=== PATIENT | female | born 1980 | race Hispanic/Latino ===

== ENCOUNTER 2017-03-17 09:09 | Inpatient (IN) | payer OTHER ==
[2017-03-17 09:10] VITALS: BMI 17.8
--- NOTE | 2017-03-17 11:05 | ED PDOC ---
Arrival/HPI - General Chief Complaint: Cough, Cold, Congestion Time Seen by Provider: 03/17/17 10:40 Historian: Patient - History of Present Illness Narrative History of Present Illness (Text): 03/17/17 11:07 36 y/o female, pmh including AIDS/Hep C/pneumonia/asthma vs. copd, allergic to penicillin only/Levaquin only, not allergic to macrolide or bactrim ds as she took these two class of medications before with no adverse/allergic reaction, c/ o coughing/wheezing/fever and shortness of breath x 1 week. Pt. stated that she has been having subjective low grade fever with cough for the past 1 week which later progress to wheezing and shortness of breath, not relief with the albuterol MDI/nebulizer at home, no leg swelling, no recent traveling for the past 6 weeks, no abdominal or pelvic pain, no dysuria, no vaginal bleeding, no other medical or psychological complaints. Pt. stated that she tried outpatient z-pack already for 1 week with no relief. Past Medical History - Provider Review Nursing Documentation Reviewed: Yes - Infectious Disease Hx of Infectious Diseases: None - Tetanus Immunization Tetanus Immunization: Unknown - Cardiac Hx Cardiac Disorders: No - Pulmonary Hx Respiratory Disorders: Yes Hx Asthma: Yes Hx Bronchitis: Yes Hx Chronic Obstructive Pulmonary Disease (COPD): Yes Hx Pneumonia: Yes - Neurological Hx Migraine: Yes - HEENT Hx Macular Degeneration: Yes - Renal Hx Renal Disorder: No - Endocrine/Metabolic Hx Endocrine Disorders: No - Hematological/Oncological Hx Blood Disorders: Yes Hx AIDS: Yes Hx Hepatitis C: Yes (IVDU) - Integumentary Hx Dermatological Disorder: Yes - Musculoskeletal/Rheumatological Hx Musculoskeletal Disorders: Yes Hx Back Pain: Yes Other/Comment: SCOLIOSIS - Gastrointestinal Hx Gastrointestinal Disorders: Yes Hx Nausea: Yes Hx Vomiting: Yes - Genitourinary/Gynecological Hx Genitourinary Disorders: Yes Hx Urinary Tract Infection: Yes - Psychiatric Hx Psychophysiologic Disorder: Yes Hx Anxiety: Yes Hx Substance Use: Yes (HEROIN, COCAINE) - Past Surgical History Past Surgical History: No Previous - Surgical History Other/Comment: right anterior neck SX - Anesthesia Hx Anesthesia: Yes - Suicidal Assessment Feels Threatened In Home Enviroment: No Family/Social History - Physician Review Nursing Documentation Reviewed: Yes Family/Social History: Unknown Family HX Smoking Status: Current Some Days Smoker Hx Alcohol Use: No Hx Substance Use: Yes (HEROIN, COCAINE) Substance used: herion, cocaine Hx Substance Use Treatment: No Allergies/Home Meds Allergies/Adverse Reactions: Allergies levofloxacin [From Levaquin] Allergy (Verified 03/17/17 10:46) RASH Penicillins Allergy (Verified 03/17/17 10:46) RASH flexeril Adverse Reaction (Uncoded 03/17/17 10:46) RASH Home Medications: Home Meds Medication Instructions Recorded Confirmed Methadone 110 mg PO DAILY 08/18/14 03/17/17 Albuterol 0.083% [Albuterol 0.083% 3 ml NEB Q4 PRN 03/17/17 03/17/17 Inhal Donna (2.5 mg/3 ml) UD] Elviteg/Emily/Emtric/Tenofo Ala 1 tab PO DAILY 03/17/17 03/17/17 [Genvoya Tablet] Ibuprofen [Motrin Tab] 800 mg PO TID 03/17/17 03/17/17 Review of Systems - Review of Systems Constitutional: Fatigue, Fevers Eyes: absent: Vision Changes ENT: absent: Hearing Changes Respiratory: SOB, Cough, Sputum, Wheezing Cardiovascular: absent: Chest Pain Gastrointestinal: absent: Abdominal Pain, Nausea, Vomiting Musculoskeletal: absent: Arthralgias, Back Pain, Neck Pain, Myalgias Skin: absent: Rash, Pruritis, Skin Lesions, Cellulitis, Other Neurological: absent: Dizziness, Focal Weakness, Gait Changes, Speech Changes, Facial Droop, Disequilibrium, Seizure Psychiatric: absent: Anxiety Physical Exam Vital Signs Reviewed: Yes Vital Signs Temp Pulse Resp BP Pulse Ox 03/17/17 16:02 75 18 122/63 98 03/17/17 14:25 79 18 124/65 98 03/17/17 13:47 89 18 126/67 98 03/17/17 12:33 98.7 F 97 H 18 128/69 98 03/17/17 11:21 102 H 18 132/72 97 03/17/17 10:05 99.1 F 105 H 19 88 L Temperature: Afebrile Blood Pressure: Normal Pulse: Tachycardic Respiratory Rate: Normal Appearance: Positive for: Well-Appearing, Non-Toxic, Ill-Appearing, Uncomfortable Pain Distress: None Mental Status: Positive for: Alert and Oriented X 3 - Systems Exam Head: Present: Atraumatic, Normocephalic Pupils: Present: PERRL Extroacular Muscles: Present: EOMI Conjunctiva: Present: Normal Mouth: Present: Moist Mucous Membranes Pharnyx: Present: Other (there is no obvious thrush noted on the back of the pharynx. ). No: ERYTHEMA, EXUDATE, TONSILS ENLARGED, Peritonsilar Swelling Neck: Present: Normal Range of Motion Respiratory/Chest: Present: Clear to Auscultation, Good Air Exchange, Wheezes, Decreased Breath Sounds, Rhonchi, Other (decreased aeration bilaterally with wheezing/rhonchis). No: Respiratory Distress, Accessory Muscle Use, Rales, Retracting, Tachypneic, Tender to Palpation Cardiovascular: Present: Regular Rate and Rhythm, Normal S1, S2, Other (no pedal edema). No: Murmurs Abdomen: Present: Normal Bowel Sounds. No: Tenderness, Distention, Peritoneal Signs, Rebound, Guarding Back: Present: Normal Inspection Upper Extremity: Present: Normal Inspection. No: Cyanosis, Edema Lower Extremity: Present: Normal Inspection. No: Edema Neurological: Present: GCS=15, CN II-XII Intact, Speech Normal Skin: Present: Warm, Dry, Normal Color. No: Rashes Psychiatric: Present: Alert, Oriented x 3, Normal Insight, Normal Concentration Medical Decision Making ED Course and Treatment: 03/17/17 11:05 -labs/ua/blood culture/d-dimer -ekg -chest xray -IV solumedrol/duoneb -insulator helper -will admit the patient 03/17/17 13:32 -Labs are non-significant, negative dimer -Chest x-ray show bilateral infiltrate which I am clinically concerning about PCP pneumonia, rocephine and bactrim ds ordered. -EKG show NSR @ 96 BPM, no ST elevation or depression, no T wave inversion. -Wheezing resolved, mild rhonchi resolved, discussed about the labs/radiology results, pt. agreed to be admitted. -Her ambulating oxygen was 88 on room air, after rest and while receiving nebulizer which it improved to 97% room air. 03/17/17 14:10 -I spoke to Dr. Carter, discussed about the case and he will accept the case, request Dr. Chou for routine consult. -I discussed with DR. Oh and he will put in the admission order. - Critical Care Critical Care Minutes: 30 minutes Critical Care Time: Excluding Proc Time, Unstable Narrative Critical Care (Text): 03/17/17 16:24 Hypoxic @ 88 Percent room air, nebulizer x 3 with solumedrol, insulator helper. - Lab Interpretations Lab Results: 03/17/17 11:40 03/17/17 11:40 Lab Results 03/17/17 11:40: D-Dimer, Quantitative 0.35 03/17/17 11:40: Sodium 138, Potassium 4.3, Chloride 106, Carbon Dioxide 26, Anion Gap 10, BUN 18, Creatinine 0.8, Est GFR ( Amer) > 60, Est GFR (Non- Af Amer) > 60, Random Glucose 81, Calcium 9.2, Total Bilirubin 0.4, AST 27, ALT 23, Alkaline Phosphatase 67, NT-Pro-B Natriuret Pep 188, Total Protein 8.4 H, Albumin 3.4, Globulin 5.0, Albumin/Globulin Ratio 0.7 L 03/17/17 11:40: WBC 5.3, RBC 4.02, Hgb 10.6 L, Hct 31.4 L, MCV 78.1 L, MCH 26.4 , MCHC 33.8, RDW 15.4 H, Plt Count 170, MPV 9.5, Gran % 72.7 H, Lymph % (Auto) 15.7 L, Arroyo % (Auto) 11.2 H, Eos % (Auto) 0.2 L, Baso % (Auto) 0.2, Gran # 3.83 , Lymph # 0.8 L, Arroyo # 0.6, Eos # 0.0, Baso # 0.01 I have reviewed the lab results: Yes Interpretation: No clinic. lab abnormalty - RAD Interpretation Radiology Orders: 03/17/17 10:56 CHEST PORTABLE [RAD] Stat bilateral infiltrate and bronchial thickening. Periodontal Assistant: Radiologist - EKG Interpretation EKG Interpretation (Text): 03/17/17 14:52 NSR @ 96 BPM, no ST elevation or depression, no T wave inversion. Interpreted by ED Physician: Yes Type: 12 lead EKG - Medication Orders Current Medication Orders: Discontinued Medications Albuterol/Ipratropium (Duoneb 3 Mg/0.5 Mg (3 Ml) Ud) 3 ml IH Q15M EDSON Stop: 03/17/17 11:31 Last Admin: 03/17/17 11:21 Dose: 3 ml Ceftriaxone Sodium (Rocephin) 1 gm IM STAT STA PRN Reason: Protocol Stop: 03/17/17 13:19 Last Admin: 03/17/17 14:24 Dose: 1 gm Sodium Chloride (Sodium Chloride 0.9%) 1,000 mls @ 250 mls/hr IV .Q4H STA Stop: 03/17/17 14:55 Last Admin: 03/17/17 12:08 Dose: Methylprednisolone (Solu-Medrol) 125 mg IM STAT STA Stop: 03/17/17 12:01 Last Admin: 03/17/17 12:05 Dose: 125 mg - PA / CROWN ATTACHER / Resident Statement /DO has reviewed & agrees with the documentation as recorded. Disposition/Present on Arrival - Present on Arrival Any Indicators Present on Arrival: No History of DVT/PE: No History of Uncontrolled Diabetes: No Urinary Catheter: No History of Decub. Ulcer: No History Surgical Site Infection Following: None - Disposition Have Diagnosis and Disposition been Completed?: Yes Diagnosis: HIV (human immunodeficiency virus infection), Pneumonia Disposition: HOSPITALIZED Disposition Time: 13:32 Patient Plan: Admission Patient Problems: Current Active Problems Problem Status Onset HIV (human immunodeficiency virus infection) Acute Pneumonia Acute Condition: STABLE
[2017-03-17] MEDS: Albuterol-Ipratrop 3 mg / 0.5 (3 ml) UD IH SCH ×2 (11:20→11:21)
[2017-03-17] MEDS: Sodium Chloride 0.9% 1,000 ML IV STA ×2 (11:21→12:08)
[2017-03-17 11:41] LABS: ADD MANUAL DIFF? NO
[2017-03-17 11:55] LABS: ALB/GLOB RATIO 0.7 (1.1-1.8); ALKALINE PHOSPHATASE 67 U/L (38-133); ALT/SGPT 23 U/L (7-56); AST/SGOT 27 U/L (15-39); BILIRUBIN,TOTAL 0.4 mg/dL (0.2-1.3); BLOOD UREA NITROGEN 18 mg/dL (7-21); CALCIUM 9.2 mg/dL (8.4-10.5); CARBON DIOXIDE 26 mmol/L (21-33); CHLORIDE 106 mmol/L (98-107); GFR AFRICAN-AMERICAN > 60; GLUCOSE,RANDOM 81 mg/dL (70-110); POTASSIUM 4.3 mmol/L (3.6-5.0); SODIUM 138 mmol/L (132-148); TOTAL PROTEIN 8.4 g/dL (5.8-8.3)
--- NOTE | 2017-03-17 12:35 | RAD ---
HISTORY: cough x 1 week COMPARISON: 12/30/2016 FINDINGS: LUNGS: There is peribronchial thickening and perihilar infiltrates bilaterally PLEURA: No significant pleural effusion identified, no pneumothorax apparent. CARDIOVASCULAR: Normal. OSSEOUS STRUCTURES: No significant abnormalities. VISUALIZED UPPER ABDOMEN: Normal. OTHER FINDINGS: None. IMPRESSION: There is peribronchial thickening and perihilar infiltrates bilaterally
[2017-03-17 12:40] LABS: BASO # 0.01 K/mm3 (0.0-2.0); BASO % 0.2 % (0.0-3.0); EOS % 0.2 % (1.5-5.0); GRAN # 3.83 (1.4-6.5); GRAN % 72.7 % (50.0-68.0); HEMATOCRIT 31.4 % (36.0-48.0); LYMPH # 0.8 (1.2-3.4); LYMPH % 15.7 % (22.0-35.0); MEAN CELL VOLUME 78.1 fL (80.0-105.0); MEAN CORPUSCULAR HEMOGLOBIN 26.4 pg (25.0-35.0); MEAN CORPUSCULAR HGB CONC 33.8 g/dl (31.0-37.0); MEAN PLATELET VOLUME 9.5 fl (7.0-11.0); MONO # 0.6 (0.1-0.6); MONO % 11.2 % (1.0-6.0); PLATELET COUNT 170 10^3/uL (120.0-450.0); RED CELL DISTRIBUTION WIDTH 15.4 % (11.5-14.5); WHITE BLOOD COUNT 5.3 10^3/ul (4.5-11.0)
[2017-03-17] MEDS ORDERED: Tmp-Smz 800 mg-160 mg DS Tab PO STA (13:18)
[2017-03-17] MEDS ORDERED: cefTRIAXone (Rocephin) 1 gm Inj IM STA (13:18)
--- NOTE | 2017-03-17 18:36 | CARD ---
APPROVED REPORT EKG Measurement Heart [id number] NV [id number] <Conclusion> Normal sinus rhythm Normal ECG
[2017-03-17] MEDS ORDERED: Arformoterol 15 mcg/2 ml Inh Sol IH SCH (20:00)
[2017-03-17] MEDS ORDERED: Pneumococcal 23-Valent Vaccine IM ONE (21:12)
[2017-03-17] MEDS: MethylPREDNISolone 40 mg Vial IV SCH (21:25)
[2017-03-17] MEDS ORDERED: MethylPREDNISolone 40 mg Vial IVP SCH (22:00)
[2017-03-18] MEDS ORDERED: guaiFENesin DM 200 mg-20 mg/10 ml UD PO STA (01:02)
[2017-03-18] MEDS: Levalbuterol 0.63 MG/3 ML Inhal Soln UD IH PRN (01:25)
[2017-03-18] MEDS: MethylPREDNISolone 40 mg Vial IV SCH ×2 (05:26→21:59)
[2017-03-18] MEDS: Arformoterol 15 mcg/2 ml Inh Sol IH SCH ×2 (08:13→19:32)
[2017-03-18] MEDS: Budesonide 0.5 mg/2 ml Inhal Susp UD IH SCH ×2 (08:14→19:32)
[2017-03-18] MEDS: Atovaquone 750 mg/5 ml Susp UD PO SCH ×2 (09:51→17:47)
[2017-03-18] MEDS ORDERED: Azithromycin 500MG/NS 250ml 500 MG/250 ML BAG IVPB SCH (10:00)
--- NOTE | 2017-03-18 10:56 | CT ---
PROCEDURE: CT Chest without contrast HISTORY: rule out pneumonia COMPARISON: 12/10/2016 TECHNIQUE: Contiguous axial images were obtained through the chest without intravenous contrast enhancement. Sagittal and coronal reconstructions were performed. Radiation dose (DLP): 191 mGy-cm. This CT exam was performed using one or more of the following dose reduction techniques: Automated exposure control, adjustment of the mA and/or kV according to patient size, and/or use of iterative reconstruction technique. FINDINGS: LUNGS: There is improvement in the previously seen multi focal pneumonia. There is persistent peribronchial thickening and minimal interstitial changes at the lung bases. There is some linear scarring at the right lung base. MEDIASTINUM: Unremarkable thoracic aorta. No aneurysm. Normal sized heart. Main pulmonary artery unremarkable. No vascular congestion. No lymphadenopathy. PLEURA: No pleural fluid. No pneumothorax. BONES: No fracture. No destructive lesion. UPPER ABDOMEN: Grossly unremarkable. OTHER FINDINGS: None. IMPRESSION: There is improvement in the previously seen multi focal pneumonia. There is persistent peribronchial thickening and minimal interstitial changes at the lung bases. There is some linear scarring at the right lung base.
[2017-03-18] MEDS: Vancomycin 1gm in NS 250ml 1 GM/250 ML BAG IVPB SCH ×2 (11:53→20:47)
--- NOTE | 2017-03-18 17:49 | CP.PCM.CON ---
History of Present Illness - History of Present Illness History of Present Illness: 36 year old female with PMH of HIV/AIDS with last CD4 count at [facility] is 1, VL 254,000, COPD, came in to [facility] complaining of 1 week history of cough and SOB with associated low grade fever. She has been trying nebulizers and albuterol but is still having shortness of breath. The patient denies headache or dizziness, no chest pain, no abdominal pain, no sore throat, no rhinorrhea, no dysuria, no diarrhea, no dysphagia. In the ED, CXR showed perihilar infiltrates and Infectious Diseases consult is requested to further evaluate and manage. Review of Systems - Review of Systems All systems: reviewed and no additional remarkable complaints except (as per HPIwazz) Past Patient History - Infectious Disease Hx of Infectious Diseases: None - Tetanus Immunizations Tetanus Immunization: Unknown - Past Social History Smoking Status: Current Some Days Smoker - CARDIAC Hx Cardiac Disorders: Yes (hypotension) - PULMONARY Hx Respiratory Disorders: Yes (has nebulizer machine at home) Hx Asthma: Yes Hx Bronchitis: Yes Hx Chronic Obstructive Pulmonary Disease (COPD): Yes Hx Pneumonia: Yes - NEUROLOGICAL Hx Migraine: Yes - HEENT Hx Macular Degeneration: Yes - RENAL Hx Chronic Kidney Disease: No - ENDOCRINE/METABOLIC Hx Endocrine Disorders: No - HEMATOLOGICAL/ONCOLOGICAL Hx Blood Disorders: Yes (blood transfusion) Hx AIDS: Yes Hx Hepatitis C: Yes (IVDU) - INTEGUMENTARY Hx Dermatological Problems: Yes - MUSCULOSKELETAL/RHEUMATOLOGICAL Hx Musculoskeletal Disorders: Yes Hx Back Pain: Yes Other/Comment: SCOLIOSIS - GASTROINTESTINAL Hx Gastrointestinal Disorders: Yes - GENITOURINARY/GYNECOLOGICAL Hx Genitourinary Disorders: Yes Hx Urinary Tract Infection: Yes - PSYCHIATRIC Hx Psychophysiologic Disorder: Yes Hx Anxiety: Yes Other/Comment: hx ivdu/cocaine stopped 6 yrs ago on methadone program, smokes 1 ppd has not smoked in 4 days - SURGICAL HISTORY Other/Comment: right anterior neck SX for abcesses bx neg - ANESTHESIA Hx Anesthesia: Yes Meds Allergies/Adverse Reactions: Allergies Allergy/AdvReac Type Severity Reaction Status Date / Time levofloxacin [From Levaquin] Allergy RASH Verified 03/17/17 10:46 Penicillins Allergy RASH Verified 03/17/17 10:46 flexeril AdvReac RASH Uncoded 03/17/17 10:46 - Medications Medications: Current Medications Arformoterol Tartrate (Brovana) 15 mcg IH [id number] EDSON Budesonide (Pulmicort Respules) 0.5 mg IH [id number] [facility] Doxycycline Hyclate 100 mg/ (Sodium Chloride) 100 mls @ 100 mls/hr IVPB Q12 EDSON PRN Reason: Protocol Levalbuterol HCl (Xopenex) 0.63 mg IH [id number] PRN PRN Reason: Shortness of Breath Methadone HCl (Methadone) 110 mg PO DAILY [facility] Methylprednisolone (Solu-Medrol) 40 mg IV Q8 EDSON Physical Exam - Constitutional Appears: Non-toxic, No Acute Distress - Head Exam Head Exam: NORMAL INSPECTION - ENT Exam ENT Exam: Mucous Membranes Moist - Neck Exam Neck exam: Negative for: Lymphadenopathy, Meningismus - Respiratory Exam Respiratory Exam: Decreased Breath Sounds - Cardiovascular Exam Cardiovascular Exam: +S1, +S2 - GI/Abdominal Exam GI & Abdominal Exam: Soft. absent: Tenderness Results - Vital Signs Recent Vital Signs: Last Vital Signs Temp 98.7 F 03/17/17 16:00 Pulse 75 03/17/17 16:02 Resp 18 03/17/17 16:02 BP 122/63 03/17/17 16:02 Pulse Ox 98 03/17/17 16:02 - Labs Result Diagrams: 03/17/17 11:40 03/17/17 11:40 Assessment & Plan - Assessment and Plan (Free Text) Assessment: Assessment R/O pneumonia in this patient with HIV/ AIDS, with probable acute bronchitis HIV/AIDS with last CD4 count 25 COPD Plan started patient on Vancomycin, Azactam and Doxycycline pending sputum cx, blood cx Asked patient to bring her supply of her Genvoya for her HIV continued Mepron for PCP prophylaxis; will also add Zithromax qweekly for ARCELIA prophylaxis Will monitor clinically
[2017-03-18] MEDS ORDERED: guaiFENesin 100 mg/5 ml Syrup UD PO PRN (18:36)
[2017-03-18] MEDS: Aztreonam 1 Gm in NS 100mL 100 ML IVPB SCH ×2 (19:58→22:00)
[2017-03-18] MEDS: Sodium Chloride 0.9% 1,000 ML IV SCH (23:20)
--- NOTE | 2017-03-19 03:07 | CON ---
DATE: 03/18/2017 REFERRING PHYSICIAN: Dr. Carter. REASON FOR CONSULT: Cough, shortness of breath and pneumonia. HISTORY OF PRESENT ILLNESS: This is a 36-year-old female with known history of chronic obstructive l isabel disease, HIV positive, active smoker, history of substance abuse in the remote past. According t o patient, she had been having rhinitis, cough and shortness of breath, came to ER, received IV and i nhaled bronchodilator, antibiotics with some benefit, but continued persistent and have admitting in the hospital. Presently, sitting on the side of the bed, having dinner. Cough, shortness of breath and sputum production. No hemoptysis, no hematemesis, no hematuria, no diarrhea reported. PAST MEDICAL HISTORY: AIDS, chronic obstructive pulmonary disease, recurrent pneumonia, last CD4 cou nt being 1. ALLERGIES: ALLERGIC TO multiple medications including PREDNISONE, LEVAQUIN, ZITHROMAX AND FLEXERIL. FAMILY HISTORY: No significant cardiopulmonary disease reported. SOCIAL HISTORY: She is an active smoker. Denies any alcohol use and has a past medical history sign ificant for substance abuse. MEDICATIONS: She is on Azactam 1 g IV q. 8 hours, Brovana 15 mcg inhaled twice a day, doxycycline 10 0 mg twice a day, Mepron 750 mg twice a day, methadone 10 mg daily, Pulmicort inhaled twice a day, Ro bitussin 100 mg q. 4 hours p.r.n., Solu-Medrol 40 mg q. 8 hours, vancomycin 1 g IV q. 12 hours, Xopen ex inhaler q. 6 hours. REVIEW OF SYSTEMS: No headache, rhinitis, postnasal drip, cough, sputum production and shortness of breath. No chest pain, no nausea, no vomiting, diarrhea. No leg pain or leg swelling. PHYSICAL EXAMINATION: GENERAL: Sitting up in a bed, mild to moderate distress secondary to cough. VITAL SIGNS: Temperature is 98, heart rate is 61, respiratory rate is 20, blood pressure 98/67, puls e of on 2 liter nasal cannula. HEENT: Moist mucous membrane. No ulcer or oral thrush noted. NECK: Supple. No JVD. LUNGS: Has scattered rhonchi and wheezing. HEART: S1, S2. ABDOMEN: Soft, nontender. No organomegaly. EXTREMITIES: There is no edema. NEUROLOGIC: Awake, alert, follows simple commands. LABORATORY DATA: Shows hemoglobin 10.6, hematocrit 31.4, WBC 5.3, platelet is 170. 0.35. Sod ium 138, potassium 4.3, chloride 106, bicarbonate 26, BUN 18, creatinine 0.8, glucose is 81, calcium 9.2. AST 27, ALT 23, alkaline phosphatase is 67, and albumin 3.4. Procalcitonin 0.05. Microbiology : Blood cultures have been negative. CAT scan of the chest done today shows improvement in the prev iously seen multifocal pneumonia and there is a persistent peribronchial thickening and minimal inter stitial changes in the lung bases. Also has some right base scarring. IMPRESSION AND PLAN: Chronic obstructive lung disease, may have multilobar pneumonia, AIDS, hepatiti s C, anemia. The patient seen by infectious disease and started on broad spectrum antibiotics coveri ng healthcare-associated organism. Continue IV and inhaled bronchodilator. Gastric prophylaxis. Se quential compression device to lower extremity. Cara Barajas MD cc: [phone] TT: 03/19/2017 03:07:12 Confirmation # [id number] Dictation # [id number] mn
[2017-03-19] MEDS: Aztreonam 1 Gm in NS 100mL 100 ML IVPB SCH ×4 (05:49→23:12)
[2017-03-19] MEDS: MethylPREDNISolone 40 mg Vial IV SCH ×4 (05:49→23:13)
[2017-03-19] MEDS: Arformoterol 15 mcg/2 ml Inh Sol IH SCH ×2 (07:35→19:45)
[2017-03-19] MEDS: Budesonide 0.5 mg/2 ml Inhal Susp UD IH SCH ×2 (07:35→19:45)
--- NOTE | 2017-03-19 08:17 | PN ---
DATE: 03/18/2017 MAIN COMPLAINT: The patient feels less short of breath, less wheezing. She feels better than day of admission. She has no chest pain, no hemoptysis, no nausea, vomiting. Afebrile. PHYSICAL EXAMINATION: VITAL SIGNS: Temperature 97.5, heart rate 61, blood pressure is 98/67, respirations 18, saturation 9 6% on 2 L, 93% on room air. HEAD AND NECK: Normal. No JVD, no thyromegaly. CHEST: Clear, no wheezing. CARDIAC: First sound, second sound normal. ABDOMEN: Soft, nontender. EXTREMITIES: No edema. NEUROLOGIC: Normal. LABORATORY DATA: The patient had D-dimer was negative and she had a serology, RPR was negative. IMPRESSION AND PLAN: 1. Community-acquired pneumonia. Seen by ID and pulmonary. Continue current therapy. The patient already started on IV steroids. She is getting 40 mg IV q. 8. Also, patient started on IV antibioti c, Azactam 1 gram IV q. 8 hours and vancomycin 1 gram q. 12 hours in addition to the mepron or atovaq uone 750 mg p.o. b.i.d. in addition to doxycycline 100 mg b.i.d. Continue current therapy. Follow u p the patient clinically. Continue inhaled and IV bronchodilators. 2. Acute chronic obstructive pulmonary disease exacerbation. Continue therapy as above. 3. Human immunodeficiency virus/acquired immunodeficiency syndrome conditions. Will hold off on any antiretroviral therapy and will follow up clinically. 4. The patient also has low blood pressure. Will start the patient on IV fluids normal saline at 80 mL per hour and monitor her blood pressure. The patient is eating. 5. Anemia, multifactorial. Will do further workup as outpatient. For now, continue current therapy . Follow up clinically with the other consultants. Macario Carter MD cc: [phone] TT: 03/19/2017 08:17:11 Confirmation # [id number] Dictation # [id number]
[2017-03-19] MEDS: Vancomycin 1gm in NS 250ml 1 GM/250 ML BAG IVPB SCH ×2 (09:24→20:35)
[2017-03-19] MEDS: Atovaquone 750 mg/5 ml Susp UD PO SCH ×2 (09:30→17:56)
[2017-03-19] MEDS: Pantoprazole 40 mg EC Tab PO SCH (09:30)
--- NOTE | 2017-03-19 09:49 | HP ---
A 36-year-old female came in with a complaint of shortness of breath and cough. HISTORY OF PRESENT ILLNESS: This is a 36-year-old female. The patient is on multiple retroviral med icines, came in with short of breath, wheezing, coughing for the last few days, seems to be getting w orse. The patient has a history of COPD, has a history of recurrent lung infection, pneumonia and sh e is on multiple HIV medicines. She has a history of atypical mycobacterial infections in the past a nd denied any hemoptysis, denied any chills, no nausea or vomiting. ALLERGIES: LEVOFLOXACIN AND PENICILLIN, FLEXERIL. HOME MEDICATIONS: The patient takes inhalers, methadone 110 mg p.o. daily, ibuprofen 800 three times a day. She also gets elvitegravir/cobicistat/emtricitabine/tenofovir/alafenamide which is Genvoya t ablets. She takes 1 tablet daily. She takes albuterol at home. REVIEW OF SYSTEMS: As I mentioned in the present illness, she is weak. She has no energy. She has history of drug addictions. She is on methadone. She feels weak, tired. Sometimes, she gets wheezi ng. Sometimes, she gets a cough. No rectal bleeding, no hematuria, no focal weakness. SOCIAL HISTORY: She lives by herself. She has a boyfriend. She has 1 son and she does not drink. She does have history of heroin and cocaine and current Wednesday smoker. PHYSICAL EXAMINATION: VITAL SIGNS: The patient has a temperature of 98.7, heart rate 90, blood pressure is 95/60, respirat ions 21, and ____ 95% on room air. HEAD AND NECK: Normal. No JVD, no thyromegaly. CHEST: Bilateral wheeze. CARDIAC: First sound, second sound normal. ABDOMEN: Soft, nontender. EXTREMITIES: No edema. NEUROLOGIC: Normal. LABORATORY DATA: On admission, white count 5.3, hemoglobin 10.6, hematocrit 31.4, platelets 170. So dium 138, potassium 4.3, chloride 106, bicarb 26, BUN 18, creatinine 0.8. Liver function test is nor mal. Total protein 8.4, lilian phos 67. ProBNP 188. The patient also had a chest x-ray which shows t here is peribronchial thickening and perihilar infiltrates bilaterally. Had an EKG which shows normal sinus rhythm, normal EKG. IMPRESSION AND PLAN: This is a 36-year-old female and the patient is on multiple medications. The p marialuisa is a smoker with history of recurrent pneumonia in the past, came in with cough, short of caryn th, wheezing. We will admit the patient with. 1. Community-acquired pneumonia. 2. Acute chronic obstructive pulmonary disease exacerbation. We will start the patient on IV steroi ds, inhaled bronchodilators, pulmonary consult in addition to infectious disease consult for evaluati on. We will put the patient on doxycycline for now. The patient will need further antibiotic. We w ill get the infectious disease consultation to continue coverage for her underlying pneumonia. She d oes have ALLERGY TO LEVOFLOXACIN AND PENICILLIN. 3. Human immunodeficiency virus. We will hold off on any antiretroviral therapy at least now and wi ll follow up with the infectious disease consult. 4. Chronic addiction problem. Continue methadone 110 mg p.o. daily. Continue current treatment. Macario Carter MD cc: [phone] TT: 03/19/2017 09:48:30 tn
--- NOTE | 2017-03-19 13:19 | CP.PCM.PN ---
Subjective - Date & Time of Evaluation Date of Evaluation: 03/19/17 Time of Evaluation: 12:30 - Subjective Subjective: Pt has very poor veins,neds iv access. Objective - Vital Signs/Intake and Output Vital Signs (last 24 hours): Temp Pulse Resp BP Pulse Ox 97.6 F 50 L 20 94/59 L 98 03/19/17 08:25 03/19/17 08:25 03/19/17 08:25 03/19/17 08:25 03/19/17 08:25 Intake and Output: 03/19/17 03/19/17 06:59 18:59 Intake Total 1640 Balance 1640 - Medications Medications: Current Medications Arformoterol Tartrate (Brovana) 15 mcg IH [id number] [facility] Last Admin: 03/19/17 07:35 Dose: 15 mcg Atovaquone (Mepron) 750 mg PO BID [facility] Last Admin: 03/19/17 09:30 Dose: 750 mg Budesonide (Pulmicort Respules) 0.5 mg IH [id number] [facility] Last Admin: 03/19/17 07:35 Dose: 0.5 mg Guaifenesin (Robitussin) 100 mg PO Q4H PRN PRN Reason: Cough Doxycycline Hyclate 100 mg/ (Sodium Chloride) 100 mls @ 100 mls/hr IVPB Q12 EDSON PRN Reason: Protocol Last Admin: 03/19/17 09:30 Dose: 100 mls/hr Aztreonam (Azactam 1 Gm) 100 mls @ 100 mls/hr IVPB Q8 EDSON PRN Reason: Protocol Stop: 03/25/17 08:46 Last Admin: 03/19/17 05:49 Dose: 100 mls/hr Vancomycin HCl (Vancomycin 1gm) 1 gm in 250 mls @ 167 mls/hr IVPB Q12H EDSON PRN Reason: Protocol Last Admin: 03/19/17 09:24 Dose: 167 mls/hr Sodium Chloride (Sodium Chloride 0.9%) 1,000 mls @ 80 mls/hr IV .[id number] [facility] Last Admin: 03/18/17 23:20 Dose: 80 mls/hr Levalbuterol HCl (Xopenex) 0.63 mg IH [id number] PRN PRN Reason: Shortness of Breath Last Admin: 03/18/17 01:25 Dose: 0.63 mg Methadone HCl (Methadone) 110 mg PO DAILY [facility] Last Admin: 03/19/17 09:24 Dose: 110 mg Methylprednisolone (Solu-Medrol) 40 mg IV Q8 [facility] Last Admin: 03/19/17 05:49 Dose: 40 mg Pantoprazole Sodium (Protonix Ec Tab) 40 mg PO 0730 [facility] Last Admin: 03/19/17 09:30 Dose: 40 mg - Constitutional Appears: No Acute Distress, In Acute Distress Assessment and Plan - Assessment and Plan (Free Text) Assessment: Poor venous access Plan: Hep lock inserted R upper arm. # 24 angiocath used.
[2017-03-19] MEDS: Sodium Chloride 0.9% 1,000 ML IV SCH (14:21)
--- NOTE | 2017-03-19 16:48 | CP.PCM.PN ---
Subjective - Date & Time of Evaluation Date of Evaluation: 03/19/17 Time of Evaluation: 11:15 - Subjective Subjective: Patient is still coughing but it is less, no fevers overnight. Objective - Vital Signs/Intake and Output Vital Signs (last 24 hours): Temp Pulse Resp BP Pulse Ox 97.6 F 50 L 20 94/59 L 98 03/19/17 08:25 03/19/17 08:25 03/19/17 08:25 03/19/17 08:25 03/19/17 08:25 Intake and Output: 03/19/17 03/19/17 06:59 18:59 Intake Total 1640 540 Balance 1640 540 - Medications Medications: Current Medications Arformoterol Tartrate (Brovana) 15 mcg IH [id number] [facility] Last Admin: 03/19/17 07:35 Dose: 15 mcg Atovaquone (Mepron) 750 mg PO BID [facility] Last Admin: 03/19/17 09:30 Dose: 750 mg Budesonide (Pulmicort Respules) 0.5 mg IH [id number] [facility] Last Admin: 03/19/17 07:35 Dose: 0.5 mg Guaifenesin (Robitussin) 100 mg PO Q4H PRN PRN Reason: Cough Doxycycline Hyclate 100 mg/ (Sodium Chloride) 100 mls @ 100 mls/hr IVPB Q12 EDSON PRN Reason: Protocol Last Admin: 03/19/17 09:30 Dose: 100 mls/hr Aztreonam (Azactam 1 Gm) 100 mls @ 100 mls/hr IVPB Q8 EDSON PRN Reason: Protocol Stop: 03/25/17 08:46 Last Admin: 03/19/17 15:10 Dose: 100 mls/hr Vancomycin HCl (Vancomycin 1gm) 1 gm in 250 mls @ 167 mls/hr IVPB Q12H EDSON PRN Reason: Protocol Last Admin: 03/19/17 09:24 Dose: 167 mls/hr Sodium Chloride (Sodium Chloride 0.9%) 1,000 mls @ 80 mls/hr IV .[id number] [facility] Last Admin: 03/19/17 14:21 Dose: 80 mls/hr Levalbuterol HCl (Xopenex) 0.63 mg IH [id number] PRN PRN Reason: Shortness of Breath Last Admin: 03/18/17 01:25 Dose: 0.63 mg Methadone HCl (Methadone) 110 mg PO DAILY [facility] Last Admin: 03/19/17 09:24 Dose: 110 mg Methylprednisolone (Solu-Medrol) 40 mg IV Q8 [facility] Last Admin: 03/19/17 15:09 Dose: 40 mg Pantoprazole Sodium (Protonix Ec Tab) 40 mg PO 0730 [facility] Last Admin: 03/19/17 09:30 Dose: 40 mg - Constitutional Appears: Non-toxic, No Acute Distress - Head Exam Head Exam: NORMAL INSPECTION - ENT Exam ENT Exam: Mucous Membranes Moist - Neck Exam Neck Exam: absent: Meningismus - Respiratory Exam Respiratory Exam: Decreased Breath Sounds, Rales (scattered), Wheezes ( expiratory) - Cardiovascular Exam Cardiovascular Exam: +S1, +S2 - GI/Abdominal Exam GI & Abdominal Exam: Soft. absent: Tenderness Assessment and Plan - Assessment and Plan (Free Text) Plan: Assessment consider healthcare-associated pneumonia in this patient with HIV/ AIDS, with probable acute bronchitis as well HIV/AIDS with last CD4 count 25 COPD Plan continue Vancomycin, Azactam and Doxycycline day 2; blood cx are negative Asked patient to bring her supply of her Genvoya for her HIV continued Mepron for PCP prophylaxis; will also add Zithromax qweekly for ARCELIA prophylaxis Will monitor clinically
--- NOTE | 2017-03-19 19:43 | PN ---
DATE: 03/19/2017 REFERRING PHYSICIAN: Dr. Carter. SUBJECTIVE: She is sitting at the side of the bed, having lunch. Night was unremarkable. Still has a cough and shortness of breath. No nausea, no vomiting, no diarrhea. No leg pain or leg swelling. OBJECTIVE: GENERAL: In no acute distress. VITAL SIGNS: Temperature is 98, heart rate is 50, respiratory rate is 20, blood pressure 94/59 and p ulse ox 98% on 2 liters nasal cannula. HEENT: Moist mucous membrane. No ulcer or oral thrush noted. NECK: Supple. No JVD. LUNGS: Has a prolonged expiratory phase with wheezing. HEART: S1, S2. ABDOMEN: Soft, nontender. No organomegaly. EXTREMITIES: There is no edema. NEUROLOGIC: Awake, alert, follows simple commands. MEDICATIONS: She is on Azactam 1 gram q.8 hours, Brovana 15 mcg inhaled twice a day, doxycycline 100 mg twice a day, Mepron 750 mg twice a day, methadone 110 mg daily, Protonix 40 mg daily, Pulmicort i nhaled twice a day, Robitussin 100 mg q.4 hours p.r.n., IV fluid normal saline at 80 mL per hour, Donna u-Medrol 40 mg IV q.8 hours, vancomycin 1 g IV q.12 hours, Xopenex inhaler q.6 hours, Zithromax 500 m g daily. LABORATORY DATA: Shows procalcitonin 0.05. Cryptococcus antigen is not detected. RPR is nonreactiv e. Microbiology: Blood cultures have been negative. Had a CAT scan of the chest done, which shows improvement in the previously seen multifocal pneumonia and there is a persistent peribronchial thick ening and minimal interstitial changes in both lung bases. IMPRESSION AND PLAN: Chronic obstructive lung disease, may have pneumonia, acquired immunodeficiency syndrome, hepatitis C, anemia. Continue IV and inhaled bronchodilator. Continue antibiotics. Chastity veena prophylaxis and deep venous thrombosis prophylaxis. The patient is urged to stop smoking. Thank you and will follow with you. Cara Barajas MD cc: [phone] TT: 03/19/2017 19:42:50 Confirmation # [id number] Dictation # [id number] dn
[2017-03-20] MEDS: Levalbuterol 0.63 MG/3 ML Inhal Soln UD IH PRN (03:14)
[2017-03-20] MEDS: MethylPREDNISolone 40 mg Vial IV SCH ×3 (06:03→22:10)
[2017-03-20] MEDS: Aztreonam 1 Gm in NS 100mL 100 ML IVPB SCH ×3 (06:03→22:17)
[2017-03-20] MEDS: Arformoterol 15 mcg/2 ml Inh Sol IH SCH ×2 (07:38→20:40)
[2017-03-20] MEDS: Budesonide 0.5 mg/2 ml Inhal Susp UD IH SCH ×2 (07:38→20:40)
[2017-03-20] MEDS: Acetylcysteine 20% Inhal Soln (4ml) IH SCH (08:00)
[2017-03-20] MEDS: Pantoprazole 40 mg EC Tab PO SCH (08:19)
[2017-03-20 08:47] VITALS: RESP 20
[2017-03-20] MEDS: Atovaquone 750 mg/5 ml Susp UD PO SCH ×2 (09:16→17:23)
[2017-03-20] MEDS: Vancomycin 1gm in NS 250ml 1 GM/250 ML BAG IVPB SCH ×2 (09:20→20:42)
[2017-03-20] MEDS: Sodium Chloride 0.9% 1,000 ML IV SCH ×2 (09:26→13:04)
[2017-03-20] MEDS ORDERED: Acetylcysteine 20% Inhal Sol (30ml) IH SCH (10:00)
[2017-03-20] MEDS: Enoxaparin 40 mg Syringe SC SCH (10:04)
--- NOTE | 2017-03-20 10:07 | PN ---
DATE: 03/19/2017 DATE: 03/19/2017. The patient complains of cough and phlegm ____. She complained of ____ and short of breath with mild exertion. She has no chest pain, no fever. PHYSICAL EXAMINATION: VITAL SIGNS: Temperature 98, heart rate 54, blood pressure 94/59, respirations 20, saturation 98%. HEAD AND NECK: Normal. No JVD, no thyromegaly. CARDIAC: First and second sounds normal. CHEST: No wheeze, but there is basial crepitations on the bases of both lungs. ABDOMEN: Soft, nontender. EXTREMITIES: No edema. NEUROLOGIC: Normal. LABORATORY DATA: Noted for procalcitonin 0.05. IMPRESSION AND PLAN: 1. Community-acquired pneumonia in a 36-year-old female with the acquired immune deficiency syndrome on multiple medications for human immunodeficiency virus. At this time we will continue current IV antibiotic. The patient is getting atovaquone or mepron 750 b.i.d. Continue on Azactam, vancomycin and doxycycline. 2. Chronic lung disease, chronic obstructive pulmonary disease, sputum production. We will give the patient Mucomyst. We will give IV fluid at 100 mL per hour. We will follow up clinically. 3. Human immunodeficiency virus status. The patient currently off any antiretroviral medications, se ems stable. Will continue current treatment. 4. Chronic addiction. Currently on methadone 110. Continue current treatment. Continue gastrointestinal and deep venous thrombosis prophylaxis. The patient also currently for [employer] D getting Solu-Medrol and she has Protonix for deep venous thrombosis prophylaxis. We will add also heparin subQ, or Lovenox. Macario Carter MD cc: [phone] TT: 03/20/2017 10:06:38 Confirmation # [id number] Dictation # [id number] sary
--- NOTE | 2017-03-20 12:14 | CP.PCM.PN ---
Subjective - Date & Time of Evaluation Date of Evaluation: 03/20/17 Time of Evaluation: 11:59 - Subjective Subjective: Patient has very poor veins.She needs iv access. Objective - Vital Signs/Intake and Output Vital Signs (last 24 hours): Temp Pulse Resp BP Pulse Ox 97.9 F 50 L 20 102/63 97 03/20/17 06:00 03/20/17 06:00 03/20/17 06:00 03/20/17 06:00 03/20/17 06:00 Intake and Output: 03/20/17 03/20/17 06:59 18:59 Intake Total 0 Balance 0 - Medications Medications: Current Medications Acetylcysteine (Acetylcysteine 20%) 3 ml IH BIDRESP EDSON Arformoterol Tartrate (Brovana) 15 mcg IH [id number] [facility] Last Admin: 03/20/17 07:38 Dose: 15 mcg Atovaquone (Mepron) 750 mg PO BID EDSON Last Admin: 03/20/17 09:16 Dose: 750 mg Azithromycin (Zithromax) 1,200 mg PO QWK EDSON PRN Reason: Protocol Budesonide (Pulmicort Respules) 0.5 mg IH [id number] [facility] Last Admin: 03/20/17 07:38 Dose: 0.5 mg Enoxaparin Sodium (Lovenox) 40 mg SC DAILY EDSON PRN Reason: Protocol Guaifenesin (Robitussin) 100 mg PO Q4H PRN PRN Reason: Cough Last Admin: 03/20/17 03:08 Dose: 100 mg Doxycycline Hyclate 100 mg/ (Sodium Chloride) 100 mls @ 100 mls/hr IVPB Q12 EDSON PRN Reason: Protocol Last Admin: 03/20/17 09:16 Dose: 100 mls/hr Aztreonam (Azactam 1 Gm) 100 mls @ 100 mls/hr IVPB Q8 EDSON PRN Reason: Protocol Stop: 03/25/17 08:46 Last Admin: 03/20/17 06:03 Dose: 100 mls/hr Vancomycin HCl (Vancomycin 1gm) 1 gm in 250 mls @ 167 mls/hr IVPB Q12H EDSON PRN Reason: Protocol Last Admin: 03/20/17 09:20 Dose: 167 mls/hr Sodium Chloride (Sodium Chloride 0.9%) 1,000 mls @ 80 mls/hr IV .[id number] [facility] Last Admin: 03/20/17 09:26 Dose: 80 mls/hr Levalbuterol HCl (Xopenex) 0.63 mg IH [id number] PRN PRN Reason: Shortness of Breath Last Admin: 03/20/17 03:14 Dose: 0.63 mg Methadone HCl (Methadone) 110 mg PO DAILY [facility] Last Admin: 03/20/17 09:17 Dose: 110 mg Methylprednisolone (Solu-Medrol) 40 mg IV Q8 [facility] Last Admin: 03/20/17 06:03 Dose: 40 mg Pantoprazole Sodium (Protonix Ec Tab) 40 mg PO 0730 [facility] Last Admin: 03/20/17 08:19 Dose: 40 mg - Constitutional Appears: No Acute Distress Assessment and Plan - Assessment and Plan (Free Text) Assessment: Poor venous access Plan: Hep lock inserted in the R wrist. # 24 angiocath used.
--- NOTE | 2017-03-20 14:02 | PN ---
DATE: 03/20/2017 The patient is in bed in no acute distress, nontoxic. PHYSICAL EXAMINATION: VITAL SIGNS: Temperature is 97, blood pressure is 102/60, respiratory rate of 20. HEENT: Unremarkable. NECK: Supple. LUNGS: Have decreased breath sounds. HEART: Normal S1, S2. ABDOMEN: Soft. LABORATORY DATA: Reveals a white count of 5.3, hemoglobin of 10, platelets of 170. Chemistries reve al the procal is 0.05. LFTs are normal. RPR is nonreactive. Crypt antigen is not detected. Microb iology reveals the blood cultures are negative. The sputum cultures are pending. The patient is currently on aztreonam and doxycycline, the doxycycline is IV. note is reviewed. ASSESSMENT AND PLAN: A 36-year-old with healthcare-associated pneumonia with positive human immunode ficiency virus and acquired immunodeficiency syndrome with acute bronchitis and a CD4 count of 25, en d-stage chronic obstructive pulmonary disease on Azactam and doxy day #3. The patient is on azithrom ycin once weekly for ARCELIA prophylaxis and mepron PCP prophylaxis. Her HIV medications she is not comp liant most of the time. In the past, she has had 254,000 HIV PCR. Overall prognosis is poor for thi s noncompliant patient. Cheikh Chou MD cc: 350 TT: 03/20/2017 14:02:15 Confirmation # [id number] Dictation # [id number] lul
--- NOTE | 2017-03-20 18:20 | PN ---
DATE: 03/20/2017 PULMONARY PROGRESS NOTE REFERRING PHYSICIAN: Dr. Carter. SUBJECTIVE: She is lying in the bed. Still having cough and shortness of breath. Overall, feels be tter. No nausea, no vomiting, no diarrhea. No leg pain or leg swelling. OBJECTIVE: GENERAL: No acute distress. VITAL SIGNS: Temperature is 98, heart rate , respiratory rate is 20, blood pressure 102/63, pul se ox 97% on nasal cannula. HEENT: Moist mucous membrane. No ulcer or oral thrush noted. NECK: Supple. No JVD. LUNGS: Prolonged expiratory phase with some wheezing. HEART: S1, S2. ABDOMEN: Soft, nontender. No organomegaly. EXTREMITIES: There is no edema. NEUROLOGIC: Awake, alert, follows simple commands. MEDICATIONS: He is on Mucomyst 20% inhaled 3 times a day, Azactam 1 g IV q. 8 hours, Brovana 15 mcg inhaled twice a day, doxycycline 100 mg twice a day, Lovenox 40 mg daily, Mepron 750 mg twice daily, methadone 110 mg daily, Protonix 40 mg daily, Robitussin 100 mg q. 4 hours p.r.n., IV fluid normal sa line 80 mL per hour, Solu-Medrol 40 mg q. 8 hours, vancomycin 1 g IV q. 12 hours, Xopenex inhaler q. 6 hours, Zithromax 500 mg daily. LABORATORY DATA: Reviewed and notated. No new lab is reported since yesterday, IMPRESSION AND PLAN: Chronic obstructive lung disease, has a pulmonary infiltrate, bronchiolitis, AI DS, hepatitis C, anemia. Pulmonary point of view, continue IV and inhaled bronchodilators, antibioti cs. Gastric prophylaxis, deep venous thrombosis prophylaxis. Fall precaution. Thank you and will f angelina with you. Cara Barajas MD cc: [phone] TT: 03/20/2017 18:20:07 Confirmation # [id number] Dictation # [id number] mn
--- NOTE | 2017-03-20 21:16 | CP.PCM.PN ---
Subjective - Date & Time of Evaluation Date of Evaluation: 03/20/17 Time of Evaluation: 21:15 - Subjective Subjective: Seen for back pain. States that she has pain in entire spine, has back pain for 10 years, has disc disease, does not know level, has scoliosis. She takes extra strength motrin for her back pain without mylanta. No weakness , no paraesthesia. This 36 year old woman was admitted sob, wheezing, cough/CPAP. Has PMH of HIV, hepatitis C, anemia, COPD, UTI, PCP PNA, candidiasis, heroine user, ex IVDA, on methadone. Objective - Vital Signs/Intake and Output Vital Signs (last 24 hours): Temp Pulse Resp BP Pulse Ox 97.9 F 50 L 20 102/63 97 03/20/17 06:00 03/20/17 06:00 03/20/17 06:00 03/20/17 06:00 03/20/17 06:00 - Medications Medications: Current Medications Acetylcysteine (Acetylcysteine 20%) 3 ml IH BIDRESP EDSON Arformoterol Tartrate (Brovana) 15 mcg IH [id number] [facility] Last Admin: 03/20/17 20:40 Dose: 15 mcg Atovaquone (Mepron) 750 mg PO BID EDSON Last Admin: 03/20/17 17:23 Dose: 750 mg Azithromycin (Zithromax) 1,200 mg PO QWK EDSON PRN Reason: Protocol Budesonide (Pulmicort Respules) 0.5 mg IH [id number] [facility] [place] Last Admin: 03/20/17 20:40 Dose: 0.5 mg Doxycycline Hyclate (Doryx) 100 mg PO Q12 [facility] [place] PRN Reason: Protocol Stop: 03/27/17 22:01 Enoxaparin Sodium (Lovenox) 40 mg SC DAILY EDSON PRN Reason: Protocol Last Admin: 03/20/17 10:04 Dose: 40 mg Guaifenesin (Robitussin) 100 mg PO Q4H PRN PRN Reason: Cough Last Admin: 03/20/17 03:08 Dose: 100 mg Aztreonam (Azactam 1 Gm) 100 mls @ 100 mls/hr IVPB Q8 EDSON PRN Reason: Protocol Stop: 03/25/17 08:46 Last Admin: 03/20/17 13:07 Dose: 100 mls/hr Vancomycin HCl (Vancomycin 1gm) 1 gm in 250 mls @ 167 mls/hr IVPB Q12H EDSON PRN Reason: Protocol Last Admin: 03/20/17 20:42 Dose: 167 mls/hr Sodium Chloride (Sodium Chloride 0.9%) 1,000 mls @ 80 mls/hr IV .[id number] [facility] [place] Last Admin: 03/20/17 13:04 Dose: 80 mls/hr Levalbuterol HCl (Xopenex) 0.63 mg IH [id number] PRN PRN Reason: Shortness of Breath Last Admin: 03/20/17 03:14 Dose: 0.63 mg Methadone HCl (Methadone) 110 mg PO DAILY [facility] [place] Last Admin: 03/20/17 09:17 Dose: 110 mg Methylprednisolone (Solu-Medrol) 40 mg IV Q8 [facility] [place] Last Admin: 03/20/17 13:06 Dose: 40 mg Pantoprazole Sodium (Protonix Ec Tab) 40 mg PO 0730 [facility] [place] Last Admin: 03/20/17 08:19 Dose: 40 mg - Constitutional Appears: Well, No Acute Distress - Head Exam Head Exam: ATRAUMATIC, NORMAL INSPECTION, NORMOCEPHALIC - Eye Exam Eye Exam: Normal appearance - ENT Exam ENT Exam: Normal External Ear Exam - Neck Exam Neck Exam: Normal Inspection - Respiratory Exam Respiratory Exam: NORMAL BREATHING PATTERN - Cardiovascular Exam Cardiovascular Exam: absent: JVD - GI/Abdominal Exam GI & Abdominal Exam: absent: Distended - Rectal Exam Rectal Exam: Deferred - Extremities Exam Extremities Exam: Normal Inspection - Back Exam Back Exam: NORMAL INSPECTION - Neurological Exam Neurological Exam: Alert, Oriented x3 - Psychiatric Exam Psychiatric exam: Normal Affect, Normal Mood - Skin Skin Exam: Normal Color Assessment and Plan - Assessment and Plan (Free Text) Assessment: Backpain. PNA. HIV. Hx hepatitis C Ex IVDA on methadone. Plan: Motrin 800 mg PO stat. Continue present management.
[2017-03-21] MEDS: MethylPREDNISolone 40 mg Vial IV SCH (05:49)
[2017-03-21] MEDS: Aztreonam 1 Gm in NS 100mL 100 ML IVPB SCH (05:51)
[2017-03-21] MEDS: Budesonide 0.5 mg/2 ml Inhal Susp UD IH SCH (07:49)
[2017-03-21] MEDS: Arformoterol 15 mcg/2 ml Inh Sol IH SCH (07:49)
[2017-03-21] MEDS: Acetylcysteine 20% Inhal Soln (4ml) IH SCH (07:49)
[2017-03-21] MEDS: Vancomycin 1gm in NS 250ml 1 GM/250 ML BAG IVPB SCH (08:35)
[2017-03-21] MEDS: Pantoprazole 40 mg EC Tab PO SCH (08:36)
[2017-03-21] MEDS: Sodium Chloride 0.9% 1,000 ML IV SCH (08:36)
[2017-03-21] MEDS: Atovaquone 750 mg/5 ml Susp UD PO SCH (09:09)
[2017-03-21] MEDS: Enoxaparin 40 mg Syringe SC SCH (09:09)
[2017-03-21 09:42] VITALS: BP 97/60; PULSE 46; TEMP 98.3; O2SAT 97
--- NOTE | 2017-03-21 11:08 | PN ---
DATE: 03/21/2017 The patient seen earlier today. She is complaining of weakness overall and no nausea or vomiting. S he is complaining of back pain that is chronic she states. PHYSICAL EXAMINATION: VITAL SIGNS: Temperature is 97, blood pressure is 120/70, respiratory rate of 16, heart rate of 50. HEENT: Unremarkable. NECK: Supple. LUNGS: Have decreased breath sounds. HEART: Normal S1, S2. ABDOMEN: Soft, nontender. LABORATORY EXAMINATION: Reveals a white count of 5.3, hemoglobin of 10, platelets of 170. Chemistri es reveals the patient's BUN of 18, creatinine of 0.8, procalcitonin 0.05. RPR is negative. Cryptoc occus antigen is not detected. Microbiology reveals the blood cultures are negative. The sputum cul tures are pending. The patient is on aztreonam and doxycycline and mepron, Solu-Medrol and IV vancomycin and the Zithrom ax q. weekly for ARCELIA prophylaxis. Dr. Mederos's note is reviewed. Dr. Barajas's note is reviewed. ASSESSMENT AND PLAN: A 36-year-old with a healthcare-associated pneumonia, positive human immunodefi ciency virus and acquired immunodeficiency syndrome with acute bronchitis with a CD4 count of 25, end -stage chronic obstructive lung disease, end-stage acquired immunodeficiency syndrome. Day #4 of Aza ctam, vancomycin and complaining of back pain, concerned about the back pain. She has had injection of the spine in the past. She states she does not want any MRI. She does not tolerate it. We will obtain a CT of the spine and will order a CT of the spine, cervical, thoracic and lumbar and a sed ra te, C-reactive protein and procalcitonin. The patient has been afebrile throughout this hospitalizat ion and has had negative blood cultures throughout this hospitalization. However, she is at risk for developing infection of the spine. She refused the MRI, which is what I offered her. However, she agreed to a CAT scan of the spine, but not an MRI. Less sensitive than MRI, however, will order a CT and follow up the results. Cheikh Chou MD cc: 350 TT: 03/21/2017 11:08:03 Confirmation # [id number] Dictation # [id number]
--- NOTE | 2017-03-21 12:12 | CT ---
PROCEDURE: CT Cervical Spine without contrast HISTORY: Pain. HIV, pneumonia COMPARISON: None available. TECHNIQUE: Axial computed tomography images were obtained of the cervical spine without the use of intravenous contrast. Coronal and sagittal reformatted images were created and reviewed. Radiation dose: Total exam DLP = 222 mGy-cm. This CT exam was performed using one or more of the following dose reduction techniques: Automated exposure control, adjustment of the mA and/or kV according to patient size, and/or use of iterative reconstruction technique. FINDINGS: VERTEBRAE: No fracture. Normal alignment. No destructive bony lesion. DISCS/SPINAL CANAL/NEURAL FORAMINA: No significant central canal or neural foraminal stenosis. Small calcified central disc protrusion at C7-T1. Doubtful significance PARASPINAL SOFT TISSUES: Unremarkable. OTHER FINDINGS: None. IMPRESSION: Unremarkable CT of the cervical spine.
--- NOTE | 2017-03-21 12:14 | CT ---
PROCEDURE: CT Thoracic Spine without contrast HISTORY: pain COMPARISON: None. TECHNIQUE: Axial computed tomography images were obtained of the thoracic spine without intravenous contrast. Coronal and sagittal reformatted images were created and reviewed. Radiation dose: Total exam DLP = 203 mGy-cm. This CT exam was performed using one or more of the following dose reduction techniques: Automated exposure control, adjustment of the mA and/or kV according to patient size, and/or use of iterative reconstruction technique. FINDINGS: VERTEBRAE: Unremarkable. No fracture. Normal alignment. DISCS/SPINAL CANAL/NEURAL FORAMINA: Within the limits of the CT technique, no disc herniation seen. No central canal or neural foraminal stenosis.. PARASPINAL SOFT TISSUES: Unremarkable. OTHER FINDINGS: Unremarkable. IMPRESSION: Unremarkable CT of the thoracic spine.
--- NOTE | 2017-03-21 12:20 | CT ---
PROCEDURE: CT Lumbar Spine without contrast HISTORY: pain COMPARISON: None. TECHNIQUE: Axial computed tomography images were obtained of the lumbar spine without the use of intravenous contrast. Coronal and sagittal reformatted images were created and reviewed. Radiation dose: Total exam DLP = 191 mGy-cm. This CT exam was performed using one or more of the following dose reduction techniques: Automated exposure control, adjustment of the mA and/or kV according to patient size, and/or use of iterative reconstruction technique. FINDINGS: VERTEBRAE: Unremarkable. No fracture. Normal alignment. DISCS/SPINAL CANAL/NEURAL FORAMINA: L1-2: Unremarkable. L2-3: Unremarkable. L3-4: Unremarkable. L4-5: Small left paracentral disc protrusion seen on image 71 series 4. L5-S1: Mild disc bulge PARASPINAL SOFT TISSUES: Unremarkable. OTHER FINDINGS: There is a small left-sided disc protrusion at T11-12 seen on axial image 8 series 4 IMPRESSION: Small left-sided disc protrusion at T11-12 Small left paracentral disc protrusion at L4-5 Mild disc bulge at L5-S1
--- NOTE | 2017-03-21 15:00 | CP.PCM.PN ---
Subjective - Date & Time of Evaluation Date of Evaluation: 03/21/17 Time of Evaluation: 14:27 - Subjective Subjective: Patient is being discharged today. As per request of Dr Chou,Rx given for Doxycycline 100 mg po daily for 7 days. As per request of Dr Barajas,pt given Rx for the following medications: 1.Ventolin HFA 2 puffs Q 4 H PRN for SOB 2.Protonix 40 mg po daily # 30 pills 3.Motrin 800 mg po q 8 h PRN for pain # 9 pills. 4.Prednisone 40 mg po daily for 3 days,then 30 mg po daily for 3days,then 20 mg po daily for 3 days then 10 mg po daily for 3 days. Pt is to follow up with PMD as advised. Objective - Vital Signs/Intake and Output Vital Signs (last 24 hours): Temp Pulse Resp BP Pulse Ox 98.3 F 46 L 20 97/60 L 97 03/21/17 06:00 03/21/17 06:00 03/21/17 06:00 03/21/17 06:00 03/21/17 06:00 Intake and Output: 03/21/17 03/21/17 06:59 18:59 Intake Total 1700 720 Balance 1700 720 - Medications Medications: Current Medications Acetylcysteine (Acetylcysteine 20%) 3 ml IH BIDRESP [facility] Last Admin: 03/21/17 07:49 Dose: Not Given Arformoterol Tartrate (Brovana) 15 mcg IH [id number] [facility] Last Admin: 03/21/17 07:49 Dose: 15 mcg Atovaquone (Mepron) 750 mg PO BID [facility] Last Admin: 03/21/17 09:09 Dose: 750 mg Azithromycin (Zithromax) 1,200 mg PO QWK [facility] PRN Reason: Protocol Budesonide (Pulmicort Respules) 0.5 mg IH [id number] [facility] Last Admin: 03/21/17 07:49 Dose: 0.5 mg Doxycycline Hyclate (Doryx) 100 mg PO Q12 [facility] PRN Reason: Protocol Stop: 03/27/17 22:01 Last Admin: 03/21/17 09:09 Dose: 100 mg Enoxaparin Sodium (Lovenox) 40 mg SC DAILY [facility] PRN Reason: Protocol Last Admin: 03/21/17 09:09 Dose: 40 mg Guaifenesin (Robitussin) 100 mg PO Q4H PRN PRN Reason: Cough Last Admin: 03/20/17 03:08 Dose: 100 mg Sodium Chloride (Sodium Chloride 0.9%) 1,000 mls @ 80 mls/hr IV .[id number] [facility] Last Admin: 03/21/17 08:36 Dose: 80 mls/hr Ibuprofen (Motrin Tab) 600 mg PO Q8H PRN PRN Reason: Pain, moderate (4-7) Last Admin: 03/21/17 14:23 Dose: 600 mg Levalbuterol HCl (Xopenex) 0.63 mg IH [id number] PRN PRN Reason: Shortness of Breath Last Admin: 03/20/17 03:14 Dose: 0.63 mg Methadone HCl (Methadone) 110 mg PO DAILY [facility] Stop: 03/27/17 08:00 Pantoprazole Sodium (Protonix Ec Tab) 40 mg PO 0730 [facility] Last Admin: 03/21/17 08:36 Dose: 40 mg Prednisone (Prednisone Tab) 40 mg PO ONCE ONE Stop: 03/22/17 14:13
--- NOTE | 2017-03-21 17:29 | PN ---
DATE: 03/21/2017 REFERRING PHYSICIAN: Dr. Carter. SUBJECTIVE: She is sitting up in bed, being discharged home today. Feels much better, decreased cou gh, decreased shortness of breath. No nausea, no vomiting, no diarrhea. No leg pain or leg swelling . OBJECTIVE: GENERAL: In no acute distress. VITAL SIGNS: Temp is 98, heart rate is 46, respiratory rate is 20, blood pressure 97/60, pulse ox 97 % on 2 liters nasal cannula. HEENT: Moist mucous membrane. Crowded airway. Mallampati score is 4. NECK: Supple. No JVD. LUNGS: Has a prolonged expiratory phase. HEART: S1 and S2. ABDOMEN: Soft, nontender. No organomegaly. EXTREMITIES: There is no edema. NEUROLOGIC: Awake, alert, follows simple command. MEDICATIONS: She is on Mucomyst twice a day, Brovana 15 mcg inhaled twice a day, doxycycline 1 00 mg twice a day, Lovenox 40 mg daily, Mepron 750 mg twice a day, methadone 110 mg daily, Motrin 600 mg q. 8 hours p.r.n., prednisone 40 mg daily, Protonix 40 mg daily, Pulmicort inhaled twice a day, R obitussin 100 mg q. 4 hours p.r.n., IV fluid normal saline 80 mL per hour, Zofran inhaled q. 6 hours p.r.n., Zithromax 1200 mg p.o. weekly. LABORATORY DATA: Reviewed and shows sed rate is 46. C-reactive protein is 1.2. MICROBIOLOGY: Blood culture and sputum culture: There is no growth. IMPRESSION AND PLAN: Chronic obstructive lung disease with pulmonary infiltrate, bronchiolitis, acqu ired immune deficiency syndrome, hepatitis C, anemia. From pulmonary point of view she is doing well . May go home with a tapering dose of steroids, inhaled bronchodilators. I urged patient to stop sm oking. We will request to have her follow with Dr. Carter the end of this week. Thank you and will follow with you. Cara Barajas MD cc: [phone] TT: 03/21/2017 17:28:19 Confirmation # [id number] Dictation # [id number] mn
--- NOTE | 2017-03-24 19:18 | DS ---
She came in with pneumonia and COPD exacerbation. The patient was seen by Dr. Barajas on the [facility] and was discharged home on doxycycline. The patient improved clinically. She complained of jessica k pain. CT of the cervical, lumbar and lumbosacral spine and thoracic spine was noted for disk disea se, otherwise no masses and no focal lesions. The patient was stable. Repeat chest x-ray showed im provement in the focal infiltrations. The patient clinically stable, was discharged home. PHYSICAL EXAMINATION: VITAL SIGNS: Stable, 98.3, heart rate 46/61 sinus bairon, blood pressure 121/72, saturating 100% on r oom air. HEAD AND NECK: On clinical exam there is no change, less wheezing. DISCHARGE DIAGNOSES: 1. Acute community-acquired pneumonia. 2. Acute chronic excerebration. 3. HIV disease. 5. Chronic addiction, on methadone. The patient was discharged on methadone 110. She was discharged Genvoya tablets for HIV, nebulizer t reatment, Protonix 40, ibuprofen p.r.n., doxycycline 100 b.i.d. for a week and inhalers as outpatient . Macario Carter MD cc: [phone] TT: 03/24/2017 19:17:48 me
== END 2017-03-21 17:20 | disposition home or self-care (01) | DRG 541 ==
LOC: ED 09:09 → ERH 14:32 → 3RNO 16:39
PROVIDERS: ADMIT Internal Medicine; ATTEND Internal Medicine
DX: J44.0 Chronic obstructive pulmonary disease with (acute) lower respiratory infection (principal); J18.9 Pneumonia, unspecified organism; B20 Human immunodeficiency virus [HIV] disease; F11.20 Opioid dependence, uncomplicated; B19.20 Unspecified viral hepatitis C without hepatic coma; J44.1 Chronic obstructive pulmonary disease with (acute) exacerbation; J20.9 Acute bronchitis, unspecified; J21.9 Acute bronchiolitis, unspecified; M41.9 Scoliosis, unspecified; F17.200 Nicotine dependence, unspecified, uncomplicated; D64.9 Anemia, unspecified; M54.9 Dorsalgia, unspecified; Z88.0 Allergy status to penicillin; Z91.19 Patient's noncompliance with other medical treatment and regimen

== ENCOUNTER 2017-04-28 09:31 | Emergency (ER) | payer OTHER ==
[2017-04-28 09:32] VITALS: BMI 17.8
[2017-04-28 09:54] VITALS: TEMP 98.1
--- NOTE | 2017-04-28 10:34 | ED PDOC ---
Arrival/HPI - General Chief Complaint: Cough, Cold, Congestion Time Seen by Provider: 04/28/17 10:06 Historian: Patient - History of Present Illness Narrative History of Present Illness (Text): 04/28/17 10:27 36yo female with medical history of HIV present with complaint of productive cough x 2weeks and fever. Notes that she took Ibuprofen this morning. she did not take any antitussive. Pt admits to multiple histories of Pneumonia. She denies SOB, sick contact, travel, any other complaint. She is on antiretroviral medications. Not sure of what her viral load is. Past Medical History - Provider Review Nursing Documentation Reviewed: Yes - Infectious Disease Hx of Infectious Diseases: None - Tetanus Immunization Tetanus Immunization: Unknown - Cardiac Hx Cardiac Disorders: Yes (hypotension) - Pulmonary Hx Respiratory Disorders: Yes (has nebulizer machine at home) Hx Asthma: Yes Hx Bronchitis: Yes Hx Chronic Obstructive Pulmonary Disease (COPD): Yes Hx Pneumonia: Yes - Neurological Hx Migraine: Yes - HEENT Hx Macular Degeneration: Yes - Renal Hx Renal Disorder: No - Endocrine/Metabolic Hx Endocrine Disorders: No - Hematological/Oncological Hx Blood Disorders: Yes (blood transfusion) Hx AIDS: Yes Hx Hepatitis C: Yes (IVDU) - Integumentary Hx Dermatological Disorder: Yes - Musculoskeletal/Rheumatological Hx Musculoskeletal Disorders: Yes Hx Back Pain: Yes Other/Comment: SCOLIOSIS - Gastrointestinal Hx Gastrointestinal Disorders: Yes - Genitourinary/Gynecological Hx Genitourinary Disorders: Yes Hx Urinary Tract Infection: Yes - Psychiatric Hx Psychophysiologic Disorder: Yes Hx Anxiety: Yes Hx Substance Use: No Other/Comment: hx ivdu/cocaine stopped 6 yrs ago on methadone program, smokes 1 ppd has not smoked in 4 days - Past Surgical History Past Surgical History: No Previous - Surgical History Other/Comment: right anterior neck SX for abcesses bx neg - Anesthesia Hx Anesthesia: Yes - Suicidal Assessment Feels Threatened In Home Enviroment: No Family/Social History - Physician Review Nursing Documentation Reviewed: Yes Family/Social History: Unknown Family HX Smoking Status: Light Smoker < 10 Cigarettes Daily Hx Alcohol Use: No Hx Substance Use: No Substance used: herion, cocaine Hx Substance Use Treatment: No Allergies/Home Meds Allergies/Adverse Reactions: Allergies levofloxacin [From Levaquin] Allergy (Verified 04/28/17 09:55) RASH Penicillins Allergy (Verified 04/28/17 09:55) RASH Sulfa (Sulfonamide Antibiotics) Allergy (Verified 04/28/17 09:55) ANAPHYLAXIS flexeril Adverse Reaction (Uncoded 04/28/17 09:55) RASH Home Medications: Home Meds Medication Instructions Recorded Confirmed Methadone 110 mg PO DAILY 08/18/14 04/28/17 Albuterol 0.083% [Albuterol 0.083% 3 ml NEB Q4 PRN 03/17/17 04/28/17 Inhal Donna (2.5 mg/3 ml) UD] Elviteg/Emily/Emtric/Tenofo Ala 1 tab PO DAILY 03/17/17 04/28/17 [Genvoya Tablet] Review of Systems - Physician Review All systems were reviewed & negative as marked: Yes - Review of Systems Constitutional: Normal Eyes: Normal ENT: Normal Respiratory: Cough, Sputum. absent: SOB, Wheezing Cardiovascular: Normal Gastrointestinal: Normal Genitourinary Female: Normal Musculoskeletal: Normal Skin: Normal Neurological: Normal Endocrine: Normal Hemo/Lymphatic: Normal Psychiatric: Normal Physical Exam Vital Signs Reviewed: Yes Vital Signs Temp Pulse Resp BP Pulse Ox 04/28/17 12:03 89 18 103/67 95 04/28/17 11:11 94 H 18 101/65 97 04/28/17 09:44 98.1 F 101 H 16 90/63 L 89 L Temperature: Afebrile Blood Pressure: Normal Pulse: Regular Respiratory Rate: Normal Appearance: Positive for: Non-Toxic, Comfortable, Cachectic Pain Distress: None Mental Status: Positive for: Alert and Oriented X 3 - Systems Exam Head: Present: Atraumatic, Normocephalic Pupils: Present: PERRL Extroacular Muscles: Present: EOMI Conjunctiva: Present: Normal Mouth: Present: Moist Mucous Membranes Neck: Present: Normal Range of Motion Respiratory/Chest: Present: Clear to Auscultation, Good Air Exchange, Rales. No : Respiratory Distress, Accessory Muscle Use, Wheezes, Decreased Breath Sounds, Retracting, Rhonchi, Tachypneic Cardiovascular: Present: Regular Rate and Rhythm, Normal S1, S2. No: Murmurs Abdomen: Present: Normal Bowel Sounds. No: Tenderness, Distention, Peritoneal Signs Back: Present: Normal Inspection Upper Extremity: Present: Normal Inspection. No: Cyanosis, Edema Lower Extremity: Present: Normal Inspection. No: Edema Neurological: Present: GCS=15, CN II-XII Intact, Speech Normal Skin: Present: Warm, Dry, Normal Color. No: Rashes Psychiatric: Present: Alert, Oriented x 3, Normal Insight, Normal Concentration Medical Decision Making ED Course and Treatment: 04/28/17 13:25 although pt appeared cachectic, this is her baseline. She was nontoxic and remained afebrile in ED. Lab was noted with elevated LFt and leukopenia secondary to her HIV disease. Her Chest xray was negative for Pneumonia. Pt smokes and was counselled and cigarette cessation. She was DC home with Doxycycline 200mg, Tessalon and Albuterol for URI. Referred to her PMD. Advised TRT ED for any new or worsening symptoms. - Lab Interpretations Lab Results: 04/28/17 10:30 04/28/17 10:30 Lab Results 04/28/17 10:30: PT 11.2, INR 1.04, APTT 31.7 H 04/28/17 10:30: Sodium 142, Potassium 3.9, Chloride 110, Carbon Dioxide 21, Anion Gap 15, BUN 20, Creatinine 0.9, Est GFR ( Amer) > 60, Est GFR (Non- Af Amer) > 60, Random Glucose 155 H, Calcium 9.3, Total Bilirubin 0.5, AST 311 H , ALT 130 H, Alkaline Phosphatase 82, Total Protein 8.7 H, Albumin 3.5, Globulin 5.2, Albumin/Globulin Ratio 0.7 L 04/28/17 10:30: WBC 3.5 L D, RBC 4.56, Hgb 12.0, Hct 36.1, MCV 79.2 L, MCH 26.3 , MCHC 33.2, RDW 16.3 H, Plt Count 87 L, MPV 9.7, Gran % 70.8 H, Lymph % (Auto) 8.8 L, Waller % (Auto) 17.0 H, Eos % (Auto) 3.1, Baso % (Auto) 0.3, Gran # 2.49, Lymph # 0.3 L, Waller # 0.6, Eos # 0.1, Baso # 0.01 - RAD Interpretation Radiology Orders: 04/28/17 10:18 CHEST TWO VIEWS (PA/LAT) [RAD] Stat - Medication Orders Current Medication Orders: Discontinued Medications Albuterol Sulfate (Albuterol 0.083% Inhal Donna (2.5 Mg/3 Ml) Ud) 2.5 mg IH STAT STA Stop: 04/28/17 10:36 Last Admin: 04/28/17 10:41 Dose: 2.5 mg Albuterol Sulfate (Albuterol 0.083% Inhal Donna (2.5 Mg/3 Ml) Ud) Confirm Administered Dose 2.5 mg .ROUTE .STK-MED ONE Stop: 04/28/17 10:41 Last Admin: 04/28/17 10:41 Dose: Doxycycline Hyclate (Doryx) 100 mg PO STAT STA PRN Reason: Protocol Stop: 04/28/17 13:00 Last Admin: 04/28/17 13:07 Dose: 100 mg Disposition/Present on Arrival - Present on Arrival Any Indicators Present on Arrival: No History of DVT/PE: No History of Uncontrolled Diabetes: No Urinary Catheter: No History of Decub. Ulcer: No History Surgical Site Infection Following: None - Disposition Have Diagnosis and Disposition been Completed?: Yes Diagnosis: Upper respiratory infection Disposition: HOME/ ROUTINE Disposition Time: 13:00 Patient Plan: Discharge Condition: STABLE Discharge Instructions (ExitCare): Acute Bronchitis (ED) Additional Instructions: Follow up with your doctor Return to ED for any new or worsening symptoms Prescriptions: Albuterol HFA [Ventolin HFA 90 mcg/actuation (8 g)] 2 puff IH [id number] #1 puff Benzonatate [Tessalon Perle] 100 mg PO TID #20 capsule Doxycycline Hyclate 100 mg PO BID #14 cap Referrals: Macario Carter MD [Primary Care Provider] - Follow up with primary
[2017-04-28] MEDS ORDERED: Albuterol 0.083% Inhal Sol (2.5 mg/3 mL) UD IH STA (10:35)
[2017-04-28] MEDS ORDERED: Albuterol 0.083% Inhal Sol (2.5 mg/3 mL) UD ONE (10:40)
[2017-04-28 10:51] LABS: BASO # 0.01 K/mm3 (0.0-2.0); BASO % 0.3 % (0.0-3.0); EOS # 0.1 (0.0-0.7); EOS % 3.1 % (1.5-5.0); GRAN # 2.49 (1.4-6.5); GRAN % 70.8 % (50.0-68.0); LYMPH # 0.3 (1.2-3.4); LYMPH % 8.8 % (22.0-35.0); MEAN CELL VOLUME 79.2 fL (80.0-105.0); MEAN CORPUSCULAR HEMOGLOBIN 26.3 pg (25.0-35.0); MEAN CORPUSCULAR HGB CONC 33.2 g/dl (31.0-37.0); MEAN PLATELET VOLUME 9.7 fl (7.0-11.0); MONO # 0.6 (0.1-0.6); PLATELET COUNT 87 10^3/uL (120.0-450.0); RBC 4.56 10^6/uL (3.5-6.1); RED CELL DISTRIBUTION WIDTH 16.3 % (11.5-14.5); WHITE BLOOD COUNT 3.5 10^3/ul (4.5-11.0)
[2017-04-28 11:07] LABS: INR 1.04 (0.93-1.08); PARTIAL THROMBOPLASTIN TIME 31.7 Seconds (23.7-30.8); PROTHROMBIN TIME 11.2 Seconds (9.9-11.8)
[2017-04-28 11:11] VITALS: RESP 18
[2017-04-28 11:17] LABS: ALB/GLOB RATIO 0.7 (1.1-1.8); ALBUMIN 3.5 g/dL (3.0-4.8); ALT/SGPT 130 U/L (7-56); AST/SGOT 311 U/L (15-39); BLOOD UREA NITROGEN 20 mg/dL (7-21); CALCIUM 9.3 mg/dL (8.4-10.5); GFR AFRICAN-AMERICAN > 60; GFR NON-AFRICAN AMERICAN > 60
[2017-04-28 12:04] VITALS: BP 103/67; PULSE 89; O2SAT 95
--- NOTE | 2017-04-28 12:35 | RAD ---
HISTORY: cough COMPARISON: 03/17/2017 TECHNIQUE: Chest PA and lateral FINDINGS: LUNGS: There is mild peribronchial thickening decreased from the previous study. No evidence of pneumonia PLEURA: No significant pleural effusion identified. No pneumothorax apparent. CARDIOVASCULAR: Normal. OSSEOUS STRUCTURES: No significant abnormalities. VISUALIZED UPPER ABDOMEN: Normal. OTHER FINDINGS: None. IMPRESSION: There is mild peribronchial thickening decreased from the previous study. No evidence of pneumonia
== END 2017-04-28 13:12 | disposition home or self-care (01) ==
LOC: ED 09:31
DX: J06.9 Acute upper respiratory infection, unspecified (principal); Z72.0 Tobacco use

== ENCOUNTER 2017-07-06 08:58 | Inpatient (IN) | payer OTHER ==
[2017-07-06 09:07] VITALS: BMI 17.6
--- NOTE | 2017-07-06 09:58 | RAD ---
HISTORY: Sepsis Patient COMPARISON: 04/28/2017 FINDINGS: LUNGS: Minimal interstitial infiltrate in the right lung base which was not present on the previous study. This could represent an early pneumonia PLEURA: No significant pleural effusion identified, no pneumothorax apparent. CARDIOVASCULAR: Normal. OSSEOUS STRUCTURES: No significant abnormalities. VISUALIZED UPPER ABDOMEN: Normal. OTHER FINDINGS: None. IMPRESSION: Minimal interstitial infiltrate in the right lung base which was not present on the previous study. This could represent an early pneumonia
--- NOTE | 2017-07-06 10:06 | ED PDOC ---
Arrival/HPI - General Chief Complaint: Cough, Cold, Congestion Time Seen by Provider: 07/06/17 09:12 - History of Present Illness Narrative History of Present Illness (Text): 07/06/17 09:15 A 37 year old female, whose past medical history includes HIV, asthma, and COPD , presents to the emergency department complaining of cough, congestion, and vomiting for 1 week. Patient reports she visited her PMD was given amoxicillin , but has had no relief of symptoms. Also, patient mentions when drinking fluids , her mouth and throat feel dry. Patient notes experiencing fever at night, weakness, cough with thick, dark brown sputum, but denies of any other complaints. PMD: Dr. Carter Past Medical History - Provider Review Nursing Documentation Reviewed: Yes - Infectious Disease Hx of Infectious Diseases: None - Tetanus Immunization Tetanus Immunization: Unknown - Reproductive Menopause: Yes - Cardiac Hx Cardiac Disorders: Yes Hx Hypotension: Yes - Pulmonary Hx Respiratory Disorders: Yes (has nebulizer machine at home) Hx Asthma: Yes Hx Bronchitis: Yes Hx Chronic Obstructive Pulmonary Disease (COPD): Yes Hx Pneumonia: Yes - Neurological Hx Migraine: Yes - HEENT Hx Macular Degeneration: Yes - Renal Hx Renal Disorder: No - Endocrine/Metabolic Hx Endocrine Disorders: No - Hematological/Oncological Hx Blood Disorders: Yes (blood transfusion) Hx Hepatitis C: Yes (IVDU) - Integumentary Hx Dermatological Disorder: Yes - Musculoskeletal/Rheumatological Hx Musculoskeletal Disorders: Yes Hx Back Pain: Yes Other/Comment: SCOLIOSIS - Gastrointestinal Hx Gastrointestinal Disorders: Yes - Genitourinary/Gynecological Hx Genitourinary Disorders: Yes Hx Urinary Tract Infection: Yes - Psychiatric Hx Psychophysiologic Disorder: Yes Hx Anxiety: Yes Hx Substance Use: No Other/Comment: hx ivdu/cocaine stopped 6 yrs ago on methadone program, smokes 1 ppd has not smoked in 4 days - Past Surgical History Past Surgical History: No Previous - Surgical History Other/Comment: right anterior neck SX for abcesses bx neg - Anesthesia Hx Anesthesia: Yes Hx Anesthesia Reactions: No - Suicidal Assessment Feels Threatened In Home Enviroment: No Family/Social History - Physician Review Nursing Documentation Reviewed: Yes Family/Social History: No Known Family HX Smoking Status: Light Smoker < 10 Cigarettes Daily Hx Alcohol Use: No Hx Substance Use: No Substance used: herion, cocaine Hx Substance Use Treatment: No Allergies/Home Meds Allergies/Adverse Reactions: Allergies levofloxacin [From Levaquin] Allergy (Verified 07/06/17 13:36) RASH Penicillins Allergy (Verified 07/06/17 13:36) RASH flexeril Adverse Reaction (Uncoded 07/06/17 13:36) RASH Home Medications: Home Meds Medication Instructions Recorded Confirmed Elviteg/Emily/Emtric/Tenofo Ala 1 tab PO DAILY 03/17/17 07/06/17 [Genvoya Tablet] Amoxicillin [Amoxil 250 mg Cap] 2 tab PO DAILY 07/06/17 07/06/17 Darunavir [Prezista] 800 mg PO DAILY 07/06/17 07/06/17 Sulfamethoxazole/Trimethoprim 1 tab PO DAILY 07/06/17 07/06/17 [Bactrim DS Tab] Review of Systems - Physician Review All systems were reviewed & negative as marked: Yes - Review of Systems Constitutional: Fevers (only at night), Other (weakness). absent: Night Sweats ENT: Sinus Congestion Respiratory: Cough, Sputum (thick, dark brown mucus). absent: SOB Gastrointestinal: Vomiting. absent: Nausea Physical Exam Vital Signs Reviewed: Yes Vital Signs Temp Pulse Resp BP Pulse Ox 07/06/17 12:22 100 H 07/06/17 12:15 70 18 102/52 L 95 07/06/17 11:08 87 18 94/65 L 98 07/06/17 10:49 84 18 95/63 L 96 07/06/17 09:09 99.1 F 106 H 21 109/53 L 95 Temperature: Afebrile Blood Pressure: Normal Pulse: Tachycardic Respiratory Rate: Normal Appearance: Positive for: Well-Appearing Pain Distress: None Mental Status: Positive for: Alert and Oriented X 3 - Systems Exam Head: Present: Atraumatic, Normocephalic Pupils: Present: PERRL Extroacular Muscles: Present: EOMI Conjunctiva: Present: Normal Mouth: Present: Dry Neck: Present: Normal Range of Motion Respiratory/Chest: Present: Wheezes (diffused wheezing) Cardiovascular: Present: Tachycardic Abdomen: Present: Normal Bowel Sounds. No: Tenderness, Distention, Peritoneal Signs Back: Present: Normal Inspection Upper Extremity: Present: Normal Inspection. No: Cyanosis, Edema Lower Extremity: Present: Normal Inspection. No: Edema Neurological: Present: GCS=15, CN II-XII Intact, Speech Normal Skin: Present: Warm, Dry, Normal Color. No: Rashes Psychiatric: Present: Alert, Oriented x 3, Normal Insight, Normal Concentration Medical Decision Making ED Course and Treatment: 07/06/17 09:25 Impression: 37 year old female with cough, congestion, and vomiting. Physical exam shows diffused wheezing, rhonchi; mucous membranes dry; tachycardic Differential Diagnosis included but are not limited to: COPD exacerbation r/o Pneumonia in an HIV patient. Plan: -- EKG -- Chest X-ray -- Urinalysis -- Labs -- Blood Gas -- Aztreonam -- Albuterol -- Vancomycin -- Methylprednisolone -- IV Fluids -- Urine Culture -- Blood Culture -- Reassess and disposition Prior Visits: Notes and results from previous visits were reviewed. Patient was last seen in the emergency department on 04/28/2017 for productive cough. Patient was discharged home. Progress Notes: EKG: Ordered, reviewed, and independently interpreted the EKG. Rate : 102 BPM Rhythm : Sinus tachycardia Interpretation : No ST-segment elevations or depressions, no T-wave inversions, normal intervals. Comparison : No previous EKG for comparison. 07/06/2017 09:56 Chest X-ray IMPRESSION: Minimal interstitial infiltrate in the right lung base which was not present on the previous study. This could represent an early pneumonia. Dictator : Dimas Malcolm MD 07/06/17 11:16 Patient's CXR shows PNA and patient is treated with Aztreonam and Vancomycin IV which she was treated before for. She has allergies to Levofloxacin and PCN. Dr. Carter states to admit to the hospitalist. Case discussed with Dr. Claire who will place the patient under her service. - Lab Interpretations Lab Results: 07/06/17 10:03 07/06/17 10:03 Lab Results 07/06/17 10:30: Retic Count 1.01 07/06/17 10:25: Urine Color Yellow, Urine Appearance Sl cloudy, Urine pH 6.5, Ur Specific [place] 1.025, Urine Protein >=300 H, Urine Glucose (UA) Negative, Urine Ketones Negative, Urine Blood Trace-intact H, Urine Nitrate Negative, Urine Bilirubin Negative, Urine Urobilinogen 1.0 H, Ur Leukocyte Esterase Negative, Urine RBC 0 - 2, Urine WBC 1 - 3, Ur Epithelial Cells 4 - 5 07/06/17 10:03: Sodium 138, Chloride 107, Potassium 4.1, Carbon Dioxide 26, Anion Gap 9 L, BUN 19, Creatinine 0.8, Est GFR ( Amer) > 60, Est GFR (Non -Af Amer) > 60, Random Glucose 94, Calcium 8.5, Phosphorus 3.3, Magnesium 1.9, Total Bilirubin 0.3, AST 131 H, ALT 76 H, Alkaline Phosphatase 63, Total Protein 7.2, Albumin 3.2, Globulin 4.0, Albumin/Globulin Ratio 0.8 L 07/06/17 10:03: pO2 96 H, VBG pH 7.29 L, VBG pCO2 58.0, VBG HCO3 27.9, VBG Total CO2 29.7 H, VBG O2 Sat (Calc) 98.2 H, VBG Base Excess 0.5, VBG Potassium 4.4, Sodium 137.0, Chloride 109.0 H, Glucose 100, Lactate 0.7, FiO2 21.0, Venous Blood Potassium 4.4 07/06/17 10:03: PT 10.8, INR 1.00, APTT 36.4 H 07/06/17 10:03: WBC 3.1 L, RBC 4.00, Hgb 10.5 L, Hct 32.1 L, MCV 80.3, MCH 26.3 , MCHC 32.7, RDW 16.3 H, Plt Count 77 L, MPV 11.2 H, Gran % 70.5 H, Lymph % ( Auto) 11.5 L, [place] % (Auto) 12.1 H, Eos % (Auto) 5.6 H, Baso % (Auto) 0.3, Gran # 2.15, Lymph # 0.4 L, [place] # 0.4, Eos # 0.2, Baso # 0.01 I have reviewed the lab results: Yes Interpretation: Abnormal lab values (pancytopenia) - RAD Interpretation Radiology Orders: 07/06/17 09:21 CHEST PORTABLE [RAD] Stat CXR +PNA Branch Lending Manager: ED Physician - Medication Orders Current Medication Orders: Acetaminophen (Tylenol 325mg Tab) 650 mg PO Q6 PRN PRN Reason: Fever >100.4 F Albuterol/Ipratropium (Duoneb 3 Mg/0.5 Mg (3 Ml) Ud) 3 ml IH Q8 [facility] Last Admin: 07/06/17 13:42 Dose: 3 ml Albuterol/Ipratropium (Duoneb 3 Mg/0.5 Mg (3 Ml) Ud) 3 ml IH Q2 PRN PRN Reason: Shortness of Breath Atovaquone (Mepron) 750 mg PO BID [facility] Stop: 07/15/17 18:01 Sodium Chloride (Sodium Chloride 0.9%) 1,000 mls @ 100 mls/hr IV .Q10H [facility] Last Admin: 07/06/17 12:17 Dose: 100 mls/hr Azithromycin (Zithromax 500mg In Ns) 500 mg in 250 mls @ 167 mls/hr IVPB DAILY [facility] PRN Reason: Protocol Aztreonam (Azactam 1 Gm) 100 mls @ 100 mls/hr IV Q8 [facility] PRN Reason: Protocol Stop: 07/15/17 14:01 Vancomycin HCl (Vancomycin 1gm) 1 gm in 250 mls @ 167 mls/hr IVPB Q12H [facility] PRN Reason: Protocol Stop: 07/15/17 13:31 Ondansetron HCl (Zofran Inj) 4 mg IVP Q6 PRN PRN Reason: Nausea/Vomiting Pantoprazole Sodium (Protonix Ec Tab) 40 mg PO 0600 [facility] Discontinued Medications Albuterol/Ipratropium (Duoneb 3 Mg/0.5 Mg (3 Ml) Ud) 3 ml IH Q15M [facility] Stop: 07/06/17 10:01 Last Admin: 07/06/17 11:20 Dose: 3 ml Sodium Chloride 1,540 ml/ IV (SUPPLIES) 1,540 mls @ 3,075.36 mls/hr IV ONCE ONE PRN Reason: 60 ML/KG/HR Stop: 07/06/17 09:21 Last Admin: 07/06/17 11:08 Dose: 3,075.36 mls/hr Aztreonam (Azactam 2 Gm) 100 mls @ 100 mls/hr IVPB STAT STA PRN Reason: Protocol Stop: 07/06/17 11:09 Last Admin: 07/06/17 11:08 Dose: 100 mls/hr Vancomycin HCl (Vancomycin 1gm) 1 gm in 250 mls @ 167 mls/hr IVPB STAT STA PRN Reason: Protocol Stop: 07/06/17 11:40 Last Admin: 07/06/17 12:42 Dose: 167 mls/hr Methylprednisolone (Solu-Medrol) 125 mg IVP STAT STA Stop: 07/06/17 09:25 Last Admin: 07/06/17 10:50 Dose: 125 mg Pneumococcal Polyvalent Vaccine (Pneumovax 23 Vaccine) 0.5 ml IM .ONCE ONE Stop: 07/06/17 14:22 - Scribe Statement The provider has reviewed the documentation as recorded by the Kobe Parsons Provider Scribe Attestation: All medical record entries made by the Kobe were at my direction and personally dictated by me. I have reviewed the chart and agree that the record accurately reflects my personal performance of the history, physical exam, medical decision making, and the department course for this patient. I have also personally directed, reviewed, and agree with the discharge instructions and disposition. Disposition/Present on Arrival - Present on Arrival Any Indicators Present on Arrival: No History of DVT/PE: No History of Uncontrolled Diabetes: No Urinary Catheter: No History of Decub. Ulcer: No History Surgical Site Infection Following: None - Disposition Have Diagnosis and Disposition been Completed?: Yes Diagnosis: HIV (human immunodeficiency virus infection), Pneumonia Disposition: HOSPITALIZED Disposition Time: 11:16 Patient Plan: Admission Condition: GUARDED
[2017-07-06] MEDS ORDERED: Aztreonam 2 Gm in NS 100mL 100 ML IVPB STA (10:10)
[2017-07-06] MEDS ORDERED: Vancomycin 1gm in NS 250ml 1 GM/250 ML BAG IVPB STA (10:11)
[2017-07-06 10:32] LABS: BASO # 0.01 K/mm3 (0.0-2.0); BASO % 0.3 % (0.0-3.0); EOS # 0.2 (0.0-0.7); EOS % 5.6 % (1.5-5.0); GRAN # 2.15 (1.4-6.5); GRAN % 70.5 % (50.0-68.0); HEMATOCRIT 32.1 % (36.0-48.0); LYMPH # 0.4 (1.2-3.4); LYMPH % 11.5 % (22.0-35.0); MEAN CELL VOLUME 80.3 fl (80.0-105.0); MEAN CORPUSCULAR HEMOGLOBIN 26.3 pg (25.0-35.0); MEAN CORPUSCULAR HGB CONC 32.7 g/dl (31.0-37.0); MEAN PLATELET VOLUME 11.2 fl (7.0-11.0); MONO # 0.4 (0.1-0.6); MONO % 12.1 % (1.0-6.0); RED CELL DISTRIBUTION WIDTH 16.3 % (11.5-14.5); WHITE BLOOD COUNT 3.1 10^3/ul (4.5-11.0)
[2017-07-06 10:34] LABS: PH,URINE 6.5 (4.7-8.0); URINE BILIRUBIN NEGATIVE (NEGATIVE); URINE BLOOD TRACE-INTACT (NEGATIVE); URINE GLUCOSE (UA) NEGATIVE (NEGATIVE); URINE KETONE NEGATIVE (NEGATIVE); URINE LEUKOCYTE ESTERASE NEGATIVE Leu/uL (NEGATIVE); URINE PROTEIN >=300 mg/dL (<30 mg/dL)
[2017-07-06 10:35] LABS: ALB/GLOB RATIO 0.8 (1.1-1.8); ALKALINE PHOSPHATASE 63 U/L (38-126); ALT/SGPT 76 U/L (7-56); AST/SGOT 131 U/L (14-36); BILIRUBIN,TOTAL 0.3 mg/dL (0.2-1.3); BLOOD UREA NITROGEN 19 mg/dL (7-21); CALCIUM 8.5 mg/dL (8.4-10.5); CARBON DIOXIDE 26 mmol/L (21-33); CHLORIDE 107 mmol/L (98-107); GFR AFRICAN-AMERICAN > 60; GLUCOSE,RANDOM 94 mg/dL (70-110); MAGNESIUM 1.9 mg/dL (1.7-2.2); PHOSPHOROUS 3.3 mg/dL (2.5-4.5); POTASSIUM 4.1 mmol/L (3.6-5.0); SODIUM 138 mmol/L (132-148); TOTAL PROTEIN 7.2 g/dL (5.8-8.3)
[2017-07-06 10:39] LABS: URINE APPEARANCE SL CLOUDY (CLEAR); URINE COLOR YELLOW (YELLOW)
[2017-07-06 10:39] LABS: PARTIAL THROMBOPLASTIN TIME 36.4 Seconds (23.7-30.8); VENOUS BLOOD GAS BASE EXCESS 0.5 mmol/L (0.0-2.0); VENOUS BLOOD PH 7.29 (7.32-7.43)
[2017-07-06 10:48] LABS: URINE RBC 0 - 2 /hpf (0-2)
[2017-07-06] MEDS: Albuterol-Ipratrop 3 mg / 0.5 (3 ml) UD IH SCH ×4 (10:50→13:42)
--- NOTE | 2017-07-06 11:42 | CP.PCM.HP ---
<HaileyGuillermina - Last Filed: 07/06/17 13:17> History of Present Illness - History of Present Illness History of Present Illness: PGY-[address] Bhatti Admission: Worsened generalized weakness, immunocompromised 37 F, active smoker with Hx of HIV and now AIDS, Hx HepC, Hx TB, COPD, anemoa, opiate dependence on methadone, presents to the emergency department complaining of cough, congestion, vomiting for 1 week and incresaed generalized weakness. Pt is on day 7 on amoxicillin, but has had no relief of symptoms. Patient notes fever at night, weakness, cough with thick, dark brown sputum Associated symptoms include F/C/dry throat. ROS (+) ARELLANO/dizziness/f/c, (+) cough with sputum but hard to produce (+) Nausea/ vomit. Last vomit 2 d ago. dark brown (+) decrease PO intake Denies night sweat, hememesis. denies diarrhea Denies dysuria. (+) hesitence when urinate Upon ED arrival, T 99.1 HR 106. RR 21. 109/53. POx 95 - CBC showed EBC 3.1, Hb 10.5, plt 77 - CMP significant for AST 131, ALT 76 - VBG lactate 0.7 - CXR: Minimal interstitial infiltrate in the right lung base which was not present on the previous study. Poss. early pneumonia. - EKG sinus 102. No ST/T-wave changes. QTc 437 Pt received Aztreonam 2g x 1, vanco x 1. NS 1.5L. Solu-medrol 125 x 1. duoneb x 1. PMHx: Hx tuberculosis (TB) in 2009, CT chest 02/2017 showed no active TB HIV (Dx 2008) now AIDs, last CD4 25 (11/2016), last viral load >250K (2014), on HAART Hep C (viral load high, 2013), treated COPD, never intubated Anemia Opiate dependence on methadone Smoker IVDU GERD Hx Non-compliant with therapy but compliant now Scoliosis PSHx: R anterior neck biopsy Cervical biopsy Fam Hx: DM Social hx: Acitve smother last smoke 3 weeks ago. 1ppd Denies alcohol, Prior IV drug use/heroin, on MMTP-METH PROGRAM, clean for 2 years Allergy: Penicillins = rash Levofloxacin = rash Flexeril = rash Med: Elviteg/Emily/Emtric/tenofo Ala (genvoya) 1 qd Prezista (Darunavir) 800 qd Amoxcillin 250 bid Bactrum daily PMD: Dr Carter ID: Dr. Amber Desai Present on Admission - Present on Admission Any Indicators Present on Admission: No Past Patient History - Infectious Disease Hx of Infectious Diseases: None - Tetanus Immunizations Tetanus Immunization: Unknown - Past Social History Smoking Status: Light Smoker < 10 Cigarettes Daily - CARDIAC Hx Cardiac Disorders: Yes Hx Hypotension: Yes - PULMONARY Hx Respiratory Disorders: Yes (has nebulizer machine at home) Hx Asthma: Yes Hx Bronchitis: Yes Hx Chronic Obstructive Pulmonary Disease (COPD): Yes Hx Pneumonia: Yes - NEUROLOGICAL Hx Migraine: Yes - HEENT Hx Macular Degeneration: Yes - RENAL Hx Chronic Kidney Disease: No - ENDOCRINE/METABOLIC Hx Endocrine Disorders: No - HEMATOLOGICAL/ONCOLOGICAL Hx Blood Disorders: Yes (blood transfusion) Hx Hepatitis C: Yes (IVDU) - INTEGUMENTARY Hx Dermatological Problems: Yes - MUSCULOSKELETAL/RHEUMATOLOGICAL Hx Musculoskeletal Disorders: Yes Hx Back Pain: Yes Other/Comment: SCOLIOSIS - GASTROINTESTINAL Hx Gastrointestinal Disorders: Yes - GENITOURINARY/GYNECOLOGICAL Hx Genitourinary Disorders: Yes Hx Urinary Tract Infection: Yes - PSYCHIATRIC Hx Psychophysiologic Disorder: Yes Hx Anxiety: Yes Hx Substance Use: No Other/Comment: hx ivdu/cocaine stopped 6 yrs ago on methadone program, smokes 1 ppd has not smoked in 4 days - SURGICAL HISTORY Other/Comment: right anterior neck SX for abcesses bx neg - ANESTHESIA Hx Anesthesia: Yes Hx Anesthesia Reactions: No Meds Allergies/Adverse Reactions: Allergies Allergy/AdvReac Type Severity Reaction Status Date / Time levofloxacin [From Levaquin] Allergy RASH Verified 07/06/17 13:36 Penicillins Allergy RASH Verified 07/06/17 13:36 flexeril AdvReac RASH Uncoded 07/06/17 13:36 Physical Exam - Constitutional Appears: No Acute Distress, Cachectic - Head Exam Head Exam: ATRAUMATIC, NORMAL INSPECTION, NORMOCEPHALIC - Eye Exam Eye Exam: EOMI, Normal appearance, PERRL. absent: Scleral icterus Pupil Exam: NORMAL ACCOMODATION - ENT Exam ENT Exam: Mucous Membranes Dry Additional comments: mild white plaque on tongue without erythemadosis bases, not tender - Neck Exam Additional comments: supple - Respiratory Exam Respiratory Exam: Clear to Auscultation Bilateral, Rales, Rhonchi, NORMAL BREATHING PATTERN. absent: Respiratory Distress - Cardiovascular Exam Cardiovascular Exam: REGULAR RHYTHM, +S1, +S2 - GI/Abdominal Exam GI & Abdominal Exam: Hypoactive Bowel Sounds, Soft, Tenderness (RLQ. Negative chatterjee. Negative mcburney). absent: Distended, Firm, Guarding, Rebound, Rigid - Extremities Exam Extremities exam: Positive for: normal capillary refill, pedal pulses present. Negative for: calf tenderness, pedal edema - Back Exam Back exam: absent: CVA tenderness (L), CVA tenderness (R) - Neurological Exam Neurological exam: Alert, Oriented x3 - Psychiatric Exam Psychiatric exam: Normal Affect, Normal Mood - Skin Skin Exam: Dry, Warm Results - Vital Signs Recent Vital Signs: Last Vital Signs Temp 99.1 F 07/06/17 09:09 Pulse 87 07/06/17 11:08 Resp 18 07/06/17 11:08 BP 94/65 L 07/06/17 11:08 Pulse Ox 98 07/06/17 11:08 - Labs Result Diagrams: 07/06/17 10:03 07/06/17 10:03 Labs: Laboratory Results - last 24 hr 07/06/17 07/06/17 07/06/17 10:03 10:03 10:03 WBC 3.1 L RBC 4.00 Hgb 10.5 L Hct 32.1 L MCV 80.3 MCH 26.3 MCHC 32.7 RDW 16.3 H Plt Count 77 L MPV 11.2 H Gran % 70.5 H Lymph % (Auto) 11.5 L [place] % (Auto) 12.1 H Eos % (Auto) 5.6 H Baso % (Auto) 0.3 Gran # 2.15 Lymph # 0.4 L [place] # 0.4 Eos # 0.2 Baso # 0.01 PT 10.8 INR 1.00 APTT 36.4 H pO2 96 H VBG pH 7.29 L VBG pCO2 58.0 VBG HCO3 27.9 VBG Total CO2 29.7 H VBG O2 Sat (Calc) 98.2 H VBG Base Excess 0.5 VBG Potassium 4.4 Sodium 137.0 Chloride 109.0 H Glucose 100 Lactate 0.7 FiO2 21.0 Potassium Carbon Dioxide Anion Gap BUN Creatinine Est GFR ( Amer) Est GFR (Non-Af Amer) Random Glucose Calcium Phosphorus Magnesium Total Bilirubin AST ALT Alkaline Phosphatase Total Protein Albumin Globulin Albumin/Globulin Ratio Venous Blood Potassium 4.4 Urine Color Urine Appearance Urine pH Ur Specific [place] Urine Protein Urine Glucose (UA) Urine Ketones Urine Blood Urine Nitrate Urine Bilirubin Urine Urobilinogen Ur Leukocyte Esterase Urine RBC Urine WBC Ur Epithelial Cells 07/06/17 07/06/17 10:03 10:25 WBC RBC Hgb Hct MCV MCH MCHC RDW Plt Count MPV Gran % Lymph % (Auto) [place] % (Auto) Eos % (Auto) Baso % (Auto) Gran # Lymph # [place] # Eos # Baso # PT INR APTT pO2 VBG pH VBG pCO2 VBG HCO3 VBG Total CO2 VBG O2 Sat (Calc) VBG Base Excess VBG Potassium Sodium 138 Chloride 107 Glucose Lactate FiO2 Potassium 4.1 Carbon Dioxide 26 Anion Gap 9 L BUN 19 Creatinine 0.8 Est GFR ( Amer) > 60 Est GFR (Non-Af Amer) > 60 Random Glucose 94 Calcium 8.5 Phosphorus 3.3 Magnesium 1.9 Total Bilirubin 0.3 AST 131 H ALT 76 H Alkaline Phosphatase 63 Total Protein 7.2 Albumin 3.2 Globulin 4.0 Albumin/Globulin Ratio 0.8 L Venous Blood Potassium Urine Color Yellow Urine Appearance Sl cloudy Urine pH 6.5 Ur Specific [place] 1.025 Urine Protein >=300 H Urine Glucose (UA) Negative Urine Ketones Negative Urine Blood Trace-intact H Urine Nitrate Negative Urine Bilirubin Negative Urine Urobilinogen 1.0 H Ur Leukocyte Esterase Negative Urine RBC 0 - 2 Urine WBC 1 - 3 Ur Epithelial Cells 4 - 5 Assessment & Plan - Assessment and Plan (Free Text) Plan: 37 F, active smoker with Hx of HIV and now AIDS, Hx HepC, Hx TB, COPD, anemia, opiate dependence on methadone, presents to the emergency department complaining of cough, congestion, vomiting for 1 week and incresaed generalized weakness. Pt is on day 7 on amoxicillin. She was admitted for community acquired pneumonia. Community acquired pneumonia, bacterial - pending blood culture, urine culture, sputum culture - procalc pending - azithromycin, vanco, aztreomane x 1 pending ID rec - NS @ 100, tylenol prn, zofran prn - Urine antigen legionella, streptococcus, MRSA swab, flu swab COPD - Duoneb q8 benjamin; q2 prn - Got solumedrol 125 x 1 in ED. May consider oral prednisone pending clinical response Pancytopenia - likely infection vs AIDS - Anemia - retic index, peripheral smear - leukopenia - trend WBC - thrombocytopenia - no transfusion needed, hold heparin sc AIDS Hx Hep C, HIV - hep C viral load, cd 4 count, HIV viral load - Consider adding mepron pending CD4 - continue bactrim pvx - crytococcus ab/ag due to low CD4 per pt hx - [ ] no pneucosystis Ag/Ag. Need special order. Pls f/u PVX - SCD - Protonix FENA - NS@100 - CLD - IV access Consult - ID = Dr. Granado S/R/D/w Dr. Bhatti <Davy TERRELL,[facility] - Last Filed: 07/06/17 17:44> Results - Vital Signs Recent Vital Signs: Last Vital Signs Temp 97 F L 07/06/17 16:00 Pulse 60 07/06/17 16:00 Resp 20 07/06/17 16:00 BP 92/60 L 07/06/17 16:00 Pulse Ox 98 07/06/17 16:00 - Labs Result Diagrams: 07/06/17 10:03 07/06/17 10:03 Attending/Attestation - Attestation I have personally seen and examined this patient.: Yes I have fully participated in the care of the patient.: Yes I have reviewed all pertinent clinical information: Yes Notes (Text): 07/06/17 17:39 Patient was seen and examined with biomedical service engineer. 37 F, active smoker with Hx of HIV ,CD 4 count less than 50, non compliance , Hx Hep C, Hx TB, COPD, is admitted after failed therapy for Respiratory tract infection ,with cough, dyspnea and H/O fever found to have Bacterial Pneumonia, on IV antibiotics as Per ID.We will follow up cultures, procalcitonin level, urinary antigen for streptococcal Pneumonia and legionella urinary antigen. Etiology of Pancytopenia is not clear, likely due to Bone marrow suppression due to HIV.We will check reticulocyte count, will do anemia work up and monitor. Patient is not wheezing at this time, no need for steroid at this time. Management plan was discussed in detail with patient Education was provided.
[2017-07-06] MEDS: Sodium Chloride 0.9% 1,000 ML IV SCH (12:17)
[2017-07-06] MEDS ORDERED: Albuterol-Ipratrop 3 mg / 0.5 (3 ml) UD IH PRN (12:46)
--- NOTE | 2017-07-06 12:55 | CARD ---
APPROVED REPORT EKG Measurement Heart [id number] <Conclusion> Sinus tachycardia Otherwise normal ECG
[2017-07-06 13:12] LABS: RETIC% 1.01 % (0.5-1.5)
[2017-07-06] MEDS ORDERED: Pneumococcal 23-Valent Vaccine IM ONE (14:21)
--- NOTE | 2017-07-06 17:25 | CON ---
DATE: 07/06/2017 LOCATION: Room 570. CHIEF COMPLAINT: Congestion cough started just a few days duration. HISTORY OF PRESENT ILLNESS: This is a 37-year-old female known to me from previous admission with end-stage HIV and AIDS, last T-cells were 25 and earlier this year the patient also has end-stage COPD, long time smoker, end-stage asthma and hepatitis C, intravenous drug abuser. She states she last used 4 years ago. She has chronic back pain and anxiety. She has been a very poor compliant patient and seen by infectious disease doctor at [facility] and was given her Genvoya, she is intermittent while taking her medications. Now, presents with cough of acute onset. No fevers. The cough is in rust colored sputum and associated with pleuritic chest pain. No abdominal pain, diarrhea or constipation. No blood per rectum. PAST MEDICAL HISTORY: Significant for HIV and AIDS with T-cells of 25 and chronic obstructive lung disease end-stage, history of asthma, chronic back pain, ex-intravenous drug abuser last use 4 years ago, also the patient with hepatitis C and asthma. PAST SURGICAL HISTORY: Noncontributory. ALLERGIES: THE PATIENT IS ALLERGIC TO PENICILLIN AND LEVAQUIN SHE DEVELOPS A RASH, ALSO TO FLEXERIL. MEDICATIONS: Include, Genvoya she is intermittent about taking it. She is also suppose to be on Bactrim. PHYSICAL EXAMINATION GENERAL: She is in bed, appearing chronically ill, cachectic with wasting syndrome. VITAL SIGNS: Temperature of 99, heart rate of 106, respiratory rate of 21, blood pressure is 100/60, and she is saturating 98% saturations on O2. HEENT: Unremarkable. There is temporal wasting. NECK: Supple. LUNGS: Decreased breath sounds. HEART: Normal S1 and S2. ABDOMEN: Soft and nontender. LABORATORY DATA: Reveals the patient's white count is 3.1, hemoglobin of 10, and platelets of 77. Coagulation is noted and blood gases are reviewed pO2 is 96. BUN is 19, creatinine of 0.8. LFTs are mildly elevated with AST of 131 and ALT of 76. Urinalysis is noted. Microbiology is pending. Chest x-ray shows infiltrate. EKG shows QTC of 437. ASSESSMENT AND PLAN: This is a 37-year-old female with HIV and AIDS with low T-cells of 25, end-stage chronic obstructive pulmonary disease, asthma, hepatitis C, chronic back pain, ex-intravenous drug abuser last use 4 years ago now presenting with dyspnea, tachycardia, cachectic wasting syndrome, sepsis with community acquired pneumonia and the patient with AIDS, pancytopenia, and hepatitis C with ALLERGIES TO LEVAQUIN AND PENICILLIN. We will treat the patient with vancomycin. In fact the patient is already started on azithromycin. I will check on her cryptococcal antigen, blood cultures, urine cultures, sputum culture, HIV, PCR and I will also add procalcitonin, urine for legionella influenza and we will also add Mepron and we will make further recommendations upon availability of initial results. Cheikh Chou MD
[2017-07-06] MEDS: Atovaquone 750 mg/5 ml Susp UD PO SCH (17:43)
[2017-07-06] MEDS: Aztreonam 1 Gm in NS 100mL 100 ML IV SCH ×2 (17:43→21:57)
[2017-07-06] MEDS: Vancomycin 1gm in NS 250ml 1 GM/250 ML BAG IVPB SCH (17:43)
[2017-07-06] MEDS: Azithromycin 500MG/NS 250ml 500 MG/250 ML BAG IVPB SCH (17:44)
[2017-07-07] MEDS: Albuterol-Ipratrop 3 mg / 0.5 (3 ml) UD IH SCH ×3 (00:40→13:16)
[2017-07-07] MEDS: Vancomycin 1gm in NS 250ml 1 GM/250 ML BAG IVPB SCH ×2 (01:24→14:51)
[2017-07-07] MEDS: Aztreonam 1 Gm in NS 100mL 100 ML IV SCH ×3 (05:48→22:43)
[2017-07-07] MEDS: Pantoprazole 40 mg EC Tab PO SCH (05:48)
[2017-07-07] MEDS: Sodium Chloride 0.9% 1,000 ML IV SCH (05:51)
[2017-07-07] MEDS ORDERED: Sodium Chloride 0.9% 500 ML IV STA ×2 (09:02→11:48)
[2017-07-07] MEDS: Atovaquone 750 mg/5 ml Susp UD PO SCH ×2 (09:17→17:36)
--- NOTE | 2017-07-07 09:19 | CP.PCM.PCO ---
Physician Communication Note - Physician Communication Note Physician Communication Note: spoke to Sonia @ [facility], pt takes 110 mg methadone a day.
[2017-07-07] MEDS ORDERED: Tmp-Smz 800 mg-160 mg DS Tab PO SCH (10:00)
[2017-07-07] MEDS: Azithromycin 500MG/NS 250ml 500 MG/250 ML BAG IVPB SCH (11:08)
[2017-07-07] MEDS ORDERED: guaiFENesin 100 mg/5 ml Syrup UD PO PRN (13:30)
[2017-07-07] MEDS: Nystatin 100,000 Units/ml Oral Susp 5 ml UD PO SCH ×3 (14:18→22:43)
[2017-07-07 14:38] LABS: ALB/GLOB RATIO 0.8 (1.1-1.8); ALKALINE PHOSPHATASE 44 U/L (38-126); ALT/SGPT 51 U/L (7-56); AST/SGOT 78 U/L (14-36); BLOOD UREA NITROGEN 12 mg/dL (7-21); CALCIUM 8.1 mg/dL (8.4-10.5); CARBON DIOXIDE 24 mmol/L (21-33); CHLORIDE 116 mmol/L (98-107); GFR AFRICAN-AMERICAN > 60; GLUCOSE,RANDOM 101 mg/dL (70-110); POTASSIUM 3.3 mmol/L (3.6-5.0); SODIUM 144 mmol/L (132-148); TOTAL PROTEIN 5.8 g/dL (5.8-8.3)
[2017-07-07 14:39] LABS: BILIRUBIN,TOTAL < 0.1 mg/dL (0.2-1.3)
[2017-07-07 14:41] LABS: HEMATOCRIT 29.5 % (36.0-48.0); MEAN CELL VOLUME 80.4 fl (80.0-105.0); MEAN CORPUSCULAR HEMOGLOBIN 25.9 pg (25.0-35.0); MEAN CORPUSCULAR HGB CONC 32.2 g/dl (31.0-37.0); MEAN PLATELET VOLUME 9.1 fl (7.0-11.0); PLATELET COUNT 59 10^3/uL (120.0-450.0)
[2017-07-07 14:53] LABS: WHITE BLOOD COUNT 1.7 10^3/ul (4.5-11.0)
[2017-07-07] MEDS ORDERED: Potassium Chloride 20 mEq ER Tab PO STA (15:32)
[2017-07-07 15:49] LABS: EOS # 0.1 (0.0-0.7); GRAN % 75.2 % (50.0-68.0); LYMPH # 0.2 (1.2-3.4); MONO # 0.2 (0.1-0.6); MONO % 9.8 % (1.0-6.0)
[2017-07-07] MEDS ORDERED: Potassium Chloride 20 mEq ER Tab PO ONE (16:00)
--- NOTE | 2017-07-07 18:26 | CP.PCM.PN ---
Addendum entered and electronically signed by Rivka Solano DO 07/07/17 20:35: WBC: 1.7 %neutrophils: 68 %band: 13 Absolute neutrophil count: 1377 x 10^3 ANC interpreted as NCI Risk 2 and mild Patient is afebrile - no need for neutropenic precautions at this time. Original Note: <YAKELIN GREENWOOD - Last Filed: 07/07/17 18:21> Subjective - Date & Time of Evaluation Date of Evaluation: 07/07/17 Time of Evaluation: 10:30 - Subjective Subjective: patient was seen and examined bedside. She is complaining of weakness, that is improved from yesterday, cough (productive, yellow sputum) and hunger since she was on liquid diet. Otherwise she denies fevers, cp, fevers, chills, palpitations, abdominal pain. She does state that she is a methadone regular user and required her 110mg dose of methadone. Objective - Vital Signs/Intake and Output Vital Signs (last 24 hours): Temp Pulse Resp BP Pulse Ox 97.7 F 68 20 84/57 L 94 L 07/07/17 07:30 07/07/17 07:30 07/07/17 07:30 07/07/17 07:30 07/07/17 07:30 Intake and Output: 07/07/17 07/07/17 06:59 18:59 Intake Total 600 300 Output Total 0 Balance 600 300 - Medications Medications: Current Medications Acetaminophen (Tylenol 325mg Tab) 650 mg PO Q6 PRN PRN Reason: Fever >100.4 F Albuterol/Ipratropium (Duoneb 3 Mg/0.5 Mg (3 Ml) Ud) 3 ml IH Q8 [facility] Last Admin: 07/07/17 13:16 Dose: 3 ml Albuterol/Ipratropium (Duoneb 3 Mg/0.5 Mg (3 Ml) Ud) 3 ml IH Q2 PRN PRN Reason: Shortness of Breath Atovaquone (Mepron) 750 mg PO BID [facility] Stop: 07/15/17 18:01 Last Admin: 07/07/17 17:36 Dose: 750 mg Guaifenesin (Robitussin) 100 mg PO Q4H PRN PRN Reason: Cough Sodium Chloride (Sodium Chloride 0.9%) 1,000 mls @ 100 mls/hr IV .Q10H [facility] Last Admin: 07/07/17 05:51 Dose: 100 mls/hr Azithromycin (Zithromax 500mg In Ns) 500 mg in 250 mls @ 167 mls/hr IVPB DAILY [facility] PRN Reason: Protocol Last Admin: 07/07/17 11:08 Dose: 167 mls/hr Aztreonam (Azactam 1 Gm) 100 mls @ 100 mls/hr IV Q8 [facility] PRN Reason: Protocol Stop: 07/15/17 14:01 Last Admin: 07/07/17 17:05 Dose: 100 mls/hr Vancomycin HCl (Vancomycin 1gm) 1 gm in 250 mls @ 167 mls/hr IVPB Q12H [facility] PRN Reason: Protocol Stop: 07/15/17 13:31 Last Admin: 07/07/17 14:51 Dose: 167 mls/hr Nystatin (Nystatin Oral Susp) 5 ml PO QID [facility] Last Admin: 07/07/17 17:36 Dose: 5 ml Ondansetron HCl (Zofran Inj) 4 mg IVP Q6 PRN PRN Reason: Nausea/Vomiting Pantoprazole Sodium (Protonix Ec Tab) 40 mg PO 0600 [facility] Last Admin: 07/07/17 05:48 Dose: 40 mg - Labs Labs: 07/07/17 14:25 07/07/17 14:25 PT 10.8 Seconds (9.9-11.8) 07/06/17 10:03 INR 1.00 (0.93-1.08) 07/06/17 10:03 APTT 36.4 Seconds (23.7-30.8) H 07/06/17 10:03 - Constitutional Appears: No Acute Distress, Cachectic - Head Exam Head Exam: ATRAUMATIC, NORMAL INSPECTION, NORMOCEPHALIC - Eye Exam Eye Exam: EOMI, Normal appearance, PERRL Pupil Exam: NORMAL ACCOMODATION - ENT Exam ENT Exam: Mucous Membranes Moist Additional comments: oral thrush noted - Neck Exam Neck Exam: Full ROM, Normal Inspection. absent: Lymphadenopathy, Meningismus - Respiratory Exam Respiratory Exam: Clear to Ausculation Bilateral, Rhonchi (b/l lower lobes), Wheezes, NORMAL BREATHING PATTERN. absent: Accessory Muscle Use, Rales, Respiratory Distress - Cardiovascular Exam Cardiovascular Exam: RRR, +S1, +S2. absent: Gallop, JVD, Rubs - GI/Abdominal Exam GI & Abdominal Exam: Soft, Normal Bowel Sounds. absent: Distended, Tenderness - Extremities Exam Extremities Exam: Full ROM. absent: Pedal Edema - Back Exam Back Exam: NORMAL INSPECTION. absent: CVA tenderness (L), CVA tenderness (R), tenderness - Neurological Exam Neurological Exam: Alert, Awake, Oriented x3 - Psychiatric Exam Psychiatric exam: Anxious - Skin Skin Exam: Normal Color, Warm Assessment and Plan - Assessment and Plan (Free Text) Assessment: 37 F, active smoker with Hx of HIV and now AIDS, Hx HepC, ?Hx TB, COPD, anemia, opiate dependence on methadone, presents to the emergency department complaining of cough, congestion, vomiting for 1 week and increased generalized weakness. She was admitted for community acquired pneumonia r/o pcp. Plan: 1. Community acquired pneumonia, bacterial - CXR showed minimal interstitial infiltrate in the right lung base which was not present on the previous study. This could represent an early pneumonia. - pending blood culture urine culture show no growth after 24hrs - sputum culture, not done - procalc 0.06 - NS @ 100, tylenol prn, zofran prn - ID consulted, recs appreciated 2. COPD - Duoneb q8 [facility]jamin; q2 prn - Got solumedrol 125 x 1 in ED. May consider oral prednisone pending clinical response 3. Pancytopenia - likely 2/2 HIV - ANC 1278 (mild neutropenia), consider neutropenic precautions - anemia - retic index, peripheral smear - leukopenia- trend WBC - thrombocytopenia - no transfusion needed, hold heparin sc 4. Hypotension likely 2/2 chronic methadone use - pt states that this is her baseline - monitor for signs of hypotension, may consider fluids 5. Hypokalemia - repleted - f/u BMP 6. AIDS w/ Hx Hep C, HIV - hep C viral load, cd 4 count, HIV viral load, f/u - cont Mepron - Zithromax, Vancomycin and Aztreonam 7. Methadone dependence - [facility] was contacted and verified daily dose of 110mg methadone 8. cough - Robitussin 9. Oral thrush - Nystatin oral Regular diet SCD/Protonix Patient was seen, evaluated and d/w attending, Dr. Marianne Greenwood PGY1 <Ray Lopes B - Last Filed: 07/09/17 16:05> Objective - Vital Signs/Intake and Output Vital Signs (last 24 hours): Temp Pulse Resp BP Pulse Ox 97.4 F L 92 H 18 87/59 L 92 L 07/09/17 07:00 07/09/17 07:00 07/09/17 07:00 07/09/17 07:00 07/09/17 07:00 Intake and Output: 07/09/17 07/09/17 06:59 18:59 Intake Total 780 840 Output Total 0 Balance 780 840 - Labs Labs: 07/09/17 06:50 07/09/17 08:35 PT 10.8 Seconds (9.9-11.8) 07/06/17 10:03 INR 1.00 (0.93-1.08) 07/06/17 10:03 APTT 36.4 Seconds (23.7-30.8) H 07/06/17 10:03 Attending/Attestation - Attestation I have personally seen and examined this patient.: Yes I have fully participated in the care of the patient.: Yes I have reviewed all pertinent clinical information, including history, physical exam and plan: Yes Notes (Text): I have seen and examined the patient at bedside. Agree with the note above with the following additions/ exceptions: Briefly this is 37 year old female with history of HIV, AIDS, COPD, anemia, methadone dependence, panyctopenia who was admitted today for evaluation of cough, congestion, vomiting and found to have CAP. Will conntinue vanco, azactam and zithromax. All cultures are pending. Pancytopenia stable. Advised patient regarding need to be compliant with HIV medications. Continue methadone 110 mg which was confirmed with methadone clinic. Upon discharge patient will follow up with Dr Carter. Dr Ray Lopes
--- NOTE | 2017-07-07 19:20 | CP.PCM.PN ---
Subjective - Date & Time of Evaluation Date of Evaluation: 07/07/17 Time of Evaluation: 18:30 - Subjective Subjective: Comfortable in bed, less cough, no fevers overnight. Objective - Vital Signs/Intake and Output Vital Signs (last 24 hours): Temp Pulse Resp BP Pulse Ox 97.7 F 68 20 84/57 L 94 L 07/07/17 07:30 07/07/17 07:30 07/07/17 07:30 07/07/17 07:30 07/07/17 07:30 Intake and Output: 07/07/17 07/07/17 06:59 18:59 Intake Total 600 Balance 600 - Medications Medications: Current Medications Acetaminophen (Tylenol 325mg Tab) 650 mg PO Q6 PRN PRN Reason: Fever >100.4 F Albuterol/Ipratropium (Duoneb 3 Mg/0.5 Mg (3 Ml) Ud) 3 ml IH Q8 [facility] Last Admin: 07/07/17 13:16 Dose: 3 ml Albuterol/Ipratropium (Duoneb 3 Mg/0.5 Mg (3 Ml) Ud) 3 ml IH Q2 PRN PRN Reason: Shortness of Breath Atovaquone (Mepron) 750 mg PO BID [facility] Stop: 07/15/17 18:01 Last Admin: 07/07/17 09:17 Dose: 750 mg Guaifenesin (Robitussin) 100 mg PO Q4H PRN PRN Reason: Cough Sodium Chloride (Sodium Chloride 0.9%) 1,000 mls @ 100 mls/hr IV .Q10H [facility] Last Admin: 07/07/17 05:51 Dose: 100 mls/hr Azithromycin (Zithromax 500mg In Ns) 500 mg in 250 mls @ 167 mls/hr IVPB DAILY [facility] PRN Reason: Protocol Last Admin: 07/07/17 11:08 Dose: 167 mls/hr Aztreonam (Azactam 1 Gm) 100 mls @ 100 mls/hr IV Q8 [facility] PRN Reason: Protocol Stop: 07/15/17 14:01 Last Admin: 07/07/17 05:48 Dose: 100 mls/hr Vancomycin HCl (Vancomycin 1gm) 1 gm in 250 mls @ 167 mls/hr IVPB Q12H [facility] PRN Reason: Protocol Stop: 07/15/17 13:31 Last Admin: 07/07/17 01:24 Dose: 167 mls/hr Methadone HCl (Methadone) 110 mg PO DAILY [facility] Last Admin: 07/07/17 11:39 Dose: 110 mg Nystatin (Nystatin Oral Susp) 5 ml PO QID [facility] Ondansetron HCl (Zofran Inj) 4 mg IVP Q6 PRN PRN Reason: Nausea/Vomiting Pantoprazole Sodium (Protonix Ec Tab) 40 mg PO 0600 [facility] Last Admin: 07/07/17 05:48 Dose: 40 mg - Labs Labs: PT 10.8 Seconds (9.9-11.8) 07/06/17 10:03 INR 1.00 (0.93-1.08) 07/06/17 10:03 APTT 36.4 Seconds (23.7-30.8) H 07/06/17 10:03 - Constitutional Appears: Non-toxic, No Acute Distress - Head Exam Head Exam: NORMAL INSPECTION - ENT Exam ENT Exam: Mucous Membranes Moist - Neck Exam Neck Exam: absent: Meningismus - Respiratory Exam Respiratory Exam: Decreased Breath Sounds - Cardiovascular Exam Cardiovascular Exam: +S1, +S2 - GI/Abdominal Exam GI & Abdominal Exam: Soft. absent: Tenderness Assessment and Plan - Assessment and Plan (Free Text) Plan: Assessment consider sepsis due to healthcare-associated pneumonia in this patient with HIV / AIDS, with probable acute bronchitis as well HIV/AIDS with last CD4 count 25 COPD Plan continue Vancomycin, Azactam and Zithromax day 2; blood cx are negative, PCT is 0.06 Asked patient to bring her supply of her Genvoya for her HIV continued Mepron for PCP prophylaxis Will continue to monitor clinically
[2017-07-07 19:49] LABS: BAND 13 % (0-2); NEUTROPHIL 68 % (50.0-70.0)
[2017-07-07 19:51] LABS: EOSINOPHIL 2 % (0.0-3.0); PLATELET ESTIMATE LOW (NORMAL)
[2017-07-08] MEDS: Albuterol-Ipratrop 3 mg / 0.5 (3 ml) UD IH SCH ×4 (00:50→23:51)
[2017-07-08] MEDS: Vancomycin 1gm in NS 250ml 1 GM/250 ML BAG IVPB SCH (00:51)
[2017-07-08] MEDS: Aztreonam 1 Gm in NS 100mL 100 ML IV SCH ×3 (06:12→21:54)
[2017-07-08] MEDS: Pantoprazole 40 mg EC Tab PO SCH (06:15)
[2017-07-08 07:13] LABS: ALB/GLOB RATIO 0.7 (1.1-1.8); ALKALINE PHOSPHATASE 51 U/L (38-126); ALT/SGPT 49 U/L (7-56); AST/SGOT 58 U/L (14-36); BLOOD UREA NITROGEN 9 mg/dL (7-21); CALCIUM 8.2 mg/dL (8.4-10.5); CARBON DIOXIDE 26 mmol/L (21-33); CHLORIDE 116 mmol/L (98-107); GFR AFRICAN-AMERICAN > 60; GLUCOSE,RANDOM 71 mg/dL (70-110); POTASSIUM 4.2 mmol/L (3.6-5.0); SODIUM 145 mmol/L (132-148); TOTAL PROTEIN 5.7 g/dL (5.8-8.3)
[2017-07-08 07:21] LABS: EOS # 0.3 (0.0-0.7); EOS % 16.9 % (1.5-5.0); GRAN # 1.2 (1.4-6.5); GRAN % 59.7 % (50.0-68.0); LYMPH # 0.2 (1.2-3.4); MEAN CELL VOLUME 80.9 fl (80.0-105.0); MEAN CORPUSCULAR HEMOGLOBIN 25.1 pg (25.0-35.0); MEAN CORPUSCULAR HGB CONC 31.1 g/dl (31.0-37.0); MEAN PLATELET VOLUME 9.9 fl (7.0-11.0); MONO # 0.3 (0.1-0.6); MONO % 13.4 % (1.0-6.0); RED CELL DISTRIBUTION WIDTH 16.3 % (11.5-14.5)
[2017-07-08 07:23] LABS: BILIRUBIN,TOTAL < 0.1 mg/dL (0.2-1.3)
[2017-07-08] MEDS: Sodium Chloride 0.9% 1,000 ML IV SCH (09:35)
[2017-07-08] MEDS: Nystatin 100,000 Units/ml Oral Susp 5 ml UD PO SCH ×4 (10:40→21:54)
[2017-07-08] MEDS: Atovaquone 750 mg/5 ml Susp UD PO SCH ×2 (10:40→18:44)
[2017-07-08] MEDS: Azithromycin 500MG/NS 250ml 500 MG/250 ML BAG IVPB SCH (10:41)
[2017-07-08 12:02] LABS: % CD16+CD56+(NK CELL) 15 Percent (4-25); % CD19 (B CELL) 9 Percent (6-29); % CD3 (MATURE T CELL) 72 Percent (57-85); ABSOLUTE CD16+CD56+CELLS 29 Cells/mcL (70-760)
--- NOTE | 2017-07-08 14:58 | CP.PCM.PN ---
<YAKELIN GREENWOOD - Last Filed: 07/08/17 14:54> Subjective - Date & Time of Evaluation Date of Evaluation: 07/08/17 Time of Evaluation: 11:00 - Subjective Subjective: patient was seen and examined at bedside. she is complaining of weakness, cough and mid-back pain. she denied fevers, cp, sob, chills, palpitations, abdominal pain, dysuria or pedal edema. Objective - Vital Signs/Intake and Output Vital Signs (last 24 hours): Temp Pulse Resp BP Pulse Ox 98.9 F 68 20 84/57 L 100 07/08/17 08:14 07/07/17 07:30 07/08/17 08:14 07/07/17 07:30 07/08/17 08:14 Intake and Output: 07/08/17 07/08/17 06:59 18:59 Intake Total 840 Balance 840 - Medications Medications: Current Medications Acetaminophen (Tylenol 325mg Tab) 650 mg PO Q6 PRN PRN Reason: Fever >100.4 F Albuterol/Ipratropium (Duoneb 3 Mg/0.5 Mg (3 Ml) Ud) 3 ml IH Q8 [facility] B[facility]S AT [facility] Last Admin: 07/08/17 13:28 Dose: 3 ml Albuterol/Ipratropium (Duoneb 3 Mg/0.5 Mg (3 Ml) Ud) 3 ml IH Q2 PRN PRN Reason: Shortness of Breath Atovaquone (Mepron) 750 mg PO BID [facility] 234 B[facility]S AT [facility] Stop: 07/15/17 18:01 Last Admin: 07/08/17 10:40 Dose: 750 mg Azithromycin (Zithromax) 250 mg PO DAILY [facility] PRN Reason: Protocol Stop: 07/14/17 10:01 Guaifenesin (Robitussin) 100 mg PO Q4H PRN PRN Reason: Cough Sodium Chloride (Sodium Chloride 0.9%) 1,000 mls @ 100 mls/hr IV .Q10H [facility] 234 BEDS AT [facility] Last Admin: 07/08/17 09:35 Dose: 100 mls/hr Aztreonam (Azactam 1 Gm) 100 mls @ 100 mls/hr IV Q8 [facility] PRN Reason: Protocol Stop: 07/15/17 14:01 Last Admin: 07/08/17 06:12 Dose: 100 mls/hr Ibuprofen (Motrin Tab) 400 mg PO Q6H PRN PRN Reason: Pain, moderate (4-7) Nystatin (Nystatin Oral Susp) 5 ml PO QID [facility] 234 BEDS AT [facility] Last Admin: 07/08/17 10:40 Dose: 5 ml Ondansetron HCl (Zofran Inj) 4 mg IVP Q6 PRN PRN Reason: Nausea/Vomiting Pantoprazole Sodium (Protonix Ec Tab) 40 mg PO 0600 [facility] 234 BEDS AT [facility] Last Admin: 07/08/17 06:15 Dose: 40 mg - Labs Labs: 07/08/17 06:30 07/08/17 06:30 PT 10.8 Seconds (9.9-11.8) 07/06/17 10:03 INR 1.00 (0.93-1.08) 07/06/17 10:03 APTT 36.4 Seconds (23.7-30.8) H 07/06/17 10:03 - Additional Findings Additional findings: - Constitutional Appears: No Acute Distress, Cachectic - Head Exam Head Exam: ATRAUMATIC, NORMAL INSPECTION, NORMOCEPHALIC - Eye Exam Eye Exam: EOMI, Normal appearance, PERRL Pupil Exam: NORMAL ACCOMODATION - ENT Exam ENT Exam: Mucous Membranes Moist Additional comments: oral thrush decreased from yesterday - Neck Exam Neck Exam: Full ROM, Normal Inspection. absent: Lymphadenopathy, Meningismus - Respiratory Exam Respiratory Exam: Clear to Ausculation Bilateral, Rhonchi (b/l lower lobes), Wheezes, NORMAL BREATHING PATTERN. absent: Accessory Muscle Use, Rales, Respiratory Distress - Cardiovascular Exam Cardiovascular Exam: RRR, +S1, +S2. absent: Gallop, JVD, Rubs - GI/Abdominal Exam GI & Abdominal Exam: Soft, Normal Bowel Sounds. absent: Distended, Tenderness - Extremities Exam Extremities Exam: Full ROM. absent: Pedal Edema - Back Exam Back Exam: NORMAL INSPECTION. absent: CVA tenderness (L), CVA tenderness (R), tenderness - Neurological Exam Neurological Exam: Alert, Awake, Oriented x3 - Psychiatric Exam Psychiatric exam: Anxious - Skin Skin Exam: Normal Color, Warm Assessment and Plan - Assessment and Plan (Free Text) Assessment: 37 F, active smoker with Hx of HIV and now AIDS, Hx HepC, ?Hx TB, COPD, anemia, opiate dependence on methadone, presents to the emergency department complaining of cough, congestion, vomiting for 1 week and increased generalized weakness. She was admitted for community acquired pneumonia r/o pcp. Plan: 1. Community acquired pneumonia, bacterial - CXR showed minimal interstitial infiltrate in the right lung base which was not present on the previous study. This could represent an early pneumonia. - blood culture and urine culture show no growth after 48hrs (MRSA not detected) - sputum culture, not done - procalc 0.06 - NS @ 100, tylenol prn, zofran prn - ID consulted, rec cont vanco, azactam, and zithromax (d3), however vanco was d /c today by Dr. Chou, will clarify 2. COPD, no wheezing noted - Duoneb q8 [facility]; q2 prn 3. Pancytopenia - likely 2/2 HIV - anemia - - retic count 1.01 - haptoglobin level, f/u - leukopenia- improving - ANC yesterday showed mild neutropenia, neutropenic precautions held for now - thrombocytopenia - no transfusion needed, hold heparin sc 4. Hypotension likely 2/2 chronic methadone use - pt states that this is her baseline - monitor for signs of hypotension, may consider fluids if continues to be hypotensive 5. Hypokalemia - repleted - f/u BMP 6. AIDS w/ Hx Hep C, HIV - hep C viral load, cd 4 count, HIV viral load, f/u - cont Mepron, for PCP ppx 7. Methadone dependence - [facility] was contacted and verified daily dose of 110mg methadone 8. cough - Robitussin prn - zofran prn 9. Oral thrush - Nystatin oral swish and swallow Regular diet SCD/Protonix NS 100 Patient was seen, evaluated and d/w attending, Dr. Marianne Greenwood PGY1 <Ray Lopes B - Last Filed: 07/09/17 15:47> Objective - Vital Signs/Intake and Output Vital Signs (last 24 hours): Temp Pulse Resp BP Pulse Ox 97.4 F L 92 H 18 87/59 L 92 L 07/09/17 07:00 07/09/17 07:00 07/09/17 07:00 07/09/17 07:00 07/09/17 07:00 Intake and Output: 07/09/17 07/09/17 06:59 18:59 Intake Total 780 840 Output Total 0 Balance 780 840 - Labs Labs: 07/09/17 06:50 07/09/17 08:35 PT 10.8 Seconds (9.9-11.8) 07/06/17 10:03 INR 1.00 (0.93-1.08) 07/06/17 10:03 APTT 36.4 Seconds (23.7-30.8) H 07/06/17 10:03 Attending/Attestation - Attestation I have personally seen and examined this patient.: Yes I have fully participated in the care of the patient.: Yes I have reviewed all pertinent clinical information, including history, physical exam and plan: Yes Notes (Text): I have seen and examined the patient at bedside. Agree with the note above with the following additions/ exceptions: Briefly this is 37 year old female with history of HIV, AIDS, COPD, anemia, methadone dependence, panyctopenia who was admitted today for evaluation of cough, congestion, vomiting and found to have CAP. Will conntinue vanco, azactam and zithromax. All cultures are pending. Pancytopenia stable. Advised patient regarding need to be compliant with HIV medications. Continue methadone 110 mg which was confirmed with methadone clinic. Upon discharge patient will follow up with Dr Carter. Dr Ray Lopes
[2017-07-08 15:45] LABS: PNEUMOCYSTIS CARINII SOURCE SPUTUM
--- NOTE | 2017-07-08 17:21 | PN ---
DATE: 07/08/2017 SUBJECTIVE: The patient is in bed, in no acute distress. PHYSICAL EXAMINATION VITAL SIGNS: Temperature is 98, blood pressure is 84/50, and respiratory rate 18. HEENT: Unremarkable. NECK: Supple. LUNGS: Decreased breath sounds. HEART: Normal S1 and S2. ABDOMEN: Soft and nontender. LABORATORY DATA: Reveals a white count of 2, hemoglobin of 8, and platelets of 75. The patient did have 13% bandemia. BUN of 9 and creatinine of 0.7. Urinalysis is noted. T-cells are noted to be at 1% with less than 20 absolute T4. Urine for legionella antigen is negative. Microbiology reveals the cultures are negative. Review of orders reveals the patient to be on aztreonam, Mepron, vancomycin, and IV azithromycin. ASSESSMENT AND PLAN: This is a 37-year-old with sepsis due to healthcare associated pneumonia in a patient with end-stage acquired immune deficiency syndrome with chronic obstructive lung disease, history of intravenous drug abuse last used 4 years ago, day number 3 of vancomycin, Azactam, and azithromycin. With negative blood cultures. Negative methicillin-resistant Staphylococcus aureus, nares. Chest x-ray interstitial infiltrates at lung base. We will discontinue the vancomycin and discontinue IV azithromycin and switch to p.o. Zithromax. Most likely, we will discontinue the Azactam tomorrow if all cultures remain to be negative. We will follow with you. skilled nursing prognosis quite poor for this very noncompliant patient who is ALLERGIC TO PENICILLIN AND LEVAQUIN. Cheikh Chou MD
[2017-07-09] MEDS: Aztreonam 1 Gm in NS 100mL 100 ML IV SCH ×2 (05:20→13:25)
[2017-07-09] MEDS: Pantoprazole 40 mg EC Tab PO SCH (05:22)
[2017-07-09 07:02] LABS: EOS # 0.4 (0.0-0.7); GRAN # 0.64 (1.4-6.5); GRAN % 42.7 % (50.0-68.0); HEMATOCRIT 27.7 % (36.0-48.0); LYMPH # 0.3 (1.2-3.4); LYMPH % 17.3 % (22.0-35.0); MEAN CELL VOLUME 80.5 fl (80.0-105.0); MEAN CORPUSCULAR HEMOGLOBIN 26.2 pg (25.0-35.0); MEAN CORPUSCULAR HGB CONC 32.5 g/dl (31.0-37.0); MEAN PLATELET VOLUME 9.9 fl (7.0-11.0); MONO # 0.2 (0.1-0.6); RED CELL DISTRIBUTION WIDTH 16.3 % (11.5-14.5)
[2017-07-09] MEDS: Albuterol-Ipratrop 3 mg / 0.5 (3 ml) UD IH SCH (07:39)
[2017-07-09 08:04] LABS: WHITE BLOOD COUNT 1.5 10^3/ul (4.5-11.0)
[2017-07-09 09:05] LABS: ALB/GLOB RATIO 0.8 (1.1-1.8); ALKALINE PHOSPHATASE 57 U/L (38-126); ALT/SGPT 60 U/L (7-56); AST/SGOT 92 U/L (14-36); BILIRUBIN,TOTAL 0.2 mg/dL (0.2-1.3); BLOOD UREA NITROGEN 7 mg/dL (7-21); CALCIUM 8.6 mg/dL (8.4-10.5); CARBON DIOXIDE 29 mmol/L (21-33); CHLORIDE 111 mmol/L (98-107); GFR AFRICAN-AMERICAN > 60; GLUCOSE,RANDOM 96 mg/dL (70-110); POTASSIUM 3.7 mmol/L (3.6-5.0); SODIUM 142 mmol/L (132-148); TOTAL PROTEIN 6.2 g/dL (5.8-8.3)
[2017-07-09 09:30] VITALS: BP 87/59; PULSE 92; RESP 18; TEMP 97.4; O2SAT 92
[2017-07-09] MEDS: Nystatin 100,000 Units/ml Oral Susp 5 ml UD PO SCH ×2 (09:51→13:26)
[2017-07-09] MEDS: Atovaquone 750 mg/5 ml Susp UD PO SCH (09:51)
[2017-07-09] MEDS: Sodium Chloride 0.9% 1,000 ML IV SCH (09:59)
--- NOTE | 2017-07-09 11:48 | PN ---
DATE: 07/09/2017 SUBJECTIVE: The patient is in bed, in no acute distress, and nontoxic. PHYSICAL EXAMINATION: VITAL SIGNS: Temperature is 98, blood pressure is 100/60, and respiratory rate of 20. HEENT: Unremarkable. NECK: Supple. LUNGS: Have decreased breath sounds. HEART: Normal S1 and S2. ABDOMEN: Soft and nontender. LABORATORY EXAMINATION: Reveals the patient's white count of 1.5 and hemoglobin of 9. Chemistry reveals a BUN of 7 and creatinine of 0.7. The patient's had a procalcitonin of 0.06 and is noted. is negative. Review of orders reveals the patient to be on Mepron, aztreonam, and azithromycin. Dr. Chapo Collins' note is reviewed. ASSESSMENT AND PLAN: A 37-year-old with sepsis due to healthcare-associated pneumonia, end-stage acquired immunodeficiency syndrome, chronic obstructive lung disease, history of intravenous drug abuse, last used was 4 years ago, on Azactam and azithromycin day #4, may discontinue the Azactam and discharge the patient on p.o. Zithromax and p.o. Mepron and probably see her HIV doctor for followup. Cheikh Chou MD
--- NOTE | 2017-07-09 18:51 | CP.PCM.DIS ---
<YAKELIN GREENWOOD - Last Filed: 07/09/17 19:16> Provider - Provider Date of Admission: 07/06/17 11:16 Attending physician: Ray Lopes MD Time Spent in preparation of Discharge (in minutes): 40 Hospital Course - Lab Results Lab Results: Micro Results 07/06/17 18:09 Naris MRSA Culture (Admit) - Final MRSA NOT DETECTED Most Recent Lab Values WBC 1.5 10^3/ul (4.5-11.0) L* D 07/09/17 06:50 RBC 3.44 10^6/uL (3.5-6.1) L 07/09/17 06:50 Hgb 9.0 g/dL (12.0-16.0) L 07/09/17 06:50 Hct 27.7 % (36.0-48.0) L 07/09/17 06:50 MCV 80.5 fl (80.0-105.0) 07/09/17 06:50 MCH 26.2 pg (25.0-35.0) 07/09/17 06:50 MCHC 32.5 g/dl (31.0-37.0) 07/09/17 06:50 RDW 16.3 % (11.5-14.5) H 07/09/17 06:50 Plt Count 64 10^3/uL (120.0-450.0) L 07/09/17 06:50 MPV 9.9 fl (7.0-11.0) 07/09/17 06:50 Gran % 42.7 % (50.0-68.0) L 07/09/17 06:50 Lymph % (Auto) 17.3 % (22.0-35.0) L 07/09/17 06:50 Greer % (Auto) 14.0 % (1.0-6.0) H 07/09/17 06:50 Eos % (Auto) 26.0 % (1.5-5.0) H 07/09/17 06:50 Baso % (Auto) 0.0 % (0.0-3.0) 07/09/17 06:50 Gran # 0.64 (1.4-6.5) L 07/09/17 06:50 Lymph # 0.3 (1.2-3.4) L 07/09/17 06:50 Greer # 0.2 (0.1-0.6) 07/09/17 06:50 Eos # 0.4 (0.0-0.7) 07/09/17 06:50 Baso # 0.00 K/mm3 (0.0-2.0) 07/09/17 06:50 Neutrophils % (Manual) 68 % (50.0-70.0) 07/07/17 14:25 Band Neutrophils % 13 % (0-2) H* 07/07/17 14:25 Lymphocytes % (Manual) 12 % (22.0-35.0) L 07/07/17 14:25 Monocytes % (Manual) 5 % (1.0-6.0) 07/07/17 14:25 Eosinophils % (Manual) 2 % (0.0-3.0) 07/07/17 14:25 Platelet Evaluation Low (NORMAL) 07/07/17 14:25 Retic Count 1.01 % (0.5-1.5) 07/06/17 10:30 PT 10.8 Seconds (9.9-11.8) 07/06/17 10:03 INR 1.00 (0.93-1.08) 07/06/17 10:03 APTT 36.4 Seconds (23.7-30.8) H 07/06/17 10:03 pO2 96 mm/Hg (30-55) H 07/06/17 10:03 VBG pH 7.29 (7.32-7.43) L 07/06/17 10:03 VBG pCO2 58.0 (40-60) 07/06/17 10:03 VBG HCO3 27.9 mmol/l (21-28) 07/06/17 10:03 VBG Total CO2 29.7 mmol.L (22-28) H 07/06/17 10:03 VBG O2 Sat (Calc) 98.2 % (40-65) H 07/06/17 10:03 VBG Base Excess 0.5 mmol/L (0.0-2.0) 07/06/17 10:03 VBG Potassium 4.4 mmol/L (3.6-5.2) 07/06/17 10:03 Sodium 137.0 mmol/L (132-148) 07/06/17 10:03 Chloride 109.0 mmol/L (98-107) H 07/06/17 10:03 Glucose 100 mg/dl (65-105) 07/06/17 10:03 Lactate 0.7 mmol/L (0.7-2.1) 07/06/17 10:03 FiO2 21.0 % 07/06/17 10:03 Sodium 142 mmol/L (132-148) 07/09/17 08:35 Potassium 3.7 mmol/L (3.6-5.0) 07/09/17 08:35 Chloride 111 mmol/L (98-107) H 07/09/17 08:35 Carbon Dioxide 29 mmol/L (21-33) 07/09/17 08:35 Anion Gap 6 (10-20) L 07/09/17 08:35 BUN 7 mg/dL (7-21) 07/09/17 08:35 Creatinine 0.6 mg/dL (0.5-1.4) 07/09/17 08:35 Est GFR ( Amer) > 60 07/09/17 08:35 Est GFR (Non-Af Amer) > 60 07/09/17 08:35 Random Glucose 96 mg/dL (70-110) 07/09/17 08:35 Calcium 8.6 mg/dL (8.4-10.5) 07/09/17 08:35 Phosphorus 3.3 mg/dL (2.5-4.5) 07/06/17 10:03 Magnesium 1.8 mg/dL (1.7-2.2) 07/07/17 14:25 Total Bilirubin 0.2 mg/dL (0.2-1.3) 07/09/17 08:35 AST 92 U/L (14-36) H D 07/09/17 08:35 ALT 60 U/L (7-56) H 07/09/17 08:35 Alkaline Phosphatase 57 U/L (38-126) 07/09/17 08:35 Lactate Dehydrogenase 462 U/L (333-699) 07/07/17 14:25 Total Protein 6.2 g/dL (5.8-8.3) 07/09/17 08:35 Albumin 2.7 g/dL (3.0-4.8) L 07/09/17 08:35 Globulin 3.5 gm/dL 07/09/17 08:35 Albumin/Globulin Ratio 0.8 (1.1-1.8) L 07/09/17 08:35 Procalcitonin 0.06 NG/ML (0.19-0.49) L 07/06/17 10:03 Venous Blood Potassium 4.4 mmol/L (3.6-5.2) 07/06/17 10:03 Urine Color Yellow (YELLOW) 07/06/17 10:25 Urine Appearance Sl cloudy (CLEAR) 07/06/17 10:25 Urine pH 6.5 (4.7-8.0) 07/06/17 10:25 Ur Specific Kerens 1.025 (1.005-1.035) 07/06/17 10:25 Urine Protein >=300 mg/dL (<30 mg/dL) H 07/06/17 10:25 Urine Glucose (UA) Negative mg/dL (NEGATIVE) 07/06/17 10:25 Urine Ketones Negative mg/dL (NEGATIVE) 07/06/17 10:25 Urine Blood Trace-intact (NEGATIVE) H 07/06/17 10:25 Urine Nitrate Negative (NEGATIVE) 07/06/17 10:25 Urine Bilirubin Negative (NEGATIVE) 07/06/17 10:25 Urine Urobilinogen 1.0 E.U./dL (<1 E.U./dL) H 07/06/17 10:25 Ur Leukocyte Esterase Negative Juliano/uL (NEGATIVE) 07/06/17 10:25 Urine RBC 0 - 2 /hpf (0-2) 07/06/17 10:25 Urine WBC 1 - 3 /hpf (0-6) 07/06/17 10:25 Ur Epithelial Cells 4 - 5 /hpf (0-5) 07/06/17 10:25 Absolute Lymphs (Flow) 199 Cells/mcL (850-3900) L 07/06/17 22:29 % CD3 Cells 72 Percent (57-85) 07/06/17 22:29 Absolute CD3 Count 140 Cells/mcL (840-3060) L 07/06/17 22:29 % CD3-/CD16+/CD56+ 15 Percent (4-25) 07/06/17 22:29 % CD4 Cells 1 Percent (30-61) L 07/06/17 22:29 Absolute CD4 Count <20 Cells/mcL (490-1740) L 07/06/17 22:29 T-Help/Suppress Ratio 0.02 Ratio (0.86-5.00) L 07/06/17 22:29 % CD8 Cells 69 Percent (12-42) H 07/06/17 22:29 Absolute CD8 Count 134 Cells/mcL (180-1170) L 07/06/17 22:29 Absolute CD16/CD56 Count 29 Cells/mcL (70-760) L 07/06/17 22:29 % CD19 Cells 9 Percent (6-29) 07/06/17 22:29 Absolute CD19 Count <20 Cells/mcL (110-660) L 07/06/17 22:29 Cryptococcus Ag Screen Not detected (Not Detected) 07/06/17 22:29 HIV-1 RNA Qnt (RT-PCR) 5.73 (<1.30) H 07/06/17 22:29 Ur L.pneumophila Ag Negative (NEGATIVE) 07/06/17 22:35 P. carinii Source Sputum 07/07/17 12:30 P.carinii Concentration (()) 07/07/17 12:30 Pneumocyst carinii DFA See note 07/07/17 12:30 - Hospital Course Hospital Course: Ms. Ruiz is a 37 year old female, active smoker, with PMH of HIV and now AIDS, HepC, COPD, anemia, TB, opiate dependence on methadone, presented to the ED with cough, congestion, and vomiting for 1 week duration. The patient also stated that she had increased generalized weakness. The patient was on day 7 of Amoxicilin, prescribed by her PMD, who she had recently seen. Patient also stated that her mouth and throat felt very dry. Patient admitted to fever at night, weakness, cough with thick, dark brown sputum. Patient denied night sweats, hematemesis, diarrhea, and dysuria. While in the ED, the patient received empiric antibiotics, steroids, and duoneb. Chest x-ray showed minimal interstitial infiltrate in the right lung base which was not present on the previous study. The Patient was admitted for community acquired pneumonia. Infectious Disease was consulted and Azactam, Azithromycin, and Vancomycin were started for community acquired pneumonia. Sputum culture was negative for Pneumocystis, so the antibiotic regimen for CAP was continued. Today the patient was in no acute distress. Her breathing was improved from yesterday. Patient was seen and examined at bedside with attending. Her lung exam has improved and she states that she is feeling better today. She denies cp , sob, abd pain, or dizziness. Infectious Disease cleared her for discharge on p.o. Doxycycline and Mepron. All of the patients questions were answered to her satisfaction and she agreed with the plan to be discharged. She was also encouraged to follow up with her HIV doctor. - Date & Time of H&P Date of H&P: 07/06/17 Time of H&P: 11:40 Discharge Exam - Additional Findings Additional findings: - Constitutional Appears: No Acute Distress, Cachectic - Head Exam Head Exam: ATRAUMATIC, NORMAL INSPECTION, NORMOCEPHALIC - Eye Exam Eye Exam: EOMI, Normal appearance, PERRL Pupil Exam: NORMAL ACCOMODATION - ENT Exam ENT Exam: Mucous Membranes Moist - Neck Exam Neck Exam: Full ROM, Normal Inspection. absent: Lymphadenopathy, Meningismus - Respiratory Exam Respiratory Exam: Clear to Ausculation Bilateral, Rhonchi (mild b/l lower lobes) , Wheezes, NORMAL BREATHING PATTERN. absent: Accessory Muscle Use, Rales, Respiratory Distress - Cardiovascular Exam Cardiovascular Exam: RRR, +S1, +S2. absent: Gallop, JVD, Rubs - GI/Abdominal Exam GI & Abdominal Exam: Soft, Normal Bowel Sounds. absent: Distended, Tenderness - Extremities Exam Extremities Exam: Full ROM. absent: Pedal Edema - Back Exam Back Exam: NORMAL INSPECTION. absent: CVA tenderness (L), CVA tenderness (R), tenderness - Neurological Exam Neurological Exam: Alert, Awake, Oriented x3 - Psychiatric Exam Psychiatric exam: Anxious - Skin Skin Exam: Normal Color, Warm Discharge Plan - Discharge Medications Prescriptions: Atovaquone [Mepron] 750 mg PO BID #30 packet Doxycycline Hyclate [Doryx] 100 mg PO Q12H #10 cap - Follow Up Plan Condition: GUARDED Disposition: HOME/ ROUTINE Instructions: Human Immunodeficiency Virus and Acquired Immune Deficiency Syndrome (DC), Hypotension (DC), Fall Prevention (DC), Pneumonia (DC) Additional Instructions: - prescribed doxycycline every 12 hours for 5 days - prescribed mepron twice daily for two weeks, f/u your PMD for renewal - please f/u primary MD - if you experience worsening of cough, or weakness, please go to ER for workup Thanks Yakelin Greenwood PGY1 Dr. Lopes, Attending Physician Referrals: Macario Carter MD [Staff Provider] - <Ray Lopes - Last Filed: 07/10/17 12:45> Provider - Provider Date of Admission: 07/06/17 11:16 Attending physician: Ray Lopes MD Hospital Course - Lab Results Lab Results: Micro Results 07/06/17 18:09 Naris MRSA Culture (Admit) - Final MRSA NOT DETECTED Most Recent Lab Values WBC 1.5 10^3/ul (4.5-11.0) L* D 07/09/17 06:50 RBC 3.44 10^6/uL (3.5-6.1) L 07/09/17 06:50 Hgb 9.0 g/dL (12.0-16.0) L 07/09/17 06:50 Hct 27.7 % (36.0-48.0) L 07/09/17 06:50 MCV 80.5 fl (80.0-105.0) 07/09/17 06:50 MCH 26.2 pg (25.0-35.0) 07/09/17 06:50 MCHC 32.5 g/dl (31.0-37.0) 07/09/17 06:50 RDW 16.3 % (11.5-14.5) H 07/09/17 06:50 Plt Count 64 10^3/uL (120.0-450.0) L 07/09/17 06:50 MPV 9.9 fl (7.0-11.0) 07/09/17 06:50 Gran % 42.7 % (50.0-68.0) L 07/09/17 06:50 Lymph % (Auto) 17.3 % (22.0-35.0) L 07/09/17 06:50 Greer % (Auto) 14.0 % (1.0-6.0) H 07/09/17 06:50 Eos % (Auto) 26.0 % (1.5-5.0) H 07/09/17 06:50 Baso % (Auto) 0.0 % (0.0-3.0) 07/09/17 06:50 Gran # 0.64 (1.4-6.5) L 07/09/17 06:50 Lymph # 0.3 (1.2-3.4) L 07/09/17 06:50 Greer # 0.2 (0.1-0.6) 07/09/17 06:50 Eos # 0.4 (0.0-0.7) 07/09/17 06:50 Baso # 0.00 K/mm3 (0.0-2.0) 07/09/17 06:50 Neutrophils % (Manual) 68 % (50.0-70.0) 07/07/17 14:25 Band Neutrophils % 13 % (0-2) H* 07/07/17 14:25 Lymphocytes % (Manual) 12 % (22.0-35.0) L 07/07/17 14:25 Monocytes % (Manual) 5 % (1.0-6.0) 07/07/17 14:25 Eosinophils % (Manual) 2 % (0.0-3.0) 07/07/17 14:25 Platelet Evaluation Low (NORMAL) 07/07/17 14:25 Retic Count 1.01 % (0.5-1.5) 07/06/17 10:30 PT 10.8 Seconds (9.9-11.8) 07/06/17 10:03 INR 1.00 (0.93-1.08) 07/06/17 10:03 APTT 36.4 Seconds (23.7-30.8) H 07/06/17 10:03 pO2 96 mm/Hg (30-55) H 07/06/17 10:03 VBG pH 7.29 (7.32-7.43) L 07/06/17 10:03 VBG pCO2 58.0 (40-60) 07/06/17 10:03 VBG HCO3 27.9 mmol/l (21-28) 07/06/17 10:03 VBG Total CO2 29.7 mmol.L (22-28) H 07/06/17 10:03 VBG O2 Sat (Calc) 98.2 % (40-65) H 07/06/17 10:03 VBG Base Excess 0.5 mmol/L (0.0-2.0) 07/06/17 10:03 VBG Potassium 4.4 mmol/L (3.6-5.2) 07/06/17 10:03 Sodium 137.0 mmol/L (132-148) 07/06/17 10:03 Chloride 109.0 mmol/L (98-107) H 07/06/17 10:03 Glucose 100 mg/dl (65-105) 07/06/17 10:03 Lactate 0.7 mmol/L (0.7-2.1) 07/06/17 10:03 FiO2 21.0 % 07/06/17 10:03 Sodium 142 mmol/L (132-148) 07/09/17 08:35 Potassium 3.7 mmol/L (3.6-5.0) 07/09/17 08:35 Chloride 111 mmol/L (98-107) H 07/09/17 08:35 Carbon Dioxide 29 mmol/L (21-33) 07/09/17 08:35 Anion Gap 6 (10-20) L 07/09/17 08:35 BUN 7 mg/dL (7-21) 07/09/17 08:35 Creatinine 0.6 mg/dL (0.5-1.4) 07/09/17 08:35 Est GFR ( Amer) > 60 07/09/17 08:35 Est GFR (Non-Af Amer) > 60 07/09/17 08:35 Random Glucose 96 mg/dL (70-110) 07/09/17 08:35 Calcium 8.6 mg/dL (8.4-10.5) 07/09/17 08:35 Phosphorus 3.3 mg/dL (2.5-4.5) 07/06/17 10:03 Magnesium 1.8 mg/dL (1.7-2.2) 07/07/17 14:25 Total Bilirubin 0.2 mg/dL (0.2-1.3) 07/09/17 08:35 AST 92 U/L (14-36) H D 07/09/17 08:35 ALT 60 U/L (7-56) H 07/09/17 08:35 Alkaline Phosphatase 57 U/L (38-126) 07/09/17 08:35 Lactate Dehydrogenase 462 U/L (333-699) 07/07/17 14:25 Total Protein 6.2 g/dL (5.8-8.3) 07/09/17 08:35 Albumin 2.7 g/dL (3.0-4.8) L 07/09/17 08:35 Globulin 3.5 gm/dL 07/09/17 08:35 Albumin/Globulin Ratio 0.8 (1.1-1.8) L 07/09/17 08:35 Procalcitonin 0.06 NG/ML (0.19-0.49) L 07/06/17 10:03 Venous Blood Potassium 4.4 mmol/L (3.6-5.2) 07/06/17 10:03 Urine Color Yellow (YELLOW) 07/06/17 10:25 Urine Appearance Sl cloudy (CLEAR) 07/06/17 10:25 Urine pH 6.5 (4.7-8.0) 07/06/17 10:25 Ur Specific Kerens 1.025 (1.005-1.035) 07/06/17 10:25 Urine Protein >=300 mg/dL (<30 mg/dL) H 07/06/17 10:25 Urine Glucose (UA) Negative mg/dL (NEGATIVE) 07/06/17 10:25 Urine Ketones Negative mg/dL (NEGATIVE) 07/06/17 10:25 Urine Blood Trace-intact (NEGATIVE) H 07/06/17 10:25 Urine Nitrate Negative (NEGATIVE) 07/06/17 10:25 Urine Bilirubin Negative (NEGATIVE) 07/06/17 10:25 Urine Urobilinogen 1.0 E.U./dL (<1 E.U./dL) H 07/06/17 10:25 Ur Leukocyte Esterase Negative Juliano/uL (NEGATIVE) 07/06/17 10:25 Urine RBC 0 - 2 /hpf (0-2) 07/06/17 10:25 Urine WBC 1 - 3 /hpf (0-6) 07/06/17 10:25 Ur Epithelial Cells 4 - 5 /hpf (0-5) 07/06/17 10:25 Absolute Lymphs (Flow) 199 Cells/mcL (850-3900) L 07/06/17 22:29 % CD3 Cells 72 Percent (57-85) 07/06/17 22:29 Absolute CD3 Count 140 Cells/mcL (840-3060) L 07/06/17 22:29 % CD3-/CD16+/CD56+ 15 Percent (4-25) 07/06/17 22:29 % CD4 Cells 1 Percent (30-61) L 07/06/17 22:29 Absolute CD4 Count <20 Cells/mcL (490-1740) L 07/06/17 22:29 T-Help/Suppress Ratio 0.02 Ratio (0.86-5.00) L 07/06/17 22:29 % CD8 Cells 69 Percent (12-42) H 07/06/17 22:29 Absolute CD8 Count 134 Cells/mcL (180-1170) L 07/06/17 22:29 Absolute CD16/CD56 Count 29 Cells/mcL (70-760) L 07/06/17 22:29 % CD19 Cells 9 Percent (6-29) 07/06/17 22:29 Absolute CD19 Count <20 Cells/mcL (110-660) L 07/06/17 22:29 Cryptococcus Ag Screen Not detected (Not Detected) 07/06/17 22:29 HIV-1 RNA Qnt (RT-PCR) 5.73 (<1.30) H 07/06/17 22:29 Ur L.pneumophila Ag Negative (NEGATIVE) 07/06/17 22:35 Pneumocystis Source Serum 07/06/17 22:29 P. carinii Source Sputum 07/07/17 12:30 P.carinii Concentration (()) 07/07/17 12:30 Pneumocyst carinii DFA See note 07/07/17 12:30 S. pneumoniae Antigen Not detected 07/06/17 22:29 Attending/Attestation - Attestation I have personally seen and examined this patient.: Yes I have fully participated in the care of the patient.: Yes I have reviewed all pertinent clinical information, including history, physical exam and plan: Yes Notes (Text): I have seen and examined the patient at bedside. Agree with the note above with the following additions/ exceptions: Briefly this is 37 year old female with history of HIV, AIDS, COPD, anemia, methadone dependence, panyctopenia who was admitted today for evaluation of cough, congestion, vomiting and found to have CAP. Patient was given vanco, azactam and zithromax. Sputum for pcp is negative. All cultures are negative. Pancytopenia stable. Advised patient regarding need to be compliant with HIV medications. Continue methadone 110 mg which was confirmed with methadone clinic. Today the patient is in no acute distress. Her breathing has improved. Her lung exam has improved. She denies cp, sob, abd pain, or dizziness. Infectious Disease cleared her for discharge on p.o. Doxycycline and Mepron. Upon discharge patient will follow up with Dr Carter. Dr Ray Lopes
[2017-07-10 19:39] LABS: HEPATITIS C VIRAL RNA QUAL Not detected
[2017-07-12 02:22] LABS: (1-3)-B-D GLUCAN <31 pg/mL
== END 2017-07-09 15:21 | disposition home or self-care (01) | DRG 541 ==
LOC: ED 08:58 → ERH 11:16 → 5RSO 12:57
PROVIDERS: ADMIT Hospitalist; ATTEND Hospitalist
DX: J44.0 Chronic obstructive pulmonary disease with (acute) lower respiratory infection (principal); J18.9 Pneumonia, unspecified organism; B20 Human immunodeficiency virus [HIV] disease; B37.0 Candidal stomatitis; F11.20 Opioid dependence, uncomplicated; D61.818 Other pancytopenia; E87.6 Hypokalemia; R64 Cachexia; M41.9 Scoliosis, unspecified; K21.9 Gastro-esophageal reflux disease without esophagitis; F17.200 Nicotine dependence, unspecified, uncomplicated; I95.2 Hypotension due to drugs; T40.3X5A Adverse effect of methadone, initial encounter; Z68.1 Body mass index [BMI] 19.9 or less, adult; Z86.19 Personal history of other infectious and parasitic diseases; Z86.11 Personal history of tuberculosis; Z88.0 Allergy status to penicillin

== ENCOUNTER 2017-11-22 11:55 | Emergency (ER) | payer OTHER ==
[2017-11-22 12:11] VITALS: RESP 18; TEMP 98.1; BMI 16.4
--- NOTE | 2017-11-22 12:30 | ED PDOC ---
Arrival/HPI - General Time Seen by Provider: 11/22/17 12:02 Historian: Patient - History of Present Illness Narrative History of Present Illness (Text): 11/22/17 12:15 Veronica Ruiz is a 37 year old female, whose past medical history includes HIV, AIDS, COPD on nebulizer, Pneumonia, and methodone dependent, who presents to the emergency department complaining of persistent productive cough and fever for 3 days. Patient states that she experiences associated vomiting, rhinorrhea, sneezing, and body aches. No other complaints at this time. PMD: Dr. Carter Time/Duration: < week Symptom Onset: Gradual Symptom Course: Unchanged Activities at Onset: Rest Context: Home Past Medical History - Provider Review Nursing Documentation Reviewed: Yes - Infectious Disease Hx of Infectious Diseases: None - Tetanus Immunization Tetanus Immunization: Unknown - Cardiac Hx Cardiac Disorders: Yes Hx Hypotension: Yes - Pulmonary Hx Respiratory Disorders: Yes (has nebulizer machine at home) Hx Asthma: Yes Hx Bronchitis: Yes Hx Chronic Obstructive Pulmonary Disease (COPD): Yes Hx Pneumonia: Yes - Neurological Hx Migraine: Yes - HEENT Hx Macular Degeneration: Yes - Renal Hx Renal Disorder: No - Endocrine/Metabolic Hx Endocrine Disorders: No - Hematological/Oncological Hx Blood Disorders: Yes (blood transfusion) Hx Hepatitis C: Yes (IVDU) - Integumentary Hx Dermatological Disorder: Yes - Musculoskeletal/Rheumatological Hx Musculoskeletal Disorders: Yes Hx Back Pain: Yes Other/Comment: SCOLIOSIS - Gastrointestinal Hx Gastrointestinal Disorders: Yes - Genitourinary/Gynecological Hx Genitourinary Disorders: Yes Hx Urinary Tract Infection: Yes - Psychiatric Hx Psychophysiologic Disorder: Yes Hx Anxiety: Yes Hx Substance Use: No Other/Comment: hx ivdu/cocaine stopped 6 yrs ago on methadone program, smokes 1 ppd has not smoked in 4 days - Past Surgical History Past Surgical History: No Previous - Surgical History Other/Comment: right anterior neck SX for abcesses bx neg - Anesthesia Hx Anesthesia: Yes Hx Anesthesia Reactions: No - Suicidal Assessment Feels Threatened In Home Enviroment: No Family/Social History - Physician Review Nursing Documentation Reviewed: Yes Family/Social History: No Known Family HX Smoking Status: Light Smoker < 10 Cigarettes Daily Hx Alcohol Use: No Hx Substance Use: No Substance used: herion, cocaine Hx Substance Use Treatment: No Allergies/Home Meds Allergies/Adverse Reactions: Allergies levofloxacin [From Levaquin] Allergy (Verified 07/06/17 13:36) RASH Penicillins Allergy (Verified 07/06/17 13:36) RASH flexeril Adverse Reaction (Uncoded 07/06/17 13:36) RASH Home Medications: Home Meds Medication Instructions Recorded Confirmed Elviteg/Cob/Emtri/Tenof Alafen 1 tab PO DAILY 03/17/17 11/22/17 [Genvoya Tablet] Darunavir [Prezista] 800 mg PO DAILY 07/06/17 11/22/17 Methadone 110 mg PO DAILY 07/07/17 11/22/17 Review of Systems - Physician Review All systems were reviewed & negative as marked: Yes - Review of Systems Constitutional: Fevers, Other (body aches) Eyes: absent: Vision Changes ENT: Sore Throat, Rhinorrhea, Sinus Congestion. absent: Hearing Changes Respiratory: Cough, Sputum Cardiovascular: absent: Chest Pain Gastrointestinal: Vomiting. absent: Abdominal Pain Genitourinary Female: absent: Dysuria Musculoskeletal: absent: Arthralgias Skin: absent: Rash, Pruritis Neurological: absent: Headache, Dizziness Endocrine: absent: Diaphoresis Hemo/Lymphatic: absent: Adenopathy Psychiatric: absent: Anxiety Physical Exam Vital Signs Reviewed: Yes Vital Signs Temp Pulse Resp BP Pulse Ox 11/22/17 16:04 90 18 135/65 95 11/22/17 14:35 94 H 18 140/61 95 11/22/17 13:48 76 18 97/63 L 98 11/22/17 13:35 80 18 92/58 L 97 11/22/17 12:12 18 11/22/17 12:09 98.1 F 92 H 18 93/52 L 92 L Temperature: Afebrile Blood Pressure: Hypotensive Pulse: Tachycardic Appearance: Positive for: Ill-Appearing Mental Status: Positive for: Alert and Oriented X 3 Medical Decision Making ED Course and Treatment: 11/22/17 12:15 Impression: 37 year old female, whose past medical history includes HIV, AIDS, COPD on nebulizer, Pneumonia, and methodone dependent, who presents to the emergency department complaining of persistent productive cough and fever for 3 days. Differential Diagnosis included but are not limited to: Influenza vs. Pneumonia Plan: -- EKG -- Chest X-ray -- VBG and Blood Culture -- Urinalysis and Urine Culture -- Labs -- Duoneb and Solu-Medrol -- Reassess and disposition Prior Visits: Notes and results from previous visits were reviewed. Patient was last seen in the emergency department on 07/06/17 complaining of cough, congestion, and vomiting for 1 week. Progress Notes: EKG: Ordered, reviewed, and independently interpreted the EKG. Rate : 90 BPM Rhythm : NSR Interpretation : No ST-segment elevations or depressions, no T-wave inversions, normal intervals. Comparison : No previous EKG for comparison. 11/22/17 14:06 Chest X-ray: Creator : Marta Cason MD FINDINGS: LUNGS:The lungs are hyperinflated and there is peribronchial thickening with chronic changes in both lungs. No focal consolidation. PLEURA:No significant pleural effusion identified, no pneumothorax apparent. CARDIOVASCULAR:Normal. OSSEOUS STRUCTURES:No significant abnormalities. VISUALIZED UPPER ABDOMEN:Normal. OTHER FINDINGS:None. IMPRESSION: No active pulmonary disease. COPD. On reevaluation patient felt much better. She is able to get up without any lightheadedness or dizziness. Her baseline BP is low as noted. Her blood pressure did improve in the ED. She has a negative CXR but in light of her symptoms, low WBC and h/o HIV with unknown CD4 count. - Lab Interpretations Lab Results: 11/22/17 12:35 11/22/17 14:50 Lab Results 11/22/17 14:50: Sodium 140, Chloride 108 H, Potassium 3.3 L, Carbon Dioxide 22, Anion Gap 14, BUN 27 H, Creatinine 1.2, Est GFR ( Amer) > 60, Est GFR ( Non-Af Amer) 51, Random Glucose 124 H, Calcium 8.5, Total Bilirubin 0.2, AST 23 , ALT 24, Alkaline Phosphatase 55, Total Protein 6.8, Albumin 2.9 L, Globulin 4.0, Albumin/Globulin Ratio 0.7 L 11/22/17 12:35: Influenza Typ A,B (EIA) Negative for flu a/b 11/22/17 12:35: Urine Color Yellow, Urine Appearance Clear, Urine pH 6.0, Ur Specific [place] >= 1.030, Urine Protein 100 H, Urine Glucose (UA) Negative, Urine Ketones Trace H, Urine Blood Negative, Urine Nitrate Negative, Urine Bilirubin Small H, Urine Urobilinogen 0.2, Ur Leukocyte Esterase Negative, Urine RBC Negative, Urine WBC 0 - 2, Ur Epithelial Cells 3 - 4, Urine Bacteria Trace, Hyaline Casts 0 - 2 11/22/17 12:35: pO2 100 H, VBG pH 7.36, VBG pCO2 43.0, VBG HCO3 24.3, VBG Total CO2 25.6, VBG O2 Sat (Calc) 98.3 H, VBG Base Excess -1.3 L, VBG Potassium 4.2, Sodium 138.0, Chloride 109.0 H, Glucose 127 H, Lactate 1.1, FiO2 21.0, Venous Blood Potassium 4.2 11/22/17 12:35: PT 12.1, INR 1.05, APTT 33.3 11/22/17 12:35: WBC 3.1 L D, RBC 3.83, Hgb 10.2 L, Hct 30.8 L, MCV 80.4, MCH 26.6, MCHC 33.1, RDW 15.0 H, Plt Count 140, MPV 9.6, Gran % 62.0, Lymph % (Auto ) 12.9 L, Lamb % (Auto) 11.3 H, Eos % (Auto) 13.5 H, Baso % (Auto) 0.3, Gran # 1.93, Lymph # 0.4 L, Lamb # 0.4, Eos # 0.4, Baso # 0.01 I have reviewed the lab results: Yes - RAD Interpretation Radiology Orders: 11/22/17 12:21 CHEST PORTABLE [RAD] Stat - Medication Orders Current Medication Orders: Discontinued Medications Albuterol/Ipratropium (Duoneb 3 Mg/0.5 Mg (3 Ml) Ud) 3 ml IH Q15M EDSON Stop: 11/22/17 13:01 Last Admin: 11/22/17 13:10 Dose: 3 ml Azithromycin (Zithromax) 500 mg PO STAT STA PRN Reason: Protocol Stop: 11/22/17 15:32 Last Admin: 11/22/17 16:10 Dose: 500 mg Sodium Chloride (Sodium Chloride 0.9%) 1,000 mls @ 999 mls/hr IV .Q1H1M STA Stop: 11/22/17 13:49 Last Admin: 11/22/17 12:50 Dose: 999 mls/hr eMAR Start Stop Document 11/22/17 12:50 SF (Rec: 11/22/17 13:33 SF [id number]) Intravenous Solution Start Date 11/22/17 Start Time 12:50 End Date 11/22/17 End time 13:51 Total Infusion Time 61 Sodium Chloride (Sodium Chloride 0.9%) 1,000 mls @ 999 mls/hr IV .Q1H1M STA Stop: 11/22/17 14:42 Last Admin: 11/22/17 14:30 Dose: 999 mls/hr eMAR Start Stop Document 11/22/17 14:30 SF (Rec: 11/22/17 15:02 SF [id number]) Intravenous Solution Start Date 11/22/17 Start Time 14:30 End Date 11/22/17 End time 15:31 Total Infusion Time 61 Methylprednisolone (Solu-Medrol) 125 mg IVP STAT STA Stop: 11/22/17 12:21 Last Admin: 11/22/17 13:00 Dose: 125 mg IVP Administration Document 11/22/17 13:00 SF (Rec: 11/22/17 13:34 SF [id number]) Charges for Administration # of IVP Administrations 1 Potassium Chloride (K-Dur 20 Meq Er Tab) 40 meq PO STAT STA Stop: 11/22/17 15:25 Last Admin: 11/22/17 16:09 Dose: 40 meq - Scribe Statement The provider has reviewed the documentation as recorded by the [facility] [place] Provider Scribe Attestation: All medical record entries made by the Scribe were at my direction and personally dictated by me. I have reviewed the chart and agree that the record accurately reflects my personal performance of the history, physical exam, medical decision making, and the department course for this patient. I have also personally directed, reviewed, and agree with the discharge instructions and disposition. Disposition/Present on Arrival - Present on Arrival Any Indicators Present on Arrival: No History of DVT/PE: No History of Uncontrolled Diabetes: No Urinary Catheter: No History Surgical Site Infection Following: None - Disposition Have Diagnosis and Disposition been Completed?: Yes Diagnosis: COPD (chronic obstructive pulmonary disease), Upper respiratory infection Disposition: HOME/ ROUTINE Disposition Time: 16:19 Patient Plan: Discharge Condition: IMPROVED Discharge Instructions (ExitCare): Acute Bronchitis (ED), COPD (Chronic Obstructive Pulmonary Disease) (ED) Additional Instructions: Ms Ruiz, thank you for letting us take care of you today. Your provider was Dr. Fraire. You were treated for Bronchitis, Viral Syndrome. The emergency medical care you received today was directed at your acute symptoms. If you were prescribed any medication, please fill it and take as directed. It may take several days for your symptoms to resolve. Return to the Emergency Department if your symptoms worsen, do not improve, or if you have any other problems. Please contact your doctor or call one of the physicians/clinics you have been referred to that are listed on the Patient Visit Information form that is included in your discharge packet. Bring any paperwork you were given at discharge with you along with any medications you are taking to your follow up visit. Our treatment cannot replace ongoing medical care by a primary care provider (PCP) outside of the emergency department. Thank you for allowing the [facility] team to be part of your care today. If you had an X-Ray or CT scan: A Radiologist will review the ED reading if any change in treatment is needed we will contact you. If you had a blood, urine, or wound culture: It will take several days for the results, if any change in treatment is needed we will contact you. If you had an STI test: It will take 48 hours for the results. Please call after 1 week if you have not heard back. Prescriptions: Albuterol HFA [Ventolin HFA 90 mcg/actuation (8 g)] 2 puff IH Q4 #1 puff Azithromycin [Z-Royal] 250 mg PO DAILY #4 tab predniSONE [predniSONE Tab] 40 mg PO DAILY #8 tab Referrals: Macario Carter MD [Primary Care Provider] - Follow up with primary Forms: [employer] (Korean), WORK NOTE
[2017-11-22] MEDS: Albuterol-Ipratrop 3 mg / 0.5 (3 ml) UD IH SCH ×3 (12:40→13:10)
[2017-11-22] MEDS ORDERED: Sodium Chloride 0.9% 1,000 ML IV STA ×2 (12:49→13:42)
[2017-11-22 13:05] LABS: BASO # 0.01 K/mm3 (0.0-2.0); BASO % 0.3 % (0.0-3.0); EOS # 0.4 (0.0-0.7); EOS % 13.5 % (1.5-5.0); GRAN # 1.93 (1.4-6.5); HEMOGLOBIN 10.2 g/dL (12.0-16.0); LYMPH # 0.4 (1.2-3.4); LYMPH % 12.9 % (22.0-35.0); MEAN CELL VOLUME 80.4 fl (80.0-105.0); MEAN CORPUSCULAR HEMOGLOBIN 26.6 pg (25.0-35.0); MEAN CORPUSCULAR HGB CONC 33.1 g/dl (31.0-37.0); MEAN PLATELET VOLUME 9.6 fl (7.0-11.0); MONO # 0.4 (0.1-0.6); MONO % 11.3 % (1.0-6.0); RBC 3.83 10^6/uL (3.5-6.1); WHITE BLOOD COUNT 3.1 10^3/ul (4.5-11.0)
[2017-11-22 13:06] LABS: URINE BILIRUBIN SMALL (NEGATIVE); URINE BLOOD NEGATIVE (NEGATIVE); URINE GLUCOSE (UA) NEGATIVE (NEGATIVE); URINE LEUKOCYTE ESTERASE NEGATIVE Leu/uL (NEGATIVE); URINE NITRATE NEGATIVE (NEGATIVE); URINE PROTEIN 100 mg/dL (<30 mg/dL); URINE UROBILINOGEN 0.2 E.U./dL (<1 E.U./dL)
[2017-11-22 13:07] LABS: VENOUS BLOOD GAS BASE EXCESS -1.3 mmol/L (0.0-2.0); VENOUS BLOOD GAS PO2 100 mm/Hg (30-55); VENOUS BLOOD PH 7.36 (7.32-7.43)
[2017-11-22 13:08] LABS: URINE APPEARANCE CLEAR (CLEAR); URINE COLOR YELLOW (YELLOW)
--- NOTE | 2017-11-22 13:16 | RAD ---
HISTORY: cough r/o pna COMPARISON: 08/06/2017. FINDINGS: LUNGS: The lungs are hyperinflated and there is peribronchial thickening with chronic changes in both lungs. No focal consolidation. PLEURA: No significant pleural effusion identified, no pneumothorax apparent. CARDIOVASCULAR: Normal. OSSEOUS STRUCTURES: No significant abnormalities. VISUALIZED UPPER ABDOMEN: Normal. OTHER FINDINGS: None. IMPRESSION: No active pulmonary disease. COPD.
[2017-11-22 13:35] LABS: URINE BACTERIA TRACE (NEG); URINE HYALINE CAST 0 - 2 /hpf; URINE RBC NEGATIVE /hpf (0-2); URINE WBC 0 - 2 /hpf (0-6)
[2017-11-22 13:37] LABS: INR 1.05 (0.93-1.08); PARTIAL THROMBOPLASTIN TIME 33.3 Seconds (25.1-36.5); PROTHROMBIN TIME 12.1 SECONDS (9.4-12.5)
[2017-11-22 14:35] VITALS: O2SAT 95
[2017-11-22 15:23] LABS: ALB/GLOB RATIO 0.7 (1.1-1.8); ALBUMIN 2.9 g/dL (3.0-4.8); ALT/SGPT 24 U/L (7-56); AST/SGOT 23 U/L (14-36); BLOOD UREA NITROGEN 27 mg/dL (7-21); CALCIUM 8.5 mg/dL (8.4-10.5); GFR AFRICAN-AMERICAN > 60; GFR NON-AFRICAN AMERICAN 51
[2017-11-22] MEDS ORDERED: Potassium Chloride 20 mEq ER Tab PO STA (15:24)
[2017-11-22 16:06] VITALS: BP 135/65; PULSE 90
--- NOTE | 2017-11-22 18:07 | CARD ---
APPROVED REPORT EKG Measurement Heart [id number] <Conclusion> Normal sinus rhythm Normal ECG
== END 2017-11-22 16:19 | disposition home or self-care (01) ==
LOC: ED 11:55
DX: J44.9 Chronic obstructive pulmonary disease, unspecified (principal); J06.9 Acute upper respiratory infection, unspecified; F17.210 Nicotine dependence, cigarettes, uncomplicated
CPT/HCPCS: 71045; 80053; 81001; 82803; 85025; 85610; 85730; 87040; 87086; 87804; 93005; 96361; 96374; 99285; J2930; J7040

== ENCOUNTER 2018-02-07 17:47 | Inpatient (IN) | payer OTHER ==
[2018-02-07 18:43] VITALS: BMI 16.0
--- NOTE | 2018-02-07 19:38 | ED PDOC ---
Arrival/HPI <Hermann Sales - Last Filed: 02/08/18 01:17> - General Historian: Patient - History of Present Illness Time/Duration: Other (see hpi) Context: Home <Kenn Pak - Last Filed: 02/12/18 11:46> - General Chief Complaint: Fever Time Seen by Provider: 02/07/18 19:04 - History of Present Illness Narrative History of Present Illness (Text): 02/07/18 19:38 Veronica Ruiz is a 37 year old female, whose past medical history includes HIV, AIDS, COPD , PNA, presents to this emergency department complaining of shortness of breath, cough x 4 days. Patient stated she was seen by DR. Carter early today, who recommended patient to come to emergency department for admission. Patient stated she does not longer has an Infectious doctor. Her CD4 is UKN, and Viral load is UKN, but she stated her last blood test was "bad" (Kenn Pak) Past Medical History - Provider Review Nursing Documentation Reviewed: Yes - Infectious Disease Hx of Infectious Diseases: None - Tetanus Immunization Tetanus Immunization: Unknown - Cardiac Hx Cardiac Disorders: Yes Hx Hypotension: Yes - Pulmonary Hx Respiratory Disorders: Yes (has nebulizer machine at home) Hx Asthma: Yes Hx Bronchitis: Yes Hx Chronic Obstructive Pulmonary Disease (COPD): Yes Hx Pneumonia: Yes - Neurological Hx Migraine: Yes - HEENT Hx Macular Degeneration: Yes - Renal Hx Renal Disorder: No - Endocrine/Metabolic Hx Endocrine Disorders: No - Hematological/Oncological Hx Blood Disorders: Yes (blood transfusion) Hx Hepatitis C: Yes (IVDU) - Integumentary Hx Dermatological Disorder: Yes - Musculoskeletal/Rheumatological Hx Musculoskeletal Disorders: Yes Hx Back Pain: Yes Other/Comment: SCOLIOSIS - Gastrointestinal Hx Gastrointestinal Disorders: Yes - Genitourinary/Gynecological Hx Genitourinary Disorders: Yes Hx Urinary Tract Infection: Yes - Psychiatric Hx Psychophysiologic Disorder: Yes Hx Anxiety: Yes Hx Substance Use: No Other/Comment: hx ivdu/cocaine stopped 6 yrs ago on methadone program, smokes 1 ppd has not smoked in 4 days - Past Surgical History Past Surgical History: No Previous - Surgical History Other/Comment: right anterior neck SX for abcesses bx neg - Anesthesia Hx Anesthesia: Yes Hx Anesthesia Reactions: No Hx Malignant Hyperthermia: No - Suicidal Assessment Feels Threatened In Home Enviroment: No <Kenn Pak P - Last Filed: 02/12/18 11:46> Family/Social History - Physician Review Nursing Documentation Reviewed: Yes Family/Social History: Other (noncontributory) Smoking Status: Light Smoker < 10 Cigarettes Daily Hx Alcohol Use: No Hx Substance Use: No Substance used: herion, cocaine Hx Substance Use Treatment: No <Kenn Pak P - Last Filed: 02/12/18 11:46> Allergies/Home Meds <HenrryHermann - Last Filed: 02/08/18 01:17> <Kenn Pak P - Last Filed: 02/12/18 11:46> Allergies/Adverse Reactions: Allergies levofloxacin [From Levaquin] Allergy (Verified 02/07/18 18:46) RASH Penicillins Allergy (Verified 02/07/18 18:46) RASH azithromycin [From Zithromax] Adverse Reaction (Verified 02/08/18 07:55) RASH flexeril Adverse Reaction (Uncoded 02/07/18 18:46) RASH Home Medications: Home Meds Medication Instructions Recorded Confirmed Elviteg/Cob/Emtri/Tenof Alafen 1 tab PO DAILY 03/17/17 02/07/18 [Genvoya Tablet] Darunavir [Prezista] 800 mg PO DAILY 07/06/17 02/07/18 Methadone 110 mg PO DAILY 07/07/17 02/07/18 Review of Systems - Review of Systems Constitutional: Normal. absent: Fatigue, Weight Change, Fevers Eyes: Normal ENT: Normal Respiratory: SOB, Cough, Sputum, Wheezing Cardiovascular: Normal. absent: Chest Pain, Palpitations Gastrointestinal: Normal. absent: Abdominal Pain, Nausea, Vomiting Genitourinary Female: Normal Musculoskeletal: Normal Skin: Normal. absent: Rash Neurological: Normal. absent: Headache, Dizziness, Focal Weakness, Gait Changes , Speech Changes, Facial Droop, Disequilibrium Endocrine: Normal Hemo/Lymphatic: Normal Psychiatric: Normal <Kenn Pak - Last Filed: 02/12/18 11:46> Physical Exam Temperature: Afebrile Blood Pressure: Normal Pulse: Regular Respiratory Rate: Normal Appearance: Positive for: Well-Appearing, Non-Toxic, Comfortable Pain Distress: None Mental Status: Positive for: Alert and Oriented X 3 - Systems Exam Head: Present: Atraumatic, Normocephalic Pupils: Present: PERRL Extroacular Muscles: Present: EOMI Conjunctiva: Present: Normal Mouth: Present: Moist Mucous Membranes Neck: Present: Normal Range of Motion Respiratory/Chest: Present: Good Air Exchange, Wheezes, Decreased Breath Sounds , Rhonchi. No: Respiratory Distress, Accessory Muscle Use, Tachypneic, Tender to Palpation Cardiovascular: Present: Regular Rate and Rhythm, Normal S1, S2. No: Murmurs Abdomen: No: Tenderness, Distention, Peritoneal Signs Back: Present: Normal Inspection. No: CVA Tenderness Upper Extremity: Present: Normal Inspection, Normal ROM. No: Cyanosis, Edema Lower Extremity: Present: Normal Inspection, Normal ROM. No: Edema Neurological: Present: GCS=15, CN II-XII Intact, Speech Normal Skin: Present: Warm, Dry, Normal Color. No: Rashes Psychiatric: Present: Alert, Oriented x 3, Normal Insight, Normal Concentration <Kenn Pak - Last Filed: 02/12/18 11:46> Vital Signs Temp Pulse Resp BP Pulse Ox 02/08/18 01:25 20 98/56 L 95 02/08/18 01:16 98.9 F 100 H 22 93/57 L 88 L 02/07/18 21:30 94 H 18 92/57 L 95 02/07/18 19:30 94 H 20 96/62 L 92 L 02/07/18 17:47 92 H 20 84/60 L 100 Medical Decision Making <Hermann Sales - Last Filed: 02/08/18 01:17> - EKG Interpretation Interpreted by ED Physician: Yes (NSR @ [address] changes) Type: 12 lead EKG Comparison: No previous EKG avail. <Kenn Pak - Last Filed: 02/12/18 11:46> ED Course and Treatment: 02/07/18 21:08 Case endorsed to me by BOZENA Pak. Patient was sent in by Dr. Carter for a fever and thinking patient may need admission for hospital. Patient has been out of HIV medication for 6 weeks. Pending labs, Chest X-Ray, Reassess and disposition 02/07/18 22:34 CXR Impression: As read by me, right lower lobe infiltrate. 02/07/18 22:53 Call send out to Dr. Carter with no answer. Still pending call back. 02/08/18 00:47 Dr. Carter after waiting for a call back, he finally called back. Case discussed with Dr. Carter who is aware and agrees with the plan. Accepts patient into his service. (Hermann Sales) 02/07/18 20:53 Case was endorsed to Dr. Sales. Pending labs, and chest x-rays (Pak,Nahim P) - Lab Interpretations Microbiology Results: Microbiology Results 02/07/18 20:55 Blood Blood Culture - Preliminary NO GROWTH AFTER 4 DAYS 02/07/18 20:30 Blood Blood Culture - Preliminary NO GROWTH AFTER 4 DAYS 02/07/18 21:05 Urine Urine Culture - Final No Growth (<1,000 CFU/ML) Lab Results: 02/07/18 20:50 02/07/18 20:50 Lab Results 02/07/18 21:09: pO2 32, VBG pH 7.21 L, VBG pCO2 76.0 H*, VBG HCO3 30.4 H, VBG Total CO2 32.7 H, VBG O2 Sat (Calc) 58.7, VBG Base Excess 0.4, VBG Potassium 4.3 , Glucose 84, Lactate 0.6 L, FiO2 21.0, Sodium 137.0, Chloride 105.0, Venous Blood Potassium 4.3 02/07/18 21:05: Urine Color Yellow, Urine Appearance Clear, Urine pH 6.0, Ur Specific Dewitt >= 1.030, Urine Protein 100 H, Urine Glucose (UA) Negative, Urine Ketones Negative, Urine Blood Negative, Urine Nitrate Negative, Urine Bilirubin Negative, Urine Urobilinogen 0.2, Ur Leukocyte Esterase Negative, Urine RBC 2 - 5, Urine WBC 10 - 15, Ur Epithelial Cells 1 - 3, Urine Bacteria Mod, Hyaline Casts 0 - 2, Urine Other Uren, Urine HCG, Qual Negative 02/07/18 20:50: Sodium 139, Potassium 4.2, Chloride 102, Carbon Dioxide 27, Anion Gap 14, BUN 47 H, Creatinine 2.0 H, Est GFR ( Amer) 34, Est GFR ( Non-Af Amer) 28, Random Glucose 81, Calcium 8.5, Phosphorus 5.6 H, Magnesium 2.3 H, Total Bilirubin 0.2, AST 61 H D, ALT 31, Alkaline Phosphatase 54, Total Protein 7.5, Albumin 3.2, Globulin 4.3, Albumin/Globulin Ratio 0.7 L 02/07/18 20:50: PT 10.6, INR 0.93, APTT 37.9 H 02/07/18 20:50: Procalcitonin < 0.05 L 02/07/18 20:50: WBC 2.9 L*, RBC 3.85, Hgb 10.1 L, Hct 30.7 L, MCV 79.7 L, MCH 26.2, MCHC 32.9, RDW 16.2 H, Plt Count 84 L, MPV 9.8, Gran % 70.1 H, Lymph % ( Auto) 15.3 L, [place] % (Auto) 11.1 H, Eos % (Auto) 3.5, Baso % (Auto) 0.0, Gran # 2.01, Lymph # (Auto) 0.4 L, [place] # (Auto) 0.3, Eos # (Auto) 0.1, Baso # (Auto) 0.00 - RAD Interpretation Radiology Orders: 02/07/18 19:39 CHEST PORTABLE [RAD] Stat - Medication Orders Current Medication Orders: Albuterol/Ipratropium (Duoneb 3 Mg/0.5 Mg (3 Ml) Ud) 3 ml IH [id number] [facility] Last Admin: 02/12/18 07:35 Dose: 3 ml Albuterol/Ipratropium (Duoneb 3 Mg/0.5 Mg (3 Ml) Ud) 3 ml IH Q2H PRN PRN Reason: Shortness of Breath Last Admin: 02/08/18 06:10 Dose: 3 ml Doxycycline Hyclate (Doryx) 100 mg PO Q12 [facility] PRN Reason: Protocol Stop: 02/19/18 22:01 Last Admin: 02/12/18 09:08 Dose: 100 mg Heparin Sodium (Porcine) (Heparin) 5,000 units SC Q12 [facility] PRN Reason: Protocol Last Admin: 02/12/18 09:08 Dose: 5,000 units Subcutaneous Administrations Document 02/12/18 09:08 PHANT (Rec: 02/12/18 09:08 PHANT [id number]) Injection Site MAR Injection Site Right Abdomen Charges for Administration # of Subcutaneous Administrations 1 Methadone HCl (Methadone) 150 mg PO DAILY [facility] Last Admin: 02/12/18 09:08 Dose: 150 mg MAR Pain Assessment Document 02/12/18 09:08 PHANT (Rec: 02/12/18 09:10 PHANT [id number]) Pain Reassessment Is this a pain reassessment? Yes Sleep Is patient sleeping during reassessment? No Presence of Pain Presence of Pain Yes Pain Scale Used Pain Scale Used Numeric Location Left, Right or Bilateral Bilateral Pain Location Body Site Generalized Description Description Intermittent Intensity of Pain at present 5 Acceptable Level of Pain 4 Pain Behavior Facial Grimacing Aggravating Factors Changing Position Alleviating Factors/Management Medication Techniques Alleviating Factors Medication Effects of Pain with plan of care Effectiveness of Techniques medication Methylprednisolone (Solu-Medrol) 40 mg IVP Q12 [facility] Last Admin: 02/12/18 09:07 Dose: 40 mg IVP Administration Document 02/12/18 09:07 PHANT (Rec: 02/12/18 09:07 PHANT [id number]) Charges for Administration # of IVP Administrations 1 Ondansetron HCl (Zofran Inj) 4 mg IVP Q4H PRN PRN Reason: Nausea/Vomiting Last Admin: 02/12/18 10:35 Dose: 4 mg IVP Administration Document 02/12/18 10:35 PHANT (Rec: 02/12/18 10:35 PHANT [id number]) Charges for Administration # of IVP Administrations 1 Pantoprazole Sodium (Protonix Ec Tab) 40 mg PO ACB [facility] Last Admin: 02/12/18 08:08 Dose: 40 mg Discontinued Medications Albuterol/Ipratropium (Duoneb 3 Mg/0.5 Mg (3 Ml) Ud) 3 ml IH Q15M [facility] Stop: 02/07/18 20:16 Last Admin: 02/07/18 21:34 Dose: 3 ml Diphenhydramine HCl (Benadryl) 50 mg IVP STAT STA Stop: 02/08/18 00:29 Last Admin: 02/08/18 00:40 Dose: 50 mg IVP Administration Document 02/08/18 00:40 KIM (Rec: 02/08/18 00:40 KIM [id number]) Charges for Administration # of IVP Administrations 1 Sodium Chloride (Sodium Chloride 0.9%) 1,000 mls @ 999 mls/hr IV .Q1H1M STA Stop: 02/07/18 20:41 Last Admin: 02/07/18 21:22 Dose: 999 mls/hr eMAR Start Stop Document 02/07/18 21:22 KIM (Rec: 02/07/18 21:22 KIM [id number]) Intravenous Solution Start Date 02/07/18 Start Time 21:22 End Date 02/07/18 End time 22:22 Total Infusion Time 60 Ceftriaxone Sodium (Rocephin 1 Gram Ivpb) 1 gm in 100 mls @ 200 mls/hr IVPB STAT STA PRN Reason: Protocol Stop: 02/07/18 22:28 Last Admin: 02/07/18 23:44 Dose: 200 mls/hr eMAR Start Stop Document 02/07/18 23:44 KIM (Rec: 02/07/18 23:44 KIM [id number]) Intravenous Solution Start Date 02/07/18 Start Time 23:44 End Date 02/08/18 End time 00:14 Total Infusion Time 30 Azithromycin (Zithromax 500mg In Ns) 500 mg in 250 mls @ 167 mls/hr IVPB STAT STA PRN Reason: Protocol Stop: 02/07/18 23:28 Last Admin: 02/08/18 00:27 Dose: 167 mls/hr Comments: Allergic reaction, medication stopped 5 min into infusion eMAR Start Stop Document 02/08/18 00:27 KIM (Rec: 02/08/18 00:28 KIM [id number]) Intravenous Solution Start Date 02/08/18 Start Time 00:28 Sodium Chloride (Sodium Chloride 0.9%) 500 mls @ 999 mls/hr IV .Q31M STA Stop: 02/08/18 05:34 Last Admin: 02/08/18 06:14 Dose: 999 mls/hr eMAR Start Stop Document 02/08/18 06:14 MV (Rec: 02/08/18 06:16 MV [id number]) Intravenous Solution Start Date 02/08/18 Start Time 05:45 Sodium Chloride (Sodium Chloride 0.9%) 1,000 mls @ 60 mls/hr IV .[id number] [facility] Last Admin: 02/08/18 06:20 Dose: 60 mls/hr eMAR Start Stop Document 02/08/18 06:20 MV (Rec: 02/08/18 06:21 MV [id number]) Intravenous Solution Start Date 02/08/18 Start Time 06:20 End Date 02/08/18 Sodium Chloride (Sodium Chloride 0.9%) 500 mls @ 999 mls/hr IV .Q31M STA Stop: 02/08/18 06:56 Last Admin: 02/08/18 06:51 Dose: 999 mls/hr eMAR Start Stop Document 02/08/18 06:51 MV (Rec: 02/08/18 06:51 MV [id number]) Intravenous Solution Start Date 02/08/18 Start Time 06:51 Sodium Chloride (Sodium Chloride 0.9%) 1,000 mls @ 100 mls/hr IV .Q10H [facility] Last Admin: 02/08/18 06:52 Dose: 100 mls/hr eMAR Start Stop Document 02/08/18 06:52 MV (Rec: 02/08/18 06:52 MV [id number]) Intravenous Solution Start Date 02/08/18 Start Time 06:52 Doxycycline Hyclate 100 mg/ (Sodium Chloride) 100 mls @ 100 mls/hr IVPB Q12 [facility] PRN Reason: Protocol Last Admin: 02/10/18 10:19 Dose: 100 mls/hr eMAR Start Stop Document 02/10/18 10:19 JFR (Rec: 02/10/18 10:19 JFR [id number]) Intravenous Solution Start Date 02/10/18 Start Time 10:19 Clindamycin Phosphate 900 mg/ (Sodium Chloride) 106 mls @ 106 mls/hr IVPB Q8 [facility] PRN Reason: Protocol Stop: 02/22/18 14:01 Last Admin: 02/12/18 05:47 Dose: 106 mls/hr eMAR Start Stop Document 02/12/18 05:47 DL (Rec: 02/12/18 05:47 DL [id number]) Intravenous Solution Start Date 02/12/18 Start Time 05:47 End Date 02/12/18 End time 06:47 Total Infusion Time 60 Meropenem (Merrem Iv 1 Gm Premix) 50 mls @ 100 mls/hr IVPB Q12 [facility] PRN Reason: Protocol Stop: 02/17/18 22:01 Last Admin: 02/10/18 10:19 Dose: 100 mls/hr eMAR Start Stop Document 02/10/18 10:19 JFR (Rec: 02/10/18 10:19 JFR [id number]) Intravenous Solution Start Date 02/10/18 Start Time 10:19 Dobutamine HCl/Dextrose (Dobutamine/Dextrose 5% 500mg/250ml) 500 mg in 250 mls @ 3.484 mls/hr IV .Q24H PRN; Protocol; 2.5 MCG/KG/MIN PRN Reason: TITRATE PER PROTOCOL Last Admin: 02/08/18 17:26 Dose: 2.5 mcg/kg/min, 3.484 mls/hr eMAR Start Stop Document 02/08/18 17:26 [id number] (Rec: 02/08/18 17:26 [id number]) Intravenous Solution Start Date 02/08/18 Start Time 17:26 MAR Pulse and Blood Pressure Document 02/08/18 17:26 [id number] (Rec: 02/08/18 17:26 [id number]) Pulse Pulse Rate (60-90) 62 Blood Pressure Blood Pressure (100/60-150/90) 92/55 Titration Intervention Document 02/08/18 17:26 [id number] (Rec: 02/08/18 17:26 [id number]) Titration Intake Waste Amount 0 Container Volume 250 Titration Dosing Titration Dose 2.5 IV Rate 3.484 Intake/Decrease Started Lactated Ringer's (Lactated Ringer's) 1,000 mls @ 999 mls/hr IV .Q1H1M [facility] Stop: 02/08/18 18:30 Last Admin: 02/08/18 17:34 Dose: 999 mls/hr eMAR Start Stop Document 02/08/18 17:34 [id number] (Rec: 02/08/18 17:34 [id number]) Intravenous Solution Start Date 02/08/18 Start Time 17:34 End Date 02/08/18 End time 18:34 Total Infusion Time 60 Ibuprofen (Motrin Tab) 800 mg PO STAT STA Stop: 02/07/18 21:25 Last Admin: 02/07/18 21:26 Dose: 800 mg Methadone HCl (Methadone) 50 mg PO STAT STA Stop: 02/09/18 13:59 Last Admin: 02/09/18 14:36 Dose: 50 mg [facility] Pain Assessment Document 02/09/18 14:36 [id number] (Rec: 02/09/18 14:37 [id number] [facility] Pain Reassessment Is this a pain reassessment? No Presence of Pain Presence of Pain Yes Pain Scale Used Pain Scale Used Numeric Description Description Constant Intensity of Pain at present 8 Re-Assess: [facility] Pain Assessment Document 02/09/18 15:36 [email or web address] (Rec: 02/09/18 17:05 [id number] [facility] ) Pain Reassessment Is this a pain reassessment? Yes Presence of Pain Presence of Pain No Methadone HCl (Methadone) 50 mg PO ONCE ONE Stop: 02/09/18 14:37 Last Admin: 02/09/18 14:42 Dose: 50 mg [facility] Pain Assessment Document 02/09/18 14:42 [id number] (Rec: 02/09/18 14:42 [id number] [facility] ) Pain Reassessment Is this a pain reassessment? No Re-Assess: [facility] Pain Assessment Document 02/09/18 15:42 [id number] (Rec: 02/09/18 17:05 [id number] [facility] ) Pain Reassessment Is this a pain reassessment? Yes Presence of Pain Presence of Pain No Methylprednisolone (Solu-Medrol) 125 mg IVP STAT STA Stop: 02/08/18 00:29 Last Admin: 02/08/18 00:40 Dose: 125 mg IVP Administration Document 02/08/18 00:40 KIM (Rec: 02/08/18 00:40 KIM [id number]) Charges for Administration # of IVP Administrations 1 Pantoprazole Sodium (Protonix Inj) 40 mg IVP DAILY [facility] Last Admin: 02/09/18 09:59 Dose: 40 mg IVP Administration Document 02/09/18 09:59 [id number] (Rec: 02/09/18 10:00 [id number] [id number]) Charges for Administration # of IVP Administrations 1 Primaquine Phosphate (Primaquine) 26.3 mg PO DAILY [facility] PRN Reason: Protocol Stop: 02/17/18 12:02 Last Admin: 02/11/18 09:38 Dose: 26.3 mg Sodium Polystyrene Sulfonate (Kayexalate Susp) 30 gm PO ONCE ONE Stop: 02/11/18 09:10 Last Admin: 02/11/18 09:37 Dose: 30 gm - Scribe Statement The provider has reviewed the documentation as recorded by the Scribe <Hermann Sales - Last Filed: 02/08/18 01:17> <Kenn Pak - Last Filed: 02/12/18 11:46> - Scribe Statement Desmond Gonzales Provider Scribe Attestation: All medical record entries made by the Scribe were at my direction and personally dictated by me. I have reviewed the chart and agree that the record accurately reflects my personal performance of the history, physical exam, medical decision making, and the department course for this patient. I have also personally directed, reviewed, and agree with the discharge instructions and disposition. (Hermann Sales) Disposition/Present on Arrival - Disposition Have Diagnosis and Disposition been Completed?: Yes Disposition Time: 00:50 Patient Plan: Discharge <Hermann Sales - Last Filed: 02/08/18 01:17> - Present on Arrival Any Indicators Present on Arrival: No History of DVT/PE: No History of Uncontrolled Diabetes: No Urinary Catheter: No History of Decub. Ulcer: No History Surgical Site Infection Following: None - Disposition Patient Plan: Admission <Kenn Pak P - Last Filed: 02/12/18 11:46> - Disposition Diagnosis: Pneumonia, HIV disease, Methadone dependence Disposition: HOSPITALIZED Patient Problems: Current Active Problems Problem Status Onset Methadone dependence Acute Pneumonia Acute HIV disease Chronic Condition: GOOD
[2018-02-07] MEDS ORDERED: Sodium Chloride 0.9% 1,000 ML IV STA (19:41)
[2018-02-07 21:10] LABS: EOS # 0.1 (0.0-0.7); EOS % 3.5 % (1.5-5.0); GRAN # 2.01 (1.4-6.5); GRAN % 70.1 % (50.0-68.0); HEMOGLOBIN 10.1 g/dL (12.0-16.0); LYMPH # 0.4 (1.2-3.4); LYMPH % 15.3 % (22.0-35.0); MEAN CELL VOLUME 79.7 fl (80.0-105.0); MEAN CORPUSCULAR HEMOGLOBIN 26.2 pg (25.0-35.0); MEAN CORPUSCULAR HGB CONC 32.9 g/dl (31.0-37.0); MEAN PLATELET VOLUME 9.8 fl (7.0-11.0); MONO # 0.3 (0.1-0.6); MONO % 11.1 % (1.0-6.0); RBC 3.85 10^6/uL (3.5-6.1); RED CELL DISTRIBUTION WIDTH 16.2 % (11.5-14.5)
[2018-02-07 21:15] LABS: VENOUS BLOOD GAS BASE EXCESS 0.4 mmol/L (0.0-2.0); VENOUS BLOOD GAS PO2 32 mm/Hg (30-55); VENOUS BLOOD PH 7.21 (7.32-7.43)
[2018-02-07 21:17] LABS: WHITE BLOOD COUNT 2.9 10^3/ul (4.5-11.0)
[2018-02-07 21:19] LABS: ALB/GLOB RATIO 0.7 (1.1-1.8); ALBUMIN 3.2 g/dL (3.0-4.8); CALCIUM 8.5 mg/dL (8.4-10.5)
[2018-02-07] MEDS: Albuterol-Ipratrop 3 mg / 0.5 (3 ml) UD IH SCH ×3 (21:21→21:34)
[2018-02-07 21:51] LABS: URINE BILIRUBIN NEGATIVE (NEGATIVE); URINE BLOOD NEGATIVE (NEGATIVE); URINE GLUCOSE (UA) NEGATIVE (NEGATIVE); URINE LEUKOCYTE ESTERASE NEGATIVE Leu/uL (NEGATIVE); URINE PROTEIN 100 mg/dL (<30 mg/dL); URINE UROBILINOGEN 0.2 E.U./dL (<1 E.U./dL)
[2018-02-07] MEDS ORDERED: Azithromycin 500MG/NS 250ml 500 MG/250 ML BAG IVPB STA (21:59)
[2018-02-07] MEDS ORDERED: cefTRIAXone 1 gm 1 GM/100 ML BAG IVPB STA (21:59)
[2018-02-07 22:00] LABS: HCG,QUALITATIVE URINE NEGATIVE (NEGATIVE); URINE APPEARANCE CLEAR (CLEAR); URINE COLOR YELLOW (YELLOW)
[2018-02-07 22:04] LABS: INR 0.93 (0.93-1.08); PARTIAL THROMBOPLASTIN TIME 37.9 Seconds (25.1-36.5); PROTHROMBIN TIME 10.6 SECONDS (9.4-12.5)
[2018-02-07 22:25] LABS: URINE BACTERIA MOD (NEG); URINE HYALINE CAST 0 - 2 /hpf
[2018-02-08] MEDS ORDERED: DiphenhydrAMINE 50 mg/ml Inj IVP STA (00:28)
[2018-02-08] MEDS ORDERED: DiphenhydrAMINE 50 mg/ml Inj ONE (00:32)
--- NOTE | 2018-02-08 04:47 | CP.PCM.PN ---
Subjective - Date & Time of Evaluation Date of Evaluation: 02/08/18 Time of Evaluation: 04:47 - Subjective Subjective: Nurse calls and states that ,"pulse ox was 88% on 4L/min by nasal canula. We placed on 50 % VM pulse ox is 93%." Has come with PNA, methadone dependence. I went to patient's room and evaluated patient. Pulse ox is 99 % on 50 % VM. BP 79/53, HR 78/min, RR 18/min, Temp:97.9*F. Patient complained of little sob. No chest pain, nausea, sweating, palpitation, fever, chills. This 37 year old white woman was admitted with sob, cough of 4 days duration, PNA, methadone dependence. Has PMH of: HIV AIDS COPD Hepatitis C. Hx of TB. Opiate dependence hx. On mehtadone. Objective - Vital Signs/Intake and Output Vital Signs (last 24 hours): Temp Pulse Resp BP Pulse Ox 97.9 F 82 18 82/53 L 95 02/08/18 02:58 02/08/18 02:58 02/08/18 02:58 02/08/18 02:58 02/08/18 02:02 - Labs Labs: PT 10.6 SECONDS (9.4-12.5) 02/07/18 20:50 INR 0.93 (0.93-1.08) 02/07/18 20:50 APTT 37.9 Seconds (25.1-36.5) H 02/07/18 20:50 Most Recent Lab Values WBC 2.9 10^3/ul (4.5-11.0) L* 02/07/18 20:50 RBC 3.85 10^6/uL (3.5-6.1) 02/07/18 20:50 Hgb 10.1 g/dL (12.0-16.0) L 02/07/18 20:50 Hct 30.7 % (36.0-48.0) L 02/07/18 20:50 MCV 79.7 fl (80.0-105.0) L 02/07/18 20:50 MCH 26.2 pg (25.0-35.0) 02/07/18 20:50 MCHC 32.9 g/dl (31.0-37.0) 02/07/18 20:50 RDW 16.2 % (11.5-14.5) H 02/07/18 20:50 Plt Count 84 10^3/uL (120.0-450.0) L 02/07/18 20:50 MPV 9.8 fl (7.0-11.0) 02/07/18 20:50 Gran % 70.1 % (50.0-68.0) H 02/07/18 20:50 Lymph % (Auto) 15.3 % (22.0-35.0) L 02/07/18 20:50 [place] % (Auto) 11.1 % (1.0-6.0) H 02/07/18 20:50 Eos % (Auto) 3.5 % (1.5-5.0) 02/07/18 20:50 Baso % (Auto) 0.0 % (0.0-3.0) 02/07/18 20:50 Gran # 2.01 (1.4-6.5) 02/07/18 20:50 Lymph # (Auto) 0.4 (1.2-3.4) L 02/07/18 20:50 [place] # (Auto) 0.3 (0.1-0.6) 02/07/18 20:50 Eos # (Auto) 0.1 (0.0-0.7) 02/07/18 20:50 Baso # (Auto) 0.00 K/mm3 (0.0-2.0) 02/07/18 20:50 PT 10.6 SECONDS (9.4-12.5) 02/07/18 20:50 INR 0.93 (0.93-1.08) 02/07/18 20:50 APTT 37.9 Seconds (25.1-36.5) H 02/07/18 20:50 pO2 32 mm/Hg (30-55) 02/07/18 21:09 VBG pH 7.21 (7.32-7.43) L 02/07/18 21:09 VBG pCO2 76.0 (40-60) H* 02/07/18 21:09 VBG HCO3 30.4 mmol/l (21-28) H 02/07/18 21:09 VBG Total CO2 32.7 mmol.L (22-28) H 02/07/18 21:09 VBG O2 Sat (Calc) 58.7 % (40-65) 02/07/18 21:09 VBG Base Excess 0.4 mmol/L (0.0-2.0) 02/07/18 21:09 VBG Potassium 4.3 mmol/L (3.6-5.2) 02/07/18 21:09 Sodium 137.0 mmol/L (132-148) 02/07/18 21:09 Chloride 105.0 mmol/L (98-107) 02/07/18 21:09 Glucose 84 mg/dl (65-105) 02/07/18 21:09 Lactate 0.6 mmol/L (0.7-2.1) L 02/07/18 21:09 FiO2 21.0 % 02/07/18 21:09 Sodium 139 mmol/L (132-148) 02/07/18 20:50 Potassium 4.2 mmol/L (3.6-5.0) 02/07/18 20:50 Chloride 102 mmol/L (98-107) 02/07/18 20:50 Carbon Dioxide 27 mmol/L (21-33) 02/07/18 20:50 Anion Gap 14 (10-20) 02/07/18 20:50 BUN 47 mg/dL (7-21) H 02/07/18 20:50 Creatinine 2.0 mg/dl (0.7-1.2) H 02/07/18 20:50 Est GFR ( Amer) 34 02/07/18 20:50 Est GFR (Non-Af Amer) 28 02/07/18 20:50 Random Glucose 81 mg/dL (70-110) 02/07/18 20:50 Calcium 8.5 mg/dL (8.4-10.5) 02/07/18 20:50 Phosphorus 5.6 mg/dL (2.5-4.5) H 02/07/18 20:50 Magnesium 2.3 mg/dL (1.7-2.2) H 02/07/18 20:50 Total Bilirubin 0.2 mg/dL (0.2-1.3) 02/07/18 20:50 AST 61 U/L (14-36) H D 02/07/18 20:50 ALT 31 U/L (7-56) 02/07/18 20:50 Alkaline Phosphatase 54 U/L (38-126) 02/07/18 20:50 Total Protein 7.5 g/dL (5.8-8.3) 02/07/18 20:50 Albumin 3.2 g/dL (3.0-4.8) 02/07/18 20:50 Globulin 4.3 gm/dL 02/07/18 20:50 Albumin/Globulin Ratio 0.7 (1.1-1.8) L 02/07/18 20:50 Venous Blood Potassium 4.3 mmol/L (3.6-5.2) 02/07/18 21:09 Urine Color Yellow (YELLOW) 02/07/18 21:05 Urine Appearance Clear (CLEAR) 02/07/18 21:05 Urine pH 6.0 (4.7-8.0) 02/07/18 21:05 Ur Specific [place] >= 1.030 (1.005-1.035) 02/07/18 21:05 Urine Protein 100 mg/dL (<30 mg/dL) H 02/07/18 21:05 Urine Glucose (UA) Negative mg/dL (NEGATIVE) 02/07/18 21:05 Urine Ketones Negative mg/dL (NEGATIVE) 02/07/18 21:05 Urine Blood Negative (NEGATIVE) 02/07/18 21:05 Urine Nitrate Negative (NEGATIVE) 02/07/18 21:05 Urine Bilirubin Negative (NEGATIVE) 02/07/18 21:05 Urine Urobilinogen 0.2 E.U./dL (<1 E.U./dL) 02/07/18 21:05 Ur Leukocyte Esterase Negative Juliano/uL (NEGATIVE) 02/07/18 21:05 Urine RBC 2 - 5 /hpf (0-2) 02/07/18 21:05 Urine WBC 10 - 15 /hpf (0-6) 02/07/18 21:05 Ur Epithelial Cells 1 - 3 /hpf (0-5) 02/07/18 21:05 Urine Bacteria Mod (NEG) 02/07/18 21:05 Hyaline Casts 0 - 2 /hpf 02/07/18 21:05 Urine Other Uren 02/07/18 21:05 Urine HCG, Qual Negative (NEGATIVE) 02/07/18 21:05 - Constitutional Appears: No Acute Distress, Other (Ill looking.) - Head Exam Head Exam: ATRAUMATIC, NORMAL INSPECTION, NORMOCEPHALIC - Eye Exam Eye Exam: Normal appearance - ENT Exam ENT Exam: Mucous Membranes Dry - Neck Exam Neck Exam: Normal Inspection - Respiratory Exam Respiratory Exam: Decreased Breath Sounds (Bases.), Wheezes (Occ.), NORMAL BREATHING PATTERN. absent: Accessory Muscle Use, Chest Wall Tenderness, Rales, Rhonchi, Respiratory Distress, Stridor - Cardiovascular Exam Cardiovascular Exam: REGULAR RHYTHM. absent: JVD - GI/Abdominal Exam GI & Abdominal Exam: absent: Distended - Rectal Exam Rectal Exam: Deferred - Exam Additional comments: Deferred. - Extremities Exam Extremities Exam: Normal Inspection - Back Exam Back Exam: NORMAL INSPECTION - Neurological Exam Neurological Exam: Alert, Awake, Oriented x3 - Psychiatric Exam Psychiatric exam: Normal Affect, Normal Mood - Skin Skin Exam: Dry, Pallor (++) Assessment and Plan - Assessment and Plan (Free Text) Assessment: Hypoxia. Hypotension. Dehydration VS ARF. PNA. HIV. Anemia. Leukopenia. Thrombocytpenia. Elevated AST. Renal isufficiency. Plan: Change Oxygen to 50% by VM. Stat Duoneb neb treatment. Duoneb Neb treatment Q6H. Duoneb Neb treratment Q2H prn sob/wheezing/hypoxia. Normal saline bolus of 250 cc over 30 minutes, then Normal saline at 60 CC per hour. 0620 BP 81/56. Will give another bolus of 500 CC. Will follow it with normal saline at 100 CC/hour. Discussed with .
[2018-02-08] MEDS ORDERED: Sodium Chloride 0.9% 500 ML IV STA ×2 (05:04→06:26)
[2018-02-08] MEDS ORDERED: Albuterol-Ipratrop 3 mg / 0.5 (3 ml) UD IH PRN (05:10)
[2018-02-08] MEDS ORDERED: Sodium Chloride 0.9% 1,000 ML IV SCH ×2 (06:00→06:27)
[2018-02-08] MEDS ORDERED: SODIUM CHLORIDE 0.9% IV SCH (06:45)
[2018-02-08] MEDS ORDERED: MethylPREDNISolone 40 mg Vial IV SCH (06:45)
[2018-02-08] MEDS ORDERED: METHYLPREDNISOLONE IV SCH (06:45)
[2018-02-08] MEDS ORDERED: MethylPREDNISolone 40 mg Vial IVP SCH (06:46)
[2018-02-08] MEDS: MethylPREDNISolone 40 mg Vial IVP SCH ×2 (06:50→21:06)
[2018-02-08 07:30] LABS: GRAN # 1.6 (1.4-6.5); GRAN % 86.5 % (50.0-68.0); HEMOGLOBIN 8.5 g/dL (12.0-16.0); LYMPH # 0.2 (1.2-3.4); LYMPH % 10.8 % (22.0-35.0); MEAN CELL VOLUME 80.9 fl (80.0-105.0); MEAN CORPUSCULAR HEMOGLOBIN 26.2 pg (25.0-35.0); MEAN CORPUSCULAR HGB CONC 32.4 g/dl (31.0-37.0); MEAN PLATELET VOLUME 10.2 fl (7.0-11.0); MONO # 0.1 (0.1-0.6); MONO % 2.7 % (1.0-6.0); RBC 3.24 10^6/uL (3.5-6.1); RED CELL DISTRIBUTION WIDTH 16.4 % (11.5-14.5)
[2018-02-08 07:34] LABS: WHITE BLOOD COUNT 1.9 10^3/ul (4.5-11.0)
[2018-02-08 07:48] LABS: ALB/GLOB RATIO 0.7 (1.1-1.8); ALBUMIN 2.5 g/dL (3.0-4.8); ALT/SGPT 32 U/L (7-56); AST/SGOT 47 U/L (14-36); BLOOD UREA NITROGEN 36 mg/dL (7-21); CALCIUM 7.5 mg/dL (8.4-10.5); GFR AFRICAN-AMERICAN 51; GFR NON-AFRICAN AMERICAN 42
[2018-02-08] MEDS: Albuterol-Ipratrop 3 mg / 0.5 (3 ml) UD IH SCH ×3 (07:51→20:10)
[2018-02-08 07:58] LABS: TROPONIN I 0.02 ng/mL
--- NOTE | 2018-02-08 08:14 | RAD ---
HISTORY: Sepsis Patient COMPARISON: Comparison made with prior chest radiograph dated 11/22/2017. FINDINGS: LUNGS: Lung asif appear hyperinflated. . Interstitial markings are somewhat increased and coarsened ; rule out sequela of reactive/ inflammatory airway disease and or viral illness. PLEURA: No significant pleural effusion identified, no pneumothorax apparent. CARDIOVASCULAR: Heart size within range of normal. OSSEOUS STRUCTURES: No significant abnormalities. VISUALIZED UPPER ABDOMEN: Normal. OTHER FINDINGS: None. IMPRESSION: Hyperinflation. Coarsened/ increased interstitial markings; rule out sequela of reactive/inflammatory airway disease or viral illness.
[2018-02-08] MEDS ORDERED: Aztreonam 1 Gm in NS 100mL 100 ML IVPB SCH (09:00)
[2018-02-08 09:38] LABS: ARTERIAL BLOOD GAS HCO3 21.1 mmol/L (21-28); ARTERIAL BLOOD GAS O2 SAT 99.6 % (95-98); ARTERIAL BLOOD GAS PCO2 47 mm/Hg (35-45); ARTERIAL BLOOD GAS PH 7.26 (7.35-7.45); ARTERIAL BLOOD GAS TCO2 22.5 mmol.L (22-28)
--- NOTE | 2018-02-08 10:47 | RAD ---
HISTORY: hypoxic respiratory failure COMPARISON: 02/07/2018. FINDINGS: LUNGS: The lungs are well inflated and clear. There is mild pulmonary venous congestion. PLEURA: No significant pleural effusion identified, no pneumothorax apparent. CARDIOVASCULAR: Normal. OSSEOUS STRUCTURES: No significant abnormalities. VISUALIZED UPPER ABDOMEN: Normal. OTHER FINDINGS: None. IMPRESSION: No active pulmonary disease.
[2018-02-08] MEDS: Primaquine 26.3 mg Tab PO SCH (12:40)
--- NOTE | 2018-02-08 15:55 | NM ---
COMPARISON: February 08, 2018. TECHNIQUE: 30.7 MCi technetium 99-m DTPA aerosol. 3.4 MCI technetium 99-m MAA administered intravenously. FINDINGS: VENTILATION COMPONENT: Markedly abnormal/ heterogeneous ventilation bilaterally.Retention of radionuclide in the tracheobronchial tree and ingestion of radionuclide in the stomach, incidental findings PERFUSION COMPONENT: Heterogeneous profusion without focal abnormality. IMPRESSION: Low probability ventilation perfusion scan for pulmonary embolism.
[2018-02-08 16:18] LABS: ARTERIAL BLOOD GAS HCO3 22.7 mmol/L (21-28); ARTERIAL BLOOD GAS O2 SAT 98.1 % (95-98); ARTERIAL BLOOD GAS PCO2 53 mm/Hg (35-45); ARTERIAL BLOOD GAS PH 7.24 (7.35-7.45); ARTERIAL BLOOD GAS TCO2 24.3 mmol.L (22-28)
--- NOTE | 2018-02-08 16:44 | CON ---
DATE: 02/08/2018 HISTORY OF PRESENT ILLNESS: The patient is a 37-year-old lady with history of HIV, AIDS, COPD, who presented yesterday to the emergency room complaining on shortness of breath and cough for 4 days. The patient reports that the cough is dry without production of any sputum. Unknown CD-4 count and viral load. The patient denies chest pain, nausea, vomiting, diarrhea, constipation or fever. PAST MEDICAL HISTORY: HIV, AIDS, COPD. FAMILY HISTORY: Noncontributory. SOCIAL HISTORY: The patient is on methadone program. She is active smoker. No alcohol abuse. MEDICATIONS AT HOME: Prednisone, methadone, Genvoya, Doryx, Prezista, Z-Royal, Mepron, albuterol. ALLERGIES: LEVOFLOXACIN, PENICILLINS, AZITHROMYCIN. REVIEW OF SYSTEMS: Review of 12-organ systems other than mentioned in the history of present illness is negative. PHYSICAL EXAMINATION: VITAL SIGNS: Blood pressure 92/50; heart rate 80; respiratory 21; oxygen saturation 91% on room air, 99% on 50% FIO2. ENT: Head and neck atraumatic. LUNGS: Few wheezes and crackles, left more than right. HEART: Regular rate and rhythm. S1 and S2 normal. ABDOMEN: Soft, nontender and nondistended. MUSCULOSKELETAL: Significant muscle wasting. No C/C/E. NEURO: The patient moves all extremities spontaneously. SKIN: Moist. PSYCH: The patient is somnolent, but responsive to stimuli. LABORATORY DATA: WBC 1.9, hemoglobin 8.5, platelet count 66, eosinophils 0, neutrophils 86.5% (146). Sodium 141; potassium 3.8; chloride 111; carbon dioxide 24; BUN 36; creatinine 1.4, down from 2; glucose 146; AST 47; ALT 32; bilirubin less than 0.1; LDH 549; troponin 0.02. ABG showed 7.26, pCO2 of 47, pO2 on 50% 138, lactic acid 0.7. PTT 37.9. MEDICATIONS: DuoNeb every 6, clindamycin, doxycycline, heparin subcu, meropenem, methadone, Solu-Medrol 40 mg IV every 12, Primaquine. Normal saline was stopped. Chest x-ray showed mild pulmonary venous interstitial congestion versus infiltrate, emphysema. Echocardiogram official report is pending. Preliminarily, the patient appeared to have severely dilated right ventricle with signs of fluid and pressure overload (paradoxical interventricular septum movement). ASSESSMENT AND PLAN: This is a 37-year-old lady, who presented with increased shortness of breath, cough with some increased interstitial markings on chest x-ray in the setting of poorly-controlled human immunodeficiency virus infection. On top of differential diagnosis at present time is infectious etiology of her clinical deterioration including typical and atypical pathogens as well as Pneumocystis carinii pneumonia. The patient is allergic to multiple antibiotics and currently her antibiotic Rx was picked by Infectious Disease Service. She is on steroids and on Primaquine/clindamycin for potential Pneumocystis carinii pneumonia. The patient's respiratory status is too tenuous to proceed with bronchoscopy (risks overweigh benefits), thus empiric tx for PCP appear to be reasonable. . Septic workup is in progress. Urine for Legionella, streptococcal antigen were ordered. Procalcitonin was ordered. I will also order galactomannan test as well as 1, 3 [id number] level. If Fungitell returns negative, possibility of Pneumocystis carinii pneumonia infection would be much less likely. I doubt invasive aspergillosis based on radiographic and clinical presentation; however, the patient is severely immunocompromised, was on steroids based on the list of her home medications, thus possibility of invasive aspergillosis cannot be ruled out at present time. Severely dilated right ventricle with signs of fluid and pressure overload on preliminary review of echocardiogram is concerning. The patient currently is in V/Q scan and whether or not these findings relates to pulmonary embolism remains to be seen. If high probability, that may explain the patient's acute onset of shortness of breath. Nevertheless, cor pulmonale related to the patient's chronic obstructive pulmonary disease or pulmonary hypertension related to human immunodeficiency virus cannot be ruled out as etiology of the above finding. We will continue with steroid taper, bronchodilators and bilevel positive airway pressure to counteract respiratory acidosis most likely related to chronic obstructive pulmonary disease. We will repeat ABG in 1-2 hours to follow up on progress off bilevel positive airway pressure therapy. I will stop normal saline as the patient has hyperchloremia at present time. If the patient continued to be somnolent with compromised ability to maintain oral hydration and nutrition, I will start lactated Ringer and have low threshold for intubation. We will continue to target euvolemia, euglycemia, normothermia and oxygen saturation more than 90%. We will continue with deep venous thrombosis, gastrointestinal prophylaxis. Pancytopenia most likely relates to human immunodeficiency virus related bone marrow suppression. Addendum: V/Q scan-->low probability, BP borderline normotensive/low-->1L LR given, dobutamine (to optimize RV systolic function) trial initiated. BPAP adjusted: backup rate increased to 20, IPAP to 14. Will repeat ABG: if respiratory acidosis worsened-->will intubate ccm time 40 min Simeon Sheridan MD KATHERINE
[2018-02-08] MEDS ORDERED: DOBUTamine 500mg/250ml D5W 500 MG/250 ML BAG IV PRN (17:10)
[2018-02-08] MEDS ORDERED: Lactated Ringer's 1,000 ML IV SCH ×2 (17:30)
--- NOTE | 2018-02-08 18:03 | US ---
HISTORY: Leg pain and swelling. Evaluate for DVT PHYSICIAN(S): Andrea Pierre MD. TECHNIQUE: Duplex sonography and color-flow Doppler with graded compression were used to evaluate the deep venous systems of both lower extremities. FINDINGS: The visualized deep venous systems of both lower extremities are sonographically normal and compressible. Normal wave forms and augmentation are seen. There is no sonographic evidence for deep venous thrombosis in the visualized segments of both lower extremities. IMPRESSION: No sonographic evidence for deep venous thrombosis in the visualized segments of both lower extremities.
--- NOTE | 2018-02-08 20:48 | CARD ---
APPROVED REPORT EXAM: Two-dimensional and M-mode echocardiogram with Doppler and color Doppler. INDICATION Congestive Heart Failure 2D DIMENSIONS Left Atrium (2D)2.9 (1.6-4.0cm)IVSd1.0 (0.7-1.1cm) LVDd4.1 (3.9-5.9cm)PWd0.9 (0.7-1.1cm) LVDs3.1 (2.5-4.0cm)FS (%) 25.8 % LVEF (%)51.3 (>50%) M-Mode DIMENSIONS Aortic Root2.70 (2.2-3.7cm)Aortic Cusp Exc.1.70 (1.5-2.0cm) Aortic Valve AoV Peak Wtsqcipx412.0cm/Ita Peak GR.6mmHg Mitral Valve MV E Rcysstth48.0cm/sMV A [place]47.3cm/sE/A ratio1.2 TDI E/Lateral E'0.0E/Medial E'0.0 Tricuspid Valve TR Peak Tygwgdae325tt/sRAP [id number] Peak Gr.35mmHg [id number] LEFT VENTRICLE The left ventricle is normal size. There is normal left ventricular wall thickness. Left ventricle systolic function is borderline. The left ventricular diastolic function is normal. RIGHT VENTRICLE The right ventricle is moderately dilated, RV Systolic function is moderately reduced. ATRIA The left atrium size is normal. The right atrium size is normal. AORTIC VALVE The aortic valve is normal in structure. No aortic regurgitation is present. MITRAL VALVE The mitral valve is normal in structure. There is no mitral valve regurgitation noted. TRICUSPID VALVE There is mild tricuspid regurgitation. There is mild to moderate pulmonary hypertension. GREAT VESSELS The aortic root is normal in size. The IVC is normal in size and collapses >50% with inspiration. <Conclusion> The left ventricle is normal size. There is normal left ventricular wall thickness. Left ventricle systolic function is borderline. The right ventricle is moderately dilated, RV Systolic function is moderately reduced. There is mild tricuspid regurgitation. There is mild to moderate pulmonary hypertension.
[2018-02-08] MEDS: Meropenem IV 1 gm in NS 50 ML IVPB SCH (21:06)
--- NOTE | 2018-02-08 21:40 | CARD ---
APPROVED REPORT EKG Measurement Heart [id number] [place] [id number] <Conclusion> Normal sinus rhythm ST & T wave abnormality, consider anterior ischemia Abnormal ECG
--- NOTE | 2018-02-08 23:42 | CON ---
DATE: 02/08/2018 LOCATION: Patient was seen earlier this morning in room 370, bed 1. CHIEF COMPLAINT: Shortness of breath times several days. HISTORY OF PRESENT ILLNESS: This is a 37-year-old white female with history of end-stage AIDS with very low T-cells, 1% with less than 20 T-cells in the past year, with end-stage chronic obstructive lung disease with chronic back pain, history of intravenous drug abuser and hepatitis C and asthma, noncompliant. Her HIV medication that she is on, Genvoya and Mepron. She has not been taking her medications, now presents with shortness of breath, cough which is nonproductive. Shortness of breath has gone progressively worse last few days. She denies any fever. She has low-grade fevers, but no chills. In the last four to five days, the shortness of breath has gotten worse. There is no abdominal pain, diarrhea, or constipation. No bright red blood per rectum, no melena. No headaches, no blurred vision. No dysuria or frequency. PAST MEDICAL HISTORY: Significant for end-stage AIDS with T-cells of less than 20 at 1%, chronic obstructive lung disease, chronic back pain and hepatitis C, asthma, and intravenous drug abuser. PAST SURGICAL HISTORY: Noncontributory. ALLERGIES: PATIENT IS ALLERGIC TO PENICILLIN; SHE GETS A RASH. SHE IS ALLERGIC TO LEVAQUIN. MEDICATIONS AT HOME: Supposed to be Genvoya and Mepron. PHYSICAL EXAMINATION: GENERAL: She is in bed, appearing chronically ill, end-stage, cachectic, wasting syndrome; she has temporal wasting. She appears end-stage. VITAL SIGNS: Temperature is 98, blood pressure is 92/58, it was as low as 82/53 earlier; heart rate was up to 100; and respiratory rate is up to 25. Patient's oxygen saturation is 88% that is on nasal cannula. HEENT: Reveals temporal wasting. Pupils are equal and reactive. NECK: Supple. LUNGS: Have decreased breath sounds. HEART: Normal S1 and S2. ABDOMEN: Soft, nontender. No rebound or guarding. No masses. LABORATORY DATA: Reveals the patient's white count is 2.9, hemoglobin of 10, MCV is 79, platelets of 84 with 70% granulocytosis, coagulation is noted. BUN of 47, creatinine of 2. AST is 61. Urinalysis is noted, 10 to 15 wbc's. Cultures are pending. Chest x-ray shows interstitial infiltrates. ASSESSMENT AND PLAN: This is a 37-year-old female with end-stage acquired immunodeficiency syndrome and chronic obstructive lung disease. Patient's last T-cells were less than 20 and patient also has chronic back pain, history of intravenous drug abuser; she denies actively using drugs now for years. Patient also with hepatitis C and asthma and presenting with severe sepsis bilaterally, interstitial pneumonia, must rule out community-acquired pneumonia, must also rule out Pneumocystis carinii pneumonia, cytomegalovirus pneumonia is also in the differential diagnosis, fungal pneumonia such as Cryptococcal pneumonia in patient with acute kidney injury where the creatinine is changed from 1.2 to 2 and is down to 1.4 today. We will order the patient with procalcitonin, urine for Legionella antigen. We will order a Cryptococcal antigen, strep pneumonia antigen, cytomegalovirus PCR, Fungitell, LDH, and start the patient on clindamycin/primaquine, empiric Pneumocystis carinii pneumonia therapy, doxycycline, meropenem, Solu-Medrol and consider a CAT scan of the chest. We will follow closely with you. Prognosis is quite poor for this end-stage acquired immunodeficiency syndrome patient who is noncompliant to her medications. Cheikh Chou MD
--- NOTE | 2018-02-09 00:31 | CON ---
CONSULT SERVICE: Cardiology. REASON FOR THE CONSULTATION AND FOLLOWUP: Shortness of breath, hypotension and hypoxemic, transferred from to ICU, cardiac evaluation. BRIEF CLINICAL HISTORY: This is a 37-year-old female, active tobacco abuse, history of HIV/AIDS, COPD, admitted with shortness of breath and fever, chills for 3 days to the , [facility], bed 1. This morning became short winded, more shortness of breath, tachycardiac, hypotensive, moved to ICU. Denies any chest pain. Denies any palpitation. Past history is significant for HIV/AIDS, COPD, very noncompliance to medication and office visit. PAST HISTORY: As mentioned, significant HIV/AIDS, T-cell 25, chronic obstructive pulmonary disease, history of asthma, history of chronic back pain. SOCIAL HISTORY: Ex-IV drug abuse, quit more than 5 to 6 years ago, history of tobacco abuse. No history of alcohol abuse. FAMILY HISTORY: Noncontributory. PAST SURGICAL HISTORY: Removal of the neck mass in 1999. CURRENT MEDICATIONS: Patient at home was taking prednisone, methadone. ALLERGIES: ALLERGY TO LEVAQUIN, PENICILLIN, AZITHROMYCIN, FLEXERIL. REVIEW OF SYSTEMS: As per HPI. PHYSICAL EXAMINATION: VITAL SIGNS: Temperature afebrile, heart rate 71, blood pressure 92/58. HEENT: PERRLA. Extraocular muscles intact. NECK: Supple. No carotid bruit or thyromegaly. CHEST: Clear to auscultation. HEART: S1 and S2, regular. ABDOMEN: Soft. EXTREMITIES: Clubbing and cyanosis negative. PREVIOUS CARDIAC WORKUP: The patient had an echo on 12/25/2014 that revealed normal ejection fraction of 50% to 55%, borderline global hypokinesis of the left ventricle, mild mitral regurgitation, mild tricuspid regurgitation, RV systolic pressure of 32 dated 12/26/2014. LABORATORY DATA: Blood workup, WBC 1.9, hemoglobin 8.9, hematocrit 26.2, platelet count 66. Chemistry shows sodium 141, potassium 3, chloride 101, carbon dioxide 24, anion gap of 10, BUN 36, creatinine 1.4. Blood gas shows pCO2 of 42, pO2 of 138, PA 7.26. Chest x-ray mild pulmonary vascular marking. IMPRESSION: Human immunodeficiency virus, chronic obstructive pulmonary disease, shortness of breath, hypotension, neutropenic, pancytopenic, rule out neutropenic sepsis, rule out acquired immunodeficiency syndrome related pulmonary disease, tachycardia, multifactorial secondary to possibly sepsis, anemia, shortness of breath and atypical pneumonia. RECOMMENDATION: We will get an echo to assess LV function, IV fluid, antibiotic broad spectrum. So far patient is not tachycardic, does not need any beta-nicolle right now because the heart rate is 70 and blood pressure is holding at low 90. If the blood pressure dips down, we will consider Levophed, otherwise we will continue to monitor closely and gentle fluid. Get echo. Further recommendation per hospital course. We will follow with you. Overall, the patient's critical long-term prognosis is guarded. I discussed with Dr. Sheridan, credit counselor, for sending the patient for V/Q to rule out any PE, though patient's creatinine is elevated, so not sending for CT scan. Yesterday creatinine was 2, but that accounts for about creatinine clearance 25 mL an hour. Now creatinine is 1.4. Still creatinine clearance is 40 mL an hour. We will get TSH and hemoglobin A1c. Thank you Dr. Carter for providing us the opportunity in taking care of the patient, Veronica Ruiz. Cara Veliz MD
[2018-02-09] MEDS: Albuterol-Ipratrop 3 mg / 0.5 (3 ml) UD IH SCH ×4 (02:11→19:24)
[2018-02-09 02:17] LABS: ARTERIAL BLOOD GAS HEMOGLOBIN 8.9 g/dL (11.7-17.4); ARTERIAL BLOOD GAS O2 CAPACITY 12.3 mL/dl (16-24); ARTERIAL BLOOD GAS O2 SAT 97.8 % (95-98); ARTERIAL BLOOD GAS PCO2 55 mm/Hg (35-45); ARTERIAL BLOOD GAS PH 7.23 (7.35-7.45); ARTERIAL BLOOD GAS TCO2 24.7 mmol.L (22-28)
[2018-02-09 06:39] LABS: ARTERIAL BLOOD GAS HCO3 23.9 mmol/L (21-28); ARTERIAL BLOOD GAS O2 SAT 97.7 % (95-98); ARTERIAL BLOOD GAS PCO2 52 mm/Hg (35-45); ARTERIAL BLOOD GAS PH 7.27 (7.35-7.45); ARTERIAL BLOOD GAS TCO2 25.5 mmol.L (22-28)
[2018-02-09 08:20] LABS: GRAN # 1.51 (1.4-6.5); HEMOGLOBIN 9.5 g/dL (12.0-16.0); LYMPH # 0.3 (1.2-3.4); LYMPH % 14.8 % (22.0-35.0); MEAN CELL VOLUME 81.5 fl (80.0-105.0); MEAN CORPUSCULAR HEMOGLOBIN 25.5 pg (25.0-35.0); MEAN CORPUSCULAR HGB CONC 31.4 g/dl (31.0-37.0); MEAN PLATELET VOLUME 9.5 fl (7.0-11.0); MONO # 0.2 (0.1-0.6); MONO % 8.2 % (1.0-6.0); RBC 3.72 10^6/uL (3.5-6.1); RED CELL DISTRIBUTION WIDTH 16.7 % (11.5-14.5)
[2018-02-09 08:31] LABS: ALB/GLOB RATIO 0.7 (1.1-1.8); ALBUMIN 2.6 g/dL (3.0-4.8); ALT/SGPT 33 U/L (7-56); AST/SGOT 49 U/L (14-36); BLOOD UREA NITROGEN 34 mg/dL (7-21); CALCIUM 8.4 mg/dL (8.4-10.5); GFR AFRICAN-AMERICAN > 60; GFR NON-AFRICAN AMERICAN > 60; HDL CHOLESTEROL 30 mg/dL (29-60)
[2018-02-09 08:38] LABS: LDL CHOLESTEROL 33 mg/dL (0-129)
[2018-02-09] MEDS: MethylPREDNISolone 40 mg Vial IVP SCH ×2 (09:59→22:05)
[2018-02-09] MEDS: Meropenem IV 1 gm in NS 50 ML IVPB SCH ×2 (10:00→22:00)
[2018-02-09] MEDS: Primaquine 26.3 mg Tab PO SCH (10:02)
--- NOTE | 2018-02-09 11:29 | CON ---
DATE: 02/08/2018 PULMONARY CRITICAL CARE CONSULT REFERRING PHYSICIAN: Dr. Carter. REASON FOR CONSULT: Respiratory failure. HISTORY OF PRESENT ILLNESS: This is a 37-year-old female known to me from previous admission, noncompliant with the followup and recommendation, has a known history of end-stage AIDS, chronic obstructive lung disease, history of hepatitis C, history of substance abuse, methadone dependent, has shortness of breath, progressively was getting worse, comes in to emergency room, admitted to Intensive Care Unit, presently requiring noninvasive ventilation, very lethargic, arousable, goes back to sleep. No hemoptysis, hematemesis, hematuria, diarrhea reported. PAST MEDICAL HISTORY: As per history of present illness. ALLERGIES: PENICILLIN, ALSO ALLERGIC TO LEVAQUIN. SOCIAL HISTORY: Positive history of smoking, substance abuse, methadone dependent. FAMILY HISTORY: No significant cardiopulmonary disease reported. MEDICATIONS: She is on clindamycin 900 mg every 8 hour, DuoNeb every 6 hour, IV dobutamine is started, doxycycline 100 mg twice a day, heparin 5000 units subcu every 12 hour, meropenem 1 g IV every 12 hour, methadone mg daily, which is on hold, Primaquine 26.3 mg daily, Protonix 40 mg daily, Solu-Medrol 40 mg every 12 hour. REVIEW OF SYSTEMS: She is sleepy and tired, on noninvasive ventilation, opens eye, but nonverbal stimuli. No hemoptysis. No hematemesis. No hematuria. No diarrhea. Leg swelling reported. PHYSICAL EXAMINATION: GENERAL: Lethargy, on noninvasive ventilation. VITAL SIGNS: Temperature is 98, heart rate 61, respiratory rate is 10, blood pressure 108/65, pulse ox 98% on BiPAP. NECK: Supple. No JVD. LUNGS: Have a few scattered rhonchi and wheezing. HEART: S1 and S2. ABDOMEN: Soft and nontender. No organomegaly. EXTREMITIES: There is no edema. NEUROLOGIC: Very lethargy, on noninvasive ventilation. LABORATORY DATA: Shows hemoglobin 8.5, hematocrit 26.2, WBC 1.9, platelet count is 66. INR is 0.93, PTT is 38. Last blood gases shows pH 7.24, pCO2 of 53, O2 of 82, this is on BiPAP supplemental oxygen. Sodium 141, potassium 3.8, chloride 111, bicarbonate 24, BUN 36, creatinine 1.4, glucose 146, calcium 7.5, AST 47, ALT 32, alk phos is 42, LDH is 549, albumin 2.5, procalcitonin 0.05. Urinalysis shows wbc 10 to 15. Microbiology: Blood culture so far there is no growth. DIAGNOSTIC DATA: Has a VQ scan done shows low probability of ventilation perfusion scan for pulmonary embolism, heterogenous perfusion of the both lung parenchyma. Echocardiogram show right ventricle systolic pressure is 45, left ventricle systolic function is borderline, moderate pulmonary hypertension. Chest x-ray showed no active pulmonary disease reported. Venous Doppler lower extremity negative for DVT. IMPRESSION AND PLAN: Respiratory failure with carbon dioxide retention and hypoxemia, end-stage acquired immune deficiency syndrome with severe chronic obstructive lung disease, substance abuse. Case discussed with machine egg washer, Dr. Sheridan in detail. Agree with the present regimen. Continue intravenous and inhaled bronchodilator. Continue antibiotics covering infection, being followed by Infectious Diseases. If her gases does not improve, may need intubation and may need CT of the head but I agree with Dr. Sheridan, is most likely probably could be just sedative effect with hypoventilation syndrome, but need to watch intensive care unit closely. Follow up ABG. Follow up CAT scan if does not wake up. Thank you and we will follow with you. Cara Barajas MD
--- NOTE | 2018-02-09 12:35 | CP.CCUPN ---
<Guille Sepulveda - Last Filed: 02/09/18 14:40> CCU Subjective - Physician Review Subjective (Free Text): 02/09/18 12:32 Patient seen and examined at bedside in no acute distress and without complaints besides timing of methadone dosage. Denies current shortness of breath, chest pain, nausea, vomiting, diarrhea, abdominal pain, headache, fevers , chills. CCU Objective - Vital Signs / Intake & Output Vital Signs (Last 4 hours): Vital Signs Temp Pulse Resp BP Pulse Ox 02/09/18 11:10 94 H 17 96 02/09/18 11:00 79 13 98 02/09/18 10:50 90 18 96 02/09/18 10:40 82 16 95 02/09/18 10:30 95 H 32 H 85 L 02/09/18 10:20 81 22 97 02/09/18 10:10 80 15 91 L 02/09/18 10:00 79 14 98/50 L 97 02/09/18 09:50 87 20 91 L 02/09/18 09:40 84 14 95 02/09/18 09:30 82 14 96 02/09/18 09:20 83 13 99 02/09/18 09:10 85 19 94 L 02/09/18 09:08 97.6 F 02/09/18 09:05 76 02/09/18 09:00 88 16 96 02/09/18 08:50 76 14 98 02/09/18 08:40 83 14 100 Intake and Output (Last 8hrs): Intake & Output 02/08/18 02/09/18 02/09/18 22:59 06:59 14:59 Intake Total 1327 948 Output Total 280 800 Balance 1047 148 Intake: IV 1207 548 Left Upper arm 1207 548 Oral 120 400 Output: Urine 280 800 Urine, Voided 280 800 Other: # Voids Urine, Voided 3 - Physical Exam Head: Positive for: Atraumatic, Normocephalic Pupils: Positive for: PERRL Extroacular Muscles: Positive for: EOMI Conjunctiva: Positive for: Normal Mouth: Positive for: Moist Mucous Membranes Neck: Positive for: Normal Range of Motion Respiratory/Chest: Positive for: Good Air Exchange, Wheezes (left lower lobe), Decreased Breath Sounds, Rhonchi (diffuse). Negative for: Clear to Auscultation , Respiratory Distress, Accessory Muscle Use, Tachypneic, Tender to Palpation Cardiovascular: Positive for: Regular Rate and Rhythm, Normal S1, S2. Negative for: Murmurs Abdomen: Negative for: Tenderness, Distention, Peritoneal Signs Back: Positive for: Normal Inspection. Negative for: CVA Tenderness Upper Extremity: Positive for: Normal Inspection, Normal ROM. Negative for: Cyanosis, Edema Lower Extremity: Positive for: Normal Inspection, Normal ROM. Negative for: Edema Neurological: Positive for: GCS=15, CN II-XII Intact, Speech Normal Skin: Positive for: Warm, Dry, Normal Color. Negative for: Rashes Psychiatric: Positive for: Alert, Oriented x 3, Normal Insight, Normal Concentration - Medications Active Medications: Active Medications Generic Name Dose Route Start Last Admin Trade Name Freq PRN Reason Stop Dose Admin Albuterol/Ipratropium 3 ml 02/08/18 08:00 02/09/18 08:30 Duoneb 3 Mg/0.5 Mg (3 Ml) Ud IH 3 ml [id number] EDSON Administration Albuterol/Ipratropium 3 ml 02/08/18 05:10 02/08/18 06:10 Duoneb 3 Mg/0.5 Mg (3 Ml) Ud IH 3 ml Q2H PRN Administration Shortness of Breath Heparin Sodium (Porcine) 5,000 units 02/08/18 12:30 02/09/18 10:00 Heparin SC 5,000 units Q12 EDSON Administration Protocol Doxycycline Hyclate 100 mg/ 100 mls @ 100 mls/hr 02/08/18 10:00 02/09/18 09: 59 Sodium Chloride IVPB 100 mls/hr Q12 EDSON Administration Protocol Clindamycin Phosphate 900 mg/ 106 mls @ 106 mls/hr 02/08/18 14:00 02/09/18 05 :53 Sodium Chloride IVPB 02/22/18 14:01 106 mls/hr Q8 EDSON Administration Protocol Meropenem 50 mls @ 100 mls/hr 02/08/18 22:00 02/09/18 10:00 Merrem Iv 1 Gm Premix IVPB 02/17/18 22:01 100 mls/hr Q12 EDSON Administration Protocol Methadone HCl 150 mg 02/08/18 10:30 02/08/18 14:52 Methadone PO 150 mg DAILY EDSON Administration Methylprednisolone 40 mg 02/08/18 07:00 02/09/18 09:59 Solu-Medrol IVP 40 mg Q12 EDSON Administration Pantoprazole Sodium 40 mg 02/08/18 17:45 02/09/18 09:59 Protonix Inj IVP 40 mg DAILY EDSON Administration Primaquine Phosphate 26.3 mg 02/08/18 12:01 02/09/18 10:02 Primaquine PO 02/17/18 12:02 26.3 mg DAILY EDSON Administration Protocol - Patient Studies Lab Studies: Lab Studies 02/09/18 02/09/18 02/09/18 Range/Units 08:00 08:00 06:00 WBC 2.0 L* (4.5-11.0) 10^3/ul RBC 3.72 (3.5-6.1) 10^6/uL Hgb 9.5 L (12.0-16.0) g/dL Hct 30.3 L (36.0-48.0) % MCV 81.5 (80.0-105.0) fl MCH 25.5 (25.0-35.0) pg MCHC 31.4 (31.0-37.0) g/dl RDW 16.7 H (11.5-14.5) % Plt Count 63 L (120.0-450.0) 10^3/uL MPV 9.5 (7.0-11.0) fl Gran % 77.0 H (50.0-68.0) % Lymph % (Auto) 14.8 L (22.0-35.0) % [place] % (Auto) 8.2 H (1.0-6.0) % Eos % (Auto) 0.0 L (1.5-5.0) % Baso % (Auto) 0.0 (0.0-3.0) % Gran # 1.51 (1.4-6.5) Lymph # (Auto) 0.3 L (1.2-3.4) [place] # (Auto) 0.2 (0.1-0.6) Eos # (Auto) 0.0 (0.0-0.7) Baso # (Auto) 0.00 (0.0-2.0) K/mm3 pCO2 (35-45) mm/Hg pO2 (80-100) mm/Hg HCO3 (21-28) mmol/L ABG pH (7.35-7.45) ABG Total CO2 (22-28) mmol.L ABG O2 Saturation (95-98) % ABG O2 Content (15-23) ML/dl ABG Base Excess (-2.0-3.0) mmol/L ABG Hemoglobin (11.7-17.4) g/dL ABG Carboxyhemoglobin (0.5-1.5) % POC ABG HHb (Measured) (0-5) % ABG Methemoglobin (0.0-3.0) % ABG O2 Capacity (16-24) mL/dl ABG Potassium (3.6-5.2) mmol/L Hgb O2 Saturation (95.0-98.0) % Sodium 144 (132-148) mmol/L Chloride 114 H (98-107) mmol/L Glucose (65-105) mg/dl Lactate (0.7-2.1) mmol/L FiO2 % Inspiratory BiPAP Potassium 3.9 (3.6-5.0) mmol/L Carbon Dioxide 23 (21-33) mmol/L Anion Gap 12 (10-20) BUN 34 H (7-21) mg/dL Creatinine 0.9 (0.7-1.2) mg/dl Est GFR ( Amer) > 60 Est GFR (Non-Af Amer) > 60 Random Glucose 125 H (70-110) mg/dL Calcium 8.4 (8.4-10.5) mg/dL Phosphorus 3.7 (2.5-4.5) mg/dL Magnesium 2.0 (1.7-2.2) mg/dL Total Bilirubin < 0.1 L (0.2-1.3) mg/dL AST 49 H (14-36) U/L ALT 33 (7-56) U/L Alkaline Phosphatase 44 (38-126) U/L Lactate Dehydrogenase (333-699) U/L Total Protein 6.4 (5.8-8.3) g/dL Albumin 2.6 L (3.0-4.8) g/dL Globulin 3.8 gm/dL Albumin/Globulin Ratio 0.7 L (1.1-1.8) Triglycerides 197 H (35-160) mg/dL Cholesterol 104 L (130-200) mg/dL LDL Cholesterol Direct 33 (0-129) mg/dL HDL Cholesterol 30 (29-60) mg/dL Procalcitonin (0.19-0.49) NG/ML TSH 3rd Generation 0.25 L (0.46-4.68) mIU/mL Arterial Blood Potassium (3.6-5.2) mmol/L 02/09/18 02/08/18 02/08/18 Range/Units 05:00 19:35 16:16 WBC (4.5-11.0) 10^3/ul RBC (3.5-6.1) 10^6/uL Hgb (12.0-16.0) g/dL Hct (36.0-48.0) % MCV (80.0-105.0) fl MCH (25.0-35.0) pg MCHC (31.0-37.0) g/dl RDW (11.5-14.5) % Plt Count (120.0-450.0) 10^3/uL MPV (7.0-11.0) fl Gran % (50.0-68.0) % Lymph % (Auto) (22.0-35.0) % [place] % (Auto) (1.0-6.0) % Eos % (Auto) (1.5-5.0) % Baso % (Auto) (0.0-3.0) % Gran # (1.4-6.5) Lymph # (Auto) (1.2-3.4) [place] # (Auto) (0.1-0.6) Eos # (Auto) (0.0-0.7) Baso # (Auto) (0.0-2.0) K/mm3 pCO2 52 H 55 H 53 H (35-45) mm/Hg pO2 82.0 67.0 L 82.0 (80-100) mm/Hg HCO3 23.9 23.0 22.7 (21-28) mmol/L ABG pH 7.27 L 7.23 L 7.24 L (7.35-7.45) ABG Total CO2 25.5 24.7 24.3 (22-28) mmol.L ABG O2 Saturation 97.7 97.8 98.1 H (95-98) % ABG O2 Content 12.0 L (15-23) ML/dl ABG Base Excess -3.6 L -4.6 L -5.2 L (-2.0-3.0) mmol/L ABG Hemoglobin 8.9 L (11.7-17.4) g/dL ABG Carboxyhemoglobin 1.8 H (0.5-1.5) % POC ABG HHb (Measured) 2.1 (0-5) % ABG Methemoglobin 0.9 (0.0-3.0) % ABG O2 Capacity 12.3 L (16-24) mL/dl ABG Potassium 3.7 3.7 (3.6-5.2) mmol/L Hgb O2 Saturation 95.2 (95.0-98.0) % Sodium 142.0 142.0 (132-148) mmol/L Chloride 116.0 H 114.0 H (98-107) mmol/L Glucose 129 H 146 H (65-105) mg/dl Lactate 0.6 L 1.1 (0.7-2.1) mmol/L FiO2 35.0 32.0 35.0 % Inspiratory BiPAP 12 Potassium (3.6-5.0) mmol/L Carbon Dioxide (21-33) mmol/L Anion Gap (10-20) BUN (7-21) mg/dL Creatinine (0.7-1.2) mg/dl Est GFR ( Amer) Est GFR (Non-Af Amer) Random Glucose (70-110) mg/dL Calcium (8.4-10.5) mg/dL Phosphorus (2.5-4.5) mg/dL Magnesium (1.7-2.2) mg/dL Total Bilirubin (0.2-1.3) mg/dL AST (14-36) U/L ALT (7-56) U/L Alkaline Phosphatase (38-126) U/L Lactate Dehydrogenase (333-699) U/L Total Protein (5.8-8.3) g/dL Albumin (3.0-4.8) g/dL Globulin gm/dL Albumin/Globulin Ratio (1.1-1.8) Triglycerides (35-160) mg/dL Cholesterol (130-200) mg/dL LDL Cholesterol Direct (0-129) mg/dL HDL Cholesterol (29-60) mg/dL Procalcitonin (0.19-0.49) NG/ML TSH 3rd Generation (0.46-4.68) mIU/mL Arterial Blood Potassium 3.7 3.7 (3.6-5.2) mmol/L 02/08/18 02/08/18 Range/Units 12:15 12:15 WBC (4.5-11.0) 10^3/ul RBC (3.5-6.1) 10^6/uL Hgb (12.0-16.0) g/dL Hct (36.0-48.0) % MCV (80.0-105.0) fl MCH (25.0-35.0) pg MCHC (31.0-37.0) g/dl RDW (11.5-14.5) % Plt Count (120.0-450.0) 10^3/uL MPV (7.0-11.0) fl Gran % (50.0-68.0) % Lymph % (Auto) (22.0-35.0) % [place] % (Auto) (1.0-6.0) % Eos % (Auto) (1.5-5.0) % Baso % (Auto) (0.0-3.0) % Gran # (1.4-6.5) Lymph # (Auto) (1.2-3.4) [place] # (Auto) (0.1-0.6) Eos # (Auto) (0.0-0.7) Baso # (Auto) (0.0-2.0) K/mm3 pCO2 (35-45) mm/Hg pO2 (80-100) mm/Hg HCO3 (21-28) mmol/L ABG pH (7.35-7.45) ABG Total CO2 (22-28) mmol.L ABG O2 Saturation (95-98) % ABG O2 Content (15-23) ML/dl ABG Base Excess (-2.0-3.0) mmol/L ABG Hemoglobin (11.7-17.4) g/dL ABG Carboxyhemoglobin (0.5-1.5) % POC ABG HHb (Measured) (0-5) % ABG Methemoglobin (0.0-3.0) % ABG O2 Capacity (16-24) mL/dl ABG Potassium (3.6-5.2) mmol/L Hgb O2 Saturation (95.0-98.0) % Sodium (132-148) mmol/L Chloride (98-107) mmol/L Glucose (65-105) mg/dl Lactate (0.7-2.1) mmol/L FiO2 % Inspiratory BiPAP Potassium (3.6-5.0) mmol/L Carbon Dioxide (21-33) mmol/L Anion Gap (10-20) BUN (7-21) mg/dL Creatinine (0.7-1.2) mg/dl Est GFR ( Amer) Est GFR (Non-Af Amer) Random Glucose (70-110) mg/dL Calcium (8.4-10.5) mg/dL Phosphorus (2.5-4.5) mg/dL Magnesium (1.7-2.2) mg/dL Total Bilirubin (0.2-1.3) mg/dL AST (14-36) U/L ALT (7-56) U/L Alkaline Phosphatase (38-126) U/L Lactate Dehydrogenase 549 (333-699) U/L Total Protein (5.8-8.3) g/dL Albumin (3.0-4.8) g/dL Globulin gm/dL Albumin/Globulin Ratio (1.1-1.8) Triglycerides (35-160) mg/dL Cholesterol (130-200) mg/dL LDL Cholesterol Direct (0-129) mg/dL HDL Cholesterol (29-60) mg/dL Procalcitonin < 0.05 L (0.19-0.49) NG/ML TSH 3rd Generation (0.46-4.68) mIU/mL Arterial Blood Potassium (3.6-5.2) mmol/L Laboratory Results - last 24 hr 02/08/18 02/08/18 02/08/18 12:15 12:15 16:16 WBC RBC Hgb Hct MCV MCH MCHC RDW Plt Count MPV Gran % Lymph % (Auto) [place] % (Auto) Eos % (Auto) Baso % (Auto) Gran # Lymph # (Auto) [place] # (Auto) Eos # (Auto) Baso # (Auto) pCO2 53 H pO2 82.0 HCO3 22.7 ABG pH 7.24 L ABG Total CO2 24.3 ABG O2 Saturation 98.1 H ABG O2 Content ABG Base Excess -5.2 L ABG Hemoglobin ABG Carboxyhemoglobin POC ABG HHb (Measured) ABG Methemoglobin ABG O2 Capacity ABG Potassium 3.7 Hgb O2 Saturation Sodium 142.0 Chloride 114.0 H Glucose 146 H Lactate 1.1 FiO2 35.0 Inspiratory BiPAP 12 Potassium Carbon Dioxide Anion Gap BUN Creatinine Est GFR ( Amer) Est GFR (Non-Af Amer) Random Glucose Calcium Phosphorus Magnesium Total Bilirubin AST ALT Alkaline Phosphatase Lactate Dehydrogenase 549 Total Protein Albumin Globulin Albumin/Globulin Ratio Triglycerides Cholesterol LDL Cholesterol Direct HDL Cholesterol Procalcitonin < 0.05 L TSH 3rd Generation Arterial Blood Potassium 3.7 02/08/18 02/09/18 02/09/18 19:35 05:00 06:00 WBC RBC Hgb Hct MCV MCH MCHC RDW Plt Count MPV Gran % Lymph % (Auto) [place] % (Auto) Eos % (Auto) Baso % (Auto) Gran # Lymph # (Auto) [place] # (Auto) Eos # (Auto) Baso # (Auto) pCO2 55 H 52 H pO2 67.0 L 82.0 HCO3 23.0 23.9 ABG pH 7.23 L 7.27 L ABG Total CO2 24.7 25.5 ABG O2 Saturation 97.8 97.7 ABG O2 Content 12.0 L ABG Base Excess -4.6 L -3.6 L ABG Hemoglobin 8.9 L ABG Carboxyhemoglobin 1.8 H POC ABG HHb (Measured) 2.1 ABG Methemoglobin 0.9 ABG O2 Capacity 12.3 L ABG Potassium 3.7 Hgb O2 Saturation 95.2 Sodium 142.0 Chloride 116.0 H Glucose 129 H Lactate 0.6 L FiO2 32.0 35.0 Inspiratory BiPAP Potassium Carbon Dioxide Anion Gap BUN Creatinine Est GFR ( Amer) Est GFR (Non-Af Amer) Random Glucose Calcium Phosphorus Magnesium Total Bilirubin AST ALT Alkaline Phosphatase Lactate Dehydrogenase Total Protein Albumin Globulin Albumin/Globulin Ratio Triglycerides Cholesterol LDL Cholesterol Direct HDL Cholesterol Procalcitonin TSH 3rd Generation 0.25 L Arterial Blood Potassium 3.7 02/09/18 02/09/18 08:00 08:00 WBC 2.0 L* RBC 3.72 Hgb 9.5 L Hct 30.3 L MCV 81.5 MCH 25.5 MCHC 31.4 RDW 16.7 H Plt Count 63 L MPV 9.5 Gran % 77.0 H Lymph % (Auto) 14.8 L [place] % (Auto) 8.2 H Eos % (Auto) 0.0 L Baso % (Auto) 0.0 Gran # 1.51 Lymph # (Auto) 0.3 L [place] # (Auto) 0.2 Eos # (Auto) 0.0 Baso # (Auto) 0.00 pCO2 pO2 HCO3 ABG pH ABG Total CO2 ABG O2 Saturation ABG O2 Content ABG Base Excess ABG Hemoglobin ABG Carboxyhemoglobin POC ABG HHb (Measured) ABG Methemoglobin ABG O2 Capacity ABG Potassium Hgb O2 Saturation Sodium 144 Chloride 114 H Glucose Lactate FiO2 Inspiratory BiPAP Potassium 3.9 Carbon Dioxide 23 Anion Gap 12 BUN 34 H Creatinine 0.9 Est GFR ( Amer) > 60 Est GFR (Non-Af Amer) > 60 Random Glucose 125 H Calcium 8.4 Phosphorus 3.7 Magnesium 2.0 Total Bilirubin < 0.1 L AST 49 H ALT 33 Alkaline Phosphatase 44 Lactate Dehydrogenase Total Protein 6.4 Albumin 2.6 L Globulin 3.8 Albumin/Globulin Ratio 0.7 L Triglycerides 197 H Cholesterol 104 L LDL Cholesterol Direct 33 HDL Cholesterol 30 Procalcitonin TSH 3rd Generation Arterial Blood Potassium Review of Systems - Constitutional Constitutional: absent: Fever, Chills, Sweats - EENT Eyes: absent: Blurred Vision, Change in Vision - Cardiovascular Cardiovascular: absent: Chest Pain, Dyspnea - Respiratory Respiratory: absent: Cough, Dyspnea - Gastrointestinal Gastrointestinal: absent: Abdominal Pain, Diarrhea, Nausea, Vomiting - Genitourinary Genitourinary: absent: Dysuria - Musculoskeletal Musculoskeletal: absent: Arthralgias, Back Pain - Neurological Neurological: absent: Dizziness, Numbness, Headaches - Psychiatric Psychiatric: absent: Anxiety - Endocrine Endocrine: UNREMARKABLE. absent: Fatigue Critical Care Progress Note - Nutrition Nutrition: Nutrition Category Date Time Status Heart Healthy Diet [DIET] Diets 02/08/18 Breakfast Ordered Assessment/Plan - Assessment and Plan (Free Text) Assessment: Patient is a 37 year old female with history of HIV with unknown CD4 count, COPD , chronic pain syndrome medicated with methadone who presented with acute shortness of breath, cough, and tachycardia found to be septic and in acute respiratory failure. Neuro: - AAO x 3 - Pain control; will be cautious with methadone as it can suppress patient's respiratory drive. Will give 50 mg instead of 150. Pulm: - CXR showed increased interstitial markings - maintain SPO2 >90-94 - Duoneb Sched and PRN - Continue with steroids - Cont home medications - 98% O2 on 2L NC CV: - Currently on dobutamine drip for right ventricular failure - maintain MAP > 65 - Cont to monitor GI: - ppx with protonix Renal: - Avoid nephrotoxic medications - replete electrolytes as needed ID: -HIV positive -Patient currently on steroids, doxycycline,primaquine/clindamycin for possible PCP -CMV, cryptococcus, fungitell B-D glucan, strep pneumo antigen, legionella urine ag ordered; results pending -Blood, Sputum culture results pending Heme: - Stable - Monitor H/H GI/ DVT ppx - Protonix and Heparin Dispo: Patient has been transferred to [facility] <Simeon Sheridan - Last Filed: 02/09/18 15:46> CCU Objective - Vital Signs / Intake & Output Vital Signs (Last 4 hours): Vital Signs Pulse Resp BP Pulse Ox 02/09/18 15:10 86 24 96 02/09/18 15:00 81 20 95 02/09/18 14:50 83 23 91 L 02/09/18 14:40 83 25 H 90 L 02/09/18 14:30 75 15 93 L 02/09/18 14:20 78 15 94 L 02/09/18 14:10 74 16 96 02/09/18 14:00 73 17 93/55 L 93 L 02/09/18 13:50 81 16 94 L 02/09/18 13:40 76 19 94 L 02/09/18 13:30 76 18 94 L 02/09/18 13:20 81 40 H 94 L 02/09/18 13:10 80 28 H 95 02/09/18 13:00 85 16 95 02/09/18 12:50 92 H 46 H 95 02/09/18 12:40 90 20 88 L 02/09/18 12:30 90 18 96 02/09/18 12:20 88 23 88 L 02/09/18 12:10 81 16 93 L 02/09/18 12:00 79 13 95/51 L 96 02/09/18 11:50 78 16 97 Intake and Output (Last 8hrs): Intake & Output 02/09/18 02/09/18 02/09/18 06:59 14:59 22:59 Intake Total 948 Output Total 800 Balance 148 Intake: IV 548 Left Upper arm 548 Oral 400 Output: Urine 800 Urine, Voided 800 Other: # Voids Urine, Voided 3 - Medications Active Medications: Active Medications Generic Name Dose Route Start Last Admin Trade Name Freq PRN Reason Stop Dose Admin Albuterol/Ipratropium 3 ml 02/08/18 08:00 02/09/18 14:31 Duoneb 3 Mg/0.5 Mg (3 Ml) Ud IH 3 ml [id number] EDSON Administration Albuterol/Ipratropium 3 ml 02/08/18 05:10 02/08/18 06:10 Duoneb 3 Mg/0.5 Mg (3 Ml) Ud IH 3 ml Q2H PRN Administration Shortness of Breath Heparin Sodium (Porcine) 5,000 units 02/08/18 12:30 02/09/18 10:00 Heparin SC 5,000 units Q12 EDSON Administration Protocol Doxycycline Hyclate 100 mg/ 100 mls @ 100 mls/hr 02/08/18 10:00 02/09/18 09: 59 Sodium Chloride IVPB 100 mls/hr Q12 EDSON Administration Protocol Clindamycin Phosphate 900 mg/ 106 mls @ 106 mls/hr 02/08/18 14:00 02/09/18 14 :37 Sodium Chloride IVPB 02/22/18 14:01 106 mls/hr Q8 EDSON Administration Protocol Meropenem 50 mls @ 100 mls/hr 02/08/18 22:00 02/09/18 10:00 Merrem Iv 1 Gm Premix IVPB 02/17/18 22:01 100 mls/hr Q12 EDSON Administration Protocol Methadone HCl 150 mg 02/08/18 10:30 02/08/18 14:52 Methadone PO 150 mg DAILY EDSON Administration Methylprednisolone 40 mg 02/08/18 07:00 02/09/18 09:59 Solu-Medrol IVP 40 mg Q12 EDSON Administration Pantoprazole Sodium 40 mg 02/10/18 07:30 Protonix Ec Tab PO ACB EDSON Primaquine Phosphate 26.3 mg 02/08/18 12:01 02/09/18 10:02 Primaquine PO 02/17/18 12:02 26.3 mg DAILY EDSON Administration Protocol - Patient Studies Lab Studies: Lab Studies 02/09/18 02/09/18 02/09/18 Range/Units 08:00 08:00 08:00 WBC 2.0 L* (4.5-11.0) 10^3/ul RBC 3.72 (3.5-6.1) 10^6/uL Hgb 9.5 L (12.0-16.0) g/dL Hct 30.3 L (36.0-48.0) % MCV 81.5 (80.0-105.0) fl MCH 25.5 (25.0-35.0) pg MCHC 31.4 (31.0-37.0) g/dl RDW 16.7 H (11.5-14.5) % Plt Count 63 L (120.0-450.0) 10^3/uL MPV 9.5 (7.0-11.0) fl Gran % 77.0 H (50.0-68.0) % Lymph % (Auto) 14.8 L (22.0-35.0) % [place] % (Auto) 8.2 H (1.0-6.0) % Eos % (Auto) 0.0 L (1.5-5.0) % Baso % (Auto) 0.0 (0.0-3.0) % Gran # 1.51 (1.4-6.5) Lymph # (Auto) 0.3 L (1.2-3.4) [place] # (Auto) 0.2 (0.1-0.6) Eos # (Auto) 0.0 (0.0-0.7) Baso # (Auto) 0.00 (0.0-2.0) K/mm3 pCO2 (35-45) mm/Hg pO2 (80-100) mm/Hg HCO3 (21-28) mmol/L ABG pH (7.35-7.45) ABG Total CO2 (22-28) mmol.L ABG O2 Saturation (95-98) % ABG O2 Content (15-23) ML/dl ABG Base Excess (-2.0-3.0) mmol/L ABG Hemoglobin (11.7-17.4) g/dL ABG Carboxyhemoglobin (0.5-1.5) % POC ABG HHb (Measured) (0-5) % ABG Methemoglobin (0.0-3.0) % ABG O2 Capacity (16-24) mL/dl ABG Potassium (3.6-5.2) mmol/L Hgb O2 Saturation (95.0-98.0) % Sodium 144 (132-148) mmol/L Chloride 114 H (98-107) mmol/L Glucose (65-105) mg/dl Lactate (0.7-2.1) mmol/L FiO2 % Inspiratory BiPAP Potassium 3.9 (3.6-5.0) mmol/L Carbon Dioxide 23 (21-33) mmol/L Anion Gap 12 (10-20) BUN 34 H (7-21) mg/dL Creatinine 0.9 (0.7-1.2) mg/dl Est GFR ( Amer) > 60 Est GFR (Non-Af Amer) > 60 Random Glucose 125 H (70-110) mg/dL Hemoglobin A1c 6.0 (4.2-6.5) % Calcium 8.4 (8.4-10.5) mg/dL Phosphorus 3.7 (2.5-4.5) mg/dL Magnesium 2.0 (1.7-2.2) mg/dL Total Bilirubin < 0.1 L (0.2-1.3) mg/dL AST 49 H (14-36) U/L ALT 33 (7-56) U/L Alkaline Phosphatase 44 (38-126) U/L Total Protein 6.4 (5.8-8.3) g/dL Albumin 2.6 L (3.0-4.8) g/dL Globulin 3.8 gm/dL Albumin/Globulin Ratio 0.7 L (1.1-1.8) Triglycerides 197 H (35-160) mg/dL Cholesterol 104 L (130-200) mg/dL LDL Cholesterol Direct 33 (0-129) mg/dL HDL Cholesterol 30 (29-60) mg/dL Procalcitonin (0.19-0.49) NG/ML TSH 3rd Generation (0.46-4.68) mIU/mL Arterial Blood Potassium (3.6-5.2) mmol/L 02/09/18 02/09/18 02/08/18 Range/Units 06:00 05:00 19:35 WBC (4.5-11.0) 10^3/ul RBC (3.5-6.1) 10^6/uL Hgb (12.0-16.0) g/dL Hct (36.0-48.0) % MCV (80.0-105.0) fl MCH (25.0-35.0) pg MCHC (31.0-37.0) g/dl RDW (11.5-14.5) % Plt Count (120.0-450.0) 10^3/uL MPV (7.0-11.0) fl Gran % (50.0-68.0) % Lymph % (Auto) (22.0-35.0) % [place] % (Auto) (1.0-6.0) % Eos % (Auto) (1.5-5.0) % Baso % (Auto) (0.0-3.0) % Gran # (1.4-6.5) Lymph # (Auto) (1.2-3.4) [place] # (Auto) (0.1-0.6) Eos # (Auto) (0.0-0.7) Baso # (Auto) (0.0-2.0) K/mm3 pCO2 52 H 55 H (35-45) mm/Hg pO2 82.0 67.0 L (80-100) mm/Hg HCO3 23.9 23.0 (21-28) mmol/L ABG pH 7.27 L 7.23 L (7.35-7.45) ABG Total CO2 25.5 24.7 (22-28) mmol.L ABG O2 Saturation 97.7 97.8 (95-98) % ABG O2 Content 12.0 L (15-23) ML/dl ABG Base Excess -3.6 L -4.6 L (-2.0-3.0) mmol/L ABG Hemoglobin 8.9 L (11.7-17.4) g/dL ABG Carboxyhemoglobin 1.8 H (0.5-1.5) % POC ABG HHb (Measured) 2.1 (0-5) % ABG Methemoglobin 0.9 (0.0-3.0) % ABG O2 Capacity 12.3 L (16-24) mL/dl ABG Potassium 3.7 (3.6-5.2) mmol/L Hgb O2 Saturation 95.2 (95.0-98.0) % Sodium 142.0 (132-148) mmol/L Chloride 116.0 H (98-107) mmol/L Glucose 129 H (65-105) mg/dl Lactate 0.6 L (0.7-2.1) mmol/L FiO2 35.0 32.0 % Inspiratory BiPAP Potassium (3.6-5.0) mmol/L Carbon Dioxide (21-33) mmol/L Anion Gap (10-20) BUN (7-21) mg/dL Creatinine (0.7-1.2) mg/dl Est GFR ( Amer) Est GFR (Non-Af Amer) Random Glucose (70-110) mg/dL Hemoglobin A1c (4.2-6.5) % Calcium (8.4-10.5) mg/dL Phosphorus (2.5-4.5) mg/dL Magnesium (1.7-2.2) mg/dL Total Bilirubin (0.2-1.3) mg/dL AST (14-36) U/L ALT (7-56) U/L Alkaline Phosphatase (38-126) U/L Total Protein (5.8-8.3) g/dL Albumin (3.0-4.8) g/dL Globulin gm/dL Albumin/Globulin Ratio (1.1-1.8) Triglycerides (35-160) mg/dL Cholesterol (130-200) mg/dL LDL Cholesterol Direct (0-129) mg/dL HDL Cholesterol (29-60) mg/dL Procalcitonin (0.19-0.49) NG/ML TSH 3rd Generation 0.25 L (0.46-4.68) mIU/mL Arterial Blood Potassium 3.7 (3.6-5.2) mmol/L 02/08/18 02/08/18 Range/Units 16:16 12:15 WBC (4.5-11.0) 10^3/ul RBC (3.5-6.1) 10^6/uL Hgb (12.0-16.0) g/dL Hct (36.0-48.0) % MCV (80.0-105.0) fl MCH (25.0-35.0) pg MCHC (31.0-37.0) g/dl RDW (11.5-14.5) % Plt Count (120.0-450.0) 10^3/uL MPV (7.0-11.0) fl Gran % (50.0-68.0) % Lymph % (Auto) (22.0-35.0) % [place] % (Auto) (1.0-6.0) % Eos % (Auto) (1.5-5.0) % Baso % (Auto) (0.0-3.0) % Gran # (1.4-6.5) Lymph # (Auto) (1.2-3.4) [place] # (Auto) (0.1-0.6) Eos # (Auto) (0.0-0.7) Baso # (Auto) (0.0-2.0) K/mm3 pCO2 53 H (35-45) mm/Hg pO2 82.0 (80-100) mm/Hg HCO3 22.7 (21-28) mmol/L ABG pH 7.24 L (7.35-7.45) ABG Total CO2 24.3 (22-28) mmol.L ABG O2 Saturation 98.1 H (95-98) % ABG O2 Content (15-23) ML/dl ABG Base Excess -5.2 L (-2.0-3.0) mmol/L ABG Hemoglobin (11.7-17.4) g/dL ABG Carboxyhemoglobin (0.5-1.5) % POC ABG HHb (Measured) (0-5) % ABG Methemoglobin (0.0-3.0) % ABG O2 Capacity (16-24) mL/dl ABG Potassium 3.7 (3.6-5.2) mmol/L Hgb O2 Saturation (95.0-98.0) % Sodium 142.0 (132-148) mmol/L Chloride 114.0 H (98-107) mmol/L Glucose 146 H (65-105) mg/dl Lactate 1.1 (0.7-2.1) mmol/L FiO2 35.0 % Inspiratory BiPAP 12 Potassium (3.6-5.0) mmol/L Carbon Dioxide (21-33) mmol/L Anion Gap (10-20) BUN (7-21) mg/dL Creatinine (0.7-1.2) mg/dl Est GFR ( Amer) Est GFR (Non-Af Amer) Random Glucose (70-110) mg/dL Hemoglobin A1c (4.2-6.5) % Calcium (8.4-10.5) mg/dL Phosphorus (2.5-4.5) mg/dL Magnesium (1.7-2.2) mg/dL Total Bilirubin (0.2-1.3) mg/dL AST (14-36) U/L ALT (7-56) U/L Alkaline Phosphatase (38-126) U/L Total Protein (5.8-8.3) g/dL Albumin (3.0-4.8) g/dL Globulin gm/dL Albumin/Globulin Ratio (1.1-1.8) Triglycerides (35-160) mg/dL Cholesterol (130-200) mg/dL LDL Cholesterol Direct (0-129) mg/dL HDL Cholesterol (29-60) mg/dL Procalcitonin < 0.05 L (0.19-0.49) NG/ML TSH 3rd Generation (0.46-4.68) mIU/mL Arterial Blood Potassium 3.7 (3.6-5.2) mmol/L Laboratory Results - last 24 hr 02/08/18 02/08/18 02/08/18 12:15 16:16 19:35 WBC RBC Hgb Hct MCV MCH MCHC RDW Plt Count MPV Gran % Lymph % (Auto) [place] % (Auto) Eos % (Auto) Baso % (Auto) Gran # Lymph # (Auto) [place] # (Auto) Eos # (Auto) Baso # (Auto) pCO2 53 H 55 H pO2 82.0 67.0 L HCO3 22.7 23.0 ABG pH 7.24 L 7.23 L ABG Total CO2 24.3 24.7 ABG O2 Saturation 98.1 H 97.8 ABG O2 Content 12.0 L ABG Base Excess -5.2 L -4.6 L ABG Hemoglobin 8.9 L ABG Carboxyhemoglobin 1.8 H POC ABG HHb (Measured) 2.1 ABG Methemoglobin 0.9 ABG O2 Capacity 12.3 L ABG Potassium 3.7 Hgb O2 Saturation 95.2 Sodium 142.0 Chloride 114.0 H Glucose 146 H Lactate 1.1 FiO2 35.0 32.0 Inspiratory BiPAP 12 Potassium Carbon Dioxide Anion Gap BUN Creatinine Est GFR ( Amer) Est GFR (Non-Af Amer) Random Glucose Hemoglobin A1c Calcium Phosphorus Magnesium Total Bilirubin AST ALT Alkaline Phosphatase Total Protein Albumin Globulin Albumin/Globulin Ratio Triglycerides Cholesterol LDL Cholesterol Direct HDL Cholesterol Procalcitonin < 0.05 L TSH 3rd Generation Arterial Blood Potassium 3.7 02/09/18 02/09/18 02/09/18 05:00 06:00 08:00 WBC RBC Hgb Hct MCV MCH MCHC RDW Plt Count MPV Gran % Lymph % (Auto) [place] % (Auto) Eos % (Auto) Baso % (Auto) Gran # Lymph # (Auto) [place] # (Auto) Eos # (Auto) Baso # (Auto) pCO2 52 H pO2 82.0 HCO3 23.9 ABG pH 7.27 L ABG Total CO2 25.5 ABG O2 Saturation 97.7 ABG O2 Content ABG Base Excess -3.6 L ABG Hemoglobin ABG Carboxyhemoglobin POC ABG HHb (Measured) ABG Methemoglobin ABG O2 Capacity ABG Potassium 3.7 Hgb O2 Saturation Sodium 142.0 144 Chloride 116.0 H 114 H Glucose 129 H Lactate 0.6 L FiO2 35.0 Inspiratory BiPAP Potassium 3.9 Carbon Dioxide 23 Anion Gap 12 BUN 34 H Creatinine 0.9 Est GFR ( Amer) > 60 Est GFR (Non-Af Amer) > 60 Random Glucose 125 H Hemoglobin A1c Calcium 8.4 Phosphorus 3.7 Magnesium 2.0 Total Bilirubin < 0.1 L AST 49 H ALT 33 Alkaline Phosphatase 44 Total Protein 6.4 Albumin 2.6 L Globulin 3.8 Albumin/Globulin Ratio 0.7 L Triglycerides 197 H Cholesterol 104 L LDL Cholesterol Direct 33 HDL Cholesterol 30 Procalcitonin TSH 3rd Generation 0.25 L Arterial Blood Potassium 3.7 02/09/18 02/09/18 08:00 08:00 WBC 2.0 L* RBC 3.72 Hgb 9.5 L Hct 30.3 L MCV 81.5 MCH 25.5 MCHC 31.4 RDW 16.7 H Plt Count 63 L MPV 9.5 Gran % 77.0 H Lymph % (Auto) 14.8 L [place] % (Auto) 8.2 H Eos % (Auto) 0.0 L Baso % (Auto) 0.0 Gran # 1.51 Lymph # (Auto) 0.3 L [place] # (Auto) 0.2 Eos # (Auto) 0.0 Baso # (Auto) 0.00 pCO2 pO2 HCO3 ABG pH ABG Total CO2 ABG O2 Saturation ABG O2 Content ABG Base Excess ABG Hemoglobin ABG Carboxyhemoglobin POC ABG HHb (Measured) ABG Methemoglobin ABG O2 Capacity ABG Potassium Hgb O2 Saturation Sodium Chloride Glucose Lactate FiO2 Inspiratory BiPAP Potassium Carbon Dioxide Anion Gap BUN Creatinine Est GFR ( Amer) Est GFR (Non-Af Amer) Random Glucose Hemoglobin A1c 6.0 Calcium Phosphorus Magnesium Total Bilirubin AST ALT Alkaline Phosphatase Total Protein Albumin Globulin Albumin/Globulin Ratio Triglycerides Cholesterol LDL Cholesterol Direct HDL Cholesterol Procalcitonin TSH 3rd Generation Arterial Blood Potassium Critical Care Progress Note - Nutrition Nutrition: Nutrition Category Date Time Status Heart Healthy Diet [DIET] Diets 02/08/18 Breakfast Ordered Attending/Attestation - Attestation I have personally seen and examined this patient.: Yes I have fully participated in the care of the patient.: Yes I have reviewed all pertinent clinical information: Yes Notes (Text): 02/09/18 15:44 37 yo female recovering from hypercapnic RF due to copd/cap in the setting RV failure: dobutamine drip, abx, steroids taper, bronchodilators, cutting down on methadone, BPAP at night. ok to downgrade to tele ccm time 40 min
--- NOTE | 2018-02-09 14:40 | PN ---
DATE: REASON FOR CONSULTATION AND FOLLOWUP: Shortness of breath, , hypoxemia, transferred from to ICU for cardiac evaluation. SUBJECTIVE: The patient denies any chest pain, shortness of breath, or palpitation. Much awake and alert. Hemodynamically stable, on room air. PHYSICAL EXAMINATION: VITAL SIGNS: Temperature afebrile, heart rate 79, blood pressure . HEENT: PERRLA, intact. NECK: Supple. No carotid bruit, no thyromegaly. CHEST: Clear to auscultation. HEART: S1 and S2, regular. ABDOMEN: Soft. EXTREMITIES: Clubbing and cyanosis negative. LABORATORY DATA: Blood workup as follows: WBC 2, hemoglobin 9.2, hematocrit 30.3, platelet count 63. Chemistry shows sodium 140, potassium 3.9, chloride 114, carbon dioxide 23, anion gap 12. BUN 34, creatinine 0.9. The patient had echocardiography done yesterday that shows LV size and thickness normal, systolic function is borderline, right ventricle is moderately dilated, RV systolic function is moderately reduced, mild tricuspid regurgitation, mild pulmonary hypertension with RV systolic pressure of 45, calculated ejection fraction 50%. IMPRESSION: Human immunodeficiency virus and acquired immunodeficiency syndrome, chronic obstructive pulmonary disease, active tobacco abuse, pancytopenic, rule out neutropenic sepsis, rule out acquired immunodeficiency syndrome related pulmonary disease, tachycardia multifactorial and completely resolved now, anemia, shortness of breath, preserved left ventricular function, mild pulmonary hypertension, right ventricle dilated probably secondary to human immunodeficiency virus related pulmonary disease because V/Q scan is negative for low probability for pulmonary embolism. RECOMMENDATION: Discontinue Dobutrex. Agree to transfer to telemetry. Continue antibiotic as per ID for HIV related disease. We will follow. We will hold DVT prophylaxis because the patient's low platelets and pancytopenic for increased risk of bleeding. The patient has also protein-calorie malnutrition moderate, this is not present on admission. Admitting albumin was 3.2, today is 2.6, increased nutritional support. We will follow with you. CVS status relatively stable. Cara Veliz MD
--- NOTE | 2018-02-09 15:29 | HP ---
CHIEF COMPLAINT: A 37-year-old female, came in to the hospital with dyspnea, cough. HISTORY OF PRESENT ILLNESS: This is an HIV patient, has been on medications as outpatient with history of recurrent pneumonia. She also has history of being on methadone for drug abuse in the past. The patient came in to the hospital with short of breath, cough and wheezing. Denied any fever, chills, but she does feel sick, weak and cannot stay home. There is no nausea, vomiting, diarrhea. There is no other complaint. She just feels weak. 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 She has AIDS. She has been on methadone for drug abuse. She has recurrent pneumonia. She has been on HIV medication as outpatient. She is taking Mepron 750 b.i.d., otherwise stable. ALLERGIES: SHE IS ALLERGIC TO LEVAQUIN, PENICILLIN, AZITHROMYCIN, FLEXERIL. FAMILY HISTORY: Noncontributory. REVIEW OF SYSTEMS: As in the present illness. She is skinny. Appetite is not good. She also sometimes gets dyspnea on and off and back pain and neck pain. PHYSICAL EXAMINATION: VITAL SIGNS: Temperature 98; heart rate 72; blood pressure in the 80s, 85s, 90s; respirations 14; saturating 94% on 3 L. HEAD AND NECK: Normal. No JVD. No thyromegaly. CHEST: Bilateral wheeze improved and diminished breath sounds. CARDIAC: First sound and second sound normal. ABDOMEN: Soft, nontender. EXTREMITIES: No edema. NEUROLOGIC: Alert, awake, oriented x3, but generally weak. LABORATORY STUDIES: Her white count 2.9, hemoglobin 10.1, hematocrit 30.7, platelets 84. Sodium 141, potassium 3.8, chloride 111, bicarb 24, BUN 36, creatinine 1.4 and blood sugar 146, calcium 7.5. Troponin is negative. AST 47. ALT and alkaline phos are normal. Procalcitonin 0.05. The patient also had a chest x-ray, which shows lungs well inflated and clear. There is mild pulmonary venous congestion. The patient also had venous scan for pulmonary embolism, which was low probability. The patient also has venous Doppler of both lower extremity, which was negative for DVT. The patient also had electrocardiogram, which shows normal sinus rhythm. There are ST-T wave changes, consider ischemia. IMPRESSION AND PLAN: This is a 37-year-old female, came in with respiratory distress. Initial impression was chronic obstructive pulmonary disease, pneumonia. She does have a history of recurrent pneumonia. We will admit the patient. We will do blood culture, urine cultures. We will give her IV antibiotics. She got Zithromax in the ER; however, she got some reaction, we stopped it. She got 1 dose of Rocephin and while overnight she had hypotension, blood pressure dropped to 75. The patient was given IV fluid boluses, pressure went up to 90s. The patient does have low blood pressure in the 90s. Manager Night has been called to evaluate the patient and she was admitted to ICU. ADMITTING DIAGNOSES: 1. Acute respiratory distress, possible chronic obstructive pulmonary disease exacerbation pneumonia and also congestive heart failure was seen on a repeat chest x-ray. We will get Cardiology consult, Dr. Veliz; Pulmonary consult, Dr. Barajas; control center operator consultations for evaluations; Infectious Disease consult with Dr. Chou for underlying human immunodeficiency virus as well as pneumonia. 2. Low blood pressure, continue IV fluid. We will monitor her ICU. Echocardiography will help evaluate the cardiac conditions. Although, the patient runs blood pressure in the 95 that is most of her time. 3. The patient has addiction to narcotics in the past. Continue methadone as she has been taken it. 4. We will give the patient Solu-Medrol 40 IV every 12 and we will follow up clinically. Macario Carter MD
--- NOTE | 2018-02-09 19:04 | PN ---
DATE: 02/09/2018 PULMONARY PROGRESS NOTE REFERRING PHYSICIAN: Dr. Carter. SUBJECTIVE: She is much more awake and alert, feels better, still short of breath. She has some cough. No nausea, no vomiting, no diarrhea, no leg pain or leg swelling. OBJECTIVE: GENERAL: In no acute distress. VITAL SIGNS: Temperature is 98, heart rate is 94, respiratory rate 16, blood pressure is 98/50, pulse ox is 95%. HEENT: Small oral cavity. Crowded airway. LUNGS: Has prolonged expiratory phase and wheezing. HEART: S1 and S2. ABDOMEN: Soft, nontender, no organomegaly. EXTREMITIES: No edema. NEUROLOGICAL: Awake, alert, follow simple commands. MEDICATIONS: She is on clindamycin 900 mg every 8 hours, doxycycline 100 mg twice a day, DuoNeb every 2 hours p.r.n. and every 6 hours round the clock, heparin 5000 units subcu every 12 hours, meropenem 1 g IV every 12 hours, methadone 150 mg daily, primaquine 26.3 mg daily, Protonix 40 mg daily, Solu-Medrol 40 mg every 12 hours. LABORATORY DATA: Shows hemoglobin 9.5, hematocrit 30.3, WBC 2.0, platelets 63. Blood gas show pH 7.27, pCO2 is 52, O2 is 82. This is on supplemental oxygen. Sodium 144, potassium 3.9, chloride 114, bicarbonate 23, BUN 34, creatinine 0.9, glucose 125. Hemoglobin A1c 6.0, calcium is 8.4, magnesium 2.0, AST 49, ALT 33, alkaline phosphatase is 44,albumin 2.6, TSH 0.25. Microbiology: Blood cultures and urine cultures, there is no growth. IMPRESSION AND PLAN: Respiratory failure with carbon dioxide retention and hypoxemia, requiring noninvasive ventilation, antibiotics, now much better, has history of substance abuse, methadone dependant. Pulmonary point of view, doing much better, continue IV and inhaled bronchodilator, antibiotics, gastric prophylaxis, deep venous thrombosis prophylaxis, careful with sedation, follow up labs in the morning. Thank you and we will follow with you. Cara Barajas MD
--- NOTE | 2018-02-09 23:02 | PN ---
DATE: 02/09/2018 SUBJECTIVE: The patient seen early this morning in 128, bed 4. The patient is in bed with mild shortness of breath. She states that she has occasional headache, occasional blurry vision, shortness of breath. No nausea or vomiting. PHYSICAL EXAMINATION: VITAL SIGNS: Temperature is 98, blood pressure is 96/60, respiratory rate of 21, heart rate of 91. HEENT: Examination of HEENT is unremarkable. NECK: Supple. LUNGS: Have decreased breath sounds. HEART: Normal S1 and S2. ABDOMEN: Soft and nontender. LABORATORY DATA: Laboratory examination reveals white count of 2.9, hemoglobin of 10, platelets of 84. Coagulation is noted. Chemistries reveal a BUN of 34 and creatinine of 0.9. The patient's procalcitonin is less than 0.05 x2, and the patient's LDH is normal, which is 549, which speaks against PCP. Urinalysis is noted. The nasal MRSA screen is not detected. The urine culture is negative. Blood cultures are negative. CMV PCR is pending, Cryptococcus is pending, and 1 - 3 [id number] is pending. Urine for Legionella is also pending. MEDICATIONS: The patient is on doxycycline, clindamycin, meropenem, and Solu-Medrol. ASSESSMENT AND PLAN: This is a 37-year-old female with end-stage acquired immunodeficiency syndrome with low T-cells of less than 20, end-stage chronic obstructive lung disease, chronic back pain, history of intervenous drug abuser, hepatitis C, and asthma, noncompliant to her HIV medications. Now, presenting with severe sepsis with bilateral interstitial pneumonia, normal LDH, speaks against PCP. CMV is also concerned versus Cryptococcus, awaiting for a CMV PCR and cryptococcal antigen. Continue her present course with check on the 1, 3 beta-glucan level. We will make further recommendations. Cheikh Chou MD
[2018-02-10] MEDS: Albuterol-Ipratrop 3 mg / 0.5 (3 ml) UD IH SCH ×4 (02:05→21:00)
[2018-02-10] MEDS: Pantoprazole 40 mg EC Tab PO SCH (07:53)
[2018-02-10] MEDS: Primaquine 26.3 mg Tab PO SCH (10:18)
[2018-02-10] MEDS: Meropenem IV 1 gm in NS 50 ML IVPB SCH (10:19)
[2018-02-10] MEDS: MethylPREDNISolone 40 mg Vial IVP SCH ×2 (10:19→22:59)
--- NOTE | 2018-02-10 11:15 | PN ---
DATE: 02/09/2018 SUBJECTIVE: The patient right now in the ICU still, stable hemodynamically. Complained of body aches due to not yet getting her appropriate dose of methadone and she usually takes 150; however, blood pressure was low. She was so lethargic and business executive gave her 50. We will increase it to 100 mg and we will follow up clinically on her. Otherwise, she feels better breathing miranda. No other complaints. PHYSICAL EXAMINATION: VITAL SIGNS: Her vital signs on 02/09/2018, temperature 98; heart rate 80; blood pressure in the low 90, 95, 94/55; respiration is 18, saturating 95%. HEAD AND NECK: Normal. No JVD. No thyromegaly. CHEST: There is a few rhonchi bilaterally. More on the left than right. CARDIAC: First sound and second sound normal. ABDOMEN: Soft, nontender. EXTREMITIES: No edema. GENERAL: The patient seems skinny and has muscle wasting. LABORATORY DATA: Her laboratory study shows white count 2, hemoglobin 9.5, hematocrit 30.3, platelets 63. Sodium 144, potassium 3.9, chloride 114, bicarb 23, BUN 34, creatinine 0.9, blood sugar 125. Liver function test is normal. TSH is 0.25 and LDL 104. Triglycerides 197. IMPRESSION AND PLAN: 1. Acute chronic obstructive pulmonary disease exacerbation. Continue inhaled bronchodilators. Continue steroids. We will follow up clinically. 2. Mild to moderate pulmonary hypertension, probably secondary to her underlying chronic obstructive pulmonary disease, although primary hypertension should be considered or human immunodeficiency virus related pulmonary hypertension. Her pulmonary pressure almost like 45 range to 50. Further testing will be done as outpatient. We will discuss with the Pulmonary consults and Cardiology. 3. The patient has cardiac dysfunctions, borderline myocardial dysfunction plus right-sided heart failure. Etiology could be secondary to pulmonary hypertension or human immunodeficiency virus cardiomyopathy. We will consider that. We will discuss with the arch pad cementer. 4. The patient does have addiction problem to opioids in the past. Continue methadone. QT interval within normal range. Continue monitor her mental status. 5. Human immunodeficiency virus. Continue monitor with Dr. Chou. The patient is still getting clindamycin and meropenem for an underlying infections. Continue current therapy and she is also getting doxycycline IV. Continue current therapy. Follow up clinically. Macario Carter MD
--- NOTE | 2018-02-10 20:13 | PN ---
DATE: REASON FOR CONSULTATION: Shortness of breath, hypoxemia, transfer from 3R to ICU for cardiac evaluation. SUBJECTIVE: The patient denies any chest pain, shortness of breath, but feels a lot of pain all over the body and having withdrawal from methadone. OBJECTIVE: GENERAL: Not in apparent distress, but lying on the bed in a position since having withdrawal from methadone. VITAL SIGNS: Temperature afebrile, heart rate 83, blood pressure 103/72. HEENT: PERRLA. Extraocular muscles intact. NECK: Supple. No carotid bruit. No thyromegaly. CHEST: Clear to auscultation. HEART: S1 and S2, regular. ABDOMEN: Soft. EXTREMITIES: Clubbing and cyanosis negative. LABORATORY DATA: Blood workup as follows: WBC 2, hemoglobin 9.5, hematocrit 30.3, platelet count 63. Chemistry shows sodium 144, potassium 3.9, chloride 114, carbon dioxide 23, anion gap of 12. BUN 34, creatinine 0.9. TSH 0.25. IMPRESSION: Methadone withdrawal, human immunodeficiency virus, acquired immune deficiency syndrome, shortness of breath secondary to human immunodeficiency virus related pulmonary disease, chronic obstructive pulmonary disease, active tobacco abuse, ex-drug abuse, neutropenic sepsis, rule out related disorder. Tachycardia, multifactorial, is now improved. The patient had echo done that showed preserved left ventricular function, mild pulmonary hypertension, systolic. Right ventricle dilated, probably secondary to human immunodeficiency virus related pulmonary disease, V/Q scan negative for low probability for pulmonary embolism. RECOMMENDATIONS: Dobutrex was discontinued. Continue broad-spectrum antibiotic as per ID. Continue treatment aggressive for COPD. Continue DVT prophylaxis. Monitor H and H. Monitor platelet count because the patient is on subcu heparin for DVT prophylaxis. Overall, the patient's condition is critical, long-term prognosis is guarded. We will follow with you. We will repeat the blood workup in the morning. Today, lab is not available. Not sure whether the patient refused or was not ordered. We will order for tomorrow. Thank you, Dr. Carter for providing us the opportunity in taking care of the patient, Veronica Riuz. Cara Veliz MD
[2018-02-11] MEDS: Albuterol-Ipratrop 3 mg / 0.5 (3 ml) UD IH SCH ×4 (02:33→20:22)
[2018-02-11 02:55] LABS: SOURCE: BLOOD
--- NOTE | 2018-02-11 05:27 | PN ---
DATE: PULMONARY PROGRESS NOTE REFERRING PHYSICIAN: Macario Carter MD SUBJECTIVE: Sitting in the bed, still cough and shortness of breath. No nausea, no vomiting, no diarrhea. No leg pain or leg swelling. OBJECTIVE GENERAL: In no acute distress. VITAL SIGNS: Temperature is 98, heart rate is 83, respiratory rate is 28, blood pressure 98/71, pulse ox 90% on nasal cannula. HEENT: Moist mucous membrane. Small oral cavity. NECK: Supple. No JVD. LUNGS: Have a diffuse bilateral wheezing. HEART: S1 and S2. ABDOMEN: Soft, nontender. No organomegaly. EXTREMITIES: No edema. NEUROLOGIC: Awake, alert, follows simple command. MEDICATIONS: She is on clindamycin 900 mg every 8 hours, doxycycline 100 mg twice a day, DuoNeb every 2 hours p.r.n. and every 6 hours [id number], heparin 5000 units subcutaneously every 12 hours, methadone 150 mg daily, Primacor daily, Protonix 40 mg daily, Solu-Medrol 40 mg twice a day. LABORATORY DATA: Reviewed and noted, no new lab report since yesterday. Microbiology, blood culture, urine culture, sputum is unremarkable. IMPRESSION AND PLAN: Chronic obstructive lung disease, has acquired immunodeficiency syndrome, history of substance abuse, methadone dependent. Pulmonary point of view, slowly improving. Continue antibiotics, IV and inhaled bronchodilator, gastric prophylaxis, sequential compression device to lower extremity. Followup labs in the morning. Thank you and we will follow with you. Cara Barajas MD
[2018-02-11] MEDS: Pantoprazole 40 mg EC Tab PO SCH (06:30)
--- NOTE | 2018-02-11 07:03 | PN ---
DATE: 02/10/2018 SUBJECTIVE: Patient was seen earlier this morning in 128, bed 4. No fevers and no chills. She is still short of breath. OBJECTIVE: VITAL SIGNS: Temperature is 98, blood pressure is 100/60, respiratory rate of 24, heart rate of 96. HEENT: Unremarkable. NECK: Supple. LUNGS: Have decreased breath sounds. HEART: Normal S1 and S2. ABDOMEN: Soft and nontender. LABORATORY EXAMINATION: Reveals the patient has a white count of 2, hemoglobin of 9, platelets of 63. Chemistries reveal a BUN of 34, creatinine of 0.9. Patient had a procalcitonin of less than 0.05 x2 and urinalysis is noted. Serologies: Cryptococcal antigen is negative, urine for Legionella antigen is negative. Microbiology reveals the blood cultures are negative . MRSA screen is negative. The urine culture are negative. The LDH is 549. Dr. Carter's note is reviewed and review of orders reveals the patient to be on clindamycin, doxycycline, and patient's 1, 3 [id number] assay is pending. CMV PCR is pending. Patient is also on meropenem and the patient is also on Solu-Medrol and primaquine. ASSESSMENT AND PLAN: This is a 37-year-old female with end-stage acquired immunodeficiency syndrome with very low T-cells of less than 20, with 1% T-cell, end-stage chronic obstructive lung disease, end-stage pulmonary fibrosis, with also moderate pulmonary hypertension, presenting with shortness of breath and interstitial findings on the x-ray with respiratory failure and carbon dioxide retention and hypoxemia, requiring noninvasive ventilation. PCP is less likely with normal LDH and patient has a negative cryptococcal antigen, makes croup less likely. CMV PCR is pending. Patient does have some blurred vision; CMV may do that. Currently, patient's procalcitonin is negative x2; all the cultures are negative. We will change the doxycycline to p.o. Continue the clindamycin and Primaquine and discontinue the meropenem as all the cultures are negative and repeat an LDH. If the repeat LDH is negative and is negative, we will also discontinue the PCP therapy and we will follow up closely with you. Overall prognosis is quite poor for this patient who has end-stage acquired immune deficiency syndrome and noncompliant. We will also repeat a procalcitonin. On clindamycin, p.o. doxycycline, and p.o. primaquine. Patient is also on Solu-Medrol. Cheikh Chou MD
[2018-02-11 07:09] LABS: GRAN # 1.36 (1.4-6.5); GRAN % 73.1 % (50.0-68.0); LYMPH # 0.4 (1.2-3.4); LYMPH % 19.9 % (22.0-35.0); MEAN CORPUSCULAR HEMOGLOBIN 25.3 pg (25.0-35.0); MEAN CORPUSCULAR HGB CONC 30.9 g/dl (31.0-37.0); MEAN PLATELET VOLUME 9.5 fl (7.0-11.0); MONO # 0.1 (0.1-0.6); RBC 3.95 10^6/uL (3.5-6.1)
[2018-02-11 07:30] LABS: ALB/GLOB RATIO 0.7 (1.1-1.8); ALBUMIN 2.9 g/dL (3.0-4.8); ALT/SGPT 27 U/L (7-56); AST/SGOT 38 U/L (14-36); BLOOD UREA NITROGEN 30 mg/dL (7-21); GFR AFRICAN-AMERICAN > 60; GFR NON-AFRICAN AMERICAN > 60
[2018-02-11 07:40] LABS: WHITE BLOOD COUNT 1.9 10^3/ul (4.5-11.0)
[2018-02-11] MEDS ORDERED: Sod Polystyrene Sulf 15 gm/60 ml Susp PO ONE (09:09)
[2018-02-11] MEDS: MethylPREDNISolone 40 mg Vial IVP SCH ×2 (09:38→21:58)
[2018-02-11] MEDS: Primaquine 26.3 mg Tab PO SCH (09:38)
[2018-02-11 14:12] LABS: GRAN # 1.47 (1.4-6.5); GRAN % 77.4 % (50.0-68.0); HEMOGLOBIN 10.4 g/dL (12.0-16.0); LYMPH # 0.3 (1.2-3.4); LYMPH % 15.8 % (22.0-35.0); MEAN CELL VOLUME 82.5 fl (80.0-105.0); MEAN CORPUSCULAR HEMOGLOBIN 26.1 pg (25.0-35.0); MEAN CORPUSCULAR HGB CONC 31.6 g/dl (31.0-37.0); MEAN PLATELET VOLUME 9.6 fl (7.0-11.0); MONO # 0.1 (0.1-0.6); MONO % 6.8 % (1.0-6.0); RBC 3.99 10^6/uL (3.5-6.1); RED CELL DISTRIBUTION WIDTH 17.1 % (11.5-14.5)
[2018-02-11 14:15] LABS: WHITE BLOOD COUNT 1.9 10^3/ul (4.5-11.0)
--- NOTE | 2018-02-11 14:51 | PN ---
DATE: REASON FOR CONSULTATION AND FOLLOWUP: Shortness of breath, hypoxemia, HIV positive, on methadone, possibly HIV-related pneumonia. SUBJECTIVE: Patient feels better, but still feels withdrawal, whole body aches. No shortness of breath. No palpitations. PHYSICAL EXAMINATION GENERAL: Not in apparent distress. VITAL SIGNS: Temperature afebrile, heart rate 58, blood pressure 112/66. HEENT: PERRLA. Extraocular muscles intact. NECK: Supple. No carotid bruit. No thyromegaly. CHEST: Clear to auscultation. HEART: S1 and S2, regular. ABDOMEN: Soft. EXTREMITIES: Clubbing and cyanosis negative. LABORATORY DATA: Blood workup as follows: WBC 1.9, hemoglobin 10, hematocrit 32.4, platelet count 84. Chemistry shows sodium 142, potassium 5.5, chloride 101, carbon dioxide 26, anion gap of 11, BUN 30, creatinine 0.8, AST 42, ALT 27, total protein 6.2, albumin 2.9. IMPRESSION: Protein-calorie malnutrition, mild, which was not present on admission, improving; hyperkalemia; pancytopenia; neutropenia; thrombocytopenia, human immunodeficiency virus-related pneumonia, shortness of breath, possible human immunodeficiency virus related pulmonary disease. Patient had repeat echo done 02/08/2018 that shows left ventricular function is borderline, calculated ejection fraction 50%. Right ventricle systolic pressure 35%. Right ventricular moderately dilated function moderately reduced, mild tricuspid regurgitation. RECOMMENDATIONS: We will give Kayexalate because the patient is hyperkalemic. Continue DVT prophylaxis. Continue methadone. Continue antibiotics as per ID. CVS status is stable. We will follow with you. Okay to transfer from Cardiology point of view. Respiratory status is stable. Patient can be transferred out of the unit. Thank you, Dr. Carter, for providing us the opportunity in taking care of the patient, Veronica Ruiz. Cara Veliz MD
--- NOTE | 2018-02-11 15:03 | PN ---
DATE: 02/10/2018 SUBJECTIVE: The patient is still in ICU, no bed available. She is stable. She is feeling better, less short of breath. No chest pain. Afebrile. No nausea. No vomiting. PHYSICAL EXAMINATION: VITAL SIGNS: On 02/10/2018, temperature 98, heart rate 70, blood pressure is 100/61, respirations 22, saturation 95% on nasal canula of 2 L. HEAD AND NECK: Normal. No JVD. No thyromegaly. CHEST: Bilateral rhonchi, mainly on the left base more than right. CARDIAC: First sound and second sound are normal. ABDOMEN: Soft, nontender. EXTREMITIES: No edema. NEUROLOGIC: Normal. LABORATORY DATA: White count 2, hemoglobin 9.5, hematocrit 30.3, platelets 63. Chemistry: Sodium is 144, potassium 3.9, chloride 114, bicarb 23, BUN 34, creatinine 0.9, blood sugar 125. Liver function test is negative. The patient's triglycerides is 197, LDL is very low at 33, HDL is 30, TSH is 0.25. The patient also had urine culture and blood culture, which were negative. IMPRESSION AND PLAN: 1. Acute chronic obstructive pulmonary disease exacerbations, underlying pneumonia. Continue current IV medication as per ID consult. The patient initially is getting doxycycline, clindamycin, and meropenem. We will continue follow up his recommendations. 2. Chronic obstructive pulmonary disease with acute exacerbation. Continue inhaled and IV bronchodilator. Dr. Barajas consulted on the case. Currently, on Solu-Medrol 40 IV every 12 hours plus nebulizer treatment. 3. Chronic addiction to narcotics. Continue methadone as per previous dose, verified dosage from de-addiction clinic. The patient is stable. Continue methadone 150 mg daily and monitor her mental status. Her EKG is normal with normal QT interval. 4. Human immunodeficiency virus, muscle wasting. Continue follow up with Dr. Chou for that and follow up as an outpatient. 5. Cardiomyopathy, borderline ejection fraction, systolic function plus pulmonary hypertension in the 45 to 50, [id number] pulmonary hypertension, etiology possibly secondary to chronic obstructive pulmonary disease or could be human immunodeficiency virus related or could be pulmonary hypertension at this moment. We will treat underlying chronic obstructive pulmonary disease. We will follow up as outpatient for further treatment and recommendations. Continue current therapy. The patient currently has been on IV dobutamine for her right-sided heart failure. We will discuss with Cardiology and we will see how long she is going to be on that. Clinically, she is improving, stable. Continue gastrointestinal and deep vein thrombosis prophylaxis. 6. The patient does have history of chronic hepatitis C with pancytopenia. We will get Dr. Sullivan to see the patient. Macario Carter MD
--- NOTE | 2018-02-11 17:14 | CP.PCM.CON ---
History of Present Illness - History of Present Illness History of Present Illness: PGY-2 heme/onc consult for Dr. Sullivan 37 year old female, whose past medical history includes HIV, AIDS, COPD, PNA, IV drug abuse initially presented with complaint of shortness of breath, and cough for 4 days. Patient was placed in the ICU for hypercapnic, hypoxemic respiratory failure not requiring intubation. Hematology was consulted for pnaccytopenia. Patient states that she has been on HIV mediation for the last 6 years, and on her current regiment for 2 year. However recently she was no longer able to see her infectious disease doctor and was not on medication for about 1 month. Her CD4 and Viral load is not known. He blood work from June 2017 showed CD4 less then 20. Patient states that she was taking bactrim prophalaxsis but stopped due to reaction of pruritus. Patient has a history of recurrent PNA. She states that she has been told she has low blood count in the past due to her HIV. Patient states that she last about 15lb recently as well. She reports improvement in cough but still has sob. She denies chest pain, headache, fever, chill, n/v, and abd pain since admission. PMH: HIV, AIDS, COPD, PNA, IV drug abuse on methadone PSH: neck surgery for abscess biopsy social history: stopped smoking 1 week ago, light smoker, denies alcohol use, former heroin and cocaine use allergy: levaquin, penicillin, azithromycin, flexeril Review of Systems - Review of Systems All systems: reviewed and no additional remarkable complaints except Past Patient History - Infectious Disease Hx of Infectious Diseases: None - Tetanus Immunizations Tetanus Immunization: Unknown - Past Social History Smoking Status: Former Smoker - CARDIAC Hx Cardiac Disorders: No - PULMONARY Hx Respiratory Disorders: Yes (has nebulizer machine at home) Hx Asthma: Yes Hx Bronchitis: Yes Hx Chronic Obstructive Pulmonary Disease (COPD): Yes Hx Pneumonia: Yes - NEUROLOGICAL Hx Neurological Disorder: Yes Hx Migraine: Yes - HEENT Hx HEENT Problems: Yes Hx Macular Degeneration: Yes - RENAL Hx Chronic Kidney Disease: No - ENDOCRINE/METABOLIC Hx Endocrine Disorders: No - HEMATOLOGICAL/ONCOLOGICAL Hx Blood Disorders: Yes (blood transfusion) Hx AIDS: Yes Hx Hepatitis C: Yes (IVDU) Hx Human Immunodeficiency Virus (HIV): Yes - INTEGUMENTARY Hx Dermatological Problems: Yes - MUSCULOSKELETAL/RHEUMATOLOGICAL Hx Musculoskeletal Disorders: Yes Hx Back Pain: Yes Hx Falls: No Other/Comment: SCOLIOSIS - GASTROINTESTINAL Hx Gastrointestinal Disorders: No - GENITOURINARY/GYNECOLOGICAL Hx Genitourinary Disorders: Yes Hx Urinary Tract Infection: Yes - PSYCHIATRIC Hx Psychophysiologic Disorder: Yes Hx Anxiety: Yes Other/Comment: hx ivdu/cocaine stopped 6 yrs ago on methadone program, smokes 1 ppd has not smoked in 4 days - SURGICAL HISTORY Hx Surgeries: Yes Other/Comment: right anterior neck SX for abcesses bx neg - ANESTHESIA Hx Anesthesia: Yes Hx Anesthesia Reactions: No Hx Malignant Hyperthermia: No Meds Allergies/Adverse Reactions: Allergies Allergy/AdvReac Type Severity Reaction Status Date / Time levofloxacin [From Levaquin] Allergy RASH Verified 02/07/18 18:46 Penicillins Allergy RASH Verified 02/07/18 18:46 azithromycin [From Zithromax] AdvReac RASH Verified 02/08/18 07:55 flexeril AdvReac RASH Uncoded 02/07/18 18:46 - Medications Medications: Current Medications Albuterol/Ipratropium (Duoneb 3 Mg/0.5 Mg (3 Ml) Ud) 3 ml IH [id number] [facility] Last Admin: 02/11/18 15:51 Dose: 3 ml Albuterol/Ipratropium (Duoneb 3 Mg/0.5 Mg (3 Ml) Ud) 3 ml IH Q2H PRN PRN Reason: Shortness of Breath Last Admin: 02/08/18 06:10 Dose: 3 ml Doxycycline Hyclate (Doryx) 100 mg PO Q12 [facility] PRN Reason: Protocol Stop: 02/19/18 22:01 Last Admin: 02/11/18 09:38 Dose: 100 mg Heparin Sodium (Porcine) (Heparin) 5,000 units SC Q12 [facility] PRN Reason: Protocol Last Admin: 02/11/18 09:37 Dose: 5,000 units Clindamycin Phosphate 900 mg/ (Sodium Chloride) 106 mls @ 106 mls/hr IVPB Q8 [facility] PRN Reason: Protocol Stop: 02/22/18 14:01 Last Admin: 02/11/18 13:13 Dose: 106 mls/hr Methadone HCl (Methadone) 150 mg PO DAILY [facility] Last Admin: 02/11/18 09:34 Dose: 150 mg Methylprednisolone (Solu-Medrol) 40 mg IVP Q12 [facility] Last Admin: 02/11/18 09:38 Dose: 40 mg Pantoprazole Sodium (Protonix Ec Tab) 40 mg PO ACB [facility] Last Admin: 02/11/18 06:30 Dose: 40 mg Primaquine Phosphate (Primaquine) 26.3 mg PO DAILY [facility] PRN Reason: Protocol Stop: 02/17/18 12:02 Last Admin: 02/11/18 09:38 Dose: 26.3 mg Physical Exam - Constitutional Appears: No Acute Distress, Chronically Ill - Head Exam Head Exam: ATRAUMATIC, NORMOCEPHALIC - Eye Exam Eye Exam: EOMI, Normal appearance - ENT Exam ENT Exam: Mucous Membranes Moist - Respiratory Exam Respiratory Exam: Rhonchi, Wheezes, NORMAL BREATHING PATTERN. absent: Respiratory Distress - Cardiovascular Exam Cardiovascular Exam: REGULAR RHYTHM, +S1, +S2. absent: Bradycardia, Tachycardia , Diastolic murmur, Systolic Murmur - GI/Abdominal Exam GI & Abdominal Exam: Normal Bowel Sounds, Soft. absent: Distended, Firm, Tenderness - Extremities Exam Extremities exam: Positive for: normal inspection. Negative for: pedal edema, tenderness - Neurological Exam Neurological exam: Alert, Oriented x3 - Skin Skin Exam: Dry, Intact, Normal Color, Warm Results - Vital Signs Recent Vital Signs: Last Vital Signs Temp 97.7 F 02/11/18 12:00 Pulse 96 H 02/11/18 16:45 Resp 36 H 02/11/18 16:45 BP 108/75 02/11/18 16:00 Pulse Ox 92 L 02/11/18 16:45 - Labs Result Diagrams: 02/11/18 13:35 02/11/18 05:30 Labs: Laboratory Results - last 24 hr 02/08/18 02/09/18 02/11/18 12:15 06:00 05:30 WBC RBC Hgb Hct MCV MCH MCHC RDW Plt Count MPV Gran % Lymph % (Auto) [place] % (Auto) Eos % (Auto) Baso % (Auto) Gran # Lymph # (Auto) [place] # (Auto) Eos # (Auto) Baso # (Auto) Sodium 143 Potassium 5.5 H Chloride 111 H Carbon Dioxide 26 Anion Gap 11 BUN 30 H Creatinine 0.8 Est GFR ( Amer) > 60 Est GFR (Non-Af Amer) > 60 Random Glucose 109 Calcium 9.0 Phosphorus 3.1 Magnesium 2.1 Total Bilirubin 0.2 AST 38 H D ALT 27 Alkaline Phosphatase 48 Lactate Dehydrogenase 481 Total Protein 6.8 Albumin 2.9 L Globulin 3.9 Albumin/Globulin Ratio 0.7 L CMV Specimen Source Blood CMV DNA Quant PCR <200 CMV Qnt PCR log IU/mL <2.30 Beta-(1,3)-D-Glucan 46 B-(1,3)-D-Glucan Intrp Negative 02/11/18 02/11/18 05:30 13:35 WBC 1.9 L* 1.9 L* RBC 3.95 3.99 Hgb 10.0 L 10.4 L Hct 32.4 L 32.9 L MCV 82.0 82.5 MCH 25.3 26.1 MCHC 30.9 L 31.6 RDW 17.0 H 17.1 H Plt Count 84 L 97 L MPV 9.5 9.6 Gran % 73.1 H 77.4 H Lymph % (Auto) 19.9 L 15.8 L [place] % (Auto) 7.0 H 6.8 H Eos % (Auto) 0.0 L 0.0 L Baso % (Auto) 0.0 0.0 Gran # 1.36 L 1.47 Lymph # (Auto) 0.4 L 0.3 L [place] # (Auto) 0.1 0.1 Eos # (Auto) 0.0 0.0 Baso # (Auto) 0.00 0.00 Sodium Potassium Chloride Carbon Dioxide Anion Gap BUN Creatinine Est GFR ( Amer) Est GFR (Non-Af Amer) Random Glucose Calcium Phosphorus Magnesium Total Bilirubin AST ALT Alkaline Phosphatase Lactate Dehydrogenase Total Protein Albumin Globulin Albumin/Globulin Ratio CMV Specimen Source CMV DNA Quant PCR CMV Qnt PCR log IU/mL Beta-(1,3)-D-Glucan B-(1,3)-D-Glucan Intrp Assessment & Plan - Assessment and Plan (Free Text) Assessment: 37 year old female, whose past medical history includes HIV, AIDS, COPD, PNA, IV drug abuse initially presented with complaint of shortness of breath, and cough has history of pancytopenia pancytopenia severe copd exacerbation- improved PNA AIDS Plan: pancytopenia most likely related to HIV will start granix will order blood smear if counts do not improve will need bone marrow biopsy to rule out atypical mycobacterium will need to consider PCP, currently on primaquin for empiric treatment consider bronchoscopy with improvement of respiratory status per ID pcp is less likely due to nomral LDH and negative cryptocoocal antigen CMV antigen pending urine legionella, streptococcal antigen pending V/Q scan low probability continue antibiotic doxy, clindamycin ID consulted continue broncodilators continue solu- medrol 40mg q12 Pulm consulted Echo showed preserved EF with right ventricle dilation continue methadone Case reviewed and discussed with Dr. Sullivan
--- NOTE | 2018-02-11 21:18 | PN ---
DATE: 02/11/2018 PULMONARY PROGRESS NOTE REFERRING PHYSICIAN: Macario Carter MD. SUBJECTIVE: Sitting up in a bed in the Intensive Care Unit. Feels a little better. Still has a cough, wheezing, short of breath. No nausea. No vomiting, diarrhea, leg pain, leg swelling. OBJECTIVE: GENERAL: In no acute distress. VITAL SIGNS: Temp is 98, heart rate is 76, respiratory rate is 16, blood pressure 98/69, pulse ox 95% on nasal cannula. HEENT: Moist mucous membranes. Small oral cavity. NECK: Supple. No JVD. LUNGS: Have bilateral wheezing. HEART: S1 and S2. ABDOMEN: Soft, nontender. No organomegaly. EXTREMITIES: There is no edema. NEUROLOGICAL: Awake and alert. Follows simple command. LABORATORY DATA: Shows hemoglobin 10.4, hematocrit 32.9, WBC 1.9, platelet is 97. Sodium 143, potassium 5.4, chloride 111, bicarbonate 26, BUN 30, creatinine 0.8, calcium is 9, phosphorus is 3.1, magnesium 2.1, AST 38, ALT 27, alk phos is 48, LDH is 481, albumin is 2.9, procalcitonin 0.05. MEDICATIONS: She is on clindamycin 900 mg every 8 hours, doxycycline 100 mg twice a day, DuoNeb every 2 hours p.r.n. and every 6 hours round the clock, heparin 5000 units subcu every 12 hours, methadone 150 mg daily, primaquine 26.3 mg daily, Protonix 40 mg daily, Solu-Medrol 40 mg every 12 hours. IMPRESSION AND PLAN: Chronic obstructive lung disease, has acquired immune deficiency syndrome, substance abuse, methadone dependent. Admitted with respiratory failure, much improved. Still has diffuse wheezing. Continue IV and inhaled bronchodilator. Gastric prophylaxis. Antibiotics. Sequential compression device to lower extremity. Being followed by Infectious Diseases. Thank you and we will follow with you. Cara Barajas MD
--- NOTE | 2018-02-11 22:22 | CP.PCM.PN ---
Subjective - Date & Time of Evaluation Date of Evaluation: 02/11/18 Time of Evaluation: 09:20 - Subjective Subjective: Breathing better but still with cough, no fevers. Objective - Vital Signs/Intake and Output Vital Signs (last 24 hours): Temp Pulse Resp BP Pulse Ox 98.3 F 83 28 H 98/71 L 90 L 02/10/18 16:00 02/10/18 18:01 02/10/18 18:01 02/10/18 18:01 02/10/18 18:01 Intake and Output: 02/10/18 02/11/18 18:59 06:59 Intake Total 450 Output Total 250 Balance 200 - Medications Medications: Current Medications Albuterol/Ipratropium (Duoneb 3 Mg/0.5 Mg (3 Ml) Ud) 3 ml IH [id number] [facility] Last Admin: 02/10/18 21:00 Dose: 3 ml Albuterol/Ipratropium (Duoneb 3 Mg/0.5 Mg (3 Ml) Ud) 3 ml IH Q2H PRN PRN Reason: Shortness of Breath Last Admin: 02/08/18 06:10 Dose: 3 ml Doxycycline Hyclate (Doryx) 100 mg PO Q12 [facility] PRN Reason: Protocol Stop: 02/19/18 22:01 Heparin Sodium (Porcine) (Heparin) 5,000 units SC Q12 [facility] PRN Reason: Protocol Last Admin: 02/10/18 10:17 Dose: 5,000 units Clindamycin Phosphate 900 mg/ (Sodium Chloride) 106 mls @ 106 mls/hr IVPB Q8 [facility] PRN Reason: Protocol Stop: 02/22/18 14:01 Last Admin: 02/10/18 14:44 Dose: 106 mls/hr Methadone HCl (Methadone) 150 mg PO DAILY [facility] Last Admin: 02/10/18 10:18 Dose: 150 mg Methylprednisolone (Solu-Medrol) 40 mg IVP Q12 [facility] Last Admin: 02/10/18 10:19 Dose: 40 mg Pantoprazole Sodium (Protonix Ec Tab) 40 mg PO ACB [facility] Last Admin: 02/10/18 07:53 Dose: 40 mg Primaquine Phosphate (Primaquine) 26.3 mg PO DAILY [facility] PRN Reason: Protocol Stop: 02/17/18 12:02 Last Admin: 04/19/18 10:18 Dose: 26.3 mg - Labs Labs: 02/09/18 08:00 02/09/18 08:00 PT 10.6 SECONDS (9.4-12.5) 02/07/18 20:50 INR 0.93 (0.93-1.08) 02/07/18 20:50 APTT 37.9 Seconds (25.1-36.5) H 02/07/18 20:50 - Constitutional Appears: Cachectic, Chronically Ill - Head Exam Head Exam: NORMAL INSPECTION - Neck Exam Neck Exam: absent: Meningismus - Respiratory Exam Respiratory Exam: Decreased Breath Sounds - Cardiovascular Exam Cardiovascular Exam: +S1, +S2 - GI/Abdominal Exam GI & Abdominal Exam: Soft. absent: Tenderness Assessment and Plan - Assessment and Plan (Free Text) Plan: Assessment severe sepsis with bilateral interstitial pneumonia, R/O pneumocystis pneumonia R/O atypical pneumonia HIV/AIDS with last CD4 count <20, non-compliant with her meds COPD chronic back pain history of IVDA hepatitis C infection Plan continue Clindamycin, Primaquine and Doxycycline follow up beta glucan; CMV PCR is negative Will continue to monitor clinically
[2018-02-12] MEDS: Albuterol-Ipratrop 3 mg / 0.5 (3 ml) UD IH SCH ×4 (03:32→20:00)
[2018-02-12 05:48] LABS: EOS % 0.1 % (1.5-5.0); GRAN # 9.53 (1.4-6.5); GRAN % 86.2 % (50.0-68.0); HEMOGLOBIN 10.5 g/dL (12.0-16.0); LYMPH # 0.9 (1.2-3.4); LYMPH % 8.3 % (22.0-35.0); MEAN CELL VOLUME 82.9 fl (80.0-105.0); MEAN CORPUSCULAR HEMOGLOBIN 25.6 pg (25.0-35.0); MEAN CORPUSCULAR HGB CONC 30.9 g/dl (31.0-37.0); MEAN PLATELET VOLUME 9.4 fl (7.0-11.0); MONO # 0.6 (0.1-0.6); MONO % 5.4 % (1.0-6.0); RBC 4.1 10^6/uL (3.5-6.1); WHITE BLOOD COUNT 11.1 10^3/ul (4.5-11.0)
[2018-02-12 06:01] LABS: ALB/GLOB RATIO 0.7 (1.1-1.8); ALBUMIN 2.9 g/dL (3.0-4.8); ALT/SGPT 30 U/L (7-56); AST/SGOT 50 U/L (14-36); BLOOD UREA NITROGEN 30 mg/dL (7-21); CALCIUM 9.1 mg/dL (8.4-10.5); GFR AFRICAN-AMERICAN > 60; GFR NON-AFRICAN AMERICAN > 60
[2018-02-12] MEDS: Pantoprazole 40 mg EC Tab PO SCH (08:08)
--- NOTE | 2018-02-12 08:33 | PN ---
DATE: 02/12/2018 SUBJECTIVE: The patient is seen in bed early this morning in the ICU, comfortable, still short of breath. No fevers. PHYSICAL EXAMINATION: VITAL SIGNS: Temperature is 98, blood pressure is 112/60, respiratory rate of 16 is up to 21, heart rate of 69. HEENT: Examination of HEENT is unremarkable. NECK: Supple. LUNGS: Have decreased breath sounds. HEART: Normal S1, S2. ABDOMEN: Soft, nontender. LABORATORY DATA: Laboratory examination reveals a white count 11,100, hemoglobin of 10, platelets of 97. Coagulation is noted and chemistries reveals a BUN of 30, creatinine of 0.9. Procalcitonin is less than 0.05. The urinalysis is noted and the CMV PCR is negative. Cryptococcal antigen is negative. Urine for Legionella antigen is negative. The Strep pneumoniae antigen is negative. The yaob-6-7-D-glucan is less than 31 and is interpreted as negative and the range is less than 60 and is repeated and it is negative again. The patient's LDH repeat one is still negative at 481. Microbiology reveals the nares MRSA screen is negative. The blood cultures are negative. Urine cultures are negative. Review of orders reveals the patient to be on clindamycin, doxycycline and steroids and Primaquine. ASSESSMENT AND PLAN: A 37-year-old female with end-stage acquired immune deficiency syndrome and with severe sepsis and bilateral interstitial pneumonia. I doubt Pneumocystis carinii pneumonia with two negative LDHs and two negative [id number]-glucan. Atypical pneumonia is a possibility. All cultures are negative in a patient with pulmonary fibrosis and chronic obstructive lung disease, history of intravenous drug abuse, history of hepatitis C. We will discontinue the clindamycin and Primaquine and continue with p.o. doxycycline. The patient also had a procalcitonin x3, which were all negative. We will follow with you. Cheikh Chou MD
[2018-02-12] MEDS: MethylPREDNISolone 40 mg Vial IVP SCH ×2 (09:07→21:43)
--- NOTE | 2018-02-12 20:17 | PN ---
DATE: 02/12/2018 PULMONARY PROGRESS NOTE REFERRING PHYSICIAN: Dr. Carter. SUBJECTIVE: Patient is out of bed to chair. Night was unremarkable. Feels short of breath, cough, wheezing. No nausea, no vomiting, no diarrhea. No leg pain, no leg swelling. OBJECTIVE: GENERAL: In no acute distress. VITAL SIGNS: Temperature is 98, heart rate is 71, respiratory rate is 20, blood pressure is 95/52, pulse ox is 97% on nasal cannula. HEENT: Moist mucous membranes. Crowded airway. NECK: Supple. No JVD. LUNGS: Have bilateral wheezing and prolonged expiratory phase. HEART: S1 and S2. ABDOMEN: Soft, nontender. No organomegaly. EXTREMITIES: There is no edema. NEUROLOGICAL: Awake and alert. Follows simple command. MEDICATIONS: She is on doxycycline 100 mg twice a day, DuoNeb every 2 hours p.r.n. and every 6 hours round the clock, heparin 5000 units subcu every 12 hours, methadone 150 mg daily, Protonix 40 mg daily, Solu-Medrol 40 mg every 12 hours, Zofran 4 mg every 4 hours p.r.n. LABORATORY DATA: Shows hemoglobin 10.5, hematocrit 34.7, WBC 11, platelet is 97. Sodium 143, potassium 4, chloride 105, bicarbonate is 33, BUN 30, creatinine 0.9, glucose 73, calcium is 9.1, phosphorus is 3.1, magnesium 1.9. AST 30, ALT 49, albumin is 2.9. Microbiology: Blood culture, urine culture, and nares are unremarkable. IMPRESSION AND PLAN: Chronic obstructive lung disease, has acquired immune deficiency syndrome, history of substance abuse, methadone dependent. Pulmonary point of view, slowly improving. We will continue IV and inhaled bronchodilator. Continue antibiotics. Gastric prophylaxis. Deep venous thrombosis prophylaxis. Stool softener. Fall precaution. Thank you and we will follow with you. Cara Barajas MD
[2018-02-13] MEDS: Albuterol-Ipratrop 3 mg / 0.5 (3 ml) UD IH SCH ×4 (01:43→20:05)
[2018-02-13 06:01] LABS: ALB/GLOB RATIO 0.8 (1.1-1.8); ALBUMIN 3.3 g/dL (3.0-4.8); ALT/SGPT 36 U/L (7-56); AST/SGOT 54 U/L (14-36); BLOOD UREA NITROGEN 27 mg/dL (7-21); CALCIUM 9.4 mg/dL (8.4-10.5); GFR AFRICAN-AMERICAN > 60; GFR NON-AFRICAN AMERICAN > 60
[2018-02-13 06:06] LABS: BASO # 0.03 K/mm3 (0.0-2.0); BASO % 0.1 % (0.0-3.0); GRAN # 22.32 (1.4-6.5); GRAN % 91.4 % (50.0-68.0); HEMOGLOBIN 11.6 g/dL (12.0-16.0); LYMPH % 4.3 % (22.0-35.0); MEAN CELL VOLUME 82.8 fl (80.0-105.0); MEAN CORPUSCULAR HGB CONC 31.4 g/dl (31.0-37.0); MONO % 4.2 % (1.0-6.0); PLATELET COUNT 113 10^3/uL (120.0-450.0); RBC 4.47 10^6/uL (3.5-6.1); RED CELL DISTRIBUTION WIDTH 16.8 % (11.5-14.5); WHITE BLOOD COUNT 24.4 10^3/ul (4.5-11.0)
[2018-02-13] MEDS: Pantoprazole 40 mg EC Tab PO SCH (07:41)
[2018-02-13 08:38] LABS: BAND 2 % (0-2); HYPOCHROMIA 1+; LYMPHOCYTE 4 % (22.0-35.0); MONOCYTE 6 % (1.0-6.0); NEUTROPHIL 88 % (50.0-70.0); PLATELET ESTIMATE NORMAL (NORMAL); ROULEAU 2+; TOXIC GRANULATION 2+
[2018-02-13] MEDS: MethylPREDNISolone 40 mg Vial IVP SCH ×2 (09:25→21:14)
--- NOTE | 2018-02-13 13:52 | PN ---
DATE: 02/13/2018 SUBJECTIVE: The patient is in bed, in no acute distress, nontoxic. The patient was seen earlier this morning in room 128, bed 4. OBJECTIVE VITAL SIGNS: Temperature is 98, blood pressure is 102/50, respiratory rate of 17, heart rate of 80. HEENT: Examination is unremarkable. NECK: Supple. LUNGS: Have decreased breath sounds. HEART: Normal S1, S2. ABDOMEN: Soft, nontender. No rebound or guarding. DATA: Laboratory examination reveals the patient's white count of 24,000, hemoglobin of 11, platelets of 113. The patient has have 91% granulocytosis and no bandemia is seen. BUN of 27, creatinine of 0.8, procalcitonin 0.05. Urinalysis is noted and serology is reviewed. The patient's Cryptococcus antigen is negative. The CMV PCR is negative. Urine for Legionella antigen is negative. Urine for Strep antigen is negative. Beta-1-3d glucan is negative x2 and Microbiology reveals the blood cultures have no growth. Urine cultures have no growth. Nares MRSA screen is not detected and review of orders reveal the patient to be on doxycycline. The patient is on Solu-Medrol. Dr. Barajas's note from yesterday is reviewed. ASSESSMENT AND PLAN: Reveals the patient to have to be a 37-year-old female with end-stage acquired immune deficiency syndrome and severe sepsis, bilateral interstitial pneumonia, I doubt Pneumocystis carinii pneumonia since the patient has two negative LDH and two 1-3 beta D Glucan and old hung cultures are negative. Procalcitonin is negative and in a patient with chronic obstructive lung disease, pulmonary fibrosis, history of hepatitis C, would complete 7 to 10 days of doxycycline. We will continue with Mepron for PCP prophylaxis and we will check on the sputum culture. Overall prognosis quite poor for this patient who is noncompliant, end-stage acquired immune deficiency syndrome with end-stage cachectic, wasting syndrome. Cheikh Chou MD
[2018-02-13] MEDS: Atovaquone 750 mg/5 ml Susp UD PO SCH (17:21)
--- NOTE | 2018-02-14 00:32 | PN ---
DATE: 02/13/2018 PULMONARY PROGRESS NOTE REFERRING PHYSICIAN: Macario Carter MD SUBJECTIVE: She is sitting in a bed in the intensive care unit. Night was unremarkable. Feels much better. Decreased cough, decreased shortness of breath. No nausea, no vomiting, no diarrhea. No leg pain, no leg swelling. OBJECTIVE: GENERAL: In no acute distress. VITAL SIGNS: Temperature is 98, heart rate is 85, respiratory rate is 20, blood pressure is 94/57. HEENT: Moist mucous membranes. No ulcer or thrush. NECK: Supple. No JVD. LUNGS: Have a prolonged expiratory phase and wheezing. HEART: S1 and S2. ABDOMEN: Soft, nontender. No organomegaly. EXTREMITIES: No edema. NEUROLOGICAL: Awake and alert. Follows simple command. MEDICATIONS: She is on doxycycline 100 mg twice a day; DuoNeb every 2 hours p.r.n.; every 6 hours [id number]; heparin 5000 units subcu every 12 hours; Mepron 750 mg twice a day; methadone 150 mg daily; Protonix 40 mg a.c.b.; Solu-Medrol 40 mg every 12 hours; Zofran p.r.n. basis. LABORATORY DATA: Shows hemoglobin 11.6, hematocrit 37, WBC 24,000, platelet is 113. Sodium 140, potassium 4.7, chloride 102, bicarbonate 32, BUN 27, creatinine 0.8, glucose 92, calcium is 9.4, AST 54, ALT 36, alk phos is 73, albumin is 3.3. IMPRESSION AND PLAN: Chronic obstructive lung disease, acquired immune deficiency syndrome, history of substance abuse, methadone dependent, pneumonia. Pulmonary point, slowly improving. We will decrease Solu-Medrol to 20 twice a day. Continue inhaled bronchodilator. Antibiotics as per Infectious Disease. Gastric prophylaxis. Deep venous thrombosis prophylaxis. Fall precaution. May be transfer out of intensive care unit to regular floor. Thank you and we will follow with you. Cara Barajas MD
[2018-02-14] MEDS: Albuterol-Ipratrop 3 mg / 0.5 (3 ml) UD IH SCH ×4 (02:02→19:36)
[2018-02-14 07:10] LABS: BASO # 0.02 K/mm3 (0.0-2.0); BASO % 0.1 % (0.0-3.0); EOS % 0.1 % (1.5-5.0); GRAN # 28.35 (1.4-6.5); GRAN % 88.4 % (50.0-68.0); HEMOGLOBIN 11.3 g/dL (12.0-16.0); LYMPH # 1.7 (1.2-3.4); LYMPH % 5.4 % (22.0-35.0); MEAN CELL VOLUME 82.4 fl (80.0-105.0); MEAN CORPUSCULAR HEMOGLOBIN 26.1 pg (25.0-35.0); MEAN CORPUSCULAR HGB CONC 31.7 g/dl (31.0-37.0); MEAN PLATELET VOLUME 9.5 fl (7.0-11.0); MONO # 1.9 (0.1-0.6); RBC 4.33 10^6/uL (3.5-6.1); RED CELL DISTRIBUTION WIDTH 16.8 % (11.5-14.5)
[2018-02-14 07:27] LABS: ALB/GLOB RATIO 0.8 (1.1-1.8); ALBUMIN 3.2 g/dL (3.0-4.8); ALT/SGPT 31 U/L (7-56); AST/SGOT 39 U/L (14-36); BLOOD UREA NITROGEN 25 mg/dL (7-21); CALCIUM 9.6 mg/dL (8.4-10.5); GFR AFRICAN-AMERICAN > 60; GFR NON-AFRICAN AMERICAN > 60
[2018-02-14] MEDS: MethylPREDNISolone 40 mg Vial IVP SCH (09:02)
[2018-02-14] MEDS: Atovaquone 750 mg/5 ml Susp UD PO SCH (09:04)
[2018-02-14] MEDS: Pantoprazole 40 mg EC Tab PO SCH (09:04)
--- NOTE | 2018-02-14 10:00 | CP.PCM.PN ---
Subjective - Date & Time of Evaluation Date of Evaluation: 02/14/18 Time of Evaluation: 08:50 - Subjective Subjective: Breathing better today, improved cough, has more energy, no fevers overnight. Objective - Vital Signs/Intake and Output Vital Signs (last 24 hours): Temp Pulse Resp BP Pulse Ox 98.8 F 115 H 24 94/57 L 98 02/13/18 16:00 02/14/18 08:37 02/14/18 08:37 02/13/18 08:00 02/13/18 04:37 - Medications Medications: Current Medications Albuterol/Ipratropium (Duoneb 3 Mg/0.5 Mg (3 Ml) Ud) 3 ml IH [id number] [facility] Last Admin: 02/14/18 07:37 Dose: 3 ml Albuterol/Ipratropium (Duoneb 3 Mg/0.5 Mg (3 Ml) Ud) 3 ml IH Q2H PRN PRN Reason: Shortness of Breath Last Admin: 02/08/18 06:10 Dose: 3 ml Atovaquone (Mepron) 750 mg PO BID EDSON PRN Reason: Protocol Stop: 03/06/18 18:01 Last Admin: 02/14/18 09:04 Dose: 750 mg Doxycycline Hyclate (Doryx) 100 mg PO Q12 E[facility]ON PRN Reason: Protocol Stop: 02/19/18 22:01 Last Admin: 02/14/18 09:04 Dose: 100 mg Heparin Sodium (Porcine) (Heparin) 5,000 units SC Q12 EDSON PRN Reason: Protocol Last Admin: 02/14/18 09:03 Dose: 5,000 units Methadone HCl (Methadone) 150 mg PO DAILY [facility] Last Admin: 02/14/18 09:11 Dose: 150 mg Methylprednisolone (Solu-Medrol) 20 mg IVP Q12 [facility] Last Admin: 02/14/18 09:02 Dose: 20 mg Ondansetron HCl (Zofran Inj) 4 mg IVP Q4H PRN PRN Reason: Nausea/Vomiting Last Admin: 02/12/18 10:35 Dose: 4 mg Pantoprazole Sodium (Protonix Ec Tab) 40 mg PO ACB [facility] Last Admin: 02/14/18 09:04 Dose: 40 mg - Labs Labs: 02/14/18 05:40 02/14/18 05:40 PT 10.6 SECONDS (9.4-12.5) 02/07/18 20:50 INR 0.93 (0.93-1.08) 02/07/18 20:50 APTT 37.9 Seconds (25.1-36.5) H 02/07/18 20:50 - Constitutional Appears: Cachectic, Chronically Ill - Head Exam Head Exam: NORMAL INSPECTION - Neck Exam Neck Exam: absent: Meningismus - Respiratory Exam Respiratory Exam: Decreased Breath Sounds - Cardiovascular Exam Cardiovascular Exam: +S1, +S2 - GI/Abdominal Exam GI & Abdominal Exam: Soft. absent: Tenderness Assessment and Plan - Assessment and Plan (Free Text) Plan: Assessment severe sepsis with bilateral interstitial pneumonia, unlikely pneumocystis pneumonia R/O atypical pneumonia HIV/AIDS with last CD4 count <20, non-compliant with her meds COPD chronic back pain history of IVDA hepatitis C infection Plan continue Doxycycline (day 5) to complete 7-10 days of therapy beta glucan and CMV PCR are negative Will continue to monitor clinically continue Mepron for PJP prophylaxis patient with elevated WBC count but patient was given Granix - will monitor and trend WBC count
--- NOTE | 2018-02-14 11:01 | CP.PCM.PN ---
Subjective - Date & Time of Evaluation Date of Evaluation: 02/14/18 Time of Evaluation: 09:00 - Subjective Subjective: PGY-[address] Sullivan's service Patient seen and examined at bedside in ICU. No acute distress. Patient states that she feels much better. Her breathing has improved. She is tolerating diet. Denies fever, chills, n/v, abd pain, headache, dizziness. She states that she would like to get out of bed and start walking more. Objective - Vital Signs/Intake and Output Vital Signs (last 24 hours): Temp Pulse Resp BP Pulse Ox 98.8 F 115 H 24 94/57 L 98 02/13/18 16:00 02/14/18 08:37 02/14/18 08:37 02/13/18 08:00 02/13/18 04:37 - Medications Medications: Current Medications Albuterol/Ipratropium (Duoneb 3 Mg/0.5 Mg (3 Ml) Ud) 3 ml IH [id number] [facility] Last Admin: 02/14/18 07:37 Dose: 3 ml Albuterol/Ipratropium (Duoneb 3 Mg/0.5 Mg (3 Ml) Ud) 3 ml IH Q2H PRN PRN Reason: Shortness of Breath Last Admin: 02/08/18 06:10 Dose: 3 ml Atovaquone (Mepron) 750 mg PO BID EDSON PRN Reason: Protocol Stop: 03/06/18 18:01 Last Admin: 02/14/18 09:04 Dose: 750 mg Doxycycline Hyclate (Doryx) 100 mg PO Q12 EDSON PRN Reason: Protocol Stop: 02/19/18 22:01 Last Admin: 02/14/18 09:04 Dose: 100 mg Heparin Sodium (Porcine) (Heparin) 5,000 units SC Q12 EDSON PRN Reason: Protocol Last Admin: 02/14/18 09:03 Dose: 5,000 units Methylprednisolone (Solu-Medrol) 20 mg IVP Q12 [facility] Last Admin: 02/14/18 09:02 Dose: 20 mg Ondansetron HCl (Zofran Inj) 4 mg IVP Q4H PRN PRN Reason: Nausea/Vomiting Last Admin: 02/12/18 10:35 Dose: 4 mg Pantoprazole Sodium (Protonix Ec Tab) 40 mg PO ACB [facility] Last Admin: 02/14/18 09:04 Dose: 40 mg - Labs Labs: 02/14/18 05:40 02/14/18 05:40 PT 10.6 SECONDS (9.4-12.5) 02/07/18 20:50 INR 0.93 (0.93-1.08) 02/07/18 20:50 APTT 37.9 Seconds (25.1-36.5) H 02/07/18 20:50 - Constitutional Appears: No Acute Distress, Chronically Ill - Head Exam Head Exam: ATRAUMATIC, NORMOCEPHALIC - Eye Exam Eye Exam: EOMI, Normal appearance - ENT Exam ENT Exam: Mucous Membranes Moist - Respiratory Exam Respiratory Exam: Wheezes (mild), NORMAL BREATHING PATTERN. absent: Decreased Breath Sounds, Rales, Rhonchi, Respiratory Distress - Cardiovascular Exam Cardiovascular Exam: REGULAR RHYTHM, +S1. absent: Bradycardia, Tachycardia, Murmur - GI/Abdominal Exam GI & Abdominal Exam: Soft, Normal Bowel Sounds. absent: Distended, Tenderness - Extremities Exam Extremities Exam: Full ROM, Normal Inspection, Pedal Edema. absent: Calf Tenderness, Tenderness - Neurological Exam Neurological Exam: Alert, Awake, Oriented x3 - Skin Skin Exam: Dry, Intact, Normal Color, Warm Assessment and Plan - Assessment and Plan (Free Text) Assessment: 37 year old female, whose past medical history includes HIV, AIDS, COPD, PNA, IV drug abuse initially presented with complaint of shortness of breath, and cough has history of pancytopenia pancytopenia- IMPROVED severe copd exacerbation- improved PNA AIDS Plan: pancytopenia most likely related to HIV WBC count 32, will stop granix, wbc count should decrease case discussed with ID, currently does not need bone marrow biopsy, pancytopenia improved currently on mepron for pcp prophylaxis treatment per ID pcp is less likely due to nomral LDH and negative cryptocoocal antigen CMV antigen negative urine legionella negative, streptococcal antigen negative V/Q scan low probability continue antibiotic doxy per ID ID consulted respiratory status improved continue broncodilators solu- medrol decreased to 20mg q12 per pulm Pulm consulted Echo showed preserved EF with right ventricle dilation continue methadone Case reviewed and discussed with Dr. Sullivan
[2018-02-14 11:10] VITALS: O2SAT 92
[2018-02-14 13:59] VITALS: BP 97/65; PULSE 89; RESP 16; TEMP 97.8
--- NOTE | 2018-02-14 19:26 | PN ---
DATE: REASON FOR CONSULTATION AND FOLLOWUP: Shortness of breath; hypoxemia; HIV positive; HIV-related pneumonia, improved. SUBJECTIVE: The patient denies any chest pain, shortness of breath, or any palpitations. PHYSICAL EXAMINATION: GENERAL: Not in apparent distress. VITAL SIGNS: Temperature afebrile, heart rate 83, blood pressure 104/70. HEENT: PERRLA, intact. NECK: Supple. No carotid bruit. No thyromegaly. CHEST: Clear to auscultation. HEART: S1 and S2, regular. ABDOMEN: Soft. EXTREMITIES: Clubbing and cyanosis negative. LABORATORY DATA: Blood workup as follows: WBC 32, hemoglobin 11, hematocrit 35.7, platelet count 132. Chemistry shows sodium 141, potassium 4.7, chloride 99, carbon dioxide 35, anion gap of 11, BUN 25, creatinine 0.8. IMPRESSION: Human immunodeficiency virus infection/acquired immune deficiency syndrome; acquired immune deficiency syndrome-related pneumonia; shortness of breath, improved; pancytopenia; leukocytosis possibly secondary to Neupogen, possibly neutrophil growth factor; bilateral pneumonia, Pneumocystis and rule out human immunodeficiency virus-related pneumonia; CD4 count is 20 and noncompliant with her medication, chronic obstructive pulmonary disease; chronic back pain; history of intravenous drug abuser; history of hepatitis C; methadone maintenance. Also the patient did an echocardiography on 02/08/2018 that showed borderline LV function, right ventricle moderately dilated, systolic function moderately reduced, mild tricuspid regurgitation, moderate pulmonary hypertension reported, RV systolic pressure reported 45 consistent with mild. RECOMMENDATION: Continue antibiotics. Continue DVT prophylaxis. CVS status is stable. We will sign off and glad to follow p.r.n. Thank you, Dr. Carter, for providing us the opportunity in taking care of the patient, Veronica Ruiz. Cara Veliz MD
--- NOTE | 2018-02-14 23:36 | PN ---
DATE: 02/14/2018 PULMONARY PROGRESS NOTE REFERRING PHYSICIAN: Macario Carter MD. SUBJECTIVE: The patient is sitting up in a chair. Mother is at bedside. Feels better. Out of ICU. Still has some cough and wheezing. No nausea. No vomiting, diarrhea, leg pain or leg swelling. OBJECTIVE: GENERAL: In no acute distress. VITAL SIGNS: Temp is 98. Heart rate is 89, respiratory rate is 16, blood pressure 97/65, pulse ox 92% on room air. HEENT: Moist mucous membrane. No ulcer or thrush noted. NECK: Supple. No JVD. LUNGS: Have bilaterally some expiratory wheezing, but improved airflow. HEART: S1 and S2. ABDOMEN: Soft, nontender. No organomegaly. EXTREMITIES: There is no edema. NEUROLOGIC: Awake, alert. Follows simple command. MEDICATIONS: Reviewed. No new medicine reported since yesterday. LABORATORY DATA: Shows hemoglobin 11.3, hematocrit 35.7, WBC 32,000, platelet is 132. Sodium 141, potassium 4.7, chloride 99, bicarbonate 35, BUN 25, creatinine 0.8, glucose 84 and calcium is 9.6. AST 39, ALT 31, alk phos is 86. Albumin is 3.2. IMPRESSION AND PLAN: Chronic obstructive lung disease, acquired immunodeficiency syndrome, history of substance abuse, methadone dependent pneumonia. Pulmonary point of view, she is doing okay. Continue IV and inhaled bronchodilator. Gastric prophylaxis. Fall precaution. Patient is asked to stop smoking. She is methadone dependent. Thank you and we will follow with you. Cara Barajas MD
--- NOTE | 2018-02-16 13:14 | PQF RESP ---
02/15/18 Dr. Barajas, You document "respiratory failure with carbon dioxide retention and hypoxemia." Please indicate whether this is acute, chronic, or both. Thank you. (Previous form signed only) Thank you. Clarification of your documentation is requested to better reflect the severity of illness and intensity of treatment of your patient. Indicators present [] Use of Home Oxygen [] Respiratory rate > 28 or <8/min (Labored respirations) [] PCO2 > 50 mm Hg or (Hypercapnia) (somnolence) [] PaO2 < 60 mm Hg or Hypoxemia (confusion) [] ABG blood gas pH < 7.35 [] SpO2 < 90% sat on Room Air [] Cyanosis [] Unable to Speak in Full Sentences [] Use of Accessory Muscles / Tripoding [] Wheezing [] Other: [] Location in the medical record that reflects the above clinical findings: [] Treatment Provided: [] PHYSICIAN'S RESPONSE Based on your medical judgment of the clinical indicators outlined above, are you treating this patient for a known or suspected: [] Acute Respiratory Failure (hypoxia or hypercapnia) [] Chronic Respiratory Failure (hypoxia or hypercapnia) [] Acute on Chronic Respiratory Failure (hypoxia or hypercapnia) [] Hypoxemia please specify ACUTE, CHRONIC or ACUTE on CHRONIC [] Other []_ [] If unable to determine, please check the box, sign and date. Present On Admission (POA) Indicator: [] Present at the time of admission [] Not present at the time of admission [] Clinically Undetermined In responding to this query, please exercise your independent professional judgment. The fact that a question is asked does not imply that any particular answer is desired or expected. Thank you for your clarification on this documentation. If you have any questions please call:[ ] * Thank you, [ ] [email or web address] Chronic Respiratory Failure Description: Respiratory failure is a syndrome in which the respiratory system fails in one or both of its gas exchange functions: oxygenation and carbon dioxide elimination. In theory, respiratory failure is defined as a Pa02 value of <60 mm/Hg or a PaC02 of >50 mm/Hg. However, these values may be affected by renal compensation. Respiratory failure may be acute or chronic. While acute respiratory failure is characterized by life-threatening derangement in arterial blood gases and acid-base balance, the manifestations of chronic respiratory failure are less dramatic and may not be as readily apparent. Classifications: Respiratory failure may be classified as hypoxemic (usually characterized by Pa02 of <60 mm/Hg) or hypercapnic (usually characterized by PaC02 >50 mm/Hg) and either may be acute or chronic. Chronic hypercapnic respiratory failure develops over time and allows for renal compensation and an increase in bicarbonate concentration; therefore the pH is usually only slightly decreased. The distinction between acute and chronic hypoxemic respiratory failure cannot readily be made on the basis of ABGs; the clinical markers of chronic hypoxemia, such as polythycemia or cor pulmonale suggest a long standing disorder (chronic hypoxemic respiratory failure). Clinical Indicators: dyspnea at rest or "chronic" dyspnea, concomitant conditions such as polycythemia or cor pulmonale, requirement for continuous oxygen support, forced expiratory volume in one second (FEV1) of 49 or less, pursed lip breathing, "barrel" chest, hyperinflation by CXR, muscle wasting, malnutrition/obesity, poor exercise capacity, peripheral edema, description as a "blue bloater" (usually associated with chronic, obstructive bronchitis) or "pink puffer" (usually associated with emphysema) Risks: Chronic Hypoxemic Respiratory Failure - COPD, pulmonary fibrosis, asthma , pulmonary arterial hypertension, granulomatous lung diseases, congenital heart disease, bronchiectasis, kyphoscoliosis, obesity; Chronic Hypercapnic Respiratory Failure - COPD, severe asthma, myasthenia gravis, polyneuropathy, polio, head and cervical spine injuries, obesity hypoventilation syndrome. Treatment: supplemental oxygen, bronchodilators, corticosteroids, adequate nutrition, lung transplant References: Am. J. Respir. Crit. Care Med. "Global Strategy for the Diagnosis, Management and Prevention of COPD: GOLD Exectuive Summary," Karena Flores Anzueto - 2007; Proceedings of the [place] [employer] "Mechanisms and Measurements of Dyspnea in COPD," [place]vin - 2006; WebMD; Respiratory Failure, Luis Montes MD - 04/2006; Sanjiv's Principles of Internal Medicine, 17th edition. Acute Respiratory Failure Acute Respiratory Failure indicators include: ~Respirations >28 ~Air hunger ~Use of accessory muscles of respiration ~Inability to speak in full sentences Cyanosis ~Pulse ox <90% RA or <95% on O2 pH <7.35 or >7.45 ~pO2 < 60 mm Hg (or 10mm below COPD patient's baseline) ~pCO2 >50mm Hg (or 10mm above COPD patient's baseline) "Respiratory failure may be assigned as a principal diagnosis when it is the condition established after study to be chiefly responsible for occasioning admission to the hospital. The fact that the respiratory failure was managed without intubation and mechanical ventilation does not preclude its use." [facility], [facility]rd [facility]., 1988, p. 7 MTDD
== END 2018-02-14 20:42 | disposition home or self-care (01) | DRG 706 ==
LOC: ED 17:47 → ERH 02-08 00:51 → 3RSO 02-08 03:01 → ICU 02-08 11:40 → 5RNO 02-14 13:23
PROVIDERS: ADMIT Internal Medicine; ATTEND Internal Medicine
DX: A41.9 Sepsis, unspecified organism (principal); B20 Human immunodeficiency virus [HIV] disease; B59 Pneumocystosis; I42.9 Cardiomyopathy, unspecified; I26.99 Other pulmonary embolism without acute cor pulmonale; N17.9 Acute kidney failure, unspecified; J96.01 Acute respiratory failure with hypoxia; J96.02 Acute respiratory failure with hypercapnia; B18.2 Chronic viral hepatitis C; D61.818 Other pancytopenia; E44.1 Mild protein-calorie malnutrition; E87.2 Acidosis; E87.5 Hyperkalemia; E87.8 Other disorders of electrolyte and fluid balance, not elsewhere classified; F11.23 Opioid dependence with withdrawal; I07.1 Rheumatic tricuspid insufficiency; I50.810 Right heart failure, unspecified; J44.1 Chronic obstructive pulmonary disease with (acute) exacerbation; R64 Cachexia; R65.20 Severe sepsis without septic shock; D70.3 Neutropenia due to infection; F17.200 Nicotine dependence, unspecified, uncomplicated; G89.29 Other chronic pain; H35.30 Unspecified macular degeneration; I27.29 Other secondary pulmonary hypertension; I27.81 Cor pulmonale (chronic); I51.89 Other ill-defined heart diseases; J84.10 Pulmonary fibrosis, unspecified; L29.9 Pruritus, unspecified; M41.9 Scoliosis, unspecified; Z86.11 Personal history of tuberculosis; Z87.01 Personal history of pneumonia (recurrent); Z87.440 Personal history of urinary (tract) infections; Z91.14 Patient's other noncompliance with medication regimen; Z91.19 Patient's noncompliance with other medical treatment and regimen

== ENCOUNTER 2018-03-11 17:06 | Inpatient (IN) | payer OTHER ==
[2018-03-11] MEDS ORDERED: Albuterol 0.083% Inhal Sol (2.5 mg/3 mL) UD INH STA (17:31)
--- NOTE | 2018-03-11 17:37 | ED PDOC ---
Arrival/HPI - General Chief Complaint: Chest Pain Time Seen by Provider: 03/11/18 17:23 - History of Present Illness Narrative History of Present Illness (Text): 03/11/18 17:37 A 37 year old female, heavy smoker, methidone dependent, whose past medical history includes HIV, unsure of last T cell count, unaware of PMD name, out her medications, unsure of allergies, presents to the emergency department for pneumonia. Patient saw Dr. Carter today, who advised patient to come to the emergency department to rule out DVT. Patient has b/l swollen ankles. Reports fever, chills, cough. Patient continues to smoke. Uses Albuterol at home and ventilator inhaler. Denies any other complaints at this time. Symptom Onset: Sudden Symptom Course: Unchanged Activities at Onset: Rest Context: Home Past Medical History - Provider Review Nursing Documentation Reviewed: Yes - Infectious Disease Hx of Infectious Diseases: None - Tetanus Immunization Tetanus Immunization: Unknown - Cardiac Hx Cardiac Disorders: Yes Hx Hypotension: Yes - Pulmonary Hx Respiratory Disorders: Yes (has nebulizer machine at home) Hx Asthma: Yes Hx Bronchitis: Yes Hx Chronic Obstructive Pulmonary Disease (COPD): Yes Hx Pneumonia: Yes - Neurological Hx Migraine: Yes - HEENT Hx Macular Degeneration: Yes - Renal Hx Renal Disorder: No - Endocrine/Metabolic Hx Endocrine Disorders: No - Hematological/Oncological Hx Blood Disorders: Yes (blood transfusion) Hx Hepatitis C: Yes (IVDU) - Integumentary Hx Dermatological Disorder: Yes - Musculoskeletal/Rheumatological Hx Musculoskeletal Disorders: Yes Hx Back Pain: Yes Other/Comment: SCOLIOSIS - Gastrointestinal Hx Gastrointestinal Disorders: Yes - Genitourinary/Gynecological Hx Genitourinary Disorders: Yes Hx Urinary Tract Infection: Yes - Psychiatric Hx Psychophysiologic Disorder: Yes Hx Anxiety: Yes Hx Substance Use: No Other/Comment: hx ivdu/cocaine stopped 6 yrs ago on methadone program, smokes 1 ppd has not smoked in 4 days - Past Surgical History Past Surgical History: No Previous - Surgical History Other/Comment: right anterior neck SX for abcesses bx neg - Anesthesia Hx Anesthesia: Yes Hx Anesthesia Reactions: No Hx Malignant Hyperthermia: No - Suicidal Assessment Feels Threatened In Home Enviroment: No Family/Social History - Physician Review Nursing Documentation Reviewed: Yes Family/Social History: No Known Family HX Smoking Status: Light Smoker < 10 Cigarettes Daily Hx Alcohol Use: No Hx Substance Use: No Substance used: herion, cocaine Hx Substance Use Treatment: No Allergies/Home Meds Allergies/Adverse Reactions: Allergies levofloxacin [From Levaquin] Allergy (Verified 03/11/18 17:15) RASH Penicillins Allergy (Verified 03/11/18 17:15) RASH azithromycin [From Zithromax] Adverse Reaction (Verified 03/11/18 17:15) RASH flexeril Adverse Reaction (Uncoded 03/11/18 17:15) RASH Home Medications: Home Meds Medication Instructions Recorded Confirmed Albuterol HFA [Ventolin HFA 90 2 puff INH Q4H PRN 03/11/18 03/11/18 mcg/actuation (8 g)] Famotidine [Pepcid] 40 mg PO DAILY 03/11/18 03/11/18 Ibuprofen [Motrin Tab] 800 mg PO PRN PRN 03/11/18 03/11/18 Pantoprazole Sodium [Protonix] 40 mg PO DAILY 03/11/18 03/11/18 Review of Systems - Physician Review All systems were reviewed & negative as marked: Yes - Review of Systems Constitutional: Fevers, Other (chills) Respiratory: Cough Musculoskeletal: Other (b/l ankle swelling) Physical Exam Vital Signs Reviewed: Yes Vital Signs Temp Pulse Resp BP Pulse Ox 03/11/18 20:35 98 F 110 H 19 107/63 95 03/11/18 17:24 98.3 F 78 18 107/72 95 Temperature: Afebrile Blood Pressure: Normal Pulse: Regular Respiratory Rate: Normal Appearance: Positive for: Comfortable, Cachectic Pain Distress: None Mental Status: Positive for: Alert and Oriented X 3 - Systems Exam Head: Present: Atraumatic, Normocephalic Pupils: Present: PERRL Extroacular Muscles: Present: EOMI Conjunctiva: Present: Normal Mouth: Present: Moist Mucous Membranes Neck: Present: Normal Range of Motion Respiratory/Chest: Present: Wheezes (front and back lung asif). No: Respiratory Distress, Accessory Muscle Use Cardiovascular: Present: Regular Rate and Rhythm, Normal S1, S2. No: Murmurs Abdomen: No: Tenderness, Distention, Peritoneal Signs Back: Present: Normal Inspection Upper Extremity: Present: Normal Inspection. No: Cyanosis, Edema Lower Extremity: Present: Edema (b/l swollen ankles) Neurological: Present: GCS=15, CN II-XII Intact, Speech Normal Skin: Present: Warm, Dry, Normal Color. No: Rashes Psychiatric: Present: Alert, Oriented x 3, Normal Insight, Normal Concentration Medical Decision Making ED Course and Treatment: 03/11/18 17:35 Impression: A 37 year old female with b/l swollen ankles, fever, chills and cough. Plan: -- EKG -- Chest X-ray -- labs -- Albuterol, Solumedrol -- US lower extremity -- Reassess and disposition Progress Notes: EKG: Ordered, reviewed, and independently interpreted the EKG. Rate : 85 BPM Rhythm : NSR Interpretation : prolonged QT 03/11/18 18:32 US lower extremity- no DVT. 03/11/18 20:[address] Carter, who agrees and accepts patient to be admitted to [facility]. - Lab Interpretations Lab Results: 03/11/18 17:40 03/11/18 17:40 Lab Results 03/11/18 17:40: Sodium 146, Chloride 110 H, Potassium 4.3, Carbon Dioxide 26, Anion Gap 14, BUN 20, Creatinine 0.9, Est GFR ( Amer) > 60, Est GFR (Non- Af Amer) > 60, Random Glucose 84, Calcium 8.7, Total Bilirubin 1.6 H, AST 1794 H , ALT 561 H, Alkaline Phosphatase 1272 H, Lactate Dehydrogenase 1052 H, Total Creatine Kinase 112, Troponin I 0.06 D, Total Protein 7.7, Albumin 3.1, Globulin 4.6, Albumin/Globulin Ratio 0.7 L, Hep Bs Antigen Pending 03/11/18 17:40: pO2 30, VBG pH 7.21 L, VBG pCO2 69.0 H*, VBG HCO3 27.6, VBG Total CO2 29.7 H, VBG O2 Sat (Calc) 58.5, VBG Base Excess -1.9 L, VBG Potassium 4.1, Sodium 138.0, Chloride 109.0 H, Glucose 82, Lactate 0.7, FiO2 21.0, Venous Blood Potassium 4.1 03/11/18 17:40: PT 9.3 L, INR 0.82 L, D-Dimer, Quantitative 294 H 03/11/18 17:40: WBC 3.2 L D, RBC 4.47, Hgb 12.0, Hct 37.4, MCV 83.7, MCH 26.8, MCHC 32.1, RDW 18.8 H, Plt Count 80 L, Gran % 73.6 H, Lymph % (Auto) 15.7 L, [place]gs % (Auto) 9.1 H, Eos % (Auto) 1.3 L, Baso % (Auto) 0.3, Gran # 2.34, Lymph # (Auto) 0.5 L, [place] # (Auto) 0.3, Eos # (Auto) 0.0, Baso # (Auto) 0.01, ESR 54 H I have reviewed the lab results: Yes - RAD Interpretation Radiology Orders: 03/11/18 17:26 CHEST PORTABLE [RAD] Stat DUPLEX LOWER EXTRM VEIN BILAT [US] Stat - EKG Interpretation Interpreted by ED Physician: Yes Type: 12 lead EKG - Medication Orders Current Medication Orders: Discontinued Medications Albuterol Sulfate (Albuterol 0.083% Inhal Donna (2.5 Mg/3 Ml) Ud) 7.5 mg INH STAT STA Stop: 03/11/18 17:32 Last Admin: 03/11/18 19:20 Dose: 7.5 mg Methylprednisolone (Solu-Medrol) 125 mg IVP STAT STA Stop: 03/11/18 17:29 Last Admin: 03/11/18 19:20 Dose: 125 mg IVP Administration Document 03/11/18 19:20 LA (Rec: 03/11/18 19:20 LA [id number]) Charges for Administration # of IVP Administrations 1 - Scribe Statement The provider has reviewed the documentation as recorded by the Kobe Copeland Provider Scribe Attestation: All medical record entries made by the Scribe were at my direction and personally dictated by me. I have reviewed the chart and agree that the record accurately reflects my personal performance of the history, physical exam, medical decision making, and the department course for this patient. I have also personally directed, reviewed, and agree with the discharge instructions and disposition. Disposition/Present on Arrival - Present on Arrival Any Indicators Present on Arrival: No History of DVT/PE: No History of Uncontrolled Diabetes: No Urinary Catheter: No History of Decub. Ulcer: No History Surgical Site Infection Following: None - Disposition Have Diagnosis and Disposition been Completed?: Yes Diagnosis: Pneumonia, Hepatitis C, Methadone dependence, AIDS, HIV (human immunodeficiency virus infection), Pneumocystis carinii pneumonia, Noncompliance with medication regimen Disposition Time: 20:45 Patient Plan: Admission Patient Problems: Current Active Problems Problem Status Onset Pneumonia Acute Hepatitis C Chronic HIV (human immunodeficiency virus infection) Acute AIDS Acute Methadone dependence Acute Pneumocystis carinii pneumonia Acute Noncompliance with medication regimen Acute Condition: FAIR Discharge Instructions (ExitCare): Human Immunodeficiency Virus and Acquired Immune Deficiency Syndrome (ED) Forms: [employer] (Portuguese)
[2018-03-11 18:02] LABS: VENOUS BLOOD GAS BASE EXCESS -1.9 mmol/L (0.0-2.0); VENOUS BLOOD GAS PO2 30 mm/Hg (30-55); VENOUS BLOOD PH 7.21 (7.32-7.43)
[2018-03-11 18:03] LABS: BASO # 0.01 K/mm3 (0.0-2.0); BASO % 0.3 % (0.0-3.0); EOS % 1.3 % (1.5-5.0); GRAN # 2.34 (1.4-6.5); GRAN % 73.6 % (50.0-68.0); LYMPH # 0.5 (1.2-3.4); LYMPH % 15.7 % (22.0-35.0); MEAN CELL VOLUME 83.7 fl (80.0-105.0); MEAN CORPUSCULAR HEMOGLOBIN 26.8 pg (25.0-35.0); MEAN CORPUSCULAR HGB CONC 32.1 g/dl (31.0-37.0); MONO # 0.3 (0.1-0.6); MONO % 9.1 % (1.0-6.0); PLATELET COUNT 80 10^3/uL (120.0-450.0); RBC 4.47 10^6/uL (3.5-6.1); RED CELL DISTRIBUTION WIDTH 18.8 % (11.5-14.5); WHITE BLOOD COUNT 3.2 10^3/ul (4.5-11.0)
[2018-03-11 18:09] LABS: INR 0.82 (0.93-1.08); PROTHROMBIN TIME 9.3 SECONDS (9.4-12.5)
[2018-03-11 18:19] LABS: ALB/GLOB RATIO 0.7 (1.1-1.8); ALBUMIN 3.1 g/dL (3.0-4.8); ALT/SGPT 561 U/L (7-56); BLOOD UREA NITROGEN 20 mg/dL (7-21); CALCIUM 8.7 mg/dL (8.4-10.5); GFR AFRICAN-AMERICAN > 60; GFR NON-AFRICAN AMERICAN > 60
[2018-03-11 18:24] LABS: TROPONIN I 0.06 ng/mL
[2018-03-11 18:31] LABS: AST/SGOT 1794 U/L (14-36)
[2018-03-11] MEDS: Sulfamethoxazole/Trimethoprim 240 MG in Dextrose 5% In Water 250 ML IVPB SCH (21:42)
[2018-03-12 02:16] VITALS: BMI 17.2
--- NOTE | 2018-03-12 09:47 | RAD ---
HISTORY: cough COMPARISON: 02/08/2018 FINDINGS: LUNGS: Interstitial lung disease unchanged. No focal infiltrates identified. PLEURA: No significant pleural effusion identified, no pneumothorax apparent. CARDIOVASCULAR: Normal. OSSEOUS STRUCTURES: No significant abnormalities. VISUALIZED UPPER ABDOMEN: Normal. OTHER FINDINGS: None. IMPRESSION: No significant interval change compared to the prior examination(s).
[2018-03-12] MEDS ORDERED: Albuterol-Ipratrop 3 mg / 0.5 (3 ml) UD IH PRN (09:59)
[2018-03-12] MEDS: Sulfamethoxazole/Trimethoprim 240 MG in Dextrose 5% In Water 250 ML IVPB SCH (10:36)
[2018-03-12] MEDS: Sodium Chloride 0.9% 1,000 ML IV SCH (10:45)
[2018-03-12] MEDS: MethylPREDNISolone 40 mg Vial IVP SCH ×2 (10:49→21:28)
[2018-03-12] MEDS: Enoxaparin 40 mg Syringe SC SCH (10:50)
[2018-03-12 11:51] LABS: HEPATITIS B SURFACE AG Negative (NEGATIVE)
[2018-03-12 11:53] LABS: HEPATITIS B SURFACE AG Negative (NEGATIVE)
[2018-03-12 11:59] LABS: HEPATITIS A IGM NEGATIVE (NEGATIVE); HEPATITIS B CORE AB NEGATIVE (NEGATIVE)
[2018-03-12] MEDS: Albuterol-Ipratrop 3 mg / 0.5 (3 ml) UD IH SCH ×4 (12:51→23:16)
[2018-03-12 13:51] LABS: HEPATITIS C ANTIBODY REACTIVE (NEGATIVE)
--- NOTE | 2018-03-12 15:26 | CARD ---
APPROVED REPORT EKG Measurement Heart [id number] <Conclusion> Normal sinus rhythm Nonspecific T wave abnormality Prolonged QT Abnormal ECG
[2018-03-12] MEDS: Atovaquone 750 mg/5 ml Susp UD PO SCH (17:27)
--- NOTE | 2018-03-12 17:30 | CT ---
PROCEDURE: CT Chest without contrast HISTORY: r/o infiltrate COMPARISON: March 11, 2018. Single-view chest 03/18/2017 CT thorax TECHNIQUE: Contiguous axial images were obtained through the chest without intravenous contrast enhancement. Sagittal and coronal reconstructions were performed. Radiation dose (DLP): 173.83 mGy-cm. This CT exam was performed using one or more of the following dose reduction techniques: Automated exposure control, adjustment of the mA and/or kV according to patient size, and/or use of iterative reconstruction technique. FINDINGS: LUNGS: Lower airway disease/ bronchitis.Peripheral infiltrates identified on the prior study have improved. No discrete pulmonary nodules or masses are otherwise identified. MEDIASTINUM: Unremarkable thoracic aorta. No aneurysm. Normal sized heart. Main pulmonary artery unremarkable. No vascular congestion. Calcified mediastinal and sub carinal-hilar lymph nodes consistent with granulomatous exposure. Findings are unchanged PLEURA: No pleural fluid. No pneumothorax. BONES: No fracture. No destructive lesion. UPPER ABDOMEN: Grossly unremarkable. OTHER FINDINGS: None. IMPRESSION: No active pulmonary disease. Parabronchial thickening, lower airway disease detected. Multifocal peripheral infiltrates identified previously have improved likely the sequela of infectious/inflammatory process.
[2018-03-12] MEDS: Meropenem IV 1 gm in NS 50 ML IVPB SCH (21:28)
[2018-03-13] MEDS: Sodium Chloride 0.9% 1,000 ML IV SCH
[2018-03-13] MEDS: Albuterol-Ipratrop 3 mg / 0.5 (3 ml) UD IH SCH ×5 (05:07→19:33)
[2018-03-13] MEDS: Meropenem IV 1 gm in NS 50 ML IVPB SCH ×3 (05:34→21:29)
[2018-03-13] MEDS: Pantoprazole 40 mg EC Tab PO SCH (05:34)
[2018-03-13] MEDS: Atovaquone 750 mg/5 ml Susp UD PO SCH ×2 (10:08→17:24)
[2018-03-13] MEDS: MethylPREDNISolone 40 mg Vial IVP SCH ×2 (10:09→21:30)
[2018-03-13] MEDS: Enoxaparin 40 mg Syringe SC SCH (10:09)
[2018-03-13] MEDS: Primaquine 26.3 mg Tab PO SCH (10:09)
--- NOTE | 2018-03-13 13:38 | PN ---
DATE: 03/13/2018 SUBJECTIVE: The patient is in bed, in no acute distress. States that her shortness of breath has improved. PHYSICAL EXAMINATION: VITAL SIGNS: Temperature is 97, blood pressure is 106/60, respiratory rate of 18, heart rate of 72. HEENT: Unremarkable. NECK: Supple. LUNGS: Have decreased breath sounds. HEART: Normal S1 and S2. ABDOMEN: Soft and nontender. LABORATORY DATA: Reveals a white count of 3.2, hemoglobin of 12, platelets of 80, and sed rate of 54. Chemistries revealed the patient to have BUN of 20, creatinine of 0.9. LFTs are noted and procalcitonin is 0.94. Serology is positive for hep C. Microbiology: Blood cultures are negative. The patient had a CAT scan of her chest, which revealed no active pulmonary disease, peribronchial thickening, lower airway disease, and multifocal peripheral infiltrates, improved, likely sequelae of an infectious inflammatory process and currently on clindamycin, primaquine, doxycycline, Mepron, and meropenem. Lower extremity Dopplers are pending and hung cultures are pending. The blood cultures thus far have no growth at 24 hours. 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 The patient does have an elevated procalcitonin, sepsis with bacterial pneumonia, Pneumocystis carinii pneumonia less likely, although the LDH is elevated. Awaiting for Cytomegalovirus PCR, Cryptococcal antigen, urine for histoplasma antigen, and Fungitell glucan assay and Fungitell 1, 3 beta D glucan assay, which was ordered yesterday and canceled. We will reorder it again . Overall, prognosis is quite poor for this patient who has end-stage acquired immune deficiency syndrome, noncompliant with any of her medications. Recommend a psych evaluation. Cheikh Chou MD [facility] # [id number]
--- NOTE | 2018-03-13 22:51 | CON ---
DATE: 03/13/2018 HISTORY OF PRESENT ILLNESS: Patient is a single 37-year-old white female with history of anxiety, depression; no psychiatric admissions, suicide attempts, or chronic psychiatric medications; who was admitted to the medical floor to rule out DVT with a diagnosis of pneumonia. Psychiatry was consulted due to patient's history of depression and anxiety. Patient is also on methadone treatment, which she receives from [facility], at 150 mg daily. I reviewed recent notes and met the patient at bedside. Patient is alert and oriented to month, year, location, and circumstances. Patient is cooperative, and she appears to be a fairly reliable historian. Patient at this time denies having any depression. She reports she is hopeful about the future. Denies any major stressors. She is not hallucinating, does not appear to be hallucinating. Her responses are clear, coherent and relevant to questioning, and they are consistent. Patient does appear anxious and she reports having anxiety and she reports symptoms consistent with panic attack as well as generalized anxiety symptoms in which she worries most of the time over little things, and that lets her anxiety affect her functioning. Patient reports she has not worries, hard for her to stop these worries and indicated that they are hard to control, which is consistent with generalized anxiety disorder. Patient indicates that she wanted psychiatric consultation so that she could be treated for her anxiety. Her insight and judgment are considered to be fair at this time. PSYCHIATRIC HISTORY: Patient, as noted above, denies any psychiatric admissions, suicide attempts or psychiatric medications. Indicates treatment with Klonopin in the past, and denies any abuse of this medication. SOCIAL HISTORY: The patient was born and raised in [place]. She is single. She has 2 children, who are 8 and 9 years old. Patient lives with her father and her children. Patient is going to [facility] and receiving 150 mg daily. She is unemployed. She has 12th grade education. Denies graduating from high school. Patient reports that she has been addicted to opioid since her 20s. Denies any alcohol dependency. Denies any episodes of drug use. Her vitals and labs were reviewed by this provider. RELEVANT PSYCHIATRIC MEDICATIONS: Patient is not on any psychiatric medication; however, she is being prescribed methadone 150 daily by [facility] and this has been continued by the medical team on the medical floor. IMPRESSION: Panic disorder as well as generalized anxiety disorder, opiate use disorder. Patient is currently on treatment of 150 mg daily. RECOMMENDATIONS: 1. At this time, I discussed the options of starting Paxil to prevent her anxiety symptoms. I have started 10 mg at bedtime. I have reviewed therapeutic latency, dosing, possible side effects, and benefits with the patient at bedside today, and she agrees to start treatment with this medication. 2. I have also initiated Klonopin at a very low dose of 0.25 mg a.m. and at bedtime to treat current anxiety symptoms as they come with breakthrough anxiety symptoms. I reviewed indications, possibilities of dependency on this medication as well as respiratory depression when it is taken in high doses with methadone treatment, indicating that respiratory depression can also lead to . Patient agreed to temporary trial with this medication as Paxil becomes therapeutic. 3. Psychiatry will follow up with patient on 03/14/2018, specifically Dr. Cho will follow up with patient at that time. Leslee Gutierrez MD
[2018-03-14] MEDS: Albuterol-Ipratrop 3 mg / 0.5 (3 ml) UD IH SCH ×6 (00:11→20:07)
[2018-03-14] MEDS: Meropenem IV 1 gm in NS 50 ML IVPB SCH ×3 (05:31→21:22)
[2018-03-14] MEDS: Pantoprazole 40 mg EC Tab PO SCH (05:31)
--- NOTE | 2018-03-14 08:27 | CON ---
DATE: 03/12/2018 LOCATION: Patient is in room 578, bed 2. CHIEF COMPLAINT: Shortness of breath and weakness times several days. HISTORY OF PRESENT ILLNESS: This is a 37-year-old female with end-stage AIDS, low T-cells, 1% less than 20 absolute count, the patient had recent hospitalization for bilateral pneumonia, the patient is also with heavy smoker, chronic obstructive lung disease, chronic back pain, methadone user, hepatitis C, arthritis, intravenous drug abuse, she states that she has not recently used intravenous drugs and recent hospitalization, now is admitted with leukopenia, tachycardia, and she denies any fever here. She has no chest pain and there is mild shortness of breath. No abdominal pain, diarrhea or constipation. No bright red blood per rectum. PAST MEDICAL HISTORY: Significant for end-stage AIDS, noncompliant to her medication, underlying interstitial lung disease and chronic obstructive lung disease, bilateral pneumonia by history, hepatitis C, arthritis, asthma, and intravenous drug abuser. PAST SURGICAL HISTORY: Noncontributory. ALLERGIES: SHE IS ALLERGIC TO PENICILLIN, HAS QUESTIONABLE RASH; AZITHROMYCIN; LEVAQUIN, ALSO RASH; THE PATIENT IS ALSO ALLERGIC TO FLEXERIL. PHYSICAL EXAMINATION: VITAL SIGNS: The patient is in bed, with a temperature of 98; with heart rate of 90, it was up to 110; respiratory rate of 20; blood pressure is 100/60. HEENT: Unremarkable. NECK: Supple. LUNGS: Have decreased breath sounds. HEART: Normal S1 and S2. ABDOMEN: Soft, nontender. No rebound or guarding. LABORATORY DATA: Examination of the pO2 oxygenation, the patient is between 90 and 100. Oxygenation this morning is 97 on room air and 100 on nasal cannula and also 90 on room air. Laboratory examination reveals a white count is 3.2, hemoglobin of 12, platelets of 80,000 and coagulation is noted. BUN of 20, creatinine of 0.9 AST is noted. Elevated ALT of 561 with alk phos of 1272, LDH is 1000, the upper limit now in [place] is 699 and C-reactive protein is elevated. Hepatitis C is reactive. Hepatitis B is negative, A is negative. The chemistries are reviewed. Coagulation is reviewed. White count is 3.2, hemoglobin of 12, platelets of 80,000. Chest x-ray is reported interstitial disease, unchanged from previous x-rays and of the extremity results are not available. ASSESSMENT AND PLAN: This is a 37-year-old female with end-stage acquired immunodeficiency syndrome, end-stage chronic obstructive pulmonary disease, chronic back pain, hepatitis C, asthma, history of intravenous drug abuser, recent hospitalization, MULTIPLE ALLERGIES INCLUDING LEVAQUIN, PREDNISONE, AZITHROMYCIN, patient has a QTc of 47, now with leukopenia, tachycardia, systemic inflammatory response syndrome, must rule out health-care associated pneumonia, and bacterial versus CMV versus patient has extremely low T cells versus Pneumocystis carinii pneumonia. We will start clindamycin and primaquine for Pneumocystis carinii pneumonia, we will also start Mepron continue the Bactrim in phase of leukopenia, thrombocytopenia and we will use Solu-Medrol. The patient is also on doxycycline, meropenem. We will order a Fungitell for Glucan (1-3)--d-Glucan, Histoplasma urine antigen and . Overall prognosis is quite poor for this patient who is not compliant to medications. Cheikh Chou MD
[2018-03-14 08:40] LABS: MEAN CORPUSCULAR HEMOGLOBIN 26.3 pg (25.0-35.0); MEAN CORPUSCULAR HGB CONC 30.9 g/dl (31.0-37.0); MEAN PLATELET VOLUME 9.2 fl (7.0-11.0); RBC 3.54 10^6/uL (3.5-6.1); RED CELL DISTRIBUTION WIDTH 19.4 % (11.5-14.5)
[2018-03-14 08:41] LABS: HEMOGLOBIN 9.3 g/dL (12.0-16.0)
[2018-03-14 08:51] LABS: ALB/GLOB RATIO 0.7 (1.1-1.8); ALBUMIN 2.6 g/dL (3.0-4.8); ALT/SGPT 268 U/L (7-56); AST/SGOT 674 U/L (14-36); BLOOD UREA NITROGEN 23 mg/dL (7-21); CALCIUM 8.5 mg/dL (8.4-10.5); GFR AFRICAN-AMERICAN > 60; GFR NON-AFRICAN AMERICAN > 60
[2018-03-14] MEDS: MethylPREDNISolone 40 mg Vial IVP SCH ×2 (11:03→21:23)
[2018-03-14] MEDS: Enoxaparin 40 mg Syringe SC SCH (11:03)
[2018-03-14] MEDS: Atovaquone 750 mg/5 ml Susp UD PO SCH ×2 (11:03→18:02)
--- NOTE | 2018-03-14 11:15 | CARD ---
APPROVED REPORT EKG Measurement Heart [id number] <Conclusion> Normal sinus rhythm rSr Pattern in V1. Non Specific ST_T Changes.
[2018-03-14] MEDS: Primaquine 26.3 mg Tab PO SCH (11:58)
--- NOTE | 2018-03-14 12:32 | CP.PCM.CON ---
<Judy Fitzpatrick - Last Filed: 03/14/18 17:05> History of Present Illness - History of Present Illness History of Present Illness: PGY-[address] Centeno's service 37 year old female with PMH of heavy smoker, methadone dependent, HIV, end satge AIDS, T cell count less then 20, former drug abuser, hepatitis C, noncompliant, presents to the ED for pneumonia, found to have elevated LFT's. Patient states that she was recently in the hospital for similar symptoms. Patient denies n/v, abd pain, diarrhea. She states that she was treated for hep c 2-3 years ago and was told it was cleared. Patient is unsure of the medication use. Patient also reports bilateral swollen ankles. Reports intermittent fever, chills, cough. Patient continues to smoke, 1/2 ppd. Uses Albuterol at home and ventilator inhaler. Denies any other complaints at this time. Patient also states that her doctor left but has not follow up with new ID doctor and she is out of her medications. Patient states that she had endoscopy and colonoscopy a few years a ago. PMH: methadone dependent, HIV, end satge AIDS, T cell count less then 20, former drug abuser, hepatitis C, PSH: right anterior neck surgery abscesses removal Social history: smokes 1/2 ppd, denies alcohol use, former heroin and cocaine use allergy: levofloxacin, penicillins, azithromycin, flexeril Review of Systems - Review of Systems All systems: reviewed and no additional remarkable complaints except Past Patient History - Infectious Disease Hx of Infectious Diseases: None - Tetanus Immunizations Tetanus Immunization: Unknown - Past Social History Smoking Status: Former Smoker - CARDIAC Hx Cardiac Disorders: Yes - PULMONARY Hx Respiratory Disorders: Yes (has nebulizer machine at home) Hx Asthma: Yes Hx Bronchitis: Yes Hx Chronic Obstructive Pulmonary Disease (COPD): Yes Hx Pneumonia: Yes - NEUROLOGICAL Hx Migraine: Yes - HEENT Hx Macular Degeneration: Yes - RENAL Hx Chronic Kidney Disease: No - ENDOCRINE/METABOLIC Hx Endocrine Disorders: No - HEMATOLOGICAL/ONCOLOGICAL Hx Blood Disorders: Yes (blood transfusion) Hx Hepatitis C: Yes (IVDU) - INTEGUMENTARY Hx Dermatological Problems: Yes - MUSCULOSKELETAL/RHEUMATOLOGICAL Hx Musculoskeletal Disorders: Yes Hx Back Pain: Yes Hx Falls: No Other/Comment: SCOLIOSIS - GASTROINTESTINAL Hx Gastrointestinal Disorders: Yes - GENITOURINARY/GYNECOLOGICAL Hx Genitourinary Disorders: Yes Hx Urinary Tract Infection: Yes - PSYCHIATRIC Hx Psychophysiologic Disorder: Yes Hx Anxiety: Yes Hx Substance Use: No Other/Comment: hx ivdu/cocaine stopped 6 yrs ago on methadone program, smokes 1 ppd has not smoked in 4 days - SURGICAL HISTORY Other/Comment: right anterior neck SX for abcesses bx neg - ANESTHESIA Hx Anesthesia: Yes Hx Anesthesia Reactions: No Hx Malignant Hyperthermia: No Meds Allergies/Adverse Reactions: Allergies Allergy/AdvReac Type Severity Reaction Status Date / Time levofloxacin [From Levaquin] Allergy RASH Verified 03/11/18 17:15 Penicillins Allergy RASH Verified 03/11/18 17:15 azithromycin [From Zithromax] AdvReac RASH Verified 03/11/18 17:15 flexeril AdvReac RASH Uncoded 03/11/18 17:15 - Medications Medications: Current Medications Albuterol/Ipratropium (Duoneb 3 Mg/0.5 Mg (3 Ml) Ud) 3 ml IH Q2H PRN PRN Reason: Shortness of Breath Albuterol/Ipratropium (Duoneb 3 Mg/0.5 Mg (3 Ml) Ud) 3 ml IH [id number] [facility] Last Admin: 03/14/18 11:24 Dose: 3 ml Atovaquone (Mepron) 750 mg PO BID [facility] PRN Reason: Protocol Stop: 03/21/18 18:01 Last Admin: 03/14/18 11:03 Dose: 750 mg Clonazepam (Klonopin) 0.25 mg PO AMHS [facility] PRN Reason: Protocol Last Admin: 03/14/18 11:04 Dose: 0.25 mg Doxycycline Hyclate (Doryx) 100 mg PO Q12 [facility] PRN Reason: Protocol Stop: 03/21/18 22:01 Last Admin: 03/14/18 11:02 Dose: 100 mg Enoxaparin Sodium (Lovenox) 40 mg SC DAILY [facility] PRN Reason: Protocol Last Admin: 03/14/18 11:03 Dose: 40 mg Sodium Chloride (Sodium Chloride 0.9%) 1,000 mls @ 70 mls/hr IV .[id number] [facility] Last Admin: 03/13/18 00:00 Dose: 70 mls/hr Clindamycin Phosphate 600 mg/ (Sodium Chloride) 54 mls @ 102 mls/hr IVPB Q8 [facility] PRN Reason: Protocol Stop: 03/21/18 22:01 Last Admin: 03/14/18 06:37 Dose: 102 mls/hr Meropenem (Merrem Iv 1 Gm Premix) 50 mls @ 100 mls/hr IVPB Q8 [facility] PRN Reason: Protocol Stop: 03/21/18 22:01 Last Admin: 03/14/18 05:31 Dose: 100 mls/hr Ibuprofen (Motrin Tab) 800 mg PO TID PRN PRN Reason: Pain, moderate (4-7) Methadone HCl (Methadone) 150 mg PO DAILY [facility] Last Admin: 03/13/18 10:08 Dose: 150 mg Methylprednisolone (Solu-Medrol) 30 mg IVP Q12 [facility] Last Admin: 03/14/18 11:03 Dose: 30 mg Pantoprazole Sodium (Protonix Ec Tab) 40 mg PO 0600 [facility] Last Admin: 03/14/18 05:31 Dose: 40 mg Paroxetine HCl (Paxil) 10 mg PO HS [facility] Last Admin: 03/13/18 21:30 Dose: 10 mg Primaquine Phosphate (Primaquine) 26.3 mg PO DAILY [facility] PRN Reason: Protocol Stop: 03/22/18 10:01 Last Admin: 03/14/18 11:58 Dose: 26.3 mg Physical Exam - Constitutional Appears: Well, No Acute Distress - Head Exam Head Exam: ATRAUMATIC, NORMOCEPHALIC - Eye Exam Eye Exam: EOMI, Normal appearance - ENT Exam ENT Exam: Mucous Membranes Moist - Respiratory Exam Respiratory Exam: Clear to Auscultation Bilateral, NORMAL BREATHING PATTERN. absent: Decreased Breath Sounds, Rales, Rhonchi, Wheezes, Respiratory Distress, Stridor - Cardiovascular Exam Cardiovascular Exam: REGULAR RHYTHM, +S1, +S2. absent: Bradycardia, Tachycardia , Systolic Murmur - GI/Abdominal Exam GI & Abdominal Exam: Normal Bowel Sounds, Soft. absent: Diminished Bowel Sounds , Distended, Firm, Guarding, Tenderness - Extremities Exam Extremities exam: Positive for: normal inspection. Negative for: pedal edema, tenderness - Neurological Exam Neurological exam: Alert, Oriented x3 - Skin Skin Exam: Dry, Intact, Normal Color, Warm Results - Vital Signs Recent Vital Signs: Last Vital Signs Temp 98.3 F 03/14/18 06:00 Pulse 83 05/21/18 06:00 Resp 18 03/14/18 06:00 BP 111/78 03/14/18 06:00 Pulse Ox 97 03/14/18 06:00 - Labs Result Diagrams: 03/14/18 08:30 03/14/18 08:30 Labs: Laboratory Results - last 24 hr 03/14/18 03/14/18 08:30 08:30 WBC 6.0 D RBC 3.54 Hgb 9.3 L D Hct 30.1 L MCV 85.0 MCH 26.3 MCHC 30.9 L RDW 19.4 H Plt Count 82 L Manual Plt Count 100 L MPV 9.2 Sodium 141 Potassium 5.4 H Chloride 111 H Carbon Dioxide 24 Anion Gap 12 BUN 23 H Creatinine 0.9 Est GFR ( Amer) > 60 Est GFR (Non-Af Amer) > 60 Random Glucose 88 Calcium 8.5 Total Bilirubin 0.3 AST 674 H D ALT 268 H Alkaline Phosphatase 693 H D Total Protein 6.3 Albumin 2.6 L Globulin 3.7 Albumin/Globulin Ratio 0.7 L Assessment & Plan - Assessment and Plan (Free Text) Assessment: 37 year old female with PMH of heavy smoker, methadone dependent, HIV, end stage AIDS, T cell count less then 20, former drug abuser, hepatitis C, noncompliant, presents to the ED for pneumonia, found to have elevated LFT's most likely due to medication and hypoperfusion due to episode of low BP Plan: - LFTs were wnl on her last admission, increase could be contributed to medication including mortin and z sheila as well as episode fo low BP. - consider abd US to r/o gallbladder pathology - CK was within normal limits - trend LFTs, downtrending, continue to monitor - repeat INR in AM - continue PPI case seen and discussed with Dr. Centeno <Anne Centeno V - Last Filed: 03/15/18 00:06> Meds - Medications Medications: Current Medications Albuterol/Ipratropium (Duoneb 3 Mg/0.5 Mg (3 Ml) Ud) 3 ml IH Q2H PRN PRN Reason: Shortness of Breath Albuterol/Ipratropium (Duoneb 3 Mg/0.5 Mg (3 Ml) Ud) 3 ml IH [id number] [facility] Last Admin: 05/21/18 20:07 Dose: 3 ml Atovaquone (Mepron) 750 mg PO BID [facility] PRN Reason: Protocol Stop: 03/21/18 18:01 Last Admin: 03/14/18 18:02 Dose: 750 mg Doxycycline Hyclate (Doryx) 100 mg PO Q12 [facility] PRN Reason: Protocol Stop: 03/21/18 22:01 Last Admin: 03/14/18 21:22 Dose: 100 mg Enoxaparin Sodium (Lovenox) 40 mg SC DAILY [facility] PRN Reason: Protocol Last Admin: 03/14/18 11:03 Dose: 40 mg Sodium Chloride (Sodium Chloride 0.9%) 1,000 mls @ 70 mls/hr IV .[id number] [facility] Last Admin: 03/14/18 21:35 Dose: 70 mls/hr Clindamycin Phosphate 600 mg/ (Sodium Chloride) 54 mls @ 102 mls/hr IVPB Q8 [facility] PRN Reason: Protocol Stop: 03/21/18 22:01 Last Admin: 03/14/18 21:20 Dose: 102 mls/hr Meropenem (Merrem Iv 1 Gm Premix) 50 mls @ 100 mls/hr IVPB Q8 [facility] PRN Reason: Protocol Stop: 03/21/18 22:01 Last Admin: 03/14/18 21:22 Dose: 100 mls/hr Ibuprofen (Motrin Tab) 800 mg PO TID PRN PRN Reason: Pain, moderate (4-7) Lorazepam (Ativan) 1 mg PO BID [facility] PRN Reason: Protocol Last Admin: 03/14/18 18:02 Dose: 1 mg Methadone HCl (Methadone) 150 mg PO DAILY [facility] Last Admin: 03/13/18 10:08 Dose: 150 mg Methylprednisolone (Solu-Medrol) 30 mg IVP Q12 [facility] Last Admin: 03/14/18 21:23 Dose: 30 mg Pantoprazole Sodium (Protonix Ec Tab) 40 mg PO 0600 [facility] Last Admin: 03/14/18 05:31 Dose: 40 mg Paroxetine HCl (Paxil) 10 mg PO HS [facility] Last Admin: 03/14/18 21:23 Dose: 10 mg Primaquine Phosphate (Primaquine) 26.3 mg PO DAILY [facility] PRN Reason: Protocol Stop: 03/22/18 10:01 Last Admin: 03/14/18 11:58 Dose: 26.3 mg Results - Vital Signs Recent Vital Signs: Last Vital Signs Temp 98.1 F 03/14/18 23:23 Pulse 97 H 03/14/18 23:23 Resp 18 03/14/18 23:23 BP 102/65 03/14/18 23:23 Pulse Ox 95 03/14/18 23:23 - Labs Result Diagrams: 03/14/18 08:30 03/14/18 08:30 Labs: Laboratory Results - last 24 hr 03/13/18 03/14/18 03/14/18 07:00 08:30 08:30 WBC 6.0 D RBC 3.54 Hgb 9.3 L D Hct 30.1 L MCV 85.0 MCH 26.3 MCHC 30.9 L RDW 19.4 H Plt Count 82 L Manual Plt Count 100 L MPV 9.2 Sodium 141 Potassium 5.4 H Chloride 111 H Carbon Dioxide 24 Anion Gap 12 BUN 23 H Creatinine 0.9 Est GFR ( Amer) > 60 Est GFR (Non-Af Amer) > 60 Random Glucose 88 Calcium 8.5 Total Bilirubin 0.3 AST 674 H D ALT 268 H Alkaline Phosphatase 693 H D Total Protein 6.3 Albumin 2.6 L Globulin 3.7 Albumin/Globulin Ratio 0.7 L Cryptococcus Ag Screen Not detected Attending/Attestation - Attestation I have personally seen and examined this patient.: Yes I have fully participated in the care of the patient.: Yes I have reviewed all pertinent clinical information: Yes Notes (Text): p 03/15/18 00:06
--- NOTE | 2018-03-14 15:41 | US ---
HISTORY: abnormal lfts COMPARISON: None. TECHNIQUE: Sonographic evaluation of the right upper quadrant of the abdomen. FINDINGS: LIVER: Measures 19.5 cm in length. Increased echogenicity of the liver parenchyma. No mass. No intrahepatic bile duct dilatation. GALLBLADDER: Unremarkable. No gallstones. COMMON BILE DUCT: Measures 6.3 mm. No stones. No dilatation. PANCREAS: Unremarkable as visualized. No mass. No ductal dilatation. RIGHT KIDNEY: Measures 11.3 x 3.8 x 6.0 cm in length. Normal echogenicity. No calculus, mass, or hydronephrosis. AORTA: No aneurysmal dilatation. IVC: Unremarkable. OTHER FINDINGS: None . IMPRESSION: Fatty infiltration of the liver. Distended gallbladder with no stones
[2018-03-14] MEDS ORDERED: Sod Polystyrene Sulf 15 gm/60 ml Susp PO ONE (16:04)
--- NOTE | 2018-03-14 16:12 | HP ---
DATE OF EXAM: 03/12/2018 MAIN REASON FOR ADMISSION: Swelling of both lower extremities and dyspnea. HISTORY OF PRESENT ILLNESS: The patient was seen day before in the office, complaining of both lower extremities edema and mild dyspnea. The patient was advised to go to the ER for evaluations. She had a venous Doppler which was negative; however, her saturation is 88% on room air. She was admitted for further evaluation. The patient does have a history of advanced HIV, noncompliance with her AIDS medications. 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 She has a history of smoking and she has been admitted multiple times for recurrent pneumonias and at this time, she came in with short of breath, bilateral rhonchi. Denied any fever or chills, any nausea, any vomiting. The patient also currently taking methadone 150 daily. PAST MEDICAL HISTORY: As I said, HIV, noncompliant with medications. She does have history of drug abuse, on methadone maintenance program as outpatient. She also have history of COPD, recurrent pneumonia, poor nutrition status. SOCIAL HISTORY: She lives by herself. She has a son. She is not actively using any drugs. She is on methadone. She does not use any alcohol. She quit smoking years ago. ALLERGIES: SHE HAS MULTIPLE ALLERGIES TO MEDICATIONS. SHE IS ALLERGIC TO LEVOFLOXACIN, PENICILLIN, AZITHROMYCIN, AND FLEXERIL. HOME MEDICATIONS: Right now, Protonix, Pepcid, ibuprofen, methadone, Ventolin nebulizer treatment. REVIEW OF SYSTEMS: As in the present illness dyspnea. Appetite is poor. She always have some sort of anxiety. No other chronic cough. Dyspnea, anxiety, and poor nutrition. LABORATORY STUDY: White count 3.2, hemoglobin 12, hematocrit 37.4, platelets 80. CBC shows sodium 146, potassium 4.3, chloride 110, bicarb 26. BUN 20, creatinine 0.9. She does have abnormal liver function test. AST, ALT, alk phos, lactate dehydrogenase, and total bilirubin are elevated. Her C-reactive protein is very high and procalcitonin also is very high. I will admit the patient. IMPRESSION AND PLAN: Acute respiratory distress. We will admit the patient on steroid, IV antibiotics. We will get an ID consult and we will follow other labs, and we will continue all the other medications. We will get Dr. Barajas, Pulmonary consult; Dr. Chou, ID consultations; and Psychiatric consultations. We will repeat the labs. Currently, we will admit the patient and give her doxycycline IV and will see how she do. The patient is otherwise stable. No abdominal pain. No tenderness. Macario Carter MD
--- NOTE | 2018-03-14 16:59 | PN ---
DATE: 03/14/2018 FOLLOWUP NOTE SUBJECTIVE: Shortly, the patient is a 37-year-old female with reported history of HIV. The patient was admitted on the medical side for pneumonia. Psych consult was called for evaluation of possible depression and anxiety. The patient also has history of opioid addiction. The patient is on methadone 150 mg daily from [facility]. The patient initially was seen by Dr. Gutierrez. Paxil was started. Klonopin was started, but considering the fact that the patient has liver enzymes elevated, this appeals writer will discontinue Klonopin and will start Ativan 1 mg twice a day. The patient presented to be cachectic, sick of hearing. The patient is anxious. As per nursing staff report, methadone was held because the patient had some liver enzymes elevated. The medical team felt that probably it has to be on hold. The patient was overall pleasant, but anxious. The patient reported that she does not feel depressed, but anxious. The patient reported that she tolerated Paxil well at the nighttime, willing to take Ativan instead of Klonopin. The patient denied hearing voices, denied seeing things. Denied paranoid ideation. The patient does not appear to be psychotic. OBJECTIVE: VITAL SIGNS: This appeals writer reviewed vital signs. Vital signs seems to be stable. Temperature 98.2, pulse is 81, blood pressure 108/77, respirations 18, oxygen saturation is 94%. MEDICATIONS: Reviewed. DuoNeb, Mepron, Klonopin 0.25 mg twice a day will be discontinued, doxycycline was started, Lovenox, Motrin, meropenem, methadone 150 mg daily, Solu-Medrol, Protonix, Paxil 10 mg at the nighttime, primaquine, sodium chloride, and Ativan was started. LABORATORY DATA: Reviewed. Hematology reviewed. Hemoglobin and hematocrit 9.3 and 30 respectively. Coagulation reviewed. Chemistry reviewed. Potassium is 5.4, chloride 111. AST and ALT trending down, 674 and 268 respectively. Alkaline phosphatase is trending down. Lactate, creatine kinase going down. C-reactive protein was high at 10.91. Albumin is low. Procalcitonin is 0.94 which is elevated. Labs reviewed. The patient had electrocardiogram today. Normal sinus rhythm. The patient also had gallbladder ultrasound today. Fatty infiltration of the liver, distended gallbladder with no stones. The patient was seen by Infectious Disease as well. MENTAL STATUS EXAMINATION: The patient appears to be cachectic, very thin built, anxious-looking female, intermittent eye contact. Speech was low volume, underproductive. Mood described as I feel anxious. Affect was constricted, mood congruent. Thought process seems to be coherent, goal directed. Thought content: The patient denied visual, auditory, or tactile hallucinations. Denied paranoid ideation. The patient denied thoughts of harming herself or others. Denied intent or plan. Insight and judgment seem to be fair. Impulses are well controlled. IMPRESSION: Most likely, mood disorder due to general medical condition. The patient has long history of opioid addition, but a long sustained remission on methadone. PLAN: Continue current management. Klonopin discontinued. Ativan was started. Paxil was started by Dr. Gutierrez. We will follow up and advise accordingly. Thank you very much for letting me participate in the care of your patient. Celia Cho MD
--- NOTE | 2018-03-14 18:52 | CP.PCM.PN ---
Subjective - Date & Time of Evaluation Date of Evaluation: 03/14/18 Time of Evaluation: 11:40 - Subjective Subjective: Patient is breathing better, no fevers, not in distress. Objective - Vital Signs/Intake and Output Vital Signs (last 24 hours): Temp Pulse Resp BP Pulse Ox 98.3 F 83 18 111/78 97 03/14/18 06:00 03/14/18 06:00 03/14/18 06:00 03/14/18 06:00 03/14/18 06:00 Intake and Output: 03/14/18 03/14/18 06:59 18:59 Intake Total 720 Balance 720 - Medications Medications: Current Medications Albuterol/Ipratropium (Duoneb 3 Mg/0.5 Mg (3 Ml) Ud) 3 ml IH Q2H PRN PRN Reason: Shortness of Breath Albuterol/Ipratropium (Duoneb 3 Mg/0.5 Mg (3 Ml) Ud) 3 ml IH [id number] [facility] Last Admin: 03/14/18 08:21 Dose: 3 ml Atovaquone (Mepron) 750 mg PO BID [facility] PRN Reason: Protocol Stop: 03/21/18 18:01 Last Admin: 03/13/18 17:24 Dose: 750 mg Clonazepam (Klonopin) 0.25 mg PO AMHS [facility] PRN Reason: Protocol Last Admin: 03/13/18 21:29 Dose: 0.25 mg Doxycycline Hyclate (Doryx) 100 mg PO Q12 [facility] PRN Reason: Protocol Stop: 03/21/18 22:01 Last Admin: 03/13/18 21:30 Dose: 100 mg Enoxaparin Sodium (Lovenox) 40 mg SC DAILY [facility] PRN Reason: Protocol Last Admin: 03/13/18 10:09 Dose: 40 mg Sodium Chloride (Sodium Chloride 0.9%) 1,000 mls @ 70 mls/hr IV .[id number] [facility] Last Admin: 03/13/18 00:00 Dose: 70 mls/hr Clindamycin Phosphate 600 mg/ (Sodium Chloride) 54 mls @ 102 mls/hr IVPB Q8 [facility] PRN Reason: Protocol Stop: 03/21/18 22:01 Last Admin: 03/14/18 06:37 Dose: 102 mls/hr Meropenem (Merrem Iv 1 Gm Premix) 50 mls @ 100 mls/hr IVPB Q8 [facility] PRN Reason: Protocol Stop: 03/21/18 22:01 Last Admin: 03/14/18 05:31 Dose: 100 mls/hr Ibuprofen (Motrin Tab) 800 mg PO TID PRN PRN Reason: Pain, moderate (4-7) Methadone HCl (Methadone) 150 mg PO DAILY [facility] Last Admin: 03/13/18 10:08 Dose: 150 mg Methylprednisolone (Solu-Medrol) 30 mg IVP Q12 [facility] Last Admin: 03/13/18 21:30 Dose: 30 mg Pantoprazole Sodium (Protonix Ec Tab) 40 mg PO 0600 [facility] Last Admin: 03/14/18 05:31 Dose: 40 mg Paroxetine HCl (Paxil) 10 mg PO HS [facility] Last Admin: 03/13/18 21:30 Dose: 10 mg Primaquine Phosphate (Primaquine) 26.3 mg PO DAILY [facility] PRN Reason: Protocol Stop: 03/22/18 10:01 Last Admin: 03/13/18 10:09 Dose: 26.3 mg - Labs Labs: 03/14/18 08:30 03/14/18 08:30 PT 9.3 SECONDS (9.4-12.5) L 03/11/18 17:40 INR 0.82 (0.93-1.08) L 03/11/18 17:40 - Constitutional Appears: Chronically Ill - Head Exam Head Exam: NORMAL INSPECTION - ENT Exam ENT Exam: Mucous Membranes Moist - Neck Exam Neck Exam: absent: Meningismus - Respiratory Exam Respiratory Exam: Decreased Breath Sounds - Cardiovascular Exam Cardiovascular Exam: +S1, +S2 - GI/Abdominal Exam GI & Abdominal Exam: Soft. absent: Tenderness Assessment and Plan - Assessment and Plan (Free Text) Plan: Assessment sepsis due to bacterial pneumonia, R/O pneumocystis pneumonia R/O atypical pneumonia HIV/AIDS with last CD4 count <20, non-compliant with her meds COPD chronic back pain history of IVDA hepatitis C infection Plan continue Doxycycline, Merrem, Clindamycin and Primaquine (day 4) follow up beta glucan, serum Crypt Ag, urine Legionella Ag and CMV PCR Will continue to monitor clinically patient will need to follow up with HIV provider as outpatient
[2018-03-14] MEDS: Sodium Chloride 0.9% 1,000 ML IV SCH (21:35)
--- NOTE | 2018-03-15 00:19 | CON ---
DATE: 03/14/2018 LOCATION: The patient in room 578, bed 2. REASON FOR CONSULTATION: Shortness of breath, pulmonary hypertension, COPD, on echo RV dilated and RV systolic function reduced. HISTORY OF PRESENT ILLNESS: Patient is a 37-year-old female, who is known to have HIV positive, COPD, asthma, bronchitis, pneumonia, hepatitis C; admitted with a history of 4 days' duration of cough and expectoration and fever at home. Patient denied any chest pain. She says that on minimal exertion, she gets shortness of breath. Patient, on admission, on CAT scan, found to have infiltrates. Patient also has yellowish expectoration with cough. PAST MEDICAL HISTORY: As mentioned before, patient is known to have HIV, COPD, asthma, bronchitis, previously had pneumonia, hepatitis C, back pain, scoliosis, history of migraine, anxiety, bipolar disorder, tobacco abuse, heroin and cocaine abuse. Patient is on methadone program. PAST SURGICAL HISTORY: Patient had surgery in the neck for lymph node for biopsy, which she was told was not significant. PERSONAL HISTORY: She said she used to smoke one pack a day and now smokes 8 cigarettes a day despite everybody told her multiple times to stop smoking. Denies drinking. She is on methadone program, taking methadone 150 mg p.o. daily. ALLERGIES: DENIES ALLERGIES. MEDICATIONS AT HOME: Patient was on Protonix, Motrin, Pepcid, and albuterol for her COPD. FAMILY HISTORY: She denies any family history of disease. She says she has not seen her father in 9 years. PHYSICAL EXAMINATION: VITAL SIGNS: Blood pressure 111/78, respiration 18, pulse 83, temperature 98.3. HEENT: Head: Normocephalic. Eyes: Pupils normal. Conjunctivae, slightly pale. NECK: JVP low. Carotids equal. THORAX: AP diameter normal. LUNGS: Bilateral crackles in the lungs. CARDIOVASCULAR: S1 and S2. No rub. ABDOMEN: Soft. No tenderness. No organomegaly. Bowel sounds normal. EXTREMITIES: She has 1+ edema in both legs. LABORATORY DATA: WBC on admission is 3.2, now it is 6; hemoglobin on admission 12, now on 9.3; hematocrit on admission 37.4, now 30.1; platelets 82. Granulocytes 73.6; lymphocytes 15.7, which is low. Platelet on admission was 80, now is 82. Manual platelet count is 100. Sodium 141; potassium on admission was 4.3, today is 5.4; BUN 23; creatinine 0.9. Liver enzymes, which were elevated on admission, bilirubin was 1.6, now is 0.3; AST 1794, now is 674; and ALT was 561, now 268. Alkaline phosphatase was 1272, now is 693. LDH 1052, now is 821. Total protein 6.3, albumin 2.6. PT 9.3, INR 0.82. D-dimer 294. EKG shows sinus rhythm and although it is read as QT prolonged, but actually QT still seems to be within normal range, nonspecific ST-T changes. Chest x-ray showed interstitial lung disease, unchanged from previous x-ray. Chest CT scan showed peribronchial thickening, lower airway disease, multifocal peripheral infiltrates, seen previously, shows some improvement suggestive of infectious/inflammatory process. Patient had echocardiogram on 02/08/2018, which shows LV ejection fraction 51%, which is low normal; left ventricle was normal size; normal wall thickness; systolic function as mentioned above with low normal ejection fraction; right ventricle is moderately dilated; RV systolic function is moderately reduced; mild tricuspid regurgitation present; [id number] pulmonary hypertension with RVSP normal at 46 mmHg; mild mitral regurgitation. DIAGNOSES: Bacterial pneumonia, human immunodeficiency virus positive, chronic obstructive pulmonary disease, asthma, bronchitis, hepatitis C, abnormal liver function tests, [id number] pulmonary hypertension, right ventricular systolic function decreased, right ventricular enlargement, anxiety, bipolar disorder, migraine, scoliosis, patient on methadone program, past history of heroin and cocaine abuse, patient also has had sepsis. PLAN: We will continue clindamycin as ordered by Dr. Chou at 600 mg every 8 hours, doxycycline 100 mg every 12 hours, albuterol/ipratropium hand nebulizer therapy, Lovenox 40 mg subcu daily, Mepron 750 mg p.o. b.i.d., meropenem 50 mL IV every 8 hours, methadone 150 mg p.o. daily, ibuprofen 800 mg p.o. t.i.d., Paxil 10 mg at bedtime, primaquine 26.3 mg p.o. daily, Protonix 40 daily, IV fluid sodium chloride 70 mL an hour, methylprednisolone 30 mg p.o. every 12 hours. We will repeat CBC, SMA-7, and TSH in the morning. In the meantime, we will continue present therapy. Cara Umaña MD
--- NOTE | 2018-03-15 01:35 | CON ---
DATE: 03/14/2018 PULMONARY CONSULTATION REFERRING PHYSICIAN: Ray Lopes MD. REASON FOR CONSULTATION: Chronic obstructive lung disease, HIV positive. HISTORY OF PRESENT ILLNESS: This is a 37-year-old female known to me from previous admission, has a chronic obstructive lung disease, end-stage AIDS, noncompliant with the followup of medication, actively smokes, also history of methadone dependent, hepatitis C, arthritis, history of IV drug abuse in the past, admitted with cough, shortness of breath, leukopenia. Started on steroids, antibiotics. Seen by Infectious Diseases, on nebulizer treatment, mother is at bedside, feels a little better since admission. PAST MEDICAL HISTORY: As per history of present illness. ALLERGIES: TO PENICILLIN, AZITHROMYCIN, LEVAQUIN, FLEXERIL. SOCIAL HISTORY: She is active smoker. Denies any active IV drug use. She is on methadone. Denies any alcohol use. FAMILY HISTORY: No significant cardiopulmonary disease reported. MEDICATIONS: She is on Ativan 1 mg twice a day, clindamycin 600 mg every 8 hours, doxycycline 100 mg twice a day, DuoNeb every 2 hours p.r.n. and every 4 hours [id number], Lovenox 40 mg daily, Mepron 750 mg twice a day, meropenem 1 g every 8 hours, methadone 150 mg daily, Motrin 800 mg three times a day p.r.n., Paxil 10 mg daily, primaquine 26.3 daily, Protonix 40 mg daily, IV fluid normal saline 70 mL per hour, Solu-Medrol 30 mg every 12 hours. REVIEW OF SYSTEMS: No headache, no rhinitis. Does have cough, shortness of breath. Feels better since admission. No nausea, no vomiting, no diarrhea. No leg pain, no leg swelling. PHYSICAL EXAMINATION: GENERAL: Mild distress. VITAL SIGNS: Temperature is 98, heart rate 81, respiratory rate is 20, blood pressure 108/77, pulse ox 94% on nasal cannula. HEENT: Moist mucous membrane. No ulcer or thrush noted. NECK: Supple. No JVD. LUNGS: Have scattered rhonchi and wheezing. HEART: S1 and S2. ABDOMEN: Soft, nontender. No organomegaly. EXTREMITIES: There is no edema. NEUROLOGICAL: Awake and alert. Follows simple command. LABORATORY DATA: Shows hemoglobin 9.3, hematocrit 30.1, WBC 6, platelet count is 82. INR 0.82, D-dimer 294. VBG on admission shows pH 7.21, pCO2 of 69, O2 of 30. Sodium 141, potassium 5.4, chloride 111, bicarbonate 24, BUN is 23, creatinine 0.9, glucose 88, calcium 8.5. AST 674, ALT 267, alk phos is 693, albumin is 2.6. Microbiology: Blood culture has been negative. Has a CAT scan of the chest done, which shows no active pulmonary disease. Has a peribronchial thickening, lower airway disease, detected multifocal peripheral infiltrate, had been improved since previous CT; also has a gallbladder ultrasound done, which shows fatty infiltrate of the liver, distended gallbladder with no stone. IMPRESSION AND PLAN: Acquired immune deficiency syndrome, chronic obstructive lung disease, bronchiolitis, substance abuse, methadone dependent, noncompliant. Patient is seen by Infectious Diseases. Continue antibiotics as per ID. Pulmonary point of view, continue IV steroids, inhaled bronchodilator. Patient urged to stop smoking. Overall, poor prognosis. Patient does not follow up with ID clinic on antiviral medications. Thank you and we will follow with you. Cara Barajas MD
[2018-03-15] MEDS: Albuterol-Ipratrop 3 mg / 0.5 (3 ml) UD IH SCH ×6 (02:15→20:33)
[2018-03-15] MEDS: Meropenem IV 1 gm in NS 50 ML IVPB SCH ×3 (05:14→21:14)
--- NOTE | 2018-03-15 07:14 | CP.PCM.PN ---
Subjective - Date & Time of Evaluation Date of Evaluation: 03/15/18 Time of Evaluation: 06:35 - Subjective Subjective: Lying in bed, sleeping but easily awaken, denies shortness of breath, denies chest pain, feels okay Reason for consultation and follow up: Cardiac evaluation, shortness of breath, pulmonary hypertension,heavy smoker, HIV positive,on Methadone treatment, history of cocaine and heroine abuse, end stage AIDS,Hepatitis C, pneumonia, COPD Seen and examined by me and Dr. Veliz Objective - Vital Signs/Intake and Output Vital Signs (last 24 hours): Temp Pulse Resp BP Pulse Ox 98.1 F 97 H 18 102/65 95 03/14/18 23:23 03/14/18 23:23 03/14/18 23:23 03/14/18 23:23 03/14/18 23:23 Intake and Output: 03/15/18 03/15/18 06:59 18:59 Intake Total 240 Balance 240 - Medications Medications: Current Medications Albuterol/Ipratropium (Duoneb 3 Mg/0.5 Mg (3 Ml) Ud) 3 ml IH Q2H PRN PRN Reason: Shortness of Breath Albuterol/Ipratropium (Duoneb 3 Mg/0.5 Mg (3 Ml) Ud) 3 ml IH [id number] [facility] Last Admin: 03/15/18 04:30 Dose: Not Given Atovaquone (Mepron) 750 mg PO BID [facility] PRN Reason: Protocol Stop: 03/21/18 18:01 Last Admin: 03/14/18 18:02 Dose: 750 mg Doxycycline Hyclate (Doryx) 100 mg PO Q12 [facility] PRN Reason: Protocol Stop: 03/21/18 22:01 Last Admin: 03/14/18 21:22 Dose: 100 mg Enoxaparin Sodium (Lovenox) 40 mg SC DAILY [facility] PRN Reason: Protocol Last Admin: 03/14/18 11:03 Dose: 40 mg Sodium Chloride (Sodium Chloride 0.9%) 1,000 mls @ 70 mls/hr IV .[id number] [facility] Last Admin: 03/14/18 21:35 Dose: 70 mls/hr Clindamycin Phosphate 600 mg/ (Sodium Chloride) 54 mls @ 102 mls/hr IVPB Q8 [facility] PRN Reason: Protocol Stop: 03/21/18 22:01 Last Admin: 03/15/18 05:09 Dose: 102 mls/hr Meropenem (Merrem Iv 1 Gm Premix) 50 mls @ 100 mls/hr IVPB Q8 [facility] PRN Reason: Protocol Stop: 03/21/18 22:01 Last Admin: 03/15/18 05:14 Dose: 100 mls/hr Ibuprofen (Motrin Tab) 800 mg PO TID PRN PRN Reason: Pain, moderate (4-7) Lorazepam (Ativan) 1 mg PO BID [facility] PRN Reason: Protocol Last Admin: 03/14/18 18:02 Dose: 1 mg Methadone HCl (Methadone) 150 mg PO DAILY [facility] Last Admin: 03/13/18 10:08 Dose: 150 mg Methylprednisolone (Solu-Medrol) 30 mg IVP Q12 [facility] Last Admin: 03/14/18 21:23 Dose: 30 mg Pantoprazole Sodium (Protonix Ec Tab) 40 mg PO 0600 [facility] Last Admin: 03/14/18 05:31 Dose: 40 mg Paroxetine HCl (Paxil) 10 mg PO HS [facility] Last Admin: 03/14/18 21:23 Dose: 10 mg Primaquine Phosphate (Primaquine) 26.3 mg PO DAILY [facility] PRN Reason: Protocol Stop: 03/22/18 10:01 Last Admin: 03/14/18 11:58 Dose: 26.3 mg - Labs Labs: 03/14/18 08:30 03/14/18 08:30 PT 9.3 SECONDS (9.4-12.5) L 03/11/18 17:40 INR 0.82 (0.93-1.08) L 03/11/18 17:40 - Constitutional Appears: No Acute Distress, Cachectic - ENT Exam ENT Exam: Mucous Membranes Dry - Respiratory Exam Respiratory Exam: Decreased Breath Sounds, Rhonchi, NORMAL BREATHING PATTERN Additional comments: NC 2l/min - Cardiovascular Exam Cardiovascular Exam: +S1, +S2 - GI/Abdominal Exam GI & Abdominal Exam: Soft, Normal Bowel Sounds - Extremities Exam Extremities Exam: Normal Capillary Refill Additional comments: 1-2+ edema - Neurological Exam Neurological Exam: Alert, Awake, Oriented x3 - Psychiatric Exam Psychiatric exam: Normal Affect, Normal Mood - Skin Skin Exam: Intact, Normal Color, Warm Assessment and Plan - Assessment and Plan (Free Text) Assessment: A 37 year old female who came in to the ER due shortness of breath and leg swelling. History of pneumocystis carinii,heavy smoker, HIV positive,on Methadone treatment, history of cocaine and heroine abuse, end stage AIDS, Hepatitis C, pneumonia, COPD. Plan: CT scan of chest showed infiltrates Pneumonia ID and Pulmonary on consult On antibiotics as ordered Patient is non compliant at home Continue current treatment Continue current medications Heart rate and blood pressure stable Will follow up PLan and treatment discussed with Dr. Veliz
[2018-03-15] MEDS: Pantoprazole 40 mg EC Tab PO SCH (07:39)
[2018-03-15 07:58] LABS: GRAN # 3.01 (1.4-6.5); GRAN % 81.1 % (50.0-68.0); HEMOGLOBIN 9.1 g/dL (12.0-16.0); LYMPH # 0.4 (1.2-3.4); MEAN CELL VOLUME 84.2 fl (80.0-105.0); MEAN CORPUSCULAR HEMOGLOBIN 26.6 pg (25.0-35.0); MEAN CORPUSCULAR HGB CONC 31.6 g/dl (31.0-37.0); MONO # 0.3 (0.1-0.6); MONO % 8.9 % (1.0-6.0); RBC 3.42 10^6/uL (3.5-6.1); RED CELL DISTRIBUTION WIDTH 19.1 % (11.5-14.5); WHITE BLOOD COUNT 3.7 10^3/ul (4.5-11.0)
[2018-03-15 08:01] LABS: BLOOD UREA NITROGEN 22 mg/dL (7-21); CALCIUM 8.5 mg/dL (8.4-10.5); GFR AFRICAN-AMERICAN > 60; GFR NON-AFRICAN AMERICAN > 60
[2018-03-15 08:05] LABS: INR 0.85 (0.93-1.08); PROTHROMBIN TIME 9.7 SECONDS (9.4-12.5)
[2018-03-15 08:48] LABS: ALBUMIN 2.7 g/dL (3.0-4.8); ALT/SGPT 225 U/L (7-56); AST/SGOT 425 U/L (14-36); BILIRUBIN,DIRECT 0.3 mg/dL (0.0-0.4)
[2018-03-15 09:02] LABS: ALB/GLOB RATIO 0.8 (1.1-1.8)
[2018-03-15] MEDS: Primaquine 26.3 mg Tab PO SCH (10:38)
[2018-03-15] MEDS: MethylPREDNISolone 40 mg Vial IVP SCH ×2 (10:38→22:24)
[2018-03-15] MEDS: Magnesium Oxide 400 mg Tab UD PO SCH ×2 (10:39→18:01)
[2018-03-15] MEDS: Enoxaparin 40 mg Syringe SC SCH (10:39)
[2018-03-15] MEDS: Atovaquone 750 mg/5 ml Susp UD PO SCH ×2 (10:40→18:01)
--- NOTE | 2018-03-15 11:36 | CP.PCM.PN ---
<Judy Fitzpatrick - Last Filed: 03/16/18 07:23> Subjective - Date & Time of Evaluation Date of Evaluation: 03/15/18 Time of Evaluation: 10:30 - Subjective Subjective: PGY-[address] Centeno Patient seen and examined at bedside. No acute distress. Patient states that she is shaking, denies fever, chills. Patient denies any pain. She report improving cough. She denies abd pain, n/v, diarrhea. She states that she is tolerating diet. Objective - Vital Signs/Intake and Output Vital Signs (last 24 hours): Temp Pulse Resp BP Pulse Ox 98.6 F 81 20 117/80 96 03/15/18 08:43 03/15/18 08:43 03/15/18 08:43 03/15/18 08:43 03/15/18 08:43 Intake and Output: 03/15/18 03/15/18 06:59 18:59 Intake Total 1080 Balance 1080 - Medications Medications: Current Medications Albuterol/Ipratropium (Duoneb 3 Mg/0.5 Mg (3 Ml) Ud) 3 ml IH Q2H PRN PRN Reason: Shortness of Breath Albuterol/Ipratropium (Duoneb 3 Mg/0.5 Mg (3 Ml) Ud) 3 ml IH [id number] [facility] Last Admin: 03/15/18 11:12 Dose: 3 ml Atovaquone (Mepron) 750 mg PO BID [facility] PRN Reason: Protocol Stop: 03/21/18 18:01 Last Admin: 03/15/18 10:40 Dose: 750 mg Doxycycline Hyclate (Doryx) 100 mg PO Q12 [facility] PRN Reason: Protocol Stop: 03/21/18 22:01 Last Admin: 03/15/18 10:39 Dose: 100 mg Enoxaparin Sodium (Lovenox) 40 mg SC DAILY [facility] PRN Reason: Protocol Last Admin: 03/15/18 10:39 Dose: 40 mg Sodium Chloride (Sodium Chloride 0.9%) 1,000 mls @ 70 mls/hr IV .[id number] [facility] Last Admin: 03/14/18 21:35 Dose: 70 mls/hr Clindamycin Phosphate 600 mg/ (Sodium Chloride) 54 mls @ 102 mls/hr IVPB Q8 [facility] PRN Reason: Protocol Stop: 03/21/18 22:01 Last Admin: 03/15/18 05:09 Dose: 102 mls/hr Meropenem (Merrem Iv 1 Gm Premix) 50 mls @ 100 mls/hr IVPB Q8 [facility] PRN Reason: Protocol Stop: 03/21/18 22:01 Last Admin: 03/15/18 05:14 Dose: 100 mls/hr Ibuprofen (Motrin Tab) 800 mg PO TID PRN PRN Reason: Pain, moderate (4-7) Lorazepam (Ativan) 1 mg PO BID [facility] PRN Reason: Protocol Last Admin: 03/15/18 11:28 Dose: 1 mg Lorazepam (Ativan) 1 mg PO HS [facility] PRN Reason: Protocol Magnesium Oxide (Mag-Ox) 400 mg PO BID [facility] Stop: 03/16/18 23:59 Last Admin: 03/15/18 10:39 Dose: 400 mg Methadone HCl (Methadone) 150 mg PO DAILY [facility] Last Admin: 03/15/18 10:39 Dose: 150 mg Methylprednisolone (Solu-Medrol) 30 mg IVP Q12 [facility] Last Admin: 03/15/18 10:38 Dose: 30 mg Pantoprazole Sodium (Protonix Ec Tab) 40 mg PO 0600 [facility] Last Admin: 03/15/18 07:39 Dose: 40 mg Paroxetine HCl (Paxil) 10 mg PO HS [facility] Last Admin: 03/14/18 21:23 Dose: 10 mg Primaquine Phosphate (Primaquine) 26.3 mg PO DAILY [facility] PRN Reason: Protocol Stop: 03/22/18 10:01 Last Admin: 03/15/18 10:38 Dose: 26.3 mg - Labs Labs: 03/15/18 07:00 03/15/18 07:00 PT 9.7 SECONDS (9.4-12.5) 03/15/18 07:00 INR 0.85 (0.93-1.08) L 03/15/18 07:00 - Constitutional Appears: Well, No Acute Distress - Head Exam Head Exam: ATRAUMATIC, NORMOCEPHALIC - Eye Exam Eye Exam: EOMI, Normal appearance - ENT Exam ENT Exam: Mucous Membranes Moist - Respiratory Exam Respiratory Exam: Clear to Ausculation Bilateral, NORMAL BREATHING PATTERN. absent: Decreased Breath Sounds, Rales, Rhonchi, Wheezes, Respiratory Distress - Cardiovascular Exam Cardiovascular Exam: REGULAR RHYTHM, +S1, +S2. absent: Bradycardia, Tachycardia , Murmur - GI/Abdominal Exam GI & Abdominal Exam: Soft, Normal Bowel Sounds. absent: Distended, Firm, Guarding, Tenderness - Extremities Exam Extremities Exam: Normal Inspection. absent: Pedal Edema, Tenderness - Neurological Exam Neurological Exam: Alert, Awake, Oriented x3 - Skin Skin Exam: Dry, Intact, Normal Color, Warm Assessment and Plan - Assessment and Plan (Free Text) Assessment: 37 year old female with PMH of heavy smoker, methadone dependent, HIV, end stage AIDS, T cell count less then 20, former drug abuser, hepatitis C, noncompliant, presents to the ED for pneumonia, found to have elevated LFT's most likely due to medication and hypoperfusion due to episode of low BP Plan: - LFTs were wnl on her last admission, increase could be contributed to medication including motrin and z sheila as well as episode fo low BP. - US of abd ahoed fatty liver, distended gallbladder, no stones - CK was within normal limits - trend LFTs, continue to downtrending, continue to monitor - repeat INR is stable - continue PPI case seen and discussed with Dr. Centeno <Anne Centeno V - Last Filed: 03/17/18 00:00> Objective - Vital Signs/Intake and Output Vital Signs (last 24 hours): Temp Pulse Resp BP Pulse Ox 98.8 F 81 18 112/75 94 L 03/16/18 22:00 03/16/18 22:00 03/16/18 22:00 03/16/18 22:00 03/16/18 22:00 Intake and Output: 03/16/18 03/17/18 18:59 06:59 Intake Total 600 500 Output Total 2 Balance 600 498 - Medications Medications: Current Medications Albuterol/Ipratropium (Duoneb 3 Mg/0.5 Mg (3 Ml) Ud) 3 ml IH Q2H PRN PRN Reason: Shortness of Breath Albuterol/Ipratropium (Duoneb 3 Mg/0.5 Mg (3 Ml) Ud) 3 ml IH [id number] [facility] Last Admin: 03/16/18 21:27 Dose: 3 ml Atovaquone (Mepron) 750 mg PO BID [facility] PRN Reason: Protocol Stop: 03/21/18 18:01 Last Admin: 03/16/18 17:03 Dose: 750 mg Clonazepam (Klonopin) 0.5 mg PO BID [facility] PRN Reason: Protocol Last Admin: 03/16/18 17:03 Dose: 0.5 mg Clonazepam (Klonopin) 0.5 mg PO HS PRN; Protocol PRN Reason: anxiety/insomnia Doxycycline Hyclate (Doryx) 100 mg PO Q12 [facility] PRN Reason: Protocol Stop: 03/21/18 22:01 Last Admin: 03/16/18 21:25 Dose: 100 mg Enoxaparin Sodium (Lovenox) 40 mg SC DAILY [facility] PRN Reason: Protocol Last Admin: 03/16/18 10:11 Dose: 40 mg Sodium Chloride (Sodium Chloride 0.9%) 1,000 mls @ 70 mls/hr IV .[id number] [facility] Last Admin: 03/16/18 17:06 Dose: 70 mls/hr Clindamycin Phosphate 600 mg/ (Sodium Chloride) 54 mls @ 102 mls/hr IVPB Q8 [facility] PRN Reason: Protocol Stop: 03/21/18 22:01 Last Admin: 03/16/18 21:18 Dose: 102 mls/hr Meropenem (Merrem Iv 1 Gm Premix) 50 mls @ 100 mls/hr IVPB Q8 [facility] PRN Reason: Protocol Stop: 03/21/18 22:01 Last Admin: 03/16/18 22:25 Dose: 100 mls/hr Ibuprofen (Motrin Tab) 800 mg PO TID PRN PRN Reason: Pain, moderate (4-7) Last Admin: 03/15/18 20:22 Dose: 800 mg Methadone HCl (Methadone) 140 mg PO DAILY [facility] Last Admin: 03/16/18 10:10 Dose: 140 mg Methylprednisolone (Solu-Medrol) 30 mg IVP Q12 [facility] Last Admin: 03/16/18 21:25 Dose: 30 mg Mirtazapine (Remeron) 15 mg PO HS [facility] Last Admin: 03/16/18 21:25 Dose: 15 mg Pantoprazole Sodium (Protonix Ec Tab) 40 mg PO 0600 [facility] Last Admin: 03/16/18 05:55 Dose: Not Given Primaquine Phosphate (Primaquine) 26.3 mg PO DAILY [facility] PRN Reason: Protocol Stop: 03/22/18 10:01 Last Admin: 03/16/18 10:10 Dose: 26.3 mg - Labs Labs: 03/16/18 09:00 03/16/18 09:00 PT 10.3 SECONDS (9.4-12.5) 03/16/18 09:00 INR 0.90 (0.93-1.08) L 03/16/18 09:00 APTT 30.2 Seconds (25.1-36.5) 03/16/18 09:00 Attending/Attestation - Attestation I have personally seen and examined this patient.: Yes I have fully participated in the care of the patient.: Yes I have reviewed all pertinent clinical information, including history, physical exam and plan: Yes Notes (Text): This is an addendum to GI progress report dictated by the Acetylene Cutter.The patient was seen and examined earlier. Medical records, lab studies, imagings were reviewed. Last 24 hours events reviewed. Agreed with the above treatment plan as outlined in Acetylene Cutter 's notes the with the addition of the following 03/16/18 23:59
--- NOTE | 2018-03-15 12:12 | CP.PCM.CON ---
History of Present Illness - History of Present Illness History of Present Illness: Hematology/Oncology Consult Note, Dr. Sullivan CC: Intermittent fever,chills, elevated LFTs, anemic and thrombocytopenic HPI: 37 F with a PMHx of polysubstance abuse, HIV/AIDS, Hepatitis C known treated, tobacco abuse, methadone dependent [place] [facility] for [place] fever, chills, and productive cough. Patient was evaluated and admitted for pneumonia. Patient admits to smoking 1/2 PPD and uses inhalers at home. Patient has not followed up with infectious disease doctor and has not been taking medications. Patient states that has the shakes intermittently. She denied fever, chills, chest pains, abdominal pains, nausea, vomiting, diarrhea, constipation, dysuria. Patient notes her cough is improving. PMHx: methadone dependent, HIV, end satge AIDS, T cell count less then 20, former drug abuser, hepatitis C, PSHx: right anterior neck surgery abscesses removal SHx: +tobacco: 1/2 ppd, denied ETOH, former heroin and cocaine use, methadone dependant allergy: levofloxacin, penicillins, azithromycin, flexeril Review of Systems - Review of Systems Review of Systems: as per HPI otherwise negative Past Patient History - Infectious Disease Hx of Infectious Diseases: None - Tetanus Immunizations Tetanus Immunization: Unknown - Past Social History Smoking Status: Former Smoker - CARDIAC Hx Cardiac Disorders: Yes - PULMONARY Hx Respiratory Disorders: Yes (has nebulizer machine at home) Hx Asthma: Yes Hx Bronchitis: Yes Hx Chronic Obstructive Pulmonary Disease (COPD): Yes Hx Pneumonia: Yes - NEUROLOGICAL Hx Migraine: Yes - HEENT Hx Macular Degeneration: Yes - RENAL Hx Chronic Kidney Disease: No - ENDOCRINE/METABOLIC Hx Endocrine Disorders: No - HEMATOLOGICAL/ONCOLOGICAL Hx Blood Disorders: Yes (blood transfusion) Hx Hepatitis C: Yes (IVDU) - INTEGUMENTARY Hx Dermatological Problems: Yes - MUSCULOSKELETAL/RHEUMATOLOGICAL Hx Musculoskeletal Disorders: Yes Hx Back Pain: Yes Hx Falls: No Other/Comment: SCOLIOSIS - GASTROINTESTINAL Hx Gastrointestinal Disorders: Yes - GENITOURINARY/GYNECOLOGICAL Hx Genitourinary Disorders: Yes Hx Urinary Tract Infection: Yes - PSYCHIATRIC Hx Psychophysiologic Disorder: Yes Hx Anxiety: Yes Hx Substance Use: No Other/Comment: hx ivdu/cocaine stopped 6 yrs ago on methadone program, smokes 1 ppd has not smoked in 4 days - SURGICAL HISTORY Other/Comment: right anterior neck SX for abcesses bx neg - ANESTHESIA Hx Anesthesia: Yes Hx Anesthesia Reactions: No Hx Malignant Hyperthermia: No Meds Allergies/Adverse Reactions: Allergies Allergy/AdvReac Type Severity Reaction Status Date / Time levofloxacin [From Levaquin] Allergy RASH Verified 03/11/18 17:15 Penicillins Allergy RASH Verified 03/11/18 17:15 azithromycin [From Zithromax] AdvReac RASH Verified 03/11/18 17:15 flexeril AdvReac RASH Uncoded 03/11/18 17:15 - Medications Medications: Current Medications Albuterol/Ipratropium (Duoneb 3 Mg/0.5 Mg (3 Ml) Ud) 3 ml IH Q2H PRN PRN Reason: Shortness of Breath Albuterol/Ipratropium (Duoneb 3 Mg/0.5 Mg (3 Ml) Ud) 3 ml IH [id number] [facility] Last Admin: 03/15/18 11:12 Dose: 3 ml Atovaquone (Mepron) 750 mg PO BID [facility] PRN Reason: Protocol Stop: 03/21/18 18:01 Last Admin: 03/15/18 10:40 Dose: 750 mg Doxycycline Hyclate (Doryx) 100 mg PO Q12 [facility] PRN Reason: Protocol Stop: 03/21/18 22:01 Last Admin: 03/15/18 10:39 Dose: 100 mg Enoxaparin Sodium (Lovenox) 40 mg SC DAILY [facility] PRN Reason: Protocol Last Admin: 03/15/18 10:39 Dose: 40 mg Sodium Chloride (Sodium Chloride 0.9%) 1,000 mls @ 70 mls/hr IV .[id number] [facility] Last Admin: 03/14/18 21:35 Dose: 70 mls/hr Clindamycin Phosphate 600 mg/ (Sodium Chloride) 54 mls @ 102 mls/hr IVPB Q8 [facility] PRN Reason: Protocol Stop: 03/21/18 22:01 Last Admin: 03/15/18 05:09 Dose: 102 mls/hr Meropenem (Merrem Iv 1 Gm Premix) 50 mls @ 100 mls/hr IVPB Q8 [facility] PRN Reason: Protocol Stop: 03/21/18 22:01 Last Admin: 03/15/18 05:14 Dose: 100 mls/hr Ibuprofen (Motrin Tab) 800 mg PO TID PRN PRN Reason: Pain, moderate (4-7) Lorazepam (Ativan) 1 mg PO BID [facility] PRN Reason: Protocol Last Admin: 03/15/18 11:28 Dose: 1 mg Lorazepam (Ativan) 1 mg PO HS [facility] PRN Reason: Protocol Magnesium Oxide (Mag-Ox) 400 mg PO BID [facility] Stop: 03/16/18 23:59 Last Admin: 03/15/18 10:39 Dose: 400 mg Methadone HCl (Methadone) 150 mg PO DAILY [facility] Last Admin: 03/15/18 10:39 Dose: 150 mg Methylprednisolone (Solu-Medrol) 30 mg IVP Q12 [facility] Last Admin: 03/15/18 10:38 Dose: 30 mg Pantoprazole Sodium (Protonix Ec Tab) 40 mg PO 0600 [facility] Last Admin: 03/15/18 07:39 Dose: 40 mg Paroxetine HCl (Paxil) 10 mg PO [facility] Last Admin: 03/14/18 21:23 Dose: 10 mg Primaquine Phosphate (Primaquine) 26.3 mg PO DAILY [facility] PRN Reason: Protocol Stop: 03/22/18 10:01 Last Admin: 03/15/18 10:38 Dose: 26.3 mg Physical Exam - Constitutional Appears: No Acute Distress, Chronically Ill - Head Exam Head Exam: ATRAUMATIC, NORMAL INSPECTION, NORMOCEPHALIC - Eye Exam Eye Exam: EOMI, Normal appearance, PERRL Pupil Exam: NORMAL ACCOMODATION, PERRL - ENT Exam ENT Exam: Mucous Membranes Moist, Normal Exam - Neck Exam Neck exam: Positive for: Normal Inspection - Respiratory Exam Respiratory Exam: Decreased Breath Sounds, Rhonchi, NORMAL BREATHING PATTERN - Cardiovascular Exam Cardiovascular Exam: REGULAR RHYTHM, +S1, +S2 - GI/Abdominal Exam GI & Abdominal Exam: Normal Bowel Sounds, Soft. absent: Tenderness - Extremities Exam Extremities exam: Positive for: pedal edema - Neurological Exam Neurological exam: Alert, CN II-XII Intact, Oriented x3, Reflexes Normal - Psychiatric Exam Psychiatric exam: Normal Affect, Normal Mood - Skin Skin Exam: Dry, Intact, Normal Color, Warm Results - Vital Signs Recent Vital Signs: Last Vital Signs Temp 98.6 F 03/15/18 08:43 Pulse 81 03/15/18 08:43 Resp 20 03/15/18 08:43 BP 117/80 05/22/18 08:43 Pulse Ox 96 03/15/18 08:43 - Labs Result Diagrams: 03/15/18 07:00 03/15/18 07:00 Labs: Laboratory Results - last 24 hr 03/13/18 03/15/18 03/15/18 07:00 07:00 07:00 WBC 3.7 L D RBC 3.42 L Hgb 9.1 L Hct 28.8 L MCV 84.2 MCH 26.6 MCHC 31.6 RDW 19.1 H Plt Count 91 L MPV 9.0 Gran % 81.1 H Lymph % (Auto) 10.0 L [place] % (Auto) 8.9 H Eos % (Auto) 0.0 L Baso % (Auto) 0.0 Gran # 3.01 Lymph # (Auto) 0.4 L [place] # (Auto) 0.3 Eos # (Auto) 0.0 Baso # (Auto) 0.00 PT INR Sodium 142 Potassium 5.0 Chloride 108 H Carbon Dioxide 26 Anion Gap 13 BUN 22 H Creatinine 0.8 Est GFR ( Amer) > 60 Est GFR (Non-Af Amer) > 60 Random Glucose 80 Calcium 8.5 Phosphorus 4.3 Magnesium 1.7 Total Bilirubin 0.4 Direct Bilirubin 0.3 AST 425 H D ALT 225 H Alkaline Phosphatase 568 H Total Protein 6.3 Albumin 2.7 L Globulin 3.6 Albumin/Globulin Ratio 0.8 L TSH 3rd Generation Cryptococcus Ag Screen Not detected 03/15/18 03/15/18 07:00 07:00 WBC RBC Hgb Hct MCV MCH MCHC RDW Plt Count MPV Gran % Lymph % (Auto) [place] % (Auto) Eos % (Auto) Baso % (Auto) Gran # Lymph # (Auto) [place] # (Auto) Eos # (Auto) Baso # (Auto) PT 9.7 INR 0.85 L Sodium Potassium Chloride Carbon Dioxide Anion Gap BUN Creatinine Est GFR ( Amer) Est GFR (Non-Af Amer) Random Glucose Calcium Phosphorus Magnesium Total Bilirubin Direct Bilirubin AST ALT Alkaline Phosphatase Total Protein Albumin Globulin Albumin/Globulin Ratio TSH 3rd Generation 1.24 Cryptococcus Ag Screen Assessment & Plan - Assessment and Plan (Free Text) Assessment: 37 F with a PMHx of polysubstance abuse, HIV/AIDS, hx of pneumocystis carinii, COPD, Hepatitis C known treated, tobacco abuse, methadone dependent [place] [facility] [place] intermittent fever, chills, and productive cough. Patient was evaluated and admitted for pneumonia. CT scan of chest showed infiltrates, ID and Pulmonary on consult, on abx: Doxycycline, merrem, clindamycin and primaquine, day 4. HIV/AIDS with last CD4 count <20, non-compliant with her meds. Follow up beta glucan, serum Crypt Ag, urine Legionella Ag and CMV PCR. Patient found to be anemic with a Hgb of 9.1 from a previous 12. Patient also has a platelet count of 91 from a previous 100 on manual count. Will continue to monitor clinically. Patient on lovenox. patient will need to follow up with HIV provider as outpatient.
--- NOTE | 2018-03-15 13:06 | PN ---
DATE: 03/15/2018 SUBJECTIVE: The patient was seen over the weekend by Dr. Gutierrez. Paxil was started for depression and anxiety. The patient has long history of opioid use, IV drug use, but she is sober on methadone program. The patient was admitted for possible pneumonia. Psych consult was called for evaluation of depressive symptoms and anxiety. The patient was seen by this check writer yesterday and this check writer is following up on patient today, notes reviewed. The patient was seen. The patient appears to be very weak, pale, sick looking lady. The patient said that she does not feel good because of the weakness. The patient also reported that she has anxiety and she has upper extremity tremor. Tremor is not new for the patient, but the patient reported that at present moment, it is worse than usual. The patient reported that she did not feel better overall. The patient reported that she is anxious and depressed, but denied thoughts of harming herself. The patient also denied any psychotic symptoms. As per collateral information from the nursing staff, the patient does not have any aggressive or agitated behavior. PHYSICAL EXAMINATION: VITAL SIGNS: Temperature 98.6, pulse is 81, blood pressure 117/80, respirations 20, oxygen saturation is 96. MEDICATIONS: Reviewed. The patient is on albuterol, DuoNeb, Mepron, doxycycline, Lovenox, Motrin, Ativan will be increased to 1 mg three times a day, magnesium oxide, meropenem, methadone 150 mg daily, Solu-Medrol, Protonix, Paxil 10 mg at the nighttime, primaquine, sodium chloride. LABORATORY DATA: Reviewed. Potassium is better, today is 5; chloride 108. AST and ALT is trending down 425 and 225 respectively. Hepatitis C antibody reactive. This check writer reviewed notes from Infectious Disease. The patient was diagnosed with sepsis due to bacterial pneumonia, rule out pneumocystic pneumonia, rule out typical pneumonia. The patient has HIV AIDS with last CD-4 count less than 20. The patient has noncompliance with the medication. MENTAL STATUS EXAMINATION: The patient appears to be a very thin, cachectic, sick looking lady, flat affect. Speech was underproductive, low volume. Mood described as not good. Affect was flat. Thought process concrete, but goal directed. Thought content, the patient denied visual, auditory, or tactile hallucinations. Denied paranoid ideation. The patient denied thoughts of harming herself or others. Denied intent or plan. Insight and judgment seems to be limited, but improving. Impulses are well controlled. IMPRESSION: Rule out mood disorder due to general medical condition, rule out adjustment disorder. The patient has multiple medical issues, human immunodeficiency virus and acquired immunodeficiency syndrome. The patient has pneumonia, sepsis. PLAN: Continue current medications. The patient is on methadone 150, which should be continued; trazodone, the patient was not willing to resume that medication; Paxil was started 10 mg. Considering the fact that the patient has liver enzymes elevated, Klonopin was discontinued. Ativan was given at the same equivalent doses and today, this check writer increased it to three times a day 1 mg. We will follow up and advise accordingly. Should you have any questions, give me a call back. Thank you very much for letting me participate in care of your patient. Celia Cho MD
--- NOTE | 2018-03-15 14:57 | PN ---
DATE: 03/14/2018 SUBJECTIVE: Patient lying in bed comfortably. No distress. No nausea. No vomiting. Breathing better than before and she complained about timing of her methadone; otherwise, no new complaints. She is currently on IV antibiotics, multiple antibiotics, seen by psychiatrist. PHYSICAL EXAMINATION: VITAL SIGNS: Temperature is 98.1, heart rate 77, blood pressure 102/65, respirations 18, saturation 95% on room air. HEAD AND NECK: Normal. No JVD. No thyromegaly. CHEST: Bilateral rhonchi. CARDIAC: First and second sounds are normal. ABDOMEN: Soft. Not obese. EXTREMITIES: No edema. NEUROLOGIC: Patient has generalized weakness. Otherwise, nonfocal. She is alert and oriented x3. LABORATORY DATA: Shows white count 6, hemoglobin 9.3, hematocrit 30.1, platelets is 82. Chemistry shows sodium 141, potassium 5.4, chloride 111, bicarbonate 24, BUN 23, creatinine 0.9. Liver enzymes repeated shows it came down, better. Her AST is 674, her ALT 268 and alkaline phosphatase is 693. Patient also had LDH, which came down to 821. Her C-reactive protein is very high at 10.9 and her procalcitonin also is high at 0.94. IMPRESSION AND PLAN: 1. Bilateral pneumonia. Continue IV antibiotics as per Infectious Disease recommendations. She is getting Mepron p.o. She is getting IV clindamycin and she is getting doxycycline IV. She is getting primaquine 26.3 once a day and will continue nebulizer treatments. She would be seen by Pulmonary clothing consultant, Dr. Barajas. 2. Patient has drug abuse history. She is on methadone, probably the methadone metabolizing the liver will increase liver enzymes. We will be cautious about continuation of the same dose; however, we will monitor her EKG, QT has been prolonged at 480, did not cross 500. Patient clinically stable. No cardiac arrhythmia. We will get a Cardiology consult to reevaluate and give us advice. At this time, we will continue her methadone as usual, we held it until we repeated the liver enzymes, which came back less than before. 3. Underlying depression and anxiety with her physical illness with psychiatry consultation to rule out or to monitor her psych conditions, probably chronic anxiety with depression. Paxil plus Klonopin, which has been changed to Ativan. We will continue follow up with the psychiatrist for office recommendations. 4. The patient has chronic anemia/pancytopenia. We will discuss with the Hematology clothing consultant, we will reconsult him and we will follow up with Gastroenterology consult, Dr. Centeno. Continue current therapy. Patient is getting Lovenox for deep venous thrombosis. She is getting also Protonix p.o. 40 mg daily. Continue current therapy. Macario Carter MD
[2018-03-15 15:11] LABS: % CD4 (T HELPER CELL) 1 Percent (30-61); % CD8 (SUPPRESSOR T CELL) 61 Percent (12-42); ABSOLUTE CD4 CELLS <20 Cells/mcL (490-1740); ABSOLUTE CD8 CELLS 311 Cells/mcL (180-1170); ABSOLUTE LYMPHOCYTES 506 Cells/mcL (850-3900); HELPER/SUPPRESSOR RATIO 0.01 Ratio (0.86-5.00)
[2018-03-15 15:47] LABS: IRON 51 ug/dL (45-180)
[2018-03-15 15:56] LABS: % IRON SATURATION 23 % (20-55); TOTAL IRON BINDING CAPACITY 222 ug/dL (265-497)
[2018-03-15 22:36] LABS: FOLATE 12.2 ng/mL
--- NOTE | 2018-03-15 22:49 | PN ---
DATE: 03/15/2018 SUBJECTIVE: The patient was seen earlier in 578, bed 2. The patient states she is doing better. She is chronically ill, debilitated, end stage, cachectic with wasting syndrome. PHYSICAL EXAMINATION: VITAL SIGNS: Temperature of 98, blood pressure is 100/60, respiratory rate of 20, heart rate of 97, BMI of 17. HEENT: Reveals temporal wasting. NECK: Supple. LUNGS: Have decreased breath sounds. HEART: Normal S1 and S2. ABDOMEN: Soft, nontender. LABORATORY DATA: Reveals a white count of 3.7, hemoglobin of 9, platelets of 91. Chemistries are noted. The patient's procalcitonin is 0.94 with LFT elevations and LDH is 821. Immunology reveals the patient's T-cell is less than 20, 1% T-cell with beta-1, 3D Glucan is positive at 347 and the range should be less than 60, positive beta-1, 3D Glucan and positive hepatitis C. The cryptococcal antigen is negative and Plavix genotype is positive, indication of a fungal infection. Review of the medications reveals the patient to be on clindamycin and meropenem and primaquine and Solu-Medrol. ASSESSMENT AND PLAN: This is a 37-year-old female seen earlier today in 578, bed 2 who is end-stage acquired immunodeficiency syndrome with cachexia, presenting with most likely sepsis and end-stage acquired immunodeficiency syndrome with Pneumocystis carinii with a positive 1, 3 beta-D Glucan, significant for Pneumocystis carinii pneumonia this patient with end-stage acquired immunodeficiency syndrome, we will continue the present course. Overall, prognosis is quite poor for this noncompliant to her medication, recommend a psychiatric evaluation. Cheikh Chou MD
[2018-03-16] MEDS: Albuterol-Ipratrop 3 mg / 0.5 (3 ml) UD IH SCH ×6 (00:39→21:27)
[2018-03-16] MEDS: Sodium Chloride 0.9% 1,000 ML IV SCH ×2 (02:22→17:06)
--- NOTE | 2018-03-16 03:25 | PN ---
DATE: 03/15/2018 PULMONARY PROGRESS NOTE REFERRING PHYSICIAN: Dr. Claire. SUBJECTIVE: She is sitting up in a bed. Night was unremarkable. Still has a cough and shortness of breath. No chest pain. No nausea. No vomiting or diarrhea. No leg pain or leg swelling. OBJECTIVE: GENERAL: In no acute distress. VITAL SIGNS: Temperature is 98, heart rate is 97, respiratory rate is 20, blood pressure 116/83, pulse ox 96% on nasal cannula. HEENT: Moist mucous membrane. No ulcer or thrush noted. NECK: Supple. No JVD. LUNGS: Have a prolonged expiratory phase with some wheezing. HEART: S1 and S2. ABDOMEN: Soft, nontender. No organomegaly. EXTREMITIES: No edema. NEUROLOGIC: Awake and alert, follows simple command. MEDICATIONS: She is on Ativan 1 mg twice a day, also on Ativan 1 mg at bedtime; clindamycin 600 mg every 8 hours; doxycycline 100 mg twice day; albuterol/Atrovent nebulizer every 12 hours p.r.n., every 4 hours [id number]; Lovenox 40 mg subcu daily; mag oxide 400 mg daily; Mepron 750 mg twice a day; meropenem 1 g IV every 8 hours; methadone mg daily; Motrin 800 mg three times a day p.r.n.; Paxil 10 mg at bedtime; primaquine 26.3 mg daily; Protonix 40 mg daily; IV fluid normal saline 70 mL per hour; Solu-Medrol 30 mg every 12 hours. LABORATORY DATA: Shows hemoglobin 9.1, hematocrit 28.8, WBC 3.7, platelet is 100. INR 0.85. Sodium 142, potassium 5, chloride 108, bicarbonate 26, BUN 22, creatinine 0.8, glucose 80, calcium is 8.5, phosphorus is 4.3, magnesium 1.7, iron is 51, 153. AST 425, ALT 225, alk phos is 568. Albumin is 2.7, TSH 1.24. Microbiology: Blood culture has been negative. IMPRESSION AND PLAN: Acquired immune deficiency syndrome, chronic obstructive lung disease, bronchiolitis, substance abuse, methadone dependent, noncompliant with the smoking. Actively smokes. Continue intravenous and inhaled bronchodilator. Gastric prophylaxis. Infectious Disease's followup. Thank you and we will follow with you. Cara Barajas MD
[2018-03-16] MEDS: Meropenem IV 1 gm in NS 50 ML IVPB SCH ×3 (05:32→22:25)
[2018-03-16] MEDS: Pantoprazole 40 mg EC Tab PO SCH (05:55)
--- NOTE | 2018-03-16 07:03 | CP.PCM.PN ---
Subjective - Date & Time of Evaluation Date of Evaluation: 03/16/18 Time of Evaluation: 06:15 - Subjective Subjective: Awake,lying in bed, on the phone talking to her mom, denies shortness of breath , denies chest pain Reason for consultation and follow up: Cardiac evaluation, shortness of breath, pulmonary hypertension,heavy smoker, HIV positive,on Methadone treatment, history of cocaine and heroine abuse, end stage AIDS,Hepatitis C, pneumonia, COPD Seen and examined by me and Dr. Veliz Objective - Vital Signs/Intake and Output Vital Signs (last 24 hours): Temp Pulse Resp BP Pulse Ox 98.2 F 97 H 20 116/83 96 03/15/18 15:28 03/15/18 15:28 03/15/18 15:28 03/15/18 15:28 03/15/18 15:28 Intake and Output: 03/15/18 03/16/18 18:59 06:59 Intake Total 1080 Balance 1080 - Medications Medications: Current Medications Albuterol/Ipratropium (Duoneb 3 Mg/0.5 Mg (3 Ml) Ud) 3 ml IH Q2H PRN PRN Reason: Shortness of Breath Albuterol/Ipratropium (Duoneb 3 Mg/0.5 Mg (3 Ml) Ud) 3 ml IH [id number] [facility] Last Admin: 03/16/18 03:44 Dose: 3 ml Atovaquone (Mepron) 750 mg PO BID [facility] PRN Reason: Protocol Stop: 03/21/18 18:01 Last Admin: 03/15/18 18:01 Dose: 750 mg Doxycycline Hyclate (Doryx) 100 mg PO Q12 [facility] PRN Reason: Protocol Stop: 03/21/18 22:01 Last Admin: 03/15/18 21:13 Dose: 100 mg Enoxaparin Sodium (Lovenox) 40 mg SC DAILY [facility] PRN Reason: Protocol Last Admin: 03/15/18 10:39 Dose: 40 mg Sodium Chloride (Sodium Chloride 0.9%) 1,000 mls @ 70 mls/hr IV .[id number] [facility] Last Admin: 03/16/18 02:22 Dose: 70 mls/hr Clindamycin Phosphate 600 mg/ (Sodium Chloride) 54 mls @ 102 mls/hr IVPB Q8 [facility] PRN Reason: Protocol Stop: 03/21/18 22:01 Last Admin: 03/16/18 05:31 Dose: 102 mls/hr Meropenem (Merrem Iv 1 Gm Premix) 50 mls @ 100 mls/hr IVPB Q8 [facility] PRN Reason: Protocol Stop: 03/21/18 22:01 Last Admin: 03/16/18 05:32 Dose: 100 mls/hr Ibuprofen (Motrin Tab) 800 mg PO TID PRN PRN Reason: Pain, moderate (4-7) Last Admin: 03/15/18 20:22 Dose: 800 mg Lorazepam (Ativan) 1 mg PO BID [facility] PRN Reason: Protocol Last Admin: 03/15/18 18:38 Dose: Not Given Lorazepam (Ativan) 1 mg PO HS [facility] PRN Reason: Protocol Last Admin: 03/15/18 23:51 Dose: Not Given Magnesium Oxide (Mag-Ox) 400 mg PO BID [facility] Stop: 03/16/18 23:59 Last Admin: 03/15/18 18:01 Dose: 400 mg Methadone HCl (Methadone) 140 mg PO DAILY [facility] Methylprednisolone (Solu-Medrol) 30 mg IVP Q12 [facility] Last Admin: 03/15/18 22:24 Dose: 30 mg Pantoprazole Sodium (Protonix Ec Tab) 40 mg PO 0600 [facility] Last Admin: 03/16/18 05:55 Dose: Not Given Paroxetine HCl (Paxil) 10 mg PO HS [facility] Last Admin: 03/15/18 21:15 Dose: 10 mg Primaquine Phosphate (Primaquine) 26.3 mg PO DAILY [facility] PRN Reason: Protocol Stop: 03/22/18 10:01 Last Admin: 03/15/18 10:38 Dose: 26.3 mg - Labs Labs: 03/15/18 07:00 03/15/18 07:00 PT 9.7 SECONDS (9.4-12.5) 03/15/18 07:00 INR 0.85 (0.93-1.08) L 03/15/18 07:00 - Constitutional Appears: No Acute Distress, Cachectic - Head Exam Head Exam: NORMOCEPHALIC - ENT Exam ENT Exam: Mucous Membranes Moist - Respiratory Exam Respiratory Exam: Decreased Breath Sounds, NORMAL BREATHING PATTERN - Cardiovascular Exam Cardiovascular Exam: +S1, +S2 - GI/Abdominal Exam GI & Abdominal Exam: Soft, Normal Bowel Sounds - Extremities Exam Extremities Exam: Normal Capillary Refill - Neurological Exam Neurological Exam: Alert, Awake, Oriented x3 - Psychiatric Exam Psychiatric exam: Normal Affect, Normal Mood - Skin Skin Exam: Intact, Normal Color, Warm Assessment and Plan - Assessment and Plan (Free Text) Assessment: A 37 year old female who came in to the ER due shortness of breath and leg swelling. History of pneumocystis carinii,heavy smoker, HIV positive,on Methadone treatment, history of cocaine and heroine abuse, end stage AIDS, Hepatitis C, pneumonia, COPD. Plan: Stable cardiac status Heart rate and blood pressure stable Pneumonia ID and Pulmonary on consult On antibiotics as ordered; Merrem,Clindamycin and Doxycycline Patient is non compliant at home on Methadone Continue current treatment Continue current medications Will follow up PLan and treatment discussed with Dr. Veliz
[2018-03-16 09:06] LABS: GRAN # 2.41 (1.4-6.5); GRAN % 74.9 % (50.0-68.0); HEMOGLOBIN 8.9 g/dL (12.0-16.0); LYMPH # 0.5 (1.2-3.4); LYMPH % 15.5 % (22.0-35.0); MEAN CELL VOLUME 84.1 fl (80.0-105.0); MEAN CORPUSCULAR HEMOGLOBIN 26.7 pg (25.0-35.0); MEAN CORPUSCULAR HGB CONC 31.8 g/dl (31.0-37.0); MEAN PLATELET VOLUME 9.2 fl (7.0-11.0); MONO # 0.3 (0.1-0.6); MONO % 9.6 % (1.0-6.0); RBC 3.33 10^6/uL (3.5-6.1); RED CELL DISTRIBUTION WIDTH 18.1 % (11.5-14.5); WHITE BLOOD COUNT 3.2 10^3/ul (4.5-11.0)
[2018-03-16 09:27] LABS: ALB/GLOB RATIO 0.7 (1.1-1.8); ALBUMIN 2.6 g/dL (3.0-4.8); ALT/SGPT 181 U/L (7-56); AST/SGOT 213 U/L (14-36); BLOOD UREA NITROGEN 20 mg/dL (7-21); CALCIUM 8.9 mg/dL (8.4-10.5); GFR AFRICAN-AMERICAN > 60; GFR NON-AFRICAN AMERICAN > 60
[2018-03-16 09:43] LABS: INR 0.9 (0.93-1.08); PARTIAL THROMBOPLASTIN TIME 30.2 Seconds (25.1-36.5); PROTHROMBIN TIME 10.3 SECONDS (9.4-12.5)
[2018-03-16] MEDS: Magnesium Oxide 400 mg Tab UD PO SCH ×2 (10:10→17:03)
[2018-03-16] MEDS: Primaquine 26.3 mg Tab PO SCH (10:10)
[2018-03-16] MEDS: Atovaquone 750 mg/5 ml Susp UD PO SCH ×2 (10:10→17:03)
[2018-03-16] MEDS: MethylPREDNISolone 40 mg Vial IVP SCH ×2 (10:11→21:25)
[2018-03-16] MEDS: Enoxaparin 40 mg Syringe SC SCH (10:11)
--- NOTE | 2018-03-16 10:41 | CP.PCM.PN ---
<Judy Fitzpatrick - Last Filed: 03/16/18 15:42> Subjective - Date & Time of Evaluation Date of Evaluation: 03/16/18 Time of Evaluation: 09:00 - Subjective Subjective: PGY-[address] Centeno Patient seen and examined at bedside. No acute distress. Patient states that she is shaking, denies fever, chills. Patient denies any pain. She report improving cough. She denies abd pain, n/v, diarrhea. She states that she is tolerating diet. Objective - Vital Signs/Intake and Output Vital Signs (last 24 hours): Temp Pulse Resp BP Pulse Ox 97.4 F L 79 18 118/83 96 03/16/18 08:07 03/16/18 08:07 03/16/18 08:07 03/16/18 08:07 03/16/18 08:07 Intake and Output: 03/16/18 03/16/18 06:59 18:59 Intake Total 1080 Balance 1080 - Medications Medications: Current Medications Albuterol/Ipratropium (Duoneb 3 Mg/0.5 Mg (3 Ml) Ud) 3 ml IH Q2H PRN PRN Reason: Shortness of Breath Albuterol/Ipratropium (Duoneb 3 Mg/0.5 Mg (3 Ml) Ud) 3 ml IH [id number] [facility] Last Admin: 03/16/18 07:42 Dose: 3 ml Atovaquone (Mepron) 750 mg PO BID [facility] PRN Reason: Protocol Stop: 03/21/18 18:01 Last Admin: 03/16/18 10:10 Dose: 750 mg Clonazepam (Klonopin) 0.5 mg PO BID [facility] PRN Reason: Protocol Last Admin: 03/16/18 10:10 Dose: 0.5 mg Clonazepam (Klonopin) 0.5 mg PO HS PRN; Protocol PRN Reason: anxiety/insomnia Doxycycline Hyclate (Doryx) 100 mg PO Q12 [facility] PRN Reason: Protocol Stop: 03/21/18 22:01 Last Admin: 03/16/18 10:09 Dose: 100 mg Enoxaparin Sodium (Lovenox) 40 mg SC DAILY [facility] PRN Reason: Protocol Last Admin: 03/16/18 10:11 Dose: 40 mg Sodium Chloride (Sodium Chloride 0.9%) 1,000 mls @ 70 mls/hr IV .[id number] [facility] Last Admin: 03/16/18 02:22 Dose: 70 mls/hr Clindamycin Phosphate 600 mg/ (Sodium Chloride) 54 mls @ 102 mls/hr IVPB Q8 [facility] PRN Reason: Protocol Stop: 03/21/18 22:01 Last Admin: 03/16/18 05:31 Dose: 102 mls/hr Meropenem (Merrem Iv 1 Gm Premix) 50 mls @ 100 mls/hr IVPB Q8 [facility] PRN Reason: Protocol Stop: 03/21/18 22:01 Last Admin: 03/16/18 05:32 Dose: 100 mls/hr Ibuprofen (Motrin Tab) 800 mg PO TID PRN PRN Reason: Pain, moderate (4-7) Last Admin: 03/15/18 20:22 Dose: 800 mg Magnesium Oxide (Mag-Ox) 400 mg PO BID [facility] Stop: 03/16/18 23:59 Last Admin: 03/16/18 10:10 Dose: 400 mg Methadone HCl (Methadone) 140 mg PO DAILY [facility] Last Admin: 03/16/18 10:10 Dose: 140 mg Methylprednisolone (Solu-Medrol) 30 mg IVP Q12 [facility] Last Admin: 03/16/18 10:11 Dose: 30 mg Mirtazapine (Remeron) 15 mg PO HS [facility] Pantoprazole Sodium (Protonix Ec Tab) 40 mg PO 0600 [facility] Last Admin: 03/16/18 05:55 Dose: Not Given Primaquine Phosphate (Primaquine) 26.3 mg PO DAILY [facility] PRN Reason: Protocol Stop: 03/22/18 10:01 Last Admin: 03/16/18 10:10 Dose: 26.3 mg - Labs Labs: 03/16/18 09:00 03/16/18 09:00 PT 10.3 SECONDS (9.4-12.5) 03/16/18 09:00 INR 0.90 (0.93-1.08) L 03/16/18 09:00 APTT 30.2 Seconds (25.1-36.5) 03/16/18 09:00 - Constitutional Appears: No Acute Distress - Head Exam Head Exam: ATRAUMATIC, NORMAL INSPECTION, NORMOCEPHALIC - Eye Exam Eye Exam: EOMI, Normal appearance - ENT Exam ENT Exam: Mucous Membranes Moist - Respiratory Exam Respiratory Exam: NORMAL BREATHING PATTERN. absent: Respiratory Distress - GI/Abdominal Exam GI & Abdominal Exam: Soft. absent: Distended, Firm, Guarding, Tenderness, Hernia - Extremities Exam Extremities Exam: Normal Inspection - Neurological Exam Neurological Exam: Alert, Awake, Oriented x3 - Skin Skin Exam: Dry, Intact, Normal Color, Warm Assessment and Plan - Assessment and Plan (Free Text) Assessment: 37 year old female with PMH of heavy smoker, methadone dependent, HIV, end stage AIDS, T cell count less then 20, former drug abuser, hepatitis C, noncompliant, presents to the ED for pneumonia, found to have elevated LFT's most likely due to medication and hypoperfusion due to episode of low BP Plan: - LFTs were within normal limits on her last admission, increase could be contributed to medication including motrin and z sheila as well as episode fo low BP. - US of abd showed fatty liver, distended gallbladder, no stones - CK was within normal limits - LFTs continue to downtrending, will continue to trend - no GI complaints at this time - continue PPI case seen and discussed with Dr. Centeno <Anne Centeno V - Last Filed: 03/16/18 23:44> Objective - Vital Signs/Intake and Output Vital Signs (last 24 hours): Temp Pulse Resp BP Pulse Ox 98.8 F 81 18 112/75 94 L 03/16/18 22:00 03/16/18 22:00 03/16/18 22:00 03/16/18 22:00 03/16/18 22:00 Intake and Output: 03/16/18 03/17/18 18:59 06:59 Intake Total 600 500 Output Total 2 Balance 600 498 - Medications Medications: Current Medications Albuterol/Ipratropium (Duoneb 3 Mg/0.5 Mg (3 Ml) Ud) 3 ml IH Q2H PRN PRN Reason: Shortness of Breath Albuterol/Ipratropium (Duoneb 3 Mg/0.5 Mg (3 Ml) Ud) 3 ml IH [id number] [facility] Last Admin: 03/16/18 21:27 Dose: 3 ml Atovaquone (Mepron) 750 mg PO BID [facility] PRN Reason: Protocol Stop: 03/21/18 18:01 Last Admin: 03/16/18 17:03 Dose: 750 mg Clonazepam (Klonopin) 0.5 mg PO BID [facility] PRN Reason: Protocol Last Admin: 03/16/18 17:03 Dose: 0.5 mg Clonazepam (Klonopin) 0.5 mg PO HS PRN; Protocol PRN Reason: anxiety/insomnia Doxycycline Hyclate (Doryx) 100 mg PO Q12 [facility] PRN Reason: Protocol Stop: 03/21/18 22:01 Last Admin: 03/16/18 21:25 Dose: 100 mg Enoxaparin Sodium (Lovenox) 40 mg SC DAILY [facility] PRN Reason: Protocol Last Admin: 03/16/18 10:11 Dose: 40 mg Sodium Chloride (Sodium Chloride 0.9%) 1,000 mls @ 70 mls/hr IV .[id number] [facility] Last Admin: 03/16/18 17:06 Dose: 70 mls/hr Clindamycin Phosphate 600 mg/ (Sodium Chloride) 54 mls @ 102 mls/hr IVPB Q8 [facility] PRN Reason: Protocol Stop: 03/21/18 22:01 Last Admin: 03/16/18 21:18 Dose: 102 mls/hr Meropenem (Merrem Iv 1 Gm Premix) 50 mls @ 100 mls/hr IVPB Q8 [facility] PRN Reason: Protocol Stop: 03/21/18 22:01 Last Admin: 03/16/18 22:25 Dose: 100 mls/hr Ibuprofen (Motrin Tab) 800 mg PO TID PRN PRN Reason: Pain, moderate (4-7) Last Admin: 03/15/18 20:22 Dose: 800 mg Magnesium Oxide (Mag-Ox) 400 mg PO BID [facility] Stop: 03/16/18 23:59 Last Admin: 03/16/18 17:03 Dose: 400 mg Methadone HCl (Methadone) 140 mg PO DAILY [facility] Last Admin: 03/16/18 10:10 Dose: 140 mg Methylprednisolone (Solu-Medrol) 30 mg IVP Q12 [facility] Last Admin: 03/16/18 21:25 Dose: 30 mg Mirtazapine (Remeron) 15 mg PO HS [facility] Last Admin: 03/16/18 21:25 Dose: 15 mg Pantoprazole Sodium (Protonix Ec Tab) 40 mg PO 0600 [facility] Last Admin: 03/16/18 05:55 Dose: Not Given Primaquine Phosphate (Primaquine) 26.3 mg PO DAILY [facility] PRN Reason: Protocol Stop: 03/22/18 10:01 Last Admin: 03/16/18 10:10 Dose: 26.3 mg - Labs Labs: 03/16/18 09:00 03/16/18 09:00 PT 10.3 SECONDS (9.4-12.5) 03/16/18 09:00 INR 0.90 (0.93-1.08) L 03/16/18 09:00 APTT 30.2 Seconds (25.1-36.5) 03/16/18 09:00 Attending/Attestation - Attestation I have personally seen and examined this patient.: Yes I have fully participated in the care of the patient.: Yes I have reviewed all pertinent clinical information, including history, physical exam and plan: Yes Notes (Text): This is an addendum to GI progress report dictated by the Circus Agent.The patient was seen and examined earlier. Medical records, lab studies, imagings were reviewed. Last 24 hours events reviewed. Agreed with the above treatment plan as outlined in Circus Agent 's notes the with the addition of the following 03/16/18 23:44
--- NOTE | 2018-03-16 14:03 | CP.PCM.PN ---
Subjective - Date & Time of Evaluation Date of Evaluation: 03/16/18 Time of Evaluation: 08:00 - Subjective Subjective: Hematology/Oncology Progress note for Dr. Sullivan Patient was seen and examined at bedside. No acute complaints at this time. Patient has a mild dry cough, her chest discomfort has improved as well as her lower extremity swelling. Patient noted mild "shakiness" that also have improved. She is tolerating oral intake and is moving bowels and bladder regularly. Patient denied fever, chills, shortness of breath, lightheadedness, hallucinations, anxiety, depression, chest pains, abdominal pains, nausea, vomiting, dysuria, constipation or diarrhea. Objective - Vital Signs/Intake and Output Vital Signs (last 24 hours): Temp Pulse Resp BP Pulse Ox 97.4 F L 79 18 118/83 96 03/16/18 08:07 03/16/18 08:07 03/16/18 08:07 03/16/18 08:07 03/16/18 08:07 Intake and Output: 03/16/18 03/16/18 06:59 18:59 Intake Total 1080 Balance 1080 - Medications Medications: Current Medications Albuterol/Ipratropium (Duoneb 3 Mg/0.5 Mg (3 Ml) Ud) 3 ml IH Q2H PRN PRN Reason: Shortness of Breath Albuterol/Ipratropium (Duoneb 3 Mg/0.5 Mg (3 Ml) Ud) 3 ml IH [id number] [facility] Last Admin: 03/16/18 11:04 Dose: 3 ml Atovaquone (Mepron) 750 mg PO BID [facility] PRN Reason: Protocol Stop: 03/21/18 18:01 Last Admin: 03/16/18 10:10 Dose: 750 mg Clonazepam (Klonopin) 0.5 mg PO BID [facility] PRN Reason: Protocol Last Admin: 03/16/18 10:10 Dose: 0.5 mg Clonazepam (Klonopin) 0.5 mg PO HS PRN; Protocol PRN Reason: anxiety/insomnia Doxycycline Hyclate (Doryx) 100 mg PO Q12 [facility] PRN Reason: Protocol Stop: 03/21/18 22:01 Last Admin: 03/16/18 10:09 Dose: 100 mg Enoxaparin Sodium (Lovenox) 40 mg SC DAILY [facility] PRN Reason: Protocol Last Admin: 03/16/18 10:11 Dose: 40 mg Sodium Chloride (Sodium Chloride 0.9%) 1,000 mls @ 70 mls/hr IV .[id number] [facility] Last Admin: 03/16/18 02:22 Dose: 70 mls/hr Clindamycin Phosphate 600 mg/ (Sodium Chloride) 54 mls @ 102 mls/hr IVPB Q8 [facility] PRN Reason: Protocol Stop: 03/21/18 22:01 Last Admin: 03/16/18 05:31 Dose: 102 mls/hr Meropenem (Merrem Iv 1 Gm Premix) 50 mls @ 100 mls/hr IVPB Q8 [facility] PRN Reason: Protocol Stop: 03/21/18 22:01 Last Admin: 03/16/18 13:40 Dose: 100 mls/hr Ibuprofen (Motrin Tab) 800 mg PO TID PRN PRN Reason: Pain, moderate (4-7) Last Admin: 03/15/18 20:22 Dose: 800 mg Magnesium Oxide (Mag-Ox) 400 mg PO BID [facility] Stop: 03/16/18 23:59 Last Admin: 03/16/18 10:10 Dose: 400 mg Methadone HCl (Methadone) 140 mg PO DAILY [facility] Last Admin: 03/16/18 10:10 Dose: 140 mg Methylprednisolone (Solu-Medrol) 30 mg IVP Q12 [facility] Last Admin: 03/16/18 10:11 Dose: 30 mg Mirtazapine (Remeron) 15 mg PO HS [facility] Pantoprazole Sodium (Protonix Ec Tab) 40 mg PO 0600 [facility] Last Admin: 03/16/18 05:55 Dose: Not Given Primaquine Phosphate (Primaquine) 26.3 mg PO DAILY [facility] PRN Reason: Protocol Stop: 03/22/18 10:01 Last Admin: 03/16/18 10:10 Dose: 26.3 mg - Labs Labs: 03/16/18 09:00 03/16/18 09:00 PT 10.3 SECONDS (9.4-12.5) 03/16/18 09:00 INR 0.90 (0.93-1.08) L 03/16/18 09:00 APTT 30.2 Seconds (25.1-36.5) 03/16/18 09:00 - Constitutional Appears: No Acute Distress - Head Exam Head Exam: ATRAUMATIC, NORMAL INSPECTION, NORMOCEPHALIC - Eye Exam Eye Exam: EOMI, Normal appearance, PERRL Pupil Exam: NORMAL ACCOMODATION, PERRL - ENT Exam ENT Exam: Mucous Membranes Dry - Respiratory Exam Respiratory Exam: Decreased Breath Sounds, NORMAL BREATHING PATTERN - Cardiovascular Exam Cardiovascular Exam: REGULAR RHYTHM, +S1, +S2. absent: Murmur - GI/Abdominal Exam GI & Abdominal Exam: Soft, Normal Bowel Sounds. absent: Tenderness - Extremities Exam Extremities Exam: Full ROM, Normal Capillary Refill, Normal Inspection. absent : Joint Swelling, Pedal Edema - Neurological Exam Neurological Exam: Alert, Awake, CN II-XII Intact, Normal Gait, Oriented x3 - Psychiatric Exam Psychiatric exam: Normal Affect, Normal Mood - Skin Skin Exam: Dry, Intact, Normal Color, Warm Assessment and Plan - Assessment and Plan (Free Text) Assessment: 37 F with a PMHx of polysubstance abuse, HIV/AIDS, hx of pneumocystis carinii, COPD, Hepatitis C known treated, tobacco abuse, methadone dependent presented to [facility] ED for intermittent fever, chills, and productive cough. Patient was evaluated and admitted for pneumonia. CT scan of chest showed infiltrates, ID and Pulmonary on consult, on abx: Doxycycline, merrem, clindamycin and primaquine, day 4. HIV/AIDS with last CD4 count <20, non-compliant with her meds. Follow up beta glucan, serum Crypt Ag, urine Legionella Ag and CMV PCR. Patient found to be anemic with a Hgb of 9.1 from a previous 12. Patient also has a platelet count of 91 from a previous 100 on manual count. Her Hgb and plts have remained steady with a hgb of 8.9 and plt of 96. B12 and folic acid wnl. Iron wnl, TIBC low,and transferrin low likely caused by malnutrition, inflammation, liver disease as noted by increased LFTs, which have been trending down. Will follow up with peripheral smear. Clinically stable.
--- NOTE | 2018-03-16 14:27 | PN ---
DATE: 03/16/2018 SUBJECTIVE: In short, the patient is 37-year-old female with end-stage AIDS with cachexia. The patient was admitted on the medical side for sepsis, end-stage acquired immune deficiency syndrome with pneumocystis carinii. The patient also has history of anxiety, IV drug use of heroin and the patient is currently on methadone. Psych consult was called for evaluation of depressive symptoms and medication management. This engineering writer is following the patient for past 3 days. Due to elevated liver enzymes at the time of admission, Klonopin was discontinued and Ativan was given to the patient. The patient appears to be anxious. liver enzymes are trending down. The patient requested Klonopin to be resumed, we will do so. The patient reported that she has bad insomnia. This engineering writer will discontinue Paxil. We will start Remeron, which could give relief from the depressive symptoms, boost appetite as well as will give good night sleep to the patient hopefully. MEDICATIONS: Reviewed. Albuterol, Mepron, clindamycin, doxycycline, Lovenox, Motrin, Ativan, magnesium oxide, meropenem, methadone 140 mg daily, Solu-Medrol, Protonix, Paxil will be discontinued, primaquine, sodium chloride. Remeron will be given at the nighttime 15 mg. VITAL SIGNS: Reviewed. Temperature 97.4, pulse is 79, blood pressure 118/83, respirations 18, oxygen saturation is 96. Medications reviewed albuterol Klonopin. Risks, benefits and alternatives discussed with the patient. Labs reviewed. AST and ALT is trending down. Yesterday, it was 425 and 225 and today, is 213 and 181 respectively. MENTAL STATUS EXAMINATION: The patient appears to be alert, somewhat psychomotor retarded, intermittent eye contact. Speech was underproductive, low volume. Mood described, I do not feel good. Affect was constricted. Thought process coherent and goal directed. Thought content, the patient denied visual, auditory, tactile hallucinations. Denied paranoid ideation. The patient denied thoughts of harming herself or others. Denied intent or plan. Insight and judgment seems to be improving. Impulses are well controlled. IMPRESSION: Rule out mood disorder due to general medical condition, rule out anxiety disorder due to general medical condition, history of IV use of heroin. The patient is on maintenance dose of methadone. PLAN: Continue current management. Paxil was discontinued. Remeron was started 15 mg for depression and insomnia and to boost appetite. Risks, benefits and alternatives discussed with the patient. Ativan was discontinued. Klonopin was resumed. Meanwhile, continue current management and we will follow up and advise accordingly. Thank you very much for letting me participate in care of your patient. Celia Cho MD
--- NOTE | 2018-03-16 15:31 | PN ---
DATE: 03/16/2018 PULMONARY PROGRESS NOTE REFERRING PHYSICIAN: Efrain Claire MD. SUBJECTIVE: She is sitting on side of the bed, having lunch. Night was unremarkable. Feels better. Still has cough, shortness of breath, wheezing. No nausea. No vomiting, diarrhea, leg pain, leg swelling. OBJECTIVE: GENERAL: In no acute distress. VITAL SIGNS: Temp is 98, heart rate is 79, respiratory rate is 20, blood pressure 118/83, pulse ox 96% on nasal cannula. HEENT: Moist mucous membrane. No ulcer or thrush noted. NECK: Supple. No JVD. LUNGS: Have a few crackles and rhonchi. HEART: S1 and S2. ABDOMEN: Soft, nontender. No organomegaly. EXTREMITIES: No edema. NEUROLOGICAL: Awake and alert. Follows simple command. LABORATORY DATA: Shows hemoglobin 8.9, hematocrit 28, WBC 3.2, platelet count is 96. INR 0.9, PTT is 30. Sodium 142, potassium 4.6, chloride 105, bicarbonate 29, BUN 20, creatinine 0.7, glucose is 100, calcium is 8.9, AST 213, ALT 181, alk phos is 450, albumin is 2.6. Microbiology: Blood culture has been negative. MEDICATIONS: She is on clindamycin 600 mg every 8 hours, doxycycline 100 mg twice day, DuoNeb every 2 hours p.r.n. and every 4 hours [id number], Klonopin 0.5 mg at bedtime p.r.n. and 0.5 mg twice a day [id number], Lovenox 40 mg daily, mag oxide 400 mg twice a day, Mepron 750 mg twice a day, meropenem 1 g IV every 8 hours, methadone 140 mg daily, Motrin 800 mg three times a day p.r.n., primaquine 26.3 mg daily, Protonix 40 mg daily, Remeron is at 15 mg at bedtime, IV fluid normal saline 70 mL per hour, Solu-Medrol 30 mg every 12 hours. IMPRESSION AND PLAN: Acquired immunodeficiency syndrome, obstructive lung disease with bronchiolitis, substance abuse, methadone dependent. Being followed by Infectious Diseases. Pulmonary point of view, continue steroids, inhaled bronchodilator. Supplement oxygen. Gastric prophylaxis. Deep venous thrombosis prophylaxis. Thank you and we will follow with you. Cara Barajas MD [facility] # [id number]
--- NOTE | 2018-03-16 15:39 | PN ---
DATE: 03/16/2018 SUBJECTIVE: Patient is in bed, in no acute distress. PHYSICAL EXAMINATION: VITAL SIGNS: Temperature is 98, blood pressure is 118/80, respiratory rate of 18. HEENT: Unremarkable. NECK: Supple. LUNGS: Decreased breath sounds. HEART: Normal S1 and S2. ABDOMEN: Soft, nontender. LABORATORY DATA: Reveals a white count of 3.2, hemoglobin of 8. Chemistries are noted. Immunology reveals her T-cells are noted and cryptococcal antigen is not detected. IgG, CMV positive. IgM is negative. We will continue the current therapy for her PCP and will follow closely with you. Cheikh Chou MD
--- NOTE | 2018-03-16 18:18 | PN ---
DATE: 03/15/2018 SUBJECTIVE: The patient's breathing is better. She has no chest pain, seems stable. She seems a little bit more sedated. She is currently on Ativan because of her liver disease and Ativan for sedation and anxiety plus methadone 150. The patient has no other complaint. No abdominal pain, no nausea, no vomiting. PHYSICAL EXAMINATION: VITAL SIGNS: Please be advised this is a note for 03/15/2018, temperature 98.6, heart rate 81, blood pressure 117/80, respiration 20, and saturating 96% on room air. HEAD AND NECK: Normal. No JVD. No thyromegaly. CHEST: Clear with rhonchi in both lower lungs bilaterally. CARDIAC: First sound and second sound normal. No murmur, rub, or gallop. ABDOMEN: Soft, nontender. EXTREMITIES: No edema. NEUROLOGIC: Normal, but the patient has poor muscle mass. LABORATORY STUDY: Shows white count 3.7, hemoglobin 9.1, hematocrit 28.8, platelets 91. Chemistry shows sodium 142, potassium 5, chloride 108, bicarb 26. BUN 22, creatinine 0.8. Liver function test is normal. The patient's liver enzymes seemed going down. ALT 222, AST 425, alkaline phosphatase 560. The patient has transferrin saturation of 153, which is low, and also the patient underwent some reports including a gallbladder ultrasound and liver ultrasound, which showed no intrahepatic bile duct dilatation, unremarkable gallbladder, no gallstones, fatty infiltration of the liver, distended gallbladder with no stones. The patient also had an electrocardiogram on methadone and her QTc is 451 which is less than before. IMPRESSION AND PLAN: 1. The patient has bilateral pneumonia in an immunocompromised patient with advanced human immunodeficiency virus, noncompliant. We will continue current medication. Currently, she is getting doxycycline 100 p.o. every 12 hours. Clindamycin, she is getting it 600 mg IV every 8 hours. She is also getting atovaquone or Mepron 750 mg p.o. b.i.d. She is getting Merrem 1 g IV every 8 hours and she is also getting primaquine 26.3 mg p.o. daily. In addition, today, she is getting steroids 30 mg IV every 12 hours for underlying chronic obstructive pulmonary disease plus nebulizer treatments [id number] and p.r.n. every 2 hours. We will continue oxygen, monitor saturations. Follow up with ID consult as well as Pulmonary consults. 2. History of drug abuse. She is on methadone 150; concerned about sedation, adding Ativan to methadone with liver disease and QT prolongations; last EKG seems better. We will decrease the methadone to 140 mg daily for now and we will monitor her clinically and mental status. Continue also ibuprofen p.r.n. for pain and the patient seems otherwise stable. 3. Cholestasis or hepatitis, probably drug-induced or could be human immunodeficiency virus related. We will discuss with ID consult. At this time, liver enzymes seemed to be going down and we will follow up clinically. 4. Continue gastrointestinal and deep venous thrombosis prophylaxis, encourage p.o. intake, and we will follow up with psychiatry consult as well as with the hematology consult for pancytopenia. Please be advised this is a note for 03/15/2018. Macario Carter MD
--- NOTE | 2018-03-16 20:48 | PN ---
DATE: 03/16/2018 SUBJECTIVE: The patient is stable. Sitting on the edge of the bed. No respiratory distress. No nausea. No vomiting. Getting the IV antibiotics and seems a little better, more alert. PHYSICAL EXAMINATION: VITAL SIGNS: Today, temperature 98.5, heart rate 88, blood pressure 120/88, respirations 20, sat 98% on 2 L. HEAD AND NECK: Normal. No JVD. No thyromegaly. CHEST: Few bilateral basal rhonchi bilaterally. CARDIAC: First sound and second sound normal. No murmur, rub or gallop. ABDOMEN: Soft, nontender. EXTREMITIES: No edema. NEUROLOGIC: Nonfocal, normal. LABORATORY DATA: White count 3.2, hemoglobin 8.9, hematocrit 28, platelets 96. Chemistries: Sodium 142, potassium 4.6, chloride 105, bicarb 29, BUN 20, creatinine 0.7 and calcium 8.9. Iron 61, saturation 23%. Liver function test is coming down. AST 216, ALT is 181 and alk phos is 450. IMPRESSION AND PLAN: 1. Recurrent pneumonia and immunocompromised. The patient has advanced human immunodeficiency virus, noncompliant. Continue clindamycin. Continue doxycycline. Continue Mepron or atovaquone 750 b.i.d. Continue meropenem 1 g IV every 8. The patient is also getting primaquine 26.3 mg p.o. daily and seems doing well on these current medications. Continue inhaled bronchodilator. Continue IV steroid 30 mg IV every 12. 2. Underlying anxiety. The patient is getting clonidine 0.5 mg b.i.d., 0.5 mg at bedtime. Seems doing well with that. We will continue current medications. 3. Drug abuse. History of heroin abuse and currently on methadone. We decreased the dose to 140 mg daily. We will continue current regimen and we will follow up clinically. Continue current therapy. The patient was given also Remeron 15 mg at bedtime to increase her appetite and as a form of antidepressant, which has been placed by Dr. Yang, we will continue that and we will keep monitoring any QT changes. Macario Carter MD
[2018-03-17] MEDS: Albuterol-Ipratrop 3 mg / 0.5 (3 ml) UD IH SCH ×7 (01:50→23:40)
[2018-03-17] MEDS: Meropenem IV 1 gm in NS 50 ML IVPB SCH ×3 (06:17→21:27)
[2018-03-17] MEDS: Pantoprazole 40 mg EC Tab PO SCH (06:17)
--- NOTE | 2018-03-17 07:17 | CP.PCM.PN ---
Subjective - Date & Time of Evaluation Date of Evaluation: 03/17/18 Time of Evaluation: 07:05 - Subjective Subjective: Sleeping but easily awaken,lying in bed, denies shortness of breath, denies chest pain Reason for consultation and follow up: Cardiac evaluation, shortness of breath, pulmonary hypertension,heavy smoker, HIV positive,on Methadone treatment, history of cocaine and heroine abuse, end stage AIDS,Hepatitis C, pneumonia, COPD Seen and examined by me and Dr. Veliz Objective - Vital Signs/Intake and Output Vital Signs (last 24 hours): Temp Pulse Resp BP Pulse Ox 98.8 F 81 18 112/75 94 L 03/16/18 22:00 03/16/18 22:00 03/16/18 22:00 03/16/18 22:00 03/16/18 22:00 Intake and Output: 03/17/18 03/17/18 06:59 18:59 Intake Total 1700 Output Total 2 Balance 1698 - Medications Medications: Current Medications Albuterol/Ipratropium (Duoneb 3 Mg/0.5 Mg (3 Ml) Ud) 3 ml IH Q2H PRN PRN Reason: Shortness of Breath Albuterol/Ipratropium (Duoneb 3 Mg/0.5 Mg (3 Ml) Ud) 3 ml IH [id number] [facility] Last Admin: 03/17/18 04:57 Dose: 3 ml Atovaquone (Mepron) 750 mg PO BID [facility] PRN Reason: Protocol Stop: 03/21/18 18:01 Last Admin: 03/16/18 17:03 Dose: 750 mg Clonazepam (Klonopin) 0.5 mg PO BID [facility] PRN Reason: Protocol Last Admin: 03/16/18 17:03 Dose: 0.5 mg Clonazepam (Klonopin) 0.5 mg PO HS PRN; Protocol PRN Reason: anxiety/insomnia Doxycycline Hyclate (Doryx) 100 mg PO Q12 [facility] PRN Reason: Protocol Stop: 03/21/18 22:01 Last Admin: 03/16/18 21:25 Dose: 100 mg Enoxaparin Sodium (Lovenox) 40 mg SC DAILY [facility] PRN Reason: Protocol Last Admin: 03/16/18 10:11 Dose: 40 mg Sodium Chloride (Sodium Chloride 0.9%) 1,000 mls @ 70 mls/hr IV .[id number] [facility] Last Admin: 03/16/18 17:06 Dose: 70 mls/hr Clindamycin Phosphate 600 mg/ (Sodium Chloride) 54 mls @ 102 mls/hr IVPB Q8 [facility] PRN Reason: Protocol Stop: 03/21/18 22:01 Last Admin: 03/17/18 05:13 Dose: 102 mls/hr Meropenem (Merrem Iv 1 Gm Premix) 50 mls @ 100 mls/hr IVPB Q8 [facility] PRN Reason: Protocol Stop: 03/21/18 22:01 Last Admin: 03/17/18 06:17 Dose: 100 mls/hr Ibuprofen (Motrin Tab) 800 mg PO TID PRN PRN Reason: Pain, moderate (4-7) Last Admin: 03/15/18 20:22 Dose: 800 mg Methadone HCl (Methadone) 140 mg PO DAILY [facility] Last Admin: 03/16/18 10:10 Dose: 140 mg Methylprednisolone (Solu-Medrol) 30 mg IVP Q12 [facility] Last Admin: 03/16/18 21:25 Dose: 30 mg Mirtazapine (Remeron) 15 mg PO HS [facility] Last Admin: 03/16/18 21:25 Dose: 15 mg Pantoprazole Sodium (Protonix Ec Tab) 40 mg PO 0600 [facility] Last Admin: 03/17/18 06:17 Dose: 40 mg Primaquine Phosphate (Primaquine) 26.3 mg PO DAILY [facility] PRN Reason: Protocol Stop: 03/22/18 10:01 Last Admin: 03/16/18 10:10 Dose: 26.3 mg - Labs Labs: 03/16/18 09:00 03/16/18 09:00 PT 10.3 SECONDS (9.4-12.5) 03/16/18 09:00 INR 0.90 (0.93-1.08) L 03/16/18 09:00 APTT 30.2 Seconds (25.1-36.5) 03/16/18 09:00 - Constitutional Appears: No Acute Distress, Cachectic - Head Exam Head Exam: NORMOCEPHALIC - ENT Exam ENT Exam: Mucous Membranes Moist - Respiratory Exam Respiratory Exam: Decreased Breath Sounds, NORMAL BREATHING PATTERN Additional comments: NC 2l/min - Cardiovascular Exam Cardiovascular Exam: +S1, +S2 - GI/Abdominal Exam GI & Abdominal Exam: Soft, Normal Bowel Sounds - Extremities Exam Extremities Exam: Normal Capillary Refill - Neurological Exam Neurological Exam: Alert, Awake, Oriented x3 - Psychiatric Exam Psychiatric exam: Normal Affect, Normal Mood - Skin Skin Exam: Intact, Normal Color, Warm Assessment and Plan - Assessment and Plan (Free Text) Assessment: A 37 year old female who came in to the ER due shortness of breath and leg swelling. History of pneumocystis carinii,heavy smoker, HIV positive,on Methadone treatment, history of cocaine and heroine abuse, end stage AIDS, Hepatitis C, pneumonia, COPD. Plan: Clinically better than baseline Pneumonia ID and Pulmonary on consult Continue as ordered Merrem,Clindamycin and Doxycycline on Methadone Stable cardiac status Heart rate and blood pressure stable Continue current treatment Continue current medications Smoking cessation Lifestyle modifications Will follow up PLan and treatment discussed with Dr. Veliz
[2018-03-17 09:50] LABS: SOURCE: PLASMA
[2018-03-17] MEDS: Sodium Chloride 0.9% 1,000 ML IV SCH (10:02)
[2018-03-17] MEDS: Enoxaparin 40 mg Syringe SC SCH (10:05)
[2018-03-17] MEDS: Atovaquone 750 mg/5 ml Susp UD PO SCH ×2 (10:06→18:02)
[2018-03-17] MEDS: MethylPREDNISolone 40 mg Vial IVP SCH ×2 (10:06→21:28)
[2018-03-17] MEDS: Primaquine 26.3 mg Tab PO SCH (10:07)
--- NOTE | 2018-03-17 11:12 | CP.PCM.PN ---
<Marquita Jalloh - Last Filed: 03/17/18 11:11> Subjective - Date & Time of Evaluation Date of Evaluation: 03/17/18 Time of Evaluation: 10:30 - Subjective Subjective: S&E at bedside, chart reviewed, no acute overnight events reported. No fever, chills, SOB, CP, N/V or abdominal apin, Having BM, describe as "balls", no melena or BRBPR, denies constipation. Tolerating oral intake. Objective - Vital Signs/Intake and Output Vital Signs (last 24 hours): Temp Pulse Resp BP Pulse Ox 98 F 79 20 110/70 100 03/17/18 08:39 03/17/18 08:39 03/17/18 08:39 03/17/18 08:39 03/17/18 08:39 Intake and Output: 03/17/18 03/17/18 06:59 18:59 Intake Total 1700 Output Total 2 Balance 1698 - Medications Medications: Current Medications Albuterol/Ipratropium (Duoneb 3 Mg/0.5 Mg (3 Ml) Ud) 3 ml IH Q2H PRN PRN Reason: Shortness of Breath Albuterol/Ipratropium (Duoneb 3 Mg/0.5 Mg (3 Ml) Ud) 3 ml IH [id number] [facility] Last Admin: 03/17/18 07:25 Dose: Not Given Atovaquone (Mepron) 750 mg PO BID [facility] PRN Reason: Protocol Stop: 03/21/18 18:01 Last Admin: 03/17/18 10:06 Dose: 750 mg Clonazepam (Klonopin) 0.5 mg PO BID [facility] PRN Reason: Protocol Last Admin: 03/17/18 10:08 Dose: 0.5 mg Clonazepam (Klonopin) 0.5 mg PO HS PRN; Protocol PRN Reason: anxiety/insomnia Doxycycline Hyclate (Doryx) 100 mg PO Q12 [facility] PRN Reason: Protocol Stop: 03/21/18 22:01 Last Admin: 03/17/18 10:08 Dose: 100 mg Enoxaparin Sodium (Lovenox) 40 mg SC DAILY [facility] PRN Reason: Protocol Last Admin: 03/17/18 10:05 Dose: 40 mg Sodium Chloride (Sodium Chloride 0.9%) 1,000 mls @ 70 mls/hr IV .[id number] [facility] Last Admin: 03/17/18 10:02 Dose: 70 mls/hr Clindamycin Phosphate 600 mg/ (Sodium Chloride) 54 mls @ 102 mls/hr IVPB Q8 [facility] PRN Reason: Protocol Stop: 03/21/18 22:01 Last Admin: 03/17/18 05:13 Dose: 102 mls/hr Meropenem (Merrem Iv 1 Gm Premix) 50 mls @ 100 mls/hr IVPB Q8 [facility] PRN Reason: Protocol Stop: 03/21/18 22:01 Last Admin: 03/17/18 06:17 Dose: 100 mls/hr Ibuprofen (Motrin Tab) 800 mg PO TID PRN PRN Reason: Pain, moderate (4-7) Last Admin: 03/15/18 20:22 Dose: 800 mg Methadone HCl (Methadone) 140 mg PO DAILY [facility] Last Admin: 03/17/18 10:08 Dose: 140 mg Methylprednisolone (Solu-Medrol) 30 mg IVP Q12 [facility] Last Admin: 03/17/18 10:06 Dose: 30 mg Mirtazapine (Remeron) 15 mg PO HS [facility] Last Admin: 03/16/18 21:25 Dose: 15 mg Pantoprazole Sodium (Protonix Ec Tab) 40 mg PO 0600 [facility] Last Admin: 03/17/18 06:17 Dose: 40 mg Primaquine Phosphate (Primaquine) 26.3 mg PO DAILY [facility] PRN Reason: Protocol Stop: 03/22/18 10:01 Last Admin: 03/17/18 10:07 Dose: 26.3 mg - Labs Labs: 03/16/18 09:00 03/16/18 09:00 PT 10.3 SECONDS (9.4-12.5) 03/16/18 09:00 INR 0.90 (0.93-1.08) L 03/16/18 09:00 APTT 30.2 Seconds (25.1-36.5) 03/16/18 09:00 - Constitutional Appears: No Acute Distress - Head Exam Head Exam: NORMOCEPHALIC - Eye Exam Eye Exam: Normal appearance. absent: Scleral icterus - ENT Exam ENT Exam: Mucous Membranes Moist - Respiratory Exam Respiratory Exam: NORMAL BREATHING PATTERN. absent: Respiratory Distress - Cardiovascular Exam Cardiovascular Exam: +S1, +S2 - GI/Abdominal Exam GI & Abdominal Exam: Soft, Normal Bowel Sounds. absent: Guarding, Tenderness, Organomegaly, Rebound - Extremities Exam Extremities Exam: absent: Calf Tenderness, Pedal Edema - Neurological Exam Neurological Exam: Alert, Awake, Oriented x3 - Skin Skin Exam: Dry, Warm Assessment and Plan - Assessment and Plan (Free Text) Assessment: Assessment: Pnuemonia Elevated LFT liley due to medication, was on Zpak/mortin, hypoperfusion, epeisode low BP Chronic hepatitis Former drug abuse End stage AIDS Plan: US of abd showed fatty liver, distended gallbladder, no stones LFTs continue to downtrending, will continue to trend continue PPI diet as tolerated on Lovenox on oral antibiotics start Colace daily for hard stools case seen and discussed with Dr. Centeno <Anne Centeno V - Last Filed: 03/17/18 23:05> Objective - Vital Signs/Intake and Output Vital Signs (last 24 hours): Temp Pulse Resp BP Pulse Ox 97.9 F 84 20 110/78 96 03/17/18 22:02 03/17/18 22:02 03/17/18 22:02 03/17/18 22:02 03/17/18 22:02 Intake and Output: 03/17/18 03/18/18 18:59 06:59 Intake Total 660 Balance 660 - Medications Medications: Current Medications Albuterol/Ipratropium (Duoneb 3 Mg/0.5 Mg (3 Ml) Ud) 3 ml IH Q2H PRN PRN Reason: Shortness of Breath Albuterol/Ipratropium (Duoneb 3 Mg/0.5 Mg (3 Ml) Ud) 3 ml IH [id number] [facility] Last Admin: 03/17/18 21:05 Dose: Not Given Clonazepam (Klonopin) 0.5 mg PO BID [facility] PRN Reason: Protocol Last Admin: 03/17/18 18:02 Dose: 0.5 mg Clonazepam (Klonopin) 0.5 mg PO HS PRN; Protocol PRN Reason: anxiety/insomnia Docusate Sodium (Colace) 100 mg PO DAILY [facility] Last Admin: 03/17/18 15:04 Dose: 100 mg Enoxaparin Sodium (Lovenox) 40 mg SC DAILY [facility] PRN Reason: Protocol Last Admin: 03/17/18 10:05 Dose: 40 mg Sodium Chloride (Sodium Chloride 0.9%) 1,000 mls @ 70 mls/hr IV .[id number] [facility] Last Admin: 03/17/18 10:02 Dose: 70 mls/hr Clindamycin Phosphate 900 mg/ (Sodium Chloride) 106 mls @ 106 mls/hr IVPB Q8 [facility] PRN Reason: Protocol Stop: 04/07/18 22:31 Last Admin: 03/17/18 22:43 Dose: Not Given Ibuprofen (Motrin Tab) 800 mg PO TID PRN PRN Reason: Pain, moderate (4-7) Last Admin: 03/15/18 20:22 Dose: 800 mg Methadone HCl (Methadone) 140 mg PO DAILY [facility] Last Admin: 03/17/18 10:08 Dose: 140 mg Methylprednisolone (Solu-Medrol) 30 mg IVP Q12 [facility] Last Admin: 03/17/18 21:28 Dose: 30 mg Mirtazapine (Remeron) 30 mg PO HS [facility] Last Admin: 03/17/18 21:28 Dose: 30 mg Pantoprazole Sodium (Protonix Ec Tab) 40 mg PO 0600 [facility] Last Admin: 03/17/18 06:17 Dose: 40 mg Primaquine Phosphate (Primaquine) 26.3 mg PO DAILY [facility] PRN Reason: Protocol Stop: 03/22/18 10:01 Last Admin: 03/17/18 10:07 Dose: 26.3 mg - Labs Labs: 03/16/18 09:00 03/16/18 09:00 PT 10.3 SECONDS (9.4-12.5) 03/16/18 09:00 INR 0.90 (0.93-1.08) L 03/16/18 09:00 APTT 30.2 Seconds (25.1-36.5) 03/16/18 09:00 Attending/Attestation - Attestation I have personally seen and examined this patient.: Yes I have fully participated in the care of the patient.: Yes I have reviewed all pertinent clinical information, including history, physical exam and plan: Yes Notes (Text): This is an addendum to GI progress report dictated by the [employer].The patient was seen and examined earlier. Medical records, lab studies, imagings were reviewed. Last 24 hours events reviewed. Agreed with the above treatment plan as outlined in [employer] 's notes the with the addition of the following 03/17/18 23:05
--- NOTE | 2018-03-17 13:53 | PN ---
DATE: 03/17/2018 SUBJECTIVE: The patient has followup today. The patient presented much better to compare with the past 2 days. The patient is less anxious, was observed eating, seems to be in good appetite. The patient is less anxious. No tremor in upper extremities. The patient complained that she was not able to sleep, but slept better to compare with Paxil. The patient likes medication Remeron and willing to increase the dose. The patient denied being depressed. Denied suicidal ideation. Denied hearing voices. Denied seeing things. VITAL SIGNS: Seems to be stable. MEDICATIONS: Reviewed. Klonopin was resumed yesterday 0.5 mg twice a day. The patient seems to tolerate that medication well, mirtazapine will be increased to 30 mg tonight. LABORATORY DATA: Reviewed. Chemistry reviewed. MENTAL STATUS EXAMINATION: The patient appears to be alert and oriented, pleasant, cooperative. Hygiene is better. Intermittent eye contact. Mood described as depressed. Affect was constricted. Mood congruent. Thought process concrete. Thought content, the patient denied visual, auditory or tactile hallucinations. Denied paranoid ideations. The patient denied thoughts of harming herself or others. Denied intents or plan. Insight and judgment seems to be fair. Impulses are well controlled. IMPRESSION: Rule out mood disorder, anxiety disorder due to general medical condition. The patient has a lot of medical issues. Please see Dr. Carter's note. PLAN: Remeron increased. Klonopin was resumed. The patient is on methadone maintenance. Dr. Gutierrez will follow up on this patient tomorrow. The patient deemed to be improving. Thank you very much for letting me participate in the care of your patient. Celia Cho MD
--- NOTE | 2018-03-17 16:13 | PN ---
DATE: 03/17/2018 REASON FOR DICTATION: Addendum to the initial progress note dictated by nurse practitioner. REASON FOR ADDENDUM: The patient has a history of HIV related pneumonia and shortness of breath. No active cardiac problem at this time. Echo done dated 02/08/2018 that shows ejection fraction 51%, low normal; left ventricular size normal; normal wall thickness; right ventricle moderately dilated; RV systolic pressure moderately reduced; mild tricuspid regurgitation present; mild pulmonary hypertension; RV systolic pressure 46; mild mitral regurgitation. RECOMMENDATIONS: Continue treatment for HIV. No active cardiac problem. We will signoff and glad to follow p.r.n. Thank you, Dr. Carter, for providing me the opportunity in taking care of the patient, Veronica Ruiz. Cara Veliz MD
--- NOTE | 2018-03-17 21:55 | PN ---
DATE: 03/17/2018 PULMONARY PROGRESS NOTE REFERRING PHYSICIAN: Efrain Claire MD. SUBJECTIVE: She is lying in the bed, sleepy, arousable. Night was unremarkable. Feels weak. Still has cough and sputum production. No nausea. No vomiting, diarrhea, leg pain, leg swelling. OBJECTIVE: GENERAL: In no acute distress. VITAL SIGNS: Temp is 98, heart rate is 86, respiratory rate is 20, blood pressure 114/78, pulse ox 92% on nasal cannula. HEENT: Moist mucous membrane. NECK: Supple. No JVD. LUNGS: Have a scattered rhonchi, few wheezing. HEART: S1 and S2. ABDOMEN: Soft and nontender. No organomegaly. EXTREMITIES: No edema. NEUROLOGICAL: Awake and alert. Follows simple command. LABORATORY DATA: Reviewed, noted. No new lab is available since yesterday. Microbiology: Blood culture has been negative. MEDICATIONS: She is on clindamycin 600 mg every 8 hours, Colace 100 mg daily, doxycycline 100 mg twice a day, albuterol/Atrovent nebulizer every 2 hours p.r.n. and every 4 hours [id number], Klonopin 0.5 mg at bedtime p.r.n., clonazepam 0.5 mg twice a day, Lovenox 40 mg daily, meropenem 1 g IV every 8 hours, methadone 140 mg daily, Motrin 800 mg three times a day, primaquine 26.3 mg daily, Protonix 40 mg daily, Remeron 30 mg at bedtime. Normal saline 70 mL per hour, Solu-Medrol 30 mg every 12 hours. IMPRESSION AND PLAN: Chronic obstructive lung disease with bronchiolitis, substance abuse, acquired immune deficiency syndrome, methadone dependent. The patient is seen by psychiatrist. Pulmonary point of view, slowly improving. Continue steroids, antibiotics, supplement oxygen. Gastric prophylaxis. Fall precaution. Thank you and we will follow with you. Cara Barajas MD
--- NOTE | 2018-03-18 03:18 | PN ---
DATE: 03/17/2018 SUBJECTIVE: Patient was seen in 578, bed 2, this morning. She is tolerating antibiotics well. No diarrhea. PHYSICAL EXAMINATION: VITAL SIGNS: Temperature is 98, blood pressure is 110/70, respiratory rate of 18, heart rate of 84. HEENT: Unremarkable. NECK: Supple. LUNGS: Decreased breath sounds. HEART: Normal S1 and S2. ABDOMEN: Soft. LABORATORY DATA: Reveals a white count of 3.2, hemoglobin of 8.9. Chemistries are noted, and LFTs are greatly improved, and the patient is anemic. CD4 count of less than 20 at 1%, and cryptococcal antigen is negative. CMV PCR is negative. The patient does have (1-3)-pzmz-G-Pxgsvu positive and hepatitis C is positive. Review of orders reveals the patient to be on Primaquine. The patient is supposed to be on clindamycin, but pharmacy has dropped the clindamycin, and doxycycline and meropenem and Mepron. 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 Continue clindamycin and Primaquine. Negative blood cultures. Cheikh Chou MD
[2018-03-18] MEDS: Albuterol-Ipratrop 3 mg / 0.5 (3 ml) UD IH SCH ×5 (04:42→20:40)
[2018-03-18] MEDS: Pantoprazole 40 mg EC Tab PO SCH (05:51)
[2018-03-18 07:48] LABS: GRAN # 2.58 (1.4-6.5); GRAN % 73.5 % (50.0-68.0); HEMOGLOBIN 8.8 g/dL (12.0-16.0); LYMPH # 0.5 (1.2-3.4); LYMPH % 12.8 % (22.0-35.0); MEAN CELL VOLUME 85.2 fl (80.0-105.0); MEAN CORPUSCULAR HEMOGLOBIN 26.6 pg (25.0-35.0); MEAN CORPUSCULAR HGB CONC 31.2 g/dl (31.0-37.0); MEAN PLATELET VOLUME 9.4 fl (7.0-11.0); MONO # 0.5 (0.1-0.6); MONO % 13.7 % (1.0-6.0); RBC 3.31 10^6/uL (3.5-6.1); RED CELL DISTRIBUTION WIDTH 17.9 % (11.5-14.5); WHITE BLOOD COUNT 3.5 10^3/ul (4.5-11.0)
[2018-03-18 07:58] LABS: ALB/GLOB RATIO 0.7 (1.1-1.8); ALBUMIN 2.6 g/dL (3.0-4.8); ALT/SGPT 118 U/L (7-56); AST/SGOT 75 U/L (14-36); BLOOD UREA NITROGEN 27 mg/dL (7-21); CALCIUM 8.8 mg/dL (8.4-10.5); GFR AFRICAN-AMERICAN > 60; GFR NON-AFRICAN AMERICAN > 60
[2018-03-18] MEDS: MethylPREDNISolone 40 mg Vial IVP SCH (10:04)
[2018-03-18] MEDS: Enoxaparin 40 mg Syringe SC SCH (10:05)
[2018-03-18] MEDS: Primaquine 26.3 mg Tab PO SCH (10:05)
--- NOTE | 2018-03-18 10:16 | CP.PCM.PN ---
<Marquita Jalloh - Last Filed: 03/18/18 10:17> Subjective - Date & Time of Evaluation Date of Evaluation: 03/18/18 Time of Evaluation: 09:30 - Subjective Subjective: Seen and examined at bedside, chart reviewed. No c/o N/V or abdominal pain. No acute overnight events reported. Had formed stool this am, no melana or BRBPR. Tolerating oral intake. LFT continue to trend downwards. Objective - Vital Signs/Intake and Output Vital Signs (last 24 hours): Temp Pulse Resp BP Pulse Ox 98.2 F 94 H 18 119/78 93 L 03/18/18 06:00 03/18/18 06:00 03/18/18 06:00 03/18/18 06:00 03/18/18 06:00 Intake and Output: 03/18/18 03/18/18 06:59 18:59 Intake Total 1740 Balance 1740 - Medications Medications: Current Medications Albuterol/Ipratropium (Duoneb 3 Mg/0.5 Mg (3 Ml) Ud) 3 ml IH Q2H PRN PRN Reason: Shortness of Breath Albuterol/Ipratropium (Duoneb 3 Mg/0.5 Mg (3 Ml) Ud) 3 ml IH [id number] [facility] Last Admin: 03/18/18 07:18 Dose: 3 ml Clonazepam (Klonopin) 0.5 mg PO BID [facility] PRN Reason: Protocol Last Admin: 03/18/18 10:07 Dose: 0.5 mg Clonazepam (Klonopin) 0.5 mg PO HS PRN; Protocol PRN Reason: anxiety/insomnia Docusate Sodium (Colace) 100 mg PO DAILY [facility] Last Admin: 03/18/18 10:04 Dose: 100 mg Enoxaparin Sodium (Lovenox) 40 mg SC DAILY [facility] PRN Reason: Protocol Last Admin: 03/18/18 10:05 Dose: 40 mg Sodium Chloride (Sodium Chloride 0.9%) 1,000 mls @ 70 mls/hr IV .[id number] [facility] Last Admin: 03/17/18 10:02 Dose: 70 mls/hr Clindamycin Phosphate 900 mg/ (Sodium Chloride) 106 mls @ 106 mls/hr IVPB Q8 [facility] PRN Reason: Protocol Stop: 04/07/18 22:31 Last Admin: 03/18/18 05:03 Dose: 106 mls/hr Ibuprofen (Motrin Tab) 800 mg PO TID PRN PRN Reason: Pain, moderate (4-7) Last Admin: 03/15/18 20:22 Dose: 800 mg Methadone HCl (Methadone) 140 mg PO DAILY [facility] Last Admin: 03/18/18 10:05 Dose: 140 mg Methylprednisolone (Solu-Medrol) 30 mg IVP Q12 [facility] Last Admin: 03/18/18 10:04 Dose: 30 mg Mirtazapine (Remeron) 30 mg PO HS [facility] Last Admin: 03/17/18 21:28 Dose: 30 mg Pantoprazole Sodium (Protonix Ec Tab) 40 mg PO 0600 [facility] Last Admin: 03/18/18 05:51 Dose: 40 mg Primaquine Phosphate (Primaquine) 26.3 mg PO DAILY [facility] PRN Reason: Protocol Stop: 03/22/18 10:01 Last Admin: 03/18/18 10:05 Dose: 26.3 mg - Labs Labs: 03/18/18 07:15 03/18/18 07:15 PT 10.3 SECONDS (9.4-12.5) 03/16/18 09:00 INR 0.90 (0.93-1.08) L 03/16/18 09:00 APTT 30.2 Seconds (25.1-36.5) 03/16/18 09:00 - Constitutional Appears: No Acute Distress - Head Exam Head Exam: NORMOCEPHALIC - Eye Exam Eye Exam: Normal appearance. absent: Scleral icterus Pupil Exam: NORMAL ACCOMODATION - ENT Exam ENT Exam: Mucous Membranes Moist - Neck Exam Neck Exam: Normal Inspection - Respiratory Exam Respiratory Exam: Rhonchi, Wheezes, NORMAL BREATHING PATTERN. absent: Respiratory Distress - Cardiovascular Exam Cardiovascular Exam: +S1, +S2 - GI/Abdominal Exam GI & Abdominal Exam: Soft, Normal Bowel Sounds. absent: Guarding, Tenderness, Organomegaly, Rebound - Extremities Exam Extremities Exam: absent: Calf Tenderness, Pedal Edema - Neurological Exam Neurological Exam: Alert, Awake, Oriented x3 Assessment and Plan - Assessment and Plan (Free Text) Assessment: Assessment: Pneumonia Elevated LFT liley due to medication, was on Zpak/mortin, hypoperfusion, epeisode low BP Chronic hepatitis Former drug abuse End stage AIDS Plan: US of abd showed fatty liver, distended gallbladder, no stones LFTs continue to downtrend, will continue to FU continue PPI diet as tolerated on Methadone on Solumedrol on Lovenox on oral antibiotics continue Colace daily for hard stools case seen and discussed with Dr. Centeno <Anne Centeno V - Last Filed: 03/19/18 01:30> Objective - Vital Signs/Intake and Output Vital Signs (last 24 hours): Temp Pulse Resp BP Pulse Ox 98.6 F 102 H 20 112/77 95 03/18/18 22:01 03/18/18 22:01 03/18/18 22:01 03/18/18 22:01 03/18/18 22:01 Intake and Output: 03/18/18 03/19/18 18:59 06:59 Intake Total 660 Balance 660 - Medications Medications: Current Medications Albuterol/Ipratropium (Duoneb 3 Mg/0.5 Mg (3 Ml) Ud) 3 ml IH Q2H PRN PRN Reason: Shortness of Breath Albuterol/Ipratropium (Duoneb 3 Mg/0.5 Mg (3 Ml) Ud) 3 ml IH [id number] [facility] Last Admin: 03/19/18 00:40 Dose: 3 ml Clonazepam (Klonopin) 0.5 mg PO BID [facility] PRN Reason: Protocol Last Admin: 03/18/18 17:41 Dose: 0.5 mg Clonazepam (Klonopin) 0.5 mg PO HS PRN; Protocol PRN Reason: anxiety/insomnia Docusate Sodium (Colace) 100 mg PO DAILY [facility] Last Admin: 03/18/18 10:04 Dose: 100 mg Enoxaparin Sodium (Lovenox) 40 mg SC DAILY [facility] PRN Reason: Protocol Last Admin: 03/18/18 10:05 Dose: 40 mg Sodium Chloride (Sodium Chloride 0.9%) 1,000 mls @ 70 mls/hr IV .[id number] [facility] Last Admin: 03/17/18 10:02 Dose: 70 mls/hr Clindamycin Phosphate 900 mg/ (Sodium Chloride) 106 mls @ 106 mls/hr IVPB Q8 [facility] PRN Reason: Protocol Stop: 04/07/18 22:31 Last Admin: 03/18/18 22:22 Dose: 106 mls/hr Ibuprofen (Motrin Tab) 800 mg PO TID PRN PRN Reason: Pain, moderate (4-7) Last Admin: 03/15/18 20:22 Dose: 800 mg Methadone HCl (Methadone) 140 mg PO DAILY [facility] Last Admin: 03/18/18 10:05 Dose: 140 mg Methylprednisolone (Solu-Medrol) 20 mg IV Q12H [facility] Last Admin: 03/18/18 13:00 Dose: Not Given Mirtazapine (Remeron) 30 mg PO HS [facility] Last Admin: 03/18/18 22:22 Dose: 30 mg Pantoprazole Sodium (Protonix Ec Tab) 40 mg PO 0600 [facility] Last Admin: 03/18/18 05:51 Dose: 40 mg Primaquine Phosphate (Primaquine) 26.3 mg PO DAILY [facility] PRN Reason: Protocol Stop: 03/22/18 10:01 Last Admin: 03/18/18 10:05 Dose: 26.3 mg - Labs Labs: 03/18/18 07:15 03/18/18 07:15 PT 10.3 SECONDS (9.4-12.5) 03/16/18 09:00 INR 0.90 (0.93-1.08) L 03/16/18 09:00 APTT 30.2 Seconds (25.1-36.5) 03/16/18 09:00 Attending/Attestation - Attestation I have personally seen and examined this patient.: Yes I have fully participated in the care of the patient.: Yes I have reviewed all pertinent clinical information, including history, physical exam and plan: Yes Notes (Text): This is an addendum to GI progress report dictated by Arielle GarrettThe patient was seen and examined earlier. Medical records, lab studies, imagings were reviewed. Last 24 hours events reviewed. Agreed with the above treatment plan as outlined in notes the with the addition of the following 03/19/18 01:29
[2018-03-18] MEDS: MethylPREDNISolone 40 mg Vial IV SCH (13:00)
--- NOTE | 2018-03-18 15:16 | CP.PCM.PN ---
Subjective - Date & Time of Evaluation Date of Evaluation: 03/18/18 Time of Evaluation: 11:50 - Subjective Subjective: Breathing better, no fevers, no nausea, no diarrhea. Objective - Vital Signs/Intake and Output Vital Signs (last 24 hours): Temp Pulse Resp BP Pulse Ox 98.2 F 94 H 18 119/78 93 L 03/18/18 06:00 03/18/18 06:00 03/18/18 06:00 03/18/18 06:00 03/18/18 06:00 Intake and Output: 03/18/18 03/18/18 06:59 18:59 Intake Total 1740 Balance 1740 - Medications Medications: Current Medications Albuterol/Ipratropium (Duoneb 3 Mg/0.5 Mg (3 Ml) Ud) 3 ml IH Q2H PRN PRN Reason: Shortness of Breath Albuterol/Ipratropium (Duoneb 3 Mg/0.5 Mg (3 Ml) Ud) 3 ml IH [id number] [facility] Last Admin: 03/18/18 07:18 Dose: 3 ml Clonazepam (Klonopin) 0.5 mg PO BID [facility] PRN Reason: Protocol Last Admin: 03/18/18 10:07 Dose: 0.5 mg Clonazepam (Klonopin) 0.5 mg PO HS PRN; Protocol PRN Reason: anxiety/insomnia Docusate Sodium (Colace) 100 mg PO DAILY [facility] Last Admin: 03/18/18 10:04 Dose: 100 mg Enoxaparin Sodium (Lovenox) 40 mg SC DAILY [facility] PRN Reason: Protocol Last Admin: 03/18/18 10:05 Dose: 40 mg Sodium Chloride (Sodium Chloride 0.9%) 1,000 mls @ 70 mls/hr IV .[id number] [facility] Last Admin: 03/17/18 10:02 Dose: 70 mls/hr Clindamycin Phosphate 900 mg/ (Sodium Chloride) 106 mls @ 106 mls/hr IVPB Q8 [facility] PRN Reason: Protocol Stop: 04/07/18 22:31 Last Admin: 03/18/18 05:03 Dose: 106 mls/hr Ibuprofen (Motrin Tab) 800 mg PO TID PRN PRN Reason: Pain, moderate (4-7) Last Admin: 03/15/18 20:22 Dose: 800 mg Methadone HCl (Methadone) 140 mg PO DAILY [facility] Last Admin: 03/18/18 10:05 Dose: 140 mg Methylprednisolone (Solu-Medrol) 30 mg IVP Q12 [facility] Last Admin: 03/18/18 10:04 Dose: 30 mg Mirtazapine (Remeron) 30 mg PO HS [facility] Last Admin: 03/17/18 21:28 Dose: 30 mg Pantoprazole Sodium (Protonix Ec Tab) 40 mg PO 0600 [facility] Last Admin: 03/18/18 05:51 Dose: 40 mg Primaquine Phosphate (Primaquine) 26.3 mg PO DAILY [facility] PRN Reason: Protocol Stop: 03/22/18 10:01 Last Admin: 03/18/18 10:05 Dose: 26.3 mg - Labs Labs: 03/18/18 07:15 03/18/18 07:15 PT 10.3 SECONDS (9.4-12.5) 03/16/18 09:00 INR 0.90 (0.93-1.08) L 03/16/18 09:00 APTT 30.2 Seconds (25.1-36.5) 03/16/18 09:00 - Constitutional Appears: Chronically Ill - Head Exam Head Exam: NORMAL INSPECTION - Respiratory Exam Respiratory Exam: Decreased Breath Sounds - Cardiovascular Exam Cardiovascular Exam: +S1, +S2 - GI/Abdominal Exam GI & Abdominal Exam: Soft. absent: Tenderness Assessment and Plan - Assessment and Plan (Free Text) Plan: Assessment sepsis due to pneumocystis pneumonia HIV/AIDS with last CD4 count <20, non-compliant with her meds COPD chronic back pain history of IVDA hepatitis C infection Plan continue Clindamycin and Primaquine (day 8) to complete 14-21 days beta glucan is elevated, serum Crypt Ag is negative, urine Legionella Ag and CMV PCR are negative Will continue to monitor clinically patient will need to follow up with HIV provider as outpatient
--- NOTE | 2018-03-18 16:19 | CP.PCM.PN ---
Subjective - Date & Time of Evaluation Date of Evaluation: 03/18/18 Time of Evaluation: 08:35 - Subjective Subjective: Hematology/Oncology Progress note for Dr. Sullivan Patient was seen and examined at bedside. No acute complaints at this time. Patient has a mild dry cough. She is tolerating oral intake and is moving bowels and bladder regularly. Patient denied fever, chills, shortness of breath , lightheadedness, hallucinations, anxiety, depression, chest pains, abdominal pains, nausea, vomiting, dysuria, constipation or diarrhea. Objective - Vital Signs/Intake and Output Vital Signs (last 24 hours): Temp Pulse Resp BP Pulse Ox 98.1 F 107 H 20 107/75 95 03/18/18 14:00 03/18/18 14:00 03/18/18 14:00 03/18/18 14:00 03/18/18 14:00 Intake and Output: 03/18/18 03/18/18 06:59 18:59 Intake Total 1740 Balance 1740 - Medications Medications: Current Medications Albuterol/Ipratropium (Duoneb 3 Mg/0.5 Mg (3 Ml) Ud) 3 ml IH Q2H PRN PRN Reason: Shortness of Breath Albuterol/Ipratropium (Duoneb 3 Mg/0.5 Mg (3 Ml) Ud) 3 ml IH [id number] [facility] Last Admin: 03/18/18 15:51 Dose: 3 ml Clonazepam (Klonopin) 0.5 mg PO BID [facility] PRN Reason: Protocol Last Admin: 03/18/18 10:07 Dose: 0.5 mg Clonazepam (Klonopin) 0.5 mg PO HS PRN; Protocol PRN Reason: anxiety/insomnia Docusate Sodium (Colace) 100 mg PO DAILY [facility] Last Admin: 03/18/18 10:04 Dose: 100 mg Enoxaparin Sodium (Lovenox) 40 mg SC DAILY [facility] PRN Reason: Protocol Last Admin: 03/18/18 10:05 Dose: 40 mg Sodium Chloride (Sodium Chloride 0.9%) 1,000 mls @ 70 mls/hr IV .[id number] [facility] Last Admin: 03/17/18 10:02 Dose: 70 mls/hr Clindamycin Phosphate 900 mg/ (Sodium Chloride) 106 mls @ 106 mls/hr IVPB Q8 [facility] PRN Reason: Protocol Stop: 04/07/18 22:31 Last Admin: 03/18/18 14:15 Dose: 106 mls/hr Ibuprofen (Motrin Tab) 800 mg PO TID PRN PRN Reason: Pain, moderate (4-7) Last Admin: 03/15/18 20:22 Dose: 800 mg Methadone HCl (Methadone) 140 mg PO DAILY [facility] Last Admin: 03/18/18 10:05 Dose: 140 mg Methylprednisolone (Solu-Medrol) 20 mg IV Q12H [facility] Mirtazapine (Remeron) 30 mg PO HS [facility] Last Admin: 03/17/18 21:28 Dose: 30 mg Pantoprazole Sodium (Protonix Ec Tab) 40 mg PO 0600 [facility] Last Admin: 03/18/18 05:51 Dose: 40 mg Primaquine Phosphate (Primaquine) 26.3 mg PO DAILY [facility] PRN Reason: Protocol Stop: 03/22/18 10:01 Last Admin: 03/18/18 10:05 Dose: 26.3 mg - Labs Labs: 03/18/18 07:15 03/18/18 07:15 PT 10.3 SECONDS (9.4-12.5) 03/16/18 09:00 INR 0.90 (0.93-1.08) L 03/16/18 09:00 APTT 30.2 Seconds (25.1-36.5) 03/16/18 09:00 - Constitutional Appears: Chronically Ill - Head Exam Head Exam: ATRAUMATIC, NORMAL INSPECTION, NORMOCEPHALIC - Eye Exam Eye Exam: EOMI, Normal appearance, PERRL Pupil Exam: NORMAL ACCOMODATION, PERRL - ENT Exam ENT Exam: Mucous Membranes Dry - Respiratory Exam Respiratory Exam: Clear to Ausculation Bilateral, NORMAL BREATHING PATTERN - Cardiovascular Exam Cardiovascular Exam: REGULAR RHYTHM, +S1, +S2. absent: Murmur - GI/Abdominal Exam GI & Abdominal Exam: Soft, Normal Bowel Sounds. absent: Tenderness - Neurological Exam Neurological Exam: Alert, Awake, CN II-XII Intact, Normal Gait, Oriented x3 - Psychiatric Exam Psychiatric exam: Normal Affect, Normal Mood - Skin Skin Exam: Dry, Intact, Normal Color, Warm Assessment and Plan - Assessment and Plan (Free Text) Assessment: 37 F with a PMHx of polysubstance abuse, HIV/AIDS, hx of pneumocystis carinii, COPD, Hepatitis C known treated, tobacco abuse, methadone dependent presented [place] [facility] [place] for intermittent fever, chills, and productive cough. Patient was evaluated and admitted for pneumonia. CT scan of chest showed infiltrates, ID and Pulmonary on consult. HIV/AIDS with last CD4 count <20, non-compliant with her meds. Patient found to be anemic with a Hgb of 9.1 from a previous 12 today 8.8. Patient also has a platelet count of 91 from a previous 100 on manual count now 137. Her Hgb and plts have remained steady with a hgb of 8.9 and plt of 96. B12 and folic acid wnl. Iron wnl, TIBC low,and transferrin low likely caused by malnutrition, inflammation, liver disease as noted by increased LFTs, which have been trending down. Continue Clindamycin and Primaquine (day 8) to complete 14-21 days beta glucan is elevated, serum Crypt Ag is negative, urine Legionella Ag and CMV PCR are negative Will continue to monitor clinically
--- NOTE | 2018-03-18 20:15 | CON ---
DATE: 03/18/2018 HISTORY OF PRESENT ILLNESS: The patient is a 37-year-old female with opioid addiction as well as acute anxiety, whom the Psychiatry is following up on the medical floor due to symptoms of anxiety. I am familiar with this patient from my initial consultation with her last weekend and my colleague, Dr. Cho has been following up with her over the week. During this time, the patient's anxiety has improved with administration of Klonopin as well as decrease of methadone from 150 to 140 mg daily. Paxil was switched to Remeron to help with appetite and sleep. I met with her at bedside and she continues to be oriented to month, year, location, and circumstances. Her thought process is coherent. She is not delusional. She is not hallucinating. She is calm and she does appear also to be less anxious and more nourished appearing than she did when I met with her last weekend. The patient reports that subjectively, she feels her anxiety is improving. She continues to deny any depression and/or suicidal thoughts, and reports that she is tolerating Klonopin and Remeron well. She still has residual anxiety; however, this appears to be lot more tolerable at this time. She denies having any other psychiatric concerns and has been in fair control and fairly predictable in the unit. Vital signs and labs were reviewed. MEDICATIONS: Psychiatric medications include Remeron 30 mg at bedtime, Klonopin 0.5 mg b.i.d. and at bedtime p.r.n. as well as the patient was decreased the methadone from 150 mg to 140 mg during the week. IMPRESSION: Likely, generalized anxiety disorder as well as cognitive disorder. Rule out mood disorder and anxiety disorder due to general medical condition. PLAN: We will continue with current treatment with Remeron and Klonopin. The patient reports improvement with these two medications, although still complains of some mild restless sleep and residual anxiety. She does feel more functional and in control. Of note, the patient is well aware of Klonopin interaction with opioids and that it can lower respiratory depression and decongest if taken in large quantities with methadone or other opioids or depressants such as alcohol. Psychiatry will sign off at this time. Please reconsult as necessary if there are any acute changes in the patient's symptoms. Leslee Gutierrez MD [facility] # [id number]
--- NOTE | 2018-03-18 20:25 | PN ---
DATE: 03/18/2018 PULMONARY PROGRESS NOTE REFERRING PHYSICIAN: Macario Carter MD. SUBJECTIVE: She is sitting on side of the bed. Feels much better. Ambulate to ambulate off oxygen. Still has some cough and shortness of breath. No nausea. No vomiting, diarrhea, leg pain, leg swelling. OBJECTIVE: GENERAL: In no acute distress. VITAL SIGNS: Temp is 98, heart rate is 94, respiratory rate is 18, blood pressure 119/78, pulse ox 93% on nasal cannula. HEENT: Moist mucous membrane. No ulcer or thrush noted. NECK: Supple. No JVD. LUNGS: Have a few scattered rhonchi and wheezing. HEART: S1 and S2. ABDOMEN: Soft, nontender. No organomegaly. EXTREMITIES: No edema. NEUROLOGICAL: Awake, alert. Follows simple command. LABORATORY DATA: Shows hemoglobin 8.8, hematocrit 28.2, WBC 3.5, platelet is 137. Sodium 144, potassium 4.8, chloride 108, bicarbonate 31, BUN 27, creatinine 0.8, glucose is 80, calcium is 8.8, AST 75, ALT 118, alk phos is 288, albumin is 2.6. Microbiology: Blood culture had been negative. MEDICATIONS: She is on clindamycin 900 mg every 8 hours; Colace 100 mg daily; DuoNeb every 2 hours p.r.n. every 4 hours edhop-sip-glarm; clonazepam 0.5 mg at bedtime p.r.n. and also clonazepam 0.5 mg twice a day; Lovenox 40 mg subcu daily; methadone 140 mg daily; Motrin 800 mg three times a day; primaquine 26.3 mg daily; Protonix 40 mg daily; Remeron 30 mg at bedtime; IV fluid normal saline 70 mL per hour; Solu-Medrol 20 mg every 12 hours. IMPRESSION AND PLAN: Chronic obstructive lung disease with bronchiolitis, substance abuse, acquired immune deficiency syndrome, methadone dependent, anxiety disorder. Slowly improving and steroid had been decreased slowly. Continue antibiotics as per Infectious Diseases. P.r.n. supplement oxygen if pulse ox less than 90%. Gastric prophylaxis. Thank you and we will follow with you. Cara Barajas MD
[2018-03-19] MEDS: MethylPREDNISolone 40 mg Vial IV SCH ×3 (00:18→23:33)
[2018-03-19] MEDS: Albuterol-Ipratrop 3 mg / 0.5 (3 ml) UD IH SCH ×7 (00:40→23:50)
[2018-03-19] MEDS: Pantoprazole 40 mg EC Tab PO SCH (05:47)
[2018-03-19] MEDS: Sodium Chloride 0.9% 1,000 ML IV SCH ×2 (05:48→15:38)
[2018-03-19] MEDS: Enoxaparin 40 mg Syringe SC SCH (10:57)
[2018-03-19] MEDS: Primaquine 26.3 mg Tab PO SCH (10:59)
--- NOTE | 2018-03-19 15:09 | PN ---
DATE: 03/17/2018 SUBJECTIVE: The patient is comfortable, lying in bed, no distress. Cough is less. Short of breath is less and afebrile. PHYSICAL EXAMINATION: VITAL SIGNS: Temperature 98, heart rate 79, blood pressure 110/70, respirations 20, sat 100% on room air. HEAD AND NECK: Normal. No JVD. No thyromegaly. CHEST: Clear. There is few rhonchi bilaterally in the bases. CARDIAC: First sound and second sound normal. ABDOMEN: Soft, nontender. EXTREMITIES: No edema. NEUROLOGIC: Normal. IMPRESSION AND PLAN: 1. Acute nosocomial pneumonia. Continue clindamycin and doxycycline. She is off atovaquone and currently on primaquine 26.3 mg p.o. daily. 2. Chronic anxiety and poor p.o. intake, depression, has been on Remeron. Continue Remeron and continue Klonopin for underlying chronic associated anxiety. 3. Drug use disorders. The patient has history of heroin use and currently on methadone, 140 mg has been decreased by 10 mg due to her abnormal liver enzymes and concomitant use of benzodiazepines. Risk explained to the patient. 4. Chronic obstructive pulmonary disease and pneumonia. Continue steroids. We will decrease IV Solu-Medrol to 20 mg. Hopefully, we will switch her to p.o. prednisone later. At this time, continue IV steroids and continue inhaled bronchodilators. 5. Human immunodeficiency virus/acquired immunodeficiency syndrome status was advanced. The patient has poor compliance with her human immunodeficiency virus medications and other regimen of human immunodeficiency virus management. The patient encouraged to follow up with ID consultants. 6. The patient does have pulmonary hypertension. 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 She will need to follow up with her Cardiology in the [facility]. I did explain to the patient that and the importance of getting her compliance was the treatment plan including human immunodeficiency virus medications and following up with Cardiology. We will discuss more with the [employer]pper[employer] Aide on the case. Macario Carter MD
--- NOTE | 2018-03-19 20:50 | PN ---
DATE: 03/19/2018 SUBJECTIVE: The patient is seen earlier this morning. No fevers and no chills. She is doing better. PHYSICAL EXAMINATION: VITAL SIGNS: Temperature is 98, blood pressure is 103/70, respiratory rate of 18. HEENT: Unremarkable. NECK: Supple. LUNGS: Have decreased breath sounds. HEART: Normal S1, S2. ABDOMEN: Soft, nontender. LABORATORY EXAMINATION: Reveals a white count of 3.5, hemoglobin of 8 and platelets are 137. Chemistries reveals a BUN of 27, creatinine of 0.8. LFTs are remarkably and they are elevated, however, there is somewhat improvement. Procalcitonin 0.94. Blood cultures are no growth. Dr. Carter's note is reviewed. Dr. Barajas's note is reviewed. ASSESSMENT AND PLAN: A 37-year-old female seen earlier this morning in 578, bed 2 with sepsis with Pneumocystis pneumonia and end-stage acquired immune deficiency syndrome with low T-cells of less than 20 in a patient with a history of intravenous drug abuse and chronic obstructive lung disease and chronic back pain and hepatitis C infection. Currently on clindamycin and primaquine, day #9, will need 14-21 days with beta-Glucan is elevated. Serum cryptococcal antigen is negative. Urine Legionella is negative. Cytomegalovirus polymerase chain reaction is negative. Long-term prognosis is quite poor for this very unfortunate patient who is noncompliant with her human immunodeficiency virus regimen. We will follow closely with you. Review of orders reveals the clindamycin and primaquine are interactive. The patient is also on Solu-Medrol. Cheikh Chou MD
--- NOTE | 2018-03-19 23:32 | PN ---
DATE: 03/19/2018 PULMONARY PROGRESS NOTE REFERRING PHYSICIAN: Macario Carter MD. SUBJECTIVE: She is sitting on side of the bed. Night was unremarkable. Slowly improving. Shortness of breath and cough is improving. No nausea. No vomiting, diarrhea, leg pain, leg swelling. OBJECTIVE: GENERAL: In no acute distress. VITAL SIGNS: Temp is 98, heart rate is 118, respiratory rate is 20, blood pressure 103/75, pulse ox 94% on nasal cannula. HEENT: Moist mucous membrane. No ulcer or thrush. NECK: Supple. No JVD. LUNGS: Have a few scattered rhonchi, prolonged expiratory phase. Wheezing is much better. HEART: S1 and S2. ABDOMEN: Soft, nontender. No organomegaly. EXTREMITIES: No edema. NEUROLOGICAL: Awake, alert. Follows simple command. MEDICATIONS: She is on clindamycin 900 mg every 8 hours, Colace 100 mg daily, DuoNeb every 2 hours p.r.n. and every 4 hours [id number], Klonopin 0.5 mg at bedtime p.r.n. and also Klonopin 0.5 mg twice a day, Lovenox 40 mg daily, methadone 140 mg daily, Motrin 800 mg three times a day, primaquine 26.3 mg daily, Protonix 40 mg daily, Remeron 30 mg at bedtime, IV fluid normal saline 70 mL per hour, Solu-Medrol 20 mg every 12 hours. LABORATORY DATA: Reviewed. No new lab is available since yesterday. Microbiology, blood culture has been negative. IMPRESSION AND PLAN: Chronic obstructive lung disease, bronchiolitis, substance abuse, acquired immune deficiency syndrome, methadone dependent, anxiety disorder. Pulmonary point of view, she is doing much better. Continue IV and inhaled bronchodilators. May discontinue Solu-Medrol if discharged and go on a taper dose of steroids, inhaled bronchodilator. Antibiotics as per Infectious Disease. The patient is urged to stop smoking. Need Infectious Disease's followup as an outpatient for possible human immunodeficiency virus treatment. Thank you and we will follow with you. Cara Barajas MD
--- NOTE | 2018-03-20 02:02 | PN ---
DATE: 03/19/2018 SUBJECTIVE: Patient is feeling better. No complaints of any abdominal pain. Tolerating the diet. PHYSICAL EXAMINATION: VITAL SIGNS: Afebrile, temperature is 98.7, pulse 118, blood pressure is 103/75. HEENT: Atraumatic, anicteric. NECK: Supple. HEART: S1 and S2 heard. LUNGS: Bilateral air entry present. ABDOMEN: Soft. There is no mass palpable. No tenderness. LABORATORY DATA: No labs. IMPRESSION: This 37-year-old patient with end-stage acquired immune deficiency syndrome, chronic obstructive pulmonary disease, chronic back pain, history of hepatitis C treated, admitted with severe sepsis, pneumocystis pneumonia, was found to have an elevated liver function test. The liver function tests now show a downward trend. AST has significantly improved. ALT was 118 yesterday, AST 75, and alkaline phosphatase 288. Patient had an ultrasound scan of the abdomen, showed no gallstones. Common bile duct normal. Recommendation is followup of the liver function tests. Patient is also anemic. Hemoglobin is showing slow downward trend, but the patient was on IV fluids. No obvious bleeding per rectum or melena noticed. Patient has been on ibuprofen on a p.r.n. basis along with Lovenox. We will discontinue the ibuprofen. Follow up of the hemoglobin and hematocrit. Thank you very much for allowing us to participate in the care of the patient. We will follow up with you. Anne Centeno MD KATHERINE
[2018-03-20] MEDS: Albuterol-Ipratrop 3 mg / 0.5 (3 ml) UD IH SCH ×5 (03:25→20:55)
[2018-03-20] MEDS: Pantoprazole 40 mg EC Tab PO SCH (06:17)
[2018-03-20 08:01] LABS: HEMOGLOBIN 8.8 g/dL (12.0-16.0); MEAN CORPUSCULAR HGB CONC 31.8 g/dl (31.0-37.0); MEAN PLATELET VOLUME 9.6 fl (7.0-11.0); RBC 3.26 10^6/uL (3.5-6.1); RED CELL DISTRIBUTION WIDTH 17.4 % (11.5-14.5); WHITE BLOOD COUNT 3.5 10^3/ul (4.5-11.0)
[2018-03-20 08:15] LABS: BLOOD UREA NITROGEN 28 mg/dL (7-21); GFR AFRICAN-AMERICAN > 60; GFR NON-AFRICAN AMERICAN > 60
[2018-03-20 08:16] LABS: ALB/GLOB RATIO 0.8 (1.1-1.8); ALBUMIN 2.9 g/dL (3.0-4.8); ALT/SGPT 84 U/L (7-56); AST/SGOT 66 U/L (14-36); CALCIUM 9.2 mg/dL (8.4-10.5)
[2018-03-20] MEDS: Primaquine 26.3 mg Tab PO SCH (10:16)
[2018-03-20] MEDS: Enoxaparin 40 mg Syringe SC SCH (10:17)
--- NOTE | 2018-03-20 12:44 | PN ---
DATE: 03/20/2018 PHYSICAL EXAMINATION: HEENT: Unremarkable. NECK: Supple. LUNGS: Have decreased breath sounds. HEART: Normal S1 and S2. ABDOMEN: Soft, nontender. LABORATORY DATA: Laboratory examination reveals the patient to have white count of 3.5, hemoglobin of 8, platelets of 150. Chemistries reveals a BUN of 28, creatinine of 0.8. T cells are noted. The patient's oxygen saturation is improving. ASSESSMENT AND PLAN: A 37-year-old female with sepsis with Pneumocystis pneumonia with end-stage acquired immune deficiency syndrome with T cells of less than 20 in a patient with intravenous drug abuser, chronic obstructive lung disease, chronic back pain and hepatitis C. Currently, on clindamycin and primaquine, day #10 with an elevated Beta-Glucans level that is supportive of Pneumocystis diagnosis. Cryptococcal antigen is negative. Legionella is negative. Cytomegalovirus polymerase chain reaction is negative. Long-term prognosis is quite poor. The patient is still on the prednisone and if the patient's symptoms improve and oxygenation improve, we will switch to p.o. anti-Pneumocystis carinii pneumonia therapy next 24 hours. Cheikh Chou MD
[2018-03-20] MEDS ORDERED: Sodium Chloride 0.9% 1,000 ML IV SCH (13:17)
--- NOTE | 2018-03-20 16:34 | PN ---
DATE: 03/20/2018 SUBJECTIVE: This patient is doing well. No complaints of any abdominal pain. No diarrhea. Tolerating the diet. PHYSICAL EXAMINATION: VITAL SIGNS: Temperature is 97.6, pulse 72, blood pressure is 102/76. HEENT: Atraumatic, anicteric. NECK: Supple. HEART: S1 and S2 heard. LUNGS: Bilateral air entry present. ABDOMEN: Soft. There is no mass palpable. No tenderness. EXTREMITIES: No cyanosis. No clubbing. LABORATORY DATA: Hemoglobin is 8.8, hematocrit 27.7, WBC 3.5, platelets 150. BUN 28, creatinine 0.8. IMPRESSION: 1. This 37-year-old patient with sepsis, Pneumocystis carinii pneumonia, advanced acquired immune deficiency syndrome. The patient had an elevated liver function tests, probably drug induced showing downward trend. The patient did have anemia. The most likely cause for these liver function tests is probably secondary to the drug induced, but clinically improving. 2. Anemia, drop in blood count. The patient was on Motrin and the patient is on steroid and Lovenox. The Motrin has been discontinued. I had a lengthy discussion with the patient the importance of avoiding nonsteroidal antiinflammatory drugs in her case. We will continue the proton pump inhibitor and close followup of the hemoglobin, hematocrit and also liver function tests. Thank you very much for allowing us to participate in the care of the patient. Anne Centeno MD
--- NOTE | 2018-03-20 19:16 | PN ---
DATE: 03/20/2018 This is [facility] visit on the medical floor. For Dr. Sullivan. SUBJECTIVE: The patient is a 37-year-old female, admitted for chills and cough with Pneumocystis pneumonia diagnosed with the patient now being treated as per Dr. Barajas and Dr. Chou's recommendations, Pulmonary and ID consults respectively with good effect with the patient reporting that she is to be discharged home as per Dr. Carter. The patient denies any complaints at this point, reporting her cough is significantly improved. With this, the patient otherwise appeared in no acute distress. Seen ambulating in the room without complaint this visit. She is known to have pancytopenic indices for which Dr. Sullivan was requested to evaluate with this being monitored. She reports her appetite is good, taking p.o. well. OBJECTIVE PHYSICAL EXAMINATION: VITAL SIGNS: Temperature 98.5, pulse 97, respirations 20, blood pressure 104/70, pulse ox 98%. HEENT: Unremarkable. Tongue is moist. NECK: Supple. LUNGS: Rare rhonchi. HEART: Regular rate. ABDOMEN: Soft, nontender. EXTREMITIES: No edema. SKIN: Warm and dry. NEUROLOGIC: Awake and alert. LABORATORY DATA: The patient's labs were done to include a white blood cell count of 3.5, hemoglobin of 8.8, hematocrit of 27.7, platelet count 150,000, improved from 96,000 three days prior and 82,000 six days prior. Her chem metabolic panel shows an AST of 66, down from 213 four days ago; ALT of 84, down from 181 four days ago with an alk phos also improved to 228, down from 450 four days ago. Her BUN, however, is 28 with a normal creatinine of 0.8. Vitamin B12 level is 809. Folic acid was 12.2 with an iron saturation of 23%. ASSESSMENT: The assessment for this patient is that a pancytopenia, it is related to her known diagnosis of human immunodeficiency virus positivity; acute pneumonia; anxiety; depression; substance abuse, on methadone; chronic obstructive pulmonary disease; pulmonary hypertension; pancytopenia secondary to above. PLAN: The plan for this patient after conversation with Dr. Sullivan is to continue present medical regimen as per consultants' recommendations with cutting back her IV fluids, eventually discontinuing them in anticipation of her discharge to monitor her off IV fluids prior to discharge as per Dr. Carter and other consultants as above. This is a complex patient with a comprehensive medically necessary and appropriate visit carried out in excess of 20 minutes [id number] with this patient with her chart reviewed, labs reviewed and recommendations as above. Prognosis for this patient is guarded. Yoshi Chatterjee MD
[2018-03-20] MEDS ORDERED: Morphine 2 mg/2 mL syringe IVP ONE (20:56)
[2018-03-21] MEDS: Albuterol-Ipratrop 3 mg / 0.5 (3 ml) UD IH SCH ×4 (01:00→10:50)
[2018-03-21 01:02] VITALS: RESP 18; O2SAT 95
--- NOTE | 2018-03-21 02:22 | PN ---
DATE: 03/20/2018 PULMONARY PROGRESS NOTE REFERRING PHYSICIAN: Macario Carter MD. SUBJECTIVE: The patient is sitting on side of the bed. Night was unremarkable. Feels better. Decreased cough. Decreased shortness of breath. No nausea. No vomiting. No diarrhea. No leg pain or leg swelling. OBJECTIVE: GENERAL: In no acute distress. VITAL SIGNS: Temp is 98, heart rate is 97, respiratory is 20, blood pressure 104/70, pulse ox 98% on nasal cannula. HEENT: Moist mucous membrane. No ulcer or thrush. NECK: Supple. No JVD. LUNGS: Has fair airflow with few rhonchi. HEART: S1 and S2. ABDOMEN: Soft, nontender. No organomegaly. EXTREMITIES: There is no edema. NEUROLOGICAL: Awake and alert. Follows simple command. MEDICATIONS: She is on clindamycin 900 mg every 8 hours, Colace 100 mg daily, DuoNeb every 2 hours p.r.n. and every 4 hours [id number], clonazepam 0.5 mg at bedtime and 0.5 mg twice a day [id number], Lovenox 40 mg daily, methadone 140 mg daily, prednisone 20 mg daily, primaquine 26.3 mg daily, Protonix 40 mg daily, mirtazapine 30 mg at bedtime, IV fluid normal saline 40 mL per hour. LABORATORY DATA: Shows hemoglobin 8.8, hematocrit 27.7, WBC of 3.5, platelet is 150. Sodium 142, potassium 4.7, chloride 106, bicarbonate 29, BUN 28, creatinine 0.8, glucose is 104, calcium is 9.2, AST 466, ALT 84, alkaline phosphatase is 228, albumin is 2.9. Microbiology, blood culture is negative. IMPRESSION AND PLAN: Chronic obstructive lung disease, bronchiolitis, substance abuse, acquired immune deficiency syndrome, methadone dependent. Pulmonary point of view, doing okay. Continue tapered dose of steroids, inhaled bronchodilators. Gastric prophylaxis. Deep venous thrombosis prophylaxis. Fall precaution. Thank you and we will follow with you. Cara Barajas MD
[2018-03-21] MEDS: Pantoprazole 40 mg EC Tab PO SCH (05:25)
[2018-03-21 08:32] VITALS: BP 103/70; PULSE 90; TEMP 98.6
[2018-03-21] MEDS: Enoxaparin 40 mg Syringe SC SCH (09:09)
[2018-03-21] MEDS: Primaquine 26.3 mg Tab PO SCH (09:10)
[2018-03-21] MEDS ORDERED: Atovaquone 750 mg/5 ml Susp UD PO SCH (10:00)
--- NOTE | 2018-03-21 10:53 | PN ---
DATE: 03/21/2018 SUBJECTIVE: The patient is in bed, in no acute distress, nontoxic. She is doing much better. PHYSICAL EXAMINATION: VITAL SIGNS: Temperature is 98, blood pressure is 103/70, respiratory rate of 18, heart rate of 90. The patient is oxygenating at 95% on room air. HEENT: Examination of HEENT is unremarkable. NECK: Supple. LUNGS: Have decreased breath sounds. HEART: Normal S1, S2. ABDOMEN: Soft, nontender. LABORATORY DATA: Laboratory examination reveals a white count of 3.5 and the chemistries are noted. BUN of 28, creatinine of 0.8. Procalcitonin is mildly elevated at 0.94. Immunology is noted and serology is reviewed. The patient's CMV is negative and PCR is negative and the patient's Cryptococcus is negative. Dr. Cara Barajas's progress note is reviewed. The patient is currently on clindamycin and primaquine. ASSESSMENT AND PLAN: A 37-year-old female with sepsis with Pneumocystis pneumonia and elevated beta 1-3 glucan, now much improved shortness of breath and the patient with end-stage acquired immune deficiency syndrome and chronic obstructive lung disease, chronic back pain, hepatitis C. We will discontinue the primaquine and clindamycin and may taper the prednisone when complete with Mepron at 750 mg p.o. b.i.d. x21 days and taper and discontinue the steroids on appropriately and she should be followed up as outpatient with her human immunodeficiency virus doctor and human immunodeficiency virus medication adherence education. Cheikh Chou MD
--- NOTE | 2018-03-22 09:37 | PN ---
DATE: 03/18/2018 SUBJECTIVE: The patient is comfortable. . She is concerning about the . PHYSICAL EXAMINATION: VITAL SIGNS: Temperature is 98, heart rate is , blood pressure , respirations 20, saturation . HEAD AND NECK: No JVD. No thyromegaly. CHEST: Clear bilateral basal rhonchi . CARDIAC: First sound and second sound normal. ABDOMEN: Soft and nontender. EXTREMITIES: No edema. . LABORATORY STUDIES: Show white count 3.5, hemoglobin , hematocrit , platelets 137. Sodium 144, potassium 4.8, chloride 108, bicarbonate 31. BUN 27, creatinine 0.8. much better than before. IMPRESSION AND PLAN: 1. continue plus Klonopin and . 2. Patient does have acute chronic obstructive pulmonary disease exacerbation, acute pneumonia. Continue current therapy. She was given . We are going to switch the patient to currently IV Solu-Medrol b.i.d. 2.01 Continue clindamycin, doxycycline, and Primaquine. 3. Human immunodeficiency virus, cardiomyopathy, pulmonary hypertension present Plavix treatment. . 4. Depression and anxiety. Seen by psychiatrist. current medications. She is taking antidepressant chest pain. She is 0.5 mg b.i.d., 0.5 at bedtime. . Continue current therapy. Continue gastrointestinal and deep venous thrombosis prophylaxis. Macario Carter MD
--- NOTE | 2018-03-22 15:25 | PN ---
DATE: 03/19/2018 SUBJECTIVE: The patient is comfortable, no complaint, concerning about discharging on methadone. She has no chest pain. Her breathing is better. She is more comfortable and she is doing well with current medications. Still on IV antibiotics. No other complaint. PHYSICAL EXAMINATION: VITAL SIGNS: Temperature 98.6, heart rate 102, blood pressure 112/77, respirations 20, and saturation 97% on room air. HEAD AND NECK: Normal. No JVD. No thyromegaly. CHEST: Clear. Good air entry. CARDIAC: First sound and second sound normal. ABDOMEN: Soft, nontender. EXTREMITIES: No edema. NEUROLOGICAL: Nonfocal, but generally weak. IMPRESSION AND PLAN: 1. Acute nosocomial pneumonia. Continue current therapy. She is getting multiple antibiotics including clindamycin, , doxycycline and she was getting also nebulizer treatment. Continue current therapy. We will follow up with the Infectious Disease. Once we discontinue the antibiotic, she will be going home. 2. Acute chronic obstructive pulmonary disease exacerbation, continue steroids, seems better. 3. Human immunodeficiency virus, advanced, noncompliance. Advised to follow up with an ID doctor as outpatient. 4. Anemia, chronic. The patient was advised to follow up with GI and Hematology. She does have pancytopenia. She is known to have a history of chronic liver disease, human immunodeficiency virus. She needs to be followed as outpatient. 5. Drug abuse on methadone. Continue methadone 140 mg daily. 6. Depression and anxiety. She is getting Remeron, which increases her appetite and the patient is also getting clonazepam 0.5 mg t.i.d. and we will continue that. 7. Pancytopenia and anemia. Follow up with Hematology and GI consult. The patient is currently taking Protonix, Pepcid. The patient was advised ibuprofen only for severe pain and Colace 100 b.i.d. She should follow up with ID doctor and another consultants. 8. The patient has pulmonary hypertension. She does have low ejection fractions possibly due to her human immunodeficiency virus. Advised to follow up in a center for human immunodeficiency virus related cardiomyopathy and pulmonary hypertension. She understood and she is planning to do that. We will continue current therapy. Macario Carter MD
== END 2018-03-21 13:07 | disposition home or self-care (01) | DRG 706 ==
LOC: ED 17:06 → ERH 20:46 → 5RSO 22:56
PROVIDERS: ADMIT Internal Medicine; ATTEND Internal Medicine
PROC: 3E0F7GC Introduction of Other Therapeutic Substance into Respiratory Tract, Via Natural or Artificial Opening (ICD-10-PCS; principal; 2018-03-12)
DX: B20 Human immunodeficiency virus [HIV] disease (principal); B59 Pneumocystosis; I42.9 Cardiomyopathy, unspecified; A41.9 Sepsis, unspecified organism; R65.20 Severe sepsis without septic shock; R64 Cachexia; B18.2 Chronic viral hepatitis C; F11.20 Opioid dependence, uncomplicated; F06.30 Mood disorder due to known physiological condition, unspecified; D61.818 Other pancytopenia; I08.1 Rheumatic disorders of both mitral and tricuspid valves; J44.1 Chronic obstructive pulmonary disease with (acute) exacerbation; E46 Unspecified protein-calorie malnutrition; G89.29 Other chronic pain; M54.9 Dorsalgia, unspecified; F41.1 Generalized anxiety disorder; I27.20 Pulmonary hypertension, unspecified; G47.00 Insomnia, unspecified; G43.909 Migraine, unspecified, not intractable, without status migrainosus; M41.9 Scoliosis, unspecified; Z68.1 Body mass index [BMI] 19.9 or less, adult; F17.210 Nicotine dependence, cigarettes, uncomplicated; Z91.14 Patient's other noncompliance with medication regimen; Z91.19 Patient's noncompliance with other medical treatment and regimen

== ENCOUNTER 2018-04-13 16:31 | Inpatient (IN) | payer OTHER ==
[2018-04-13 16:31] VITALS: BMI 17.2
[2018-04-13] MEDS ORDERED: Magnesium 2 gm/50 ml NS 2 GM/50 ML BAG IVPB ONE ×2 (16:51→19:36)
[2018-04-13] MEDS ORDERED: Albuterol-Ipratrop 3 mg / 0.5 (3 ml) UD IH STA (16:51)
[2018-04-13] MEDS ORDERED: Albuterol 0.083% Inhal Sol (2.5 mg/3 mL) UD INH STA (16:51)
--- NOTE | 2018-04-13 16:58 | ED PDOC ---
Arrival/HPI - General Chief Complaint: Shortness Of Breath Time Seen by Provider: 04/13/18 16:42 Historian: Patient - History of Present Illness Narrative History of Present Illness (Text): 04/13/18 16:51 Patient is a 37 year old female whose past medical history includes pneumonia, COPD, and HIV, who presents to the Emergency department complaining of sharp persistent chest pain for the past 2 days ago. Patient reports that she was discharged 2 days ago from the hospital and was previously admitted for pneumonia. Patient mentions feeling febrile last night. She also mention being prescribed Bictegravir, Emtricitabine, Tenofovir by but hasn't filled the medication due to authorization issues. Patient hasn't been on any antiviral medications for over a year. Of note patient uses electronic cigarettes and formerly smoked cigarettes, which she discontinued 3 months ago. She admits to experiencing bilateral lower extremity edema. Time/Duration: < week (2 days) Symptom Course: Unchanged Quality: Stabbing Context: Home Past Medical History - Provider Review Nursing Documentation Reviewed: Yes - Infectious Disease Hx of Infectious Diseases: None - Tetanus Immunization Tetanus Immunization: Unknown - Reproductive Menopause: No - Cardiac Hx Cardiac Disorders: Yes - Pulmonary Hx Respiratory Disorders: Yes (has nebulizer machine at home) Hx Asthma: Yes Hx Bronchitis: Yes Hx Chronic Obstructive Pulmonary Disease (COPD): Yes Hx Pneumonia: Yes - Neurological Hx Migraine: Yes - HEENT Hx Macular Degeneration: Yes - Renal Hx Renal Disorder: No - Endocrine/Metabolic Hx Endocrine Disorders: No - Hematological/Oncological Hx Blood Disorders: Yes (blood transfusion) Hx AIDS: Yes Hx Hepatitis C: Yes (IVDU) - Integumentary Hx Dermatological Disorder: Yes - Musculoskeletal/Rheumatological Hx Musculoskeletal Disorders: Yes Hx Back Pain: Yes Hx Falls: No Other/Comment: SCOLIOSIS - Gastrointestinal Hx Gastrointestinal Disorders: Yes - Genitourinary/Gynecological Hx Genitourinary Disorders: Yes Hx Urinary Tract Infection: Yes - Psychiatric Hx Psychophysiologic Disorder: Yes Hx Anxiety: Yes Hx Substance Use: No Other/Comment: hx ivdu/cocaine stopped 6 yrs ago on methadone program, smokes 1 ppd has not smoked in 4 days - Past Surgical History Past Surgical History: No Previous - Surgical History Other/Comment: right anterior neck SX for abcesses bx neg - Anesthesia Hx Anesthesia: Yes Hx Anesthesia Reactions: No Hx Malignant Hyperthermia: No - Suicidal Assessment Feels Threatened In Home Enviroment: No Family/Social History - Physician Review Nursing Documentation Reviewed: Yes Family/Social History: No Known Family HX Smoking Status: Former Smoker Hx Alcohol Use: No Hx Substance Use: No Substance used: herion, cocaine Hx Substance Use Treatment: No Allergies/Home Meds Allergies/Adverse Reactions: Allergies levofloxacin [From Levaquin] Allergy (Verified 04/13/18 16:44) RASH Penicillins Allergy (Verified 03/11/18 17:15) RASH azithromycin [From Zithromax] Adverse Reaction (Verified 04/13/18 16:44) RASH flexeril Adverse Reaction (Uncoded 03/11/18 17:15) RASH Home Medications: Home Meds Medication Instructions Recorded Confirmed Albuterol HFA [Ventolin HFA 90 2 puff INH Q4H PRN 03/11/18 03/11/18 mcg/actuation (8 g)] Famotidine [Pepcid] 40 mg PO DAILY 03/11/18 03/11/18 Ibuprofen [Motrin Tab] 800 mg PO PRN PRN 03/11/18 03/11/18 Pantoprazole Sodium [Protonix] 40 mg PO DAILY 03/11/18 03/11/18 Review of Systems - Physician Review All systems were reviewed & negative as marked: Yes - Review of Systems Constitutional: Fevers Cardiovascular: Chest Pain, Edema (bilateral lower extremities) Physical Exam Vital Signs Reviewed: Yes Vital Signs Temp Pulse Resp BP Pulse Ox 04/13/18 23:48 106 H 21 81 L 04/13/18 23:24 95 H 21 102/65 90 L 04/13/18 22:18 107 H 18 101/64 90 L 04/13/18 17:44 110 H 18 99/58 L 96 04/13/18 17:00 18 04/13/18 16:46 98.0 F 112 H 18 97/56 L 95 Temperature: Afebrile Blood Pressure: Normal Pulse: Tachycardic Respiratory Rate: Normal Appearance: Positive for: Well-Appearing Mental Status: Positive for: Alert and Oriented X 3 - Systems Exam Head: Present: Atraumatic, Normocephalic Pupils: Present: PERRL Extroacular Muscles: Present: EOMI Conjunctiva: Present: Normal Mouth: Present: Moist Mucous Membranes Neck: Present: Normal Range of Motion Respiratory/Chest: Present: Wheezes (Diffuse musical wheezes), Tender to Palpation (Chest wall tenderness). No: Clear to Auscultation, Respiratory Distress, Accessory Muscle Use Cardiovascular: Present: Regular Rate and Rhythm, Normal S1, S2. No: Murmurs Abdomen: No: Tenderness, Distention, Peritoneal Signs Back: Present: Normal Inspection Upper Extremity: Present: Normal Inspection. No: Cyanosis, Edema Lower Extremity: Present: Swelling (Dorsum left foot swelling) Neurological: Present: GCS=15, CN II-XII Intact, Speech Normal Skin: Present: Warm, Dry, Normal Color. No: Rashes Psychiatric: Present: Alert, Oriented x 3, Normal Insight, Normal Concentration Medical Decision Making ED Course and Treatment: 04/13/18 17:07 Impression: Patient is a 37 year old female who presents to the Emergency department complaining of sharp and persistent chest pain, which started 2 days ago. Differential Diagnosis included but are not limited to: Pneumonia vs. COPD vs. Asthma vs. Pulmonary embolism vs. ACS Plan: --EKG --Cardiac enzymes --D-dimer --Chest X-ray --Duoneb --Albuterol --Magnesium Sulfate --medrol --Blood and Urine Culture --Urinalysis -- Reassess and disposition Prior Visits: Notes and results from previous visits were reviewed. Patient was last seen in the Emergency department on 03/11/18 for chest pain and was admitted for pneumonia, hepatitis C, methadone dependence, and Pneumocystis carinii pneumonia. Progress Notes: 04/13/18 EKG shows sinus tachycardia at 112 BPM with nonspecific T wave abnormality. Interpreted by me. 04/13/18 19:34 Patient has (+) D-dimer. IV fluids and dextrose administered to patient as her blood glucose is low. CTA ordered for patient to rule out pulmonary embolism. 04/13/18 20:36 Chest X-ray is stable for the patient. Interpreted by me. 04/13/18 21:22 Repeat EKG shows sinus tachycardia at 109 BPM with nonspecific T wave abnormality and low voltage QRS. Interpreted by me. 04/13/18 21:56 Called to discuss the case but he is out of town, and the medical intern was subsequently called. client services vice president stated that the patient should be discussed with . 04/13/18 21:[address]Guli Lopes, who is made aware and agrees to admit the patient under her service. 04/13/18 23:06 CT of Chest reviewed by radiologist, shows: IMPRESSION: 1. No pulmonary embolus. 2. Diffuse bronchitis could be infectious or reactive. Scattered groundglass air space opacities and air-trapping. Stable nodules in the superior segment of the left lower lobe. 3. Stable mediastinal lymphadenopathy with evidence of prior granulomas disease. 4. Small pericardial effusion with mild cardiomegaly. - Lab Interpretations Lab Results: 04/13/18 18:09 04/13/18 18:09 Lab Results 04/13/18 18:17: Urine Color Dark yellow, Urine Appearance Sl cloudy, Urine pH 6.0, Ur Specific [place] >= 1.030, Urine Protein >=300 H, Urine Glucose (UA) Negative, Urine Ketones Negative, Urine Blood Small H, Urine Nitrate Negative, Urine Bilirubin Moderate H, Urine Urobilinogen >=8.0, Ur Leukocyte Esterase Negative, Urine RBC 2 - 5, Urine WBC 15 - 20, Ur Epithelial Cells 6 - 8, Urine Bacteria Mod 04/13/18 18:09: Hemoglobin A1c 5.1 04/13/18 18:09: Sodium 136, Chloride 100, Potassium 4.4, Carbon Dioxide 30, Anion Gap 10, BUN 14, Creatinine 0.9, Est GFR ( Amer) > 60, Est GFR (Non- Af Amer) > 60, Random Glucose 54 L, Calcium 7.9 L, Total Bilirubin 0.7, AST 2667 H, ALT 526 H, Alkaline Phosphatase 314 H D, Lactate Dehydrogenase 2622 H, Total Creatine Kinase 118, Troponin I 0.23 H* D, Total Protein 6.4, Albumin 2.4 L, Globulin 3.9, Albumin/Globulin Ratio 0.6 L 04/13/18 18:09: PT 11.0, INR 0.97, D-Dimer, Quantitative 501 H 04/13/18 18:09: WBC 2.6 L* D, RBC 4.49, Hgb 12.1 D, Hct 38.2, MCV 85.1, MCH 26.9, MCHC 31.7, RDW 19.2 H, Plt Count 57 L, MPV 9.2, Gran % 66.3, Lymph % (Auto ) 21.7 L, Sac % (Auto) 11.6 H, Eos % (Auto) 0.0 L, Baso % (Auto) 0.4, Gran # 1.71, Lymph # (Auto) 0.6 L, Sac # (Auto) 0.3, Eos # (Auto) 0.0, Baso # (Auto) 0.01 04/13/18 18:04: pO2 21 L, VBG pH 7.30 L, VBG pCO2 62.0 H, VBG HCO3 30.5 H, VBG Total CO2 32.4 H, VBG O2 Sat (Calc) 39.1 L, VBG Base Excess 2.4 H, VBG Potassium 4.5, Sodium 133.0, Chloride 102.0, Glucose 52 L, Lactate 1.0, FiO2 21.0, Venous Blood Potassium 4.5 04/13/18 17:50: TSH 3rd Generation 1.16 I have reviewed the lab results: Yes - RAD Interpretation Radiology Orders: 04/13/18 16:51 CHEST PORTABLE [RAD] Stat 04/13/18 19:38 ANGIO CHEST PE PROTOCOL [CT] 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 - EKG Interpretation Interpreted by ED Physician: Yes Type: 12 lead EKG - Medication Orders Current Medication Orders: Albuterol/Ipratropium (Duoneb 3 Mg/0.5 Mg (3 Ml) Ud) 3 ml IH [id number] PRN PRN Reason: Shortness of Breath Benzonatate (Tessalon Perles) 100 mg PO TID [facility] Last Admin: 04/14/18 15:18 Dose: 100 mg Doxycycline Hyclate (Doryx) 100 mg PO Q12 EDSON PRN Reason: Protocol Stop: 04/23/18 11:03 Last Admin: 04/14/18 11:41 Dose: 100 mg Enoxaparin Sodium (Lovenox) 40 mg SC DAILY EDSON PRN Reason: Protocol Last Admin: 04/14/18 09:09 Dose: 40 mg Subcutaneous Administrations Document 04/14/18 09:09 KEREN (Rec: 04/14/18 09:09 KEREN [id number]) Injection Site MAR Injection Site Right Abdomen Charges for Administration # of Subcutaneous Administrations 1 Clindamycin Phosphate 900 mg/ (Sodium Chloride) 106 mls @ 106 mls/hr IVPB Q8 EDSON PRN Reason: Protocol Last Admin: 04/14/18 15:18 Dose: 106 mls/hr eMAR Start Stop Document 04/14/18 15:18 RAMOM (Rec: 04/14/18 15:18 RAMOM [id number]) Intravenous Solution Start Date 04/14/18 Start Time 15:20 End Date 04/14/18 End time 16:20 Total Infusion Time 60 Sodium Chloride (Sodium Chloride 0.9%) 1,000 mls @ 100 mls/hr IV .Q10H EDSON Last Admin: 04/14/18 11:37 Dose: 100 mls/hr eMAR Start Stop Document 04/14/18 11:37 RAMOM (Rec: 04/14/18 11:37 RAMOM [id number]) Intravenous Solution Start Date 04/14/18 Start Time 11:45 Norepinephrine Bitartrate 8 mg (/ Sodium Chloride) 500 mls @ 15 mls/hr IV .Q24H PRN; Protocol; 4 MCG/MIN PRN Reason: TITRATE PER MD ORDER Last Admin: 04/14/18 11:52 Dose: 4 mcg/min, 15 mls/hr eMAR Start Stop Document 04/14/18 11:52 RAMOM (Rec: 04/14/18 11:52 RAMOM [id number]) Intravenous Solution Start Date 04/14/18 Start Time 11:50 Titration Intervention Document 04/14/18 11:52 RAMOM (Rec: 04/14/18 11:52 RAMOM [id number]) Titration Intake Waste Amount 0 Container Volume 500 Titration Dosing Titration Dose 4 IV Rate 15 Intake/Decrease Started Methylprednisolone (Solu-Medrol) 30 mg IVP Q12 EDSON Last Admin: 04/14/18 09:10 Dose: 30 mg IVP Administration Document 04/14/18 09:10 RAMOM (Rec: 04/14/18 09:10 RAMOM [id number]) Charges for Administration # of IVP Administrations 1 Mirtazapine (Remeron) 30 mg PO HS EDSON Pantoprazole Sodium (Protonix Ec Tab) 40 mg PO ACB EDSON Primaquine Phosphate (Primaquine) 26.3 mg PO DAILY EDSON PRN Reason: Protocol Last Admin: 04/14/18 09:14 Dose: 26.3 mg Discontinued Medications Albuterol Sulfate (Albuterol 0.083% Inhal Donna (2.5 Mg/3 Ml) Ud) 5 mg INH STAT STA Stop: 04/13/18 16:52 Last Admin: 04/13/18 18:34 Dose: 5 mg Albuterol/Ipratropium (Duoneb 3 Mg/0.5 Mg (3 Ml) Ud) 3 ml IH STAT STA Stop: 04/13/18 16:52 Last Admin: 04/13/18 18:34 Dose: 3 ml Albuterol/Ipratropium (Duoneb 3 Mg/0.5 Mg (3 Ml) Ud) 3 ml IH [id number] EDSON Stop: 04/14/18 07:31 Last Admin: 04/14/18 07:27 Dose: 3 ml Albuterol/Ipratropium (Duoneb 3 Mg/0.5 Mg (3 Ml) Ud) 3 ml IH STAT STA Stop: 04/14/18 00:30 Aspirin (Aspirin Chewable) 324 mg PO STAT STA Stop: 04/13/18 20:54 Last Admin: 04/13/18 22:17 Dose: 324 mg Dextrose (Dextrose 50% Inj) 50 ml IVP STAT STA Stop: 04/13/18 19:37 Last Admin: 04/13/18 20:19 Dose: 50 ml IVP Administration Document 04/13/18 20:19 IT (Rec: 04/13/18 20:19 IT [id number]) Charges for Administration # of IVP Administrations 1 Guaifenesin/Dextromethorphan (Mucinex-Dm 600-30 Mg) 1 tab PO ONCE ONE Stop: 04/13/18 18:16 Last Admin: 04/13/18 18:34 Dose: 1 tab Magnesium 2 gm/50 ml NS (Magnesium Sulfate 2 Gm/50 Ml Ns) 2 gm in 50 mls @ 50 mls/hr IVPB ONCE ONE Stop: 04/13/18 20:35 Last Admin: 04/13/18 22:17 Dose: 50 mls/hr eMAR Start Stop Document 04/13/18 22:17 IT (Rec: 04/13/18 22:17 IT [id number]) Intravenous Solution Start Date 04/13/18 Start Time 22:17 Sodium Chloride (Sodium Chloride 0.9%) 2,000 mls @ 999 mls/hr IV .Q2H1M STA Stop: 04/13/18 21:36 Last Admin: 04/13/18 20:19 Dose: 999 mls/hr eMAR Start Stop Document 04/13/18 20:19 IT (Rec: 04/13/18 20:19 IT [id number]) Intravenous Solution Start Date 04/13/18 Start Time 20:19 Sodium Chloride (Sodium Chloride 0.9%) 1,000 mls @ 999 mls/hr IV .Q1H1M STA Stop: 04/14/18 02:34 Last Admin: 04/14/18 02:39 Dose: 999 mls/hr eMAR Start Stop Document 04/14/18 02:39 MS (Rec: 04/14/18 02:40 MS [id number]) Intravenous Solution Start Date 04/14/18 Start Time 01:30 End Date 04/14/18 End time 02:30 Total Infusion Time 60 Sodium Chloride (Sodium Chloride 0.9%) 1,000 mls @ 125 mls/hr IV .Q8H EDSON Last Admin: 04/14/18 02:40 Dose: 125 mls/hr eMAR Start Stop Document 04/14/18 02:40 MS (Rec: 04/14/18 02:40 MS [id number]) Intravenous Solution Start Date 04/14/18 Start Time 02:40 Dobutamine HCl/Dextrose (Dobutamine/Dextrose 5% 500mg/250ml) 500 mg in 250 mls @ 7.491 mls/hr IV .Q24H PRN; 5 MCG/KG/MIN PRN Reason: Systolic Blood Pressure Last Admin: 04/14/18 03:59 Dose: 7.491 mls/hr eMAR Start Stop Document 04/14/18 03:59 B.P (Rec: 04/14/18 04:00 B.P [id number]) Intravenous Solution Start Date 04/14/18 Start Time 04:00 End Date 04/14/18 End time 11:50 Total Infusion Time 470 Lorazepam (Ativan) 1 mg IVP ONCE ONE PRN Reason: Protocol Stop: 04/13/18 19:39 Last Admin: 04/13/18 21:02 Dose: 1 mg IVP Administration Document 04/13/18 21:02 IT (Rec: 04/13/18 21:02 IT [id number]) Charges for Administration # of IVP Administrations 1 Methylprednisolone (Solu-Medrol) 125 mg IVP STAT STA Stop: 04/13/18 16:52 Last Admin: 04/13/18 18:34 Dose: Methylprednisolone (Solu-Medrol) 125 mg IM STAT STA Stop: 04/13/18 18:12 Last Admin: 04/13/18 18:34 Dose: 125 mg IM Administration Charges Document 04/13/18 18:34 OCS (Rec: 04/13/18 18:34 OCS [id number] Injection Site MAR Injection Site Left Deltoid Charges for Administration # of IM Administrations 1 Metoprolol Tartrate (Lopressor) 5 mg IVP STAT STA Stop: 04/13/18 20:54 Last Admin: 04/13/18 22:17 Dose: Not Given Non-Admin Reason: BP Parameters Not Met Nitroglycerin (Nitro-Bid 2% Oint) 1 ea TOP STAT STA Stop: 04/13/18 20:54 Last Admin: 04/13/18 22:17 Dose: 1 ea Pantoprazole Sodium (Protonix Inj) 40 mg IVP DAILY EDSON Last Admin: 04/14/18 09:09 Dose: 40 mg IVP Administration Document 04/14/18 09:09 RAMOM (Rec: 04/14/18 09:09 RAMOM [id number]) Charges for Administration # of IVP Administrations 1 - Scribe Statement The provider has reviewed the documentation as recorded by the Scribe Chapo Veloz Provider Scribe Attestation: All medical record entries made by the Scribe were at my direction and personally dictated by me. I have reviewed the chart and agree that the record accurately reflects my personal performance of the history, physical exam, medical decision making, and the department course for this patient. I have also personally directed, reviewed, and agree with the discharge instructions and disposition. Disposition/Present on Arrival - Present on Arrival Any Indicators Present on Arrival: No History of DVT/PE: No History of Uncontrolled Diabetes: No Urinary Catheter: No History of Decub. Ulcer: No History Surgical Site Infection Following: None - Disposition Have Diagnosis and Disposition been Completed?: Yes Diagnosis: HIV (human immunodeficiency virus infection), Noncompliance with medication regimen, Chest pain, Elevated troponin Disposition: HOSPITALIZED Disposition Time: 22:00 Patient Plan: Admission, Telemetry Condition: GOOD
[2018-04-13 18:11] LABS: VENOUS BLOOD GAS BASE EXCESS 2.4 mmol/L (0.0-2.0); VENOUS BLOOD GAS PO2 21 mm/Hg (30-55)
[2018-04-13] MEDS ORDERED: guaiFENesin-DM 600-30 mg ER Tab PO ONE (18:15)
[2018-04-13 18:26] LABS: BASO # 0.01 K/mm3 (0.0-2.0); BASO % 0.4 % (0.0-3.0); GRAN # 1.71 (1.4-6.5); GRAN % 66.3 % (50.0-68.0); HEMOGLOBIN 12.1 g/dL (12.0-16.0); LYMPH # 0.6 (1.2-3.4); LYMPH % 21.7 % (22.0-35.0); MEAN CELL VOLUME 85.1 fl (80.0-105.0); MEAN CORPUSCULAR HEMOGLOBIN 26.9 pg (25.0-35.0); MEAN CORPUSCULAR HGB CONC 31.7 g/dl (31.0-37.0); MEAN PLATELET VOLUME 9.2 fl (7.0-11.0); MONO # 0.3 (0.1-0.6); MONO % 11.6 % (1.0-6.0); RBC 4.49 10^6/uL (3.5-6.1); RED CELL DISTRIBUTION WIDTH 19.2 % (11.5-14.5)
[2018-04-13 18:27] LABS: URINE BILIRUBIN MODERATE (NEGATIVE); URINE BLOOD SMALL (NEGATIVE); URINE GLUCOSE (UA) NEGATIVE (NEGATIVE); URINE LEUKOCYTE ESTERASE NEGATIVE Leu/uL (NEGATIVE); URINE PROTEIN >=300 mg/dL (<30 mg/dL); URINE UROBILINOGEN >=8.0 E.U./dL (<1 E.U./dL)
[2018-04-13 18:29] LABS: WHITE BLOOD COUNT 2.6 10^3/ul (4.5-11.0)
[2018-04-13 18:30] LABS: URINE APPEARANCE SL CLOUDY (CLEAR); URINE COLOR DARK YELLOW (YELLOW)
[2018-04-13 18:33] LABS: INR 0.97 (0.93-1.08)
[2018-04-13 18:37] LABS: ALB/GLOB RATIO 0.6 (1.1-1.8); ALBUMIN 2.4 g/dL (3.0-4.8); ALT/SGPT 526 U/L (7-56); BLOOD UREA NITROGEN 14 mg/dL (7-21); CALCIUM 7.9 mg/dL (8.4-10.5); GFR AFRICAN-AMERICAN > 60; GFR NON-AFRICAN AMERICAN > 60
[2018-04-13 18:38] LABS: URINE BACTERIA MOD (NEG); URINE WBC 15 - 20 /hpf (0-6)
[2018-04-13 18:49] LABS: TROPONIN I 0.23 ng/mL
[2018-04-13 19:06] LABS: AST/SGOT 2667 U/L (14-36)
[2018-04-13] MEDS ORDERED: Sodium Chloride 0.9% 2,000 ML IV STA (19:36)
[2018-04-13] MEDS ORDERED: Dextrose 50% SYRINGE Inj (50 ml) IVP STA (19:36)
[2018-04-13] MEDS ORDERED: Dextrose 50% SYRINGE Inj (50 ml) ONE (19:37)
[2018-04-13] MEDS ORDERED: Nitroglycerin 2% Ointment Foilpak UD TOP STA (20:53)
[2018-04-13] MEDS ORDERED: Metoprolol 1 mg/ml Inj IVP STA (20:53)
[2018-04-13] MEDS ORDERED: Iohexol 350 MG/100 ML VIAL ONE (21:04)
--- NOTE | 2018-04-13 23:01 | CP.PCM.HP ---
History of Present Illness - History of Present Illness History of Present Illness: 37 year old female with a past medical history of HIV, copd, and heroin abuse who comes in today complaining of chest pain for the past two days. The patient states that the pain is mid-sternal with no radiation. She describes it as tight and sharp in nature. She reports taking a nebulizer treatment at home with no improvement in symptoms. She reports nausea and dizziness in conjunction with the chest pain. She also reports decrease in appeptite since Wednesday and a 10 pound weight loss over the past week. Of note she hasn't been on HAART therapy for over a year due to her inability to find a new Infectious Disease Physician. Patient recently was seen by Dr. Chou and prescribed a new medication however is awaiting autherization of the medication from her insurance company. She denies any abdominal pain, changes in vision, headache, confusion, or any other complaints. Past medical history : HIV (viral load and CD4 count unknown), COPD Past surgical history: Neck surgery Allergies: Penicillins, Bactrim Family history: Dad-Diabetes, Mom Hypertension Social history: Smoker (Vape pin). Social drinker. Former Heroin abuse. On Methadone Treatment from [facility] in [place]. PMD: Dr. Carter Present on Admission - Present on Admission Any Indicators Present on Admission: No Review of Systems - Constitutional Constitutional: Chills, Weight Loss, Weakness. absent: Daytime Sleepiness, Frequent Falls, Headache, Night Sweats, Snoring - EENT Eyes: absent: Blurred Vision, Discharge, Loss of Peripheral Vision, Sees Flashes , Loss of Vision Nose/Mouth/Throat: absent: Nasal Congestion, Nose Pain, Bleeding Gums, Dysphagia , Facial Pain - Cardiovascular Cardiovascular: Chest Pain. absent: Claudication, Irregular Heart Rhythm, Leg Edema, Palpitations, Pedal Edema, Syncope - Respiratory Respiratory: Cough. absent: Dyspnea, Hemoptysis, Pain on Inspiration, Change in Mucous Color - Gastrointestinal Gastrointestinal: absent: Belching, Change in Stool Character, Diarrhea, Dyspepsia, Excessive Flatus, Fecal Incontinence - Genitourinary Genitourinary: absent: Dysuria, Pyuria, Nocturia - Musculoskeletal Musculoskeletal: absent: Arthralgias, Limited Range of Motion, Muscle Weakness, Myalgias, Stiffness, Tingling - Neurological Neurological: absent: Behavioral Changes, Disequilibrium, Headaches, Paresthesias, Radicular Pain, Syncope - Endocrine Endocrine: absent: Polydipsia, Polyphagia, Polyuria Past Patient History - Infectious Disease Hx of Infectious Diseases: None - Tetanus Immunizations Tetanus Immunization: Unknown - Past Social History Smoking Status: Former Smoker - CARDIAC Hx Cardiac Disorders: Yes - PULMONARY Hx Respiratory Disorders: Yes (has nebulizer machine at home) Hx Asthma: Yes Hx Bronchitis: Yes Hx Chronic Obstructive Pulmonary Disease (COPD): Yes Hx Pneumonia: Yes - NEUROLOGICAL Hx Migraine: Yes - HEENT Hx Macular Degeneration: Yes - RENAL Hx Chronic Kidney Disease: No - ENDOCRINE/METABOLIC Hx Endocrine Disorders: No - HEMATOLOGICAL/ONCOLOGICAL Hx Blood Disorders: Yes (blood transfusion) Hx AIDS: Yes Hx Hepatitis C: Yes (IVDU) - INTEGUMENTARY Hx Dermatological Problems: Yes - MUSCULOSKELETAL/RHEUMATOLOGICAL Hx Musculoskeletal Disorders: Yes Hx Back Pain: Yes Hx Falls: No Other/Comment: SCOLIOSIS - GASTROINTESTINAL Hx Gastrointestinal Disorders: Yes - GENITOURINARY/GYNECOLOGICAL Hx Genitourinary Disorders: Yes Hx Urinary Tract Infection: Yes - PSYCHIATRIC Hx Psychophysiologic Disorder: Yes Hx Anxiety: Yes Hx Substance Use: No Other/Comment: hx ivdu/cocaine stopped 6 yrs ago on methadone program, smokes 1 ppd has not smoked in 4 days - SURGICAL HISTORY Other/Comment: right anterior neck SX for abcesses bx neg - ANESTHESIA Hx Anesthesia: Yes Hx Anesthesia Reactions: No Hx Malignant Hyperthermia: No Meds Allergies/Adverse Reactions: Allergies Allergy/AdvReac Type Severity Reaction Status Date / Time levofloxacin [From Levaquin] Allergy RASH Verified 04/13/18 16:44 Penicillins Allergy RASH Verified 03/11/18 17:15 azithromycin [From Zithromax] AdvReac RASH Verified 04/13/18 16:44 flexeril AdvReac RASH Uncoded 03/11/18 17:15 Physical Exam - Head Exam Head Exam: ATRAUMATIC, NORMAL INSPECTION, NORMOCEPHALIC - Eye Exam Eye Exam: EOMI, Normal appearance, PERRL. absent: Periorbital swelling Pupil Exam: NORMAL ACCOMODATION, PERRL. absent: Irregular, Unequal - ENT Exam ENT Exam: Mucous Membranes Moist, Normal Oropharynx - Neck Exam Neck exam: Positive for: Normal Inspection - Respiratory Exam Respiratory Exam: Rhonchi, Wheezes. absent: Clear to Auscultation Bilateral, Respiratory Distress - Cardiovascular Exam Cardiovascular Exam: REGULAR RHYTHM, +S1, +S2 - GI/Abdominal Exam GI & Abdominal Exam: Normal Bowel Sounds, Soft. absent: Hypoactive Bowel Sounds , Organomegaly, Tenderness - Extremities Exam Extremities exam: Positive for: normal inspection. Negative for: full ROM, pedal edema - Neurological Exam Neurological exam: Alert, CN II-XII Intact, Normal Gait, Oriented x3 - Psychiatric Exam Psychiatric exam: Normal Affect, Normal Mood - Skin Skin Exam: Dry, Intact, Normal Color, Warm Results - Vital Signs Recent Vital Signs: Last Vital Signs Temp 98.0 F 04/13/18 16:46 Pulse 107 H 04/13/18 22:18 Resp 18 04/13/18 22:18 BP 101/64 04/13/18 22:18 Pulse Ox 90 L 04/13/18 22:18 - Labs Result Diagrams: 04/13/18 18:09 04/13/18 18:09 Assessment & Plan - Assessment and Plan (Free Text) Assessment: 37 year old female with a past medical history of HIV, COPD, and heroin abuse being admitted for chest pain. Plan: 1.Chest pain r/o acs. Cardiac vs. musculoskeletal -EKG: Sinus Tachy @109bpm -Troponin .23. Trend troponins -Lipid panel ordered. Will f/u with results -Hemoglobin A1C ordered. Will f/u with results. -TSH ordered. Will f/u with results. -Echo ordered. Will f/u with results -Cardiology consulted. Help appreciated -Aspiring 81mg PO Daily 2. hx of HIV -Last CD 4 count <20. Non compliant with medications -Viral load ordered. Will f/u with results. -CD4 count ordered. WIll f/u with results. -ID consulted. Help appreciated. 3.COPD -continue home medications 4.?PNA CXR shows possible R interstitial infiltrate. -IV solumedrol 30mg PO q12 -Duonebs. -IV antibiotics -Will monitor PPX -Heparin -Protonix Plan discussed with Dr. Omar Cam, PGY-1
[2018-04-13] MEDS: Albuterol-Ipratrop 3 mg / 0.5 (3 ml) UD IH SCH (23:45)
[2018-04-14 00:24] LABS: HDL CHOLESTEROL 19 mg/dL (29-60)
[2018-04-14] MEDS ORDERED: Albuterol-Ipratrop 3 mg / 0.5 (3 ml) UD IH STA (00:29)
[2018-04-14 00:30] LABS: ARTERIAL BLOOD GAS HCO3 21.1 mmol/L (21-28); ARTERIAL BLOOD GAS O2 SAT 87.4 % (95-98); ARTERIAL BLOOD GAS PCO2 46 mm/Hg (35-45); ARTERIAL BLOOD GAS PH 7.27 (7.35-7.45); ARTERIAL BLOOD GAS TCO2 22.5 mmol.L (22-28)
[2018-04-14 00:35] LABS: LDL CHOLESTEROL 31 mg/dL (0-129)
[2018-04-14] MEDS ORDERED: Sodium Chloride 0.9% 1,000 ML IV STA (01:34)
[2018-04-14] MEDS ORDERED: Sodium Chloride 0.9% 1,000 ML IV SCH (01:45)
[2018-04-14] MEDS ORDERED: DOBUTamine 500mg/250ml D5W 500 MG/250 ML BAG IV PRN (02:55)
--- NOTE | 2018-04-14 03:00 | CP.PCM.CON ---
<Jared Cam - Last Filed: 04/14/18 03:11> History of Present Illness - History of Present Illness History of Present Illness: 37 year old female with a past medical history of HIV, copd, and heroin abuse who comes in today complaining of chest pain for the past two days. The patient states that the pain is mid-sternal with no radiation. She describes it as tight and sharp in nature. She reports taking a nebulizer treatment at home with no improvement in symptoms. She reports nausea and dizziness in conjunction with the chest pain. She also reports decrease in appeptite since Wednesday and a 10 pound weight loss over the past week. Of note she hasn't been on HAART therapy for over a year due to her inability to find a new Infectious Disease Physician. Patient recently was seen by Dr. Chou and prescribed a new medication however is awaiting autherization of the medication from her insurance company. She denies any abdominal pain, changes in vision, headache, confusion, or any other complaints. ICU was consulted for persistent hypotension in spite of fluid resuscitation. Past medical history : HIV (viral load and CD4 count unknown), COPD Past surgical history: Neck surgery Allergies: Penicillins, Bactrim Family history: Dad-Diabetes, Mom Hypertension Social history: Smoker (Vape pin). Social drinker. Former Heroin abuse. On Methadone Treatment from [facility] in [place]. PMD: Dr. Carter Review of Systems - Constitutional Constitutional: absent: Chills, Daytime Sleepiness, Snoring, Weakness - EENT Eyes: absent: Blurred Vision, Discharge, Requires Corrective Lenses, Loss of Vision Ears: absent: Ear Discharge, Dizziness Nose/Mouth/Throat: absent: Nasal Congestion, Nose Pain, Dysphagia, Mouth Pain, Facial Pain - Cardiovascular Cardiovascular: Chest Pain. absent: Diaphoresis, Irregular Heart Rhythm, Leg Edema, Palpitations, Pedal Edema, Syncope - Respiratory Respiratory: absent: Cough, Dyspnea, Hemoptysis, Snoring, Pain on Inspiration, Excessive Mucous Production - Gastrointestinal Gastrointestinal: absent: Abdominal Pain, Belching, Cramping, Diarrhea, Loose Stools, Melena, Nausea, Vomiting - Musculoskeletal Musculoskeletal: absent: Arthralgias, Myalgias, Stiffness, Tingling - Integumentary Integumentary: absent: Acne, Hirsutism, New Lesions, Photosensitivity, Sores - Neurological Neurological: Dizziness. absent: Abnormal Hearing, Behavioral Changes, Burning Sensations, Numbness, Loss of Vision - Psychiatric Psychiatric: absent: Behavioral Changes, Depression, Homicidal Ideation, Panic Attacks - Endocrine Endocrine: absent: Flushing, Polydipsia, Polyphagia, Polyuria - Hematologic/Lymphatic Hematologic: absent: Easy Bleeding, Easy Bruising Past Patient History - Infectious Disease Hx of Infectious Diseases: None - Tetanus Immunizations Tetanus Immunization: Unknown - Past Social History Smoking Status: Current Some Days Smoker - CARDIAC Hx Cardiac Disorders: No - PULMONARY Hx Respiratory Disorders: Yes Hx Asthma: Yes Hx Bronchitis: Yes Hx Chronic Obstructive Pulmonary Disease (COPD): Yes Hx Pneumonia: Yes - NEUROLOGICAL Hx Neurological Disorder: Yes Hx Migraine: Yes Hx Seizures: Yes - HEENT Hx HEENT Problems: No - RENAL Hx Chronic Kidney Disease: No - ENDOCRINE/METABOLIC Hx Endocrine Disorders: No - HEMATOLOGICAL/ONCOLOGICAL Hx Blood Disorders: Yes Hx AIDS: Yes Hx Anemia: Yes (WITH TRANSFUSIONS) Hx Hepatitis C: Yes - INTEGUMENTARY Hx Dermatological Problems: Yes Hx Eczema: Yes - MUSCULOSKELETAL/RHEUMATOLOGICAL Hx Musculoskeletal Disorders: Yes Hx Back Pain: Yes Hx Falls: Yes Hx Herniated Disk: Yes - GASTROINTESTINAL Hx Gastrointestinal Disorders: Yes Hx Gastroesophageal Reflux: Yes Hx Liver Failure: Yes - GENITOURINARY/GYNECOLOGICAL Hx Genitourinary Disorders: Yes Hx Urinary Tract Infection: Yes - PSYCHIATRIC Hx Psychophysiologic Disorder: Yes (HX IVDU) Hx Anxiety: Yes Hx Depression: Yes Hx Substance Use: Yes (HX OF HEROIN ABUSE, CURRENTLY ON METHADONE) - SURGICAL HISTORY Hx Surgeries: Yes Other/Comment: R NECK SX:BIOPSY AND REMOVAL OF "LUMP" - ANESTHESIA Hx Anesthesia: Yes Hx Anesthesia Reactions: No Hx Malignant Hyperthermia: No Meds Allergies/Adverse Reactions: Allergies Allergy/AdvReac Type Severity Reaction Status Date / Time levofloxacin [From Levaquin] Allergy RASH Verified 04/13/18 16:44 Penicillins Allergy RASH Verified 03/11/18 17:15 azithromycin [From Zithromax] AdvReac RASH Verified 04/13/18 16:44 flexeril AdvReac RASH Uncoded 03/11/18 17:15 - Medications Medications: Current Medications Albuterol/Ipratropium (Duoneb 3 Mg/0.5 Mg (3 Ml) Ud) 3 ml IH [id number] [facility] Stop: 04/14/18 07:31 Benzonatate (Tessalon Perles) 100 mg PO TID [facility] Enoxaparin Sodium (Lovenox) 40 mg SC DAILY [facility] PRN Reason: Protocol Sodium Chloride (Sodium Chloride 0.9%) 1,000 mls @ 125 mls/hr IV .Q8H [facility] Last Admin: 04/14/18 02:40 Dose: 125 mls/hr Clindamycin Phosphate 900 mg/ (Sodium Chloride) 106 mls @ 106 mls/hr IVPB Q8 [facility] PRN Reason: Protocol Dobutamine HCl/Dextrose (Dobutamine/Dextrose 5% 500mg/250ml) 500 mg in 250 mls @ 7.491 mls/hr IV .Q24H PRN; 5 MCG/KG/MIN PRN Reason: Systolic Blood Pressure Methylprednisolone (Solu-Medrol) 30 mg IVP Q12 [facility] Mirtazapine (Remeron) 30 mg PO HS [facility] Pantoprazole Sodium (Protonix Inj) 40 mg IVP DAILY [facility] Primaquine Phosphate (Primaquine) 26.3 mg PO DAILY [facility] PRN Reason: Protocol Physical Exam - Head Exam Head Exam: ATRAUMATIC, NORMAL INSPECTION, NORMOCEPHALIC - Eye Exam Eye Exam: EOMI, Normal appearance, PERRL Pupil Exam: NORMAL ACCOMODATION, PERRL. absent: Irregular, Unequal - ENT Exam ENT Exam: Mucous Membranes Moist, Normal Oropharynx - Respiratory Exam Respiratory Exam: Rhonchi, Wheezes. absent: Chest Wall Tenderness, Prolonged Expiratory Phase, Respiratory Distress - Cardiovascular Exam Cardiovascular Exam: REGULAR RHYTHM, +S1, +S2 - GI/Abdominal Exam GI & Abdominal Exam: Normal Bowel Sounds, Soft. absent: Tenderness - Extremities Exam Extremities exam: Positive for: normal inspection. Negative for: full ROM, joint swelling, pedal edema, tenderness - Back Exam Back exam: NORMAL INSPECTION. absent: CVA tenderness (L), CVA tenderness (R), paraspinal tenderness - Neurological Exam Neurological exam: Alert, CN II-XII Intact, Oriented x3 - Psychiatric Exam Psychiatric exam: Normal Affect, Normal Mood - Skin Skin Exam: Dry, Intact, Normal Color, Warm Results - Vital Signs Recent Vital Signs: Last Vital Signs Temp 97.7 F 04/14/18 01:19 Pulse 104 H 04/14/18 01:19 Resp 16 04/14/18 01:19 BP 87/51 L 04/14/18 01:19 Pulse Ox 91 L 04/14/18 00:55 - Labs Result Diagrams: 04/13/18 18:09 04/13/18 18:09 Labs: Laboratory Results - last 24 hr 04/13/18 04/13/18 04/14/18 23:06 23:06 00:21 pCO2 46 H pO2 52.0 L HCO3 21.1 ABG pH 7.27 L ABG Total CO2 22.5 ABG O2 Saturation 87.4 L ABG Base Excess -5.9 L ABG Potassium 3.5 L Sodium 136.0 Chloride 120.0 H Glucose 169 H Lactate 1.2 FiO2 40.0 Troponin I 0.22 H* Triglycerides 141 Cholesterol 86 L LDL Cholesterol Direct 31 HDL Cholesterol 19 L Arterial Blood Potassium 3.5 L Assessment & Plan - Assessment and Plan (Free Text) Assessment: Patient is a 37 year old female with history of HIV with unknown CD4 count, COPD , chronic pain syndrome medicated with methadone who presented with acute shortness of breath, cough, hypotensive, and tachycardia unresponsive to fluid resuscitation. Plan: Neuro: - AAO x 3 - Pain control; will be cautious with methadone as it can suppress patient's respiratory drive. Pulm: - CXR showed increased interstitial markings - maintain SPO2 >90-94 - Duoneb PRN - Continue with steroids - Cont home medications - 98% O2 on 2L NC CV: - Currently on dobutamine drip for right ventricular failure - maintain MAP > 65 - Cont to monitor GI: - ppx with protonix Renal: - Avoid nephrotoxic medications - replete electrolytes as needed ID: -HIV positive. No HAART treatment for the past 1 year due to loss of ID Physician. Patient seeing Dr. Chou who recently prescibed new medication however unable to begin treatment due to insurance problems. -Patient currently on steroids ,primaquine/clindamycin for possible PCP -CMV, cryptococcus, fungitell B-D glucan, strep pneumo antigen, legionella urine ag ordered; results pending -Blood, Sputum culture results pending Heme: - Stable - Monitor H/H GI/ DVT ppx - Protonix and Heparin Dispo: Patient has been transferred to ICU for pressure support Case discussed with Rack Carrier Dr. Cox. Jared Cam, PGY-1 <Gordon Cox - Last Filed: 04/14/18 06:55> Meds - Medications Medications: Current Medications Albuterol/Ipratropium (Duoneb 3 Mg/0.5 Mg (3 Ml) Ud) 3 ml IH [id number] [facility] Stop: 04/14/18 07:31 Last Admin: 04/14/18 03:25 Dose: 3 ml Benzonatate (Tessalon Perles) 100 mg PO TID [facility] Enoxaparin Sodium (Lovenox) 40 mg SC DAILY [facility] PRN Reason: Protocol Clindamycin Phosphate 900 mg/ (Sodium Chloride) 106 mls @ 106 mls/hr IVPB Q8 [facility] PRN Reason: Protocol Last Admin: 04/14/18 05:18 Dose: 106 mls/hr Dobutamine HCl/Dextrose (Dobutamine/Dextrose 5% 500mg/250ml) 500 mg in 250 mls @ 7.491 mls/hr IV .Q24H PRN; 5 MCG/KG/MIN PRN Reason: Systolic Blood Pressure Last Admin: 04/14/18 03:59 Dose: 7.491 mls/hr Sodium Chloride (Sodium Chloride 0.9%) 1,000 mls @ 100 mls/hr IV .Q10H [facility] Last Admin: 04/14/18 04:00 Dose: 100 mls/hr Methylprednisolone (Solu-Medrol) 30 mg IVP Q12 [facility] Mirtazapine (Remeron) 30 mg PO HS [facility] Pantoprazole Sodium (Protonix Inj) 40 mg IVP DAILY [facility] Primaquine Phosphate (Primaquine) 26.3 mg PO DAILY [facility] PRN Reason: Protocol Results - Vital Signs Recent Vital Signs: Last Vital Signs Temp 97.7 F 04/14/18 01:19 Pulse 82 04/14/18 06:45 Resp 16 04/14/18 06:45 BP 102/68 04/14/18 06:45 Pulse Ox 95 04/14/18 06:45 - Labs Result Diagrams: 04/13/18 18:09 04/13/18 18:09 Labs: Laboratory Results - last 24 hr 04/13/18 04/13/18 04/14/18 23:06 23:06 00:21 pCO2 46 H pO2 52.0 L HCO3 21.1 ABG pH 7.27 L ABG Total CO2 22.5 ABG O2 Saturation 87.4 L ABG Base Excess -5.9 L ABG Potassium 3.5 L Sodium 136.0 Chloride 120.0 H Glucose 169 H Lactate 1.2 FiO2 40.0 Troponin I 0.22 H* Triglycerides 141 Cholesterol 86 L LDL Cholesterol Direct 31 HDL Cholesterol 19 L Arterial Blood Potassium 3.5 L Urine Opiates Screen Urine Methadone Screen Ur Barbiturates Screen Ur Phencyclidine Scrn Ur Amphetamines Screen U Benzodiazepines Scrn U Oth Cocaine Metabols U Cannabinoids Screen 04/14/18 03:00 pCO2 pO2 HCO3 ABG pH ABG Total CO2 ABG O2 Saturation ABG Base Excess ABG Potassium Sodium Chloride Glucose Lactate FiO2 Troponin I Triglycerides Cholesterol LDL Cholesterol Direct HDL Cholesterol Arterial Blood Potassium Urine Opiates Screen Negative Urine Methadone Screen Positive H Ur Barbiturates Screen Negative Ur Phencyclidine Scrn Negative Ur Amphetamines Screen Negative U Benzodiazepines Scrn Negative U Oth Cocaine Metabols Negative U Cannabinoids Screen Negative Attending/Attestation - Attestation I have personally seen and examined this patient.: Yes I have fully participated in the care of the patient.: Yes I have reviewed all pertinent clinical information: Yes Notes (Text): Patient seen and examined with the residents. Agree with above Was called given the patient's history and low blood pressure Symptoms of dry cough, fever and chills. Admitted for chest pain. Given her non-compliance to ART and low CD4 count, worrisome for PCP pneumonia ABG with 7.27/46/52 and thus hypoxic on room air. Elevated A-a gradient. Elevated LDH CT imaging reviewed although official report pending, ground glass appearance. Hypotension and mildly tachycardic. Was given ivf hydration with minimal response Will transfer to the MICU for closer monitoring of hemodynamics and possible pressor support Abx with Primaquine and IV Clindamycin. Will get ID consultation.
[2018-04-14] MEDS: Albuterol-Ipratrop 3 mg / 0.5 (3 ml) UD IH SCH ×2 (03:25→07:27)
[2018-04-14] MEDS: Sodium Chloride 0.9% 1,000 ML IV SCH ×3 (04:00→22:11)
[2018-04-14 04:11] LABS: PHENCYCLIDINE, UR NEGATIVE (NEGATIVE)
[2018-04-14 04:26] LABS: BARBITURATES, UR NEGATIVE (NEGATIVE); BENZODIAZEPINES, UR NEGATIVE (NEGATIVE); OPIATES, UR NEGATIVE (NEGATIVE)
[2018-04-14 07:07] LABS: GRAN # 0.95 (1.4-6.5); GRAN % 73.7 % (50.0-68.0); LYMPH # 0.2 (1.2-3.4); LYMPH % 17.8 % (22.0-35.0); MEAN CELL VOLUME 86.4 fl (80.0-105.0); MEAN CORPUSCULAR HEMOGLOBIN 26.8 pg (25.0-35.0); MONO # 0.1 (0.1-0.6); MONO % 8.5 % (1.0-6.0); RBC 4.11 10^6/uL (3.5-6.1); RED CELL DISTRIBUTION WIDTH 19.6 % (11.5-14.5)
[2018-04-14 07:25] LABS: ALB/GLOB RATIO 0.6 (1.1-1.8); ALT/SGPT 472 U/L (7-56); BLOOD UREA NITROGEN 12 mg/dL (7-21); CALCIUM 7.1 mg/dL (8.4-10.5); GFR AFRICAN-AMERICAN > 60; GFR NON-AFRICAN AMERICAN > 60
[2018-04-14 07:30] LABS: TROPONIN I 0.12 ng/mL
[2018-04-14 07:49] LABS: WHITE BLOOD COUNT 1.3 10^3/ul (4.5-11.0)
[2018-04-14 07:50] LABS: PLATELET COUNT 42 10^3/uL (120.0-450.0)
--- NOTE | 2018-04-14 08:00 | CP.CCUPN ---
<HaileyLizetteGuillermina - Last Filed: 04/14/18 11:19> CCU Subjective - Physician Review Subjective (Free Text): 04/14/18 10:09 Lethargic, easily awaken, able to finish 1 sentence w/o pause. Off bipap on High flow now CCU Objective - Vital Signs / Intake & Output Vital Signs (Last 4 hours): Vital Signs Temp Pulse Resp BP Pulse Ox 04/14/18 07:33 97 H 04/14/18 06:45 82 16 102/68 95 04/14/18 06:40 82 16 95 04/14/18 06:30 84 16 102/69 95 04/14/18 06:20 85 16 95 04/14/18 06:15 86 16 101/67 96 04/14/18 06:10 88 16 95 04/14/18 06:00 86 16 106/67 96 04/14/18 05:50 95 H 17 94 L 04/14/18 05:45 88 16 96/65 L 95 04/14/18 05:40 87 16 95 04/14/18 05:30 88 16 96/62 L 95 04/14/18 05:20 89 16 95 04/14/18 05:15 89 16 99/64 L 95 04/14/18 05:10 92 H 16 95 04/14/18 05:00 93 H 17 98/64 L 95 04/14/18 04:50 90 16 95 04/14/18 04:45 91 H 16 92/61 L 95 04/14/18 04:40 90 16 95 04/14/18 04:30 92 H 16 96/61 L 95 04/14/18 04:20 93 H 16 95 04/14/18 04:15 93 H 16 99/59 L 95 04/14/18 04:10 92 H 16 95 04/14/18 04:00 97.5 F L 93 H 16 94/57 L 95 Intake and Output (Last 8hrs): Intake & Output 04/13/18 04/14/18 04/14/18 22:59 06:59 14:59 Intake Total 1532 Output Total 400 Balance 1132 Weight 112 lb Intake: IV 1532 0.9 400 Left Upper arm 1000 abx 100 dobutamine 32 Output: Urine 400 Urine, Voided 400 - Physical Exam Head: Positive for: Atraumatic, Normocephalic Pupils: Positive for: PERRL Extroacular Muscles: Positive for: EOMI Conjunctiva: Positive for: Normal Mouth: Positive for: Moist Mucous Membranes Neck: Positive for: Normal Range of Motion Respiratory/Chest: Positive for: Decreased Breath Sounds (RUL), Rales, Rhonchi, Tender to Palpation (Chest wall tenderness). Negative for: Clear to Auscultation, Respiratory Distress, Accessory Muscle Use Cardiovascular: Positive for: Regular Rate and Rhythm, Normal S1, S2. Negative for: Murmurs Abdomen: Negative for: Tenderness, Distention, Peritoneal Signs Back: Positive for: Normal Inspection Upper Extremity: Positive for: Normal Inspection. Negative for: Cyanosis, Edema Lower Extremity: Positive for: Swelling (Dorsum left foot swelling) Neurological: Positive for: GCS=15, CN II-XII Intact, Speech Normal Skin: Positive for: Warm, Dry, Normal Color. Negative for: Rashes Psychiatric: Positive for: Alert, Oriented x 3, Normal Insight, Normal Concentration - Medications Active Medications: Active Medications Generic Name Dose Route Start Last Admin Trade Name Freq PRN Reason Stop Dose Admin Benzonatate 100 mg 04/14/18 10:00 Tessalon Perles PO TID EDSON Enoxaparin Sodium 40 mg 04/14/18 10:00 Lovenox SC DAILY EDSON Protocol Clindamycin Phosphate 900 mg/ 106 mls @ 106 mls/hr 04/14/18 06:00 04/14/18 05 :18 Sodium Chloride IVPB 106 mls/hr Q8 EDSON Administration Protocol Dobutamine HCl/Dextrose 500 mg in 250 mls @ 7.491 mls/hr 04/14/18 02:55 04/14 03:59 Dobutamine/Dextrose 5% 500mg/250ml IV 7.491 mls/hr .Q24H PRN Administration Systolic Blood Pressure 5 MCG/KG/MIN Sodium Chloride 1,000 mls @ 100 mls/hr 04/14/18 03:12 04/14/18 04:00 Sodium Chloride 0.9% IV 100 mls/hr .Q10H EDSON Administration Methylprednisolone 30 mg 04/14/18 10:00 Solu-Medrol IVP Q12 EDSON Mirtazapine 30 mg 04/14/18 22:00 Remeron PO HS EDSON Pantoprazole Sodium 40 mg 04/14/18 10:00 Protonix Inj IVP DAILY EDSON Primaquine Phosphate 26.3 mg 04/14/18 10:00 Primaquine PO DAILY EDSON Protocol - Patient Studies Lab Studies: Lab Studies 04/14/18 04/14/18 04/14/18 Range/Units 05:50 05:50 03:00 WBC 1.3 L* D (4.5-11.0) 10^3/ul RBC 4.11 (3.5-6.1) 10^6/uL Hgb 11.0 L (12.0-16.0) g/dL Hct 35.5 L (36.0-48.0) % MCV 86.4 (80.0-105.0) fl MCH 26.8 (25.0-35.0) pg MCHC 31.0 (31.0-37.0) g/dl RDW 19.6 H (11.5-14.5) % Plt Count 42 L* (120.0-450.0) 10^3/uL Gran % 73.7 H (50.0-68.0) % Lymph % (Auto) 17.8 L (22.0-35.0) % [place] % (Auto) 8.5 H (1.0-6.0) % Eos % (Auto) 0.0 L (1.5-5.0) % Baso % (Auto) 0.0 (0.0-3.0) % Gran # 0.95 L (1.4-6.5) Lymph # (Auto) 0.2 L (1.2-3.4) [place] # (Auto) 0.1 (0.1-0.6) Eos # (Auto) 0.0 (0.0-0.7) Baso # (Auto) 0.00 (0.0-2.0) K/mm3 pCO2 (35-45) mm/Hg pO2 (80-100) mm/Hg HCO3 (21-28) mmol/L ABG pH (7.35-7.45) ABG Total CO2 (22-28) mmol.L ABG O2 Saturation (95-98) % ABG Base Excess (-2.0-3.0) mmol/L ABG Potassium (3.6-5.2) mmol/L Sodium 138 (132-148) mmol/L Chloride 107 (98-107) mmol/L Glucose (65-105) mg/dl Lactate (0.7-2.1) mmol/L FiO2 % Potassium 4.3 (3.6-5.0) mmol/L Carbon Dioxide 25 (21-33) mmol/L Anion Gap 11 (10-20) BUN 12 (7-21) mg/dL Creatinine 0.8 (0.7-1.2) mg/dl Est GFR ( Amer) > 60 Est GFR (Non-Af Amer) > 60 Random Glucose 250 H (70-110) mg/dL Calcium 7.1 L (8.4-10.5) mg/dL Total Bilirubin 0.7 (0.2-1.3) mg/dL ALT 472 H (7-56) U/L Alkaline Phosphatase 263 H (38-126) U/L Troponin I 0.12 D ng/mL Total Protein 5.4 L (5.8-8.3) g/dL Albumin 2.0 L (3.0-4.8) g/dL Globulin 3.4 gm/dL Albumin/Globulin Ratio 0.6 L (1.1-1.8) Triglycerides (35-160) mg/dL Cholesterol (130-200) mg/dL LDL Cholesterol Direct (0-129) mg/dL HDL Cholesterol (29-60) mg/dL Arterial Blood Potassium (3.6-5.2) mmol/L Urine Opiates Screen Negative (NEGATIVE) Urine Methadone Screen Positive H (NEGATIVE) Ur Barbiturates Screen Negative (NEGATIVE) Ur Phencyclidine Scrn Negative (NEGATIVE) Ur Amphetamines Screen Negative (NEGATIVE) U Benzodiazepines Scrn Negative (NEGATIVE) U Oth Cocaine Metabols Negative (NEGATIVE) U Cannabinoids Screen Negative (NEGATIVE) 04/14/18 04/13/18 04/13/18 Range/Units 00:21 23:06 23:06 WBC (4.5-11.0) 10^3/ul RBC (3.5-6.1) 10^6/uL Hgb (12.0-16.0) g/dL Hct (36.0-48.0) % MCV (80.0-105.0) fl MCH (25.0-35.0) pg MCHC (31.0-37.0) g/dl RDW (11.5-14.5) % Plt Count (120.0-450.0) 10^3/uL Gran % (50.0-68.0) % Lymph % (Auto) (22.0-35.0) % [place] % (Auto) (1.0-6.0) % Eos % (Auto) (1.5-5.0) % Baso % (Auto) (0.0-3.0) % Gran # (1.4-6.5) Lymph # (Auto) (1.2-3.4) [place] # (Auto) (0.1-0.6) Eos # (Auto) (0.0-0.7) Baso # (Auto) (0.0-2.0) K/mm3 pCO2 46 H (35-45) mm/Hg pO2 52.0 L (80-100) mm/Hg HCO3 21.1 (21-28) mmol/L ABG pH 7.27 L (7.35-7.45) ABG Total CO2 22.5 (22-28) mmol.L ABG O2 Saturation 87.4 L (95-98) % ABG Base Excess -5.9 L (-2.0-3.0) mmol/L ABG Potassium 3.5 L (3.6-5.2) mmol/L Sodium 136.0 (132-148) mmol/L Chloride 120.0 H (98-107) mmol/L Glucose 169 H (65-105) mg/dl Lactate 1.2 (0.7-2.1) mmol/L FiO2 40.0 % Potassium (3.6-5.0) mmol/L Carbon Dioxide (21-33) mmol/L Anion Gap (10-20) BUN (7-21) mg/dL Creatinine (0.7-1.2) mg/dl Est GFR ( Amer) Est GFR (Non-Af Amer) Random Glucose (70-110) mg/dL Calcium (8.4-10.5) mg/dL Total Bilirubin (0.2-1.3) mg/dL ALT (7-56) U/L Alkaline Phosphatase (38-126) U/L Troponin I 0.22 H* ng/mL Total Protein (5.8-8.3) g/dL Albumin (3.0-4.8) g/dL Globulin gm/dL Albumin/Globulin Ratio (1.1-1.8) Triglycerides 141 (35-160) mg/dL Cholesterol 86 L (130-200) mg/dL LDL Cholesterol Direct 31 (0-129) mg/dL HDL Cholesterol 19 L (29-60) mg/dL Arterial Blood Potassium 3.5 L (3.6-5.2) mmol/L Urine Opiates Screen (NEGATIVE) Urine Methadone Screen (NEGATIVE) Ur Barbiturates Screen (NEGATIVE) Ur Phencyclidine Scrn (NEGATIVE) Ur Amphetamines Screen (NEGATIVE) U Benzodiazepines Scrn (NEGATIVE) U Oth Cocaine Metabols (NEGATIVE) U Cannabinoids Screen (NEGATIVE) Laboratory Results - last 24 hr 04/13/18 04/13/18 04/14/18 23:06 23:06 00:21 WBC RBC Hgb Hct MCV MCH MCHC RDW Plt Count Gran % Lymph % (Auto) [place] % (Auto) Eos % (Auto) Baso % (Auto) Gran # Lymph # (Auto) [place] # (Auto) Eos # (Auto) Baso # (Auto) pCO2 46 H pO2 52.0 L HCO3 21.1 ABG pH 7.27 L ABG Total CO2 22.5 ABG O2 Saturation 87.4 L ABG Base Excess -5.9 L ABG Potassium 3.5 L Sodium 136.0 Chloride 120.0 H Glucose 169 H Lactate 1.2 FiO2 40.0 Potassium Carbon Dioxide Anion Gap BUN Creatinine Est GFR ( Amer) Est GFR (Non-Af Amer) Random Glucose Calcium Total Bilirubin ALT Alkaline Phosphatase Troponin I 0.22 H* Total Protein Albumin Globulin Albumin/Globulin Ratio Triglycerides 141 Cholesterol 86 L LDL Cholesterol Direct 31 HDL Cholesterol 19 L Arterial Blood Potassium 3.5 L Urine Opiates Screen Urine Methadone Screen Ur Barbiturates Screen Ur Phencyclidine Scrn Ur Amphetamines Screen U Benzodiazepines Scrn U Oth Cocaine Metabols U Cannabinoids Screen 04/14/18 04/14/18 04/14/18 03:00 05:50 05:50 WBC 1.3 L* D RBC 4.11 Hgb 11.0 L Hct 35.5 L MCV 86.4 MCH 26.8 MCHC 31.0 RDW 19.6 H Plt Count 42 L* Gran % 73.7 H Lymph % (Auto) 17.8 L [place] % (Auto) 8.5 H Eos % (Auto) 0.0 L Baso % (Auto) 0.0 Gran # 0.95 L Lymph # (Auto) 0.2 L [place] # (Auto) 0.1 Eos # (Auto) 0.0 Baso # (Auto) 0.00 pCO2 pO2 HCO3 ABG pH ABG Total CO2 ABG O2 Saturation ABG Base Excess ABG Potassium Sodium 138 Chloride 107 Glucose Lactate FiO2 Potassium 4.3 Carbon Dioxide 25 Anion Gap 11 BUN 12 Creatinine 0.8 Est GFR ( Amer) > 60 Est GFR (Non-Af Amer) > 60 Random Glucose 250 H Calcium 7.1 L Total Bilirubin 0.7 ALT 472 H Alkaline Phosphatase 263 H Troponin I 0.12 D Total Protein 5.4 L Albumin 2.0 L Globulin 3.4 Albumin/Globulin Ratio 0.6 L Triglycerides Cholesterol LDL Cholesterol Direct HDL Cholesterol Arterial Blood Potassium Urine Opiates Screen Negative Urine Methadone Screen Positive H Ur Barbiturates Screen Negative Ur Phencyclidine Scrn Negative Ur Amphetamines Screen Negative U Benzodiazepines Scrn Negative U Oth Cocaine Metabols Negative U Cannabinoids Screen Negative Fingerstick Blood Sugar Results: 229 Critical Care Progress Note - Nutrition Nutrition: Nutrition Category Date Time Status Heart Healthy Diet [DIET] Diets 04/14/18 Breakfast Active Assessment/Plan - Assessment and Plan (Free Text) Plan: Ms Ruiz, 37 F with PMHx HIV (AIDS, CD4 < 20, february 2018), Hep C, Recent PCP PNA (? finished 21 days of mepron), smoker with COPD with neb at home, heroin user on methadone ([facility], AZALIA), Hx neck surgery, bactrim/PCN/Levofloxacin/ azithromycin allergy being admitted to the floor for constant sharp chest pain x 2 days. She was originally admitted to [facility] for CP r/o ACS but developed dry cough, SOB, hypotension, tachycardia overnight. She had low BP unresponsive to 1L fluid challenge. She was transferred to ICU for respiratory distress and shock management. She has only seen Dr. Chou once in outpatient setting. Echo (01/2018) LVEF 51%, RV dilated, RV systolic function moderate reduced, RVSP 45mmHg. CXR (04/14) Minimal interstital markings; minimal peribronchial thickening. CTA-chest has ruled out pulmonary embolus, but shows: (+) Diffuse bronchitis (+) Scattered groundglass air space opacities and air-trapping. Stable nodules in the superior segment of the left lower lobe. (+) Stable mediastinal lymphadenopathy with evidence of prior granulomas disease. A: Shock -- likely Cardiogenic, less likely septic - hypotension, tachycardia Due to R heart failure secondary to high pulm HTN (RVSP 45) likely chronic lung issue, COPD Pancytopenia with neutropenia Pneumonia - CAP vs PCP - in the setting of bronchitis Chest pain r/o ACS QTc 505 Transaminiita - Hep C vs drug induced AIDS, Hep C R/O TB Bactrim/PCN/Levofloxacin/azithromycin allergy Neuro - AAO x 3 - Pain control; cautious with methadone - Called [facility] left message re: methadone dose/schedule/last dose Pulm - Bipap --> high flow 75% at 50L - 10am ABG: pH 7.29 (7.27)/43/127 - Switch to 40L - SaO2 above 90 - Druoneb PRN - Solumedrol 30 Q12 - Tessalon Pearles 100 TID CV = Chest pain r/o acs; Cardiac vs. musculoskeletal; cardiogenic shock? - Stop Dobutamine gtt 5 - Swtich to levophed - EKG: Sinus Tachy @109bpm - Troponin 0.23 --> 0.22 --> 0.12 (likely type 2) - Lipid panel wnl. - Hemoglobin A1C, TSH - Echo ordered - Aspiring 81mg PO Daily GI - Protonix - Continue to trend AST/ALT - replete electrolyte PRN. U/O 400cc this am. hold fuentes HEME - Plt 42 - LE doppler to r/o DVT - neutropenic precation ID - AIDS/HepC Non compliant with medications possibly due to access - Pending HIV and Hep C Viral load - Primaquine PO (day 2), IV clindamycine (day 2) and doxycycline (day 1) - VBG lactate not elevated - AFP x 1; airboarn precaution - ARCELIA treatment because risk of infection is high when CD4<10. Continue toxo prophylaxis. Continue PCP PNA treatment Heme - H/H stable PPX - Heparin SC, Protonix s/r/d/w Dr. Oneill <Negrito Oneill - Last Filed: 04/14/18 12:11> CCU Objective - Vital Signs / Intake & Output Vital Signs (Last 4 hours): Vital Signs Resp 04/14/18 09:08 17 Intake and Output (Last 8hrs): Intake & Output 04/13/18 04/14/18 04/14/18 22:59 06:59 14:59 Intake Total 1532 Output Total 400 Balance 1132 Weight 112 lb Intake: IV 1532 0.9 400 Left Upper arm 1000 abx 100 dobutamine 32 Output: Urine 400 Urine, Voided 400 - Medications Active Medications: Active Medications Generic Name Dose Route Start Last Admin Trade Name Freq PRN Reason Stop Dose Admin Albuterol/Ipratropium 3 ml 04/14/18 10:42 Duoneb 3 Mg/0.5 Mg (3 Ml) Ud IH [id number] PRN Shortness of Breath Benzonatate 100 mg 04/14/18 10:00 04/14/18 09:10 Tessalon Perles PO 100 mg TID EDSON Administration Doxycycline Hyclate 100 mg 04/14/18 11:02 04/14/18 11:41 Doryx PO 04/23/18 11:03 100 mg Q12 EDSON Administration Protocol Enoxaparin Sodium 40 mg 04/14/18 10:00 04/14/18 09:09 Lovenox SC 40 mg DAILY EDSON Administration Protocol Clindamycin Phosphate 900 mg/ 106 mls @ 106 mls/hr 04/14/18 06:00 04/14/18 05 :18 Sodium Chloride IVPB 106 mls/hr Q8 EDSON Administration Protocol Sodium Chloride 1,000 mls @ 100 mls/hr 04/14/18 03:12 04/14/18 11:37 Sodium Chloride 0.9% IV 100 mls/hr .Q10H EDSON Administration Norepinephrine Bitartrate 8 mg 500 mls @ 15 mls/hr 04/14/18 11:33 04/14/18 11 :52 / Sodium Chloride IV 4 mcg/min .Q24H PRN 15 mls/hr TITRATE PER MD ORDER Administration Protocol 4 MCG/MIN Methylprednisolone 30 mg 04/14/18 10:00 04/14/18 09:10 Solu-Medrol IVP 30 mg Q12 EDSON Administration Mirtazapine 30 mg 04/14/18 22:00 Remeron PO HS EDSON Pantoprazole Sodium 40 mg 04/15/18 07:30 Protonix Ec Tab PO ACB EDSON Primaquine Phosphate 26.3 mg 04/14/18 10:00 04/14/18 09:14 Primaquine PO 26.3 mg DAILY EDSON Administration Protocol - Patient Studies Lab Studies: Lab Studies 04/14/18 04/14/18 04/14/18 Range/Units 10:31 08:30 05:50 WBC 1.3 L* D (4.5-11.0) 10^3/ul RBC 4.11 (3.5-6.1) 10^6/uL Hgb 11.0 L (12.0-16.0) g/dL Hct 35.5 L (36.0-48.0) % MCV 86.4 (80.0-105.0) fl MCH 26.8 (25.0-35.0) pg MCHC 31.0 (31.0-37.0) g/dl RDW 19.6 H (11.5-14.5) % Plt Count 42 L* (120.0-450.0) 10^3/uL Manual Plt Count 50 L (120-450) K/mm3 Gran % 73.7 H (50.0-68.0) % Lymph % (Auto) 17.8 L (22.0-35.0) % [place] % (Auto) 8.5 H (1.0-6.0) % Eos % (Auto) 0.0 L (1.5-5.0) % Baso % (Auto) 0.0 (0.0-3.0) % Gran # 0.95 L (1.4-6.5) Lymph # (Auto) 0.2 L (1.2-3.4) [place] # (Auto) 0.1 (0.1-0.6) Eos # (Auto) 0.0 (0.0-0.7) Baso # (Auto) 0.00 (0.0-2.0) K/mm3 pCO2 43 (35-45) mm/Hg pO2 127.0 H (80-100) mm/Hg HCO3 20.7 L (21-28) mmol/L ABG pH 7.29 L (7.35-7.45) ABG Total CO2 22.0 (22-28) mmol.L ABG O2 Saturation 99.8 H (95-98) % ABG Base Excess -5.7 L (-2.0-3.0) mmol/L ABG Potassium 4.1 (3.6-5.2) mmol/L Sodium 136.0 (132-148) mmol/L Chloride 111.0 H (98-107) mmol/L Glucose 287 H (65-105) mg/dl Lactate 1.4 (0.7-2.1) mmol/L FiO2 75.0 % Potassium (3.6-5.0) mmol/L Carbon Dioxide (21-33) mmol/L Anion Gap (10-20) BUN (7-21) mg/dL Creatinine (0.7-1.2) mg/dl Est GFR ( Amer) Est GFR (Non-Af Amer) Random Glucose (70-110) mg/dL Calcium (8.4-10.5) mg/dL Total Bilirubin (0.2-1.3) mg/dL AST (14-36) U/L ALT (7-56) U/L Alkaline Phosphatase (38-126) U/L Troponin I ng/mL Total Protein (5.8-8.3) g/dL Albumin (3.0-4.8) g/dL Globulin gm/dL Albumin/Globulin Ratio (1.1-1.8) Triglycerides (35-160) mg/dL Cholesterol (130-200) mg/dL LDL Cholesterol Direct (0-129) mg/dL HDL Cholesterol (29-60) mg/dL Arterial Blood Potassium 4.1 (3.6-5.2) mmol/L Urine Opiates Screen (NEGATIVE) Urine Methadone Screen (NEGATIVE) Ur Barbiturates Screen (NEGATIVE) Ur Phencyclidine Scrn (NEGATIVE) Ur Amphetamines Screen (NEGATIVE) U Benzodiazepines Scrn (NEGATIVE) U Oth Cocaine Metabols (NEGATIVE) U Cannabinoids Screen (NEGATIVE) 04/14/18 04/14/18 04/14/18 Range/Units 05:50 03:00 00:21 WBC (4.5-11.0) 10^3/ul RBC (3.5-6.1) 10^6/uL Hgb (12.0-16.0) g/dL Hct (36.0-48.0) % MCV (80.0-105.0) fl MCH (25.0-35.0) pg MCHC (31.0-37.0) g/dl RDW (11.5-14.5) % Plt Count (120.0-450.0) 10^3/uL Manual Plt Count (120-450) K/mm3 Gran % (50.0-68.0) % Lymph % (Auto) (22.0-35.0) % [place] % (Auto) (1.0-6.0) % Eos % (Auto) (1.5-5.0) % Baso % (Auto) (0.0-3.0) % Gran # (1.4-6.5) Lymph # (Auto) (1.2-3.4) [place] # (Auto) (0.1-0.6) Eos # (Auto) (0.0-0.7) Baso # (Auto) (0.0-2.0) K/mm3 pCO2 46 H (35-45) mm/Hg pO2 52.0 L (80-100) mm/Hg HCO3 21.1 (21-28) mmol/L ABG pH 7.27 L (7.35-7.45) ABG Total CO2 22.5 (22-28) mmol.L ABG O2 Saturation 87.4 L (95-98) % ABG Base Excess -5.9 L (-2.0-3.0) mmol/L ABG Potassium 3.5 L (3.6-5.2) mmol/L Sodium 138 136.0 (132-148) mmol/L Chloride 107 120.0 H (98-107) mmol/L Glucose 169 H (65-105) mg/dl Lactate 1.2 (0.7-2.1) mmol/L FiO2 40.0 % Potassium 4.3 (3.6-5.0) mmol/L Carbon Dioxide 25 (21-33) mmol/L Anion Gap 11 (10-20) BUN 12 (7-21) mg/dL Creatinine 0.8 (0.7-1.2) mg/dl Est GFR ( Amer) > 60 Est GFR (Non-Af Amer) > 60 Random Glucose 250 H (70-110) mg/dL Calcium 7.1 L (8.4-10.5) mg/dL Total Bilirubin 0.7 (0.2-1.3) mg/dL AST 2389 H (14-36) U/L ALT 472 H (7-56) U/L Alkaline Phosphatase 263 H (38-126) U/L Troponin I 0.12 D ng/mL Total Protein 5.4 L (5.8-8.3) g/dL Albumin 2.0 L (3.0-4.8) g/dL Globulin 3.4 gm/dL Albumin/Globulin Ratio 0.6 L (1.1-1.8) Triglycerides (35-160) mg/dL Cholesterol (130-200) mg/dL LDL Cholesterol Direct (0-129) mg/dL HDL Cholesterol (29-60) mg/dL Arterial Blood Potassium 3.5 L (3.6-5.2) mmol/L Urine Opiates Screen Negative (NEGATIVE) Urine Methadone Screen Positive H (NEGATIVE) Ur Barbiturates Screen Negative (NEGATIVE) Ur Phencyclidine Scrn Negative (NEGATIVE) Ur Amphetamines Screen Negative (NEGATIVE) U Benzodiazepines Scrn Negative (NEGATIVE) U Oth Cocaine Metabols Negative (NEGATIVE) U Cannabinoids Screen Negative (NEGATIVE) 04/13/18 04/13/18 Range/Units 23:06 23:06 WBC (4.5-11.0) 10^3/ul RBC (3.5-6.1) 10^6/uL Hgb (12.0-16.0) g/dL Hct (36.0-48.0) % MCV (80.0-105.0) fl MCH (25.0-35.0) pg MCHC (31.0-37.0) g/dl RDW (11.5-14.5) % Plt Count (120.0-450.0) 10^3/uL Manual Plt Count (120-450) K/mm3 Gran % (50.0-68.0) % Lymph % (Auto) (22.0-35.0) % [place] % (Auto) (1.0-6.0) % Eos % (Auto) (1.5-5.0) % Baso % (Auto) (0.0-3.0) % Gran # (1.4-6.5) Lymph # (Auto) (1.2-3.4) [place] # (Auto) (0.1-0.6) Eos # (Auto) (0.0-0.7) Baso # (Auto) (0.0-2.0) K/mm3 pCO2 (35-45) mm/Hg pO2 (80-100) mm/Hg HCO3 (21-28) mmol/L ABG pH (7.35-7.45) ABG Total CO2 (22-28) mmol.L ABG O2 Saturation (95-98) % ABG Base Excess (-2.0-3.0) mmol/L ABG Potassium (3.6-5.2) mmol/L Sodium (132-148) mmol/L Chloride (98-107) mmol/L Glucose (65-105) mg/dl Lactate (0.7-2.1) mmol/L FiO2 % Potassium (3.6-5.0) mmol/L Carbon Dioxide (21-33) mmol/L Anion Gap (10-20) BUN (7-21) mg/dL Creatinine (0.7-1.2) mg/dl Est GFR ( Amer) Est GFR (Non-Af Amer) Random Glucose (70-110) mg/dL Calcium (8.4-10.5) mg/dL Total Bilirubin (0.2-1.3) mg/dL AST (14-36) U/L ALT (7-56) U/L Alkaline Phosphatase (38-126) U/L Troponin I 0.22 H* ng/mL Total Protein (5.8-8.3) g/dL Albumin (3.0-4.8) g/dL Globulin gm/dL Albumin/Globulin Ratio (1.1-1.8) Triglycerides 141 (35-160) mg/dL Cholesterol 86 L (130-200) mg/dL LDL Cholesterol Direct 31 (0-129) mg/dL HDL Cholesterol 19 L (29-60) mg/dL Arterial Blood Potassium (3.6-5.2) mmol/L Urine Opiates Screen (NEGATIVE) Urine Methadone Screen (NEGATIVE) Ur Barbiturates Screen (NEGATIVE) Ur Phencyclidine Scrn (NEGATIVE) Ur Amphetamines Screen (NEGATIVE) U Benzodiazepines Scrn (NEGATIVE) U Oth Cocaine Metabols (NEGATIVE) U Cannabinoids Screen (NEGATIVE) Laboratory Results - last 24 hr 04/13/18 04/13/18 04/14/18 23:06 23:06 00:21 WBC RBC Hgb Hct MCV MCH MCHC RDW Plt Count Manual Plt Count Gran % Lymph % (Auto) [place] % (Auto) Eos % (Auto) Baso % (Auto) Gran # Lymph # (Auto) [place] # (Auto) Eos # (Auto) Baso # (Auto) pCO2 46 H pO2 52.0 L HCO3 21.1 ABG pH 7.27 L ABG Total CO2 22.5 ABG O2 Saturation 87.4 L ABG Base Excess -5.9 L ABG Potassium 3.5 L Sodium 136.0 Chloride 120.0 H Glucose 169 H Lactate 1.2 FiO2 40.0 Potassium Carbon Dioxide Anion Gap BUN Creatinine Est GFR ( Amer) Est GFR (Non-Af Amer) Random Glucose Calcium Total Bilirubin AST ALT Alkaline Phosphatase Troponin I 0.22 H* Total Protein Albumin Globulin Albumin/Globulin Ratio Triglycerides 141 Cholesterol 86 L LDL Cholesterol Direct 31 HDL Cholesterol 19 L Arterial Blood Potassium 3.5 L Urine Opiates Screen Urine Methadone Screen Ur Barbiturates Screen Ur Phencyclidine Scrn Ur Amphetamines Screen U Benzodiazepines Scrn U Oth Cocaine Metabols U Cannabinoids Screen 04/14/18 04/14/18 04/14/18 03:00 05:50 05:50 WBC 1.3 L* D RBC 4.11 Hgb 11.0 L Hct 35.5 L MCV 86.4 MCH 26.8 MCHC 31.0 RDW 19.6 H Plt Count 42 L* Manual Plt Count Gran % 73.7 H Lymph % (Auto) 17.8 L [place] % (Auto) 8.5 H Eos % (Auto) 0.0 L Baso % (Auto) 0.0 Gran # 0.95 L Lymph # (Auto) 0.2 L [place] # (Auto) 0.1 Eos # (Auto) 0.0 Baso # (Auto) 0.00 pCO2 pO2 HCO3 ABG pH ABG Total CO2 ABG O2 Saturation ABG Base Excess ABG Potassium Sodium 138 Chloride 107 Glucose Lactate FiO2 Potassium 4.3 Carbon Dioxide 25 Anion Gap 11 BUN 12 Creatinine 0.8 Est GFR ( Amer) > 60 Est GFR (Non-Af Amer) > 60 Random Glucose 250 H Calcium 7.1 L Total Bilirubin 0.7 AST 2389 H ALT 472 H Alkaline Phosphatase 263 H Troponin I 0.12 D Total Protein 5.4 L Albumin 2.0 L Globulin 3.4 Albumin/Globulin Ratio 0.6 L Triglycerides Cholesterol LDL Cholesterol Direct HDL Cholesterol Arterial Blood Potassium Urine Opiates Screen Negative Urine Methadone Screen Positive H Ur Barbiturates Screen Negative Ur Phencyclidine Scrn Negative Ur Amphetamines Screen Negative U Benzodiazepines Scrn Negative U Oth Cocaine Metabols Negative U Cannabinoids Screen Negative 04/14/18 04/14/18 08:30 10:31 WBC RBC Hgb Hct MCV MCH MCHC RDW Plt Count Manual Plt Count 50 L Gran % Lymph % (Auto) [place] % (Auto) Eos % (Auto) Baso % (Auto) Gran # Lymph # (Auto) [place] # (Auto) Eos # (Auto) Baso # (Auto) pCO2 43 pO2 127.0 H HCO3 20.7 L ABG pH 7.29 L ABG Total CO2 22.0 ABG O2 Saturation 99.8 H ABG Base Excess -5.7 L ABG Potassium 4.1 Sodium 136.0 Chloride 111.0 H Glucose 287 H Lactate 1.4 FiO2 75.0 Potassium Carbon Dioxide Anion Gap BUN Creatinine Est GFR ( Amer) Est GFR (Non-Af Amer) Random Glucose Calcium Total Bilirubin AST ALT Alkaline Phosphatase Troponin I Total Protein Albumin Globulin Albumin/Globulin Ratio Triglycerides Cholesterol LDL Cholesterol Direct HDL Cholesterol Arterial Blood Potassium 4.1 Urine Opiates Screen Urine Methadone Screen Ur Barbiturates Screen Ur Phencyclidine Scrn Ur Amphetamines Screen U Benzodiazepines Scrn U Oth Cocaine Metabols U Cannabinoids Screen Critical Care Progress Note - Nutrition Nutrition: Nutrition Category Date Time Status Heart Healthy Diet [DIET] Diets 04/14/18 Breakfast Active Attending/Attestation - Attestation I have personally seen and examined this patient.: Yes I have fully participated in the care of the patient.: Yes I have reviewed all pertinent clinical information: Yes Notes (Text): 04/14/18 12:06 The patient was seen and examined at the bedside. Patient care was discussed with resident Medical records, lab studies were reviewed and management issues were discussed and formulated. Last 24H events reviewed. Agree with above treatment plans as outlined in 's note with addition of the following: Acute Respiratory Failure \ COPD \Hypercapnea \ Hypoxemia \ Sepsis \ PNA \ HIV - AIDS \ NSTEMI \ Pancytopenia \ Elevated LFT -hemodynamic monitoring to maintain MAP>65; titrate levophed drip; trop elevation likely type 2 [place] secondary to respiratory failure -o2 supplementation to maintain Spo2 >90 Pao2>60; pt overnight on Bipap; we will switch to Hi-flow humidified O2 with 50LPM and 75%Fio2 -ABG in AM reviewed ; f\u repeat ABG -CXR reviewed -continue nebs and steroids and pulmonary toileting -continue broad spectrum Abx as per ID team and f\u cultures and AFB -f\u Bun\Cr and U\o; monitor and replace e-lites -PO diet and aspiration precautions -f\u serial LFT; consider GI eval -DVT \ PUD prophylaxis CCM time 32min
--- NOTE | 2018-04-14 08:21 | RAD ---
HISTORY: cough and chest pain, hx of copd COMPARISON: 03/11/2018 FINDINGS: LUNGS: There is mild peribronchial thickening. This has improved PLEURA: No significant pleural effusion identified, no pneumothorax apparent. CARDIOVASCULAR: Normal. OSSEOUS STRUCTURES: No significant abnormalities. VISUALIZED UPPER ABDOMEN: Normal. OTHER FINDINGS: None. IMPRESSION: Mild peribronchial thickening improved from prior study
--- NOTE | 2018-04-14 08:48 | CARD ---
APPROVED REPORT EKG Measurement Heart [id number] MA [id number] [id number] <Conclusion> Sinus tachycardia Rightward axis Nonspecific T wave abnormality Abnormal ECG
[2018-04-14] MEDS: Enoxaparin 40 mg Syringe SC SCH (09:09)
--- NOTE | 2018-04-14 09:09 | CP.PCM.PN ---
Subjective - Date & Time of Evaluation Date of Evaluation: 04/14/18 Time of Evaluation: 09:06 - Subjective Subjective: Patient seen and examined this AM. Overnight patient was admitted for chest pain r/o ACS with sunjective fever and chills. Patient developed hypotension, tachycardia and unresponsive to 1 L saline bolus. Patient was transferred to ICU for futher monitorring and placed on dobutamine drip. Patient complains of respiratory difficulties, chest discomfort and weakness. Objective - Vital Signs/Intake and Output Vital Signs (last 24 hours): Temp Pulse Resp BP Pulse Ox 97.5 F L 97 H 16 102/68 95 04/14/18 04:00 04/14/18 07:33 04/14/18 06:45 04/14/18 06:45 04/14/18 06:45 Intake and Output: 04/14/18 04/14/18 06:59 18:59 Intake Total 1532 Output Total 400 Balance 1132 - Medications Medications: Current Medications Benzonatate (Tessalon Perles) 100 mg PO TID EDSON Enoxaparin Sodium (Lovenox) 40 mg SC DAILY EDSON PRN Reason: Protocol Clindamycin Phosphate 900 mg/ (Sodium Chloride) 106 mls @ 106 mls/hr IVPB Q8 EDSON PRN Reason: Protocol Last Admin: 04/14/18 05:18 Dose: 106 mls/hr Dobutamine HCl/Dextrose (Dobutamine/Dextrose 5% 500mg/250ml) 500 mg in 250 mls @ 7.491 mls/hr IV .Q24H PRN; 5 MCG/KG/MIN PRN Reason: Systolic Blood Pressure Last Admin: 04/14/18 03:59 Dose: 7.491 mls/hr Sodium Chloride (Sodium Chloride 0.9%) 1,000 mls @ 100 mls/hr IV .Q10H EDSON Last Admin: 04/14/18 04:00 Dose: 100 mls/hr Methylprednisolone (Solu-Medrol) 30 mg IVP Q12 EDSON Mirtazapine (Remeron) 30 mg PO HS EDSON Pantoprazole Sodium (Protonix Inj) 40 mg IVP DAILY EDSON Primaquine Phosphate (Primaquine) 26.3 mg PO DAILY EDSON PRN Reason: Protocol - Labs Labs: 04/14/18 05:50 04/14/18 05:50 PT 11.0 SECONDS (9.4-12.5) 04/13/18 18:09 INR 0.97 (0.93-1.08) 04/13/18 18:09 - Constitutional Appears: Unkempt, Cachectic, Chronically Ill - Head Exam Head Exam: ATRAUMATIC, NORMAL INSPECTION, NORMOCEPHALIC - Eye Exam Eye Exam: EOMI, PERRL - ENT Exam ENT Exam: Mucous Membranes Dry - Respiratory Exam Respiratory Exam: Wheezes. absent: Chest Wall Tenderness, Clear to Ausculation Bilateral - Cardiovascular Exam Cardiovascular Exam: REGULAR RHYTHM, +S1, +S2 - GI/Abdominal Exam GI & Abdominal Exam: Soft, Normal Bowel Sounds. absent: Tenderness - Extremities Exam Extremities Exam: Full ROM. absent: Normal Capillary Refill, Pedal Edema - Neurological Exam Neurological Exam: Alert, Awake, Oriented x3 Additional comments: motor and sensory grossly intact - Psychiatric Exam Psychiatric exam: Anxious - Skin Skin Exam: Dry, Warm Assessment and Plan - Assessment and Plan (Free Text) Assessment: 37 year old female with past medical history HIV, AIDS last known CD4 count <20 hx of PCP, Hepatitis C, COPD, heroin user on methadone, who recently was treated for PCP by Dr. Chou for PCP. Patient was transferred from medical floor to ICU for hypotension and tachycardia with unresponisve BP to IVF challenge. Plan: 1. Septic vs cardiogenic shock - Hypotension, tachycardia, failed fluid challenge on floor - Patient with right sided heart failure secondary to higher pulm HTN(RSVP 45) as per echo from 01/2018 - Dobutamine gtt - Hx of PCP dx with low CD4 count, currently pancytopenic with PNA - CAP vs. PCP - Chest pain on admission, troponin trending downward, EKG showing sinus tachycardia - Echo pending - CMV Ab, DNA, Fungitell, mycoplasma, s. pneumo pending - Blood, urine cluture pending 2. Pneumonia in setting of AIDS with last known CD4 <20 - Likely PCP, previous dx and ?completed treatment - Allergry to Bactrim and PCN, levofloxacin - Primaquine Day 2 - Clindamycin Day 2 - Doxycycline Day 1 - Treating for ARCELIA and toxoplasmosis prophylasis, PCP tx - AFP x1 with airborne precautions 3. COPD - CXR showing right interstitial infiltrate, cephalization, hyperinflation - Chest CT: diffuse bronchitis, scattered ground glass air space opacities and air-trapping. Stable nodules in the superior segment of the left lower lobe. , stable mediastinal lymphadenopathy with evidence of prior granulomas disease. - IV solumedrol 30 BID - Duoneb prn - BiPAP at night - Hi Flow 50LPM, humidified air - Maintain SaO2 >90% 4. AIDS - Last known CD4 count <20, previous dx of PCP - Non-compliant with HAART therapy - Infectious disease consulted, follow up recs 5. Transaminitis - Etiology: Shock vs. drugs vs. medication - Previous history of Hepatitis C reactivity - Maintain MAP >65, IVF, hold hepatotoxic medicaitons GI/DVT ppx - Lovenox - protonix Dispo: Patient will follow up with Dr. Carter Case and plan discussed with attending
[2018-04-14] MEDS: MethylPREDNISolone 40 mg Vial IVP SCH ×2 (09:10→22:08)
[2018-04-14] MEDS: Primaquine 26.3 mg Tab PO SCH (09:14)
--- NOTE | 2018-04-14 10:20 | RAD ---
HISTORY: sob COMPARISON: 04/13/2018 FINDINGS: LUNGS: Minimal interstitial infiltrate. Minimal peribronchial thickening PLEURA: No significant pleural effusion identified, no pneumothorax apparent. CARDIOVASCULAR: Normal. OSSEOUS STRUCTURES: No significant abnormalities. VISUALIZED UPPER ABDOMEN: Normal. OTHER FINDINGS: None. IMPRESSION: Minimal interstitial infiltrate. Minimal peribronchial thickening
--- NOTE | 2018-04-14 10:31 | CT ---
PROCEDURE: CT Chest with contrast (Pulmonary Angiogram) HISTORY: POSSIBLE PE COMPARISON: None available. TECHNIQUE: Axial computed tomography images were obtained of the chest in the pulmonary arterial phase of enhancement. Coronal and sagittal reformatted images were created and reviewed. Intravenous contrast dose: 95 cc of Omni 350 Radiation dose: Total exam DLP = 189 mGy-cm. This CT exam was performed using one or more of the following dose reduction techniques: Automated exposure control, adjustment of the mA and/or kV according to patient size, and/or use of iterative reconstruction technique. FINDINGS: PULMONARY ARTERIES: Unremarkable. No pulmonary embolism. AORTA: No acute findings. No thoracic aortic aneurysm. LUNGS: Minimal interstitial changes are seen in both lungs. Small nodules are stable in size PLEURAL SPACES: Unremarkable. No effusion or pneuomothorax. HEART: Unremarkable. No cardiomegaly. There is a minimal pericardial effusion LYMPH NODES: Small calcified lymph nodes are seen in the right hilum and the mediastinum. BONES, CHEST WALL: Unremarkable. No fracture or destructive lesion OTHER FINDINGS: The report concurs with the preliminary [facility] report IMPRESSION: No evidence of pulmonary embolus. See comments
[2018-04-14 10:33] LABS: AST/SGOT 2389 U/L (14-36)
[2018-04-14 10:36] LABS: ARTERIAL BLOOD GAS HCO3 20.7 mmol/L (21-28); ARTERIAL BLOOD GAS O2 SAT 99.8 % (95-98); ARTERIAL BLOOD GAS PCO2 43 mm/Hg (35-45); ARTERIAL BLOOD GAS PH 7.29 (7.35-7.45)
--- NOTE | 2018-04-14 17:03 | CARD ---
APPROVED REPORT EXAM: Two-dimensional and M-mode echocardiogram with Doppler and color Doppler. INDICATION NEW ONSET CP,R/O ACS 2D DIMENSIONS IVSd0.8 (0.7-1.1cm)LVDd4.7 (3.9-5.9cm) PWd0.9 (0.7-1.1cm)LVDs3.9 (2.5-4.0cm) FS (%) 16.5 %LVEF (%)34.5 (>50%) M-Mode DIMENSIONS Aortic Root3.20 (2.2-3.7cm)Aortic Cusp Exc.1.60 (1.5-2.0cm) Aortic Valve AoV Peak Tuibzkje709.0cm/Ita Peak GR.5mmHg Mitral Valve MV E Husmszpt48.7cm/sMV A Gonlkzkn41.8cm/sE/A ratio1.2 TDI Lateral E' Peak V10.40cm/sMedial E' Peak V7.31cm/sE/Lateral E'6.0 E/Medial E'8.6 Pulmonary Valve PV Peak Rjjjlwac98.7cm/sPV Peak Grad.1mmHg Tricuspid Valve TR Peak Gialmyql438nm/sRAP [id number] Peak Gr.30mmHg LAIL37jaSd LEFT VENTRICLE The left ventricle is normal size. There is normal left ventricular wall thickness. The systolic function is moderately impaired.EF-35% There is moderate global hypokinesis of the left ventricle. The left ventricular diastolic function is normal. No left ventricle thrombus noted on this study. There is no ventricular septal defect visualized. There is no left ventricular aneurysm. There is no mass noted in the left ventricle. RIGHT VENTRICLE The right ventricle is mildly dilated. There is normal right ventricular wall thickness. Systolic function is mildly reduced. ATRIA The left atrium is mildly dilated. The right atrium size is normal. The interatrial septum is intact with no evidence for an atrial septal defect. AORTIC VALVE The aortic valve is normal in structure. There is trace aortic regurgitation. There is no aortic valvular stenosis. There is no aortic valvular vegetation. MITRAL VALVE The mitral valve is thickened but opens well. Mitral regurgitation is trace. There is no mitral valve stenosis. There is no evidence of mitral valve prolapse. TRICUSPID VALVE The tricuspid valve leaflets are thickened , but open well. There is mild tricuspid regurgitation.RVSP-40 mmof hg. There is no tricuspid valve stenosis. There is no tricuspid valve prolapse or vegetation. PULMONIC VALVE The pulmonary valve is normal in structure. There is no pulmonic valvular regurgitation. There is no pulmonic valvular stenosis. GREAT VESSELS The aortic root is normal in size. The ascending aorta is normal in size. The pulmonary artery is normal. The IVC is normal in size and collapses >50% with inspiration. PERICARDIAL EFFUSION There is no pleural effusion. There is a trace pericardial effusion. <Conclusion> The left ventricle is normal size. There is normal left ventricular wall thickness. The systolic function is moderately impaired.EF-35% There is trace aortic regurgitation. Mitral regurgitation is trace. There is mild tricuspid regurgitation.RVSP-40 mmof hg. There is a trace pericardial effusion. The IVC is normal in size and collapses >50% with inspiration. No vegetation or thrtombus noted.
--- NOTE | 2018-04-15 05:30 | CON ---
DATE: ISTORY OF PRESENT ILLNESS: The patient is a 37-year-old female who is HIV positive, advanced full-blown AIDS, noncompliant with medications, who presents because of persistent sharp chest pain for 2 days prior to admission. The patient was recently discharged from the hospital after she was treated for pneumonia, presumably PCP pneumonia. The patient denies any prior cardiac history; however, a recent echocardiographic study revealed borderline ejection fraction with dilated and hypokinetic right ventricle. SOCIAL HISTORY: Patient is a smoker. She smokes electronic cigarette. MEDICATIONS: Include clindamycin 900 mg intravenous every 8 hours, doxycycline 100 mg p.o. twice a day, albuterol inhaler every 6 hours, Lovenox 40 mg subcutaneous twice a day, methadone 70 mg once a day, Levophed infusion, primaquine 26.3 mg p.o. daily, Protonix 40 mg p.o. once a day, Remeron 30 mg at bedtime, Solu-Medrol every 12 hours, normal saline at 100 mL an hour. PHYSICAL EXAMINATION GENERAL: The patient is a middle-aged female who is short of breath who was earlier on BiPAP and now on high-flow nasal O2. VITAL SIGNS: Blood pressure 105/73, heart rate 78, respiration 13, temperature 97.8. HEENT: Normocephalic. CHEST: Bilateral rhonchi. HEART: S1 and S2 regular. ABDOMEN: Soft. EXTREMITIES: No edema. LABORATORY DATA: SMA-7, sodium 138, potassium 4.3, chloride 107, CO2 of 25, glucose 250, BUN 12, creatinine 0.8. AST is 2389, ALT is 472, alkaline phosphatase 263. Troponin 0.22. D-dimer is 501. Hemoglobin and hematocrit are 11 and 35.5, white count 1.3, platelet count 42,000. Urine drug screen is positive for methadone, which the patient was taking. EKG revealed sinus tachycardia at the rate of 112, rightward axis, nonspecific T wave changes. Chest CT angio, no pulmonary embolism. Minimal interstitial changes are seen in both lungs. Small nodules are in stable size. No pleural effusion or pneumothorax. My own review of the repeat bedside echocardiographic study performed today revealed dilated hypokinetic right ventricle with mildly to moderate depressed left ventricular ejection fraction, which is a new finding compared to the earlier borderline ejection fraction. ASSESSMENT: 1. Borderline troponin elevation, unlikely secondary to myocardial injury; however, depressed left ventricular as well as right ventricular systolic function, especially acute left ventricular systolic dysfunction can be the contributing factor. 2. 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 3. Leukopenia and thrombocytopenia. 4. Significantly elevated liver enzymes. RECOMMENDATIONS: Case was discussed with the medical team. The patient was started on Levophed instead of . May discontinue Lovenox if thrombocytopenia continues to worsen. Continue current IV clindamycin, oral doxycycline and IV Solu-Medrol. Conservative medical management is recommended. Case was discussed with Infectious Disease specialist. The patient has a grave prognosis, and no invasive cardiac workup is justified at this time. I will follow venous Doppler of lower extremity results. Duncan Dodson MD
[2018-04-15] MEDS: Pantoprazole 40 mg EC Tab PO SCH (05:43)
[2018-04-15 06:55] LABS: GRAN # 11.21 (1.4-6.5); GRAN % 91.1 % (50.0-68.0); LYMPH # 0.5 (1.2-3.4); LYMPH % 4.2 % (22.0-35.0); MEAN CELL VOLUME 84.5 fl (80.0-105.0); MEAN CORPUSCULAR HEMOGLOBIN 26.7 pg (25.0-35.0); MEAN CORPUSCULAR HGB CONC 31.6 g/dl (31.0-37.0); MONO # 0.6 (0.1-0.6); MONO % 4.7 % (1.0-6.0); PLATELET COUNT 68 10^3/uL (120.0-450.0); RBC 4.12 10^6/uL (3.5-6.1); RED CELL DISTRIBUTION WIDTH 19.4 % (11.5-14.5); WHITE BLOOD COUNT 12.3 10^3/ul (4.5-11.0)
--- NOTE | 2018-04-15 07:03 | CON ---
LOCATION: The patient is in bed, in no acute distress. The patient seen in the ICU, 129. CHIEF COMPLAINT: Shortness of breath and which had progressively gotten worse past several days. 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 She has not been compliant to any of her medication. She has been noncompliant for years and she has seen psychiatric care. She was diagnosed on last admission with PCP and treated accordingly. However, she was discharged with medication that she was not compliant with. REVIEW OF SYSTEMS: Reveals low-grade fevers. There is cough nonproductive. There is shortness of breath, worse on exertion. PAST MEDICAL HISTORY: Significant for end-stage AIDS, anxiety, depression, chronic obstructive lung disease, chronic back pain, hepatitis C, arthritis, asthma, intravenous drug abuser. PAST SURGICAL HISTORY: Noncontributory. ALLERGIES: THE PATIENT IS ALLERGIC TO ZITHROMAX, PENICILLIN AND LEVOFLOXACIN . SHE DEVELOPS A RASH, NOT A TRUE ALLERGY. MEDICATIONS: She is supposed to be on Mepron, but she was not taking it and her HIV with Biktarvy and she was not taking that. PHYSICAL EXAMINATION: GENERAL: She is in bed, appearing end stage chronically ill, cachectic, wasting syndrome. VITAL SIGNS: Temperature of 98; heart rate of 97, was up to 110; respiratory rate of 24, it was up to 26; and the patient's blood pressure is 102/60 and it was down to 86/50, actually down to 71 systolic; O2 saturation was 79%. HEENT: There is oral thrush. NECK: Supple. LUNGS: Decreased breath sounds. HEART: Normal S1 and S2. ABDOMEN: Soft, nontender. No rebound or guarding. LABORATORY EXAMINATION: Reveals a white count of 2.6, hemoglobin of 12, platelets of 42, and 66% granulocytosis. Coagulation is noted. The patient's D-dimer is elevated at 501. Blood gases are noted and the patient has an LDH of over 2000. Troponin is elevated. LFTs are elevated. Creatinine is 0.9. The patient did have an elevated creatinine in the past of 2 only two months ago. Urinalysis reveals proteinuria and moderate bilirubin. There is methadone in the toxicology screen. The patient's imaging shows chest x-ray with mild peribronchial thickening. Chest x-ray was reviewed with Dr. Negrito Palacios, the remanufacturing technician, and interstitial pattern is present. The patient also had a CAT scan of the chest that was read by Dr. Scott with no evidence of pulmonary emboli. There are minimal interstitial changes in both lungs, some nodules are stable in size. Another chest x-ray this morning, interstitial infiltrates again are seen. ASSESSMENT AND PLAN: A 37-year-old female with end-stage acute immunodeficiency syndrome with anxiety, depression, chronic obstructive lung disease, chronic back pain, hepatitis C, hypoxia, infiltrates. 1. 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 We will treat the patient with clindamycin and primaquine. The patient is also on Solu-Medrol. We will order urine for Legionella antigen PCR, procalcitonin. We will add doxycycline for atypical coverage. Overall prognosis is quite poor for this patient who probably has Pneumocystis carinii pneumonia with end-stage acute immunodeficiency syndrome and I doubt tuberculosis. We will do a tuberculosis workup presenting with interstitial lung disease. Order AFB smears and we will make further recommendations. Cheikh Chou MD
[2018-04-15 07:25] LABS: ALB/GLOB RATIO 0.6 (1.1-1.8); ALBUMIN 1.8 g/dL (3.0-4.8); ALT/SGPT 343 U/L (7-56); BLOOD UREA NITROGEN 19 mg/dL (7-21); CALCIUM 7.2 mg/dL (8.4-10.5); GFR AFRICAN-AMERICAN > 60; GFR NON-AFRICAN AMERICAN > 60
[2018-04-15] MEDS: Albuterol-Ipratrop 3 mg / 0.5 (3 ml) UD IH PRN (07:25)
[2018-04-15 07:27] LABS: AST/SGOT 1420 U/L (14-36)
[2018-04-15 07:51] LABS: ARTERIAL BLOOD GAS HCO3 23.2 mmol/L (21-28); ARTERIAL BLOOD GAS O2 SAT 98.8 % (95-98); ARTERIAL BLOOD GAS PCO2 45 mm/Hg (35-45); ARTERIAL BLOOD GAS PH 7.32 (7.35-7.45); ARTERIAL BLOOD GAS TCO2 24.6 mmol.L (22-28)
--- NOTE | 2018-04-15 08:40 | RAD ---
HISTORY: compare COMPARISON: 04/14/2018 FINDINGS: LUNGS: There is a minimal interstitial infiltrate in the right upper lobe. PLEURA: No significant pleural effusion identified, no pneumothorax apparent. CARDIOVASCULAR: Normal. OSSEOUS STRUCTURES: No significant abnormalities. VISUALIZED UPPER ABDOMEN: Normal. OTHER FINDINGS: None. IMPRESSION: Minimal interstitial infiltrate in the right upper lobe
--- NOTE | 2018-04-15 08:50 | CP.PCM.PN ---
Subjective - Date & Time of Evaluation Date of Evaluation: 04/15/18 (q) Time of Evaluation: 08:47 - Subjective Subjective: Patient seen and examined this AM. PICC line placed yesterday, echocardiogram, bl LE dopplers done. Patient reports continued respiratory difficulties while on high flow O2. Complains of weakness, back pain. Denies chest pain, abdominal pain, fevers, chills, productive cough. Patient family to join her at bedside later in the day. Objective - Vital Signs/Intake and Output Vital Signs (last 24 hours): Temp Pulse Resp BP Pulse Ox 97.2 F L 75 13 102/67 97 04/14/18 16:00 04/15/18 07:29 04/15/18 07:29 04/15/18 07:30 04/15/18 07:29 Intake and Output: 04/15/18 04/15/18 06:59 18:59 Intake Total 1830 Output Total 1100 Balance 730 - Medications Medications: Current Medications Albuterol/Ipratropium (Duoneb 3 Mg/0.5 Mg (3 Ml) Ud) 3 ml IH [id number] PRN PRN Reason: Shortness of Breath Last Admin: 04/15/18 07:25 Dose: 3 ml Benzonatate (Tessalon Perles) 100 mg PO TID EDSON Last Admin: 04/14/18 18:13 Dose: 100 mg Doxycycline Hyclate (Doryx) 100 mg PO Q12 EDSON PRN Reason: Protocol Stop: 04/23/18 11:03 Last Admin: 04/14/18 22:08 Dose: 100 mg Enoxaparin Sodium (Lovenox) 40 mg SC DAILY EDSON PRN Reason: Protocol Last Admin: 04/14/18 09:09 Dose: 40 mg Clindamycin Phosphate 900 mg/ (Sodium Chloride) 106 mls @ 106 mls/hr IVPB Q8 EDSON PRN Reason: Protocol Last Admin: 04/15/18 05:44 Dose: 106 mls/hr Sodium Chloride (Sodium Chloride 0.9%) 1,000 mls @ 100 mls/hr IV .Q10H EDSON Last Admin: 04/14/18 22:11 Dose: 100 mls/hr Norepinephrine Bitartrate 8 mg (/ Sodium Chloride) 500 mls @ 15 mls/hr IV .Q24H PRN; Protocol; 4 MCG/MIN PRN Reason: TITRATE PER MD ORDER Last Admin: 04/14/18 11:52 Dose: 4 mcg/min, 15 mls/hr Methadone HCl (Methadone) 70 mg PO DAILY [facility] Last Admin: 04/14/18 18:13 Dose: 70 mg Methylprednisolone (Solu-Medrol) 30 mg IVP Q12 [facility] Last Admin: 04/14/18 22:08 Dose: 30 mg Mirtazapine (Remeron) 30 mg PO HS [facility] Last Admin: 04/14/18 22:08 Dose: 30 mg Pantoprazole Sodium (Protonix Ec Tab) 40 mg PO 0600 [facility] Last Admin: 04/15/18 05:43 Dose: 40 mg Primaquine Phosphate (Primaquine) 26.3 mg PO DAILY EDSON PRN Reason: Protocol Last Admin: 04/14/18 09:14 Dose: 26.3 mg - Labs Labs: 04/15/18 06:40 04/15/18 06:40 PT 11.0 SECONDS (9.4-12.5) 04/13/18 18:09 INR 0.97 (0.93-1.08) 04/13/18 18:09 - Constitutional Appears: Unkempt, Older Than Stated Age, Chronically Ill - Head Exam Head Exam: ATRAUMATIC, NORMAL INSPECTION, NORMOCEPHALIC - Eye Exam Eye Exam: EOMI - Respiratory Exam Respiratory Exam: Decreased Breath Sounds, Rhonchi (right sided, upper lung). absent: Wheezes, Stridor - Cardiovascular Exam Cardiovascular Exam: REGULAR RHYTHM, +S1, +S2 - GI/Abdominal Exam GI & Abdominal Exam: Soft, Normal Bowel Sounds. absent: Rigid, Tenderness - Extremities Exam Extremities Exam: Full ROM. absent: Calf Tenderness, Tenderness - Neurological Exam Neurological Exam: Awake, Oriented x3 Neuro motor strength exam: Left Upper Extremity: 5, Right Upper Extremity: 5, Left Lower Extremity: 5, Right Lower Extremity: 5 Additional comments: Sluggish in answering questions, motor and sensory grossly intact - Psychiatric Exam Psychiatric exam: Depressed, Flat Affect - Skin Skin Exam: Dry, Intact Assessment and Plan - Assessment and Plan (Free Text) Assessment: 37 year old female with past medical history HIV, AIDS last known CD4 count <20 hx of PCP, Hepatitis C, COPD, heroin user on methadone, who recently was treated for PCP by Dr. Chou for PCP. Patient monitored in ICU for hypotension and tachycardia. Patient currently with levophed drip for hypotension. Patient on high flow O2 for maintenance of appropriate SaO2. Plan: 1. Septic vs cardiogenic shock - Hypotension, tachycardia, failed fluid challenge on floor - Patient with right sided heart failure secondary to higher pulm HTN(RSVP 45) as per echo from 01/2018 - Levophed gtt - Hx of PCP dx with low CD4 count, currently pancytopenic with PNA - CAP vs. PCP - Chest pain on admission, troponin trending downward, EKG showing sinus tachycardia - Echo: LVEF 34.5%, LV normal size - CMV Ab, DNA, Fungitell, mycoplasma, s. pneumo pending - Blood, urine cluture pending 2. Pneumonia in setting of AIDS with last known CD4 <20 - Likely PCP, previous dx and ?completed treatment - Allergry to Bactrim and PCN, levofloxacin - Primaquine Day 3 - Clindamycin Day - Doxycycline Day 2 - Treating for ARCELIA and toxoplasmosis prophylasis, PCP tx - AFP x1 with airborne precautions - Urine L. pneumophila Ag negative 3. COPD - CXR showing right interstitial infiltrate, cephalization, hyperinflation - Chest CT: diffuse bronchitis, scattered ground glass air space opacities and air-trapping. Stable nodules in the superior segment of the left lower lobe. , stable mediastinal lymphadenopathy with evidence of prior granulomas disease. - IV solumedrol 30 BID - Duoneb prn - BiPAP at night - Hi Flow 50LPM, humidified air - Maintain SaO2 >90% 4. AIDS - Last known CD4 count <20, previous dx of PCP - Non-compliant with HAART therapy - Infectious disease consulted, follow up recs 5. Transaminitis - Etiology: Shock vs. drugs vs. medication - Previous history of Hepatitis C reactivity - Maintain MAP >65, IVF, hold hepatotoxic medicaitons - improved today from admission, continue to monitor GI/DVT ppx - Lovenox, continue to watch thrombocytopenia - protonix Dispo: Patient will follow up with Dr. Carter Case and plan discussed with attending
[2018-04-15 09:42] LABS: BAND 4 % (0-2); LYMPHOCYTE 2 % (22.0-35.0); NEUTROPHIL 94 % (50.0-70.0)
[2018-04-15 09:43] LABS: PLATELET ESTIMATE LOW (NORMAL); POIKILOCYTOSIS SLIGHT
[2018-04-15 09:44] LABS: ANISOCYTOSIS 1+; OVALOCYTES 1+
[2018-04-15] MEDS: Enoxaparin 40 mg Syringe SC SCH (09:51)
[2018-04-15] MEDS: MethylPREDNISolone 40 mg Vial IVP SCH ×2 (09:51→21:33)
[2018-04-15] MEDS: Sodium Chloride 0.9% 1,000 ML IV SCH ×2 (09:52→23:00)
[2018-04-15] MEDS: Primaquine 26.3 mg Tab PO SCH (09:55)
--- NOTE | 2018-04-15 10:40 | CP.CCUPN ---
<Vinicius Roth - Last Filed: 04/15/18 11:09> CCU Subjective - Physician Review Events Since Last Encounter (Free Text): 04/15/18 08:00A Patient seen and examined at bedside. No acute events overnight. Patient states that she feels better since admission. Methadone dose was confirmed ast 150 daily, patient is currently on half dose with no complaints. CCU Objective - Vital Signs / Intake & Output Vital Signs (Last 4 hours): Vital Signs Pulse Resp BP Pulse Ox 04/15/18 07:30 102/67 04/15/18 07:29 75 13 97 04/15/18 07:15 76 12 106/62 99 04/15/18 07:00 73 14 97/74 L 98 04/15/18 06:45 73 14 96/72 L 98 Intake and Output (Last 8hrs): Intake & Output 04/14/18 04/15/18 04/15/18 22:59 06:59 14:59 Intake Total 1896 1830 Output Total 850 1100 Balance 1046 730 Intake: IV 1416 1580 0.9 1200 1200 abx 100 200 dobutamine 28 levophed 88 180 Oral 480 250 Output: Urine 850 1100 Urine, Voided 850 1100 Other: # Voids Urine, Voided 2 # Bowel Movements 0 - Physical Exam Head: Positive for: Atraumatic, Normocephalic Pupils: Positive for: PERRL Extroacular Muscles: Positive for: EOMI Conjunctiva: Positive for: Normal Mouth: Positive for: Moist Mucous Membranes Neck: Positive for: Normal Range of Motion Respiratory/Chest: Positive for: Wheezes (Diffuse musical wheezes), Tender to Palpation (Chest wall tenderness). Negative for: Clear to Auscultation, Respiratory Distress, Accessory Muscle Use Cardiovascular: Positive for: Regular Rate and Rhythm, Normal S1, S2. Negative for: Murmurs Abdomen: Negative for: Tenderness, Distention, Peritoneal Signs Back: Positive for: Normal Inspection Upper Extremity: Positive for: Normal Inspection. Negative for: Cyanosis, Edema Lower Extremity: Positive for: Swelling (Dorsum left foot swelling) Neurological: Positive for: GCS=15, CN II-XII Intact, Speech Normal Skin: Positive for: Warm, Dry, Normal Color. Negative for: Rashes Psychiatric: Positive for: Alert, Oriented x 3, Normal Insight, Normal Concentration - Medications Active Medications: Active Medications Generic Name Dose Route Start Last Admin Trade Name Freq PRN Reason Stop Dose Admin Albuterol/Ipratropium 3 ml 04/14/18 10:42 04/15/18 07:25 Duoneb 3 Mg/0.5 Mg (3 Ml) Ud IH 3 ml [id number] PRN Administration Shortness of Breath Benzonatate 100 mg 04/14/18 10:00 04/15/18 09:50 Tessalon Perles PO 100 mg TID EDSON Administration Doxycycline Hyclate 100 mg 04/14/18 11:02 04/15/18 09:50 Doryx PO 04/23/18 11:03 100 mg Q12 EDSON Administration Protocol Enoxaparin Sodium 40 mg 04/14/18 10:00 04/15/18 09:51 Lovenox SC 40 mg DAILY EDSON Administration Protocol Clindamycin Phosphate 900 mg/ 106 mls @ 106 mls/hr 04/14/18 06:00 04/15/18 05 :44 Sodium Chloride IVPB 106 mls/hr Q8 EDSON Administration Protocol Sodium Chloride 1,000 mls @ 100 mls/hr 04/14/18 03:12 04/15/18 09:52 Sodium Chloride 0.9% IV 100 mls/hr .Q10H EDSON Administration Norepinephrine Bitartrate 8 mg 500 mls @ 15 mls/hr 04/14/18 11:33 04/14/18 11 :52 / Sodium Chloride IV 4 mcg/min .Q24H PRN 15 mls/hr TITRATE PER MD ORDER Administration Protocol 4 MCG/MIN Methadone HCl 70 mg 04/14/18 17:15 04/15/18 09:55 Methadone PO 70 mg DAILY EDSON Administration Methylprednisolone 30 mg 04/14/18 10:00 04/15/18 09:51 Solu-Medrol IVP 30 mg Q12 EDSON Administration Mirtazapine 30 mg 04/14/18 22:00 04/14/18 22:08 Remeron PO 30 mg HS EDSON Administration Pantoprazole Sodium 40 mg 04/15/18 06:00 04/15/18 05:43 Protonix Ec Tab PO 40 mg 0600 EDSON Administration Primaquine Phosphate 26.3 mg 04/14/18 10:00 04/15/18 09:55 Primaquine PO 26.3 mg DAILY EDSON Administration Protocol - Patient Studies Lab Studies: Lab Studies 04/15/18 04/15/18 04/15/18 Range/Units 07:46 06:40 06:40 WBC 12.3 H D (4.5-11.0) 10^3/ul RBC 4.12 (3.5-6.1) 10^6/uL Hgb 11.0 L (12.0-16.0) g/dL Hct 34.8 L (36.0-48.0) % MCV 84.5 (80.0-105.0) fl MCH 26.7 (25.0-35.0) pg MCHC 31.6 (31.0-37.0) g/dl RDW 19.4 H (11.5-14.5) % Plt Count 68 L (120.0-450.0) 10^3/uL Gran % 91.1 H (50.0-68.0) % Lymph % (Auto) 4.2 L (22.0-35.0) % Wilcox % (Auto) 4.7 (1.0-6.0) % Eos % (Auto) 0.0 L (1.5-5.0) % Baso % (Auto) 0.0 (0.0-3.0) % Gran # 11.21 H (1.4-6.5) Lymph # (Auto) 0.5 L (1.2-3.4) Wilcox # (Auto) 0.6 (0.1-0.6) Eos # (Auto) 0.0 (0.0-0.7) Baso # (Auto) 0.00 (0.0-2.0) K/mm3 Neutrophils % (Manual) 94 H (50.0-70.0) % Band Neutrophils % 4 H (0-2) % Lymphocytes % (Manual) 2 L (22.0-35.0) % Monocytes % (Manual) TEST NOT PERFORMED Platelet Evaluation Low (NORMAL) Poikilocytosis (manual Slight Anisocytosis (manual) 1+ Ovalocytes 1+ pCO2 45 (35-45) mm/Hg pO2 106.0 H (80-100) mm/Hg HCO3 23.2 (21-28) mmol/L ABG pH 7.32 L (7.35-7.45) ABG Total CO2 24.6 (22-28) mmol.L ABG O2 Saturation 98.8 H (95-98) % ABG Base Excess -3.1 L (-2.0-3.0) mmol/L ABG Potassium 4.0 (3.6-5.2) mmol/L Sodium 139.0 140 (132-148) mmol/L Chloride 114.0 H 111 H (98-107) mmol/L Glucose 111 H (65-105) mg/dl Lactate 0.5 L (0.7-2.1) mmol/L FiO2 60.0 % Potassium 4.4 (3.6-5.0) mmol/L Carbon Dioxide 27 (21-33) mmol/L Anion Gap 7 L (10-20) BUN 19 (7-21) mg/dL Creatinine 0.9 (0.7-1.2) mg/dl Est GFR ( Amer) > 60 Est GFR (Non-Af Amer) > 60 Random Glucose 104 (70-110) mg/dL Calcium 7.2 L (8.4-10.5) mg/dL Total Bilirubin 0.2 (0.2-1.3) mg/dL AST 1420 H (14-36) U/L ALT 343 H (7-56) U/L Alkaline Phosphatase 232 H (38-126) U/L Troponin I ng/mL Total Protein 5.1 L (5.8-8.3) g/dL Albumin 1.8 L (3.0-4.8) g/dL Globulin 3.3 gm/dL Albumin/Globulin Ratio 0.6 L (1.1-1.8) Procalcitonin (0.19-0.49) NG/ML Arterial Blood Potassium 4.0 (3.6-5.2) mmol/L CMV IgG Ab U/mL Ur L.pneumophila Ag (NEGATIVE) 04/14/18 04/14/18 04/14/18 Range/Units 12:35 11:02 10:31 WBC (4.5-11.0) 10^3/ul RBC (3.5-6.1) 10^6/uL Hgb (12.0-16.0) g/dL Hct (36.0-48.0) % MCV (80.0-105.0) fl MCH (25.0-35.0) pg MCHC (31.0-37.0) g/dl RDW (11.5-14.5) % Plt Count (120.0-450.0) 10^3/uL Gran % (50.0-68.0) % Lymph % (Auto) (22.0-35.0) % Wilcox % (Auto) (1.0-6.0) % Eos % (Auto) (1.5-5.0) % Baso % (Auto) (0.0-3.0) % Gran # (1.4-6.5) Lymph # (Auto) (1.2-3.4) Wilcox # (Auto) (0.1-0.6) Eos # (Auto) (0.0-0.7) Baso # (Auto) (0.0-2.0) K/mm3 Neutrophils % (Manual) (50.0-70.0) % Band Neutrophils % (0-2) % Lymphocytes % (Manual) (22.0-35.0) % Monocytes % (Manual) Platelet Evaluation (NORMAL) Poikilocytosis (manual Anisocytosis (manual) Ovalocytes pCO2 43 (35-45) mm/Hg pO2 127.0 H (80-100) mm/Hg HCO3 20.7 L (21-28) mmol/L ABG pH 7.29 L (7.35-7.45) ABG Total CO2 22.0 (22-28) mmol.L ABG O2 Saturation 99.8 H (95-98) % ABG Base Excess -5.7 L (-2.0-3.0) mmol/L ABG Potassium 4.1 (3.6-5.2) mmol/L Sodium 136.0 (132-148) mmol/L Chloride 111.0 H (98-107) mmol/L Glucose 287 H (65-105) mg/dl Lactate 1.4 (0.7-2.1) mmol/L FiO2 75.0 % Potassium (3.6-5.0) mmol/L Carbon Dioxide (21-33) mmol/L Anion Gap (10-20) BUN (7-21) mg/dL Creatinine (0.7-1.2) mg/dl Est GFR ( Amer) Est GFR (Non-Af Amer) Random Glucose (70-110) mg/dL Calcium (8.4-10.5) mg/dL Total Bilirubin (0.2-1.3) mg/dL AST (14-36) U/L ALT (7-56) U/L Alkaline Phosphatase (38-126) U/L Troponin I 0.09 D ng/mL Total Protein (5.8-8.3) g/dL Albumin (3.0-4.8) g/dL Globulin gm/dL Albumin/Globulin Ratio (1.1-1.8) Procalcitonin 0.31 (0.19-0.49) NG/ML Arterial Blood Potassium 4.1 (3.6-5.2) mmol/L CMV IgG Ab U/mL Ur L.pneumophila Ag (NEGATIVE) 04/14/18 04/14/18 Range/Units 05:50 03:00 WBC (4.5-11.0) 10^3/ul RBC (3.5-6.1) 10^6/uL Hgb (12.0-16.0) g/dL Hct (36.0-48.0) % MCV (80.0-105.0) fl MCH (25.0-35.0) pg MCHC (31.0-37.0) g/dl RDW (11.5-14.5) % Plt Count (120.0-450.0) 10^3/uL Gran % (50.0-68.0) % Lymph % (Auto) (22.0-35.0) % Wilcox % (Auto) (1.0-6.0) % Eos % (Auto) (1.5-5.0) % Baso % (Auto) (0.0-3.0) % Gran # (1.4-6.5) Lymph # (Auto) (1.2-3.4) Wilcox # (Auto) (0.1-0.6) Eos # (Auto) (0.0-0.7) Baso # (Auto) (0.0-2.0) K/mm3 Neutrophils % (Manual) (50.0-70.0) % Band Neutrophils % (0-2) % Lymphocytes % (Manual) (22.0-35.0) % Monocytes % (Manual) Platelet Evaluation (NORMAL) Poikilocytosis (manual Anisocytosis (manual) Ovalocytes pCO2 (35-45) mm/Hg pO2 (80-100) mm/Hg HCO3 (21-28) mmol/L ABG pH (7.35-7.45) ABG Total CO2 (22-28) mmol.L ABG O2 Saturation (95-98) % ABG Base Excess (-2.0-3.0) mmol/L ABG Potassium (3.6-5.2) mmol/L Sodium (132-148) mmol/L Chloride (98-107) mmol/L Glucose (65-105) mg/dl Lactate (0.7-2.1) mmol/L FiO2 % Potassium (3.6-5.0) mmol/L Carbon Dioxide (21-33) mmol/L Anion Gap (10-20) BUN (7-21) mg/dL Creatinine (0.7-1.2) mg/dl Est GFR ( Amer) Est GFR (Non-Af Amer) Random Glucose (70-110) mg/dL Calcium (8.4-10.5) mg/dL Total Bilirubin (0.2-1.3) mg/dL AST (14-36) U/L ALT (7-56) U/L Alkaline Phosphatase (38-126) U/L Troponin I ng/mL Total Protein (5.8-8.3) g/dL Albumin (3.0-4.8) g/dL Globulin gm/dL Albumin/Globulin Ratio (1.1-1.8) Procalcitonin (0.19-0.49) NG/ML Arterial Blood Potassium (3.6-5.2) mmol/L CMV IgG Ab >10.00 H U/mL Ur L.pneumophila Ag Negative (NEGATIVE) Laboratory Results - last 24 hr 04/14/18 04/14/18 04/14/18 03:00 05:50 10:31 WBC RBC Hgb Hct MCV MCH MCHC RDW Plt Count Gran % Lymph % (Auto) Wilcox % (Auto) Eos % (Auto) Baso % (Auto) Gran # Lymph # (Auto) Wilcox # (Auto) Eos # (Auto) Baso # (Auto) Neutrophils % (Manual) Band Neutrophils % Lymphocytes % (Manual) Monocytes % (Manual) Platelet Evaluation Poikilocytosis (manual Anisocytosis (manual) Ovalocytes pCO2 43 pO2 127.0 H HCO3 20.7 L ABG pH 7.29 L ABG Total CO2 22.0 ABG O2 Saturation 99.8 H ABG Base Excess -5.7 L ABG Potassium 4.1 Sodium 136.0 Chloride 111.0 H Glucose 287 H Lactate 1.4 FiO2 75.0 Potassium Carbon Dioxide Anion Gap BUN Creatinine Est GFR ( Amer) Est GFR (Non-Af Amer) Random Glucose Calcium Total Bilirubin AST ALT Alkaline Phosphatase Troponin I Total Protein Albumin Globulin Albumin/Globulin Ratio Procalcitonin Arterial Blood Potassium 4.1 CMV IgG Ab >10.00 H Ur L.pneumophila Ag Negative 04/14/18 04/14/18 04/15/18 11:02 12:35 06:40 WBC 12.3 H D RBC 4.12 Hgb 11.0 L Hct 34.8 L MCV 84.5 MCH 26.7 MCHC 31.6 RDW 19.4 H Plt Count 68 L Gran % 91.1 H Lymph % (Auto) 4.2 L Wilcox % (Auto) 4.7 Eos % (Auto) 0.0 L Baso % (Auto) 0.0 Gran # 11.21 H Lymph # (Auto) 0.5 L Wilcox # (Auto) 0.6 Eos # (Auto) 0.0 Baso # (Auto) 0.00 Neutrophils % (Manual) 94 H Band Neutrophils % 4 H Lymphocytes % (Manual) 2 L Monocytes % (Manual) TEST NOT PERFORMED Platelet Evaluation Low Poikilocytosis (manual Slight Anisocytosis (manual) 1+ Ovalocytes 1+ pCO2 pO2 HCO3 ABG pH ABG Total CO2 ABG O2 Saturation ABG Base Excess ABG Potassium Sodium Chloride Glucose Lactate FiO2 Potassium Carbon Dioxide Anion Gap BUN Creatinine Est GFR ( Amer) Est GFR (Non-Af Amer) Random Glucose Calcium Total Bilirubin AST ALT Alkaline Phosphatase Troponin I 0.09 D Total Protein Albumin Globulin Albumin/Globulin Ratio Procalcitonin 0.31 Arterial Blood Potassium CMV IgG Ab Ur L.pneumophila Ag 04/15/18 04/15/18 06:40 07:46 WBC RBC Hgb Hct MCV MCH MCHC RDW Plt Count Gran % Lymph % (Auto) Wilcox % (Auto) Eos % (Auto) Baso % (Auto) Gran # Lymph # (Auto) Wilcox # (Auto) Eos # (Auto) Baso # (Auto) Neutrophils % (Manual) Band Neutrophils % Lymphocytes % (Manual) Monocytes % (Manual) Platelet Evaluation Poikilocytosis (manual Anisocytosis (manual) Ovalocytes pCO2 45 pO2 106.0 H HCO3 23.2 ABG pH 7.32 L ABG Total CO2 24.6 ABG O2 Saturation 98.8 H ABG Base Excess -3.1 L ABG Potassium 4.0 Sodium 140 139.0 Chloride 111 H 114.0 H Glucose 111 H Lactate 0.5 L FiO2 60.0 Potassium 4.4 Carbon Dioxide 27 Anion Gap 7 L BUN 19 Creatinine 0.9 Est GFR ( Amer) > 60 Est GFR (Non-Af Amer) > 60 Random Glucose 104 Calcium 7.2 L Total Bilirubin 0.2 AST 1420 H ALT 343 H Alkaline Phosphatase 232 H Troponin I Total Protein 5.1 L Albumin 1.8 L Globulin 3.3 Albumin/Globulin Ratio 0.6 L Procalcitonin Arterial Blood Potassium 4.0 CMV IgG Ab Ur L.pneumophila Ag Fingerstick Blood Sugar Results: 229 Critical Care Progress Note - Nutrition Nutrition: Nutrition Category Date Time Status Heart Healthy Diet [DIET] Diets 04/14/18 Breakfast Active Assessment/Plan - Assessment and Plan (Free Text) Assessment: 37 year old female under ICU management for Acute Hypoxemic Respiratory Failure and Cardiogenic Shock with multiorgan failure Assessment: Liver Failure with transaminitis likely 2/2 Hep C VS Cardiogenic Shock RCHF 2/2 Pulm HTN (RVSP of 45) likely due to COPD Pancytopenia with neutropenia Elevated Troponins - likely Type II MD CAP vs PCP vs Mixed Picture in the setting of Full-Blown AIDS Prolonged QTc AIDS Hep C R/O TB Plan: Neuro - Pain control - monitor carefully in setting of methadone use - 1/2 dose of methadone, patient tolerating well, monitor for withdrawal Pulm - Keep patient on HF NC; currently at 59L - SaO2 above 90 - Duoneb PRN - Solumedrol 30 Q12 - Tessalon Pearles 100 TID CV - Wean levophed - Aspirin 81mg PO Daily GI - Protonix for prophylaxis - Continue to trend AST/ALT - trending down - replete electrolyte PRN. - U/O 1776 hold fuentes; Monitor I/O HEME - D/C neutropenic precautions for now - Lovenox for DVT PPX ID - AIDS/HepC Non compliant with medications possibly due to access - Pending HIV and Hep C Viral load - Primaquine PO (day 3), IV clindamycine (day 3) and doxycycline (day 2) - AFP x 1; d/c airborne precautions - ARCELIA treatment because risk of infection is high when CD4<10. Continue toxo prophylaxis. Continue PCP PNA treatment Endo - Maintain Euglycemia <Negrito Oneill - Last Filed: 04/15/18 13:03> CCU Objective - Vital Signs / Intake & Output Intake and Output (Last 8hrs): Intake & Output 04/14/18 04/15/18 04/15/18 22:59 06:59 14:59 Intake Total 1896 1830 Output Total 850 1100 Balance 1046 730 Intake: IV 1416 1580 0.9 1200 1200 abx 100 200 dobutamine 28 levophed 88 180 Oral 480 250 Output: Urine 850 1100 Urine, Voided 850 1100 Other: # Voids Urine, Voided 2 # Bowel Movements 0 - Medications Active Medications: Active Medications Generic Name Dose Route Start Last Admin Trade Name Freq PRN Reason Stop Dose Admin Albuterol/Ipratropium 3 ml 04/14/18 10:42 04/15/18 07:25 Duoneb 3 Mg/0.5 Mg (3 Ml) Ud IH 3 ml [id number] PRN Administration Shortness of Breath Benzonatate 100 mg 04/14/18 10:00 04/15/18 09:50 Tessalon Perles PO 100 mg TID EDSON Administration Doxycycline Hyclate 100 mg 04/14/18 11:02 04/15/18 09:50 Doryx PO 04/23/18 11:03 100 mg Q12 EDSON Administration Protocol Enoxaparin Sodium 40 mg 04/14/18 10:00 04/15/18 09:51 Lovenox SC 40 mg DAILY EDSON Administration Protocol Clindamycin Phosphate 900 mg/ 106 mls @ 106 mls/hr 04/14/18 06:00 04/15/18 05 :44 Sodium Chloride IVPB 106 mls/hr Q8 EDSON Administration Protocol Sodium Chloride 1,000 mls @ 100 mls/hr 04/14/18 03:12 04/15/18 09:52 Sodium Chloride 0.9% IV 100 mls/hr .Q10H EDSON Administration Norepinephrine Bitartrate 8 mg 500 mls @ 15 mls/hr 04/14/18 11:33 04/14/18 11 :52 / Sodium Chloride IV 4 mcg/min .Q24H PRN 15 mls/hr TITRATE PER MD ORDER Administration Protocol 4 MCG/MIN Methadone HCl 70 mg 04/14/18 17:15 04/15/18 09:55 Methadone PO 70 mg DAILY EDSON Administration Methylprednisolone 30 mg 04/14/18 10:00 04/15/18 09:51 Solu-Medrol IVP 30 mg Q12 EDSON Administration Mirtazapine 30 mg 04/14/18 22:00 04/14/18 22:08 Remeron PO 30 mg HS EDSON Administration Pantoprazole Sodium 40 mg 04/15/18 06:00 04/15/18 05:43 Protonix Ec Tab PO 40 mg 0600 EDSON Administration Primaquine Phosphate 26.3 mg 04/14/18 10:00 04/15/18 09:55 Primaquine PO 26.3 mg DAILY EDSON Administration Protocol - Patient Studies Lab Studies: Lab Studies 04/15/18 04/15/18 04/15/18 Range/Units 07:46 06:40 06:40 WBC 12.3 H D (4.5-11.0) 10^3/ul RBC 4.12 (3.5-6.1) 10^6/uL Hgb 11.0 L (12.0-16.0) g/dL Hct 34.8 L (36.0-48.0) % MCV 84.5 (80.0-105.0) fl MCH 26.7 (25.0-35.0) pg MCHC 31.6 (31.0-37.0) g/dl RDW 19.4 H (11.5-14.5) % Plt Count 68 L (120.0-450.0) 10^3/uL Gran % 91.1 H (50.0-68.0) % Lymph % (Auto) 4.2 L (22.0-35.0) % Wilcox % (Auto) 4.7 (1.0-6.0) % Eos % (Auto) 0.0 L (1.5-5.0) % Baso % (Auto) 0.0 (0.0-3.0) % Gran # 11.21 H (1.4-6.5) Lymph # (Auto) 0.5 L (1.2-3.4) Wilcox # (Auto) 0.6 (0.1-0.6) Eos # (Auto) 0.0 (0.0-0.7) Baso # (Auto) 0.00 (0.0-2.0) K/mm3 Neutrophils % (Manual) 94 H (50.0-70.0) % Band Neutrophils % 4 H (0-2) % Lymphocytes % (Manual) 2 L (22.0-35.0) % Monocytes % (Manual) TEST NOT PERFORMED Platelet Evaluation Low (NORMAL) Poikilocytosis (manual Slight Anisocytosis (manual) 1+ Ovalocytes 1+ pCO2 45 (35-45) mm/Hg pO2 106.0 H (80-100) mm/Hg HCO3 23.2 (21-28) mmol/L ABG pH 7.32 L (7.35-7.45) ABG Total CO2 24.6 (22-28) mmol.L ABG O2 Saturation 98.8 H (95-98) % ABG Base Excess -3.1 L (-2.0-3.0) mmol/L ABG Potassium 4.0 (3.6-5.2) mmol/L Glucose 111 H (65-105) mg/dl Lactate 0.5 L (0.7-2.1) mmol/L FiO2 60.0 % Sodium 139.0 140 (132-148) mmol/L Potassium 4.4 (3.6-5.0) mmol/L Chloride 114.0 H 111 H (98-107) mmol/L Carbon Dioxide 27 (21-33) mmol/L Anion Gap 7 L (10-20) BUN 19 (7-21) mg/dL Creatinine 0.9 (0.7-1.2) mg/dl Est GFR ( Amer) > 60 Est GFR (Non-Af Amer) > 60 Random Glucose 104 (70-110) mg/dL Calcium 7.2 L (8.4-10.5) mg/dL Total Bilirubin 0.2 (0.2-1.3) mg/dL AST 1420 H (14-36) U/L ALT 343 H (7-56) U/L Alkaline Phosphatase 232 H (38-126) U/L Troponin I ng/mL Total Protein 5.1 L (5.8-8.3) g/dL Albumin 1.8 L (3.0-4.8) g/dL Globulin 3.3 gm/dL Albumin/Globulin Ratio 0.6 L (1.1-1.8) Procalcitonin (0.19-0.49) NG/ML Arterial Blood Potassium 4.0 (3.6-5.2) mmol/L CMV IgG Ab U/mL CMV IgM Ab AU/mL Ur L.pneumophila Ag (NEGATIVE) 04/14/18 04/14/18 04/14/18 Range/Units 12:35 11:02 05:50 WBC (4.5-11.0) 10^3/ul RBC (3.5-6.1) 10^6/uL Hgb (12.0-16.0) g/dL Hct (36.0-48.0) % MCV (80.0-105.0) fl MCH (25.0-35.0) pg MCHC (31.0-37.0) g/dl RDW (11.5-14.5) % Plt Count (120.0-450.0) 10^3/uL Gran % (50.0-68.0) % Lymph % (Auto) (22.0-35.0) % Wilcox % (Auto) (1.0-6.0) % Eos % (Auto) (1.5-5.0) % Baso % (Auto) (0.0-3.0) % Gran # (1.4-6.5) Lymph # (Auto) (1.2-3.4) Wilcox # (Auto) (0.1-0.6) Eos # (Auto) (0.0-0.7) Baso # (Auto) (0.0-2.0) K/mm3 Neutrophils % (Manual) (50.0-70.0) % Band Neutrophils % (0-2) % Lymphocytes % (Manual) (22.0-35.0) % Monocytes % (Manual) Platelet Evaluation (NORMAL) Poikilocytosis (manual Anisocytosis (manual) Ovalocytes pCO2 (35-45) mm/Hg pO2 (80-100) mm/Hg HCO3 (21-28) mmol/L ABG pH (7.35-7.45) ABG Total CO2 (22-28) mmol.L ABG O2 Saturation (95-98) % ABG Base Excess (-2.0-3.0) mmol/L ABG Potassium (3.6-5.2) mmol/L Glucose (65-105) mg/dl Lactate (0.7-2.1) mmol/L FiO2 % Sodium (132-148) mmol/L Potassium (3.6-5.0) mmol/L Chloride (98-107) mmol/L Carbon Dioxide (21-33) mmol/L Anion Gap (10-20) BUN (7-21) mg/dL Creatinine (0.7-1.2) mg/dl Est GFR ( Amer) Est GFR (Non-Af Amer) Random Glucose (70-110) mg/dL Calcium (8.4-10.5) mg/dL Total Bilirubin (0.2-1.3) mg/dL AST (14-36) U/L ALT (7-56) U/L Alkaline Phosphatase (38-126) U/L Troponin I 0.09 D ng/mL Total Protein (5.8-8.3) g/dL Albumin (3.0-4.8) g/dL Globulin gm/dL Albumin/Globulin Ratio (1.1-1.8) Procalcitonin 0.31 (0.19-0.49) NG/ML Arterial Blood Potassium (3.6-5.2) mmol/L CMV IgG Ab >10.00 H U/mL CMV IgM Ab <30.00 AU/mL Ur L.pneumophila Ag (NEGATIVE) 04/14/18 Range/Units 03:00 WBC (4.5-11.0) 10^3/ul RBC (3.5-6.1) 10^6/uL Hgb (12.0-16.0) g/dL Hct (36.0-48.0) % MCV (80.0-105.0) fl MCH (25.0-35.0) pg MCHC (31.0-37.0) g/dl RDW (11.5-14.5) % Plt Count (120.0-450.0) 10^3/uL Gran % (50.0-68.0) % Lymph % (Auto) (22.0-35.0) % Wilcox % (Auto) (1.0-6.0) % Eos % (Auto) (1.5-5.0) % Baso % (Auto) (0.0-3.0) % Gran # (1.4-6.5) Lymph # (Auto) (1.2-3.4) Wilcox # (Auto) (0.1-0.6) Eos # (Auto) (0.0-0.7) Baso # (Auto) (0.0-2.0) K/mm3 Neutrophils % (Manual) (50.0-70.0) % Band Neutrophils % (0-2) % Lymphocytes % (Manual) (22.0-35.0) % Monocytes % (Manual) Platelet Evaluation (NORMAL) Poikilocytosis (manual Anisocytosis (manual) Ovalocytes pCO2 (35-45) mm/Hg pO2 (80-100) mm/Hg HCO3 (21-28) mmol/L ABG pH (7.35-7.45) ABG Total CO2 (22-28) mmol.L ABG O2 Saturation (95-98) % ABG Base Excess (-2.0-3.0) mmol/L ABG Potassium (3.6-5.2) mmol/L Glucose (65-105) mg/dl Lactate (0.7-2.1) mmol/L FiO2 % Sodium (132-148) mmol/L Potassium (3.6-5.0) mmol/L Chloride (98-107) mmol/L Carbon Dioxide (21-33) mmol/L Anion Gap (10-20) BUN (7-21) mg/dL Creatinine (0.7-1.2) mg/dl Est GFR ( Amer) Est GFR (Non-Af Amer) Random Glucose (70-110) mg/dL Calcium (8.4-10.5) mg/dL Total Bilirubin (0.2-1.3) mg/dL AST (14-36) U/L ALT (7-56) U/L Alkaline Phosphatase (38-126) U/L Troponin I ng/mL Total Protein (5.8-8.3) g/dL Albumin (3.0-4.8) g/dL Globulin gm/dL Albumin/Globulin Ratio (1.1-1.8) Procalcitonin (0.19-0.49) NG/ML Arterial Blood Potassium (3.6-5.2) mmol/L CMV IgG Ab U/mL CMV IgM Ab AU/mL Ur L.pneumophila Ag Negative (NEGATIVE) Laboratory Results - last 24 hr 04/14/18 04/14/18 04/14/18 03:00 05:50 11:02 WBC RBC Hgb Hct MCV MCH MCHC RDW Plt Count Gran % Lymph % (Auto) Wilcox % (Auto) Eos % (Auto) Baso % (Auto) Gran # Lymph # (Auto) Wilcox # (Auto) Eos # (Auto) Baso # (Auto) Neutrophils % (Manual) Band Neutrophils % Lymphocytes % (Manual) Monocytes % (Manual) Platelet Evaluation Poikilocytosis (manual Anisocytosis (manual) Ovalocytes pCO2 pO2 HCO3 ABG pH ABG Total CO2 ABG O2 Saturation ABG Base Excess ABG Potassium Glucose Lactate FiO2 Sodium Potassium Chloride Carbon Dioxide Anion Gap BUN Creatinine Est GFR ( Amer) Est GFR (Non-Af Amer) Random Glucose Calcium Total Bilirubin AST ALT Alkaline Phosphatase Troponin I Total Protein Albumin Globulin Albumin/Globulin Ratio Procalcitonin 0.31 Arterial Blood Potassium CMV IgG Ab >10.00 H CMV IgM Ab <30.00 Ur L.pneumophila Ag Negative 04/14/18 04/15/18 04/15/18 12:35 06:40 06:40 WBC 12.3 H D RBC 4.12 Hgb 11.0 L Hct 34.8 L MCV 84.5 MCH 26.7 MCHC 31.6 RDW 19.4 H Plt Count 68 L Gran % 91.1 H Lymph % (Auto) 4.2 L Wilcox % (Auto) 4.7 Eos % (Auto) 0.0 L Baso % (Auto) 0.0 Gran # 11.21 H Lymph # (Auto) 0.5 L Wilcox # (Auto) 0.6 Eos # (Auto) 0.0 Baso # (Auto) 0.00 Neutrophils % (Manual) 94 H Band Neutrophils % 4 H Lymphocytes % (Manual) 2 L Monocytes % (Manual) TEST NOT PERFORMED Platelet Evaluation Low Poikilocytosis (manual Slight Anisocytosis (manual) 1+ Ovalocytes 1+ pCO2 pO2 HCO3 ABG pH ABG Total CO2 ABG O2 Saturation ABG Base Excess ABG Potassium Glucose Lactate FiO2 Sodium 140 Potassium 4.4 Chloride 111 H Carbon Dioxide 27 Anion Gap 7 L BUN 19 Creatinine 0.9 Est GFR ( Amer) > 60 Est GFR (Non-Af Amer) > 60 Random Glucose 104 Calcium 7.2 L Total Bilirubin 0.2 AST 1420 H ALT 343 H Alkaline Phosphatase 232 H Troponin I 0.09 D Total Protein 5.1 L Albumin 1.8 L Globulin 3.3 Albumin/Globulin Ratio 0.6 L Procalcitonin Arterial Blood Potassium CMV IgG Ab CMV IgM Ab Ur L.pneumophila Ag 04/15/18 07:46 WBC RBC Hgb Hct MCV MCH MCHC RDW Plt Count Gran % Lymph % (Auto) Wilcox % (Auto) Eos % (Auto) Baso % (Auto) Gran # Lymph # (Auto) Wilcox # (Auto) Eos # (Auto) Baso # (Auto) Neutrophils % (Manual) Band Neutrophils % Lymphocytes % (Manual) Monocytes % (Manual) Platelet Evaluation Poikilocytosis (manual Anisocytosis (manual) Ovalocytes pCO2 45 pO2 106.0 H HCO3 23.2 ABG pH 7.32 L ABG Total CO2 24.6 ABG O2 Saturation 98.8 H ABG Base Excess -3.1 L ABG Potassium 4.0 Glucose 111 H Lactate 0.5 L FiO2 60.0 Sodium 139.0 Potassium Chloride 114.0 H Carbon Dioxide Anion Gap BUN Creatinine Est GFR ( Amer) Est GFR (Non-Af Amer) Random Glucose Calcium Total Bilirubin AST ALT Alkaline Phosphatase Troponin I Total Protein Albumin Globulin Albumin/Globulin Ratio Procalcitonin Arterial Blood Potassium 4.0 CMV IgG Ab CMV IgM Ab Ur L.pneumophila Ag Critical Care Progress Note - Nutrition Nutrition: Nutrition Category Date Time Status Heart Healthy Diet [DIET] Diets 04/14/18 Breakfast Active Attending/Attestation - Attestation I have personally seen and examined this patient.: Yes I have fully participated in the care of the patient.: Yes I have reviewed all pertinent clinical information: Yes Notes (Text): 04/15/18 13:01 The patient was seen and examined at the bedside. Patient care was discussed with resident Medical records, lab studies, and imaging were reviewed and management issues were discussed and formulated. Last 24H events reviewed. Agree with above treatment plans as outlined in 's note with addition of the following: Acute Respiratory Failure \ COPD \Hypercapnea \ Hypoxemia \ Sepsis \ PNA \ HIV - AIDS \ NSTEMI \ Pancytopenia \ Elevated LFT -hemodynamic monitoring to maintain MAP>65; titrate levophed drip; cardiology f\ u; Echo shows EF 35% -o2 supplementation to maintain Spo2 >90 Pao2>60; continue Hi-flow humidified O2 -ABG in AM reviewed ; CXR reviewed -continue nebs and steroids and pulmonary toileting -continue broad spectrum Abx as per ID team and f\u cultures and AFB -f\u Bun\Cr and U\o; monitor and replace e-lites; continue IVF -PO diet and aspiration precautions -f\u serial LFT; consider GI eval -DVT \ PUD prophylaxis CCM time 30min
[2018-04-15] MEDS: Mupirocin 2% Ointment 15 GM TUBE NS SCH (17:00)
--- NOTE | 2018-04-15 18:13 | PN ---
DATE: 04/15/2018 FOLLOWUP SUBJECTIVE: The patient is mildly short of breath. She denies any chest pain at this time, although she reported chest discomfort yesterday. PHYSICAL EXAMINATION: VITAL SIGNS: Blood pressure 106/62, heart rate 76, respirations 23, temperature 97.2. HEENT: Temporal muscle wasting. NECK: No JVD. CHEST: Bilateral rhonchi. HEART: S1 and S2 regular. EXTREMITIES: No edema. LABORATORY DATA: SMA-7: Sodium 140, potassium 4.4, chloride 111, CO2 of 27, glucose 104, BUN is 19, creatinine 0.9. AST and ALT are 1420 and 343 respectively, some improvement compared to yesterday's numbers. Chest x-ray: Minimal interstitial infiltrate in the right upper lobe. Venous Doppler of the lower extremity: No sonographic evidence of DVT. Echocardiography study performed yesterday revealed ejection fraction estimated at 35%, which is significant drop in the ejection fraction compared to an echocardiography study 2 months ago when the ejection fraction was considered to be borderline. ASSESSMENT: 1. Biventricular failure. 2. Human immunodeficiency virus positive. 3. Borderline troponin elevation. 4. Rule out underlying sepsis. RECOMMENDATIONS: Continue current IV gentamicin and IV primaquine. Continue Levophed infusion. Continue Solu-Medrol 30 mg intravenously every 12 hours. Subcutaneous Lovenox is 40 mg daily. Duncan Dodson MD
--- NOTE | 2018-04-15 18:47 | CP.PCM.PN ---
Subjective - Date & Time of Evaluation Date of Evaluation: 04/15/18 Time of Evaluation: 08:15 - Subjective Subjective: Patient still having shortness of breath , no fevers, feels weak. Objective - Vital Signs/Intake and Output Vital Signs (last 24 hours): Temp Pulse Resp BP Pulse Ox 97.2 F L 73 16 113/52 L 99 04/14/18 16:00 04/15/18 04:00 04/15/18 04:00 04/15/18 04:00 04/15/18 04:00 Intake and Output: 04/14/18 04/15/18 18:59 06:59 Intake Total 1896 Output Total 850 Balance 1046 - Medications Medications: Current Medications Albuterol/Ipratropium (Duoneb 3 Mg/0.5 Mg (3 Ml) Ud) 3 ml IH [id number] PRN PRN Reason: Shortness of Breath Benzonatate (Tessalon Perles) 100 mg PO TID [facility] Last Admin: 04/14/18 18:13 Dose: 100 mg Doxycycline Hyclate (Doryx) 100 mg PO Q12 [facility] PRN Reason: Protocol Stop: 04/23/18 11:03 Last Admin: 04/14/18 22:08 Dose: 100 mg Enoxaparin Sodium (Lovenox) 40 mg SC DAILY [facility] PRN Reason: Protocol Last Admin: 04/14/18 09:09 Dose: 40 mg Clindamycin Phosphate 900 mg/ (Sodium Chloride) 106 mls @ 106 mls/hr IVPB Q8 [facility] PRN Reason: Protocol Last Admin: 04/15/18 05:44 Dose: 106 mls/hr Sodium Chloride (Sodium Chloride 0.9%) 1,000 mls @ 100 mls/hr IV .Q10H [facility] Last Admin: 04/14/18 22:11 Dose: 100 mls/hr Norepinephrine Bitartrate 8 mg (/ Sodium Chloride) 500 mls @ 15 mls/hr IV .Q24H PRN; Protocol; 4 MCG/MIN PRN Reason: TITRATE PER MD ORDER Last Admin: 04/14/18 11:52 Dose: 4 mcg/min, 15 mls/hr Methadone HCl (Methadone) 70 mg PO DAILY [facility] Last Admin: 04/14/18 18:13 Dose: 70 mg Methylprednisolone (Solu-Medrol) 30 mg IVP Q12 [facility] Last Admin: 04/14/18 22:08 Dose: 30 mg Mirtazapine (Remeron) 30 mg PO HS [facility] Last Admin: 04/14/18 22:08 Dose: 30 mg Pantoprazole Sodium (Protonix Ec Tab) 40 mg PO 0600 [facility] Last Admin: 04/15/18 05:43 Dose: 40 mg Primaquine Phosphate (Primaquine) 26.3 mg PO DAILY [facility] PRN Reason: Protocol Last Admin: 04/14/18 09:14 Dose: 26.3 mg - Labs Labs: 04/14/18 05:50 04/14/18 05:50 PT 11.0 SECONDS (9.4-12.5) 04/13/18 18:09 INR 0.97 (0.93-1.08) 04/13/18 18:09 - Constitutional Appears: Cachectic, Chronically Ill - Head Exam Head Exam: NORMAL INSPECTION - Neck Exam Neck Exam: absent: Meningismus - Respiratory Exam Respiratory Exam: Decreased Breath Sounds - Cardiovascular Exam Cardiovascular Exam: +S1, +S2 - GI/Abdominal Exam GI & Abdominal Exam: Soft. absent: Tenderness Assessment and Plan - Assessment and Plan (Free Text) Plan: Assessment severe sepsis with respiratory failure probably due to pneumocystis pneumonia R/ O atypical pneumonia, unlikely TB HIV/AIDS with last CD4 count <20, non-compliant with her meds COPD chronic back pain history of IVDA hepatitis C infection Plan continue Clindamycin and Primaquine and should complete 14-21 days follow up beta glucanserum Crypt Ag is negative, urine Legionella Ag follow up sputum AFB, sputum cx will continue to monitor clinically overall prognosis is poor ,
[2018-04-16] MEDS: Pantoprazole 40 mg EC Tab PO SCH (05:29)
[2018-04-16 06:39] LABS: BASO # 0.01 K/mm3 (0.0-2.0); BASO % 0.1 % (0.0-3.0); GRAN # 7.08 (1.4-6.5); GRAN % 89.4 % (50.0-68.0); HEMOGLOBIN 10.2 g/dL (12.0-16.0); LYMPH # 0.4 (1.2-3.4); LYMPH % 5.1 % (22.0-35.0); MEAN CELL VOLUME 85.9 fl (80.0-105.0); MEAN CORPUSCULAR HEMOGLOBIN 27.1 pg (25.0-35.0); MEAN CORPUSCULAR HGB CONC 31.6 g/dl (31.0-37.0); MEAN PLATELET VOLUME 10.3 fl (7.0-11.0); MONO # 0.4 (0.1-0.6); MONO % 5.4 % (1.0-6.0); RBC 3.76 10^6/uL (3.5-6.1); RED CELL DISTRIBUTION WIDTH 19.5 % (11.5-14.5); WHITE BLOOD COUNT 7.9 10^3/ul (4.5-11.0)
[2018-04-16 07:23] LABS: ALB/GLOB RATIO 0.6 (1.1-1.8); ALBUMIN 1.7 g/dL (3.0-4.8); ALT/SGPT 243 U/L (7-56); AST/SGOT 785 U/L (14-36); BLOOD UREA NITROGEN 25 mg/dL (7-21); CALCIUM 7.1 mg/dL (8.4-10.5); GFR AFRICAN-AMERICAN > 60; GFR NON-AFRICAN AMERICAN > 60
[2018-04-16] MEDS ORDERED: DOBUTamine 500mg/250ml D5W 500 MG/250 ML BAG IV PRN (08:16)
[2018-04-16] MEDS: MethylPREDNISolone 40 mg Vial IVP SCH (09:18)
[2018-04-16] MEDS: Enoxaparin 40 mg Syringe SC SCH (09:19)
[2018-04-16] MEDS: Primaquine 26.3 mg Tab PO SCH (09:23)
[2018-04-16] MEDS: Sodium Chloride 0.9% 1,000 ML IV SCH (09:25)
[2018-04-16] MEDS: Mupirocin 2% Ointment 15 GM TUBE NS SCH ×2 (09:25→17:36)
--- NOTE | 2018-04-16 10:21 | CP.PCM.PN ---
<Gricel Rodríguez - Last Filed: 04/16/18 11:57> Subjective - Date & Time of Evaluation Date of Evaluation: 04/16/18 Time of Evaluation: 08:00 - Subjective Subjective: Gricel Rodríguez DO PGY1 - IM Progress note for Dr. Aguirre Patient seen and examined at bedside n the ICU. Patient continues to have some difficulty breathing while on high flow oxygen. Complaining of generalized weakness and fatigue, and back pain. Back pain unchanged from baseline. Objective - Vital Signs/Intake and Output Vital Signs (last 24 hours): Temp Pulse Resp BP Pulse Ox 98.0 F 77 12 92/61 L 98 04/16/18 06:00 04/16/18 06:00 04/16/18 07:17 04/16/18 06:00 04/16/18 06:00 Intake and Output: 04/16/18 04/16/18 06:59 18:59 Intake Total 1320 Output Total 1300 Balance 20 - Medications Medications: Current Medications Albuterol/Ipratropium (Duoneb 3 Mg/0.5 Mg (3 Ml) Ud) 3 ml IH [id number] PRN PRN Reason: Shortness of Breath Last Admin: 04/15/18 07:25 Dose: 3 ml Benzonatate (Tessalon Perles) 100 mg PO TID [facility] Last Admin: 04/16/18 09:18 Dose: 100 mg Doxycycline Hyclate (Doryx) 100 mg PO Q12 [facility] PRN Reason: Protocol Stop: 04/23/18 11:03 Last Admin: 04/16/18 09:18 Dose: 100 mg Enoxaparin Sodium (Lovenox) 40 mg SC DAILY [facility] PRN Reason: Protocol Last Admin: 04/16/18 09:19 Dose: 40 mg Clindamycin Phosphate 900 mg/ (Sodium Chloride) 106 mls @ 106 mls/hr IVPB Q8 [facility] PRN Reason: Protocol Last Admin: 04/16/18 05:29 Dose: 106 mls/hr Sodium Chloride (Sodium Chloride 0.9%) 1,000 mls @ 100 mls/hr IV .Q10H [facility] Last Admin: 04/16/18 09:25 Dose: 100 mls/hr Norepinephrine Bitartrate 8 mg (/ Sodium Chloride) 500 mls @ 15 mls/hr IV .Q24H PRN; Protocol; 4 MCG/MIN PRN Reason: TITRATE PER MD ORDER Last Titration: 04/15/18 14:12 Dose: 0 mcg/min, 0 mls/hr Dobutamine HCl/Dextrose (Dobutamine/Dextrose 5% 500mg/250ml) 500 mg in 250 mls @ 3.827 mls/hr IV .Q24H PRN; Protocol; 2.5 MCG/KG/MIN PRN Reason: TITRATE PER PROTOCOL Methadone HCl (Methadone) 70 mg PO DAILY [facility] Last Admin: 04/16/18 09:23 Dose: 70 mg Methylprednisolone (Solu-Medrol) 30 mg IVP Q12 [facility] Last Admin: 04/16/18 09:18 Dose: 30 mg Mirtazapine (Remeron) 30 mg PO HS [facility] Last Admin: 04/15/18 21:32 Dose: 30 mg Mupirocin (Bactroban Ointment) 1 gm NS BID [facility] Stop: 04/20/18 10:01 Last Admin: 04/16/18 09:25 Dose: 1 applic Pantoprazole Sodium (Protonix Ec Tab) 40 mg PO 0600 [facility] Last Admin: 04/16/18 05:29 Dose: 40 mg Primaquine Phosphate (Primaquine) 26.3 mg PO DAILY [facility] PRN Reason: Protocol Last Admin: 04/16/18 09:23 Dose: 26.3 mg - Labs Labs: 04/16/18 06:35 04/16/18 06:35 PT 11.0 SECONDS (9.4-12.5) 04/13/18 18:09 INR 0.97 (0.93-1.08) 04/13/18 18:09 - Additional Findings Additional findings: - Constitutional Appears: Unkempt, Older Than Stated Age, Chronically Ill - Head Exam Head Exam: ATRAUMATIC, NORMAL INSPECTION, NORMOCEPHALIC - Eye Exam Eye Exam: EOMI - Respiratory Exam Respiratory Exam: Diffuse rhonchi, worst in RUL. absent: Wheezes, Stridor - Cardiovascular Exam Cardiovascular Exam: REGULAR RHYTHM, +S1, +S2 - GI/Abdominal Exam GI & Abdominal Exam: Soft, Normal Bowel Sounds. absent: Rigid, Tenderness - Extremities Exam Extremities Exam: Full ROM. absent: Calf Tenderness, Tenderness - Neurological Exam Neurological Exam: Awake, Oriented x3 Neuro motor strength exam: Left Upper Extremity: 5, Right Upper Extremity: 5, Left Lower Extremity: 5, Right Lower Extremity: 5 Additional comments: Tired, sleepy, easily arousable, answering questions appropriately, obeying commands - Psychiatric Exam Psychiatric exam: Depressed, Flat Affect - Skin Skin Exam: Dry, Intact Assessment and Plan - Assessment and Plan (Free Text) Assessment: 37 year old female with past medical history HIV, AIDS last known CD4 count <20 hx of PCP, Hepatitis C, COPD, heroin user on methadone, who recently was treated for PCP by Dr. Chou. Patient monitored in ICU for hypotension and tachycardia. Off levophed, BP stable. Patient on high flow O2 for maintenance of appropriate SaO2. Plan: 1. Septic vs cardiogenic shock - Patient with right sided heart failure secondary to higher pulm HTN(RSVP 45) as per echo from 01/2018 and LVEF 35% - Vasopressors discontinued yesterday, no further episodes of hypotension - Hx of PCP dx with low CD4 count; leukopenia resolved - ACS workup negative - CMV Ab negative; Fungitell, mycoplasma, s. pneumo pending - Blood, urine cultures negative 2. Pneumonia in setting of AIDS with last known CD4 <20 - Likely PCP, previous dx and ?completed treatment - Allergry to Bactrim, PCN, levofloxacin - Primaquine, Clinda, and Doxy Day 3 to complete 14-21 days per ID - Treating for ARCELIA and toxoplasmosis prophylasis, PCP tx 3. COPD - CXR showing right interstitial infiltrate, cephalization, hyperinflation - Chest CT: diffuse bronchitis, scattered ground glass air space opacities and air-trapping. Stable nodules in the superior segment of the left lower lobe, stable mediastinal lymphadenopathy with evidence of prior granulomatous disease. - IV solumedrol 30 BID - Duoneb prn - BiPAP at night - Hi Flow 50LPM, humidified air - Maintain SaO2 >90% 4. AIDS - Last known CD4 count <20, previous dx of PCP - Non-compliant with HAART therapy - Infectious disease consulted, follow up recs 5. Transaminitis; improving - Etiology: Shock vs. drugs vs. medication - Previous history of Hepatitis C reactivity - Maintain MAP >65, IVF, hold hepatotoxic medicaitons GI/DVT ppx - Lovenox, continue to watch thrombocytopenia - protonix Dispo: Patient will follow up with Dr. Carter Case and plan discussed with attending <Dyllan Aguirre - Last Filed: 04/16/18 23:03> Objective - Vital Signs/Intake and Output Vital Signs (last 24 hours): Temp Pulse Resp BP Pulse Ox 98 F 71 12 104/63 99 04/16/18 17:46 04/16/18 22:00 04/16/18 20:15 04/16/18 20:01 04/16/18 20:01 Intake and Output: 04/16/18 04/17/18 18:59 06:59 Intake Total 740 120 Output Total 1100 500 Balance -360 -380 - Medications Medications: Current Medications Albuterol/Ipratropium (Duoneb 3 Mg/0.5 Mg (3 Ml) Ud) 3 ml IH [id number] PRN PRN Reason: Shortness of Breath Last Admin: 04/15/18 07:25 Dose: 3 ml Benzonatate (Tessalon Perles) 100 mg PO TID [facility] Last Admin: 04/16/18 17:36 Dose: 100 mg Doxycycline Hyclate (Doryx) 100 mg PO Q12 [facility] PRN Reason: Protocol Stop: 04/23/18 11:03 Last Admin: 04/16/18 21:06 Dose: 100 mg Enoxaparin Sodium (Lovenox) 40 mg SC DAILY [facility] PRN Reason: Protocol Last Admin: 04/16/18 09:19 Dose: 40 mg Clindamycin Phosphate 900 mg/ (Sodium Chloride) 106 mls @ 106 mls/hr IVPB Q8 [facility] PRN Reason: Protocol Last Admin: 04/16/18 21:06 Dose: 106 mls/hr Methadone HCl (Methadone) 70 mg PO DAILY [facility] Last Admin: 04/16/18 09:23 Dose: 70 mg Mirtazapine (Remeron) 30 mg PO HS [facility] Last Admin: 04/16/18 21:06 Dose: 30 mg Mupirocin (Bactroban Ointment) 1 gm NS BID [facility] Stop: 04/20/18 10:01 Last Admin: 04/16/18 17:36 Dose: 1 applic Pantoprazole Sodium (Protonix Ec Tab) 40 mg PO 0600 [facility] Last Admin: 04/16/18 05:29 Dose: 40 mg Prednisone (Prednisone Tab) 40 mg PO Q12 [facility] Last Admin: 04/16/18 21:06 Dose: 40 mg Primaquine Phosphate (Primaquine) 26.3 mg PO DAILY [facility] PRN Reason: Protocol Last Admin: 04/16/18 09:23 Dose: 26.3 mg - Labs Labs: 04/16/18 06:35 04/16/18 06:35 PT 11.0 SECONDS (9.4-12.5) 04/13/18 18:09 INR 0.97 (0.93-1.08) 04/13/18 18:09 Attending/Attestation - Attestation I have personally seen and examined this patient.: Yes I have fully participated in the care of the patient.: Yes I have reviewed all pertinent clinical information, including history, physical exam and plan: Yes Notes (Text): 04/16/18 23:02 Agree with the plans and recommendations outlined by the resident
--- NOTE | 2018-04-16 10:54 | CP.PCM.PN ---
Subjective - Date & Time of Evaluation Date of Evaluation: 04/16/18 Time of Evaluation: 09:30 - Subjective Subjective: Patient is not on pressors anymore, no fevers, still on high flow oxygen and still with some shortness of breath at rest. Objective - Vital Signs/Intake and Output Vital Signs (last 24 hours): Temp Pulse Resp BP Pulse Ox 98.0 F 77 12 92/61 L 98 04/16/18 06:00 04/16/18 06:00 04/16/18 07:17 04/16/18 06:00 04/16/18 06:00 Intake and Output: 04/16/18 04/16/18 06:59 18:59 Intake Total 1320 Output Total 1300 Balance 20 - Medications Medications: Current Medications Albuterol/Ipratropium (Duoneb 3 Mg/0.5 Mg (3 Ml) Ud) 3 ml IH [id number] PRN PRN Reason: Shortness of Breath Last Admin: 04/15/18 07:25 Dose: 3 ml Benzonatate (Tessalon Perles) 100 mg PO TID [facility] Last Admin: 04/15/18 17:01 Dose: 100 mg Doxycycline Hyclate (Doryx) 100 mg PO Q12 [facility] PRN Reason: Protocol Stop: 04/23/18 11:03 Last Admin: 04/15/18 21:33 Dose: 100 mg Enoxaparin Sodium (Lovenox) 40 mg SC DAILY [facility] PRN Reason: Protocol Last Admin: 04/15/18 09:51 Dose: 40 mg Clindamycin Phosphate 900 mg/ (Sodium Chloride) 106 mls @ 106 mls/hr IVPB Q8 [facility] PRN Reason: Protocol Last Admin: 04/16/18 05:29 Dose: 106 mls/hr Sodium Chloride (Sodium Chloride 0.9%) 1,000 mls @ 100 mls/hr IV .Q10H [facility] Last Admin: 04/15/18 23:00 Dose: 100 mls/hr Norepinephrine Bitartrate 8 mg (/ Sodium Chloride) 500 mls @ 15 mls/hr IV .Q24H PRN; Protocol; 4 MCG/MIN PRN Reason: TITRATE PER MD ORDER Last Titration: 04/15/18 14:12 Dose: 0 mcg/min, 0 mls/hr Dobutamine HCl/Dextrose (Dobutamine/Dextrose 5% 500mg/250ml) 500 mg in 250 mls @ 3.827 mls/hr IV .Q24H PRN; Protocol; 2.5 MCG/KG/MIN PRN Reason: TITRATE PER PROTOCOL Methadone HCl (Methadone) 70 mg PO DAILY [facility] Last Admin: 04/15/18 09:55 Dose: 70 mg Methylprednisolone (Solu-Medrol) 30 mg IVP Q12 [facility] Last Admin: 04/15/18 21:33 Dose: 30 mg Mirtazapine (Remeron) 30 mg PO HS [facility] Last Admin: 04/15/18 21:32 Dose: 30 mg Mupirocin (Bactroban Ointment) 1 gm NS BID [facility] Stop: 04/20/18 10:01 Last Admin: 04/15/18 17:00 Dose: 1 applic Pantoprazole Sodium (Protonix Ec Tab) 40 mg PO 0600 [facility] Last Admin: 04/16/18 05:29 Dose: 40 mg Primaquine Phosphate (Primaquine) 26.3 mg PO DAILY [facility] PRN Reason: Protocol Last Admin: 04/15/18 09:55 Dose: 26.3 mg - Labs Labs: 04/16/18 06:35 04/16/18 06:35 PT 11.0 SECONDS (9.4-12.5) 04/13/18 18:09 INR 0.97 (0.93-1.08) 04/13/18 18:09 - Constitutional Appears: Cachectic, Chronically Ill - Head Exam Head Exam: NORMAL INSPECTION - ENT Exam ENT Exam: Mucous Membranes Moist - Neck Exam Neck Exam: absent: Lymphadenopathy, Meningismus - Respiratory Exam Respiratory Exam: Decreased Breath Sounds, Rhonchi (scattered) - Cardiovascular Exam Cardiovascular Exam: +S1, +S2 - GI/Abdominal Exam GI & Abdominal Exam: Soft. absent: Tenderness Assessment and Plan - Assessment and Plan (Free Text) Plan: Assessment severe sepsis with respiratory failure probably due to pneumocystis pneumonia R/ O atypical pneumonia, unlikely TB HIV/AIDS with last CD4 count <20, non-compliant with her meds COPD chronic back pain history of IVDA hepatitis C infection Plan continue Clindamycin and Primaquine and should complete 14-21 days (day 3 today) follow up beta glucan; serum Crypt Ag is negative, urine Legionella Ag follow up sputum AFB, sputum cx will continue to monitor clinically overall prognosis is poor ,
--- NOTE | 2018-04-16 11:08 | CP.CCUPN ---
<Vinicius Roth - Last Filed: 04/16/18 11:24> CCU Subjective - Physician Review Events Since Last Encounter (Free Text): 04/16/18 08:00A Patient was seen and examined at bedside. Patient had a complaint of generalized throbbing pain overnight, but patient fell asleep comfortably without any opioid medications (two tylenol were given). At present time, patient continues to complain of generalized fatigue, but no worse than before. Patient states that her shortness of breath and chest pain are much improved since admission. CCU Objective - Vital Signs / Intake & Output Vital Signs (Last 4 hours): Vital Signs Pulse Resp 04/16/18 10:00 72 04/16/18 07:17 12 Intake and Output (Last 8hrs): Intake & Output 04/15/18 04/16/18 04/16/18 22:59 06:59 14:59 Intake Total 1608 1320 Output Total 1450 1300 Balance 158 20 Intake: IV 1248 1200 0.9 1100 1000 abx 100 200 levophed 48 Oral 360 120 Tube Feeding 0 TPN/PPN 0 Blood Product 0 Lipid 0 Albumin 0 Other 0 Output: Urine 1450 1300 Urine, Voided 1450 1300 Stool 0 Urine/Stool Mix 0 Emesis 0 Oral Regurgitation 0 Other 0 Other: # Voids Urine, Voided 3 2 # Bowel Movements 0 0 - Physical Exam Head: Positive for: Atraumatic, Normocephalic Pupils: Positive for: PERRL Extroacular Muscles: Positive for: EOMI Conjunctiva: Positive for: Normal Mouth: Positive for: Moist Mucous Membranes Neck: Positive for: Normal Range of Motion Respiratory/Chest: Positive for: Wheezes (Diffuse musical wheezes), Tender to Palpation (Chest wall tenderness). Negative for: Clear to Auscultation, Respiratory Distress, Accessory Muscle Use Cardiovascular: Positive for: Regular Rate and Rhythm, Normal S1, S2. Negative for: Murmurs Abdomen: Negative for: Tenderness, Distention, Peritoneal Signs Back: Positive for: Normal Inspection Upper Extremity: Positive for: Normal Inspection. Negative for: Cyanosis, Edema Lower Extremity: Positive for: Swelling (Dorsum left foot swelling) Neurological: Positive for: GCS=15, CN II-XII Intact, Speech Normal Skin: Positive for: Warm, Dry, Normal Color. Negative for: Rashes Psychiatric: Positive for: Alert, Oriented x 3, Normal Insight, Normal Concentration - Medications Active Medications: Active Medications Generic Name Dose Route Start Last Admin Trade Name Freq PRN Reason Stop Dose Admin Albuterol/Ipratropium 3 ml 04/14/18 10:42 04/15/18 07:25 Duoneb 3 Mg/0.5 Mg (3 Ml) Ud IH 3 ml [id number] PRN Administration Shortness of Breath Benzonatate 100 mg 04/14/18 10:00 04/16/18 09:18 Tessalon Perles PO 100 mg TID EDSON Administration Doxycycline Hyclate 100 mg 04/14/18 11:02 04/16/18 09:18 Doryx PO 04/23/18 11:03 100 mg Q12 EDSON Administration Protocol Enoxaparin Sodium 40 mg 04/14/18 10:00 04/16/18 09:19 Lovenox SC 40 mg DAILY EDSON Administration Protocol Clindamycin Phosphate 900 mg/ 106 mls @ 106 mls/hr 04/14/18 06:00 04/16/18 05 :29 Sodium Chloride IVPB 106 mls/hr Q8 EDSON Administration Protocol Dobutamine HCl/Dextrose 500 mg in 250 mls @ 3.827 mls/hr 04/16/18 08:16 Dobutamine/Dextrose 5% 500mg/250ml IV .Q24H PRN TITRATE PER PROTOCOL Protocol 2.5 MCG/KG/MIN Methadone HCl 70 mg 04/14/18 17:15 04/16/18 09:23 Methadone PO 70 mg DAILY EDSON Administration Mirtazapine 30 mg 04/14/18 22:00 04/15/18 21:32 Remeron PO 30 mg HS EDSON Administration Mupirocin 1 gm 04/15/18 18:00 04/16/18 09:25 Bactroban Ointment NS 04/20/18 10:01 1 applic BID EDSON Administration Pantoprazole Sodium 40 mg 04/15/18 06:00 04/16/18 05:29 Protonix Ec Tab PO 40 mg 0600 EDSON Administration Prednisone 40 mg 04/16/18 22:00 Prednisone Tab PO Q12 EDSON Primaquine Phosphate 26.3 mg 04/14/18 10:00 04/16/18 09:23 Primaquine PO 26.3 mg DAILY EDSON Administration Protocol - Patient Studies Lab Studies: Microbiology Studies 04/14/18 03:25 MRSA Culture (Admit) - Final [facility] Lab Studies 04/16/18 04/16/18 04/14/18 Range/Units 06:35 06:35 05:50 WBC 7.9 D (4.5-11.0) 10^3/ul RBC 3.76 (3.5-6.1) 10^6/uL Hgb 10.2 L (12.0-16.0) g/dL Hct 32.3 L (36.0-48.0) % MCV 85.9 (80.0-105.0) fl MCH 27.1 (25.0-35.0) pg MCHC 31.6 (31.0-37.0) g/dl RDW 19.5 H (11.5-14.5) % Plt Count 62 L (120.0-450.0) 10^3/uL MPV 10.3 (7.0-11.0) fl Gran % 89.4 H (50.0-68.0) % Lymph % (Auto) 5.1 L (22.0-35.0) % Pike % (Auto) 5.4 (1.0-6.0) % Eos % (Auto) 0.0 L (1.5-5.0) % Baso % (Auto) 0.1 (0.0-3.0) % Gran # 7.08 H (1.4-6.5) Lymph # (Auto) 0.4 L (1.2-3.4) Pike # (Auto) 0.4 (0.1-0.6) Eos # (Auto) 0.0 (0.0-0.7) Baso # (Auto) 0.01 (0.0-2.0) K/mm3 Sodium 142 (132-148) mmol/L Potassium 4.6 (3.6-5.0) mmol/L Chloride 110 H (98-107) mmol/L Carbon Dioxide 29 (21-33) mmol/L Anion Gap 8 L (10-20) BUN 25 H (7-21) mg/dL Creatinine 0.8 (0.7-1.2) mg/dl Est GFR ( Amer) > 60 Est GFR (Non-Af Amer) > 60 Random Glucose 95 (70-110) mg/dL Calcium 7.1 L (8.4-10.5) mg/dL Total Bilirubin 0.2 (0.2-1.3) mg/dL AST 785 H D (14-36) U/L ALT 243 H (7-56) U/L Alkaline Phosphatase 185 H D (38-126) U/L Total Protein 4.8 L (5.8-8.3) g/dL Albumin 1.7 L (3.0-4.8) g/dL Globulin 3.1 gm/dL Albumin/Globulin Ratio 0.6 L (1.1-1.8) CMV IgM Ab <30.00 AU/mL Laboratory Results - last 24 hr 04/14/18 04/16/18 04/16/18 05:50 06:35 06:35 WBC 7.9 D RBC 3.76 Hgb 10.2 L Hct 32.3 L MCV 85.9 MCH 27.1 MCHC 31.6 RDW 19.5 H Plt Count 62 L MPV 10.3 Gran % 89.4 H Lymph % (Auto) 5.1 L Pike % (Auto) 5.4 Eos % (Auto) 0.0 L Baso % (Auto) 0.1 Gran # 7.08 H Lymph # (Auto) 0.4 L Pike # (Auto) 0.4 Eos # (Auto) 0.0 Baso # (Auto) 0.01 Sodium 142 Potassium 4.6 Chloride 110 H Carbon Dioxide 29 Anion Gap 8 L BUN 25 H Creatinine 0.8 Est GFR ( Amer) > 60 Est GFR (Non-Af Amer) > 60 Random Glucose 95 Calcium 7.1 L Total Bilirubin 0.2 AST 785 H D ALT 243 H Alkaline Phosphatase 185 H D Total Protein 4.8 L Albumin 1.7 L Globulin 3.1 Albumin/Globulin Ratio 0.6 L CMV IgM Ab <30.00 Fingerstick Blood Sugar Results: 229 Critical Care Progress Note - Nutrition Nutrition: Nutrition Category Date Time Status Heart Healthy Diet [DIET] Diets 04/14/18 Breakfast Active Assessment/Plan - Assessment and Plan (Free Text) Assessment: 37 year old female initially under ICU management for Septic Shock with Multiorgan failure - Acute Hypoxemic Respiratory Failure, RCHF, Acute NSTEMI, Shock Liver Assessment: Liver Failure with transaminitis likely 2/2 Hep C VS Septic Shock RCHF 2/2 Pulm HTN (RVSP of 45) likely due to COPD Pancytopenia with Neutropenia Elevated Troponins - likely Type II AL CAP vs PCP vs Mixed Picture in the setting of Full-Blown AIDS Prolonged QTc AIDS Hep C R/O TB Plan: Neuro - Pain control - monitor carefully in setting of methadone use - 1/2 dose of methadone, patient tolerating well, monitor for withdrawal Pulm - Keep patient on HF NC; currently at 59L, satting well - SaO2 above 90 - Duoneb PRN - Solumedrol 30 Q12 - changed to PO prednisone (calculated dose is 38, was changed to 40 q12 - Tessalon Pearles 100 TID - Improving with Clinda and Primaquine, indicating PCP PNA correct diagnosis; to rule out TB, would need a bronchoscopy, but patient refused this procedure CV - Wean levophed - Aspirin 81mg PO Daily GI - Protonix for prophylaxis - Continue to trend AST/ALT - trending down - replete electrolyte PRN. - U/O 1776 hold fuentes; Monitor I/O HEME - D/C neutropenic precautions for now - Lovenox for DVT PPX ID - AIDS/HepC Non compliant with medications possibly due to access - Pending HIV and Hep C Viral load - Primaquine PO (day 3), IV clindamycine (day 3) and doxycycline (day 2) - AFP x 1; d/c airborne precautions - ARCELIA treatment because risk of infection is high when CD4<10. Continue toxo prophylaxis. Continue PCP PNA treatment Endo - Maintain Euglycemia Dispo: Patient is stable for transfer to [facility] <Simeon Sheridan - Last Filed: 04/16/18 16:11> CCU Objective - Vital Signs / Intake & Output Vital Signs (Last 4 hours): Vital Signs Pulse Resp Pulse Ox 04/16/18 13:12 14 04/16/18 13:00 83 14 95 Intake and Output (Last 8hrs): Intake & Output 04/16/18 04/16/18 04/16/18 06:59 14:59 22:59 Intake Total 1320 640 0 Output Total 1300 1100 0 Balance 20 -460 0 Intake: IV 1200 400 0.9 1000 400 abx 200 Oral 120 240 0 Tube Feeding 0 TPN/PPN 0 Blood Product 0 Lipid 0 Albumin 0 Other 0 Output: Urine 1300 1100 0 Urine, Voided 1300 1100 0 Stool 0 Urine/Stool Mix 0 Emesis 0 Oral Regurgitation 0 Other 0 Other: # Voids Urine, Voided 2 2 # Bowel Movements 0 0 0 - Medications Active Medications: Active Medications Generic Name Dose Route Start Last Admin Trade Name Freq PRN Reason Stop Dose Admin Albuterol/Ipratropium 3 ml 04/14/18 10:42 04/15/18 07:25 Duoneb 3 Mg/0.5 Mg (3 Ml) Ud IH 3 ml [id number] PRN Administration Shortness of Breath Benzonatate 100 mg 04/14/18 10:00 04/16/18 15:18 Tessalon Perles PO 100 mg TID EDSON Administration Doxycycline Hyclate 100 mg 04/14/18 11:02 04/16/18 09:18 Doryx PO 04/23/18 11:03 100 mg Q12 EDSON Administration Protocol Enoxaparin Sodium 40 mg 04/14/18 10:00 04/16/18 09:19 Lovenox SC 40 mg DAILY EDSON Administration Protocol Clindamycin Phosphate 900 mg/ 106 mls @ 106 mls/hr 04/14/18 06:00 04/16/18 14 :08 Sodium Chloride IVPB 106 mls/hr Q8 EDSON Administration Protocol Methadone HCl 70 mg 04/14/18 17:15 04/16/18 09:23 Methadone PO 70 mg DAILY EDSON Administration Mirtazapine 30 mg 04/14/18 22:00 04/15/18 21:32 Remeron PO 30 mg HS EDSON Administration Mupirocin 1 gm 04/15/18 18:00 04/16/18 09:25 Bactroban Ointment NS 04/20/18 10:01 1 applic BID EDSON Administration Pantoprazole Sodium 40 mg 04/15/18 06:00 04/16/18 05:29 Protonix Ec Tab PO 40 mg 0600 EDSON Administration Prednisone 40 mg 04/16/18 22:00 Prednisone Tab PO Q12 EDSON Primaquine Phosphate 26.3 mg 04/14/18 10:00 04/16/18 09:23 Primaquine PO 26.3 mg DAILY EDSON Administration Protocol - Patient Studies Lab Studies: Microbiology Studies 04/14/18 03:25 MRSA Culture (Admit) - Final [facility] Lab Studies 04/16/18 04/16/18 Range/Units 06:35 06:35 WBC 7.9 D (4.5-11.0) 10^3/ul RBC 3.76 (3.5-6.1) 10^6/uL Hgb 10.2 L (12.0-16.0) g/dL Hct 32.3 L (36.0-48.0) % MCV 85.9 (80.0-105.0) fl MCH 27.1 (25.0-35.0) pg MCHC 31.6 (31.0-37.0) g/dl RDW 19.5 H (11.5-14.5) % Plt Count 62 L (120.0-450.0) 10^3/uL MPV 10.3 (7.0-11.0) fl Gran % 89.4 H (50.0-68.0) % Lymph % (Auto) 5.1 L (22.0-35.0) % Pike % (Auto) 5.4 (1.0-6.0) % Eos % (Auto) 0.0 L (1.5-5.0) % Baso % (Auto) 0.1 (0.0-3.0) % Gran # 7.08 H (1.4-6.5) Lymph # (Auto) 0.4 L (1.2-3.4) Pike # (Auto) 0.4 (0.1-0.6) Eos # (Auto) 0.0 (0.0-0.7) Baso # (Auto) 0.01 (0.0-2.0) K/mm3 Sodium 142 (132-148) mmol/L Potassium 4.6 (3.6-5.0) mmol/L Chloride 110 H (98-107) mmol/L Carbon Dioxide 29 (21-33) mmol/L Anion Gap 8 L (10-20) BUN 25 H (7-21) mg/dL Creatinine 0.8 (0.7-1.2) mg/dl Est GFR ( Amer) > 60 Est GFR (Non-Af Amer) > 60 Random Glucose 95 (70-110) mg/dL Calcium 7.1 L (8.4-10.5) mg/dL Total Bilirubin 0.2 (0.2-1.3) mg/dL AST 785 H D (14-36) U/L ALT 243 H (7-56) U/L Alkaline Phosphatase 185 H D (38-126) U/L Total Protein 4.8 L (5.8-8.3) g/dL Albumin 1.7 L (3.0-4.8) g/dL Globulin 3.1 gm/dL Albumin/Globulin Ratio 0.6 L (1.1-1.8) Laboratory Results - last 24 hr 04/16/18 04/16/18 06:35 06:35 WBC 7.9 D RBC 3.76 Hgb 10.2 L Hct 32.3 L MCV 85.9 MCH 27.1 MCHC 31.6 RDW 19.5 H Plt Count 62 L MPV 10.3 Gran % 89.4 H Lymph % (Auto) 5.1 L Pike % (Auto) 5.4 Eos % (Auto) 0.0 L Baso % (Auto) 0.1 Gran # 7.08 H Lymph # (Auto) 0.4 L Pike # (Auto) 0.4 Eos # (Auto) 0.0 Baso # (Auto) 0.01 Sodium 142 Potassium 4.6 Chloride 110 H Carbon Dioxide 29 Anion Gap 8 L BUN 25 H Creatinine 0.8 Est GFR ( Amer) > 60 Est GFR (Non-Af Amer) > 60 Random Glucose 95 Calcium 7.1 L Total Bilirubin 0.2 AST 785 H D ALT 243 H Alkaline Phosphatase 185 H D Total Protein 4.8 L Albumin 1.7 L Globulin 3.1 Albumin/Globulin Ratio 0.6 L Critical Care Progress Note - Nutrition Nutrition: Nutrition Category Date Time Status Heart Healthy Diet [DIET] Diets 04/14/18 Breakfast Active Attending/Attestation - Attestation I have personally seen and examined this patient.: Yes I have fully participated in the care of the patient.: Yes I have reviewed all pertinent clinical information: Yes Notes (Text): 04/16/18 16:[address] Sheridan note
--- NOTE | 2018-04-16 13:56 | PN ---
DATE: 04/15/2018 REASON FOR DICTATION: Covering Dr. Dodson. REASON FOR CONSULTATION: Shortness of breath, biventricular failure, respiratory insufficiency. SUBJECTIVE: Patient is lying flat on the bed. Denies any chest pain, shortness of breath, any palpitation. OBJECTIVE: GENERAL: Not in apparent distress. Complaining of pain from withdrawal and needs methadone. VITAL SIGNS: Temperature afebrile, heart rate 77, blood pressure 92/61. HEENT: PERRLA, extraocular muscles intact. NECK: Supple. No carotid bruit. No thyromegaly. CHEST: Clear to auscultation. HEART: S1 and S2, regular. ABDOMEN: Soft. EXTREMITIES: Clubbing and cyanosis negative. LABORATORY DATA: Blood workup as follows, WBC 7.9, hemoglobin 10.2, hematocrit 32.3, platelet count 62. Chemistry shows sodium 142, potassium 4.3, chloride , carbon dioxide 29, anion gap of 18, BUN 28, creatinine 0.5. Troponin 0.23, 0.22, and 0.12. Total protein 4.8, albumin 1, albumin globulin ratio 0.6. Repeat echo of 04/14/2018 shows systolic function is moderately impaired, 35%; trace aortic regurgitation; trace mitral regurgitation; mild tricuspid regurgitation, trace pericardial effusion. 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 Left ventricle appears dilated. Left ventricular function is mildly reduced. 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 Given these findings, the patient is asymptomatic, borderline troponin positive, probably we will treat medically. Most likely, this is secondary to cardiomyopathy, human immunodeficiency virus related. Continue broad-spectrum antibiotics as per Infectious Disease. Continue deep vein thrombosis prophylaxis. Monitor troponin. Troponin is trending down. We will follow with you. No other complaint. We will transfer care on Wednesday to Dr. Dodson. We will use diuretics p.r.n. as blood pressure is tolerated. The patient is currently on Dobutrex 2.5 mcg, started by Dr. Sheridan. Once the blood pressure is stabilized, we can use p.r.n. diuretics low dose. Thank you, Dr. Bhatti, for providing us the opportunity in taking care of Veronica Ruiz. Cara Veliz MD
--- NOTE | 2018-04-16 14:13 | PN ---
DATE: 04/16/2018 SUBJECTIVE: The patient is seen and examined at bedside. She is fairly comfortable; however, is still complaining of some shortness of breath and some muscle aches. She is on high-flow oxygen with FiO2 54% and flow 50 liters per minute. OBJECTIVE: VITAL SIGNS: Blood pressure 123/80, her oxygen saturation 96%, respiratory rate 18, heart rate 80. ENT: Head and neck atraumatic. LUNGS: Clear auscultation bilaterally. HEART: Regular rhythm and rate. S1, S2 normal. ABDOMEN: Soft, nontender, nondistended. MUSCULOSKELETAL: No C/C/E. NEUROLOGICAL: The patient moves all extremities spontaneously. SKIN: Moist. PSYCHIATRIC: The patient is alert, awake and oriented x3. LABORATORY DATA: WBC 7.9, hemoglobin 10.2, platelet count 62. Sodium 142, potassium 4.6, chloride 110, BUN 25, creatinine 0.8, AST 785 down from 1420, ALT 243 down from 343, total bilirubin 0.2 and procalcitonin 0.31. MEDICATIONS: DuoNeb p.r.n., clindamycin, dobutamine, Doryx, Lovenox, methadone, Solu-Medrol 40 mg IV every 12 hours, Remeron, norepinephrine, Protonix, primaquine, normal saline 100 mL/hour. ASSESSMENT AND PLAN: This is a 37-year-old lady who appears to present with pneumocystis carinii pneumonia and has been treated with primaquine and clindamycin by Infectious Disease service for it. The patient is also on small dose of steroids. The patient appears to be doing somewhat better. However, still requires high-flow oxygen supplementation with FiO2 54% and flow rate 50 liters per minute. The patient tolerates oral nutrition well. She also drinks water. When she sleeps, her blood pressure trends down a little bit; however, when she is awake, her blood pressure comes back to systolic 110, 120. The patient does not appear to have any end-organ dysfunction related to blood pressure fluctuation. We will maintain mean arterial pressure more than 65. Avoid hyperchloremia and nephrotoxins. We will continue with DVT, GI prophylaxes. Okay to downgrade to Telemetry. ccm time 40 min Simeon Sheridan MD KATHERINE
[2018-04-17] MEDS: Pantoprazole 40 mg EC Tab PO SCH (05:00)
[2018-04-17 05:48] LABS: GRAN # 5.52 (1.4-6.5); HEMOGLOBIN 10.5 g/dL (12.0-16.0); LYMPH # 0.5 (1.2-3.4); LYMPH % 7.3 % (22.0-35.0); MEAN CELL VOLUME 86.3 fl (80.0-105.0); MEAN CORPUSCULAR HEMOGLOBIN 27.1 pg (25.0-35.0); MEAN CORPUSCULAR HGB CONC 31.4 g/dl (31.0-37.0); MONO # 0.2 (0.1-0.6); MONO % 3.7 % (1.0-6.0); PLATELET COUNT 58 10^3/uL (120.0-450.0); RBC 3.87 10^6/uL (3.5-6.1); RED CELL DISTRIBUTION WIDTH 19.1 % (11.5-14.5); WHITE BLOOD COUNT 6.2 10^3/ul (4.5-11.0)
[2018-04-17 06:04] LABS: ALB/GLOB RATIO 0.6 (1.1-1.8); ALT/SGPT 211 U/L (7-56); AST/SGOT 556 U/L (14-36); BLOOD UREA NITROGEN 24 mg/dL (7-21); CALCIUM 7.6 mg/dL (8.4-10.5); GFR AFRICAN-AMERICAN > 60; GFR NON-AFRICAN AMERICAN > 60
--- NOTE | 2018-04-17 09:59 | CP.PCM.PN ---
<AnneGricel - Last Filed: 04/17/18 14:10> Subjective - Date & Time of Evaluation Date of Evaluation: 04/17/18 Time of Evaluation: 07:30 - Subjective Subjective: Gricel Rodríguez DO PGY1 - IM Progress Note for Dr. Aguirre Patient seen and examined at bedside in the ICU. Per nursing staff, no acute events overnight. Patient seen sitting up in bed, appears more comfortable, speaking in full sentences, eating breakfast. She continues to complain of difficulty breathing, cough, and wheeze, but improved since yesterday. She is also complaining of back pain and bilateral leg pain, which she has had for a long time. She denies chest pain, palpitations, fever, chills, nausea, vomiting , diarrhea. She has not had a bowel movement in 4 days, though she normally only has 1-2 BMs per week. She declined stool softeners or laxatives. Objective - Vital Signs/Intake and Output Vital Signs (last 24 hours): Temp Pulse Resp BP Pulse Ox 97.5 F L 64 62 H 95/69 L 100 04/17/18 06:15 04/17/18 07:00 04/17/18 07:18 04/17/18 06:00 04/17/18 07:00 Intake and Output: 04/17/18 04/17/18 06:59 18:59 Intake Total 320 Output Total 1200 Balance -880 - Medications Medications: Current Medications Albuterol/Ipratropium (Duoneb 3 Mg/0.5 Mg (3 Ml) Ud) 3 ml IH [id number] PRN PRN Reason: Shortness of Breath Last Admin: 04/15/18 07:25 Dose: 3 ml Benzonatate (Tessalon Perles) 100 mg PO TID [facility] Last Admin: 04/16/18 17:36 Dose: 100 mg Doxycycline Hyclate (Doryx) 100 mg PO Q12 [facility] PRN Reason: Protocol Stop: 04/23/18 11:03 Last Admin: 04/16/18 21:06 Dose: 100 mg Enoxaparin Sodium (Lovenox) 40 mg SC DAILY [facility] PRN Reason: Protocol Last Admin: 04/16/18 09:19 Dose: 40 mg Methadone HCl (Methadone) 70 mg PO DAILY [facility] Last Admin: 04/16/18 09:23 Dose: 70 mg Mirtazapine (Remeron) 30 mg PO HS [facility] Last Admin: 04/16/18 21:06 Dose: 30 mg Mupirocin (Bactroban Ointment) 1 gm NS BID [facility] Stop: 04/20/18 10:01 Last Admin: 04/16/18 17:36 Dose: 1 applic Pantoprazole Sodium (Protonix Ec Tab) 40 mg PO 0600 [facility] Last Admin: 04/17/18 05:00 Dose: 40 mg Prednisone (Prednisone Tab) 40 mg PO Q12 [facility] Last Admin: 04/16/18 21:06 Dose: 40 mg Primaquine Phosphate (Primaquine) 26.3 mg PO DAILY [facility] PRN Reason: Protocol Last Admin: 04/16/18 09:23 Dose: 26.3 mg - Labs Labs: 04/17/18 05:30 04/17/18 05:30 PT 11.0 SECONDS (9.4-12.5) 04/13/18 18:09 INR 0.97 (0.93-1.08) 04/13/18 18:09 - Additional Findings Additional findings: - Constitutional Appears: Unkempt, Older Than Stated Age, Chronically Ill, sitting up, eating breakfast, appears tired, much more alert than yesterday - Head Exam Head Exam: ATRAUMATIC, NORMAL INSPECTION, NORMOCEPHALIC - Eye Exam Eye Exam: EOMI - Respiratory Exam Respiratory Exam: Diffuse rhonchi, worst in RUL. absent: Wheezes, Stridor - Cardiovascular Exam Cardiovascular Exam: REGULAR RHYTHM, +S1, +S2 - GI/Abdominal Exam GI & Abdominal Exam: Soft, Normal Bowel Sounds. absent: Rigid, Tenderness - Extremities Exam Extremities Exam: Full ROM. absent: Calf Tenderness, Tenderness - Neurological Exam Neurological Exam: Awake, Oriented x3 Neuro motor strength exam: Left Upper Extremity: 5, Right Upper Extremity: 5, Left Lower Extremity: 5, Right Lower Extremity: 5 - Psychiatric Exam Psychiatric exam: Depressed, Flat Affect - Skin Skin Exam: Dry, Intact Assessment and Plan - Assessment and Plan (Free Text) Assessment: 37 year old female with past medical history HIV, AIDS last known CD4 count <20 hx of PCP, Hepatitis C, COPD, heroin user on methadone, who recently was treated for PCP by Dr. Chou. Patient monitored in ICU for hypotension and tachycardia. Off HFNC to 3L by regular nasal cannula Plan: 1. Septic vs cardiogenic shock - shock state resolved - Patient with right sided heart failure secondary to higher pulm HTN(RSVP 45) as per echo from 01/2018 and LVEF 35% - Off pressors x36 hours, no further episodes of hypotension - Hx of PCP dx with low CD4 count; leukopenia resolved - CMV Ab and legionella negative; mycoplasma, s. pneumo pending - Fungitell (beta-glucan) positive; implicating PCP pneumonia; continue current abx regimen - Blood, urine cultures negative 2. Pneumonia in setting of AIDS with last known CD4 <20 - Likely PCP, previous dx and ?completed treatment - Allergry to Bactrim, PCN, levofloxacin - Primaquine, Clinda, and Doxy Day 3 to complete 14-21 days per ID - Treating for ARCELIA and toxoplasmosis prophylasis, PCP tx 3. COPD - CXR showing right interstitial infiltrate, cephalization, hyperinflation - Chest CT: diffuse bronchitis, scattered ground glass air space opacities and air-trapping. Stable nodules in the superior segment of the left lower lobe, stable mediastinal lymphadenopathy with evidence of prior granulomatous disease. - IV solumedrol 30 BID - Duoneb prn - BiPAP at night - Maintain SaO2 >90% 4. AIDS - Last known CD4 count <20, previous dx of PCP - Non-compliant with HAART therapy - Infectious disease consulted, follow up recs 5. Transaminitis; improving - Etiology: Shock vs. drugs vs. medication - Previous history of Hepatitis C reactivity - Maintain MAP >65, IVF, hold hepatotoxic medications 6. History of opiate abuse, now on methadone - Patient [facility] - Has been tolerating 70mg daily for the past few days, but now she is more awake/alert, and is complaining of diffuse pain, uncontrolled - No signs of withdrawal, low COWS score. - Continue current methadone dose GI/DVT ppx - Lovenox, continue to watch thrombocytopenia - protonix Dispo: Patient will follow up with Dr. Carter Case and plan discussed with attending <Dyllan Aguirre - Last Filed: 04/17/18 14:53> Objective - Vital Signs/Intake and Output Vital Signs (last 24 hours): Temp Pulse Resp BP Pulse Ox 97.5 F L 74 15 103/50 L 96 04/17/18 12:00 04/17/18 14:00 04/17/18 14:00 04/17/18 14:00 04/17/18 14:00 Intake and Output: 04/17/18 04/17/18 06:59 18:59 Intake Total 320 Output Total 1200 Balance -880 - Medications Medications: Current Medications Albuterol/Ipratropium (Duoneb 3 Mg/0.5 Mg (3 Ml) Ud) 3 ml IH [id number] PRN PRN Reason: Shortness of Breath Last Admin: 04/15/18 07:25 Dose: 3 ml Benzonatate (Tessalon Perles) 100 mg PO TID [facility] Last Admin: 04/17/18 14:06 Dose: 100 mg Doxycycline Hyclate (Doryx) 100 mg PO Q12 [facility] PRN Reason: Protocol Stop: 04/23/18 11:03 Last Admin: 04/17/18 10:00 Dose: 100 mg Enoxaparin Sodium (Lovenox) 40 mg SC DAILY [facility] PRN Reason: Protocol Last Admin: 04/17/18 10:43 Dose: 40 mg Methadone HCl (Methadone) 100 mg PO DAILY [facility] Mirtazapine (Remeron) 30 mg PO HS [facility] Last Admin: 04/16/18 21:06 Dose: 30 mg Mupirocin (Bactroban Ointment) 1 gm NS BID [facility] Stop: 04/20/18 10:01 Last Admin: 04/17/18 10:00 Dose: 1 applic Pantoprazole Sodium (Protonix Ec Tab) 40 mg PO 0600 [facility] Last Admin: 04/17/18 05:00 Dose: 40 mg Polyethylene Glycol (Miralax) 17 gm PO BID [facility] Last Admin: 04/17/18 10:58 Dose: 17 gm Prednisone (Prednisone Tab) 40 mg PO Q12 [facility] Last Admin: 04/17/18 10:00 Dose: 40 mg - Labs Labs: 04/17/18 05:30 04/17/18 05:30 PT 11.0 SECONDS (9.4-12.5) 04/13/18 18:09 INR 0.97 (0.93-1.08) 04/13/18 18:09 Attending/Attestation - Attestation I have personally seen and examined this patient.: Yes I have fully participated in the care of the patient.: Yes I have reviewed all pertinent clinical information, including history, physical exam and plan: Yes Notes (Text): 04/17/18 14:51 Patient seen and examined independently at bedside. Vitals, labs and orders reviewed. She feels better today and reports improvement in her breathing. Methadone dose to be increased today. No overnight issues. multi-speciality follow up ongoing and agree with downgrade to medical floor. Agree with the plan as discussed and outlined by the resident.
[2018-04-17] MEDS: Mupirocin 2% Ointment 15 GM TUBE NS SCH ×2 (10:00→17:35)
[2018-04-17] MEDS: Primaquine 26.3 mg Tab PO SCH (10:00)
[2018-04-17] MEDS: Enoxaparin 40 mg Syringe SC SCH (10:43)
[2018-04-17] MEDS: POLYETHYLENE GLYCOL 3350 17 GM/Dose PACKET PO SCH ×2 (10:58→17:36)
--- NOTE | 2018-04-17 11:21 | CP.PCM.PN ---
Subjective - Date & Time of Evaluation Date of Evaluation: 04/17/18 Time of Evaluation: 09:20 - Subjective Subjective: Patient is breathing better today, less oxygen requirements, no fevers, less cough, no chest pain, not on vasopressor support anymore. Objective - Vital Signs/Intake and Output Vital Signs (last 24 hours): Temp Pulse Resp BP Pulse Ox 97.5 F L 64 62 H 95/69 L 100 04/17/18 06:15 04/17/18 07:00 04/17/18 07:18 04/17/18 06:00 04/17/18 07:00 Intake and Output: 04/17/18 04/17/18 06:59 18:59 Intake Total 320 Output Total 1200 Balance -880 - Medications Medications: Current Medications Albuterol/Ipratropium (Duoneb 3 Mg/0.5 Mg (3 Ml) Ud) 3 ml IH [id number] PRN PRN Reason: Shortness of Breath Last Admin: 04/15/18 07:25 Dose: 3 ml Benzonatate (Tessalon Perles) 100 mg PO TID [facility] Last Admin: 04/16/18 17:36 Dose: 100 mg Doxycycline Hyclate (Doryx) 100 mg PO Q12 [facility] PRN Reason: Protocol Stop: 04/23/18 11:03 Last Admin: 04/16/18 21:06 Dose: 100 mg Enoxaparin Sodium (Lovenox) 40 mg SC DAILY [facility] PRN Reason: Protocol Last Admin: 04/16/18 09:19 Dose: 40 mg Methadone HCl (Methadone) 70 mg PO DAILY [facility] Last Admin: 04/16/18 09:23 Dose: 70 mg Mirtazapine (Remeron) 30 mg PO HS [facility] Last Admin: 04/16/18 21:06 Dose: 30 mg Mupirocin (Bactroban Ointment) 1 gm NS BID [facility] Stop: 04/20/18 10:01 Last Admin: 04/16/18 17:36 Dose: 1 applic Pantoprazole Sodium (Protonix Ec Tab) 40 mg PO 0600 [facility] Last Admin: 04/17/18 05:00 Dose: 40 mg Prednisone (Prednisone Tab) 40 mg PO Q12 [facility] Last Admin: 04/16/18 21:06 Dose: 40 mg Primaquine Phosphate (Primaquine) 26.3 mg PO DAILY [facility] PRN Reason: Protocol Last Admin: 04/16/18 09:23 Dose: 26.3 mg - Labs Labs: 04/17/18 05:30 04/17/18 05:30 PT 11.0 SECONDS (9.4-12.5) 04/13/18 18:09 INR 0.97 (0.93-1.08) 04/13/18 18:09 - Constitutional Appears: Cachectic, Chronically Ill - Head Exam Head Exam: NORMAL INSPECTION - ENT Exam ENT Exam: Mucous Membranes Moist - Neck Exam Neck Exam: absent: Lymphadenopathy, Meningismus - Respiratory Exam Respiratory Exam: Decreased Breath Sounds - Cardiovascular Exam Cardiovascular Exam: +S1, +S2 - GI/Abdominal Exam GI & Abdominal Exam: Soft. absent: Tenderness Assessment and Plan - Assessment and Plan (Free Text) Plan: Assessment severe sepsis with respiratory failure probably due to pneumocystis pneumonia R/ O atypical pneumonia, unlikely TB HIV/AIDS with last CD4 count <20, non-compliant with her meds COPD chronic back pain history of IVDA hepatitis C infection Plan continue Clindamycin and Primaquine and should complete 14-21 days (day 4 today) beta glucan is elevated; serum Crypt Ag is negative, follow up urine Legionella Ag follow up sputum AFB, sputum cx, CMV PCR will continue to monitor clinically overall prognosis is poor ,
--- NOTE | 2018-04-17 13:50 | CARD ---
APPROVED REPORT EKG Measurement Heart [id number] <Conclusion> Sinus tachycardia Low voltage QRS Nonspecific T wave abnormality Abnormal ECG
--- NOTE | 2018-04-17 19:19 | PN ---
DATE: 04/17/2018 REASON FOR DICTATION: Covering Dr. Dodson. REASON FOR THE CONSULTATION: Shortness of breath, biventricular failure, respiratory insufficiency, HIV positive AIDS. SUBJECTIVE: The patient denies any chest pain. No shortness of breath, feels better and feels pain all over the body, needs methadone. PHYSICAL EXAMINATION VITAL SIGNS: Temperature is afebrile, heart rate of 75, blood pressure 95/66. HEENT: PERRLA. Extraocular muscles intact. NECK: Supple. No carotid bruits or thyromegaly. CHEST: Clear to auscultation. HEART: S1 and S2 regular. ABDOMEN: Soft. EXTREMITIES: Clubbing and cyanosis negative. LABORATORY DATA: Blood workup as follows; WBC 6.8, hemoglobin , hematocrit 33.4, platelet count 58. Chemistries shows sodium 141, potassium 4, chloride 107, carbon dioxide 30, anion gap of 7, BUN 24, creatinine 0.7. Telemetry normal sinus. 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 Give these findings, she is asymptomatic, borderline positive troponin, most likely probably secondary to hemodynamic instability. Suggest aggressive medical treatment. Continue deep venous thrombosis prophylaxis. Currently, the patient is on Dobutrex. She is going to wean off for left ventricular failure, biventricular failure. Continue methadone on methadone program. We will transfer care tomorrow to Dr. Dodson. Cara Veliz MD
[2018-04-18] MEDS: Pantoprazole 40 mg EC Tab PO SCH (05:30)
--- NOTE | 2018-04-18 08:28 | PN ---
DATE: 04/17/2018 SUBJECTIVE: The patient is seen and examined at bedside. She is comfortable. Her night was uneventful. She is requesting a full dose of her methadone. She is slightly lethargic; however, very easily arousable and maintaining her airways and continues conversation with adequate attention span. PHYSICAL EXAMINATION: VITAL SIGNS: Heart rate 96, oxygen saturation 100% on 40% of high-flow, respiratory rate 17, blood pressure 103/68. HEENT: Head and neck atraumatic. LUNGS: Clear to auscultation bilaterally. HEART: Regular rate and rhythm. S1 and S2 normal. ABDOMEN: Soft, nontender, nondistended. MUSCULOSKELETAL: There is some muscle wasting, but no C/C/E. NEUROLOGIC: The patient moves all extremities spontaneously. SKIN: Moist. PSYCHIATRIC: The patient is alert, awake, oriented, anxious about methadone. LABORATORY DATA: WBC 6.2, hemoglobin 10.5, platelet count 58. Sodium 141, potassium 4.8, chloride 107, carbon dioxide 31, BUN 24, creatinine 0.7, glucose 110, AST 556 down from 785, ALT 211 down from 243, total bilirubin 0.2. MEDICATIONS: DuoNeb p.r.n., Tessalon Perles, doxycycline, Lovenox 40 mg subcu daily, methadone 70 mg p.o. daily, Remeron , Protonix, prednisone 40 mg p.o. every 12 hours, primaquine. ASSESSMENT AND PLAN: This is a 37-year-old lady recovering from pneumocystis carinii pneumonia with substantial improvement in gas exchange and clinical parameters. She is off of pressors for more than 48 hours. She is alert, awake and oriented x3. She tolerates oral nutrition. She will be switched from high flow to nasal cannula. She does have some mild biventricular insufficiency. Cardiology service is following her as well. At present time, the patient is stable to go for telemetry or remote telemetry. I would continue target euvolemia, euglycemia, normothermia and oxygen saturation more than 90%. I will continue with DVT and GI prophylaxis. I would continue with steroid taper and Primaquine/clindamycin ( ID will adjust her regimen in this regard). ccm time 40 min Simeon Sheridan MD KATHERINE
[2018-04-18] MEDS: Mupirocin 2% Ointment 15 GM TUBE NS SCH ×2 (09:29→17:21)
[2018-04-18] MEDS: Enoxaparin 40 mg Syringe SC SCH (09:30)
[2018-04-18] MEDS: POLYETHYLENE GLYCOL 3350 17 GM/Dose PACKET PO SCH ×2 (09:30→17:21)
--- NOTE | 2018-04-18 12:11 | CP.PCM.PN ---
Subjective - Date & Time of Evaluation Date of Evaluation: 04/18/18 Time of Evaluation: 09:20 - Subjective Subjective: Patient is breathing better but cough persists (although a little better), no fevers, no diarrhea. Objective - Vital Signs/Intake and Output Vital Signs (last 24 hours): Temp Pulse Resp BP Pulse Ox 97.9 F 76 18 99/65 L 99 04/17/18 23:48 04/18/18 05:47 04/18/18 05:00 04/18/18 04:00 04/18/18 05:00 Intake and Output: 04/17/18 04/18/18 18:59 06:59 Intake Total 720 Output Total 1120 Balance -400 - Medications Medications: Current Medications Albuterol/Ipratropium (Duoneb 3 Mg/0.5 Mg (3 Ml) Ud) 3 ml IH [id number] PRN PRN Reason: Shortness of Breath Last Admin: 04/15/18 07:25 Dose: 3 ml Benzonatate (Tessalon Perles) 100 mg PO TID [facility] Last Admin: 04/17/18 17:34 Dose: 100 mg Doxycycline Hyclate (Doryx) 100 mg PO Q12 [facility] PRN Reason: Protocol Stop: 04/23/18 11:03 Last Admin: 04/17/18 21:16 Dose: 100 mg Enoxaparin Sodium (Lovenox) 40 mg SC DAILY [facility] PRN Reason: Protocol Last Admin: 04/17/18 10:43 Dose: 40 mg Methadone HCl (Methadone) 100 mg PO DAILY [facility] Mirtazapine (Remeron) 30 mg PO HS [facility] Last Admin: 04/17/18 21:18 Dose: 30 mg Mupirocin (Bactroban Ointment) 1 gm NS BID [facility] Stop: 04/20/18 10:01 Last Admin: 04/17/18 17:35 Dose: 1 applic Pantoprazole Sodium (Protonix Ec Tab) 40 mg PO 0600 [facility] Last Admin: 04/18/18 05:30 Dose: 40 mg Polyethylene Glycol (Miralax) 17 gm PO BID [facility] Last Admin: 04/17/18 17:36 Dose: 17 gm Prednisone (Prednisone Tab) 40 mg PO Q12 [facility] Last Admin: 04/17/18 21:16 Dose: 40 mg - Labs Labs: 04/17/18 05:30 04/17/18 05:30 PT 11.0 SECONDS (9.4-12.5) 04/13/18 18:09 INR 0.97 (0.93-1.08) 04/13/18 18:09 - Constitutional Appears: Cachectic, Chronically Ill - Head Exam Head Exam: NORMAL INSPECTION - ENT Exam ENT Exam: Mucous Membranes Moist - Neck Exam Neck Exam: absent: Lymphadenopathy, Meningismus - Respiratory Exam Respiratory Exam: Decreased Breath Sounds - Cardiovascular Exam Cardiovascular Exam: +S1, +S2 - GI/Abdominal Exam GI & Abdominal Exam: Soft. absent: Tenderness Assessment and Plan - Assessment and Plan (Free Text) Plan: Assessment severe sepsis with respiratory failure probably due to pneumocystis pneumonia R/ O atypical pneumonia, unlikely TB HIV/AIDS with last CD4 count <20, non-compliant with her meds COPD chronic back pain history of IVDA hepatitis C infection Plan continue Clindamycin and Primaquine and should complete 14-21 days (day 5 today) beta glucan is elevated; serum Crypt Ag is negative, urine Legionella Ag is also negative follow up sputum AFB, CMV PCR will continue to monitor clinically overall prognosis is poor unless patient starts taking her HIV meds ,
--- NOTE | 2018-04-18 13:14 | PN ---
DATE: 04/18/2018 SUBJECTIVE: The patient is mildly short of breath. She denies any chest pain. OBJECTIVE: VITAL SIGNS: Blood pressure 99/65, heart rate 59, respirations 18, temperature 97.9. HEENT: Normocephalic. CHEST: Minimal basilar rhonchi. HEART: S1 and S2, regular. EXTREMITIES: No edema. LABORATORY DATA: Yesterday's hemoglobin and hematocrit 10.5 and 33.4, today's platelet count 58,000, white count is within normal limit. Yesterday's SMA-7 is within normal limit except for BUN of 24. Liver enzymes are still elevated, but significantly improved. ASSESSMENT: 1. Full blown acquired immune deficiency syndrome 2. Biventricular failure and pulmonary hypertension. 3. Improved leukopenia. 4. Thrombocytopenia. 4. Hepatitis. 6. Borderline troponin elevation. RECOMMENDATIONS: Continue current oral doxycycline. Continue methadone 100 mg once a day, Lovenox 20 mg subcutaneous once a day, prednisone 40 mg p.o. twice a day. Duncan Dodson MD
[2018-04-18] MEDS: Primaquine 26.3 mg Tab PO SCH (14:46)
[2018-04-19] MEDS: Pantoprazole 40 mg EC Tab PO SCH (06:30)
[2018-04-19] MEDS: Mupirocin 2% Ointment 15 GM TUBE NS SCH ×2 (10:40→18:21)
[2018-04-19] MEDS: Enoxaparin 40 mg Syringe SC SCH (10:40)
[2018-04-19] MEDS: Primaquine 26.3 mg Tab PO SCH (10:41)
[2018-04-19] MEDS: POLYETHYLENE GLYCOL 3350 17 GM/Dose PACKET PO SCH ×2 (10:42→18:19)
--- NOTE | 2018-04-19 12:10 | PN ---
DATE: 04/19/2018 FOLLOWUP SUBJECTIVE: The patient is short of breath. She denies any chest pain. PHYSICAL EXAMINATION: VITAL SIGNS: Blood pressure 109/77, heart rate 54, temperature 97.7, respirations 18. HEENT: Pale conjunctivae. CHEST: Bilateral rhonchi. HEART: S1 and S2 regular. EXTREMITIES: No edema. ASSESSMENT: 1. Right ventricular failure. 2. Severe sepsis. 3. Rule out atypical pneumonia. 4. Human immunodeficiency virus/acquired immune deficiency syndrome with CD count less than 20. 5. Hepatitis C. RECOMMENDATIONS: Continue IV clindamycin and oral doxycycline. Continue subcutaneous Lovenox 40 mg once a day, prednisone at 40 mg p.o. twice a day, primaquine 26.3 mg orally daily. Duncan Dodson MD
[2018-04-19 16:32] LABS: SOURCE: PLASMA
--- NOTE | 2018-04-20 00:51 | PN ---
DATE: 04/19/2018 SUBJECTIVE: Patient is seen earlier today in room 263, bed 2. Patient is comfortable, still mild shortness of breath, no chest pain. PHYSICAL EXAMINATION: GENERAL: Temperature is 97, blood pressure is 90/60, respiratory rate of 18, heart rate of 105. HEENT: Unremarkable. NECK: Supple. LUNGS: Have decreased breath sounds. HEART: Normal S1 and S2. ABDOMEN: Soft, nontender. LABORATORY EXAMINATION: Reveals a white count is 6.2, coagulation is noted. Chemistries are reviewed. are reviewed. Creatinine is noted. The LFTs are improving. Procalcitonin is 0.31. Toxicology is reviewed. Serology is noted. Patient is on beta positive at the level of 304. Elevated mycoplasma IgG and a negative IgM. Urine for Legionella antigen is negative. The CMV, DNA PCRs are undetectable. ASSESSMENT AND PLAN: This is a 37-year-old female with end-stage acquired immune deficiency syndrome with severe sepsis, respiratory failure with pneumocystis pneumonia, end-stage chronic obstructive lung disease, history of active intravenous drug abuser; currently on clindamycin, primaquine, day number 5. Patient appears to be improving. Cheikh Chou MD
[2018-04-20] MEDS: Pantoprazole 40 mg EC Tab PO SCH (06:14)
[2018-04-20] MEDS: Mupirocin 2% Ointment 15 GM TUBE NS SCH (09:25)
[2018-04-20] MEDS: Enoxaparin 40 mg Syringe SC SCH (09:27)
[2018-04-20] MEDS: POLYETHYLENE GLYCOL 3350 17 GM/Dose PACKET PO SCH (09:27)
[2018-04-20] MEDS: Primaquine 26.3 mg Tab PO SCH (10:45)
--- NOTE | 2018-04-20 11:52 | PN ---
DATE: 04/20/2018 SUBJECTIVE: The patient denies chest pain. She is mildly short of breath. PHYSICAL EXAMINATION: VITAL SIGNS: Blood pressure 123/75, heart rate , temperature 97.8, respirations 19. HEENT: Pale conjunctivae. CHEST: Bilateral rhonchi. HEART: S1 and S2 regular. EXTREMITIES: No edema. ASSESSMENT: 1. Biventricular failure. 2. Sepsis. 3. Human immunodeficiency virus positive. 4. Hepatitis C. RECOMMENDATIONS: Continue current IV clindamycin, subcutaneous Lovenox at 40 mg once a day, prednisone at 40 mg p.o. twice a day and primaquine at 26.3 mg p.o. daily. Duncan Dodson MD
--- NOTE | 2018-04-20 12:29 | PN ---
DATE: 04/20/2018 SUBJECTIVE: The patient was seen earlier this morning in room 263, bed 2. PHYSICAL EXAMINATION: HEENT: Examination is unremarkable. NECK: Supple. LUNGS: Have decreased breath sounds. HEART: Normal S1 and S2. ABDOMEN: Soft, nontender. LABORATORY EXAMINATION: Reviewed and which shows now white count of 6.2. Chemistries are noted. The LFTs are improving. Urinalysis is noted and serology is noted. ASSESSMENT AND PLAN: This is a 37-year-old female with end-stage acquired immune deficiency syndrome, severe sepsis with respiratory failure with pneumocystis carinii pneumonia, today is day #6 of clindamycin, primaquine and appears to be improving. Patient continues to improve, may be able to switch to p.o. Mepron 750 mg b.i.d. x21 days. Ideally, we would like to see the patient with pO2 of greater than 75 on room air prior to making that switch. Cheikh Chou MD
--- NOTE | 2018-04-20 16:53 | PN ---
DATE: 04/18/2018 LOCATION: In ICU. SUBJECTIVE: The patient is currently on IV antibiotic for PCP pneumonia. She seems stable, although she still has some dyspnea especially with exertion. She is still coughing and feeling weak. There is no nausea, no vomiting. OBJECTIVE: VITAL SIGNS: On 04/18/2018, her vital signs as follow: Temperature is 97.9, heart rate 67, blood pressure 96/63, respirations 15, saturating at 97%. HEAD AND NECK: Normal. No JVD. No thyromegaly. CHEST: There are bilateral crepitations and wheeze. CARDIAC: First sound and second sound normal. ABDOMEN: Soft, nontender. EXTREMITIES: Trace edema of both lower extremity. NEUROLOGIC: Normal. The patient is alert, awake, oriented x3, and moves all extremities. LABORATORY DATA: On 04/18/2018, we have some laboratory. White count 6.2, hemoglobin 10.5, hematocrit 33.4, platelets 58. Chemistry: Sodium 141, potassium 4.8, chloride 107, bicarb 31. BUN 24, creatinine 0.7. Liver functions test is normal ALT 211, and alkaline phos is 184. IMPRESSION AND PLAN: 1. Acute and recurrent Pneumocystis carinii pneumonia secondary to underlying acquired immune deficiency syndrome with noncompliance with human immunodeficiency virus medications leading to recurrent Pneumocystis carinii pneumonia. Plan is to continue current medication as per Infectious Disease. Chest x-ray shows minimal interstitial infiltrate in the right upper lung zone. Plan, continue current medications. 2. Human immunodeficiency virus cardiomyopathy. 3. Pulmonary hypertension associated with cardiomyopathy, low ejection fraction, probably human immunodeficiency virus related. The patient advised to follow up in a big hospital with expecting cardiomyopathy and has been advised several times. Seems noncompliant with any of human immunodeficiency virus medications. 4. History of drug abuse with methadone. She . We will continue on 40 mg daily. We will follow up mental status. 5. Chronic obstructive pulmonary disease exacerbations. Continue steroids. Continue current medication including clindamycin, doxycycline, primaquine, and DuoNeb. Continue Protonix. Continue Remeron and Tessalon Perles. Continue current medicine. 6. Human immunodeficiency virus. The patient should go back on all her human immunodeficiency virus medicine and follow up with Infectious Disease specialist. Continue current therapy. Follow up clinically. Macario Carter MD [facility] # [id number]
--- NOTE | 2018-04-21 06:36 | PN ---
DATE: 04/19/2018 SUBJECTIVE: The patient on medical floor. She is comfortable. She is asking about feeling withdrawal from methadone. She received 100 mg and she is asking for 50 mg. I did speak with the patient. She will need to cut dose of methadone because of associated liver disease and other medication also. She seems still feeling coughing, short of breath. No fever. No nausea. No vomiting. Feels ill. PHYSICAL EXAMINATION: On 04/19/2018 is as follows; VITAL SIGNS: Temperature 97, heart rate 59, blood pressure 101/64, respirations 18, sat 99%. HEAD AND NECK: Normal. No JVD. No thyromegaly. CHEST: Clear, but there are rales bilateral and there is some wheezing. CARDIAC: First sound and second sound normal. No murmur, rub or gallop. ABDOMEN: Soft, nontender. EXTREMITIES: Mild edema. NEUROLOGIC: Normal. LABORATORY DATA: Pending. Some serology including CMV, IgG was positive immune, IgM is negative. The patient has mycoplasma pneumonia. IgG is high, but IgM seems negative. The patient also had urine Legionella antigen, was negative. CMV DNA PCR was less than 200. IMPRESSION AND PLAN: 1. Pneumocystis carinii pneumonia plus underlying chronic obstructive pulmonary disease. Continue clindamycin 600 IV every 8 hours. Continue doxycycline 100 p.o. every 12 hours. Continue primaquine 26.3 mg p.o. daily. Continue Tessalon Perles and switch to prednisone 40 mg p.o. every 12 hours. Continue current therapy. Follow up clinically. 2. Human immunodeficiency virus cardiomyopathy, pulmonary hypertension. The patient needs to follow up in the clinic [facility]. 3. Chronic constipation, history of drug abuse. Continue methadone. We will reduce the methadone to 130 mg and we will see how she do. Continue GI and DVT prophylaxis. The patient seems stable. We will follow up clinically. Macario Carter MD
[2018-04-21] MEDS: Pantoprazole 40 mg EC Tab PO SCH (08:34)
[2018-04-21] MEDS: POLYETHYLENE GLYCOL 3350 17 GM/Dose PACKET PO SCH ×3 (10:00→17:21)
[2018-04-21] MEDS: Primaquine 26.3 mg Tab PO SCH (10:14)
[2018-04-21] MEDS: Enoxaparin 40 mg Syringe SC SCH (10:15)
--- NOTE | 2018-04-21 14:02 | PN ---
DATE: 04/20/2018 SUBJECTIVE: The patient feels weak, generalized weakness, but otherwise breathing is much better. She has no chest pain. No other complaints. She is getting methadone 140. She seems a little bit lethargic. She is, otherwise, stable. PHYSICAL EXAMINATION: VITAL SIGNS: On 04/20/2018, temperature 98.6, heart rate 71, blood pressure 100/67, respirations 18, satting 99%. HEAD AND NECK: Normal. No JVD. No thyromegaly. CHEST: Bilateral crackles in both lungs. CARDIAC: First sound and second sound normal. ABDOMEN: Soft, scaphoid. EXTREMITIES: No edema. NEUROLOGICAL: Moving all extremities. She is alert, awake, oriented x3. Normal. LABORATORY DATA: Last white count 6.2, hemoglobin 10.5, hematocrit 33.4, platelets 58. Sodium 141, potassium 4.8, chloride 107, bicarbonate 31, BUN 24, creatinine 0.7. Liver enzymes are improving, but still elevated, 556 is AST, ALT 211, alkaline phosphatase 184. IMPRESSION AND PLAN: 1. Pneumocystis carinii pneumonia. Continue IV clindamycin. Continue primaquine once a day and continue inhaled bronchodilator, Duoneb plus deep venous thrombosis prophylaxis and gastrointestinal prophylaxis. Seems stable on that. 2. Low appetite. Continue Remeron 30 mg at bedtime. 3. Drug abuse. Continue methadone at 140 mg, we will reduce it to 130. 4. Cardiomyopathy. Follow up with [facility]. Plan is to continue current therapy. The patient advised to follow up with [facility] for cardiomyopathy, which could be human immunodeficiency virus related. The patient was seen by data warehousing manager, Infectious Disease and advised to follow up. 5. Thrombocytopenia. Etiology, probably hepatitis C. I do not believe she does have a history of chronic hepatitis C, acquired immune deficiency and could be acquired immune deficiency syndrome related also and she needs to be followed up as outpatient with Hematology consult. We will continue current therapy. This is a very sick patient with comorbid illnesses and poor prognosis. Continue current therapy. Macario Carter MD
--- NOTE | 2018-04-21 16:04 | PN ---
DATE: 04/21/2018 SUBJECTIVE: The patient is in bed, in no acute distress, nontoxic. PHYSICAL EXAMINATION VITAL SIGNS: Temperature is 98, blood pressure is 107/80, respiratory rate of 18, heart rate of 78. HEENT: Unremarkable. NECK: Supple. LUNGS: Have decreased breath sounds. HEART: Normal S1 and S2. ABDOMEN: Soft, nontender. LABORATORY DATA: Reveals the patient's white count of 6.2, hemoglobin of 10 and platelets of 58. Chemistry reveals the patient's BUN of 24 and creatinine of 0.7. Urinalysis is noted. is noted. Serology is noted with a positive . ASSESSMENT AND PLAN: A 37-year-old female with end-stage acquired immune deficiency syndrome with severe sepsis, respiratory failure with pneumocystis carinii pneumonia, today is day #7 of clindamycin and primaquine may be able to switch to p.o. Mepron 750 mg b.i.d. for 21 days and we will discontinue the doxycycline. Dr. Carter's note is reviewed from yesterday. Cheikh Chou MD
[2018-04-21] MEDS: Acetylcysteine 20% Inhal Soln (4ml) IH SCH (19:55)
[2018-04-21] MEDS: Arformoterol 15 mcg/2 ml Inh Sol IH SCH (19:55)
[2018-04-21] MEDS: Budesonide 0.5 mg/2 ml Inhal Susp UD IH SCH (19:56)
[2018-04-22] MEDS: Pantoprazole 40 mg EC Tab PO SCH (05:17)
--- NOTE | 2018-04-22 05:34 | CON ---
DATE: 04/21/2018 PULMONARY CONSULTATION REFERRING PHYSICIAN: Macario Carter MD REASON FOR CONSULTATION: Recurrent pneumonia, HIV positive, chronic obstructive lung disease, active smoker. HISTORY OF PRESENT ILLNESS: This is a 37-year-old female known to me for multiple previous admissions, who has known AIDS, chronic obstructive lung disease, depression, anxiety disorder, hepatitis C, arthritis, chronic pain syndrome, history of IV drug abuser, noncompliant for medication, recently discharged from the hospital, admitted a few days ago, presently admitted with cough, shortness of breath and wheezing, being treated by Infectious Diseases, on antibiotics, presume PCP, also has cough and wheezing. No hemoptysis, no hematemesis, no hematuria or no diarrhea reported. PAST MEDICAL HISTORY: As per history of present illness. ALLERGIES: ZITHROMAX, PENICILLIN, LEVAQUIN. SOCIAL HISTORY: Smoker. Denies any alcohol use. FAMILY HISTORY: No significant cardiopulmonary disease reported. MEDICATIONS: She is on clindamycin 600 mg every 8 hours, DuoNeb every 6 hours p.r.n., clonazepam 0.5 mg twice a day, Lovenox 40 mg daily, methadone 140 mg daily, MiraLax 17 g twice a day, prednisone 40 mg every 12 hours, primaquine 26.3 mg daily, Protonix 40 mg daily, Remeron 30 mg at bedtime, Tessalon Perles 100 mg 3 times a day. REVIEW OF SYSTEM: No headache, no rhinitis. Has cough, shortness of breath, wheezing. No nausea, no vomiting, no diarrhea. No leg pain or leg swelling. PHYSICAL EXAMINATION: GENERAL: Sitting on side of the bed, having lunch, mild cough and shortness of breath. VITAL SIGNS: Temperature is 98, heart rate is 87, respiratory rate is 20, blood pressure 103/71, pulse ox 99% on nasal cannula. HEENT: Moist mucous membranes. No ulcer or thrush noted. NECK: Supple. No JVD. LUNGS: Have a prolonged expiratory wheezing, with rhonchi. HEART: S1 and S2. ABDOMEN: Soft, nontender. No organomegaly. EXTREMITIES: There is no edema. NEUROLOGIC: Awake and alert. Follows simple commands. LABORATORY DATA: Shows hemoglobin 10.5, hematocrit 33.4, WBC 6.2, platelet count is 50. Sodium 141, potassium 4.8, chloride 107, bicarbonate 31, BUN 24, creatinine 0.7, glucose 110, AST 556, ALT 211, alk phos is 184. Albumin is 2. She has b/1-3 d glucan positive, also beta-1,3-d glucan is 304. Microbiology, blood culture, urine culture is negative. IMPRESSION AND PLAN: Chronic obstructive lung disease with pneumonia, methadone dependent, being treated for Pneumocystis carinii pneumonia, on clindamycin and primaquine, continue steroids. We will add Brovana, Pulmicort and Mucomyst. Thank you and we will follow with you. Cara Barajas MD
[2018-04-22] MEDS: Acetylcysteine 20% Inhal Soln (4ml) IH SCH ×2 (07:20→21:15)
[2018-04-22] MEDS: Arformoterol 15 mcg/2 ml Inh Sol IH SCH ×2 (07:20→21:15)
[2018-04-22] MEDS: Budesonide 0.5 mg/2 ml Inhal Susp UD IH SCH ×2 (07:20→21:16)
[2018-04-22] MEDS: Primaquine 26.3 mg Tab PO SCH (09:35)
[2018-04-22] MEDS: Enoxaparin 40 mg Syringe SC SCH (09:36)
[2018-04-22] MEDS: POLYETHYLENE GLYCOL 3350 17 GM/Dose PACKET PO SCH ×2 (09:45→17:35)
--- NOTE | 2018-04-22 14:20 | PN ---
DATE: 04/21/2018 SUBJECTIVE: The patient seems clinically better. She is asking for more methadone. I gave her 130 mg, she needed more, 10 mg was given again to her. She has no nausea, no vomiting. Breathing seems better. PHYSICAL EXAMINATION: VITAL SIGNS: Temperature is 98.5, heart rate 87, blood pressure 103/71, respirations 20, saturation 99% on 2 liters. HEAD AND NECK: Normal. No JVD. No thyromegaly. CHEST: Bilateral rhonchi. CARDIAC: First sound and second sound normal. ABDOMEN: Soft and nontender. EXTREMITIES: No edema. NEUROLOGICAL: Normal. LABORATORY DATA: No labs has been ordered. We will repeat labs tomorrow. IMPRESSION: 1. Acute Pneumocystis carinii pneumonia. Continue current medications. The patient is getting clindamycin, she is getting primaquine p.o. daily and she is doing well. 2. Acute chronic obstructive pulmonary disease exacerbation. Continue Mucomyst. Continue inhaled bronchodilators, Brovana plus intravenous steroids. 3. Drug abuse in the past. Currently on methadone. Continue 140 mg for now. I discussed with the patient her liver enzyme and the necessity to decrease methadone a little bit to avoid any QT prolongation. She understands, she will agree about 140 mg for now. We will continue current therapy. Continue MiraLax, continue Protonix 40, Remeron 30 at bedtime and Tessalon Perles. Continue current therapy. The patient was advised to follow up with [facility]. She needs to get her human immunodeficiency viral load down to zero, close to zero. She is noncompliant as outpatient. Also, she does have cardiomyopathy probably human immunodeficiency virus related. Discussed with her the necessity of follow up [facility] conditions and [facility]. Macario Carter MD
--- NOTE | 2018-04-22 16:06 | PN ---
DATE: 04/22/2018 SUBJECTIVE: The patient is seen earlier this morning, in no acute distress, nontoxic. PHYSICAL EXAMINATION: VITAL SIGNS: Temperature is 98, blood pressure is 102/60, respiratory rate is 18. HEENT: Examination is unremarkable. NECK: Supple. LUNGS: Have decreased breath sounds. HEART: Normal S1 and S2. ABDOMEN: Soft and nontender. LABORATORY DATA: Reveals the patient's laboratories are reviewed with the white count of 6.2. Chemistries are noted. Urinalysis is noted. Pathology is reviewed and serology is noted. Microbiology is reviewed. Review of orders reveals the patient is clindamycin, prednisone and Primaquine. ASSESSMENT AND PLAN: This is a 37-year-old female with end-stage acquired immune deficiency syndrome and severe sepsis, respiratory failure with pneumocystis carinii, day #8 of clindamycin and primaquine, may be able to switch to p.o. Mepron oxygenation. Dr. Barajas's consultation is noted. We will follow with you. Cheikh Chou MD
--- NOTE | 2018-04-22 20:14 | PN ---
DATE: 04/22/2018 PULMONARY PROGRESS NOTE REFERRING PHYSICIAN: Macario Carter MD SUBJECTIVE: The patient is sitting on side of the bed. Night was unremarkable. Feels better. Decreased cough. Decreased wheezing. No nausea. No vomiting, diarrhea, leg pain or leg swelling. OBJECTIVE: GENERAL: In no acute distress. VITAL SIGNS: Temperature is 98, heart rate is 97, respiratory rate is 20, blood pressure 103/68, pulse of 98% on nasal cannula. HEENT: Moist mucous membrane. No ulcer or thrush noted. NECK: Supple. No JVD. LINGS: Have a prolonged expiratory phase. Few wheezing. Overall airflow is much better than yesterday. HEART: S1 and S2. ABDOMEN: Soft, nontender. No organomegaly. EXTREMITIES: No edema. NEUROLOGIC: Awake and alert. Follows simple command. MEDICATIONS: She is on Mucomyst 20% inhaled twice a day, Brovana inhaled twice a day, clindamycin 600 mg every eight, DuoNeb every 6 hour p.r.n., Klonopin 0.5 mg twice a day, methadone 140 mg daily, MiraLax 17 g twice a day, prednisone 40 mg twice a day, Primaquine 26.3 daily, Protonix 40 mg daily, Pulmicort inhaled twice a day, Remeron 30 mg at bedtime, Tessalon Perles 10 mg three times a day. LABORATORY DATA: Reviewed and no new lab is available since yesterday. Medication reviewed. No new changes reported. IMPRESSION AND PLAN: Chronic obstructive lung disease, pneumonia, methadone dependent, suspected pneumonia. Pulmonary point of view, doing okay. Continue antibiotics as per Infectious Diseases. Continue p.o. and inhaled bronchodilator, methadone dependent. Fall precaution. Thank you and we will follow with you. Cara Barajas MD
[2018-04-23] MEDS: Pantoprazole 40 mg EC Tab PO SCH (05:46)
[2018-04-23 06:09] LABS: ALB/GLOB RATIO 0.7 (1.1-1.8); ALBUMIN 2.2 g/dL (3.0-4.8); ALT/SGPT 66 U/L (7-56); AST/SGOT 48 U/L (14-36); BLOOD UREA NITROGEN 43 mg/dL (7-21); CALCIUM 9.1 mg/dL (8.4-10.5); GFR AFRICAN-AMERICAN > 60; GFR NON-AFRICAN AMERICAN > 60
[2018-04-23] MEDS: Budesonide 0.5 mg/2 ml Inhal Susp UD IH SCH ×2 (08:14→20:09)
[2018-04-23] MEDS: Albuterol-Ipratrop 3 mg / 0.5 (3 ml) UD IH PRN (08:14)
[2018-04-23] MEDS: Arformoterol 15 mcg/2 ml Inh Sol IH SCH ×2 (08:14→20:09)
[2018-04-23] MEDS: Acetylcysteine 20% Inhal Soln (4ml) IH SCH ×2 (08:14→20:09)
--- NOTE | 2018-04-23 08:31 | PN ---
DATE: 04/23/2018 SUBJECTIVE: The patient is in bed, in no acute distress, is nontoxic. She is somewhat short of breath. PHYSICAL EXAMINATION: VITAL SIGNS: On exam, temperature is 98, blood pressure is 112/70, respiratory rate of 20, saturating at 93% on nasal cannula. HEENT: Examination of HEENT is unremarkable. NECK: Supple. LUNGS: Have decreased breath sounds. HEART: Normal S1, S2. ABDOMEN: Soft, nontender. LABORATORY DATA: Laboratory examination reveals a white count of 6.2, hemoglobin of 10, platelets of 58. BUN of 43, creatinine of 1. Urinalysis is noted. Toxicology is noted. Serology is noted. Microbiology reveals the cultures are negative. The patient's MRSA is positive. ASSESSMENT AND PLAN: A 37-year-old female with end-stage acquired immune deficiency syndrome, severe sepsis, respiratory failure with Pneumocystis carinii pneumonia, day #9 of clindamycin and primaquine. May be able to switch to p.o. Mepron 750 mg p.o. b.i.d. once her oxygenation is somewhat improved. She continues to do better. Dr. Barajas's note is reviewed. Cheikh Chou MD
[2018-04-23] MEDS: Primaquine 26.3 mg Tab PO SCH (09:47)
[2018-04-23] MEDS: POLYETHYLENE GLYCOL 3350 17 GM/Dose PACKET PO SCH ×2 (09:47→17:36)
[2018-04-23 13:34] LABS: HEMOGLOBIN 9.4 g/dL (12.0-16.0); MEAN CORPUSCULAR HEMOGLOBIN 27.2 pg (25.0-35.0); MEAN CORPUSCULAR HGB CONC 31.2 g/dl (31.0-37.0); MEAN PLATELET VOLUME 11.8 fl (7.0-11.0); RBC 3.46 10^6/uL (3.5-6.1); RED CELL DISTRIBUTION WIDTH 17.1 % (11.5-14.5); WHITE BLOOD COUNT 7.3 10^3/ul (4.5-11.0)
--- NOTE | 2018-04-23 18:34 | PN ---
DATE: 04/23/2018 PULMONARY PROGRESS NOTE REFERRING PHYSICIAN: Macario Carter MD. SUBJECTIVE: She is sitting on side of the bed. Family is at bedside. Night was unremarkable. Still has some cough and wheezing. No nausea, vomiting, diarrhea, leg pain, leg swelling. OBJECTIVE: GENERAL: In no acute distress. VITAL SIGNS: Temperature is 98, heart rate is 13, respiratory rate is 20, blood pressure 108/75, pulse ox 95% on nasal cannula. HEENT: Moist mucous membrane. Crowded airway. NECK: Supple. No JVD. LUNGS: Have scattered rhonchi, prolonged expiratory phase. HEART: S1 and S2. ABDOMEN: Soft, nontender. No organomegaly. EXTREMITIES: No edema. NEUROLOGICAL: Awake and alert, follows simple command. MEDICATIONS: She is on Mucomyst inhaled twice a day, Brovana inhaled twice a day, DuoNeb every 6 hours p.r.n., Klonopin 0.5 mg twice a day, methadone 140 mg daily, MiraLax 17 g twice a day, prednisone 40 mg twice a day, Protonix 40 mg daily, Pulmicort inhaled twice a day, Remeron 30 mg at bedtime, Tessalon Perles 100 mg three times a day. LABORATORY DATA: Shows hemoglobin 9.4, hematocrit 30.1, WBC 7.3, platelet is 153. Sodium , potassium 4.9, chloride 111, bicarbonate 28, BUN 43, creatinine 1, glucose 120, calcium is 9.1, AST 48, ALT 66, alk phos is 97. Albumin is 2.2. IMPRESSION AND PLAN: Chronic obstructive lung disease, pneumonia, methadone dependent, suspect malnutrition. Pulmonary point of view, she is doing okay. Continue IV and inhaled bronchodilator, antibiotics as per Infectious Disease. Gastric prophylaxis, deep venous thrombosis prophylaxis. Encourage p.o. intake. Thank you and we will follow with you. Cara Barajas MD
[2018-04-23 22:33] VITALS: TEMP 98
[2018-04-24] MEDS: Pantoprazole 40 mg EC Tab PO SCH (05:33)
[2018-04-24] MEDS: Budesonide 0.5 mg/2 ml Inhal Susp UD IH SCH (07:20)
[2018-04-24] MEDS: Arformoterol 15 mcg/2 ml Inh Sol IH SCH (07:20)
[2018-04-24] MEDS: Acetylcysteine 20% Inhal Soln (4ml) IH SCH ×2 (07:21→07:26)
[2018-04-24] MEDS: Albuterol-Ipratrop 3 mg / 0.5 (3 ml) UD IH PRN (07:25)
[2018-04-24 08:40] VITALS: BP 109/83; PULSE 103; RESP 20; O2SAT 100
--- NOTE | 2018-04-24 08:52 | PN ---
DATE: 04/24/2018 SUBJECTIVE: The patient is seen early this morning. She is doing well. She has no fevers. She is tolerating the antibiotics well. PHYSICAL EXAMINATION: VITAL SIGNS: Temperature is 98, blood pressure is 114/60, respiratory rate of 20. HEENT: Examination of HEENT is unremarkable. NECK: Supple. LUNGS: Have decreased breath sounds. HEART: Normal S1, S2. ABDOMEN: Soft, nontender. LABORATORY DATA: Laboratory examination reveals a white count of 7.3, hemoglobin of 9, platelets of 153. chemistries reveals the patient has a BUN of 43, creatinine of 1. Urinalysis is noted. Serology is positive for PCP. Microbiology is noted. Dr. Barajas's note is reviewed. ASSESSMENT AND PLAN: A 37-year-old female seen in 577 with end-stage acquired immune deficiency syndrome, severe sepsis, respiratory failure with Pneumocystis carinii pneumonia, day #10 of clindamycin and primaquine. We will switch to p.o. Mepron. Recommend 21 days of p.o. Mepron 750 mg p.o. b.i.d. x21 days. The patient is on prednisone. The clindamycin has been discontinued by Pharmacy so as the primaquine. The patient is advised on taking her medications and to start taking her human immunodeficiency virus medications and follow up as outpatient. The patient has been traditionally very noncompliant with her medications. Cheikh Chou MD
[2018-04-24] MEDS: Atovaquone 750 mg/5 ml Susp UD PO SCH ×2 (09:05→17:18)
[2018-04-24] MEDS: POLYETHYLENE GLYCOL 3350 17 GM/Dose PACKET PO SCH (11:51)
--- NOTE | 2018-04-24 17:24 | PN ---
DATE: 04/24/2018 PULMONARY PROGRESS NOTE REFERRING PHYSICIAN: Macario Carter MD SUBJECTIVE: Sitting side of the bed. Night was unremarkable. Feels better. Decreased cough. Decreased shortness breath. No nausea, vomiting, diarrhea, leg pain, or leg swelling. OBJECTIVE: GENERAL: In no acute distress. VITAL SIGNS: Temperature is 98, heart rate is 103, respiratory rate is 20, blood pressure 108/75, pulse of 95% on nasal cannula. HEENT: Moist mucous membrane. No ulcer or thrush. NECK: Supple. No JVD. LUNGS: Have much better airflow. Prolonged expiratory phase. HEART: S1 and S2. ABDOMEN: Soft and nontender. No organomegaly. EXTREMITIES: There is no edema. NEUROLOGIC: Awake, alert, and follows simple command. MEDICATIONS: She is on Brovana inhaled twice a day, DuoNeb every 6 hours p.r.n., Klonopin 0.5 mg twice a day, also Klonopin 0.5 mg at bedtime, Mepron 750 mg twice a day, methadone 140 mg daily, MiraLax 17 g twice a day, prednisone 40 mg every 12 hours, Protonix 40 mg daily, Pulmicort inhaled twice a day, Remeron 30 mg at bedtime, Tessalon Perles 100 mg three times a day. LABORATORY DATA: Reviewed. No new lab is available since yesterday. IMPRESSION AND PLAN: Chronic obstructive lung disease, pneumonia, methadone dependent, suspected Pneumocystis carinii pneumonia, malnutrition. Pulmonary point of view, doing okay. Urged her to stop smoking. Decreased prednisone to 40 mg daily. Continue inhaled bronchodilator, gastric prophylaxis, deep venous thrombosis prophylaxis. Thank you and we will follow with you. Cara Barajas MD
--- NOTE | 2018-04-24 17:56 | PN ---
DATE: 04/22/2018 SUBJECTIVE: The patient is sitting comfortably, in no distress. No new complaint. Afebrile. She is still getting IV clindamycin. PHYSICAL EXAMINATION: As follows; VITAL SIGNS: Temperature 98.5, heart rate 87, blood pressure 103/71, saturations 98%. HEAD AND NECK: Normal. No JVD. No thyromegaly. CHEST: Clear bilaterally. No wheezing. CARDIAC: First sound and second sound normal. ABDOMEN: Soft, nontender. EXTREMITIES: No edema. NEUROLOGIC: Normal. LABORATORY STUDY: Labs are ordered for tomorrow at this time. IMPRESSION AND PLAN: 1. Pneumocystis carinii pneumonia. Continue IV antibiotic. She is still on IV clindamycin. We are going to discuss with Infectious Disease about sending her home. She seems better. Breathing is much better. Continued inhaled bronchodilator. Continue IV steroids. We will follow up clinically. 2. Advanced human immunodeficiency virus. The patient needs to be compliant with her human immunodeficiency virus medicines and monitor her human immunodeficiency virus viral load. 3. Chronic hepatitis C. 4. Drug abuse methadone 140 mg. The patient is stable otherwise. Continue current therapy. Plan discharge tomorrow. Macario Carter MD
--- NOTE | 2018-04-24 18:06 | PN ---
DATE: 04/23/2018 SUBJECTIVE: The patient is comfortable, sitting, walking to the bathroom. No respiratory distress. She is getting her last dose of clindamycin today. The patient is on methadone. She cannot go home today, she will be tomorrow, Wednesday. She has no chest pain. Not short of breath. She feels a lot better. PHYSICAL EXAMINATION: As follows; VITAL SIGNS: Temperature 98.6, heart rate 103, blood pressure 108/75, respirations 20, saturations 95%. HEAD AND NECK: Normal. No JVD. No thyromegaly. CHEST: Clear bilaterally. CARDIAC: First sound and second sound normal. ABDOMEN: Soft, nontender. EXTREMITIES: No edema. NEUROLOGICAL: Normal. LABORATORY STUDY: Noted for sodium 145, potassium 4.9, chloride 111, bicarb 28, BUN 43, creatinine 1, blood sugar 120. Liver enzymes are much much better. AST 48, ALT 66. noted for white count 7.3, hemoglobin 9.4, hematocrit 30.1, platelets 153. IMPRESSION AND PLAN: 1. Pneumocystis carinii pneumonia. She is doing a lot better. We will continue current therapy. The patient will be discharged to be followed with human immunodeficiency virus clinic. Seen by Dr. Chou as outpatient. The patient needs to be on Pneumocystis carinii pneumonia suppressive therapy. She is on Mepron, atovaquone 750 b.i.d. Also, she may need to be on Bactrim. 2. Drug abuse. Continue methadone. 3. Chronic anxiety. Continue Klonopin 0.5 mg b.i.d. and 0.5 at bedtime. 4. Chronic obstructive pulmonary disease. Continue prednisone. We will discuss with the Pulmonary about the prednisone, Medrol Dosepak. Continue inhaled bronchodilators, Tessalon, Remeron at bedtime for increasing appetite and continue Protonix 40 once a day. We will plan discharge tomorrow, Wednesday and she should follow up with human immunodeficiency virus clinic and Dr. Chou, Infectious Disease consult as outpatient. Macario Carter MD [facility] # [id number]
--- NOTE | 2018-04-24 19:03 | CON ---
HISTORY OF PRESENT ILLNESS: Shortly, the patient is 37-year-old, multiple medical issues, COPD and HIV. The patient was admitted on the medical side for persistent chest pain. Psych consult was called for evaluation of anxiety and questionable paresthesias in lower extremities. 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 The patient was discharged on Remeron 30 mg, which was resumed by medical team, also Klonopin was 0.5 mg twice a day and at the nighttime as well. The patient was seen and examined today. The patient presented better to compare with the previous admission. The patient seems to gain a little bit weight, presented healthier to compare with the last admission. The patient reported that her anxiety is out of control. The patient has tremor in her upper extremities. The patient reported that she did not follow up with outpatient psychiatrist because she came back to the hospital within 2 weeks. The patient denied hearing voices, denied seeing things, denied feeling of hopelessness or helplessness. The patient denied thoughts of harming herself or others. Denied intents or plan. The patient is not psychotic. PHYSICAL EXAMINATION: VITAL SIGNS: Seem to be stable. Temperature is 98, pulse is 103, blood pressure 109/83, oxygen saturation is 100, respirations 20. MEDICATIONS: Reviewed. The patient was resumed with Remeron 30 mg at the nighttime and Klonopin 0.5 mg twice a day. We will add Klonopin at the nighttime for insomnia as well as to help patient to control her anxiety. LABORATORY DATA: Reviewed. The patient had AST and ALT elevated, but trending down. The patient has leukocytosis at 12.3, but is trending down. Toxicology was positive for methadone, but not benzodiazepines. MENTAL STATUS EXAMINATION: The patient presented to be alert, pleasant, upper extremity tremor. The patient complained of anxiety, intermittent eye contact. Mood described "I am feeling anxious." Affect was constricted, but reactive, mood congruent. Thought process was coherent and goal directed. Thought content: The patient denied visual, auditory, or tactile hallucinations. Denied paranoid ideation. The patient denied thoughts of harming herself or others. Denied intents or plan. Insight and judgment seem to be improving. Impulses are well controlled. IMPRESSION: Rule out anxiety and depression due to general medical condition. The patient is on methadone for her opioid addiction. 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 Remeron will be continued. We will follow up and advise accordingly. Thank you very much for letting me participate in care of your patient. Should you have any questions, give me a call back. Celia Cho MD
--- NOTE | 2018-04-25 13:33 | DS ---
The patient was treated and admitted in the ICU with low blood pressure and PCP pneumonia. Patient was seen by ID consult. She was given nebulizer treatment, IV fluids, IV steroids, IV antibiotics, clindamycin, Pulmicort, Brovana, and she was treated for PCP pneumonia. The patient was seen by ID consult, Dr. Chou and seen by Dr. Granado, his associate and she was given IV and inhaled bronchodilators. She did very well. The patient has severe immune deficiency syndrome, sepsis, and respiratory failure, pneumocystis pneumonia and COPD. She got treated with clindamycin and primaquine, and she did very well and she improved and her lung cleared up very well and saturating well and she was switched to Mepron p.o., to be followed as outpatient. Patient was advised several times she needs to comply with HIV medication, to get the viral load down and undetectable and compliance is important, in addition to staying on methadone and follow up as outpatient. Patient is stable. Her blood pressure stabilized. She is off antibiotic, off isolation, seen by Dr. Barajas, Pulmonary Consult and her CBC improved. Her platelets went down to 150. LABORATORY DATA: Last laboratory: Platelets 153, white count 7.3, hemoglobin 9.3, hematocrit 30.1. Chemistry: Sodium 145, potassium 4.9, chloride 111, BUN 43, creatinine 1, blood sugar 120. Liver enzymes have significantly improved from 1420, it went down to 48; 343 ALT went down to 66 and alkaline phosphatase normalized. Discussed with the patient in detail all the findings and advised her to comply with the medicine. She will improve. She will get better and she will feel a lot better Methadone was being started at 140, she prefers to be on 150. She will go back on the Methadone program. DISCHARGE DIAGNOSES: 1. Severe sepsis due to pneumocystis carinii pneumonia. 2. Pneumocystis carinii pneumonia. 3. Advanced human immunodeficiency virus, acquired immune deficiency syndrome. 4. Hypotension. 5. Drug abuse, on methadone. 6. Chronic anxiety. 7. Poor nutrition. PLAN: To discharge the patient on Mepron 750 mg b.i.d. Continue Klonopin 0.5 mg t.i.d., inhalers including AirDuo plus Ventolin. Continue Remeron at bedtime, Tessalon Perles, prednisone. We are going to give her Medrol Royal. Continue methadone 150 once a day, to 140, and also continue Protonix 40 daily. Discharge the patient home. Macario Carter MD
== END 2018-04-24 18:38 | disposition home or self-care (01) | DRG 710 ==
LOC: ED 16:31 → ERH 22:04 → 2RSO 04-14 00:52 → CCU 04-14 03:15 → 2RSO 04-16 14:20 → CCU 04-16 18:18 → 2RNO 04-19 02:11 → 5RSO 04-20 15:55
PROVIDERS: ADMIT Internal Medicine; ATTEND Internal Medicine
PROC: 5A09357 Assistance with Respiratory Ventilation, Less than 24 Consecutive Hours, Continuous Positive Airway Pressure (ICD-10-PCS; principal; 2018-04-14)
PROC: 02HV33Z Insertion of Infusion Device into Superior Vena Cava, Percutaneous Approach (ICD-10-PCS; 2018-04-14)
PROC: 3E04329 Introduction of Other Anti-infective into Central Vein, Percutaneous Approach (ICD-10-PCS; 2018-04-14)
PROC: B54MZZA Ultrasonography of Right Upper Extremity Veins, Guidance (ICD-10-PCS; 2018-04-14)
DX: A41.9 Sepsis, unspecified organism (principal); B59 Pneumocystosis; B20 Human immunodeficiency virus [HIV] disease; R65.21 Severe sepsis with septic shock; I21.A1 Myocardial infarction type 2; R57.0 Cardiogenic shock; J96.01 Acute respiratory failure with hypoxia; J96.02 Acute respiratory failure with hypercapnia; K72.00 Acute and subacute hepatic failure without coma; I50.82 Biventricular heart failure; J44.1 Chronic obstructive pulmonary disease with (acute) exacerbation; I43 Cardiomyopathy in diseases classified elsewhere; I11.0 Hypertensive heart disease with heart failure; I50.1 Left ventricular failure, unspecified; D61.818 Other pancytopenia; B18.2 Chronic viral hepatitis C; F11.20 Opioid dependence, uncomplicated; E46 Unspecified protein-calorie malnutrition; I27.29 Other secondary pulmonary hypertension; F32.9 Major depressive disorder, single episode, unspecified; F41.9 Anxiety disorder, unspecified; G89.4 Chronic pain syndrome; M41.9 Scoliosis, unspecified; K59.09 Other constipation; K21.9 Gastro-esophageal reflux disease without esophagitis; I31.3 Pericardial effusion (noninflammatory); F17.290 Nicotine dependence, other tobacco product, uncomplicated; H35.30 Unspecified macular degeneration; I45.81 Long QT syndrome; Z68.1 Body mass index [BMI] 19.9 or less, adult; Z88.0 Allergy status to penicillin; Z88.3 Allergy status to other anti-infective agents; Z91.14 Patient's other noncompliance with medication regimen; Z83.3 Family history of diabetes mellitus; Z82.49 Family history of ischemic heart disease and other diseases of the circulatory system

== ENCOUNTER 2018-05-19 09:53 | Inpatient (IN) | payer OTHER ==
[2018-05-19 09:53] VITALS: BMI 17.2
--- NOTE | 2018-05-19 10:37 | ED PDOC ---
Arrival/HPI - General Chief Complaint: Shortness Of Breath Time Seen by Provider: 05/19/18 10:32 Historian: Patient - History of Present Illness Narrative History of Present Illness (Text): 05/19/18 10:34 37 year old female, whose past medical history includes PCP, pneumonia, HIV (non -compliant with medication), neck abscess, and Hepatitis C, who presents to the ED complaining of SOB, fever, and non-productive cough. Patient notes she took Motrin and her fever resolved. Patient notes she was treated for PCP a month ago but has not gotten better. Patient denies chest pain, nausea, vomiting, diarrhea, abdominal pain, back pain, neck pain,, or any other complaints. Symptom Onset: Gradual Symptom Course: Unchanged Activities at Onset: Light Context: Home Past Medical History - Provider Review Nursing Documentation Reviewed: Yes - Infectious Disease Hx of Infectious Diseases: None - Tetanus Immunization Tetanus Immunization: Unknown - Cardiac Hx Cardiac Disorders: Yes - Pulmonary Hx Respiratory Disorders: Yes (has nebulizer machine at home) Hx Asthma: Yes Hx Bronchitis: Yes Hx Chronic Obstructive Pulmonary Disease (COPD): Yes Hx Pneumonia: Yes - Neurological Hx Migraine: Yes - HEENT Hx Macular Degeneration: Yes - Renal Hx Renal Disorder: No - Endocrine/Metabolic Hx Endocrine Disorders: No - Hematological/Oncological Hx Blood Disorders: Yes (blood transfusion) Hx AIDS: Yes Hx Hepatitis C: Yes (IVDU) - Integumentary Hx Dermatological Disorder: Yes - Musculoskeletal/Rheumatological Hx Musculoskeletal Disorders: Yes Hx Back Pain: Yes Hx Falls: No Other/Comment: SCOLIOSIS - Gastrointestinal Hx Gastrointestinal Disorders: Yes - Genitourinary/Gynecological Hx Genitourinary Disorders: Yes Hx Urinary Tract Infection: Yes - Psychiatric Hx Psychophysiologic Disorder: Yes Hx Anxiety: Yes Hx Substance Use: No Other/Comment: hx ivdu/cocaine stopped 6 yrs ago on methadone program, smokes 1 ppd has not smoked in 4 days - Past Surgical History Past Surgical History: No Previous - Surgical History Other/Comment: right anterior neck SX for abcesses bx neg - Anesthesia Hx Anesthesia: Yes Hx Anesthesia Reactions: No Hx Malignant Hyperthermia: No - Suicidal Assessment Feels Threatened In Home Enviroment: No Family/Social History - Physician Review Nursing Documentation Reviewed: Yes Family/Social History: Unknown Family HX Smoking Status: Vape Hx Alcohol Use: No Hx Substance Use: No Substance used: herion, cocaine Hx Substance Use Treatment: No Allergies/Home Meds Allergies/Adverse Reactions: Allergies levofloxacin [From Levaquin] Allergy (Verified 05/19/18 10:22) RASH Penicillins Allergy (Verified 05/19/18 10:22) RASH sulfamethoxazole [From Bactrim] Allergy (Verified 05/19/18 10:22) ANGIOEDEMA trimethoprim [From Bactrim] Allergy (Verified 05/19/18 10:22) ANGIOEDEMA azithromycin [From Zithromax] Adverse Reaction (Verified 05/19/18 10:22) RASH flexeril Adverse Reaction (Uncoded 05/19/18 10:22) RASH Home Medications: Home Meds Medication Instructions Recorded Confirmed Albuterol HFA [Ventolin HFA 90 2 puff INH Q4H PRN 03/11/18 03/11/18 mcg/actuation (8 g)] Famotidine [Pepcid] 40 mg PO DAILY 03/11/18 03/11/18 Ibuprofen [Motrin Tab] 800 mg PO PRN PRN 03/11/18 03/11/18 Review of Systems - Physician Review All systems were reviewed & negative as marked: Yes - Review of Systems Constitutional: Normal Eyes: Normal ENT: Normal Respiratory: SOB, Cough Cardiovascular: Normal. absent: Chest Pain Gastrointestinal: Normal. absent: Abdominal Pain, Diarrhea, Nausea, Vomiting Genitourinary Female: Normal. absent: Dysuria, Frequency Musculoskeletal: Normal. absent: Back Pain, Neck Pain Skin: Normal. absent: Rash Neurological: Normal. absent: Headache, Dizziness Endocrine: Normal Hemo/Lymphatic: Normal Psychiatric: Normal Physical Exam Vital Signs Reviewed: Yes Vital Signs Temp Pulse Resp BP Pulse Ox 05/19/18 18:54 97.8 F 110 H 12 110/81 100 05/19/18 16:44 97.6 F 108 H 12 110/70 100 05/19/18 15:55 97.6 F 105 H 20 98/70 L 86 L 05/19/18 10:35 18 05/19/18 10:24 112 H 24 113/84 89 L Temperature: Afebrile Blood Pressure: Normal Pulse: Tachycardic Respiratory Rate: Normal Appearance: Positive for: Well-Appearing, Non-Toxic, Comfortable Pain Distress: None Mental Status: Positive for: Alert and Oriented X 3 - Systems Exam Head: Present: Atraumatic, Normocephalic Pupils: Present: PERRL Extroacular Muscles: Present: EOMI Conjunctiva: Present: Normal Mouth: Present: Moist Mucous Membranes Neck: Present: Normal Range of Motion, Other (old scar on rt side of neck) Respiratory/Chest: Present: Clear to Auscultation, Good Air Exchange. No: Respiratory Distress, Accessory Muscle Use Cardiovascular: Present: Regular Rate and Rhythm, Normal S1, S2. No: Murmurs Abdomen: No: Tenderness, Distention, Peritoneal Signs Back: Present: Normal Inspection Upper Extremity: Present: Normal Inspection. No: Cyanosis, Edema Lower Extremity: Present: Normal Inspection. No: Edema Neurological: Present: GCS=15, CN II-XII Intact, Speech Normal Skin: Present: Warm, Dry, Normal Color. No: Rashes Psychiatric: Present: Alert, Oriented x 3, Normal Insight, Normal Concentration Medical Decision Making ED Course and Treatment: 05/19/18 10:38 Impression: 37 year old female presents to the ED complaining of SOB, fever, and non- productive cough. Plan -- Labs -- CXR -- Airborne Isolation Progress Notes: 05/19/18 11:31 EKG reviewed, shows Sinus tachycardia at 108 bpm. Right axis. 05/19/18 15:58: Consulted with critical care unit. Chest X-ray Dictator : Andrea Oquendo MD Report Date : 05/19/2018 15:42:57 IMPRESSION: No active disease. 05/19/18 16:41: Patient being given first dose of NAC for abnormal LFTs. Additional doses can be given in ICU. 05/19/18 16:45: Dr. Mohr from infectious disease has been contacted, case discussed with him and he was made aware. - Lab Interpretations Microbiology Results: Microbiology Results 05/19/18 11:10 Blood Blood Culture - Preliminary NO GROWTH AFTER 4 DAYS 05/19/18 10:40 Blood Blood Culture - Preliminary NO GROWTH AFTER 4 DAYS Lab Results: 05/19/18 13:26 05/19/18 13:26 Lab Results 05/19/18 16:13: pCO2 59 H, pO2 63.0 L, HCO3 19.2 L, ABG pH 7.12 L*, ABG Total CO2 21.0 L, ABG O2 Saturation 87.5 L, ABG O2 Content 12.1 L, ABG Base Excess - 10.1 L, ABG Hemoglobin 10.1 L, ABG Carboxyhemoglobin 2.4 H, POC ABG HHb ( Measured) 12.1 H, ABG Methemoglobin 0.8, ABG O2 Capacity 13.8 L, Hgb O2 Saturation 84.7 L, FiO2 40.0 05/19/18 13:26: Salicylates < 1 L, Acetaminophen < 10.0 L 05/19/18 13:26: PT 17.1 H, INR 1.49 H 05/19/18 13:26: D-Dimer, Quantitative 1575 H 05/19/18 13:26: Sodium 140, Chloride 107, Potassium 5.3 H, Carbon Dioxide 22, Anion Gap 16, BUN 46 H, Creatinine 1.8 H, Est GFR ( Amer) 38, Est GFR ( Non-Af Amer) 32, Random Glucose 66 L, Calcium 8.7, Magnesium 2.3 H, Total Bilirubin 0.3, AST 4513 H, ALT 2321 H, Alkaline Phosphatase 150 H D, Lactate Dehydrogenase 85012 H, Total Creatine Kinase 109, Troponin I 0.09, Total Protein 6.8, Albumin 2.8 L, Globulin 4.0, Albumin/Globulin Ratio 0.7 L 05/19/18 13:26: pO2 56 H, VBG pH 7.09 L*, VBG pCO2 73.0 H*, VBG HCO3 22.1, VBG Total CO2 24.3, VBG O2 Sat (Calc) 80.9 H, VBG Base Excess -9.0 L, VBG Potassium 5.3 H, Sodium 136.0, Chloride 107.0, Glucose 62 L, Lactate 1.5, FiO2 21.0, Venous Blood Potassium 5.3 H 05/19/18 13:26: WBC 10.6 D, RBC 3.83, Hgb 10.0 L, Hct 32.6 L, MCV 85.1, MCH 26.1, MCHC 30.7 L, RDW 16.2 H, Plt Count 198, MPV 9.9, Gran % 79.1 H, Lymph % ( Auto) 12.4 L, [place] % (Auto) 7.8 H, Eos % (Auto) 0.3 L, Baso % (Auto) 0.4, Gran # 8.41 H, Lymph # (Auto) 1.3, [place] # (Auto) 0.8 H, Eos # (Auto) 0.0, Baso # ( Auto) 0.04 - RAD Interpretation Radiology Orders: 05/19/18 10:40 CHEST PORTABLE [RAD] Stat 05/19/18 16:38 ABDOMEN COMPLETE [US] Stat 05/20/18 05:00 CXR [CHEST PORTABLE] [RAD] Routine - Medication Orders Current Medication Orders: Acetylcysteine (Acetylcysteine 20%) 3 ml IH BID EDSON Albuterol/Ipratropium (Duoneb 3 Mg/0.5 Mg (3 Ml) Ud) 3 ml IH [id number] PRN PRN Reason: Shortness of Breath Last Admin: 05/23/18 14:24 Dose: 3 ml Albuterol/Ipratropium (Duoneb 3 Mg/0.5 Mg (3 Ml) Ud) 3 ml IH [id number] EDSON Last Admin: 05/24/18 13:21 Dose: 3 ml Arformoterol Tartrate (Brovana) 15 mcg IH [id number] EDSON Last Admin: 05/24/18 07:52 Dose: 15 mcg Budesonide (Pulmicort Respules) 0.5 mg IH [id number] EDSON Last Admin: 05/24/18 07:52 Dose: 0.5 mg Clonazepam (Klonopin) 0.5 mg PO BID PRN; Protocol PRN Reason: Anxiety Last Admin: 05/23/18 10:03 Dose: 0.5 mg Behavioural Document 05/23/18 10:03 SOUSV (Rec: 05/23/18 10:03 [facility] Maintenance Maintenance Dose No Nonmedicinal Nonmedicinal Interventions Redirect Therapeutic Communication Behavior Behavior for Medication: Anxiety Re-Assess: Reassess Psych Meds Document 05/23/18 11:03 SOUSV (Rec: 05/23/18 12:05 [id number] Reassess Psych Med Effective Famotidine (Pepcid) 20 mg PO DAILY [facility] Last Admin: 05/24/18 09:37 Dose: 20 mg Furosemide (Lasix) 20 mg PO DAILY [facility] Last Admin: 05/24/18 13:07 Dose: 20 mg MAR Blood Pressure Document 05/24/18 13:07 SOUSV (Rec: 05/24/18 13:10 S[facility]SV [facility]) Blood Pressure Blood Pressure (100/60-150/90 mm Hg) 116/80 Heparin Sodium (Porcine) (Heparin) 5,000 units SC Q8 EDSON PRN Reason: Protocol Last Admin: 05/24/18 13:07 Dose: 5,000 units Subcutaneous Administrations Document 05/24/18 13:07 SOUSV (Rec: 05/24/18 13:07 [facility] Injection Site MAR Injection Site Left Arm Charges for Administration # of Subcutaneous Administrations 1 Clindamycin Phosphate 900 mg/ (Sodium Chloride) 106 mls @ 106 mls/hr IVPB Q8 EDSON PRN Reason: Protocol Last Admin: 05/24/18 13:57 Dose: 106 mls/hr eMAR Start Stop Document 05/24/18 13:57 SOUSV (Rec: 05/24/18 13:57 SOUSV L[facility]OSTENDORF) Intravenous Solution Start Date 05/24/18 Start Time 13:57 End Date 05/24/18 End time 14:57 Total Infusion Time 60 Meropenem (Merrem Iv 1 Gm Premix) 50 mls @ 100 mls/hr IVPB Q12 EDSON PRN Reason: Protocol Last Admin: 05/24/18 09:36 Dose: 100 mls/hr eMAR Start Stop Document 05/24/18 09:36 SOUSV (Rec: 05/24/18 09:36 [facility] Intravenous Solution Start Date 05/24/18 Start Time 09:36 End Date 05/24/18 End time 10:06 Total Infusion Time 30 Acyclovir 600 mg/ Sodium (Chloride) 100 mls @ 100 mls/hr IV Q12 ESDON PRN Reason: Protocol Last Admin: 05/24/18 09:36 Dose: 100 mls/hr eMAR Start Stop Document 05/24/18 09:36 SOUSV (Rec: 05/24/18 09:36 [facility]) Intravenous Solution Start Date 05/24/18 Start Time 09:36 End Date 05/24/18 End time 10:36 Total Infusion Time 60 Losartan Potassium (Cozaar) 25 mg PO DAILY EDSON Last Admin: 05/24/18 13:07 Dose: 25 mg MAR Pulse and Blood Pressure Document 05/24/18 13:07 SOUSV (Rec: 05/24/18 13:07 [facility] Pulse Pulse Rate (60-90 beats/min) 95 Methadone HCl (Methadone) 130 mg PO DAILY [facility] Last Admin: 05/24/18 09:38 Dose: 130 mg [facility] Pain Assessment Document 05/24/18 09:38 SOUSV (Rec: 05/24/18 09:38 [facility] Pain Reassessment Is this a pain reassessment? No Presence of Pain Presence of Pain No Re-Assess: [facility] Pain Assessment Document 05/24/18 10:38 SOUS (Rec: 05/24/18 12:33 [id number] Pain Reassessment Is this a pain reassessment? Yes Presence of Pain Presence of Pain No Methylprednisolone (Solu-Medrol) 20 mg IVP Q12 [facility] Last Admin: 05/24/18 09:37 Dose: 20 mg IVP Administration Document 05/24/18 09:37 SOU (Rec: 05/24/18 09:37 [facility] Charges for Administration # of IVP Administrations 1 Primaquine Phosphate (Primaquine) 26.3 mg PO DAILY [facility] PRN Reason: Protocol Last Admin: 05/24/18 09:37 Dose: 26.3 mg Discontinued Medications Acetylcysteine (Acetylcysteine 20%) 3 ml PO BID [facility] Albuterol/Ipratropium (Duoneb 3 Mg/0.5 Mg (3 Ml) Ud) 3 ml IH STAT STA Stop: 05/19/18 16:57 Last Admin: 05/19/18 17:43 Dose: 3 ml Albuterol/Ipratropium (Duoneb 3 Mg/0.5 Mg (3 Ml) Ud) 3 ml IH STAT STA Stop: 05/20/18 05:32 Furosemide (Lasix) 20 mg IVP ONCE ONE Stop: 05/23/18 14:18 Last Admin: 05/23/18 14:31 Dose: 20 mg MAR Blood Pressure Document 05/23/18 14:31 [facility] (Rec: 05/23/18 14:31 [facility] Blood Pressure Blood Pressure (100/60-150/90 mm Hg) 105/77 IVP Administration Document 05/23/18 14:31 SOUSV (Rec: 05/23/18 14:31 SOU[facility] [email or web address]) Charges for Administration # of IVP Administrations 1 Heparin Sodium (Porcine) (Heparin) 5,000 units SC Q8H [facility] PRN Reason: Protocol Last Admin: 05/21/18 05:15 Dose: 5,000 units Subcutaneous Administrations Document 05/21/18 05:15 JBO (Rec: 05/21/18 05:15 JBO [id number]) Injection Site MAR Injection Site Left Abdomen Charges for Administration # of Subcutaneous Administrations 1 Sodium Chloride (Sodium Chloride 0.9%) 1,000 mls @ 999 mls/hr IV .Q1H1M STA Stop: 05/19/18 17:13 Last Admin: 05/19/18 16:13 Dose: 999 mls/hr eMAR Start Stop Document 05/19/18 16:13 LA (Rec: 05/19/18 16:38 LA [id number]) Intravenous Solution Start Date 05/19/18 Start Time 16:13 End Date 05/19/18 End time 17:14 Total Infusion Time 61 Acetylcysteine 7,748 mg/ (Dextrose) 238.74 mls @ 238.74 mls/hr IV .Q1H ONE Stop: 05/19/18 17:29 Last Admin: 05/19/18 17:43 Dose: 238.74 mls/hr eMAR Start Stop Document 05/19/18 17:43 LA (Rec: 05/19/18 17:43 LA [id number]) Intravenous Solution Start Date 05/19/18 Start Time 17:43 End Date 05/19/18 End time 18:43 Total Infusion Time 60 Sodium Chloride (Sodium Chloride 0.9%) 1,000 mls @ 100 mls/hr IV .Q10H [facility] Last Admin: 05/20/18 13:47 Dose: 100 mls/hr eMAR Start Stop Document 05/20/18 13:47 RM (Rec: 05/20/18 13:47 RM [id number]) Intravenous Solution Start Date 05/20/18 Start Time 13:47 Vancomycin HCl (Vancomycin 1gm) 1 gm in 250 mls @ 167 mls/hr IVPB .EXTRA DOSE ONE Stop: 05/19/18 19:29 Last Admin: 05/19/18 19:32 Dose: 167 mls/hr eMAR Start Stop Document 05/19/18 19:32 LA (Rec: 05/19/18 19:33 LA [id number]) Intravenous Solution Start Date 05/19/18 Start Time 19:33 End Date 05/19/18 End time 21:03 Total Infusion Time 90 Aztreonam (Azactam 1 Gm) 100 mls @ 100 mls/hr IVPB Q12 EDSON PRN Reason: Protocol Stop: 05/20/18 10:59 Last Admin: 05/19/18 23:05 Dose: 100 mls/hr eMAR Start Stop Document 05/19/18 23:05 MG (Rec: 05/19/18 23:06 MG [email or web address]) Intravenous Solution Start Date 05/19/18 Start Time 23:05 End Date 05/20/18 End time 00:05 Total Infusion Time 60 Acetylcysteine 2,590 mg/ (Dextrose) 512.95 mls @ 128.238 mls/hr IV .Q4H ONE Stop: 05/19/18 22:00 Last Admin: 05/19/18 21:24 Dose: 128.238 mls/hr eMAR Start Stop Document 05/19/18 21:24 MG (Rec: 05/19/18 21:24 MG [id number]) Intravenous Solution Start Date 05/19/18 Start Time 21:24 Sodium Chloride (Sodium Chloride 0.9%) 250 mls @ 999 mls/hr IV .Q16M STA Stop: 05/20/18 01:39 Last Admin: 05/20/18 01:25 Dose: 999 mls/hr eMAR Start Stop Document 05/20/18 01:25 MG (Rec: 05/20/18 04:55 MG [id number]) Intravenous Solution Start Date 05/20/18 Start Time 01:25 End Date 05/20/18 End time 01:40 Total Infusion Time 15 Sodium Chloride (Sodium Chloride 0.9%) 250 mls @ 999 mls/hr IV .Q16M STA Stop: 05/20/18 02:57 Last Admin: 05/20/18 02:45 Dose: 999 mls/hr Comments: bag won't scan eMAR Start Stop Document 05/20/18 02:45 MG (Rec: 05/20/18 04:53 MG [facility]) Intravenous Solution Start Date 05/20/18 Start Time 02:45 End Date 05/20/18 End time 03:00 Total Infusion Time 15 Sodium Chloride (Sodium Chloride 0.9%) 1,000 mls @ 999 mls/hr IV .Q1H1M STA Stop: 05/20/18 09:32 Last Admin: 05/20/18 08:42 Dose: 999 mls/hr eMAR Start Stop Document 05/20/18 08:42 RM (Rec: 05/20/18 08:42 RM [id number]) Intravenous Solution Start Date 05/20/18 Start Time 08:42 Fentanyl Citrate (Fentanyl Citrate/Sodium Chloride 1 Mg/100 Ml) 1,000 mcg in 100 mls @ 2 mls/hr IV .Q24H PRN; Protocol; 20 MCG/HR PRN Reason: TITRATE PER MD ORDER Last Titration: 05/21/18 04:00 Dose: 20 mcg/hr, 2 mls/hr Savage Agitation Sedation Document 05/21/18 04:00 IRIS (Rec: 05/21/18 05:58 [facility] [id number]) Savage Agitation Sedation Scale Savage Agitation Sedation Scale Score -3 Moderate Sedation:Movement or eye opening to voice (no eye contact) Titration Intervention Document 05/21/18 04:00 IRIS (Rec: 05/21/18 05:58 [facility] [id number]) Titration Intake Titration Intake 12 Cumulative Intake 44 Cumulative Intake (Rx) 44 Waste Amount 0 Container Volume 56 Titration Dosing Titration Dose 20 IV Rate 2 Intake/Decrease Decreased Cumulative Dose 440 Sodium Chloride (Sodium Chloride 0.9%) 1,000 mls @ 999 mls/hr IV .Q1H1M STA Stop: 05/20/18 11:49 Last Admin: 05/20/18 11:40 Dose: 999 mls/hr eMAR Start Stop Document 05/20/18 11:40 RM (Rec: 05/20/18 11:40 RM [id number]) Intravenous Solution Start Date 05/20/18 Start Time 10:45 Sodium Bicarbonate 50 meq/ (Sodium Chloride) 1,050 mls @ 75 mls/hr IV .Q14H [facility] Last Admin: 05/20/18 14:08 Dose: 75 mls/hr eMAR Start Stop Document 05/20/18 14:08 RM (Rec: 05/20/18 14:08 RM [id number]) Intravenous Solution Start Date 05/20/18 Start Time 14:08 Sodium Bicarbonate 75 meq/ (Sodium Chloride) 1,075 mls @ 75 mls/hr IV .[id number] EDSON Last Admin: 05/20/18 21:43 Dose: 75 mls/hr eMAR Start Stop Document 05/20/18 21:43 JBO (Rec: 05/20/18 21:44 [facility] [id number]) Intravenous Solution Start Date 05/20/18 Start Time 21:40 Sodium Chloride (Sodium Chloride 0.9%) 1,000 mls @ 999 mls/hr IV .Q1H1M STA Stop: 05/20/18 16:44 Last Admin: 05/20/18 18:17 Dose: 999 mls/hr eMAR Start Stop Document 05/20/18 18:17 RM (Rec: 05/20/18 18:17 RM [id number]) Intravenous Solution Start Date 05/20/18 Start Time 15:50 NOREPINEPHRINE BIT/0.9 % NACL (Levophed 4 Mg/ 250 Ml Ns Premixed) 4 mg in 250 mls @ 15 mls/hr IV .[id number] PRN; Protocol; 4 MCG/MIN PRN Reason: TITRATE PER MD ORDER Last Admin: 05/20/18 23:06 Dose: 4 mcg/min, 15 mls/hr eMAR Start Stop Document 05/20/18 23:06 JBO (Rec: 05/20/18 23:07 [facility] [id number]) Intravenous Solution Start Date 05/20/18 Start Time 23:10 Titration Intervention Document 05/20/18 23:06 JBO (Rec: 05/20/18 23:07 JB [id number]) Titration Intake Waste Amount 0 Container Volume 250 Titration Dosing Titration Dose 4 IV Rate 15 Intake/Decrease Started Sodium Chloride (Sodium Chloride 0.45%) 1,000 mls @ 75 mls/hr IV .[id number] EDSON Last Admin: 05/22/18 05:25 Dose: 75 mls/hr eMAR Start Stop Document 05/22/18 05:25 MHA (Rec: 05/22/18 05:25 [id number]) Intravenous Solution Start Date 05/22/18 Start Time 05:25 Methadone HCl (Methadone) 120 mg PO STAT STA Stop: 05/20/18 13:07 Last Admin: 05/20/18 13:41 Dose: 120 mg [facility] Pain Assessment Document 05/20/18 13:41 RM (Rec: 05/20/18 13:42 RM [id number]) Pain Reassessment Is this a pain reassessment? No Methadone HCl (Methadone) 120 mg PO DAILY [facility] Last Admin: 05/23/18 09:43 Dose: 120 mg [facility] Pain Assessment Document 05/23/18 09:43 SOUSV (Rec: 05/23/18 09:43 SOUSV [id number]) Pain Reassessment Is this a pain reassessment? No Presence of Pain Presence of Pain No Re-Assess: [facility] Pain Assessment Document 05/23/18 10:43 SOUSV (Rec: 05/23/18 12:05 S[id number]) Pain Reassessment Is this a pain reassessment? Yes Sleep Is patient sleeping during reassessment? No Presence of Pain Presence of Pain No Methadone HCl (Methadone) 10 mg PO ONCE ONE Stop: 05/23/18 12:45 Last Admin: 05/23/18 12:54 Dose: 10 mg [facility] Pain Assessment Document 05/23/18 12:54 SOUSV (Rec: 05/23/18 12:54 [facility] Pain Reassessment Is this a pain reassessment? No Presence of Pain Presence of Pain No Re-Assess: [facility] Pain Assessment Document 05/23/18 13:54 SOUSV (Rec: 05/23/18 14:08 [id number]) Pain Reassessment Is this a pain reassessment? No Sleep Is patient sleeping during reassessment? No Presence of Pain Presence of Pain No Methylprednisolone (Solu-Medrol) 125 mg IVP STAT STA Stop: 05/19/18 16:20 Last Admin: 05/19/18 16:36 Dose: 125 mg IVP Administration Document 05/19/18 16:36 LA (Rec: 05/19/18 16:36 LA [id number]) Charges for Administration # of IVP Administrations 1 Methylprednisolone (Solu-Medrol) 40 mg IVP Q8 [facility] Last Admin: 05/19/18 21:24 Dose: 40 mg IVP Administration Document 05/19/18 21:24 MG (Rec: 05/19/18 21:24 MG [facility]) Charges for Administration # of IVP Administrations 1 Methylprednisolone (Solu-Medrol) 60 mg IVP Q8 [facility] Last Admin: 05/21/18 05:15 Dose: 60 mg IVP Administration Document 05/21/18 05:15 JBO (Rec: 05/21/18 05:16 JBO [id number]) Charges for Administration # of IVP Administrations 1 Methylprednisolone (Solu-Medrol) 40 mg IVP Q12 [facility] Methylprednisolone (Solu-Medrol) 40 mg IVP 0600,1800 [facility] Last Admin: 05/22/18 11:15 Dose: 40 mg IVP Administration Document 05/22/18 11:15 JUR (Rec: 05/22/18 11:15 JUR [id number]) Charges for Administration # of IVP Administrations 1 Midazolam HCl (Versed Inj) 6 mg IVP ONCE ONE Stop: 05/20/18 06:57 Last Admin: 05/20/18 06:15 Dose: 6 mg IVP Administration Document 05/20/18 06:15 QES (Rec: 05/20/18 08:02 QES [id number]) Charges for Administration # of IVP Administrations 1 Primaquine Phosphate (Primaquine) 26.3 mg PO ONCE ONE PRN Reason: Protocol Stop: 05/20/18 16:19 Last Admin: 05/20/18 18:22 Dose: Sodium Bicarbonate (Sodium Bicarbonate Tab) 1,300 mg PO BID [facility] Last Admin: 05/23/18 09:42 Dose: 1,300 mg Sodium Bicarbonate (Sodium Bicarbonate Tab) 650 mg PO BID [facility] Last Admin: 05/24/18 09:37 Dose: 650 mg - Ericaibe Statement The provider has reviewed the documentation as recorded by the Ericaibmelony Iglesias All medical record entries made by the Kobe were at my direction and personally dictated by me. I have reviewed the chart and agree that the record accurately reflects my personal performance of the history, physical exam, medical decision making, and the department course for this patient. I have also personally directed, reviewed, and agree with the discharge instructions and disposition. Disposition/Present on Arrival - Present on Arrival Any Indicators Present on Arrival: No History of DVT/PE: No History of Uncontrolled Diabetes: No Urinary Catheter: No History of Decub. Ulcer: No History Surgical Site Infection Following: None - Disposition Have Diagnosis and Disposition been Completed?: Yes Diagnosis: Pneumonia, Hypoxia, PCP (pneumocystis carinii pneumonia) Disposition: HOSPITALIZED Disposition Time: 17:06 Patient Plan: Admission Condition: FAIR
[2018-05-19 13:39] LABS: VENOUS BLOOD GAS PO2 56 mm/Hg (30-55); VENOUS BLOOD PH 7.09 (7.32-7.43)
[2018-05-19 13:44] LABS: BASO # 0.04 K/mm3 (0.0-2.0); BASO % 0.4 % (0.0-3.0); EOS % 0.3 % (1.5-5.0); GRAN # 8.41 (1.4-6.5); GRAN % 79.1 % (50.0-68.0); LYMPH # 1.3 (1.2-3.4); LYMPH % 12.4 % (22.0-35.0); MEAN CELL VOLUME 85.1 fl (80.0-105.0); MEAN CORPUSCULAR HEMOGLOBIN 26.1 pg (25.0-35.0); MEAN CORPUSCULAR HGB CONC 30.7 g/dl (31.0-37.0); MEAN PLATELET VOLUME 9.9 fl (7.0-11.0); MONO # 0.8 (0.1-0.6); MONO % 7.8 % (1.0-6.0); RBC 3.83 10^6/uL (3.5-6.1); RED CELL DISTRIBUTION WIDTH 16.2 % (11.5-14.5); WHITE BLOOD COUNT 10.6 10^3/ul (4.5-11.0)
[2018-05-19 14:26] LABS: ALB/GLOB RATIO 0.7 (1.1-1.8); ALBUMIN 2.8 g/dL (3.0-4.8); CALCIUM 8.7 mg/dL (8.4-10.5); TROPONIN I 0.09 ng/mL
--- NOTE | 2018-05-19 15:44 | RAD ---
Date of service: 05/19/2018 HISTORY: shortness of breath COMPARISON: 04/15/2018 FINDINGS: LUNGS: No active pulmonary disease. PLEURA: No significant pleural effusion identified, no pneumothorax apparent. CARDIOVASCULAR: Normal. OSSEOUS STRUCTURES: No significant abnormalities. VISUALIZED UPPER ABDOMEN: Normal. OTHER FINDINGS: None. IMPRESSION: No active disease.
[2018-05-19] MEDS ORDERED: Sodium Chloride 0.9% 1,000 ML IV STA (16:13)
[2018-05-19 16:17] LABS: ARTERIAL BLOOD GAS HCO3 19.2 mmol/L (21-28); ARTERIAL BLOOD GAS HEMOGLOBIN 10.1 g/dL (11.7-17.4); ARTERIAL BLOOD GAS O2 CAPACITY 13.8 mL/dl (16-24); ARTERIAL BLOOD GAS O2 CONTENT 12.1 ML/dl (15-23); ARTERIAL BLOOD GAS O2 SAT 87.5 % (95-98); ARTERIAL BLOOD GAS PCO2 59 mm/Hg (35-45)
[2018-05-19 16:25] LABS: ARTERIAL BLOOD GAS PH 7.12 (7.35-7.45)
[2018-05-19] MEDS ORDERED: DEXTROSE 5% IV ONE ×2 (16:30→18:01)
[2018-05-19] MEDS ORDERED: WATER IV ONE ×2 (16:30→18:01)
[2018-05-19] MEDS ORDERED: ACETYLCYSTEINE IV ONE ×2 (16:30→18:01)
[2018-05-19] MEDS ORDERED: Albuterol-Ipratrop 3 mg / 0.5 (3 ml) UD IH STA (16:56)
[2018-05-19 17:32] LABS: URINE BILIRUBIN NEGATIVE (NEGATIVE); URINE BLOOD NEGATIVE (NEGATIVE); URINE GLUCOSE (UA) NEGATIVE (NEGATIVE); URINE LEUKOCYTE ESTERASE NEGATIVE Leu/uL (NEGATIVE); URINE PROTEIN 100 mg/dL (<30 mg/dL); URINE UROBILINOGEN 0.2 E.U./dL (<1 E.U./dL)
[2018-05-19 17:34] LABS: URINE APPEARANCE CLEAR (CLEAR); URINE COLOR YELLOW (YELLOW)
[2018-05-19 17:42] LABS: URINE RBC NEGATIVE /hpf (0-2)
[2018-05-19 17:43] LABS: URINE BACTERIA SMALL (NEG); URINE HYALINE CAST 0 - 2 /hpf
[2018-05-19] MEDS ORDERED: Aztreonam 500 mg Inj IM SCH (17:45)
[2018-05-19] MEDS ORDERED: Vancomycin 1 g Inj IVPB SCH (17:45)
[2018-05-19 17:58] LABS: BENZODIAZEPINES, UR NEGATIVE (NEGATIVE); PHENCYCLIDINE, UR NEGATIVE (NEGATIVE)
[2018-05-19] MEDS ORDERED: Vancomycin 1gm in NS 250ml IVPB ONE (18:00)
[2018-05-19 18:08] LABS: BARBITURATES, UR NEGATIVE (NEGATIVE); OPIATES, UR NEGATIVE (NEGATIVE)
--- NOTE | 2018-05-19 18:18 | CP.PCM.CON ---
<Ghassan Vee - Last Filed: 05/19/18 17:16> History of Present Illness - History of Present Illness History of Present Illness: Ghassan Vee, PGY1 ICU Consult Note for Dr. Haddad Patient is a 37 y/o F with PMHx of HIV (medication non-compliance), PCP pneumonia, neck abscess, and Hepatitis C who presented to ED c/o shortness of breath, fever, and non-productive cough. Patient was recently admitted to the hospital about 3 weeks ago for her PCP pneumonia but says that she has not gotten better since then. In the ED, patient was in hypercapnic respiratory failure; AB.12/59/63. Patient was having shortness of breath on presentation. CXR was done, showing no active disease. Patient presented with tachycardia. ICU was consulted for management. Patient was examined in the ED. She has cough, shortness of breath, fever, chills, and chest tightness. She says she has generalized body pain that is dull and rated it 8/10. Her AST/ALT were elevated: 4500/2300. Patient said that she did not take tylenol. She used motrin for her fevers. Patient has a BUN/Cr of 46/1.8 (baseline creatinine is 0.7). Patient does not endorse any abdominal pain and denies nausea, vomiting, diarrhea. A Full 12 point ROS was conducted and unremarkable except as stated above. From Patient Interview and prior charts: PMHx: PCP Pneumonia, HIV, Neck Abscess, Hepatitis C, Asthma, COPD, Bronchitis PSHx: none Meds: Prednisone, Klonopin, Mirilax, PTX, Remeron, Motrin, Pepcid, Atovaquone, Duonebs, Ventolin (history of medication non-compliance) Allergies: levofloxacin, Penicillins, TMP/SMX, azithromycin, flexeril Social Hx: Former smoker. Denies alcohol use. IV drug user. FamilyHx: non contributory. Review of Systems - Review of Systems All systems: reviewed and no additional remarkable complaints except (as per HPI.) Past Patient History - Infectious Disease Hx of Infectious Diseases: None - Tetanus Immunizations Tetanus Immunization: Unknown - Past Social History Smoking Status: Former Smoker - CARDIAC Hx Cardiac Disorders: Yes - PULMONARY Hx Respiratory Disorders: Yes (has nebulizer machine at home) Hx Asthma: Yes Hx Bronchitis: Yes Hx Chronic Obstructive Pulmonary Disease (COPD): Yes Hx Pneumonia: Yes - NEUROLOGICAL Hx Migraine: Yes - RENAL Hx Chronic Kidney Disease: No - ENDOCRINE/METABOLIC Hx Endocrine Disorders: No - HEMATOLOGICAL/ONCOLOGICAL Hx Blood Disorders: Yes (blood transfusion) Hx AIDS: Yes Hx Hepatitis C: Yes (IVDU) - INTEGUMENTARY Hx Dermatological Problems: Yes - MUSCULOSKELETAL/RHEUMATOLOGICAL Hx Musculoskeletal Disorders: Yes Hx Back Pain: Yes Hx Falls: No Other/Comment: SCOLIOSIS - GASTROINTESTINAL Hx Gastrointestinal Disorders: Yes - GENITOURINARY/GYNECOLOGICAL Hx Genitourinary Disorders: Yes Hx Urinary Tract Infection: Yes - PSYCHIATRIC Hx Psychophysiologic Disorder: Yes Hx Anxiety: Yes Hx Substance Use: No Other/Comment: hx ivdu/cocaine stopped 6 yrs ago on methadone program - SURGICAL HISTORY Other/Comment: right anterior neck SX for abcesses bx neg - ANESTHESIA Hx Anesthesia: Yes Hx Anesthesia Reactions: No Hx Malignant Hyperthermia: No Meds Allergies/Adverse Reactions: Allergies Allergy/AdvReac Type Severity Reaction Status Date / Time levofloxacin [From Levaquin] Allergy RASH Verified 05/19/18 10:22 Penicillins Allergy RASH Verified 05/19/18 10:22 sulfamethoxazole Allergy ANGIOEDEMA Verified 05/19/18 10:22 [From Bactrim] trimethoprim [From Bactrim] Allergy ANGIOEDEMA Verified 05/19/18 10:22 azithromycin [From Zithromax] AdvReac RASH Verified 05/19/18 10:22 flexeril AdvReac RASH Uncoded 05/19/18 10:22 - Medications Medications: Current Medications Acetylcysteine 7,748 mg/ (Dextrose) 238.74 mls @ 238.74 mls/hr IV .Q1H ONE Stop: 05/19/18 17:29 Clindamycin Phosphate 900 mg/ (Sodium Chloride) 106 mls @ 106 mls/hr IVPB Q8 EDSON PRN Reason: Protocol Primaquine Phosphate (Primaquine) 26.3 mg PO ONCE ONE PRN Reason: Protocol Stop: 05/20/18 16:19 Physical Exam - Constitutional Appears: Cachectic - Head Exam Head Exam: ATRAUMATIC, NORMAL INSPECTION, NORMOCEPHALIC - Eye Exam Eye Exam: EOMI, Normal appearance - Neck Exam Neck exam: Positive for: Full Rom - Respiratory Exam Respiratory Exam: Wheezes (diffuse wheezing bilaterally). absent: Accessory Muscle Use, Chest Wall Tenderness, Decreased Breath Sounds, Rales, Rhonchi - Cardiovascular Exam Cardiovascular Exam: Systolic Murmur. absent: Gallop, JVD - GI/Abdominal Exam GI & Abdominal Exam: Normal Bowel Sounds, Soft. absent: Bruit, Firm, Rebound, Rigid, Tenderness - Extremities Exam Extremities exam: Positive for: pedal edema (+2 Pitting edema of bilateral lower extremities), pedal pulses present. Negative for: calf tenderness, tenderness - Neurological Exam Neurological exam: Alert Results - Vital Signs Recent Vital Signs: Last Vital Signs Temp 97.6 F 05/19/18 15:55 Pulse 105 H 05/19/18 15:55 Resp 20 05/19/18 15:55 BP 98/70 L 05/19/18 15:55 Pulse Ox 86 L 05/19/18 15:55 - Labs Result Diagrams: 05/19/18 13:26 05/19/18 13:26 Labs: Laboratory Results - last 24 hr 05/19/18 05/19/18 05/19/18 13:26 13:26 13:26 WBC 10.6 D RBC 3.83 Hgb 10.0 L Hct 32.6 L MCV 85.1 MCH 26.1 MCHC 30.7 L RDW 16.2 H Plt Count 198 MPV 9.9 Gran % 79.1 H Lymph % (Auto) 12.4 L [place] % (Auto) 7.8 H Eos % (Auto) 0.3 L Baso % (Auto) 0.4 Gran # 8.41 H Lymph # (Auto) 1.3 [place] # (Auto) 0.8 H Eos # (Auto) 0.0 Baso # (Auto) 0.04 D-Dimer, Quantitative pCO2 pO2 56 H HCO3 ABG pH ABG Total CO2 ABG O2 Saturation ABG O2 Content ABG Base Excess ABG Hemoglobin ABG Carboxyhemoglobin POC ABG HHb (Measured) ABG Methemoglobin ABG O2 Capacity VBG pH 7.09 L* VBG pCO2 73.0 H* VBG HCO3 22.1 VBG Total CO2 24.3 VBG O2 Sat (Calc) 80.9 H VBG Base Excess -9.0 L VBG Potassium 5.3 H Hgb O2 Saturation Sodium 136.0 140 Chloride 107.0 107 Glucose 62 L Lactate 1.5 FiO2 21.0 Potassium 5.3 H Carbon Dioxide 22 Anion Gap 16 BUN 46 H Creatinine 1.8 H Est GFR ( Amer) 38 Est GFR (Non-Af Amer) 32 Random Glucose 66 L Calcium 8.7 Magnesium 2.3 H Total Bilirubin 0.3 AST 4513 H ALT 2321 H Alkaline Phosphatase 150 H D Lactate Dehydrogenase 37034 H Total Creatine Kinase 109 Troponin I 0.09 Total Protein 6.8 Albumin 2.8 L Globulin 4.0 Albumin/Globulin Ratio 0.7 L Venous Blood Potassium 5.3 H 05/19/18 05/19/18 13:26 16:13 WBC RBC Hgb Hct MCV MCH MCHC RDW Plt Count MPV Gran % Lymph % (Auto) [place] % (Auto) Eos % (Auto) Baso % (Auto) Gran # Lymph # (Auto) [place] # (Auto) Eos # (Auto) Baso # (Auto) D-Dimer, Quantitative 1575 H pCO2 59 H pO2 63.0 L HCO3 19.2 L ABG pH 7.12 L* ABG Total CO2 21.0 L ABG O2 Saturation 87.5 L ABG O2 Content 12.1 L ABG Base Excess -10.1 L ABG Hemoglobin 10.1 L ABG Carboxyhemoglobin 2.4 H POC ABG HHb (Measured) 12.1 H ABG Methemoglobin 0.8 ABG O2 Capacity 13.8 L VBG pH VBG pCO2 VBG HCO3 VBG Total CO2 VBG O2 Sat (Calc) VBG Base Excess VBG Potassium Hgb O2 Saturation 84.7 L Sodium Chloride Glucose Lactate FiO2 40.0 Potassium Carbon Dioxide Anion Gap BUN Creatinine Est GFR ( Amer) Est GFR (Non-Af Amer) Random Glucose Calcium Magnesium Total Bilirubin AST ALT Alkaline Phosphatase Lactate Dehydrogenase Total Creatine Kinase Troponin I Total Protein Albumin Globulin Albumin/Globulin Ratio Venous Blood Potassium Assessment & Plan - Assessment and Plan (Free Text) Assessment: Patient is a 37 y/o F with PMHx of HIV (medication non-compliance), PCP pneumonia, neck abscess, and Hepatitis C who presented to ED c/o shortness of breath, fever, and non-productive cough. Patient had a prior admission to the hospital for PCP pneumonia, however she claims that it has not improved. Patient presents to the ED with transaminitis and worsening renal function. Patient is receiving workup for sepsis. In the ED, patient was in hypercapnic respiratory failure. Patient placed on BiPAP. ICU was consulted for management. Plan: 1. Hypercapnic Respiratory Failure 2/2 to PCP Pneumonia/COPD/Asthma - continue on BiPAP: settings of / on 100% FiO2 - Primaquine and clindamycin for PCP; history of HIV and medicatio non- compliance - Vanco and Aztreonem for broad spectrum coverage - ID consulted, f/u recs - repeat abg - repeat CXR - Sepsis workup; panculture, procal level f/u; maintain MAP > 65; IVF - solumedrol - duonebs - f/u CD4 count 2. Transaminitis possibly 2/2 drug toxicity - AST/ALT: 4500/2300+ - repeat cmp - f/u acetaminophen levels - NAC given - f/u salicylic levels - Utox f/u - Urine lytes - RUQ sono pending - Prior History of Hep C (med non-compliance) 3. BERNICE with no prior history of CKD - BUN/Cr of 46/1.8 - F/u CMP - IVF: NS at a rate of 100 Dispo: Patient will be managed in the ICU. Case was discussed and reviewed with Attending Physician Dr. Haddad. <Joseph Haddad - Last Filed: 05/19/18 18:58> Meds - Medications Medications: Current Medications Clindamycin Phosphate 900 mg/ (Sodium Chloride) 106 mls @ 106 mls/hr IVPB Q8 EDSON PRN Reason: Protocol Sodium Chloride (Sodium Chloride 0.9%) 1,000 mls @ 100 mls/hr IV .Q10H EDSON Vancomycin HCl (Vancomycin 1gm) 1 gm in 250 mls @ 167 mls/hr IVPB DAILY EDSON Vancomycin HCl (Vancomycin 1gm) 1 gm in 250 mls @ 167 mls/hr IVPB .EXTRA DOSE ONE Stop: 05/19/18 19:29 Aztreonam (Azactam 1 Gm) 100 mls @ 100 mls/hr IVPB Q12 EDSON PRN Reason: Protocol Stop: 05/20/18 10:59 Acetylcysteine 2,590 mg/ (Dextrose) 512.95 mls @ 128.238 mls/hr IV .Q4H ONE Stop: 05/19/18 22:00 Methylprednisolone (Solu-Medrol) 40 mg IVP Q8 EDSON Primaquine Phosphate (Primaquine) 26.3 mg PO ONCE ONE PRN Reason: Protocol Stop: 05/20/18 16:19 Results - Vital Signs Recent Vital Signs: Last Vital Signs Temp 97.6 F 05/19/18 16:44 Pulse 108 H 05/19/18 16:44 Resp 12 05/19/18 16:44 BP 110/70 05/19/18 16:44 Pulse Ox 100 05/19/18 16:44 - Labs Result Diagrams: 05/19/18 13:26 05/19/18 13:26 Labs: Laboratory Results - last 24 hr 05/19/18 05/19/18 17:20 17:25 Urine Color Yellow Urine Appearance Clear Urine pH 6.0 Ur Specific [place] >= 1.030 Urine Protein 100 H Urine Glucose (UA) Negative Urine Ketones Negative Urine Blood Negative Urine Nitrate Negative Urine Bilirubin Negative Urine Urobilinogen 0.2 Ur Leukocyte Esterase Negative Urine RBC Negative Urine WBC 2 - 5 Ur Epithelial Cells 1 - 3 Urine Bacteria Small Hyaline Casts 0 - 2 Urine Opiates Screen Negative Urine Methadone Screen No result Ur Barbiturates Screen Negative Ur Phencyclidine Scrn Negative Ur Amphetamines Screen Negative U Benzodiazepines Scrn Negative U Oth Cocaine Metabols Negative U Cannabinoids Screen No result Assessment & Plan - Assessment and Plan (Free Text) Plan: Patient seen and examined with resident, agree with note with following additions/exceptions: Patient is 37yo female with PMhx of HIV/AIDS, last CD4 count <20, non compliance with meds, PCP PNA, Hep C, hx of IVDU, recent admission to [facility] for PCP PNA presents for fever, chills, cough, and SOB. Pt reprots she was taking all her meds since discharge, returns with congestion SOB, fever, chills. In the ER noted to have hypercapnia, hypoxia, and elevated LFTs. Currently afebrile, BP stable, AAOx3, NAD, providing full history. PNA, PCP SOB Fever elevated LFTs HIV/AIDs Hx of IVDU Liver failure without coma Recommend: - cont with BIPAP, 12/5/40%, repeat ABG, daily CXR - duonebs PRN - Solumedrol 40mg Q8hr IV - broad spectrum abx, Aztreonam, Vanco (PCN allergy) - PCP tx Primaquin, Clinda - ID eval - Panculture Ucx, BCx, Procal - Renal eval - consult Liver team at [facility], obtain GI consult - check Utox, tylenol level, ASA level - NAC - IV fluids - Ua, Ulytes - Renal sono - check INR - repeat morning labs - GI ppx - DVT ppx - Admit top MICU critical care time 40 minutes
[2018-05-19 18:30] LABS: INR 1.49 (0.93-1.08); PROTHROMBIN TIME 17.1 SECONDS (9.4-12.5)
[2018-05-19 18:33] LABS: ACETAMINOPHEN < 10.0 ug/ml (10.0-20.0); SALICYLATE < 1 mg/dL (2.0-20.0)
--- NOTE | 2018-05-19 18:53 | US ---
Date of service: 05/19/2018 HISTORY: History of Hep B, elevated LFTs COMPARISON: 03/14/2018. TECHNIQUE: Sonographic evaluation of the abdomen. FINDINGS: LIVER: Measures 17.2 x 13.8 cm. Hepatopedal blood flow. Fatty infiltration manifest ultrasonographically as increased echogenicity of the liver parenchyma. No mass. No intrahepatic bile duct dilatation. GALLBLADDER: Unremarkable. No gallstones. COMMON BILE DUCT: Measures 4.2 mm. No stones. No dilatation. PANCREAS: Unremarkable as visualized. No mass. No ductal dilatation. RIGHT KIDNEY: Measures 4.7 x 12cm. Normal echogenicity. No calculus, mass, or hydronephrosis. LEFT KIDNEY: Measures 3.8 x 11.7cm. Normal echogenicity. No calculus, mass, or hydronephrosis. SPLEEN: Mild splenomegaly. Orthogonal measurements 5.7 x 14.1 cm. AORTA: No aneurysmal dilatation. IVC: Unremarkable. OTHER FINDINGS: None. IMPRESSION: Hepatomegaly, hepatic steatosis. Stable findings. Mild splenomegaly. No acute findings
--- NOTE | 2018-05-19 18:55 | CARD ---
APPROVED REPORT Date of service: 05/19/2018 EKG Measurement Heart [id number] <Conclusion> Sinus tachycardia Rightward axis RSR' or QR pattern in V1 suggests right ventricular conduction delay Borderline ECG
[2018-05-19] MEDS: Sodium Chloride 0.9% 1,000 ML IV SCH (21:24)
[2018-05-19] MEDS ORDERED: MethylPREDNISolone 40 mg Vial IVP SCH (22:00)
[2018-05-19] MEDS ORDERED: Aztreonam 1 Gm in NS 100mL 100 ML IVPB SCH (22:00)
[2018-05-20 00:58] LABS: ARTERIAL BLOOD GAS HCO3 18.9 mmol/L (21-28); ARTERIAL BLOOD GAS HEMOGLOBIN 9.7 g/dL (11.7-17.4); ARTERIAL BLOOD GAS O2 CAPACITY 13.3 mL/dl (16-24); ARTERIAL BLOOD GAS O2 CONTENT 12.3 ML/dl (15-23); ARTERIAL BLOOD GAS O2 SAT 92.5 % (95-98); ARTERIAL BLOOD GAS PCO2 61 mm/Hg (35-45); ARTERIAL BLOOD GAS TCO2 20.8 mmol.L (22-28)
[2018-05-20] MEDS ORDERED: Sodium Chloride 0.9% 250 ML IV STA ×2 (01:24→02:42)
[2018-05-20 02:03] LABS: ARTERIAL BLOOD GAS HCO3 18.9 mmol/L (21-28); ARTERIAL BLOOD GAS HEMOGLOBIN 9.5 g/dL (11.7-17.4); ARTERIAL BLOOD GAS O2 CONTENT 12.4 ML/dl (15-23); ARTERIAL BLOOD GAS O2 SAT 95.1 % (95-98); ARTERIAL BLOOD GAS PCO2 61 mm/Hg (35-45); ARTERIAL BLOOD GAS TCO2 20.8 mmol.L (22-28)
[2018-05-20] MEDS ORDERED: Atovaquone 750 mg/5 ml Susp UD PO SCH (03:00)
[2018-05-20] MEDS: Sodium Chloride 0.9% 1,000 ML IV SCH ×2 (04:57→13:47)
[2018-05-20 05:13] LABS: ARTERIAL BLOOD GAS HCO3 19.7 mmol/L (21-28); ARTERIAL BLOOD GAS O2 SAT 99.2 % (95-98); ARTERIAL BLOOD GAS PCO2 62 mm/Hg (35-45); ARTERIAL BLOOD GAS TCO2 21.6 mmol.L (22-28)
[2018-05-20] MEDS ORDERED: Albuterol-Ipratrop 3 mg / 0.5 (3 ml) UD IH STA (05:31)
[2018-05-20 05:36] LABS: HEMOGLOBIN 9.7 g/dL (12.0-16.0); MEAN CELL VOLUME 85.8 fl (80.0-105.0); MEAN CORPUSCULAR HEMOGLOBIN 26.4 pg (25.0-35.0); MEAN CORPUSCULAR HGB CONC 30.8 g/dl (31.0-37.0); MEAN PLATELET VOLUME 10.1 fl (7.0-11.0); RBC 3.67 10^6/uL (3.5-6.1); RED CELL DISTRIBUTION WIDTH 16.2 % (11.5-14.5)
[2018-05-20 05:38] LABS: ARTERIAL BLOOD GAS PH 7.11 (7.35-7.45)
[2018-05-20 05:45] LABS: WHITE BLOOD COUNT 25.2 10^3/ul (4.5-11.0)
[2018-05-20 05:48] LABS: INR 1.41 (0.93-1.08); PROTHROMBIN TIME 16.3 SECONDS (9.4-12.5)
[2018-05-20] MEDS ORDERED: Midazolam 2 MG/2 ML VIAL ONE ×3 (06:05→06:15)
[2018-05-20 06:42] LABS: ALB/GLOB RATIO 0.6 (1.1-1.8); ALBUMIN 2.5 g/dL (3.0-4.8); CALCIUM 8.1 mg/dL (8.4-10.5)
[2018-05-20] MEDS ORDERED: Midazolam 2 MG/2 ML VIAL IVP ONE (06:56)
[2018-05-20] MEDS: MethylPREDNISolone 40 mg Vial IVP SCH ×3 (07:03→21:13)
[2018-05-20 08:04] LABS: ARTERIAL BLOOD GAS HCO3 17.7 mmol/L (21-28); ARTERIAL BLOOD GAS HEMOGLOBIN 9.2 g/dL (11.7-17.4); ARTERIAL BLOOD GAS O2 CAPACITY 12.7 mL/dl (16-24); ARTERIAL BLOOD GAS O2 SAT 94.5 % (95-98); ARTERIAL BLOOD GAS PCO2 57 mm/Hg (35-45); ARTERIAL BLOOD GAS TCO2 19.4 mmol.L (22-28)
[2018-05-20] MEDS ORDERED: Sodium Chloride 0.9% 1,000 ML IV STA ×3 (08:32→15:44)
--- NOTE | 2018-05-20 09:12 | RAD ---
Date of service: 05/20/2018 HISTORY: post intubation COMPARISON: Earlier same day FINDINGS: LUNGS: The endotracheal tube and nasogastric tube are in satisfactory position. PLEURA: No significant pleural effusion identified, no pneumothorax apparent. CARDIOVASCULAR: Normal. OSSEOUS STRUCTURES: No significant abnormalities. VISUALIZED UPPER ABDOMEN: Normal. OTHER FINDINGS: None. IMPRESSION: The endotracheal tube and nasogastric tube are in satisfactory position.
[2018-05-20] MEDS: Primaquine 26.3 mg Tab PO SCH (09:22)
[2018-05-20] MEDS: Meropenem IV 1 gm in NS 50 ML IVPB SCH ×2 (09:23→21:12)
--- NOTE | 2018-05-20 09:26 | RAD ---
Date of service: 05/20/2018 HISTORY: non-compliant HIV patient with sob and cough COMPARISON: 05/19/2018 FINDINGS: LUNGS: There is an infiltrate at the right lung base. PLEURA: No significant pleural effusion identified, no pneumothorax apparent. CARDIOVASCULAR: Mild cardiomegaly OSSEOUS STRUCTURES: No significant abnormalities. VISUALIZED UPPER ABDOMEN: Normal. OTHER FINDINGS: None. IMPRESSION: New infiltrate at the right lung base
--- NOTE | 2018-05-20 09:47 | NM ---
Date of service: 05/19/2018 COMPARISON: V/Q scan 02/08/2018 TECHNIQUE: 2.5 mCI technetium 99-m MAA administered intravenously. FINDINGS: VENTILATION COMPONENT: Not performed PERFUSION COMPONENT: There is diminished flow in the upper lobes similar to the previous exam. This is unlikely to represent pulmonary embolus and is more consistent with COPD. There is no ventilation component obtained for comparison therefore the scan is indeterminate for pulmonary embolism. IMPRESSION: Perfusion scan indeterminate for pulmonary embolism. Findings most likely due to COPD
[2018-05-20] MEDS ORDERED: Fentanyl 1000mcg/100ml NS 1,000 MCG/100 ML BAG IV PRN (09:49)
[2018-05-20] MEDS ORDERED: Vancomycin 1gm in NS 250ml IVPB SCH (10:00)
--- NOTE | 2018-05-20 10:18 | CP.PCM.CON ---
<Krishna Tello - Last Filed: 05/20/18 12:42> History of Present Illness - History of Present Illness History of Present Illness: GI Consult Note for Dr. Taryn Tello, PGY-3 IM This is a 37 yo F with PMH of HIV (medication non-compliance), PCP pneumonia, neck abscess, and Hepatitis C who represented to [facility] with complaint of shortness of breath, fever, and non-productive cough. She was recently admitted to the hospital about 3 weeks ago for her PCP pneumonia but says that she has not gotten better since then. After arrival, she developed hypercapnic respiratory failure, necessitating intubation this AM after not improving on BiPAP. GI was consulted due to severely elevated and worsening transaminases ( AST/ALT on arrival 4513/2321, now 6619/3328). HPI/ROS/PE limited as patient was intubated and sedated at time of exam. Minimally arousable with noxious physical stimuli, but rapidly returns to somnolence, not following commands. ICU team reports that patient claims to have been complaint with medications after last discharge, but this is suspect given repeated history of medication non-compliance. ICU team also reports discussing case with Liver team at [facility], who believes this is shock liver, likely from septic shock. No plan for transfer/transplant at this time. PMH: PCP Pneumonia, HIV, Neck Abscess, Hepatitis C, Asthma, COPD, Bronchitis PSH: none Social Hx: (as per charting) Former smoker. Denies alcohol use. IV drug user. Fam Hx: (as per charting) non contributory PMD: Dr. Carter (unclear if she is actually following up as an outpatient) Review of Systems - Review of Systems Systems not reviewed;Unavailable: Intubated Past Patient History - Infectious Disease Hx of Infectious Diseases: None - Tetanus Immunizations Tetanus Immunization: Unknown - Past Social History Smoking Status: Heavy Smoker > 10 Cigarettes Daily - CARDIAC Hx Cardiac Disorders: Yes Hx Angina: No Hx Cardia Arrhythmia: No Hx Circulatory Problems: No Hx Congestive Heart Failure: No Hx Heart Murmur: No Hx Heart Transplant: No Hx Hypercholesterolemia: No Hx Hypertension: No Hx Internal Defibrillator: No Hx Mitral Valve Prolapse: No Hx Pacemaker: No Hx Peripheral Edema: Yes Hx Peripheral Vascular Disease: No - PULMONARY Hx Respiratory Disorders: Yes Hx Asthma: Yes Hx Bronchitis: No Hx Chronic Obstructive Pulmonary Disease (COPD): Yes Hx Emphysema: No Hx Pneumonia: Yes Hx Respiratory Aspiration: No Hx Respiratory Tract Infection: No Hx Sleep Apnea: No Hx Tuberculosis: No - NEUROLOGICAL Hx Neurological Disorder: No Hx Alzheimer's Disease: No HX Cerebrovascular Accident: No Hx Dementia: No Hx Dizziness: No Hx Meningitis: No Hx Migraine: No Hx Parkinson's Disease: No Hx Seizures: No Hx Transient Ischemic Attacks (TIA): No - HEENT Hx HEENT Problems: No Hx Blind: No Hx Cataracts: No Hx Deafness: No Hx Difficulty Chewing: No Hx Epistaxis: No Hx Glaucoma: No Hx Macular Degeneration: No - RENAL Hx Chronic Kidney Disease: No Hx Dialysis: No Hx Kidney Stones: No Hx Neurogenic Bladder: No Hx Pyelonephritis: No Hx Renal (Kidney) Cancer: No Hx Renal Failure: No - ENDOCRINE/METABOLIC Hx Endocrine Disorders: No Hx Adrenal Cancer: No Hx Diabetes Insipidus: No Hx Diabetes Mellitus Type 1: No Hx Diabetes Mellitus Type 2: No Hx Hyperthyroidism: No Hx Hypothyroidism: No Hx Systemic Lupus Erythematosus: No - HEMATOLOGICAL/ONCOLOGICAL Hx Blood Disorders: No Hx AIDS: Yes Hx Anemia: No Hx Cancer: No Hx Chemotherapy: No Hx Cirrhosis: No Hx Hemophilia: No Hx Hepatitis A: No Hx Hepatitis B: No Hx Hepatitis C: Yes Hx Human Immunodeficiency Virus (HIV): Yes Hx Metastesis: No Hx Shingles: No Hx Sickle Cell Disease: No Hx Unexplained Bleeding: No - INTEGUMENTARY Hx Dermatological Problems: No Hx Basil Cell: No Hx Eczema: No Hx Melanoma: No Hx Psoriasis: No Hx Squamous Cell: No - MUSCULOSKELETAL/RHEUMATOLOGICAL Hx Musculoskeletal Disorders: No Hx Arthritis: No Hx Back Pain: No Hx Degenerative Joint Disease: No Hx Falls: No Hx Fractures: No Hx Gout: No Hx Herniated Disk: No Hx Myasthenia Gravis: No Hx Osteoarthritis: No Hx Osteomyelitis: No Hx Osteoporosis: No Hx Rhabdomyolysis: No Hx Spinal Stenosis: No Hx Unsteady Gait: No - GASTROINTESTINAL Hx Gastrointestinal Disorders: No Hx Colostomy: No Hx Crohn's Disease: No Hx Diverticulitis: No Hx Gall Bladder Disease: No Hx Gastroesophageal Reflux: No Hx Ileostomy: No Hx Liver Failure: No Hx Pancreatitis: No HX Swallowing Problems: No Hx Ulcer: No - GENITOURINARY/GYNECOLOGICAL Hx Genitourinary Disorders: No Hx Hematuria: No Hx Incontinence: No Hx Sexually Transmitted Disorders: No Hx Urinary Tract Infection: No - PSYCHIATRIC Hx Psychophysiologic Disorder: No Hx Anxiety: No Hx Bipolar Disorder: No Hx Depression: No Hx Emotional Abuse: No Hx Hallucinations: No Hx Panic Symptoms: No Hx Paranoia: No Hx Post Traumatic Stress Disorder: No Hx Psychosis: No Hx Physical Abuse: No Hx Schizophrenia: No Hx Sexual Abuse: No Hx Substance Use: Yes - SURGICAL HISTORY Hx Surgeries: No Hx Amputation: No Hx Appendectomy: No Hx Cardiac Catheterization: No Hx Cholecystectomy: No Hx Coronary Stent: No Hx Gastric Bypass Surgery: No Hx Hysterectomy: No Hx Joint Replacement: No Hx Kidney Transplant: No Hx Liver Transplant: No Hx Mastectomy: No Hx Musculoskeletal Surgery: No Hx Open Heart Surgery: No Hx Orthopedic Surgery: No Hx Splenectomy: No Hx Valve Replacement: No - ANESTHESIA Hx Anesthesia: Yes Hx Anesthesia Reactions: No Hx Malignant Hyperthermia: No Meds Allergies/Adverse Reactions: Allergies Allergy/AdvReac Type Severity Reaction Status Date / Time levofloxacin [From Levaquin] Allergy RASH Verified 05/19/18 10:22 Penicillins Allergy RASH Verified 05/19/18 10:22 sulfamethoxazole Allergy ANGIOEDEMA Verified 05/19/18 10:22 [From Bactrim] trimethoprim [From Bactrim] Allergy ANGIOEDEMA Verified 05/19/18 10:22 azithromycin [From Zithromax] AdvReac RASH Verified 05/19/18 10:22 flexeril AdvReac RASH Uncoded 05/19/18 10:22 - Medications Medications: Current Medications Heparin Sodium (Porcine) (Heparin) 5,000 units SC Q8H EDSON PRN Reason: Protocol Last Admin: 05/20/18 07:05 Dose: 5,000 units Clindamycin Phosphate 900 mg/ (Sodium Chloride) 106 mls @ 106 mls/hr IVPB Q8 EDSON PRN Reason: Protocol Last Admin: 05/20/18 07:01 Dose: 106 mls/hr Sodium Chloride (Sodium Chloride 0.9%) 1,000 mls @ 100 mls/hr IV .Q10H [facility] Last Admin: 05/20/18 04:57 Dose: 100 mls/hr Meropenem (Merrem Iv 1 Gm Premix) 50 mls @ 100 mls/hr IVPB Q12 EDSON PRN Reason: Protocol Last Admin: 05/20/18 09:23 Dose: 100 mls/hr Fentanyl Citrate (Fentanyl Citrate/Sodium Chloride 1 Mg/100 Ml) 1,000 mcg in 100 mls @ 2 mls/hr IV .Q24H PRN; Protocol; 20 MCG/HR PRN Reason: TITRATE PER MD ORDER Acyclovir 600 mg/ Sodium (Chloride) 100 mls @ 100 mls/hr IV Q12 EDSON PRN Reason: Protocol Methylprednisolone (Solu-Medrol) 60 mg IVP Q8 [facility] Last Admin: 05/20/18 07:03 Dose: 60 mg Primaquine Phosphate (Primaquine) 26.3 mg PO ONCE ONE PRN Reason: Protocol Stop: 05/20/18 16:19 Primaquine Phosphate (Primaquine) 26.3 mg PO DAILY EDSON PRN Reason: Protocol Last Admin: 05/20/18 09:22 Dose: 26.3 mg Physical Exam - Constitutional Appears: Non-toxic Additional comments: Intubated and sedated, ill-appearing, unkempt - Head Exam Head Exam: ATRAUMATIC, NORMAL INSPECTION, NORMOCEPHALIC - Eye Exam Eye Exam: Normal appearance. absent: Conjunctival injection, Scleral icterus Pupil Exam: absent: Fixed, Irregular Additional comments: not moving eyes, not following commands, so unable to assess EOMI - ENT Exam Additional comments: ETT in place, NGT in place - Neck Exam Neck exam: Negative for: Lymphadenopathy Additional comments: old healed scar on left side of neck - Respiratory Exam Additional comments: Intubated and mechanically ventilated, overbreathing the ventilator, diffuse end -expiratory wheezing appreciated in all asif - Cardiovascular Exam Cardiovascular Exam: REGULAR RHYTHM, RRR, +S1, +S2. absent: Bradycardia, Tachycardia, Irregular Rhythm, JVD, +S4 - GI/Abdominal Exam GI & Abdominal Exam: Diminished Bowel Sounds, Distended, Firm. absent: Normal Bowel Sounds, Rigid, Soft Additional comments: unable to assess tenderness, sedated, no overt reaction to abdominal palpation - Extremities Exam Extremities exam: Positive for: pedal pulses present. Negative for: joint swelling, pedal edema - Neurological Exam Additional comments: intubated and sedated, arousable to noxious stimuli but returns to somnolence rapidly - Psychiatric Exam Additional comments: unable to assess, pt intubated - Skin Skin Exam: Dry, Intact, Normal Color, Warm Results - Vital Signs Recent Vital Signs: Last Vital Signs Temp 98.5 F 05/19/18 21:23 Pulse 98 H 05/20/18 10:00 Resp 16 05/20/18 07:46 BP 93/59 L 05/20/18 10:00 Pulse Ox 93 L 05/20/18 10:00 - Labs Result Diagrams: 05/20/18 04:45 05/20/18 04:45 Labs: Laboratory Results - last 24 hr 05/19/18 05/19/18 05/20/18 17:20 17:25 00:45 WBC RBC Hgb Hct MCV MCH MCHC RDW Plt Count MPV PT INR pCO2 61 H pO2 68.0 L HCO3 18.9 L ABG pH 7.10 L* ABG Total CO2 20.8 L ABG O2 Saturation 92.5 L ABG O2 Content 12.3 L ABG Base Excess -10.7 L ABG Hemoglobin 9.7 L ABG Carboxyhemoglobin 2.0 H POC ABG HHb (Measured) 7.3 H ABG Methemoglobin 1.0 ABG O2 Capacity 13.3 L ABG Potassium Hgb O2 Saturation 89.7 L Glucose Lactate FiO2 50.0 Pressure Support Inspiratory BiPAP Sodium Potassium Chloride Carbon Dioxide Anion Gap BUN Creatinine Est GFR ( Amer) Est GFR (Non-Af Amer) POC Glucose (mg/dL) Random Glucose Calcium Phosphorus Magnesium Total Bilirubin AST ALT Alkaline Phosphatase Ammonia Total Creatine Kinase Total Protein Albumin Globulin Albumin/Globulin Ratio Arterial Blood Potassium Urine Color Yellow Urine Appearance Clear Urine pH 6.0 Ur Specific [place] >= 1.030 Urine Protein 100 H Urine Glucose (UA) Negative Urine Ketones Negative Urine Blood Negative Urine Nitrate Negative Urine Bilirubin Negative Urine Urobilinogen 0.2 Ur Leukocyte Esterase Negative Urine RBC Negative Urine WBC 2 - 5 Ur Epithelial Cells 1 - 3 Urine Bacteria Small Hyaline Casts 0 - 2 Urine HCG, Qual Urine Opiates Screen Negative Urine Methadone Screen No result Ur Barbiturates Screen Negative Ur Phencyclidine Scrn Negative Ur Amphetamines Screen Negative U Benzodiazepines Scrn Negative U Oth Cocaine Metabols Negative U Cannabinoids Screen No result 05/20/18 05/20/18 05/20/18 01:49 03:30 04:45 WBC 25.2 H* D RBC 3.67 Hgb 9.7 L Hct 31.5 L MCV 85.8 MCH 26.4 MCHC 30.8 L RDW 16.2 H Plt Count 173 MPV 10.1 PT INR pCO2 61 H pO2 78.0 L HCO3 18.9 L ABG pH 7.10 L* ABG Total CO2 20.8 L ABG O2 Saturation 95.1 ABG O2 Content 12.4 L ABG Base Excess -10.7 L ABG Hemoglobin 9.5 L ABG Carboxyhemoglobin 2.4 H POC ABG HHb (Measured) 4.7 ABG Methemoglobin 1.0 ABG O2 Capacity 13.0 L ABG Potassium Hgb O2 Saturation 91.9 L Glucose Lactate FiO2 60.0 Pressure Support Inspiratory BiPAP Sodium Potassium Chloride Carbon Dioxide Anion Gap BUN Creatinine Est GFR ( Amer) Est GFR (Non-Af Amer) POC Glucose (mg/dL) Random Glucose Calcium Phosphorus Magnesium Total Bilirubin AST ALT Alkaline Phosphatase Ammonia Total Creatine Kinase Total Protein Albumin Globulin Albumin/Globulin Ratio Arterial Blood Potassium Urine Color Urine Appearance Urine pH Ur Specific [place] Urine Protein Urine Glucose (UA) Urine Ketones Urine Blood Urine Nitrate Urine Bilirubin Urine Urobilinogen Ur Leukocyte Esterase Urine RBC Urine WBC Ur Epithelial Cells Urine Bacteria Hyaline Casts Urine HCG, Qual Negative Urine Opiates Screen Urine Methadone Screen Ur Barbiturates Screen Ur Phencyclidine Scrn Ur Amphetamines Screen U Benzodiazepines Scrn U Oth Cocaine Metabols U Cannabinoids Screen 05/20/18 05/20/18 05/20/18 04:45 04:45 05:00 WBC RBC Hgb Hct MCV MCH MCHC RDW Plt Count MPV PT 16.3 H INR 1.41 H pCO2 62 H pO2 128.0 H HCO3 19.7 L ABG pH 7.11 L* ABG Total CO2 21.6 L ABG O2 Saturation 99.2 H ABG O2 Content ABG Base Excess -10.5 L ABG Hemoglobin ABG Carboxyhemoglobin POC ABG HHb (Measured) ABG Methemoglobin ABG O2 Capacity ABG Potassium 4.9 Hgb O2 Saturation Glucose 143 H Lactate 0.8 FiO2 80.0 Pressure Support 14 Inspiratory BiPAP 20 Sodium 139 136.0 Potassium 5.0 Chloride 110 H 110.0 H Carbon Dioxide 17 L Anion Gap 17 BUN 50 H Creatinine 1.6 H Est GFR ( Amer) 44 Est GFR (Non-Af Amer) 36 POC Glucose (mg/dL) Random Glucose 138 H Calcium 8.1 L Phosphorus 6.4 H Magnesium 2.1 Total Bilirubin 0.1 L AST 6619 H ALT 3328 H Alkaline Phosphatase 120 Ammonia Total Creatine Kinase Total Protein 6.3 Albumin 2.5 L Globulin 3.8 Albumin/Globulin Ratio 0.6 L Arterial Blood Potassium 4.9 Urine Color Urine Appearance Urine pH Ur Specific [place] Urine Protein Urine Glucose (UA) Urine Ketones Urine Blood Urine Nitrate Urine Bilirubin Urine Urobilinogen Ur Leukocyte Esterase Urine RBC Urine WBC Ur Epithelial Cells Urine Bacteria Hyaline Casts Urine HCG, Qual Urine Opiates Screen Urine Methadone Screen Ur Barbiturates Screen Ur Phencyclidine Scrn Ur Amphetamines Screen U Benzodiazepines Scrn U Oth Cocaine Metabols U Cannabinoids Screen 05/20/18 05/20/18 05/20/18 05:55 07:55 08:10 WBC RBC Hgb Hct MCV MCH MCHC RDW Plt Count MPV PT INR pCO2 57 H pO2 74.0 L HCO3 17.7 L ABG pH 7.10 L* ABG Total CO2 19.4 L ABG O2 Saturation 94.5 L ABG O2 Content 12.0 L ABG Base Excess -11.6 L ABG Hemoglobin 9.2 L ABG Carboxyhemoglobin 1.7 H POC ABG HHb (Measured) 5.4 H ABG Methemoglobin 0.6 ABG O2 Capacity 12.7 L ABG Potassium Hgb O2 Saturation 92.3 L Glucose Lactate FiO2 70.0 Pressure Support Inspiratory BiPAP Sodium Potassium Chloride Carbon Dioxide Anion Gap BUN Creatinine Est GFR ( Amer) Est GFR (Non-Af Amer) POC Glucose (mg/dL) 130 H Random Glucose Calcium Phosphorus Magnesium Total Bilirubin AST ALT Alkaline Phosphatase Ammonia Total Creatine Kinase 156 Total Protein Albumin Globulin Albumin/Globulin Ratio Arterial Blood Potassium Urine Color Urine Appearance Urine pH Ur Specific [place] Urine Protein Urine Glucose (UA) Urine Ketones Urine Blood Urine Nitrate Urine Bilirubin Urine Urobilinogen Ur Leukocyte Esterase Urine RBC Urine WBC Ur Epithelial Cells Urine Bacteria Hyaline Casts Urine HCG, Qual Urine Opiates Screen Urine Methadone Screen Ur Barbiturates Screen Ur Phencyclidine Scrn Ur Amphetamines Screen U Benzodiazepines Scrn U Oth Cocaine Metabols U Cannabinoids Screen 05/20/18 08:10 WBC RBC Hgb Hct MCV MCH MCHC RDW Plt Count MPV PT INR pCO2 pO2 HCO3 ABG pH ABG Total CO2 ABG O2 Saturation ABG O2 Content ABG Base Excess ABG Hemoglobin ABG Carboxyhemoglobin POC ABG HHb (Measured) ABG Methemoglobin ABG O2 Capacity ABG Potassium Hgb O2 Saturation Glucose Lactate FiO2 Pressure Support Inspiratory BiPAP Sodium Potassium Chloride Carbon Dioxide Anion Gap BUN Creatinine Est GFR ( Amer) Est GFR (Non-Af Amer) POC Glucose (mg/dL) Random Glucose Calcium Phosphorus Magnesium Total Bilirubin AST ALT Alkaline Phosphatase Ammonia 67 H Total Creatine Kinase Total Protein Albumin Globulin Albumin/Globulin Ratio Arterial Blood Potassium Urine Color Urine Appearance Urine pH Ur Specific [place] Urine Protein Urine Glucose (UA) Urine Ketones Urine Blood Urine Nitrate Urine Bilirubin Urine Urobilinogen Ur Leukocyte Esterase Urine RBC Urine WBC Ur Epithelial Cells Urine Bacteria Hyaline Casts Urine HCG, Qual Urine Opiates Screen Urine Methadone Screen Ur Barbiturates Screen Ur Phencyclidine Scrn Ur Amphetamines Screen U Benzodiazepines Scrn U Oth Cocaine Metabols U Cannabinoids Screen Assessment & Plan - Assessment and Plan (Free Text) Assessment: This is a 37 yo F with PMH of HIV (medication non-compliance), PCP pneumonia, neck abscess, and Hepatitis C who represented to [facility] with complaint of shortness of breath, fever, and non-productive cough, later developing hypercapnic respiratory failure and requiring intubation. GI consulted for severely elevated transaminases, suspect shock liver insult 2/2 sepsis. Plan: Ddx: acetaminophen tox vs shock liver vs acute viral hepatitis -Abd US obtained notable for stable Hepatomegaly/hepatic steatosis, Mild splenomegaly -Abd X-ray obtained due to abd distension and septic picture, want to rule out acute intestinal perf; negative for free air under diaphragm -CXR notable for R lower infiltrate, Pending CT chest/abd/pelvis w/o contrast -known hx Hep C, not compliant with medications; hepatitis panel positive for Hep B surface antigen as well, pending Hep B surface antibody -received 2x doses of NAC, but acetaminophen level negative, no further doses indicated -Appears acutely septic, non-compliance with discharge therapy and redevelopment of prior PCP pneumonia vs new opportunistic infection ID following, pt currently on Merrem/Acyclovir/Cleocin, received doses of Vanco and Aztreonam on arrival Blood, Urine, Sputum, and AFP cultures pending -acutely elevated and rapidly worsening AST/ALT and normal TBili and Alk Phos consistent with shock liver Currently undergoing aggressive fluid rehydration in ICU to stabilize pressures; defer to ICU team for BP management, pressors -Trend LFTs and Coags daily -As per ICU team, case discussed with Liver team at [facility], likely ischemic insult, no plans for transfer/transplant at this time Patient seen, reviewed, discussed with attending, Dr. Centeno <Anne Centeno V - Last Filed: 05/20/18 23:58> Meds - Medications Medications: Current Medications Arformoterol Tartrate (Brovana) 15 mcg IH [id number] EDSON Last Admin: 05/20/18 20:10 Dose: 15 mcg Budesonide (Pulmicort Respules) 0.5 mg IH [id number] EDSON Last Admin: 05/20/18 20:10 Dose: 0.5 mg Famotidine (Pepcid) 20 mg PO DAILY [facility] Heparin Sodium (Porcine) (Heparin) 5,000 units SC Q8H EDSON PRN Reason: Protocol Last Admin: 05/20/18 21:12 Dose: 5,000 units Clindamycin Phosphate 900 mg/ (Sodium Chloride) 106 mls @ 106 mls/hr IVPB Q8 EDSON PRN Reason: Protocol Last Admin: 05/20/18 21:43 Dose: 106 mls/hr Sodium Chloride (Sodium Chloride 0.9%) 1,000 mls @ 100 mls/hr IV .Q10H EDSON Last Admin: 05/20/18 13:47 Dose: 100 mls/hr Meropenem (Merrem Iv 1 Gm Premix) 50 mls @ 100 mls/hr IVPB Q12 EDSON PRN Reason: Protocol Last Admin: 05/20/18 21:12 Dose: 100 mls/hr Fentanyl Citrate (Fentanyl Citrate/Sodium Chloride 1 Mg/100 Ml) 1,000 mcg in 100 mls @ 2 mls/hr IV .Q24H PRN; Protocol; 20 MCG/HR PRN Reason: TITRATE PER MD ORDER Last Admin: 05/20/18 10:57 Dose: 20 mcg/hr, 2 mls/hr Acyclovir 600 mg/ Sodium (Chloride) 100 mls @ 100 mls/hr IV Q12 EDSON PRN Reason: Protocol Last Admin: 05/20/18 21:42 Dose: 100 mls/hr Sodium Bicarbonate 75 meq/ (Sodium Chloride) 1,075 mls @ 75 mls/hr IV .[id number] EDSON Last Admin: 05/20/18 21:43 Dose: 75 mls/hr NOREPINEPHRINE BIT/0.9 % NACL (Levophed 4 Mg/ 250 Ml Ns Premixed) 4 mg in 250 mls @ 15 mls/hr IV .[id number] PRN; Protocol; 4 MCG/MIN PRN Reason: TITRATE PER MD ORDER Last Admin: 05/20/18 23:06 Dose: 4 mcg/min, 15 mls/hr Methadone HCl (Methadone) 120 mg PO DAILY EDSON Methylprednisolone (Solu-Medrol) 60 mg IVP Q8 EDSON Last Admin: 05/20/18 21:13 Dose: 60 mg Primaquine Phosphate (Primaquine) 26.3 mg PO DAILY EDSON PRN Reason: Protocol Last Admin: 05/20/18 09:22 Dose: 26.3 mg Results - Vital Signs Recent Vital Signs: Last Vital Signs Temp 100 F H 05/20/18 21:23 Pulse 82 05/20/18 22:00 Resp 24 05/20/18 21:23 BP 74/50 L 05/20/18 18:00 Pulse Ox 99 05/20/18 21:23 - Labs Result Diagrams: 05/20/18 04:45 05/20/18 04:45 Labs: Laboratory Results - last 24 hr 05/20/18 05/20/18 05/20/18 00:45 01:49 03:30 WBC RBC Hgb Hct MCV MCH MCHC RDW Plt Count MPV PT INR pCO2 61 H 61 H pO2 68.0 L 78.0 L HCO3 18.9 L 18.9 L ABG pH 7.10 L* 7.10 L* ABG Total CO2 20.8 L 20.8 L ABG O2 Saturation 92.5 L 95.1 ABG O2 Content 12.3 L 12.4 L ABG Base Excess -10.7 L -10.7 L ABG Hemoglobin 9.7 L 9.5 L ABG Carboxyhemoglobin 2.0 H 2.4 H POC ABG HHb (Measured) 7.3 H 4.7 ABG Methemoglobin 1.0 1.0 ABG O2 Capacity 13.3 L 13.0 L ABG Potassium Hgb O2 Saturation 89.7 L 91.9 L Glucose Lactate FiO2 50.0 60.0 Pressure Support Inspiratory BiPAP Sodium Potassium Chloride Carbon Dioxide Anion Gap BUN Creatinine Est GFR ( Amer) Est GFR (Non-Af Amer) POC Glucose (mg/dL) Random Glucose Calcium Phosphorus Magnesium Total Bilirubin AST ALT Alkaline Phosphatase Ammonia Total Creatine Kinase Total Protein Albumin Globulin Albumin/Globulin Ratio Procalcitonin Arterial Blood Potassium Ur Random Sodium Ur Random Urea Nitrogn Urine HCG, Qual Negative Hepatitis A IgM Ab Hep Bs Antigen Hep Bs Antibody Hep B Core IgM Ab Hepatitis C Antibody 05/20/18 05/20/18 05/20/18 04:45 04:45 04:45 WBC 25.2 H* D RBC 3.67 Hgb 9.7 L Hct 31.5 L MCV 85.8 MCH 26.4 MCHC 30.8 L RDW 16.2 H Plt Count 173 MPV 10.1 PT INR pCO2 pO2 HCO3 ABG pH ABG Total CO2 ABG O2 Saturation ABG O2 Content ABG Base Excess ABG Hemoglobin ABG Carboxyhemoglobin POC ABG HHb (Measured) ABG Methemoglobin ABG O2 Capacity ABG Potassium Hgb O2 Saturation Glucose Lactate FiO2 Pressure Support Inspiratory BiPAP Sodium 139 Potassium 5.0 Chloride 110 H Carbon Dioxide 17 L Anion Gap 17 BUN 50 H Creatinine 1.6 H Est GFR ( Amer) 44 Est GFR (Non-Af Amer) 36 POC Glucose (mg/dL) Random Glucose 138 H Calcium 8.1 L Phosphorus 6.4 H Magnesium 2.1 Total Bilirubin 0.1 L AST 6619 H ALT 3328 H Alkaline Phosphatase 120 Ammonia Total Creatine Kinase Total Protein 6.3 Albumin 2.5 L Globulin 3.8 Albumin/Globulin Ratio 0.6 L Procalcitonin 0.33 Arterial Blood Potassium Ur Random Sodium Ur Random Urea Nitrogn Urine HCG, Qual Hepatitis A IgM Ab Hep Bs Antigen Hep Bs Antibody Hep B Core IgM Ab Hepatitis C Antibody 05/20/18 05/20/18 05/20/18 04:45 05:00 05:55 WBC RBC Hgb Hct MCV MCH MCHC RDW Plt Count MPV PT 16.3 H INR 1.41 H pCO2 62 H pO2 128.0 H HCO3 19.7 L ABG pH 7.11 L* ABG Total CO2 21.6 L ABG O2 Saturation 99.2 H ABG O2 Content ABG Base Excess -10.5 L ABG Hemoglobin ABG Carboxyhemoglobin POC ABG HHb (Measured) ABG Methemoglobin ABG O2 Capacity ABG Potassium 4.9 Hgb O2 Saturation Glucose 143 H Lactate 0.8 FiO2 80.0 Pressure Support 14 Inspiratory BiPAP 20 Sodium 136.0 Potassium Chloride 110.0 H Carbon Dioxide Anion Gap BUN Creatinine Est GFR ( Amer) Est GFR (Non-Af Amer) POC Glucose (mg/dL) 130 H Random Glucose Calcium Phosphorus Magnesium Total Bilirubin AST ALT Alkaline Phosphatase Ammonia Total Creatine Kinase Total Protein Albumin Globulin Albumin/Globulin Ratio Procalcitonin Arterial Blood Potassium 4.9 Ur Random Sodium Ur Random Urea Nitrogn Urine HCG, Qual Hepatitis A IgM Ab Hep Bs Antigen Hep Bs Antibody Hep B Core IgM Ab Hepatitis C Antibody 05/20/18 05/20/18 05/20/18 07:55 08:10 08:10 WBC RBC Hgb Hct MCV MCH MCHC RDW Plt Count MPV PT INR pCO2 57 H pO2 74.0 L HCO3 17.7 L ABG pH 7.10 L* ABG Total CO2 19.4 L ABG O2 Saturation 94.5 L ABG O2 Content 12.0 L ABG Base Excess -11.6 L ABG Hemoglobin 9.2 L ABG Carboxyhemoglobin 1.7 H POC ABG HHb (Measured) 5.4 H ABG Methemoglobin 0.6 ABG O2 Capacity 12.7 L ABG Potassium Hgb O2 Saturation 92.3 L Glucose Lactate FiO2 70.0 Pressure Support Inspiratory BiPAP Sodium Potassium Chloride Carbon Dioxide Anion Gap BUN Creatinine Est GFR ( Amer) Est GFR (Non-Af Amer) POC Glucose (mg/dL) Random Glucose Calcium Phosphorus Magnesium Total Bilirubin AST ALT Alkaline Phosphatase Ammonia Total Creatine Kinase 156 Total Protein Albumin Globulin Albumin/Globulin Ratio Procalcitonin Arterial Blood Potassium Ur Random Sodium Ur Random Urea Nitrogn Urine HCG, Qual Hepatitis A IgM Ab Hep Bs Antigen Hep Bs Antibody Positive Hep B Core IgM Ab Hepatitis C Antibody 05/20/18 05/20/18 05/20/18 08:10 08:10 08:17 WBC RBC Hgb Hct MCV MCH MCHC RDW Plt Count MPV PT INR pCO2 pO2 HCO3 ABG pH ABG Total CO2 ABG O2 Saturation ABG O2 Content ABG Base Excess ABG Hemoglobin ABG Carboxyhemoglobin POC ABG HHb (Measured) ABG Methemoglobin ABG O2 Capacity ABG Potassium Hgb O2 Saturation Glucose Lactate FiO2 Pressure Support Inspiratory BiPAP Sodium Potassium Chloride Carbon Dioxide Anion Gap BUN Creatinine Est GFR ( Amer) Est GFR (Non-Af Amer) POC Glucose (mg/dL) Random Glucose Calcium Phosphorus Magnesium Total Bilirubin AST ALT Alkaline Phosphatase Ammonia 67 H Total Creatine Kinase Total Protein Albumin Globulin Albumin/Globulin Ratio Procalcitonin Arterial Blood Potassium Ur Random Sodium 9 Ur Random Urea Nitrogn Urine HCG, Qual Hepatitis A IgM Ab Negative Hep Bs Antigen Negative Hep Bs Antibody Hep B Core IgM Ab Negative Hepatitis C Antibody Reactive 05/20/18 05/20/18 09:26 13:00 WBC RBC Hgb Hct MCV MCH MCHC RDW Plt Count MPV PT INR pCO2 47 H pO2 74.0 L HCO3 16.4 L ABG pH 7.15 L* ABG Total CO2 17.8 L ABG O2 Saturation 95.6 ABG O2 Content 11.9 L ABG Base Excess -11.8 L ABG Hemoglobin 9.0 L ABG Carboxyhemoglobin 1.9 H POC ABG HHb (Measured) 4.3 ABG Methemoglobin 0.6 ABG O2 Capacity 12.4 L ABG Potassium Hgb O2 Saturation 93.2 L Glucose Lactate FiO2 60.0 Pressure Support Inspiratory BiPAP Sodium Potassium Chloride Carbon Dioxide Anion Gap BUN Creatinine Est GFR ( Amer) Est GFR (Non-Af Amer) POC Glucose (mg/dL) Random Glucose Calcium Phosphorus Magnesium Total Bilirubin AST ALT Alkaline Phosphatase Ammonia Total Creatine Kinase Total Protein Albumin Globulin Albumin/Globulin Ratio Procalcitonin Arterial Blood Potassium Ur Random Sodium Ur Random Urea Nitrogn 363 Urine HCG, Qual Hepatitis A IgM Ab Hep Bs Antigen Hep Bs Antibody Hep B Core IgM Ab Hepatitis C Antibody Attending/Attestation - Attestation I have personally seen and examined this patient.: Yes I have fully participated in the care of the patient.: Yes I have reviewed all pertinent clinical information: Yes Notes (Text): This is an addendum to GI consult report dictated by the Concrete Technician.The patient was seen and examined earlier. Medical records, lab studies, imagings were reviewed. Last 24 hours events reviewed. Agreed with the above treatment plan as outlined in Concrete Technician 's notes the with the addition of the following 05/20/18 23:44
--- NOTE | 2018-05-20 11:23 | CP.CCUPN ---
<Ghassan Vee - Last Filed: 05/20/18 13:26> CCU Subjective - Physician Review Subjective (Free Text): Ghassan Vee, PGY1 ICU Progress Note for Dr. Haddad Patient was examined at bedside this morning. Prior to morning sign out, patient was acting more lethargic and was showing unimproved respiratory status (hypercapnic hypoxic respiratory failure) from repeat ABGs. Patient was intubated by the night team successfully, with placement of NG tube and fuentes. Most current vent settings: 450/20/10/70%. Later in morning, patient was having episodes of hypotension (SBP 80/50), given total of 2 L fluid bolus and responded well to fluid resuscitation. A ROS could not be obtained since patient is currently intubated. In light of worsening LFT's, [facility] hepatology fellow was paged ([phone]) and he requested a call back to the transmitting office ([phone]) which was made. The ICU team spoke with Dr. Alonso (hepatology fellow) who was told about the patient and he states that the etiology of the worsening AST/ALT is likely ischemic given episodes of hypotension and low levels of Tbili and acetaminophen. He recommended to maintain SBP > 90 and to work-up possible infectious causes including HSV, HAV/HBV IgM levels, and EBV/CMV IgM levels. He discussed the matter with his attending, and states that the patient is not a candidate for a transplant given likely reversible ischemic damage and that if needed, we can contact ICU for ICU-to-ICU transfer, however, at this time, the [facility] [place] can continue to manage. CCU Objective - Vital Signs / Intake & Output Vital Signs (Last 4 hours): Vital Signs Pulse Resp BP Pulse Ox 05/20/18 10:00 98 H 93/59 L 93 L 05/20/18 09:50 98 H 97 05/20/18 09:45 99 H 92/61 L 96 05/20/18 09:40 98 H 94 L 05/20/18 09:30 96 H 89/59 L 96 05/20/18 09:20 93 H 96 05/20/18 09:15 95 H 84/54 L 96 05/20/18 09:10 95 H 96 05/20/18 09:00 94 H 81/49 L 96 05/20/18 08:50 94 H 95 07/27/18 08:45 94 H 83/51 L 95 05/20/18 08:40 95 H 95 05/20/18 08:30 94 H 80/50 L 94 L 05/20/18 08:21 93 H 87/55 L 89 L 05/20/18 08:20 93 H 95 05/20/18 08:16 94 H 84/53 L 95 05/20/18 08:10 96 H 95 05/20/18 08:00 99 H 85/54 L 93 L 05/20/18 07:50 100 H 94 L 05/20/18 07:48 93/66 L 05/20/18 07:47 102 H 94 L 05/20/18 07:46 16 94 L 05/20/18 07:40 97 H 96 05/20/18 07:30 99 H 90/59 L 98 Intake and Output (Last 8hrs): Intake & Output 05/19/18 05/20/18 05/20/18 22:59 06:59 14:59 Intake Total 2312 Output Total 600 Balance 1712 Weight 57.606 kg Intake: IV 2312 Left Hand 312 Right Antecubital 2000 Output: Urine 600 Urethral (Fuentes) 600 Other: Voiding Method Indwelling Catheter - Physical Exam Head: Positive for: Atraumatic, Normocephalic Pupils: Positive for: PERRL Extroacular Muscles: Positive for: EOMI Conjunctiva: Positive for: Normal Mouth: Positive for: Other (ET Tube in place. ) Nose (External): Positive for: Other (NG tube in place. ) Neck: Positive for: Normal Range of Motion, Other (old scar on rt side of neck) Respiratory/Chest: Positive for: Wheezes (diffuse wheezing bilaterally ). Negative for: Respiratory Distress, Accessory Muscle Use, Rales, Rhonchi Cardiovascular: Positive for: Regular Rate and Rhythm, Normal S1, S2. Negative for: Murmurs Abdomen: Positive for: Normal Bowel Sounds. Negative for: Tenderness, Distention, Peritoneal Signs, Rebound, Guarding Genitourinary/Pelvic Exam: Positive for: Other (Fuentes catheter is draining. ) Back: Positive for: Normal Inspection Upper Extremity: Positive for: Normal Inspection. Negative for: Cyanosis, Edema Lower Extremity: Positive for: Normal Inspection. Negative for: Edema Skin: Positive for: Warm, Dry, Normal Color. Negative for: Rashes Psychiatric: Positive for: Alert, Oriented x 3, Normal Insight, Normal Concentration - Medications Active Medications: Active Medications Generic Name Dose Route Start Last Admin Trade Name Freq PRN Reason Stop Dose Admin Famotidine 20 mg 05/21/18 10:00 Pepcid PO DAILY EDSON Heparin Sodium (Porcine) 5,000 units 05/19/18 21:30 05/20/18 07:05 Heparin SC 5,000 units Q8H EDSON Administration Protocol Clindamycin Phosphate 900 mg/ 106 mls @ 106 mls/hr 05/19/18 22:00 05/20/18 07 :01 Sodium Chloride IVPB 106 mls/hr Q8 EDSON Administration Protocol Sodium Chloride 1,000 mls @ 100 mls/hr 05/19/18 17:45 05/20/18 04:57 Sodium Chloride 0.9% IV 100 mls/hr .Q10H EDSON Administration Meropenem 50 mls @ 100 mls/hr 05/20/18 10:00 05/20/18 09:23 Merrem Iv 1 Gm Premix IVPB 100 mls/hr Q12 EDSON Administration Protocol Fentanyl Citrate 1,000 mcg in 100 mls @ 2 mls/hr 05/20/18 09:49 05/20/18 10: 57 Fentanyl Citrate/Sodium Chloride 1 Mg/100 Ml IV 20 mcg/hr .Q24H PRN 2 mls/hr TITRATE PER MD ORDER Administration Protocol 20 MCG/HR Acyclovir 600 mg/ Sodium 100 mls @ 100 mls/hr 05/20/18 10:15 Chloride IV Q12 EDSON Protocol Sodium Chloride 1,000 mls @ 999 mls/hr 05/20/18 10:49 Sodium Chloride 0.9% IV 05/20/18 11:49 .Q1H1M STA Methylprednisolone 60 mg 05/20/18 02:52 05/20/18 07:03 Solu-Medrol IVP 60 mg Q8 EDSON Administration Primaquine Phosphate 26.3 mg 05/20/18 16:18 Primaquine PO 05/20/18 16:19 ONCE ONE Protocol Primaquine Phosphate 26.3 mg 05/20/18 10:00 05/20/18 09:22 Primaquine PO 26.3 mg DAILY EDSON Administration Protocol - Patient Studies Lab Studies: Lab Studies 07/05/20/18 05/20/18 Range/Units 09:26 08:17 08:10 WBC (4.5-11.0) 10^3/ul RBC (3.5-6.1) 10^6/uL Hgb (12.0-16.0) g/dL Hct (36.0-48.0) % MCV (80.0-105.0) fl MCH (25.0-35.0) pg MCHC (31.0-37.0) g/dl RDW (11.5-14.5) % Plt Count (120.0-450.0) 10^3/uL MPV (7.0-11.0) fl PT (9.4-12.5) SECONDS INR (0.93-1.08) pCO2 (35-45) mm/Hg pO2 (80-100) mm/Hg HCO3 (21-28) mmol/L ABG pH (7.35-7.45) ABG Total CO2 (22-28) mmol.L ABG O2 Saturation (95-98) % ABG O2 Content (15-23) ML/dl ABG Base Excess (-2.0-3.0) mmol/L ABG Hemoglobin (11.7-17.4) g/dL ABG Carboxyhemoglobin (0.5-1.5) % POC ABG HHb (Measured) (0-5) % ABG Methemoglobin (0.0-3.0) % ABG O2 Capacity (16-24) mL/dl ABG Potassium (3.6-5.2) mmol/L Hgb O2 Saturation (95.0-98.0) % Glucose (65-105) mg/dl Lactate (0.7-2.1) mmol/L FiO2 % Pressure Support Inspiratory BiPAP Sodium (132-148) mmol/L Potassium (3.6-5.0) mmol/L Chloride (98-107) mmol/L Carbon Dioxide (21-33) mmol/L Anion Gap (10-20) BUN (7-21) mg/dL Creatinine (0.7-1.2) mg/dl Est GFR ( Amer) Est GFR (Non-Af Amer) POC Glucose (mg/dL) (65-110) mg/dL Random Glucose (70-110) mg/dL Calcium (8.4-10.5) mg/dL Phosphorus (2.5-4.5) mg/dL Magnesium (1.7-2.2) mg/dL Total Bilirubin (0.2-1.3) mg/dL AST (14-36) U/L ALT (7-56) U/L Alkaline Phosphatase (38-126) U/L Ammonia 67 H (9-33) umol/L Total Creatine Kinase (35-230) U/L Total Protein (5.8-8.3) g/dL Albumin (3.0-4.8) g/dL Globulin gm/dL Albumin/Globulin Ratio (1.1-1.8) Arterial Blood Potassium (3.6-5.2) mmol/L Urine Color (YELLOW) Urine Appearance (CLEAR) Urine pH (4.7-8.0) Ur Specific [place] (1.005-1.035) Urine Protein (<30 mg/dL) mg/dL Urine Glucose (UA) (NEGATIVE) mg/dL Urine Ketones (NEGATIVE) mg/dL Urine Blood (NEGATIVE) Urine Nitrate (NEGATIVE) Urine Bilirubin (NEGATIVE) Urine Urobilinogen (<1 E.U./dL) E.U./dL Ur Leukocyte Esterase (NEGATIVE) Juliano/uL Urine RBC (0-2) /hpf Urine WBC (0-6) /hpf Ur Epithelial Cells (0-5) /hpf Urine Bacteria (NEG) Hyaline Casts /hpf Ur Random Sodium 9 meq/L Ur Random Urea Nitrogn 363 mg/dL Urine HCG, Qual (NEGATIVE) Urine Opiates Screen (NEGATIVE) Urine Methadone Screen (NEGATIVE) Ur Barbiturates Screen (NEGATIVE) Ur Phencyclidine Scrn (NEGATIVE) Ur Amphetamines Screen (NEGATIVE) U Benzodiazepines Scrn (NEGATIVE) U Oth Cocaine Metabols (NEGATIVE) U Cannabinoids Screen (NEGATIVE) 05/20/18 05/20/18 05/20/18 Range/Units 08:10 07:55 05:55 WBC (4.5-11.0) 10^3/ul RBC (3.5-6.1) 10^6/uL Hgb (12.0-16.0) g/dL Hct (36.0-48.0) % MCV (80.0-105.0) fl MCH (25.0-35.0) pg MCHC (31.0-37.0) g/dl RDW (11.5-14.5) % Plt Count (120.0-450.0) 10^3/uL MPV (7.0-11.0) fl PT (9.4-12.5) SECONDS INR (0.93-1.08) pCO2 57 H (35-45) mm/Hg pO2 74.0 L (80-100) mm/Hg HCO3 17.7 L (21-28) mmol/L ABG pH 7.10 L* (7.35-7.45) ABG Total CO2 19.4 L (22-28) mmol.L ABG O2 Saturation 94.5 L (95-98) % ABG O2 Content 12.0 L (15-23) ML/dl ABG Base Excess -11.6 L (-2.0-3.0) mmol/L ABG Hemoglobin 9.2 L (11.7-17.4) g/dL ABG Carboxyhemoglobin 1.7 H (0.5-1.5) % POC ABG HHb (Measured) 5.4 H (0-5) % ABG Methemoglobin 0.6 (0.0-3.0) % ABG O2 Capacity 12.7 L (16-24) mL/dl ABG Potassium (3.6-5.2) mmol/L Hgb O2 Saturation 92.3 L (95.0-98.0) % Glucose (65-105) mg/dl Lactate (0.7-2.1) mmol/L FiO2 70.0 % Pressure Support Inspiratory BiPAP Sodium (132-148) mmol/L Potassium (3.6-5.0) mmol/L Chloride (98-107) mmol/L Carbon Dioxide (21-33) mmol/L Anion Gap (10-20) BUN (7-21) mg/dL Creatinine (0.7-1.2) mg/dl Est GFR ( Amer) Est GFR (Non-Af Amer) POC Glucose (mg/dL) 130 H (65-110) mg/dL Random Glucose (70-110) mg/dL Calcium (8.4-10.5) mg/dL Phosphorus (2.5-4.5) mg/dL Magnesium (1.7-2.2) mg/dL Total Bilirubin (0.2-1.3) mg/dL AST (14-36) U/L ALT (7-56) U/L Alkaline Phosphatase (38-126) U/L Ammonia (9-33) umol/L Total Creatine Kinase 156 (35-230) U/L Total Protein (5.8-8.3) g/dL Albumin (3.0-4.8) g/dL Globulin gm/dL Albumin/Globulin Ratio (1.1-1.8) Arterial Blood Potassium (3.6-5.2) mmol/L Urine Color (YELLOW) Urine Appearance (CLEAR) Urine pH (4.7-8.0) Ur Specific [place] (1.005-1.035) Urine Protein (<30 mg/dL) mg/dL Urine Glucose (UA) (NEGATIVE) mg/dL Urine Ketones (NEGATIVE) mg/dL Urine Blood (NEGATIVE) Urine Nitrate (NEGATIVE) Urine Bilirubin (NEGATIVE) Urine Urobilinogen (<1 E.U./dL) E.U./dL Ur Leukocyte Esterase (NEGATIVE) Juliano/uL Urine RBC (0-2) /hpf Urine WBC (0-6) /hpf Ur Epithelial Cells (0-5) /hpf Urine Bacteria (NEG) Hyaline Casts /hpf Ur Random Sodium meq/L Ur Random Urea Nitrogn mg/dL Urine HCG, Qual (NEGATIVE) Urine Opiates Screen (NEGATIVE) Urine Methadone Screen (NEGATIVE) Ur Barbiturates Screen (NEGATIVE) Ur Phencyclidine Scrn (NEGATIVE) Ur Amphetamines Screen (NEGATIVE) U Benzodiazepines Scrn (NEGATIVE) U Oth Cocaine Metabols (NEGATIVE) U Cannabinoids Screen (NEGATIVE) 05/20/18 05/20/18 05/20/18 Range/Units 05:00 04:45 04:45 WBC (4.5-11.0) 10^3/ul RBC (3.5-6.1) 10^6/uL Hgb (12.0-16.0) g/dL Hct (36.0-48.0) % MCV (80.0-105.0) fl MCH (25.0-35.0) pg MCHC (31.0-37.0) g/dl RDW (11.5-14.5) % Plt Count (120.0-450.0) 10^3/uL MPV (7.0-11.0) fl PT 16.3 H (9.4-12.5) SECONDS INR 1.41 H (0.93-1.08) pCO2 62 H (35-45) mm/Hg pO2 128.0 H (80-100) mm/Hg HCO3 19.7 L (21-28) mmol/L ABG pH 7.11 L* (7.35-7.45) ABG Total CO2 21.6 L (22-28) mmol.L ABG O2 Saturation 99.2 H (95-98) % ABG O2 Content (15-23) ML/dl ABG Base Excess -10.5 L (-2.0-3.0) mmol/L ABG Hemoglobin (11.7-17.4) g/dL ABG Carboxyhemoglobin (0.5-1.5) % POC ABG HHb (Measured) (0-5) % ABG Methemoglobin (0.0-3.0) % ABG O2 Capacity (16-24) mL/dl ABG Potassium 4.9 (3.6-5.2) mmol/L Hgb O2 Saturation (95.0-98.0) % Glucose 143 H (65-105) mg/dl Lactate 0.8 (0.7-2.1) mmol/L FiO2 80.0 % Pressure Support 14 Inspiratory BiPAP 20 Sodium 136.0 139 (132-148) mmol/L Potassium 5.0 (3.6-5.0) mmol/L Chloride 110.0 H 110 H (98-107) mmol/L Carbon Dioxide 17 L (21-33) mmol/L Anion Gap 17 (10-20) BUN 50 H (7-21) mg/dL Creatinine 1.6 H (0.7-1.2) mg/dl Est GFR ( Amer) 44 Est GFR (Non-Af Amer) 36 POC Glucose (mg/dL) (65-110) mg/dL Random Glucose 138 H (70-110) mg/dL Calcium 8.1 L (8.4-10.5) mg/dL Phosphorus 6.4 H (2.5-4.5) mg/dL Magnesium 2.1 (1.7-2.2) mg/dL Total Bilirubin 0.1 L (0.2-1.3) mg/dL AST 6619 H (14-36) U/L ALT 3328 H (7-56) U/L Alkaline Phosphatase 120 (38-126) U/L Ammonia (9-33) umol/L Total Creatine Kinase (35-230) U/L Total Protein 6.3 (5.8-8.3) g/dL Albumin 2.5 L (3.0-4.8) g/dL Globulin 3.8 gm/dL Albumin/Globulin Ratio 0.6 L (1.1-1.8) Arterial Blood Potassium 4.9 (3.6-5.2) mmol/L Urine Color (YELLOW) Urine Appearance (CLEAR) Urine pH (4.7-8.0) Ur Specific [place] (1.005-1.035) Urine Protein (<30 mg/dL) mg/dL Urine Glucose (UA) (NEGATIVE) mg/dL Urine Ketones (NEGATIVE) mg/dL Urine Blood (NEGATIVE) Urine Nitrate (NEGATIVE) Urine Bilirubin (NEGATIVE) Urine Urobilinogen (<1 E.U./dL) E.U./dL Ur Leukocyte Esterase (NEGATIVE) Juliano/uL Urine RBC (0-2) /hpf Urine WBC (0-6) /hpf Ur Epithelial Cells (0-5) /hpf Urine Bacteria (NEG) Hyaline Casts /hpf Ur Random Sodium meq/L Ur Random Urea Nitrogn mg/dL Urine HCG, Qual (NEGATIVE) Urine Opiates Screen (NEGATIVE) Urine Methadone Screen (NEGATIVE) Ur Barbiturates Screen (NEGATIVE) Ur Phencyclidine Scrn (NEGATIVE) Ur Amphetamines Screen (NEGATIVE) U Benzodiazepines Scrn (NEGATIVE) U Oth Cocaine Metabols (NEGATIVE) U Cannabinoids Screen (NEGATIVE) 05/20/18 05/20/18 05/20/18 Range/Units 04:45 03:30 01:49 WBC 25.2 H* D (4.5-11.0) 10^3/ul RBC 3.67 (3.5-6.1) 10^6/uL Hgb 9.7 L (12.0-16.0) g/dL Hct 31.5 L (36.0-48.0) % MCV 85.8 (80.0-105.0) fl MCH 26.4 (25.0-35.0) pg MCHC 30.8 L (31.0-37.0) g/dl RDW 16.2 H (11.5-14.5) % Plt Count 173 (120.0-450.0) 10^3/uL MPV 10.1 (7.0-11.0) fl PT (9.4-12.5) SECONDS INR (0.93-1.08) pCO2 61 H (35-45) mm/Hg pO2 78.0 L (80-100) mm/Hg HCO3 18.9 L (21-28) mmol/L ABG pH 7.10 L* (7.35-7.45) ABG Total CO2 20.8 L (22-28) mmol.L ABG O2 Saturation 95.1 (95-98) % ABG O2 Content 12.4 L (15-23) ML/dl ABG Base Excess -10.7 L (-2.0-3.0) mmol/L ABG Hemoglobin 9.5 L (11.7-17.4) g/dL ABG Carboxyhemoglobin 2.4 H (0.5-1.5) % POC ABG HHb (Measured) 4.7 (0-5) % ABG Methemoglobin 1.0 (0.0-3.0) % ABG O2 Capacity 13.0 L (16-24) mL/dl ABG Potassium (3.6-5.2) mmol/L Hgb O2 Saturation 91.9 L (95.0-98.0) % Glucose (65-105) mg/dl Lactate (0.7-2.1) mmol/L FiO2 60.0 % Pressure Support Inspiratory BiPAP Sodium (132-148) mmol/L Potassium (3.6-5.0) mmol/L Chloride (98-107) mmol/L Carbon Dioxide (21-33) mmol/L Anion Gap (10-20) BUN (7-21) mg/dL Creatinine (0.7-1.2) mg/dl Est GFR ( Amer) Est GFR (Non-Af Amer) POC Glucose (mg/dL) (65-110) mg/dL Random Glucose (70-110) mg/dL Calcium (8.4-10.5) mg/dL Phosphorus (2.5-4.5) mg/dL Magnesium (1.7-2.2) mg/dL Total Bilirubin (0.2-1.3) mg/dL AST (14-36) U/L ALT (7-56) U/L Alkaline Phosphatase (38-126) U/L Ammonia (9-33) umol/L Total Creatine Kinase (35-230) U/L Total Protein (5.8-8.3) g/dL Albumin (3.0-4.8) g/dL Globulin gm/dL Albumin/Globulin Ratio (1.1-1.8) Arterial Blood Potassium (3.6-5.2) mmol/L Urine Color (YELLOW) Urine Appearance (CLEAR) Urine pH (4.7-8.0) Ur Specific [place] (1.005-1.035) Urine Protein (<30 mg/dL) mg/dL Urine Glucose (UA) (NEGATIVE) mg/dL Urine Ketones (NEGATIVE) mg/dL Urine Blood (NEGATIVE) Urine Nitrate (NEGATIVE) Urine Bilirubin (NEGATIVE) Urine Urobilinogen (<1 E.U./dL) E.U./dL Ur Leukocyte Esterase (NEGATIVE) Juliano/uL Urine RBC (0-2) /hpf Urine WBC (0-6) /hpf Ur Epithelial Cells (0-5) /hpf Urine Bacteria (NEG) Hyaline Casts /hpf Ur Random Sodium meq/L Ur Random Urea Nitrogn mg/dL Urine HCG, Qual Negative (NEGATIVE) Urine Opiates Screen (NEGATIVE) Urine Methadone Screen (NEGATIVE) Ur Barbiturates Screen (NEGATIVE) Ur Phencyclidine Scrn (NEGATIVE) Ur Amphetamines Screen (NEGATIVE) U Benzodiazepines Scrn (NEGATIVE) U Oth Cocaine Metabols (NEGATIVE) U Cannabinoids Screen (NEGATIVE) 05/20/18 05/19/18 05/19/18 Range/Units 00:45 17:25 17:20 WBC (4.5-11.0) 10^3/ul RBC (3.5-6.1) 10^6/uL Hgb (12.0-16.0) g/dL Hct (36.0-48.0) % MCV (80.0-105.0) fl MCH (25.0-35.0) pg MCHC (31.0-37.0) g/dl RDW (11.5-14.5) % Plt Count (120.0-450.0) 10^3/uL MPV (7.0-11.0) fl PT (9.4-12.5) SECONDS INR (0.93-1.08) pCO2 61 H (35-45) mm/Hg pO2 68.0 L (80-100) mm/Hg HCO3 18.9 L (21-28) mmol/L ABG pH 7.10 L* (7.35-7.45) ABG Total CO2 20.8 L (22-28) mmol.L ABG O2 Saturation 92.5 L (95-98) % ABG O2 Content 12.3 L (15-23) ML/dl ABG Base Excess -10.7 L (-2.0-3.0) mmol/L ABG Hemoglobin 9.7 L (11.7-17.4) g/dL ABG Carboxyhemoglobin 2.0 H (0.5-1.5) % POC ABG HHb (Measured) 7.3 H (0-5) % ABG Methemoglobin 1.0 (0.0-3.0) % ABG O2 Capacity 13.3 L (16-24) mL/dl ABG Potassium (3.6-5.2) mmol/L Hgb O2 Saturation 89.7 L (95.0-98.0) % Glucose (65-105) mg/dl Lactate (0.7-2.1) mmol/L FiO2 50.0 % Pressure Support Inspiratory BiPAP Sodium (132-148) mmol/L Potassium (3.6-5.0) mmol/L Chloride (98-107) mmol/L Carbon Dioxide (21-33) mmol/L Anion Gap (10-20) BUN (7-21) mg/dL Creatinine (0.7-1.2) mg/dl Est GFR ( Amer) Est GFR (Non-Af Amer) POC Glucose (mg/dL) (65-110) mg/dL Random Glucose (70-110) mg/dL Calcium (8.4-10.5) mg/dL Phosphorus (2.5-4.5) mg/dL Magnesium (1.7-2.2) mg/dL Total Bilirubin (0.2-1.3) mg/dL AST (14-36) U/L ALT (7-56) U/L Alkaline Phosphatase (38-126) U/L Ammonia (9-33) umol/L Total Creatine Kinase (35-230) U/L Total Protein (5.8-8.3) g/dL Albumin (3.0-4.8) g/dL Globulin gm/dL Albumin/Globulin Ratio (1.1-1.8) Arterial Blood Potassium (3.6-5.2) mmol/L Urine Color Yellow (YELLOW) Urine Appearance Clear (CLEAR) Urine pH 6.0 (4.7-8.0) Ur Specific [place] >= 1.030 (1.005-1.035) Urine Protein 100 H (<30 mg/dL) mg/dL Urine Glucose (UA) Negative (NEGATIVE) mg/dL Urine Ketones Negative (NEGATIVE) mg/dL Urine Blood Negative (NEGATIVE) Urine Nitrate Negative (NEGATIVE) Urine Bilirubin Negative (NEGATIVE) Urine Urobilinogen 0.2 (<1 E.U./dL) E.U./dL Ur Leukocyte Esterase Negative (NEGATIVE) Juliano/uL Urine RBC Negative (0-2) /hpf Urine WBC 2 - 5 (0-6) /hpf Ur Epithelial Cells 1 - 3 (0-5) /hpf Urine Bacteria Small (NEG) Hyaline Casts 0 - 2 /hpf Ur Random Sodium meq/L Ur Random Urea Nitrogn mg/dL Urine HCG, Qual (NEGATIVE) Urine Opiates Screen Negative (NEGATIVE) Urine Methadone Screen No result (NEGATIVE) Ur Barbiturates Screen Negative (NEGATIVE) Ur Phencyclidine Scrn Negative (NEGATIVE) Ur Amphetamines Screen Negative (NEGATIVE) U Benzodiazepines Scrn Negative (NEGATIVE) U Oth Cocaine Metabols Negative (NEGATIVE) U Cannabinoids Screen No result (NEGATIVE) Laboratory Results - last 24 hr 05/19/18 05/19/18 05/20/18 17:20 17:25 00:45 WBC RBC Hgb Hct MCV MCH MCHC RDW Plt Count MPV PT INR pCO2 61 H pO2 68.0 L HCO3 18.9 L ABG pH 7.10 L* ABG Total CO2 20.8 L ABG O2 Saturation 92.5 L ABG O2 Content 12.3 L ABG Base Excess -10.7 L ABG Hemoglobin 9.7 L ABG Carboxyhemoglobin 2.0 H POC ABG HHb (Measured) 7.3 H ABG Methemoglobin 1.0 ABG O2 Capacity 13.3 L ABG Potassium Hgb O2 Saturation 89.7 L Glucose Lactate FiO2 50.0 Pressure Support Inspiratory BiPAP Sodium Potassium Chloride Carbon Dioxide Anion Gap BUN Creatinine Est GFR ( Amer) Est GFR (Non-Af Amer) POC Glucose (mg/dL) Random Glucose Calcium Phosphorus Magnesium Total Bilirubin AST ALT Alkaline Phosphatase Ammonia Total Creatine Kinase Total Protein Albumin Globulin Albumin/Globulin Ratio Arterial Blood Potassium Urine Color Yellow Urine Appearance Clear Urine pH 6.0 Ur Specific [place] >= 1.030 Urine Protein 100 H Urine Glucose (UA) Negative Urine Ketones Negative Urine Blood Negative Urine Nitrate Negative Urine Bilirubin Negative Urine Urobilinogen 0.2 Ur Leukocyte Esterase Negative Urine RBC Negative Urine WBC 2 - 5 Ur Epithelial Cells 1 - 3 Urine Bacteria Small Hyaline Casts 0 - 2 Ur Random Sodium Ur Random Urea Nitrogn Urine HCG, Qual Urine Opiates Screen Negative Urine Methadone Screen No result Ur Barbiturates Screen Negative Ur Phencyclidine Scrn Negative Ur Amphetamines Screen Negative U Benzodiazepines Scrn Negative U Oth Cocaine Metabols Negative U Cannabinoids Screen No result 05/20/18 05/20/18 05/20/18 01:49 03:30 04:45 WBC 25.2 H* D RBC 3.67 Hgb 9.7 L Hct 31.5 L MCV 85.8 MCH 26.4 MCHC 30.8 L RDW 16.2 H Plt Count 173 MPV 10.1 PT INR pCO2 61 H pO2 78.0 L HCO3 18.9 L ABG pH 7.10 L* ABG Total CO2 20.8 L ABG O2 Saturation 95.1 ABG O2 Content 12.4 L ABG Base Excess -10.7 L ABG Hemoglobin 9.5 L ABG Carboxyhemoglobin 2.4 H POC ABG HHb (Measured) 4.7 ABG Methemoglobin 1.0 ABG O2 Capacity 13.0 L ABG Potassium Hgb O2 Saturation 91.9 L Glucose Lactate FiO2 60.0 Pressure Support Inspiratory BiPAP Sodium Potassium Chloride Carbon Dioxide Anion Gap BUN Creatinine Est GFR ( Amer) Est GFR (Non-Af Amer) POC Glucose (mg/dL) Random Glucose Calcium Phosphorus Magnesium Total Bilirubin AST ALT Alkaline Phosphatase Ammonia Total Creatine Kinase Total Protein Albumin Globulin Albumin/Globulin Ratio Arterial Blood Potassium Urine Color Urine Appearance Urine pH Ur Specific [place] Urine Protein Urine Glucose (UA) Urine Ketones Urine Blood Urine Nitrate Urine Bilirubin Urine Urobilinogen Ur Leukocyte Esterase Urine RBC Urine WBC Ur Epithelial Cells Urine Bacteria Hyaline Casts Ur Random Sodium Ur Random Urea Nitrogn Urine HCG, Qual Negative Urine Opiates Screen Urine Methadone Screen Ur Barbiturates Screen Ur Phencyclidine Scrn Ur Amphetamines Screen U Benzodiazepines Scrn U Oth Cocaine Metabols U Cannabinoids Screen 05/20/18 05/20/18 05/20/18 04:45 04:45 05:00 WBC RBC Hgb Hct MCV MCH MCHC RDW Plt Count MPV PT 16.3 H INR 1.41 H pCO2 62 H pO2 128.0 H HCO3 19.7 L ABG pH 7.11 L* ABG Total CO2 21.6 L ABG O2 Saturation 99.2 H ABG O2 Content ABG Base Excess -10.5 L ABG Hemoglobin ABG Carboxyhemoglobin POC ABG HHb (Measured) ABG Methemoglobin ABG O2 Capacity ABG Potassium 4.9 Hgb O2 Saturation Glucose 143 H Lactate 0.8 FiO2 80.0 Pressure Support 14 Inspiratory BiPAP 20 Sodium 139 136.0 Potassium 5.0 Chloride 110 H 110.0 H Carbon Dioxide 17 L Anion Gap 17 BUN 50 H Creatinine 1.6 H Est GFR ( Amer) 44 Est GFR (Non-Af Amer) 36 POC Glucose (mg/dL) Random Glucose 138 H Calcium 8.1 L Phosphorus 6.4 H Magnesium 2.1 Total Bilirubin 0.1 L AST 6619 H ALT 3328 H Alkaline Phosphatase 120 Ammonia Total Creatine Kinase Total Protein 6.3 Albumin 2.5 L Globulin 3.8 Albumin/Globulin Ratio 0.6 L Arterial Blood Potassium 4.9 Urine Color Urine Appearance Urine pH Ur Specific [place] Urine Protein Urine Glucose (UA) Urine Ketones Urine Blood Urine Nitrate Urine Bilirubin Urine Urobilinogen Ur Leukocyte Esterase Urine RBC Urine WBC Ur Epithelial Cells Urine Bacteria Hyaline Casts Ur Random Sodium Ur Random Urea Nitrogn Urine HCG, Qual Urine Opiates Screen Urine Methadone Screen Ur Barbiturates Screen Ur Phencyclidine Scrn Ur Amphetamines Screen U Benzodiazepines Scrn U Oth Cocaine Metabols U Cannabinoids Screen 05/20/18 05/20/18 05/20/18 05:55 07:55 08:10 WBC RBC Hgb Hct MCV MCH MCHC RDW Plt Count MPV PT INR pCO2 57 H pO2 74.0 L HCO3 17.7 L ABG pH 7.10 L* ABG Total CO2 19.4 L ABG O2 Saturation 94.5 L ABG O2 Content 12.0 L ABG Base Excess -11.6 L ABG Hemoglobin 9.2 L ABG Carboxyhemoglobin 1.7 H POC ABG HHb (Measured) 5.4 H ABG Methemoglobin 0.6 ABG O2 Capacity 12.7 L ABG Potassium Hgb O2 Saturation 92.3 L Glucose Lactate FiO2 70.0 Pressure Support Inspiratory BiPAP Sodium Potassium Chloride Carbon Dioxide Anion Gap BUN Creatinine Est GFR ( Amer) Est GFR (Non-Af Amer) POC Glucose (mg/dL) 130 H Random Glucose Calcium Phosphorus Magnesium Total Bilirubin AST ALT Alkaline Phosphatase Ammonia Total Creatine Kinase 156 Total Protein Albumin Globulin Albumin/Globulin Ratio Arterial Blood Potassium Urine Color Urine Appearance Urine pH Ur Specific [place] Urine Protein Urine Glucose (UA) Urine Ketones Urine Blood Urine Nitrate Urine Bilirubin Urine Urobilinogen Ur Leukocyte Esterase Urine RBC Urine WBC Ur Epithelial Cells Urine Bacteria Hyaline Casts Ur Random Sodium Ur Random Urea Nitrogn Urine HCG, Qual Urine Opiates Screen Urine Methadone Screen Ur Barbiturates Screen Ur Phencyclidine Scrn Ur Amphetamines Screen U Benzodiazepines Scrn U Oth Cocaine Metabols U Cannabinoids Screen 05/20/18 05/20/18 05/20/18 08:10 08:17 09:26 WBC RBC Hgb Hct MCV MCH MCHC RDW Plt Count MPV PT INR pCO2 pO2 HCO3 ABG pH ABG Total CO2 ABG O2 Saturation ABG O2 Content ABG Base Excess ABG Hemoglobin ABG Carboxyhemoglobin POC ABG HHb (Measured) ABG Methemoglobin ABG O2 Capacity ABG Potassium Hgb O2 Saturation Glucose Lactate FiO2 Pressure Support Inspiratory BiPAP Sodium Potassium Chloride Carbon Dioxide Anion Gap BUN Creatinine Est GFR ( Amer) Est GFR (Non-Af Amer) POC Glucose (mg/dL) Random Glucose Calcium Phosphorus Magnesium Total Bilirubin AST ALT Alkaline Phosphatase Ammonia 67 H Total Creatine Kinase Total Protein Albumin Globulin Albumin/Globulin Ratio Arterial Blood Potassium Urine Color Urine Appearance Urine pH Ur Specific [place] Urine Protein Urine Glucose (UA) Urine Ketones Urine Blood Urine Nitrate Urine Bilirubin Urine Urobilinogen Ur Leukocyte Esterase Urine RBC Urine WBC Ur Epithelial Cells Urine Bacteria Hyaline Casts Ur Random Sodium 9 Ur Random Urea Nitrogn 363 Urine HCG, Qual Urine Opiates Screen Urine Methadone Screen Ur Barbiturates Screen Ur Phencyclidine Scrn Ur Amphetamines Screen U Benzodiazepines Scrn U Oth Cocaine Metabols U Cannabinoids Screen Review of Systems - Review of Systems Systems not reviewed;Unavailable: Intubated Critical Care Progress Note - Ventilator Checklist Head of Bed 30 Degrees: Yes Daily Sedation Vacation: Yes Daily Assessment of Readiness to Wean: Yes Daily Spontaneous Breathing Trial: Yes PUD Prophalyxis: Yes DVT Prophylaxis: Yes Oral Care with Chlorhexidine Gluconate {CHG}: Yes - Vent Settings MODE:: PRVC TIDAL VOLUME:: 450 RESP RATE:: 20 FIO2:: 70 PEEP:: 10 - Extremities/Vascular Does the Patient have a Central Venous Catheter?: No Does the Patient need a Central Venous Catheter?: No Does the Patient have a Fuentes Catheter?: Yes Does the Patient need a Fuentes Catheter?: Yes (AMS, lethargy; s/p intubation ) - Prophylaxis GI Prophylaxis GI: Pepsid - Prophylaxis DVT Prophylaxis DVT: Heparin SQ Assessment/Plan - Assessment and Plan (Free Text) Assessment: Patient is a 37 y/o F with PMHx of HIV (medication non-compliance), PCP pneumonia, neck abscess, Hepatitis C, Asthma, COPD, and Bronchitis who presented to ED c/o shortness of breath, fever, and non-productive cough. Patient had a prior admission to the hospital for PCP pneumonia, however she claims that it has not improved. Patient presents to the ED with transaminitis and BERNICE. Patient received workup for sepsis. In the ED, patient was in hypercapnic hypoxic respiratory failure. Patient placed on BiPAP during admission. ICU was consulted for management. Patient's ABG's were not improving overnight during hospital stay and she also became more lethargic. Patient was intubated. Patient also had episodes of hypotension, however, she was responding to fluid resuscitation. Patient is currently in the ICU for management of severe sepsis, hypercapnic hypoxic respiratory failure, hepatic injury, and BERNICE. Plan: Neuro: - Lethargic in the morning; intubated; currently on fentanyl gtt - Maintain normothermia Pulm: - Intubated: vent settings: 450/20/10/70%. Maintain head of bed over 30 degrees , PUD/DVT ppx, daily weaning trial and SBT, suction, and oral care. - f/u repeat abg - Daily ABGs - Daily CXR - CXR (05/20): new infiltrate at right lung base. ET/NG tube in satisfactory position. - Pulmonology consulted (Dr. Barajas), f/u recs - c/w steroids - Maintain SaO2 > 92% - V/Q scan: low probability for PE Cardio: - Hypotensive episodes this morning, adequate resuscitation - Maintain MAP > 65 - Cardiology consulted (Dr. Veliz), f/u recs GI: - AST/ALT uptrending ([id number]/[id number]); worsening liver injury - Contacted Hepatology Fellow (Dr. Alonso) at [facility]: Liver injury likely due to ischemia. Maintain SBP > 90. Patient is not a candidate for transplant. No utility in transplant. - acetaminophen/salicylate level negative; d/c NAC - GI ppx - GI consulted (Taryn), f/u recs - Utox negative - Ammonia level 67 Renal: - BUN/Cr 50/1.6 (baseline Cr 0.7); downtrend - f/u BMP - Nephrology consulted (Dr. Paez), f/u recs Heme: - Daily cbc, cmp, mag, phos - DVT ppx - INR 1.4 ID: - Leukocytosis (25.2) likely due to steroids or severe sepsis - Severe sepsis: Hypotensive episodes, responded to fluid resuscitation (2L NS) - f/u pancx results, procal, c/w fluids - Primaquine/Clindamycin for PCP - c/w antibiotic coverage, as per ID recs - ID consulted (Dr. Chou), f/u recs - d/c isolation: discussed with ID nurse that patient does not need isolation for PCP Endo: - Maintain euglycemia Dispo: Patient is currently being managed in the ICU. Case was discussed and reviewed with Attending Physician Dr. Haddad. <Joseph Haddad - Last Filed: 05/20/18 13:57> CCU Objective - Vital Signs / Intake & Output Vital Signs (Last 4 hours): Vital Signs Pulse BP Pulse Ox 05/20/18 12:10 100 H 93 L 05/20/18 12:00 97 H 92/58 L 95 05/20/18 11:50 99 H 95 05/20/18 11:40 103 H 90 L 05/20/18 11:30 99 H 92 L 05/20/18 11:20 100 H 94 L 07/27/18 11:10 99 H 95 05/20/18 11:00 94 H 92/56 L 96 05/20/18 10:50 96 H 95 05/20/18 10:40 98 H 95 05/20/18 10:30 99 H 109/62 93 L 05/20/18 10:20 99 H 95 05/20/18 10:15 99 H 91/59 L 94 L 05/20/18 10:10 98 H 94 L 05/20/18 10:00 98 H 93/59 L 93 L Intake and Output (Last 8hrs): Intake & Output 05/19/18 05/20/18 05/20/18 22:59 06:59 14:59 Intake Total 2312 Output Total 600 Balance 1712 Weight 127 lb Intake: IV 2312 Left Hand 312 Right Antecubital 2000 Output: Urine 600 Urethral (Fuentes) 600 Other: Voiding Method Indwelling Catheter - Medications Active Medications: Active Medications Generic Name Dose Route Start Last Admin Trade Name Freq PRN Reason Stop Dose Admin Famotidine 20 mg 05/21/18 10:00 Pepcid PO DAILY EDSON Heparin Sodium (Porcine) 5,000 units 05/19/18 21:30 05/20/18 13:42 Heparin SC 5,000 units Q8H EDSON Administration Protocol Clindamycin Phosphate 900 mg/ 106 mls @ 106 mls/hr 05/19/18 22:00 05/20/18 13 :49 Sodium Chloride IVPB 106 mls/hr Q8 EDSON Administration Protocol Sodium Chloride 1,000 mls @ 100 mls/hr 05/19/18 17:45 05/20/18 13:47 Sodium Chloride 0.9% IV 100 mls/hr .Q10H EDSON Administration Meropenem 50 mls @ 100 mls/hr 05/20/18 10:00 05/20/18 09:23 Merrem Iv 1 Gm Premix IVPB 100 mls/hr Q12 EDSON Administration Protocol Fentanyl Citrate 1,000 mcg in 100 mls @ 2 mls/hr 05/20/18 09:49 05/20/18 10: 57 Fentanyl Citrate/Sodium Chloride 1 Mg/100 Ml IV 20 mcg/hr .Q24H PRN 2 mls/hr TITRATE PER MD ORDER Administration Protocol 20 MCG/HR Acyclovir 600 mg/ Sodium 100 mls @ 100 mls/hr 05/20/18 10:15 05/20/18 11:39 Chloride IV 100 mls/hr Q12 EDSON Administration Protocol Sodium Bicarbonate 50 meq/ 1,050 mls @ 75 mls/hr 05/20/18 13:30 Sodium Chloride IV .Q14H EDSON Methylprednisolone 60 mg 05/20/18 02:52 05/20/18 13:45 Solu-Medrol IVP 60 mg Q8 EDSON Administration Primaquine Phosphate 26.3 mg 05/20/18 16:18 Primaquine PO 05/20/18 16:19 ONCE ONE Protocol Primaquine Phosphate 26.3 mg 05/20/18 10:00 05/20/18 09:22 Primaquine PO 26.3 mg DAILY EDSON Administration Protocol - Patient Studies Lab Studies: Microbiology Studies 05/20/18 07:45 Gram Stain - Preliminary Sputum Lab Studies 05/20/18 05/20/18 05/20/18 Range/Units 13:00 09:26 08:17 WBC (4.5-11.0) 10^3/ul RBC (3.5-6.1) 10^6/uL Hgb (12.0-16.0) g/dL Hct (36.0-48.0) % MCV (80.0-105.0) fl MCH (25.0-35.0) pg MCHC (31.0-37.0) g/dl RDW (11.5-14.5) % Plt Count (120.0-450.0) 10^3/uL MPV (7.0-11.0) fl PT (9.4-12.5) SECONDS INR (0.93-1.08) pCO2 47 H (35-45) mm/Hg pO2 74.0 L (80-100) mm/Hg HCO3 16.4 L (21-28) mmol/L ABG pH 7.15 L* (7.35-7.45) ABG Total CO2 17.8 L (22-28) mmol.L ABG O2 Saturation 95.6 (95-98) % ABG O2 Content 11.9 L (15-23) ML/dl ABG Base Excess -11.8 L (-2.0-3.0) mmol/L ABG Hemoglobin 9.0 L (11.7-17.4) g/dL ABG Carboxyhemoglobin 1.9 H (0.5-1.5) % POC ABG HHb (Measured) 4.3 (0-5) % ABG Methemoglobin 0.6 (0.0-3.0) % ABG O2 Capacity 12.4 L (16-24) mL/dl ABG Potassium (3.6-5.2) mmol/L Hgb O2 Saturation 93.2 L (95.0-98.0) % Glucose (65-105) mg/dl Lactate (0.7-2.1) mmol/L FiO2 60.0 % Pressure Support Inspiratory BiPAP Sodium (132-148) mmol/L Potassium (3.6-5.0) mmol/L Chloride (98-107) mmol/L Carbon Dioxide (21-33) mmol/L Anion Gap (10-20) BUN (7-21) mg/dL Creatinine (0.7-1.2) mg/dl Est GFR ( Amer) Est GFR (Non-Af Amer) POC Glucose (mg/dL) (65-110) mg/dL Random Glucose (70-110) mg/dL Calcium (8.4-10.5) mg/dL Phosphorus (2.5-4.5) mg/dL Magnesium (1.7-2.2) mg/dL Total Bilirubin (0.2-1.3) mg/dL AST (14-36) U/L ALT (7-56) U/L Alkaline Phosphatase (38-126) U/L Ammonia (9-33) umol/L Total Creatine Kinase (35-230) U/L Total Protein (5.8-8.3) g/dL Albumin (3.0-4.8) g/dL Globulin gm/dL Albumin/Globulin Ratio (1.1-1.8) Arterial Blood Potassium (3.6-5.2) mmol/L Urine Color (YELLOW) Urine Appearance (CLEAR) Urine pH (4.7-8.0) Ur Specific [place] (1.005-1.035) Urine Protein (<30 mg/dL) mg/dL Urine Glucose (UA) (NEGATIVE) mg/dL Urine Ketones (NEGATIVE) mg/dL Urine Blood (NEGATIVE) Urine Nitrate (NEGATIVE) Urine Bilirubin (NEGATIVE) Urine Urobilinogen (<1 E.U./dL) E.U./dL Ur Leukocyte Esterase (NEGATIVE) Juliano/uL Urine RBC (0-2) /hpf Urine WBC (0-6) /hpf Ur Epithelial Cells (0-5) /hpf Urine Bacteria (NEG) Hyaline Casts /hpf Ur Random Sodium 9 meq/L Ur Random Urea Nitrogn 363 mg/dL Urine HCG, Qual (NEGATIVE) Urine Opiates Screen (NEGATIVE) Urine Methadone Screen (NEGATIVE) Ur Barbiturates Screen (NEGATIVE) Ur Phencyclidine Scrn (NEGATIVE) Ur Amphetamines Screen (NEGATIVE) U Benzodiazepines Scrn (NEGATIVE) U Oth Cocaine Metabols (NEGATIVE) U Cannabinoids Screen (NEGATIVE) Hepatitis A IgM Ab (NEGATIVE) Hep Bs Antigen (NEGATIVE) Hep Bs Antibody (NEGATIVE) Hep B Core IgM Ab (NEGATIVE) 05/20/18 05/20/18 05/20/18 Range/Units 08:10 08:10 08:10 WBC (4.5-11.0) 10^3/ul RBC (3.5-6.1) 10^6/uL Hgb (12.0-16.0) g/dL Hct (36.0-48.0) % MCV (80.0-105.0) fl MCH (25.0-35.0) pg MCHC (31.0-37.0) g/dl RDW (11.5-14.5) % Plt Count (120.0-450.0) 10^3/uL MPV (7.0-11.0) fl PT (9.4-12.5) SECONDS INR (0.93-1.08) pCO2 (35-45) mm/Hg pO2 (80-100) mm/Hg HCO3 (21-28) mmol/L ABG pH (7.35-7.45) ABG Total CO2 (22-28) mmol.L ABG O2 Saturation (95-98) % ABG O2 Content (15-23) ML/dl ABG Base Excess (-2.0-3.0) mmol/L ABG Hemoglobin (11.7-17.4) g/dL ABG Carboxyhemoglobin (0.5-1.5) % POC ABG HHb (Measured) (0-5) % ABG Methemoglobin (0.0-3.0) % ABG O2 Capacity (16-24) mL/dl ABG Potassium (3.6-5.2) mmol/L Hgb O2 Saturation (95.0-98.0) % Glucose (65-105) mg/dl Lactate (0.7-2.1) mmol/L FiO2 % Pressure Support Inspiratory BiPAP Sodium (132-148) mmol/L Potassium (3.6-5.0) mmol/L Chloride (98-107) mmol/L Carbon Dioxide (21-33) mmol/L Anion Gap (10-20) BUN (7-21) mg/dL Creatinine (0.7-1.2) mg/dl Est GFR ( Amer) Est GFR (Non-Af Amer) POC Glucose (mg/dL) (65-110) mg/dL Random Glucose (70-110) mg/dL Calcium (8.4-10.5) mg/dL Phosphorus (2.5-4.5) mg/dL Magnesium (1.7-2.2) mg/dL Total Bilirubin (0.2-1.3) mg/dL AST (14-36) U/L ALT (7-56) U/L Alkaline Phosphatase (38-126) U/L Ammonia 67 H (9-33) umol/L Total Creatine Kinase (35-230) U/L Total Protein (5.8-8.3) g/dL Albumin (3.0-4.8) g/dL Globulin gm/dL Albumin/Globulin Ratio (1.1-1.8) Arterial Blood Potassium (3.6-5.2) mmol/L Urine Color (YELLOW) Urine Appearance (CLEAR) Urine pH (4.7-8.0) Ur Specific [place] (1.005-1.035) Urine Protein (<30 mg/dL) mg/dL Urine Glucose (UA) (NEGATIVE) mg/dL Urine Ketones (NEGATIVE) mg/dL Urine Blood (NEGATIVE) Urine Nitrate (NEGATIVE) Urine Bilirubin (NEGATIVE) Urine Urobilinogen (<1 E.U./dL) E.U./dL Ur Leukocyte Esterase (NEGATIVE) Juliano/uL Urine RBC (0-2) /hpf Urine WBC (0-6) /hpf Ur Epithelial Cells (0-5) /hpf Urine Bacteria (NEG) Hyaline Casts /hpf Ur Random Sodium meq/L Ur Random Urea Nitrogn mg/dL Urine HCG, Qual (NEGATIVE) Urine Opiates Screen (NEGATIVE) Urine Methadone Screen (NEGATIVE) Ur Barbiturates Screen (NEGATIVE) Ur Phencyclidine Scrn (NEGATIVE) Ur Amphetamines Screen (NEGATIVE) U Benzodiazepines Scrn (NEGATIVE) U Oth Cocaine Metabols (NEGATIVE) U Cannabinoids Screen (NEGATIVE) Hepatitis A IgM Ab Negative (NEGATIVE) Hep Bs Antigen Negative (NEGATIVE) Hep Bs Antibody Positive (NEGATIVE) Hep B Core IgM Ab Negative (NEGATIVE) 05/20/18 05/20/18 05/20/18 Range/Units 08:10 07:55 05:55 WBC (4.5-11.0) 10^3/ul RBC (3.5-6.1) 10^6/uL Hgb (12.0-16.0) g/dL Hct (36.0-48.0) % MCV (80.0-105.0) fl MCH (25.0-35.0) pg MCHC (31.0-37.0) g/dl RDW (11.5-14.5) % Plt Count (120.0-450.0) 10^3/uL MPV (7.0-11.0) fl PT (9.4-12.5) SECONDS INR (0.93-1.08) pCO2 57 H (35-45) mm/Hg pO2 74.0 L (80-100) mm/Hg HCO3 17.7 L (21-28) mmol/L ABG pH 7.10 L* (7.35-7.45) ABG Total CO2 19.4 L (22-28) mmol.L ABG O2 Saturation 94.5 L (95-98) % ABG O2 Content 12.0 L (15-23) ML/dl ABG Base Excess -11.6 L (-2.0-3.0) mmol/L ABG Hemoglobin 9.2 L (11.7-17.4) g/dL ABG Carboxyhemoglobin 1.7 H (0.5-1.5) % POC ABG HHb (Measured) 5.4 H (0-5) % ABG Methemoglobin 0.6 (0.0-3.0) % ABG O2 Capacity 12.7 L (16-24) mL/dl ABG Potassium (3.6-5.2) mmol/L Hgb O2 Saturation 92.3 L (95.0-98.0) % Glucose (65-105) mg/dl Lactate (0.7-2.1) mmol/L FiO2 70.0 % Pressure Support Inspiratory BiPAP Sodium (132-148) mmol/L Potassium (3.6-5.0) mmol/L Chloride (98-107) mmol/L Carbon Dioxide (21-33) mmol/L Anion Gap (10-20) BUN (7-21) mg/dL Creatinine (0.7-1.2) mg/dl Est GFR ( Amer) Est GFR (Non-Af Amer) POC Glucose (mg/dL) 130 H (65-110) mg/dL Random Glucose (70-110) mg/dL Calcium (8.4-10.5) mg/dL Phosphorus (2.5-4.5) mg/dL Magnesium (1.7-2.2) mg/dL Total Bilirubin (0.2-1.3) mg/dL AST (14-36) U/L ALT (7-56) U/L Alkaline Phosphatase (38-126) U/L Ammonia (9-33) umol/L Total Creatine Kinase 156 (35-230) U/L Total Protein (5.8-8.3) g/dL Albumin (3.0-4.8) g/dL Globulin gm/dL Albumin/Globulin Ratio (1.1-1.8) Arterial Blood Potassium (3.6-5.2) mmol/L Urine Color (YELLOW) Urine Appearance (CLEAR) Urine pH (4.7-8.0) Ur Specific [place] (1.005-1.035) Urine Protein (<30 mg/dL) mg/dL Urine Glucose (UA) (NEGATIVE) mg/dL Urine Ketones (NEGATIVE) mg/dL Urine Blood (NEGATIVE) Urine Nitrate (NEGATIVE) Urine Bilirubin (NEGATIVE) Urine Urobilinogen (<1 E.U./dL) E.U./dL Ur Leukocyte Esterase (NEGATIVE) Juliano/uL Urine RBC (0-2) /hpf Urine WBC (0-6) /hpf Ur Epithelial Cells (0-5) /hpf Urine Bacteria (NEG) Hyaline Casts /hpf Ur Random Sodium meq/L Ur Random Urea Nitrogn mg/dL Urine HCG, Qual (NEGATIVE) Urine Opiates Screen (NEGATIVE) Urine Methadone Screen (NEGATIVE) Ur Barbiturates Screen (NEGATIVE) Ur Phencyclidine Scrn (NEGATIVE) Ur Amphetamines Screen (NEGATIVE) U Benzodiazepines Scrn (NEGATIVE) U Oth Cocaine Metabols (NEGATIVE) U Cannabinoids Screen (NEGATIVE) Hepatitis A IgM Ab (NEGATIVE) Hep Bs Antigen (NEGATIVE) Hep Bs Antibody (NEGATIVE) Hep B Core IgM Ab (NEGATIVE) 05/20/18 05/20/18 05/20/18 Range/Units 05:00 04:45 04:45 WBC (4.5-11.0) 10^3/ul RBC (3.5-6.1) 10^6/uL Hgb (12.0-16.0) g/dL Hct (36.0-48.0) % MCV (80.0-105.0) fl MCH (25.0-35.0) pg MCHC (31.0-37.0) g/dl RDW (11.5-14.5) % Plt Count (120.0-450.0) 10^3/uL MPV (7.0-11.0) fl PT 16.3 H (9.4-12.5) SECONDS INR 1.41 H (0.93-1.08) pCO2 62 H (35-45) mm/Hg pO2 128.0 H (80-100) mm/Hg HCO3 19.7 L (21-28) mmol/L ABG pH 7.11 L* (7.35-7.45) ABG Total CO2 21.6 L (22-28) mmol.L ABG O2 Saturation 99.2 H (95-98) % ABG O2 Content (15-23) ML/dl ABG Base Excess -10.5 L (-2.0-3.0) mmol/L ABG Hemoglobin (11.7-17.4) g/dL ABG Carboxyhemoglobin (0.5-1.5) % POC ABG HHb (Measured) (0-5) % ABG Methemoglobin (0.0-3.0) % ABG O2 Capacity (16-24) mL/dl ABG Potassium 4.9 (3.6-5.2) mmol/L Hgb O2 Saturation (95.0-98.0) % Glucose 143 H (65-105) mg/dl Lactate 0.8 (0.7-2.1) mmol/L FiO2 80.0 % Pressure Support 14 Inspiratory BiPAP 20 Sodium 136.0 139 (132-148) mmol/L Potassium 5.0 (3.6-5.0) mmol/L Chloride 110.0 H 110 H (98-107) mmol/L Carbon Dioxide 17 L (21-33) mmol/L Anion Gap 17 (10-20) BUN 50 H (7-21) mg/dL Creatinine 1.6 H (0.7-1.2) mg/dl Est GFR ( Amer) 44 Est GFR (Non-Af Amer) 36 POC Glucose (mg/dL) (65-110) mg/dL Random Glucose 138 H (70-110) mg/dL Calcium 8.1 L (8.4-10.5) mg/dL Phosphorus 6.4 H (2.5-4.5) mg/dL Magnesium 2.1 (1.7-2.2) mg/dL Total Bilirubin 0.1 L (0.2-1.3) mg/dL AST 6619 H (14-36) U/L ALT 3328 H (7-56) U/L Alkaline Phosphatase 120 (38-126) U/L Ammonia (9-33) umol/L Total Creatine Kinase (35-230) U/L Total Protein 6.3 (5.8-8.3) g/dL Albumin 2.5 L (3.0-4.8) g/dL Globulin 3.8 gm/dL Albumin/Globulin Ratio 0.6 L (1.1-1.8) Arterial Blood Potassium 4.9 (3.6-5.2) mmol/L Urine Color (YELLOW) Urine Appearance (CLEAR) Urine pH (4.7-8.0) Ur Specific [place] (1.005-1.035) Urine Protein (<30 mg/dL) mg/dL Urine Glucose (UA) (NEGATIVE) mg/dL Urine Ketones (NEGATIVE) mg/dL Urine Blood (NEGATIVE) Urine Nitrate (NEGATIVE) Urine Bilirubin (NEGATIVE) Urine Urobilinogen (<1 E.U./dL) E.U./dL Ur Leukocyte Esterase (NEGATIVE) Juliano/uL Urine RBC (0-2) /hpf Urine WBC (0-6) /hpf Ur Epithelial Cells (0-5) /hpf Urine Bacteria (NEG) Hyaline Casts /hpf Ur Random Sodium meq/L Ur Random Urea Nitrogn mg/dL Urine HCG, Qual (NEGATIVE) Urine Opiates Screen (NEGATIVE) Urine Methadone Screen (NEGATIVE) Ur Barbiturates Screen (NEGATIVE) Ur Phencyclidine Scrn (NEGATIVE) Ur Amphetamines Screen (NEGATIVE) U Benzodiazepines Scrn (NEGATIVE) U Oth Cocaine Metabols (NEGATIVE) U Cannabinoids Screen (NEGATIVE) Hepatitis A IgM Ab (NEGATIVE) Hep Bs Antigen (NEGATIVE) Hep Bs Antibody (NEGATIVE) Hep B Core IgM Ab (NEGATIVE) 05/20/18 05/20/18 05/20/18 Range/Units 04:45 03:30 01:49 WBC 25.2 H* D (4.5-11.0) 10^3/ul RBC 3.67 (3.5-6.1) 10^6/uL Hgb 9.7 L (12.0-16.0) g/dL Hct 31.5 L (36.0-48.0) % MCV 85.8 (80.0-105.0) fl MCH 26.4 (25.0-35.0) pg MCHC 30.8 L (31.0-37.0) g/dl RDW 16.2 H (11.5-14.5) % Plt Count 173 (120.0-450.0) 10^3/uL MPV 10.1 (7.0-11.0) fl PT (9.4-12.5) SECONDS INR (0.93-1.08) pCO2 61 H (35-45) mm/Hg pO2 78.0 L (80-100) mm/Hg HCO3 18.9 L (21-28) mmol/L ABG pH 7.10 L* (7.35-7.45) ABG Total CO2 20.8 L (22-28) mmol.L ABG O2 Saturation 95.1 (95-98) % ABG O2 Content 12.4 L (15-23) ML/dl ABG Base Excess -10.7 L (-2.0-3.0) mmol/L ABG Hemoglobin 9.5 L (11.7-17.4) g/dL ABG Carboxyhemoglobin 2.4 H (0.5-1.5) % POC ABG HHb (Measured) 4.7 (0-5) % ABG Methemoglobin 1.0 (0.0-3.0) % ABG O2 Capacity 13.0 L (16-24) mL/dl ABG Potassium (3.6-5.2) mmol/L Hgb O2 Saturation 91.9 L (95.0-98.0) % Glucose (65-105) mg/dl Lactate (0.7-2.1) mmol/L FiO2 60.0 % Pressure Support Inspiratory BiPAP Sodium (132-148) mmol/L Potassium (3.6-5.0) mmol/L Chloride (98-107) mmol/L Carbon Dioxide (21-33) mmol/L Anion Gap (10-20) BUN (7-21) mg/dL Creatinine (0.7-1.2) mg/dl Est GFR ( Amer) Est GFR (Non-Af Amer) POC Glucose (mg/dL) (65-110) mg/dL Random Glucose (70-110) mg/dL Calcium (8.4-10.5) mg/dL Phosphorus (2.5-4.5) mg/dL Magnesium (1.7-2.2) mg/dL Total Bilirubin (0.2-1.3) mg/dL AST (14-36) U/L ALT (7-56) U/L Alkaline Phosphatase (38-126) U/L Ammonia (9-33) umol/L Total Creatine Kinase (35-230) U/L Total Protein (5.8-8.3) g/dL Albumin (3.0-4.8) g/dL Globulin gm/dL Albumin/Globulin Ratio (1.1-1.8) Arterial Blood Potassium (3.6-5.2) mmol/L Urine Color (YELLOW) Urine Appearance (CLEAR) Urine pH (4.7-8.0) Ur Specific [place] (1.005-1.035) Urine Protein (<30 mg/dL) mg/dL Urine Glucose (UA) (NEGATIVE) mg/dL Urine Ketones (NEGATIVE) mg/dL Urine Blood (NEGATIVE) Urine Nitrate (NEGATIVE) Urine Bilirubin (NEGATIVE) Urine Urobilinogen (<1 E.U./dL) E.U./dL Ur Leukocyte Esterase (NEGATIVE) Juliano/uL Urine RBC (0-2) /hpf Urine WBC (0-6) /hpf Ur Epithelial Cells (0-5) /hpf Urine Bacteria (NEG) Hyaline Casts /hpf Ur Random Sodium meq/L Ur Random Urea Nitrogn mg/dL Urine HCG, Qual Negative (NEGATIVE) Urine Opiates Screen (NEGATIVE) Urine Methadone Screen (NEGATIVE) Ur Barbiturates Screen (NEGATIVE) Ur Phencyclidine Scrn (NEGATIVE) Ur Amphetamines Screen (NEGATIVE) U Benzodiazepines Scrn (NEGATIVE) U Oth Cocaine Metabols (NEGATIVE) U Cannabinoids Screen (NEGATIVE) Hepatitis A IgM Ab (NEGATIVE) Hep Bs Antigen (NEGATIVE) Hep Bs Antibody (NEGATIVE) Hep B Core IgM Ab (NEGATIVE) 05/20/18 05/19/18 05/19/18 Range/Units 00:45 17:25 17:20 WBC (4.5-11.0) 10^3/ul RBC (3.5-6.1) 10^6/uL Hgb (12.0-16.0) g/dL Hct (36.0-48.0) % MCV (80.0-105.0) fl MCH (25.0-35.0) pg MCHC (31.0-37.0) g/dl RDW (11.5-14.5) % Plt Count (120.0-450.0) 10^3/uL MPV (7.0-11.0) fl PT (9.4-12.5) SECONDS INR (0.93-1.08) pCO2 61 H (35-45) mm/Hg pO2 68.0 L (80-100) mm/Hg HCO3 18.9 L (21-28) mmol/L ABG pH 7.10 L* (7.35-7.45) ABG Total CO2 20.8 L (22-28) mmol.L ABG O2 Saturation 92.5 L (95-98) % ABG O2 Content 12.3 L (15-23) ML/dl ABG Base Excess -10.7 L (-2.0-3.0) mmol/L ABG Hemoglobin 9.7 L (11.7-17.4) g/dL ABG Carboxyhemoglobin 2.0 H (0.5-1.5) % POC ABG HHb (Measured) 7.3 H (0-5) % ABG Methemoglobin 1.0 (0.0-3.0) % ABG O2 Capacity 13.3 L (16-24) mL/dl ABG Potassium (3.6-5.2) mmol/L Hgb O2 Saturation 89.7 L (95.0-98.0) % Glucose (65-105) mg/dl Lactate (0.7-2.1) mmol/L FiO2 50.0 % Pressure Support Inspiratory BiPAP Sodium (132-148) mmol/L Potassium (3.6-5.0) mmol/L Chloride (98-107) mmol/L Carbon Dioxide (21-33) mmol/L Anion Gap (10-20) BUN (7-21) mg/dL Creatinine (0.7-1.2) mg/dl Est GFR ( Amer) Est GFR (Non-Af Amer) POC Glucose (mg/dL) (65-110) mg/dL Random Glucose (70-110) mg/dL Calcium (8.4-10.5) mg/dL Phosphorus (2.5-4.5) mg/dL Magnesium (1.7-2.2) mg/dL Total Bilirubin (0.2-1.3) mg/dL AST (14-36) U/L ALT (7-56) U/L Alkaline Phosphatase (38-126) U/L Ammonia (9-33) umol/L Total Creatine Kinase (35-230) U/L Total Protein (5.8-8.3) g/dL Albumin (3.0-4.8) g/dL Globulin gm/dL Albumin/Globulin Ratio (1.1-1.8) Arterial Blood Potassium (3.6-5.2) mmol/L Urine Color Yellow (YELLOW) Urine Appearance Clear (CLEAR) Urine pH 6.0 (4.7-8.0) Ur Specific [place] >= 1.030 (1.005-1.035) Urine Protein 100 H (<30 mg/dL) mg/dL Urine Glucose (UA) Negative (NEGATIVE) mg/dL Urine Ketones Negative (NEGATIVE) mg/dL Urine Blood Negative (NEGATIVE) Urine Nitrate Negative (NEGATIVE) Urine Bilirubin Negative (NEGATIVE) Urine Urobilinogen 0.2 (<1 E.U./dL) E.U./dL Ur Leukocyte Esterase Negative (NEGATIVE) Juliano/uL Urine RBC Negative (0-2) /hpf Urine WBC 2 - 5 (0-6) /hpf Ur Epithelial Cells 1 - 3 (0-5) /hpf Urine Bacteria Small (NEG) Hyaline Casts 0 - 2 /hpf Ur Random Sodium meq/L Ur Random Urea Nitrogn mg/dL Urine HCG, Qual (NEGATIVE) Urine Opiates Screen Negative (NEGATIVE) Urine Methadone Screen No result (NEGATIVE) Ur Barbiturates Screen Negative (NEGATIVE) Ur Phencyclidine Scrn Negative (NEGATIVE) Ur Amphetamines Screen Negative (NEGATIVE) U Benzodiazepines Scrn Negative (NEGATIVE) U Oth Cocaine Metabols Negative (NEGATIVE) U Cannabinoids Screen No result (NEGATIVE) Hepatitis A IgM Ab (NEGATIVE) Hep Bs Antigen (NEGATIVE) Hep Bs Antibody (NEGATIVE) Hep B Core IgM Ab (NEGATIVE) Laboratory Results - last 24 hr 05/19/18 05/19/18 05/20/18 17:20 17:25 00:45 WBC RBC Hgb Hct MCV MCH MCHC RDW Plt Count MPV PT INR pCO2 61 H pO2 68.0 L HCO3 18.9 L ABG pH 7.10 L* ABG Total CO2 20.8 L ABG O2 Saturation 92.5 L ABG O2 Content 12.3 L ABG Base Excess -10.7 L ABG Hemoglobin 9.7 L ABG Carboxyhemoglobin 2.0 H POC ABG HHb (Measured) 7.3 H ABG Methemoglobin 1.0 ABG O2 Capacity 13.3 L ABG Potassium Hgb O2 Saturation 89.7 L Glucose Lactate FiO2 50.0 Pressure Support Inspiratory BiPAP Sodium Potassium Chloride Carbon Dioxide Anion Gap BUN Creatinine Est GFR ( Amer) Est GFR (Non-Af Amer) POC Glucose (mg/dL) Random Glucose Calcium Phosphorus Magnesium Total Bilirubin AST ALT Alkaline Phosphatase Ammonia Total Creatine Kinase Total Protein Albumin Globulin Albumin/Globulin Ratio Arterial Blood Potassium Urine Color Yellow Urine Appearance Clear Urine pH 6.0 Ur Specific [place] >= 1.030 Urine Protein 100 H Urine Glucose (UA) Negative Urine Ketones Negative Urine Blood Negative Urine Nitrate Negative Urine Bilirubin Negative Urine Urobilinogen 0.2 Ur Leukocyte Esterase Negative Urine RBC Negative Urine WBC 2 - 5 Ur Epithelial Cells 1 - 3 Urine Bacteria Small Hyaline Casts 0 - 2 Ur Random Sodium Ur Random Urea Nitrogn Urine HCG, Qual Urine Opiates Screen Negative Urine Methadone Screen No result Ur Barbiturates Screen Negative Ur Phencyclidine Scrn Negative Ur Amphetamines Screen Negative U Benzodiazepines Scrn Negative U Oth Cocaine Metabols Negative U Cannabinoids Screen No result Hepatitis A IgM Ab Hep Bs Antigen Hep Bs Antibody Hep B Core IgM Ab 05/20/18 05/20/18 05/20/18 01:49 03:30 04:45 WBC 25.2 H* D RBC 3.67 Hgb 9.7 L Hct 31.5 L MCV 85.8 MCH 26.4 MCHC 30.8 L RDW 16.2 H Plt Count 173 MPV 10.1 PT INR pCO2 61 H pO2 78.0 L HCO3 18.9 L ABG pH 7.10 L* ABG Total CO2 20.8 L ABG O2 Saturation 95.1 ABG O2 Content 12.4 L ABG Base Excess -10.7 L ABG Hemoglobin 9.5 L ABG Carboxyhemoglobin 2.4 H POC ABG HHb (Measured) 4.7 ABG Methemoglobin 1.0 ABG O2 Capacity 13.0 L ABG Potassium Hgb O2 Saturation 91.9 L Glucose Lactate FiO2 60.0 Pressure Support Inspiratory BiPAP Sodium Potassium Chloride Carbon Dioxide Anion Gap BUN Creatinine Est GFR ( Amer) Est GFR (Non-Af Amer) POC Glucose (mg/dL) Random Glucose Calcium Phosphorus Magnesium Total Bilirubin AST ALT Alkaline Phosphatase Ammonia Total Creatine Kinase Total Protein Albumin Globulin Albumin/Globulin Ratio Arterial Blood Potassium Urine Color Urine Appearance Urine pH Ur Specific [place] Urine Protein Urine Glucose (UA) Urine Ketones Urine Blood Urine Nitrate Urine Bilirubin Urine Urobilinogen Ur Leukocyte Esterase Urine RBC Urine WBC Ur Epithelial Cells Urine Bacteria Hyaline Casts Ur Random Sodium Ur Random Urea Nitrogn Urine HCG, Qual Negative Urine Opiates Screen Urine Methadone Screen Ur Barbiturates Screen Ur Phencyclidine Scrn Ur Amphetamines Screen U Benzodiazepines Scrn U Oth Cocaine Metabols U Cannabinoids Screen Hepatitis A IgM Ab Hep Bs Antigen Hep Bs Antibody Hep B Core IgM Ab 05/20/18 05/20/18 05/20/18 04:45 04:45 05:00 WBC RBC Hgb Hct MCV MCH MCHC RDW Plt Count MPV PT 16.3 H INR 1.41 H pCO2 62 H pO2 128.0 H HCO3 19.7 L ABG pH 7.11 L* ABG Total CO2 21.6 L ABG O2 Saturation 99.2 H ABG O2 Content ABG Base Excess -10.5 L ABG Hemoglobin ABG Carboxyhemoglobin POC ABG HHb (Measured) ABG Methemoglobin ABG O2 Capacity ABG Potassium 4.9 Hgb O2 Saturation Glucose 143 H Lactate 0.8 FiO2 80.0 Pressure Support 14 Inspiratory BiPAP 20 Sodium 139 136.0 Potassium 5.0 Chloride 110 H 110.0 H Carbon Dioxide 17 L Anion Gap 17 BUN 50 H Creatinine 1.6 H Est GFR ( Amer) 44 Est GFR (Non-Af Amer) 36 POC Glucose (mg/dL) Random Glucose 138 H Calcium 8.1 L Phosphorus 6.4 H Magnesium 2.1 Total Bilirubin 0.1 L AST 6619 H ALT 3328 H Alkaline Phosphatase 120 Ammonia Total Creatine Kinase Total Protein 6.3 Albumin 2.5 L Globulin 3.8 Albumin/Globulin Ratio 0.6 L Arterial Blood Potassium 4.9 Urine Color Urine Appearance Urine pH Ur Specific [place] Urine Protein Urine Glucose (UA) Urine Ketones Urine Blood Urine Nitrate Urine Bilirubin Urine Urobilinogen Ur Leukocyte Esterase Urine RBC Urine WBC Ur Epithelial Cells Urine Bacteria Hyaline Casts Ur Random Sodium Ur Random Urea Nitrogn Urine HCG, Qual Urine Opiates Screen Urine Methadone Screen Ur Barbiturates Screen Ur Phencyclidine Scrn Ur Amphetamines Screen U Benzodiazepines Scrn U Oth Cocaine Metabols U Cannabinoids Screen Hepatitis A IgM Ab Hep Bs Antigen Hep Bs Antibody Hep B Core IgM Ab 05/20/18 05/20/18 05/20/18 05:55 07:55 08:10 WBC RBC Hgb Hct MCV MCH MCHC RDW Plt Count MPV PT INR pCO2 57 H pO2 74.0 L HCO3 17.7 L ABG pH 7.10 L* ABG Total CO2 19.4 L ABG O2 Saturation 94.5 L ABG O2 Content 12.0 L ABG Base Excess -11.6 L ABG Hemoglobin 9.2 L ABG Carboxyhemoglobin 1.7 H POC ABG HHb (Measured) 5.4 H ABG Methemoglobin 0.6 ABG O2 Capacity 12.7 L ABG Potassium Hgb O2 Saturation 92.3 L Glucose Lactate FiO2 70.0 Pressure Support Inspiratory BiPAP Sodium Potassium Chloride Carbon Dioxide Anion Gap BUN Creatinine Est GFR ( Amer) Est GFR (Non-Af Amer) POC Glucose (mg/dL) 130 H Random Glucose Calcium Phosphorus Magnesium Total Bilirubin AST ALT Alkaline Phosphatase Ammonia Total Creatine Kinase 156 Total Protein Albumin Globulin Albumin/Globulin Ratio Arterial Blood Potassium Urine Color Urine Appearance Urine pH Ur Specific [place] Urine Protein Urine Glucose (UA) Urine Ketones Urine Blood Urine Nitrate Urine Bilirubin Urine Urobilinogen Ur Leukocyte Esterase Urine RBC Urine WBC Ur Epithelial Cells Urine Bacteria Hyaline Casts Ur Random Sodium Ur Random Urea Nitrogn Urine HCG, Qual Urine Opiates Screen Urine Methadone Screen Ur Barbiturates Screen Ur Phencyclidine Scrn Ur Amphetamines Screen U Benzodiazepines Scrn U Oth Cocaine Metabols U Cannabinoids Screen Hepatitis A IgM Ab Hep Bs Antigen Hep Bs Antibody Hep B Core IgM Ab 05/20/18 05/20/18 05/20/18 08:10 08:10 08:10 WBC RBC Hgb Hct MCV MCH MCHC RDW Plt Count MPV PT INR pCO2 pO2 HCO3 ABG pH ABG Total CO2 ABG O2 Saturation ABG O2 Content ABG Base Excess ABG Hemoglobin ABG Carboxyhemoglobin POC ABG HHb (Measured) ABG Methemoglobin ABG O2 Capacity ABG Potassium Hgb O2 Saturation Glucose Lactate FiO2 Pressure Support Inspiratory BiPAP Sodium Potassium Chloride Carbon Dioxide Anion Gap BUN Creatinine Est GFR ( Amer) Est GFR (Non-Af Amer) POC Glucose (mg/dL) Random Glucose Calcium Phosphorus Magnesium Total Bilirubin AST ALT Alkaline Phosphatase Ammonia 67 H Total Creatine Kinase Total Protein Albumin Globulin Albumin/Globulin Ratio Arterial Blood Potassium Urine Color Urine Appearance Urine pH Ur Specific [place] Urine Protein Urine Glucose (UA) Urine Ketones Urine Blood Urine Nitrate Urine Bilirubin Urine Urobilinogen Ur Leukocyte Esterase Urine RBC Urine WBC Ur Epithelial Cells Urine Bacteria Hyaline Casts Ur Random Sodium Ur Random Urea Nitrogn Urine HCG, Qual Urine Opiates Screen Urine Methadone Screen Ur Barbiturates Screen Ur Phencyclidine Scrn Ur Amphetamines Screen U Benzodiazepines Scrn U Oth Cocaine Metabols U Cannabinoids Screen Hepatitis A IgM Ab Negative Hep Bs Antigen Negative Hep Bs Antibody Positive Hep B Core IgM Ab Negative 05/20/18 05/20/18 05/20/18 08:17 09:26 13:00 WBC RBC Hgb Hct MCV MCH MCHC RDW Plt Count MPV PT INR pCO2 47 H pO2 74.0 L HCO3 16.4 L ABG pH 7.15 L* ABG Total CO2 17.8 L ABG O2 Saturation 95.6 ABG O2 Content 11.9 L ABG Base Excess -11.8 L ABG Hemoglobin 9.0 L ABG Carboxyhemoglobin 1.9 H POC ABG HHb (Measured) 4.3 ABG Methemoglobin 0.6 ABG O2 Capacity 12.4 L ABG Potassium Hgb O2 Saturation 93.2 L Glucose Lactate FiO2 60.0 Pressure Support Inspiratory BiPAP Sodium Potassium Chloride Carbon Dioxide Anion Gap BUN Creatinine Est GFR ( Amer) Est GFR (Non-Af Amer) POC Glucose (mg/dL) Random Glucose Calcium Phosphorus Magnesium Total Bilirubin AST ALT Alkaline Phosphatase Ammonia Total Creatine Kinase Total Protein Albumin Globulin Albumin/Globulin Ratio Arterial Blood Potassium Urine Color Urine Appearance Urine pH Ur Specific [place] Urine Protein Urine Glucose (UA) Urine Ketones Urine Blood Urine Nitrate Urine Bilirubin Urine Urobilinogen Ur Leukocyte Esterase Urine RBC Urine WBC Ur Epithelial Cells Urine Bacteria Hyaline Casts Ur Random Sodium 9 Ur Random Urea Nitrogn 363 Urine HCG, Qual Urine Opiates Screen Urine Methadone Screen Ur Barbiturates Screen Ur Phencyclidine Scrn Ur Amphetamines Screen U Benzodiazepines Scrn U Oth Cocaine Metabols U Cannabinoids Screen Hepatitis A IgM Ab Hep Bs Antigen Hep Bs Antibody Hep B Core IgM Ab Assessment/Plan - Assessment and Plan (Free Text) Plan: Patient seen and examined with resident, agree with note with following additions/exceptions: Patient is 37yo female with PMhx of HIV/AIDS, last CD4 count <20, non compliance with meds, PCP PNA, Hep C, hx of IVDU, recent admission to [facility] for PCP PNA presents for fever, chills, cough, and SOB. In the ER noted to have hypercapnia, hypoxia, and elevated LFTs. Placed on BIPAP initially, with no improvement, subsequently intubated. Currently intubated, minimally sedated, awake, writing on paper. ABG with persistnt metabolic and resp acidosis Labs, imaging, notes reviewed. Currently afebrile, BP stable ID following, antibiotics recs appreciated GI following Hepatology team at [facility] spoken to, no acute indication for liver transplant, likely combination of ischemic/viral hepaptitis given normal Tbilli, normal Tylenol levels Completed a course of NAC Adequate BP support provided with IVF Abx XRay no free air PNA, PCP SOB Fever Severe Sepsis elevated LFTs HIV/AIDs Hx of IVDU Liver failure without coma Recommend: - cont with vent support, increase MV, RR, obtain ABG, daily CXR - duonebs PRN - Solumedrol 40mg Q8hr IV - broad spectrum abx, as per ID - PCP tx Primaquin, Clinda - ID eval - Panculture Ucx, BCx, Procal - Renal eval - follow up GI - NAC - IV fluids - Renal sono - GI ppx - DVT ppx - monitor in MICU critical care time 40 minutes
--- NOTE | 2018-05-20 12:02 | RAD ---
Date of service: 05/20/2018 HISTORY: distended, LFTs severely increased, r/o free air COMPARISON: No prior. FINDINGS: BOWEL: Normal. No obstruction. No free air. BONES: Normal. OTHER FINDINGS: Nasogastric tube in satisfactory position IMPRESSION: No active disease.
[2018-05-20 12:48] LABS: HEPATITIS B SURFACE AG Negative (NEGATIVE)
[2018-05-20 12:54] LABS: HEPATITIS A IGM NEGATIVE (NEGATIVE); HEPATITIS B CORE AB NEGATIVE (NEGATIVE)
[2018-05-20 13:12] LABS: ARTERIAL BLOOD GAS HCO3 16.4 mmol/L (21-28); ARTERIAL BLOOD GAS O2 CAPACITY 12.4 mL/dl (16-24); ARTERIAL BLOOD GAS O2 CONTENT 11.9 ML/dl (15-23); ARTERIAL BLOOD GAS O2 SAT 95.6 % (95-98); ARTERIAL BLOOD GAS PCO2 47 mm/Hg (35-45); ARTERIAL BLOOD GAS TCO2 17.8 mmol.L (22-28)
[2018-05-20 13:33] LABS: ARTERIAL BLOOD GAS PH 7.15 (7.35-7.45)
--- NOTE | 2018-05-20 14:11 | CP.PCM.CON ---
History of Present Illness - History of Present Illness History of Present Illness: 37 year old female with PMH of HIV/AIDS, COPD, chronic back pain, history of IVDA, chronic hepatitis C infection untreated, history of pneumocystis pneumonia came in to [facility] complaining of worsening shortness of breath, fever and cough for about a week now. She was recently in [facility] at the end of March 2018 for probable Pneumocystis pneumonia and was discharged to complete her therapy for the pneumonia (but she apparently has not completed the therapy). In the ED , she was in severe respiratory distress and had to be intubated, put on the ventilator and now is in the ICU. There is no note of fever during this admission. She is noted to have very elevated transaminases. Infectious diseases consult is requested to further evaluate and manage. Review of Systems - Review of Systems Systems not reviewed;Unavailable: Intubated Past Patient History - Infectious Disease Hx of Infectious Diseases: None - Tetanus Immunizations Tetanus Immunization: Unknown - Past Social History Smoking Status: Heavy Smoker > 10 Cigarettes Daily - CARDIAC Hx Cardiac Disorders: Yes Hx Angina: No Hx Cardia Arrhythmia: No Hx Circulatory Problems: No Hx Congestive Heart Failure: No Hx Heart Murmur: No Hx Heart Transplant: No Hx Hypercholesterolemia: No Hx Hypertension: No Hx Internal Defibrillator: No Hx Mitral Valve Prolapse: No Hx Pacemaker: No Hx Peripheral Edema: Yes Hx Peripheral Vascular Disease: No - PULMONARY Hx Respiratory Disorders: Yes Hx Asthma: Yes Hx Bronchitis: No Hx Chronic Obstructive Pulmonary Disease (COPD): Yes Hx Emphysema: No Hx Pneumonia: Yes Hx Respiratory Aspiration: No Hx Respiratory Tract Infection: No Hx Sleep Apnea: No Hx Tuberculosis: No - NEUROLOGICAL Hx Neurological Disorder: No Hx Alzheimer's Disease: No HX Cerebrovascular Accident: No Hx Dementia: No Hx Dizziness: No Hx Meningitis: No Hx Migraine: No Hx Parkinson's Disease: No Hx Seizures: No Hx Transient Ischemic Attacks (TIA): No - HEENT Hx HEENT Problems: No Hx Blind: No Hx Cataracts: No Hx Deafness: No Hx Difficulty Chewing: No Hx Epistaxis: No Hx Glaucoma: No Hx Macular Degeneration: No - RENAL Hx Chronic Kidney Disease: No Hx Dialysis: No Hx Kidney Stones: No Hx Neurogenic Bladder: No Hx Pyelonephritis: No Hx Renal (Kidney) Cancer: No Hx Renal Failure: No - ENDOCRINE/METABOLIC Hx Endocrine Disorders: No Hx Adrenal Cancer: No Hx Diabetes Insipidus: No Hx Diabetes Mellitus Type 1: No Hx Diabetes Mellitus Type 2: No Hx Hyperthyroidism: No Hx Hypothyroidism: No Hx Systemic Lupus Erythematosus: No - HEMATOLOGICAL/ONCOLOGICAL Hx Blood Disorders: No Hx AIDS: Yes Hx Anemia: No Hx Cancer: No Hx Chemotherapy: No Hx Cirrhosis: No Hx Hemophilia: No Hx Hepatitis A: No Hx Hepatitis B: No Hx Hepatitis C: Yes Hx Human Immunodeficiency Virus (HIV): Yes Hx Metastesis: No Hx Shingles: No Hx Sickle Cell Disease: No Hx Unexplained Bleeding: No - INTEGUMENTARY Hx Dermatological Problems: No Hx Basil Cell: No Hx Eczema: No Hx Melanoma: No Hx Psoriasis: No Hx Squamous Cell: No - MUSCULOSKELETAL/RHEUMATOLOGICAL Hx Musculoskeletal Disorders: No Hx Arthritis: No Hx Back Pain: No Hx Degenerative Joint Disease: No Hx Falls: No Hx Fractures: No Hx Gout: No Hx Herniated Disk: No Hx Myasthenia Gravis: No Hx Osteoarthritis: No Hx Osteomyelitis: No Hx Osteoporosis: No Hx Rhabdomyolysis: No Hx Spinal Stenosis: No Hx Unsteady Gait: No - GASTROINTESTINAL Hx Gastrointestinal Disorders: No Hx Colostomy: No Hx Crohn's Disease: No Hx Diverticulitis: No Hx Gall Bladder Disease: No Hx Gastroesophageal Reflux: No Hx Ileostomy: No Hx Liver Failure: No Hx Pancreatitis: No HX Swallowing Problems: No Hx Ulcer: No - GENITOURINARY/GYNECOLOGICAL Hx Genitourinary Disorders: No Hx Hematuria: No Hx Incontinence: No Hx Sexually Transmitted Disorders: No Hx Urinary Tract Infection: No - PSYCHIATRIC Hx Psychophysiologic Disorder: No Hx Anxiety: No Hx Bipolar Disorder: No Hx Depression: No Hx Emotional Abuse: No Hx Hallucinations: No Hx Panic Symptoms: No Hx Paranoia: No Hx Post Traumatic Stress Disorder: No Hx Psychosis: No Hx Physical Abuse: No Hx Schizophrenia: No Hx Sexual Abuse: No Hx Substance Use: Yes - SURGICAL HISTORY Hx Surgeries: No Hx Amputation: No Hx Appendectomy: No Hx Cardiac Catheterization: No Hx Cholecystectomy: No Hx Coronary Stent: No Hx Gastric Bypass Surgery: No Hx Hysterectomy: No Hx Joint Replacement: No Hx Kidney Transplant: No Hx Liver Transplant: No Hx Mastectomy: No Hx Musculoskeletal Surgery: No Hx Open Heart Surgery: No Hx Orthopedic Surgery: No Hx Splenectomy: No Hx Valve Replacement: No - ANESTHESIA Hx Anesthesia: Yes Hx Anesthesia Reactions: No Hx Malignant Hyperthermia: No Meds Allergies/Adverse Reactions: Allergies Allergy/AdvReac Type Severity Reaction Status Date / Time levofloxacin [From Levaquin] Allergy RASH Verified 05/19/18 10:22 Penicillins Allergy RASH Verified 05/19/18 10:22 sulfamethoxazole Allergy ANGIOEDEMA Verified 05/19/18 10:22 [From Bactrim] trimethoprim [From Bactrim] Allergy ANGIOEDEMA Verified 05/19/18 10:22 azithromycin [From Zithromax] AdvReac RASH Verified 05/19/18 10:22 flexeril AdvReac RASH Uncoded 05/19/18 10:22 - Medications Medications: Current Medications Atovaquone (Mepron) 750 mg PO BID EDSON PRN Reason: Protocol Heparin Sodium (Porcine) (Heparin) 5,000 units SC Q8H EDSON PRN Reason: Protocol Last Admin: 05/19/18 22:04 Dose: 5,000 units Clindamycin Phosphate 900 mg/ (Sodium Chloride) 106 mls @ 106 mls/hr IVPB Q8 EDSON PRN Reason: Protocol Last Admin: 05/19/18 22:03 Dose: 106 mls/hr Sodium Chloride (Sodium Chloride 0.9%) 1,000 mls @ 100 mls/hr IV .Q10H [facility] Last Admin: 05/20/18 04:57 Dose: 100 mls/hr Vancomycin HCl (Vancomycin 1gm) 1 gm in 250 mls @ 167 mls/hr IVPB DAILY EDSON Aztreonam (Azactam 1 Gm) 100 mls @ 100 mls/hr IVPB Q12 EDSON PRN Reason: Protocol Stop: 05/20/18 10:59 Last Admin: 05/19/18 23:05 Dose: 100 mls/hr Methylprednisolone (Solu-Medrol) 60 mg IVP Q8 EDSON Primaquine Phosphate (Primaquine) 26.3 mg PO ONCE ONE PRN Reason: Protocol Stop: 05/20/18 16:19 Physical Exam - Constitutional Appears: Other (intubated, sedated) - Head Exam Head Exam: NORMAL INSPECTION - ENT Exam Additional comments: ET tube in place - Neck Exam Neck exam: Negative for: Meningismus - Respiratory Exam Respiratory Exam: Decreased Breath Sounds - Cardiovascular Exam Cardiovascular Exam: +S1, +S2 - GI/Abdominal Exam GI & Abdominal Exam: Soft. absent: Tenderness Results - Vital Signs Recent Vital Signs: Last Vital Signs Temp 98.5 F 05/19/18 21:23 Pulse 101 H 05/20/18 00:00 Resp 16 05/19/18 21:23 BP 105/76 05/19/18 21:23 Pulse Ox 100 05/19/18 19:40 - Labs Result Diagrams: 05/20/18 04:45 05/20/18 04:45 Labs: Laboratory Results - last 24 hr 05/19/18 05/19/18 05/20/18 17:20 17:25 00:45 WBC RBC Hgb Hct MCV MCH MCHC RDW Plt Count MPV PT INR pCO2 61 H pO2 68.0 L HCO3 18.9 L ABG pH 7.10 L* ABG Total CO2 20.8 L ABG O2 Saturation 92.5 L ABG O2 Content 12.3 L ABG Base Excess -10.7 L ABG Hemoglobin 9.7 L ABG Carboxyhemoglobin 2.0 H POC ABG HHb (Measured) 7.3 H ABG Methemoglobin 1.0 ABG O2 Capacity 13.3 L ABG Potassium Hgb O2 Saturation 89.7 L Glucose Lactate FiO2 50.0 Pressure Support Inspiratory BiPAP Sodium Potassium Chloride Carbon Dioxide Anion Gap BUN Creatinine Est GFR ( Amer) Est GFR (Non-Af Amer) POC Glucose (mg/dL) Random Glucose Calcium Phosphorus Magnesium Total Bilirubin Alkaline Phosphatase Total Protein Albumin Globulin Albumin/Globulin Ratio Arterial Blood Potassium Urine Color Yellow Urine Appearance Clear Urine pH 6.0 Ur Specific [place] >= 1.030 Urine Protein 100 H Urine Glucose (UA) Negative Urine Ketones Negative Urine Blood Negative Urine Nitrate Negative Urine Bilirubin Negative Urine Urobilinogen 0.2 Ur Leukocyte Esterase Negative Urine RBC Negative Urine WBC 2 - 5 Ur Epithelial Cells 1 - 3 Urine Bacteria Small Hyaline Casts 0 - 2 Urine HCG, Qual Urine Opiates Screen Negative Urine Methadone Screen No result Ur Barbiturates Screen Negative Ur Phencyclidine Scrn Negative Ur Amphetamines Screen Negative U Benzodiazepines Scrn Negative U Oth Cocaine Metabols Negative U Cannabinoids Screen No result 05/20/18 05/20/18 05/20/18 01:49 03:30 04:45 WBC 25.2 H* D RBC 3.67 Hgb 9.7 L Hct 31.5 L MCV 85.8 MCH 26.4 MCHC 30.8 L RDW 16.2 H Plt Count 173 MPV 10.1 PT INR pCO2 61 H pO2 78.0 L HCO3 18.9 L ABG pH 7.10 L* ABG Total CO2 20.8 L ABG O2 Saturation 95.1 ABG O2 Content 12.4 L ABG Base Excess -10.7 L ABG Hemoglobin 9.5 L ABG Carboxyhemoglobin 2.4 H POC ABG HHb (Measured) 4.7 ABG Methemoglobin 1.0 ABG O2 Capacity 13.0 L ABG Potassium Hgb O2 Saturation 91.9 L Glucose Lactate FiO2 60.0 Pressure Support Inspiratory BiPAP Sodium Potassium Chloride Carbon Dioxide Anion Gap BUN Creatinine Est GFR ( Amer) Est GFR (Non-Af Amer) POC Glucose (mg/dL) Random Glucose Calcium Phosphorus Magnesium Total Bilirubin Alkaline Phosphatase Total Protein Albumin Globulin Albumin/Globulin Ratio Arterial Blood Potassium Urine Color Urine Appearance Urine pH Ur Specific [place] Urine Protein Urine Glucose (UA) Urine Ketones Urine Blood Urine Nitrate Urine Bilirubin Urine Urobilinogen Ur Leukocyte Esterase Urine RBC Urine WBC Ur Epithelial Cells Urine Bacteria Hyaline Casts Urine HCG, Qual Negative Urine Opiates Screen Urine Methadone Screen Ur Barbiturates Screen Ur Phencyclidine Scrn Ur Amphetamines Screen U Benzodiazepines Scrn U Oth Cocaine Metabols U Cannabinoids Screen 05/20/18 05/20/18 05/20/18 04:45 04:45 05:00 WBC RBC Hgb Hct MCV MCH MCHC RDW Plt Count MPV PT 16.3 H INR 1.41 H pCO2 62 H pO2 128.0 H HCO3 19.7 L ABG pH 7.11 L* ABG Total CO2 21.6 L ABG O2 Saturation 99.2 H ABG O2 Content ABG Base Excess -10.5 L ABG Hemoglobin ABG Carboxyhemoglobin POC ABG HHb (Measured) ABG Methemoglobin ABG O2 Capacity ABG Potassium 4.9 Hgb O2 Saturation Glucose 143 H Lactate 0.8 FiO2 80.0 Pressure Support 14 Inspiratory BiPAP 20 Sodium 139 136.0 Potassium 5.0 Chloride 110 H 110.0 H Carbon Dioxide 17 L Anion Gap 17 BUN 50 H Creatinine 1.6 H Est GFR ( Amer) 44 Est GFR (Non-Af Amer) 36 POC Glucose (mg/dL) Random Glucose 138 H Calcium 8.1 L Phosphorus 6.4 H Magnesium 2.1 Total Bilirubin 0.1 L Alkaline Phosphatase 120 Total Protein 6.3 Albumin 2.5 L Globulin 3.8 Albumin/Globulin Ratio 0.6 L Arterial Blood Potassium 4.9 Urine Color Urine Appearance Urine pH Ur Specific [place] Urine Protein Urine Glucose (UA) Urine Ketones Urine Blood Urine Nitrate Urine Bilirubin Urine Urobilinogen Ur Leukocyte Esterase Urine RBC Urine WBC Ur Epithelial Cells Urine Bacteria Hyaline Casts Urine HCG, Qual Urine Opiates Screen Urine Methadone Screen Ur Barbiturates Screen Ur Phencyclidine Scrn Ur Amphetamines Screen U Benzodiazepines Scrn U Oth Cocaine Metabols U Cannabinoids Screen 05/20/18 05:55 WBC RBC Hgb Hct MCV MCH MCHC RDW Plt Count MPV PT INR pCO2 pO2 HCO3 ABG pH ABG Total CO2 ABG O2 Saturation ABG O2 Content ABG Base Excess ABG Hemoglobin ABG Carboxyhemoglobin POC ABG HHb (Measured) ABG Methemoglobin ABG O2 Capacity ABG Potassium Hgb O2 Saturation Glucose Lactate FiO2 Pressure Support Inspiratory BiPAP Sodium Potassium Chloride Carbon Dioxide Anion Gap BUN Creatinine Est GFR ( Amer) Est GFR (Non-Af Amer) POC Glucose (mg/dL) 130 H Random Glucose Calcium Phosphorus Magnesium Total Bilirubin Alkaline Phosphatase Total Protein Albumin Globulin Albumin/Globulin Ratio Arterial Blood Potassium Urine Color Urine Appearance Urine pH Ur Specific [place] Urine Protein Urine Glucose (UA) Urine Ketones Urine Blood Urine Nitrate Urine Bilirubin Urine Urobilinogen Ur Leukocyte Esterase Urine RBC Urine WBC Ur Epithelial Cells Urine Bacteria Hyaline Casts Urine HCG, Qual Urine Opiates Screen Urine Methadone Screen Ur Barbiturates Screen Ur Phencyclidine Scrn Ur Amphetamines Screen U Benzodiazepines Scrn U Oth Cocaine Metabols U Cannabinoids Screen Assessment & Plan - Assessment and Plan (Free Text) Plan: Assessment severe sepsis/septic shock with ventilator-dependent respiratory failure, acute renal failure and acute fulminant hepatitis due to possible pneumocystis pneumonia on top of HCAP, R/O CMV, R/O HSV HIV/AIDS with last CD4 count <20, non-compliant with her meds COPD chronic back pain history of IVDA hepatitis C infection Plan started Clindamycin and Primaquine, gave a dose of IV Vancomycin and started Merrem pending blood, sputum cx, PCT; will also check beta glucan, RPR, serum Crypt Ag, CMV PCR we have also started Acyclovir - should rule out HSV hepatitis will check Hepatitis B and A profile follow up GI evaluation and recommendations - should monitor and trend transaminases overall prognosis is poor unless patient starts taking her HIV meds ,
[2018-05-20 15:06] LABS: HEPATITIS C ANTIBODY REACTIVE (NEGATIVE)
--- NOTE | 2018-05-20 15:21 | CP.PCM.CON ---
History of Present Illness - History of Present Illness History of Present Illness: Nephrology Consultation Note: Assessment: critical Acute Kidney Injury (N17.9) likely due to sepsis/hypotension and pre-renal state /dehydration as evident by concentrated urine abnormal LFT acute hypercapnic respi failure combined respi and metabolic acidosis Hyperphosphatemia HIV/AIDS (CD 4 count <20) non compliant to meds, hx of PCP pneumonia, IVDA, chronic Hep C, COPD Plan No acute need for renal replacement therapy at this time. maintain hemodynamics stable. avoid hypotension. Patient not on ACEI/ARB due to BERNICE Monitor Input/Output, daily weights and renal function with basic metabolic panel continue with IVF. agree with bicarb drip but increase Hco3 as 75 meq instead of 50 meq in 0.45% saline to keep IVF as isotonic ID, GI following Dose meds/antibiotics for reduced GFR. Avoid fleets enema/magnesium based laxatives. Avoid nephrotoxins/NSAIDs/ iodinated contrast (unless needed emergently) Glycemic control Further work up/management as per primary team Thanks for allowing me to participate in care of your patient. Will follow patient with you. Please call if any Qs. had d/w team Dr Sesar Paez Office: [phone] Chief Complaint; unable to obtain reason for consult: BERNICE source of Info; EMR HPI: Pt is a 37 F with hx of HIV/AIDS (CD 4 count <20) non compliant to meds, hx of PCP pneumonia, IVDA, chronic Hep C, COPD presented with complaints of SOB , cough and fever, found to have sepsis, acute respi failure s/p intubation 05/19 also with BERNICE and abnormal LFT. renal consult for BERNICE management No recent iodinated contrast exposure. Noted obvious episodes of low BP. ROS: unable to obtain from pt as she is intubated Physical Examination: General Appearance: Comfortable, in no acute respiratory distress. intubated orally. on 60% FiO2 Vitals reviewed and noted as below Head; Atraumatic, normocephalic ENT: orlaly intubated EYES: Pupils are equal, round and reactive to light accommodation. Eye muscles and extraocular movement intact. Sclera is anicteric. Neck; supple no lymphadenopathy, no thyromegaly or bruit Lungs: Normal respiratory rate/effort. Breath sounds bilateral equal and with few exp wheeze Heart: Normal rate. s1s2 normal. No rub or gallop. Extremities: no edema. No varicose veins Neurological: Patient is awake further exam deferred Skin: Warm and dry. Normal turgor. No rash. Palpitation: Normal elasticity for age Abdomen: Abdomen is soft. Bowel sounds +. There is no abdominal tenderness, no guarding/rigidity no organomegaly. appears distended Psych: unable MSK: no joint tenderness or swelling. Digits and nails normal, no deformity : kidney or bladder not palpable. has fuentes Labs/imaging reviewed. Past medical history, past surgical history, family history, social history, allergy reviewed and noted as below Family hx: no hx of CKD. Rest non-contributory work up: renal imaging unremarkable UA SG >1.030 Na 9 neg for ketone/blood CK normal Past Patient History - Infectious Disease Hx of Infectious Diseases: None - Tetanus Immunizations Tetanus Immunization: Unknown - Past Social History Smoking Status: Heavy Smoker > 10 Cigarettes Daily - CARDIAC Hx Cardiac Disorders: Yes Hx Angina: No Hx Cardia Arrhythmia: No Hx Circulatory Problems: No Hx Congestive Heart Failure: No Hx Heart Murmur: No Hx Heart Transplant: No Hx Hypercholesterolemia: No Hx Hypertension: No Hx Internal Defibrillator: No Hx Mitral Valve Prolapse: No Hx Pacemaker: No Hx Peripheral Edema: Yes Hx Peripheral Vascular Disease: No - PULMONARY Hx Respiratory Disorders: Yes Hx Asthma: Yes Hx Bronchitis: No Hx Chronic Obstructive Pulmonary Disease (COPD): Yes Hx Emphysema: No Hx Pneumonia: Yes Hx Respiratory Aspiration: No Hx Respiratory Tract Infection: No Hx Sleep Apnea: No Hx Tuberculosis: No - NEUROLOGICAL Hx Neurological Disorder: No Hx Alzheimer's Disease: No HX Cerebrovascular Accident: No Hx Dementia: No Hx Dizziness: No Hx Meningitis: No Hx Migraine: No Hx Parkinson's Disease: No Hx Seizures: No Hx Transient Ischemic Attacks (TIA): No - HEENT Hx HEENT Problems: No Hx Blind: No Hx Cataracts: No Hx Deafness: No Hx Difficulty Chewing: No Hx Epistaxis: No Hx Glaucoma: No Hx Macular Degeneration: No - RENAL Hx Chronic Kidney Disease: No Hx Dialysis: No Hx Kidney Stones: No Hx Neurogenic Bladder: No Hx Pyelonephritis: No Hx Renal (Kidney) Cancer: No Hx Renal Failure: No - ENDOCRINE/METABOLIC Hx Endocrine Disorders: No Hx Adrenal Cancer: No Hx Diabetes Insipidus: No Hx Diabetes Mellitus Type 1: No Hx Diabetes Mellitus Type 2: No Hx Hyperthyroidism: No Hx Hypothyroidism: No Hx Systemic Lupus Erythematosus: No - HEMATOLOGICAL/ONCOLOGICAL Hx Blood Disorders: No Hx AIDS: Yes Hx Anemia: No Hx Cancer: No Hx Chemotherapy: No Hx Cirrhosis: No Hx Hemophilia: No Hx Hepatitis A: No Hx Hepatitis B: No Hx Hepatitis C: Yes Hx Human Immunodeficiency Virus (HIV): Yes Hx Metastesis: No Hx Shingles: No Hx Sickle Cell Disease: No Hx Unexplained Bleeding: No - INTEGUMENTARY Hx Dermatological Problems: No Hx Basil Cell: No Hx Eczema: No Hx Melanoma: No Hx Psoriasis: No Hx Squamous Cell: No - MUSCULOSKELETAL/RHEUMATOLOGICAL Hx Musculoskeletal Disorders: No Hx Arthritis: No Hx Back Pain: No Hx Degenerative Joint Disease: No Hx Falls: No Hx Fractures: No Hx Gout: No Hx Herniated Disk: No Hx Myasthenia Gravis: No Hx Osteoarthritis: No Hx Osteomyelitis: No Hx Osteoporosis: No Hx Rhabdomyolysis: No Hx Spinal Stenosis: No Hx Unsteady Gait: No - GASTROINTESTINAL Hx Gastrointestinal Disorders: No Hx Colostomy: No Hx Crohn's Disease: No Hx Diverticulitis: No Hx Gall Bladder Disease: No Hx Gastroesophageal Reflux: No Hx Ileostomy: No Hx Liver Failure: No Hx Pancreatitis: No HX Swallowing Problems: No Hx Ulcer: No - GENITOURINARY/GYNECOLOGICAL Hx Genitourinary Disorders: No Hx Hematuria: No Hx Incontinence: No Hx Sexually Transmitted Disorders: No Hx Urinary Tract Infection: No - PSYCHIATRIC Hx Psychophysiologic Disorder: No Hx Anxiety: No Hx Bipolar Disorder: No Hx Depression: No Hx Emotional Abuse: No Hx Hallucinations: No Hx Panic Symptoms: No Hx Paranoia: No Hx Post Traumatic Stress Disorder: No Hx Psychosis: No Hx Physical Abuse: No Hx Schizophrenia: No Hx Sexual Abuse: No Hx Substance Use: Yes - SURGICAL HISTORY Hx Surgeries: No Hx Amputation: No Hx Appendectomy: No Hx Cardiac Catheterization: No Hx Cholecystectomy: No Hx Coronary Stent: No Hx Gastric Bypass Surgery: No Hx Hysterectomy: No Hx Joint Replacement: No Hx Kidney Transplant: No Hx Liver Transplant: No Hx Mastectomy: No Hx Musculoskeletal Surgery: No Hx Open Heart Surgery: No Hx Orthopedic Surgery: No Hx Splenectomy: No Hx Valve Replacement: No - ANESTHESIA Hx Anesthesia: Yes Hx Anesthesia Reactions: No Hx Malignant Hyperthermia: No Meds Allergies/Adverse Reactions: Allergies Allergy/AdvReac Type Severity Reaction Status Date / Time levofloxacin [From Levaquin] Allergy RASH Verified 05/19/18 10:22 Penicillins Allergy RASH Verified 05/19/18 10:22 sulfamethoxazole Allergy ANGIOEDEMA Verified 05/19/18 10:22 [From Bactrim] trimethoprim [From Bactrim] Allergy ANGIOEDEMA Verified 05/19/18 10:22 azithromycin [From Zithromax] AdvReac RASH Verified 05/19/18 10:22 flexeril AdvReac RASH Uncoded 05/19/18 10:22 - Medications Medications: Current Medications Famotidine (Pepcid) 20 mg PO DAILY [facility] Heparin Sodium (Porcine) (Heparin) 5,000 units SC Q8H [facility] PRN Reason: Protocol Last Admin: 05/20/18 13:42 Dose: 5,000 units Clindamycin Phosphate 900 mg/ (Sodium Chloride) 106 mls @ 106 mls/hr IVPB Q8 [facility] PRN Reason: Protocol Last Admin: 05/20/18 13:49 Dose: 106 mls/hr Sodium Chloride (Sodium Chloride 0.9%) 1,000 mls @ 100 mls/hr IV .Q10H [facility] Last Admin: 05/20/18 13:47 Dose: 100 mls/hr Meropenem (Merrem Iv 1 Gm Premix) 50 mls @ 100 mls/hr IVPB Q12 [facility] PRN Reason: Protocol Last Admin: 05/20/18 09:23 Dose: 100 mls/hr Fentanyl Citrate (Fentanyl Citrate/Sodium Chloride 1 Mg/100 Ml) 1,000 mcg in 100 mls @ 2 mls/hr IV .Q24H PRN; Protocol; 20 MCG/HR PRN Reason: TITRATE PER MD ORDER Last Admin: 05/20/18 10:57 Dose: 20 mcg/hr, 2 mls/hr Acyclovir 600 mg/ Sodium (Chloride) 100 mls @ 100 mls/hr IV Q12 [facility] PRN Reason: Protocol Last Admin: 05/20/18 11:39 Dose: 100 mls/hr Sodium Bicarbonate 75 meq/ (Sodium Chloride) 1,075 mls @ 75 mls/hr IV .[id number] [facility] Methadone HCl (Methadone) 120 mg PO DAILY [facility] Methylprednisolone (Solu-Medrol) 60 mg IVP Q8 [facility] Last Admin: 05/20/18 13:45 Dose: 60 mg Primaquine Phosphate (Primaquine) 26.3 mg PO ONCE ONE PRN Reason: Protocol Stop: 05/20/18 16:19 Primaquine Phosphate (Primaquine) 26.3 mg PO DAILY [facility] PRN Reason: Protocol Last Admin: 05/20/18 09:22 Dose: 26.3 mg Results - Vital Signs Recent Vital Signs: Last Vital Signs Temp 98.5 F 05/19/18 21:23 Pulse 93 H 05/20/18 14:50 Resp 16 05/20/18 07:46 BP 111/79 05/20/18 14:00 Pulse Ox 92 L 05/20/18 14:50 - Labs Result Diagrams: 05/20/18 04:45 05/20/18 04:45 Labs: Laboratory Results - last 24 hr 05/19/18 05/19/18 05/20/18 17:20 17:25 00:45 WBC RBC Hgb Hct MCV MCH MCHC RDW Plt Count MPV PT INR pCO2 61 H pO2 68.0 L HCO3 18.9 L ABG pH 7.10 L* ABG Total CO2 20.8 L ABG O2 Saturation 92.5 L ABG O2 Content 12.3 L ABG Base Excess -10.7 L ABG Hemoglobin 9.7 L ABG Carboxyhemoglobin 2.0 H POC ABG HHb (Measured) 7.3 H ABG Methemoglobin 1.0 ABG O2 Capacity 13.3 L ABG Potassium Hgb O2 Saturation 89.7 L Glucose Lactate FiO2 50.0 Pressure Support Inspiratory BiPAP Sodium Potassium Chloride Carbon Dioxide Anion Gap BUN Creatinine Est GFR ( Amer) Est GFR (Non-Af Amer) POC Glucose (mg/dL) Random Glucose Calcium Phosphorus Magnesium Total Bilirubin AST ALT Alkaline Phosphatase Ammonia Total Creatine Kinase Total Protein Albumin Globulin Albumin/Globulin Ratio Procalcitonin Arterial Blood Potassium Urine Color Yellow Urine Appearance Clear Urine pH 6.0 Ur Specific [place] >= 1.030 Urine Protein 100 H Urine Glucose (UA) Negative Urine Ketones Negative Urine Blood Negative Urine Nitrate Negative Urine Bilirubin Negative Urine Urobilinogen 0.2 Ur Leukocyte Esterase Negative Urine RBC Negative Urine WBC 2 - 5 Ur Epithelial Cells 1 - 3 Urine Bacteria Small Hyaline Casts 0 - 2 Ur Random Sodium Ur Random Urea Nitrogn Urine HCG, Qual Urine Opiates Screen Negative Urine Methadone Screen No result Ur Barbiturates Screen Negative Ur Phencyclidine Scrn Negative Ur Amphetamines Screen Negative U Benzodiazepines Scrn Negative U Oth Cocaine Metabols Negative U Cannabinoids Screen No result Hepatitis A IgM Ab Hep Bs Antigen Hep Bs Antibody Hep B Core IgM Ab Hepatitis C Antibody 05/20/18 05/20/18 05/20/18 01:49 03:30 04:45 WBC RBC Hgb Hct MCV MCH MCHC RDW Plt Count MPV PT INR pCO2 61 H pO2 78.0 L HCO3 18.9 L ABG pH 7.10 L* ABG Total CO2 20.8 L ABG O2 Saturation 95.1 ABG O2 Content 12.4 L ABG Base Excess -10.7 L ABG Hemoglobin 9.5 L ABG Carboxyhemoglobin 2.4 H POC ABG HHb (Measured) 4.7 ABG Methemoglobin 1.0 ABG O2 Capacity 13.0 L ABG Potassium Hgb O2 Saturation 91.9 L Glucose Lactate FiO2 60.0 Pressure Support Inspiratory BiPAP Sodium Potassium Chloride Carbon Dioxide Anion Gap BUN Creatinine Est GFR ( Amer) Est GFR (Non-Af Amer) POC Glucose (mg/dL) Random Glucose Calcium Phosphorus Magnesium Total Bilirubin AST ALT Alkaline Phosphatase Ammonia Total Creatine Kinase Total Protein Albumin Globulin Albumin/Globulin Ratio Procalcitonin 0.33 Arterial Blood Potassium Urine Color Urine Appearance Urine pH Ur Specific [place] Urine Protein Urine Glucose (UA) Urine Ketones Urine Blood Urine Nitrate Urine Bilirubin Urine Urobilinogen Ur Leukocyte Esterase Urine RBC Urine WBC Ur Epithelial Cells Urine Bacteria Hyaline Casts Ur Random Sodium Ur Random Urea Nitrogn Urine HCG, Qual Negative Urine Opiates Screen Urine Methadone Screen Ur Barbiturates Screen Ur Phencyclidine Scrn Ur Amphetamines Screen U Benzodiazepines Scrn U Oth Cocaine Metabols U Cannabinoids Screen Hepatitis A IgM Ab Hep Bs Antigen Hep Bs Antibody Hep B Core IgM Ab Hepatitis C Antibody 05/20/18 05/20/18 05/20/18 04:45 04:45 04:45 WBC 25.2 H* D RBC 3.67 Hgb 9.7 L Hct 31.5 L MCV 85.8 MCH 26.4 MCHC 30.8 L RDW 16.2 H Plt Count 173 MPV 10.1 PT 16.3 H INR 1.41 H pCO2 pO2 HCO3 ABG pH ABG Total CO2 ABG O2 Saturation ABG O2 Content ABG Base Excess ABG Hemoglobin ABG Carboxyhemoglobin POC ABG HHb (Measured) ABG Methemoglobin ABG O2 Capacity ABG Potassium Hgb O2 Saturation Glucose Lactate FiO2 Pressure Support Inspiratory BiPAP Sodium 139 Potassium 5.0 Chloride 110 H Carbon Dioxide 17 L Anion Gap 17 BUN 50 H Creatinine 1.6 H Est GFR ( Amer) 44 Est GFR (Non-Af Amer) 36 POC Glucose (mg/dL) Random Glucose 138 H Calcium 8.1 L Phosphorus 6.4 H Magnesium 2.1 Total Bilirubin 0.1 L AST 6619 H ALT 3328 H Alkaline Phosphatase 120 Ammonia Total Creatine Kinase Total Protein 6.3 Albumin 2.5 L Globulin 3.8 Albumin/Globulin Ratio 0.6 L Procalcitonin Arterial Blood Potassium Urine Color Urine Appearance Urine pH Ur Specific [place] Urine Protein Urine Glucose (UA) Urine Ketones Urine Blood Urine Nitrate Urine Bilirubin Urine Urobilinogen Ur Leukocyte Esterase Urine RBC Urine WBC Ur Epithelial Cells Urine Bacteria Hyaline Casts Ur Random Sodium Ur Random Urea Nitrogn Urine HCG, Qual Urine Opiates Screen Urine Methadone Screen Ur Barbiturates Screen Ur Phencyclidine Scrn Ur Amphetamines Screen U Benzodiazepines Scrn U Oth Cocaine Metabols U Cannabinoids Screen Hepatitis A IgM Ab Hep Bs Antigen Hep Bs Antibody Hep B Core IgM Ab Hepatitis C Antibody 05/20/18 05/20/18 05/20/18 05:00 05:55 07:55 WBC RBC Hgb Hct MCV MCH MCHC RDW Plt Count MPV PT INR pCO2 62 H 57 H pO2 128.0 H 74.0 L HCO3 19.7 L 17.7 L ABG pH 7.11 L* 7.10 L* ABG Total CO2 21.6 L 19.4 L ABG O2 Saturation 99.2 H 94.5 L ABG O2 Content 12.0 L ABG Base Excess -10.5 L -11.6 L ABG Hemoglobin 9.2 L ABG Carboxyhemoglobin 1.7 H POC ABG HHb (Measured) 5.4 H ABG Methemoglobin 0.6 ABG O2 Capacity 12.7 L ABG Potassium 4.9 Hgb O2 Saturation 92.3 L Glucose 143 H Lactate 0.8 FiO2 80.0 70.0 Pressure Support 14 Inspiratory BiPAP 20 Sodium 136.0 Potassium Chloride 110.0 H Carbon Dioxide Anion Gap BUN Creatinine Est GFR ( Amer) Est GFR (Non-Af Amer) POC Glucose (mg/dL) 130 H Random Glucose Calcium Phosphorus Magnesium Total Bilirubin AST ALT Alkaline Phosphatase Ammonia Total Creatine Kinase Total Protein Albumin Globulin Albumin/Globulin Ratio Procalcitonin Arterial Blood Potassium 4.9 Urine Color Urine Appearance Urine pH Ur Specific [place] Urine Protein Urine Glucose (UA) Urine Ketones Urine Blood Urine Nitrate Urine Bilirubin Urine Urobilinogen Ur Leukocyte Esterase Urine RBC Urine WBC Ur Epithelial Cells Urine Bacteria Hyaline Casts Ur Random Sodium Ur Random Urea Nitrogn Urine HCG, Qual Urine Opiates Screen Urine Methadone Screen Ur Barbiturates Screen Ur Phencyclidine Scrn Ur Amphetamines Screen U Benzodiazepines Scrn U Oth Cocaine Metabols U Cannabinoids Screen Hepatitis A IgM Ab Hep Bs Antigen Hep Bs Antibody Hep B Core IgM Ab Hepatitis C Antibody 05/20/18 05/20/18 05/20/18 08:10 08:10 08:10 WBC RBC Hgb Hct MCV MCH MCHC RDW Plt Count MPV PT INR pCO2 pO2 HCO3 ABG pH ABG Total CO2 ABG O2 Saturation ABG O2 Content ABG Base Excess ABG Hemoglobin ABG Carboxyhemoglobin POC ABG HHb (Measured) ABG Methemoglobin ABG O2 Capacity ABG Potassium Hgb O2 Saturation Glucose Lactate FiO2 Pressure Support Inspiratory BiPAP Sodium Potassium Chloride Carbon Dioxide Anion Gap BUN Creatinine Est GFR ( Amer) Est GFR (Non-Af Amer) POC Glucose (mg/dL) Random Glucose Calcium Phosphorus Magnesium Total Bilirubin AST ALT Alkaline Phosphatase Ammonia 67 H Total Creatine Kinase 156 Total Protein Albumin Globulin Albumin/Globulin Ratio Procalcitonin Arterial Blood Potassium Urine Color Urine Appearance Urine pH Ur Specific [place] Urine Protein Urine Glucose (UA) Urine Ketones Urine Blood Urine Nitrate Urine Bilirubin Urine Urobilinogen Ur Leukocyte Esterase Urine RBC Urine WBC Ur Epithelial Cells Urine Bacteria Hyaline Casts Ur Random Sodium Ur Random Urea Nitrogn Urine HCG, Qual Urine Opiates Screen Urine Methadone Screen Ur Barbiturates Screen Ur Phencyclidine Scrn Ur Amphetamines Screen U Benzodiazepines Scrn U Oth Cocaine Metabols U Cannabinoids Screen Hepatitis A IgM Ab Hep Bs Antigen Hep Bs Antibody Positive Hep B Core IgM Ab Hepatitis C Antibody 05/20/18 05/20/18 05/20/18 08:10 08:17 09:26 WBC RBC Hgb Hct MCV MCH MCHC RDW Plt Count MPV PT INR pCO2 pO2 HCO3 ABG pH ABG Total CO2 ABG O2 Saturation ABG O2 Content ABG Base Excess ABG Hemoglobin ABG Carboxyhemoglobin POC ABG HHb (Measured) ABG Methemoglobin ABG O2 Capacity ABG Potassium Hgb O2 Saturation Glucose Lactate FiO2 Pressure Support Inspiratory BiPAP Sodium Potassium Chloride Carbon Dioxide Anion Gap BUN Creatinine Est GFR ( Amer) Est GFR (Non-Af Amer) POC Glucose (mg/dL) Random Glucose Calcium Phosphorus Magnesium Total Bilirubin AST ALT Alkaline Phosphatase Ammonia Total Creatine Kinase Total Protein Albumin Globulin Albumin/Globulin Ratio Procalcitonin Arterial Blood Potassium Urine Color Urine Appearance Urine pH Ur Specific [place] Urine Protein Urine Glucose (UA) Urine Ketones Urine Blood Urine Nitrate Urine Bilirubin Urine Urobilinogen Ur Leukocyte Esterase Urine RBC Urine WBC Ur Epithelial Cells Urine Bacteria Hyaline Casts Ur Random Sodium 9 Ur Random Urea Nitrogn 363 Urine HCG, Qual Urine Opiates Screen Urine Methadone Screen Ur Barbiturates Screen Ur Phencyclidine Scrn Ur Amphetamines Screen U Benzodiazepines Scrn U Oth Cocaine Metabols U Cannabinoids Screen Hepatitis A IgM Ab Negative Hep Bs Antigen Negative Hep Bs Antibody Hep B Core IgM Ab Negative Hepatitis C Antibody Reactive 05/20/18 13:00 WBC RBC Hgb Hct MCV MCH MCHC RDW Plt Count MPV PT INR pCO2 47 H pO2 74.0 L HCO3 16.4 L ABG pH 7.15 L* ABG Total CO2 17.8 L ABG O2 Saturation 95.6 ABG O2 Content 11.9 L ABG Base Excess -11.8 L ABG Hemoglobin 9.0 L ABG Carboxyhemoglobin 1.9 H POC ABG HHb (Measured) 4.3 ABG Methemoglobin 0.6 ABG O2 Capacity 12.4 L ABG Potassium Hgb O2 Saturation 93.2 L Glucose Lactate FiO2 60.0 Pressure Support Inspiratory BiPAP Sodium Potassium Chloride Carbon Dioxide Anion Gap BUN Creatinine Est GFR ( Amer) Est GFR (Non-Af Amer) POC Glucose (mg/dL) Random Glucose Calcium Phosphorus Magnesium Total Bilirubin AST ALT Alkaline Phosphatase Ammonia Total Creatine Kinase Total Protein Albumin Globulin Albumin/Globulin Ratio Procalcitonin Arterial Blood Potassium Urine Color Urine Appearance Urine pH Ur Specific [place] Urine Protein Urine Glucose (UA) Urine Ketones Urine Blood Urine Nitrate Urine Bilirubin Urine Urobilinogen Ur Leukocyte Esterase Urine RBC Urine WBC Ur Epithelial Cells Urine Bacteria Hyaline Casts Ur Random Sodium Ur Random Urea Nitrogn Urine HCG, Qual Urine Opiates Screen Urine Methadone Screen Ur Barbiturates Screen Ur Phencyclidine Scrn Ur Amphetamines Screen U Benzodiazepines Scrn U Oth Cocaine Metabols U Cannabinoids Screen Hepatitis A IgM Ab Hep Bs Antigen Hep Bs Antibody Hep B Core IgM Ab Hepatitis C Antibody
--- NOTE | 2018-05-20 16:11 | CON ---
DATE: 05/20/2018 SERVICE: Cardiology. REASON FOR THE CONSULTATION AND FOLLOWUP: Cardiac evaluation. Rule out congestive heart failure. Rule out cardiomyopathy, status post respiratory failure, HIV, AIDS. HISTORY OF PRESENT ILLNESS: This is a 37-year-old female with HIV positive, full-blown AIDS, admitted yesterday after respiratory failure. The patient is currently being intubated and Cardiology consult was called to rule out CHF, for cardiac evaluation. PAST MEDICAL HISTORY: Past history significant for HIV positive full-blown AIDS, PCP pneumonia. No prior cardiac history. PREVIOUS CARDIAC WORKUP: As follows; the patient had echocardiography done on 04/14/2018, showed ejection fraction 35%, trace aortic regurgitation, trace mitral regurgitation, mild tricuspid regurgitation, trace pericardial effusion. Right ventricle is mildly dilated. Right ventricular function is mildly reduced. Past history as mentioned above. SOCIAL HISTORY: No history of alcohol abuse. The patient is currently being intubated. CURRENT MEDICATIONS: Prior to coming here, the patient was taking prednisone, clonazepam, polyethylene glycol that is MiraLax, Protonix, ibuprofen, Colace, atovaquone that is Mepron antibiotic. REVIEW OF SYSTEMS: As per HPI. ALLERGY: ALLERGY TO LEVAQUIN, ALLERGY TO PENICILLIN, ALLERGY TO BACTRIM, ALLERGY TO AZITHROMYCIN AND FLEXERIL. PHYSICAL EXAMINATION: VITAL SIGNS: Height of the patient 5 feet , weight of the patient 127 pounds, body mass index 9 kg/m2. Rest of the vital signs; temperature afebrile, heart rate 97, blood pressure 90/59. HEENT: PERRLA. Extraocular muscles intact. NECK: Supple. No carotid bruit. No thyromegaly. CHEST: Clear to auscultation. HEART: S1 and S2 regular. ABDOMEN: Soft. EXTREMITIES: Clubbing and cyanosis negative. LABORATORY DATA: EKG shows sinus tachycardia. Blood workup as follows; WBC 25.2, hemoglobin , hematocrit 31.5, platelet count 173. Chemistry shows sodium 139, potassium 5, chloride 110, carbon dioxide 17, anion gap of 17, BUN 50, creatinine 1.6. Troponin 0.09. Chest x-ray on admission reported as no active disease. IMPRESSION: A 37-year-old female with past medical history significant for human immunodeficiency virus, full-blown acquired immune deficiency syndrome, history of Pneumocystis carinii pneumonia, admitted with respiratory failure, intubated, possibly pneumonia, history of recent cardiac workup shows biventricular failure, decreased left ventricular function, decreased right ventricular function, mitral regurgitation, tricuspid regurgitation. RECOMMENDATION: Continue to treat for HIV-related pneumonia. When the patient's blood pressure stabilizes, continue more diuresis, keep a negative fluid balance. Right now, the patient is hypotensive, is getting IV fluid. If the patient needs, consider Levophed to sustain the blood pressure above 90 because of sepsis and HIV-related pneumonia. Once the patient extubated or blood pressure stabilizes, we will start diuresis. Overall, the patient's condition is critical, long-term prognosis is guarded. Thank you, Dr. Carter for providing us the opportunity in taking care of the patient, Veronica Ruiz. Cara Veliz MD cc: Macario Carter MD
[2018-05-20] MEDS ORDERED: Primaquine 26.3 mg Tab PO ONE (16:18)
--- NOTE | 2018-05-20 16:47 | CT ---
Date of service: 05/20/2018 PROCEDURE: CT Chest, Abdomen and Pelvis without intravenous contrast HISTORY: R/O pneumonia, R/O intra-abdominal infection COMPARISON: May 19, 2018. Abdominal ultrasound. 04/13/2018 CT thorax TECHNIQUE: Unenhanced study. Neither oral nor intravenous contrast administered. Radiation dose: Total exam DLP = 498.23 mGy-cm. This CT exam was performed using one or more of the following dose reduction techniques: Automated exposure control, adjustment of the mA and/or kV according to patient size, and/or use of iterative reconstruction technique. FINDINGS: CT CHEST WITHOUT CONTRAST: LUNGS: Right middle lobe nodular infiltrates. The findings are not seen previously therefore likely infectious/ inflammatory. Consolidative changes right lower lobe likely related to new right pleural effusion MEDIASTINUM: Unremarkable. Normal caliber aorta and pulmonary arterial trunk. Normal size heart. Small pericardial effusion. Similar finding seen previously. LYMPH NODES: Unremarkable. PLEURA: New bilateral pleural effusions right larger than left. Associated consolidative changes/ atelectasis noted. These are new findings BONES: Unremarkable. OTHER FINDINGS: Satisfactory position of recently placed support apparatus including nasogastric tube and endotracheal tube. CT ABDOMEN AND PELVIS: LIVER: Unremarkable. No gross lesion or ductal dilatation. GALLBLADDER AND BILE DUCTS: Unremarkable. PANCREAS: Unremarkable. No gross lesion or ductal dilatation. SPLEEN: Top-normal spleen 6.1 x 12.6 cm. ADRENALS: Unremarkable. No mass. KIDNEYS AND URETERS: Unremarkable. No hydronephrosis. No solid mass. VASCULATURE: Unremarkable. No aortic aneurysm. BOWEL: Unremarkable. No obstruction. No gross mural thickening. APPENDIX: Normal appendix. PERITONEUM: Moderate volume and primarily pelvic ascites. These findings were not identified on recent abdominal ultrasound study. LYMPH NODES: Unremarkable. No enlarged lymph nodes. BLADDER: Sargent catheter in satisfactory position within a decompressed urinary bladder REPRODUCTIVE: Unremarkable. BONES: No acute fracture. OTHER FINDINGS: None. IMPRESSION: 1. New infiltrates/nodules right middle lobe. 2. New bilateral pleural effusions and compressive atelectasis right greater/larger than left. 3. Satisfactory position of support apparatus including endotracheal tube and nasogastric tube is well is Sargent catheter. 4. Moderate volume primarily pelvic as well as to a lesser extent intra-abdominal ascites.
--- NOTE | 2018-05-20 19:29 | CON ---
DATE: 05/20/2018 PULMONARY CONSULT REFERRING PHYSICIAN: Macario Carter MD. REASON FOR CONSULT: Respiratory failure, chronic lung disease. HISTORY OF PRESENT ILLNESS: This is a 37-year-old female, well known to me from previous admission, only seen while hospitalized, never comes in to the office. Known history of substance abuse in the past, AIDS, chronic obstructive lung disease, active smoker, methadone dependent, history of hepatitis C, recently discharged from the hospital. Comes in to ER with worsening of shortness of breath. Had a respiratory failure with CO2 retention, renal insufficiency. Admitted to Intensive Care Unit overnight. Spoke to house doctor multiple times. We are trying to ventilate through the noninvasive ventilation finally by this morning, failed. She has a persistently metabolic and respiratory acidosis requiring intubation. Presently intubated and mildly sedated. Feels better. Much more awake and alert. Requesting her methadone. No hemoptysis. No hematemesis. No hematuria. No diarrhea reported. PAST MEDICAL HISTORY: As per history of present illness. SOCIAL HISTORY: She is an active smoker. Denies any alcohol use. ALLERGIES: TO LEVAQUIN, PENICILLIN, BACTRIM, ZITHROMAX AND FLEXERIL. MEDICATIONS: Presently, she is on acyclovir 100 mg twice a day, clindamycin 900 mg every 8 hours, also in IV fentanyl, heparin 5000 units subcu every 8 hours, meropenem 1 g IV every 12 hours, Pepcid 20 mg daily, Primaquine 26.3 daily, IV fluid normal saline 100 mL/hour, Solu-Medrol 60 mg IV every 8 hours. REVIEW OF SYSTEMS: She is intubated, mildly sedated, alert, follows command. Not much ET tube secretion. No hemoptysis. No hematemesis. No hematuria. No diarrhea, leg pain, leg swelling. PHYSICAL EXAMINATION: VITAL SIGNS: Temp is 98, heart rate is 95, respiratory rate is 20, blood pressure 111/79, pulse ox 94% on ventilator with 60% oxygen. HEENT: Moist mucous membrane. ET tube . NECK: Supple. No JVD. LUNGS: Have scattered rhonchi and wheezing. HEART: S1 and S2. ABDOMEN: Soft, nontender. No organomegaly. EXTREMITIES: No edema. NEUROLOGICAL: Awake, alert. Does follow simple command. LABORATORY DATA: Shows hemoglobin 9.7, hematocrit 31.5, WBC 25,000, platelet is 173. INR 1.41. Blood gases, latest is pH 7.15, pCO2 of 47, O2 of 74. This is on assist control of 12, tidal volume 450, PEEP of 10 and 60% oxygen. Sodium 139, potassium 5, chloride 110, bicarbonate 17, BUN 50, creatinine 1.6, calcium 8.1, phosphorus 6.4, magnesium 2.1, AST 6619, ALT 3328, alk phos is 120, ammonia is 67, albumin 2.5. Sputum culture with no growth. Has a V/Q scan done, which is indeterminate probably of PE. It was only perfusion scan consistent with COPD. Chest x-ray done shows new infiltrate in the right lung base. IMPRESSION AND PLAN: Respiratory failure, has a severe obstructive lung disease, history of acquired immune deficiency syndrome, history of Pneumocystis carinii pneumonia, methadone dependent, renal insufficiency, liver injury with increased liver enzymes. Case discussed with the nursing staff. Also, spoke to respiratory therapist. We will try to cut down some of the ventilation on the ventilation by decreasing tidal volume and pressures and PEEP. Also, change IV fluid to half normal saline with 1 ampule of bicarbonate at 75 mL/hour. May give fluid boluses if needs. I agree with starting IV Solu-Medrol. Continue antibiotics as per Infectious Diseases. Gastric prophylaxis, deep venous thrombosis prophylaxis. Overall, poor prognosis. We will restart her methadone, may give methadone 120 mg through nasogastric tube and titrate fentanyl to comfort. Follow up ABG, chest x-ray, CBC, CMP in the morning. Critical care time more than 35 minutes. Thank you and we will follow with you. Cara Barajas MD
[2018-05-20] MEDS: Arformoterol 15 mcg/2 ml Inh Sol IH SCH (20:10)
[2018-05-20] MEDS: Budesonide 0.5 mg/2 ml Inhal Susp UD IH SCH (20:10)
[2018-05-20] MEDS ORDERED: NOREPINEPHRINE BIT/0.9 % NACL 4 MG/250 ML BAG IV PRN (20:35)
--- NOTE | 2018-05-20 22:58 | CP.PCM.PN ---
Subjective - Date & Time of Evaluation Date of Evaluation: 05/20/18 Time of Evaluation: 22:57 - Subjective Subjective: # 22 angiocath was inserted in left thumb. Objective - Vital Signs/Intake and Output Vital Signs (last 24 hours): Temp Pulse Resp BP Pulse Ox 98.5 F 88 16 74/50 L 96 05/19/18 21:23 05/20/18 18:00 05/20/18 07:46 05/20/18 18:00 05/20/18 18:00 Intake and Output: 05/20/18 05/21/18 18:59 06:59 Intake Total 3650 Balance 3650 - Medications Medications: Current Medications Arformoterol Tartrate (Brovana) 15 mcg IH [id number] [facility] Last Admin: 05/20/18 20:10 Dose: 15 mcg Budesonide (Pulmicort Respules) 0.5 mg IH [id number] [facility] Last Admin: 05/20/18 20:10 Dose: 0.5 mg Famotidine (Pepcid) 20 mg PO DAILY [facility] Heparin Sodium (Porcine) (Heparin) 5,000 units SC Q8H [facility] PRN Reason: Protocol Last Admin: 05/20/18 21:12 Dose: 5,000 units Clindamycin Phosphate 900 mg/ (Sodium Chloride) 106 mls @ 106 mls/hr IVPB Q8 [facility] PRN Reason: Protocol Last Admin: 05/20/18 21:43 Dose: 106 mls/hr Sodium Chloride (Sodium Chloride 0.9%) 1,000 mls @ 100 mls/hr IV .Q10H [facility] Last Admin: 05/20/18 13:47 Dose: 100 mls/hr Meropenem (Merrem Iv 1 Gm Premix) 50 mls @ 100 mls/hr IVPB Q12 [facility] PRN Reason: Protocol Last Admin: 05/20/18 21:12 Dose: 100 mls/hr Fentanyl Citrate (Fentanyl Citrate/Sodium Chloride 1 Mg/100 Ml) 1,000 mcg in 100 mls @ 2 mls/hr IV .Q24H PRN; Protocol; 20 MCG/HR PRN Reason: TITRATE PER MD ORDER Last Admin: 05/20/18 10:57 Dose: 20 mcg/hr, 2 mls/hr Acyclovir 600 mg/ Sodium (Chloride) 100 mls @ 100 mls/hr IV Q12 [facility] PRN Reason: Protocol Last Admin: 05/20/18 21:42 Dose: 100 mls/hr Sodium Bicarbonate 75 meq/ (Sodium Chloride) 1,075 mls @ 75 mls/hr IV .[id number] [facility] Last Admin: 05/20/18 21:43 Dose: 75 mls/hr NOREPINEPHRINE BIT/0.9 % NACL (Levophed 4 Mg/ 250 Ml Ns Premixed) 4 mg in 250 mls @ 15 mls/hr IV .[id number] PRN; Protocol; 4 MCG/MIN PRN Reason: TITRATE PER MD ORDER Methadone HCl (Methadone) 120 mg PO DAILY [facility] Methylprednisolone (Solu-Medrol) 60 mg IVP Q8 [facility] Last Admin: 05/20/18 21:13 Dose: 60 mg Primaquine Phosphate (Primaquine) 26.3 mg PO DAILY [facility] PRN Reason: Protocol Last Admin: 05/20/18 09:22 Dose: 26.3 mg - Labs Labs: 05/20/18 04:45 05/20/18 04:45 PT 16.3 SECONDS (9.4-12.5) H 05/20/18 04:45 INR 1.41 (0.93-1.08) H 05/20/18 04:45
--- NOTE | 2018-05-20 23:04 | CP.PCM.PN ---
Subjective - Date & Time of Evaluation Date of Evaluation: 05/20/18 Time of Evaluation: 23:03 - Subjective Subjective: Earlier today, size 7.5 ETT was placed by me. Position was confirmed by direct visualization, CO2 detector, auscultation and cxr. Objective - Vital Signs/Intake and Output Vital Signs (last 24 hours): Temp Pulse Resp BP Pulse Ox 98.5 F 88 16 74/50 L 96 05/19/18 21:23 05/20/18 18:00 05/20/18 07:46 05/20/18 18:00 05/20/18 18:00 Intake and Output: 05/20/18 05/21/18 18:59 06:59 Intake Total 3650 Balance 3650 - Medications Medications: Current Medications Arformoterol Tartrate (Brovana) 15 mcg IH [id number] [facility] Last Admin: 05/20/18 20:10 Dose: 15 mcg Budesonide (Pulmicort Respules) 0.5 mg IH [id number] [facility] Last Admin: 05/20/18 20:10 Dose: 0.5 mg Famotidine (Pepcid) 20 mg PO DAILY [facility] Heparin Sodium (Porcine) (Heparin) 5,000 units SC Q8H [facility] PRN Reason: Protocol Last Admin: 05/20/18 21:12 Dose: 5,000 units Clindamycin Phosphate 900 mg/ (Sodium Chloride) 106 mls @ 106 mls/hr IVPB Q8 [facility] PRN Reason: Protocol Last Admin: 05/20/18 21:43 Dose: 106 mls/hr Sodium Chloride (Sodium Chloride 0.9%) 1,000 mls @ 100 mls/hr IV .Q10H [facility] Last Admin: 05/20/18 13:47 Dose: 100 mls/hr Meropenem (Merrem Iv 1 Gm Premix) 50 mls @ 100 mls/hr IVPB Q12 [facility] PRN Reason: Protocol Last Admin: 05/20/18 21:12 Dose: 100 mls/hr Fentanyl Citrate (Fentanyl Citrate/Sodium Chloride 1 Mg/100 Ml) 1,000 mcg in 100 mls @ 2 mls/hr IV .Q24H PRN; Protocol; 20 MCG/HR PRN Reason: TITRATE PER MD ORDER Last Admin: 05/20/18 10:57 Dose: 20 mcg/hr, 2 mls/hr Acyclovir 600 mg/ Sodium (Chloride) 100 mls @ 100 mls/hr IV Q12 [facility] PRN Reason: Protocol Last Admin: 05/20/18 21:42 Dose: 100 mls/hr Sodium Bicarbonate 75 meq/ (Sodium Chloride) 1,075 mls @ 75 mls/hr IV .[id number] [facility] Last Admin: 05/20/18 21:43 Dose: 75 mls/hr NOREPINEPHRINE BIT/0.9 % NACL (Levophed 4 Mg/ 250 Ml Ns Premixed) 4 mg in 250 mls @ 15 mls/hr IV .[id number] PRN; Protocol; 4 MCG/MIN PRN Reason: TITRATE PER MD ORDER Methadone HCl (Methadone) 120 mg PO DAILY [facility] Methylprednisolone (Solu-Medrol) 60 mg IVP Q8 [facility] Last Admin: 05/20/18 21:13 Dose: 60 mg Primaquine Phosphate (Primaquine) 26.3 mg PO DAILY [facility] PRN Reason: Protocol Last Admin: 05/20/18 09:22 Dose: 26.3 mg - Labs Labs: 05/20/18 04:45 05/20/18 04:45 PT 16.3 SECONDS (9.4-12.5) H 05/20/18 04:45 INR 1.41 (0.93-1.08) H 05/20/18 04:45
[2018-05-21 05:04] LABS: HB CORE AB (IGM) Non Reactive (Non Reactive)
[2018-05-21] MEDS: MethylPREDNISolone 40 mg Vial IVP SCH ×2 (05:15→20:07)
[2018-05-21 05:45] LABS: BASO # 0.02 K/mm3 (0.0-2.0); BASO % 0.2 % (0.0-3.0); GRAN # 9.32 (1.4-6.5); GRAN % 88.9 % (50.0-68.0); HEMOGLOBIN 9.7 g/dL (12.0-16.0); LYMPH # 0.8 (1.2-3.4); LYMPH % 7.2 % (22.0-35.0); MEAN CELL VOLUME 82.2 fl (80.0-105.0); MEAN CORPUSCULAR HEMOGLOBIN 25.8 pg (25.0-35.0); MEAN CORPUSCULAR HGB CONC 31.4 g/dl (31.0-37.0); MEAN PLATELET VOLUME 10.5 fl (7.0-11.0); MONO # 0.4 (0.1-0.6); MONO % 3.7 % (1.0-6.0); RBC 3.76 10^6/uL (3.5-6.1); RED CELL DISTRIBUTION WIDTH 16.1 % (11.5-14.5); WHITE BLOOD COUNT 10.5 10^3/ul (4.5-11.0)
[2018-05-21 05:54] LABS: ALB/GLOB RATIO 0.6 (1.1-1.8); ALBUMIN 2.1 g/dL (3.0-4.8); BLOOD UREA NITROGEN 70 mg/dL (7-21); CALCIUM 7.8 mg/dL (8.4-10.5); GFR AFRICAN-AMERICAN 34; GFR NON-AFRICAN AMERICAN 28; HDL CHOLESTEROL 20 mg/dL (29-60)
[2018-05-21 06:14] LABS: ALT/SGPT 1872 U/L (7-56); AST/SGOT 2651 U/L (14-36); LDL CHOLESTEROL < 30 mg/dL (0-129)
[2018-05-21 06:47] LABS: ARTERIAL BLOOD GAS HCO3 17.5 mmol/L (21-28); ARTERIAL BLOOD GAS O2 CAPACITY 13.8 mL/dl (16-24); ARTERIAL BLOOD GAS O2 CONTENT 13.6 ML/dl (15-23); ARTERIAL BLOOD GAS O2 SAT 98.3 % (95-98); ARTERIAL BLOOD GAS PCO2 40 mm/Hg (35-45); ARTERIAL BLOOD GAS PH 7.25 (7.35-7.45); ARTERIAL BLOOD GAS TCO2 18.7 mmol.L (22-28)
[2018-05-21] MEDS: Arformoterol 15 mcg/2 ml Inh Sol IH SCH ×2 (07:29→20:30)
[2018-05-21] MEDS: Budesonide 0.5 mg/2 ml Inhal Susp UD IH SCH ×2 (07:29→20:30)
--- NOTE | 2018-05-21 08:00 | PN ---
DATE: 05/21/2018 SUBJECTIVE: The patient is in bed, in no acute distress, nontoxic. The patient remains intubated on the ventilator in the ICU. No fever has been documented. PHYSICAL EXAMINATION: VITAL SIGNS: Temperature is 99, T-max is 100, blood pressure is 120/70, respiratory rate on a vent, heart rate of 100. HEENT: Examination of HEENT is ET-tube in place. NECK: Supple. LUNGS: Have decreased breath sounds. HEART: Normal S1, S2. ABDOMEN: Soft. LABORATORY DATA: Laboratory examination reveals a white count of 10,000, hemoglobin of 9, platelets of 202 and the chemistries reveals a BUN of 70, creatinine of 2. LFTs are elevated. Procalcitonin 0.33. Urinalysis is noted and serology is pending. Microbiology reveals blood cultures are negative. Sputum cultures are pending. Medications revealed the patient to be on clindamycin, meropenem, primaquine and acyclovir. ASSESSMENT AND PLAN: A 37-year-old female, known to me from previous admissions who has septic shock and severe sepsis with ventilatory failure, respiratory failure, on a vent with acute kidney failure and acute fulminant hepatitis, probable Pneumocystis pneumonia, end-stage acquired immune deficiency syndrome, noncompliant to medications, underlying chronic obstructive lung disease, history of intravenous drug abuse, history of hepatitis C, history of chronic back pain. Overall prognosis is quite poor for this patient. She notoriously has been noncompliant to her medications consistently. Cheikh Chou MD
--- NOTE | 2018-05-21 09:37 | CP.PCM.PN ---
Subjective - Date & Time of Evaluation Date of Evaluation: 05/21/18 Time of Evaluation: 07:40 - Subjective Subjective: Patient seen and examined on rounds, labs and imaging reviewed. Pt was placed on pressure support for 45 minutes, subsequently successfully extubated. Objective - Vital Signs/Intake and Output Vital Signs (last 24 hours): Temp Pulse Resp BP Pulse Ox 99.1 F 96 H 16 122/77 98 05/21/18 04:00 05/21/18 06:10 05/21/18 07:30 05/21/18 06:00 05/21/18 07:30 Intake and Output: 05/21/18 05/21/18 06:59 18:59 Intake Total 1774 Output Total 400 Balance 1374 - Medications Medications: Current Medications Arformoterol Tartrate (Brovana) 15 mcg IH [id number] [facility] Last Admin: 05/21/18 07:29 Dose: 15 mcg Budesonide (Pulmicort Respules) 0.5 mg IH [id number] [facility] Last Admin: 05/21/18 07:29 Dose: 0.5 mg Famotidine (Pepcid) 20 mg PO DAILY [facility] Heparin Sodium (Porcine) (Heparin) 5,000 units SC Q8H [facility] PRN Reason: Protocol Last Admin: 05/21/18 05:15 Dose: 5,000 units Clindamycin Phosphate 900 mg/ (Sodium Chloride) 106 mls @ 106 mls/hr IVPB Q8 [facility] PRN Reason: Protocol Last Admin: 05/21/18 05:16 Dose: 106 mls/hr Meropenem (Merrem Iv 1 Gm Premix) 50 mls @ 100 mls/hr IVPB Q12 [facility] PRN Reason: Protocol Last Admin: 05/20/18 21:12 Dose: 100 mls/hr Fentanyl Citrate (Fentanyl Citrate/Sodium Chloride 1 Mg/100 Ml) 1,000 mcg in 100 mls @ 2 mls/hr IV .Q24H PRN; Protocol; 20 MCG/HR PRN Reason: TITRATE PER MD ORDER Last Titration: 05/21/18 04:00 Dose: 20 mcg/hr, 2 mls/hr Acyclovir 600 mg/ Sodium (Chloride) 100 mls @ 100 mls/hr IV Q12 [facility] PRN Reason: Protocol Last Admin: 05/20/18 21:42 Dose: 100 mls/hr Sodium Bicarbonate 75 meq/ (Sodium Chloride) 1,075 mls @ 75 mls/hr IV .[id number] [facility] Last Admin: 05/20/18 21:43 Dose: 75 mls/hr Methadone HCl (Methadone) 120 mg PO DAILY [facility] Methylprednisolone (Solu-Medrol) 60 mg IVP Q8 [facility] Last Admin: 05/21/18 05:15 Dose: 60 mg Primaquine Phosphate (Primaquine) 26.3 mg PO DAILY [facility] PRN Reason: Protocol Last Admin: 05/20/18 09:22 Dose: 26.3 mg - Labs Labs: 05/21/18 05:30 05/21/18 05:30 PT 16.3 SECONDS (9.4-12.5) H 05/20/18 04:45 INR 1.41 (0.93-1.08) H 05/20/18 04:45 - Constitutional Appears: Non-toxic, No Acute Distress - Head Exam Head Exam: NORMAL INSPECTION - Eye Exam Eye Exam: Normal appearance - ENT Exam ENT Exam: Mucous Membranes Moist - Respiratory Exam Respiratory Exam: Clear to Ausculation Bilateral, NORMAL BREATHING PATTERN - Cardiovascular Exam Cardiovascular Exam: REGULAR RHYTHM, +S1, +S2 - GI/Abdominal Exam GI & Abdominal Exam: Soft, Normal Bowel Sounds - Extremities Exam Extremities Exam: Normal Inspection - Neurological Exam Neurological Exam: Alert, Awake, Oriented x3 - Psychiatric Exam Psychiatric exam: Anxious - Skin Skin Exam: Normal Color, Warm Assessment and Plan - Assessment and Plan (Free Text) Assessment: Patient is 37yo female with PMhx of HIV/AIDS, last CD4 count <20, non compliance with meds, PCP PNA, Hep C, hx of IVDU, [place] [facility] [place] presents for fever, chills, cough, and SOB. In the ER noted to have hypercapnia, hypoxia, and elevated LFTs. Placed on BIPAP initially, with no improvement, subsequently intubated. This morning, placed on pressure support for 45 minutes, did well, RSBI 30-40, Awake, alert, subsequently extubated to 2LNC Labs, imaging, notes reviewed. Currently afebrile, BP stable, OFF vasopressors. ID following, antibiotics recs appreciated GI following Hepatology team at [facility] spoken to, no acute indication for liver transplant, likely combination of ischemic/viral hepaptitis given normal Tbilli, normal Tylenol levels. LFTs down trending, improving. TBilli normal Completed a course of NAC Adequate BP support provided with IVF Abx XRay no free air CT C/A/P reviewed and noted. PNA, PCP SOB Fever Severe Sepsis elevated LFTs HIV/AIDs Hx of IVDU Liver failure without coma Recommend: - cont with supp o2 as needed - duonebs PRN - taper Solumedrol 40mg Q12hr IV - broad spectrum abx, as per ID - PCP tx Primaquin, Clinda - ID follow up - Panculture Ucx, BCx, Procal - Renal eval - monitor LFTs, INR, TBilli - follow up GI - IV fluids - Renal sono - GI ppx - DVT ppx - monitor in MICU critical care time 30 minutes
[2018-05-21] MEDS: Meropenem IV 1 gm in NS 50 ML IVPB SCH ×2 (10:00→21:31)
[2018-05-21] MEDS ORDERED: MethylPREDNISolone 40 mg Vial IVP SCH (10:00)
[2018-05-21 10:21] LABS: CERULOPLASMIN 44 mg/dL (18-53)
--- NOTE | 2018-05-21 10:36 | RAD ---
Date of service: 05/20/2018 HISTORY: intubated COMPARISON: May 20, 2018. 06:51. May 20, 2018. CT thorax abdomen pelvis. FINDINGS: LUNGS: Stable consolidative changes particularly affecting the right lung. PLEURA: No significant pleural effusion identified, no pneumothorax apparent. CARDIOVASCULAR: No radiographic findings to suggest acute or significant cardiovascular disease. OSSEOUS STRUCTURES: No significant abnormalities. VISUALIZED UPPER ABDOMEN: Normal. OTHER FINDINGS: Stable, satisfactory position ventilatory, vascular and nasogastric apparatus. IMPRESSION: No significant interval change compared to the prior examination(s).
--- NOTE | 2018-05-21 10:36 | RAD ---
Date of service: 05/21/2018 HISTORY: Multiple serial examinations preceding the most recent study: May 20, 2018. 19:05. COMPARISON: No prior. FINDINGS: LUNGS: Stable infiltrates PLEURA: No significant pleural effusion identified, no pneumothorax apparent. CARDIOVASCULAR: Normal. OSSEOUS STRUCTURES: No significant abnormalities. VISUALIZED UPPER ABDOMEN: Normal. OTHER FINDINGS: Stable, satisfactory position ventilatory, and nasogastric apparatus. IMPRESSION: Stable infiltrates. Stable position of endotracheal tube and nasogastric tube.
--- NOTE | 2018-05-21 11:37 | CP.PCM.PN ---
<Negra Medina - Last Filed: 05/21/18 11:37> Subjective - Date & Time of Evaluation Date of Evaluation: 05/21/18 Time of Evaluation: 07:00 - Subjective Subjective: PGY5 GI Follow-up No overnight events Repir status improving overnight still intubated ROS: could not be conducted due to intubation Objective - Vital Signs/Intake and Output Vital Signs (last 24 hours): Temp Pulse Resp BP Pulse Ox 99.1 F 96 H 16 122/77 98 05/21/18 04:00 05/21/18 06:10 05/21/18 07:30 05/21/18 06:00 05/21/18 07:30 Intake and Output: 05/21/18 05/21/18 06:59 18:59 Intake Total 1774 Output Total 400 Balance 1374 - Medications Medications: Current Medications Arformoterol Tartrate (Brovana) 15 mcg IH [id number] [facility] Last Admin: 05/21/18 07:29 Dose: 15 mcg Budesonide (Pulmicort Respules) 0.5 mg IH [id number] [facility] Last Admin: 05/21/18 07:29 Dose: 0.5 mg Famotidine (Pepcid) 20 mg PO DAILY [facility] Heparin Sodium (Porcine) (Heparin) 5,000 units SC Q8H [facility] PRN Reason: Protocol Last Admin: 05/21/18 05:15 Dose: 5,000 units Clindamycin Phosphate 900 mg/ (Sodium Chloride) 106 mls @ 106 mls/hr IVPB Q8 [facility] PRN Reason: Protocol Last Admin: 05/21/18 05:16 Dose: 106 mls/hr Meropenem (Merrem Iv 1 Gm Premix) 50 mls @ 100 mls/hr IVPB Q12 [facility] PRN Reason: Protocol Last Admin: 05/20/18 21:12 Dose: 100 mls/hr Fentanyl Citrate (Fentanyl Citrate/Sodium Chloride 1 Mg/100 Ml) 1,000 mcg in 100 mls @ 2 mls/hr IV .Q24H PRN; Protocol; 20 MCG/HR PRN Reason: TITRATE PER MD ORDER Last Titration: 05/21/18 04:00 Dose: 20 mcg/hr, 2 mls/hr Acyclovir 600 mg/ Sodium (Chloride) 100 mls @ 100 mls/hr IV Q12 [facility] PRN Reason: Protocol Last Admin: 05/20/18 21:42 Dose: 100 mls/hr Sodium Bicarbonate 75 meq/ (Sodium Chloride) 1,075 mls @ 75 mls/hr IV .[id number] [facility] Last Admin: 05/20/18 21:43 Dose: 75 mls/hr Methadone HCl (Methadone) 120 mg PO DAILY [facility] Methylprednisolone (Solu-Medrol) 40 mg IVP Q12 [facility] Primaquine Phosphate (Primaquine) 26.3 mg PO DAILY [facility] PRN Reason: Protocol Last Admin: 05/20/18 09:22 Dose: 26.3 mg - Labs Labs: 05/21/18 05:30 05/21/18 05:30 PT 16.3 SECONDS (9.4-12.5) H 05/20/18 04:45 INR 1.41 (0.93-1.08) H 05/20/18 04:45 - Constitutional Appears: Well, No Acute Distress - Head Exam Head Exam: ATRAUMATIC, NORMOCEPHALIC - Eye Exam Eye Exam: Normal appearance - ENT Exam ENT Exam: Mucous Membranes Moist, Normal Exam - Neck Exam Neck Exam: Normal Inspection - Respiratory Exam Respiratory Exam: Clear to Ausculation Bilateral, NORMAL BREATHING PATTERN. absent: Prolonged Expiratory Phase, Rales, Rhonchi, Wheezes, Respiratory Distress - Cardiovascular Exam Cardiovascular Exam: REGULAR RHYTHM, +S1, +S2 - GI/Abdominal Exam GI & Abdominal Exam: Distended, Soft, Normal Bowel Sounds. absent: Firm, Guarding, Rigid, Tenderness, Organomegaly - Extremities Exam Extremities Exam: absent: Joint Swelling, Pedal Edema - Neurological Exam Neurological Exam: Altered, Awake - Psychiatric Exam Additional comments: cannot assess 2/2 intubation - Skin Skin Exam: Dry, Intact, Normal Color, Warm Assessment and Plan - Assessment and Plan (Free Text) Assessment: This is a 37 yo F with PMH of HIV (medication non-compliance), PCP pneumonia, neck abscess, and Hepatitis C who represented to [facility] with complaint of shortness of breath, fever, and non-productive cough, later developing hypercapnic respiratory failure and requiring intubation. Elevated transaminases etiology likely Ischemic hepatitis Ischemic likely 2/2 PNA VDRF, will likely get extubated today Plan: Ddx: acetaminophen tox vs shock liver vs acute viral hepatitis -Abd US obtained notable for stable Hepatomegaly/hepatic steatosis, Mild splenomegaly -Abd X-ray obtained due to abd distension and septic picture, want to rule out acute intestinal perf; negative for free air under diaphragm -CXR notable for R lower infiltrate, Pending CT chest/abd/pelvis w/o contrast -known hx Hep C, not compliant with medications; hepatitis panel positive for Hep B surface antigen as well, pending Hep B surface antibody -received 2x doses of NAC, but acetaminophen level negative, no further doses indicated -Transaminases improving -continue to maintain MAP >65 -continue IV fluid resusitation -abx as per ID D/W Dr. Centeno <Anne Centeno V - Last Filed: 05/21/18 20:44> Objective - Vital Signs/Intake and Output Vital Signs (last 24 hours): Temp Pulse Resp BP Pulse Ox 99.1 F 107 H 19 120/87 98 05/21/18 04:00 05/21/18 13:07 05/21/18 13:07 05/21/18 13:00 05/21/18 07:30 - Medications Medications: Current Medications Arformoterol Tartrate (Brovana) 15 mcg IH [id number] [facility] Last Admin: 05/21/18 20:30 Dose: 15 mcg Budesonide (Pulmicort Respules) 0.5 mg IH [id number] [facility] Last Admin: 05/21/18 20:30 Dose: 0.5 mg Famotidine (Pepcid) 20 mg PO DAILY [facility] Last Admin: 05/21/18 12:13 Dose: 20 mg Heparin Sodium (Porcine) (Heparin) 5,000 units SC Q8 [facility] PRN Reason: Protocol Last Admin: 05/21/18 15:00 Dose: 5,000 units Clindamycin Phosphate 900 mg/ (Sodium Chloride) 106 mls @ 106 mls/hr IVPB Q8 [facility] PRN Reason: Protocol Last Admin: 05/21/18 15:00 Dose: 106 mls/hr Meropenem (Merrem Iv 1 Gm Premix) 50 mls @ 100 mls/hr IVPB Q12 [facility] PRN Reason: Protocol Last Admin: 05/21/18 10:00 Dose: 100 mls/hr Fentanyl Citrate (Fentanyl Citrate/Sodium Chloride 1 Mg/100 Ml) 1,000 mcg in 100 mls @ 2 mls/hr IV .Q24H PRN; Protocol; 20 MCG/HR PRN Reason: TITRATE PER MD ORDER Last Titration: 05/21/18 04:00 Dose: 20 mcg/hr, 2 mls/hr Acyclovir 600 mg/ Sodium (Chloride) 100 mls @ 100 mls/hr IV Q12 [facility] PRN Reason: Protocol Last Admin: 05/21/18 10:00 Dose: 100 mls/hr Sodium Chloride (Sodium Chloride 0.45%) 1,000 mls @ 75 mls/hr IV .[id number] [facility] Last Admin: 05/21/18 20:26 Dose: 75 mls/hr Methadone HCl (Methadone) 120 mg PO DAILY [facility] Last Admin: 05/21/18 12:11 Dose: 120 mg Methylprednisolone (Solu-Medrol) 40 mg IVP 0600,1800 [facility] Last Admin: 05/21/18 20:07 Dose: 40 mg Primaquine Phosphate (Primaquine) 26.3 mg PO DAILY [facility] PRN Reason: Protocol Last Admin: 05/21/18 12:14 Dose: 26.3 mg - Labs Labs: 05/21/18 05:30 05/21/18 05:30 PT 16.3 SECONDS (9.4-12.5) H 05/20/18 04:45 INR 1.41 (0.93-1.08) H 05/20/18 04:45 Attending/Attestation - Attestation I have personally seen and examined this patient.: Yes I have fully participated in the care of the patient.: Yes I have reviewed all pertinent clinical information, including history, physical exam and plan: Yes Notes (Text): This is an addendum to GI progress report dictated by the GI Fellow.The patient was seen and examined earlier. Medical records, lab studies, imagings were reviewed. Last 24 hours events reviewed. Agreed with the above treatment plan as outlined in GI Fellow 's notes the with the addition of the following SHOCK LIVER Follow-up PT/INR Continue antibiotics as per ID appears more comfortable Plan to be extubated LFT shows downward trend CT was reviewed No acute intra abdominal finding to account for the sepsis obvious
[2018-05-21] MEDS: Primaquine 26.3 mg Tab PO SCH (12:14)
--- NOTE | 2018-05-21 14:16 | PN ---
DATE: 05/21/2018 LOCATION: The patient in CCU, bed 129 - 6. REASON FOR CONSULTATION AND FOLLOWUP: Respiratory failure, HIV, rule out CHF, rule out cardiomyopathy. SUBJECTIVE: The patient still on respirator, was admitted with respiratory failure and known to have HIV. PHYSICAL EXAMINATION: VITAL SIGNS: On examination, heart rate 96, temperature 99.1, blood pressure 122/77, respiratory rate 16 per minute. HEENT: Head is normocephalic. Eyes: Pupils normal. Conjunctivae slightly pale. NECK: JVP low. Carotids equal. THORAX: AP diameter normal. LUNGS: Scattered rales and wheezing. CARDIOVASCULAR: S1 and S2. ABDOMEN: Soft. No tenderness. No organomegaly. EXTREMITIES: No clubbing. No cyanosis. LABORATORY DATA: WBC 10.5, hemoglobin 9.7, hematocrit 30.9, platelet 202. Sodium 140, potassium 4.8, BUN 70, creatinine 2, calcium 7.8, phosphorus 6, magnesium 2.1. AST 2651, ALT 1872. Total protein 5.7, albumin 2.1. Cholesterol is 80, LDL less than 30, HDL 20. Chest x-ray: Infiltrates. DIAGNOSES: Respiratory failure, human immunodeficiency virus, pneumonia, recent cardiac workup showed biventricular failure, decreased left ventricular function, decreased right ventricular function, mitral regurgitation, tricuspid regurgitation. PLAN: Continue to treat pneumonia in HIV. If the patient gets hypotension, then vasopressor medicine can be started. Plan is to continue HIV-related pneumonia. The patient is on clindamycin 900 mg IV every 8 hours, heparin 5000 units subcu every 8 hours, meropenem 50 mL IV every 12 hours. The patient is also on methadone program 120 p.o. daily, famotidine 20 daily. Continue HIV-related medications. The patient is also on acyclovir 600 mg IV every 12 hours. We will continue present therapy and we will follow with you. Cara Umaña MD
--- NOTE | 2018-05-21 16:01 | CP.PCM.PN ---
Subjective - Date & Time of Evaluation Date of Evaluation: 05/21/18 Time of Evaluation: 09:30 - Subjective Subjective: Nephrology Consultation Note: Assessment: critical Acute Kidney Injury (N17.9) likely due to sepsis/hypotension and pre-renal state /dehydration as evident by concentrated urine abnormal LFT acute hypercapnic respi failure combined respi and metabolic acidosis Hyperphosphatemia HIV/AIDS (CD 4 count <20) non compliant to meds, hx of PCP pneumonia, IVDA, chronic Hep C, COPD Plan No acute need for renal replacement therapy at this time. maintain hemodynamics stable. avoid hypotension. Patient not on ACEI/ARB due to BERNICE Monitor Input/Output, daily weights and renal function with basic metabolic panel continue with IVF. agree with bicarb drip as Hco3 as 75 meq in 0.45% saline to keep IVF as isotonic ID, GI following Dose meds/antibiotics for reduced GFR. Avoid fleets enema/magnesium based laxatives. Avoid nephrotoxins/NSAIDs/ iodinated contrast (unless needed emergently) Glycemic control Further work up/management as per primary team Thanks for allowing me to participate in care of your patient. Will follow patient with you. Please call if any Qs. had d/w team Dr Sesar Paez Office: [phone] Chief Complaint; unable to obtain reason for consult: BERNICE source of Info; EMR HPI: Pt is a 37 F with hx of HIV/AIDS (CD 4 count <20) non compliant to meds, hx of PCP pneumonia, IVDA, chronic Hep C, COPD presented with complaints of SOB , cough and fever, found to have sepsis, acute respi failure s/p intubation 05/19 also with BERNICE and abnormal LFT. renal consult for BERNICE management No recent iodinated contrast exposure. Noted obvious episodes of low BP. ROS: extubated. pt feels better. SOB better Physical Examination: General Appearance: Comfortable, in no acute respiratory distress. Vitals reviewed and noted as below Head; Atraumatic, normocephalic ENT: normal mucosa EYES: Pupils are equal, round and reactive to light accommodation. Eye muscles and extraocular movement intact. Sclera is anicteric. Neck; supple no lymphadenopathy, no thyromegaly or bruit Lungs: Normal respiratory rate/effort. Breath sounds bilateral equal and with few exp wheeze Heart: Normal rate. s1s2 normal. No rub or gallop. Extremities: no edema. No varicose veins Neurological: Patient is sleepy but arousable Skin: Warm and dry. Normal turgor. No rash. Palpitation: Normal elasticity for age Abdomen: Abdomen is soft. Bowel sounds +. There is no abdominal tenderness, no guarding/rigidity no organomegaly. appears distended Psych: unable MSK: no joint tenderness or swelling. Digits and nails normal, no deformity : kidney or bladder not palpable. has fuentes Labs/imaging reviewed. Past medical history, past surgical history, family history, social history, allergy reviewed and noted as below Family hx: no hx of CKD. Rest non-contributory work up: renal imaging unremarkable UA SG >1.030 Na 9 neg for ketone/blood CK normal Objective - Vital Signs/Intake and Output Vital Signs (last 24 hours): Temp Pulse Resp BP Pulse Ox 99.1 F 107 H 19 120/87 98 05/21/18 04:00 05/21/18 13:07 05/21/18 13:07 05/21/18 13:00 05/21/18 07:30 Intake and Output: 05/21/18 05/21/18 06:59 18:59 Intake Total 1774 Output Total 400 Balance 1374 - Medications Medications: Current Medications Arformoterol Tartrate (Brovana) 15 mcg IH [id number] [facility] Last Admin: 05/21/18 07:29 Dose: 15 mcg Budesonide (Pulmicort Respules) 0.5 mg IH [id number] [facility] Last Admin: 05/21/18 07:29 Dose: 0.5 mg Famotidine (Pepcid) 20 mg PO DAILY [facility] Last Admin: 05/21/18 12:13 Dose: 20 mg Heparin Sodium (Porcine) (Heparin) 5,000 units SC Q8 [facility] PRN Reason: Protocol Last Admin: 05/21/18 15:00 Dose: 5,000 units Clindamycin Phosphate 900 mg/ (Sodium Chloride) 106 mls @ 106 mls/hr IVPB Q8 [facility] PRN Reason: Protocol Last Admin: 05/21/18 15:00 Dose: 106 mls/hr Meropenem (Merrem Iv 1 Gm Premix) 50 mls @ 100 mls/hr IVPB Q12 [facility] PRN Reason: Protocol Last Admin: 05/21/18 10:00 Dose: 100 mls/hr Fentanyl Citrate (Fentanyl Citrate/Sodium Chloride 1 Mg/100 Ml) 1,000 mcg in 100 mls @ 2 mls/hr IV .Q24H PRN; Protocol; 20 MCG/HR PRN Reason: TITRATE PER MD ORDER Last Titration: 05/21/18 04:00 Dose: 20 mcg/hr, 2 mls/hr Acyclovir 600 mg/ Sodium (Chloride) 100 mls @ 100 mls/hr IV Q12 [facility] PRN Reason: Protocol Last Admin: 05/21/18 10:00 Dose: 100 mls/hr Sodium Bicarbonate 75 meq/ (Sodium Chloride) 1,075 mls @ 75 mls/hr IV .[id number] [facility] Last Admin: 05/20/18 21:43 Dose: 75 mls/hr Methadone HCl (Methadone) 120 mg PO DAILY [facility] Last Admin: 05/21/18 12:11 Dose: 120 mg Methylprednisolone (Solu-Medrol) 40 mg IVP 0600,1800 [facility] Primaquine Phosphate (Primaquine) 26.3 mg PO DAILY [facility] PRN Reason: Protocol Last Admin: 05/21/18 12:14 Dose: 26.3 mg - Labs Labs: 05/21/18 05:30 05/21/18 05:30 PT 16.3 SECONDS (9.4-12.5) H 05/20/18 04:45 INR 1.41 (0.93-1.08) H 05/20/18 04:45
--- NOTE | 2018-05-21 20:17 | HP ---
DATE OF EXAM: 05/20/2018 The patient came in with acute respiratory distress. HISTORY OF PRESENT ILLNESS: A 37-year-old female, poorly compliant patient with HIV, another health issues, who was recently discharged, maybe 3 or more weeks ago for PCP pneumonia and was discharged in stable conditions. Came in again with kind of short of breath, coughing, wheezing, tired, and patient currently has a history of drug addiction, on methadone and also she does take Klonopin p.r.n. for anxiety per psychiatrist. The patient denied any fever, any chest pain; however, her breathing seems getting worse over one week and noted improving. PAST MEDICAL HISTORY: As I mentioned: 1. AIDS, poorly compliant with medications and with followup. 2. Chronic hepatitis C with high liver function test. 3. Cardiomyopathy with ejection fractions in the 25% to 30%, could be related to HIV. 4. Possible pulmonary hypertension. 5. Drug abuse, on methadone. She does take 150. I tried to decrease to 140, but she refused. 6. COPD. 7. History of PCP pneumonia. 8. Chronic osteoarthritis. 9. History of spine granulomatous disease that was acute and treated. 10. History of mycobacterium avium intracellulare. ALLERGIES: THE PATIENT IS ALLERGIC TO MULTIPLE MEDICATIONS INCLUDING SULFA DRUGS, TRIMETHOPRIM AND SULFAMETHOXAZOLE, LEVOFLOXACIN, PENICILLIN, AZITHROMYCIN, AND FLEXERIL. SOCIAL HISTORY: She lives with her kids. She has two, a son and a daughter. Daughter is in high school. Positive for smoking. She is a heavy smoker, may have more than 10 cigarettes a day. Other stuff is alcohol abuse and history of drug abuse. She is on methadone right now. Alcohol use: Yes. She has been using that. Smoking: Heavy smoker more than 10 cigarettes a day. REVIEW OF SYSTEMS: As in the present illness. She does get short of breath. She does have dyspnea, arthritis, and weakness. She also complained of feeling tiredness. MEDICATIONS: She is noncompliant with any HIV medications. She is not on any antiretroviral medication, which she has been recommended to go to HIV clinic. Her home medications are clonazepam 0.5 mg b.i.d. and 0.5 at bedtime, MiraLax, Protonix 40 mg daily, mirtazapine 30 mg at bedtime, Pepcid 40 daily, Colace b.i.d., Mepron 750 b.i.d., nebulizer treatments. PHYSICAL EXAMINATION: GENERAL: Patient was seen in the ICU, intubated on 60%, saturating 97%. She seems sedated with fentanyl drip. VITAL SIGNS: She is afebrile. Temperature 97, heart rate 91, blood pressure runs in the low side 110 and 109/62, and saturating 94%. HEAD AND NECK: No JVD. No thyromegaly. CHEST: There is mild wheezing bilaterally. CARDIAC: First sound and second sound normal. Tachycardic. ABDOMEN: Soft, scaphoid, and nontender. EXTREMITIES: No edema. NEUROLOGIC: Patient is heavily sedated fentanyl patch. LABORATORY STUDIES: On 05/20/2018: White count 25,000, hemoglobin 9.7, hematocrit 31.5, and platelets of 173. Initial white count was 10.6. Chemistry shows sodium 139, potassium 5, chloride 110, bicarbonate 17. BUN 50, creatinine 1.6. Blood sugar 138. Calcium 8.1, phosphorus 6.4. Total bili 0.1, AST 6619, ALT 3328, alk phos 120. Total CPK 109. Also, patient has a chest x-ray with chest congestion. She has also V/Q scan that shows indeterminate probability. Patient has previous CT angiogram more than two times in the past and was negative. Venous Doppler multiple times, which was negative. She never had pulmonary embolism. IMPRESSION AND PLAN: 1. 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 Patient is currently intubated, oxygenated, and will monitor her vent. She is currently on intravenous antibiotics with Infectious Disease and Pulmonary consult. SINCE SHE IS ALLERGIC TO LOT OF MEDICATIONS, we have to get her on meropenem 1 g every 12 hours and she also get acyclovir 600 IV b.i.d., clindamycin 900 IV every 8 hours, and Primaquine 26.3 p.o. daily. 2. Chronic obstructive pulmonary disease exacerbation. Continue IV steroid, 60 mg IV every 8 hours. Follow up with Pulmonary consult. Inhaled and IV bronchodilator will be continued. She is getting Pulmicort 0.5 every 12 hours and Brovana. 3. History of drug abuse. She is on methadone, we will resume that. 4. Advanced human immunodeficiency virus. Patient needs to follow up with the HIV clinic as outpatient. 5. Cardiomyopathy. Patient also advised to see tertiary care center for human immunodeficiency virus related cardiomyopathy and she may need further workup including cardiac catheterization. We will get Dr. Veliz. Presumably, the patient may benefit from IV milrinone. 6. Hepatitis. Patient has hepatitis C. We will order some blood work, GI consult with Dr. Centeno. Patient did have abnormal liver function test in the past, just raised up and came down to improve over time. We will monitor liver function test. We will follow up with Dr. Centeno. 7. Acute renal failure, creatinine of 1.6. Doubt acute renal failure maybe cardiorenal, maybe drug related. However, improving cardiac output will help kidney function. Continue current therapy. Monitor blood pressure. We will speak with the ICU team. Patient has poor prognosis with multiple organ problems; pulmonary, cardiac, renal, and liver. She has multiorgan disease and we will continue current therapy. Macario Carter MD
[2018-05-21] MEDS: Sodium Chloride 0.45% 1,000 ML IV SCH (20:26)
--- NOTE | 2018-05-21 20:27 | PN ---
DATE: 05/21/2018 PULMONARY PROGRESS NOTE REFERRING PHYSICIAN: Macario Carter MD SUBJECTIVE: She is lying in the Intensive Care Unit, extubated on supplemental oxygen. Presently extubated. Still having mild cough and shortness of breath. No nausea, no vomiting, no diarrhea. No leg pain or leg swelling. OBJECTIVE: GENERAL: In no acute distress. VITAL SIGNS: Temperature is 98, heart rate is 107, respiratory rate is 20, blood pressure 120/87, and pulse ox 96% on nasal cannula. HEENT: Moist mucous membranes. No ulcer or oral thrush noted. NECK: Supple. No JVD. LUNGS: Prolonged expiratory phase with few rhonchi. HEART: S1 and S2. ABDOMEN: Soft, nontender, and nondistended. EXTREMITIES: Trace edema. NEUROLOGIC: Awake, alert, and follow simple command. MEDICATIONS: She is on acyclovir at 600 mg twice a day, Brovana inhaled twice a day, clindamycin 900 mg every 8 hours, heparin 5000 units subcutaneously every 8 hours, meropenem 1 g IV every 12 hours, methadone 120 mg daily, Pepcid 20 mg daily, , 1.29 daily, Pulmicort inhaled twice a day, IV fluid half-normal saline 75 mL per hour, Solu-Medrol 40 mg every 12 hours. LABORATORY DATA: Shows hemoglobin 9.7, hematocrit 30.9, WBC 10.5, and platelets 202. Blood gases show pH 7.25, pCO2 of 40, O2 is 94. Sodium 140, potassium 4.8, chloride 110, bicarbonate 21. BUN 70, creatinine 2. Glucose 98. Calcium is 7.8, phosphorus 6, and magnesium 2.1. AST 2651, ALT 1872, alkaline phosphatase is 110. Albumin is 2.1. Cholesterol is 80. TSH 0.26. Microbiology: Blood culture, urine culture, and sputum culture; there is no growth. Chest x-ray done this afternoon shows stable endotracheal and nasogastric tube. Since then, the patient has been extubated. IMPRESSION AND PLAN: Respiratory failure, presently extubated; still has metabolic acidosis; renal failure; acquired immunodeficiency syndrome; history of Pneumocystis carinii pneumonia; methadone dependent; elevated liver enzyme. Spoke to nursing staff. IV fluid change to half-normal saline. Bicarbonate is discontinued. Continue antibiotics. Continue IV and inhaled bronchodilator. Nephrology consult. Gastric and deep venous thrombosis prophylaxes. Follow up labs in the morning. Thank you and we will follow with you. Cara Barajas MD
[2018-05-22] MEDS: Sodium Chloride 0.45% 1,000 ML IV SCH (05:25)
[2018-05-22 06:08] LABS: ALB/GLOB RATIO 0.6 (1.1-1.8); ALBUMIN 2.2 g/dL (3.0-4.8); CALCIUM 7.8 mg/dL (8.4-10.5)
[2018-05-22 06:13] LABS: BASO # 0.02 K/mm3 (0.0-2.0); BASO % 0.3 % (0.0-3.0); GRAN # 5.42 (1.4-6.5); GRAN % 84.2 % (50.0-68.0); HEMOGLOBIN 9.3 g/dL (12.0-16.0); LYMPH # 0.6 (1.2-3.4); LYMPH % 9.3 % (22.0-35.0); MEAN CELL VOLUME 83.1 fl (80.0-105.0); MEAN CORPUSCULAR HEMOGLOBIN 25.7 pg (25.0-35.0); MEAN CORPUSCULAR HGB CONC 30.9 g/dl (31.0-37.0); MEAN PLATELET VOLUME 9.9 fl (7.0-11.0); MONO # 0.4 (0.1-0.6); MONO % 6.2 % (1.0-6.0); RBC 3.62 10^6/uL (3.5-6.1); RED CELL DISTRIBUTION WIDTH 16.3 % (11.5-14.5); WHITE BLOOD COUNT 6.4 10^3/ul (4.5-11.0)
[2018-05-22 06:19] LABS: ARTERIAL BLOOD GAS HCO3 18.6 mmol/L (21-28); ARTERIAL BLOOD GAS HEMOGLOBIN 9.4 g/dL (11.7-17.4); ARTERIAL BLOOD GAS O2 CONTENT 12.2 ML/dl (15-23); ARTERIAL BLOOD GAS O2 SAT 94.1 % (95-98); ARTERIAL BLOOD GAS PCO2 37 mm/Hg (35-45); ARTERIAL BLOOD GAS PH 7.31 (7.35-7.45); ARTERIAL BLOOD GAS TCO2 19.7 mmol.L (22-28)
[2018-05-22] MEDS: Budesonide 0.5 mg/2 ml Inhal Susp UD IH SCH ×2 (07:40→20:43)
[2018-05-22] MEDS: Arformoterol 15 mcg/2 ml Inh Sol IH SCH ×2 (07:40→20:43)
--- NOTE | 2018-05-22 09:04 | PN ---
DATE: 05/22/2018 SUBJECTIVE: The patient was seen earlier today. She is extubated. She was seen earlier in room 129, bed 6. She is awake and alert and remains extubated. PHYSICAL EXAMINATION: VITAL SIGNS: On exam, temperature is 98, blood pressure is 102/60, respiratory rate of 18, heart rate of 97. HEENT: Examination of HEENT is unremarkable. NECK: Supple. LUNGS: Have decreased breath sounds. HEART: Normal S1, S2. ABDOMEN: Soft. nontender. LABORATORY DATA: Laboratory examination reveals a white count of 6.4, hemoglobin of 9.3, platelets of 166. The patient has an elevated D-dimer. Chemistries reveals the creatinine is 1.9. AST is 1111 and ALT is 1248, normal alkaline phosphatase. Urinalysis is noted, toxicology is noted. Microbiology, blood cultures no growth. Urine cultures no growth. MRSA is not detected. Sputum cultures are pending. The patient had a chest x-ray yesterday, stable infiltrate. ASSESSMENT AND PLAN: A 37-year-old female with end-stage acquired immunodeficiency syndrome admitted with septic shock and severe sepsis, status post ventilatory failure, respiratory failure, on a vent, acute kidney injury, acute fulminant hepatitis, probable Pneumocystis pneumonia with end-stage acquired immunodeficiency syndrome, noncompliant with medications, with underlying chronic obstructive lung disease, history of intravenous drug abuse, history of hepatitis C, chronic back pain and with acute kidney injury. Herpes PCR 1 and 2 are pending. Currently on clindamycin, meropenem, primaquine, Solu-Medrol and acyclovir. We will follow closely with you. Cheikh Chou MD
--- NOTE | 2018-05-22 10:50 | CP.PCM.PN ---
Subjective - Date & Time of Evaluation Date of Evaluation: 05/22/18 Time of Evaluation: 07:20 - Subjective Subjective: Patient seen and examined on rounds this morning. Pt AAoX3, NAD, doing well, no major complaints. Objective - Vital Signs/Intake and Output Vital Signs (last 24 hours): Temp Pulse Resp BP Pulse Ox 98.3 F 96 H 15 102/60 93 L 05/22/18 04:00 05/22/18 04:20 05/22/18 04:20 05/22/18 04:00 05/22/18 04:20 Intake and Output: 05/22/18 05/22/18 06:59 18:59 Intake Total 1300 Output Total 300 Balance 1000 - Medications Medications: Current Medications Arformoterol Tartrate (Brovana) 15 mcg IH [id number] [facility] Last Admin: 05/22/18 07:40 Dose: 15 mcg Budesonide (Pulmicort Respules) 0.5 mg IH [id number] [facility] Last Admin: 05/22/18 07:40 Dose: 0.5 mg Clonazepam (Klonopin) 0.5 mg PO BID PRN; Protocol PRN Reason: Anxiety Famotidine (Pepcid) 20 mg PO DAILY [facility] Last Admin: 05/21/18 12:13 Dose: 20 mg Heparin Sodium (Porcine) (Heparin) 5,000 units SC Q8 [facility] PRN Reason: Protocol Last Admin: 05/22/18 05:24 Dose: 5,000 units Clindamycin Phosphate 900 mg/ (Sodium Chloride) 106 mls @ 106 mls/hr IVPB Q8 [facility] PRN Reason: Protocol Last Admin: 05/22/18 05:25 Dose: 106 mls/hr Meropenem (Merrem Iv 1 Gm Premix) 50 mls @ 100 mls/hr IVPB Q12 [facility] PRN Reason: Protocol Last Admin: 05/21/18 21:31 Dose: 100 mls/hr Fentanyl Citrate (Fentanyl Citrate/Sodium Chloride 1 Mg/100 Ml) 1,000 mcg in 100 mls @ 2 mls/hr IV .Q24H PRN; Protocol; 20 MCG/HR PRN Reason: TITRATE PER MD ORDER Last Titration: 05/21/18 04:00 Dose: 20 mcg/hr, 2 mls/hr Acyclovir 600 mg/ Sodium (Chloride) 100 mls @ 100 mls/hr IV Q12 [facility] PRN Reason: Protocol Last Admin: 05/21/18 21:26 Dose: 100 mls/hr Sodium Chloride (Sodium Chloride 0.45%) 1,000 mls @ 75 mls/hr IV .[id number] [facility] Last Admin: 05/22/18 05:25 Dose: 75 mls/hr Methadone HCl (Methadone) 120 mg PO DAILY [facility] Last Admin: 05/21/18 12:11 Dose: 120 mg Methylprednisolone (Solu-Medrol) 40 mg IVP 0600,1800 [facility] Last Admin: 05/21/18 20:07 Dose: 40 mg Primaquine Phosphate (Primaquine) 26.3 mg PO DAILY [facility] PRN Reason: Protocol Last Admin: 05/21/18 12:14 Dose: 26.3 mg Sodium Bicarbonate (Sodium Bicarbonate Tab) 1,300 mg PO BID [facility] - Labs Labs: 05/22/18 05:15 05/22/18 05:15 PT 16.3 SECONDS (9.4-12.5) H 05/20/18 04:45 INR 1.41 (0.93-1.08) H 05/20/18 04:45 - Constitutional Appears: Non-toxic, No Acute Distress - Head Exam Head Exam: NORMAL INSPECTION - Eye Exam Eye Exam: Normal appearance - ENT Exam ENT Exam: Mucous Membranes Moist - Respiratory Exam Respiratory Exam: Clear to Ausculation Bilateral, NORMAL BREATHING PATTERN - Cardiovascular Exam Cardiovascular Exam: REGULAR RHYTHM, +S1, +S2 - GI/Abdominal Exam GI & Abdominal Exam: Soft, Normal Bowel Sounds - Extremities Exam Extremities Exam: Full ROM - Back Exam Back Exam: NORMAL INSPECTION - Neurological Exam Neurological Exam: Alert, Awake, Oriented x3 - Psychiatric Exam Psychiatric exam: Normal Affect - Skin Skin Exam: Normal Color, Warm Assessment and Plan - Assessment and Plan (Free Text) Assessment: Patient is 37yo female with PMhx of HIV/AIDS, last CD4 count <20, non compliance with meds, PCP PNA, Hep C, hx of IVDU, recent admission to [facility] for PCP PNA admitted or fever, chills, cough, and SOB. In the ER noted to have hypercapnia, hypoxia, and elevated LFTs. Placed on BIPAP initially, with no improvement, subsequently intubated. Yesterday extubated to 2LNC, tolerated well. Labs, imaging, notes reviewed. Currently afebrile, BP stable, OFF vasopressors. AAOx3 ID following, antibiotics recs appreciated GI following Hepatology team at [facility] spoken to, no acute indication for liver transplant, likely combination of ischemic/viral hepaptitis given normal Tbilli, normal Tylenol levels. LFTs down trending, improving. TBilli normal Completed a course of NAC Abx XRay no free air CT C/A/P reviewed and noted. PNA, PCP SOB Fever Severe Sepsis elevated LFTs, resolving HIV/AIDs Hx of IVDU Liver failure without coma, resolved Recommend: - cont with supp o2 as needed - duonebs PRN - taper Solumedrol 20mg Q12hr IV - broad spectrum abx, as per ID - PCP tx Primaquin, Clinda - ID follow up - monitor LFTs, INR, TBilli - follow up GI - IV fluids - Renal sono - GI ppx - DVT ppx - transfer to telemetry
[2018-05-22] MEDS: Meropenem IV 1 gm in NS 50 ML IVPB SCH ×2 (11:00→21:46)
[2018-05-22] MEDS: Primaquine 26.3 mg Tab PO SCH (11:01)
--- NOTE | 2018-05-22 11:09 | RAD ---
Date of service: 05/22/2018 HISTORY: intubated COMPARISON: May 21, 2018. FINDINGS: LUNGS: Stable infiltrates primarily right lung. PLEURA: No significant pleural effusion identified, no pneumothorax apparent. CARDIOVASCULAR: Normal. OSSEOUS STRUCTURES: No significant abnormalities. VISUALIZED UPPER ABDOMEN: Normal. OTHER FINDINGS: Removal of support apparatus since the prior study: Patient extubated with removal of nasogastric tube. IMPRESSION: Stable infiltrates. No new abnormalities.
[2018-05-22] MEDS: MethylPREDNISolone 40 mg Vial IVP SCH ×2 (11:15→21:46)
--- NOTE | 2018-05-22 12:07 | PN ---
DATE: 05/22/2018 LOCATION: The patient is in room CCU 129, bed 6. REASON FOR CONSULTATION: Follow up respiratory failure, HIV, rule out CHF, rule out cardiomyopathy. SUBJECTIVE: The patient has been successfully extubated. The patient is conscious, alert. Denies chest pain. Her breathing is better. Denies any palpitation. PHYSICAL EXAMINATION: VITAL SIGNS: Blood pressure 102/60, respirations 17, pulse 96, the patient is afebrile. HEENT: Head is normocephalic. Eyes: Pupils normal. Conjunctivae slightly pale. NECK: JVP low. Carotids equal. THORAX: AP diameter is normal. LUNGS: Few wheezing sounds. CARDIOVASCULAR: S1 and S2. ABDOMEN: Soft. No tenderness. No organomegaly. Bowel sounds normal. EXTREMITIES: No clubbing. No cyanosis. LABORATORY DATA: WBC 6.4, hemoglobin 9.3, hematocrit 30.1, platelets 166. Sodium 140, potassium 4.6, BUN 82, creatinine 1.9. Random sugar 124. AST 1111, ALT 1248. Total protein 5.8, albumin 2.2. Chest x-ray done today showed stable infiltrate in the right lung. DIAGNOSES: Respiratory failure, human immunodeficiency virus, pneumonia, successful extubation. Recent cardiac workup in 03/2018 showed biventricular decreased systolic function, decreased left ventricular ejection fraction and decreased right ventricular systolic motion, mitral regurg, tricuspid regurg. The patient's now BUN elevated. PLAN: The patient is getting IV fluids 75 mL an hour. The patient is also getting antibiotics, clindamycin 900 mg IV every 8 hours, DuoNeb hand nebulizer therapy, heparin 5000 units subcu every 8 hours, meropenem 50 mL IV every 12 hours, methadone 120 mg p.o. daily, primaquine 26.3 mg p.o. daily, methylprednisolone 40 mg IV b.i.d., acyclovir 600 mg IV every 12 hours. The patient is now successfully extubated. No evidence of CHF. We will continue IV fluid and antibiotics as ordered and we will follow up. Cara Umaña MD
--- NOTE | 2018-05-22 12:42 | CP.PCM.PN ---
<Negra Medina - Last Filed: 05/22/18 12:44> Subjective - Date & Time of Evaluation Date of Evaluation: 05/22/18 Time of Evaluation: 07:30 - Subjective Subjective: PGY5 GI Follow-up Pt seen and examined bedside still slight SOB Denies any abd pain extubated yesterday and tolerated denies BM ROS: 12 point ROS conducted, neg other than above Objective - Vital Signs/Intake and Output Vital Signs (last 24 hours): Temp Pulse Resp BP Pulse Ox 98.3 F 96 H 15 102/60 93 L 05/22/18 04:00 05/22/18 04:20 05/22/18 04:20 05/22/18 04:00 05/22/18 04:20 Intake and Output: 05/22/18 05/22/18 06:59 18:59 Intake Total 1300 Output Total 300 Balance 1000 - Medications Medications: Current Medications Arformoterol Tartrate (Brovana) 15 mcg IH [id number] [facility] Last Admin: 05/22/18 07:40 Dose: 15 mcg Budesonide (Pulmicort Respules) 0.5 mg IH [id number] [facility] Last Admin: 05/22/18 07:40 Dose: 0.5 mg Clonazepam (Klonopin) 0.5 mg PO BID PRN; Protocol PRN Reason: Anxiety Last Admin: 05/22/18 11:06 Dose: 0.5 mg Famotidine (Pepcid) 20 mg PO DAILY [facility] Last Admin: 05/22/18 11:01 Dose: 20 mg Heparin Sodium (Porcine) (Heparin) 5,000 units SC Q8 [facility] PRN Reason: Protocol Last Admin: 05/22/18 05:24 Dose: 5,000 units Clindamycin Phosphate 900 mg/ (Sodium Chloride) 106 mls @ 106 mls/hr IVPB Q8 [facility] PRN Reason: Protocol Last Admin: 05/22/18 05:25 Dose: 106 mls/hr Meropenem (Merrem Iv 1 Gm Premix) 50 mls @ 100 mls/hr IVPB Q12 [facility] PRN Reason: Protocol Last Admin: 05/22/18 11:00 Dose: 100 mls/hr Fentanyl Citrate (Fentanyl Citrate/Sodium Chloride 1 Mg/100 Ml) 1,000 mcg in 100 mls @ 2 mls/hr IV .Q24H PRN; Protocol; 20 MCG/HR PRN Reason: TITRATE PER MD ORDER Last Titration: 05/21/18 04:00 Dose: 20 mcg/hr, 2 mls/hr Acyclovir 600 mg/ Sodium (Chloride) 100 mls @ 100 mls/hr IV Q12 [facility] PRN Reason: Protocol Last Admin: 05/22/18 11:22 Dose: 100 mls/hr Sodium Chloride (Sodium Chloride 0.45%) 1,000 mls @ 75 mls/hr IV .[id number] [facility] Last Admin: 05/22/18 05:25 Dose: 75 mls/hr Methadone HCl (Methadone) 120 mg PO DAILY [facility] Last Admin: 05/22/18 11:01 Dose: 120 mg Methylprednisolone (Solu-Medrol) 40 mg IVP 0600,1800 [facility] Last Admin: 05/22/18 11:15 Dose: 40 mg Primaquine Phosphate (Primaquine) 26.3 mg PO DAILY [facility] PRN Reason: Protocol Last Admin: 05/22/18 11:01 Dose: 26.3 mg Sodium Bicarbonate (Sodium Bicarbonate Tab) 1,300 mg PO BID [facility] Last Admin: 05/22/18 11:01 Dose: 1,300 mg - Labs Labs: 05/22/18 05:15 05/22/18 05:15 PT 16.3 SECONDS (9.4-12.5) H 05/20/18 04:45 INR 1.41 (0.93-1.08) H 05/20/18 04:45 - Constitutional Appears: Well, No Acute Distress - Head Exam Head Exam: ATRAUMATIC, NORMOCEPHALIC - Eye Exam Eye Exam: Normal appearance - ENT Exam ENT Exam: Mucous Membranes Moist, Normal Exam - Neck Exam Neck Exam: Normal Inspection - Respiratory Exam Respiratory Exam: Clear to Ausculation Bilateral, NORMAL BREATHING PATTERN. absent: Rales, Rhonchi, Wheezes, Respiratory Distress - Cardiovascular Exam Cardiovascular Exam: REGULAR RHYTHM, +S1, +S2 - GI/Abdominal Exam GI & Abdominal Exam: Soft, Normal Bowel Sounds. absent: Guarding, Rigid, Tenderness, Organomegaly, Rebound - Extremities Exam Extremities Exam: absent: Joint Swelling, Pedal Edema - Neurological Exam Neurological Exam: Alert, Awake, Oriented x3 - Psychiatric Exam Psychiatric exam: Normal Affect, Normal Mood - Skin Skin Exam: Dry, Intact, Normal Color, Warm Assessment and Plan - Assessment and Plan (Free Text) Assessment: This is a 37 yo F with PMH of HIV (medication non-compliance), PCP pneumonia, neck abscess, and Hepatitis C who represented to [facility] with complaint of shortness of breath, fever, and non-productive cough, later developing hypercapnic respiratory failure and requiring intubation. Elevated transaminases etiology likely Ischemic hepatitis Ischemic likely 2/2 PNA VDRF, s/p extubatation Plan: -Abd US obtained notable for stable Hepatomegaly/hepatic steatosis, Mild splenomegaly -Abd X-ray obtained due to abd distension and septic picture, want to rule out acute intestinal perf; negative for free air under diaphragm -CXR notable for R lower infiltrate, Pending CT chest/abd/pelvis w/o contrast -known hx Hep C, not compliant with medications; hepatitis panel positive for Hep B surface antigen as well, pending Hep B surface antibody -received 2x doses of NAC, but acetaminophen level negative, no further doses indicated -Transaminases improving -continue to maintain MAP >65 -continue IV fluid resusitation -abx as per ID D/W Dr. Centeno <Anne Centeno V - Last Filed: 05/22/18 18:15> Objective - Vital Signs/Intake and Output Vital Signs (last 24 hours): Temp Pulse Resp BP Pulse Ox 97.8 F 102 H 21 98/60 L 91 L 05/22/18 12:00 05/22/18 14:20 05/22/18 14:20 05/22/18 14:00 05/22/18 14:10 Intake and Output: 05/22/18 05/22/18 06:59 18:59 Intake Total 1300 Output Total 300 Balance 1000 - Medications Medications: Current Medications Arformoterol Tartrate (Brovana) 15 mcg IH [id number] [facility] Last Admin: 05/22/18 07:40 Dose: 15 mcg Budesonide (Pulmicort Respules) 0.5 mg IH [id number] [facility] Last Admin: 05/22/18 07:40 Dose: 0.5 mg Clonazepam (Klonopin) 0.5 mg PO BID PRN; Protocol PRN Reason: Anxiety Last Admin: 05/22/18 11:06 Dose: 0.5 mg Famotidine (Pepcid) 20 mg PO DAILY [facility] Last Admin: 05/22/18 11:01 Dose: 20 mg Heparin Sodium (Porcine) (Heparin) 5,000 units SC Q8 [facility] PRN Reason: Protocol Last Admin: 05/22/18 13:30 Dose: 5,000 units Clindamycin Phosphate 900 mg/ (Sodium Chloride) 106 mls @ 106 mls/hr IVPB Q8 [facility] PRN Reason: Protocol Last Admin: 05/22/18 13:31 Dose: 106 mls/hr Meropenem (Merrem Iv 1 Gm Premix) 50 mls @ 100 mls/hr IVPB Q12 [facility] PRN Reason: Protocol Last Admin: 05/22/18 11:00 Dose: 100 mls/hr Acyclovir 600 mg/ Sodium (Chloride) 100 mls @ 100 mls/hr IV Q12 [facility] PRN Reason: Protocol Last Admin: 05/22/18 11:22 Dose: 100 mls/hr Methadone HCl (Methadone) 120 mg PO DAILY [facility] Last Admin: 05/22/18 11:01 Dose: 120 mg Methylprednisolone (Solu-Medrol) 20 mg IVP Q12 [facility] Primaquine Phosphate (Primaquine) 26.3 mg PO DAILY [facility] PRN Reason: Protocol Last Admin: 05/22/18 11:01 Dose: 26.3 mg Sodium Bicarbonate (Sodium Bicarbonate Tab) 1,300 mg PO BID [facility] Last Admin: 05/22/18 11:01 Dose: 1,300 mg - Labs Labs: 05/22/18 05:15 05/22/18 05:15 PT 16.3 SECONDS (9.4-12.5) H 05/20/18 04:45 INR 1.41 (0.93-1.08) H 05/20/18 04:45 Attending/Attestation - Attestation I have personally seen and examined this patient.: Yes I have fully participated in the care of the patient.: Yes I have reviewed all pertinent clinical information, including history, physical exam and plan: Yes Notes (Text): This is an addendum to GI progress report dictated by the GI Fellow.The patient was seen and examined earlier. Medical records, lab studies, imagings were reviewed. Last 24 hours events reviewed. Agreed with the above treatment plan as outlined in GI Fellow 's notes the with the addition of the following LFT shows downward trend probably sec to shock liver Patient had a hepatitis C antibody positive Patient appears immune to hep B, core antibody positive, surface antibody positive E antigen negative and E antibody positive Presently on clindamycin and also on methylprednisone high risk for C. difficile we will follow 05/22/18 18:11
--- NOTE | 2018-05-22 14:39 | PN ---
DATE: 05/22/2018 PULMONARY PROGRESS NOTE REFERRING PHYSICIAN: Macario Carter MD SUBJECTIVE: The patient is lying in the bed, head at 45 degrees, sleepy, arousable. Night was unremarkable on supplemental oxygen, still have cough, shortness of breath, wheezing. No nausea. No vomiting. No diarrhea. Has some leg swelling. OBJECTIVE: GENERAL: In no acute distress. VITAL SIGNS: Temperature is 98, heart rate is 96, respiratory rate is 16, blood pressure 102/60, pulse ox 93% on 5 liters nasal cannula. HEENT: Moist mucous membrane. Crowded airway. NECK: Supple. No JVD. LUNGS: Have a few crackles at the bases with scattered rhonchi and wheezing. HEART: S1 and S2. ABDOMEN: Soft, nontender. No organomegaly. EXTREMITIES: Does have edema. NEUROLOGICAL: Asleep and arousable. Follows simple command. MEDICATIONS: She is on acyclovir 600 mg every 12 hours, Brovana inhaled twice a day, clindamycin 900 mg every 8 hours, fentanyl discontinued, heparin 5000 units subcu every 8 hours, Klonopin 0.5 mg twice a day p.r.n., meropenem 1 g IV every 12 hours, methadone 120 mg daily, Pepcid 20 mg daily, primaquine 26.3 mg daily, Pulmicort inhaled twice a day, sodium bicarbonate 1300 mg twice a day, Solu-Medrol 40 mg every 12 hours. LABORATORY DATA: Shows hemoglobin 9.3, hematocrit 30.1, WBC 6.4, platelet is 166. ABG shows pH 7.31, pCO2 37, O2 61 that is on 40% oxygen. Sodium 140, potassium 4.6, chloride 109, bicarbonate 21, BUN 82, creatinine 1.9, glucose 124, phosphorus is 6, AST 1111, ALT 1248, albumin is 2.2. TSH 0.26. She had a chest x-ray done today shows stable infiltrates, which is primary in the right lung. Not much change. IMPRESSION AND PLAN: Respiratory failure, presently extubated on nasal cannula. Has a chronic obstructive lung disease, acquired immune deficiency syndrome, cardiomyopathy with decreased left ventricular function and pulmonary hypertension, methadone dependent, elevated liver enzymes. Pulmonary point of view, she is doing okay. We will decrease Solu-Medrol. Continue inhaled bronchodilator. Continue antibiotics. Careful with fluids. She is becoming anasarca retaining fluid in the legs and sacral area. Gastric prophylaxis, deep vein thrombosis prophylaxis. Follow up labs in the morning. Thank you and we will follow with you. Cara Barajas MD
--- NOTE | 2018-05-22 16:16 | CP.PCM.PN ---
Subjective - Date & Time of Evaluation Date of Evaluation: 05/22/18 Time of Evaluation: 16:14 - Subjective Subjective: Nephrology Consultation Note: Assessment: stable Acute Kidney Injury (N17.9) likely due to sepsis/hypotension and pre-renal state /dehydration as evident by concentrated urine abnormal LFT acute hypercapnic respi failure combined respi and metabolic acidosis Hyperphosphatemia HIV/AIDS (CD 4 count <20) non compliant to meds, hx of PCP pneumonia, IVDA, chronic Hep C, COPD Plan No acute need for renal replacement therapy at this time. maintain hemodynamics stable. avoid hypotension. Patient not on ACEI/ARB due to BERNICE Monitor Input/Output, daily weights and renal function with basic metabolic panel continue with IVF. added sodium bicarb ID, GI following Dose meds/antibiotics for reduced GFR. Avoid fleets enema/magnesium based laxatives. Avoid nephrotoxins/NSAIDs/ iodinated contrast (unless needed emergently) Glycemic control Further work up/management as per primary team Thanks for allowing me to participate in care of your patient. Will follow patient with you. Please call if any Qs. had d/w team Dr Sesar Paez Office: [phone] Chief Complaint: unable to obtain reason for consult: BERNICE source of Info: EMR HPI: Pt is a 37 F with hx of HIV/AIDS (CD 4 count <20) non compliant to meds, hx of PCP pneumonia, IVDA, chronic Hep C, COPD presented with complaints of SOB , cough and fever, found to have sepsis, acute respi failure s/p intubation 05/19 also with BERNICE and abnormal LFT. renal consult for BERNICE management No recent iodinated contrast exposure. Noted obvious episodes of low BP. ROS: extubated. pt feels better. SOB better Physical Examination: General Appearance: Comfortable, in no acute respiratory distress. Vitals reviewed and noted as below Head; Atraumatic, normocephalic ENT: normal mucosa EYES: Pupils are equal, round and reactive to light accommodation. Eye muscles and extraocular movement intact. Sclera is anicteric. Neck; supple no lymphadenopathy, no thyromegaly or bruit Lungs: Normal respiratory rate/effort. Breath sounds bilateral equal and with few exp wheeze Heart: Normal rate. s1s2 normal. No rub or gallop. Extremities: no edema. No varicose veins Neurological: Patient is sleepy but arousable Skin: Warm and dry. Normal turgor. No rash. Palpitation: Normal elasticity for age Abdomen: Abdomen is soft. Bowel sounds +. There is no abdominal tenderness, no guarding/rigidity no organomegaly. appears distended Psych: unable MSK: no joint tenderness or swelling. Digits and nails normal, no deformity : kidney or bladder not palpable. has fuentes Labs/imaging reviewed. Past medical history, past surgical history, family history, social history, allergy reviewed and noted as below Family hx: no hx of CKD. Rest non-contributory work up: renal imaging unremarkable UA SG >1.030 Na 9 neg for ketone/blood CK normal Objective - Vital Signs/Intake and Output Vital Signs (last 24 hours): Temp Pulse Resp BP Pulse Ox 97.8 F 102 H 21 98/60 L 91 L 05/22/18 12:00 05/22/18 14:20 05/22/18 14:20 05/22/18 14:00 05/22/18 14:10 Intake and Output: 05/22/18 05/22/18 06:59 18:59 Intake Total 1300 Output Total 300 Balance 1000 - Medications Medications: Current Medications Arformoterol Tartrate (Brovana) 15 mcg IH [id number] [facility] Last Admin: 05/22/18 07:40 Dose: 15 mcg Budesonide (Pulmicort Respules) 0.5 mg IH [id number] [facility] Last Admin: 05/22/18 07:40 Dose: 0.5 mg Clonazepam (Klonopin) 0.5 mg PO BID PRN; Protocol PRN Reason: Anxiety Last Admin: 05/22/18 11:06 Dose: 0.5 mg Famotidine (Pepcid) 20 mg PO DAILY [facility] Last Admin: 05/22/18 11:01 Dose: 20 mg Heparin Sodium (Porcine) (Heparin) 5,000 units SC Q8 [facility] PRN Reason: Protocol Last Admin: 05/22/18 13:30 Dose: 5,000 units Clindamycin Phosphate 900 mg/ (Sodium Chloride) 106 mls @ 106 mls/hr IVPB Q8 [facility] PRN Reason: Protocol Last Admin: 05/22/18 13:31 Dose: 106 mls/hr Meropenem (Merrem Iv 1 Gm Premix) 50 mls @ 100 mls/hr IVPB Q12 [facility] PRN Reason: Protocol Last Admin: 05/22/18 11:00 Dose: 100 mls/hr Acyclovir 600 mg/ Sodium (Chloride) 100 mls @ 100 mls/hr IV Q12 [facility] PRN Reason: Protocol Last Admin: 05/22/18 11:22 Dose: 100 mls/hr Methadone HCl (Methadone) 120 mg PO DAILY [facility] Last Admin: 05/22/18 11:01 Dose: 120 mg Methylprednisolone (Solu-Medrol) 20 mg IVP Q12 [facility] Primaquine Phosphate (Primaquine) 26.3 mg PO DAILY [facility] PRN Reason: Protocol Last Admin: 05/22/18 11:01 Dose: 26.3 mg Sodium Bicarbonate (Sodium Bicarbonate Tab) 1,300 mg PO BID [facility] Last Admin: 05/22/18 11:01 Dose: 1,300 mg - Labs Labs: 05/22/18 05:15 05/22/18 05:15 PT 16.3 SECONDS (9.4-12.5) H 05/20/18 04:45 INR 1.41 (0.93-1.08) H 05/20/18 04:45
--- NOTE | 2018-05-22 23:29 | PN ---
DATE: 05/22/2018 SUBJECTIVE: The patient is comfortable in ICU. No respiratory distress. She is alert, awake, oriented x3. Afebrile. PHYSICAL EXAMINATION: VITAL SIGNS: Temperature is 98.3, heart rate 97, blood pressure 102/60, respirations 17, saturating 97%. HEAD AND NECK: Normal. No JVD. No thyromegaly. CHEST: Clear anteriorly bilaterally. CARDIAC: First sound and second sound normal. ABDOMEN: Soft, nontender. EXTREMITIES: No edema. NEUROLOGIC: Normal. LABORATORY STUDY: Shows sodium 140, potassium 4.6, chloride 109, bicarb 21, BUN 82, creatinine 1.9. Blood sugar 124. Calcium 7.8. Total bili 0.2. AST is 1111 and ALT is 1248, which is less than before. Alk phos is normal. CBC shows white count 6.4, hemoglobin 9.3, hematocrit 30.1, platelets 166. IMPRESSION AND PLAN: 1. 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 Continue clindamycin plus primaquine and inhaled bronchodilator. 2. Acute chronic obstructive pulmonary disease exacerbation. Continue intravenous steroids, which helps the chronic obstructive pulmonary disease and the Pneumocystis carinii pneumonia, plus continue inhaled bronchodilators. 3. Human immunodeficiency virus advanced, poor compliance. Patient recently told me that she went to [facility] just a week ago. 4. Patient has cardiomyopathy. Ejection fraction is 30% or less. Patient needs to be followed in a tertiary care center for possible human immunodeficiency virus, cardiomyopathy with underlying ischemia. 5. Hepatitis, probably congestion or due to drugs. We will follow up liver function tests, seems improving. Dr. Centeno will follow up there. She does have hepatitis and CMV. We will monitor liver function test. She needs to be followed up by Gastroenterology also. 6. Chronic anxiety, history of drug abuse. Continue methadone. Continue Klonopin 0.5 mg b.i.d. She is clinically better, improving. 7. Acute renal failure. We will continue monitoring her creatinine. Her creatinine is little bit better at 1.9. We will continue to follow up with Nephrology. Patient seemed having multiorgan disease including lung, heart, kidney, liver. We will continue supportive care at this time. Patient needs to be followed up by [facility] with tertiary care center for her multiple problems. Continue current therapy for now. Continue gastrointestinal and deep venous thrombosis prophylaxes. Macario Carter MD
--- NOTE | 2018-05-23 00:21 | PN ---
DATE: 05/21/2018 SUBJECTIVE: She is 37-year-old female in the ICU. She complains that she has some anxiety. Her breathing is better, but still having some cough. She has no chest pain. PHYSICAL EXAMINATION: VITAL SIGNS: She is afebrile. Her temperature is 98.2, heart rate 98, respirations 17. HEAD AND NECK: Normal. No JVD. No thyromegaly. CHEST: Bilateral rhonchi. CARDIAC: First sound and second sound normal. ABDOMEN: Soft and nontender. EXTREMITIES: No edema. NEUROLOGIC: Normal. The patient is alert, awake, and she moves all extremities neurologically. LABORATORY STUDY: White count 10.5, hemoglobin 9.7, hematocrit 30.9, platelets of 202. Chemistry: Sodium 140, potassium 4.8, chloride 110, bicarbonate 21, BUN 70, creatinine is 2, calcium is 7.8, phosphorus 6. AST is down to 2651. ALT 1881. The patient's LDL cholesterol is less than 30. HDL cholesterol is 20. Total cholesterol is 80. Triglycerides 17. The patient also had ceruloplasmin level which was normal, and TSH was 0.26. CURRENT MEDICATION: Acyclovir is 600 b.i.d., Brovana, clindamycin, heparin subcutaneously, Klonopin, Merrem or meropenem 1 g every 12, methadone 140, Pepcid 20, primaquine 26.3, Pulmicort, sodium bicarbonate pills and Solu-Medrol. Continue these current medication. IMPRESSION AND PLAN: 1. Sepsis secondary to pneumonia, Pneumocystis carinii pneumonia. The patient has history of recurrent Pneumocystis carinii pneumonia. We will continue clindamycin 900 IV every 8 plus Primaquine 26.3 p.o. daily. 2. Acute asthma exacerbation, chronic obstructive pulmonary disease. Continue Solu-Medrol. Continue inhaled bronchodilators, Brovana and Pulmicort. 3. The patient has history of drug use. She is on methadone, we decreased methadone to 140 and we will decrease it more. Continue current therapy. For underling anxiety, we will give her Klonopin 0.5 mg twice a day. Continue current therapy. Continue gastric and deep venous thrombosis prophylaxis. 4. Acute renal failure, we will repeat chemistry, we will get Renal consult seeing the patient and we will followup clinically. 5. Anemia, multiple etiology. At this time, we will continue current therapy; focus on pulmonary. Macario Carter MD
[2018-05-23 06:25] LABS: BASO # 0.02 K/mm3 (0.0-2.0); BASO % 0.3 % (0.0-3.0); GRAN # 5.79 (1.4-6.5); GRAN % 79.1 % (50.0-68.0); LYMPH % 13.8 % (22.0-35.0); MEAN CELL VOLUME 82.8 fl (80.0-105.0); MEAN CORPUSCULAR HEMOGLOBIN 25.7 pg (25.0-35.0); MEAN CORPUSCULAR HGB CONC 31.1 g/dl (31.0-37.0); MEAN PLATELET VOLUME 9.3 fl (7.0-11.0); MONO # 0.5 (0.1-0.6); MONO % 6.8 % (1.0-6.0); RBC 3.89 10^6/uL (3.5-6.1); RED CELL DISTRIBUTION WIDTH 16.3 % (11.5-14.5); WHITE BLOOD COUNT 7.3 10^3/ul (4.5-11.0)
[2018-05-23 07:01] LABS: ALB/GLOB RATIO 0.6 (1.1-1.8); ALBUMIN 2.3 g/dL (3.0-4.8); ALT/SGPT 887 U/L (7-56); AST/SGOT 517 U/L (14-36); BLOOD UREA NITROGEN 66 mg/dL (7-21); CALCIUM 8.2 mg/dL (8.4-10.5); GFR AFRICAN-AMERICAN > 60; GFR NON-AFRICAN AMERICAN 51
[2018-05-23] MEDS: Arformoterol 15 mcg/2 ml Inh Sol IH SCH ×2 (07:58→20:13)
[2018-05-23] MEDS: Budesonide 0.5 mg/2 ml Inhal Susp UD IH SCH ×2 (07:59→20:13)
--- NOTE | 2018-05-23 08:04 | CP.PCM.PN ---
Subjective - Date & Time of Evaluation Date of Evaluation: 05/23/18 Time of Evaluation: 06:45 - Subjective Subjective: Awake, alert, mild shortness of breath Reason for consultation and follow up: Cardiac evaluation for shortness of breath, respiratory failure Seen and examined by me and Dr. Veliz Objective - Vital Signs/Intake and Output Vital Signs (last 24 hours): Temp Pulse Resp BP Pulse Ox 97.8 F 103 H 21 98/60 L 91 L 05/22/18 12:00 05/23/18 06:00 05/22/18 14:20 05/22/18 14:00 05/22/18 14:10 Intake and Output: 05/23/18 05/23/18 06:59 18:59 Intake Total 240 Output Total 800 Balance -560 - Medications Medications: Current Medications Arformoterol Tartrate (Brovana) 15 mcg IH [id number] [facility] Last Admin: 05/23/18 07:58 Dose: 15 mcg Budesonide (Pulmicort Respules) 0.5 mg IH [id number] [facility] Last Admin: 05/23/18 07:59 Dose: 0.5 mg Clonazepam (Klonopin) 0.5 mg PO BID PRN; Protocol PRN Reason: Anxiety Last Admin: 05/22/18 11:06 Dose: 0.5 mg Famotidine (Pepcid) 20 mg PO DAILY [facility] Last Admin: 05/22/18 11:01 Dose: 20 mg Heparin Sodium (Porcine) (Heparin) 5,000 units SC Q8 [facility] PRN Reason: Protocol Last Admin: 05/23/18 05:21 Dose: 5,000 units Clindamycin Phosphate 900 mg/ (Sodium Chloride) 106 mls @ 106 mls/hr IVPB Q8 [facility] PRN Reason: Protocol Last Admin: 05/23/18 05:21 Dose: 106 mls/hr Meropenem (Merrem Iv 1 Gm Premix) 50 mls @ 100 mls/hr IVPB Q12 [facility] PRN Reason: Protocol Last Admin: 05/22/18 21:46 Dose: 100 mls/hr Acyclovir 600 mg/ Sodium (Chloride) 100 mls @ 100 mls/hr IV Q12 [facility] PRN Reason: Protocol Last Admin: 05/22/18 22:30 Dose: 100 mls/hr Methadone HCl (Methadone) 120 mg PO DAILY [facility] Last Admin: 05/22/18 11:01 Dose: 120 mg Methylprednisolone (Solu-Medrol) 20 mg IVP Q12 [facility] Last Admin: 05/22/18 21:46 Dose: 20 mg Primaquine Phosphate (Primaquine) 26.3 mg PO DAILY [facility] PRN Reason: Protocol Last Admin: 05/22/18 11:01 Dose: 26.3 mg Sodium Bicarbonate (Sodium Bicarbonate Tab) 1,300 mg PO BID [facility] Last Admin: 05/22/18 18:27 Dose: 1,300 mg - Labs Labs: 05/23/18 05:50 05/23/18 05:50 PT 16.3 SECONDS (9.4-12.5) H 05/20/18 04:45 INR 1.41 (0.93-1.08) H 05/20/18 04:45 - Eye Exam Eye Exam: Normal appearance - ENT Exam ENT Exam: Mucous Membranes Dry - Respiratory Exam Respiratory Exam: Decreased Breath Sounds, Wheezes Additional comments: mask - Cardiovascular Exam Cardiovascular Exam: Tachycardia, +S1, +S2 - GI/Abdominal Exam GI & Abdominal Exam: Soft, Normal Bowel Sounds - Extremities Exam Extremities Exam: Full ROM, Normal Capillary Refill - Neurological Exam Neurological Exam: Alert, Awake, Oriented x3 - Psychiatric Exam Psychiatric exam: Anxious - Skin Skin Exam: Dry, Warm Assessment and Plan - Assessment and Plan (Free Text) Assessment: A 37 year old female who was admitted to ICU from ED due to respiratory failure requiring intubation, History of PCP, pneumonia, HIV (non-compliant with medication), neck abscess, and Hepatitis C. Transferred to telemetry after successful extubation. Plan: In bed, mild shortness of breath with wheezing Nebulizer treatment administered by respiratory therapist Tachycardic due to shortness of breath Stable blood pressure Pulmonary on consult Cardiac status stable Continue current treatment Continue current medications Will follow up Plan and treatment discussed with Dr. Veliz
--- NOTE | 2018-05-23 09:10 | CP.PCM.PN ---
<Laura Snell - Last Filed: 05/23/18 09:55> Subjective - Date & Time of Evaluation Date of Evaluation: 05/23/18 Time of Evaluation: 08:00 - Subjective Subjective: GI Fellow PGY5 Progress Note Pt seen and evaluated at bedside, pt doing well, she is extubated currently getting a breathing treatment. Pt denies any abdominal pain, N/V and tolerating diet. ROS: A 12pt ROS was negative except as above. Objective - Vital Signs/Intake and Output Vital Signs (last 24 hours): Temp Pulse Resp BP Pulse Ox 98.1 F 96 H 20 105/77 93 L 05/23/18 08:29 05/23/18 08:29 05/23/18 08:29 05/23/18 08:29 05/23/18 08:29 Intake and Output: 05/23/18 05/23/18 06:59 18:59 Intake Total 240 Output Total 800 Balance -560 - Medications Medications: Current Medications Arformoterol Tartrate (Brovana) 15 mcg IH [id number] [facility] Last Admin: 05/23/18 07:58 Dose: 15 mcg Budesonide (Pulmicort Respules) 0.5 mg IH [id number] [facility] Last Admin: 05/23/18 07:59 Dose: 0.5 mg Clonazepam (Klonopin) 0.5 mg PO BID PRN; Protocol PRN Reason: Anxiety Last Admin: 05/22/18 11:06 Dose: 0.5 mg Famotidine (Pepcid) 20 mg PO DAILY [facility] Last Admin: 05/22/18 11:01 Dose: 20 mg Heparin Sodium (Porcine) (Heparin) 5,000 units SC Q8 [facility] PRN Reason: Protocol Last Admin: 05/23/18 05:21 Dose: 5,000 units Clindamycin Phosphate 900 mg/ (Sodium Chloride) 106 mls @ 106 mls/hr IVPB Q8 [facility] PRN Reason: Protocol Last Admin: 05/23/18 05:21 Dose: 106 mls/hr Meropenem (Merrem Iv 1 Gm Premix) 50 mls @ 100 mls/hr IVPB Q12 [facility] PRN Reason: Protocol Last Admin: 05/22/18 21:46 Dose: 100 mls/hr Acyclovir 600 mg/ Sodium (Chloride) 100 mls @ 100 mls/hr IV Q12 [facility] PRN Reason: Protocol Last Admin: 05/22/18 22:30 Dose: 100 mls/hr Methadone HCl (Methadone) 120 mg PO DAILY [facility] Last Admin: 05/22/18 11:01 Dose: 120 mg Methylprednisolone (Solu-Medrol) 20 mg IVP Q12 [facility] Last Admin: 05/22/18 21:46 Dose: 20 mg Primaquine Phosphate (Primaquine) 26.3 mg PO DAILY [facility] PRN Reason: Protocol Last Admin: 05/22/18 11:01 Dose: 26.3 mg Sodium Bicarbonate (Sodium Bicarbonate Tab) 1,300 mg PO BID [facility] Last Admin: 05/22/18 18:27 Dose: 1,300 mg - Labs Labs: 05/23/18 05:50 05/23/18 05:50 PT 16.3 SECONDS (9.4-12.5) H 05/20/18 04:45 INR 1.41 (0.93-1.08) H 05/20/18 04:45 - Constitutional Appears: Non-toxic, No Acute Distress, Cachectic, Chronically Ill - Head Exam Head Exam: ATRAUMATIC, NORMAL INSPECTION, NORMOCEPHALIC - Eye Exam Eye Exam: EOMI, Normal appearance, PERRL - ENT Exam ENT Exam: Mucous Membranes Dry - Neck Exam Neck Exam: Full ROM, Normal Inspection - Respiratory Exam Respiratory Exam: Decreased Breath Sounds - Cardiovascular Exam Cardiovascular Exam: Tachycardia - GI/Abdominal Exam GI & Abdominal Exam: Soft, Normal Bowel Sounds. absent: Distended, Guarding, Tenderness, Organomegaly - Rectal Exam Rectal Exam: Deferred - Extremities Exam Extremities Exam: Full ROM, Normal Inspection - Neurological Exam Neurological Exam: Alert, Awake, Oriented x3 - Psychiatric Exam Psychiatric exam: Normal Affect, Normal Mood - Skin Skin Exam: Dry, Intact, Normal Color, Warm Assessment and Plan - Assessment and Plan (Free Text) Assessment: This is a 37 yo F with PMH of HIV (medication non-compliance), PCP pneumonia, neck abscess, and Hepatitis C who represented to [facility] with complaint of shortness of breath, fever, and non-productive cough, later developing hypercapnic respiratory failure and requiring intubation. 1. Elevated transaminases etiology likely shock liver 2. Hx of HIV and medication noncomplaicne with CD4 count <20 in February 2018 3. Hx of HCV s/p treatment per pt 4. VDRF s/p extubatation Plan: -Continue supportive care -Abd US notable for stable hepatomegaly/hepatic steatosis -Abd imaging negative for any abdominal pathology -Pt received two doses of NAC, but acetaminophen level negative, no further doses indicated -Pt with known hx of Hep C, will check HCV PCR viral load to determine if pt with active infection or not -Hep B serologies indicate not active, already immune -Transaminases down trending, likely from hypotension/shock liver -Monitor LFTs -Maintain MAP >65 -IV fluid hydration -Further medical therapy per primary team -Will continue to follow pt closely <Anne Centeno V - Last Filed: 05/23/18 21:55> Objective - Vital Signs/Intake and Output Vital Signs (last 24 hours): Temp Pulse Resp BP Pulse Ox 97.6 F 101 H 18 123/83 95 05/23/18 17:25 05/23/18 18:00 05/23/18 17:25 05/23/18 17:25 05/23/18 17:25 Intake and Output: 05/23/18 05/24/18 18:59 06:59 Intake Total 240 580 Output Total 800 400 Balance -560 180 - Medications Medications: Current Medications Albuterol/Ipratropium (Duoneb 3 Mg/0.5 Mg (3 Ml) Ud) 3 ml IH [id number] PRN PRN Reason: Shortness of Breath Last Admin: 05/23/18 14:24 Dose: 3 ml Arformoterol Tartrate (Brovana) 15 mcg IH [id number] [facility] Last Admin: 05/23/18 20:13 Dose: 15 mcg Budesonide (Pulmicort Respules) 0.5 mg IH [id number] [facility] Last Admin: 05/23/18 20:13 Dose: 0.5 mg Clonazepam (Klonopin) 0.5 mg PO BID PRN; Protocol PRN Reason: Anxiety Last Admin: 05/23/18 10:03 Dose: 0.5 mg Famotidine (Pepcid) 20 mg PO DAILY [facility] Last Admin: 05/23/18 09:42 Dose: 20 mg Heparin Sodium (Porcine) (Heparin) 5,000 units SC Q8 [facility] PRN Reason: Protocol Last Admin: 05/23/18 12:59 Dose: 5,000 units Clindamycin Phosphate 900 mg/ (Sodium Chloride) 106 mls @ 106 mls/hr IVPB Q8 [facility] PRN Reason: Protocol Last Admin: 05/23/18 12:59 Dose: 106 mls/hr Meropenem (Merrem Iv 1 Gm Premix) 50 mls @ 100 mls/hr IVPB Q12 [facility] PRN Reason: Protocol Last Admin: 05/23/18 09:42 Dose: 100 mls/hr Acyclovir 600 mg/ Sodium (Chloride) 100 mls @ 100 mls/hr IV Q12 [facility] PRN Reason: Protocol Last Admin: 05/23/18 09:43 Dose: 100 mls/hr Methadone HCl (Methadone) 130 mg PO DAILY [facility] Methylprednisolone (Solu-Medrol) 20 mg IVP Q12 [facility] Last Admin: 05/23/18 09:42 Dose: 20 mg Primaquine Phosphate (Primaquine) 26.3 mg PO DAILY [facility] PRN Reason: Protocol Last Admin: 05/23/18 09:44 Dose: 26.3 mg Sodium Bicarbonate (Sodium Bicarbonate Tab) 650 mg PO BID [facility] Last Admin: 05/23/18 17:03 Dose: 650 mg - Labs Labs: 05/23/18 05:50 05/23/18 05:50 PT 16.3 SECONDS (9.4-12.5) H 05/20/18 04:45 INR 1.41 (0.93-1.08) H 05/20/18 04:45 Attending/Attestation - Attestation I have personally seen and examined this patient.: Yes I have fully participated in the care of the patient.: Yes I have reviewed all pertinent clinical information, including history, physical exam and plan: Yes Notes (Text): Associated This is an addendum to GI progress report dictated by the GI Fellow.The patient was seen and examined earlier. Medical records, lab studies , imagings were reviewed. Last 24 hours events reviewed. Agreed with the above treatment plan as outlined in GI Fellow 's notes the with the addition of the following LFT shows downward trend Old hep B infection appears to be immune now Status post treatment with Harvoni for hep C follow-up LFT Hip C RNA assay 05/23/18 21:53
[2018-05-23] MEDS: Meropenem IV 1 gm in NS 50 ML IVPB SCH ×2 (09:42→23:37)
[2018-05-23] MEDS: MethylPREDNISolone 40 mg Vial IVP SCH ×2 (09:42→22:30)
[2018-05-23] MEDS: Primaquine 26.3 mg Tab PO SCH (09:44)
--- NOTE | 2018-05-23 13:05 | CP.PCM.PN ---
Subjective - Date & Time of Evaluation Date of Evaluation: 05/23/18 Time of Evaluation: 13:02 - Subjective Subjective: Nephrology Consultation Note: Assessment: stable Acute Kidney Injury (N17.9) likely due to sepsis/hypotension and pre-renal state /dehydration as evident by concentrated urine: improving abnormal LFT acute hypercapnic respi failure combined respi and metabolic acidosis Hyperphosphatemia HIV/AIDS (CD 4 count <20) non compliant to meds, hx of PCP pneumonia, IVDA, chronic Hep C, COPD chronic sys CHF LVEF 35% Plan No acute need for renal replacement therapy at this time. Cr trending down maintain hemodynamics stable. avoid hypotension. Patient not on ACEI/ARB due to BERNICE, consider to add soon in view of her CHF Monitor Input/Output, daily weights and renal function with basic metabolic panel d/c IVF. lowered sodium bicarb. may consider lasix CHF optimization ID, GI, cardiology, pulmonary following Dose meds/antibiotics for reduced GFR. Avoid fleets enema/magnesium based laxatives. Avoid nephrotoxins/NSAIDs/ iodinated contrast (unless needed emergently) Glycemic control Further work up/management as per primary team Thanks for allowing me to participate in care of your patient. Will follow patient with you. Please call if any Qs. had d/w team Dr Sesar Paez Office: [phone] Chief Complaint: unable to obtain reason for consult: BERNICE source of Info: EMR HPI: Pt is a 37 F with hx of HIV/AIDS (CD 4 count <20) non compliant to meds, hx of PCP pneumonia, IVDA, chronic Hep C, COPD presented with complaints of SOB , cough and fever, found to have sepsis, acute respi failure s/p intubation 05/19 also with BERNICE and abnormal LFT. renal consult for BERNICE management No recent iodinated contrast exposure. Noted obvious episodes of low BP. ROS: extubated. pt feels better. SOB better Physical Examination: General Appearance: Comfortable, in no acute respiratory distress. Vitals reviewed and noted as below Head; Atraumatic, normocephalic ENT: normal mucosa EYES: Pupils are equal, round and reactive to light accommodation. Eye muscles and extraocular movement intact. Sclera is anicteric. Neck; supple no lymphadenopathy, no thyromegaly or bruit Lungs: Normal respiratory rate/effort. Breath sounds bilateral equal and with exp wheeze Heart: Normal rate. s1s2 normal. No rub or gallop. Extremities: 1-2+ edema. No varicose veins Neurological: Patient is awake alert follow commands Skin: Warm and dry. Normal turgor. No rash. Palpitation: Normal elasticity for age Abdomen: Abdomen is soft. Bowel sounds +. There is no abdominal tenderness, no guarding/rigidity no organomegaly. appears distended Psych: better insight. flat affect/mood MSK: no joint tenderness or swelling. Digits and nails normal, no deformity : kidney or bladder not palpable. Labs/imaging reviewed. Past medical history, past surgical history, family history, social history, allergy reviewed and noted as below Family hx: no hx of CKD. Rest non-contributory work up: renal imaging unremarkable UA SG >1.030 Na 9 neg for ketone/blood CK normal Objective - Vital Signs/Intake and Output Vital Signs (last 24 hours): Temp Pulse Resp BP Pulse Ox 98.1 F 107 H 20 105/77 93 L 05/23/18 08:29 05/23/18 10:00 05/23/18 08:29 05/23/18 08:29 05/23/18 08:29 Intake and Output: 05/23/18 05/23/18 06:59 18:59 Intake Total 240 Output Total 800 Balance -560 - Medications Medications: Current Medications Arformoterol Tartrate (Brovana) 15 mcg IH [id number] [facility] Last Admin: 05/23/18 07:58 Dose: 15 mcg Budesonide (Pulmicort Respules) 0.5 mg IH [id number] [facility] Last Admin: 05/23/18 07:59 Dose: 0.5 mg Clonazepam (Klonopin) 0.5 mg PO BID PRN; Protocol PRN Reason: Anxiety Last Admin: 05/23/18 10:03 Dose: 0.5 mg Famotidine (Pepcid) 20 mg PO DAILY [facility] Last Admin: 05/23/18 09:42 Dose: 20 mg Heparin Sodium (Porcine) (Heparin) 5,000 units SC Q8 [facility] PRN Reason: Protocol Last Admin: 05/23/18 05:21 Dose: 5,000 units Clindamycin Phosphate 900 mg/ (Sodium Chloride) 106 mls @ 106 mls/hr IVPB Q8 [facility] PRN Reason: Protocol Last Admin: 05/23/18 05:21 Dose: 106 mls/hr Meropenem (Merrem Iv 1 Gm Premix) 50 mls @ 100 mls/hr IVPB Q12 [facility] PRN Reason: Protocol Last Admin: 05/23/18 09:42 Dose: 100 mls/hr Acyclovir 600 mg/ Sodium (Chloride) 100 mls @ 100 mls/hr IV Q12 [facility] PRN Reason: Protocol Last Admin: 05/23/18 09:43 Dose: 100 mls/hr Methadone HCl (Methadone) 130 mg PO DAILY [facility] Methylprednisolone (Solu-Medrol) 20 mg IVP Q12 [facility] Last Admin: 05/23/18 09:42 Dose: 20 mg Primaquine Phosphate (Primaquine) 26.3 mg PO DAILY [facility] PRN Reason: Protocol Last Admin: 05/23/18 09:44 Dose: 26.3 mg Sodium Bicarbonate (Sodium Bicarbonate Tab) 650 mg PO BID [facility] - Labs Labs: 05/23/18 05:50 05/23/18 05:50 PT 16.3 SECONDS (9.4-12.5) H 05/20/18 04:45 INR 1.41 (0.93-1.08) H 05/20/18 04:45
[2018-05-23] MEDS ORDERED: Albuterol-Ipratrop 3 mg / 0.5 (3 ml) UD IH PRN (14:15)
--- NOTE | 2018-05-23 17:18 | CP.PCM.PN ---
Subjective - Date & Time of Evaluation Date of Evaluation: 05/23/18 Time of Evaluation: 13:05 - Subjective Subjective: Patient still having shortness of breath and cough, no fevers, no diarrhea. Objective - Vital Signs/Intake and Output Vital Signs (last 24 hours): Temp Pulse Resp BP Pulse Ox 98.1 F 96 H 20 105/77 93 L 05/23/18 08:29 05/23/18 08:29 05/23/18 08:29 05/23/18 08:29 05/23/18 08:29 Intake and Output: 05/23/18 05/23/18 06:59 18:59 Intake Total 240 Output Total 800 Balance -560 - Medications Medications: Current Medications Arformoterol Tartrate (Brovana) 15 mcg IH [id number] [facility] Last Admin: 05/23/18 07:58 Dose: 15 mcg Budesonide (Pulmicort Respules) 0.5 mg IH [id number] [facility] Last Admin: 05/23/18 07:59 Dose: 0.5 mg Clonazepam (Klonopin) 0.5 mg PO BID PRN; Protocol PRN Reason: Anxiety Last Admin: 05/23/18 10:03 Dose: 0.5 mg Famotidine (Pepcid) 20 mg PO DAILY [facility] Last Admin: 05/23/18 09:42 Dose: 20 mg Heparin Sodium (Porcine) (Heparin) 5,000 units SC Q8 [facility] PRN Reason: Protocol Last Admin: 05/23/18 05:21 Dose: 5,000 units Clindamycin Phosphate 900 mg/ (Sodium Chloride) 106 mls @ 106 mls/hr IVPB Q8 [facility] PRN Reason: Protocol Last Admin: 05/23/18 05:21 Dose: 106 mls/hr Meropenem (Merrem Iv 1 Gm Premix) 50 mls @ 100 mls/hr IVPB Q12 [facility] PRN Reason: Protocol Last Admin: 05/23/18 09:42 Dose: 100 mls/hr Acyclovir 600 mg/ Sodium (Chloride) 100 mls @ 100 mls/hr IV Q12 [facility] PRN Reason: Protocol Last Admin: 05/23/18 09:43 Dose: 100 mls/hr Methadone HCl (Methadone) 120 mg PO DAILY [facility] Last Admin: 05/23/18 09:43 Dose: 120 mg Methylprednisolone (Solu-Medrol) 20 mg IVP Q12 [facility] Last Admin: 05/23/18 09:42 Dose: 20 mg Primaquine Phosphate (Primaquine) 26.3 mg PO DAILY [facility] PRN Reason: Protocol Last Admin: 05/23/18 09:44 Dose: 26.3 mg Sodium Bicarbonate (Sodium Bicarbonate Tab) 650 mg PO BID [facility] - Labs Labs: 05/23/18 05:50 05/23/18 05:50 PT 16.3 SECONDS (9.4-12.5) H 05/20/18 04:45 INR 1.41 (0.93-1.08) H 05/20/18 04:45 - Constitutional Appears: Chronically Ill - Head Exam Head Exam: NORMAL INSPECTION - Neck Exam Neck Exam: absent: Meningismus - Respiratory Exam Respiratory Exam: Decreased Breath Sounds - Cardiovascular Exam Cardiovascular Exam: +S1, +S2 - GI/Abdominal Exam GI & Abdominal Exam: Soft. absent: Tenderness Assessment and Plan - Assessment and Plan (Free Text) Plan: Assessment severe sepsis S/P ventilator-dependent respiratory failure, acute renal failure and acute hepatitis due to possible pneumocystis pneumonia on top of HCAP, R/O CMV, R/O HSV HIV/AIDS with last CD4 count <20, non-compliant with her meds COPD chronic back pain history of IVDA hepatitis C infection Plan continue Clindamycin and Primaquine, Merrem and Acyclovir - should rule out HSV hepatitis follow up GI evaluation and recommendations - should monitor and trend transaminases overall prognosis is poor unless patient starts taking her HIV meds ,
--- NOTE | 2018-05-24 06:40 | PN ---
Copied To: Cara Barajas MD DATE: 05/23/2018 REFERRING PHYSICIAN: Macario Carter MD SUBJECTIVE: She is lying in the bed, sleepy, arousable, earlier in the day was shortness of breath, so nebulizer DuoNeb every 6 hours started, Lasix 20 mg IV dose was given; after this, feels better. No nausea, no vomiting. No diarrhea. Does have a leg swelling. OBJECTIVE: GENERAL: In no acute distress. VITAL SIGNS: Temperature is 98, heart rate is 95, respiratory rate is 18, blood pressure 123/83, pulse ox 95% on nasal cannula. HEENT: Moist mucous membrane. No ulcer or oral thrush noted. NECK: Supple. No JVD. LUNGS: Have a few crackles, prolonged expiratory phase. HEART: S1 and S2. ABDOMEN: Soft, nontender. No organomegaly. EXTREMITIES: Does have edema. NEUROLOGICAL: Sleepy, arousable. Follows simple command. MEDICATIONS: She is on acyclovir 600 mg every 12 hours, Brovana inhaled twice a day, clindamycin 900 mg every 8 hours, Duoneb every 4 hours, heparin 5000 units subcutaneously every 8 hours, Klonopin 0.5 mg twice a day, meropenem 1 g IV every 12 hours, methadone 120 mg daily, Pepcid 20 mg daily, primaquine 26.3 mg daily, Pulmicort inhaled twice a day, bicarbonate 650 mg twice a day, Solu-Medrol 20 mg every 12 hours. LABORATORY DATA: Shows hemoglobin 10, hematocrit 32.2, WBC 7.3, platelet count is 176. Sodium 142, potassium 4.6, chloride 112, bicarbonate 25, BUN 66, creatinine 1.2, glucose 89, calcium 8.2, AST 517, ALT 887, alk phos is 91, albumin is 2.3. Sputum culture, strep pneumonia. Chest x-ray from yesterday shows stable infiltrates. No new abnormality reported. IMPRESSION AND PLAN: Acquired immune deficiency syndrome with respiratory failure, extubated, nasal cannula, chronic obstructive lung disease, cardiomyopathy, decreased LV function, pulmonary hypertension, methadone dependant, elevated liver enzymes which is improving. Spoke to nursing staff. Continue bronchodilator, keep head at 45 degrees, continue steroids, antibiotics, careful with fluid, has cardiomyopathy and heart failure, may use p.r.n. Lasix, Follow up labs in the morning. Fall precautions. Thank you and we will follow with you. Cara Barajas MD
--- NOTE | 2018-05-24 07:47 | CP.PCM.PN ---
Subjective - Date & Time of Evaluation Date of Evaluation: 05/24/18 Time of Evaluation: 06:35 - Subjective Subjective: Sleeping but easily awaken, mild shortness of breath,on nasal cannula Reason for consultation and follow up: Cardiac evaluation for shortness of breath, respiratory failure, post intubation Seen and examined by me and Dr. Veliz Objective - Vital Signs/Intake and Output Vital Signs (last 24 hours): Temp Pulse Resp BP Pulse Ox 98.3 F 87 18 116/83 95 05/24/18 00:00 05/24/18 06:00 05/24/18 00:00 05/24/18 00:00 05/24/18 00:00 Intake and Output: 05/24/18 05/24/18 06:59 18:59 Intake Total 930 Output Total 400 Balance 530 - Medications Medications: Current Medications Albuterol/Ipratropium (Duoneb 3 Mg/0.5 Mg (3 Ml) Ud) 3 ml IH [id number] PRN PRN Reason: Shortness of Breath Last Admin: 05/23/18 14:24 Dose: 3 ml Arformoterol Tartrate (Brovana) 15 mcg IH [id number] EDSON Last Admin: 05/23/18 20:13 Dose: 15 mcg Budesonide (Pulmicort Respules) 0.5 mg IH [id number] EDSON Last Admin: 05/23/18 20:13 Dose: 0.5 mg Clonazepam (Klonopin) 0.5 mg PO BID PRN; Protocol PRN Reason: Anxiety Last Admin: 05/23/18 10:03 Dose: 0.5 mg Famotidine (Pepcid) 20 mg PO DAILY [facility] Last Admin: 05/23/18 09:42 Dose: 20 mg Heparin Sodium (Porcine) (Heparin) 5,000 units SC Q8 EDSON PRN Reason: Protocol Last Admin: 05/24/18 05:20 Dose: 5,000 units Clindamycin Phosphate 900 mg/ (Sodium Chloride) 106 mls @ 106 mls/hr IVPB Q8 EDSON PRN Reason: Protocol Last Admin: 05/24/18 05:18 Dose: 106 mls/hr Meropenem (Merrem Iv 1 Gm Premix) 50 mls @ 100 mls/hr IVPB Q12 EDSON PRN Reason: Protocol Last Admin: 05/23/18 23:37 Dose: 100 mls/hr Acyclovir 600 mg/ Sodium (Chloride) 100 mls @ 100 mls/hr IV Q12 EDSON PRN Reason: Protocol Last Admin: 05/24/18 01:18 Dose: 100 mls/hr Methadone HCl (Methadone) 130 mg PO DAILY [facility] Methylprednisolone (Solu-Medrol) 20 mg IVP Q12 [facility] Last Admin: 05/23/18 22:30 Dose: 20 mg Primaquine Phosphate (Primaquine) 26.3 mg PO DAILY EDSON PRN Reason: Protocol Last Admin: 05/23/18 09:44 Dose: 26.3 mg Sodium Bicarbonate (Sodium Bicarbonate Tab) 650 mg PO BID EDSON Last Admin: 05/23/18 17:03 Dose: 650 mg - Labs Labs: 05/23/18 05:50 05/23/18 05:50 PT 16.3 SECONDS (9.4-12.5) H 05/20/18 04:45 INR 1.41 (0.93-1.08) H 05/20/18 04:45 - Eye Exam Eye Exam: Normal appearance - ENT Exam ENT Exam: Mucous Membranes Moist - Respiratory Exam Respiratory Exam: Decreased Breath Sounds, NORMAL BREATHING PATTERN - Cardiovascular Exam Cardiovascular Exam: +S1, +S2 - GI/Abdominal Exam GI & Abdominal Exam: Soft, Normal Bowel Sounds - Extremities Exam Extremities Exam: Normal Capillary Refill - Neurological Exam Neurological Exam: Alert, Awake, Oriented x3 - Psychiatric Exam Psychiatric exam: Normal Affect - Skin Skin Exam: Intact, Warm Assessment and Plan - Assessment and Plan (Free Text) Assessment: A 37 year old female who was admitted to ICU from ED due to respiratory failure requiring intubation, History of PCP, pneumonia, HIV (non-compliant with medication), neck abscess, and Hepatitis C.COPD, pulmonary hypertension, methadone dependent. Recent ECHO moderate systolic dysfunction LVEF 35%. Transferred to telemetry after successful extubation. Plan: Sleeping on nasal cannula In bed, mild shortness of breath Pulmonary on consult Stable blood pressure and heart rate On IV antibiotics per ID (sputum-steptococcus pneumoniae) Continue current treatment Continue current medications Will follow up Plan and treatment discussed with Dr. Veliz
[2018-05-24] MEDS: Budesonide 0.5 mg/2 ml Inhal Susp UD IH SCH ×2 (07:52→20:11)
[2018-05-24] MEDS: Arformoterol 15 mcg/2 ml Inh Sol IH SCH ×2 (07:52→20:10)
[2018-05-24 08:19] LABS: ALB/GLOB RATIO 0.6 (1.1-1.8); ALBUMIN 2.2 g/dL (3.0-4.8); ALT/SGPT 600 U/L (7-56); AST/SGOT 209 U/L (14-36); BLOOD UREA NITROGEN 40 mg/dL (7-21); CALCIUM 8.5 mg/dL (8.4-10.5); GFR AFRICAN-AMERICAN > 60; GFR NON-AFRICAN AMERICAN > 60
--- NOTE | 2018-05-24 08:19 | CP.PCM.PN ---
<Channing,Laura - Last Filed: 05/24/18 18:58> Subjective - Date & Time of Evaluation Date of Evaluation: 05/24/18 Time of Evaluation: 07:00 - Subjective Subjective: GI Fellow PGY5 Progress Note Pt seen and evaluated at bedside, doing well with no abdominal pain, tolerating diet, +BM. ROS: A 12pt ROS was negative except as above Objective - Vital Signs/Intake and Output Vital Signs (last 24 hours): Temp Pulse Resp BP Pulse Ox 98.3 F 87 18 116/83 95 05/24/18 00:00 05/24/18 06:00 05/24/18 00:00 05/24/18 00:00 05/24/18 00:00 Intake and Output: 05/24/18 05/24/18 06:59 18:59 Intake Total 930 Output Total 400 Balance 530 - Medications Medications: Current Medications Albuterol/Ipratropium (Duoneb 3 Mg/0.5 Mg (3 Ml) Ud) 3 ml IH [id number] PRN PRN Reason: Shortness of Breath Last Admin: 05/23/18 14:24 Dose: 3 ml Arformoterol Tartrate (Brovana) 15 mcg IH [id number] EDSON Last Admin: 05/24/18 07:52 Dose: 15 mcg Budesonide (Pulmicort Respules) 0.5 mg IH [id number] EDSON Last Admin: 05/24/18 07:52 Dose: 0.5 mg Clonazepam (Klonopin) 0.5 mg PO BID PRN; Protocol PRN Reason: Anxiety Last Admin: 05/23/18 10:03 Dose: 0.5 mg Famotidine (Pepcid) 20 mg PO DAILY [facility] Last Admin: 05/23/18 09:42 Dose: 20 mg Heparin Sodium (Porcine) (Heparin) 5,000 units SC Q8 EDSON PRN Reason: Protocol Last Admin: 05/24/18 05:20 Dose: 5,000 units Clindamycin Phosphate 900 mg/ (Sodium Chloride) 106 mls @ 106 mls/hr IVPB Q8 EDSON PRN Reason: Protocol Last Admin: 05/24/18 05:18 Dose: 106 mls/hr Meropenem (Merrem Iv 1 Gm Premix) 50 mls @ 100 mls/hr IVPB Q12 EDSON PRN Reason: Protocol Last Admin: 05/23/18 23:37 Dose: 100 mls/hr Acyclovir 600 mg/ Sodium (Chloride) 100 mls @ 100 mls/hr IV Q12 EDSON PRN Reason: Protocol Last Admin: 05/24/18 01:18 Dose: 100 mls/hr Methadone HCl (Methadone) 130 mg PO DAILY [facility] Methylprednisolone (Solu-Medrol) 20 mg IVP Q12 EDSON Last Admin: 05/23/18 22:30 Dose: 20 mg Primaquine Phosphate (Primaquine) 26.3 mg PO DAILY EDSON PRN Reason: Protocol Last Admin: 05/23/18 09:44 Dose: 26.3 mg Sodium Bicarbonate (Sodium Bicarbonate Tab) 650 mg PO BID EDSON Last Admin: 05/23/18 17:03 Dose: 650 mg - Labs Labs: 05/23/18 05:50 05/23/18 05:50 PT 16.3 SECONDS (9.4-12.5) H 05/20/18 04:45 INR 1.41 (0.93-1.08) H 05/20/18 04:45 - Constitutional Appears: Non-toxic, No Acute Distress - Head Exam Head Exam: ATRAUMATIC, NORMAL INSPECTION, NORMOCEPHALIC - Eye Exam Eye Exam: EOMI, Normal appearance, PERRL Pupil Exam: PERRL - ENT Exam ENT Exam: Mucous Membranes Moist, Normal Exam - Neck Exam Neck Exam: Full ROM, Normal Inspection - Respiratory Exam Respiratory Exam: Clear to Ausculation Bilateral, NORMAL BREATHING PATTERN - Cardiovascular Exam Cardiovascular Exam: REGULAR RHYTHM, RRR, +S1, +S2 - GI/Abdominal Exam GI & Abdominal Exam: Soft, Normal Bowel Sounds. absent: Tenderness, Organomegaly - Rectal Exam Rectal Exam: Deferred - Extremities Exam Extremities Exam: Full ROM, Normal Inspection - Neurological Exam Neurological Exam: Alert, Awake, Oriented x3 - Psychiatric Exam Psychiatric exam: Normal Affect, Normal Mood - Skin Skin Exam: Dry, Intact, Normal Color, Warm Assessment and Plan - Assessment and Plan (Free Text) Assessment: This is a 37 yo F with PMH of HIV (medication non-compliance), PCP pneumonia, neck abscess, and Hepatitis C who represented to [facility] with complaint of shortness of breath, fever, and non-productive cough, later developing hypercapnic respiratory failure and requiring intubation. 1. Elevated transaminases etiology likely shock liver 2. Hx of HIV and medication noncomplaicne with CD4 count <20 in February 2018 3. Hx of HCV s/p treatment per pt 4. VDRF s/p extubatation Plan: -Continue supportive care -Abd US notable for stable hepatomegaly/hepatic steatosis -Abd imaging negative for any abdominal pathology -Pt received two doses of NAC, but acetaminophen level negative, no further doses indicated -Pt with known hx of Hep C, treated with Harvoni -HCV PCR viral load pending -Hep B serologies indicate not active, already immune -Transaminases down trending, likely from hypotension/shock liver -Monitor LFTs -Maintain MAP >65 -IV fluid hydration -Further medical therapy per primary team -Will continue to follow pt closely <Anne Centeno V - Last Filed: 05/24/18 22:42> Objective - Vital Signs/Intake and Output Vital Signs (last 24 hours): Temp Pulse Resp BP Pulse Ox 98.8 F 102 H 20 111/82 91 L 05/24/18 17:48 05/24/18 18:00 05/24/18 17:48 05/24/18 17:48 05/24/18 17:48 Intake and Output: 05/24/18 05/25/18 18:59 06:59 Intake Total 720 Balance 720 - Medications Medications: Current Medications Acetylcysteine (Acetylcysteine 20%) 3 ml IH BID EDSON Albuterol/Ipratropium (Duoneb 3 Mg/0.5 Mg (3 Ml) Ud) 3 ml IH [id number] PRN PRN Reason: Shortness of Breath Last Admin: 05/23/18 14:24 Dose: 3 ml Albuterol/Ipratropium (Duoneb 3 Mg/0.5 Mg (3 Ml) Ud) 3 ml IH [id number] EDSON Last Admin: 05/24/18 20:11 Dose: 3 ml Arformoterol Tartrate (Brovana) 15 mcg IH [id number] EDSON Last Admin: 05/24/18 20:10 Dose: 15 mcg Budesonide (Pulmicort Respules) 0.5 mg IH [id number] EDSON Last Admin: 05/24/18 20:11 Dose: 0.5 mg Clonazepam (Klonopin) 0.5 mg PO BID PRN; Protocol PRN Reason: Anxiety Last Admin: 05/23/18 10:03 Dose: 0.5 mg Famotidine (Pepcid) 20 mg PO DAILY EDSON Last Admin: 05/24/18 09:37 Dose: 20 mg Furosemide (Lasix) 20 mg PO DAILY EDSON Last Admin: 05/24/18 13:07 Dose: 20 mg Heparin Sodium (Porcine) (Heparin) 5,000 units SC Q8 EDSON PRN Reason: Protocol Last Admin: 05/24/18 21:05 Dose: 5,000 units Clindamycin Phosphate 900 mg/ (Sodium Chloride) 106 mls @ 106 mls/hr IVPB Q8 EDSON PRN Reason: Protocol Last Admin: 05/24/18 21:01 Dose: 106 mls/hr Meropenem (Merrem Iv 1 Gm Premix) 50 mls @ 100 mls/hr IVPB Q12 EDSON PRN Reason: Protocol Last Admin: 05/24/18 21:04 Dose: 100 mls/hr Acyclovir 600 mg/ Sodium (Chloride) 100 mls @ 100 mls/hr IV Q12 EDSON PRN Reason: Protocol Last Admin: 05/24/18 21:00 Dose: 100 mls/hr Losartan Potassium (Cozaar) 25 mg PO DAILY EDSON Last Admin: 05/24/18 13:07 Dose: 25 mg Methadone HCl (Methadone) 130 mg PO DAILY [facility] Last Admin: 05/24/18 09:38 Dose: 130 mg Methylprednisolone (Solu-Medrol) 20 mg IVP Q12 EDSON Last Admin: 05/24/18 21:05 Dose: 20 mg Primaquine Phosphate (Primaquine) 26.3 mg PO DAILY EDSON PRN Reason: Protocol Last Admin: 05/24/18 09:37 Dose: 26.3 mg - Labs Labs: 05/23/18 05:50 05/24/18 07:30 PT 16.3 SECONDS (9.4-12.5) H 05/20/18 04:45 INR 1.41 (0.93-1.08) H 05/20/18 04:45 Attending/Attestation - Attestation I have personally seen and examined this patient.: Yes I have fully participated in the care of the patient.: Yes I have reviewed all pertinent clinical information, including history, physical exam and plan: Yes Notes (Text): This is an addendum to GI progress report dictated by the GI Fellow.The patient was seen and examined earlier. Medical records, lab studies, imagings were reviewed. Last 24 hours events reviewed. Agreed with the above treatment plan as outlined in GI Fellow 's notes the with the addition of the following patient appeared more comfortable Did not complaining of abdooinal pain LFTs shows downward trend recommended to follow-up Hepatitis C PCR pending status post treatment with Taylor 05/24/18 22:40
[2018-05-24] MEDS: Meropenem IV 1 gm in NS 50 ML IVPB SCH ×2 (09:36→21:04)
[2018-05-24] MEDS: MethylPREDNISolone 40 mg Vial IVP SCH ×2 (09:37→21:05)
[2018-05-24] MEDS: Primaquine 26.3 mg Tab PO SCH (09:37)
--- NOTE | 2018-05-24 10:41 | PN ---
Copied To: Macario Carter MD Attending MD: Macario Carter MD. DATE: 05/23/2018 SUBJECTIVE: Patient is sitting on the chair. She does complain of withdrawal symptoms from methadone. Her breathing is better. No chest pain. No fever. PHYSICAL EXAMINATION: VITAL SIGNS: Temperature 97.6, heart rate 95, blood pressure 123/83, respirations 18, sat 95% on room air on 2 liters. HEAD AND NECK: Normal. No JVD. No thyromegaly. CHEST: Bilaterally clear. There is a few basilar rhonchi, right more than left. CARDIAC: First sound and second sound normal. No murmur, rub or gallop. ABDOMEN: Soft and nontender. EXTREMITIES: There is mild edema bilaterally. NEUROLOGIC: She is alert, awake, oriented x3. She moves all extremities, but generally weak. DATA: Laboratory study shows white count 7.3, hemoglobin 10, hematocrit 32.2, platelets 176. Chemistry showed sodium 142; potassium 4.6; chloride 112; bicarb 25; BUN 66; creatinine is 1.2, which is normal. Patient also had blood sugar 124. She had calcium 7.8. Her liver enzyme is improving a lot. AST , ALT 887. Alkaline phosphatase is normal. The patient has low albumin. IMPRESSION AND PLAN: 1. Patient has advanced age with recurrent pneumocystis pneumonia, noncompliance. Continue clindamycin. Continue intravenous steroids and also primaquine 26.3 p.o. daily. Continue inhaled bronchodilators. 2. Patient does have chronic obstructive pulmonary disease with acute exacerbation. Continue current therapy, inhaled and intravenous bronchodilators plus oxygen. 3. Acute kidney failure, improved. Creatinine back to normal. Continue to monitor. She is in a small dose of intravenous fluid, which was discontinued because of leg edema. 4. Community-acquired pneumonia. Continue meropenem and doing better and patient is also getting acyclovir 600 every 12 hours. 5. Patient does have a history of drug abuse and methadone. We will increase methadone from 120 to 130 mg daily. I did advise the patient she need to decrease her methadone because of the liver functions and we agreed to 130. Initially, she was taking 150, then we will decreased to 140. It seems okay with 130 mg daily, she should maintain that. 6. General weakness, history of chronic anxiety. Continue Klonopin 0.5 mg b.i.d. We will start physical therapy. Continue current medications. CURRENT MEDICATIONS: Acyclovir 600 b.i.d. IV, Brovana, clindamycin 600 every 8 hours, DuoNeb, heparin subcu, clonazepam 0.5 b.i.d., meropenem 1 g IV every 12 hours, methadone 130, Pepcid 20 p.o. daily, primaquine 26.3 mg p.o. daily, Pulmicort, sodium bicarbonate 650 p.o. b.i.d. Solu-Medrol 20 IV every 12 hours, it is being decreased. Continue current management. Macario Carter MD
[2018-05-24] MEDS: Albuterol-Ipratrop 3 mg / 0.5 (3 ml) UD IH SCH ×2 (13:21→20:11)
--- NOTE | 2018-05-24 14:36 | CP.PCM.PN ---
Subjective - Date & Time of Evaluation Date of Evaluation: 05/24/18 Time of Evaluation: 14:35 - Subjective Subjective: Nephrology Consultation Note: Assessment: stable Acute Kidney Injury (N17.9) likely due to sepsis/hypotension and pre-renal state /dehydration as evident by concentrated urine: resolved abnormal LFT acute hypercapnic respi failure combined respi and metabolic acidosis Hyperphosphatemia HIV/AIDS (CD 4 count <20) non compliant to meds, hx of PCP pneumonia, IVDA, chronic Hep C, COPD chronic sys CHF LVEF 35% Plan maintain hemodynamics stable. avoid hypotension. Patient not on ACEI/ARB due to BERNICE, since BERNICE resolved now, added losartan 25 mg/day Monitor Input/Output, daily weights and renal function with basic metabolic panel stop sodium bicarb added lasix CHF optimization ID, GI, cardiology, pulmonary following Dose meds/antibiotics for improved GFR. Glycemic control Further work up/management as per primary team Thanks for allowing me to participate in care of your patient. Please call if any Qs. had d/w team Dr Sesar Paez Office: [phone] HPI: Pt is a 37 F with hx of HIV/AIDS (CD 4 count <20) non compliant to meds, hx of PCP pneumonia, IVDA, chronic Hep C, COPD presented with complaints of SOB , cough and fever, found to have sepsis, acute respi failure s/p intubation 05/19 also with BERNICE and abnormal LFT. renal consult for BERNICE management No recent iodinated contrast exposure. Noted obvious episodes of low BP. ROS: extubated. pt feels better. SOB better but sitll + Physical Examination: General Appearance: Comfortable, in no acute respiratory distress. Vitals reviewed and noted as below Head; Atraumatic, normocephalic ENT: normal mucosa EYES: Pupils are equal, round and reactive to light accommodation. Eye muscles and extraocular movement intact. Sclera is anicteric. Neck; supple no lymphadenopathy, no thyromegaly or bruit Lungs: Normal respiratory rate/effort. Breath sounds bilateral equal with crackles at base and with exp wheeze Heart: Normal rate. s1s2 normal. No rub or gallop. Extremities: 1-2+ edema. No varicose veins Neurological: Patient is awake alert follow commands Skin: Warm and dry. Normal turgor. No rash. Palpitation: Normal elasticity for age Abdomen: Abdomen is soft. Bowel sounds +. There is no abdominal tenderness, no guarding/rigidity no organomegaly. appears distended Psych: better insight. flat affect/mood MSK: no joint tenderness or swelling. Digits and nails normal, no deformity : kidney or bladder not palpable. Labs/imaging reviewed. Past medical history, past surgical history, family history, social history, allergy reviewed and noted as below Family hx: no hx of CKD. Rest non-contributory work up: renal imaging unremarkable UA SG >1.030 Na 9 neg for ketone/blood CK normal Objective - Vital Signs/Intake and Output Vital Signs (last 24 hours): Temp Pulse Resp BP Pulse Ox 98 F 95 H 18 116/80 96 05/24/18 08:37 05/24/18 13:07 05/24/18 08:37 05/24/18 13:07 05/24/18 08:37 Intake and Output: 05/24/18 05/24/18 06:59 18:59 Intake Total 930 Output Total 400 Balance 530 - Medications Medications: Current Medications Acetylcysteine (Acetylcysteine 20%) 3 ml IH BID EDSON Albuterol/Ipratropium (Duoneb 3 Mg/0.5 Mg (3 Ml) Ud) 3 ml IH [id number] PRN PRN Reason: Shortness of Breath Last Admin: 05/23/18 14:24 Dose: 3 ml Albuterol/Ipratropium (Duoneb 3 Mg/0.5 Mg (3 Ml) Ud) 3 ml IH [id number] EDSON Last Admin: 05/24/18 13:21 Dose: 3 ml Arformoterol Tartrate (Brovana) 15 mcg IH [id number] EDOSN Last Admin: 05/24/18 07:52 Dose: 15 mcg Budesonide (Pulmicort Respules) 0.5 mg IH [id number] [facility] Last Admin: 05/24/18 07:52 Dose: 0.5 mg Clonazepam (Klonopin) 0.5 mg PO BID PRN; Protocol PRN Reason: Anxiety Last Admin: 05/23/18 10:03 Dose: 0.5 mg Famotidine (Pepcid) 20 mg PO DAILY [facility] Last Admin: 05/24/18 09:37 Dose: 20 mg Furosemide (Lasix) 20 mg PO DAILY [facility] Last Admin: 05/24/18 13:07 Dose: 20 mg Heparin Sodium (Porcine) (Heparin) 5,000 units SC Q8 EDSON PRN Reason: Protocol Last Admin: 05/24/18 13:07 Dose: 5,000 units Clindamycin Phosphate 900 mg/ (Sodium Chloride) 106 mls @ 106 mls/hr IVPB Q8 EDSON PRN Reason: Protocol Last Admin: 05/24/18 13:57 Dose: 106 mls/hr Meropenem (Merrem Iv 1 Gm Premix) 50 mls @ 100 mls/hr IVPB Q12 EDSON PRN Reason: Protocol Last Admin: 05/24/18 09:36 Dose: 100 mls/hr Acyclovir 600 mg/ Sodium (Chloride) 100 mls @ 100 mls/hr IV Q12 EDSON PRN Reason: Protocol Last Admin: 05/24/18 09:36 Dose: 100 mls/hr Losartan Potassium (Cozaar) 25 mg PO DAILY E[facility]ON Last Admin: 05/24/18 13:07 Dose: 25 mg Methadone HCl (Methadone) 130 mg PO DAILY [facility] Last Admin: 05/24/18 09:38 Dose: 130 mg Methylprednisolone (Solu-Medrol) 20 mg IVP Q12 EDSON Last Admin: 05/24/18 09:37 Dose: 20 mg Primaquine Phosphate (Primaquine) 26.3 mg PO DAILY EDSON PRN Reason: Protocol Last Admin: 05/24/18 09:37 Dose: 26.3 mg - Labs Labs: 05/23/18 05:50 05/24/18 07:30 PT 16.3 SECONDS (9.4-12.5) H 05/20/18 04:45 INR 1.41 (0.93-1.08) H 05/20/18 04:45
[2018-05-24 17:48] VITALS: RESP 20
[2018-05-24] MEDS ORDERED: Acetylcysteine 20% Inhal Soln (4ml) IH SCH (18:00)
[2018-05-24] MEDS ORDERED: Acetylcysteine 20% Inhal Soln (4ml) PO SCH (18:00)
[2018-05-24 22:53] LABS: SPECIMEN SOURCE Plasma
[2018-05-25] MEDS: Albuterol-Ipratrop 3 mg / 0.5 (3 ml) UD IH SCH ×3 (02:50→13:49)
--- NOTE | 2018-05-25 03:48 | PN ---
Copied To: Cara Barajas MD Attending MD: Cara Barajas MD DATE: 05/24/2018 PULMONARY PROGRESS NOTE REFERRING PHYSICIAN: Macario Carter MD. SUBJECTIVE: The patient is lying in the bed, head at 45 degrees. Awake, alert. Still gets short of breath with exertion. Mild cough. No nausea. No vomiting. No diarrhea. Decreased leg swelling. PHYSICAL EXAMINATION: GENERAL: In no acute distress. VITAL SIGNS: Temp is 98, heart rate is 102, respiratory rate is 20, blood pressure 111/82, pulse ox 91% on room air. HEENT: Moist mucous membrane. Crowded airway. NECK: Supple. No JVD. LUNGS: Have a few crackles. Prolonged expiratory phase with rhonchi. HEART: S1 and S2. ABDOMEN: Soft, nontender. No organomegaly. EXTREMITIES: There is still edema. NEUROLOGICAL: Awake, alert. Follows simple command. MEDICATIONS: She is on Mucomyst inhaler twice a day, acyclovir 600 mg twice a day, Brovana inhaled twice a day, clindamycin 900 mg every 8 hours, Cozaar 25 mg daily, DuoNeb every 4 hours p.r.n., heparin 5000 units subcutaneously every 8 hours, Klonopin 0.5 mg twice a day, Lasix 20 mg daily, meropenem 1 g IV every 12 hours, methadone 130 mg daily, Pepcid 20 mg daily, primaquine 26.3 mg daily, Pulmicort inhaled twice a day and Solu-Medrol 20 mg every 12 hours. LABORATORY DATA: Reviewed and serum sodium 142, potassium 4.4, chloride 111, bicarbonate 29, BUN is 40, creatinine 0.8, glucose is 90, and calcium is 8.5. AST 209, ALT 600, alk phos is 78. Albumin is 2.2. Microbiology: Sputum culture, strep pneumonia. IMPRESSION AND PLAN: Status post respiratory failure extubated on nasal cannula, chronic obstructive lung disease, cardiomyopathy with decreased left ventricular function, pulmonary hypertension, methadone dependant, substance abuse; elevated liver enzymes, slowly improving; kidney function, slowly improving. Pulmonary point of view, doing okay. Continue bronchodilator. Keep head at 45 degrees. Antibiotics. IV and inhaled bronchodilator. Gastric prophylaxis. Deep vein thrombosis prophylaxis. Follow up labs in the morning. Fall precautions. We will suggest to get her physical therapy . Thank you and we will follow with you. Cara Barajas MD [facility] # [id number]
--- NOTE | 2018-05-25 06:17 | PN ---
Copied To: Cheikh Chou MD Attending MD: Cheikh Chou MD DATE: 05/24/2018 SUBJECTIVE: The patient is in bed, in no acute distress, nontoxic. PHYSICAL EXAMINATION: VITAL SIGNS: Temperature is 98, blood pressure is 116/80, and respiratory rate of 18. HEENT: Unremarkable. NECK: Supple. LUNGS: Decreased breath sounds. HEART: Normal S1, S2. ABDOMEN: Soft. LABORATORY EXAMINATION: Reveals a white count of 7.3, hemoglobin of 10. Chemistries reveal a BUN of 40, creatinine of 0.8. Procalcitonin 0.33. Toxicology is noted and positive 1, 3 beta D . Microbiology reveals the sputum culture with Strep pneumonia. The blood cultures are negative. Strep pneumonia DEO is penicillin resistant with moxifloxacin sensitive. Review of orders reveals the patient to be on clindamycin, meropenem, primaquine. The patient is also on IV acyclovir. 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 Herpes simplex virus hepatitis need to be ruled out. The patient is clinically much improved. We will continue present course as issues of this patient regarding the compliance, further education and perhaps supervision of her medications may yield better compliance in a home care situation. Cheikh Chou MD
--- NOTE | 2018-05-25 07:40 | CP.PCM.PN ---
<Channing,Laura - Last Filed: 05/25/18 10:50> Subjective - Date & Time of Evaluation Date of Evaluation: 05/25/18 Time of Evaluation: 07:20 - Subjective Subjective: GI Fellow PGY5 Progress Note Pt seen and evaluated at bedside, pt doing well with no complaints of abdominal pain, no N/V, tolerating diet. +BM ROS: A 12pt ROS was negative except as above. Objective - Vital Signs/Intake and Output Vital Signs (last 24 hours): Temp Pulse Resp BP Pulse Ox 98.8 F 92 H 20 111/82 91 L 05/24/18 17:48 05/25/18 06:00 05/24/18 17:48 05/24/18 17:48 05/24/18 17:48 Intake and Output: 05/25/18 05/25/18 06:59 18:59 Intake Total 350 Balance 350 - Medications Medications: Current Medications Acetylcysteine (Acetylcysteine 20%) 3 ml IH BID [facility] Albuterol/Ipratropium (Duoneb 3 Mg/0.5 Mg (3 Ml) Ud) 3 ml IH [id number] PRN PRN Reason: Shortness of Breath Last Admin: 05/23/18 14:24 Dose: 3 ml Albuterol/Ipratropium (Duoneb 3 Mg/0.5 Mg (3 Ml) Ud) 3 ml IH [id number] [facility] Last Admin: 05/25/18 02:50 Dose: 3 ml Arformoterol Tartrate (Brovana) 15 mcg IH [id number] [facility] Last Admin: 05/24/18 20:10 Dose: 15 mcg Budesonide (Pulmicort Respules) 0.5 mg IH [id number] [facility] Last Admin: 05/24/18 20:11 Dose: 0.5 mg Clonazepam (Klonopin) 0.5 mg PO BID PRN; Protocol PRN Reason: Anxiety Last Admin: 05/23/18 10:03 Dose: 0.5 mg Famotidine (Pepcid) 20 mg PO DAILY [facility] Last Admin: 05/24/18 09:37 Dose: 20 mg Furosemide (Lasix) 20 mg PO DAILY [facility] Last Admin: 05/24/18 13:07 Dose: 20 mg Heparin Sodium (Porcine) (Heparin) 5,000 units SC Q8 [facility] PRN Reason: Protocol Last Admin: 05/25/18 05:03 Dose: 5,000 units Clindamycin Phosphate 900 mg/ (Sodium Chloride) 106 mls @ 106 mls/hr IVPB Q8 [facility] PRN Reason: Protocol Last Admin: 05/25/18 05:03 Dose: 106 mls/hr Meropenem (Merrem Iv 1 Gm Premix) 50 mls @ 100 mls/hr IVPB Q12 [facility] PRN Reason: Protocol Last Admin: 05/24/18 21:04 Dose: 100 mls/hr Acyclovir 600 mg/ Sodium (Chloride) 100 mls @ 100 mls/hr IV Q12 [facility] PRN Reason: Protocol Last Admin: 05/24/18 21:00 Dose: 100 mls/hr Losartan Potassium (Cozaar) 25 mg PO DAILY [facility] Last Admin: 05/24/18 13:07 Dose: 25 mg Methadone HCl (Methadone) 130 mg PO DAILY [facility] Last Admin: 05/24/18 09:38 Dose: 130 mg Methylprednisolone (Solu-Medrol) 20 mg IVP Q12 [facility] Last Admin: 05/24/18 21:05 Dose: 20 mg Primaquine Phosphate (Primaquine) 26.3 mg PO DAILY [facility] PRN Reason: Protocol Last Admin: 05/24/18 09:37 Dose: 26.3 mg - Labs Labs: 05/23/18 05:50 05/24/18 07:30 PT 16.3 SECONDS (9.4-12.5) H 05/20/18 04:45 INR 1.41 (0.93-1.08) H 05/20/18 04:45 - Constitutional Appears: Non-toxic, No Acute Distress - Head Exam Head Exam: ATRAUMATIC, NORMAL INSPECTION, NORMOCEPHALIC - Eye Exam Eye Exam: EOMI, Normal appearance, PERRL - ENT Exam ENT Exam: Mucous Membranes Moist - Neck Exam Neck Exam: Full ROM, Normal Inspection - Respiratory Exam Respiratory Exam: Clear to Ausculation Bilateral, NORMAL BREATHING PATTERN - Cardiovascular Exam Cardiovascular Exam: RRR, +S1, +S2 - GI/Abdominal Exam GI & Abdominal Exam: Soft, Normal Bowel Sounds. absent: Distended, Firm, Guarding, Tenderness, Organomegaly - Rectal Exam Rectal Exam: Deferred - Extremities Exam Extremities Exam: Full ROM, Normal Inspection - Neurological Exam Neurological Exam: Alert, Awake, Oriented x3 - Psychiatric Exam Psychiatric exam: Normal Affect, Normal Mood - Skin Skin Exam: Dry, Intact, Normal Color, Warm Assessment and Plan - Assessment and Plan (Free Text) Assessment: This is a 37 yo F with PMH of HIV (medication non-compliance), PCP pneumonia, neck abscess, and Hepatitis C [place] [facility] [place] complaint of shortness of breath, fever, and non-productive cough, later developing hypercapnic respiratory failure and requiring intubation. 1. Elevated transaminases etiology likely shock liver-improving 2. Hx of HIV and medication noncomplaicne with CD4 count <20 in February 2018 3. Hx of HCV s/p treatment with Harvoni per pt 4. VDRF s/p extubatation Plan: -Continue supportive care -Abd US hepatomegaly/hepatic steatosis -Pt with known hx of Hep C, treated with Harvoni -HCV PCR viral load pending -Hep B serologies indicate not active, already immune, viral load undetectable -Transaminases down trending, likely from hypotension/shock liver -Monitor LFTs -Maintain MAP >65 -IV fluid hydration -Further medical therapy per primary team -Will continue to follow pt closely <Anne Centeno V - Last Filed: 05/25/18 22:30> Objective - Vital Signs/Intake and Output Vital Signs (last 24 hours): Temp Pulse Resp BP Pulse Ox 97.9 F 87 20 114/81 96 05/25/18 06:00 05/25/18 06:00 05/25/18 06:00 05/25/18 09:40 05/25/18 06:00 - Labs Labs: 05/23/18 05:50 05/24/18 07:30 PT 16.3 SECONDS (9.4-12.5) H 05/20/18 04:45 INR 1.41 (0.93-1.08) H 05/20/18 04:45 Attending/Attestation - Attestation I have personally seen and examined this patient.: Yes I have fully participated in the care of the patient.: Yes I have reviewed all pertinent clinical information, including history, physical exam and plan: Yes Notes (Text): This is an addendum to GI followup report dictated by the Production Planning Manager. The patient was seen an that we need to change it here d examined earlier. Medical records, lab studies, imagings were reviewed. Last 24 hours events reviewed. Agreed with the above treatment plan as outlined in Production Planning Manager 's notes with the addition of the following hep C RNA is pending LFT improving Patient was advised to followup with ID 05/25/18 22:29
--- NOTE | 2018-05-25 08:00 | CP.PCM.PN ---
Subjective - Date & Time of Evaluation Date of Evaluation: 05/25/18 Time of Evaluation: 06:25 - Subjective Subjective: awake,lying in bed,comfortable, on nasal cannula Reason for consultation and follow up: Cardiac evaluation for shortness of breath, respiratory failure, post intubation Seen and examined by me and Dr. Veliz Objective - Vital Signs/Intake and Output Vital Signs (last 24 hours): Temp Pulse Resp BP Pulse Ox 98.8 F 92 H 20 111/82 91 L 05/24/18 17:48 05/25/18 06:00 05/24/18 17:48 05/24/18 17:48 05/24/18 17:48 Intake and Output: 05/25/18 05/25/18 06:59 18:59 Intake Total 350 Balance 350 - Medications Medications: Current Medications Acetylcysteine (Acetylcysteine 20%) 3 ml IH BID [facility] Albuterol/Ipratropium (Duoneb 3 Mg/0.5 Mg (3 Ml) Ud) 3 ml IH [id number] PRN PRN Reason: Shortness of Breath Last Admin: 05/23/18 14:24 Dose: 3 ml Albuterol/Ipratropium (Duoneb 3 Mg/0.5 Mg (3 Ml) Ud) 3 ml IH [id number] [facility] Last Admin: 05/25/18 02:50 Dose: 3 ml Arformoterol Tartrate (Brovana) 15 mcg IH [id number] [facility] Last Admin: 05/24/18 20:10 Dose: 15 mcg Budesonide (Pulmicort Respules) 0.5 mg IH [id number] [facility] Last Admin: 05/24/18 20:11 Dose: 0.5 mg Clonazepam (Klonopin) 0.5 mg PO BID PRN; Protocol PRN Reason: Anxiety Last Admin: 05/23/18 10:03 Dose: 0.5 mg Famotidine (Pepcid) 20 mg PO DAILY [facility] Last Admin: 05/24/18 09:37 Dose: 20 mg Furosemide (Lasix) 20 mg PO DAILY [facility] Last Admin: 05/24/18 13:07 Dose: 20 mg Heparin Sodium (Porcine) (Heparin) 5,000 units SC Q8 [facility] PRN Reason: Protocol Last Admin: 05/25/18 05:03 Dose: 5,000 units Clindamycin Phosphate 900 mg/ (Sodium Chloride) 106 mls @ 106 mls/hr IVPB Q8 [facility] PRN Reason: Protocol Last Admin: 05/25/18 05:03 Dose: 106 mls/hr Meropenem (Merrem Iv 1 Gm Premix) 50 mls @ 100 mls/hr IVPB Q12 [facility] PRN Reason: Protocol Last Admin: 05/24/18 21:04 Dose: 100 mls/hr Acyclovir 600 mg/ Sodium (Chloride) 100 mls @ 100 mls/hr IV Q12 [facility] PRN Reason: Protocol Last Admin: 05/24/18 21:00 Dose: 100 mls/hr Losartan Potassium (Cozaar) 25 mg PO DAILY [facility] Last Admin: 05/24/18 13:07 Dose: 25 mg Methadone HCl (Methadone) 130 mg PO DAILY [facility] Last Admin: 05/24/18 09:38 Dose: 130 mg Methylprednisolone (Solu-Medrol) 20 mg IVP Q12 [facility] Last Admin: 05/24/18 21:05 Dose: 20 mg Primaquine Phosphate (Primaquine) 26.3 mg PO DAILY [facility] PRN Reason: Protocol Last Admin: 05/24/18 09:37 Dose: 26.3 mg - Labs Labs: 05/23/18 05:50 05/24/18 07:30 PT 16.3 SECONDS (9.4-12.5) H 05/20/18 04:45 INR 1.41 (0.93-1.08) H 05/20/18 04:45 - Constitutional Appears: No Acute Distress - Eye Exam Eye Exam: Normal appearance - ENT Exam ENT Exam: Mucous Membranes Moist - Respiratory Exam Respiratory Exam: Decreased Breath Sounds, Rhonchi Additional comments: nasal cannula shortness of breath on exertion - Cardiovascular Exam Cardiovascular Exam: +S1, +S2 - GI/Abdominal Exam GI & Abdominal Exam: Soft, Normal Bowel Sounds - Neurological Exam Neurological Exam: Alert, Awake, Oriented x3 - Psychiatric Exam Psychiatric exam: Normal Affect - Skin Skin Exam: Dry, Warm Assessment and Plan - Assessment and Plan (Free Text) Assessment: A 37 year old female who was admitted to ICU from ED due to respiratory failure requiring intubation, History of PCP, pneumonia, HIV (non-compliant with medication), neck abscess, and Hepatitis C.COPD, pulmonary hypertension, methadone dependent. Recent ECHO moderate systolic dysfunction LVEF 35%. Transferred to telemetry after successful extubation. Pneumonia, on antibiotics. Plan: Shortness of breath on exertion, on nasal cannula Pulmonary on consult Stable blood pressure and heart rate Cardiac status stable. On IV antibiotics per ID (sputum-steptococcus pneumoniae) Continue current treatment Continue current medications Will follow up Plan and treatment discussed with Dr. Veliz
[2018-05-25] MEDS: Budesonide 0.5 mg/2 ml Inhal Susp UD IH SCH (08:08)
[2018-05-25] MEDS: Arformoterol 15 mcg/2 ml Inh Sol IH SCH (08:08)
[2018-05-25] MEDS: Meropenem IV 1 gm in NS 50 ML IVPB SCH (09:40)
[2018-05-25] MEDS: Primaquine 26.3 mg Tab PO SCH (09:40)
[2018-05-25 09:43] VITALS: BP 114/81
[2018-05-25] MEDS: MethylPREDNISolone 40 mg Vial IVP SCH (10:26)
[2018-05-25 10:57] VITALS: PULSE 87; TEMP 97.9; O2SAT 96
--- NOTE | 2018-05-25 13:21 | PN ---
Copied To: Cheikh Chou MD Attending MD: Cheikh Chou MD. DATE: 05/25/2018 SUBJECTIVE: The patient is seen earlier this morning in 374, bed 1. No fevers, no chills. PHYSICAL EXAMINATION: VITAL SIGNS: Temperature is 98, blood pressure is 114/80, respiratory rate of 18. HEENT: Unremarkable. NECK: Supple. LUNGS: Have decreased breath sounds. HEART: Normal S1, S2. ABDOMEN: Soft, nontender. LABORATORY EXAMINATION: Reveals a white count of 7.3, hemoglobin of 10, platelets of 176, BUN of 40, creatinine is noted to be 0.8. The LFT's are improving and the urinalysis is noted. The toxicology is noted and the serology is reviewed. Hepatitis HSV2 DNA PCR is detected and HSV1 DNA is not detected. ASSESSMENT AND PLAN: A 37-year-old female with end-stage acquired immune deficiency syndrome noncompliant to medications and admitted with severe sepsis, status post ventilatory dependent respiratory failure now extubated with acute renal failure, acute hepatitis, end-stage of acquired immune deficiency syndrome, increased cerebral palsy and Streptococcus pneumonia on clindamycin, primaquine, meropenem, acyclovir. Overall prognosis is quite poor for this patient who is noncompliant to medications. Review of ordered reveals that clindamycin to be active and meropenem to be active, acyclovir is active, primaquine is also active. We will follow with you. Cheikh Chou MD
--- NOTE | 2018-05-25 14:59 | CP.PCM.PN ---
Subjective - Date & Time of Evaluation Date of Evaluation: 05/25/18 Time of Evaluation: 14:59 - Subjective Subjective: Nephrology Consultation Note: Assessment: stable Acute Kidney Injury (N17.9) likely due to sepsis/hypotension and pre-renal state /dehydration as evident by concentrated urine: resolved abnormal LFT acute hypercapnic respi failure combined respi and metabolic acidosis Hyperphosphatemia HIV/AIDS (CD 4 count <20) non compliant to meds, hx of PCP pneumonia, IVDA, chronic Hep C, COPD chronic sys CHF LVEF 35% Plan maintain hemodynamics stable. avoid hypotension. Patient not on ACEI/ARB due to BERNICE, since BERNICE resolved now, added losartan 25 mg/day Monitor Input/Output, daily weights and renal function with basic metabolic panel added lasix CHF optimization ID, GI, cardiology, pulmonary following Dose meds/antibiotics for improved GFR. Glycemic control Further work up/management as per primary team will sign off and follow further as needed basis Thanks for allowing me to participate in care of your patient. Please call if any Qs. had d/w team. Dr Sesar Paez Office: [phone] HPI: Pt is a 37 F with hx of HIV/AIDS (CD 4 count <20) non compliant to meds, hx of PCP pneumonia, IVDA, chronic Hep C, COPD presented with complaints of SOB , cough and fever, found to have sepsis, acute respi failure s/p intubation 05/19 also with BERNICE and abnormal LFT. renal consult for BERNICE management No recent iodinated contrast exposure. Noted obvious episodes of low BP. ROS: extubated. pt feels better. SOB better Physical Examination: General Appearance: Comfortable, in no acute respiratory distress. Vitals reviewed and noted as below Head; Atraumatic, normocephalic ENT: normal mucosa EYES: Pupils are equal, round and reactive to light accommodation. Eye muscles and extraocular movement intact. Sclera is anicteric. Neck; supple no lymphadenopathy, no thyromegaly or bruit Lungs: Normal respiratory rate/effort. Breath sounds bilateral equal with crackles at base and with exp wheeze Heart: Normal rate. s1s2 normal. No rub or gallop. Extremities: 1-2+ edema. No varicose veins Neurological: Patient is awake alert follow commands Skin: Warm and dry. Normal turgor. No rash. Palpitation: Normal elasticity for age Abdomen: Abdomen is soft. Bowel sounds +. There is no abdominal tenderness, no guarding/rigidity no organomegaly. appears distended Psych: better insight. flat affect/mood MSK: no joint tenderness or swelling. Digits and nails normal, no deformity : kidney or bladder not palpable. Labs/imaging reviewed. Past medical history, past surgical history, family history, social history, allergy reviewed and noted as below Family hx: no hx of CKD. Rest non-contributory work up: renal imaging unremarkable UA SG >1.030 Na 9 neg for ketone/blood CK normal Objective - Vital Signs/Intake and Output Vital Signs (last 24 hours): Temp Pulse Resp BP Pulse Ox 97.9 F 87 20 114/81 96 05/25/18 06:00 05/25/18 06:00 05/25/18 06:00 05/25/18 09:40 05/25/18 06:00 Intake and Output: 05/25/18 05/25/18 06:59 18:59 Intake Total 350 Balance 350 - Medications Medications: Current Medications Acetylcysteine (Acetylcysteine 20%) 3 ml IH BID [facility] Albuterol/Ipratropium (Duoneb 3 Mg/0.5 Mg (3 Ml) Ud) 3 ml IH [id number] PRN PRN Reason: Shortness of Breath Last Admin: 05/23/18 14:24 Dose: 3 ml Albuterol/Ipratropium (Duoneb 3 Mg/0.5 Mg (3 Ml) Ud) 3 ml IH [id number] [facility] Last Admin: 05/25/18 13:49 Dose: Not Given Arformoterol Tartrate (Brovana) 15 mcg IH [id number] [facility] Last Admin: 05/25/18 08:08 Dose: Not Given Budesonide (Pulmicort Respules) 0.5 mg IH [id number] [facility] Last Admin: 05/25/18 08:08 Dose: Not Given Clonazepam (Klonopin) 0.5 mg PO BID PRN; Protocol PRN Reason: Anxiety Last Admin: 05/23/18 10:03 Dose: 0.5 mg Famotidine (Pepcid) 20 mg PO DAILY [facility] Last Admin: 05/25/18 09:41 Dose: 20 mg Furosemide (Lasix) 20 mg PO DAILY [facility] Last Admin: 05/25/18 09:40 Dose: 20 mg Heparin Sodium (Porcine) (Heparin) 5,000 units SC Q8 [facility] PRN Reason: Protocol Last Admin: 05/25/18 13:22 Dose: 5,000 units Clindamycin Phosphate 900 mg/ (Sodium Chloride) 106 mls @ 106 mls/hr IVPB Q8 [facility] PRN Reason: Protocol Last Admin: 05/25/18 13:21 Dose: 106 mls/hr Meropenem (Merrem Iv 1 Gm Premix) 50 mls @ 100 mls/hr IVPB Q12 [facility] PRN Reason: Protocol Last Admin: 05/25/18 09:40 Dose: 100 mls/hr Acyclovir 600 mg/ Sodium (Chloride) 100 mls @ 100 mls/hr IV Q12 [facility] PRN Reason: Protocol Last Admin: 05/25/18 09:41 Dose: 100 mls/hr Losartan Potassium (Cozaar) 25 mg PO DAILY [facility] Last Admin: 05/25/18 09:39 Dose: 25 mg Methadone HCl (Methadone) 130 mg PO DAILY [facility] Last Admin: 05/25/18 09:41 Dose: 130 mg Methylprednisolone (Solu-Medrol) 20 mg IVP Q12 [facility] Last Admin: 05/25/18 10:26 Dose: 20 mg Primaquine Phosphate (Primaquine) 26.3 mg PO DAILY [facility] PRN Reason: Protocol Last Admin: 05/25/18 09:40 Dose: 26.3 mg - Labs Labs: 05/23/18 05:50 05/24/18 07:30 PT 16.3 SECONDS (9.4-12.5) H 05/20/18 04:45 INR 1.41 (0.93-1.08) H 05/20/18 04:45
--- NOTE | 2018-05-25 15:34 | CP.PCM.PN ---
Subjective - Date & Time of Evaluation Date of Evaluation: 05/25/18 Time of Evaluation: 15:25 - Subjective Subjective: AMA S: Patient is a 37 yo F admitted for PCP pneumonia, CAP, AIDs requested to leave against medical advice. Patient stated she was unhappy that her Methadone dose had not been resumed to her normal amount of 150 mg. Primary had already explained to the patient that the dose was lowered due to her elevated liver enzymes and while improved was not within normal limits, which I reiterated. Patient also stated she did not understand why she has had an extended hospital course. I explained to her that her hospital course has been complicated by numerous co-morbidities and she is still requiring IV medications to stabilize her condition. Despite this patient was still not agreeable to continuing treatment. I explained the benefits of staying including, but not limited to continued IV medication therapy to further stabilize her conditions. I explained the risks of leaving against medical advice in detail to the patient including further morbidity and possible mortality. The patient stated she understood, but requested to leave against medical advice despite this. O: T 97.9, HR 87, BP 114/81, RR 20, O2 96% on RA Gen: NAD, afebrile CV: RRR, no m/r/g Pulm: CTAB, no w/r/r GI: Soft, NT/ND Extremities: Midline in place in RUE, no cyanosis, edema, clubbbing Neuro: AOx3 Psych: Normal mood, affect A/P: 37 yo F leaving against medical advice. - Risks and benefits were explained in detail to patient - AMA form was discussed in detail with patient, who elected to sign out AMA - Please see AMA form for more details - Primary notified Objective - Vital Signs/Intake and Output Vital Signs (last 24 hours): Temp Pulse Resp BP Pulse Ox 97.9 F 87 20 114/81 96 05/25/18 06:00 05/25/18 06:00 05/25/18 06:00 05/25/18 09:40 05/25/18 06:00 Intake and Output: 05/25/18 05/25/18 06:59 18:59 Intake Total 350 Balance 350 - Medications Medications: Current Medications Acetylcysteine (Acetylcysteine 20%) 3 ml IH BID [facility] Albuterol/Ipratropium (Duoneb 3 Mg/0.5 Mg (3 Ml) Ud) 3 ml IH [id number] PRN PRN Reason: Shortness of Breath Last Admin: 05/23/18 14:24 Dose: 3 ml Albuterol/Ipratropium (Duoneb 3 Mg/0.5 Mg (3 Ml) Ud) 3 ml IH [id number] [facility] Last Admin: 05/25/18 13:49 Dose: Not Given Arformoterol Tartrate (Brovana) 15 mcg IH [id number] [facility] Last Admin: 05/25/18 08:08 Dose: Not Given Budesonide (Pulmicort Respules) 0.5 mg IH [id number] [facility] Last Admin: 05/25/18 08:08 Dose: Not Given Clonazepam (Klonopin) 0.5 mg PO BID PRN; Protocol PRN Reason: Anxiety Last Admin: 05/23/18 10:03 Dose: 0.5 mg Famotidine (Pepcid) 20 mg PO DAILY [facility] Last Admin: 05/25/18 09:41 Dose: 20 mg Furosemide (Lasix) 20 mg PO DAILY [facility] Last Admin: 05/25/18 09:40 Dose: 20 mg Heparin Sodium (Porcine) (Heparin) 5,000 units SC Q8 [facility] PRN Reason: Protocol Last Admin: 05/25/18 13:22 Dose: 5,000 units Clindamycin Phosphate 900 mg/ (Sodium Chloride) 106 mls @ 106 mls/hr IVPB Q8 [facility] PRN Reason: Protocol Last Admin: 05/25/18 13:21 Dose: 106 mls/hr Meropenem (Merrem Iv 1 Gm Premix) 50 mls @ 100 mls/hr IVPB Q12 [facility] PRN Reason: Protocol Last Admin: 05/25/18 09:40 Dose: 100 mls/hr Acyclovir 600 mg/ Sodium (Chloride) 100 mls @ 100 mls/hr IV Q12 [facility] PRN Reason: Protocol Last Admin: 05/25/18 09:41 Dose: 100 mls/hr Losartan Potassium (Cozaar) 25 mg PO DAILY [facility] Last Admin: 05/25/18 09:39 Dose: 25 mg Methadone HCl (Methadone) 130 mg PO DAILY [facility] Last Admin: 05/25/18 09:41 Dose: 130 mg Methylprednisolone (Solu-Medrol) 20 mg IVP Q12 [facility] Last Admin: 05/25/18 10:26 Dose: 20 mg Primaquine Phosphate (Primaquine) 26.3 mg PO DAILY [facility] PRN Reason: Protocol Last Admin: 05/25/18 09:40 Dose: 26.3 mg - Labs Labs: 05/23/18 05:50 05/24/18 07:30 PT 16.3 SECONDS (9.4-12.5) H 05/20/18 04:45 INR 1.41 (0.93-1.08) H 05/20/18 04:45
--- NOTE | 2018-05-25 18:08 | PN ---
Copied To: Cara Barajas MD Attending MD: Cara Barajas MD DATE: 05/25/2018 PULMONARY PROGRESS NOTE REFERRING PHYSICIAN: Macario Carter MD. SUBJECTIVE: She is sitting on side of the bed, crying and complaining that she is going through withdrawal feeling. She got methadone 100, but she has total 130 mg was given. Breathing is better. Still has some cough. No nausea. No vomiting. No diarrhea. Still has some trace leg swelling. OBJECTIVE: GENERAL: In no acute distress. VITAL SIGNS: Temp is 98, heart rate is 87, respiratory rate is 20, blood pressure 114/81, pulse ox 96% on nasal cannula. HEENT: Moist mucous membrane. No ulcer or thrush noted. NECK: Supple. No JVD. LUNGS: Have a few crackles and expiratory long phase. HEART: S1 and S2. ABDOMEN: Soft, nontender. No organomegaly. EXTREMITIES: Trace edema. NEUROLOGICAL: Awake and alert. Follows simple command. MEDICATIONS: She is on Mucomyst 20% inhaled twice a day, getting acyclovir at 600 mg every 12 hours, Brovana inhaled twice a day, clindamycin 900 mg every 8 hours, Cozaar 25 mg daily, DuoNeb every 4 hours p.r.n., DuoNeb every 6 hours [id number], heparin 5000 units subcu every 8 hours, Klonopin 0.5 mg twice a day p.r.n., Lasix 20 mg daily, meropenem 1 g IV every 12 hours, methadone 130 mg daily, Pepcid 20 mg daily, primaquine 26.3 mg daily, Pulmicort inhaled twice a day, Solu-Medrol 20 mg every 12 hours. LABORATORY DATA: Reviewed and noted. No new lab reported since yesterday. IMPRESSION AND PLAN: Status post respiratory failure, extubated, on nasal cannula; chronic obstructive lung disease; cardiomyopathy with decreased left ventricular function; pulmonary hypertension; methadone dependant; substance abuse; elevated liver enzymes; history of hepatitis. Pulmonary point of view, she is doing okay. May continue taper steroids, inhaled bronchodilator as needed, diuretics. Gastric prophylaxis. Deep vein thrombosis prophylaxis. Antibiotics as per Infectious Diseases. Thank you and we will follow with you. Cara Barajas MD [facility] # [id number]
--- NOTE | 2018-05-25 20:31 | PN ---
Copied To: Macario Carter MD Attending MD: Macario Carter MD DATE: 05/24/2018 SUBJECTIVE: She does have some dry cough, sometimes there is a phlegm. Breathing better and she has no other new complaints. She feels weak, otherwise the patient is better, improving. PHYSICAL EXAMINATION: GENERAL: The patient is sitting in the bed, comfortable. No distress. VITAL SIGNS: On 05/24/2018, temperature 98.8, heart rate 93, blood pressure 111/82, respirations 20, and saturation is low 90s on room air. HEAD AND NECK: Normal. No JVD. No thyromegaly. CHEST: Clear. Few rhonchi. CARDIAC: First second and second sound normal. ABDOMEN: Soft, nontender. EXTREMITIES: There is mild edema. NEUROLOGIC: Normal. LABORATORY DATA: Shows white 7.3, hemoglobin 10, hematocrit 32.2, platelet 176. Chemistry shows sodium 143, potassium 4.4, chloride 111, bicarb 29, BUN 40, creatinine is 0.8. The patient also had liver enzymes, which is improving. AST 209, ALT 600, alkaline phosphatase is normal. Last chest x-ray shows stable infiltrate, primarily in the right lung. IMPRESSION AND PLAN: 1. Right pneumonia, nosocomial. 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 This patient will continue to be on inhaled and IV bronchodilators, nebulizer treatment. Continue current antibiotics as per ID recommendations. She is still getting meropenem 1 g IV every 12 hours plus clindamycin and primaquine in addition to Solu-Medrol IV. We will add Mucomyst, chest percussion therapy, physical therapy and encourage the patient to ambulate with physical therapy. Continue Pulmicort, Brovana. Continue DuoNeb, DuoNeb has been changed to four times a day continuously, every 4 hours p.r.n. 2. Cardiomyopathy, etiology unclear. She has low the Nephrology put the patient on Cozaar 25 mg p.o. daily, we will continue that and we will follow up clinically. The patient should follow up as outpatient for management of human immunodeficiency virus and the problems related with human immunodeficiency virus, cardiomyopathy, or ischemia. Continue also Lasix 20 mg p.o. daily, has been added. 3. Drug abuse. History of being on methadone. Continue methadone. We will decrease the dose from 140 to 130, plus continue her antianxiety medicine, Klonopin 0.5 mg b.i.d. 4. Acute renal failure, resolved. We will follow up clinically. Continue current therapy. We will follow up with other consultants. Discussed with the patient all findings, all labs, and treatment plan. Macario Carter MD [facility] # [id number]
[2018-05-26] MEDS ORDERED: MethylPREDNISolone 40 mg Vial IVP SCH (10:00)
--- NOTE | 2018-05-26 17:23 | DS ---
Copied To: Macario Carter MD Attending MD: Macario Carter MD The patient came in with respiratory failure, admitted with respiratory failure, PCP pneumonia, nosocomial pneumonia, was admitted to ICU, intubated, a day later patient was extubated and was maintained on BiPAP which later on was taken off and used nebulizer treatment, IV Solu-Medrol, IV antibiotic including clindamycin 900 IV every 8 hours plus primaquine 26.3 mg p.o. daily. Patient also is given inhaled bronchodilators, Pulmicort, Brovana and IV Solu-Medrol, which has been given gradually. Patient is seen by ID consult, Dr. Chou; Pulmonary consult, Dr. Barajas; Cardiology consult, Dr. Veliz; also Renal consult because of her acute renal failure when she came in which improved over 3 to 4 days later, creatinine back to normal. Patient does have EF, is low in 30% range and she was given Cozaar plus Lasix to help her leg edema and her cardiac function. Patient was seen by Nephrology, Dr. Agudelo, and she is doing very well. Her methadone was decreased from 140 to 130 and patient complained about it. We were planning to increase this to 130; however, patient decided to leave against medical advice. She was getting meropenem IV for nosocomial pneumonia and was given acyclovir IV 600 mg every 12 hours. Patient was also getting physical therapy, chest PT. She was given Mucomyst and was advised to stay, however, she decided to leave. Clinically, she improved. She is hemodynamically stable. Breathing is much better and kidney function has improved and she should be on the current medications, however, the patient decided to leave against medical advice. Patient was not examined. Her vitals: Temperature 97, heart rate 87, blood pressure 114/81, respirations 20, oxygenation 96% on 3 liters nasal cannula. The patient has no change in her physical condition. She was stable, better and she decided to go on discharge. LABORATORY DATA: Her x-ray shows right lung pneumonia. Her lab shows white count 7.4, it went down from 25,000; hemoglobin 10; hematocrit 32.2; platelets 176. Kidney function initially when she came in was 2, then went down to 1.9, gradually 1.2 and on day before discharge, it was 0.8. Patient also noted abnormal liver function test, was in 5000s, then 2000s, 1000 range, 500 range, then 200 on discharge day. Abnormal AST and ALT. Patient also seen by GI consult, Dr. Centeno and some serology sent out but it did not come yet. She had hepatitis B antibody, which is reactive; however, hepatitis B surface antibody, which is immunity. She does have negative B core antibody, means she never had infections. She also had chronic hepatitis C. 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 Streptococcal antigen was not detected. CMV IgM was less than 30; however, CMV IgG was more than 10, which indicates previous infection. Patient will be discharged against medical advice. She should follow up with clinic for HIV, compliance with medicine recommended to the patient and to see Cardiology for further workup for cardiac status. DISCHARGE DIAGNOSES: 1. Patient has advanced age. 2. Pneumocystis carinii pneumonia. 3. Right lower lobe nosocomial pneumonia. 4. Acute elevation of liver enzymes, could be due to cardiac, could be due to congestion, could be due to some drugs, etiology unclear. 5. Cardiomyopathy. Patient needs to follow up. Continue Cozaar and Lasix. She should follow up with the clinic as an outpatient. 6. Patient also had drug abuse, heroin abuse. Continue methadone, probably she can go back to 140 once a day. 7. Chronic anxiety. Continue anxiety medicine, Klonopin 0.5 mg b.i.d. Patient also should be on inhaled bronchodilators and she should follow up as outpatient with a team of specialists. Macario Carter MD
== END 2018-05-25 16:44 | disposition left against medical advice (07) | DRG 706 ==
LOC: ED 09:53 → ERH 17:06 → CCU 20:49 → 3RSO 05-22 16:19
PROVIDERS: ADMIT Internal Medicine; ATTEND Internal Medicine
PROC: 05H533Z Insertion of Infusion Device into Right Subclavian Vein, Percutaneous Approach (ICD-10-PCS; 2018-05-19)
PROC: 5A1945Z Respiratory Ventilation, 24-96 Consecutive Hours (ICD-10-PCS; principal; 2018-05-20)
PROC: 0BH17EZ Insertion of Endotracheal Airway into Trachea, Via Natural or Artificial Opening (ICD-10-PCS; 2018-05-20)
PROC: 3E0F7GC Introduction of Other Therapeutic Substance into Respiratory Tract, Via Natural or Artificial Opening (ICD-10-PCS; 2018-05-20)
DX: A41.9 Sepsis, unspecified organism (principal); B59 Pneumocystosis; B20 Human immunodeficiency virus [HIV] disease; I42.9 Cardiomyopathy, unspecified; J96.02 Acute respiratory failure with hypercapnia; N17.9 Acute kidney failure, unspecified; J96.01 Acute respiratory failure with hypoxia; R65.21 Severe sepsis with septic shock; K72.00 Acute and subacute hepatic failure without coma; B18.2 Chronic viral hepatitis C; E87.4 Mixed disorder of acid-base balance; J44.1 Chronic obstructive pulmonary disease with (acute) exacerbation; J45.901 Unspecified asthma with (acute) exacerbation; R64 Cachexia; J44.0 Chronic obstructive pulmonary disease with (acute) lower respiratory infection; E86.0 Dehydration; I27.20 Pulmonary hypertension, unspecified; I08.1 Rheumatic disorders of both mitral and tricuspid valves; F41.9 Anxiety disorder, unspecified; F17.210 Nicotine dependence, cigarettes, uncomplicated; G89.29 Other chronic pain; M54.9 Dorsalgia, unspecified; E83.39 Other disorders of phosphorus metabolism; D64.9 Anemia, unspecified; Z68.1 Body mass index [BMI] 19.9 or less, adult; Z91.14 Patient's other noncompliance with medication regimen; Z91.19 Patient's noncompliance with other medical treatment and regimen

== ENCOUNTER 2018-06-02 16:09 | Inpatient (IN) | payer OTHER ==
[2018-06-02 16:37] VITALS: BMI 20.1
[2018-06-02] MEDS ORDERED: Levalbuterol 1.25 MG/3 ML Inhal Soln UD IH STA ×2 (17:12→19:25)
[2018-06-02 18:44] LABS: BASO # 0.04 K/mm3 (0.0-2.0); BASO % 0.4 % (0.0-3.0); EOS # 0.1 (0.0-0.7); GRAN # 9.04 (1.4-6.5); GRAN % 80.3 % (50.0-68.0); HEMOGLOBIN 11.2 g/dL (12.0-16.0); LYMPH # 1.5 (1.2-3.4); LYMPH % 13.1 % (22.0-35.0); MEAN CELL VOLUME 84.9 fl (80.0-105.0); MEAN CORPUSCULAR HEMOGLOBIN 26.4 pg (25.0-35.0); MONO # 0.6 (0.1-0.6); MONO % 5.2 % (1.0-6.0); PLATELET COUNT 111 10^3/uL (120.0-450.0); RBC 4.25 10^6/uL (3.5-6.1); RED CELL DISTRIBUTION WIDTH 18.7 % (11.5-14.5); WHITE BLOOD COUNT 11.2 10^3/ul (4.5-11.0)
[2018-06-02 18:49] LABS: VENOUS BLOOD GAS PO2 36 mm/Hg (30-55); VENOUS BLOOD PH 7.27 (7.32-7.43)
[2018-06-02 18:54] LABS: INR 1.8; PROTHROMBIN TIME 20.8 SECONDS (9.4-12.5)
[2018-06-02 18:55] LABS: PARTIAL THROMBOPLASTIN TIME 26.7 Seconds (25.1-36.5)
[2018-06-02 19:07] LABS: ALB/GLOB RATIO 0.6 (1.1-1.8); ALBUMIN 2.5 g/dL (3.0-4.8); CALCIUM 8.3 mg/dL (8.4-10.5)
[2018-06-02 19:35] LABS: TROPONIN I 0.54 ng/mL
--- NOTE | 2018-06-02 20:46 | ED PDOC ---
Arrival/HPI - General Chief Complaint: Shortness Of Breath Time Seen by Provider: 06/02/18 16:13 Historian: Patient - History of Present Illness Narrative History of Present Illness (Text): 06/02/18 20:41 37yo female with pmhx of HIV, Pneumonia, PCP, neck abscess, hepatitis C present with complaint of generalized edema, cough, SOB since yesterday. Patient states she was admitted last week for same complaint and was discharged few days ago. States the edema is chronic and localized to her foot, but it became worse yesterday including her lower leg. She states she is currently still on the antibiotics that she was given when she was discharged home. She is not on any HARRT or antiviral medication. She denies fever, chills, nausea, vomiting, abdominal pain, chest pain, any other complaint. Past Medical History - Provider Review Nursing Documentation Reviewed: Yes - Infectious Disease Hx of Infectious Diseases: None - Tetanus Immunization Tetanus Immunization: Unknown - Cardiac Hx Cardiac Disorders: Yes - Pulmonary Hx Respiratory Disorders: Yes (has nebulizer machine at home) Hx Asthma: Yes Hx Bronchitis: Yes Hx Chronic Obstructive Pulmonary Disease (COPD): Yes Hx Pneumonia: Yes - Neurological Hx Migraine: Yes - HEENT Hx Macular Degeneration: Yes - Renal Hx Renal Disorder: No - Endocrine/Metabolic Hx Endocrine Disorders: No - Hematological/Oncological Hx Blood Disorders: Yes (blood transfusion) Hx AIDS: Yes Hx Hepatitis C: Yes (IVDU) - Integumentary Hx Dermatological Disorder: Yes - Musculoskeletal/Rheumatological Hx Musculoskeletal Disorders: Yes Hx Back Pain: Yes Other/Comment: SCOLIOSIS - Gastrointestinal Hx Gastrointestinal Disorders: Yes - Genitourinary/Gynecological Hx Genitourinary Disorders: Yes Hx Urinary Tract Infection: Yes - Psychiatric Hx Psychophysiologic Disorder: Yes Hx Anxiety: Yes Hx Substance Use: No Other/Comment: hx ivdu/cocaine stopped 6 yrs ago on methadone program, smokes 1 ppd has not smoked in 4 days - Past Surgical History Past Surgical History: No Previous - Surgical History Other/Comment: right anterior neck SX for abcesses bx neg - Anesthesia Hx Anesthesia: Yes Hx Anesthesia Reactions: No Hx Malignant Hyperthermia: No - Suicidal Assessment Feels Threatened In Home Enviroment: No Family/Social History - Physician Review Nursing Documentation Reviewed: Yes Family/Social History: Unknown Family HX Smoking Status: Former Smoker Hx Alcohol Use: No Hx Substance Use: No Substance used: herion, cocaine Hx Substance Use Treatment: No Allergies/Home Meds Allergies/Adverse Reactions: Allergies levofloxacin [From Levaquin] Allergy (Verified 05/19/18 10:22) RASH Penicillins Allergy (Verified 05/19/18 10:22) RASH sulfamethoxazole [From Bactrim] Allergy (Verified 05/19/18 10:22) ANGIOEDEMA trimethoprim [From Bactrim] Allergy (Verified 05/19/18 10:22) ANGIOEDEMA azithromycin [From Zithromax] Adverse Reaction (Verified 05/19/18 10:22) RASH flexeril Adverse Reaction (Uncoded 05/19/18 10:22) RASH Home Medications: Home Meds Medication Instructions Recorded Confirmed Albuterol HFA [Ventolin HFA 90 2 puff INH Q4H PRN 03/11/18 03/11/18 mcg/actuation (8 g)] Famotidine [Pepcid] 40 mg PO DAILY 03/11/18 03/11/18 Ibuprofen [Motrin Tab] 800 mg PO PRN PRN 03/11/18 03/11/18 Review of Systems - Physician Review All systems were reviewed & negative as marked: Yes - Review of Systems Constitutional: Normal Eyes: Normal ENT: Normal Respiratory: Cough Cardiovascular: Edema Gastrointestinal: Normal Genitourinary Female: Normal Musculoskeletal: Normal Skin: Normal Neurological: Normal Endocrine: Normal Hemo/Lymphatic: Normal Psychiatric: Normal Physical Exam Vital Signs Reviewed: Yes Vital Signs Temp Pulse Resp BP Pulse Ox 06/02/18 22:53 123/73 06/02/18 21:30 90 18 110/77 97 06/02/18 17:30 18 98 06/02/18 16:09 98 F 98 H 20 119/73 86 L Temperature: Afebrile Blood Pressure: Normal Pulse: Regular Respiratory Rate: Other (Hypoxic) Appearance: Positive for: Well-Appearing, Non-Toxic, Comfortable Pain Distress: None Mental Status: Positive for: Alert and Oriented X 3 - Systems Exam Head: Present: Atraumatic, Normocephalic Pupils: Present: PERRL Extroacular Muscles: Present: EOMI Conjunctiva: Present: Normal Mouth: Present: Moist Mucous Membranes Neck: Present: Normal Range of Motion Respiratory/Chest: Present: Good Air Exchange, Rales, Other (Crackles). No: Respiratory Distress, Accessory Muscle Use, Wheezes, Decreased Breath Sounds, Retracting, Rhonchi Cardiovascular: Present: Regular Rate and Rhythm, Normal S1, S2. No: Murmurs Abdomen: No: Tenderness, Distention, Peritoneal Signs Back: Present: Normal Inspection Upper Extremity: Present: Normal Inspection. No: Cyanosis, Edema Lower Extremity: Present: Edema (3+ pedal edema) Neurological: Present: GCS=15, CN II-XII Intact, Speech Normal Skin: Present: Warm, Dry, Normal Color. No: Rashes Psychiatric: Present: Alert, Oriented x 3, Normal Insight, Normal Concentration Medical Decision Making ED Course and Treatment: 06/03/18 01:44 37yo female with history of HIV and HEP C uncomplaint iwth her antiviral present with complaint of generalized edema , cough and SOB Lab Xopenex CXR EKG was ordered Elevated BNP, LFT's, Troponin was noted. LFT was similar to her previous labs. Troponin likely elevated secondary to CHF. Pt was suppose to be on LAsix at home but not taking it. She did not appear to need paracentesis at this time. Ammonia is pending on the pt. Lasix was ordered CXR shows improved from the last CXR. Case was FABBY Carter who recommends admission to the Hospitalist. PT was not hypoxic in the ED. She is stable for Tele admission. Case was FABBY Lopes and she accepted pt for admission. Pt have a very poor access. Per surgical elastic knitter hand frame, her INR is high for Central line. PICC line was ordered. PO medication was given pending the PICC line. - Lab Interpretations Lab Results: 06/02/18 18:15 06/02/18 18:15 Lab Results 06/02/18 18:15: Alcohol, Quantitative < 10 06/02/18 18:15: Sodium 138, Chloride 103, Potassium 5.3 H, Carbon Dioxide 27, Anion Gap 13, BUN 47 H, Creatinine 2.7 H, Est GFR ( Amer) 24, Est GFR ( Non-Af Amer) 20, Random Glucose 61 L, Calcium 8.3 L, Phosphorus 5.6 H, Magnesium 1.7, Total Bilirubin 1.0, AST 2235 H, ALT 1120 H, Alkaline Phosphatase 123, Troponin I 0.54 H* D, NT-Pro-B Natriuret Pep 92880 H, Total Protein 6.3, Albumin 2.5 L, Globulin 3.8, Albumin/Globulin Ratio 0.6 L 06/02/18 18:15: pO2 36, VBG pH 7.27 L, VBG pCO2 59.0, VBG HCO3 27.1, VBG Total CO2 28.9 H, VBG O2 Sat (Calc) 61.0, VBG Base Excess -1.0 L, VBG Potassium 5.4 H , Sodium 137.0, Chloride 104.0, Glucose 57 L, Lactate 1.8, FiO2 21.0, Venous Blood Potassium 5.4 H 06/02/18 18:15: PT 20.8 H, INR 1.80, APTT 26.7 06/02/18 18:15: WBC 11.2 H D, RBC 4.25, Hgb 11.2 L, Hct 36.1, MCV 84.9, MCH 26.4 , MCHC 31.0, RDW 18.7 H, Plt Count 111 L, Gran % 80.3 H, Lymph % (Auto) 13.1 L, [place] % (Auto) 5.2, Eos % (Auto) 1.0 L, Baso % (Auto) 0.4, Gran # 9.04 H, Lymph # (Auto) 1.5, [place] # (Auto) 0.6, Eos # (Auto) 0.1, Baso # (Auto) 0.04 - RAD Interpretation Radiology Orders: 06/02/18 17:10 CHEST PORTABLE [RAD] Stat - Medication Orders Current Medication Orders: Clindamycin HCl (Cleocin) 300 mg PO Q8H EDSON PRN Reason: Protocol Last Admin: 06/03/18 00:44 Dose: 300 mg Acyclovir 600 mg/ Sodium (Chloride) 100 mls @ 100 mls/hr IV Q12H EDSON PRN Reason: Protocol Last Admin: 06/02/18 23:44 Dose: Meropenem (Merrem Iv 1 Gm Premix) 50 mls @ 100 mls/hr IVPB Q12H EDSON PRN Reason: Protocol Stop: 06/03/18 10:01 Last Admin: 06/02/18 23:43 Dose: Primaquine Phosphate (Primaquine) 26.3 mg PO DAILY EDSON PRN Reason: Protocol Discontinued Medications Albuterol/Ipratropium (Duoneb 3 Mg/0.5 Mg (3 Ml) Ud) 3 ml IH STAT STA Stop: 06/02/18 21:51 Last Admin: 06/02/18 22:46 Dose: 3 ml Furosemide (Lasix) 40 mg IVP ONCE ONE Stop: 06/02/18 20:11 Last Admin: 06/02/18 22:51 Dose: Furosemide (Lasix) 40 mg PO STAT STA Stop: 06/02/18 22:48 Last Admin: 06/02/18 22:53 Dose: 40 mg MAR Blood Pressure Document 06/02/18 22:53 HI (Rec: 06/02/18 22:54 MI [id number]) Blood Pressure Blood Pressure (100/60-150/90) 123/73 Levalbuterol HCl (Xopenex) 1.25 mg IH STAT STA Stop: 06/02/18 17:13 Last Admin: 06/02/18 17:35 Dose: 1.25 mg Levalbuterol HCl (Xopenex) 1.25 mg IH STAT STA Stop: 06/02/18 19:26 Last Admin: 06/02/18 20:06 Dose: 1.25 mg Disposition/Present on Arrival - Present on Arrival Any Indicators Present on Arrival: No History of DVT/PE: No History of Uncontrolled Diabetes: No Urinary Catheter: No History of Decub. Ulcer: No History Surgical Site Infection Following: None - Disposition Have Diagnosis and Disposition been Completed?: Yes Diagnosis: Congestive heart failure, Elevated troponin, HIV disease, Pneumonia, Hepatitis C Disposition: HOSPITALIZED Disposition Time: 20:40 Patient Plan: Admission Patient Problems: Current Active Problems Problem Status Onset Congestive heart failure Acute Elevated troponin Acute Pneumonia Acute HIV disease Chronic Hepatitis C Chronic Condition: FAIR
[2018-06-02] MEDS ORDERED: Albuterol-Ipratrop 3 mg / 0.5 (3 ml) UD IH STA (21:50)
--- NOTE | 2018-06-02 22:03 | CP.PCM.HP ---
<Kayla Hughes - Last Filed: 06/03/18 09:38> History of Present Illness - History of Present Illness History of Present Illness: KAYLA HUGHES PGY-1, HISTORY & PHYSICAL NOTE FOR HOSPITALIST TEAM CC: Diffuse swelling, shortness of breath 37 y/o F with PMH of AIDS (CD4 <20 03/11/18), Hep C known treated, EBV, CMV, HSV , CHF, COPD, Asthma, Hx of heroin abuse presents to ED with complaints of increased diffuse swelling, shortness of breath, difficulty breathing and abdominal "tightness" for the past 3 days. Pt was recently admitted on 05/19/18 for respiratory failure. Pt recently signed out AMA on 05/25/18 because she was unhappy with not receiving enough of her methadone treatment. She reports that she was doing well for about 3 days after she had signed out and was able to ambulate and conduct daily activities. She noticed progressive worsening of her swelling and shortness of breath for 3 days after d/c until she decided to come in to the ED today. She reports that she was unable to obtain her HIV medications because there were "pre-authorization" issues regarding her medications. She denies chest pain, nausea, vomiting, diarrhea, constipation, headache, dizziness, dysuria. PMD: Dr. Carter PMH: HIV (CD4 <20 03/11/18), EBV, CMV, HSV, COPD, Asthma, Hx of heroin abuse, PSH: R anterior neck surgery abscess removal SH: IV drug user, former smoker, Denies alcohol Allergies: TMP/SMX--anaphylaxis, levofloxacin, penicllin, azithromycin, flexeril Meds: Non-compliant with HIV meds. Review of Systems - Review of Systems All systems: reviewed and no additional remarkable complaints except (as per HPI ) Past Patient History - Infectious Disease Hx of Infectious Diseases: None - Tetanus Immunizations Tetanus Immunization: Unknown - Past Social History Smoking Status: Former Smoker - CARDIAC Hx Cardiac Disorders: Yes - PULMONARY Hx Respiratory Disorders: Yes (has nebulizer machine at home) Hx Asthma: Yes Hx Bronchitis: Yes Hx Chronic Obstructive Pulmonary Disease (COPD): Yes Hx Pneumonia: Yes - NEUROLOGICAL Hx Migraine: Yes - HEENT Hx Macular Degeneration: Yes - RENAL Hx Chronic Kidney Disease: No - ENDOCRINE/METABOLIC Hx Endocrine Disorders: No - HEMATOLOGICAL/ONCOLOGICAL Hx Blood Disorders: Yes (blood transfusion) Hx AIDS: Yes Hx Hepatitis C: Yes (IVDU) - INTEGUMENTARY Hx Dermatological Problems: Yes - MUSCULOSKELETAL/RHEUMATOLOGICAL Hx Musculoskeletal Disorders: Yes Hx Back Pain: Yes Other/Comment: SCOLIOSIS - GASTROINTESTINAL Hx Gastrointestinal Disorders: Yes - GENITOURINARY/GYNECOLOGICAL Hx Genitourinary Disorders: Yes Hx Urinary Tract Infection: Yes - PSYCHIATRIC Hx Psychophysiologic Disorder: Yes Hx Anxiety: Yes Hx Substance Use: No Other/Comment: hx ivdu/cocaine stopped 6 yrs ago on methadone program, smokes 1 ppd has not smoked in 4 days - SURGICAL HISTORY Other/Comment: right anterior neck SX for abcesses bx neg - ANESTHESIA Hx Anesthesia: Yes Hx Anesthesia Reactions: No Hx Malignant Hyperthermia: No Meds Allergies/Adverse Reactions: Allergies Allergy/AdvReac Type Severity Reaction Status Date / Time levofloxacin [From Levaquin] Allergy RASH Verified 05/19/18 10:22 Penicillins Allergy RASH Verified 05/19/18 10:22 sulfamethoxazole Allergy ANGIOEDEMA Verified 05/19/18 10:22 [From Bactrim] trimethoprim [From Bactrim] Allergy ANGIOEDEMA Verified 05/19/18 10:22 azithromycin [From Zithromax] AdvReac RASH Verified 05/19/18 10:22 flexeril AdvReac RASH Uncoded 05/19/18 10:22 Physical Exam - Constitutional Appears: Well, Non-toxic, No Acute Distress - Head Exam Head Exam: NORMAL INSPECTION, NORMOCEPHALIC - Eye Exam Eye Exam: EOMI, Normal appearance, Periorbital swelling Additional comments: No signs of retinitis - ENT Exam ENT Exam: Mucous Membranes Moist, Normal Exam Additional comments: No oral thrush noted, No pharyngitis - Neck Exam Neck exam: Positive for: Normal Inspection. Negative for: Meningismus - Respiratory Exam Respiratory Exam: Rales (b/l), Rhonchi (b/l) - Cardiovascular Exam Cardiovascular Exam: REGULAR RHYTHM, +S1, +S2 - GI/Abdominal Exam GI & Abdominal Exam: Distended, Soft. absent: Rebound - Extremities Exam Extremities exam: Positive for: joint swelling, pedal edema. Negative for: calf tenderness - Back Exam Back exam: absent: CVA tenderness (L), CVA tenderness (R) - Neurological Exam Neurological exam: Alert, CN II-XII Intact, Oriented x3 - Psychiatric Exam Psychiatric exam: Normal Affect, Normal Mood - Skin Skin Exam: Dry, Intact, Warm Results - Vital Signs Recent Vital Signs: Last Vital Signs Temp 98 F 06/02/18 16:09 Pulse 90 06/02/18 21:30 Resp 18 06/02/18 21:30 BP 110/77 06/02/18 21:30 Pulse Ox 97 06/02/18 21:30 - Labs Result Diagrams: 06/03/18 02:55 06/03/18 02:55 Assessment & Plan - Assessment and Plan (Free Text) Assessment: 37 y/o F with PMH of AIDS (CD4 <20 03/11/18), Hep C, PCP pneumonia, EBV, CMV, HSV , CHF, COPD, asthma, hx of heroin abuse admitted for CHF exacerbation, sepsis, transaminitis Plan: Acute on chronic CHF Echo (04/14/18): EF 35%. 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 Pt noncompliant with antiretrovirals Hx of Hep C, CMV, EBV, PcP pnemonia HCV RNA QUAL (05/23/18): treated with Taylor, CMV IgG Ab >10 (05/20/18), EBV EA IgG 62.90 (05/20/18) Peripheral IV access unable to be accessed, EJ was considered however unattainable, pt currently hemodynamically stable, will attempt PICC line in am. Start oral abx Start clindamycin 300mg, Primaquine 26.3 po for PCP tx f/u urine/blood culture f/u procalcitonin ID Consult: José Antonio. F/u recs Transaminitis AST: 2235 ALT: 1120 PT: 20.8 PTT 26.7. SCD for DVT ppx Likely secondary to shock liver vs HSV hepatitis F/u Acetaminophen level F/u GI recs: Dr. Centeno Avoid hepatotoxins NSTEMI Troponin 0.54. Trend isoenzymes. Trend EKG Therapeutic heparin/lovenox cannot be given due to no IV access. 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 Lopes <Omar Lopes - Last Filed: 06/03/18 22:33> Present on Admission - Present on Admission Any Indicators Present on Admission: No Results - Vital Signs Recent Vital Signs: Last Vital Signs Temp 98.6 F 06/03/18 17:39 Pulse 96 H 06/03/18 22:00 Resp 18 06/03/18 17:39 BP 90/52 L 06/03/18 18:41 Pulse Ox 97 06/02/18 23:07 - Labs Result Diagrams: 06/03/18 02:55 06/03/18 02:55 Labs: Laboratory Results - last 24 hr 06/02/18 06/02/18 06/02/18 22:26 22:49 22:49 WBC RBC Hgb Hct MCV MCH MCHC RDW Plt Count MPV Gran % Lymph % (Auto) Swain % (Auto) Eos % (Auto) Baso % (Auto) Gran # Lymph # (Auto) Swain # (Auto) Eos # (Auto) Baso # (Auto) pCO2 pO2 HCO3 ABG pH ABG Total CO2 ABG O2 Saturation ABG Base Excess ABG Potassium Sodium Chloride Glucose Lactate FiO2 Potassium Carbon Dioxide Anion Gap BUN Creatinine Est GFR ( Amer) Est GFR (Non-Af Amer) POC Glucose (mg/dL) 51 L Random Glucose Calcium Total Bilirubin AST ALT Alkaline Phosphatase Ammonia Lactate Dehydrogenase Total Creatine Kinase Troponin I Total Protein Albumin Globulin Albumin/Globulin Ratio Procalcitonin Arterial Blood Potassium Urine Color Yellow Urine Appearance Clear Urine pH 6.0 Ur Specific [place] 1.025 Urine Protein 30 H Urine Glucose (UA) Negative Urine Ketones Negative Urine Blood Trace-intact H Urine Nitrate Negative Urine Bilirubin Negative Urine Urobilinogen 1.0 H Ur Leukocyte Esterase Negative Urine RBC 0 - 2 Urine WBC 1 - 3 Ur Epithelial Cells 3 - 4 Hyaline Casts 0 - 2 Ur Random Creatinine Ur Random Sodium Ur Random Potassium Ur Random Urea Nitrogn Salicylates Urine Opiates Screen Negative Urine Methadone Screen Positive H Acetaminophen Ur Barbiturates Screen Negative Ur Phencyclidine Scrn Negative Ur Amphetamines Screen Negative U Benzodiazepines Scrn Negative U Oth Cocaine Metabols Negative U Cannabinoids Screen Negative RPR 06/02/18 06/03/18 06/03/18 23:59 00:45 02:55 WBC RBC Hgb Hct MCV MCH MCHC RDW Plt Count MPV Gran % Lymph % (Auto) Swain % (Auto) Eos % (Auto) Baso % (Auto) Gran # Lymph # (Auto) Swain # (Auto) Eos # (Auto) Baso # (Auto) pCO2 44 pO2 66.0 L HCO3 24.9 ABG pH 7.36 ABG Total CO2 26.3 ABG O2 Saturation 93.8 L ABG Base Excess -0.8 ABG Potassium 3.8 Sodium 138.0 Chloride 109.0 H Glucose 127 H Lactate 1.3 FiO2 28.0 Potassium Carbon Dioxide Anion Gap BUN Creatinine Est GFR ( Amer) Est GFR (Non-Af Amer) POC Glucose (mg/dL) 113 H Random Glucose Calcium Total Bilirubin AST ALT Alkaline Phosphatase Ammonia 9 Lactate Dehydrogenase Total Creatine Kinase Troponin I Total Protein Albumin Globulin Albumin/Globulin Ratio Procalcitonin Arterial Blood Potassium 3.8 Urine Color Urine Appearance Urine pH Ur Specific [place] Urine Protein Urine Glucose (UA) Urine Ketones Urine Blood Urine Nitrate Urine Bilirubin Urine Urobilinogen Ur Leukocyte Esterase Urine RBC Urine WBC Ur Epithelial Cells Hyaline Casts Ur Random Creatinine Ur Random Sodium Ur Random Potassium Ur Random Urea Nitrogn Salicylates Urine Opiates Screen Urine Methadone Screen Acetaminophen Ur Barbiturates Screen Ur Phencyclidine Scrn Ur Amphetamines Screen U Benzodiazepines Scrn U Oth Cocaine Metabols U Cannabinoids Screen RPR 06/03/18 06/03/18 06/03/18 02:55 02:55 02:55 WBC 8.6 D RBC 3.89 Hgb 10.1 L Hct 32.6 L MCV 83.8 MCH 26.0 MCHC 31.0 RDW 18.5 H Plt Count 109 L MPV 10.7 Gran % 79.3 H Lymph % (Auto) 13.5 L Swain % (Auto) 4.3 Eos % (Auto) 2.7 Baso % (Auto) 0.2 Gran # 6.79 H Lymph # (Auto) 1.2 Swain # (Auto) 0.4 Eos # (Auto) 0.2 Baso # (Auto) 0.02 pCO2 pO2 HCO3 ABG pH ABG Total CO2 ABG O2 Saturation ABG Base Excess ABG Potassium Sodium 138 Chloride 103 Glucose Lactate FiO2 Potassium 4.2 Carbon Dioxide 29 Anion Gap 10 BUN 46 H Creatinine 2.3 H Est GFR ( Amer) 29 Est GFR (Non-Af Amer) 24 POC Glucose (mg/dL) Random Glucose 105 Calcium 8.2 L Total Bilirubin 0.9 AST 1611 H ALT 958 H Alkaline Phosphatase 119 Ammonia Lactate Dehydrogenase 3002 H Total Creatine Kinase 70 Troponin I 0.26 H* D Total Protein 6.0 Albumin 2.3 L Globulin 3.6 Albumin/Globulin Ratio 0.6 L Procalcitonin 8.43 H Arterial Blood Potassium Urine Color Urine Appearance Urine pH Ur Specific [place] Urine Protein Urine Glucose (UA) Urine Ketones Urine Blood Urine Nitrate Urine Bilirubin Urine Urobilinogen Ur Leukocyte Esterase Urine RBC Urine WBC Ur Epithelial Cells Hyaline Casts Ur Random Creatinine Ur Random Sodium Ur Random Potassium Ur Random Urea Nitrogn Salicylates Urine Opiates Screen Urine Methadone Screen Acetaminophen Ur Barbiturates Screen Ur Phencyclidine Scrn Ur Amphetamines Screen U Benzodiazepines Scrn U Oth Cocaine Metabols U Cannabinoids Screen RPR 06/03/18 06/03/18 06/03/18 06:30 07:26 08:40 WBC RBC Hgb Hct MCV MCH MCHC RDW Plt Count MPV Gran % Lymph % (Auto) Swain % (Auto) Eos % (Auto) Baso % (Auto) Gran # Lymph # (Auto) Swain # (Auto) Eos # (Auto) Baso # (Auto) pCO2 pO2 HCO3 ABG pH ABG Total CO2 ABG O2 Saturation ABG Base Excess ABG Potassium Sodium Chloride Glucose Lactate FiO2 Potassium Carbon Dioxide Anion Gap BUN Creatinine Est GFR ( Amer) Est GFR (Non-Af Amer) POC Glucose (mg/dL) 69 Random Glucose Calcium Total Bilirubin AST ALT Alkaline Phosphatase Ammonia Lactate Dehydrogenase 3049 H Total Creatine Kinase 52 Troponin I 0.23 H* Total Protein Albumin Globulin Albumin/Globulin Ratio Procalcitonin Arterial Blood Potassium Urine Color Urine Appearance Urine pH Ur Specific [place] Urine Protein Urine Glucose (UA) Urine Ketones Urine Blood Urine Nitrate Urine Bilirubin Urine Urobilinogen Ur Leukocyte Esterase Urine RBC Urine WBC Ur Epithelial Cells Hyaline Casts Ur Random Creatinine Ur Random Sodium Ur Random Potassium Ur Random Urea Nitrogn Salicylates Urine Opiates Screen Urine Methadone Screen Acetaminophen < 10.0 L Ur Barbiturates Screen Ur Phencyclidine Scrn Ur Amphetamines Screen U Benzodiazepines Scrn U Oth Cocaine Metabols U Cannabinoids Screen RPR 06/03/18 06/03/18 06/03/18 08:45 10:33 10:53 WBC RBC Hgb Hct MCV MCH MCHC RDW Plt Count MPV Gran % Lymph % (Auto) Swain % (Auto) Eos % (Auto) Baso % (Auto) Gran # Lymph # (Auto) Swain # (Auto) Eos # (Auto) Baso # (Auto) pCO2 pO2 HCO3 ABG pH ABG Total CO2 ABG O2 Saturation ABG Base Excess ABG Potassium Sodium Chloride Glucose Lactate FiO2 Potassium Carbon Dioxide Anion Gap BUN Creatinine Est GFR ( Amer) Est GFR (Non-Af Amer) POC Glucose (mg/dL) Random Glucose Calcium Total Bilirubin AST ALT Alkaline Phosphatase Ammonia Lactate Dehydrogenase Total Creatine Kinase Troponin I Total Protein Albumin Globulin Albumin/Globulin Ratio Procalcitonin Arterial Blood Potassium Urine Color Urine Appearance Urine pH Ur Specific [place] Urine Protein Urine Glucose (UA) Urine Ketones Urine Blood Urine Nitrate Urine Bilirubin Urine Urobilinogen Ur Leukocyte Esterase Urine RBC Urine WBC Ur Epithelial Cells Hyaline Casts Ur Random Creatinine Ur Random Sodium 109 Ur Random Potassium 12.8 Ur Random Urea Nitrogn Salicylates < 1 L Urine Opiates Screen Urine Methadone Screen Acetaminophen < 10.0 L Ur Barbiturates Screen Ur Phencyclidine Scrn Ur Amphetamines Screen U Benzodiazepines Scrn U Oth Cocaine Metabols U Cannabinoids Screen RPR Nonreactive 06/03/18 06/03/18 06/03/18 11:32 15:30 19:30 WBC RBC Hgb Hct MCV MCH MCHC RDW Plt Count MPV Gran % Lymph % (Auto) Swain % (Auto) Eos % (Auto) Baso % (Auto) Gran # Lymph # (Auto) Swain # (Auto) Eos # (Auto) Baso # (Auto) pCO2 pO2 HCO3 ABG pH ABG Total CO2 ABG O2 Saturation ABG Base Excess ABG Potassium Sodium Chloride Glucose Lactate FiO2 Potassium Carbon Dioxide Anion Gap BUN Creatinine Est GFR ( Amer) Est GFR (Non-Af Amer) POC Glucose (mg/dL) 109 Random Glucose Calcium Total Bilirubin AST ALT Alkaline Phosphatase Ammonia Lactate Dehydrogenase 4204 H Total Creatine Kinase 48 Troponin I 0.22 H* Total Protein Albumin Globulin Albumin/Globulin Ratio Procalcitonin Arterial Blood Potassium Urine Color Urine Appearance Urine pH Ur Specific [place] Urine Protein Urine Glucose (UA) Urine Ketones Urine Blood Urine Nitrate Urine Bilirubin Urine Urobilinogen Ur Leukocyte Esterase Urine RBC Urine WBC Ur Epithelial Cells Hyaline Casts Ur Random Creatinine 20 Ur Random Sodium Ur Random Potassium Ur Random Urea Nitrogn 186 Salicylates Urine Opiates Screen Urine Methadone Screen Acetaminophen Ur Barbiturates Screen Ur Phencyclidine Scrn Ur Amphetamines Screen U Benzodiazepines Scrn U Oth Cocaine Metabols U Cannabinoids Screen RPR
[2018-06-02] MEDS ORDERED: Meropenem IV 1 gm in NS 50 ML IVPB SCH ×2 (23:00→23:05)
[2018-06-02 23:08] LABS: URINE BILIRUBIN NEGATIVE (NEGATIVE); URINE BLOOD TRACE-INTACT (NEGATIVE); URINE GLUCOSE (UA) NEGATIVE (NEGATIVE); URINE LEUKOCYTE ESTERASE NEGATIVE Leu/uL (NEGATIVE); URINE PROTEIN 30 mg/dL (<30 mg/dL)
[2018-06-02 23:14] LABS: URINE APPEARANCE CLEAR (CLEAR); URINE COLOR YELLOW (YELLOW)
[2018-06-02 23:19] LABS: BENZODIAZEPINES, UR NEGATIVE (NEGATIVE); PHENCYCLIDINE, UR NEGATIVE (NEGATIVE)
[2018-06-02 23:20] LABS: BARBITURATES, UR NEGATIVE (NEGATIVE); OPIATES, UR NEGATIVE (NEGATIVE); URINE RBC 0 - 2 /hpf (0-2)
[2018-06-02 23:21] LABS: URINE HYALINE CAST 0 - 2 /hpf
[2018-06-03 00:55] LABS: ARTERIAL BLOOD GAS HCO3 24.9 mmol/L (21-28); ARTERIAL BLOOD GAS O2 SAT 93.8 % (95-98); ARTERIAL BLOOD GAS PCO2 44 mm/Hg (35-45); ARTERIAL BLOOD GAS PH 7.36 (7.35-7.45); ARTERIAL BLOOD GAS TCO2 26.3 mmol.L (22-28)
[2018-06-03 03:23] LABS: BASO # 0.02 K/mm3 (0.0-2.0); BASO % 0.2 % (0.0-3.0); EOS # 0.2 (0.0-0.7); EOS % 2.7 % (1.5-5.0); GRAN # 6.79 (1.4-6.5); GRAN % 79.3 % (50.0-68.0); HEMOGLOBIN 10.1 g/dL (12.0-16.0); LYMPH # 1.2 (1.2-3.4); LYMPH % 13.5 % (22.0-35.0); MEAN CELL VOLUME 83.8 fl (80.0-105.0); MEAN PLATELET VOLUME 10.7 fl (7.0-11.0); MONO # 0.4 (0.1-0.6); MONO % 4.3 % (1.0-6.0); RBC 3.89 10^6/uL (3.5-6.1); RED CELL DISTRIBUTION WIDTH 18.5 % (11.5-14.5); WHITE BLOOD COUNT 8.6 10^3/ul (4.5-11.0)
[2018-06-03 04:03] LABS: ALB/GLOB RATIO 0.6 (1.1-1.8); ALBUMIN 2.3 g/dL (3.0-4.8); CALCIUM 8.2 mg/dL (8.4-10.5); TROPONIN I 0.26 ng/mL
--- NOTE | 2018-06-03 06:50 | CP.PCM.CON ---
<Balbir Medina - Last Filed: 06/03/18 09:50> History of Present Illness - History of Present Illness History of Present Illness: Subjective: CC: Shortness of breath, lower extremity swelling HPI: Patient is a 37 y/o F with a past medical history of AIDS (CD4 <20 03/11/18), Hep C, PCP pneumonia, EBV, CMV, HSV, CHF, COPD, asthma, hx of heroin abuse who was admitted for evaluation and treatment of CHF exacerbation along with her chronic medical conditions. The nephrology team was consulted for evaluation and treatment of elevated levels of serum nitrogen products. Patient was seen and examined at bedside. States her shortness of breath has improved since admission. Admits to continued swelling in lower extremities. Admits to productive cough. Denies taking NSAIDs on daily basis. Denies urinary urgency, frequency, pain while urinating, blood in urine, and frothy urine. Further denies fever, chills, chest pain, shortness of breath, diarrhea, and constipation. Past Medical History: HIV (CD4 <20 03/11/18), EBV, CMV, HSV, COPD, Asthma, Hx of heroin abuse, Past Surgical History: R anterior neck surgery abscess removal Allergies: TMP/SMX--anaphylaxis, levofloxacin, penicllin, azithromycin, flexeril Social History: Denies alcohol, former tobacco user, IV drug user, former smoker Family history: Father-Diabetes, Mother Hypertension Meds: Non-compliant with HIV meds PMD: Dr. Carter Physical Examination: - Constitutional Appears: Well, Non-toxic, No Acute Distress - Head Exam Head Exam: NORMAL INSPECTION, NORMOCEPHALIC - Eye Exam Eye Exam: EOMI, Normal appearance - ENT Exam ENT Exam: Mucous Membranes Moist, No oral thrush noted, No pharyngitis - Neck Exam Neck exam: Positive for: Normal Inspection - Respiratory Exam Respiratory Exam: normal breathing pattern, rales bilateral lower lobes - Cardiovascular Exam Cardiovascular Exam: normal S1, normal S2 - GI/Abdominal Exam GI & Abdominal Exam: Distended, Soft. absent: Rebound - Extremities Exam Extremities exam: Positive for: +1 pitting edema bilateral lower extremities, pedal edema. Negative for: calf tenderness - Back Exam Back exam: absent: CVA tenderness (L), CVA tenderness (R) - Neurological Exam Neurological exam: Awake, alert, responds to verbal stimuli, follows commands, and moves extremities past midline - Skin Skin Exam: Dry, Intact, Warm Assessment and Plan: Patient is a 37 y/o F with a past medical history of AIDS (CD4 <20 03/11/18), Hep C, PCP pneumonia, EBV, CMV, HSV, CHF, COPD, asthma, hx of heroin abuse who was admitted for evaluation and treatment of CHF exacerbation along with her chronic medical conditions. The nephrology team was consulted for evaluation and treatment of elevated levels of serum nitrogen products. Acute Kidney Injury - BUN and creatinine reviewed, trended, and appreciated- 46 (from 47, baseline ~ 20s) and 2.3 (from 2.7, baseline ~ 0.8 ) - BUN/creatinine ratio- 46/2.3 = 20 - Cardiorenal component noted- will need to maximize intravascular compartment by improving cardiac function with potential subsquent increases in GFR - avoid nephrotoxins- will need to start on lasix 20mg IV daily for diuresis - strict I's Os - daily weights - renally dose abx - urine sodium, potassium, chloride, urea nitrogen ordered and pending - will monitor closely via daily CMP Thank you for the opportunity in participating in the care of this patient. We will continue to follow with you. Patient case discussed with and plan approved by attending physician, Dr. Uriarte. Past Patient History - Infectious Disease Hx of Infectious Diseases: None - Tetanus Immunizations Tetanus Immunization: Unknown - Past Social History Smoking Status: Former Smoker - CARDIAC Hx Cardiac Disorders: Yes - PULMONARY Hx Respiratory Disorders: Yes (has nebulizer machine at home) Hx Asthma: Yes Hx Bronchitis: Yes Hx Chronic Obstructive Pulmonary Disease (COPD): Yes Hx Pneumonia: Yes - NEUROLOGICAL Hx Migraine: Yes - HEENT Hx Macular Degeneration: Yes - RENAL Hx Chronic Kidney Disease: No - ENDOCRINE/METABOLIC Hx Endocrine Disorders: No - HEMATOLOGICAL/ONCOLOGICAL Hx Blood Disorders: Yes (blood transfusion) Hx AIDS: Yes Hx Hepatitis C: Yes (IVDU) - INTEGUMENTARY Hx Dermatological Problems: Yes - MUSCULOSKELETAL/RHEUMATOLOGICAL Hx Musculoskeletal Disorders: Yes Hx Back Pain: Yes Other/Comment: SCOLIOSIS - GASTROINTESTINAL Hx Gastrointestinal Disorders: Yes - GENITOURINARY/GYNECOLOGICAL Hx Genitourinary Disorders: Yes Hx Urinary Tract Infection: Yes - PSYCHIATRIC Hx Psychophysiologic Disorder: Yes Hx Anxiety: Yes Hx Substance Use: No Other/Comment: hx ivdu/cocaine stopped 6 yrs ago on methadone program, smokes 1 ppd has not smoked in 4 days - SURGICAL HISTORY Other/Comment: right anterior neck SX for abcesses bx neg - ANESTHESIA Hx Anesthesia: Yes Hx Anesthesia Reactions: No Hx Malignant Hyperthermia: No Meds Allergies/Adverse Reactions: Allergies Allergy/AdvReac Type Severity Reaction Status Date / Time levofloxacin [From Levaquin] Allergy RASH Verified 05/19/18 10:22 Penicillins Allergy RASH Verified 05/19/18 10:22 sulfamethoxazole Allergy ANGIOEDEMA Verified 05/19/18 10:22 [From Bactrim] trimethoprim [From Bactrim] Allergy ANGIOEDEMA Verified 05/19/18 10:22 azithromycin [From Zithromax] AdvReac RASH Verified 05/19/18 10:22 flexeril AdvReac RASH Uncoded 05/19/18 10:22 - Medications Medications: Current Medications Albuterol/Ipratropium (Duoneb 3 Mg/0.5 Mg (3 Ml) Ud) 3 ml IH [id number] [facility] Clindamycin HCl (Cleocin) 300 mg PO Q8H [facility] PRN Reason: Protocol Last Admin: 06/03/18 00:44 Dose: 300 mg Acyclovir 600 mg/ Sodium (Chloride) 100 mls @ 100 mls/hr IV Q12H [facility] PRN Reason: Protocol Last Admin: 06/02/18 23:44 Dose: Not Given Meropenem (Merrem Iv 1 Gm Premix) 50 mls @ 100 mls/hr IVPB Q12H [facility] PRN Reason: Protocol Stop: 06/03/18 10:01 Last Admin: 06/02/18 23:43 Dose: Not Given Primaquine Phosphate (Primaquine) 26.3 mg PO DAILY [facility] PRN Reason: Protocol Results - Vital Signs Recent Vital Signs: Last Vital Signs Temp 97.6 F 06/03/18 06:00 Pulse 81 06/03/18 06:00 Resp 21 06/03/18 06:00 BP 101/66 06/03/18 06:00 Pulse Ox 97 06/02/18 23:07 - Labs Result Diagrams: 06/03/18 02:55 06/03/18 02:55 Labs: Laboratory Results - last 24 hr 06/02/18 06/02/18 06/02/18 22:26 22:49 22:49 WBC RBC Hgb Hct MCV MCH MCHC RDW Plt Count MPV Gran % Lymph % (Auto) [place] % (Auto) Eos % (Auto) Baso % (Auto) Gran # Lymph # (Auto) [place] # (Auto) Eos # (Auto) Baso # (Auto) pCO2 pO2 HCO3 ABG pH ABG Total CO2 ABG O2 Saturation ABG Base Excess ABG Potassium Sodium Chloride Glucose Lactate FiO2 Potassium Carbon Dioxide Anion Gap BUN Creatinine Est GFR ( Amer) Est GFR (Non-Af Amer) POC Glucose (mg/dL) 51 L Random Glucose Calcium Total Bilirubin AST ALT Alkaline Phosphatase Ammonia Lactate Dehydrogenase Total Creatine Kinase Troponin I Total Protein Albumin Globulin Albumin/Globulin Ratio Arterial Blood Potassium Urine Color Yellow Urine Appearance Clear Urine pH 6.0 Ur Specific [place] 1.025 Urine Protein 30 H Urine Glucose (UA) Negative Urine Ketones Negative Urine Blood Trace-intact H Urine Nitrate Negative Urine Bilirubin Negative Urine Urobilinogen 1.0 H Ur Leukocyte Esterase Negative Urine RBC 0 - 2 Urine WBC 1 - 3 Ur Epithelial Cells 3 - 4 Hyaline Casts 0 - 2 Urine Opiates Screen Negative Urine Methadone Screen Positive H Ur Barbiturates Screen Negative Ur Phencyclidine Scrn Negative Ur Amphetamines Screen Negative U Benzodiazepines Scrn Negative U Oth Cocaine Metabols Negative U Cannabinoids Screen Negative 06/02/18 06/03/18 06/03/18 23:59 00:45 02:55 WBC RBC Hgb Hct MCV MCH MCHC RDW Plt Count MPV Gran % Lymph % (Auto) [place] % (Auto) Eos % (Auto) Baso % (Auto) Gran # Lymph # (Auto) [place] # (Auto) Eos # (Auto) Baso # (Auto) pCO2 44 pO2 66.0 L HCO3 24.9 ABG pH 7.36 ABG Total CO2 26.3 ABG O2 Saturation 93.8 L ABG Base Excess -0.8 ABG Potassium 3.8 Sodium 138.0 Chloride 109.0 H Glucose 127 H Lactate 1.3 FiO2 28.0 Potassium Carbon Dioxide Anion Gap BUN Creatinine Est GFR ( Amer) Est GFR (Non-Af Amer) POC Glucose (mg/dL) 113 H Random Glucose Calcium Total Bilirubin AST ALT Alkaline Phosphatase Ammonia 9 Lactate Dehydrogenase Total Creatine Kinase Troponin I Total Protein Albumin Globulin Albumin/Globulin Ratio Arterial Blood Potassium 3.8 Urine Color Urine Appearance Urine pH Ur Specific [place] Urine Protein Urine Glucose (UA) Urine Ketones Urine Blood Urine Nitrate Urine Bilirubin Urine Urobilinogen Ur Leukocyte Esterase Urine RBC Urine WBC Ur Epithelial Cells Hyaline Casts Urine Opiates Screen Urine Methadone Screen Ur Barbiturates Screen Ur Phencyclidine Scrn Ur Amphetamines Screen U Benzodiazepines Scrn U Oth Cocaine Metabols U Cannabinoids Screen 06/03/18 06/03/18 02:55 02:55 WBC 8.6 D RBC 3.89 Hgb 10.1 L Hct 32.6 L MCV 83.8 MCH 26.0 MCHC 31.0 RDW 18.5 H Plt Count 109 L MPV 10.7 Gran % 79.3 H Lymph % (Auto) 13.5 L [place] % (Auto) 4.3 Eos % (Auto) 2.7 Baso % (Auto) 0.2 Gran # 6.79 H Lymph # (Auto) 1.2 [place] # (Auto) 0.4 Eos # (Auto) 0.2 Baso # (Auto) 0.02 pCO2 pO2 HCO3 ABG pH ABG Total CO2 ABG O2 Saturation ABG Base Excess ABG Potassium Sodium 138 Chloride 103 Glucose Lactate FiO2 Potassium 4.2 Carbon Dioxide 29 Anion Gap 10 BUN 46 H Creatinine 2.3 H Est GFR ( Amer) 29 Est GFR (Non-Af Amer) 24 POC Glucose (mg/dL) Random Glucose 105 Calcium 8.2 L Total Bilirubin 0.9 AST 1611 H ALT 958 H Alkaline Phosphatase 119 Ammonia Lactate Dehydrogenase 3002 H Total Creatine Kinase 70 Troponin I 0.26 H* D Total Protein 6.0 Albumin 2.3 L Globulin 3.6 Albumin/Globulin Ratio 0.6 L Arterial Blood Potassium Urine Color Urine Appearance Urine pH Ur Specific [place] Urine Protein Urine Glucose (UA) Urine Ketones Urine Blood Urine Nitrate Urine Bilirubin Urine Urobilinogen Ur Leukocyte Esterase Urine RBC Urine WBC Ur Epithelial Cells Hyaline Casts Urine Opiates Screen Urine Methadone Screen Ur Barbiturates Screen Ur Phencyclidine Scrn Ur Amphetamines Screen U Benzodiazepines Scrn U Oth Cocaine Metabols U Cannabinoids Screen <Steve Uriarte - Last Filed: 06/04/18 07:10> Meds - Medications Medications: Current Medications Albuterol/Ipratropium (Duoneb 3 Mg/0.5 Mg (3 Ml) Ud) 3 ml IH [id number] [facility] Last Admin: 06/04/18 03:25 Dose: 3 ml Carvedilol (Coreg) 3.125 mg PO BID [facility] Last Admin: 06/03/18 18:41 Dose: Not Given Clindamycin HCl (Cleocin) 600 mg PO 0600,1400,2200 [facility] PRN Reason: Protocol Last Admin: 06/04/18 05:35 Dose: 600 mg Furosemide (Lasix) 40 mg IV DAILY [facility] Acetylcysteine 6,090 mg/ (Dextrose) 1,030.45 mls @ 62.5 mls/hr IVPB ONCE ONE Stop: 06/04/18 07:17 Last Admin: 06/03/18 20:10 Dose: 62.5 mls/hr Methadone HCl (Methadone) 70 mg PO DAILY [facility] Primaquine Phosphate (Primaquine) 26.3 mg PO DAILY [facility] PRN Reason: Protocol Last Admin: 06/03/18 22:12 Dose: Not Given Results - Vital Signs Recent Vital Signs: Last Vital Signs Temp 98.9 F 06/04/18 06:00 Pulse 90 06/04/18 06:00 Resp 18 06/04/18 06:00 BP 120/74 06/04/18 06:00 Pulse Ox 95 06/04/18 06:00 - Labs Result Diagrams: 06/03/18 02:55 06/03/18 02:55 Labs: Laboratory Results - last 24 hr 06/03/18 06/03/18 06/03/18 02:55 06:30 07:26 POC Glucose (mg/dL) 69 Lactate Dehydrogenase Total Creatine Kinase Troponin I Procalcitonin 8.43 H Ur Random Creatinine Ur Random Sodium Ur Random Potassium Ur Random Urea Nitrogn Salicylates Acetaminophen < 10.0 L RPR 06/03/18 06/03/18 06/03/18 08:40 08:45 10:33 POC Glucose (mg/dL) Lactate Dehydrogenase 3049 H Total Creatine Kinase 52 Troponin I 0.23 H* Procalcitonin Ur Random Creatinine Ur Random Sodium 109 Ur Random Potassium 12.8 Ur Random Urea Nitrogn Salicylates < 1 L Acetaminophen < 10.0 L RPR 06/03/18 06/03/18 06/03/18 10:53 11:32 15:30 POC Glucose (mg/dL) 109 Lactate Dehydrogenase 4204 H Total Creatine Kinase 48 Troponin I 0.22 H* Procalcitonin Ur Random Creatinine Ur Random Sodium Ur Random Potassium Ur Random Urea Nitrogn Salicylates Acetaminophen RPR Nonreactive 06/03/18 19:30 POC Glucose (mg/dL) Lactate Dehydrogenase Total Creatine Kinase Troponin I Procalcitonin Ur Random Creatinine 20 Ur Random Sodium Ur Random Potassium Ur Random Urea Nitrogn 186 Salicylates Acetaminophen RPR Attending/Attestation - Attestation I have personally seen and examined this patient.: Yes I have fully participated in the care of the patient.: Yes I have reviewed all pertinent clinical information: Yes Notes (Text): Patient seen and examined; I agree with the resident's note as above with the following additions/edits: 37 yo F w/ pmh of HIV not on HAART, hep C, and cardiomyopathy, admitted with increased dyspnea, found to have acute kidney injury, acute severely decompensated systolic CHF; Wasn't taking any meds at home other than NSAIDS intermittently; improvement in renal function with diuresis indicative of cardiorenal syndrome; patient with anasarca on exam, should continue with IV lasix 40 mg bid; hold MYRNA inhibitor for now; avoid hypokalemia; Has mild proteinuria on UA which is concerning for an underlying renal process in the setting of hep C and HIV; will check random urine for protein and creatinine to quantify; checking complements, rheumatoid factor, cryoglobulin assay; Started on primaquine and clinda for PCP pneumonia by ID, no renal dose adjustment needed; Thank you for this referral, we will continue to follow closely.
[2018-06-03] MEDS: Albuterol-Ipratrop 3 mg / 0.5 (3 ml) UD IH SCH ×4 (08:13→20:16)
--- NOTE | 2018-06-03 09:03 | RAD ---
Date of service: 06/02/2018 HISTORY: cough Patient COMPARISON: 05/22/2018 FINDINGS: LUNGS: Stable appearance of right lower lobe infiltrates PLEURA: No significant pleural effusion identified, no pneumothorax apparent. CARDIOVASCULAR: Normal. OSSEOUS STRUCTURES: No significant abnormalities. VISUALIZED UPPER ABDOMEN: Normal. OTHER FINDINGS: None. IMPRESSION: Stable appearance of right lower lobe infiltrates
[2018-06-03 10:16] LABS: TROPONIN I 0.23 ng/mL
[2018-06-03] MEDS ORDERED: WATER IVPB ONE ×3 (10:41→14:48)
[2018-06-03] MEDS ORDERED: ACETYLCYSTEINE IVPB ONE ×3 (10:41→14:48)
[2018-06-03] MEDS ORDERED: DEXTROSE 5% IVPB ONE ×3 (10:41→14:48)
[2018-06-03 10:43] LABS: ACETAMINOPHEN < 10.0 ug/ml (10.0-20.0); SALICYLATE < 1 mg/dL (2.0-20.0)
--- NOTE | 2018-06-03 12:09 | US ---
Date of service: 06/02/2018 HISTORY: Ascites COMPARISON: 05/19/2018 abdominal ultrasound TECHNIQUE: Sonographic evaluation of the abdomen. FINDINGS: LIVER: Measures 19.2 cm. Patent portal vein. Portal venous flow: Hepatopetal. Unremarkable echogenicity of the liver parenchyma. No mass. No intrahepatic bile duct dilatation. GALLBLADDER: Unremarkable. No gallstones. COMMON BILE DUCT: Measures 4.5 mm. No stones. No dilatation. PANCREAS: Unremarkable as visualized. No mass. No ductal dilatation. RIGHT KIDNEY: Measures 3.9 x 11.0cm. Normal echogenicity. No calculus, mass, or hydronephrosis. LEFT KIDNEY: Measures 3.8 x 9.6cm. Normal echogenicity. No calculus, mass, or hydronephrosis. SPLEEN: Mild splenomegaly. AORTA: No aneurysmal dilatation. IVC: Unremarkable. OTHER FINDINGS: Incompletely visualized intra-abdominal ascites primarily right upper quadrant. IMPRESSION: Stable hepatosplenomegaly. Low volume intra-abdominal ascites. Concordant results (preliminary interpretation) provided by [facility]. Procedure Completed: 22:19 Preliminary ([facility]) Report: Dictated and Authenticated: 22:42 Final Interpretation: 12:07. June 03, 2018.
--- NOTE | 2018-06-03 12:47 | CP.PCM.CON ---
<Judy Fitzpatrick - Last Filed: 06/03/18 13:46> History of Present Illness - History of Present Illness History of Present Illness: PGY-3 infectious diseae consult ote for Dr. Granado' service 37 yo femlae with PMH of end stage AIDS (CD4 <20 03/11/18), Hep C, CHF, COPD, Asthma, Hx of IV heroin abuse, noncomplience presents with complaints of increased diffuse swelling, shortness of breath for the past 3 days. Pt was recently admitted to the hospital about 2 weeks ago for respiratory failure, during hospital course patient was intubated and diagnosed with pneumonia. Patient signed out AMA at that time. Patient reports that her lower extremity swelling and SOB did not improve after leaving the hospital over the past few days she has noticed progressively worsening of her swelling and shortness of breath. She states she was unable to obtain her HIV and antibiotic medications because of "pre-authorization" issues. She denies chest pain, nausea, vomiting, diarrhea, constipation, headache, dizziness, dysuria, arthraglia, muscle weakness, rash. PMH: HIV (CD4 <20 03/11/18), EBV, CMV, HSV, COPD, Asthma, History of IV heroin abuse (last use 5 yo, currently on methadone) PSH: Right anterior neck surgery abscess removal Social History: former IV drug abuse, former smoker (quit 1 week ago, previously smoked 12ppd), Denies alcohol Allergies: Bactrim-anaphylaxis, levofloxacin, penicillin, azithromycin, flexeril - rash Review of Systems - Review of Systems All systems: reviewed and no additional remarkable complaints except Past Patient History - Infectious Disease Hx of Infectious Diseases: None - Tetanus Immunizations Tetanus Immunization: Unknown - Past Social History Smoking Status: Former Smoker - CARDIAC Hx Cardiac Disorders: Yes - PULMONARY Hx Respiratory Disorders: Yes (has nebulizer machine at home) Hx Asthma: Yes Hx Bronchitis: Yes Hx Chronic Obstructive Pulmonary Disease (COPD): Yes Hx Pneumonia: Yes - NEUROLOGICAL Hx Migraine: Yes - HEENT Hx Macular Degeneration: Yes - RENAL Hx Chronic Kidney Disease: No - ENDOCRINE/METABOLIC Hx Endocrine Disorders: No - HEMATOLOGICAL/ONCOLOGICAL Hx Blood Disorders: Yes (blood transfusion) Hx AIDS: Yes Hx Hepatitis C: Yes (IVDU) - INTEGUMENTARY Hx Dermatological Problems: Yes - MUSCULOSKELETAL/RHEUMATOLOGICAL Hx Musculoskeletal Disorders: Yes Hx Back Pain: Yes Other/Comment: SCOLIOSIS - GASTROINTESTINAL Hx Gastrointestinal Disorders: Yes - GENITOURINARY/GYNECOLOGICAL Hx Genitourinary Disorders: Yes Hx Urinary Tract Infection: Yes - PSYCHIATRIC Hx Psychophysiologic Disorder: Yes Hx Anxiety: Yes Hx Substance Use: No Other/Comment: hx ivdu/cocaine stopped 6 yrs ago on methadone program, smokes 1 ppd has not smoked in 4 days - SURGICAL HISTORY Other/Comment: right anterior neck SX for abcesses bx neg - ANESTHESIA Hx Anesthesia: Yes Hx Anesthesia Reactions: No Hx Malignant Hyperthermia: No Meds Allergies/Adverse Reactions: Allergies Allergy/AdvReac Type Severity Reaction Status Date / Time levofloxacin [From Levaquin] Allergy RASH Verified 05/19/18 10:22 Penicillins Allergy RASH Verified 05/19/18 10:22 sulfamethoxazole Allergy ANGIOEDEMA Verified 05/19/18 10:22 [From Bactrim] trimethoprim [From Bactrim] Allergy ANGIOEDEMA Verified 05/19/18 10:22 azithromycin [From Zithromax] AdvReac RASH Verified 05/19/18 10:22 flexeril AdvReac RASH Uncoded 05/19/18 10:22 - Medications Medications: Current Medications Albuterol/Ipratropium (Duoneb 3 Mg/0.5 Mg (3 Ml) Ud) 3 ml IH [id number] EDSON Last Admin: 06/03/18 08:13 Dose: 3 ml Carvedilol (Coreg) 3.125 mg PO BID EDSON Clindamycin HCl (Cleocin) 600 mg PO Q8H EDSON PRN Reason: Protocol Furosemide (Lasix) 40 mg IV DAILY [facility] Acetylcysteine 3,040 mg/ (Dextrose) 515.2 mls @ 125 mls/hr IVPB ONCE ONE Stop: 06/03/18 14:48 Acetylcysteine 6,090 mg/ (Dextrose) 1,030.45 mls @ 62.5 mls/hr IVPB ONCE ONE Stop: 06/04/18 07:17 Methadone HCl (Methadone) 70 mg PO DAILY EDSON Primaquine Phosphate (Primaquine) 26.3 mg PO DAILY EDSON PRN Reason: Protocol Physical Exam - Constitutional Appears: Chronically Ill - Head Exam Head Exam: ATRAUMATIC, NORMAL INSPECTION, NORMOCEPHALIC - Eye Exam Eye Exam: Normal appearance - ENT Exam ENT Exam: Mucous Membranes Moist, Normal Oropharynx (no oral thrush) - Respiratory Exam Respiratory Exam: Clear to Auscultation Bilateral, NORMAL BREATHING PATTERN. absent: Rhonchi, Wheezes, Respiratory Distress - Cardiovascular Exam Cardiovascular Exam: REGULAR RHYTHM. absent: Bradycardia, Tachycardia, Diastolic murmur, Systolic Murmur - GI/Abdominal Exam GI & Abdominal Exam: Normal Bowel Sounds, Soft, Tenderness. absent: Diminished Bowel Sounds, Distended, Firm, Guarding - Extremities Exam Extremities exam: Positive for: pedal edema Additional comments: + 2 pitting edema right lower leg, +1 pitting edema left lower leg - Neurological Exam Neurological exam: Alert, Oriented x3 - Skin Skin Exam: Dry, Intact, Normal Color, Warm Results - Vital Signs Recent Vital Signs: Last Vital Signs Temp 98 F 06/03/18 11:49 Pulse 84 06/03/18 11:49 Resp 20 06/03/18 11:49 BP 105/73 06/03/18 11:49 Pulse Ox 97 06/02/18 23:07 - Labs Result Diagrams: 06/03/18 02:55 06/03/18 02:55 Labs: Laboratory Results - last 24 hr 06/02/18 06/02/18 06/02/18 22:26 22:49 22:49 WBC RBC Hgb Hct MCV MCH MCHC RDW Plt Count MPV Gran % Lymph % (Auto) Hall % (Auto) Eos % (Auto) Baso % (Auto) Gran # Lymph # (Auto) Hall # (Auto) Eos # (Auto) Baso # (Auto) pCO2 pO2 HCO3 ABG pH ABG Total CO2 ABG O2 Saturation ABG Base Excess ABG Potassium Sodium Chloride Glucose Lactate FiO2 Potassium Carbon Dioxide Anion Gap BUN Creatinine Est GFR ( Amer) Est GFR (Non-Af Amer) POC Glucose (mg/dL) 51 L Random Glucose Calcium Total Bilirubin AST ALT Alkaline Phosphatase Ammonia Lactate Dehydrogenase Total Creatine Kinase Troponin I Total Protein Albumin Globulin Albumin/Globulin Ratio Arterial Blood Potassium Urine Color Yellow Urine Appearance Clear Urine pH 6.0 Ur Specific [place] 1.025 Urine Protein 30 H Urine Glucose (UA) Negative Urine Ketones Negative Urine Blood Trace-intact H Urine Nitrate Negative Urine Bilirubin Negative Urine Urobilinogen 1.0 H Ur Leukocyte Esterase Negative Urine RBC 0 - 2 Urine WBC 1 - 3 Ur Epithelial Cells 3 - 4 Hyaline Casts 0 - 2 Ur Random Sodium Ur Random Potassium Salicylates Urine Opiates Screen Negative Urine Methadone Screen Positive H Acetaminophen Ur Barbiturates Screen Negative Ur Phencyclidine Scrn Negative Ur Amphetamines Screen Negative U Benzodiazepines Scrn Negative U Oth Cocaine Metabols Negative U Cannabinoids Screen Negative 06/02/18 06/03/18 06/03/18 23:59 00:45 02:55 WBC RBC Hgb Hct MCV MCH MCHC RDW Plt Count MPV Gran % Lymph % (Auto) Hall % (Auto) Eos % (Auto) Baso % (Auto) Gran # Lymph # (Auto) Hall # (Auto) Eos # (Auto) Baso # (Auto) pCO2 44 pO2 66.0 L HCO3 24.9 ABG pH 7.36 ABG Total CO2 26.3 ABG O2 Saturation 93.8 L ABG Base Excess -0.8 ABG Potassium 3.8 Sodium 138.0 Chloride 109.0 H Glucose 127 H Lactate 1.3 FiO2 28.0 Potassium Carbon Dioxide Anion Gap BUN Creatinine Est GFR ( Amer) Est GFR (Non-Af Amer) POC Glucose (mg/dL) 113 H Random Glucose Calcium Total Bilirubin AST ALT Alkaline Phosphatase Ammonia 9 Lactate Dehydrogenase Total Creatine Kinase Troponin I Total Protein Albumin Globulin Albumin/Globulin Ratio Arterial Blood Potassium 3.8 Urine Color Urine Appearance Urine pH Ur Specific [place] Urine Protein Urine Glucose (UA) Urine Ketones Urine Blood Urine Nitrate Urine Bilirubin Urine Urobilinogen Ur Leukocyte Esterase Urine RBC Urine WBC Ur Epithelial Cells Hyaline Casts Ur Random Sodium Ur Random Potassium Salicylates Urine Opiates Screen Urine Methadone Screen Acetaminophen Ur Barbiturates Screen Ur Phencyclidine Scrn Ur Amphetamines Screen U Benzodiazepines Scrn U Oth Cocaine Metabols U Cannabinoids Screen 06/03/18 06/03/18 06/03/18 02:55 02:55 06:30 WBC 8.6 D RBC 3.89 Hgb 10.1 L Hct 32.6 L MCV 83.8 MCH 26.0 MCHC 31.0 RDW 18.5 H Plt Count 109 L MPV 10.7 Gran % 79.3 H Lymph % (Auto) 13.5 L Hall % (Auto) 4.3 Eos % (Auto) 2.7 Baso % (Auto) 0.2 Gran # 6.79 H Lymph # (Auto) 1.2 Hall # (Auto) 0.4 Eos # (Auto) 0.2 Baso # (Auto) 0.02 pCO2 pO2 HCO3 ABG pH ABG Total CO2 ABG O2 Saturation ABG Base Excess ABG Potassium Sodium 138 Chloride 103 Glucose Lactate FiO2 Potassium 4.2 Carbon Dioxide 29 Anion Gap 10 BUN 46 H Creatinine 2.3 H Est GFR ( Amer) 29 Est GFR (Non-Af Amer) 24 POC Glucose (mg/dL) Random Glucose 105 Calcium 8.2 L Total Bilirubin 0.9 AST 1611 H ALT 958 H Alkaline Phosphatase 119 Ammonia Lactate Dehydrogenase 3002 H Total Creatine Kinase 70 Troponin I 0.26 H* D Total Protein 6.0 Albumin 2.3 L Globulin 3.6 Albumin/Globulin Ratio 0.6 L Arterial Blood Potassium Urine Color Urine Appearance Urine pH Ur Specific [place] Urine Protein Urine Glucose (UA) Urine Ketones Urine Blood Urine Nitrate Urine Bilirubin Urine Urobilinogen Ur Leukocyte Esterase Urine RBC Urine WBC Ur Epithelial Cells Hyaline Casts Ur Random Sodium Ur Random Potassium Salicylates Urine Opiates Screen Urine Methadone Screen Acetaminophen < 10.0 L Ur Barbiturates Screen Ur Phencyclidine Scrn Ur Amphetamines Screen U Benzodiazepines Scrn U Oth Cocaine Metabols U Cannabinoids Screen 06/03/18 06/03/18 06/03/18 07:26 08:40 08:45 WBC RBC Hgb Hct MCV MCH MCHC RDW Plt Count MPV Gran % Lymph % (Auto) Hall % (Auto) Eos % (Auto) Baso % (Auto) Gran # Lymph # (Auto) Hall # (Auto) Eos # (Auto) Baso # (Auto) pCO2 pO2 HCO3 ABG pH ABG Total CO2 ABG O2 Saturation ABG Base Excess ABG Potassium Sodium Chloride Glucose Lactate FiO2 Potassium Carbon Dioxide Anion Gap BUN Creatinine Est GFR ( Amer) Est GFR (Non-Af Amer) POC Glucose (mg/dL) 69 Random Glucose Calcium Total Bilirubin AST ALT Alkaline Phosphatase Ammonia Lactate Dehydrogenase 3049 H Total Creatine Kinase 52 Troponin I 0.23 H* Total Protein Albumin Globulin Albumin/Globulin Ratio Arterial Blood Potassium Urine Color Urine Appearance Urine pH Ur Specific [place] Urine Protein Urine Glucose (UA) Urine Ketones Urine Blood Urine Nitrate Urine Bilirubin Urine Urobilinogen Ur Leukocyte Esterase Urine RBC Urine WBC Ur Epithelial Cells Hyaline Casts Ur Random Sodium 109 Ur Random Potassium 12.8 Salicylates Urine Opiates Screen Urine Methadone Screen Acetaminophen Ur Barbiturates Screen Ur Phencyclidine Scrn Ur Amphetamines Screen U Benzodiazepines Scrn U Oth Cocaine Metabols U Cannabinoids Screen 06/03/18 06/03/18 10:33 11:32 WBC RBC Hgb Hct MCV MCH MCHC RDW Plt Count MPV Gran % Lymph % (Auto) Hall % (Auto) Eos % (Auto) Baso % (Auto) Gran # Lymph # (Auto) Hall # (Auto) Eos # (Auto) Baso # (Auto) pCO2 pO2 HCO3 ABG pH ABG Total CO2 ABG O2 Saturation ABG Base Excess ABG Potassium Sodium Chloride Glucose Lactate FiO2 Potassium Carbon Dioxide Anion Gap BUN Creatinine Est GFR ( Amer) Est GFR (Non-Af Amer) POC Glucose (mg/dL) 109 Random Glucose Calcium Total Bilirubin AST ALT Alkaline Phosphatase Ammonia Lactate Dehydrogenase Total Creatine Kinase Troponin I Total Protein Albumin Globulin Albumin/Globulin Ratio Arterial Blood Potassium Urine Color Urine Appearance Urine pH Ur Specific [place] Urine Protein Urine Glucose (UA) Urine Ketones Urine Blood Urine Nitrate Urine Bilirubin Urine Urobilinogen Ur Leukocyte Esterase Urine RBC Urine WBC Ur Epithelial Cells Hyaline Casts Ur Random Sodium Ur Random Potassium Salicylates < 1 L Urine Opiates Screen Urine Methadone Screen Acetaminophen < 10.0 L Ur Barbiturates Screen Ur Phencyclidine Scrn Ur Amphetamines Screen U Benzodiazepines Scrn U Oth Cocaine Metabols U Cannabinoids Screen Assessment & Plan - Assessment and Plan (Free Text) Assessment: 37 yo female with PMH of end stage AIDS (CD4 <20 03/11/18), Hep C, CHF, COPD, Asthma, Hx of IV heroin abuse, noncompliance presents with complaints of increased diffuse swelling, shortness of breath. Patient is also found to have markedly elevated LFT's and BERNICE. Restart clindamycin and primaquine for PCP. Will order RPR, quantiferone, HCV PCR. We will order AFB blood cultures to rule out MAC infection. Consider liver biopsy for determine cause of transaminitis. case reviewed and discussed with Dr. Granado <Manpreet Granado - Last Filed: 06/03/18 16:44> Meds - Medications Medications: Current Medications Albuterol/Ipratropium (Duoneb 3 Mg/0.5 Mg (3 Ml) Ud) 3 ml IH [id number] EDSON Last Admin: 06/03/18 14:04 Dose: 3 ml Carvedilol (Coreg) 3.125 mg PO BID EDSON Clindamycin HCl (Cleocin) 600 mg PO Q8H EDSON PRN Reason: Protocol Last Admin: 06/03/18 14:30 Dose: 600 mg Furosemide (Lasix) 40 mg IV DAILY [facility] Acetylcysteine 6,090 mg/ (Dextrose) 1,030.45 mls @ 62.5 mls/hr IVPB ONCE ONE Stop: 06/04/18 07:17 Methadone HCl (Methadone) 70 mg PO DAILY [facility] Primaquine Phosphate (Primaquine) 26.3 mg PO DAILY EDSON PRN Reason: Protocol Results - Vital Signs Recent Vital Signs: Last Vital Signs Temp 98 F 06/03/18 11:49 Pulse 84 06/03/18 11:49 Resp 20 06/03/18 11:49 BP 105/73 06/03/18 13:55 Pulse Ox 97 06/02/18 23:07 - Labs Result Diagrams: 06/03/18 02:55 06/03/18 02:55 Labs: Laboratory Results - last 24 hr 06/02/18 06/02/18 06/02/18 22:26 22:49 22:49 WBC RBC Hgb Hct MCV MCH MCHC RDW Plt Count MPV Gran % Lymph % (Auto) Hall % (Auto) Eos % (Auto) Baso % (Auto) Gran # Lymph # (Auto) Hall # (Auto) Eos # (Auto) Baso # (Auto) pCO2 pO2 HCO3 ABG pH ABG Total CO2 ABG O2 Saturation ABG Base Excess ABG Potassium Sodium Chloride Glucose Lactate FiO2 Potassium Carbon Dioxide Anion Gap BUN Creatinine Est GFR ( Amer) Est GFR (Non-Af Amer) POC Glucose (mg/dL) 51 L Random Glucose Calcium Total Bilirubin AST ALT Alkaline Phosphatase Ammonia Lactate Dehydrogenase Total Creatine Kinase Troponin I Total Protein Albumin Globulin Albumin/Globulin Ratio Procalcitonin Arterial Blood Potassium Urine Color Yellow Urine Appearance Clear Urine pH 6.0 Ur Specific [place] 1.025 Urine Protein 30 H Urine Glucose (UA) Negative Urine Ketones Negative Urine Blood Trace-intact H Urine Nitrate Negative Urine Bilirubin Negative Urine Urobilinogen 1.0 H Ur Leukocyte Esterase Negative Urine RBC 0 - 2 Urine WBC 1 - 3 Ur Epithelial Cells 3 - 4 Hyaline Casts 0 - 2 Ur Random Sodium Ur Random Potassium Salicylates Urine Opiates Screen Negative Urine Methadone Screen Positive H Acetaminophen Ur Barbiturates Screen Negative Ur Phencyclidine Scrn Negative Ur Amphetamines Screen Negative U Benzodiazepines Scrn Negative U Oth Cocaine Metabols Negative U Cannabinoids Screen Negative 06/02/18 06/03/18 06/03/18 23:59 00:45 02:55 WBC RBC Hgb Hct MCV MCH MCHC RDW Plt Count MPV Gran % Lymph % (Auto) Hall % (Auto) Eos % (Auto) Baso % (Auto) Gran # Lymph # (Auto) Hall # (Auto) Eos # (Auto) Baso # (Auto) pCO2 44 pO2 66.0 L HCO3 24.9 ABG pH 7.36 ABG Total CO2 26.3 ABG O2 Saturation 93.8 L ABG Base Excess -0.8 ABG Potassium 3.8 Sodium 138.0 Chloride 109.0 H Glucose 127 H Lactate 1.3 FiO2 28.0 Potassium Carbon Dioxide Anion Gap BUN Creatinine Est GFR ( Amer) Est GFR (Non-Af Amer) POC Glucose (mg/dL) 113 H Random Glucose Calcium Total Bilirubin AST ALT Alkaline Phosphatase Ammonia 9 Lactate Dehydrogenase Total Creatine Kinase Troponin I Total Protein Albumin Globulin Albumin/Globulin Ratio Procalcitonin Arterial Blood Potassium 3.8 Urine Color Urine Appearance Urine pH Ur Specific [place] Urine Protein Urine Glucose (UA) Urine Ketones Urine Blood Urine Nitrate Urine Bilirubin Urine Urobilinogen Ur Leukocyte Esterase Urine RBC Urine WBC Ur Epithelial Cells Hyaline Casts Ur Random Sodium Ur Random Potassium Salicylates Urine Opiates Screen Urine Methadone Screen Acetaminophen Ur Barbiturates Screen Ur Phencyclidine Scrn Ur Amphetamines Screen U Benzodiazepines Scrn U Oth Cocaine Metabols U Cannabinoids Screen 06/03/18 06/03/18 06/03/18 02:55 02:55 02:55 WBC 8.6 D RBC 3.89 Hgb 10.1 L Hct 32.6 L MCV 83.8 MCH 26.0 MCHC 31.0 RDW 18.5 H Plt Count 109 L MPV 10.7 Gran % 79.3 H Lymph % (Auto) 13.5 L Hall % (Auto) 4.3 Eos % (Auto) 2.7 Baso % (Auto) 0.2 Gran # 6.79 H Lymph # (Auto) 1.2 Hall # (Auto) 0.4 Eos # (Auto) 0.2 Baso # (Auto) 0.02 pCO2 pO2 HCO3 ABG pH ABG Total CO2 ABG O2 Saturation ABG Base Excess ABG Potassium Sodium 138 Chloride 103 Glucose Lactate FiO2 Potassium 4.2 Carbon Dioxide 29 Anion Gap 10 BUN 46 H Creatinine 2.3 H Est GFR ( Amer) 29 Est GFR (Non-Af Amer) 24 POC Glucose (mg/dL) Random Glucose 105 Calcium 8.2 L Total Bilirubin 0.9 AST 1611 H ALT 958 H Alkaline Phosphatase 119 Ammonia Lactate Dehydrogenase 3002 H Total Creatine Kinase 70 Troponin I 0.26 H* D Total Protein 6.0 Albumin 2.3 L Globulin 3.6 Albumin/Globulin Ratio 0.6 L Procalcitonin 8.43 H Arterial Blood Potassium Urine Color Urine Appearance Urine pH Ur Specific [place] Urine Protein Urine Glucose (UA) Urine Ketones Urine Blood Urine Nitrate Urine Bilirubin Urine Urobilinogen Ur Leukocyte Esterase Urine RBC Urine WBC Ur Epithelial Cells Hyaline Casts Ur Random Sodium Ur Random Potassium Salicylates Urine Opiates Screen Urine Methadone Screen Acetaminophen Ur Barbiturates Screen Ur Phencyclidine Scrn Ur Amphetamines Screen U Benzodiazepines Scrn U Oth Cocaine Metabols U Cannabinoids Screen 06/03/18 06/03/18 06/03/18 06:30 07:26 08:40 WBC RBC Hgb Hct MCV MCH MCHC RDW Plt Count MPV Gran % Lymph % (Auto) Hall % (Auto) Eos % (Auto) Baso % (Auto) Gran # Lymph # (Auto) Hall # (Auto) Eos # (Auto) Baso # (Auto) pCO2 pO2 HCO3 ABG pH ABG Total CO2 ABG O2 Saturation ABG Base Excess ABG Potassium Sodium Chloride Glucose Lactate FiO2 Potassium Carbon Dioxide Anion Gap BUN Creatinine Est GFR ( Amer) Est GFR (Non-Af Amer) POC Glucose (mg/dL) 69 Random Glucose Calcium Total Bilirubin AST ALT Alkaline Phosphatase Ammonia Lactate Dehydrogenase 3049 H Total Creatine Kinase 52 Troponin I 0.23 H* Total Protein Albumin Globulin Albumin/Globulin Ratio Procalcitonin Arterial Blood Potassium Urine Color Urine Appearance Urine pH Ur Specific [place] Urine Protein Urine Glucose (UA) Urine Ketones Urine Blood Urine Nitrate Urine Bilirubin Urine Urobilinogen Ur Leukocyte Esterase Urine RBC Urine WBC Ur Epithelial Cells Hyaline Casts Ur Random Sodium Ur Random Potassium Salicylates Urine Opiates Screen Urine Methadone Screen Acetaminophen < 10.0 L Ur Barbiturates Screen Ur Phencyclidine Scrn Ur Amphetamines Screen U Benzodiazepines Scrn U Oth Cocaine Metabols U Cannabinoids Screen 06/03/18 06/03/18 06/03/18 08:45 10:33 11:32 WBC RBC Hgb Hct MCV MCH MCHC RDW Plt Count MPV Gran % Lymph % (Auto) Hall % (Auto) Eos % (Auto) Baso % (Auto) Gran # Lymph # (Auto) Hall # (Auto) Eos # (Auto) Baso # (Auto) pCO2 pO2 HCO3 ABG pH ABG Total CO2 ABG O2 Saturation ABG Base Excess ABG Potassium Sodium Chloride Glucose Lactate FiO2 Potassium Carbon Dioxide Anion Gap BUN Creatinine Est GFR ( Amer) Est GFR (Non-Af Amer) POC Glucose (mg/dL) 109 Random Glucose Calcium Total Bilirubin AST ALT Alkaline Phosphatase Ammonia Lactate Dehydrogenase Total Creatine Kinase Troponin I Total Protein Albumin Globulin Albumin/Globulin Ratio Procalcitonin Arterial Blood Potassium Urine Color Urine Appearance Urine pH Ur Specific [place] Urine Protein Urine Glucose (UA) Urine Ketones Urine Blood Urine Nitrate Urine Bilirubin Urine Urobilinogen Ur Leukocyte Esterase Urine RBC Urine WBC Ur Epithelial Cells Hyaline Casts Ur Random Sodium 109 Ur Random Potassium 12.8 Salicylates < 1 L Urine Opiates Screen Urine Methadone Screen Acetaminophen < 10.0 L Ur Barbiturates Screen Ur Phencyclidine Scrn Ur Amphetamines Screen U Benzodiazepines Scrn U Oth Cocaine Metabols U Cannabinoids Screen 06/03/18 15:30 WBC RBC Hgb Hct MCV MCH MCHC RDW Plt Count MPV Gran % Lymph % (Auto) Hall % (Auto) Eos % (Auto) Baso % (Auto) Gran # Lymph # (Auto) Hall # (Auto) Eos # (Auto) Baso # (Auto) pCO2 pO2 HCO3 ABG pH ABG Total CO2 ABG O2 Saturation ABG Base Excess ABG Potassium Sodium Chloride Glucose Lactate FiO2 Potassium Carbon Dioxide Anion Gap BUN Creatinine Est GFR ( Amer) Est GFR (Non-Af Amer) POC Glucose (mg/dL) Random Glucose Calcium Total Bilirubin AST ALT Alkaline Phosphatase Ammonia Lactate Dehydrogenase 4204 H Total Creatine Kinase 48 Troponin I 0.22 H* Total Protein Albumin Globulin Albumin/Globulin Ratio Procalcitonin Arterial Blood Potassium Urine Color Urine Appearance Urine pH Ur Specific [place] Urine Protein Urine Glucose (UA) Urine Ketones Urine Blood Urine Nitrate Urine Bilirubin Urine Urobilinogen Ur Leukocyte Esterase Urine RBC Urine WBC Ur Epithelial Cells Hyaline Casts Ur Random Sodium Ur Random Potassium Salicylates Urine Opiates Screen Urine Methadone Screen Acetaminophen Ur Barbiturates Screen Ur Phencyclidine Scrn Ur Amphetamines Screen U Benzodiazepines Scrn U Oth Cocaine Metabols U Cannabinoids Screen Assessment & Plan - Assessment and Plan (Free Text) Assessment: Infectious Diseases Attending Physician Addendum Patient seen and examined, discussed with clinical medical assistant. I have reviewed the pertinent clinical information for the patient, including history of present illness, medical, personal and social histories, lab results and imaging findings. I agree with the above findings, assessment and plan. 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 Patient also with transaminitis - discussed with Dr. Centeno - will need liver biopsy - also discussed this with Dr. Bhatti. Will monitor transaminases, check HCV PCR. Patient unable to tolerate PO Zithromax for ARCELIA prophylaxis. Patient also with acute renal failure and Nephrology is following and doing work up. Will monitor clinically.
--- NOTE | 2018-06-03 13:09 | CP.PCM.PN ---
<Jose Manuel Stovall - Last Filed: 06/03/18 13:03> Subjective - Date & Time of Evaluation Date of Evaluation: 06/03/18 Time of Evaluation: 09:00 - Subjective Subjective: Jose Manuel Stovall PGY-1 Progress Note for Hospitalist Service Patient seen and evaluated at bedside. Admits to some leg swelling, nonproductive cough, shortness of breath and nonspecific pain. Denies chest pain , palpitations, dizziness, headaches, abdominal pain, changes in bowel or urinary habits. Objective - Vital Signs/Intake and Output Vital Signs (last 24 hours): Temp Pulse Resp BP Pulse Ox 98 F 84 20 105/73 97 06/03/18 11:49 06/03/18 11:49 06/03/18 11:49 06/03/18 11:49 06/02/18 23:07 Intake and Output: 06/03/18 06/03/18 06:59 18:59 Intake Total 540 Output Total 1000 Balance -460 - Medications Medications: Current Medications Albuterol/Ipratropium (Duoneb 3 Mg/0.5 Mg (3 Ml) Ud) 3 ml IH [id number] [facility]IN Last Admin: 06/03/18 08:13 Dose: 3 ml Carvedilol (Coreg) 3.125 mg PO BID [facility] Clindamycin HCl (Cleocin) 600 mg PO Q8H [facility] PRN Reason: Protocol Furosemide (Lasix) 40 mg IV DAILY [facility] Acetylcysteine 3,040 mg/ (Dextrose) 515.2 mls @ 125 mls/hr IVPB ONCE ONE Stop: 06/03/18 14:48 Acetylcysteine 6,090 mg/ (Dextrose) 1,030.45 mls @ 62.5 mls/hr IVPB ONCE ONE Stop: 06/04/18 07:17 Methadone HCl (Methadone) 70 mg PO DAILY [facility] Primaquine Phosphate (Primaquine) 26.3 mg PO DAILY [facility] PRN Reason: Protocol - Labs Labs: 06/03/18 02:55 06/03/18 02:55 PT 20.8 SECONDS (9.4-12.5) H 06/02/18 18:15 INR 1.80 06/02/18 18:15 APTT 26.7 Seconds (25.1-36.5) 06/02/18 18:15 Physical Exam - Constitutional Appears: Not Well, Non-toxic, No Acute Distress - Head Exam Head Exam: NORMAL INSPECTION, NORMOCEPHALIC - Eye Exam Eye Exam: EOMI, Normal appearance, Periorbital swelling Additional comments: No signs of retinitis - ENT Exam ENT Exam: Mucous Membranes Moist, Normal Exam Additional comments: No oral thrush noted, No pharyngitis - Neck Exam Neck exam: Positive for: Normal Inspection. Negative for: Meningismus - Respiratory Exam Respiratory Exam: Trace Rhonchi at bilateral bases - Cardiovascular Exam Cardiovascular Exam: REGULAR RHYTHM, +S1, +S2 - GI/Abdominal Exam GI & Abdominal Exam: Distended, Soft, tender. absent: Rebound - Extremities Exam Extremities exam: Positive for: joint swelling RLE>LLE , pedal edema. Negative for: calf tenderness bilaterally - Back Exam Back exam: absent: CVA tenderness (L), CVA tenderness (R) - Neurological Exam Neurological exam: Alert, CN II-XII Intact, Oriented x3 - Psychiatric Exam Psychiatric exam: Normal Mood, Withdrawn - Skin Skin Exam: Dry, Intact, Warm Assessment and Plan - Assessment and Plan (Free Text) Assessment: Assessment: 37 y/o F with PMH of AIDS (CD4 <20 03/11/18), Hep C, PCP pneumonia, EBV, CMV, HSV , CHF, COPD, asthma, hx of heroin abuse admitted for multiorgan dysfunction, medication noncompliance, acute liver failure. Plan: Acute on chronic HFpEF Echo (04/14/18): EF 35%. 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 SCD for DVT ppx Likely secondary to shock liver vs HSV hepatitis Alb 2.5 likely 2/2 poor nutritional state Acetaminophen level low x2 NAC started in setting of hepatic failure x 3 doses will continue to monitor levels GI recs: Dr. Centeno - liver biopsy for persistent transaminitis in setting of PCP treatment Troponin Leak 2/2 demand ischemia vs HIV cardiomyopathy No complaints of chest pain, radiation, N/V or diaphoresis likely not ACS Troponin 0.54, 0.26, 0.23 downtrend Therapeutic heparin/lovenox cannot be given due to no IV access. 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 Baseline 0.9. UA + 30 protein, trace blood, 1.0 urobilinogen Urine electrolytes: Na 109, K 12.8. F/u urine Cr Nephrology consult: Colehni Avoid nephrotoxins AIDS Last CD4 <20. Pt noncompliant with antiretrovirals Hx of Hep C, CMV, EBV, PCP pnemonia HCV RNA QUAL (05/23/18): treated with Harvoni, CMV IgG Ab >10 (05/20/18), EBV EA IgG 62.90 (05/20/18) Midline put in this AM for IV access On clindamycin 600mg q8 for RLL infiltrate, Primaquine 26.3 po for PCP tx f/u urine/blood culture ID Consult: Dr. Granado. recs for Clinda and liver biopsy f/u AFB for ? MAC infection Hx COPD Start duoneb q6h benjamin O2 NC prn SOB, maintain SpO2 >90% Hx of substance abuse Hx of methadone dependence UDS + Methadone continued on half normal dose @ 70 will monitor DVT ppx: SCD Patient seen, case reviewed, and plan discussed with Dr. Bhatti. Jose Manuel Stovall, PGY-1 <Cara Bhatti - Last Filed: 06/04/18 13:34> Objective - Vital Signs/Intake and Output Vital Signs (last 24 hours): Temp Pulse Resp BP Pulse Ox 98.1 F 88 20 114/80 91 L 06/04/18 11:23 06/04/18 11:23 06/04/18 11:23 06/04/18 11:23 06/04/18 08:35 Intake and Output: 06/04/18 06/04/18 06:59 18:59 Intake Total 1345 Output Total 2600 Balance -1255 - Medications Medications: Current Medications Albuterol/Ipratropium (Duoneb 3 Mg/0.5 Mg (3 Ml) Ud) 3 ml IH [id number] [facility] Last Admin: 06/04/18 07:22 Dose: 3 ml Carvedilol (Coreg) 3.125 mg PO BID [facility] Last Admin: 06/04/18 09:33 Dose: 3.125 mg Clindamycin HCl (Cleocin) 600 mg PO 0600,1400,2200 [facility] PRN Reason: Protocol Last Admin: 06/04/18 05:35 Dose: 600 mg Furosemide (Lasix) 40 mg IV DAILY [facility] Last Admin: 06/04/18 09:31 Dose: 40 mg Methadone HCl (Methadone) 70 mg PO DAILY [facility] Last Admin: 06/04/18 09:32 Dose: 70 mg Pantoprazole Sodium (Protonix Ec Tab) 40 mg PO 0600 [facility] Primaquine Phosphate (Primaquine) 26.3 mg PO DAILY [facility] PRN Reason: Protocol Last Admin: 06/04/18 09:32 Dose: 26.3 mg Spironolactone (Aldactone) 25 mg PO BID [facility] Last Admin: 06/04/18 11:07 Dose: 25 mg - Labs Labs: 06/04/18 07:00 06/04/18 07:00 PT 20.8 SECONDS (9.4-12.5) H 06/02/18 18:15 INR 1.80 06/02/18 18:15 APTT 26.7 Seconds (25.1-36.5) 06/02/18 18:15 Attending/Attestation - Attestation I have personally seen and examined this patient.: Yes I have fully participated in the care of the patient.: Yes I have reviewed all pertinent clinical information, including history, physical exam and plan: Yes Notes (Text): 06/04/18 13:23 Medical record note made by the resident after discussion with my direction and input after the patient was personally seen and examined by me. I have reviewed the chart and agree that the record accurately reflects by personal performance of the history, physical exam, data review, and medical decision-making, in the course for the patient. I have also personally directed the plan of care. 37 yrs old femlae with PMH of end stage AIDS (CD4 <20 03/11/18), Hep C, CHF, COPD , Asthma, Hx of IV heroin abuse, noncomplience was recently admitted to the hospital about 2 weeks ago for respiratory failure, during hospital course patient was intubated and diagnosed with pneumonia, was treated for PCP Pneumonia, left AMA was admitted last night with increased diffuse swelling, shortness of breath for the past 3 days, found to have acute on chronic CHF exacerbation, acute renal failure and elevated LFT. Acute on chronic CHF, We will start Patient on IV lasix, will follow up BUN and creatinin..Cardiology evaluation is appreciated. Acute renal failure likely due to CHF, will follow up BUN and creatinin with IV diuresis. Elevated LFT, etiology is unclear, avoid hepatotoxic medication, hypotension , patient has been started on Acetylcystine.We will follow up GI consult. Prognosis is guarded.
--- NOTE | 2018-06-03 13:09 | CP.PCM.CON ---
History of Present Illness - History of Present Illness History of Present Illness: Gastroenterology progress note for Dr. Taryn Sepulveda PGY2 Reason for consult: Transaminitis 37 y/o F with PMH of AIDS (CD4 <20 03/11/18), Hep C known treated, EBV, CMV, HSV , CHF, COPD, Asthma, Hx of heroin abuse presents to ED with complaints of increased diffuse swelling, shortness of breath, difficulty breathing and abdominal "tightness" for the past 3 days. Pt was recently admitted for respiratory as well as had several admits for respiratory failure in the past. Patient is also diagnosed with PCP pneumonia for which she is being treated. Patient initially known to be non compliant with HIV therapy, however as per patient she currently is having insurance issues with getting the medications approved. Patient states she came back to the hospital for further evaluation because she feels as though she was still having symptoms of shortness of breath and diffuse body swelling. Patient denies any current abdominal pain, nausea, vomiting, diarrhea, change in bowel habits, loss of appetite. PMD: Dr. Carter PMH: HIV (CD4 <20 03/11/18), EBV, CMV, HSV, COPD, Asthma, Hx of heroin abuse, PSH: R anterior neck surgery abscess removal SH: IV drug user, former smoker, Denies alcohol Allergies: TMP/SMX--anaphylaxis, levofloxacin, penicllin, azithromycin, flexeril Meds: Non-compliant with HIV meds. Review of Systems - Constitutional Constitutional: absent: Anorexia, Chills, Fever - EENT Eyes: absent: Change in Vision Ears: absent: Dizziness - Cardiovascular Cardiovascular: absent: Chest Pain, Dyspnea - Gastrointestinal Gastrointestinal: absent: Abdominal Pain, Constipation, Diarrhea, Nausea, Vomiting - Genitourinary Genitourinary: absent: Dysuria - Musculoskeletal Musculoskeletal: absent: Back Pain - Neurological Neurological: absent: Dizziness, Numbness - Psychiatric Psychiatric: absent: Anxiety - Endocrine Endocrine: absent: Fatigue Past Patient History - Infectious Disease Hx of Infectious Diseases: None - Tetanus Immunizations Tetanus Immunization: Unknown - Past Social History Smoking Status: Former Smoker - CARDIAC Hx Cardiac Disorders: Yes - PULMONARY Hx Respiratory Disorders: Yes (has nebulizer machine at home) Hx Asthma: Yes Hx Bronchitis: Yes Hx Chronic Obstructive Pulmonary Disease (COPD): Yes Hx Pneumonia: Yes - NEUROLOGICAL Hx Migraine: Yes - HEENT Hx Macular Degeneration: Yes - RENAL Hx Chronic Kidney Disease: No - ENDOCRINE/METABOLIC Hx Endocrine Disorders: No - HEMATOLOGICAL/ONCOLOGICAL Hx Blood Disorders: Yes (blood transfusion) Hx AIDS: Yes Hx Hepatitis C: Yes (IVDU) - INTEGUMENTARY Hx Dermatological Problems: Yes - MUSCULOSKELETAL/RHEUMATOLOGICAL Hx Musculoskeletal Disorders: Yes Hx Back Pain: Yes Other/Comment: SCOLIOSIS - GASTROINTESTINAL Hx Gastrointestinal Disorders: Yes - GENITOURINARY/GYNECOLOGICAL Hx Genitourinary Disorders: Yes Hx Urinary Tract Infection: Yes - PSYCHIATRIC Hx Psychophysiologic Disorder: Yes Hx Anxiety: Yes Hx Substance Use: No Other/Comment: hx ivdu/cocaine stopped 6 yrs ago on methadone program, smokes 1 ppd has not smoked in 4 days - SURGICAL HISTORY Other/Comment: right anterior neck SX for abcesses bx neg - ANESTHESIA Hx Anesthesia: Yes Hx Anesthesia Reactions: No Hx Malignant Hyperthermia: No Meds Allergies/Adverse Reactions: Allergies Allergy/AdvReac Type Severity Reaction Status Date / Time levofloxacin [From Levaquin] Allergy RASH Verified 05/19/18 10:22 Penicillins Allergy RASH Verified 05/19/18 10:22 sulfamethoxazole Allergy ANGIOEDEMA Verified 05/19/18 10:22 [From Bactrim] trimethoprim [From Bactrim] Allergy ANGIOEDEMA Verified 05/19/18 10:22 azithromycin [From Zithromax] AdvReac RASH Verified 05/19/18 10:22 flexeril AdvReac RASH Uncoded 05/19/18 10:22 - Medications Medications: Current Medications Albuterol/Ipratropium (Duoneb 3 Mg/0.5 Mg (3 Ml) Ud) 3 ml [id number] [facility] Last Admin: 06/03/18 08:13 Dose: 3 ml Carvedilol (Coreg) 3.125 mg PO BID [facility] Clindamycin HCl (Cleocin) 600 mg PO Q8H [facility] PRN Reason: Protocol Furosemide (Lasix) 40 mg IV DAILY [facility] Acetylcysteine 3,040 mg/ (Dextrose) 515.2 mls @ 125 mls/hr IVPB ONCE ONE Stop: 06/03/18 14:48 Acetylcysteine 6,090 mg/ (Dextrose) 1,030.45 mls @ 62.5 mls/hr IVPB ONCE ONE Stop: 06/04/18 07:17 Methadone HCl (Methadone) 70 mg PO DAILY [facility] Primaquine Phosphate (Primaquine) 26.3 mg PO DAILY [facility] PRN Reason: Protocol Physical Exam - Head Exam Head Exam: ATRAUMATIC, NORMAL INSPECTION, NORMOCEPHALIC - Eye Exam Eye Exam: EOMI, Normal appearance - ENT Exam ENT Exam: Mucous Membranes Moist - Neck Exam Neck exam: Positive for: Normal Inspection - Respiratory Exam Respiratory Exam: NORMAL BREATHING PATTERN - Cardiovascular Exam Cardiovascular Exam: REGULAR RHYTHM, +S1, +S2 - GI/Abdominal Exam GI & Abdominal Exam: Normal Bowel Sounds. absent: Distended, Guarding, Tenderness - Extremities Exam Extremities exam: Positive for: normal inspection - Back Exam Back exam: NORMAL INSPECTION - Neurological Exam Neurological exam: Alert, Oriented x3 - Psychiatric Exam Psychiatric exam: Normal Affect, Normal Mood - Skin Skin Exam: Intact, Normal Color, Warm Results - Vital Signs Recent Vital Signs: Last Vital Signs Temp 98 F 06/03/18 11:49 Pulse 84 06/03/18 11:49 Resp 20 06/03/18 11:49 BP 105/73 06/03/18 11:49 Pulse Ox 97 06/02/18 23:07 - Labs Result Diagrams: 06/03/18 02:55 06/03/18 02:55 Labs: Laboratory Results - last 24 hr 06/02/18 06/02/18 06/02/18 22:26 22:49 22:49 WBC RBC Hgb Hct MCV MCH MCHC RDW Plt Count MPV Gran % Lymph % (Auto) Valley % (Auto) Eos % (Auto) Baso % (Auto) Gran # Lymph # (Auto) Valley # (Auto) Eos # (Auto) Baso # (Auto) pCO2 pO2 HCO3 ABG pH ABG Total CO2 ABG O2 Saturation ABG Base Excess ABG Potassium Sodium Chloride Glucose Lactate FiO2 Potassium Carbon Dioxide Anion Gap BUN Creatinine Est GFR ( Amer) Est GFR (Non-Af Amer) POC Glucose (mg/dL) 51 L Random Glucose Calcium Total Bilirubin AST ALT Alkaline Phosphatase Ammonia Lactate Dehydrogenase Total Creatine Kinase Troponin I Total Protein Albumin Globulin Albumin/Globulin Ratio Arterial Blood Potassium Urine Color Yellow Urine Appearance Clear Urine pH 6.0 Ur Specific Connell 1.025 Urine Protein 30 H Urine Glucose (UA) Negative Urine Ketones Negative Urine Blood Trace-intact H Urine Nitrate Negative Urine Bilirubin Negative Urine Urobilinogen 1.0 H Ur Leukocyte Esterase Negative Urine RBC 0 - 2 Urine WBC 1 - 3 Ur Epithelial Cells 3 - 4 Hyaline Casts 0 - 2 Ur Random Sodium Ur Random Potassium Salicylates Urine Opiates Screen Negative Urine Methadone Screen Positive H Acetaminophen Ur Barbiturates Screen Negative Ur Phencyclidine Scrn Negative Ur Amphetamines Screen Negative U Benzodiazepines Scrn Negative U Oth Cocaine Metabols Negative U Cannabinoids Screen Negative 06/02/18 06/03/18 06/03/18 23:59 00:45 02:55 WBC RBC Hgb Hct MCV MCH MCHC RDW Plt Count MPV Gran % Lymph % (Auto) Valley % (Auto) Eos % (Auto) Baso % (Auto) Gran # Lymph # (Auto) Valley # (Auto) Eos # (Auto) Baso # (Auto) pCO2 44 pO2 66.0 L HCO3 24.9 ABG pH 7.36 ABG Total CO2 26.3 ABG O2 Saturation 93.8 L ABG Base Excess -0.8 ABG Potassium 3.8 Sodium 138.0 Chloride 109.0 H Glucose 127 H Lactate 1.3 FiO2 28.0 Potassium Carbon Dioxide Anion Gap BUN Creatinine Est GFR ( Amer) Est GFR (Non-Af Amer) POC Glucose (mg/dL) 113 H Random Glucose Calcium Total Bilirubin AST ALT Alkaline Phosphatase Ammonia 9 Lactate Dehydrogenase Total Creatine Kinase Troponin I Total Protein Albumin Globulin Albumin/Globulin Ratio Arterial Blood Potassium 3.8 Urine Color Urine Appearance Urine pH Ur Specific Connell Urine Protein Urine Glucose (UA) Urine Ketones Urine Blood Urine Nitrate Urine Bilirubin Urine Urobilinogen Ur Leukocyte Esterase Urine RBC Urine WBC Ur Epithelial Cells Hyaline Casts Ur Random Sodium Ur Random Potassium Salicylates Urine Opiates Screen Urine Methadone Screen Acetaminophen Ur Barbiturates Screen Ur Phencyclidine Scrn Ur Amphetamines Screen U Benzodiazepines Scrn U Oth Cocaine Metabols U Cannabinoids Screen 06/03/18 06/03/18 06/03/18 02:55 02:55 06:30 WBC 8.6 D RBC 3.89 Hgb 10.1 L Hct 32.6 L MCV 83.8 MCH 26.0 MCHC 31.0 RDW 18.5 H Plt Count 109 L MPV 10.7 Gran % 79.3 H Lymph % (Auto) 13.5 L Valley % (Auto) 4.3 Eos % (Auto) 2.7 Baso % (Auto) 0.2 Gran # 6.79 H Lymph # (Auto) 1.2 Valley # (Auto) 0.4 Eos # (Auto) 0.2 Baso # (Auto) 0.02 pCO2 pO2 HCO3 ABG pH ABG Total CO2 ABG O2 Saturation ABG Base Excess ABG Potassium Sodium 138 Chloride 103 Glucose Lactate FiO2 Potassium 4.2 Carbon Dioxide 29 Anion Gap 10 BUN 46 H Creatinine 2.3 H Est GFR ( Amer) 29 Est GFR (Non-Af Amer) 24 POC Glucose (mg/dL) Random Glucose 105 Calcium 8.2 L Total Bilirubin 0.9 AST 1611 H ALT 958 H Alkaline Phosphatase 119 Ammonia Lactate Dehydrogenase 3002 H Total Creatine Kinase 70 Troponin I 0.26 H* D Total Protein 6.0 Albumin 2.3 L Globulin 3.6 Albumin/Globulin Ratio 0.6 L Arterial Blood Potassium Urine Color Urine Appearance Urine pH Ur Specific Connell Urine Protein Urine Glucose (UA) Urine Ketones Urine Blood Urine Nitrate Urine Bilirubin Urine Urobilinogen Ur Leukocyte Esterase Urine RBC Urine WBC Ur Epithelial Cells Hyaline Casts Ur Random Sodium Ur Random Potassium Salicylates Urine Opiates Screen Urine Methadone Screen Acetaminophen < 10.0 L Ur Barbiturates Screen Ur Phencyclidine Scrn Ur Amphetamines Screen U Benzodiazepines Scrn U Oth Cocaine Metabols U Cannabinoids Screen 06/03/18 06/03/18 06/03/18 07:26 08:40 08:45 WBC RBC Hgb Hct MCV MCH MCHC RDW Plt Count MPV Gran % Lymph % (Auto) Valley % (Auto) Eos % (Auto) Baso % (Auto) Gran # Lymph # (Auto) Valley # (Auto) Eos # (Auto) Baso # (Auto) pCO2 pO2 HCO3 ABG pH ABG Total CO2 ABG O2 Saturation ABG Base Excess ABG Potassium Sodium Chloride Glucose Lactate FiO2 Potassium Carbon Dioxide Anion Gap BUN Creatinine Est GFR ( Amer) Est GFR (Non-Af Amer) POC Glucose (mg/dL) 69 Random Glucose Calcium Total Bilirubin AST ALT Alkaline Phosphatase Ammonia Lactate Dehydrogenase 3049 H Total Creatine Kinase 52 Troponin I 0.23 H* Total Protein Albumin Globulin Albumin/Globulin Ratio Arterial Blood Potassium Urine Color Urine Appearance Urine pH Ur Specific Connell Urine Protein Urine Glucose (UA) Urine Ketones Urine Blood Urine Nitrate Urine Bilirubin Urine Urobilinogen Ur Leukocyte Esterase Urine RBC Urine WBC Ur Epithelial Cells Hyaline Casts Ur Random Sodium 109 Ur Random Potassium 12.8 Salicylates Urine Opiates Screen Urine Methadone Screen Acetaminophen Ur Barbiturates Screen Ur Phencyclidine Scrn Ur Amphetamines Screen U Benzodiazepines Scrn U Oth Cocaine Metabols U Cannabinoids Screen 06/03/18 06/03/18 10:33 11:32 WBC RBC Hgb Hct MCV MCH MCHC RDW Plt Count MPV Gran % Lymph % (Auto) Valley % (Auto) Eos % (Auto) Baso % (Auto) Gran # Lymph # (Auto) Valley # (Auto) Eos # (Auto) Baso # (Auto) pCO2 pO2 HCO3 ABG pH ABG Total CO2 ABG O2 Saturation ABG Base Excess ABG Potassium Sodium Chloride Glucose Lactate FiO2 Potassium Carbon Dioxide Anion Gap BUN Creatinine Est GFR ( Amer) Est GFR (Non-Af Amer) POC Glucose (mg/dL) 109 Random Glucose Calcium Total Bilirubin AST ALT Alkaline Phosphatase Ammonia Lactate Dehydrogenase Total Creatine Kinase Troponin I Total Protein Albumin Globulin Albumin/Globulin Ratio Arterial Blood Potassium Urine Color Urine Appearance Urine pH Ur Specific Connell Urine Protein Urine Glucose (UA) Urine Ketones Urine Blood Urine Nitrate Urine Bilirubin Urine Urobilinogen Ur Leukocyte Esterase Urine RBC Urine WBC Ur Epithelial Cells Hyaline Casts Ur Random Sodium Ur Random Potassium Salicylates < 1 L Urine Opiates Screen Urine Methadone Screen Acetaminophen < 10.0 L Ur Barbiturates Screen Ur Phencyclidine Scrn Ur Amphetamines Screen U Benzodiazepines Scrn U Oth Cocaine Metabols U Cannabinoids Screen Assessment & Plan - Assessment and Plan (Free Text) Assessment: 37 y/o F with PMH of AIDS (CD4 <20 03/11/18), Hep C known treated, EBV, CMV, HSV , CHF, COPD, Asthma, Hx of heroin abuse presents to ED with complaints of increased diffuse swelling, shortness of breath, difficulty breathing and abdominal "tightness" for the past 3 days. Plan: Transamnitis -Possibly due to PCP however despite treatment of PCP, elevation persists -Recommend Liver biopsy for further evaluation -PT/PTT/INR stable -Must keep PCP of liver in differential
--- NOTE | 2018-06-03 14:42 | CARD ---
APPROVED REPORT Date of service: 06/03/2018 EKG Measurement Heart [id number] <Conclusion> Normal sinus rhythm RSR' or QR pattern in V1 suggests right ventricular conduction delay Nonspecific T wave abnormality Abnormal ECG
[2018-06-03 16:09] LABS: TROPONIN I 0.22 ng/mL
--- NOTE | 2018-06-03 16:43 | PN ---
Copied To: Cara Umaña MD Attending MD: Cara Umaña MD. DATE: 06/03/2018 LOCATION: Room 271, bed 2. REASON FOR CONSULTATION: Swelling of legs and shortness of breath. HISTORY OF PRESENT ILLNESS: A 37-year-old female with known case of HIV, hepatitis C, COPD, CHF, cardiomyopathy, history of HSV, CMV, EB virus, admitted with since last 3 days having shortness of breath and swelling of legs. Denies chest pain, nausea, vomiting, hematemesis, melena. Patient's echo on 04/14/2018 showed LV ejection fraction of 35%. Normal LV size. Right ventricle dilated and RV systolic function mildly reduced. PAST MEDICAL HISTORY: Patient was recently in hospital with respiratory failure, was on respirator, then successfully extubated. As mentioned before, patient had history of HIV, EB virus, CMV, HSV, COPD, asthma, history of heroin abuse. She is also on methadone program. Also was found to have cardiomyopathy as mentioned above. She had surgery for abscess formation in the neck in the past. PERSONAL HISTORY: Former smoker and denies alcohol abuse. History of IV drug use. Patient on methadone program. ALLERGIES: ALLERGIC TO TMP/SMX, LEVOFLOXACIN, PENICILLIN, AZITHROMYCIN, FLEXERIL. MEDICATIONS AT HOME: Patient does not remember what she was taking, but she said lot of medicine she was not taking, she could not fill it up from the pharmacy and so she is a very poor, non-compliant patient. FAMILY HISTORY: Not significant. REVIEW OF SYSTEMS: All the systems reviewed. Positives mentioned in the history, others were negative. PHYSICAL EXAMINATION: VITAL SIGNS: Blood pressure 101/66, respirations 21, pulse 81, temperature 97.6. HEENT: Head is normocephalic. Eyes: Pupils normal. Conjunctivae slightly pale. NECK: JVP low. Carotids equal. THORAX: AP diameter normal. LUNGS: Few rales on the right lower zone. CARDIOVASCULAR: S1, S2. ABDOMEN: Soft. Bowel sounds normal. EXTREMITIES: Patient has 3 to 4+ edema bilateral legs. LABORATORY DATA: Showed WBC 8.6, hemoglobin 10.1, hematocrit 32.6, platelets 109. Sodium 138, potassium 4.2, BUN 46, creatinine 2.3, AST 1611, ALT 958, LDH 3002; troponin on admission 0.54, subsequently 0.26 and 0.23. Patient had history of troponin elevation. Patient's troponin on 04/13/2018 was 0.23 and 0.22. EKG showed regular sinus rhythm, nonspecific ST-T changes. Chest x-ray: Stable infiltrate, right lower base. DIAGNOSES: 1. Shortness of breath. 2. Swelling of legs. 3. Cardiomyopathy. Echocardiogram on 04/14/2018 showed normal size LV, but LV systolic function reduced with ejection fraction 35%, dilated right ventricular and right ventricular systolic function also mildly reduced. 4. Human immunodeficiency virus. 5. Chronic obstructive pulmonary disease. 6. History of hepatitis C, Cytomegalovirus, Brian-Coker virus. 7. Asthma. 8. History of heroin abuse, patient on methadone program. 9. Anemia. 10. Renal dysfunction. 11. Hepatic dysfunction. PLAN: Patient is getting Lasix 20 IV daily. We will give another 20 IV now and we will change Lasix to 40 IV daily. We will also add Coreg 3.125 b.i.d. We will hold off MYRNA inhibitor because of elevated BUN and creatinine. Patient is getting hand nebulizer therapy. Clindamycin 300 mg p.o. every 8 hourly. Patient's troponin is probably false due to elevation of BUN and creatinine. As mentioned before, the patient in the past also had elevated troponin. On 04/13/2018, the patient's troponin was 0.23 and 0.22. We will treat her with the present therapy and we will monitor and we will follow with you. Not putting on MYRNA inhibitor at this moment because of elevated BUN and creatinine. We will follow with you. Cara Umaña MD : 06/03/2018 11:50:14
--- NOTE | 2018-06-03 19:17 | CARD ---
APPROVED REPORT Date of service: 06/03/2018 EKG Measurement Heart [id number] <Conclusion> Normal sinus rhythm RSR' or QR pattern in V1 suggests right ventricular conduction delay Prolonged QT Abnormal ECG
[2018-06-03 20:19] LABS: CREATININE,RANDOM URINE 20 mg/dL
--- NOTE | 2018-06-03 21:02 | CARD ---
APPROVED REPORT Date of service: 06/02/2018 EKG Measurement Heart [id number] <Conclusion> Normal sinus rhythm RSR' or QR pattern in V1 suggests right ventricular conduction delay Prolonged QT Abnormal ECG
[2018-06-03] MEDS: Primaquine 26.3 mg Tab PO SCH ×2 (21:39→22:12)
[2018-06-03] MEDS ORDERED: Pantoprazole 40 mg EC Tab PO STA (22:06)
[2018-06-04] MEDS: Albuterol-Ipratrop 3 mg / 0.5 (3 ml) UD IH SCH ×4 (03:25→20:43)
[2018-06-04 07:29] LABS: BASO # 0.01 K/mm3 (0.0-2.0); BASO % 0.3 % (0.0-3.0); EOS # 0.2 (0.0-0.7); EOS % 4.8 % (1.5-5.0); GRAN # 2.27 (1.4-6.5); GRAN % 64.5 % (50.0-68.0); HEMOGLOBIN 8.9 g/dL (12.0-16.0); LYMPH # 0.8 (1.2-3.4); LYMPH % 23.3 % (22.0-35.0); MEAN CELL VOLUME 82.3 fl (80.0-105.0); MEAN CORPUSCULAR HEMOGLOBIN 25.9 pg (25.0-35.0); MEAN CORPUSCULAR HGB CONC 31.4 g/dl (31.0-37.0); MEAN PLATELET VOLUME 10.1 fl (7.0-11.0); MONO # 0.3 (0.1-0.6); MONO % 7.1 % (1.0-6.0); RBC 3.44 10^6/uL (3.5-6.1); RED CELL DISTRIBUTION WIDTH 17.8 % (11.5-14.5); WHITE BLOOD COUNT 3.5 10^3/ul (4.5-11.0)
--- NOTE | 2018-06-04 07:58 | CP.PCM.PN ---
<Hunter Medina - Last Filed: 06/04/18 10:35> Subjective - Date & Time of Evaluation Date of Evaluation: 06/04/18 Time of Evaluation: 07:57 - Subjective Subjective: Hunter Medina DO PGY1 Internal Medicine Bankruptcy Legal Assistant - Hospital Progress Note Patient seen and examined at bedside; Pt had some c/o gerd overnight; No other issues reported this AM; ROS otherwise negative. Objective - Vital Signs/Intake and Output Vital Signs (last 24 hours): Temp Pulse Resp BP Pulse Ox 98.9 F 90 18 120/74 95 06/04/18 06:00 06/04/18 06:00 06/04/18 06:00 06/04/18 06:00 06/04/18 06:00 Intake and Output: 06/04/18 06/04/18 06:59 18:59 Intake Total 1345 Output Total 2600 Balance -1255 - Medications Medications: Current Medications Albuterol/Ipratropium (Duoneb 3 Mg/0.5 Mg (3 Ml) Ud) 3 ml IH [id number] [facility] Last Admin: 06/04/18 07:22 Dose: 3 ml Carvedilol (Coreg) 3.125 mg PO BID [facility] Last Admin: 06/03/18 18:41 Dose: Not Given Clindamycin HCl (Cleocin) 600 mg PO 0600,1400,2200 [facility] PRN Reason: Protocol Last Admin: 06/04/18 05:35 Dose: 600 mg Furosemide (Lasix) 40 mg IV DAILY [facility] Methadone HCl (Methadone) 70 mg PO DAILY [facility] Pantoprazole Sodium (Protonix Ec Tab) 40 mg PO 0600 [facility] Primaquine Phosphate (Primaquine) 26.3 mg PO DAILY [facility] PRN Reason: Protocol Last Admin: 06/03/18 22:12 Dose: Not Given - Labs Labs: 06/04/18 07:00 06/03/18 02:55 PT 20.8 SECONDS (9.4-12.5) H 06/02/18 18:15 INR 1.80 06/02/18 18:15 APTT 26.7 Seconds (25.1-36.5) 06/02/18 18:15 Physical Exam - Constitutional Appears: Not Well, Non-toxic, No Acute Distress - Head Exam Head Exam: NORMAL INSPECTION, NORMOCEPHALIC - Eye Exam Eye Exam: EOMI, Normal appearance, Periorbital swelling Additional comments: No signs of retinitis - ENT Exam ENT Exam: Mucous Membranes Moist, Normal Exam Additional comments: No oral thrush noted, No pharyngitis - Neck Exam Neck exam: Positive for: Normal Inspection. Negative for: Meningismus - Respiratory Exam Respiratory Exam: Trace Rhonchi at bilateral bases - Cardiovascular Exam Cardiovascular Exam: REGULAR RHYTHM, +S1, +S2 - GI/Abdominal Exam GI & Abdominal Exam: Distended, Soft, tender. absent: Rebound - Extremities Exam Extremities exam: Positive for: joint swelling RLE>LLE , pedal edema. Negative for: calf tenderness bilaterally - Back Exam Back exam: absent: CVA tenderness (L), CVA tenderness (R) - Neurological Exam Neurological exam: Alert, CN II-XII Intact, Oriented x3 - Psychiatric Exam Psychiatric exam: Normal Mood, Withdrawn - Skin Skin Exam: Dry, Intact, Warm Assessment and Plan - Assessment and Plan (Free Text) Assessment: 37 y/o F with PMH of AIDS (CD4 <20 03/11/18), Hep C, PCP pneumonia, EBV, CMV, HSV , CHF, COPD, asthma, hx of heroin abuse admitted for multiorgan dysfunction, medication noncompliance, acute liver failure. Plan: Acute on chronic HFpEF Echo (04/14/18): EF 35%. 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 Likely secondary to shock liver vs HSV hepatitis Hypoalbuminemia; likely due to poor nutritional state Acetaminophen level low x2 NAC started in setting of hepatic failure x 3 doses will continue to monitor levels GI recs: Dr. 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 UA + 30 protein, trace blood, 1.0 urobilinogen Urine electrolytes: Na 109, K 12.8. F/u urine Cr Nephrology consult: Kalani Avoid nephrotoxins AIDS Last CD4 <20. Pt noncompliant with antiretrovirals Hx of Hep C, CMV, EBV, PCP pnemonia HCV RNA QUAL (05/23/18): treated with Harvoni, CMV IgG Ab >10 (05/20/18), EBV EA IgG 62.90 (05/20/18) Midline put in this AM for IV access On clindamycin 600mg q8 for RLL infiltrate, Primaquine 26.3 po for PCP tx RPR - non reactive Blood cultures negative x2 /24H ID Consult: Dr. Granado. recs for Clinda and liver biopsy f/u AFB for ? MAC infection Hx COPD Start duoneb q6h benjamin O2 NC prn SOB, maintain SpO2 >90% Hx of substance abuse Hx of methadone dependence UDS + Methadone continued on half normal dose @ 70 will monitor DVT ppx: SCD GI PPX: Protonix Patient seen, examined, and case discussed at length w/ attending physician Cara Galloway DO PGY1 Internal Medicine Bankruptcy Legal Assistant - Pager [phone] <Cara Bhatti - Last Filed: 06/04/18 13:39> Objective - Vital Signs/Intake and Output Vital Signs (last 24 hours): Temp Pulse Resp BP Pulse Ox 98.1 F 88 20 114/80 91 L 06/04/18 11:23 06/04/18 11:23 06/04/18 11:23 06/04/18 11:23 06/04/18 08:35 Intake and Output: 06/04/18 06/04/18 06:59 18:59 Intake Total 1345 Output Total 2600 Balance -1255 - Medications Medications: Current Medications Albuterol/Ipratropium (Duoneb 3 Mg/0.5 Mg (3 Ml) Ud) 3 ml IH [id number] [facility] Last Admin: 06/04/18 07:22 Dose: 3 ml Carvedilol (Coreg) 3.125 mg PO BID [facility] Last Admin: 06/04/18 09:33 Dose: 3.125 mg Clindamycin HCl (Cleocin) 600 mg PO 0600,1400,2200 [facility] PRN Reason: Protocol Last Admin: 06/04/18 05:35 Dose: 600 mg Furosemide (Lasix) 40 mg IV DAILY [facility] Last Admin: 06/04/18 09:31 Dose: 40 mg Methadone HCl (Methadone) 70 mg PO DAILY [facility] Last Admin: 06/04/18 09:32 Dose: 70 mg Pantoprazole Sodium (Protonix Ec Tab) 40 mg PO 0600 [facility] Primaquine Phosphate (Primaquine) 26.3 mg PO DAILY [facility] PRN Reason: Protocol Last Admin: 06/04/18 09:32 Dose: 26.3 mg Spironolactone (Aldactone) 25 mg PO BID [facility] Last Admin: 06/04/18 11:07 Dose: 25 mg - Labs Labs: 06/04/18 07:00 06/04/18 07:00 PT 20.8 SECONDS (9.4-12.5) H 06/02/18 18:15 INR 1.80 06/02/18 18:15 APTT 26.7 Seconds (25.1-36.5) 06/02/18 18:15 Attending/Attestation - Attestation I have personally seen and examined this patient.: Yes I have fully participated in the care of the patient.: Yes I have reviewed all pertinent clinical information, including history, physical exam and plan: Yes Notes (Text): 06/04/18 13:36 Medical record note made by the resident after discussion with my direction and input after the patient was personally seen and examined by me. I have reviewed the chart and agree that the record accurately reflects by personal performance of the history, physical exam, data review, and medical decision-making, in the course for the patient. I have also personally directed the plan of care. 37 yrs old femlae with PMH of end stage AIDS (CD4 <20 03/11/18), Hep C, CHF, COPD , Asthma, Hx of IV heroin abuse, noncomplience was recently admitted to the hospital about 2 weeks ago for respiratory failure, during hospital course patient was intubated and diagnosed with pneumonia, was treated for PCP Pneumonia, left AMA was admitted last night with increased diffuse swelling, shortness of breath for the past 3 days, found to have acute on chronic CHF exacerbation, acute renal failure and elevated LFT. Acute on chronic CHF, improving with IV lasix.Dyspnea is improved.Leg swelling is decreasing. Cardiology evaluation is appreciated. Acute renal failure likely due to CHF,creatinin is back to normal, we will continue monitoring. Elevated LFT, etiology is unclear, avoid hepatotoxic medication, hypotension , patient has been started on Acetylcystine.Abdominal USG showed hepato and splenomegaly.AST and ALT are unchanged since yesterday.May need live biopsy if LFT will not improve Prognosis is guarded.
[2018-06-04 08:10] LABS: ALB/GLOB RATIO 0.6 (1.1-1.8); ALBUMIN 2.1 g/dL (3.0-4.8); BLOOD UREA NITROGEN 25 mg/dL (7-21); CALCIUM 8.1 mg/dL (8.4-10.5); GFR AFRICAN-AMERICAN > 60; GFR NON-AFRICAN AMERICAN > 60
[2018-06-04 08:17] LABS: ALT/SGPT 1078 U/L (7-56)
[2018-06-04] MEDS ORDERED: Potassium Chloride 20 mEq ER Tab PO STA (08:29)
[2018-06-04 08:37] LABS: AST/SGOT 1637 U/L (14-36)
[2018-06-04] MEDS: Primaquine 26.3 mg Tab PO SCH (09:32)
[2018-06-04 11:24] LABS: COMPLEMENT C4 12.8 mg/dL (14.0-44.0)
--- NOTE | 2018-06-04 12:04 | CP.PCM.PN ---
Subjective - Date & Time of Evaluation Date of Evaluation: 06/04/18 Time of Evaluation: 11:40 - Subjective Subjective: Patient is resting comfortably in bed, not in distress, no fevers. Objective - Vital Signs/Intake and Output Vital Signs (last 24 hours): Temp Pulse Resp BP Pulse Ox 98.9 F 90 18 120/74 95 06/04/18 06:00 06/04/18 06:00 06/04/18 06:00 06/04/18 06:00 06/04/18 06:00 Intake and Output: 06/04/18 06/04/18 06:59 18:59 Intake Total 1345 Output Total 2600 Balance -1255 - Medications Medications: Current Medications Albuterol/Ipratropium (Duoneb 3 Mg/0.5 Mg (3 Ml) Ud) 3 ml IH [id number] [facility] Last Admin: 06/04/18 07:22 Dose: 3 ml Carvedilol (Coreg) 3.125 mg PO BID [facility] Last Admin: 06/03/18 18:41 Dose: Not Given Clindamycin HCl (Cleocin) 600 mg PO 0600,1400,2200 [facility] PRN Reason: Protocol Last Admin: 06/04/18 05:35 Dose: 600 mg Furosemide (Lasix) 40 mg IV DAILY [facility] Methadone HCl (Methadone) 70 mg PO DAILY [facility] Pantoprazole Sodium (Protonix Ec Tab) 40 mg PO 0600 [facility] Primaquine Phosphate (Primaquine) 26.3 mg PO DAILY [facility] PRN Reason: Protocol Last Admin: 06/03/18 22:12 Dose: Not Given - Labs Labs: 06/04/18 07:00 06/03/18 02:55 PT 20.8 SECONDS (9.4-12.5) H 06/02/18 18:15 INR 1.80 06/02/18 18:15 APTT 26.7 Seconds (25.1-36.5) 06/02/18 18:15 - Constitutional Appears: Cachectic, Chronically Ill - Head Exam Head Exam: NORMAL INSPECTION - Respiratory Exam Respiratory Exam: Decreased Breath Sounds - Cardiovascular Exam Cardiovascular Exam: +S1, +S2 - GI/Abdominal Exam GI & Abdominal Exam: Soft. absent: Tenderness Assessment and Plan - Assessment and Plan (Free Text) Plan: Assessment probable pneumocystis pneumonia, did not complete therapy from previous admission history of severe sepsis S/P ventilator-dependent respiratory failure, acute renal failure and acute hepatitis due to possible pneumocystis pneumonia on top of HCAP HIV/AIDS with last CD4 count <20, non-compliant with her meds COPD chronic back pain history of IVDA hepatitis C infection Plan continue Clindamycin and Primaquine as discussed with dr. Centeno, should get liver biopsy - should monitor and trend transaminases will follow up blood AFB overall prognosis is poor unless patient starts taking her HIV meds ,
--- NOTE | 2018-06-04 12:20 | CARD ---
APPROVED REPORT Date of service: 06/04/2018 EKG Measurement Heart [id number] <Conclusion> Normal sinus rhythm T wave abnormality, consider anterior ischemia Prolonged QT Abnormal ECG
--- NOTE | 2018-06-04 14:00 | CP.PCM.PN ---
Subjective - Date & Time of Evaluation Date of Evaluation: 06/04/18 Time of Evaluation: 08:30 - Subjective Subjective: PGY5 GI Follow-up Notes Pt seen and examined bedside Denies any abd pain + generalized chronic tolerating diet +BM ROS: 12 point ROS conducted, neg other than above Objective - Vital Signs/Intake and Output Vital Signs (last 24 hours): Temp Pulse Resp BP Pulse Ox 98.1 F 88 20 114/80 91 L 06/04/18 11:23 06/04/18 11:23 06/04/18 11:23 06/04/18 11:23 06/04/18 08:35 Intake and Output: 06/04/18 06/04/18 06:59 18:59 Intake Total 1345 Output Total 2600 Balance -1255 - Medications Medications: Current Medications Albuterol/Ipratropium (Duoneb 3 Mg/0.5 Mg (3 Ml) Ud) 3 ml IH [id number] [facility] Last Admin: 06/04/18 07:22 Dose: 3 ml Carvedilol (Coreg) 3.125 mg PO BID [facility] Last Admin: 06/04/18 09:33 Dose: 3.125 mg Clindamycin HCl (Cleocin) 600 mg PO 0600,1400,2200 [facility] PRN Reason: Protocol Last Admin: 06/04/18 05:35 Dose: 600 mg Furosemide (Lasix) 40 mg IV DAILY [facility] Last Admin: 06/04/18 09:31 Dose: 40 mg Methadone HCl (Methadone) 70 mg PO DAILY [facility] Last Admin: 06/04/18 09:32 Dose: 70 mg Pantoprazole Sodium (Protonix Ec Tab) 40 mg PO 0600 [facility] Primaquine Phosphate (Primaquine) 26.3 mg PO DAILY [facility] PRN Reason: Protocol Last Admin: 06/04/18 09:32 Dose: 26.3 mg Spironolactone (Aldactone) 25 mg PO BID [facility] Last Admin: 06/04/18 11:07 Dose: 25 mg - Labs Labs: 06/04/18 07:00 06/04/18 07:00 PT 20.8 SECONDS (9.4-12.5) H 06/02/18 18:15 INR 1.80 06/02/18 18:15 APTT 26.7 Seconds (25.1-36.5) 06/02/18 18:15 - Constitutional Appears: Well, No Acute Distress - Head Exam Head Exam: ATRAUMATIC, NORMOCEPHALIC - Eye Exam Eye Exam: Normal appearance Pupil Exam: NORMAL ACCOMODATION - ENT Exam ENT Exam: Mucous Membranes Moist, Normal Exam - Neck Exam Neck Exam: Normal Inspection - Respiratory Exam Respiratory Exam: Clear to Ausculation Bilateral, NORMAL BREATHING PATTERN. absent: Rhonchi, Wheezes, Respiratory Distress - GI/Abdominal Exam GI & Abdominal Exam: Distended, Soft, Normal Bowel Sounds. absent: Guarding, Rigid, Tenderness, Organomegaly, Rebound - Extremities Exam Extremities Exam: absent: Joint Swelling, Pedal Edema - Neurological Exam Neurological Exam: Alert, Awake, Oriented x3 - Psychiatric Exam Psychiatric exam: Normal Affect, Normal Mood - Skin Skin Exam: Dry, Intact, Normal Color, Warm Assessment and Plan - Assessment and Plan (Free Text) Assessment: Veronica Ruiz is a 37 y/o F with PMH of AIDS (CD4 <20 03/11/18), Hep C known treated, EBV, CMV, HSV, CHF, COPD, Asthma, Hx of heroin abuse presents to ED with complaints of increased diffuse swelling, shortness of breath, difficulty breathing and abdominal "tightness" for the past 3 days. Transaminitis, etiology likely 2/2 unknown, suspect PCP but there is no improvement despite tx, acute viral hep neg, doubt ischemic, autoimmune neg Heroine Use Plan: Transamnitis -Possibly due to PCP however despite treatment of PCP, elevation persists -Recommend Liver biopsy for further evaluation -PT/PTT/INR stable -abx as per ID Will D/W Dr. Centeno
--- NOTE | 2018-06-04 22:55 | CP.PCM.PN ---
Subjective - Date & Time of Evaluation Date of Evaluation: 06/04/18 Time of Evaluation: 11:00 - Subjective Subjective: Reports abdominal symptoms, not eating much; breathing somewhat improved; Objective - Vital Signs/Intake and Output Vital Signs (last 24 hours): Temp Pulse Resp BP Pulse Ox 98.4 F 80 18 112/77 95 06/04/18 18:00 06/04/18 22:00 06/04/18 18:00 06/04/18 18:00 06/04/18 18:00 Intake and Output: 06/04/18 06/05/18 18:59 06:59 Intake Total 780 Output Total 1000 Balance -220 - Medications Medications: Current Medications Albuterol/Ipratropium (Duoneb 3 Mg/0.5 Mg (3 Ml) Ud) 3 ml IH [id number] [facility] Last Admin: 06/04/18 20:43 Dose: 3 ml Carvedilol (Coreg) 3.125 mg PO BID [facility] Last Admin: 06/04/18 17:38 Dose: 3.125 mg Clindamycin HCl (Cleocin) 600 mg PO 0600,1400,2200 [facility] PRN Reason: Protocol Last Admin: 06/04/18 21:57 Dose: 600 mg Furosemide (Lasix) 40 mg IV DAILY [facility] Last Admin: 06/04/18 09:31 Dose: 40 mg Methadone HCl (Methadone) 70 mg PO DAILY [facility] Last Admin: 06/04/18 09:32 Dose: 70 mg Pantoprazole Sodium (Protonix Ec Tab) 40 mg PO 0600 [facility] Primaquine Phosphate (Primaquine) 26.3 mg PO DAILY [facility] PRN Reason: Protocol Last Admin: 06/04/18 09:32 Dose: 26.3 mg Spironolactone (Aldactone) 25 mg PO BID [facility] Last Admin: 06/04/18 17:38 Dose: 25 mg - Labs Labs: 06/04/18 07:00 06/04/18 07:00 PT 20.8 SECONDS (9.4-12.5) H 06/02/18 18:15 INR 1.80 06/02/18 18:15 APTT 26.7 Seconds (25.1-36.5) 06/02/18 18:15 - Constitutional Appears: Non-toxic, No Acute Distress - Eye Exam Eye Exam: Normal appearance - ENT Exam ENT Exam: Mucous Membranes Moist - Respiratory Exam Respiratory Exam: Rales. absent: Respiratory Distress - Cardiovascular Exam Cardiovascular Exam: RRR, +S1, +S2. absent: Gallop - GI/Abdominal Exam GI & Abdominal Exam: Soft. absent: Distended, Tenderness - Extremities Exam Additional comments: moderate b/l leg edema (improved); - Neurological Exam Neurological Exam: Alert, Awake - Psychiatric Exam Psychiatric exam: Depressed. absent: Agitated - Skin Skin Exam: Warm. absent: Cyanosis Assessment and Plan (1) Acute kidney injury Assessment & Plan: Cardiorenal etiology, improving with diuretics; goal of therapy is to optimize CHF; will add aldactone 25 mg bid to offset metabolic alkalosis; Status: Acute (2) Proteinuria Assessment & Plan: Mild on UA but concerning for underlying renal dysfunction in the setting of hep C and HIV; -obtaining complements, RF, cryoglobulin assay; -obtain random urine for protein/creatinine; -may benefit from MYRNA inhibitor/ARB clinical engineering manager; Status: Acute (3) Congestive heart failure Assessment & Plan: Acute severely decompensated systolic CHF; symptomatically improved; continue diuretics; f/u with cardiology for increasing B-nicolle; add MYRNA inhibitor/ARB; keep K ~4.0; Status: Acute (4) Sepsis Assessment & Plan: Renal function improved; no need for renal dose adjustment for antibiotics; Status: Acute
[2018-06-05] MEDS: Albuterol-Ipratrop 3 mg / 0.5 (3 ml) UD IH SCH ×4 (01:42→19:36)
[2018-06-05] MEDS: Pantoprazole 40 mg EC Tab PO SCH (05:27)
[2018-06-05 08:09] LABS: IRON 29 ug/dL (45-180)
[2018-06-05 08:12] LABS: ALB/GLOB RATIO 0.6 (1.1-1.8); ALBUMIN 2.2 g/dL (3.0-4.8); ALT/SGPT 983 U/L (7-56); BLOOD UREA NITROGEN 17 mg/dL (7-21); GFR AFRICAN-AMERICAN > 60; GFR NON-AFRICAN AMERICAN > 60
[2018-06-05 08:19] LABS: % IRON SATURATION 10 % (20-55); AST/SGOT 1322 U/L (14-36); TOTAL IRON BINDING CAPACITY 284 ug/dL (265-497)
--- NOTE | 2018-06-05 08:47 | CP.PCM.PN ---
<Hunter Medina - Last Filed: 06/05/18 10:58> Subjective - Date & Time of Evaluation Date of Evaluation: 06/05/18 Time of Evaluation: 08:44 - Subjective Subjective: Hunter Medina DO PGY1 Internal Medicine Dealer Sales Rep - Hospital Progress Note Pt. seen and examined at bedside this AM. No acute events overnight reported by nursing. Pt. complaining her methadone is too low; pt. notified dosing was altered due to EKG changes. Notified of morning labs resulted. 12 Point ROS otherwise negative. Objective - Vital Signs/Intake and Output Vital Signs (last 24 hours): Temp Pulse Resp BP Pulse Ox 98.3 F 78 22 110/85 97 06/05/18 06:00 06/05/18 06:00 06/05/18 06:00 06/05/18 06:00 06/05/18 06:00 Intake and Output: 06/05/18 06/05/18 06:59 18:59 Intake Total 480 Output Total 600 Balance -120 - Medications Medications: Current Medications Albuterol/Ipratropium (Duoneb 3 Mg/0.5 Mg (3 Ml) Ud) 3 ml IH [id number] [facility] Last Admin: 06/05/18 07:39 Dose: 3 ml Carvedilol (Coreg) 3.125 mg PO BID [facility] Last Admin: 06/04/18 17:38 Dose: 3.125 mg Clindamycin HCl (Cleocin) 600 mg PO 0600,1400,2200 [facility] PRN Reason: Protocol Last Admin: 06/05/18 05:27 Dose: 600 mg Furosemide (Lasix) 40 mg IV DAILY [facility] Last Admin: 06/04/18 09:31 Dose: 40 mg Methadone HCl (Methadone) 70 mg PO DAILY [facility] Last Admin: 06/04/18 09:32 Dose: 70 mg Pantoprazole Sodium (Protonix Ec Tab) 40 mg PO 0600 [facility] Last Admin: 06/05/18 05:27 Dose: 40 mg Primaquine Phosphate (Primaquine) 26.3 mg PO DAILY [facility] PRN Reason: Protocol Last Admin: 06/04/18 09:32 Dose: 26.3 mg Spironolactone (Aldactone) 25 mg PO BID [facility] Last Admin: 06/04/18 17:38 Dose: 25 mg - Labs Labs: 06/04/18 07:00 06/05/18 06:30 PT 20.8 SECONDS (9.4-12.5) H 06/02/18 18:15 INR 1.80 06/02/18 18:15 APTT 26.7 Seconds (25.1-36.5) 06/02/18 18:15 Physical Exam - Constitutional Appears: Not Well, Non-toxic, No Acute Distress - Head Exam Head Exam: NORMAL INSPECTION, NORMOCEPHALIC - Eye Exam Eye Exam: EOMI, Normal appearance, Periorbital swelling Additional comments: No signs of retinitis - ENT Exam ENT Exam: Mucous Membranes Moist, Normal Exam Additional comments: No oral thrush noted, No pharyngitis - Neck Exam Neck exam: Positive for: Normal Inspection. Negative for: Meningismus - Respiratory Exam Respiratory Exam: Trace Rhonchi at bilateral bases - Cardiovascular Exam Cardiovascular Exam: REGULAR RHYTHM, +S1, +S2 - GI/Abdominal Exam GI & Abdominal Exam: Distended, Soft, tender. absent: Rebound - Extremities Exam Extremities exam: Positive for: joint swelling RLE>LLE , pedal edema. Negative for: calf tenderness bilaterally - Back Exam Back exam: absent: CVA tenderness (L), CVA tenderness (R) - Neurological Exam Neurological exam: Alert, CN II-XII Intact, Oriented x3 - Psychiatric Exam Psychiatric exam: Normal Mood, Withdrawn - Skin Skin Exam: Dry, Intact, Warm Assessment and Plan - Assessment and Plan (Free Text) Assessment: 37 y/o F with PMH of AIDS (CD4 <20 03/11/18), Hep C, PCP pneumonia, EBV, CMV, HSV , CHF, COPD, asthma, hx of heroin abuse admitted for multiorgan dysfunction, medication noncompliance, acute liver failure. Plan: Acute on chronic HFpEF Echo (04/14/18): EF 35%. 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 Likely secondary to shock liver vs HSV hepatitis Hypoalbuminemia; likely due to poor nutritional state will continue to monitor levels Consider liver biopsy IR Consulted regarding possible biopsy. GI recs: Dr. 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 UA + 30 protein, trace blood, 1.0 urobilinogen Urine electrolytes: Na 109, K 12.8. F/u urine Cr Nephrology consult: Mughni Avoid nephrotoxins AIDS Last CD4 <20. Pt noncompliant with antiretrovirals Hx of Hep C, CMV, EBV, PCP pnemonia HCV RNA QUAL (05/23/18): treated with Harvoni, CMV IgG Ab >10 (05/20/18), EBV EA IgG 62.90 (05/20/18) Midline put in this AM for IV access On clindamycin 600mg q8 for RLL infiltrate, Primaquine 26.3 po for PCP tx RPR - non reactive Blood cultures negative x2 /24H ID Consult: Dr. Granado. recs for Clinda and liver biopsy f/u AFB for ? MAC infection Hx COPD Start duoneb q6h [facility] O2 NC prn SOB, maintain SpO2 >90% Hx of substance abuse Hx of methadone dependence UDS + Methadone Started Ativan PRN for agitation/anxiety Given prolonged QT; Will continued on half normal dose @ 70 EKG ordered to reassess QT will monitor DVT ppx: SCD GI PPX: Protonix Patient seen, examined, and case discussed at length w/ attending physician Cara Galloway DO PGY1 Internal Medicine Dealer Sales Rep - Pager [phone] <Cara Bhatti - Last Filed: 06/05/18 11:45> Objective - Vital Signs/Intake and Output Vital Signs (last 24 hours): Temp Pulse Resp BP Pulse Ox 98.3 F 95 H 22 111/79 97 06/05/18 06:00 06/05/18 09:43 06/05/18 06:00 06/05/18 09:44 06/05/18 06:00 Intake and Output: 06/05/18 06/05/18 06:59 18:59 Intake Total 480 Output Total 600 Balance -120 - Medications Medications: Current Medications Albuterol/Ipratropium (Duoneb 3 Mg/0.5 Mg (3 Ml) Ud) 3 ml IH [id number] [facility] Last Admin: 06/05/18 07:39 Dose: 3 ml Carvedilol (Coreg) 3.125 mg PO BID [facility] Last Admin: 06/05/18 09:43 Dose: 3.125 mg Clindamycin HCl (Cleocin) 600 mg PO 0600,1400,2200 [facility] PRN Reason: Protocol Last Admin: 06/05/18 05:27 Dose: 600 mg Furosemide (Lasix) 40 mg IV DAILY [facility] Last Admin: 06/05/18 09:44 Dose: 40 mg Lisinopril (Zestril) 5 mg PO DAILY [facility] Lorazepam (Ativan) 0.5 mg IVP Q6H PRN; Protocol PRN Reason: Anxiety Methadone HCl (Methadone) 70 mg PO DAILY [facility] Last Admin: 06/05/18 09:43 Dose: 70 mg Pantoprazole Sodium (Protonix Ec Tab) 40 mg PO 0600 [facility] Last Admin: 06/05/18 05:27 Dose: 40 mg Polyethylene Glycol (Miralax) 17 gm PO DAILY [facility] Last Admin: 06/05/18 09:45 Dose: 17 gm Primaquine Phosphate (Primaquine) 26.3 mg PO DAILY [facility] PRN Reason: Protocol Last Admin: 06/05/18 09:45 Dose: 26.3 mg Spironolactone (Aldactone) 25 mg PO BID [facility] Last Admin: 06/05/18 09:44 Dose: 25 mg - Labs Labs: 06/05/18 06:30 06/05/18 06:30 PT 20.8 SECONDS (9.4-12.5) H 06/02/18 18:15 INR 1.80 06/02/18 18:15 APTT 26.7 Seconds (25.1-36.5) 06/02/18 18:15 Attending/Attestation - Attestation I have personally seen and examined this patient.: Yes I have fully participated in the care of the patient.: Yes I have reviewed all pertinent clinical information, including history, physical exam and plan: Yes Notes (Text): 06/05/18 11:44 Medical record note made by the resident after discussion with my direction and input after the patient was personally seen and examined by me. I have reviewed the chart and agree that the record accurately reflects by personal performance of the history, physical exam, data review, and medical decision-making, in the course for the patient. I have also personally directed the plan of care. 37 yrs old female with PMH of end stage AIDS (CD4 <20 03/11/18), Hep C, CHF, COPD , Asthma, Hx of IV heroin abuse, noncompliance was recently admitted to the hospital about 2 weeks ago for respiratory failure, during hospital course patient was intubated and diagnosed with pneumonia, was treated for PCP Pneumonia, left AMA was admitted last night with increased diffuse swelling, shortness of breath for the past 3 days, found to have acute on chronic CHF exacerbation, acute renal failure and elevated LFT.Acute on chronic CHF, improving with IV Lasix. Dyspnea is improved. Leg swelling is decreasing.Creatinin is back to normal. Elevated LFT, etiology is unclear, avoid hepatotoxic medication, hypotension , Patient is SP Acetylcystine treatment. Abdominal USG showed hepato and splenomegaly.AST came down from 2235 to 1322, ALT 112o to 983.GI has recommended liver biopsy to PCP hepatitis.We will get IR consult on Wednesday. Prognosis is guarded. Management plan was discussed in detail with patient. Education was provided.
[2018-06-05 08:53] LABS: BASO # 0.02 K/mm3 (0.0-2.0); BASO % 0.5 % (0.0-3.0); EOS # 0.2 (0.0-0.7); EOS % 5.6 % (1.5-5.0); GRAN # 2.56 (1.4-6.5); GRAN % 65.3 % (50.0-68.0); HEMOGLOBIN 9.8 g/dL (12.0-16.0); LYMPH # 0.9 (1.2-3.4); LYMPH % 21.7 % (22.0-35.0); MEAN CELL VOLUME 83.5 fl (80.0-105.0); MEAN CORPUSCULAR HEMOGLOBIN 25.7 pg (25.0-35.0); MEAN CORPUSCULAR HGB CONC 30.7 g/dl (31.0-37.0); MONO # 0.3 (0.1-0.6); MONO % 6.9 % (1.0-6.0); PLATELET COUNT 102 10^3/uL (120.0-450.0); RBC 3.82 10^6/uL (3.5-6.1); RED CELL DISTRIBUTION WIDTH 17.7 % (11.5-14.5); WHITE BLOOD COUNT 3.9 10^3/ul (4.5-11.0)
[2018-06-05] MEDS: Primaquine 26.3 mg Tab PO SCH (09:45)
[2018-06-05] MEDS: POLYETHYLENE GLYCOL 3350 17 GM/Dose PACKET PO SCH (09:45)
--- NOTE | 2018-06-05 15:26 | CARD ---
APPROVED REPORT Date of service: 06/05/2018 EKG Measurement Heart [id number] [place] [id number] <Conclusion> Normal sinus rhythm RSR' or QR pattern in V1 suggests right ventricular conduction delay ST & T wave abnormality, consider anterior ischemia Prolonged QT Abnormal ECG
--- NOTE | 2018-06-05 16:09 | CP.PCM.PN ---
Subjective - Date & Time of Evaluation Date of Evaluation: 06/05/18 Time of Evaluation: 11:10 - Subjective Subjective: Resting comfortably in bed, breathing a little better, no fevers. Objective - Vital Signs/Intake and Output Vital Signs (last 24 hours): Temp Pulse Resp BP Pulse Ox 98.1 F 88 20 114/80 95 06/04/18 11:23 06/04/18 11:23 06/04/18 11:23 06/04/18 11:23 06/04/18 06:00 Intake and Output: 06/04/18 06/04/18 06:59 18:59 Intake Total 1345 Output Total 2600 Balance -1255 - Medications Medications: Current Medications Albuterol/Ipratropium (Duoneb 3 Mg/0.5 Mg (3 Ml) Ud) 3 ml IH [id number] [facility] Last Admin: 06/04/18 07:22 Dose: 3 ml Carvedilol (Coreg) 3.125 mg PO BID [facility] Last Admin: 06/04/18 09:33 Dose: 3.125 mg Clindamycin HCl (Cleocin) 600 mg PO 0600,1400,2200 [facility] PRN Reason: Protocol Last Admin: 06/04/18 05:35 Dose: 600 mg Furosemide (Lasix) 40 mg IV DAILY [facility] Last Admin: 06/04/18 09:31 Dose: 40 mg Methadone HCl (Methadone) 70 mg PO DAILY [facility] Last Admin: 06/04/18 09:32 Dose: 70 mg Pantoprazole Sodium (Protonix Ec Tab) 40 mg PO 0600 [facility] Primaquine Phosphate (Primaquine) 26.3 mg PO DAILY [facility] PRN Reason: Protocol Last Admin: 06/04/18 09:32 Dose: 26.3 mg Spironolactone (Aldactone) 25 mg PO BID [facility] Last Admin: 06/04/18 11:07 Dose: 25 mg - Labs Labs: 06/04/18 07:00 06/04/18 07:00 PT 20.8 SECONDS (9.4-12.5) H 06/02/18 18:15 INR 1.80 06/02/18 18:15 APTT 26.7 Seconds (25.1-36.5) 06/02/18 18:15 - Constitutional Appears: Chronically Ill - Head Exam Head Exam: NORMAL INSPECTION - ENT Exam ENT Exam: Mucous Membranes Moist - Neck Exam Neck Exam: absent: Meningismus - Respiratory Exam Respiratory Exam: Decreased Breath Sounds - Cardiovascular Exam Cardiovascular Exam: +S1, +S2 - GI/Abdominal Exam GI & Abdominal Exam: Soft. absent: Tenderness Assessment and Plan - Assessment and Plan (Free Text) Plan: Assessment probable pneumocystis pneumonia, did not complete therapy from previous admission history of severe sepsis S/P ventilator-dependent respiratory failure, acute renal failure and acute hepatitis due to possible pneumocystis pneumonia on top of HCAP HIV/AIDS with last CD4 count <20, non-compliant with her meds COPD chronic back pain history of IVDA hepatitis C infection Plan continue Clindamycin and Primaquine day [address] Centeno, should get liver biopsy - should monitor and trend transaminases will follow up blood AFB overall prognosis is poor unless patient starts taking her HIV meds ,
--- NOTE | 2018-06-05 19:14 | CP.PCM.PN ---
Subjective - Date & Time of Evaluation Date of Evaluation: 06/05/18 Time of Evaluation: 11:30 - Subjective Subjective: Decreased appetite; not vomiting; sob and leg swelling improved; Objective - Vital Signs/Intake and Output Vital Signs (last 24 hours): Temp Pulse Resp BP Pulse Ox 98 F 80 70 H 111/73 97 06/05/18 12:00 06/05/18 18:20 06/05/18 12:00 06/05/18 18:20 06/05/18 06:00 - Medications Medications: Current Medications Albuterol/Ipratropium (Duoneb 3 Mg/0.5 Mg (3 Ml) Ud) 3 ml IH [id number] [facility] Last Admin: 06/05/18 13:29 Dose: 3 ml Carvedilol (Coreg) 3.125 mg PO BID [facility] Last Admin: 06/05/18 18:20 Dose: 3.125 mg Clindamycin HCl (Cleocin) 600 mg PO 0600,1400,2200 [facility] PRN Reason: Protocol Last Admin: 06/05/18 14:12 Dose: 600 mg Furosemide (Lasix) 40 mg IV DAILY [facility] Last Admin: 06/05/18 09:44 Dose: 40 mg Lisinopril (Zestril) 5 mg PO DAILY [facility] Lorazepam (Ativan) 0.5 mg IVP Q6H PRN; Protocol PRN Reason: Anxiety Methadone HCl (Methadone) 70 mg PO DAILY [facility] Last Admin: 06/05/18 09:43 Dose: 70 mg Pantoprazole Sodium (Protonix Ec Tab) 40 mg PO 0600 [facility] Last Admin: 06/05/18 05:27 Dose: 40 mg Polyethylene Glycol (Miralax) 17 gm PO DAILY [facility] Last Admin: 06/05/18 09:45 Dose: 17 gm Primaquine Phosphate (Primaquine) 26.3 mg PO DAILY [facility] PRN Reason: Protocol Last Admin: 06/05/18 09:45 Dose: 26.3 mg Spironolactone (Aldactone) 25 mg PO BID [facility] Last Admin: 06/05/18 18:20 Dose: 25 mg - Labs Labs: 06/05/18 06:30 06/05/18 06:30 PT 20.8 SECONDS (9.4-12.5) H 06/02/18 18:15 INR 1.80 08/09/18 18:15 APTT 26.7 Seconds (25.1-36.5) 06/02/18 18:15 - Constitutional Appears: Non-toxic, No Acute Distress - Eye Exam Eye Exam: Normal appearance - ENT Exam ENT Exam: Mucous Membranes Moist - Respiratory Exam Respiratory Exam: absent: Respiratory Distress Additional comments: bilateral insp rales; - Cardiovascular Exam Cardiovascular Exam: RRR, +S1, +S2. absent: Gallop - GI/Abdominal Exam GI & Abdominal Exam: Distended, Soft. absent: Tenderness - Extremities Exam Additional comments: mild leg edema, improved; - Neurological Exam Neurological Exam: Alert, Awake - Psychiatric Exam Psychiatric exam: Depressed. absent: Agitated - Skin Skin Exam: Warm. absent: Cyanosis Assessment and Plan (1) Acute kidney injury Assessment & Plan: Cardiorenal etiology, improved with diuresis; metabolic alkalosis increasing; will decrease IV lasix to 20 mg daily; continue aldactone 25 mg bid; should continue to optimize CHF meds; Status: Acute (2) Congestive heart failure Assessment & Plan: Acute severely decompensated systolic CHF; much improved by exam/symptoms; agree with starting MYRNA inhibitor, should titrate dose upward as tolerated along with B-nicolle; Status: Acute (3) Proteinuria Assessment & Plan: Mild, awaiting random urine for protein/creatinine; low complements can be seen in liver dysfunction; if significant proteinuria present, will pursue further workup; Status: Acute (4) Sepsis Status: Acute (5) Electrolyte imbalance Assessment & Plan: See above; need to avoid metabolic alkalosis and hypokalemia; Status: Acute
[2018-06-05] MEDS ORDERED: Pantoprazole 40 mg EC Tab PO ONE (22:25)
[2018-06-06] MEDS: Albuterol-Ipratrop 3 mg / 0.5 (3 ml) UD IH SCH ×4 (01:41→19:29)
[2018-06-06] MEDS: Pantoprazole 40 mg EC Tab PO SCH (05:46)
[2018-06-06 06:32] LABS: BASO # 0.01 K/mm3 (0.0-2.0); BASO % 0.3 % (0.0-3.0); EOS # 0.2 (0.0-0.7); EOS % 6.4 % (1.5-5.0); GRAN # 2.21 (1.4-6.5); GRAN % 64.1 % (50.0-68.0); HEMOGLOBIN 9.7 g/dL (12.0-16.0); LYMPH # 0.8 (1.2-3.4); LYMPH % 21.7 % (22.0-35.0); MEAN CELL VOLUME 82.3 fl (80.0-105.0); MEAN CORPUSCULAR HEMOGLOBIN 25.2 pg (25.0-35.0); MEAN CORPUSCULAR HGB CONC 30.6 g/dl (31.0-37.0); MEAN PLATELET VOLUME 10.5 fl (7.0-11.0); MONO # 0.3 (0.1-0.6); MONO % 7.5 % (1.0-6.0); RBC 3.85 10^6/uL (3.5-6.1); RED CELL DISTRIBUTION WIDTH 17.3 % (11.5-14.5); WHITE BLOOD COUNT 3.5 10^3/ul (4.5-11.0)
[2018-06-06 07:11] LABS: ALB/GLOB RATIO 0.6 (1.1-1.8); ALBUMIN 2.3 g/dL (3.0-4.8); ALT/SGPT 721 U/L (7-56); AST/SGOT 661 U/L (14-36); BLOOD UREA NITROGEN 14 mg/dL (7-21); CALCIUM 7.8 mg/dL (8.4-10.5); GFR AFRICAN-AMERICAN > 60; GFR NON-AFRICAN AMERICAN > 60
--- NOTE | 2018-06-06 07:46 | CP.PCM.PN ---
Subjective - Date & Time of Evaluation Date of Evaluation: 06/06/18 Time of Evaluation: 06:30 - Subjective Subjective: Easily awaken, no distress Reason for consultation and follow up: Cardiac evaluation of shortness of breath , History of AIDS ,non-compliant with medications, COPD, smoker Seen and examined by me and Dr. Veliz Objective - Vital Signs/Intake and Output Vital Signs (last 24 hours): Temp Pulse Resp BP Pulse Ox 98.5 F 96 H 20 97/67 L 94 L 06/06/18 05:53 06/06/18 05:53 06/06/18 05:53 06/06/18 05:53 06/06/18 05:53 Intake and Output: 06/06/18 06/06/18 06:59 18:59 Intake Total 360 Output Total 900 Balance -540 - Medications Medications: Current Medications Albuterol/Ipratropium (Duoneb 3 Mg/0.5 Mg (3 Ml) Ud) 3 ml IH [id number] [facility] Last Admin: 06/06/18 01:41 Dose: 3 ml Carvedilol (Coreg) 3.125 mg PO BID [facility] Last Admin: 06/05/18 18:20 Dose: 3.125 mg Clindamycin HCl (Cleocin) 600 mg PO 0600,1400,2200 [facility] PRN Reason: Protocol Last Admin: 06/06/18 05:46 Dose: 600 mg Furosemide (Lasix) 20 mg IVP DAILY [facility] Lisinopril (Zestril) 5 mg PO DAILY [facility] Lorazepam (Ativan) 0.5 mg IVP Q6H PRN; Protocol PRN Reason: Anxiety Methadone HCl (Methadone) 70 mg PO DAILY [facility] Last Admin: 06/05/18 09:43 Dose: 70 mg Pantoprazole Sodium (Protonix Ec Tab) 40 mg PO 0600 [facility] Last Admin: 06/06/18 05:46 Dose: 40 mg Polyethylene Glycol (Miralax) 17 gm PO DAILY [facility] Last Admin: 06/05/18 09:45 Dose: 17 gm Primaquine Phosphate (Primaquine) 26.3 mg PO DAILY [facility] PRN Reason: Protocol Last Admin: 06/05/18 09:45 Dose: 26.3 mg Spironolactone (Aldactone) 25 mg PO BID [facility] Last Admin: 06/05/18 18:20 Dose: 25 mg - Labs Labs: 06/06/18 05:30 06/06/18 05:30 PT 20.8 SECONDS (9.4-12.5) H 06/02/18 18:15 INR 1.80 06/02/18 18:15 APTT 26.7 Seconds (25.1-36.5) 06/02/18 18:15 - Constitutional Appears: No Acute Distress - Head Exam Head Exam: NORMOCEPHALIC - Eye Exam Eye Exam: Normal appearance - ENT Exam ENT Exam: Mucous Membranes Moist - Respiratory Exam Respiratory Exam: Decreased Breath Sounds, NORMAL BREATHING PATTERN - Cardiovascular Exam Cardiovascular Exam: REGULAR RHYTHM, +S1, +S2 - GI/Abdominal Exam GI & Abdominal Exam: Soft, Normal Bowel Sounds - Neurological Exam Neurological Exam: Alert, Awake, Oriented x3 - Psychiatric Exam Psychiatric exam: Normal Affect - Skin Skin Exam: Dry, Warm Assessment and Plan - Assessment and Plan (Free Text) Assessment: A 37 year old female who came in to the ER due to shortness of breath. she was just [place] [facility] [place] History of AIDS,Hep C, CMV,Brian-Coker virus ,CHF,COPD,asthma, hx of heroin abuse, on Methadone,non compliant with medications. cardiomyopathy-LV systolic dysfunction EF 35%. Exacerbation of congestive heart failure. Plan: Symptoms improved Shortness on breath on exertion Stable heart rate and blood pressure Continue to diurese On Coreg 3.125 mg BID,Lasix 20 mg daily, Zestril 5 mg daily,Aldactone 25 mg daily Continue current treatment Continue current medications Will follow up Plan and treatment discussed with Dr. Veliz
--- NOTE | 2018-06-06 08:02 | CP.PCM.PN ---
Subjective - Date & Time of Evaluation Date of Evaluation: 06/06/18 Time of Evaluation: 08:02 - Subjective Subjective: PGY-2 Nephrology Progress Note- Dr. Uriarte Patient seen and examined at bedside. Per nursing no acute events occurred overnight. Patient denies any chest pain, shortness of breath, fevers, chills, nausea, vomiting, changes in vision, or any other complaints. Patient reports tolerating her diet without any nausea or vomiting. Objective - Vital Signs/Intake and Output Vital Signs (last 24 hours): Temp Pulse Resp BP Pulse Ox 98.5 F 96 H 20 97/67 L 94 L 06/06/18 05:53 06/06/18 05:53 06/06/18 05:53 06/06/18 05:53 06/06/18 05:53 Intake and Output: 06/06/18 06/06/18 06:59 18:59 Intake Total 360 Output Total 900 Balance -540 - Medications Medications: Current Medications Albuterol/Ipratropium (Duoneb 3 Mg/0.5 Mg (3 Ml) Ud) 3 ml IH [id number] [facility] Last Admin: 06/06/18 07:55 Dose: 3 ml Carvedilol (Coreg) 3.125 mg PO BID [facility] Last Admin: 06/05/18 18:20 Dose: 3.125 mg Clindamycin HCl (Cleocin) 600 mg PO 0600,1400,2200 [facility] PRN Reason: Protocol Last Admin: 06/06/18 05:46 Dose: 600 mg Furosemide (Lasix) 20 mg IVP DAILY [facility] Lisinopril (Zestril) 5 mg PO DAILY [facility] Lorazepam (Ativan) 0.5 mg IVP Q6H PRN; Protocol PRN Reason: Anxiety Methadone HCl (Methadone) 70 mg PO DAILY [facility] Last Admin: 06/05/18 09:43 Dose: 70 mg Pantoprazole Sodium (Protonix Ec Tab) 40 mg PO 0600 [facility] Last Admin: 06/06/18 05:46 Dose: 40 mg Polyethylene Glycol (Miralax) 17 gm PO DAILY [facility] Last Admin: 06/05/18 09:45 Dose: 17 gm Primaquine Phosphate (Primaquine) 26.3 mg PO DAILY [facility] PRN Reason: Protocol Last Admin: 06/05/18 09:45 Dose: 26.3 mg Spironolactone (Aldactone) 25 mg PO BID [facility] Last Admin: 06/05/18 18:20 Dose: 25 mg - Labs Labs: 06/06/18 05:30 06/06/18 05:30 PT 20.8 SECONDS (9.4-12.5) H 06/02/18 18:15 INR 1.80 06/02/18 18:15 APTT 26.7 Seconds (25.1-36.5) 06/02/18 18:15 - Head Exam Head Exam: ATRAUMATIC, NORMAL INSPECTION, NORMOCEPHALIC - Eye Exam Eye Exam: EOMI, Normal appearance, PERRL. absent: Periorbital tenderness Pupil Exam: NORMAL ACCOMODATION - ENT Exam ENT Exam: Mucous Membranes Moist, Normal Oropharynx - Respiratory Exam Respiratory Exam: Decreased Breath Sounds, Rhonchi - Cardiovascular Exam Cardiovascular Exam: REGULAR RHYTHM, +S1, +S2 - GI/Abdominal Exam GI & Abdominal Exam: Soft, Normal Bowel Sounds. absent: Hyperactive Bowel Sounds - Back Exam Back Exam: NORMAL INSPECTION. absent: CVA tenderness (R), paraspinal tenderness - Neurological Exam Neurological Exam: Alert, Awake, CN II-XII Intact, Oriented x3 - Psychiatric Exam Psychiatric exam: Normal Affect, Normal Mood - Skin Skin Exam: Dry, Intact Assessment and Plan - Assessment and Plan (Free Text) Plan: Assessment and Plan (1) Acute kidney injury Assessment & Plan: Cardiorenal etiology, improved with diuresis; metabolic alkalosis increasing; continue IV lasix to 20 mg daily; continue aldactone 25 mg bid; should continue to optimize CHF meds; Status: Acute (2) Congestive heart failure Assessment & Plan: Acute severely decompensated systolic CHF; much improved by exam/symptoms; agree with starting Lisinopril 5mg PO Daily, should titrate dose upward as tolerated along with B-nicolle; Optimize medication for CHF. Status: Acute (3) Proteinuria Assessment & Plan: Mild, awaiting random urine for protein/creatinine; low complements can be seen in liver dysfunction; if significant proteinuria present, will pursue further workup; Status: Acute (4) Sepsis Status: Acute (5) Electrolyte imbalance Assessment & Plan: Repleted Will continue to monitor with serial CMP's. need to avoid metabolic alkalosis and hypokalemia; Status: Acute
[2018-06-06] MEDS: POLYETHYLENE GLYCOL 3350 17 GM/Dose PACKET PO SCH (09:14)
[2018-06-06] MEDS: Primaquine 26.3 mg Tab PO SCH (09:14)
--- NOTE | 2018-06-06 11:48 | CP.PCM.PN ---
Subjective - Date & Time of Evaluation Date of Evaluation: 06/06/18 Time of Evaluation: 11:30 - Subjective Subjective: Patient is breathing better, no fevers, not in distress, afebrile. Objective - Vital Signs/Intake and Output Vital Signs (last 24 hours): Temp Pulse Resp BP Pulse Ox 98 F 85 70 H 99/69 L 97 06/05/18 12:00 06/05/18 12:00 06/05/18 12:00 06/05/18 12:00 06/05/18 06:00 Intake and Output: 06/05/18 06/05/18 06:59 18:59 Intake Total 480 Output Total 600 Balance -120 - Medications Medications: Current Medications Albuterol/Ipratropium (Duoneb 3 Mg/0.5 Mg (3 Ml) Ud) [id number] [facility] Last Admin: 06/05/18 13:29 Dose: 3 ml Carvedilol (Coreg) 3.[address] [facility] Last Admin: 06/05/18 09:43 Dose: 3.125 mg Clindamycin HCl (Cleocin) 600 mg PO 0600,1400,2200 [facility] PRN Reason: Protocol Last Admin: 06/05/18 14:12 Dose: 600 mg Furosemide (Lasix) [address] [facility] Last Admin: 06/05/18 09:44 Dose: 40 mg Lisinopril (Zestril) [address] [facility] Lorazepam (Ativan) 0.5 mg IVP Q6H PRN; Protocol PRN Reason: Anxiety Methadone HCl (Methadone) [address] [facility] Last Admin: 06/05/18 09:43 Dose: 70 mg Pantoprazole Sodium (Protonix Ec Tab) 40 mg PO 0600 [facility] Last Admin: 06/05/18 05:27 Dose: 40 mg Polyethylene Glycol (Miralax) [address] [facility] Last Admin: 06/05/18 09:45 Dose: 17 gm Primaquine Phosphate (Primaquine) 26.3 mg PO DAILY [facility] PRN Reason: Protocol Last Admin: 06/05/18 09:45 Dose: 26.3 mg Spironolactone (Aldactone) [address] [facility] Last Admin: 06/05/18 09:44 Dose: 25 mg - Labs Labs: 06/05/18 06:30 06/05/18 06:30 PT 20.8 SECONDS (9.4-12.5) H 06/02/18 18:15 INR 1.80 06/02/18 18:15 APTT 26.7 Seconds (25.1-36.5) 06/02/18 18:15 - Constitutional Appears: Chronically Ill - Head Exam Head Exam: NORMAL INSPECTION - ENT Exam ENT Exam: Mucous Membranes Moist - Neck Exam Neck Exam: absent: Meningismus - Respiratory Exam Respiratory Exam: Decreased Breath Sounds - Cardiovascular Exam Cardiovascular Exam: +S1, +S2 - GI/Abdominal Exam GI & Abdominal Exam: Soft. absent: Tenderness Assessment and Plan - Assessment and Plan (Free Text) Plan: Assessment probable pneumocystis pneumonia, did not complete therapy from previous admission history of severe sepsis S/P ventilator-dependent respiratory failure, acute renal failure and acute hepatitis due to possible pneumocystis pneumonia on top of HCAP HIV/AIDS with last CD4 count <20, non-compliant with her meds COPD chronic back pain history of IVDA hepatitis C infection Plan continue Clindamycin and Primaquine day [address] Centeno, should get liver biopsy - should monitor and trend transaminases (slowly trending down) will follow up blood AFB overall prognosis is poor unless patient starts taking her HIV meds ,
--- NOTE | 2018-06-06 12:00 | CP.PCM.PN ---
Subjective - Date & Time of Evaluation Date of Evaluation: 06/06/18 Time of Evaluation: 09:35 - Subjective Subjective: S&E at bedside, chart reviewed, no acute overnight events reported. Occasional abdominal discomfort, no relation to oral intake, no BM since admission. No N/ V or overt GI bleeding reported. Denies SOB or chest pain. Eating but not much appetite. Objective - Vital Signs/Intake and Output Vital Signs (last 24 hours): Temp Pulse Resp BP Pulse Ox 98.5 F 76 20 97/72 L 94 L 06/06/18 05:53 06/06/18 10:00 06/06/18 05:53 06/06/18 09:17 06/06/18 05:53 Intake and Output: 06/06/18 06/06/18 06:59 18:59 Intake Total 360 Output Total 900 Balance -540 - Medications Medications: Current Medications Albuterol/Ipratropium (Duoneb 3 Mg/0.5 Mg (3 Ml) Ud) [id number] [facility] Last Admin: 06/06/18 07:55 Dose: 3 ml Carvedilol (Coreg) 3.[address] [facility] Last Admin: 06/06/18 09:17 Dose: 3.125 mg Clindamycin HCl (Cleocin) 600 mg PO 0600,1400,2200 [facility] PRN Reason: Protocol Last Admin: 06/06/18 05:46 Dose: 600 mg Furosemide (Lasix) [address] [facility] Last Admin: 06/06/18 09:17 Dose: 20 mg Lisinopril (Zestril) [address] [facility] Last Admin: 06/06/18 09:14 Dose: 5 mg Lorazepam (Ativan) 0.5 mg IVP Q6H PRN; Protocol PRN Reason: Anxiety Methadone HCl (Methadone) [address] [facility] Last Admin: 06/05/18 09:43 Dose: 70 mg Pantoprazole Sodium (Protonix Ec Tab) [address] [facility] Last Admin: 06/06/18 05:46 Dose: 40 mg Polyethylene Glycol (Miralax) [address] [facility] Last Admin: 06/06/18 09:14 Dose: 17 gm Primaquine Phosphate (Primaquine) 26.[address] [facility] PRN Reason: Protocol Last Admin: 06/06/18 09:14 Dose: 26.3 mg Spironolactone (Aldactone) 25 mg PO BID [facility] Last Admin: 06/06/18 10:38 Dose: 25 mg - Labs Labs: 06/06/18 05:30 06/06/18 05:30 PT 20.8 SECONDS (9.4-12.5) H 06/02/18 18:15 INR 1.80 06/02/18 18:15 APTT 26.7 Seconds (25.1-36.5) 06/02/18 18:15 - Constitutional Appears: No Acute Distress - Head Exam Head Exam: NORMOCEPHALIC - Eye Exam Eye Exam: Normal appearance. absent: Scleral icterus - ENT Exam ENT Exam: Mucous Membranes Moist - Neck Exam Neck Exam: Normal Inspection - Respiratory Exam Respiratory Exam: NORMAL BREATHING PATTERN. absent: Respiratory Distress - Cardiovascular Exam Cardiovascular Exam: +S1, +S2 - GI/Abdominal Exam GI & Abdominal Exam: Soft, Normal Bowel Sounds. absent: Guarding, Tenderness, Organomegaly, Rebound - Extremities Exam Extremities Exam: absent: Calf Tenderness, Pedal Edema - Neurological Exam Neurological Exam: Alert, Awake, Oriented x3 - Skin Skin Exam: Dry, Warm Assessment and Plan - Assessment and Plan (Free Text) Assessment: Assessment: Transaminitis, etiology likely 2/2 unknown, suspect PCP, consider as well passive congestion, acute viral hep neg, doubt ischemic, autoimmune neg Heroine Use AIDS H/O Hepatitis C, treated in the past COPD/Asthma Constipation PLAN: continue to trend LFT, show improvment today consider liver Biopsy if elevation persits, but does show improvement -PT/PTT/INR stable -abx as per ID continue PPI on Methadone continue Miralax, daily will give extra dose today for no recent BM Discussed w/ Dr. Joseph covering Dr. Centeno.
--- NOTE | 2018-06-06 13:13 | CARD ---
APPROVED REPORT Date of service: 06/06/2018 EKG Measurement Heart [id number] <Conclusion> Normal sinus rhythm RSR' or QR pattern in V1 suggests right ventricular conduction delay ST & T wave abnormality, consider anterior ischemia Prolonged QT Abnormal ECG
[2018-06-06] MEDS ORDERED: POLYETHYLENE GLYCOL 3350 17 GM/Dose PACKET PO ONE (18:00)
--- NOTE | 2018-06-06 19:14 | CP.PCM.PN ---
<Moises Lam - Last Filed: 06/07/18 00:04> Subjective - Date & Time of Evaluation Date of Evaluation: 06/06/18 Time of Evaluation: 19:14 - Subjective Subjective: Moises Lam D.O PGY-1, Internal Medicine progress note for Dr. Cortés Patient was examined at bedside, no acute overnight events. Patient offers no new complaints at this time. Denies fevers, chills, chest pain, shortness of breath, abdominal pain, N/V/D. Objective - Vital Signs/Intake and Output Vital Signs (last 24 hours): Temp Pulse Resp BP Pulse Ox 98.8 F 76 18 102/66 94 L 06/06/18 12:00 06/06/18 14:00 06/06/18 12:00 06/06/18 12:00 06/06/18 05:53 - Medications Medications: Current Medications Albuterol/Ipratropium (Duoneb 3 Mg/0.5 Mg (3 Ml) Ud) 3 ml IH [id number] [facility] Last Admin: 06/06/18 14:32 Dose: 3 ml Carvedilol (Coreg) 3.125 mg PO BID [facility] Last Admin: 06/06/18 18:15 Dose: 3.125 mg Clindamycin HCl (Cleocin) 600 mg PO 0600,1400,2200 [facility] PRN Reason: Protocol Last Admin: 06/06/18 13:55 Dose: 600 mg Furosemide (Lasix) 20 mg IVP DAILY [facility] Last Admin: 06/06/18 09:17 Dose: 20 mg Lisinopril (Zestril) 5 mg PO DAILY [facility] Last Admin: 06/06/18 09:14 Dose: 5 mg Lorazepam (Ativan) 0.5 mg IVP Q6H PRN; Protocol PRN Reason: Anxiety Methadone HCl (Methadone) 70 mg PO DAILY [facility] Last Admin: 06/05/18 09:43 Dose: 70 mg Pantoprazole Sodium (Protonix Ec Tab) 40 mg PO 0600 [facility] Last Admin: 06/06/18 05:46 Dose: 40 mg Polyethylene Glycol (Miralax) 17 gm PO DAILY [facility] Last Admin: 06/06/18 09:14 Dose: 17 gm Primaquine Phosphate (Primaquine) 26.3 mg PO DAILY [facility] PRN Reason: Protocol Last Admin: 06/06/18 09:14 Dose: 26.3 mg Spironolactone (Aldactone) 25 mg PO BID [facility] Last Admin: 06/06/18 18:15 Dose: 25 mg - Labs Labs: 06/06/18 05:30 06/06/18 05:30 PT 20.8 SECONDS (9.4-12.5) H 06/02/18 18:15 INR 1.80 06/02/18 18:15 APTT 26.7 Seconds (25.1-36.5) 06/02/18 18:15 - Constitutional Appears: No Acute Distress - Head Exam Head Exam: ATRAUMATIC, NORMAL INSPECTION - Eye Exam Eye Exam: Normal appearance - ENT Exam ENT Exam: Mucous Membranes Moist - Respiratory Exam Respiratory Exam: Decreased Breath Sounds, Rhonchi - Cardiovascular Exam Cardiovascular Exam: REGULAR RHYTHM, +S1, +S2. absent: Gallop, Rubs, Murmur - GI/Abdominal Exam GI & Abdominal Exam: Soft, Normal Bowel Sounds. absent: Tenderness - Extremities Exam Extremities Exam: absent: Calf Tenderness, Pedal Edema - Neurological Exam Neurological Exam: Alert, Awake, Oriented x3 - Psychiatric Exam Psychiatric exam: Normal Affect, Normal Mood - Skin Skin Exam: Dry, Intact, Warm Assessment and Plan - Assessment and Plan (Free Text) Assessment: Ms. Ruiz is a 37 y.o female with PMH of AIDS (CD4 <20 03/11/18), hepatitis C , PCP pneumonia, EBV, CMV, HSV, CHF, COPD, asthma, history of heroin abuse admitted for multi-organ dysfunction, medication noncompliance, and acute liver failure. 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 Umaña Acute Hepatic Failure - Most likely secondary to shock liver vs HSV hepatitis - LFT's downtrending, will continue to monitor - Hypoalbuminemia; likely due to poor nutritional state - IR consulted for a liver biopsy History of AIDS - Last CD4 <20 (03/11/2018). Pt noncompliant with antiretrovirals - Hx of Hep C, CMV, EBV, PCP pneumonia - HCV: treated with Harvoni, CMV IgG Ab >10 (05/20/18), EBV EA IgG 62.90 (05/20/18 ) - Midline placed on 06/05 - C/w Clindamycin 600mg PO Q8 and Primaquine 26.3mg PO for PCP treatment- on day #4 - RPR: non reactive - Blood cultures: negative x2 after 4 days - ID Consulted, Dr. Granado - F/u AFB for MAC infection Troponin Leak 2/2 demand ischemia vs HIV cardiomyopathy - No cardiac complaints, elevated troponins less likely due to ischemia - Troponin 0.54, 0.26, 0.23- downtrending - C/w Coreg 3.125mg PO BID History of COPD - C/w Duoneb Q6H [facility] - O2 NC PRN for SOB, maintain SpO2 >90% History of substance abuse - On Methadone 140mg- dose held - C/w with 70mg of Methadone, given prolonged QTc - UDS: positive for Methadone - C/w Ativan 0.5mg IVP Q6 PRN for anxiety BERNICE, resolved - Nephrology consulted, Dr. Uriarte - Will continue to monitor - Avoid nephrotoxins DVT ppx: SCD GI PPX: Protonix Patient case reviewed with and plan approved by attending physician, Dr. Cortés <Yoel Cortés - Last Filed: 06/07/18 07:48> Objective - Vital Signs/Intake and Output Vital Signs (last 24 hours): Temp Pulse Resp BP Pulse Ox 98.2 F 76 18 167/73 H 94 L 06/06/18 21:50 06/06/18 21:50 06/06/18 21:50 06/06/18 21:50 06/06/18 21:50 Intake and Output: 06/07/18 06/07/18 06:59 18:59 Intake Total 420 Balance 420 - Medications Medications: Current Medications Albuterol/Ipratropium (Duoneb 3 Mg/0.5 Mg (3 Ml) Ud) 3 ml IH [id number] [facility] Last Admin: 06/07/18 07:24 Dose: 3 ml Carvedilol (Coreg) 3.125 mg PO BID [facility] Last Admin: 06/06/18 18:15 Dose: 3.125 mg Clindamycin HCl (Cleocin) 600 mg PO 0600,1400,2200 [facility] PRN Reason: Protocol Last Admin: 06/07/18 05:53 Dose: 600 mg Furosemide (Lasix) 20 mg IVP DAILY [facility] Last Admin: 06/06/18 09:17 Dose: 20 mg Lisinopril (Zestril) 5 mg PO DAILY [facility] Last Admin: 06/06/18 09:14 Dose: 5 mg Lorazepam (Ativan) 0.5 mg IVP Q6H PRN; Protocol PRN Reason: Anxiety Methadone HCl (Methadone) 70 mg PO DAILY [facility] Last Admin: 06/05/18 09:43 Dose: 70 mg Pantoprazole Sodium (Protonix Ec Tab) 40 mg PO 0600 [facility] Last Admin: 06/07/18 05:53 Dose: 40 mg Polyethylene Glycol (Miralax) 17 gm PO DAILY [facility] Last Admin: 06/06/18 09:14 Dose: 17 gm Primaquine Phosphate (Primaquine) 26.3 mg PO DAILY [facility] PRN Reason: Protocol Last Admin: 06/06/18 09:14 Dose: 26.3 mg Spironolactone (Aldactone) 25 mg PO BID [facility] Last Admin: 06/06/18 18:15 Dose: 25 mg - Labs Labs: 06/06/18 05:30 06/06/18 05:30 PT 20.8 SECONDS (9.4-12.5) H 06/02/18 18:15 INR 1.80 06/02/18 18:15 APTT 26.7 Seconds (25.1-36.5) 06/02/18 18:15 Attending/Attestation - Attestation I have personally seen and examined this patient.: Yes I have fully participated in the care of the patient.: Yes I have reviewed all pertinent clinical information, including history, physical exam and plan: Yes Notes (Text): 06/06/18 38 year old female with past medical history of HIV/AIDS, hepatitis C, PCP pneumonia, CHF, COPD, noncompliance and substance (heroin) abuse) who was recently admitted for PCP pneumonia but left AMA presented with acute on chronic CHF exacerbation, acute renal failure and transaminitis. Her CHF has improved. She is being followed by cardiology. She is currently on lasix, aldactone, coreg and lisinopril. Transaminitis is slowly improving. She is s/p acetylcystine treatment. Abdominal ultrasound showed hepatosplenomegaly. IR evaluation was requested for possible liver biopsy. GI is following. Her BERNICE also has resolved. Nephrology is following. She was counselled on risks of continued substance abuse. Counselled on medication compliance. Overall prognosis is guarded. Yoel Cortés MD Hospitalist.
[2018-06-06] MEDS ORDERED: Pantoprazole 40 mg EC Tab PO ONE (22:07)
[2018-06-07] MEDS: Albuterol-Ipratrop 3 mg / 0.5 (3 ml) UD IH SCH ×4 (02:25→20:03)
[2018-06-07] MEDS: Pantoprazole 40 mg EC Tab PO SCH (05:53)
--- NOTE | 2018-06-07 07:16 | CP.PCM.PN ---
Subjective - Date & Time of Evaluation Date of Evaluation: 06/07/18 Time of Evaluation: 06:25 - Subjective Subjective: awake,alert, no distress,feels better Reason for consultation and follow up: Cardiac evaluation of shortness of breath , History of AIDS ,non-compliant with medications, COPD, smoker Seen and examined by me and Dr. Veliz Objective - Vital Signs/Intake and Output Vital Signs (last 24 hours): Temp Pulse Resp BP Pulse Ox 98.2 F 76 18 167/73 H 94 L 06/06/18 21:50 06/06/18 21:50 06/06/18 21:50 06/06/18 21:50 06/06/18 21:50 Intake and Output: 06/07/18 06/07/18 06:59 18:59 Intake Total 420 Balance 420 - Medications Medications: Current Medications Albuterol/Ipratropium (Duoneb 3 Mg/0.5 Mg (3 Ml) Ud) 3 ml IH [id number] [facility] Last Admin: 06/07/18 02:25 Dose: Not Given Carvedilol (Coreg) 3.125 mg PO BID [facility] Last Admin: 06/06/18 18:15 Dose: 3.125 mg Clindamycin HCl (Cleocin) 600 mg PO 0600,1400,2200 [facility] PRN Reason: Protocol Last Admin: 06/07/18 05:53 Dose: 600 mg Furosemide (Lasix) 20 mg IVP DAILY [facility] Last Admin: 06/06/18 09:17 Dose: 20 mg Lisinopril (Zestril) 5 mg PO DAILY [facility] Last Admin: 06/06/18 09:14 Dose: 5 mg Lorazepam (Ativan) 0.5 mg IVP Q6H PRN; Protocol PRN Reason: Anxiety Methadone HCl (Methadone) 70 mg PO DAILY [facility] Last Admin: 06/05/18 09:43 Dose: 70 mg Pantoprazole Sodium (Protonix Ec Tab) 40 mg PO 0600 [facility] Last Admin: 06/07/18 05:53 Dose: 40 mg Polyethylene Glycol (Miralax) 17 gm PO DAILY [facility] Last Admin: 06/06/18 09:14 Dose: 17 gm Primaquine Phosphate (Primaquine) 26.3 mg PO DAILY [facility] PRN Reason: Protocol Last Admin: 06/06/18 09:14 Dose: 26.3 mg Spironolactone (Aldactone) 25 mg PO BID [facility] Last Admin: 06/06/18 18:15 Dose: 25 mg - Labs Labs: 06/06/18 05:30 06/06/18 05:30 PT 20.8 SECONDS (9.4-12.5) H 06/02/18 18:15 INR 1.80 06/02/18 18:15 APTT 26.7 Seconds (25.1-36.5) 06/02/18 18:15 - Constitutional Appears: No Acute Distress - Eye Exam Eye Exam: Normal appearance - Respiratory Exam Respiratory Exam: Decreased Breath Sounds, NORMAL BREATHING PATTERN - Cardiovascular Exam Cardiovascular Exam: +S1, +S2 - GI/Abdominal Exam GI & Abdominal Exam: Soft, Normal Bowel Sounds - Neurological Exam Neurological Exam: Alert, Awake, Oriented x3 - Psychiatric Exam Psychiatric exam: Normal Affect - Skin Skin Exam: Intact, Warm Assessment and Plan - Assessment and Plan (Free Text) Assessment: A 37 year old female who came in to the ER due to shortness of breath. she was just recently discharged from [facility]. History of AIDS,Hep C, CMV,Brian-Coker virus ,CHF,COPD,asthma, hx of heroin abuse, on Methadone,non compliant with medications. cardiomyopathy-LV systolic dysfunction EF 35%. Exacerbation of congestive heart failure. Plan: Wanted to go home Symptoms improved,denies shortness of breath Stable cardiac status Stable heart rate and blood pressure On Coreg 3.125 mg BID,Lasix 20 mg daily, Zestril 5 mg daily,Aldactone 25 mg daily Continue current treatment Continue current medications ID on consult Will follow up Plan and treatment discussed with Dr. Veliz
[2018-06-07 07:41] LABS: ALB/GLOB RATIO 0.6 (1.1-1.8); ALBUMIN 2.5 g/dL (3.0-4.8); ALT/SGPT 535 U/L (7-56); AST/SGOT 280 U/L (14-36); BLOOD UREA NITROGEN 12 mg/dL (7-21); CALCIUM 8.1 mg/dL (8.4-10.5); GFR AFRICAN-AMERICAN > 60; GFR NON-AFRICAN AMERICAN > 60
[2018-06-07 07:50] LABS: BASO # 0.02 K/mm3 (0.0-2.0); BASO % 0.6 % (0.0-3.0); EOS # 0.1 (0.0-0.7); EOS % 4.1 % (1.5-5.0); GRAN # 1.92 (1.4-6.5); HEMOGLOBIN 9.8 g/dL (12.0-16.0); LYMPH # 0.8 (1.2-3.4); LYMPH % 25.4 % (22.0-35.0); MEAN CELL VOLUME 81.3 fl (80.0-105.0); MEAN CORPUSCULAR HEMOGLOBIN 25.5 pg (25.0-35.0); MEAN CORPUSCULAR HGB CONC 31.3 g/dl (31.0-37.0); MEAN PLATELET VOLUME 10.1 fl (7.0-11.0); MONO # 0.3 (0.1-0.6); MONO % 8.9 % (1.0-6.0); RBC 3.85 10^6/uL (3.5-6.1); RED CELL DISTRIBUTION WIDTH 16.8 % (11.5-14.5); WHITE BLOOD COUNT 3.2 10^3/ul (4.5-11.0)
--- NOTE | 2018-06-07 08:27 | PN ---
Copied To: Isaias Joseph MD Attending MD: Isaias Joseph MD ADDENDUM DATE: 06/06/2018 This is an addendum to a progress note performed by Marquita Jalloh APN. This visit is for Dr. Centeno. I agree with Marquita Jalloh' assessment and plan.. The patient is being seen for elevated liver enzymes. The patient was admitted with evidence of heart failure with edema of the lower extremities. Her BNP on admission to the hospital was 13,200 with an AST of 2235 and an ALT of 1120. This morning, her liver enzymes are down to AST 661 and ALT 721 with a normal alkaline phosphatase. Again, her clinical picture is consistent with elevated transaminases secondary to passive congestion of the liver. Plans are for continued diuresis with Lasix 20 mg once a day and Aldactone 25 mg twice a day. Isaias Joseph MD
--- NOTE | 2018-06-07 09:14 | CARD ---
APPROVED REPORT Date of service: 06/07/2018 EKG Measurement Heart [id number] [id number] <Conclusion> Normal sinus rhythm RSR' or QR pattern in V1 suggests right ventricular conduction delay ST & T wave abnormality, consider anterior ischemia Prolonged QT Abnormal ECG
[2018-06-07] MEDS: Primaquine 26.3 mg Tab PO SCH (09:15)
[2018-06-07] MEDS: POLYETHYLENE GLYCOL 3350 17 GM/Dose PACKET PO SCH ×2 (09:16→17:04)
--- NOTE | 2018-06-07 11:05 | CP.PCM.PN ---
<Jared Cam - Last Filed: 06/07/18 12:31> Subjective - Date & Time of Evaluation Date of Evaluation: 06/07/18 Time of Evaluation: 11:05 - Subjective Subjective: PGY-2 Nephrology Progress Note- Dr. Uriarte Patient seen and examined at bedside. Per nursing no acute events occurred overnight. Patient denies any chest pain, shortness of breath, fevers, chills, nausea, vomiting, changes in vision, or any other complaints. Patient reports tolerating her diet without any nausea or vomiting. Objective - Vital Signs/Intake and Output Vital Signs (last 24 hours): Temp Pulse Resp BP Pulse Ox 98.5 F 70 18 110/76 95 06/07/18 06:00 06/07/18 09:16 06/07/18 06:00 06/07/18 09:16 06/07/18 06:00 Intake and Output: 06/07/18 06/07/18 06:59 18:59 Intake Total 420 Balance 420 - Medications Medications: Current Medications Albuterol/Ipratropium (Duoneb 3 Mg/0.5 Mg (3 Ml) Ud) 3 ml IH [id number] [facility] Last Admin: 06/07/18 07:24 Dose: 3 ml Carvedilol (Coreg) 6.25 mg PO BID [facility] Clindamycin HCl (Cleocin) 600 mg PO 0600,1400,2200 [facility] PRN Reason: Protocol Last Admin: 06/07/18 05:53 Dose: 600 mg Furosemide (Lasix) 20 mg IVP DAILY [facility] Last Admin: 06/07/18 09:16 Dose: 20 mg Lisinopril (Zestril) 10 mg PO DAILY [facility] Lorazepam (Ativan) 0.5 mg IVP Q6H PRN; Protocol PRN Reason: Anxiety Methadone HCl (Methadone) 70 mg PO DAILY [facility] Last Admin: 06/05/18 09:43 Dose: 70 mg Pantoprazole Sodium (Protonix Ec Tab) 40 mg PO 0600 [facility] Last Admin: 06/07/18 05:53 Dose: 40 mg Polyethylene Glycol (Miralax) 17 gm PO DAILY [facility] Last Admin: 06/07/18 09:16 Dose: 17 gm Primaquine Phosphate (Primaquine) 26.3 mg PO DAILY [facility] PRN Reason: Protocol Last Admin: 06/07/18 09:15 Dose: 26.3 mg Spironolactone (Aldactone) 25 mg PO BID [facility] Last Admin: 06/07/18 09:16 Dose: 25 mg - Labs Labs: 06/07/18 07:20 06/07/18 07:20 PT 20.8 SECONDS (9.4-12.5) H 06/02/18 18:15 INR 1.80 06/02/18 18:15 APTT 26.7 Seconds (25.1-36.5) 06/02/18 18:15 - Head Exam Head Exam: ATRAUMATIC, NORMAL INSPECTION, NORMOCEPHALIC - Eye Exam Eye Exam: EOMI, Normal appearance Pupil Exam: NORMAL ACCOMODATION - ENT Exam ENT Exam: Normal Exam - Respiratory Exam Respiratory Exam: Rhonchi, NORMAL BREATHING PATTERN. absent: Chest Wall Tenderness, Prolonged Expiratory Phase - Cardiovascular Exam Cardiovascular Exam: +S1, +S2. absent: Diastolic murmur - GI/Abdominal Exam GI & Abdominal Exam: Soft, Normal Bowel Sounds - Neurological Exam Neurological Exam: Alert, Awake, CN II-XII Intact, Oriented x3 - Psychiatric Exam Psychiatric exam: Normal Affect, Normal Mood - Skin Skin Exam: Dry, Intact, Warm Assessment and Plan - Assessment and Plan (Free Text) Plan: (1) Acute kidney injury Assessment & Plan: Resolved Cardiorenal etiology, improved with diuresis; metabolic alkalosis increasing; continue IV lasix to 20 mg daily; continue aldactone 25 mg bid; should continue to optimize CHF meds; Continue Coreg 6.25mg PO BID Status: Acute (2) Congestive heart failure Assessment & Plan: Acute severely decompensated systolic CHF; much improved by exam/symptoms; Continue Lisinopril 10mg PO Daily, should titrate dose upward as tolerated along with B-nicolle; Optimize medication for CHF. Status: Acute (3) Proteinuria Assessment & Plan: Mild, awaiting random urine for protein/creatinine; low complements can be seen in liver dysfunction; if significant proteinuria present, will pursue further workup; Status: Acute (4) Sepsis Status: Acute (5) Electrolyte imbalance Assessment & Plan: Repleted Will continue to monitor with serial CMP's. need to avoid metabolic alkalosis and hypokalemia; Status: Acute Plan disucssed with Dr. Uriarte. Jared Cam, PGY-2 <Steve Uriarte - Last Filed: 06/08/18 06:58> Objective - Vital Signs/Intake and Output Vital Signs (last 24 hours): Temp Pulse Resp BP Pulse Ox 98.5 F 66 18 96/70 L 95 06/07/18 14:00 06/07/18 17:00 06/07/18 14:00 06/07/18 17:00 06/07/18 14:00 Intake and Output: 06/07/18 06/08/18 18:59 06:59 Intake Total 1585 Balance 1585 - Medications Medications: Current Medications Albuterol/Ipratropium (Duoneb 3 Mg/0.5 Mg (3 Ml) Ud) 3 ml IH [id number] [facility] Last Admin: 06/08/18 02:42 Dose: Not Given Carvedilol (Coreg) 3.125 mg PO BID [facility] Last Admin: 06/07/18 17:00 Dose: Not Given Clindamycin HCl (Cleocin) 600 mg PO 0600,1400,2200 [facility] PRN Reason: Protocol Last Admin: 06/08/18 05:53 Dose: 600 mg Lisinopril (Zestril) 5 mg PO DAILY [facility] Lorazepam (Ativan) 0.5 mg IVP Q6H PRN; Protocol PRN Reason: Anxiety Methadone HCl (Methadone) 70 mg PO DAILY [facility] Last Admin: 06/05/18 09:43 Dose: 70 mg Pantoprazole Sodium (Protonix Ec Tab) 40 mg PO 0600 [facility] Last Admin: 06/08/18 05:53 Dose: 40 mg Polyethylene Glycol (Miralax) 17 gm PO BID [facility] Last Admin: 06/07/18 17:04 Dose: 17 gm Primaquine Phosphate (Primaquine) 26.3 mg PO DAILY [facility] PRN Reason: Protocol Last Admin: 06/07/18 09:15 Dose: 26.3 mg Spironolactone (Aldactone) 25 mg PO BID [facility] Last Admin: 06/07/18 16:59 Dose: Not Given - Labs Labs: 06/07/18 07:20 06/07/18 07:20 PT 20.8 SECONDS (9.4-12.5) H 06/02/18 18:15 INR 1.80 06/02/18 18:15 APTT 26.7 Seconds (25.1-36.5) 06/02/18 18:15 Assessment and Plan (1) Acute kidney injury Status: Acute (2) Congestive heart failure Status: Acute (3) Proteinuria Status: Acute (4) Sepsis Status: Acute (5) Electrolyte imbalance Status: Acute Attending/Attestation - Attestation I have personally seen and examined this patient.: Yes I have fully participated in the care of the patient.: Yes I have reviewed all pertinent clinical information, including history, physical exam and plan: Yes Notes (Text): Patient seen and examined; I agree with the resident's note as above with the following additions/edits: 38 yo F w/ HIV, hep C, cardiomyopathy, admitted with severely decompensated systolic CHF, BERNICE and transaminitis in the setting of medication non-compliance; CHF markedly improved with diuretics; BERNICE also resolved, consistent with cardiorenal syndrome; tranaminitis also improving progressively; Goal of therapy should be to optimize CHF status; no need for aggressive diuresis at this time as patient appears euvolemic on exam; BP drop noted today , d/c IV lasix; decrease aldactone 25 mg to once daily for now (alkalosis should improve off IV lasix); recommend to titrate dose of B-nicolle/MYRNA inhibitor upward as tolerated as these are the mainstays of therapy; can restart diuretics with low dose PO chlorthalidone if needed; should monitor daily weights;
--- NOTE | 2018-06-07 11:23 | CP.PCM.PN ---
<Joe Lynne - Last Filed: 06/07/18 11:19> Subjective - Date & Time of Evaluation Date of Evaluation: 06/07/18 Time of Evaluation: 11:19 - Subjective Subjective: PGY-[address] Cortés No acute events noted overnight. Patient stated cough has improved and she has been breathing much better. Tolerating diet as well. Her main complaint was related to opioid withdrawal - back pain, stomach pains, which she gets when she doesn't receive her maintenance methadone. Her methadone is being held due to Qtc prolongation - she stated if she doesn't receive something today she will sign out AMA. We'll get a repeat EKG and see if Qtc has improved. Objective - Vital Signs/Intake and Output Vital Signs (last 24 hours): Temp Pulse Resp BP Pulse Ox 98.5 F 70 18 109/76 95 06/07/18 06:00 06/07/18 09:16 06/07/18 06:00 06/07/18 11:05 06/07/18 06:00 Intake and Output: 06/07/18 06/07/18 06:59 18:59 Intake Total 420 Balance 420 - Medications Medications: Current Medications Albuterol/Ipratropium (Duoneb 3 Mg/0.5 Mg (3 Ml) Ud) 3 ml IH [id number] [facility] Last Admin: 06/07/18 07:24 Dose: 3 ml Carvedilol (Coreg) 6.25 mg PO BID [facility] Clindamycin HCl (Cleocin) 600 mg PO 0600,1400,2200 [facility] PRN Reason: Protocol Last Admin: 06/07/18 05:53 Dose: 600 mg Furosemide (Lasix) 20 mg IVP DAILY [facility] Last Admin: 06/07/18 09:16 Dose: 20 mg Lisinopril (Zestril) 10 mg PO DAILY [facility] Lorazepam (Ativan) 0.5 mg IVP Q6H PRN; Protocol PRN Reason: Anxiety Methadone HCl (Methadone) 70 mg PO DAILY [facility] Last Admin: 06/05/18 09:43 Dose: 70 mg Pantoprazole Sodium (Protonix Ec Tab) 40 mg PO 0600 [facility] Last Admin: 06/07/18 05:53 Dose: 40 mg Polyethylene Glycol (Miralax) 17 gm PO DAILY [facility] Last Admin: 06/07/18 09:16 Dose: 17 gm Primaquine Phosphate (Primaquine) 26.3 mg PO DAILY [facility] PRN Reason: Protocol Last Admin: 06/07/18 09:15 Dose: 26.3 mg Spironolactone (Aldactone) 25 mg PO BID [facility] Last Admin: 06/07/18 09:16 Dose: 25 mg - Labs Labs: 06/07/18 07:20 06/07/18 07:20 PT 20.8 SECONDS (9.4-12.5) H 06/02/18 18:15 INR 1.80 06/02/18 18:15 APTT 26.7 Seconds (25.1-36.5) 06/02/18 18:15 - Additional Findings Additional findings: - Constitutional Appears: No Acute Distress, appears older than stated age - Head Exam Head Exam: ATRAUMATIC, NORMAL INSPECTION - Eye Exam Eye Exam: Normal appearance, perrla - ENT Exam ENT Exam: Mucous Membranes Moist - Respiratory Exam Respiratory Exam: Decreased Breath Sounds, Rhonchi, most prominent in lower lobes b/l - Cardiovascular Exam Cardiovascular Exam: REGULAR RHYTHM, +S1, +S2. absent: Gallop, Rubs, Murmur - GI/Abdominal Exam GI & Abdominal Exam: Soft, Normal Bowel Sounds. absent: Tenderness - Extremities Exam Extremities Exam: absent: Calf Tenderness, Pedal Edema - Neurological Exam Neurological Exam: Alert, Awake, Oriented x3 - Psychiatric Exam Psychiatric exam: Normal Affect, Normal Mood - Skin Skin Exam: Dry, Intact, Warm Assessment and Plan - Assessment and Plan (Free Text) Assessment: Ms. 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 Umaña Acute Hepatic Failure - Most likely secondary to PCP or passive congestion - LFT's downtrending, will continue to monitor - Hypoalbuminemia; likely due to poor nutritional state - GI on board, Dr Centeno (Dr Jake mccurdy) - IR consulted for a liver biopsy; biopsy necessary in this AIDS patient who is susceptible to multiple infectious etiologies * Scheduled for liver biopsy with Dr Andrea Pierre 06/08 at 3pm (npo after 11am) History of AIDS - Last CD4 <20 (03/11/2018). Pt noncompliant with antiretrovirals - Hx of Hep C, CMV, EBV, PCP pneumonia - HCV: treated with Harvoni, CMV IgG Ab >10 (05/20/18), EBV EA IgG 62.90 (05/20/18 ) - Midline placed on 06/05 - C/w Clindamycin 600mg PO Q8 and Primaquine 26.3mg PO for PCP treatment- on day #5 of - RPR: non reactive - Blood cultures: negative x2 after 4 days - ID Consulted, Dr. Granado - F/u AFB for MAC infection Troponin Leak 2/2 demand ischemia vs HIV cardiomyopathy - No cardiac complaints, elevated troponins less likely due to ischemia - Troponin 0.54, 0.26, 0.23- downtrending - C/w Coreg 3.125mg PO BID, lasix 20iv qd, lisinopril 5mg po qd, aldactone 25mg po bid - Cardiology on board, Dr Veliz * Per Dr Veliz - continue current regimen - No longer on telemetry History of COPD - C/w Duoneb Q6H [facility] - O2 NC PRN for SOB, maintain SpO2 >90% History of substance abuse - On Methadone 140mg at home- dose held given prolonged QTc - Repeat EKG 06/07 shows Qtc of 499, we'll get another EKG and if Qtc improved we will consider partial dose of her methadone - UDS: positive for Methadone - C/w Ativan 0.5mg IVP Q6 PRN for anxiety BERNICE, resolved - Nephrology consulted, Dr. Uriarte - Will continue to monitor - Avoid nephrotoxins - Added aldactone 25mg po bid given slight metabolic alkalosis DVT ppx: SCD GI PPX: Protonix PT eval and treat Patient case reviewed with and plan approved by attending physician, Dr. Cortés <Yoel Cortés - Last Filed: 06/07/18 13:45> Objective - Vital Signs/Intake and Output Vital Signs (last 24 hours): Temp Pulse Resp BP Pulse Ox 98.5 F 70 18 109/76 95 06/07/18 06:00 06/07/18 09:16 06/07/18 06:00 06/07/18 11:05 06/07/18 06:00 Intake and Output: 06/07/18 06/07/18 06:59 18:59 Intake Total 420 Balance 420 - Medications Medications: Current Medications Albuterol/Ipratropium (Duoneb 3 Mg/0.5 Mg (3 Ml) Ud) 3 ml IH [id number] [facility] Last Admin: 06/07/18 13:20 Dose: 3 ml Carvedilol (Coreg) 6.25 mg PO BID [facility] Clindamycin HCl (Cleocin) 600 mg PO 0600,1400,2200 [facility] PRN Reason: Protocol Last Admin: 06/07/18 13:29 Dose: 600 mg Furosemide (Lasix) 20 mg IVP DAILY [facility] Last Admin: 06/07/18 09:16 Dose: 20 mg Lisinopril (Zestril) 10 mg PO DAILY [facility] Lorazepam (Ativan) 0.5 mg IVP Q6H PRN; Protocol PRN Reason: Anxiety Methadone HCl (Methadone) 70 mg PO DAILY [facility] Last Admin: 06/05/18 09:43 Dose: 70 mg Pantoprazole Sodium (Protonix Ec Tab) 40 mg PO 0600 [facility] Last Admin: 06/07/18 05:53 Dose: 40 mg Polyethylene Glycol (Miralax) 17 gm PO BID [facility] Primaquine Phosphate (Primaquine) 26.3 mg PO DAILY [facility] PRN Reason: Protocol Last Admin: 06/07/18 09:15 Dose: 26.3 mg Spironolactone (Aldactone) 25 mg PO BID [facility] Last Admin: 06/07/18 09:16 Dose: 25 mg - Labs Labs: 06/07/18 07:20 06/07/18 07:20 PT 20.8 SECONDS (9.4-12.5) H 06/02/18 18:15 INR 1.80 06/02/18 18:15 APTT 26.7 Seconds (25.1-36.5) 06/02/18 18:15 Attending/Attestation - Attestation I have personally seen and examined this patient.: Yes I have fully participated in the care of the patient.: Yes I have reviewed all pertinent clinical information, including history, physical exam and plan: Yes Notes (Text): 06/07/18 13:43 38 year old female with past medical history of HIV/AIDS, hepatitis C, PCP pneumonia, CHF, COPD, noncompliance and substance (heroin) abuse) who was recently admitted for PCP pneumonia but left AMA presented with acute on chronic CHF exacerbation, acute renal failure and transaminitis. Her CHF has improved. She is being followed by cardiology. She is currently on lasix, aldactone, coreg and lisinopril. Transaminitis is improving. She is s/p acetylcystine treatment. Abdominal ultrasound showed hepatosplenomegaly. IR evaluation was requested for possible liver biopsy. GI is following. Her BERNICE also has resolved. Nephrology is following. She was counselled on risks of continued substance abuse. Counselled on medication compliance. Today she complains of withdrawal symptoms and is requesting methadone. Will repeat EKG to check QTc, if decreasing consider resuming her methadone at a lower dose as QTc was initially prolonged. Overall prognosis is guarded. Yoel Cortés MD Hospitalist.
--- NOTE | 2018-06-07 11:45 | CP.PCM.PN ---
Subjective - Date & Time of Evaluation Date of Evaluation: 06/07/18 Time of Evaluation: 10:25 - Subjective Subjective: S&E at bedside, chart reviewed. No BM even with extra dose of Miralax, denies N/ V or abdominal pain, passing gas. No SOB or chest pain. Tolerating oral intake, LFT continue to show a downward trend. No acute event reported from last night by [facility] staff or patient. Objective - Vital Signs/Intake and Output Vital Signs (last 24 hours): Temp Pulse Resp BP Pulse Ox 98.5 F 70 18 109/76 95 06/07/18 06:00 06/07/18 09:16 06/07/18 06:00 06/07/18 11:05 06/07/18 06:00 Intake and Output: 06/07/18 06/07/18 06:59 18:59 Intake Total 420 Balance 420 - Medications Medications: Current Medications Albuterol/Ipratropium (Duoneb 3 Mg/0.5 Mg (3 Ml) Ud) 3 ml IH [id number] [facility] Last Admin: 06/07/18 07:24 Dose: 3 ml Carvedilol (Coreg) 6.25 mg PO BID [facility] Clindamycin HCl (Cleocin) 600 mg PO 0600,1400,2200 [facility] PRN Reason: Protocol Last Admin: 06/07/18 05:53 Dose: 600 mg Furosemide (Lasix) 20 mg IVP DAILY [facility] Last Admin: 06/07/18 09:16 Dose: 20 mg Lisinopril (Zestril) 10 mg PO DAILY [facility] Lorazepam (Ativan) 0.5 mg IVP Q6H PRN; Protocol PRN Reason: Anxiety Methadone HCl (Methadone) 70 mg PO DAILY [facility] Last Admin: 06/05/18 09:43 Dose: 70 mg Pantoprazole Sodium (Protonix Ec Tab) 40 mg PO 0600 [facility] Last Admin: 06/07/18 05:53 Dose: 40 mg Polyethylene Glycol (Miralax) 17 gm PO DAILY [facility] Last Admin: 06/07/18 09:16 Dose: 17 gm Primaquine Phosphate (Primaquine) 26.3 mg PO DAILY [facility] PRN Reason: Protocol Last Admin: 06/07/18 09:15 Dose: 26.3 mg Spironolactone (Aldactone) 25 mg PO BID [facility] Last Admin: 06/07/18 09:16 Dose: 25 mg - Labs Labs: 06/07/18 07:20 06/07/18 07:20 PT 20.8 SECONDS (9.4-12.5) H 06/02/18 18:15 INR 1.80 06/02/18 18:15 APTT 26.7 Seconds (25.1-36.5) 06/02/18 18:15 - Constitutional Appears: No Acute Distress - Head Exam Head Exam: NORMOCEPHALIC - Eye Exam Eye Exam: Normal appearance. absent: Scleral icterus - ENT Exam ENT Exam: Mucous Membranes Moist - Neck Exam Neck Exam: Normal Inspection - Respiratory Exam Respiratory Exam: Rhonchi, NORMAL BREATHING PATTERN. absent: Respiratory Distress - Cardiovascular Exam Cardiovascular Exam: +S1, +S2 - GI/Abdominal Exam GI & Abdominal Exam: Soft, Normal Bowel Sounds. absent: Guarding, Tenderness, Rebound - Extremities Exam Extremities Exam: Pedal Edema. absent: Calf Tenderness - Neurological Exam Neurological Exam: Alert, Awake, Oriented x3 - Skin Skin Exam: Dry, Warm Assessment and Plan - Assessment and Plan (Free Text) Assessment: Assessment: Transaminitis, etiology likely 2/2 unknown, suspect PCP, consider as well passive congestion, acute viral hep neg, doubt ischemic, autoimmune neg Heroine Use AIDS H/O Hepatitis C, treated in the past COPD/Asthma Constipation PLAN: continue to trend LFT, continue on downward trend consider liver Biopsy if elevation persits, but does show improvement -PT/PTT/INR stable -abx as per ID continue PPI Methadone on hold continue Miralax, patient says she may have urge to go, can try prune juice or will increase Miralax to bid, discussed with nurse. Discussed w/ Dr. Joseph covering Dr. Centeno.
--- NOTE | 2018-06-07 14:39 | CP.PCM.PN ---
<Judy Fitzpatrick - Last Filed: 06/07/18 14:37> Subjective - Date & Time of Evaluation Date of Evaluation: 06/07/18 Time of Evaluation: 09:00 - Subjective Subjective: PGY-3 infectious disease progress note for Dr. Granado Patient seen and examined at bedside. Patient denies any pain. She reports general fatigue. Patient denies any fever, chills, chest pain, n/v, sob, dyuria , abd pain. Objective - Vital Signs/Intake and Output Vital Signs (last 24 hours): Temp Pulse Resp BP Pulse Ox 98.5 F 70 18 109/76 95 06/07/18 06:00 06/07/18 09:16 06/07/18 06:00 06/07/18 11:05 06/07/18 06:00 Intake and Output: 06/07/18 06/07/18 06:59 18:59 Intake Total 420 Balance 420 - Medications Medications: Current Medications Albuterol/Ipratropium (Duoneb 3 Mg/0.5 Mg (3 Ml) Ud) 3 ml IH [id number] [facility] Last Admin: 06/07/18 13:20 Dose: 3 ml Carvedilol (Coreg) 6.25 mg PO BID [facility] Clindamycin HCl (Cleocin) 600 mg PO 0600,1400,2200 [facility] PRN Reason: Protocol Last Admin: 06/07/18 13:29 Dose: 600 mg Furosemide (Lasix) 20 mg IVP DAILY [facility] Last Admin: 06/07/18 09:16 Dose: 20 mg Lisinopril (Zestril) 10 mg PO DAILY [facility] Lorazepam (Ativan) 0.5 mg IVP Q6H PRN; Protocol PRN Reason: Anxiety Methadone HCl (Methadone) 70 mg PO DAILY [facility] Last Admin: 06/05/18 09:43 Dose: 70 mg Pantoprazole Sodium (Protonix Ec Tab) 40 mg PO 0600 [facility] Last Admin: 06/07/18 05:53 Dose: 40 mg Polyethylene Glycol (Miralax) 17 gm PO BID [facility] Primaquine Phosphate (Primaquine) 26.3 mg PO DAILY [facility] PRN Reason: Protocol Last Admin: 06/07/18 09:15 Dose: 26.3 mg Spironolactone (Aldactone) 25 mg PO BID [facility] Last Admin: 06/07/18 09:16 Dose: 25 mg - Labs Labs: 06/07/18 07:20 06/07/18 07:20 PT 20.8 SECONDS (9.4-12.5) H 06/02/18 18:15 INR 1.80 06/02/18 18:15 APTT 26.7 Seconds (25.1-36.5) 06/02/18 18:15 - Additional Findings Additional findings: - Constitutional Appears: Chronically Ill - Head Exam Head Exam: ATRAUMATIC, NORMAL INSPECTION, NORMOCEPHALIC - Eye Exam Eye Exam: Normal appearance - ENT Exam ENT Exam: Mucous Membranes Moist, Normal Oropharynx (no oral thrush) - Respiratory Exam Respiratory Exam: Clear to Auscultation Bilateral, NORMAL BREATHING PATTERN. absent: Rhonchi, Wheezes, Respiratory Distress - Cardiovascular Exam Cardiovascular Exam: REGULAR RHYTHM. absent: Bradycardia, Tachycardia, Diastolic murmur, Systolic Murmur - GI/Abdominal Exam GI & Abdominal Exam: Normal Bowel Sounds, Soft, Tenderness. absent: Diminished Bowel Sounds, Distended, Firm, Guarding - Extremities Exam Extremities exam: absent: pedal edema - Neurological Exam Neurological exam: Alert, Oriented x3 - Skin Skin Exam: Dry, Intact, Normal Color, Warm Assessment and Plan - Assessment and Plan (Free Text) Assessment: 37 yo female with PMH of end stage AIDS (CD4 <20 03/11/18), Hep C, CHF, COPD, Asthma, Hx of IV heroin abuse, noncompliance presents with complaints of increased diffuse swelling, shortness of breath. Probable pneumocystis pneumonia , abx course not completed. continue clindamycin and primaquine day 5 for PCP. Patient is also found to have markedly elevated LFT's and BERNICE, currently downtrending. However because patient continues to have LFTs above normal on multiple admissions recommend liver biopsy to determine cause of transaminitis. RPR negative, quantiferone negative, HCV PCR is not detected. We will order AFB blood cultures to rule out MAC infection. case reviewed and discussed with Dr. Granado <Manpreet Granado - Last Filed: 06/07/18 17:16> Objective - Vital Signs/Intake and Output Vital Signs (last 24 hours): Temp Pulse Resp BP Pulse Ox 98.5 F 66 18 96/70 L 95 06/07/18 14:00 06/07/18 17:00 08/14/18 14:00 06/07/18 17:00 06/07/18 14:00 Intake and Output: 06/07/18 06/07/18 06:59 18:59 Intake Total 420 Balance 420 - Medications Medications: Current Medications Albuterol/Ipratropium (Duoneb 3 Mg/0.5 Mg (3 Ml) Ud) 3 ml IH [id number] [facility] Last Admin: 06/07/18 13:20 Dose: 3 ml Carvedilol (Coreg) 3.125 mg PO BID [facility] Last Admin: 06/07/18 17:00 Dose: Not Given Clindamycin HCl (Cleocin) 600 mg PO 0600,1400,2200 [facility] PRN Reason: Protocol Last Admin: 06/07/18 13:29 Dose: 600 mg Furosemide (Lasix) 20 mg IVP DAILY [facility] Lisinopril (Zestril) 5 mg PO DAILY [facility] Lorazepam (Ativan) 0.5 mg IVP Q6H PRN; Protocol PRN Reason: Anxiety Methadone HCl (Methadone) 70 mg PO DAILY [facility] Last Admin: 06/05/18 09:43 Dose: 70 mg Pantoprazole Sodium (Protonix Ec Tab) 40 mg PO 0600 [facility] Last Admin: 06/07/18 05:53 Dose: 40 mg Polyethylene Glycol (Miralax) 17 gm PO BID [facility] Last Admin: 06/07/18 17:04 Dose: 17 gm Primaquine Phosphate (Primaquine) 26.3 mg PO DAILY [facility] PRN Reason: Protocol Last Admin: 06/07/18 09:15 Dose: 26.3 mg Spironolactone (Aldactone) 25 mg PO BID [facility] Last Admin: 06/07/18 16:59 Dose: Not Given - Labs Labs: 06/07/18 07:20 06/07/18 07:20 PT 20.8 SECONDS (9.4-12.5) H 06/02/18 18:15 INR 1.80 06/02/18 18:15 APTT 26.7 Seconds (25.1-36.5) 06/02/18 18:15 Assessment and Plan - Assessment and Plan (Free Text) Assessment: Infectious Diseases Attending Physician Addendum Patient seen and examined, discussed with medical laboratory technical officer. I have reviewed the pertinent clinical information for the patient, including history of present illness, medical, personal and social histories, lab results and imaging findings. I agree with the above findings, assessment and plan. 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 Patient also with transaminitis - discussed with Dr. Centeno previously - will need liver biopsy. Will continue to monitor transaminases, HCV PCR is undetectable. Patient unable to tolerate PO Zithromax for ARCELIA prophylaxis. Patient also with acute renal failure and Nephrology is following and doing work up. Will continue to monitor clinically.
--- NOTE | 2018-06-07 21:02 | CARD ---
APPROVED REPORT Date of service: 06/07/2018 EKG Measurement Heart [id number] <Conclusion> Normal sinus rhythm RSR' or QR pattern in V1 suggests right ventricular conduction delay ST & T wave abnormality, consider anterior ischemia base line Artefact please repeat Abnormal ECG
[2018-06-08] MEDS: Albuterol-Ipratrop 3 mg / 0.5 (3 ml) UD IH SCH ×4 (02:42→20:36)
[2018-06-08] MEDS: Pantoprazole 40 mg EC Tab PO SCH (05:53)
--- NOTE | 2018-06-08 06:53 | CP.PCM.PN ---
Subjective - Date & Time of Evaluation Date of Evaluation: 06/08/18 Time of Evaluation: 11:15 - Subjective Subjective: Subjective: Patient seen and examined at bedside. Resting comfortably in bed. No acute overnight events. Patient states SOB has significantly improved relative to baseline. Offers no new complaints at this time. Denies fever, chest pain, abdominal pain, nausea, vomiting, diarrhea, constipation, and urinary symptoms. 12-point review of systems negative except as indicated in the HPI Physical Examination: - Constitutional Appears: No Acute Distress, appears older than stated age - Head Exam Head Exam: NORMAL INSPECTION, NORMOCEPHALIC - Eye Exam Eye Exam: EOMI, Normal appearance - ENT Exam ENT Exam: Mucous Membranes Moist, No oral thrush noted, No pharyngitis - Neck Exam Neck exam: Positive for: Normal Inspection - Respiratory Exam Respiratory Exam: normal breathing pattern, rales bilateral lower lobes - Cardiovascular Exam Cardiovascular Exam: normal S1, normal S2 - GI/Abdominal Exam GI & Abdominal Exam: Soft. absent: Rebound - Extremities Exam Extremities exam: Positive for: trace edema bilateral lower extremities Negative for: calf tenderness - Neurological Exam Neurological exam: Awake, alert, responds to verbal stimuli, follows commands, and moves extremities past midline - Skin Skin Exam: Dry, Intact, Warm Assessment and Plan: Patient is a 37 y/o F with a past medical history of AIDS (CD4 <20 03/11/18), Hep C, PCP pneumonia, EBV, CMV, HSV, CHF, COPD, asthma, hx of heroin abuse who was admitted for evaluation and treatment of CHF exacerbation along with her chronic medical conditions. The nephrology team was consulted for evaluation and treatment of elevated levels of serum nitrogen products. Acute Kidney Injury - Resolved - BUN and creatinine reviewed, trended, and appreciated- within normal limits - Cardiorenal component noted- continue to maximize intravascular compartment by improving cardiac function with potential subsquent increases in GFR - avoid nephrotoxins- discontinue lasix 20mg IV daily - continue lisinopril 5mg PO daily and spironolactone 25mg PO BID Proteinuria - awaiting random urine for protein/creatinine - if significant proteinuria present, will pursue further workup Thank you for the opportunity in participating in the care of this patient. We will continue to follow with you. Patient case discussed with and plan approved by attending physician, Dr. Uriarte. Objective - Vital Signs/Intake and Output Vital Signs (last 24 hours): Temp Pulse Resp BP Pulse Ox 98.5 F 66 18 96/70 L 95 06/07/18 14:00 06/07/18 17:00 06/07/18 14:00 06/07/18 17:00 06/07/18 14:00 Intake and Output: 06/07/18 06/08/18 18:59 06:59 Intake Total 1585 Balance 1585 - Medications Medications: Current Medications Albuterol/Ipratropium (Duoneb 3 Mg/0.5 Mg (3 Ml) Ud) 3 ml IH [id number] [facility] Last Admin: 06/08/18 02:42 Dose: Not Given Carvedilol (Coreg) 3.125 mg PO BID [facility] Last Admin: 06/07/18 17:00 Dose: Not Given Clindamycin HCl (Cleocin) 600 mg PO 0600,1400,2200 [facility] PRN Reason: Protocol Last Admin: 06/08/18 05:53 Dose: 600 mg Lisinopril (Zestril) 5 mg PO DAILY [facility] Lorazepam (Ativan) 0.5 mg IVP Q6H PRN; Protocol PRN Reason: Anxiety Methadone HCl (Methadone) 70 mg PO DAILY [facility] Last Admin: 06/05/18 09:43 Dose: 70 mg Pantoprazole Sodium (Protonix Ec Tab) 40 mg PO 0600 [facility] Last Admin: 06/08/18 05:53 Dose: 40 mg Polyethylene Glycol (Miralax) 17 gm PO BID [facility] Last Admin: 06/07/18 17:04 Dose: 17 gm Primaquine Phosphate (Primaquine) 26.3 mg PO DAILY [facility] PRN Reason: Protocol Last Admin: 06/07/18 09:15 Dose: 26.3 mg Spironolactone (Aldactone) 25 mg PO BID [facility] Last Admin: 06/07/18 16:59 Dose: Not Given - Labs Labs: 06/07/18 07:20 06/07/18 07:20 PT 20.8 SECONDS (9.4-12.5) H 06/02/18 18:15 INR 1.80 06/02/18 18:15 APTT 26.7 Seconds (25.1-36.5) 06/02/18 18:15
[2018-06-08 07:05] LABS: BASO # 0.01 K/mm3 (0.0-2.0); BASO % 0.4 % (0.0-3.0); EOS # 0.2 (0.0-0.7); EOS % 8.1 % (1.5-5.0); GRAN # 1.32 (1.4-6.5); GRAN % 48.3 % (50.0-68.0); HEMOGLOBIN 9.7 g/dL (12.0-16.0); LYMPH # 0.9 (1.2-3.4); LYMPH % 32.6 % (22.0-35.0); MEAN CELL VOLUME 80.6 fl (80.0-105.0); MEAN CORPUSCULAR HEMOGLOBIN 24.8 pg (25.0-35.0); MEAN CORPUSCULAR HGB CONC 30.8 g/dl (31.0-37.0); MONO # 0.3 (0.1-0.6); MONO % 10.6 % (1.0-6.0); PLATELET COUNT 96 10^3/uL (120.0-450.0); RBC 3.91 10^6/uL (3.5-6.1); RED CELL DISTRIBUTION WIDTH 16.8 % (11.5-14.5)
--- NOTE | 2018-06-08 07:05 | CP.PCM.PN ---
Subjective - Date & Time of Evaluation Date of Evaluation: 06/08/18 Time of Evaluation: 06:25 - Subjective Subjective: feels better, denies shortness of breath awake,alert, no distress Reason for consultation and follow up: Cardiac evaluation of shortness of breath , History of AIDS ,non-compliant with medications, COPD, smoker Seen and examined by me and Dr. Veliz Objective - Vital Signs/Intake and Output Vital Signs (last 24 hours): Temp Pulse Resp BP Pulse Ox 98.5 F 66 18 96/70 L 95 06/07/18 14:00 06/07/18 17:00 06/07/18 14:00 06/07/18 17:00 06/07/18 14:00 Intake and Output: 06/08/18 06/08/18 06:59 18:59 Intake Total 1585 Balance 1585 - Medications Medications: Current Medications Albuterol/Ipratropium (Duoneb 3 Mg/0.5 Mg (3 Ml) Ud) 3 ml IH [id number] [facility] Last Admin: 06/08/18 02:42 Dose: Not Given Carvedilol (Coreg) 3.125 mg PO BID [facility] Last Admin: 06/07/18 17:00 Dose: Not Given Clindamycin HCl (Cleocin) 600 mg PO 0600,1400,2200 [facility] PRN Reason: Protocol Last Admin: 06/08/18 05:53 Dose: 600 mg Lisinopril (Zestril) 5 mg PO DAILY [facility] Lorazepam (Ativan) 0.5 mg IVP Q6H PRN; Protocol PRN Reason: Anxiety Methadone HCl (Methadone) 70 mg PO DAILY [facility] Last Admin: 06/05/18 09:43 Dose: 70 mg Pantoprazole Sodium (Protonix Ec Tab) 40 mg PO 0600 [facility] Last Admin: 06/08/18 05:53 Dose: 40 mg Polyethylene Glycol (Miralax) 17 gm PO BID [facility] Last Admin: 06/07/18 17:04 Dose: 17 gm Primaquine Phosphate (Primaquine) 26.3 mg PO DAILY [facility] PRN Reason: Protocol Last Admin: 06/07/18 09:15 Dose: 26.3 mg Spironolactone (Aldactone) 25 mg PO BID [facility] Last Admin: 06/07/18 16:59 Dose: Not Given - Labs Labs: 06/07/18 07:20 06/07/18 07:20 PT 20.8 SECONDS (9.4-12.5) H 06/02/18 18:15 INR 1.80 06/02/18 18:15 APTT 26.7 Seconds (25.1-36.5) 06/02/18 18:15 - Constitutional Appears: No Acute Distress - Eye Exam Eye Exam: Normal appearance - ENT Exam ENT Exam: Mucous Membranes Moist - Respiratory Exam Respiratory Exam: Decreased Breath Sounds, Clear to Ausculation Bilateral, NORMAL BREATHING PATTERN - Cardiovascular Exam Cardiovascular Exam: +S1 - GI/Abdominal Exam GI & Abdominal Exam: Soft, Normal Bowel Sounds - Extremities Exam Extremities Exam: Normal Capillary Refill - Neurological Exam Neurological Exam: Alert, Awake, Oriented x3 - Psychiatric Exam Psychiatric exam: Normal Affect - Skin Skin Exam: Intact, Warm Assessment and Plan - Assessment and Plan (Free Text) Assessment: A 37 year old female who came in to the ER due to shortness of breath. she was just recently discharged [place] [facility] [place]. History of AIDS,Hep C, CMV,Brian-Coker virus ,CHF,COPD,asthma, hx of heroin abuse, on Methadone,non compliant with medications. cardiomyopathy-LV systolic dysfunction EF 35%. Exacerbation of congestive heart failure.non compliance of medications. Plan: Improved clinically Denies shortness of breath Stable cardiac status Stable heart rate and blood pressure On Coreg 3.125 mg BID,Lasix 20 mg daily, Zestril 5 mg daily, Aldactone 25 mg daily Continue current treatment Continue current medications ID on consult. continue IV antibiotics GI on consult Will follow up Plan and treatment discussed with Dr. Veliz
[2018-06-08 07:23] LABS: WHITE BLOOD COUNT 2.7 10^3/ul (4.5-11.0)
[2018-06-08 07:29] LABS: ALB/GLOB RATIO 0.7 (1.1-1.8); ALBUMIN 2.6 g/dL (3.0-4.8); ALT/SGPT 426 U/L (7-56); AST/SGOT 164 U/L (14-36); BLOOD UREA NITROGEN 13 mg/dL (7-21); CALCIUM 8.4 mg/dL (8.4-10.5); GFR AFRICAN-AMERICAN > 60; GFR NON-AFRICAN AMERICAN > 60
--- NOTE | 2018-06-08 08:21 | PN ---
Copied To: Isaias Joseph MD Attending MD: Isaias Joseph MD ADDENDUM DATE: 06/07/2018 ADDENDUM This is an addendum to a progress note dictated by Marquita Jalloh APN. The patient was seen by me. She denies any abdominal pain, nausea and vomiting. Her liver enzymes continue to trend downward with AST today down to 280 and ALT down to 535. I suspect that this is all secondary to passive congestion of the liver from heart failure. RECOMMENDATIONS: Continue current care. Isaias Joseph MD
[2018-06-08] MEDS ORDERED: Magnesium 2 gm/50 ml NS 2 GM/50 ML BAG IVPB ONE (09:06)
[2018-06-08] MEDS: Primaquine 26.3 mg Tab PO SCH (09:24)
[2018-06-08] MEDS: POLYETHYLENE GLYCOL 3350 17 GM/Dose PACKET PO SCH (09:24)
--- NOTE | 2018-06-08 09:54 | CARD ---
APPROVED REPORT Date of service: 06/08/2018 EKG Measurement Heart [id number] [id number] <Conclusion> Normal sinus rhythm RSR' or QR pattern in V1 suggests right ventricular conduction delay T wave abnormality, consider anterior ischemia Prolonged QT Abnormal ECG
[2018-06-08] MEDS: Magnesium Oxide 400 mg Tab UD PO SCH ×2 (10:53→17:17)
--- NOTE | 2018-06-08 11:50 | CP.PCM.PN ---
Subjective - Date & Time of Evaluation Date of Evaluation: 06/08/18 Time of Evaluation: 10:20 - Subjective Subjective: S&E at bedside , chart reviewed, no N/V or abdominal pain. No acute overnight events. No BM yet, says not eating that much , last BM 2-3 days ago. No fever, chills, overt GI bleeding. Awaiting liver BX. Objective - Vital Signs/Intake and Output Vital Signs (last 24 hours): Temp Pulse Resp BP Pulse Ox 98.6 F 79 18 159/62 H 95 06/08/18 06:00 06/08/18 06:00 06/08/18 06:00 06/08/18 09:28 06/08/18 06:00 Intake and Output: 06/08/18 06/08/18 06:59 18:59 Intake Total 1585 Balance 1585 - Medications Medications: Current Medications Albuterol/Ipratropium (Duoneb 3 Mg/0.5 Mg (3 Ml) Ud) 3 ml IH [id number] [facility] Last Admin: 06/08/18 07:30 Dose: 3 ml Carvedilol (Coreg) 3.125 mg PO BID [facility] Last Admin: 06/08/18 09:24 Dose: 3.125 mg Clindamycin HCl (Cleocin) 600 mg PO 0600,1400,2200 [facility] PRN Reason: Protocol Last Admin: 06/08/18 05:53 Dose: 600 mg Lactulose (Enulose) 10 gm PO ONCE ONE Stop: 06/08/18 16:01 Lisinopril (Zestril) 5 mg PO DAILY [facility] Last Admin: 06/08/18 09:28 Dose: 5 mg Lorazepam (Ativan) 0.5 mg IVP Q6H PRN; Protocol PRN Reason: Anxiety Magnesium Oxide (Mag-Ox) 400 mg PO BID [facility] Stop: 06/09/18 23:59 Last Admin: 06/08/18 10:53 Dose: 400 mg Methadone HCl (Methadone) 70 mg PO DAILY [facility] Last Admin: 06/05/18 09:43 Dose: 70 mg Pantoprazole Sodium (Protonix Ec Tab) 40 mg PO 0600 [facility] Last Admin: 06/08/18 05:53 Dose: 40 mg Polyethylene Glycol (Miralax) 17 gm PO BID [facility] Last Admin: 06/08/18 09:24 Dose: 17 gm Primaquine Phosphate (Primaquine) 26.3 mg PO DAILY [facility] PRN Reason: Protocol Last Admin: 06/08/18 09:24 Dose: 26.3 mg Spironolactone (Aldactone) 25 mg PO DAILY [facility] Last Admin: 06/08/18 09:24 Dose: 25 mg - Labs Labs: 06/08/18 06:45 06/08/18 06:45 PT 20.8 SECONDS (9.4-12.5) H 06/02/18 18:15 INR 1.80 06/02/18 18:15 APTT 26.7 Seconds (25.1-36.5) 06/02/18 18:15 - Constitutional Appears: No Acute Distress - Head Exam Head Exam: absent: NORMOCEPHALIC - Eye Exam Eye Exam: Normal appearance. absent: Scleral icterus - ENT Exam ENT Exam: Mucous Membranes Moist - Neck Exam Neck Exam: Normal Inspection - Respiratory Exam Respiratory Exam: NORMAL BREATHING PATTERN. absent: Respiratory Distress - Cardiovascular Exam Cardiovascular Exam: +S1, +S2 - GI/Abdominal Exam GI & Abdominal Exam: Soft, Normal Bowel Sounds. absent: Guarding, Tenderness, Rebound - Extremities Exam Extremities Exam: absent: Calf Tenderness, Pedal Edema - Neurological Exam Neurological Exam: Alert, Awake, Oriented x3 - Skin Skin Exam: Dry, Warm Assessment and Plan - Assessment and Plan (Free Text) Assessment: Assessment: Transaminitis, etiology likely 2/2 unknown, suspect PCP, consider as well passive congestion, acute viral hep neg, doubt ischemic, autoimmune neg Heroine Use AIDS H/O Hepatitis C, treated in the past COPD/Asthma Constipation PLAN: continue to trend LFT, continue on downward trend for liver BX today PT/PTT/INR stable abx as per ID continue PPI Methadone on hold on Miralax BID, will give a dose of Lactulose this afternoon if no BM, if lactulose given hold PM dose of Miralax Discussed w/ Dr. Joseph covering Dr. Centeno.
--- NOTE | 2018-06-08 12:21 | PN ---
Copied To: Cheikh Chou MD Attending MD: Cheikh Chou MD DATE: 06/08/2018 SUBJECTIVE: The patient is in bed, in no acute distress, nontoxic. PHYSICAL EXAMINATION: VITAL SIGNS: On exam, temperature is 98, blood pressure is 96/70, respiratory rate 18, heart rate of 66. HEENT: Unremarkable. NECK: Supple. LUNGS: Have decreased breath sounds. HEART: Normal S1, S2. ABDOMEN: Soft. LABORATORY DATA: Laboratory examination reveals a white count of 2.7, hemoglobin of 9, platelets of 96. Chemistries reveals a BUN of 13, creatinine of 0.8 and serology is noted. Microbiology is reviewed. ASSESSMENT AND PLAN: A 38-year-old female known to me from multiple previous admissions, was seen earlier today in 573, bed 1, has end-stage acquired immune deficiency syndrome, Pneumocystis carinii pneumonia and with liver function test elevation. The patient has very poor compliance with her medications and also with acute renal failure. Overall prognosis is quite poor. The patient's social issues must be resolved first. Cheikh Chou MD
--- NOTE | 2018-06-08 13:39 | CP.PCM.PN ---
<Moises Lam - Last Filed: 06/08/18 14:15> Subjective - Date & Time of Evaluation Date of Evaluation: 06/08/18 Time of Evaluation: 13:36 - Subjective Subjective: Moises Lam D.O PGY-1, Internal Medicine progress note for Dr. Cortés Patient was examined at bedside, no acute overnight events. Patient is asking for her maintenance methadone. Decreased dose of methadone was given after reviewing her EKG today. Denies fevers, chills, chest pain, shortness of breath , abdominal pain, N/V/D. Objective - Vital Signs/Intake and Output Vital Signs (last 24 hours): Temp Pulse Resp BP Pulse Ox 98.6 F 79 18 159/62 H 95 06/08/18 06:00 06/08/18 06:00 06/08/18 06:00 06/08/18 09:28 06/08/18 06:00 Intake and Output: 06/08/18 06/08/18 06:59 18:59 Intake Total 1585 Balance 1585 - Medications Medications: Current Medications Albuterol/Ipratropium (Duoneb 3 Mg/0.5 Mg (3 Ml) Ud) 3 ml IH [id number] [facility] Last Admin: 06/08/18 13:25 Dose: Not Given Carvedilol (Coreg) 3.125 mg PO BID [facility] Last Admin: 06/08/18 09:24 Dose: 3.125 mg Clindamycin HCl (Cleocin) 600 mg PO 0600,1400,2200 [facility] PRN Reason: Protocol Last Admin: 06/08/18 05:53 Dose: 600 mg Lactulose (Enulose) 10 gm PO ONCE ONE Stop: 06/08/18 16:01 Lisinopril (Zestril) 5 mg PO DAILY [facility] Last Admin: 06/08/18 09:28 Dose: 5 mg Lorazepam (Ativan) 0.5 mg IVP Q6H PRN; Protocol PRN Reason: Anxiety Magnesium Oxide (Mag-Ox) 400 mg PO BID [facility] Stop: 06/09/18 23:59 Last Admin: 06/08/18 10:53 Dose: 400 mg Methadone HCl (Methadone) 70 mg PO DAILY [facility] Last Admin: 06/05/18 09:43 Dose: 70 mg Pantoprazole Sodium (Protonix Ec Tab) 40 mg PO 0600 [facility] Last Admin: 06/08/18 05:53 Dose: 40 mg Polyethylene Glycol (Miralax) 17 gm PO BID [facility] Last Admin: 06/08/18 09:24 Dose: 17 gm Primaquine Phosphate (Primaquine) 26.3 mg PO DAILY [facility] PRN Reason: Protocol Last Admin: 06/08/18 09:24 Dose: 26.3 mg Spironolactone (Aldactone) 25 mg PO DAILY [facility] Last Admin: 06/08/18 09:24 Dose: 25 mg - Labs Labs: 06/08/18 06:45 06/08/18 06:45 PT 20.8 SECONDS (9.4-12.5) H 06/02/18 18:15 INR 1.80 06/02/18 18:15 APTT 26.7 Seconds (25.1-36.5) 06/02/18 18:15 - Constitutional Appears: No Acute Distress - Head Exam Head Exam: ATRAUMATIC, NORMAL INSPECTION - Eye Exam Eye Exam: Normal appearance - ENT Exam ENT Exam: Mucous Membranes Moist - Respiratory Exam Respiratory Exam: Decreased Breath Sounds, Rhonchi. absent: Rales, Wheezes, Respiratory Distress Additional comments: Mild rhonchi heard on bilateral lungs - Cardiovascular Exam Cardiovascular Exam: REGULAR RHYTHM, +S1, +S2. absent: Gallop, Rubs, Murmur - GI/Abdominal Exam GI & Abdominal Exam: Soft, Normal Bowel Sounds. absent: Tenderness - Extremities Exam Extremities Exam: absent: Calf Tenderness, Pedal Edema - Neurological Exam Neurological Exam: Alert, Awake, Oriented x3 - Psychiatric Exam Psychiatric exam: Normal Affect, Normal Mood - Skin Skin Exam: Dry, Intact, Warm Assessment and Plan - Assessment and Plan (Free Text) Assessment: Ms. Ruiz is a 37 y.o female with PMH of AIDS (CD4 <20 03/11/18), hepatitis C , PCP pneumonia, EBV, CMV, HSV, CHF, COPD, asthma, and history of heroin abuse admitted for PCP pneumonia and multi-organ dysfunction 2/2 medication noncompliance. 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 Veliz Acute Hepatic Failure - Most likely secondary to PCP or passive congestion - LFT's downtrending, will continue to monitor - Hypoalbuminemia; likely due to poor nutritional state - GI on board, Dr Centeno (Dr Jake mccurdy) - IR consulted, scheduled for liver biopsy with Dr. Andrea Pierre at 3pm today History of AIDS - Last CD4 <20 (03/11/2018). Pt noncompliant with antiretrovirals - Hx of Hep C, CMV, EBV, PCP pneumonia - HCV: treated with Harvoni, CMV IgG Ab >10 (05/20/18), EBV EA IgG 62.90 (05/20/18 ) - Midline placed on 06/05 - C/w Clindamycin 600mg PO Q8 and Primaquine 26.3mg PO for PCP treatment- on day #6 of 14 - RPR: non reactive - Blood cultures: negative x2 after 5 days - ID Consulted, Dr. Granado - F/u AFB for MAC infection Troponin Leak 2/2 demand ischemia vs HIV cardiomyopathy - No cardiac complaints, elevated troponins less likely due to ischemia - Cardiology on board, Dr Veliz - Continue current regimen as per Dr. Veliz History of COPD - C/w Duoneb Q6H benjamin - O2 NC PRN for SOB, maintain SpO2 >90% - Will wean off O2 NC today History of substance abuse - On Methadone 140mg at home- dose held given prolonged QTc - Repeat EKG (06/08) shows Qtc of 491 - Methadone 70mg given today - UDS: positive for Methadone - C/w Ativan 0.5mg IVP Q6 PRN for anxiety BERNICE, resolved - Nephrology consulted, Dr. Uriarte - Will continue to monitor - Avoid nephrotoxins - Added aldactone 25mg po bid given slight metabolic alkalosis DVT ppx: SCD GI PPX: Protonix PT eval and treat Patient case reviewed with and plan approved by attending physician, Dr. Cortés <Yoel Cortés - Last Filed: 06/08/18 15:11> Objective - Vital Signs/Intake and Output Vital Signs (last 24 hours): Temp Pulse Resp BP Pulse Ox 98.6 F 79 18 159/62 H 95 06/08/18 06:00 06/08/18 06:00 06/08/18 06:00 06/08/18 09:28 06/08/18 06:00 Intake and Output: 06/08/18 06/08/18 06:59 18:59 Intake Total 1585 Balance 1585 - Medications Medications: Current Medications Albuterol/Ipratropium (Duoneb 3 Mg/0.5 Mg (3 Ml) Ud) 3 ml IH [id number] [facility] Last Admin: 06/08/18 13:25 Dose: Not Given Carvedilol (Coreg) 3.125 mg PO BID [facility] Last Admin: 06/08/18 09:24 Dose: 3.125 mg Clindamycin HCl (Cleocin) 600 mg PO 0600,1400,2200 [facility] PRN Reason: Protocol Last Admin: 06/08/18 05:53 Dose: 600 mg Lactulose (Enulose) 10 gm PO ONCE ONE Stop: 06/08/18 16:01 Lisinopril (Zestril) 5 mg PO DAILY [facility] Last Admin: 06/08/18 09:28 Dose: 5 mg Lorazepam (Ativan) 0.5 mg IVP Q6H PRN; Protocol PRN Reason: Anxiety Magnesium Oxide (Mag-Ox) 400 mg PO BID [facility] Stop: 06/09/18 23:59 Last Admin: 06/08/18 10:53 Dose: 400 mg Methadone HCl (Methadone) 70 mg PO DAILY [facility] Last Admin: 06/05/18 09:43 Dose: 70 mg Pantoprazole Sodium (Protonix Ec Tab) 40 mg PO 0600 [facility] Last Admin: 06/08/18 05:53 Dose: 40 mg Polyethylene Glycol (Miralax) 17 gm PO BID [facility] Last Admin: 06/08/18 09:24 Dose: 17 gm Primaquine Phosphate (Primaquine) 26.3 mg PO DAILY [facility] PRN Reason: Protocol Last Admin: 06/08/18 09:24 Dose: 26.3 mg Spironolactone (Aldactone) 25 mg PO DAILY [facility] Last Admin: 06/08/18 09:24 Dose: 25 mg - Labs Labs: 06/08/18 06:45 06/08/18 06:45 PT 20.8 SECONDS (9.4-12.5) H 06/02/18 18:15 INR 1.80 06/02/18 18:15 APTT 26.7 Seconds (25.1-36.5) 06/02/18 18:15 Attending/Attestation - Attestation I have personally seen and examined this patient.: Yes I have fully participated in the care of the patient.: Yes I have reviewed all pertinent clinical information, including history, physical exam and plan: Yes Notes (Text): 06/08/18 15:05 38 year old female with past medical history of HIV/AIDS, hepatitis C, PCP pneumonia, CHF, COPD, noncompliance and substance (heroin) abuse who was recently admitted for PCP pneumonia but left AMA presented with acute on chronic CHF exacerbation, acute renal failure and transaminitis. Her CHF has improved. She is being followed by cardiology. She is currently on aldactone, coreg and lisinopril. IV lasix was discontinued today. Transaminitis is improving. She is s/p acetylcystine treatment. Abdominal ultrasound showed hepatosplenomegaly. GI is following and plan is for liver biopsy today. Her BERNICE also has resolved. Nephrology is following and adjusting medications as her blood pressure was low normal yesterday. She was counselled on risks of continued substance abuse. Counselled on medication compliance. She is on methadone maintainence therapy, reduced dose given prolonged QTc few days prior. She is on primaquine and clindamycin. Will discuss with ID as she has worsening leukopenia. Overall prognosis is guarded. Yoel Cortés MD Hospitalist.
[2018-06-09] MEDS: Albuterol-Ipratrop 3 mg / 0.5 (3 ml) UD IH SCH ×3 (02:10→13:24)
[2018-06-09] MEDS: Pantoprazole 40 mg EC Tab PO SCH (05:43)
--- NOTE | 2018-06-09 07:00 | CP.PCM.PN ---
Subjective - Date & Time of Evaluation Date of Evaluation: 06/09/18 Time of Evaluation: 06:20 - Subjective Subjective: no distress.easily awaken,comfortable Reason for consultation and follow up: Cardiac evaluation of shortness of breath , History of AIDS ,non-compliant with medications, COPD, smoker Seen and examined by me and Dr. Veliz Objective - Vital Signs/Intake and Output Vital Signs (last 24 hours): Temp Pulse Resp BP Pulse Ox 98.6 F 79 18 159/62 H 95 06/08/18 06:00 06/08/18 06:00 06/08/18 06:00 06/08/18 09:28 06/08/18 06:00 Intake and Output: 06/08/18 06/09/18 18:59 06:59 Intake Total 660 Balance 660 - Medications Medications: Current Medications Albuterol/Ipratropium (Duoneb 3 Mg/0.5 Mg (3 Ml) Ud) [id number] [facility] Last Admin: 06/09/18 02:10 Dose: 3 ml Carvedilol (Coreg) 3.[address] [facility] Last Admin: 06/08/18 17:17 Dose: 3.125 mg Clindamycin HCl (Cleocin) 600 mg PO 0600,1400,2200 [facility] PRN Reason: Protocol Last Admin: 06/09/18 05:42 Dose: 600 mg Lisinopril (Zestril) [address] [facility] Last Admin: 06/08/18 09:28 Dose: 5 mg Lorazepam (Ativan) 0.5 mg IVP Q6H PRN; Protocol PRN Reason: Anxiety Magnesium Oxide (Mag-Ox) [address] [facility] Stop: 06/09/18 23:59 Last Admin: 06/08/18 17:17 Dose: 400 mg Methadone HCl (Methadone) [address] [facility] Last Admin: 06/05/18 09:43 Dose: 70 mg Pantoprazole Sodium (Protonix Ec Tab) [address] [facility] Last Admin: 06/09/18 05:43 Dose: 40 mg Polyethylene Glycol (Miralax) [address] [facility] Last Admin: 06/08/18 09:24 Dose: 17 gm Primaquine Phosphate (Primaquine) 26.[address] [facility] PRN Reason: Protocol Last Admin: 06/08/18 09:24 Dose: 26.3 mg Spironolactone (Aldactone) 25 mg PO DAILY [facility] Last Admin: 06/08/18 09:24 Dose: 25 mg - Labs Labs: 06/08/18 06:45 06/08/18 06:45 PT 20.8 SECONDS (9.4-12.5) H 06/02/18 18:15 INR 1.80 06/02/18 18:15 APTT 26.7 Seconds (25.1-36.5) 06/02/18 18:15 - Constitutional Appears: No Acute Distress - Eye Exam Eye Exam: Normal appearance - ENT Exam ENT Exam: Mucous Membranes Moist - Respiratory Exam Respiratory Exam: Decreased Breath Sounds, Clear to Ausculation Bilateral, NORMAL BREATHING PATTERN - Cardiovascular Exam Cardiovascular Exam: +S1, +S2 - GI/Abdominal Exam GI & Abdominal Exam: Soft, Normal Bowel Sounds - Extremities Exam Extremities Exam: Normal Capillary Refill - Neurological Exam Neurological Exam: Alert, Awake, Oriented x3 - Psychiatric Exam Psychiatric exam: Normal Affect - Skin Skin Exam: Intact, Warm Assessment and Plan - Assessment and Plan (Free Text) Assessment: A 37 year old female who came in to the ER due to shortness of breath. she was just recently discharged from [facility]. History of AIDS,Hep C, CMV,Brian-Coker virus ,CHF,COPD,asthma, hx of heroin abuse, on Methadone,non compliant with medications. cardiomyopathy-LV systolic dysfunction EF 35%. Exacerbation of congestive heart failure.non compliance of medications.elevated LFT's, GI on consult and work up in progress. Prolonged QT interval, on methadone. methadone dose decreased. Plan: For CT guided liver biopsy today Elevated LFT's Prolonged QT interval Methadone dose decreased Denies shortness of breath Stable cardiac status Stable heart rate and blood pressure On Coreg 3.125 mg BID,Lasix 20 mg daily, Zestril 5 mg daily, Aldactone 25 mg daily ID on consult. continue IV antibiotics Continue current treatment Continue current medications Will follow up Plan and treatment discussed with Dr. Veliz
[2018-06-09 07:23] LABS: BASO # 0.01 K/mm3 (0.0-2.0); BASO % 0.3 % (0.0-3.0); EOS # 0.3 (0.0-0.7); EOS % 8.8 % (1.5-5.0); GRAN # 1.28 (1.4-6.5); GRAN % 41.9 % (50.0-68.0); HEMOGLOBIN 9.5 g/dL (12.0-16.0); LYMPH # 1.2 (1.2-3.4); LYMPH % 38.2 % (22.0-35.0); MEAN CELL VOLUME 80.1 fl (80.0-105.0); MEAN CORPUSCULAR HEMOGLOBIN 24.9 pg (25.0-35.0); MONO # 0.3 (0.1-0.6); MONO % 10.8 % (1.0-6.0); PLATELET COUNT 76 10^3/uL (120.0-450.0); RBC 3.82 10^6/uL (3.5-6.1); RED CELL DISTRIBUTION WIDTH 16.5 % (11.5-14.5); WHITE BLOOD COUNT 3.1 10^3/ul (4.5-11.0)
[2018-06-09 07:36] LABS: ALB/GLOB RATIO 0.7 (1.1-1.8); ALBUMIN 2.7 g/dL (3.0-4.8); ALT/SGPT 334 U/L (7-56); AST/SGOT 101 U/L (14-36); BLOOD UREA NITROGEN 15 mg/dL (7-21); CALCIUM 8.3 mg/dL (8.4-10.5); GFR AFRICAN-AMERICAN > 60; GFR NON-AFRICAN AMERICAN > 60
--- NOTE | 2018-06-09 08:20 | PN ---
Copied To: Isaias Joseph MD Attending MD: Isaias Joseph MD ADDENDUM DATE: 06/08/2018 This is an addendum to progress note performed by Marquita Jalloh APN. The patient is lying in bed comfortable. Her liver enzymes continue to trend downward. Again, I suspect that the elevation is secondary to passive congestion of the liver. She is stable from a GI standpoint. Isaias Joseph MD
[2018-06-09] MEDS: POLYETHYLENE GLYCOL 3350 17 GM/Dose PACKET PO SCH ×2 (09:31→17:11)
[2018-06-09] MEDS: Primaquine 26.3 mg Tab PO SCH (09:32)
[2018-06-09] MEDS: Magnesium Oxide 400 mg Tab UD PO SCH ×2 (09:32→17:11)
--- NOTE | 2018-06-09 10:05 | CARD ---
APPROVED REPORT Date of service: 06/09/2018 EKG Measurement Heart [id number] <Conclusion> Normal sinus rhythm RSR' or QR pattern in V1 suggests right ventricular conduction delay ST & T wave abnormality, consider anterior ischemia Prolonged QT Abnormal ECG
[2018-06-09] MEDS ORDERED: Midazolam 2 MG/2 ML VIAL ONE (11:01)
[2018-06-09] MEDS ORDERED: Sodium Chloride 0.45% 1,000 ML IV SCH (11:45)
--- NOTE | 2018-06-09 12:06 | CP.PCM.PN ---
Subjective - Date & Time of Evaluation Date of Evaluation: 06/09/18 Time of Evaluation: 10:30 - Subjective Subjective: S&E at bedside, chart reviewed, no BM despite dose of lactulose, no N/V or abdominal pain. Patient endorses that she normally doesn't have BM for a few days. Appetite better. For Liver BX today. No reports of overt GI bleeding. Objective - Vital Signs/Intake and Output Vital Signs (last 24 hours): Temp Pulse Resp BP Pulse Ox 98.2 F 76 20 101/72 94 L 06/09/18 06:00 06/09/18 09:32 06/09/18 06:00 06/09/18 09:32 06/09/18 06:00 Intake and Output: 06/09/18 06/09/18 06:59 18:59 Intake Total 660 Balance 660 - Medications Medications: Current Medications Albuterol/Ipratropium (Duoneb 3 Mg/0.5 Mg (3 Ml) Ud) 3 ml IH [id number] [facility] Last Admin: 06/09/18 08:26 Dose: 3 ml Carvedilol (Coreg) 3.125 mg PO BID [facility] Last Admin: 06/09/18 09:32 Dose: 3.125 mg Clindamycin HCl (Cleocin) 600 mg PO 0600,1400,2200 [facility] PRN Reason: Protocol Last Admin: 06/09/18 05:42 Dose: 600 mg Sodium Chloride (Sodium Chloride 0.45%) 1,000 mls @ 80 mls/hr IV .[id number] [facility] Stop: 06/09/18 18:00 Lisinopril (Zestril) 5 mg PO DAILY [facility] Last Admin: 06/09/18 09:32 Dose: 5 mg Lorazepam (Ativan) 0.5 mg IVP Q6H PRN; Protocol PRN Reason: Anxiety Magnesium Oxide (Mag-Ox) 400 mg PO BID [facility] Stop: 06/09/18 23:59 Last Admin: 06/09/18 09:32 Dose: 400 mg Methadone HCl (Methadone) 70 mg PO DAILY [facility] Last Admin: 06/05/18 09:43 Dose: 70 mg Ondansetron HCl (Zofran Inj) 4 mg IVP Q6H PRN PRN Reason: Nausea/Vomiting Pantoprazole Sodium (Protonix Ec Tab) 40 mg PO 0600 [facility] Last Admin: 06/09/18 05:43 Dose: 40 mg Polyethylene Glycol (Miralax) 17 gm PO BID [facility] Last Admin: 06/09/18 09:31 Dose: 17 gm Primaquine Phosphate (Primaquine) 26.3 mg PO DAILY [facility] PRN Reason: Protocol Last Admin: 06/09/18 09:32 Dose: 26.3 mg Spironolactone (Aldactone) 25 mg PO DAILY [facility] Last Admin: 06/09/18 09:33 Dose: 25 mg - Labs Labs: 06/09/18 06:50 06/09/18 06:50 PT 20.8 SECONDS (9.4-12.5) H 06/02/18 18:15 INR 1.80 06/02/18 18:15 APTT 26.7 Seconds (25.1-36.5) 06/02/18 18:15 - Constitutional Appears: No Acute Distress - Head Exam Head Exam: NORMOCEPHALIC - Eye Exam Eye Exam: Normal appearance. absent: Scleral icterus - ENT Exam ENT Exam: Mucous Membranes Moist - Respiratory Exam Respiratory Exam: NORMAL BREATHING PATTERN. absent: Respiratory Distress - Cardiovascular Exam Cardiovascular Exam: +S1, +S2 - GI/Abdominal Exam GI & Abdominal Exam: Soft, Normal Bowel Sounds. absent: Guarding, Tenderness, Rebound - Extremities Exam Extremities Exam: Calf Tenderness. absent: Pedal Edema - Neurological Exam Neurological Exam: Alert, Awake, Oriented x3 - Skin Skin Exam: Dry, Warm Assessment and Plan - Assessment and Plan (Free Text) Assessment: Assessment: Transaminitis, etiology likely 2/2 unknown, suspect PCP, consider as well passive congestion, acute viral hep neg, doubt ischemic, autoimmune neg Heroine Use AIDS H/O Hepatitis C, treated in the past COPD/Asthma Constipation PLAN: continue to trend LFT, continue on downward trend for liver BX today, as per ID recommendation PT/PTT/INR stable on oral abx as per ID continue PPI Methadone on hold on Miralax BID give dulcolax NV Discussed w/ Dr. Joseph covering Dr. Centeno.
[2018-06-09] MEDS ORDERED: Midazolam 2 MG/2 ML VIAL IVP ONE (12:22)
--- NOTE | 2018-06-09 13:51 | CP.PCM.PN ---
Subjective - Date & Time of Evaluation Date of Evaluation: 06/09/18 Time of Evaluation: 13:00 - Subjective Subjective: Subjective: Patient seen and examined at bedside. Resting comfortably in bed. No acute overnight events. Admits to mild discomfort at site of liver biopsy. Denies fever, dizziness, chest pain, nausea, vomiting, diarrhea, constipation, and urinary symptoms. 12-point review of systems negative except as indicated in the HPI Physical Examination: - Constitutional Appears: No Acute Distress, appears older than stated age - Head Exam Head Exam: NORMAL INSPECTION, NORMOCEPHALIC - Eye Exam Eye Exam: EOMI, Normal appearance - ENT Exam ENT Exam: Mucous Membranes Moist, No oral thrush noted, No pharyngitis - Neck Exam Neck exam: Positive for: Normal Inspection - Respiratory Exam Respiratory Exam: normal breathing pattern, rales bilateral lower lobes - Cardiovascular Exam Cardiovascular Exam: normal S1, normal S2 - GI/Abdominal Exam GI & Abdominal Exam: Soft. absent: Rebound - Extremities Exam Extremities exam: Positive for: trace edema bilateral lower extremities Negative for: calf tenderness - Neurological Exam Neurological exam: Awake, alert, responds to verbal stimuli, follows commands, and moves extremities past midline - Skin Skin Exam: Dry, Warm Assessment and Plan: Patient is a 37 y/o F with a past medical history of AIDS (CD4 <20 03/11/18), Hep C, PCP pneumonia, EBV, CMV, HSV, CHF, COPD, asthma, hx of heroin abuse who was admitted for evaluation and treatment of CHF exacerbation along with her chronic medical conditions. The nephrology team was consulted for evaluation and treatment of elevated levels of serum nitrogen products. Acute Kidney Injury - Resolved - BUN and creatinine reviewed, trended, and appreciated- within normal limits - Cardiorenal component noted- continue to maximize intravascular compartment by improving cardiac function with potential subsquent increases in GFR - avoid nephrotoxins - continue lisinopril 5mg PO daily and spironolactone 25mg PO BID - follow up in outpatient clinic Thank you for the opportunity in participating in the care of this patient. Patient case discussed with and plan approved by attending physician, Dr. Uriarte. Objective - Vital Signs/Intake and Output Vital Signs (last 24 hours): Temp Pulse Resp BP Pulse Ox 98.2 F 70 16 100/69 97 06/09/18 12:15 06/09/18 12:15 06/09/18 12:15 06/09/18 12:15 06/09/18 12:15 Intake and Output: 06/09/18 06/09/18 06:59 18:59 Intake Total 660 280 Balance 660 280 - Medications Medications: Current Medications Albuterol/Ipratropium (Duoneb 3 Mg/0.5 Mg (3 Ml) Ud) 3 ml IH [id number] [facility] Last Admin: 06/09/18 13:24 Dose: 3 ml Carvedilol (Coreg) 3.125 mg PO BID [facility] Last Admin: 06/09/18 09:32 Dose: 3.125 mg Clindamycin HCl (Cleocin) 600 mg PO 0600,1400,2200 [facility] PRN Reason: Protocol Last Admin: 06/09/18 05:42 Dose: 600 mg Sodium Chloride (Sodium Chloride 0.45%) 1,000 mls @ 80 mls/hr IV .[id number] [facility] Stop: 06/09/18 18:00 Lisinopril (Zestril) 5 mg PO DAILY [facility] Last Admin: 06/09/18 09:32 Dose: 5 mg Lorazepam (Ativan) 0.5 mg IVP Q6H PRN; Protocol PRN Reason: Anxiety Last Admin: 06/09/18 12:43 Dose: 0.5 mg Magnesium Oxide (Mag-Ox) 400 mg PO BID [facility] Stop: 06/09/18 23:59 Last Admin: 06/09/18 09:32 Dose: 400 mg Ondansetron HCl (Zofran Inj) 4 mg IVP Q6H PRN PRN Reason: Nausea/Vomiting Pantoprazole Sodium (Protonix Ec Tab) 40 mg PO 0600 [facility] Last Admin: 06/09/18 05:43 Dose: 40 mg Polyethylene Glycol (Miralax) 17 gm PO BID [facility] Last Admin: 06/09/18 09:31 Dose: 17 gm Primaquine Phosphate (Primaquine) 26.3 mg PO DAILY [facility] PRN Reason: Protocol Last Admin: 06/09/18 09:32 Dose: 26.3 mg Spironolactone (Aldactone) 25 mg PO DAILY [facility] Last Admin: 06/09/18 09:33 Dose: 25 mg - Labs Labs: 06/09/18 06:50 06/09/18 06:50 PT 20.8 SECONDS (9.4-12.5) H 06/02/18 18:15 INR 1.80 06/02/18 18:15 APTT 26.7 Seconds (25.1-36.5) 06/02/18 18:15
[2018-06-09 15:15] VITALS: BP 91/60; PULSE 85; RESP 18; TEMP 98.3; O2SAT 95
--- NOTE | 2018-06-09 17:43 | CT ---
PROCEDURE: CT guided liver biopsy. HISTORY: HIV positive. History hepatitis C. Abnormal liver function tests. Needs liver biopsy PHYSICIAN(S): Andrea Pierre MD. TECHNIQUE: The relative risks and indications of the procedure were explained to the patient and consent obtained. The patient was placed supine on the CT scanner and preliminary images through the liver obtained. Conscious sedation and monitoring were provided throughout the procedure by a nurse. The visualized portions of the liver are normal on the non contrast images. A subxyphoid approach was selected and the area prepped and draped in the usual sterile fashion. 1% Xylocaine was used to anesthetize the skin and soft tissues. A 17-gauge guiding needle was advanced into the lateral segment of the left lobe of the liver. Its position was confirmed with CT. Using coaxial technique, multiple core biopsies were obtained. The postprocedure images show no evidence of significant hemorrhage. IMPRESSION: 1. CT-guided liver biopsy as described above.
--- NOTE | 2018-06-09 19:46 | CP.PCM.DIS ---
<CaroleAnnettaMoises - Last Filed: 06/10/18 21:23> Provider - Provider Date of Admission: 06/02/18 20:38 Attending physician: Yoel Cortés MD Time Spent in preparation of Discharge (in minutes): 45 Diagnosis - Discharge Diagnosis (1) HIV (human immunodeficiency virus infection) Status: Acute Priority: High (2) Noncompliance with medication regimen Status: Acute Priority: High (3) AIDS Status: Acute Priority: High (4) Transaminitis Status: Chronic Priority: Medium (5) Pneumocystis carinii pneumonia Status: Resolved Priority: Medium (6) COPD (chronic obstructive pulmonary disease) Status: Chronic Priority: Medium (7) Substance abuse Status: Chronic Priority: Medium (8) Abdominal pain Status: Resolved Priority: Medium (9) Abnormal chest xray Status: Resolved Priority: Medium (10) Acute kidney injury Status: Resolved Priority: Medium (11) Congestive heart failure Status: Chronic Priority: Medium (12) Elevated troponin Status: Resolved Priority: Medium (13) Hypoxia Status: Resolved Priority: Medium (14) Methadone dependence Status: Chronic Priority: Medium (15) Nausea Status: Resolved Priority: Medium (16) Anemia Status: Chronic Priority: Medium (17) Hepatitis C Status: Resolved Priority: Medium (18) Asthma Status: Chronic Priority: Medium Hospital Course - Lab Results Lab Results: Micro Results 06/07/18 14:00 Other: Please Indicate Mycobacterial Culture - Preliminary 06/02/18 22:49 Urine Urine Culture - Final 10-50,000 CFU/ML. MULTIPLE SPECIES. PROBABLE CONTAMINATION. Most Recent Lab Values WBC 3.1 10^3/ul (4.5-11.0) L 06/09/18 06:50 RBC 3.82 10^6/uL (3.5-6.1) 06/09/18 06:50 Hgb 9.5 g/dL (12.0-16.0) L 06/09/18 06:50 Hct 30.6 % (36.0-48.0) L 06/09/18 06:50 MCV 80.1 fl (80.0-105.0) 06/09/18 06:50 MCH 24.9 pg (25.0-35.0) L 06/09/18 06:50 MCHC 31.0 g/dl (31.0-37.0) 06/09/18 06:50 RDW 16.5 % (11.5-14.5) H 06/09/18 06:50 Plt Count 76 10^3/uL (120.0-450.0) L 06/09/18 06:50 MPV 10.1 fl (7.0-11.0) 06/07/18 07:20 Gran % 41.9 % (50.0-68.0) L 06/09/18 06:50 Lymph % (Auto) 38.2 % (22.0-35.0) H 06/09/18 06:50 Morton % (Auto) 10.8 % (1.0-6.0) H 06/09/18 06:50 Eos % (Auto) 8.8 % (1.5-5.0) H 06/09/18 06:50 Baso % (Auto) 0.3 % (0.0-3.0) 06/09/18 06:50 Gran # 1.28 (1.4-6.5) L 06/09/18 06:50 Lymph # (Auto) 1.2 (1.2-3.4) 06/09/18 06:50 Morton # (Auto) 0.3 (0.1-0.6) 06/09/18 06:50 Eos # (Auto) 0.3 (0.0-0.7) 06/09/18 06:50 Baso # (Auto) 0.01 K/mm3 (0.0-2.0) 06/09/18 06:50 PT 20.8 SECONDS (9.4-12.5) H 06/02/18 18:15 INR 1.80 06/02/18 18:15 APTT 26.7 Seconds (25.1-36.5) 06/02/18 18:15 pCO2 44 mm/Hg (35-45) 06/03/18 00:45 pO2 66.0 mm/Hg (80-100) L 06/03/18 00:45 HCO3 24.9 mmol/L (21-28) 06/03/18 00:45 ABG pH 7.36 (7.35-7.45) 06/03/18 00:45 ABG Total CO2 26.3 mmol.L (22-28) 06/03/18 00:45 ABG O2 Saturation 93.8 % (95-98) L 06/03/18 00:45 ABG Base Excess -0.8 mmol/L (-2.0-3.0) 06/03/18 00:45 ABG Potassium 3.8 mmol/L (3.6-5.2) 06/03/18 00:45 VBG pH 7.27 (7.32-7.43) L 06/02/18 18:15 VBG pCO2 59.0 (40-60) 06/02/18 18:15 VBG HCO3 27.1 mmol/l (21-28) 06/02/18 18:15 VBG Total CO2 28.9 mmol.L (22-28) H 06/02/18 18:15 VBG O2 Sat (Calc) 61.0 % (40-65) 06/02/18 18:15 VBG Base Excess -1.0 mmol/L (0.0-2.0) L 06/02/18 18:15 VBG Potassium 5.4 mmol/L (3.6-5.2) H 06/02/18 18:15 Sodium 138.0 mmol/L (132-148) 06/03/18 00:45 Chloride 109.0 mmol/L (98-107) H 06/03/18 00:45 Glucose 127 mg/dl (65-105) H 06/03/18 00:45 Lactate 1.3 mmol/L (0.7-2.1) 06/03/18 00:45 FiO2 28.0 % 06/03/18 00:45 Sodium 136 mmol/L (132-148) 06/09/18 06:50 Potassium 4.6 mmol/L (3.6-5.0) 06/09/18 06:50 Chloride 100 mmol/L (98-107) 06/09/18 06:50 Carbon Dioxide 31 mmol/L (21-33) 06/09/18 06:50 Anion Gap 9 (10-20) L 06/09/18 06:50 BUN 15 mg/dL (7-21) 06/09/18 06:50 Creatinine 0.9 mg/dl (0.7-1.2) 06/09/18 06:50 Est GFR ( Amer) > 60 06/09/18 06:50 Est GFR (Non-Af Amer) > 60 06/09/18 06:50 POC Glucose (mg/dL) 83 mg/dL (65-110) 06/07/18 06:47 Random Glucose 89 mg/dL (70-110) 06/09/18 06:50 Calcium 8.3 mg/dL (8.4-10.5) L 06/09/18 06:50 Phosphorus 3.6 mg/dL (2.5-4.5) 06/08/18 06:45 Magnesium 1.5 mg/dL (1.7-2.2) L 06/08/18 06:45 Iron 29 ug/dL (45-180) L 06/05/18 06:30 TIBC 284 ug/dL (265-497) 06/05/18 06:30 % Saturation 10 % (20-55) L 06/05/18 06:30 Ferritin 162.0 ng/mL 06/05/18 06:49 Total Bilirubin 0.5 mg/dL (0.2-1.3) 06/09/18 06:50 AST 101 U/L (14-36) H D 06/09/18 06:50 ALT 334 U/L (7-56) H 06/09/18 06:50 Alkaline Phosphatase 84 U/L (38-126) 06/09/18 06:50 Ammonia 9 umol/L (9-33) 06/03/18 02:55 Lactate Dehydrogenase 4204 U/L (333-699) H 06/03/18 15:30 Total Creatine Kinase 48 U/L (35-230) 06/03/18 15:30 Troponin I 0.22 ng/mL H* 06/03/18 15:30 NT-Pro-B Natriuret Pep 28404 pg/mL (0-450) H 06/02/18 18:15 Total Protein 6.7 g/dL (5.8-8.3) 06/09/18 06:50 Albumin 2.7 g/dL (3.0-4.8) L 06/09/18 06:50 Globulin 4.0 gm/dL 06/09/18 06:50 Albumin/Globulin Ratio 0.7 (1.1-1.8) L 06/09/18 06:50 Procalcitonin 8.43 NG/ML (0.19-0.49) H 06/03/18 02:55 Arterial Blood Potassium 3.8 mmol/L (3.6-5.2) 06/03/18 00:45 Venous Blood Potassium 5.4 mmol/L (3.6-5.2) H 06/02/18 18:15 Urine Color Yellow (YELLOW) 06/02/18 22:49 Urine Appearance Clear (CLEAR) 06/02/18 22:49 Urine pH 6.0 (4.7-8.0) 06/02/18 22:49 Ur Specific [place] 1.025 (1.005-1.035) 06/02/18 22:49 Urine Protein 30 mg/dL (<30 mg/dL) H 06/02/18 22:49 Urine Glucose (UA) Negative mg/dL (NEGATIVE) 06/02/18 22:49 Urine Ketones Negative mg/dL (NEGATIVE) 06/02/18 22:49 Urine Blood Trace-intact (NEGATIVE) H 06/02/18 22:49 Urine Nitrate Negative (NEGATIVE) 06/02/18 22:49 Urine Bilirubin Negative (NEGATIVE) 06/02/18 22:49 Urine Urobilinogen 1.0 E.U./dL (<1 E.U./dL) H 06/02/18 22:49 Ur Leukocyte Esterase Negative Juliano/uL (NEGATIVE) 06/02/18 22:49 Urine RBC 0 - 2 /hpf (0-2) 06/02/18 22:49 Urine WBC 1 - 3 /hpf (0-6) 06/02/18 22:49 Ur Epithelial Cells 3 - 4 /hpf (0-5) 06/02/18 22:49 Hyaline Casts 0 - 2 /hpf 06/02/18 22:49 Ur Random Creatinine 20 mg/dL 06/03/18 19:30 Ur Random Sodium 109 meq/L 06/03/18 08:45 Ur Random Potassium 12.8 meq/L 06/03/18 08:45 Ur Random Urea Nitrogn 186 mg/dL 06/03/18 19:30 Urine Chloride 106 mmol/L (32-290) 06/03/18 11:13 Salicylates < 1 mg/dL (2.0-20.0) L 06/03/18 10:33 Urine Opiates Screen Negative (NEGATIVE) 06/02/18 22:49 Urine Methadone Screen Positive (NEGATIVE) H 06/02/18 22:49 Acetaminophen < 10.0 ug/ml (10.0-20.0) L 06/03/18 10:33 Ur Barbiturates Screen Negative (NEGATIVE) 06/02/18 22:49 Ur Phencyclidine Scrn Negative (NEGATIVE) 06/02/18 22:49 Ur Amphetamines Screen Negative (NEGATIVE) 06/02/18 22:49 U Benzodiazepines Scrn Negative (NEGATIVE) 06/02/18 22:49 U Oth Cocaine Metabols Negative (NEGATIVE) 06/02/18 22:49 U Cannabinoids Screen Negative (NEGATIVE) 06/02/18 22:49 Alcohol, Quantitative < 10 mg/dL (0-10) 06/02/18 18:15 Rheumatoid Factor IgG <5 U (<=6) 06/04/18 07:00 Rheumatoid Factor IgA <5 U (<=6) 06/04/18 07:00 Rheumatoid Factor IgM <5 U (<=6) 06/04/18 07:00 Complement C3 61.0 mg/dL (88.0-165.0) L 06/04/18 07:00 Complement C4 12.8 mg/dL (14.0-44.0) L 06/04/18 07:00 RPR Nonreactive (NONREACTIVE) 06/03/18 10:53 HCV RNA (PCR) IUs/ml <15 not detected IU/mL (Not Detected) 06/03/18 07:50 HCV RNA PCR log IUs/ml <1.18 not detected Log IU/mL (Not Detected) 06/03/18 07:50 TB Test (QFT) Nil 0.07 IU/mL 06/03/18 11:35 TB Test Mitogen - Nil 1.51 IU/mL 06/03/18 11:35 TB Test TB - Nil 0.02 IU/mL 06/03/18 11:35 TB Test (QFT) Negative (Negative) 06/03/18 11:35 - Hospital Course Hospital Course: Ms. Ruiz is a 37 y.o female with PMH of AIDS (CD4 <20 03/11/18), hepatitis C , PCP pneumonia, EBV, CMV, HSV, CHF, COPD, asthma, and history of heroin abuse admitted for PCP pneumonia and multi-organ dysfunction 2/2 medication noncompliance. Patient was treated with duoneb, coreg, clindamycin, primaquine, lactulose, lisinopril, lorazepam, miralax, protonix, and aldactone over the course of her stay. Her regular methadone dose of 140mg was held due to QTc prolongation. After repeat EKG's that showed normal QTc, patient was started back on 70mg of Methadone. Patient tolerated it well. During the course of her hospital stay, patient got an EKG that showed NSR @ 83, QTc: 491, and no signs of ischemia. Chest xray showed right lower lobe infiltrate. 2D Echo showed LVEF 35%. Abdominal ultrasound showed stable hepatosplenomegaly. Infectious disease ( Dr. Granado) was consulted and started Clindamycin 600mg PO Q8 and Primaquine 26.3mg PO for PCP treatment. Gastroenterology (Dr. Centeno/ Dr. Joseph) recommended that patient get a liver biopsy for her chronic transaminitis. IR ( Dr. Andrea Pierre) was consulted for CT guided liver biopsy. Patient instructed to take these medications upon discharge: Mepron, carvedilol, lisinopril, spironolactone, and docusate. Also to continue albuterol and methadone (follow- up with [facility]). She was educated on the correct way to take medications and to follow up with her primary doctor within 3-5 days of discharge, Dr. Carter. She was also instructed to follow up with provider Eugene at [facility] for her HIV medications. She was also instructed to follow up with wet room worker, Dr Umaña within 1-2 weeks of discharge. Patient was instructed to resume activity as tolerated. Patient further informed to return to the ED for worsening or newly concerning symptoms. Patient is now medically stable for discharge. Discharge Exam - Head Exam Head Exam: ATRAUMATIC, NORMOCEPHALIC - Eye Exam Eye Exam: Normal appearance, PERRL - ENT Exam ENT Exam: Mucous Membranes Moist - Respiratory Exam Respiratory Exam: Decreased Breath Sounds, Rhonchi. absent: Accessory Muscle Use, Rales, Wheezes, Respiratory Distress - Cardiovascular Exam Cardiovascular Exam: REGULAR RHYTHM, +S1, +S2. absent: Gallop, Rubs, Systolic Murmur - GI/Abdominal Exam GI & Abdominal Exam: Normal Bowel Sounds, Soft. absent: Tenderness - Extremities Exam Additional comments: no calf tenderness or pedal edema - Neurological Exam Neurological exam: Alert, Oriented x3 - Psychiatric Exam Psychiatric exam: Normal Affect, Normal Mood - Skin Skin Exam: Dry, Intact, Normal Color, Warm Discharge Plan - Discharge Medications Prescriptions: Atovaquone [Mepron] 750 mg PO BID 21 Days packet Carvedilol [Coreg] 3.125 mg PO BID #60 tab Docusate [Colace] 100 mg PO DAILY #30 cap Lisinopril [Zestril] 5 mg PO DAILY #30 tab Spironolactone [Aldactone] 25 mg PO DAILY #30 tab - Follow Up Plan Condition: FAIR Disposition: HOME/ ROUTINE Instructions: Heart Failure, Adult, Pneumonia, Adult (DC) Additional Instructions: You are medically stable for discharge. We have made an appointment for you for Jun 23 at 1pm with provider Eugene at [facility]. You have gone to this clinic before. Please attend this appointment so they may start you on appropriate medications to treat your HIV and prevent future infections. Please give them a call about setting up an earlier appointment as this may be possible. They also provide home visits on Wednesdays - please call and inquire about this. Also please re-connect with your mental health case manager Jovan. The number at [facility] is [phone]. You will be discharged with scripts for the following medications, please take them as instructed: 1. Atovaquone [Mepron] 750mg take 1 tablet with breakfast and 1 tablet with dinner (this is to treat your current lung infection) 2. Carvedilol [Coreg] 3.125mg take 1 tablet with breakfast and 1 tablet with dinner (this is to protect your heart and control your blood pressure) 3. Lisinopril 5mg take 1 tablet at lunch (this is to protect your heart and control your blood pressure) 4. Spironolactone 25mg take 1 tablet with breakfast (this is to protect your heart and control your blood pressure) 5. Docusate [Colace] take 1 tablet daily for constipation (you are prone to constipation due to the methadone) Continue the following medications: 1. Albuterol [Ventolin] take 2 puffs as needed for shortness of breath spaced out every 4 hours 2. Methadone - follow-up with [facility] Your cardiovascular status will need to be monitored going forward. Please follow-up with wet room worker, Dr Umaña, so he may monitor your course. His information has been provided. If you have another wet room worker that you see, please follow-up with him/her. If you are restricted due to insurance issues - please call your insurance provider and have them connect you with a wet room worker that takes your insurance. Please follow-up with your primary medical doctor, Dr Carter, so he may be aware of this admission. Please follow his recommendations. Please take it easy the next couple of weeks. We will attempt to set-up home physical therapy so you can gradually regain your strength. If symptoms return, please go to nearest hospital. Referrals: Macario Carter MD [Staff Provider] - Cara Umaña MD [Staff Provider] - <Yoel Cortés - Last Filed: 06/11/18 07:48> Provider - Provider Date of Admission: 06/02/18 20:38 Attending physician: Yoel Cortés MD Hospital Course - Lab Results Lab Results: Micro Results 06/07/18 14:00 Other: Please Indicate Mycobacterial Culture - Preliminary 06/02/18 22:49 Urine Urine Culture - Final 10-50,000 CFU/ML. MULTIPLE SPECIES. PROBABLE CONTAMINATION. Most Recent Lab Values WBC 3.1 10^3/ul (4.5-11.0) L 06/09/18 06:50 RBC 3.82 10^6/uL (3.5-6.1) 06/09/18 06:50 Hgb 9.5 g/dL (12.0-16.0) L 06/09/18 06:50 Hct 30.6 % (36.0-48.0) L 06/09/18 06:50 MCV 80.1 fl (80.0-105.0) 06/09/18 06:50 MCH 24.9 pg (25.0-35.0) L 06/09/18 06:50 MCHC 31.0 g/dl (31.0-37.0) 06/09/18 06:50 RDW 16.5 % (11.5-14.5) H 06/09/18 06:50 Plt Count 76 10^3/uL (120.0-450.0) L 06/09/18 06:50 MPV 10.1 fl (7.0-11.0) 06/07/18 07:20 Gran % 41.9 % (50.0-68.0) L 06/09/18 06:50 Lymph % (Auto) 38.2 % (22.0-35.0) H 06/09/18 06:50 [place] % (Auto) 10.8 % (1.0-6.0) H 06/09/18 06:50 Eos % (Auto) 8.8 % (1.5-5.0) H 06/09/18 06:50 Baso % (Auto) 0.3 % (0.0-3.0) 06/09/18 06:50 Gran # 1.28 (1.4-6.5) L 06/09/18 06:50 Lymph # (Auto) 1.2 (1.2-3.4) 06/09/18 06:50 Morton # (Auto) 0.3 (0.1-0.6) 06/09/18 06:50 Eos # (Auto) 0.3 (0.0-0.7) 06/09/18 06:50 Baso # (Auto) 0.01 K/mm3 (0.0-2.0) 06/09/18 06:50 PT 20.8 SECONDS (9.4-12.5) H 06/02/18 18:15 INR 1.80 06/02/18 18:15 APTT 26.7 Seconds (25.1-36.5) 06/02/18 18:15 pCO2 44 mm/Hg (35-45) 06/03/18 00:45 pO2 66.0 mm/Hg (80-100) L 06/03/18 00:45 HCO3 24.9 mmol/L (21-28) 06/03/18 00:45 ABG pH 7.36 (7.35-7.45) 06/03/18 00:45 ABG Total CO2 26.3 mmol.L (22-28) 06/03/18 00:45 ABG O2 Saturation 93.8 % (95-98) L 06/03/18 00:45 ABG Base Excess -0.8 mmol/L (-2.0-3.0) 06/03/18 00:45 ABG Potassium 3.8 mmol/L (3.6-5.2) 06/03/18 00:45 VBG pH 7.27 (7.32-7.43) L 06/02/18 18:15 VBG pCO2 59.0 (40-60) 06/02/18 18:15 VBG HCO3 27.1 mmol/l (21-28) 06/02/18 18:15 VBG Total CO2 28.9 mmol.L (22-28) H 06/02/18 18:15 VBG O2 Sat (Calc) 61.0 % (40-65) 06/02/18 18:15 VBG Base Excess -1.0 mmol/L (0.0-2.0) L 06/02/18 18:15 VBG Potassium 5.4 mmol/L (3.6-5.2) H 06/02/18 18:15 Sodium 138.0 mmol/L (132-148) 06/03/18 00:45 Chloride 109.0 mmol/L (98-107) H 06/03/18 00:45 Glucose 127 mg/dl (65-105) H 06/03/18 00:45 Lactate 1.3 mmol/L (0.7-2.1) 06/03/18 00:45 FiO2 28.0 % 06/03/18 00:45 Sodium 136 mmol/L (132-148) 06/09/18 06:50 Potassium 4.6 mmol/L (3.6-5.0) 06/09/18 06:50 Chloride 100 mmol/L (98-107) 06/09/18 06:50 Carbon Dioxide 31 mmol/L (21-33) 06/09/18 06:50 Anion Gap 9 (10-20) L 06/09/18 06:50 BUN 15 mg/dL (7-21) 06/09/18 06:50 Creatinine 0.9 mg/dl (0.7-1.2) 06/09/18 06:50 Est GFR ( Amer) > 60 06/09/18 06:50 Est GFR (Non-Af Amer) > 60 06/09/18 06:50 POC Glucose (mg/dL) 83 mg/dL (65-110) 06/07/18 06:47 Random Glucose 89 mg/dL (70-110) 06/09/18 06:50 Calcium 8.3 mg/dL (8.4-10.5) L 06/09/18 06:50 Phosphorus 3.6 mg/dL (2.5-4.5) 06/08/18 06:45 Magnesium 1.5 mg/dL (1.7-2.2) L 06/08/18 06:45 Iron 29 ug/dL (45-180) L 06/05/18 06:30 TIBC 284 ug/dL (265-497) 06/05/18 06:30 % Saturation 10 % (20-55) L 06/05/18 06:30 Ferritin 162.0 ng/mL 06/05/18 06:49 Total Bilirubin 0.5 mg/dL (0.2-1.3) 06/09/18 06:50 AST 101 U/L (14-36) H D 06/09/18 06:50 ALT 334 U/L (7-56) H 06/09/18 06:50 Alkaline Phosphatase 84 U/L (38-126) 06/09/18 06:50 Ammonia 9 umol/L (9-33) 06/03/18 02:55 Lactate Dehydrogenase 4204 U/L (333-699) H 06/03/18 15:30 Total Creatine Kinase 48 U/L (35-230) 06/03/18 15:30 Troponin I 0.22 ng/mL H* 06/03/18 15:30 NT-Pro-B Natriuret Pep 68219 pg/mL (0-450) H 06/02/18 18:15 Total Protein 6.7 g/dL (5.8-8.3) 06/09/18 06:50 Albumin 2.7 g/dL (3.0-4.8) L 06/09/18 06:50 Globulin 4.0 gm/dL 06/09/18 06:50 Albumin/Globulin Ratio 0.7 (1.1-1.8) L 06/09/18 06:50 Procalcitonin 8.43 NG/ML (0.19-0.49) H 06/03/18 02:55 Arterial Blood Potassium 3.8 mmol/L (3.6-5.2) 06/03/18 00:45 Venous Blood Potassium 5.4 mmol/L (3.6-5.2) H 06/02/18 18:15 Urine Color Yellow (YELLOW) 06/02/18 22:49 Urine Appearance Clear (CLEAR) 06/02/18 22:49 Urine pH 6.0 (4.7-8.0) 06/02/18 22:49 Ur Specific [place] 1.025 (1.005-1.035) 06/02/18 22:49 Urine Protein 30 mg/dL (<30 mg/dL) H 06/02/18 22:49 Urine Glucose (UA) Negative mg/dL (NEGATIVE) 06/02/18 22:49 Urine Ketones Negative mg/dL (NEGATIVE) 06/02/18 22:49 Urine Blood Trace-intact (NEGATIVE) H 06/02/18 22:49 Urine Nitrate Negative (NEGATIVE) 06/02/18 22:49 Urine Bilirubin Negative (NEGATIVE) 06/02/18 22:49 Urine Urobilinogen 1.0 E.U./dL (<1 E.U./dL) H 06/02/18 22:49 Ur Leukocyte Esterase Negative Juliano/uL (NEGATIVE) 06/02/18 22:49 Urine RBC 0 - 2 /hpf (0-2) 06/02/18 22:49 Urine WBC 1 - 3 /hpf (0-6) 06/02/18 22:49 Ur Epithelial Cells 3 - 4 /hpf (0-5) 06/02/18 22:49 Hyaline Casts 0 - 2 /hpf 06/02/18 22:49 Ur Random Creatinine 20 mg/dL 06/03/18 19:30 Ur Random Sodium 109 meq/L 06/03/18 08:45 Ur Random Potassium 12.8 meq/L 06/03/18 08:45 Ur Random Urea Nitrogn 186 mg/dL 06/03/18 19:30 Urine Chloride 106 mmol/L (32-290) 06/03/18 11:13 Salicylates < 1 mg/dL (2.0-20.0) L 06/03/18 10:33 Urine Opiates Screen Negative (NEGATIVE) 06/02/18 22:49 Urine Methadone Screen Positive (NEGATIVE) H 06/02/18 22:49 Acetaminophen < 10.0 ug/ml (10.0-20.0) L 06/03/18 10:33 Ur Barbiturates Screen Negative (NEGATIVE) 06/02/18 22:49 Ur Phencyclidine Scrn Negative (NEGATIVE) 06/02/18 22:49 Ur Amphetamines Screen Negative (NEGATIVE) 06/02/18 22:49 U Benzodiazepines Scrn Negative (NEGATIVE) 06/02/18 22:49 U Oth Cocaine Metabols Negative (NEGATIVE) 06/02/18 22:49 U Cannabinoids Screen Negative (NEGATIVE) 06/02/18 22:49 Alcohol, Quantitative < 10 mg/dL (0-10) 06/02/18 18:15 Cryoglobulin None detected (None Detected) 06/04/18 07:00 Rheumatoid Factor IgG <5 U (<=6) 06/04/18 07:00 Rheumatoid Factor IgA <5 U (<=6) 06/04/18 07:00 Rheumatoid Factor IgM <5 U (<=6) 06/04/18 07:00 Complement C3 61.0 mg/dL (88.0-165.0) L 06/04/18 07:00 Complement C4 12.8 mg/dL (14.0-44.0) L 06/04/18 07:00 RPR Nonreactive (NONREACTIVE) 06/03/18 10:53 HCV RNA (PCR) IUs/ml <15 not detected IU/mL (Not Detected) 06/03/18 07:50 HCV RNA PCR log IUs/ml <1.18 not detected Log IU/mL (Not Detected) 06/03/18 07:50 TB Test (QFT) Nil 0.07 IU/mL 06/03/18 11:35 TB Test Mitogen - Nil 1.51 IU/mL 06/03/18 11:35 TB Test TB - Nil 0.02 IU/mL 06/03/18 11:35 TB Test (QFT) Negative (Negative) 06/03/18 11:35 Attending/Attestation - Attestation I have personally seen and examined this patient.: Yes I have fully participated in the care of the patient.: Yes I have reviewed all pertinent clinical information, including history, physical exam and plan: Yes Notes (Text): 38 year old female with past medical history of HIV/AIDS, hepatitis C, PCP pneumonia, CHF, COPD, noncompliance and substance (heroin) abuse who was recently admitted for PCP pneumonia but left AMA presented with acute on chronic CHF exacerbation, acute renal failure and transaminitis. She was started on diuretic with improvement of symptoms. Cardiology and nephrology were following the patient. BERNICE improved as well. She had significant transaminitis which also improved. She received acetylcysteine treatment. Abdominal ultrasound showed hepatosplenomegaly. She was seen by GI and IR and had liver biopsy. She will be called with the results. She was counselled on risks of continued substance abuse. Counselled on medication compliance. She is on methadone maintainence therapy, reduced dose given prolonged QTc few days prior. She was on primaquine and clindamycin. This was switched to mepron by ID due to leukopenia. Patient is discharged home to follow up with pmd Dr. Carter. Monitor WBC, creatinine and LFTs closely as outpatient. Follow up at [facility] for HIV. Will call with results of liver biopsy once available. Counselled on risks of continued substance abuse. Counselled on medication compliance. Yoel Cortés MD Hospitalist.
--- NOTE | 2018-06-09 21:19 | PN ---
Copied To: Cheikh Chou MD Attending MD: Cheikh Chou MD DATE: 06/09/2018 SUBJECTIVE: The patient is in bed, in no acute distress, nontoxic. PHYSICAL EXAMINATION: VITAL SIGNS: Temperature is 98, blood pressure is 100/60, respiratory rate 18. HEENT: Unremarkable. NECK: Supple. LUNGS: Have decreased breath sounds. HEART: Normal S1 and S2. ABDOMEN: Soft and nontender. LABORATORY DATA: Reveals a white count of 3.1. Chemistries are noted and reviewed. Microbiology is reviewed. Blood cultures are reported to be negative. ASSESSMENT AND PLAN: A 38-year-old female who has end-stage acquired immune deficiency syndrome, who has been treated for Pneumocystis carinii pneumonia currently, multiple admissions with Pneumocystis carinii pneumonia, liver function elevation. The patient is for liver biopsy, maybe able to switch to p.o. Mepron to complete her Pneumocystis carinii pneumonia therapy. Overall prognosis is quite poor. Currently on clindamycin and primaquine. Cheikh Chou MD
== END 2018-06-09 18:36 | disposition home or self-care (01) | DRG 544 ==
LOC: ED 16:09 → ERH 20:38 → 2RSO 23:02 → 5RSO 06-06 16:35
PROVIDERS: ADMIT Internal Medicine; ATTEND Internal Medicine
PROC: 05HY33Z Insertion of Infusion Device into Upper Vein, Percutaneous Approach (ICD-10-PCS; 2018-06-03)
PROC: B54MZZA Ultrasonography of Right Upper Extremity Veins, Guidance (ICD-10-PCS; 2018-06-03)
PROC: 0FB23ZX Excision of Left Lobe Liver, Percutaneous Approach, Diagnostic (ICD-10-PCS; principal; 2018-06-09 12:30)
DX: I13.0 Hypertensive heart and chronic kidney disease with heart failure and stage 1 through stage 4 chronic kidney disease, or unspecified chronic kidney disease (principal); I50.23 Acute on chronic systolic (congestive) heart failure; B20 Human immunodeficiency virus [HIV] disease; B59 Pneumocystosis; A41.9 Sepsis, unspecified organism; N17.9 Acute kidney failure, unspecified; K72.00 Acute and subacute hepatic failure without coma; B18.2 Chronic viral hepatitis C; I42.9 Cardiomyopathy, unspecified; F11.23 Opioid dependence with withdrawal; N18.3 Chronic kidney disease, stage 3 (moderate); B17.9 Acute viral hepatitis, unspecified; E87.3 Alkalosis; E87.6 Hypokalemia; J44.9 Chronic obstructive pulmonary disease, unspecified; R64 Cachexia; H35.30 Unspecified macular degeneration; K21.9 Gastro-esophageal reflux disease without esophagitis; K59.00 Constipation, unspecified; M41.9 Scoliosis, unspecified; G43.909 Migraine, unspecified, not intractable, without status migrainosus; D64.9 Anemia, unspecified; E88.09 Other disorders of plasma-protein metabolism, not elsewhere classified; I45.81 Long QT syndrome; G89.29 Other chronic pain; M54.9 Dorsalgia, unspecified; Z88.3 Allergy status to other anti-infective agents; Z68.1 Body mass index [BMI] 19.9 or less, adult; Z88.0 Allergy status to penicillin; Z88.2 Allergy status to sulfonamides; Z87.891 Personal history of nicotine dependence; Z91.14 Patient's other noncompliance with medication regimen; Z91.19 Patient's noncompliance with other medical treatment and regimen

== ENCOUNTER 2018-06-15 18:16 | Inpatient (IN) | payer OTHER ==
[2018-06-15 18:34] VITALS: BMI 17.8
--- NOTE | 2018-06-15 19:23 | ED PDOC ---
Arrival/HPI - General Chief Complaint: Abnormal Labs Time Seen by Provider: 06/15/18 19:10 Historian: Patient - History of Present Illness Narrative History of Present Illness (Text): 06/15/18 19:22 Patient is a 38 year old female whose past medical history includes HIV, pneumonia, Hep C, COPD, CHF, PCP, and heroin abuse, who was called back to Emergency department due to liver biopsy result. Patient's recent liver biopsy was positive for acid fast bacilli, 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 Patient denies any specific complaints at this time other than generalized weakness. Patient denies any fever, chills, chest pain, dyspnea, abdominal pain, or any other complaints. Context: Other (Patient called back for positive culture) Past Medical History - Provider Review Nursing Documentation Reviewed: Yes - Infectious Disease Hx of Infectious Diseases: None - Tetanus Immunization Tetanus Immunization: Unknown - Cardiac Hx Cardiac Disorders: Yes Hx Congestive Heart Failure: Yes - Pulmonary Hx Chronic Obstructive Pulmonary Disease (COPD): Yes Hx Pneumonia: Yes (PCP pneumoaie) - Neurological Hx Migraine: Yes - HEENT Hx Macular Degeneration: Yes - Renal Hx Renal Disorder: No - Endocrine/Metabolic Hx Endocrine Disorders: No - Hematological/Oncological Hx AIDS: Yes Hx Blood Transfusions: Yes Hx Blood Transfusion Reaction: No Hx Hepatitis C: Yes - Integumentary Hx Dermatological Disorder: Yes - Musculoskeletal/Rheumatological Hx Musculoskeletal Disorders: Yes Hx Back Pain: Yes Other/Comment: SCOLIOSIS - Gastrointestinal Hx Gastrointestinal Disorders: Yes Hx Gastroesophageal Reflux: Yes - Genitourinary/Gynecological Hx Genitourinary Disorders: Yes Hx Urinary Tract Infection: Yes - Psychiatric Hx Psychophysiologic Disorder: Yes Hx Anxiety: Yes Hx Substance Use: No Other/Comment: hx ivdu/cocaine stopped 6 yrs ago on methadone program, smokes 1 ppd has not smoked in 4 days - Past Surgical History Past Surgical History: No Previous - Surgical History Other/Comment: neck surgery - Anesthesia Hx Anesthesia Reactions: No Hx Malignant Hyperthermia: No - Suicidal Assessment Feels Threatened In Home Enviroment: No Family/Social History - Physician Review Nursing Documentation Reviewed: Yes Family/Social History: No Known Family HX Smoking Status: Former Smoker Hx Alcohol Use: No Hx Substance Use: No Substance used: herion, cocaine Hx Substance Use Treatment: No Allergies/Home Meds Allergies/Adverse Reactions: Allergies levofloxacin [From Levaquin] Allergy (Verified 05/19/18 10:22) RASH Penicillins Allergy (Verified 05/19/18 10:22) RASH sulfamethoxazole [From Bactrim] Allergy (Verified 05/19/18 10:22) ANGIOEDEMA trimethoprim [From Bactrim] Allergy (Verified 05/19/18 10:22) ANGIOEDEMA azithromycin [From Zithromax] Adverse Reaction (Verified 05/19/18 10:22) RASH flexeril Adverse Reaction (Uncoded 05/19/18 10:22) RASH Home Medications: Home Meds Medication Instructions Recorded Confirmed Albuterol HFA [Ventolin HFA 90 2 puff INH Q4H PRN 03/11/18 06/15/18 mcg/actuation (8 g)] Review of Systems - Physician Review All systems were reviewed & negative as marked: Yes - Review of Systems Constitutional: Other (Generalized weakness). absent: Fevers, Night Sweats Respiratory: absent: SOB Cardiovascular: absent: Chest Pain Gastrointestinal: absent: Abdominal Pain Physical Exam Vital Signs Reviewed: Yes Vital Signs Temp Pulse Resp BP Pulse Ox 06/15/18 21:15 86 18 101/68 95 06/15/18 20:16 98 H 18 99/65 L 95 06/15/18 18:40 98.0 F 102 H 18 94/61 L 93 L Temperature: Afebrile Blood Pressure: Hypertensive Pulse: Tachycardic Respiratory Rate: Normal Appearance: Positive for: Well-Appearing Pain Distress: None Mental Status: Positive for: Alert and Oriented X 3 - Systems Exam Head: Present: Atraumatic, Normocephalic Pupils: Present: PERRL Extroacular Muscles: Present: EOMI Conjunctiva: Present: Normal Mouth: Present: Moist Mucous Membranes Neck: Present: Normal Range of Motion. No: Meningeal Signs, MIDLINE TENDERNESS , Lymphadenopathy Respiratory/Chest: Present: Clear to Auscultation, Good Air Exchange. No: Respiratory Distress, Accessory Muscle Use Cardiovascular: Present: Regular Rate and Rhythm, Normal S1, S2. No: Murmurs Abdomen: Present: Normal Bowel Sounds. No: Tenderness, Distention, Peritoneal Signs Back: Present: Normal Inspection Upper Extremity: Present: Normal Inspection, Normal ROM. No: Cyanosis, Edema Lower Extremity: Present: Normal Inspection, Normal ROM. No: Edema Neurological: Present: GCS=15, CN II-XII Intact, Speech Normal, Motor Func Grossly Intact, Normal Sensory Function Skin: Present: Warm, Dry, Normal Color. No: Rashes Psychiatric: Present: Alert, Oriented x 3, Normal Insight, Normal Concentration Medical Decision Making ED Course and Treatment: 06/15/18 19:22 Impression: Patient is a 38 year old female who was called back to the Emergency department for readmission due to abnormal liver biopsy result. Differential Diagnosis included but are not limited to: Tuberculosis vs. Immunocompromised state. Plan: -- EKG -- Labs -- Blood work -- Chest X-ray -- Blood, sputum, and urine culture -- Urinalysis -- Reassess and disposition Prior Visits: Notes and results from previous visits were reviewed. Progress Notes: 06/15/18 19:28 Discussed case with , who is aware of and agrees to admit patient under hospitalist service. 06/15/18 19:54 EKG shows NSR at [address] changes. Interpreted by me. 06/15/18 21:[address] Mederos, who is aware and agrees with plan. Accepts pt in to hospitalist service. Pt will be admitted to telemetry for coronary insufficiency, HIV positive pneumonia, positive liver biopsy acid fast bacilli. vice president and portfolio manager notified. - Lab Interpretations Lab Results: 06/15/18 21:30 06/15/18 21:30 Lab Results 06/15/18 21:30: Urine Color Yellow, Urine Appearance Clear, Urine pH 6.0, Ur Specific [place] 1.020, Urine Protein Negative, Urine Glucose (UA) Negative, Urine Ketones Negative, Urine Blood Negative, Urine Nitrate Negative, Urine Bilirubin Negative, Urine Urobilinogen 0.2, Ur Leukocyte Esterase Negative 06/15/18 21:30: Sodium 142, Potassium 5.1 H, Chloride 109 H, Carbon Dioxide 27, Anion Gap 12, BUN 23 H, Creatinine 1.1, Est GFR ( Amer) > 60, Est GFR ( Non-Af Amer) 56, Random Glucose 92, Calcium 8.6, Total Bilirubin 0.3, AST 36 D , ALT 78 H, Alkaline Phosphatase 69, Lactate Dehydrogenase 625, Total Creatine Kinase 49, Troponin I < 0.01 D, Total Protein 7.0, Albumin 2.9 L, Globulin 4.1 , Albumin/Globulin Ratio 0.7 L 06/15/18 21:30: PT 11.6, INR 1.02, APTT 33.4 06/15/18 21:30: WBC 4.2 L D, RBC 3.62, Hgb 9.2 L, Hct 29.5 L, MCV 81.5, MCH 25.4 , MCHC 31.2, RDW 16.8 H, Plt Count 159, MPV 10.4 I have reviewed the lab results: Yes - RAD Interpretation Radiology Orders: 06/15/18 19:23 CHEST PORTABLE [RAD] Stat Embedded Systems Designer: ED Physician - EKG Interpretation Interpreted by ED Physician: Yes Type: 12 lead EKG - Medication Orders Current Medication Orders: Albuterol/Ipratropium (Duoneb 3 Mg/0.5 Mg (3 Ml) Ud) 2.5 ml IH [id number] [facility] Last Admin: 06/16/18 11:04 Dose: 2.5 ml Atovaquone (Mepron) 750 mg PO BID [facility] PRN Reason: Protocol Last Admin: 06/16/18 10:43 Dose: 750 mg Carvedilol (Coreg) 3.125 mg PO BID [facility] Last Admin: 06/16/18 10:47 Dose: 3.125 mg MAR Pulse and Blood Pressure Document 06/16/18 10:47 SG (Rec: 06/16/18 10:47 [id number]) Pulse Pulse Rate (60-90) 110 Blood Pressure Blood Pressure (100/60-150/90) 90/60 Docusate Sodium (Colace) 100 mg PO DAILY [facility] Last Admin: 06/16/18 10:36 Dose: 100 mg Last Bowel Movement Document 06/16/18 10:36 SG (Rec: 06/16/18 10:36 [id number]) Last Bowel Movement Last Bowel Movement 06/15/18 Enoxaparin Sodium (Lovenox) 40 mg SC DAILY [facility] PRN Reason: Protocol Last Admin: 06/16/18 10:36 Dose: 40 mg Subcutaneous Administrations Document 06/16/18 10:36 SG (Rec: 06/16/18 10:36 [id number]) Injection Site MAR Injection Site Right Abdomen Charges for Administration # of Subcutaneous Administrations 1 Ethambutol HCl (Myambutol) 800 mg PO DAILY [facility] PRN Reason: Protocol Isoniazid (Niazid) 300 mg PO DAILY [facility] PRN Reason: Protocol Lisinopril (Zestril) 5 mg PO DAILY [facility] Last Admin: 06/16/18 10:47 Dose: 5 mg MAR Pulse and Blood Pressure Document 06/16/18 10:47 SG (Rec: 06/16/18 10:47 [id number]) Pulse Pulse Rate (60-90) 110 Blood Pressure Blood Pressure (100/60-150/90) 90/60 Methadone HCl (Methadone) 90 mg PO DAILY [facility] Last Admin: 06/16/18 10:41 Dose: 90 mg MAR Pain Assessment Document 06/16/18 10:41 SG (Rec: 06/16/18 10:41 [id number]) Pain Reassessment Is this a pain reassessment? No Sleep Is patient sleeping during reassessment? No Presence of Pain Presence of Pain Yes Pain Scale Used Pain Scale Used Numeric Location Pain Location Body Site Generalized Description Description Constant Intensity of Pain at present 8 Acceptable Level of Pain 3 Pain Behavior Facial Grimacing Aggravating Factors ADL's Changing Position Exercise/Activity Alleviating Factors/Management Medication Techniques Pantoprazole Sodium (Protonix Inj) 40 mg IVP DAILY [facility] Last Admin: 06/16/18 10:46 Dose: 40 mg IVP Administration Document 06/16/18 10:46 (Rec: 06/16/18 10:46 [id number]) Charges for Administration # of IVP Administrations 1 Pyrazinamide (Pyrazinamide) 1,000 mg PO DAILY [facility] PRN Reason: Protocol Pyridoxine HCl (Vitamin B6 50 Mg Tab) 50 mg PO DAILY [facility] Rifampin (Rifampin Cap) 600 mg PO DAILY [facility] PRN Reason: Protocol Spironolactone (Aldactone) 25 mg PO DAILY [facility] Last Admin: 06/16/18 10:36 Dose: 25 mg Discontinued Medications Ethambutol HCl (Myambutol) 400 mg PO DAILY [facility] PRN Reason: Protocol Methimazole (Tapazole) 70 mg PO ONCE ONE Stop: 06/16/18 09:46 Last Admin: 06/16/18 10:46 Dose: 70 mg - Scribe Statement The provider has reviewed the documentation as recorded by the Ericaibmelony Veloz Provider Scribe Attestation: All medical record entries made by the Scribe were at my direction and personally dictated by me. I have reviewed the chart and agree that the record accurately reflects my personal performance of the history, physical exam, medical decision making, and the department course for this patient. I have also personally directed, reviewed, and agree with the discharge instructions and disposition. Disposition/Present on Arrival - Present on Arrival Any Indicators Present on Arrival: No History of DVT/PE: No History of Uncontrolled Diabetes: No Urinary Catheter: No History of Decub. Ulcer: No History Surgical Site Infection Following: None - Disposition Have Diagnosis and Disposition been Completed?: Yes Diagnosis: HIV (human immunodeficiency virus infection), AIDS, Pneumonia, Acid fast bacillus Disposition: HOSPITALIZED Disposition Time: 21:57 Patient Problems: Current Active Problems Problem Status Onset AIDS Acute Acid fast bacillus Acute HIV (human immunodeficiency virus infection) Acute Pneumonia Acute Condition: STABLE
[2018-06-15 21:59] LABS: HEMOGLOBIN 9.2 g/dL (12.0-16.0); MEAN CELL VOLUME 81.5 fl (80.0-105.0); MEAN CORPUSCULAR HEMOGLOBIN 25.4 pg (25.0-35.0); MEAN CORPUSCULAR HGB CONC 31.2 g/dl (31.0-37.0); MEAN PLATELET VOLUME 10.4 fl (7.0-11.0); RBC 3.62 10^6/uL (3.5-6.1); RED CELL DISTRIBUTION WIDTH 16.8 % (11.5-14.5); URINE BILIRUBIN NEGATIVE (NEGATIVE); URINE BLOOD NEGATIVE (NEGATIVE); URINE GLUCOSE (UA) NEGATIVE (NEGATIVE); URINE LEUKOCYTE ESTERASE NEGATIVE Leu/uL (NEGATIVE); URINE PROTEIN NEGATIVE mg/dL (<30 mg/dL); URINE UROBILINOGEN 0.2 E.U./dL (<1 E.U./dL); WHITE BLOOD COUNT 4.2 10^3/ul (4.5-11.0)
[2018-06-15 22:10] LABS: ALB/GLOB RATIO 0.7 (1.1-1.8); ALBUMIN 2.9 g/dL (3.0-4.8); ALT/SGPT 78 U/L (7-56); AST/SGOT 36 U/L (14-36); BLOOD UREA NITROGEN 23 mg/dL (7-21); CALCIUM 8.6 mg/dL (8.4-10.5); GFR NON-AFRICAN AMERICAN 56
[2018-06-15 22:12] LABS: URINE COLOR YELLOW (YELLOW)
[2018-06-15 22:13] LABS: URINE APPEARANCE CLEAR (CLEAR)
[2018-06-15 22:24] LABS: TROPONIN I < 0.01 ng/mL
[2018-06-15 22:31] LABS: INR 1.02; PARTIAL THROMBOPLASTIN TIME 33.4 Seconds (25.1-36.5); PROTHROMBIN TIME 11.6 SECONDS (9.4-12.5)
[2018-06-15] MEDS ORDERED: Albuterol 0.083% Inhal Sol (2.5 mg/3 mL) UD IH PRN (23:15)
--- NOTE | 2018-06-15 23:24 | CP.PCM.HP ---
<Jeison Zhu - Last Filed: 06/16/18 04:21> History of Present Illness - History of Present Illness History of Present Illness: Jeison Zhu, PGY-1, Internal Medicine History and Physical for Dr. Mederos CC: mycobacterium infection 38 year old female with past medical history of HIV with CD4<20 on 03/11/18, EBV , CMV, HSV, COPD, asthma, heroin abuse, CHF with LVEF=35% on 04/11 presents after being diagnosed with mycobacterium by liver biopsy by Dr. Joseph. Patient is well known to us and has been seen by [facility] many times over the past few years. On her most recent visit, patient was diagnosed and treated for Pneumocystis pneumonia and congestive heart failure exacerbation. Today, she presents with chills, shortness of breath, wheezes, and cough with clear sputum for 2 days. Patient reports jaundice, heartburn and weakness in bilateral lower extremities. She denies fever, chest pain, heart palpitations, left arm pain, jaw pain, diaphoresis, abdominal pain, nausea, vomiting, constipation, diarrhea , dysuria, and hematuria. 20-maqah-BTH was negative except for what was listed above. PMH: as stated above PSH: right anterior neck surgery for abscess I and D Allergies: bactrim, levofloaxicin, penicillin, azithromycin, flexeril SHx: IVDA, former smoker of 1 ppd for 20 years. stopped a few months ago. Denies alcohol use. PMD: Dr. Carter Pharmacy: [facility] Insurance: [facility] Review of Systems - Constitutional Constitutional: Chills. absent: Anorexia, Fever - EENT Eyes: absent: Blurred Vision Ears: absent: Decreased Hearing - Cardiovascular Cardiovascular: absent: Chest Pain, Chest Pain with Activity - Respiratory Respiratory: Cough (clear sputum), Dyspnea, Wheezing, Chest Congestion - Gastrointestinal Gastrointestinal: absent: Abdominal Pain, Constipation, Diarrhea, Nausea, Vomiting - Genitourinary Genitourinary: absent: Dysuria, Hematuria - Musculoskeletal Musculoskeletal: Muscle Weakness - Neurological Neurological: Weakness. absent: Numbness, Tingling Past Patient History - Infectious Disease Hx of Infectious Diseases: None - Tetanus Immunizations Tetanus Immunization: Unknown - Past Social History Smoking Status: Former Smoker - CARDIAC Hx Cardiac Disorders: Yes Hx Congestive Heart Failure: Yes - PULMONARY Hx Chronic Obstructive Pulmonary Disease (COPD): Yes Hx Pneumonia: Yes (PCP pneumoaie) - NEUROLOGICAL Hx Migraine: Yes - HEENT Hx Macular Degeneration: Yes - RENAL Hx Chronic Kidney Disease: No - ENDOCRINE/METABOLIC Hx Endocrine Disorders: No - HEMATOLOGICAL/ONCOLOGICAL Hx AIDS: Yes Hx Blood Transfusions: Yes Hx Blood Transfusion Reaction: No Hx Hepatitis C: Yes - INTEGUMENTARY Hx Dermatological Problems: Yes - MUSCULOSKELETAL/RHEUMATOLOGICAL Hx Musculoskeletal Disorders: Yes Hx Back Pain: Yes Other/Comment: SCOLIOSIS - GASTROINTESTINAL Hx Gastrointestinal Disorders: Yes Hx Gastroesophageal Reflux: Yes - GENITOURINARY/GYNECOLOGICAL Hx Genitourinary Disorders: Yes Hx Urinary Tract Infection: Yes - PSYCHIATRIC Hx Psychophysiologic Disorder: Yes Hx Anxiety: Yes Hx Substance Use: No Other/Comment: hx ivdu/cocaine stopped 6 yrs ago on methadone program, smokes 1 ppd has not smoked in 4 days - SURGICAL HISTORY Other/Comment: neck surgery - ANESTHESIA Hx Anesthesia Reactions: No Hx Malignant Hyperthermia: No Meds Allergies/Adverse Reactions: Allergies Allergy/AdvReac Type Severity Reaction Status Date / Time levofloxacin [From Levaquin] Allergy RASH Verified 05/19/18 10:22 Penicillins Allergy RASH Verified 05/19/18 10:22 sulfamethoxazole Allergy ANGIOEDEMA Verified 05/19/18 10:22 [From Bactrim] trimethoprim [From Bactrim] Allergy ANGIOEDEMA Verified 05/19/18 10:22 azithromycin [From Zithromax] AdvReac RASH Verified 05/19/18 10:22 flexeril AdvReac RASH Uncoded 05/19/18 10:22 Physical Exam - Constitutional Appears: Well, Non-toxic, No Acute Distress - Head Exam Head Exam: ATRAUMATIC, NORMOCEPHALIC - Eye Exam Eye Exam: EOMI, PERRL. absent: Scleral icterus - ENT Exam ENT Exam: Mucous Membranes Moist - Respiratory Exam Additional comments: Fine crackles heard at base of lungs - Cardiovascular Exam Cardiovascular Exam: REGULAR RHYTHM, RRR - GI/Abdominal Exam GI & Abdominal Exam: Normal Bowel Sounds, Soft - Extremities Exam Extremities exam: Positive for: full ROM, normal inspection - Neurological Exam Neurological exam: Alert, CN II-XII Intact, Oriented x3 - Skin Skin Exam: Dry, Intact Additional comments: slightly jaundiced Results - Vital Signs Recent Vital Signs: Last Vital Signs Temp 98.0 F 06/15/18 18:40 Pulse 86 06/15/18 21:15 Resp 18 06/15/18 21:15 BP 101/68 06/15/18 21:15 Pulse Ox 95 06/15/18 21:15 - Labs Result Diagrams: 06/16/18 02:30 06/16/18 02:30 Assessment & Plan - Assessment and Plan (Free Text) Assessment: 38 year old female with past medical history of HIV with CD4 of 1 on 03/11/18, EBV, CMV, HSV, COPD, asthma, heroin abuse, CHF with LVEF=35% on 04/11 presents after being diagnosed with mycobacterium by liver biopsy by Dr. Joseph. Plan: Mycobacterium Avium Infection with HIV -Liver biopsy from 06/10 showed mycobacterium infection. -WBC: 4.2 -Patient's last CD4 count in 03/11/18 was <20. Last CD8 was 311. HIV viral load last in 06/2017 was [id number] copies. -Patient does not fulfill SIRS criteria. -Patient has history of positive EBV Ab, Hepatitis C, HSV, parvovirus B19, mycoplasma IgG, -HIV RNA quant, HIV Ab/Ag, quantiferon TB gold, blood culture, sputum culture, urine culture, mycobacterium culture -ALT: 78, AST: 36 -PT/PTT: 11.6/33.4 -Quantiferon gold ordered to evaluate for tuberculosis. -Chest X ray: pulmonary artery congestion, no infiltrates seen. As read by me. -Airborne Isolation precautions -Consider macrolide but patient is allergic to azithromycin. -ID, Dr. Chou, consulted for recommendations. -GI, Dr. Joseph, consulted for recommendations. COPD -extensive smoking history -O2 saturation: 95% on RA -albuterol 2.5 ml IH Q4RESP Left sided systolic CHF -Last echo in 03/2018 showed LVEF: 35% -EKG: normal sinus rhythm, St and T abnormality, Vent rate: 93, SD: 136, QRS: 82 , QTc: 474 -BUN/Cr: 23/1.1 -Troponin:<0.01 -Continue cored 3.125 mg BID, zestril 5 mg daily, spironolactone 25 daily -Heart healthy diet -Cardiology, Dr. Veliz, consulted for recommendations. Constipation -Patient reports normally having one bowel movement every 3 days. -Continue docusate 100 mg daily History of heroin abuse -Continue 70 mg methadone daily Normocytic anemia -Hgb: 9.2. Baseline is 9.3-10.1 -Likely due to anemia of chronic disease. -Continue to monitor. Hyperkalemia -Patient taking low dose of lisinopril and spironolactone. -Potassium: 5.1 -Mild hyperkalemia. Continue to monitor. Hyperchloremia -Mild elevation at 109. -Continue to monitor. DVT prophylaxis: lovenox 40 mg daily GI prophylaxis: protonix 40 mg daily Patient case discussed with Dr. Mederos. - Date & Time Date: 06/16/18 Time: 01:15 <Tyra Mederos - Last Filed: 06/16/18 04:45> Present on Admission - Present on Admission Any Indicators Present on Admission: No History of DVT/PE: No History of Uncontrolled Diabetes: No Urinary Catheter: No Decubitus Ulcer Present: No History Surgical Site Infection Following: None Results - Vital Signs Recent Vital Signs: Last Vital Signs Temp 98.0 F 06/15/18 18:40 Pulse 86 06/15/18 21:15 Resp 18 06/15/18 21:15 BP 101/68 06/15/18 21:15 Pulse Ox 95 06/15/18 21:15 - Labs Result Diagrams: 06/16/18 02:30 06/16/18 02:30 Labs: Laboratory Results - last 24 hr 06/16/18 06/16/18 06/16/18 02:30 02:30 02:30 WBC 3.1 L D RBC 3.66 Hgb 9.1 L Hct 29.8 L MCV 81.4 MCH 24.9 L MCHC 30.5 L RDW 16.7 H Plt Count 124 MPV 9.7 Gran % 42.7 L Lymph % (Auto) 30.9 [place] % (Auto) 12.4 H Eos % (Auto) 13.4 H Baso % (Auto) 0.6 Gran # 1.34 L Lymph # (Auto) 1.0 L [place] # (Auto) 0.4 Eos # (Auto) 0.4 Baso # (Auto) 0.02 PT 11.9 INR 1.04 APTT 33.0 Sodium 143 Potassium 4.8 Chloride 110 H Carbon Dioxide 26 Anion Gap 11 BUN 19 Creatinine 1.0 Est GFR ( Amer) > 60 Est GFR (Non-Af Amer) > 60 Random Glucose 85 Calcium 8.6 Phosphorus 4.5 Magnesium 2.2 Total Bilirubin 0.2 AST 33 ALT 74 H Alkaline Phosphatase 67 Total Protein 6.7 Albumin 2.7 L Globulin 4.1 Albumin/Globulin Ratio 0.7 L Attending/Attestation - Attestation I have personally seen and examined this patient.: Yes I have fully participated in the care of the patient.: Yes I have reviewed all pertinent clinical information: Yes Notes (Text): 06/16/18 04:41 Patient was seen when she was in room # 10 in the ER. I inserted # 22 size angiocaths in right forearm and hand. Medical record was reviewed. Agree with history, physical examination, assessment and plan. 38 year old woman was told to go to ER because liver biopsy was positive for acid fast bacilli. 3.1.>9.5/30.6<76. [id number](05/19/18) AST/ALT 101/334 up 06/03/18 Troponin 0.22- 06/03/18 [id number] 06/03/18 Mg low in past. CRP high in past. Has PMH Of: Allergic to Levaquin, PCN, Sulfa, Zithromax,Flexaril. End stage acquired immune deficiency syndrome. Pneumocystis Carinii PNA ARCELIA AIDS Documented TB. COPD Staph sepsis. Hepatitis C CHF Asthma Heroine abuse EBV CMV HSV Former smoker Migraine Macular degeneration PRBC transfusion Scoliosis Renal insufficiency Anemia. Thrombocytopenia
[2018-06-16 02:50] LABS: BASO # 0.02 K/mm3 (0.0-2.0); BASO % 0.6 % (0.0-3.0); EOS # 0.4 (0.0-0.7); EOS % 13.4 % (1.5-5.0); GRAN # 1.34 (1.4-6.5); GRAN % 42.7 % (50.0-68.0); HEMOGLOBIN 9.1 g/dL (12.0-16.0); LYMPH % 30.9 % (22.0-35.0); MEAN CELL VOLUME 81.4 fl (80.0-105.0); MEAN CORPUSCULAR HEMOGLOBIN 24.9 pg (25.0-35.0); MEAN CORPUSCULAR HGB CONC 30.5 g/dl (31.0-37.0); MEAN PLATELET VOLUME 9.7 fl (7.0-11.0); MONO # 0.4 (0.1-0.6); MONO % 12.4 % (1.0-6.0); RBC 3.66 10^6/uL (3.5-6.1); RED CELL DISTRIBUTION WIDTH 16.7 % (11.5-14.5); WHITE BLOOD COUNT 3.1 10^3/ul (4.5-11.0)
[2018-06-16 02:54] LABS: INR 1.04; PROTHROMBIN TIME 11.9 SECONDS (9.4-12.5)
[2018-06-16] MEDS: Albuterol-Ipratrop 3 mg / 0.5 (3 ml) UD IH SCH ×6 (03:01→23:03)
[2018-06-16 03:11] LABS: ALB/GLOB RATIO 0.7 (1.1-1.8); ALBUMIN 2.7 g/dL (3.0-4.8); ALT/SGPT 74 U/L (7-56); AST/SGOT 33 U/L (14-36); BLOOD UREA NITROGEN 19 mg/dL (7-21); CALCIUM 8.6 mg/dL (8.4-10.5); GFR NON-AFRICAN AMERICAN > 60
--- NOTE | 2018-06-16 08:57 | CP.PCM.CON ---
History of Present Illness - History of Present Illness History of Present Illness: awake, alert, no distress,concern about methadone dose Reason for consultation: Cardiac evaluation of shortness of breath, recently treated for Pneumocystis pneumonia and acute chronic systolic congestive heart failure exacerbation. History of HIV. 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 She is known to service for multiple admissions. Recent admission was on 05/18/18 for Pneumocystis pneumonia and exacerbation of congestive heart failure. She went home without completing the antibiotic therapy. On 06/02/18, she was readmitted for the same diagnosis and for non compliance of treatment regimen. Liver biopsy was then done due to markedly elevated LFT's. History of HIV with CD4<20 EBV, CMV, Hepatitis C ,HSV, COPD, asthma, heroin abuse, on Methadone, former smoker, congestive heart failure Seen and examined by me and Dr. Umaña Past Patient History - Infectious Disease Hx of Infectious Diseases: None - Tetanus Immunizations Tetanus Immunization: Unknown - Past Social History Smoking Status: Former Smoker - CARDIAC Hx Cardiac Disorders: Yes Hx Congestive Heart Failure: Yes - PULMONARY Hx Chronic Obstructive Pulmonary Disease (COPD): Yes Hx Pneumonia: Yes (PCP pneumoaie) - NEUROLOGICAL Hx Migraine: Yes - HEENT Hx Macular Degeneration: Yes - RENAL Hx Chronic Kidney Disease: No - ENDOCRINE/METABOLIC Hx Endocrine Disorders: No - HEMATOLOGICAL/ONCOLOGICAL Hx AIDS: Yes Hx Blood Transfusions: Yes Hx Blood Transfusion Reaction: No Hx Hepatitis C: Yes - INTEGUMENTARY Hx Dermatological Problems: Yes - MUSCULOSKELETAL/RHEUMATOLOGICAL Hx Musculoskeletal Disorders: Yes Hx Back Pain: Yes Other/Comment: SCOLIOSIS - GASTROINTESTINAL Hx Gastrointestinal Disorders: Yes Hx Gastroesophageal Reflux: Yes - GENITOURINARY/GYNECOLOGICAL Hx Genitourinary Disorders: Yes Hx Urinary Tract Infection: Yes - PSYCHIATRIC Hx Psychophysiologic Disorder: Yes Hx Anxiety: Yes Hx Substance Use: No Other/Comment: hx ivdu/cocaine stopped 6 yrs ago on methadone program, smokes 1 ppd has not smoked in 4 days - SURGICAL HISTORY Other/Comment: neck surgery - ANESTHESIA Hx Anesthesia Reactions: No Hx Malignant Hyperthermia: No Meds Allergies/Adverse Reactions: Allergies Allergy/AdvReac Type Severity Reaction Status Date / Time levofloxacin [From Levaquin] Allergy RASH Verified 05/19/18 10:22 Penicillins Allergy RASH Verified 05/19/18 10:22 sulfamethoxazole Allergy ANGIOEDEMA Verified 05/19/18 10:22 [From Bactrim] trimethoprim [From Bactrim] Allergy ANGIOEDEMA Verified 05/19/18 10:22 azithromycin [From Zithromax] AdvReac RASH Verified 05/19/18 10:22 flexeril AdvReac RASH Uncoded 05/19/18 10:22 - Medications Medications: Current Medications Albuterol/Ipratropium (Duoneb 3 Mg/0.5 Mg (3 Ml) Ud) 2.5 ml [id number] [facility] Last Admin: 06/16/18 08:00 Dose: 2.5 ml Atovaquone (Mepron) 750 mg PO BID [facility] PRN Reason: Protocol Carvedilol (Coreg) 3.125 mg PO BID [facility] Docusate Sodium (Colace) 100 mg PO DAILY [facility] Enoxaparin Sodium (Lovenox) 40 mg SC DAILY [facility] PRN Reason: Protocol Lisinopril (Zestril) 5 mg PO DAILY [facility] Methadone HCl (Methadone) 70 mg PO DAILY [facility] Pantoprazole Sodium (Protonix Inj) 40 mg IVP DAILY [facility] Spironolactone (Aldactone) 25 mg PO DAILY [facility] Results - Vital Signs Recent Vital Signs: Last Vital Signs Temp 98.1 F 06/16/18 06:00 Pulse 71 06/16/18 06:00 Resp 18 06/16/18 06:00 BP 90/60 L 06/16/18 06:00 Pulse Ox 93 L 06/16/18 06:00 - Labs Result Diagrams: 06/16/18 02:30 06/16/18 02:30 Labs: Laboratory Results - last 24 hr 06/16/18 06/16/18 06/16/18 02:30 02:30 02:30 WBC 3.1 L D RBC 3.66 Hgb 9.1 L Hct 29.8 L MCV 81.4 MCH 24.9 L MCHC 30.5 L RDW 16.7 H Plt Count 124 MPV 9.7 Gran % 42.7 L Lymph % (Auto) 30.9 [place] % (Auto) 12.4 H Eos % (Auto) 13.4 H Baso % (Auto) 0.6 Gran # 1.34 L Lymph # (Auto) 1.0 L [place] # (Auto) 0.4 Eos # (Auto) 0.4 Baso # (Auto) 0.02 PT 11.9 INR 1.04 APTT 33.0 Sodium 143 Potassium 4.8 Chloride 110 H Carbon Dioxide 26 Anion Gap 11 BUN 19 Creatinine 1.0 Est GFR ( Amer) > 60 Est GFR (Non-Af Amer) > 60 Random Glucose 85 Calcium 8.6 Phosphorus 4.5 Magnesium 2.2 Total Bilirubin 0.2 AST 33 ALT 74 H Alkaline Phosphatase 67 Total Protein 6.7 Albumin 2.7 L Globulin 4.1 Albumin/Globulin Ratio 0.7 L Assessment & Plan - Assessment and Plan (Free Text) Assessment: A 38 year old female who was sent to the ER due to recent liver biopsy result of positive for acid fast bacilli, 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 She is known to service for multiple admissions. Recent admission was on 05/18/18 for Pneumocystis pneumonia and exacerbation of congestive heart failure. She went home without completing the antibiotic therapy. On 06/02/18, she was readmitted for the same diagnosis and for non compliance of treatment regimen. Liver biopsy was then done at that time due to markedly elevated LFT's. History of HIV with CD4<20 EBV, CMV, Hepatitis C ,HSV, COPD, asthma, heroin abuse, on Methadone, former smoker, congestive heart failure. Methadone dose was decrease from previous admission due to prolonged QT interval. Review of previous cardiac work up: 04/14/18- ECHO- Moderately impaired systolic function, LVEF 35% Trace AR/MR Mild TR RVSP 40 mmHg Trace pericardial effusion &- Lung Scan- Negative for pulmonary embolism, likely COPD Plan: On droplet isolation Denies shortness of breath, Concern about Methadone dose. 12 lead EKG to assess QT interval Continue Methadone will adjust dose if prolong QT interval On Coreg 3.125 mg BID,Lovenox 40 mg daily,Zestril 5 mg daily, Aldactone 25 mg daily Stable heart rate and blood pressure GI and ID on consult Continue current medications Continue current treatment Will follow up Plan and treatment discussed with Dr. Umaña Thank you Dr. Medina for the opportunity of taking care of Ms. Veronica Ruiz - Date & Time Date: 06/16/18 Time: 06:15
--- NOTE | 2018-06-16 09:23 | RAD ---
Date of service: 06/15/2018 HISTORY: medical clearance COMPARISON: 06/02/2018 FINDINGS: LUNGS: There is moderate peribronchial thickening right greater than left consistent with bronchitis. There is no focal consolidation PLEURA: No significant pleural effusion identified, no pneumothorax apparent. CARDIOVASCULAR: Normal. OSSEOUS STRUCTURES: No significant abnormalities. VISUALIZED UPPER ABDOMEN: Normal. OTHER FINDINGS: None. IMPRESSION: There is moderate peribronchial thickening right greater than left consistent with bronchitis. There is no focal consolidation
[2018-06-16] MEDS: Enoxaparin 40 mg Syringe SC SCH (10:36)
[2018-06-16] MEDS: Atovaquone 750 mg/5 ml Susp UD PO SCH ×2 (10:43→17:39)
[2018-06-16] MEDS ORDERED: RIFAMPIN IVPB SCH (11:15)
[2018-06-16] MEDS ORDERED: SODIUM CHLORIDE 0.9% IVPB SCH (11:15)
--- NOTE | 2018-06-16 12:38 | CP.PCM.PN ---
<Moises Lam - Last Filed: 06/16/18 12:34> Subjective - Date & Time of Evaluation Date of Evaluation: 06/16/18 Time of Evaluation: 12:34 - Subjective Subjective: Moises Lam D.O PGY-1, Internal Medicine progress note for Dr. Cortés Patient was examined at bedside, no acute overnight events. Patient states she no longer feels short of breath and her cough is improving. Patient is asking for her maintenance methadone. Denies fevers, chills, chest pain, abdominal pain , N/V/D. Objective - Vital Signs/Intake and Output Vital Signs (last 24 hours): Temp Pulse Resp BP Pulse Ox 98.1 F 110 H 18 90/60 L 93 L 06/16/18 06:00 06/16/18 10:47 06/16/18 06:00 06/16/18 10:47 06/16/18 06:00 Intake and Output: 06/16/18 06/16/18 06:59 18:59 Intake Total 420 Output Total 1 Balance 419 - Medications Medications: Current Medications Albuterol/Ipratropium (Duoneb 3 Mg/0.5 Mg (3 Ml) Ud) 2.5 ml IH [id number] [facility] Last Admin: 06/16/18 11:04 Dose: 2.5 ml Atovaquone (Mepron) 750 mg PO BID [facility] PRN Reason: Protocol Last Admin: 06/16/18 10:43 Dose: 750 mg Carvedilol (Coreg) 3.125 mg PO BID [facility] Last Admin: 06/16/18 10:47 Dose: 3.125 mg Docusate Sodium (Colace) 100 mg PO DAILY [facility] Last Admin: 06/16/18 10:36 Dose: 100 mg Enoxaparin Sodium (Lovenox) 40 mg SC DAILY [facility] PRN Reason: Protocol Last Admin: 06/16/18 10:36 Dose: 40 mg Ethambutol HCl (Myambutol) 800 mg PO DAILY [facility] PRN Reason: Protocol Last Admin: 06/16/18 12:11 Dose: 800 mg Isoniazid (Niazid) 300 mg PO DAILY [facility] PRN Reason: Protocol Last Admin: 06/16/18 12:08 Dose: 300 mg Lisinopril (Zestril) 5 mg PO DAILY [facility] Last Admin: 06/16/18 10:47 Dose: 5 mg Methadone HCl (Methadone) 90 mg PO DAILY [facility] Last Admin: 06/16/18 10:41 Dose: 90 mg Pantoprazole Sodium (Protonix Inj) 40 mg IVP DAILY [facility] Last Admin: 06/16/18 10:46 Dose: 40 mg Pyrazinamide (Pyrazinamide) 1,000 mg PO DAILY [facility] PRN Reason: Protocol Last Admin: 06/16/18 12:08 Dose: 1,000 mg Pyridoxine HCl (Vitamin B6 50 Mg Tab) 50 mg PO DAILY [facility] Last Admin: 06/16/18 12:08 Dose: 50 mg Rifampin (Rifampin Cap) 600 mg PO DAILY [facility] PRN Reason: Protocol Last Admin: 06/16/18 12:12 Dose: 600 mg Spironolactone (Aldactone) 25 mg PO DAILY [facility] Last Admin: 06/16/18 10:36 Dose: 25 mg - Labs Labs: 06/16/18 02:30 06/16/18 02:30 PT 11.9 SECONDS (9.4-12.5) 06/16/18 02:30 INR 1.04 06/16/18 02:30 APTT 33.0 Seconds (25.1-36.5) 06/16/18 02:30 - Constitutional Appears: No Acute Distress - Head Exam Head Exam: ATRAUMATIC, NORMAL INSPECTION - Eye Exam Eye Exam: Normal appearance - ENT Exam ENT Exam: Mucous Membranes Moist - Respiratory Exam Respiratory Exam: absent: Rales, Wheezes, Respiratory Distress Additional comments: Crackles heard on right lung - Cardiovascular Exam Cardiovascular Exam: REGULAR RHYTHM, +S1, +S2. absent: Gallop, Rubs, Murmur - GI/Abdominal Exam GI & Abdominal Exam: Soft, Normal Bowel Sounds. absent: Tenderness - Extremities Exam Extremities Exam: absent: Calf Tenderness Additional comments: trace edema on bilateral lower extremities - Neurological Exam Neurological Exam: Alert, Awake, Oriented x3 - Psychiatric Exam Psychiatric exam: Normal Affect, Normal Mood - Skin Skin Exam: Dry, Intact, Normal Color, Warm Assessment and Plan - Assessment and Plan (Free Text) Assessment: Ms. Ruiz is a 37 y.o female with PMH of AIDS (CD4 <20 03/11/18), hepatitis C , PCP pneumonia, EBV, CMV, HSV, CHF, COPD, asthma, and history of heroin abuse who is currently on treatment for PCP pneumonia admitted for a positive acid fast bacilli on liver biopsy. Plan: History of AIDS - Liver biopsy came back positive for Acid Fast Bacilli - Started on Rifampin 600mg PO QD, Isoniazid 300mg PO QD, Pyrazinamide 1000mg QD , Pyridoxine 50mg PO, Ethambutol 800mg PO QD - C/w Mepron 750 PO BID for PCP treatment - Patient on airborne precautions - HIV viral load, Ag/Ab- pending - Quantiferon, Mycobacterium BLD culture, AFB sputum culture- pending - Last CD4 <20 (03/11/2018). Pt noncompliant with antiretrovirals - Hx of Hep C, CMV, EBV, PCP pneumonia - HCV: treated with Harvoni, CMV IgG Ab >10 (05/20/18), EBV EA IgG 62.90 (05/20/18 ) - RPR (06/03): non reactive - Blood, urine, sputum cultures: pending - ID Consulted, Dr. 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 Veliz History of COPD - C/w Duoneb Q4H benjamin - O2 NC PRN for SOB, maintain SpO2 >90% History of substance abuse - On Methadone 90mg at home- dose confirmed with Addy - Methadone 90mg given today DVT ppx: Lovenox GI PPX: Protonix Patient case reviewed with and plan approved by attending physician, Dr. Cortés <Yoel Cortés - Last Filed: 06/16/18 14:24> Objective - Vital Signs/Intake and Output Vital Signs (last 24 hours): Temp Pulse Resp BP Pulse Ox 98.8 F 102 H 18 95/63 L 93 L 06/16/18 12:00 06/16/18 12:00 06/16/18 12:00 06/16/18 12:00 06/16/18 06:00 Intake and Output: 06/16/18 06/16/18 06:59 18:59 Intake Total 420 Output Total 1 Balance 419 - Medications Medications: Current Medications Albuterol/Ipratropium (Duoneb 3 Mg/0.5 Mg (3 Ml) Ud) 2.5 ml IH [id number] [facility] Last Admin: 06/16/18 11:04 Dose: 2.5 ml Atovaquone (Mepron) 750 mg PO BID [facility] PRN Reason: Protocol Last Admin: 06/16/18 10:43 Dose: 750 mg Carvedilol (Coreg) 3.125 mg PO BID [facility] Last Admin: 06/16/18 10:47 Dose: 3.125 mg Docusate Sodium (Colace) 100 mg PO DAILY [facility] Last Admin: 06/16/18 10:36 Dose: 100 mg Enoxaparin Sodium (Lovenox) 40 mg SC DAILY [facility] PRN Reason: Protocol Last Admin: 06/16/18 10:36 Dose: 40 mg Ethambutol HCl (Myambutol) 800 mg PO DAILY [facility] PRN Reason: Protocol Last Admin: 06/16/18 12:11 Dose: 800 mg Isoniazid (Niazid) 300 mg PO DAILY [facility] PRN Reason: Protocol Last Admin: 06/16/18 12:08 Dose: 300 mg Lisinopril (Zestril) 5 mg PO DAILY [facility] Last Admin: 06/16/18 10:47 Dose: 5 mg Methadone HCl (Methadone) 90 mg PO DAILY [facility] Last Admin: 06/16/18 10:41 Dose: 90 mg Pantoprazole Sodium (Protonix Inj) 40 mg IVP DAILY [facility] Last Admin: 06/16/18 10:46 Dose: 40 mg Pyrazinamide (Pyrazinamide) 1,000 mg PO DAILY [facility] PRN Reason: Protocol Last Admin: 06/16/18 12:08 Dose: 1,000 mg Pyridoxine HCl (Vitamin B6 50 Mg Tab) 50 mg PO DAILY [facility] Last Admin: 06/16/18 12:08 Dose: 50 mg Rifampin (Rifampin Cap) 600 mg PO DAILY [facility] PRN Reason: Protocol Last Admin: 06/16/18 12:12 Dose: 600 mg Spironolactone (Aldactone) 25 mg PO DAILY [facility] Last Admin: 06/16/18 10:36 Dose: 25 mg - Labs Labs: 06/16/18 02:30 06/16/18 02:30 PT 11.9 SECONDS (9.4-12.5) 06/16/18 02:30 INR 1.04 06/16/18 02:30 APTT 33.0 Seconds (25.1-36.5) 06/16/18 02:30 Attending/Attestation - Attestation I have personally seen and examined this patient.: Yes I have fully participated in the care of the patient.: Yes I have reviewed all pertinent clinical information, including history, physical exam and plan: Yes Notes (Text): 06/16/18 14:08 37 year old female with past medical history of HIV/AIDs, PCP pneumonia, hepatitis C, CHF, COPD and history of substance abuse on methadone who was recently treated for PCP pneumonia. She had a recent liver biopsy which came back positive for acid fast bacilli, r/o ARCELIA. ID evaluation was appreciated. Will follow up with ID recommendations regarding treatment as patient has multiple allergies. Patient is on airborne isolation precaution. Pending quantiferon, AFB and final liver biopsy. Cardiology is following for history of CHF. She is on methadone for maintainence therapy for history of substance abuse. Yoel Cortés MD Hospitalist.
--- NOTE | 2018-06-16 12:53 | CP.PCM.CON ---
<Judy Fitzpatrick - Last Filed: 06/16/18 14:15> History of Present Illness - History of Present Illness History of Present Illness: PGY-3 infectious diseae consult ote for Dr. Granado' service 37 yo femlae with PMH of end stage AIDS (CD4 <20 03/11/18), Hep C, CHF, COPD, Asthma, Hx of IV heroin abuse, non compliance presents with after liver biopsy from previous admission was positive for mycobacterium. Patient has no complaints, she states that since discharge that she has felt well with occasional fatigue and cough. On previous admission she was patient was treated for Pneumocystis pneumonia and congestive heart failure exacerbation. She states that she was compliant with her medications including mepron for PCP. She denies fever, chest pain, heart palpitations, left arm pain, jaw pain, diaphoresis, abdominal pain, nausea, vomiting, constipation, diarrhea, dysuria, and hematuria. PMH: HIV (CD4 <20 03/11/18), EBV, CMV, HSV, COPD, Asthma, History of IV heroin abuse (last use 5 yo, currently on methadone) PSH: Right anterior neck surgery abscess removal Social History: former IV drug abuse, former smoker (quit 1 week ago, previously smoked 12ppd), Denies alcohol Allergies: Bactrim-anaphylaxis, levofloxacin, penicillin, azithromycin, flexeril - rash Review of Systems - Review of Systems All systems: reviewed and no additional remarkable complaints except Past Patient History - Infectious Disease Hx of Infectious Diseases: None - Tetanus Immunizations Tetanus Immunization: Unknown - Past Social History Smoking Status: Former Smoker - CARDIAC Hx Cardiac Disorders: Yes Hx Congestive Heart Failure: Yes - PULMONARY Hx Chronic Obstructive Pulmonary Disease (COPD): Yes Hx Pneumonia: Yes (PCP pneumoaie) - NEUROLOGICAL Hx Migraine: Yes - HEENT Hx Macular Degeneration: Yes - RENAL Hx Chronic Kidney Disease: No - ENDOCRINE/METABOLIC Hx Endocrine Disorders: No - HEMATOLOGICAL/ONCOLOGICAL Hx AIDS: Yes Hx Blood Transfusions: Yes Hx Blood Transfusion Reaction: No Hx Hepatitis C: Yes - INTEGUMENTARY Hx Dermatological Problems: Yes - MUSCULOSKELETAL/RHEUMATOLOGICAL Hx Musculoskeletal Disorders: Yes Hx Back Pain: Yes Other/Comment: SCOLIOSIS - GASTROINTESTINAL Hx Gastrointestinal Disorders: Yes Hx Gastroesophageal Reflux: Yes - GENITOURINARY/GYNECOLOGICAL Hx Genitourinary Disorders: Yes Hx Urinary Tract Infection: Yes - PSYCHIATRIC Hx Psychophysiologic Disorder: Yes Hx Anxiety: Yes Hx Substance Use: No Other/Comment: hx ivdu/cocaine stopped 6 yrs ago on methadone program, smokes 1 ppd has not smoked in 4 days - SURGICAL HISTORY Other/Comment: neck surgery - ANESTHESIA Hx Anesthesia Reactions: No Hx Malignant Hyperthermia: No Meds Allergies/Adverse Reactions: Allergies Allergy/AdvReac Type Severity Reaction Status Date / Time levofloxacin [From Levaquin] Allergy RASH Verified 05/19/18 10:22 Penicillins Allergy RASH Verified 05/19/18 10:22 sulfamethoxazole Allergy ANGIOEDEMA Verified 05/19/18 10:22 [From Bactrim] trimethoprim [From Bactrim] Allergy ANGIOEDEMA Verified 05/19/18 10:22 azithromycin [From Zithromax] AdvReac RASH Verified 05/19/18 10:22 flexeril AdvReac RASH Uncoded 05/19/18 10:22 - Medications Medications: Current Medications Albuterol/Ipratropium (Duoneb 3 Mg/0.5 Mg (3 Ml) Ud) 2.5 ml IH [id number] [facility] Last Admin: 06/16/18 11:04 Dose: 2.5 ml Atovaquone (Mepron) 750 mg PO BID [facility] PRN Reason: Protocol Last Admin: 06/16/18 10:43 Dose: 750 mg Carvedilol (Coreg) 3.125 mg PO BID [facility] Last Admin: 06/16/18 10:47 Dose: 3.125 mg Docusate Sodium (Colace) 100 mg PO DAILY [facility] Last Admin: 06/16/18 10:36 Dose: 100 mg Enoxaparin Sodium (Lovenox) 40 mg SC DAILY [facility] PRN Reason: Protocol Last Admin: 06/16/18 10:36 Dose: 40 mg Ethambutol HCl (Myambutol) 800 mg PO DAILY [facility] PRN Reason: Protocol Last Admin: 06/16/18 12:11 Dose: 800 mg Isoniazid (Niazid) 300 mg PO DAILY [facility] PRN Reason: Protocol Last Admin: 06/16/18 12:08 Dose: 300 mg Lisinopril (Zestril) 5 mg PO DAILY [facility] Last Admin: 06/16/18 10:47 Dose: 5 mg Methadone HCl (Methadone) 90 mg PO DAILY [facility] Last Admin: 06/16/18 10:41 Dose: 90 mg Pantoprazole Sodium (Protonix Inj) 40 mg IVP DAILY [facility] Last Admin: 06/16/18 10:46 Dose: 40 mg Pyrazinamide (Pyrazinamide) 1,000 mg PO DAILY [facility] PRN Reason: Protocol Last Admin: 06/16/18 12:08 Dose: 1,000 mg Pyridoxine HCl (Vitamin B6 50 Mg Tab) 50 mg PO DAILY [facility] Last Admin: 06/16/18 12:08 Dose: 50 mg Rifampin (Rifampin Cap) 600 mg PO DAILY [facility] PRN Reason: Protocol Last Admin: 06/16/18 12:12 Dose: 600 mg Spironolactone (Aldactone) 25 mg PO DAILY [facility] Last Admin: 06/16/18 10:36 Dose: 25 mg Physical Exam - Constitutional Appears: No Acute Distress, Cachectic - Head Exam Head Exam: ATRAUMATIC, NORMOCEPHALIC - Eye Exam Eye Exam: EOMI, Normal appearance - ENT Exam ENT Exam: Mucous Membranes Moist - Respiratory Exam Respiratory Exam: Clear to Auscultation Bilateral, NORMAL BREATHING PATTERN. absent: Rhonchi, Wheezes, Respiratory Distress - Cardiovascular Exam Cardiovascular Exam: REGULAR RHYTHM, +S1, +S2. absent: Bradycardia, Tachycardia , Diastolic murmur, Systolic Murmur - GI/Abdominal Exam GI & Abdominal Exam: Normal Bowel Sounds, Soft. absent: Distended, Firm, Guarding, Tenderness - Extremities Exam Extremities exam: Positive for: normal inspection. Negative for: pedal edema, tenderness - Neurological Exam Neurological exam: Alert, Oriented x3 - Skin Skin Exam: Dry, Intact, Normal Color, Warm Results - Vital Signs Recent Vital Signs: Last Vital Signs Temp 98.1 F 06/16/18 06:00 Pulse 110 H 06/16/18 10:47 Resp 18 06/16/18 06:00 BP 90/60 L 06/16/18 10:47 Pulse Ox 93 L 06/16/18 06:00 - Labs Result Diagrams: 06/16/18 02:30 06/16/18 02:30 Labs: Laboratory Results - last 24 hr 06/16/18 06/16/18 06/16/18 02:30 02:30 02:30 WBC 3.1 L D RBC 3.66 Hgb 9.1 L Hct 29.8 L MCV 81.4 MCH 24.9 L MCHC 30.5 L RDW 16.7 H Plt Count 124 MPV 9.7 Gran % 42.7 L Lymph % (Auto) 30.9 Benson % (Auto) 12.4 H Eos % (Auto) 13.4 H Baso % (Auto) 0.6 Gran # 1.34 L Lymph # (Auto) 1.0 L Benson # (Auto) 0.4 Eos # (Auto) 0.4 Baso # (Auto) 0.02 PT 11.9 INR 1.04 APTT 33.0 Sodium 143 Potassium 4.8 Chloride 110 H Carbon Dioxide 26 Anion Gap 11 BUN 19 Creatinine 1.0 Est GFR ( Amer) > 60 Est GFR (Non-Af Amer) > 60 Random Glucose 85 Calcium 8.6 Phosphorus 4.5 Magnesium 2.2 Total Bilirubin 0.2 AST 33 ALT 74 H Alkaline Phosphatase 67 Total Protein 6.7 Albumin 2.7 L Globulin 4.1 Albumin/Globulin Ratio 0.7 L Assessment & Plan - Assessment and Plan (Free Text) Assessment: 37 yo female with PMH of end stage AIDS (CD4 <20 03/11/18), Hep C, CHF, COPD, Asthma, Hx of IV heroin abuse, noncompliance with liver biopsy from previous admission positive for mycobacterium. Final results fo which mycobacterium is pending with both liver biopsy as well as blood culture. Will start isoniazid, ripfampin, ethambutol and pyrazinamide for TB coverage as well as ARCELIA coverage. Coverage for ARCELIA includes macrolides however patient is allergic. Continue mepron for PCP. Follow up AFB cultures as well as liver biopsy case reviewed and discussed with Dr. Granado <Manpreet Granado - Last Filed: 06/16/18 17:03> Meds - Medications Medications: Current Medications Albuterol/Ipratropium (Duoneb 3 Mg/0.5 Mg (3 Ml) Ud) 2.5 ml IH [id number] [facility] Last Admin: 06/16/18 16:03 Dose: 2.5 ml Atovaquone (Mepron) 750 mg PO BID [facility] PRN Reason: Protocol Last Admin: 06/16/18 10:43 Dose: 750 mg Carvedilol (Coreg) 3.125 mg PO BID [facility] Last Admin: 06/16/18 10:47 Dose: 3.125 mg Clonazepam (Klonopin) 0.5 mg PO BID PRN; Protocol PRN Reason: Anxiety Last Admin: 06/16/18 16:12 Dose: 0.5 mg Docusate Sodium (Colace) 100 mg PO DAILY [facility] Last Admin: 06/16/18 10:36 Dose: 100 mg Enoxaparin Sodium (Lovenox) 40 mg SC DAILY [facility] PRN Reason: Protocol Last Admin: 06/16/18 10:36 Dose: 40 mg Ethambutol HCl (Myambutol) 800 mg PO DAILY [facility] PRN Reason: Protocol Last Admin: 06/16/18 12:11 Dose: 800 mg Isoniazid (Niazid) 300 mg PO DAILY [facility] PRN Reason: Protocol Last Admin: 06/16/18 12:08 Dose: 300 mg Lisinopril (Zestril) 5 mg PO DAILY [facility] Last Admin: 06/16/18 10:47 Dose: 5 mg Methadone HCl (Methadone) 90 mg PO DAILY [facility] Last Admin: 06/16/18 10:41 Dose: 90 mg Pantoprazole Sodium (Protonix Inj) 40 mg IVP DAILY [facility] Last Admin: 06/16/18 10:46 Dose: 40 mg Pyrazinamide (Pyrazinamide) 1,000 mg PO DAILY [facility] PRN Reason: Protocol Last Admin: 06/16/18 12:08 Dose: 1,000 mg Pyridoxine HCl (Vitamin B6 50 Mg Tab) 50 mg PO DAILY [facility] Last Admin: 06/16/18 12:08 Dose: 50 mg Rifampin (Rifampin Cap) 600 mg PO DAILY [facility] PRN Reason: Protocol Last Admin: 06/16/18 12:12 Dose: 600 mg Spironolactone (Aldactone) 25 mg PO DAILY [facility] Last Admin: 06/16/18 10:36 Dose: 25 mg Results - Vital Signs Recent Vital Signs: Last Vital Signs Temp 98.8 F 06/16/18 12:00 Pulse 103 H 06/16/18 14:00 Resp 18 06/16/18 12:00 BP 95/63 L 06/16/18 12:00 Pulse Ox 93 L 06/16/18 06:00 - Labs Result Diagrams: 06/16/18 02:30 06/16/18 02:30 Labs: Laboratory Results - last 24 hr 06/16/18 06/16/18 06/16/18 02:30 02:30 02:30 WBC 3.1 L D RBC 3.66 Hgb 9.1 L Hct 29.8 L MCV 81.4 MCH 24.9 L MCHC 30.5 L RDW 16.7 H Plt Count 124 MPV 9.7 Gran % 42.7 L Lymph % (Auto) 30.9 Benson % (Auto) 12.4 H Eos % (Auto) 13.4 H Baso % (Auto) 0.6 Gran # 1.34 L Lymph # (Auto) 1.0 L Benson # (Auto) 0.4 Eos # (Auto) 0.4 Baso # (Auto) 0.02 PT 11.9 INR 1.04 APTT 33.0 Sodium 143 Potassium 4.8 Chloride 110 H Carbon Dioxide 26 Anion Gap 11 BUN 19 Creatinine 1.0 Est GFR ( Amer) > 60 Est GFR (Non-Af Amer) > 60 Random Glucose 85 Calcium 8.6 Phosphorus 4.5 Magnesium 2.2 Total Bilirubin 0.2 AST 33 ALT 74 H Alkaline Phosphatase 67 Total Protein 6.7 Albumin 2.7 L Globulin 4.1 Albumin/Globulin Ratio 0.7 L Assessment & Plan - Assessment and Plan (Free Text) Assessment: Infectious Diseases Attending Physician Addendum Patient seen and examined, discussed with nurses medical assistants phlebotomists. I have reviewed the pertinent clinical information for the patient, including history of present illness, medical, personal and social histories, lab results and imaging findings. I agree with the above findings, assessment and plan. In addition, we have started the patient on Rifampin, INH with Vitamin B6, PZA, EMB for patient with mycobacterial liver disease (ARCELIA or TB) in this AIDS patient. Will continue PJP prophylaxis with Mepron. Reviewed pathology showing AFB staining organisms in liver biopsy sample - follow up final identification. Patient allergic to Zithromax and we are not able to use macrolides. Will monitor clinically. Will need to start ART soon.
--- NOTE | 2018-06-16 14:14 | CON ---
Copied To: Isaias Joseph MD Attending MD: Isaias Joseph MD DATE: 06/16/2018 REASON FOR CONSULT: I have been asked to see this 38-year-old female HIV-positive, noncompliant with her HIV medications for one year, was just recently discharged from [facility] with a history of congestive heart failure, Pneumocystis pneumonia, swelling of her lower extremities who was seen by GI just recently for elevated liver enzymes which was felt to be secondary to passive congestion of the liver. Her liver enzymes slowly trended down to normal. A liver biopsy was ordered by Infectious Disease and biopsy results just recently came back positive for AFB organisms on the liver biopsy. She did have centrolobular congestion, all consistent with elevated liver enzymes secondary to hepatic congestion. She currently denies any abdominal pain, nausea, vomiting. PAST MEDICAL HISTORY: Notable for AIDS. She has a history of 80 EBV, CMV, HSV infection as well as Pneumocystis carinii infection. She also has a history of COPD, asthma, CHF with an ejection fraction of 35%. PAST SURGICAL HISTORY: Notable for neck surgery for I&D of neck abscess. SOCIAL HISTORY: She is an intravenous drug user. She is a former cigarette smoker. She denies alcohol use. FAMILY HISTORY: Noncontributory. REVIEW OF SYSTEMS: The 14-point review of systems is negative for any abdominal pain. PHYSICAL EXAMINATION: GENERAL: Thin female lying in bed in no acute distress. VITAL SIGNS: Reveal temperature of 98.1, blood pressure 90/60, heart rate of 71. HEENT: Reveal sclerae to be white. Conjunctivae pale. NECK: Supple. CHEST: Lungs were clear. HEART: Exam reveals regular rate and rhythm. ABDOMEN: Soft, nontender. No mass. EXTREMITIES: Show no edema. DATA: Laboratory data reveal white blood cell count 3.1, hemoglobin 9.1. Chemistries reveal AST 33, ALT 74, alkaline phosphatase is 67. IMPRESSION: This is a 38-year-old female with acquired immunodeficiency syndrome, noncompliant with her antiviral medications who was found to have Acid-Fast Bacilli positive organisms on liver biopsy. RECOMMENDATIONS: 1. We will leave up to Infectious Disease treatment for Mycobacterium involving the liver, it is probably ARCELIA. 2. Continue HIV treatment. 3. Follow liver enzymes as anti-TB medications can cause hepatic toxicity. Isaias Joseph MD [facility] # [id number]
--- NOTE | 2018-06-16 19:28 | CARD ---
APPROVED REPORT Date of service: 06/15/2018 EKG Measurement Heart [id number] <Conclusion> Normal sinus rhythm ST & T wave abnormality, consider anterolateral ischemia Prolonged QT Abnormal ECG
[2018-06-17] MEDS: Pantoprazole 40 mg EC Tab PO SCH (05:04)
[2018-06-17] MEDS: Albuterol-Ipratrop 3 mg / 0.5 (3 ml) UD IH SCH ×6 (05:21→23:41)
--- NOTE | 2018-06-17 07:04 | CP.PCM.PN ---
Subjective - Date & Time of Evaluation Date of Evaluation: 06/17/18 Time of Evaluation: 06:50 - Subjective Subjective: awake, alert, no distress,no complaints Reason for consultation and follow up : Cardiac evaluation of shortness of breath, recently treated for Pneumocystis pneumonia and acute chronic systolic congestive heart failure exacerbation. History of HIV. Seen and examined by me and Dr. Umaña Objective - Vital Signs/Intake and Output Vital Signs (last 24 hours): Temp Pulse Resp BP Pulse Ox 98.4 F 90 18 101/66 93 L 06/17/18 06:00 06/17/18 06:00 06/17/18 06:00 06/17/18 06:00 06/17/18 06:00 Intake and Output: 06/17/18 06/17/18 06:59 18:59 Intake Total 0 Balance 0 - Medications Medications: Current Medications Albuterol/Ipratropium (Duoneb 3 Mg/0.5 Mg (3 Ml) Ud) 2.5 ml IH [id number] [facility] Last Admin: 06/17/18 05:21 Dose: 2.5 ml Atovaquone (Mepron) 750 mg PO BID [facility] PRN Reason: Protocol Last Admin: 06/16/18 17:39 Dose: 750 mg Carvedilol (Coreg) 3.125 mg PO BID [facility] Last Admin: 06/16/18 17:40 Dose: Not Given Clonazepam (Klonopin) 0.5 mg PO BID PRN; Protocol PRN Reason: Anxiety Last Admin: 06/16/18 16:12 Dose: 0.5 mg Docusate Sodium (Colace) 100 mg PO DAILY [facility] Last Admin: 06/16/18 10:36 Dose: 100 mg Enoxaparin Sodium (Lovenox) 40 mg SC DAILY [facility] PRN Reason: Protocol Last Admin: 06/16/18 10:36 Dose: 40 mg Ethambutol HCl (Myambutol) 800 mg PO DAILY [facility] PRN Reason: Protocol Last Admin: 06/16/18 12:11 Dose: 800 mg Isoniazid (Niazid) 300 mg PO DAILY [facility] PRN Reason: Protocol Last Admin: 06/16/18 12:08 Dose: 300 mg Lisinopril (Zestril) 5 mg PO DAILY [facility] Last Admin: 06/16/18 10:47 Dose: 5 mg Methadone HCl (Methadone) 90 mg PO DAILY [facility] Last Admin: 06/16/18 10:41 Dose: 90 mg Pantoprazole Sodium (Protonix Ec Tab) 40 mg PO 0600 [facility] Last Admin: 06/17/18 05:04 Dose: 40 mg Pyrazinamide (Pyrazinamide) 1,000 mg PO DAILY [facility] PRN Reason: Protocol Last Admin: 06/16/18 12:08 Dose: 1,000 mg Pyridoxine HCl (Vitamin B6 50 Mg Tab) 50 mg PO DAILY [facility] Last Admin: 06/16/18 12:08 Dose: 50 mg Rifampin (Rifampin Cap) 600 mg PO DAILY [facility] PRN Reason: Protocol Last Admin: 06/16/18 12:12 Dose: 600 mg Spironolactone (Aldactone) 25 mg PO DAILY [facility] Last Admin: 06/16/18 10:36 Dose: 25 mg - Labs Labs: 06/16/18 02:30 06/16/18 02:30 PT 11.9 SECONDS (9.4-12.5) 06/16/18 02:30 INR 1.04 06/16/18 02:30 APTT 33.0 Seconds (25.1-36.5) 06/16/18 02:30 - Constitutional Appears: No Acute Distress - Eye Exam Eye Exam: Normal appearance - ENT Exam ENT Exam: Mucous Membranes Moist - Respiratory Exam Respiratory Exam: Decreased Breath Sounds, NORMAL BREATHING PATTERN - Cardiovascular Exam Cardiovascular Exam: +S1, +S2 - GI/Abdominal Exam GI & Abdominal Exam: Soft, Normal Bowel Sounds - Extremities Exam Extremities Exam: Normal Capillary Refill - Neurological Exam Neurological Exam: Alert, Awake, Oriented x3 - Psychiatric Exam Psychiatric exam: Normal Affect - Skin Skin Exam: Intact, Warm Assessment and Plan - Assessment and Plan (Free Text) Assessment: A 38 year old female who was sent to the ER due to recent liver biopsy result of positive for acid fast bacilli, 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 She is known to service for multiple admissions. Recent admission was on 05/18/18 for Pneumocystis pneumonia and exacerbation of congestive heart failure. She went home without completing the antibiotic therapy. On 06/02/18, she was readmitted for the same diagnosis and for non compliance of treatment regimen. Liver biopsy was then done at that time due to markedly elevated LFT's. History of HIV with CD4<20 EBV, CMV, Hepatitis C ,HSV, COPD, asthma, heroin abuse, on Methadone, former smoker, congestive heart failure. Methadone dose was decrease from previous admission due to prolonged QT interval.04/14/18- ECHO- Moderately impaired systolic function, LVEF 35%, Trace AR/MR, Mild TR RVSP 40 mmHg,Trace pericardial effusion.06/19/18- Lung Scan- Negative for pulmonary embolism, likely COPD Plan: Denies shortness of breath, Methadone dose restarted, Telemetry NSR, will keep current dose 12 lead EKG prolonged QT interval, asymptomatic monitor closely for arrythmias On Coreg 3.125 mg BID,Lovenox 40 mg daily,Zestril 5 mg daily, Aldactone 25 mg daily Stable heart rate and blood pressure GI and ID on consult On respiratory isolation Continue current medications Continue current treatment Will follow up Plan and treatment discussed with Dr. Umaña
[2018-06-17 07:06] LABS: BASO # 0.01 K/mm3 (0.0-2.0); BASO % 0.4 % (0.0-3.0); GRAN # 1.37 (1.4-6.5); GRAN % 51.1 % (50.0-68.0); HEMOGLOBIN 8.6 g/dL (12.0-16.0); LYMPH % 35.8 % (22.0-35.0); MEAN CELL VOLUME 81.2 fl (80.0-105.0); MEAN CORPUSCULAR HEMOGLOBIN 24.9 pg (25.0-35.0); MEAN CORPUSCULAR HGB CONC 30.6 g/dl (31.0-37.0); MEAN PLATELET VOLUME 9.7 fl (7.0-11.0); MONO # 0.3 (0.1-0.6); MONO % 12.7 % (1.0-6.0); RBC 3.46 10^6/uL (3.5-6.1); RED CELL DISTRIBUTION WIDTH 16.7 % (11.5-14.5)
[2018-06-17 07:26] LABS: WHITE BLOOD COUNT 2.7 10^3/ul (4.5-11.0)
[2018-06-17 07:45] LABS: FREE T4 1.32 ng/dL (0.78-2.19)
[2018-06-17 07:51] LABS: ALB/GLOB RATIO 0.7 (1.1-1.8); ALBUMIN 2.6 g/dL (3.0-4.8); ALT/SGPT 58 U/L (7-56); AST/SGOT 32 U/L (14-36); BLOOD UREA NITROGEN 17 mg/dL (7-21); CALCIUM 8.5 mg/dL (8.4-10.5); GFR NON-AFRICAN AMERICAN > 60
[2018-06-17] MEDS: Enoxaparin 40 mg Syringe SC SCH (09:53)
[2018-06-17] MEDS: Atovaquone 750 mg/5 ml Susp UD PO SCH ×2 (10:05→17:54)
--- NOTE | 2018-06-17 12:41 | CP.PCM.PN ---
<Moises Lam - Last Filed: 06/17/18 12:36> Subjective - Date & Time of Evaluation Date of Evaluation: 06/17/18 Time of Evaluation: 12:36 - Subjective Subjective: Moises Lam D.O PGY-1, Internal Medicine progress note for Dr. Cortés Patient was examined at bedside, no acute overnight events. Patient has no complaints at this time. Denies fevers, chills, shortness of breath, chest pain , abdominal pain, N/V/D. Objective - Vital Signs/Intake and Output Vital Signs (last 24 hours): Temp Pulse Resp BP Pulse Ox 98.4 F 104 H 18 99/63 L 93 L 06/17/18 06:00 06/17/18 10:30 06/17/18 06:00 06/17/18 10:30 06/17/18 06:00 Intake and Output: 06/17/18 06/17/18 06:59 18:59 Intake Total 0 Balance 0 - Medications Medications: Current Medications Albuterol/Ipratropium (Duoneb 3 Mg/0.5 Mg (3 Ml) Ud) 2.5 ml IH [id number] [facility] Last Admin: 06/17/18 11:15 Dose: 2.5 ml Atovaquone (Mepron) 750 mg PO BID [facility] PRN Reason: Protocol Last Admin: 06/17/18 10:05 Dose: 750 mg Carvedilol (Coreg) 3.125 mg PO BID [facility] Last Admin: 06/17/18 09:52 Dose: 3.125 mg Clonazepam (Klonopin) 0.5 mg PO BID PRN; Protocol PRN Reason: Anxiety Last Admin: 06/16/18 16:12 Dose: 0.5 mg Docusate Sodium (Colace) 100 mg PO DAILY [facility] Last Admin: 06/17/18 09:51 Dose: 100 mg Enoxaparin Sodium (Lovenox) 40 mg SC DAILY [facility] PRN Reason: Protocol Last Admin: 06/17/18 09:53 Dose: 40 mg Ethambutol HCl (Myambutol) 800 mg PO DAILY [facility] PRN Reason: Protocol Last Admin: 06/17/18 09:51 Dose: 800 mg Isoniazid (Niazid) 300 mg PO DAILY [facility] PRN Reason: Protocol Last Admin: 06/17/18 10:05 Dose: 300 mg Lisinopril (Zestril) 5 mg PO DAILY [facility] Last Admin: 06/17/18 10:30 Dose: Not Given Methadone HCl (Methadone) 90 mg PO DAILY [facility] Last Admin: 06/17/18 10:09 Dose: 90 mg Pantoprazole Sodium (Protonix Ec Tab) 40 mg PO 0600 [facility] Last Admin: 06/17/18 05:04 Dose: 40 mg Pyrazinamide (Pyrazinamide) 1,000 mg PO DAILY [facility] PRN Reason: Protocol Last Admin: 06/17/18 10:05 Dose: 1,000 mg Pyridoxine HCl (Vitamin B6 50 Mg Tab) 50 mg PO DAILY [facility] Last Admin: 06/17/18 11:23 Dose: 50 mg Rifampin (Rifampin Cap) 600 mg PO DAILY [facility] PRN Reason: Protocol Last Admin: 06/17/18 09:50 Dose: 600 mg Spironolactone (Aldactone) 25 mg PO DAILY [facility] Last Admin: 06/17/18 09:51 Dose: 25 mg - Labs Labs: 06/17/18 06:30 06/17/18 06:30 PT 11.9 SECONDS (9.4-12.5) 06/16/18 02:30 INR 1.04 06/16/18 02:30 APTT 33.0 Seconds (25.1-36.5) 06/16/18 02:30 - Additional Findings Additional findings: - Constitutional Appears: No Acute Distress - Head Exam Head Exam: ATRAUMATIC, NORMAL INSPECTION - Eye Exam Eye Exam: Normal appearance - ENT Exam ENT Exam: Mucous Membranes Moist - Respiratory Exam Respiratory Exam: absent: Rales, Wheezes, Respiratory Distress Additional comments: Some rhonchi heard on right lung - Cardiovascular Exam Cardiovascular Exam: REGULAR RHYTHM, +S1, +S2. absent: Gallop, Rubs, Murmur - GI/Abdominal Exam GI & Abdominal Exam: Soft, Normal Bowel Sounds. absent: Tenderness - Extremities Exam Extremities Exam: absent: Calf Tenderness, pedal edema - Neurological Exam Neurological Exam: Alert, Awake, Oriented x3 - Psychiatric Exam Psychiatric exam: Normal Affect, Normal Mood - Skin Skin Exam: Dry, Intact, Normal Color, Warm Assessment and Plan - Assessment and Plan (Free Text) Assessment: Ms. Ruiz is a 37 y.o female with PMH of AIDS (CD4 <20 03/11/18), hepatitis C , PCP pneumonia, EBV, CMV, HSV, CHF, COPD, asthma, and history of heroin abuse who is currently on treatment for PCP pneumonia admitted for a positive acid fast bacilli on liver biopsy. 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 Pt noncompliant with antiretrovirals - Hx of Hep C, CMV, EBV, PCP pneumonia - HCV: treated with Harvoni, CMV IgG Ab >10 (05/20/18), EBV EA IgG 62.90 (05/20/18 ) - RPR (06/03): non reactive - Blood, urine, sputum cultures: pending - ID Consulted, Dr. 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 Veliz History of COPD - C/w Duoneb Q4H benjamin - O2 NC PRN for SOB, maintain SpO2 >90% History of substance abuse - On Methadone 90mg at home- dose confirmed with [facility] - C/w Methadone 90mg DVT ppx: Lovenox GI PPX: Protonix Patient case reviewed with and plan approved by attending physician, Dr. Cortés <Yoel Cortés - Last Filed: 06/17/18 14:54> Objective - Vital Signs/Intake and Output Vital Signs (last 24 hours): Temp Pulse Resp BP Pulse Ox 98.4 F 104 H 18 99/63 L 93 L 06/17/18 06:00 06/17/18 10:30 06/17/18 06:00 06/17/18 10:30 06/17/18 06:00 Intake and Output: 06/17/18 06/17/18 06:59 18:59 Intake Total 0 Balance 0 - Medications Medications: Current Medications Albuterol/Ipratropium (Duoneb 3 Mg/0.5 Mg (3 Ml) Ud) 2.5 ml IH [id number] [facility] Last Admin: 06/17/18 11:15 Dose: 2.5 ml Atovaquone (Mepron) 750 mg PO BID [facility] PRN Reason: Protocol Last Admin: 06/17/18 10:05 Dose: 750 mg Carvedilol (Coreg) 3.125 mg PO BID [facility] Last Admin: 06/17/18 09:52 Dose: 3.125 mg Clonazepam (Klonopin) 0.5 mg PO BID PRN; Protocol PRN Reason: Anxiety Last Admin: 06/16/18 16:12 Dose: 0.5 mg Docusate Sodium (Colace) 100 mg PO DAILY [facility] Last Admin: 06/17/18 09:51 Dose: 100 mg Enoxaparin Sodium (Lovenox) 40 mg SC DAILY [facility] PRN Reason: Protocol Last Admin: 06/17/18 09:53 Dose: 40 mg Ethambutol HCl (Myambutol) 800 mg PO DAILY [facility] PRN Reason: Protocol Last Admin: 06/17/18 09:51 Dose: 800 mg Isoniazid (Niazid) 300 mg PO DAILY [facility] PRN Reason: Protocol Last Admin: 06/17/18 10:05 Dose: 300 mg Lisinopril (Zestril) 5 mg PO DAILY [facility] Last Admin: 06/17/18 10:30 Dose: Not Given Methadone HCl (Methadone) 90 mg PO DAILY [facility] Last Admin: 06/17/18 10:09 Dose: 90 mg Pantoprazole Sodium (Protonix Ec Tab) 40 mg PO 0600 [facility] Last Admin: 06/17/18 05:04 Dose: 40 mg Pyrazinamide (Pyrazinamide) 1,000 mg PO DAILY [facility] PRN Reason: Protocol Last Admin: 06/17/18 10:05 Dose: 1,000 mg Pyridoxine HCl (Vitamin B6 50 Mg Tab) 50 mg PO DAILY [facility] Last Admin: 06/17/18 11:23 Dose: 50 mg Rifampin (Rifampin Cap) 600 mg PO DAILY [facility] PRN Reason: Protocol Last Admin: 06/17/18 09:50 Dose: 600 mg Spironolactone (Aldactone) 25 mg PO DAILY [facility] Last Admin: 06/17/18 09:51 Dose: 25 mg - Labs Labs: 06/17/18 06:30 06/17/18 06:30 PT 11.9 SECONDS (9.4-12.5) 06/16/18 02:30 INR 1.04 06/16/18 02:30 APTT 33.0 Seconds (25.1-36.5) 06/16/18 02:30 Attending/Attestation - Attestation I have personally seen and examined this patient.: Yes I have fully participated in the care of the patient.: Yes I have reviewed all pertinent clinical information, including history, physical exam and plan: Yes Notes (Text): 06/17/18 14:52 37 year old female with past medical history of HIV/AIDs, PCP pneumonia, hepatitis C, CHF, COPD and history of substance abuse on methadone who was recently treated for PCP pneumonia. She had a recent liver biopsy which came back positive for acid fast bacilli, r/o ARCELIA. ID evaluation is following. Patient is started on RIPE therapy. Monitor LFTs closely while on treatment. Patient is on airborne isolation precaution. Pending quantiferon, AFB and final liver biopsy. Cardiology is following for history of CHF. She is on methadone for maintainence therapy for history of substance abuse. Yoel Cortés MD Hospitalist.
--- NOTE | 2018-06-17 21:00 | CP.PCM.PN ---
Subjective - Date & Time of Evaluation Date of Evaluation: 06/17/18 Time of Evaluation: 10:55 - Subjective Subjective: No shortness of breath, no fevers, has a little more energy, no abdominal pain, no nausea, no pruritus or skin rash. Objective - Vital Signs/Intake and Output Vital Signs (last 24 hours): Temp Pulse Resp BP Pulse Ox 98.4 F 89 20 86/55 L 97 06/17/18 18:00 06/17/18 18:06 06/17/18 18:00 06/17/18 18:06 06/17/18 18:00 Intake and Output: 06/17/18 06/18/18 18:59 06:59 Intake Total 840 Output Total 1800 Balance -960 - Medications Medications: Current Medications Albuterol/Ipratropium (Duoneb 3 Mg/0.5 Mg (3 Ml) Ud) 2.5 ml IH [id number] [facility] Last Admin: 06/17/18 20:18 Dose: 2.5 ml Atovaquone (Mepron) 750 mg PO BID [facility] PRN Reason: Protocol Last Admin: 06/17/18 17:54 Dose: 750 mg Carvedilol (Coreg) 3.125 mg PO BID [facility] Last Admin: 06/17/18 18:06 Dose: Not Given Clonazepam (Klonopin) 0.5 mg PO BID PRN; Protocol PRN Reason: Anxiety Last Admin: 06/17/18 15:17 Dose: 0.5 mg Docusate Sodium (Colace) 100 mg PO DAILY [facility] Last Admin: 06/17/18 09:51 Dose: 100 mg Enoxaparin Sodium (Lovenox) 40 mg SC DAILY [facility] PRN Reason: Protocol Last Admin: 06/17/18 09:53 Dose: 40 mg Ethambutol HCl (Myambutol) 800 mg PO DAILY [facility] PRN Reason: Protocol Last Admin: 06/17/18 09:51 Dose: 800 mg Isoniazid (Niazid) 300 mg PO DAILY [facility] PRN Reason: Protocol Last Admin: 06/17/18 10:05 Dose: 300 mg Lisinopril (Zestril) 5 mg PO DAILY [facility] Last Admin: 06/17/18 10:30 Dose: Not Given Methadone HCl (Methadone) 90 mg PO DAILY [facility] Last Admin: 06/17/18 10:09 Dose: 90 mg Pantoprazole Sodium (Protonix Ec Tab) 40 mg PO 0600 [facility] Last Admin: 06/17/18 05:04 Dose: 40 mg Pyrazinamide (Pyrazinamide) 1,000 mg PO DAILY [facility] PRN Reason: Protocol Last Admin: 06/17/18 10:05 Dose: 1,000 mg Pyridoxine HCl (Vitamin B6 50 Mg Tab) 50 mg PO DAILY [facility] Last Admin: 06/17/18 11:23 Dose: 50 mg Rifampin (Rifampin Cap) 600 mg PO DAILY [facility] PRN Reason: Protocol Last Admin: 06/17/18 09:50 Dose: 600 mg Spironolactone (Aldactone) 25 mg PO DAILY [facility] Last Admin: 06/17/18 09:51 Dose: 25 mg - Labs Labs: 06/17/18 06:30 06/17/18 06:30 PT 11.9 SECONDS (9.4-12.5) 06/16/18 02:30 INR 1.04 06/16/18 02:30 APTT 33.0 Seconds (25.1-36.5) 06/16/18 02:30 - Constitutional Appears: Cachectic, Chronically Ill - Head Exam Head Exam: NORMAL INSPECTION - Neck Exam Neck Exam: absent: Meningismus - Respiratory Exam Respiratory Exam: Decreased Breath Sounds - Cardiovascular Exam Cardiovascular Exam: +S1, +S2 - GI/Abdominal Exam GI & Abdominal Exam: Soft. absent: Tenderness Assessment and Plan - Assessment and Plan (Free Text) Plan: Assessment Mycobacterial liver disease, TB or ARCELIA history of pneumocystis pneumonia history of severe sepsis S/P ventilator-dependent respiratory failure, acute renal failure and acute hepatitis due to possible pneumocystis pneumonia on top of HCAP HIV/AIDS with last CD4 count <20, non-compliant with her meds COPD chronic back pain history of IVDA hepatitis C infection Plan continue Rifampin, INH, EMB, PZA, Vitamin B6 - unable to use macrolides since patient is allergic to Zithromax reviewed liver biopsy results showing AFB positive organisms - continue to monitor and trend transaminases (slowly trending down) follow up sputum AFB overall prognosis is poor unless patient starts taking her HIV meds - should start soon (i.e. in the next 2 weeks) ,
[2018-06-18] MEDS: Albuterol-Ipratrop 3 mg / 0.5 (3 ml) UD IH SCH ×6 (03:51→23:12)
[2018-06-18] MEDS: Pantoprazole 40 mg EC Tab PO SCH (05:34)
[2018-06-18 06:50] LABS: ALB/GLOB RATIO 0.7 (1.1-1.8); ALBUMIN 2.7 g/dL (3.0-4.8); ALT/SGPT 48 U/L (7-56); AST/SGOT 28 U/L (14-36); BLOOD UREA NITROGEN 17 mg/dL (7-21); CALCIUM 8.7 mg/dL (8.4-10.5); GFR NON-AFRICAN AMERICAN 56
[2018-06-18 06:58] LABS: BASO # 0.01 K/mm3 (0.0-2.0); BASO % 0.4 % (0.0-3.0); GRAN # 1.15 (1.4-6.5); GRAN % 48.9 % (50.0-68.0); LYMPH # 0.8 (1.2-3.4); LYMPH % 34.5 % (22.0-35.0); MEAN CELL VOLUME 80.7 fl (80.0-105.0); MEAN CORPUSCULAR HEMOGLOBIN 25.1 pg (25.0-35.0); MEAN CORPUSCULAR HGB CONC 31.1 g/dl (31.0-37.0); MEAN PLATELET VOLUME 9.4 fl (7.0-11.0); MONO # 0.4 (0.1-0.6); MONO % 16.2 % (1.0-6.0); RBC 3.58 10^6/uL (3.5-6.1); RED CELL DISTRIBUTION WIDTH 16.7 % (11.5-14.5)
[2018-06-18 07:22] LABS: WHITE BLOOD COUNT 2.4 10^3/ul (4.5-11.0)
--- NOTE | 2018-06-18 08:09 | CP.PCM.PN ---
Subjective - Date & Time of Evaluation Date of Evaluation: 06/18/18 Time of Evaluation: 06:25 - Subjective Subjective: awake, alert, no distress,feels weak Reason for consultation and follow up : Cardiac evaluation of shortness of breath, recently treated for Pneumocystis pneumonia and acute chronic systolic congestive heart failure exacerbation. History of HIV. Seen and examined by me and Dr. Umaña Objective - Vital Signs/Intake and Output Vital Signs (last 24 hours): Temp Pulse Resp BP Pulse Ox 98.4 F 93 H 20 105/73 96 06/18/18 06:00 06/18/18 06:00 06/18/18 06:00 06/18/18 06:00 06/18/18 06:00 - Medications Medications: Current Medications Albuterol/Ipratropium (Duoneb 3 Mg/0.5 Mg (3 Ml) Ud) 2.5 ml IH [id number] [facility] Last Admin: 06/18/18 03:51 Dose: Not Given Atovaquone (Mepron) 750 mg PO BID [facility] PRN Reason: Protocol Last Admin: 06/17/18 17:54 Dose: 750 mg Carvedilol (Coreg) 3.125 mg PO BID [facility] Last Admin: 06/17/18 18:06 Dose: Not Given Clonazepam (Klonopin) 0.5 mg PO BID PRN; Protocol PRN Reason: Anxiety Last Admin: 06/17/18 15:17 Dose: 0.5 mg Docusate Sodium (Colace) 100 mg PO DAILY [facility] Last Admin: 06/17/18 09:51 Dose: 100 mg Enoxaparin Sodium (Lovenox) 40 mg SC DAILY [facility] PRN Reason: Protocol Last Admin: 06/17/18 09:53 Dose: 40 mg Ethambutol HCl (Myambutol) 800 mg PO DAILY [facility] PRN Reason: Protocol Last Admin: 06/17/18 09:51 Dose: 800 mg Isoniazid (Niazid) 300 mg PO DAILY [facility] PRN Reason: Protocol Last Admin: 06/17/18 10:05 Dose: 300 mg Lisinopril (Zestril) 5 mg PO DAILY [facility] Last Admin: 06/17/18 10:30 Dose: Not Given Methadone HCl (Methadone) 90 mg PO DAILY [facility] Last Admin: 06/17/18 10:09 Dose: 90 mg Pantoprazole Sodium (Protonix Ec Tab) 40 mg PO 0600 [facility] Last Admin: 06/18/18 05:34 Dose: 40 mg Pyrazinamide (Pyrazinamide) 1,000 mg PO DAILY [facility] PRN Reason: Protocol Last Admin: 06/17/18 10:05 Dose: 1,000 mg Pyridoxine HCl (Vitamin B6 50 Mg Tab) 50 mg PO DAILY [facility] Last Admin: 06/17/18 11:23 Dose: 50 mg Rifampin (Rifampin Cap) 600 mg PO DAILY [facility] PRN Reason: Protocol Last Admin: 06/17/18 09:50 Dose: 600 mg Spironolactone (Aldactone) 25 mg PO DAILY [facility] Last Admin: 06/17/18 09:51 Dose: 25 mg - Labs Labs: 06/18/18 06:00 06/18/18 06:00 PT 11.9 SECONDS (9.4-12.5) 06/16/18 02:30 INR 1.04 06/16/18 02:30 APTT 33.0 Seconds (25.1-36.5) 06/16/18 02:30 - Constitutional Appears: No Acute Distress - Eye Exam Eye Exam: Normal appearance - ENT Exam ENT Exam: Mucous Membranes Moist - Respiratory Exam Respiratory Exam: Decreased Breath Sounds, NORMAL BREATHING PATTERN - Cardiovascular Exam Cardiovascular Exam: +S1, +S2 - GI/Abdominal Exam GI & Abdominal Exam: Soft, Normal Bowel Sounds - Neurological Exam Neurological Exam: Alert, Awake, Oriented x3 - Psychiatric Exam Psychiatric exam: Normal Affect - Skin Skin Exam: Intact, Warm Assessment and Plan - Assessment and Plan (Free Text) Assessment: A 38 year old female who was sent to the ER due to recent liver biopsy result of positive for acid fast bacilli, 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 She is known to service for multiple admissions. Recent admission was on 05/18/18 for Pneumocystis pneumonia and exacerbation of congestive heart failure. She went home without completing the antibiotic therapy. On 06/02/18, she was readmitted for the same diagnosis and for non compliance of treatment regimen. Liver biopsy was then done at that time due to markedly elevated LFT's. History of HIV with CD4<20 EBV, CMV, Hepatitis C ,HSV, COPD, asthma, heroin abuse, on Methadone, former smoker, congestive heart failure. Methadone dose was decrease from previous admission due to prolonged QT interval.04/14/18- ECHO- Moderately impaired systolic function, LVEF 35%, Trace AR/MR, Mild TR RVSP 40 mmHg,Trace pericardial effusion.06/19/18- Lung Scan- Negative for pulmonary embolism, likely COPD Plan: Comfortable,Denies shortness of breath, On Airborne precaution On Coreg 3.125 mg BID,Lovenox 40 mg daily,Zestril 5 mg daily, Aldactone 25 mg daily Stable heart rate and blood pressure Stable cardiac status GI and ID on consult Anti TB medications per ID Continue current medications Continue current treatment Will follow up Plan and treatment discussed with Dr. Umaña
--- NOTE | 2018-06-18 09:27 | CP.PCM.PN ---
<Hunter Medina - Last Filed: 06/18/18 14:18> Subjective - Date & Time of Evaluation Date of Evaluation: 06/18/18 Time of Evaluation: 09:26 - Subjective Subjective: Hunter Medina DO PGY1 - Internal Medicine Recreation Engineer - Hospital Progress Note Patient was seen and examined at bedside this AM. We are currently trying to rule out TB however patient has been unable to provide sample. She reports that she has no need/urgency to cough. No other issues reported at this time. 12 system ROS negative at this time. Objective - Vital Signs/Intake and Output Vital Signs (last 24 hours): Temp Pulse Resp BP Pulse Ox 98.4 F 93 H 20 105/73 96 06/18/18 06:00 06/18/18 06:00 06/18/18 06:00 06/18/18 06:00 06/18/18 06:00 - Medications Medications: Current Medications Albuterol/Ipratropium (Duoneb 3 Mg/0.5 Mg (3 Ml) Ud) 2.5 ml IH [id number] [facility] Last Admin: 06/18/18 08:28 Dose: 2.5 ml Atovaquone (Mepron) 750 mg PO BID [facility] PRN Reason: Protocol Last Admin: 06/17/18 17:54 Dose: 750 mg Carvedilol (Coreg) 3.125 mg PO BID [facility] Last Admin: 06/17/18 18:06 Dose: Not Given Clonazepam (Klonopin) 0.5 mg PO BID PRN; Protocol PRN Reason: Anxiety Last Admin: 06/17/18 15:17 Dose: 0.5 mg Docusate Sodium (Colace) 100 mg PO DAILY [facility] Last Admin: 06/17/18 09:51 Dose: 100 mg Enoxaparin Sodium (Lovenox) 40 mg SC DAILY [facility] PRN Reason: Protocol Last Admin: 06/17/18 09:53 Dose: 40 mg Ethambutol HCl (Myambutol) 800 mg PO DAILY [facility] PRN Reason: Protocol Last Admin: 06/17/18 09:51 Dose: 800 mg Isoniazid (Niazid) 300 mg PO DAILY [facility] PRN Reason: Protocol Last Admin: 06/17/18 10:05 Dose: 300 mg Lisinopril (Zestril) 5 mg PO DAILY [facility] Last Admin: 06/17/18 10:30 Dose: Not Given Methadone HCl (Methadone) 90 mg PO DAILY [facility] Last Admin: 06/17/18 10:09 Dose: 90 mg Pantoprazole Sodium (Protonix Ec Tab) 40 mg PO 0600 [facility] Last Admin: 06/18/18 05:34 Dose: 40 mg Pyrazinamide (Pyrazinamide) 1,000 mg PO DAILY [facility] PRN Reason: Protocol Last Admin: 06/17/18 10:05 Dose: 1,000 mg Pyridoxine HCl (Vitamin B6 50 Mg Tab) 50 mg PO DAILY [facility] Last Admin: 06/17/18 11:23 Dose: 50 mg Rifampin (Rifampin Cap) 600 mg PO DAILY [facility] PRN Reason: Protocol Last Admin: 06/17/18 09:50 Dose: 600 mg Spironolactone (Aldactone) 25 mg PO DAILY [facility] Last Admin: 06/17/18 09:51 Dose: 25 mg - Labs Labs: 06/18/18 06:00 06/18/18 06:00 PT 11.9 SECONDS (9.4-12.5) 06/16/18 02:30 INR 1.04 06/16/18 02:30 APTT 33.0 Seconds (25.1-36.5) 06/16/18 02:30 Physical Exam - Constitutional Appears: No Acute Distress - Head Exam Head Exam: ATRAUMATIC, NORMAL INSPECTION - Eye Exam Eye Exam: Normal appearance - ENT Exam ENT Exam: Mucous Membranes Moist - Respiratory Exam Respiratory Exam: absent: Rales, Wheezes, Respiratory Distress Additional comments: Some rhonchi heard on right lung - Cardiovascular Exam Cardiovascular Exam: REGULAR RHYTHM, +S1, +S2. absent: Gallop, Rubs, Murmur - GI/Abdominal Exam GI & Abdominal Exam: Soft, Normal Bowel Sounds. absent: Tenderness - Extremities Exam Extremities Exam: absent: Calf Tenderness, pedal edema - Neurological Exam Neurological Exam: Alert, Awake, Oriented x3 - Psychiatric Exam Psychiatric exam: Normal Affect, Normal Mood - Skin Skin Exam: Dry, Intact, Normal Color, Warm Assessment and Plan - Assessment and Plan (Free Text) Assessment: A 38 year old female who was sent to the ER due to recent liver biopsy result of positive for acid fast bacilli, 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 She is known to service for multiple admissions. Recent admission was on 05/18/18 for Pneumocystis pneumonia and exacerbation of congestive heart failure. She went home without completing the antibiotic therapy. On 06/02/18, she was readmitted for the same diagnosis and for non compliance of treatment regimen. Liver biopsy was then done at that time due to markedly elevated LFT's. History of HIV with CD4<20 EBV, CMV, Hepatitis C ,HSV, COPD, asthma, heroin abuse, on Methadone, former smoker, congestive heart failure. Methadone dose was decrease from previous admission due to prolonged QT interval.04/14/18- ECHO- Moderately impaired systolic function, LVEF 35%, Trace AR/MR, Mild TR RVSP 40 mmHg,Trace pericardial effusion. 06/19/18- Lung Scan- Negative for pulmonary embolism, likely COPD. 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 Pt noncompliant with antiretrovirals - Hx of Hep C, CMV, EBV, PCP pneumonia - HCV: treated with Harvxenia, CMV IgG Ab >10 (05/20/18), EBV EA IgG 62.90 (05/20/18 ) - RPR (06/03): non reactive - Blood, urine, sputum cultures: pending - Sputum induction by RT ordered - ID Consulted, Dr. 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 Veliz History of COPD - C/w Duoneb Q4H benjamin - O2 NC PRN for SOB, maintain SpO2 >90% History of substance abuse - On Methadone 90mg at home- dose confirmed with [employer] - C/w Methadone 90mg DVT ppx: Lovenox GI PPX: Protonix Patient seen examined and discussed w/ Dr. Moo Medina DO PGY1- Internal Medicine Recreation Engineer <Yoel Cortés - Last Filed: 06/18/18 14:54> Objective - Vital Signs/Intake and Output Vital Signs (last 24 hours): Temp Pulse Resp BP Pulse Ox 98.7 F 95 H 18 97/62 L 96 06/18/18 12:00 06/18/18 12:00 06/18/18 12:00 06/18/18 12:00 06/18/18 06:00 - Medications Medications: Current Medications Albuterol/Ipratropium (Duoneb 3 Mg/0.5 Mg (3 Ml) Ud) 2.5 ml IH [id number] [facility] Last Admin: 06/18/18 11:50 Dose: 2.5 ml Atovaquone (Mepron) 750 mg PO BID [facility] PRN Reason: Protocol Last Admin: 06/18/18 10:57 Dose: 750 mg Carvedilol (Coreg) 3.125 mg PO BID [facility] Last Admin: 06/18/18 10:56 Dose: 3.125 mg Clonazepam (Klonopin) 0.5 mg PO BID PRN; Protocol PRN Reason: Anxiety Last Admin: 06/17/18 15:17 Dose: 0.5 mg Docusate Sodium (Colace) 100 mg PO DAILY [facility] Last Admin: 06/18/18 10:56 Dose: 100 mg Enoxaparin Sodium (Lovenox) 40 mg SC DAILY [facility] PRN Reason: Protocol Last Admin: 06/18/18 10:57 Dose: 40 mg Ethambutol HCl (Myambutol) 800 mg PO DAILY [facility] PRN Reason: Protocol Last Admin: 06/18/18 10:56 Dose: 800 mg Isoniazid (Niazid) 300 mg PO DAILY [facility] PRN Reason: Protocol Last Admin: 06/18/18 10:56 Dose: 300 mg Lisinopril (Zestril) 5 mg PO DAILY [facility] Last Admin: 06/18/18 10:56 Dose: 5 mg Methadone HCl (Methadone) 90 mg PO DAILY [facility] Last Admin: 06/18/18 10:57 Dose: 90 mg Pantoprazole Sodium (Protonix Ec Tab) 40 mg PO 0600 [facility] Last Admin: 06/18/18 05:34 Dose: 40 mg Pyrazinamide (Pyrazinamide) 1,000 mg PO DAILY [facility] PRN Reason: Protocol Last Admin: 06/18/18 10:56 Dose: 1,000 mg Pyridoxine HCl (Vitamin B6 50 Mg Tab) 50 mg PO DAILY [facility] Last Admin: 06/18/18 10:56 Dose: 50 mg Rifampin (Rifampin Cap) 600 mg PO DAILY [facility] PRN Reason: Protocol Last Admin: 06/18/18 10:55 Dose: 600 mg Spironolactone (Aldactone) 25 mg PO DAILY [facility] Last Admin: 06/18/18 10:56 Dose: 25 mg - Labs Labs: 06/18/18 06:00 06/18/18 06:00 PT 11.9 SECONDS (9.4-12.5) 06/16/18 02:30 INR 1.04 06/16/18 02:30 APTT 33.0 Seconds (25.1-36.5) 06/16/18 02:30 Attending/Attestation - Attestation I have personally seen and examined this patient.: Yes I have fully participated in the care of the patient.: Yes I have reviewed all pertinent clinical information, including history, physical exam and plan: Yes Notes (Text): 06/18/18 14:51 37 year old female with past medical history of HIV/AIDs, PCP pneumonia, hepatitis C, CHF, COPD and history of substance abuse on methadone who was recently treated for PCP pneumonia. She had a recent liver biopsy which came back positive for acid fast bacilli, r/o ARCELIA. ID evaluation is following. Patient is started on RIPE therapy. Monitor LFTs closely while on treatment. Monitor pancytopenia as well. Patient is on airborne isolation precaution. Pending quantiferon, AFB and final liver biopsy. Will request respiratory for sputum induction if patient is unable to provide sample. Cardiology is following for history of CHF. Potassium is slightly elevated (5.1) so her lisinopril dose is reduced. Will continue to monitor. She is on methadone for maintainence therapy for history of substance abuse. Yoel Cortés MD Hospitalist.
[2018-06-18] MEDS: Enoxaparin 40 mg Syringe SC SCH (10:57)
[2018-06-18] MEDS: Atovaquone 750 mg/5 ml Susp UD PO SCH ×2 (10:57→18:03)
--- NOTE | 2018-06-18 13:31 | PN ---
Copied To: Cheikh Chou MD Attending MD: Cheikh Chou MD DATE: 06/18/2018 SUBJECTIVE: The patient is in bed, in no acute distress, nontoxic, was seen earlier. PHYSICAL EXAMINATION: VITAL SIGNS: Temperature is 98, blood pressure is 105/70, respiratory rate 20, heart rate of 87. HEENT: Unremarkable. NECK: Supple. LUNGS: Have decreased breath sounds. HEART: Normal S1, S2. ABDOMEN: Soft, nontender. No rebound or guarding. LABORATORY DATA: Laboratory examination reveals a white count of 2.4, hemoglobin of 9, platelets of 108. BUN of 17, creatinine of 1.1. HIV is noted. PCR blood cultures are no growth. Urine cultures are no growth. Review of orders reveals the patient to be on Mepron, ethambutol, INH, pyrazinamide, Rifampin. 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 Currently on INH, Rifampin, ethambutol, pyrazinamide and B6. Unable to use macrolides for treatment, ALLERGIC TO ZITHROMAX. Awaiting for identification and sensitivity, AFB from the liver. We will follow with you. Overall prognosis quite poor for this patient who has been consistently noncompliant. Cheikh Chou MD
[2018-06-19] MEDS: Albuterol-Ipratrop 3 mg / 0.5 (3 ml) UD IH SCH ×3 (05:11→11:38)
[2018-06-19] MEDS: Pantoprazole 40 mg EC Tab PO SCH (05:12)
[2018-06-19 07:35] LABS: BASO # 0.01 K/mm3 (0.0-2.0); BASO % 0.5 % (0.0-3.0); GRAN # 0.88 (1.4-6.5); GRAN % 44.4 % (50.0-68.0); HEMOGLOBIN 9.3 g/dL (12.0-16.0); LYMPH # 0.8 (1.2-3.4); LYMPH % 39.4 % (22.0-35.0); MEAN CELL VOLUME 81.6 fl (80.0-105.0); MEAN CORPUSCULAR HEMOGLOBIN 25.1 pg (25.0-35.0); MEAN CORPUSCULAR HGB CONC 30.8 g/dl (31.0-37.0); MEAN PLATELET VOLUME 9.2 fl (7.0-11.0); MONO # 0.3 (0.1-0.6); MONO % 15.7 % (1.0-6.0); RBC 3.7 10^6/uL (3.5-6.1); RED CELL DISTRIBUTION WIDTH 16.6 % (11.5-14.5)
[2018-06-19 07:52] LABS: ALB/GLOB RATIO 0.7 (1.1-1.8); ALT/SGPT 43 U/L (7-56); AST/SGOT 23 U/L (14-36); BLOOD UREA NITROGEN 15 mg/dL (7-21); CALCIUM 9.1 mg/dL (8.4-10.5); GFR NON-AFRICAN AMERICAN > 60
--- NOTE | 2018-06-19 08:00 | CP.PCM.PN ---
Subjective - Date & Time of Evaluation Date of Evaluation: 06/19/18 Time of Evaluation: 06:25 - Subjective Subjective: awake, alert, no distress,feels okay Reason for consultation and follow up : Cardiac evaluation of shortness of breath, recently treated for Pneumocystis pneumonia and acute chronic systolic congestive heart failure exacerbation. History of HIV. Seen and examined by me and Dr. Umaña Objective - Vital Signs/Intake and Output Vital Signs (last 24 hours): Temp Pulse Resp BP Pulse Ox 98.5 F 71 20 117/82 98 06/19/18 06:00 06/19/18 06:00 06/19/18 06:00 06/19/18 06:00 06/19/18 06:00 Intake and Output: 06/19/18 06/19/18 06:59 18:59 Intake Total 240 Balance 240 - Medications Medications: Current Medications Albuterol/Ipratropium (Duoneb 3 Mg/0.5 Mg (3 Ml) Ud) 2.5 ml [id number] Last Admin: 06/19/18 07:31 Dose: 2.5 ml Atovaquone (Mepron) 750 mg PO BID [facility] PRN Reason: Protocol Last Admin: 06/18/18 18:03 Dose: 750 mg Carvedilol (Coreg) 3.125 mg PO BID [facility] Last Admin: 06/18/18 18:20 Dose: Not Given Clonazepam (Klonopin) 0.5 mg PO BID PRN; Protocol PRN Reason: Anxiety Last Admin: 06/18/18 21:58 Dose: 0.5 mg Docusate Sodium (Colace) 100 mg PO DAILY [facility] Last Admin: 06/18/18 10:56 Dose: 100 mg Enoxaparin Sodium (Lovenox) 40 mg SC DAILY [facility] PRN Reason: Protocol Last Admin: 06/18/18 10:57 Dose: 40 mg Ethambutol HCl (Myambutol) 800 mg PO DAILY [facility] PRN Reason: Protocol Last Admin: 06/18/18 10:56 Dose: 800 mg Isoniazid (Niazid) 300 mg PO DAILY [facility] PRN Reason: Protocol Last Admin: 06/18/18 10:56 Dose: 300 mg Lisinopril (Zestril) 2.5 mg PO DAILY [facility] Methadone HCl (Methadone) 90 mg PO DAILY [facility] Last Admin: 06/18/18 10:57 Dose: 90 mg Pantoprazole Sodium (Protonix Ec Tab) 40 mg PO 0600 [facility] Last Admin: 06/19/18 05:12 Dose: 40 mg Pyrazinamide (Pyrazinamide) 1,000 mg PO DAILY [facility] PRN Reason: Protocol Last Admin: 06/18/18 10:56 Dose: 1,000 mg Pyridoxine HCl (Vitamin B6 50 Mg Tab) 50 mg PO DAILY [facility] Last Admin: 06/18/18 10:56 Dose: 50 mg Rifampin (Rifampin Cap) 600 mg PO DAILY [facility] PRN Reason: Protocol Last Admin: 06/18/18 10:55 Dose: 600 mg Spironolactone (Aldactone) 25 mg PO DAILY [facility] Last Admin: 06/18/18 10:56 Dose: 25 mg - Labs Labs: 06/19/18 06:30 06/19/18 06:30 PT 11.9 SECONDS (9.4-12.5) 06/16/18 02:30 INR 1.04 06/16/18 02:30 APTT 33.0 Seconds (25.1-36.5) 06/16/18 02:30 - Constitutional Appears: No Acute Distress - Eye Exam Eye Exam: Normal appearance - ENT Exam ENT Exam: Mucous Membranes Moist - Respiratory Exam Respiratory Exam: Decreased Breath Sounds, NORMAL BREATHING PATTERN - Cardiovascular Exam Cardiovascular Exam: +S1, +S2 - GI/Abdominal Exam GI & Abdominal Exam: Soft, Normal Bowel Sounds - Extremities Exam Extremities Exam: Normal Capillary Refill - Neurological Exam Neurological Exam: Alert, Awake, Oriented x3 - Psychiatric Exam Psychiatric exam: Normal Affect - Skin Skin Exam: Intact, Warm Assessment and Plan - Assessment and Plan (Free Text) Assessment: A 38 year old female who was sent to the ER due to recent liver biopsy result of positive for acid fast bacilli, 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 She is known to service for multiple admissions. Recent admission was on 05/18/18 for Pneumocystis pneumonia and exacerbation of congestive heart failure. She went home without completing the antibiotic therapy. On 06/02/18, she was readmitted for the same diagnosis and for non compliance of treatment regimen. Liver biopsy was then done at that time due to markedly elevated LFT's. History of HIV with CD4<20 EBV, CMV, Hepatitis C ,HSV, COPD, asthma, heroin abuse, on Methadone, former smoker, congestive heart failure. Methadone dose was decrease from previous admission due to prolonged QT interval.04/14/18- ECHO- Moderately impaired systolic function, LVEF 35%, Trace AR/MR, Mild TR RVSP 40 mmHg,Trace pericardial effusion.06/19/18- Lung Scan- Negative for pulmonary embolism, likely COPD Restarted methadone dose at 90 mg. Will monitor closely EKG QT interval and any arrythmias. Plan: Feels okay, denies shortness of breath On Airborne precaution Stable heart rate and blood pressure Stable cardiac status On Coreg 3.125 mg BID,Lovenox 40 mg daily,Zestril 5 mg daily, Aldactone 25 mg daily GI and ID on consult Anti TB medications per ID Continue current medications Continue current treatment Nutritional support Will follow up Plan and treatment discussed with Dr. Umaña
[2018-06-19] MEDS: Atovaquone 750 mg/5 ml Susp UD PO SCH ×2 (09:21→18:10)
[2018-06-19] MEDS: Enoxaparin 40 mg Syringe SC SCH (09:21)
--- NOTE | 2018-06-19 11:47 | PN ---
Copied To: Cheikh Chou MD Attending MD: Cheikh Chou MD DATE: 06/19/2018 SUBJECTIVE: Patient is in bed, in no acute distress, nontoxic. PHYSICAL EXAMINATION: VITAL SIGNS: On exam, temperature is 98, blood pressure is 117/80, respiratory rate of 20. HEENT: Unremarkable. NECK: Supple. LUNGS: Have decreased breath sounds. HEART: Normal S1, S2. ABDOMEN: Soft, nontender. LABORATORY DATA: Laboratory examination reveals a white count of 2, hemoglobin of 9, platelets of 99. Chemistries reveals a BUN of 15, creatinine of 0.9. Urinalysis is noted and HIV PCR viral load is 4.18. Microbiology reveals the blood and urine cultures are negative and orders reviewed, noted medications. 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 We will continue the present course. Awaiting for identification of the Acid- Fast Bacilli. Overall long-term prognosis is quite poor for this patient, who has end-stage acquired immunodeficiency syndrome, poorly complying, probable end-stage acquired immunodeficiency syndrome, dementia. Need supervision at home. Cheikh Chou MD
--- NOTE | 2018-06-19 11:49 | CP.PCM.PN ---
<Joe Lynne - Last Filed: 06/19/18 11:46> Subjective - Date & Time of Evaluation Date of Evaluation: 06/19/18 Time of Evaluation: 08:30 - Subjective Subjective: PGY-[address] Cortés. No acute events noted overnight. Patient instructed that she needs to provide sputum samples - she acknowledged she understood this. Otherwise, she did not offer any complaints. She stated her breathing was "fine". She denied abdominal pain, GI symptoms, urinary symptoms. Objective - Vital Signs/Intake and Output Vital Signs (last 24 hours): Temp Pulse Resp BP Pulse Ox 98.5 F 71 20 117/82 98 06/19/18 06:00 06/19/18 09:22 06/19/18 06:00 06/19/18 09:22 06/19/18 06:00 Intake and Output: 06/19/18 06/19/18 06:59 18:59 Intake Total 240 Balance 240 - Medications Medications: Current Medications Albuterol/Ipratropium (Duoneb 3 Mg/0.5 Mg (3 Ml) Ud) 2.5 ml IH [id number] [facility] Last Admin: 06/19/18 11:38 Dose: 2.5 ml Atovaquone (Mepron) 750 mg PO BID [facility] PRN Reason: Protocol Last Admin: 06/19/18 09:21 Dose: 750 mg Carvedilol (Coreg) 3.125 mg PO BID [facility] Last Admin: 06/19/18 09:21 Dose: 3.125 mg Clonazepam (Klonopin) 0.5 mg PO BID PRN; Protocol PRN Reason: Anxiety Last Admin: 06/18/18 21:58 Dose: 0.5 mg Docusate Sodium (Colace) 100 mg PO DAILY [facility] Last Admin: 06/19/18 09:21 Dose: 100 mg Enoxaparin Sodium (Lovenox) 40 mg SC DAILY [facility] PRN Reason: Protocol Last Admin: 06/19/18 09:21 Dose: 40 mg Ethambutol HCl (Myambutol) 800 mg PO DAILY [facility] PRN Reason: Protocol Last Admin: 06/19/18 09:20 Dose: 800 mg Isoniazid (Niazid) 300 mg PO DAILY [facility] PRN Reason: Protocol Last Admin: 06/19/18 09:20 Dose: 300 mg Lisinopril (Zestril) 2.5 mg PO DAILY [facility] Last Admin: 06/19/18 09:22 Dose: 2.5 mg Methadone HCl (Methadone) 90 mg PO DAILY [facility] Last Admin: 06/19/18 09:19 Dose: 90 mg Pantoprazole Sodium (Protonix Ec Tab) 40 mg PO 0600 [facility] Last Admin: 06/19/18 05:12 Dose: 40 mg Pyrazinamide (Pyrazinamide) 1,000 mg PO DAILY [facility] PRN Reason: Protocol Last Admin: 06/19/18 09:19 Dose: 1,000 mg Pyridoxine HCl (Vitamin B6 50 Mg Tab) 50 mg PO DAILY [facility] Last Admin: 06/19/18 09:20 Dose: 50 mg Rifampin (Rifampin Cap) 600 mg PO DAILY [facility] PRN Reason: Protocol Last Admin: 06/19/18 09:19 Dose: 600 mg Spironolactone (Aldactone) 25 mg PO DAILY [facility] Last Admin: 06/19/18 09:21 Dose: 25 mg - Labs Labs: 06/19/18 06:30 06/19/18 06:30 PT 11.9 SECONDS (9.4-12.5) 06/16/18 02:30 INR 1.04 06/16/18 02:30 APTT 33.0 Seconds (25.1-36.5) 06/16/18 02:30 - Additional Findings Additional findings: - Constitutional Appears: No Acute Distress - Head Exam Head Exam: ATRAUMATIC, NORMAL INSPECTION - Eye Exam Eye Exam: Normal appearance - ENT Exam ENT Exam: Mucous Membranes Moist - Respiratory Exam Respiratory Exam: absent: Rales, Wheezes, Respiratory Distress Additional comments: Some rhonchi heard on right lung - Cardiovascular Exam Cardiovascular Exam: REGULAR RHYTHM, +S1, +S2. absent: Gallop, Rubs, Murmur - GI/Abdominal Exam GI & Abdominal Exam: Soft, Normal Bowel Sounds. absent: Tenderness - Extremities Exam Extremities Exam: absent: Calf Tenderness, pedal edema - Neurological Exam Neurological Exam: Alert, Awake, Oriented x3 - Psychiatric Exam Psychiatric exam: Normal Affect, Normal Mood - Skin Skin Exam: Dry, Intact, Normal Color, Warm Assessment and Plan - Assessment and Plan (Free Text) Assessment: A 38 year old female who was called back to the ER due to recent liver biopsy result positive for acid fast bacilli, 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 She is known to service for multiple admissions. Recent admission was on 05/18/18 for Pneumocystis pneumonia and acute on chronic congestive heart failure. She went home without completing the antibiotic therapy. On 06/02/18, she was readmitted for the same diagnosis and for non compliance of treatment regimen. Liver biopsy was then done at that time due to persistently elevated LFT's. History of HIV with CD4<20 EBV, CMV, Hepatitis C ,HSV, COPD, asthma, heroin abuse, on Methadone, former smoker, congestive heart failure. Methadone dose was decrease from previous admission due to prolonged QT interval. 04/14/18- ECHO- Moderately impaired systolic function, LVEF 35%, Trace AR/MR, Mild TR RVSP 40 mmHg, Trace pericardial effusion. 06/19/18- Lung Scan- Negative for pulmonary embolism, likely COPD. Plan: History of AIDS - Liver biopsy came back positive for acid fast bacilii - C/w Rifampin 600mg PO QD, Isoniazid 300mg PO QD, Pyrazinamide 1000mg QD, Pyridoxine 50mg PO, Ethambutol 800mg PO QD - C/w Mepron 750 PO BID for PCP treatment - Patient on airborne precautions - HIV viral load 4.81, Ag/Ab- pending - Quantiferon, Mycobacterium BLD culture, AFB sputum culture X 3 - pending * Patient provided 1 AFB sample thus far - Last CD4 <20 (03/11/2018). Hx of non-compliance. Pt has appt with [facility] on 06/23 at 1pm to begin process to start HAART - Hx of Hep C, CMV, EBV, PCP pneumonia - HCV: treated with Taylor, CMV IgG Ab >10 (05/20/18), EBV EA IgG 62.90 (05/20/18 ) - RPR (06/03): non reactive - Blood Culture negative up to date, urine Culture negative, sputum cultures: pending - Sputum induction by RT ordered - ID Consulted, Dr. 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 Veliz History of COPD - C/w albuterol Q4H benjamin (duoneb discontinued as possibility that tiotropium was preventing sputum production necessary for AFB sputum cx) - O2 NC PRN for SOB, maintain SpO2 >90% History of substance abuse - On Methadone 90mg at home- dose confirmed with [facility] - C/w Methadone 90mg Anxiety - Patient on home klonopin 0.5mg po bid which was confirmed with PMD, Dr Carter - c/w klonopin 0.5mg po bid prn for anxiety DVT ppx: Lovenox GI PPX: Protonix Patient seen examined and discussed w/ Dr. Cortés <Yoel Cortés - Last Filed: 06/19/18 13:05> Objective - Vital Signs/Intake and Output Vital Signs (last 24 hours): Temp Pulse Resp BP Pulse Ox 98.5 F 71 20 117/82 98 06/19/18 06:00 06/19/18 09:22 06/19/18 06:00 06/19/18 09:22 06/19/18 06:00 Intake and Output: 06/19/18 06/19/18 06:59 18:59 Intake Total 240 Balance 240 - Medications Medications: Current Medications Albuterol Sulfate (Albuterol 0.042% Inhal Donna (1.25mg/3ml) Ud) 1.25 mg IH [id number] [facility] Atovaquone (Mepron) 750 mg PO BID [facility] PRN Reason: Protocol Last Admin: 06/19/18 09:21 Dose: 750 mg Carvedilol (Coreg) 3.125 mg PO BID [facility] Last Admin: 06/19/18 09:21 Dose: 3.125 mg Clonazepam (Klonopin) 0.5 mg PO BID PRN; Protocol PRN Reason: Anxiety Last Admin: 06/18/18 21:58 Dose: 0.5 mg Docusate Sodium (Colace) 100 mg PO DAILY [facility] Last Admin: 06/19/18 09:21 Dose: 100 mg Enoxaparin Sodium (Lovenox) 40 mg SC DAILY [facility] PRN Reason: Protocol Last Admin: 06/19/18 09:21 Dose: 40 mg Ethambutol HCl (Myambutol) 800 mg PO DAILY [facility] PRN Reason: Protocol Last Admin: 06/19/18 09:20 Dose: 800 mg Isoniazid (Niazid) 300 mg PO DAILY [facility] PRN Reason: Protocol Last Admin: 06/19/18 09:20 Dose: 300 mg Lisinopril (Zestril) 2.5 mg PO DAILY [facility] Last Admin: 06/19/18 09:22 Dose: 2.5 mg Methadone HCl (Methadone) 90 mg PO DAILY [facility] Last Admin: 06/19/18 09:19 Dose: 90 mg Pantoprazole Sodium (Protonix Ec Tab) 40 mg PO 0600 [facility] Last Admin: 06/19/18 05:12 Dose: 40 mg Pyrazinamide (Pyrazinamide) 1,000 mg PO DAILY [facility] PRN Reason: Protocol Last Admin: 06/19/18 09:19 Dose: 1,000 mg Pyridoxine HCl (Vitamin B6 50 Mg Tab) 50 mg PO DAILY [facility] Last Admin: 06/19/18 09:20 Dose: 50 mg Rifampin (Rifampin Cap) 600 mg PO DAILY [facility] PRN Reason: Protocol Last Admin: 06/19/18 09:19 Dose: 600 mg Spironolactone (Aldactone) 25 mg PO DAILY [facility] Last Admin: 06/19/18 09:21 Dose: 25 mg - Labs Labs: 06/19/18 06:30 06/19/18 06:30 PT 11.9 SECONDS (9.4-12.5) 06/16/18 02:30 INR 1.04 06/16/18 02:30 APTT 33.0 Seconds (25.1-36.5) 06/16/18 02:30 Attending/Attestation - Attestation I have personally seen and examined this patient.: Yes I have fully participated in the care of the patient.: Yes I have reviewed all pertinent clinical information, including history, physical exam and plan: Yes Notes (Text): 06/19/18 13:04 37 year old female with past medical history of HIV/AIDs, PCP pneumonia, hepatitis C, CHF, COPD and history of substance abuse on methadone who was recently treated for PCP pneumonia. She had a recent liver biopsy which came back positive for acid fast bacilli, r/o ARCELIA. ID evaluation is following. Patient is started on RIPE therapy. Monitor LFTs closely while on treatment. Monitor pancytopenia as well. Patient is on airborne isolation precaution. Pending quantiferon, AFB and final liver biopsy. First AFB was collected yesterday after sputum induction. Cardiology is following for history of CHF. She is on methadone for maintainence therapy for history of substance abuse. Yoel Cortés MD Hospitalist.
[2018-06-19] MEDS: Albuterol 0.042% Inhal Sol (1.25 mg/3 mL) UD IH SCH ×3 (16:13→23:41)
[2018-06-20] MEDS: Albuterol 0.042% Inhal Sol (1.25 mg/3 mL) UD IH SCH ×5 (05:10→20:32)
[2018-06-20] MEDS: Pantoprazole 40 mg EC Tab PO SCH (05:27)
[2018-06-20 07:29] LABS: BASO # 0.01 K/mm3 (0.0-2.0); BASO % 0.5 % (0.0-3.0); EOS # 0.2 (0.0-0.7); EOS % 8.1 % (1.5-5.0); GRAN # 0.49 (1.4-6.5); GRAN % 26.6 % (50.0-68.0); HEMOGLOBIN 9.2 g/dL (12.0-16.0); LYMPH # 0.8 (1.2-3.4); LYMPH % 41.6 % (22.0-35.0); MEAN CELL VOLUME 79.5 fl (80.0-105.0); MEAN CORPUSCULAR HEMOGLOBIN 24.5 pg (25.0-35.0); MEAN CORPUSCULAR HGB CONC 30.9 g/dl (31.0-37.0); MEAN PLATELET VOLUME 9.6 fl (7.0-11.0); MONO # 0.4 (0.1-0.6); MONO % 23.2 % (1.0-6.0); PLATELET COUNT 92 10^3/uL (120.0-450.0); RBC 3.75 10^6/uL (3.5-6.1); RED CELL DISTRIBUTION WIDTH 16.2 % (11.5-14.5)
--- NOTE | 2018-06-20 07:42 | CP.PCM.PN ---
Subjective - Date & Time of Evaluation Date of Evaluation: 06/20/18 Time of Evaluation: 06:25 - Subjective Subjective: no distress, feels okay, awake Reason for consultation and follow up : Cardiac evaluation of shortness of breath, recently treated for Pneumocystis pneumonia and acute chronic systolic congestive heart failure exacerbation. History of HIV. Seen and examined by me and Dr. Veliz Objective - Vital Signs/Intake and Output Vital Signs (last 24 hours): Temp Pulse Resp BP Pulse Ox 97.8 F 87 20 104/67 95 06/20/18 05:47 06/20/18 05:47 06/20/18 05:47 06/20/18 05:47 06/20/18 05:47 Intake and Output: 06/20/18 06/20/18 06:59 18:59 Intake Total 420 Output Total 3 Balance 417 - Medications Medications: Current Medications Albuterol Sulfate (Albuterol 0.042% Inhal Donna (1.25mg/3ml) Ud) 1.25 mg IH [id number] [facility] Last Admin: 06/20/18 05:10 Dose: 1.25 mg Atovaquone (Mepron) 750 mg PO BID [facility] PRN Reason: Protocol Last Admin: 06/19/18 18:10 Dose: 750 mg Carvedilol (Coreg) 3.125 mg PO BID [facility] Last Admin: 06/19/18 17:22 Dose: Not Given Clonazepam (Klonopin) 0.5 mg PO BID PRN; Protocol PRN Reason: Anxiety Last Admin: 06/20/18 05:30 Dose: 0.5 mg Docusate Sodium (Colace) 100 mg PO DAILY [facility] Last Admin: 06/19/18 09:21 Dose: 100 mg Enoxaparin Sodium (Lovenox) 40 mg SC DAILY [facility] PRN Reason: Protocol Last Admin: 06/19/18 09:21 Dose: 40 mg Ethambutol HCl (Myambutol) 800 mg PO DAILY [facility] PRN Reason: Protocol Last Admin: 06/19/18 09:20 Dose: 800 mg Isoniazid (Niazid) 300 mg PO DAILY [facility] PRN Reason: Protocol Last Admin: 06/19/18 09:20 Dose: 300 mg Lisinopril (Zestril) 2.5 mg PO DAILY [facility] Last Admin: 06/19/18 09:22 Dose: 2.5 mg Methadone HCl (Methadone) 90 mg PO DAILY [facility] Last Admin: 06/19/18 09:19 Dose: 90 mg Pantoprazole Sodium (Protonix Ec Tab) 40 mg PO 0600 [facility] Last Admin: 06/20/18 05:27 Dose: 40 mg Pyrazinamide (Pyrazinamide) 1,000 mg PO DAILY [facility] PRN Reason: Protocol Last Admin: 06/19/18 09:19 Dose: 1,000 mg Pyridoxine HCl (Vitamin B6 50 Mg Tab) 50 mg PO DAILY [facility] Last Admin: 06/19/18 09:20 Dose: 50 mg Rifampin (Rifampin Cap) 600 mg PO DAILY [facility] PRN Reason: Protocol Last Admin: 06/19/18 09:19 Dose: 600 mg Spironolactone (Aldactone) 25 mg PO DAILY [facility] Last Admin: 06/19/18 09:21 Dose: 25 mg - Labs Labs: 06/19/18 06:30 06/19/18 06:30 PT 11.9 SECONDS (9.4-12.5) 06/16/18 02:30 INR 1.04 06/16/18 02:30 APTT 33.0 Seconds (25.1-36.5) 06/16/18 02:30 - Constitutional Appears: No Acute Distress - Eye Exam Eye Exam: Normal appearance - ENT Exam ENT Exam: Mucous Membranes Moist - Respiratory Exam Respiratory Exam: Decreased Breath Sounds, NORMAL BREATHING PATTERN - Cardiovascular Exam Cardiovascular Exam: +S1, +S2 - GI/Abdominal Exam GI & Abdominal Exam: Soft, Normal Bowel Sounds - Neurological Exam Neurological Exam: Alert, Awake, Oriented x3 - Psychiatric Exam Psychiatric exam: Normal Affect - Skin Skin Exam: Intact, Warm Assessment and Plan - Assessment and Plan (Free Text) Assessment: A 38 year old female who was sent to the ER due to recent liver biopsy result of positive for acid fast bacilli, 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 She is known to service for multiple admissions. Recent admission was on 05/18/18 for Pneumocystis pneumonia and exacerbation of congestive heart failure. She went home without completing the antibiotic therapy. On 06/02/18, she was readmitted for the same diagnosis and for non compliance of treatment regimen. Liver biopsy was then done at that time due to markedly elevated LFT's. History of HIV with CD4<20 EBV, CMV, Hepatitis C ,HSV, COPD, asthma, heroin abuse, on Methadone, former smoker, congestive heart failure. Methadone dose was decrease from previous admission due to prolonged QT interval.04/14/18- ECHO- Moderately impaired systolic function, LVEF 35%, Trace AR/MR, Mild TR RVSP 40 mmHg,Trace pericardial effusion.06/19/18- Lung Scan- Negative for pulmonary embolism, likely COPD Restarted methadone dose at 90 mg. Will monitor closely EKG QT interval and any arrythmias. Plan: On Airborne precaution Stable heart rate and blood pressure Stable cardiac status Discontinue telemetry On Coreg 3.125 mg BID,Lovenox 40 mg daily,Zestril 5 mg daily, Aldactone 25 mg daily Continue current medications Continue current treatment Nutritional support Will follow up Plan and treatment discussed with Dr. Veliz
[2018-06-20 07:43] LABS: WHITE BLOOD COUNT 1.9 10^3/ul (4.5-11.0)
[2018-06-20 07:52] LABS: ALB/GLOB RATIO 0.7 (1.1-1.8); ALBUMIN 2.8 g/dL (3.0-4.8); ALT/SGPT 37 U/L (7-56); AST/SGOT 20 U/L (14-36); BLOOD UREA NITROGEN 19 mg/dL (7-21); GFR NON-AFRICAN AMERICAN > 60
[2018-06-20 08:37] LABS: BAND 3 % (0-2); EOSINOPHIL 8 % (0.0-3.0); LYMPHOCYTE 36 % (22.0-35.0); MONOCYTE 16 % (1.0-6.0); NEUTROPHIL 37 % (50.0-70.0)
[2018-06-20 08:38] LABS: PLATELET ESTIMATE LOW (NORMAL)
[2018-06-20] MEDS ORDERED: Sod Polystyrene Sulf 15 gm/60 ml Susp PO ONE (10:11)
[2018-06-20] MEDS: Enoxaparin 40 mg Syringe SC SCH (11:25)
[2018-06-20] MEDS: Atovaquone 750 mg/5 ml Susp UD PO SCH ×2 (11:28→17:22)
--- NOTE | 2018-06-20 16:55 | CP.PCM.PN ---
<Vinicius Roth Cecilia - Last Filed: 06/20/18 16:49> Subjective - Date & Time of Evaluation Date of Evaluation: 06/20/18 Time of Evaluation: 16:49 - Subjective Subjective: Medicine progress note - Ira PGY - 2, IM resident Patient seen and examined at bedside, no acute events overnight. Patient denies any new complaints, is cooperative with AFB sputum cultures. Objective - Vital Signs/Intake and Output Vital Signs (last 24 hours): Temp Pulse Resp BP Pulse Ox 98.5 F 112 H 18 98/73 L 96 06/20/18 14:00 06/20/18 14:00 06/20/18 14:00 06/20/18 14:00 06/20/18 14:00 Intake and Output: 06/20/18 06/20/18 06:59 18:59 Intake Total 420 360 Output Total 3 Balance 417 360 - Medications Medications: Current Medications Albuterol Sulfate (Albuterol 0.042% Inhal Donna (1.25mg/3ml) Ud) 1.25 mg IH [id number] [facility] Last Admin: 06/20/18 15:58 Dose: 1.25 mg Atovaquone (Mepron) 750 mg PO BID [facility] PRN Reason: Protocol Last Admin: 06/20/18 11:28 Dose: 750 mg Carvedilol (Coreg) 3.125 mg PO BID [facility] Last Admin: 06/20/18 11:27 Dose: 3.125 mg Clonazepam (Klonopin) 0.5 mg PO BID PRN; Protocol PRN Reason: Anxiety Last Admin: 06/20/18 05:30 Dose: 0.5 mg Docusate Sodium (Colace) 100 mg PO DAILY [facility] Last Admin: 06/20/18 11:26 Dose: 100 mg Enoxaparin Sodium (Lovenox) 40 mg SC DAILY [facility] PRN Reason: Protocol Last Admin: 06/20/18 11:25 Dose: 40 mg Ethambutol HCl (Myambutol) 800 mg PO DAILY [facility] PRN Reason: Protocol Last Admin: 06/20/18 11:27 Dose: 800 mg Isoniazid (Niazid) 300 mg PO DAILY [facility] PRN Reason: Protocol Last Admin: 06/19/18 09:20 Dose: 300 mg Lisinopril (Zestril) 2.5 mg PO DAILY [facility] Last Admin: 06/20/18 11:28 Dose: 2.5 mg Methadone HCl (Methadone) 90 mg PO DAILY [facility] Last Admin: 06/20/18 11:26 Dose: 90 mg Pantoprazole Sodium (Protonix Ec Tab) 40 mg PO 0600 [facility] Last Admin: 06/20/18 05:27 Dose: 40 mg Pyrazinamide (Pyrazinamide) 1,000 mg PO DAILY [facility] PRN Reason: Protocol Last Admin: 06/20/18 11:27 Dose: 1,000 mg Pyridoxine HCl (Vitamin B6 50 Mg Tab) 50 mg PO DAILY [facility] Last Admin: 06/19/18 09:20 Dose: 50 mg Rifampin (Rifampin Cap) 600 mg PO DAILY [facility] PRN Reason: Protocol Last Admin: 06/20/18 11:26 Dose: 600 mg Spironolactone (Aldactone) 25 mg PO DAILY [facility] Last Admin: 06/20/18 11:27 Dose: 25 mg - Labs Labs: 06/20/18 06:30 06/20/18 06:30 PT 11.9 SECONDS (9.4-12.5) 06/16/18 02:30 INR 1.04 06/16/18 02:30 APTT 33.0 Seconds (25.1-36.5) 06/16/18 02:30 - Constitutional Appears: Well - Head Exam Head Exam: ATRAUMATIC, NORMAL INSPECTION, NORMOCEPHALIC - Eye Exam Eye Exam: EOMI, Normal appearance, PERRL Pupil Exam: NORMAL ACCOMODATION, PERRL - ENT Exam ENT Exam: Mucous Membranes Moist, Normal Exam - Neck Exam Neck Exam: Full ROM, Normal Inspection. absent: Lymphadenopathy - Respiratory Exam Respiratory Exam: Clear to Ausculation Bilateral, NORMAL BREATHING PATTERN - Cardiovascular Exam Cardiovascular Exam: REGULAR RHYTHM, +S1, +S2. absent: Murmur - GI/Abdominal Exam GI & Abdominal Exam: Soft, Normal Bowel Sounds. absent: Tenderness - Extremities Exam Extremities Exam: Full ROM, Normal Capillary Refill, Normal Inspection. absent : Joint Swelling, Pedal Edema - Back Exam Back Exam: NORMAL INSPECTION - Neurological Exam Neurological Exam: Alert, Awake, CN II-XII Intact, Normal Gait, Oriented x3 - Psychiatric Exam Psychiatric exam: Normal Affect, Normal Mood - Skin Skin Exam: Dry, Intact, Normal Color, Warm Assessment and Plan - Assessment and Plan (Free Text) Assessment: A 38 year old female who was called back to the ER due to recent liver biopsy result positive for acid fast bacilli, 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 She is known to service for multiple admissions. Recent admission was on 05/18/18 for Pneumocystis pneumonia and acute on chronic congestive heart failure. She went home without completing the antibiotic therapy. On 06/02/18, she was readmitted for the same diagnosis and for non compliance of treatment regimen. Liver biopsy was then done at that time due to persistently elevated LFT's. History of HIV with CD4<20 EBV, CMV, Hepatitis C ,HSV, COPD, asthma, heroin abuse, on Methadone, former smoker, congestive heart failure. Methadone dose was decrease from previous admission due to prolonged QT interval. 04/14/18- ECHO- Moderately impaired systolic function, LVEF 35%, Trace AR/MR, Mild TR RVSP 40 mmHg, Trace pericardial effusion. 06/19/18- Lung Scan- Negative for pulmonary embolism, likely COPD. Plan: History of AIDS - Liver biopsy came back positive for acid fast bacilii - C/w Rifampin 600mg PO QD, Isoniazid 300mg PO QD, Pyrazinamide 1000mg QD, Pyridoxine 50mg PO, Ethambutol 800mg PO QD - C/w Mepron 750 PO BID for PCP treatment - Patient on airborne precautions - 2 AFB's done, 1 left - Hx of Hep C, CMV, EBV, PCP pneumonia - HCV: treated with Harvoni, CMV IgG Ab >10 (05/20/18), EBV EA IgG 62.90 (05/20/18 ) - Sputum induction by RT ordered - ID Consulted, Dr. 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 Veliz History of COPD - C/w albuterol Q4H benjamin (duoneb discontinued as possibility that tiotropium was preventing sputum production necessary for AFB sputum cx) - O2 NC PRN for SOB, maintain SpO2 >90% History of substance abuse - On Methadone 90mg at home- dose confirmed with [employer] [facility] - C/w Methadone 90mg Anxiety - Patient on home klonopin 0.5mg po bid which was confirmed with PMD, Dr Carter - c/w klonopin 0.5mg po bid prn for anxiety DVT ppx: Lovenox GI PPX: Protonix Dispo: Awaiting patient's third AFB <Yoel Cortés - Last Filed: 06/20/18 17:18> Objective - Vital Signs/Intake and Output Vital Signs (last 24 hours): Temp Pulse Resp BP Pulse Ox 98.5 F 112 H 18 98/73 L 96 06/20/18 14:00 06/20/18 14:00 06/20/18 14:00 06/20/18 14:00 06/20/18 14:00 Intake and Output: 06/20/18 06/20/18 06:59 18:59 Intake Total 420 360 Output Total 3 Balance 417 360 - Medications Medications: Current Medications Albuterol Sulfate (Albuterol 0.042% Inhal Donna (1.25mg/3ml) Ud) 1.25 mg IH [id number] [facility] Last Admin: 06/20/18 15:58 Dose: 1.25 mg Atovaquone (Mepron) 750 mg PO BID [facility] PRN Reason: Protocol Last Admin: 06/20/18 11:28 Dose: 750 mg Carvedilol (Coreg) 3.125 mg PO BID [facility] Last Admin: 06/20/18 11:27 Dose: 3.125 mg Clonazepam (Klonopin) 0.5 mg PO BID PRN; Protocol PRN Reason: Anxiety Last Admin: 06/20/18 05:30 Dose: 0.5 mg Docusate Sodium (Colace) 100 mg PO DAILY [facility] Last Admin: 06/20/18 11:26 Dose: 100 mg Enoxaparin Sodium (Lovenox) 40 mg SC DAILY [facility] PRN Reason: Protocol Last Admin: 06/20/18 11:25 Dose: 40 mg Ethambutol HCl (Myambutol) 800 mg PO DAILY [facility] PRN Reason: Protocol Last Admin: 06/20/18 11:27 Dose: 800 mg Isoniazid (Niazid) 300 mg PO DAILY [facility] PRN Reason: Protocol Last Admin: 06/19/18 09:20 Dose: 300 mg Lisinopril (Zestril) 2.5 mg PO DAILY [facility] Last Admin: 06/20/18 11:28 Dose: 2.5 mg Methadone HCl (Methadone) 90 mg PO DAILY [facility] Last Admin: 06/20/18 11:26 Dose: 90 mg Pantoprazole Sodium (Protonix Ec Tab) 40 mg PO 0600 [facility] Last Admin: 06/20/18 05:27 Dose: 40 mg Pyrazinamide (Pyrazinamide) 1,000 mg PO DAILY [facility] PRN Reason: Protocol Last Admin: 06/20/18 11:27 Dose: 1,000 mg Pyridoxine HCl (Vitamin B6 50 Mg Tab) 50 mg PO DAILY [facility] Last Admin: 06/19/18 09:20 Dose: 50 mg Rifampin (Rifampin Cap) 600 mg PO DAILY [facility] PRN Reason: Protocol Last Admin: 06/20/18 11:26 Dose: 600 mg Spironolactone (Aldactone) 25 mg PO DAILY [facility] Last Admin: 06/20/18 11:27 Dose: 25 mg - Labs Labs: 06/20/18 06:30 06/20/18 06:30 PT 11.9 SECONDS (9.4-12.5) 06/16/18 02:30 INR 1.04 06/16/18 02:30 APTT 33.0 Seconds (25.1-36.5) 06/16/18 02:30 Attending/Attestation - Attestation I have personally seen and examined this patient.: Yes I have fully participated in the care of the patient.: Yes I have reviewed all pertinent clinical information, including history, physical exam and plan: Yes Notes (Text): 06/20/18 17:15 37 year old female with past medical history of HIV/AIDs, PCP pneumonia, hepatitis C, CHF, COPD and history of substance abuse on methadone who was recently treated for PCP pneumonia. She had a recent liver biopsy which came back positive for acid fast bacilli, r/o ARCELIA. ID evaluation is following. Patient is started on RIPE therapy. Monitor LFTs closely while on treatment. Pancytopenia is multifactorial; will continue to monitor. Patient is on airborne isolation precaution. Pending quantiferon, AFB and final liver biopsy. Second AFB was sent today and third is pending. Cardiology is following for history of CHF. She is on methadone for maintainence therapy for history of substance abuse. Yoel Cortés MD Hospitalist.
[2018-06-21] MEDS: Albuterol 0.042% Inhal Sol (1.25 mg/3 mL) UD IH SCH ×5 (00:04→16:11)
--- NOTE | 2018-06-21 02:23 | PN ---
Copied To: Cheikh Chou MD Attending MD: Cheikh Chou MD DATE: 06/20/2018 SUBJECTIVE: The patient is in bed, in no acute distress, nontoxic. PHYSICAL EXAMINATION: VITAL SIGNS: On exam, temperature is 98, blood pressure is 100/70, respiratory rate of 18. HEENT: Unremarkable. NECK: Supple. LUNGS: Have decreased breath sounds. HEART: Normal S1, S2. ABDOMEN: Soft. LABORATORY DATA: Laboratory examination reveals a white count of 1.9, hemoglobin of 9 and the chemistries are noted and urinalysis is noted and serology is noted. The patient's microbiology is reviewed. 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 I doubt Mycobacterium tuberculosis, although, still possible with multiple episodes of Pneumocystis carinii, history of hepatitis, chronic obstructive lung disease, hepatitis C in an intravenous drug abuser. Waiting for further, currently being treated. We will follow with you. Overall prognosis is quite poor for this end-stage acquired immune deficiency syndrome patient. Cheikh Chou MD
[2018-06-21] MEDS: Pantoprazole 40 mg EC Tab PO SCH (05:49)
[2018-06-21 06:56] LABS: GRAN # 0.86 (1.4-6.5); GRAN % 41.4 % (50.0-68.0); HEMOGLOBIN 9.5 g/dL (12.0-16.0); LYMPH # 0.9 (1.2-3.4); LYMPH % 42.3 % (22.0-35.0); MEAN CELL VOLUME 78.4 fl (80.0-105.0); MEAN CORPUSCULAR HEMOGLOBIN 24.5 pg (25.0-35.0); MEAN CORPUSCULAR HGB CONC 31.3 g/dl (31.0-37.0); MEAN PLATELET VOLUME 9.7 fl (7.0-11.0); MONO # 0.3 (0.1-0.6); MONO % 16.3 % (1.0-6.0); RBC 3.88 10^6/uL (3.5-6.1); RED CELL DISTRIBUTION WIDTH 16.1 % (11.5-14.5)
[2018-06-21 07:24] LABS: ALB/GLOB RATIO 0.7 (1.1-1.8); ALT/SGPT 28 U/L (7-56); AST/SGOT 31 U/L (14-36); BLOOD UREA NITROGEN 16 mg/dL (7-21); CALCIUM 8.8 mg/dL (8.4-10.5); GFR NON-AFRICAN AMERICAN > 60
[2018-06-21 07:33] LABS: WHITE BLOOD COUNT 2.1 10^3/ul (4.5-11.0)
--- NOTE | 2018-06-21 07:56 | CP.PCM.PN ---
Subjective - Date & Time of Evaluation Date of Evaluation: 06/21/18 Time of Evaluation: 06:20 - Subjective Subjective: no distress, easily awaken, feels okay Reason for consultation and follow up : Cardiac evaluation of shortness of breath, recently treated for Pneumocystis pneumonia and acute chronic systolic congestive heart failure exacerbation. History of HIV. Seen and examined by me and Dr. Veliz Objective - Vital Signs/Intake and Output Vital Signs (last 24 hours): Temp Pulse Resp BP Pulse Ox 97.5 F L 85 20 104/69 94 L 06/20/18 22:15 06/20/18 22:15 06/20/18 22:15 06/20/18 22:15 06/20/18 22:15 Intake and Output: 06/21/18 06/21/18 06:59 18:59 Intake Total 540 Balance 540 - Medications Medications: Current Medications Albuterol Sulfate (Albuterol 0.042% Inhal Donna (1.25mg/3ml) Ud) 1.25 mg IH [id number] [facility] Last Admin: 06/21/18 07:34 Dose: 1.25 mg Atovaquone (Mepron) 750 mg PO BID [facility] PRN Reason: Protocol Last Admin: 06/20/18 17:22 Dose: 750 mg Carvedilol (Coreg) 3.125 mg PO BID [facility] Last Admin: 06/20/18 17:21 Dose: 3.125 mg Clonazepam (Klonopin) 0.5 mg PO BID PRN; Protocol PRN Reason: Anxiety Last Admin: 06/20/18 17:29 Dose: 0.5 mg Docusate Sodium (Colace) 100 mg PO DAILY [facility] Last Admin: 06/20/18 11:26 Dose: 100 mg Enoxaparin Sodium (Lovenox) 40 mg SC DAILY [facility] PRN Reason: Protocol Last Admin: 06/20/18 11:25 Dose: 40 mg Ethambutol HCl (Myambutol) 800 mg PO DAILY [facility] PRN Reason: Protocol Last Admin: 06/20/18 11:27 Dose: 800 mg Isoniazid (Niazid) 300 mg PO DAILY [facility] PRN Reason: Protocol Last Admin: 06/20/18 10:00 Dose: 300 mg Lisinopril (Zestril) 2.5 mg PO DAILY [facility] Last Admin: 06/20/18 11:28 Dose: 2.5 mg Methadone HCl (Methadone) 90 mg PO DAILY [facility] Last Admin: 06/20/18 11:26 Dose: 90 mg Pantoprazole Sodium (Protonix Ec Tab) 40 mg PO 0600 [facility] Last Admin: 06/21/18 05:49 Dose: 40 mg Pyrazinamide (Pyrazinamide) 1,000 mg PO DAILY [facility] PRN Reason: Protocol Last Admin: 06/20/18 11:27 Dose: 1,000 mg Pyridoxine HCl (Vitamin B6 50 Mg Tab) 50 mg PO DAILY [facility] Last Admin: 06/20/18 10:00 Dose: 50 mg Rifampin (Rifampin Cap) 600 mg PO DAILY [facility] PRN Reason: Protocol Last Admin: 06/20/18 11:26 Dose: 600 mg Spironolactone (Aldactone) 25 mg PO DAILY [facility] Last Admin: 06/20/18 11:27 Dose: 25 mg - Labs Labs: 06/21/18 06:00 06/21/18 06:00 PT 11.9 SECONDS (9.4-12.5) 06/16/18 02:30 INR 1.04 06/16/18 02:30 APTT 33.0 Seconds (25.1-36.5) 06/16/18 02:30 - Constitutional Appears: No Acute Distress - Eye Exam Eye Exam: Normal appearance - ENT Exam ENT Exam: Mucous Membranes Moist - Respiratory Exam Respiratory Exam: Decreased Breath Sounds, Clear to Ausculation Bilateral, NORMAL BREATHING PATTERN - Cardiovascular Exam Cardiovascular Exam: +S1, +S2 - GI/Abdominal Exam GI & Abdominal Exam: Soft, Normal Bowel Sounds - Extremities Exam Extremities Exam: Normal Capillary Refill - Neurological Exam Neurological Exam: Alert, Awake, Oriented x3 - Psychiatric Exam Psychiatric exam: Normal Affect - Skin Skin Exam: Dry, Warm Assessment and Plan - Assessment and Plan (Free Text) Assessment: A 38 year old female who was sent to the ER due to recent liver biopsy result of positive for acid fast bacilli, 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 She is known to service for multiple admissions. Recent admission was on 05/18/18 for Pneumocystis pneumonia and exacerbation of congestive heart failure. She went home without completing the antibiotic therapy. On 06/02/18, she was readmitted for the same diagnosis and for non compliance of treatment regimen. Liver biopsy was then done at that time due to markedly elevated LFT's. History of HIV with CD4<20 EBV, CMV, Hepatitis C ,HSV, COPD, asthma, heroin abuse, on Methadone, former smoker, congestive heart failure. Methadone dose was decrease from previous admission due to prolonged QT interval.04/14/18- ECHO- Moderately impaired systolic function, LVEF 35%, Trace AR/MR, Mild TR RVSP 40 mmHg,Trace pericardial effusion.06/19/18- Lung Scan- Negative for pulmonary embolism, likely COPD Restarted methadone dose at 90 mg. Will monitor closely EKG QT interval and any arrythmias. Plan: Feels okay,no distress On Airborne precaution Stable cardiac status Stable heart rate and blood pressure On Coreg 3.125 mg BID,Lovenox 40 mg daily,Zestril 5 mg daily, Aldactone 25 mg daily Continue current medications Continue current treatment Nutritional support Will follow up Plan and treatment discussed with Dr. Veliz
[2018-06-21 09:38] VITALS: TEMP 98.3
[2018-06-21] MEDS: Enoxaparin 40 mg Syringe SC SCH (09:39)
[2018-06-21] MEDS: Atovaquone 750 mg/5 ml Susp UD PO SCH (11:18)
[2018-06-21 15:20] VITALS: BP 90/64; PULSE 103; RESP 18; O2SAT 100
--- NOTE | 2018-06-21 18:52 | PN ---
Copied To: Cheikh Chou MD Attending MD: Cheikh Chou MD DATE: 06/21/2018 SUBJECTIVE: Patient was seen earlier this morning in room 578. PHYSICAL EXAMINATION VITAL SIGNS: Temperature is 98, blood pressure is 104/50, respiratory rate of 18. HEENT: Unremarkable. NECK: Supple. LUNGS: Decreased breath sounds. HEART: Normal S1, S2. ABDOMEN: Soft and nontender. LABORATORY EXAMINATION: Reveals a white count of 2.1, hemoglobin of 9, and platelets of 88. Chemistries reveal a BUN of 16, creatinine of 0.8. Urinalysis is noted. HIV is noted. 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 I doubt Mycobacterium tuberculosis. Patient's QuantiFERON is negative and patient with end-stage chronic obstructive lung disease, hepatitis C, intravenous drug abuser, and multiple episodes of Pneumocystis carinii pneumonia. Overall diagnoses is poor. Awaiting for identification and sensitivity of the AFB. We will continue present course. Cheikh Chou MD
--- NOTE | 2018-06-21 19:31 | CP.PCM.DIS ---
Provider - Provider Date of Admission: 06/15/18 21:57 Attending physician: Yoel Cortés MD Primary care physician: Macario Carter MD Consults: GI - Dr. Joseph ID - Dr. Chou Cardio - Dr. Veliz Time Spent in preparation of Discharge (in minutes): 45 Hospital Course - Lab Results Lab Results: Micro Results 06/20/18 18:56 Other: Please Indicate Mycobacterial Culture - Preliminary 06/20/18 12:00 Other: Please Indicate Mycobacterial Culture - Preliminary 06/18/18 12:50 Other: Please Indicate Mycobacterial Culture - Preliminary Most Recent Lab Values WBC 2.1 10^3/ul (4.5-11.0) L* 06/21/18 06:00 RBC 3.88 10^6/uL (3.5-6.1) 06/21/18 06:00 Hgb 9.5 g/dL (12.0-16.0) L 06/21/18 06:00 Hct 30.4 % (36.0-48.0) L 06/21/18 06:00 MCV 78.4 fl (80.0-105.0) L 06/21/18 06:00 MCH 24.5 pg (25.0-35.0) L 06/21/18 06:00 MCHC 31.3 g/dl (31.0-37.0) 06/21/18 06:00 RDW 16.1 % (11.5-14.5) H 06/21/18 06:00 Plt Count 88 10^3/uL (120.0-450.0) L 06/21/18 06:00 MPV 9.7 fl (7.0-11.0) 06/21/18 06:00 Gran % 41.4 % (50.0-68.0) L 06/21/18 06:00 Lymph % (Auto) 42.3 % (22.0-35.0) H 06/21/18 06:00 [place] % (Auto) 16.3 % (1.0-6.0) H 06/21/18 06:00 Eos % (Auto) 0.0 % (1.5-5.0) L 06/21/18 06:00 Baso % (Auto) 0.0 % (0.0-3.0) 06/21/18 06:00 Gran # 0.86 (1.4-6.5) L 06/21/18 06:00 Lymph # (Auto) 0.9 (1.2-3.4) L 06/21/18 06:00 [place] # (Auto) 0.3 (0.1-0.6) 06/21/18 06:00 Eos # (Auto) 0.0 (0.0-0.7) 06/21/18 06:00 Baso # (Auto) 0.00 K/mm3 (0.0-2.0) 06/21/18 06:00 Neutrophils % (Manual) 37 % (50.0-70.0) L 06/20/18 06:30 Band Neutrophils % 3 % (0-2) H 06/20/18 06:30 Lymphocytes % (Manual) 36 % (22.0-35.0) H 06/20/18 06:30 Monocytes % (Manual) 16 % (1.0-6.0) H 06/20/18 06:30 Eosinophils % (Manual) 8 % (0.0-3.0) H 06/20/18 06:30 Platelet Evaluation Low (NORMAL) 06/20/18 06:30 PT 11.9 SECONDS (9.4-12.5) 06/16/18 02:30 INR 1.04 06/16/18 02:30 APTT 33.0 Seconds (25.1-36.5) 06/16/18 02:30 Sodium 138 mmol/L (132-148) 06/21/18 06:00 Potassium 3.9 mmol/L (3.6-5.0) 06/21/18 06:00 Chloride 106 mmol/L (98-107) 06/21/18 06:00 Carbon Dioxide 23 mmol/L (21-33) 06/21/18 06:00 Anion Gap 13 (10-20) 06/21/18 06:00 BUN 16 mg/dL (7-21) 06/21/18 06:00 Creatinine 0.8 mg/dl (0.7-1.2) 06/21/18 06:00 Est GFR ( Amer) > 60 06/21/18 06:00 Est GFR (Non-Af Amer) > 60 06/21/18 06:00 Random Glucose 90 mg/dL (70-110) 06/21/18 06:00 Calcium 8.8 mg/dL (8.4-10.5) 06/21/18 06:00 Phosphorus 4.5 mg/dL (2.5-4.5) 06/16/18 02:30 Magnesium 2.2 mg/dL (1.7-2.2) 06/16/18 02:30 Total Bilirubin 0.3 mg/dL (0.2-1.3) 06/21/18 06:00 AST 31 U/L (14-36) 06/21/18 06:00 ALT 28 U/L (7-56) 06/21/18 06:00 Alkaline Phosphatase 75 U/L (38-126) 06/21/18 06:00 Lactate Dehydrogenase 625 U/L (333-699) 06/15/18 21:30 Total Creatine Kinase 49 U/L (35-230) 06/15/18 21:30 Troponin I < 0.01 ng/mL D 06/15/18 21:30 Total Protein 7.3 g/dL (5.8-8.3) 06/21/18 06:00 Albumin 3.0 g/dL (3.0-4.8) 06/21/18 06:00 Globulin 4.3 gm/dL 06/21/18 06:00 Albumin/Globulin Ratio 0.7 (1.1-1.8) L 06/21/18 06:00 Free T4 1.32 ng/dL (0.78-2.19) 06/17/18 06:30 TSH 3rd Generation 0.82 mIU/mL (0.46-4.68) 06/17/18 06:30 Urine Color Yellow (YELLOW) 06/15/18 21:30 Urine Appearance Clear (CLEAR) 06/15/18 21:30 Urine pH 6.0 (4.7-8.0) 06/15/18 21:30 Ur Specific [place] 1.020 (1.005-1.035) 06/15/18 21:30 Urine Protein Negative mg/dL (<30 mg/dL) 06/15/18 21:30 Urine Glucose (UA) Negative mg/dL (NEGATIVE) 06/15/18 21:30 Urine Ketones Negative mg/dL (NEGATIVE) 08/22/18 21:30 Urine Blood Negative (NEGATIVE) 06/15/18 21:30 Urine Nitrate Negative (NEGATIVE) 06/15/18 21:30 Urine Bilirubin Negative (NEGATIVE) 06/15/18 21:30 Urine Urobilinogen 0.2 E.U./dL (<1 E.U./dL) 06/15/18 21:30 Ur Leukocyte Esterase Negative [place]/uL (NEGATIVE) 06/15/18 21:30 HIV-1 Antibody Positive (Negative) H 06/16/18 02:03 HIV-1 RNA Qnt (RT-PCR) 4.81 (Not Detected) H 06/16/18 02:30 HIV-2 Antibody Negative (Negative) 06/16/18 02:03 HIV 1&2 Ag/Ab, 4th Gen Reactive (Nonreactive) H 06/16/18 02:03 TB Test (QFT) Nil 0.04 IU/mL 06/16/18 02:30 TB Test Mitogen - Nil 6.13 IU/mL 06/16/18 02:30 TB Test TB - Nil 0.01 IU/mL 06/16/18 02:30 TB Test (QFT) Negative (Negative) 06/16/18 02:30 - Hospital Course Hospital Course: Joey Sarmiento DO PGY-1, [facility] Discharge Summary This is a 38 year old female with past medical history of HIV with CD4<20 on , EBV, CMV, HSV, COPD, asthma, heroin abuse, CHF with LVEF=35% on 04/11 who presented on 06/15/18 after being diagnosed with mycobacterium by liver biopsy by Dr. Joseph. Patient is well known to us and has been seen by [facility] many times over the past few years. On her most recent visit, patient was diagnosed and treated for Pneumocystis pneumonia and congestive heart failure exacerbation. On admission, she presented with chills, shortness of breath, wheezes, and cough with clear sputum for 2 days. Patient reported jaundice, heartburn and weakness in bilateral lower extremities. She denied fever, chest pain, heart palpitations, left arm pain, jaw pain, diaphoresis, abdominal pain, nausea, vomiting, constipation, diarrhea, dysuria, and hematuria. Recent admission was on 05/18/18 for Pneumocystis pneumonia and acute on chronic congestive heart failure. She went home without completing the antibiotic therapy. On 06/02/18, she was readmitted for the same diagnosis and for non compliance of treatment regimen. Liver biopsy was then done at that time due to persistently elevated LFT's. History of HIV with CD4<20 EBV, CMV, Hepatitis C ,HSV, COPD, asthma, heroin abuse, on Methadone, former smoker, congestive heart failure. Methadone dose was decrease from previous admission due to prolonged QT interval. 04/14/18 - ECHO- Moderately impaired systolic function, LVEF 35%, Trace AR/MR, Mild TR RVSP 40 mmHg, Trace pericardial effusion. 06/19/18- Lung Scan- Negative for pulmonary embolism, likely COPD. Pt was placed on regimen for tuberculosis treatment inpatient, including rifampin, isoniazid, pyrazinamide, ethambutol, and pyridoxine. ID was consulted, and also placed her on Mepron for PCP treatment. Pt was placed on airborne precautions and sputum cultures were obtained for acid-fast bacilli, preliminary reads demonstrated no growth. Pt was continued on home medications inpatient. Pt also had hyperkalemia on admission, so aldactone and zestril were held until levels normalized. Pt was also on methadone inpatient for hx of substance abuse. Patient left against medical advice on 06/21/18, and was instructed on risks and benefits of treatment , and leaving against medical advice. Pt was instructed to resume home medications, and continue with antibiotic therapy for TB treatment. Patient was also instructed to f/u with Dr Carter (her PCP), her Chest clinic, and an infectious disease specialist within 1-2 weeks of discharge for outpatient management. Upon consulting with Dr. Chou, pt would be adequately treated with TB antibiotic regimen outpatient. Discharge Exam - Head Exam Head Exam: ATRAUMATIC, NORMAL INSPECTION, NORMOCEPHALIC - Eye Exam Eye Exam: EOMI, Normal appearance, PERRL - ENT Exam ENT Exam: Mucous Membranes Moist - Respiratory Exam Respiratory Exam: NORMAL BREATHING PATTERN - Cardiovascular Exam Cardiovascular Exam: REGULAR RHYTHM, +S1, +S2 - GI/Abdominal Exam GI & Abdominal Exam: Normal Bowel Sounds, Soft, Unremarkable - Extremities Exam Extremities exam: full ROM, normal capillary refill, normal inspection, pedal pulses present - Neurological Exam Neurological exam: Alert, CN II-XII Intact, Oriented x3 - Skin Skin Exam: Dry, Intact, Normal Color, Warm Discharge Plan - Discharge Medications Prescriptions: Carvedilol [Coreg] 3.125 mg PO BID #28 tab Isoniazid [Niazid] 300 mg PO DAILY #30 tab Pyrazinamide 1,000 mg PO DAILY #30 tab Pyridoxine [Vitamin B6 50 mg Tab] 50 mg PO DAILY #30 tab - Follow Up Plan Condition: STABLE Disposition: HOME/ ROUTINE Instructions: Human Immunodeficiency Virus and Acquired Immune Deficiency Syndrome (DC), Human Immunodeficiency Virus and Acquired Immune Deficiency Syndrome (GEN) Referrals: Macario Carter MD [Primary Care Provider] -
== END 2018-06-21 20:50 | disposition left against medical advice (07) | DRG 708 ==
LOC: ED 18:16 → ERH 21:57 → 2RNO 06-16 01:02 → 5RSO 06-20 10:42
PROVIDERS: ADMIT Hospitalist; ATTEND Internal Medicine
PROC: 3E0F7GC Introduction of Other Therapeutic Substance into Respiratory Tract, Via Natural or Artificial Opening (ICD-10-PCS; principal; 2018-06-16)
DX: A31.0 Pulmonary mycobacterial infection (principal); B20 Human immunodeficiency virus [HIV] disease; B59 Pneumocystosis; I50.22 Chronic systolic (congestive) heart failure; J44.9 Chronic obstructive pulmonary disease, unspecified; E87.5 Hyperkalemia; B19.20 Unspecified viral hepatitis C without hepatic coma; F03.90 Unspecified dementia, unspecified severity, without behavioral disturbance, psychotic disturbance, mood disturbance, and anxiety; D61.818 Other pancytopenia; F11.10 Opioid abuse, uncomplicated; K59.00 Constipation, unspecified; K21.9 Gastro-esophageal reflux disease without esophagitis; G89.29 Other chronic pain; M54.9 Dorsalgia, unspecified; F41.9 Anxiety disorder, unspecified; M41.9 Scoliosis, unspecified; H35.30 Unspecified macular degeneration; Z91.19 Patient's noncompliance with other medical treatment and regimen; Z91.14 Patient's other noncompliance with medication regimen; Z87.01 Personal history of pneumonia (recurrent); Z87.891 Personal history of nicotine dependence

== ENCOUNTER 2018-08-12 01:33 | Inpatient (IN) | payer OTHER ==
[2018-08-12 01:40] VITALS: BMI 16.0
[2018-08-12] MEDS ORDERED: Albuterol-Ipratrop 3 mg / 0.5 (3 ml) UD ONE (01:55)
--- NOTE | 2018-08-12 02:08 | ED PDOC ---
Arrival/HPI - General Chief Complaint: Shortness Of Breath Time Seen by Provider: 08/12/18 01:56 Historian: Patient - History of Present Illness Narrative History of Present Illness (Text): 08/12/18 02:02 A 38 year old female, whose past medical history includes HIV, COPD, CHF, and substance abuse on methadone, presents to the emergency department complaining of shortness of breath since 2 days ago. Patient reports symptoms are constant and states she was discharged from [facility] 2 days ago from a 2 week treatment for COPD and pneumonia. Patient reports experiencing associated cough and subjective fever. Patient denies any fever, chills, chest pain, diarrhea, nausea, vomiting, urinary symptoms, back pain, neck pain, headache, dizziness, or any other complaints. PMD: Macario Jovel Time/Duration: Other (2 days ago) Symptom Onset: Gradual Symptom Course: Unchanged Activities at Onset: Light Context: Home Past Medical History - Provider Review Nursing Documentation Reviewed: Yes - Infectious Disease Hx of Infectious Diseases: None - Tetanus Immunization Tetanus Immunization: Unknown - Cardiac Hx Cardiac Disorders: Yes Hx Congestive Heart Failure: Yes - Pulmonary Hx Chronic Obstructive Pulmonary Disease (COPD): Yes Hx Pneumonia: Yes (PCP pneumoaie) - Neurological Hx Migraine: Yes - HEENT Hx Macular Degeneration: Yes - Renal Hx Renal Disorder: No - Endocrine/Metabolic Hx Endocrine Disorders: No - Hematological/Oncological Hx AIDS: Yes Hx Blood Transfusions: Yes Hx Blood Transfusion Reaction: No Hx Hepatitis C: Yes - Integumentary Hx Dermatological Disorder: Yes - Musculoskeletal/Rheumatological Hx Musculoskeletal Disorders: Yes Hx Back Pain: Yes Other/Comment: SCOLIOSIS - Gastrointestinal Hx Gastrointestinal Disorders: Yes Hx Gastroesophageal Reflux: Yes - Genitourinary/Gynecological Hx Genitourinary Disorders: Yes Hx Urinary Tract Infection: Yes - Psychiatric Hx Psychophysiologic Disorder: Yes Hx Anxiety: Yes Hx Substance Use: No Other/Comment: hx ivdu/cocaine stopped 6 yrs ago on methadone program. - Past Surgical History Past Surgical History: No Previous - Surgical History Other/Comment: neck surgery - Anesthesia Hx Anesthesia: Yes Hx Anesthesia Reactions: No Hx Malignant Hyperthermia: No - Suicidal Assessment Feels Threatened In Home Enviroment: No Family/Social History - Physician Review Nursing Documentation Reviewed: Yes Family/Social History: Unknown Family HX Smoking Status: Former Smoker Hx Alcohol Use: No Hx Substance Use: No Substance used: herion, cocaine Hx Substance Use Treatment: No Allergies/Home Meds Allergies/Adverse Reactions: Allergies levofloxacin [From Levaquin] Allergy (Verified 08/12/18 01:53) RASH Penicillins Allergy (Verified 08/12/18 01:53) RASH sulfamethoxazole [From Bactrim] Allergy (Verified 08/12/18 01:53) ANGIOEDEMA trimethoprim [From Bactrim] Allergy (Verified 08/12/18 01:53) ANGIOEDEMA azithromycin [From Zithromax] Adverse Reaction (Verified 08/12/18 01:53) RASH flexeril Adverse Reaction (Uncoded 08/12/18 01:53) RASH Home Medications: Home Meds Medication Instructions Recorded Confirmed Ascorbic Acid [Vitamin C] 500 mg PO DAILY 08/12/18 08/12/18 Azithromycin [Zithromax] 1,200 mg PO QWK 08/12/18 08/12/18 DiphenhydrAMINE [Benadryl] 25 mg PO Q6 PRN 08/12/18 08/12/18 Ledipasvir/Sofosbuvir [Harvoni 1 tab PO DAILY 08/12/18 08/12/18 90-400 mg Tablet] RX: Dapsone 100 mg PO DAILY 08/12/18 08/12/18 RX: Darunavir [Prezista] 800 mg PO DAILY 08/12/18 08/12/18 RX: Folic Acid 1 mg PO DAILY 08/12/18 08/12/18 RX: Megestrol [Megace] 40 mg PO Q6 08/12/18 08/12/18 RX: Methadone 100 mg PO DAILY 08/12/18 08/12/18 RX: Mirtazapine [Remeron] 30 mg PO DAILY 08/12/18 08/12/18 Ritonavir [Norvir] 100 mg PO DAILY 08/12/18 08/12/18 Review of Systems - Physician Review All systems were reviewed & negative as marked: Yes - Review of Systems Constitutional: Fevers. absent: Night Sweats Respiratory: SOB, Cough Cardiovascular: absent: Chest Pain Gastrointestinal: absent: Diarrhea, Nausea, Vomiting Genitourinary Female: absent: Urine Output Changes Musculoskeletal: absent: Back Pain, Neck Pain Skin: Other (warm to touch) Neurological: absent: Headache, Dizziness Physical Exam Vital Signs Reviewed: Yes Vital Signs Pulse Resp BP Pulse Ox 08/12/18 02:01 30 H 08/12/18 01:40 151 H 30 H 132/77 100 Temperature: Afebrile Blood Pressure: Normal Pulse: Tachycardic Respiratory Rate: Tachypneic Appearance: Positive for: Non-Toxic, Ill-Appearing, Uncomfortable Pain Distress: None Mental Status: Positive for: Alert and Oriented X 3, other (+speaking full sentences) - Systems Exam Head: Present: Atraumatic, Normocephalic Pupils: Present: PERRL Extroacular Muscles: Present: EOMI Conjunctiva: Present: Normal Mouth: Present: Moist Mucous Membranes Neck: Present: Normal Range of Motion Respiratory/Chest: Present: Good Air Exchange, Rhonchi (+diffused ronchi bilaterally). No: Wheezes Cardiovascular: Present: Tachycardic Abdomen: No: Tenderness, Rebound, Guarding Back: Present: Normal Inspection Upper Extremity: Present: Normal Inspection. No: Cyanosis, Edema Lower Extremity: No: Edema (no bilateral lower trace edema) Neurological: Present: GCS=15, CN II-XII Intact, Speech Normal Skin: Present: Warm, Dry, Normal Color. No: Rashes Psychiatric: Present: Alert, Oriented x 3, Normal Insight, Normal Concentration Medical Decision Making ED Course and Treatment: 08/12/18 02:04 Impression: 38 year old female presenting to the emergency department complaining of shortness of breath. Plan: -- VBG -- EKG -- Labs -- CBC -- Chest X-ray -- Tylenol -- Blood culture -- Bipap -- Urinalysis --Tylenol for fever -- Reassess and disposition Prior Visits: Notes and results from previous visits were reviewed. Progress Notes: Patient improved on Bipap. Labs significant for BNP 12,000, trop 0.14. CXR interpreted by me as CHF w/? superimposed pneumonia. Plan cover w/abx and admit for further evaluation and management. Results d/w patient who is agreeable w/POC. 08/12/18 4:[address] Gustafson who accepts the patient with 20 mg of Lasix and vanco, since patient is HCAP w/multiple abx allergies, Senior resident states she will call Dr. Gustafson to consult re further anitbiotics. - Scribe Statement The provider has reviewed the documentation as recorded by the Scribe Linnea Jessee All medical record entries made by the Kobe were at my direction and pers onally dictated by me. I have reviewed the chart and agree that the record accurately reflects my personal performance of the history, physical exam, medical decision making, and the department course for this patient. I have also personally directed, reviewed, and agree with the discharge instructions and disposition. Disposition/Present on Arrival - Present on Arrival Any Indicators Present on Arrival: No History of DVT/PE: No History of Uncontrolled Diabetes: No Urinary Catheter: No History of Decub. Ulcer: No History Surgical Site Infection Following: None - Disposition Have Diagnosis and Disposition been Completed?: Yes Diagnosis: Pneumonia, Congestive heart failure Disposition: HOSPITALIZED Disposition Time: 04:00 Patient Plan: Admission Patient Problems: Current Active Problems Problem Status Onset Pneumonia Acute Congestive heart failure Chronic Condition: FAIR
[2018-08-12 02:41] LABS: BASO # 0.01 K/mm3 (0.0-2.0); BASO % 0.1 % (0.0-3.0); GRAN # 13.15 (1.4-6.5); GRAN % 87.1 % (50.0-68.0); LYMPH # 0.6 (1.2-3.4); LYMPH % 4.2 % (22.0-35.0); MEAN CORPUSCULAR HEMOGLOBIN 26.2 pg (25.0-35.0); MEAN CORPUSCULAR HGB CONC 30.8 g/dl (31.0-37.0); MEAN PLATELET VOLUME 10.8 fl (7.0-11.0); MONO # 1.3 (0.1-0.6); MONO % 8.6 % (1.0-6.0); PLATELET COUNT 132 10^3/uL (120.0-450.0); RBC 3.44 10^6/uL (3.5-6.1); RED CELL DISTRIBUTION WIDTH 17.3 % (11.5-14.5); WHITE BLOOD COUNT 15.1 10^3/ul (4.5-11.0)
[2018-08-12 03:05] LABS: ALB/GLOB RATIO 0.9 (1.1-1.8); ALBUMIN 2.8 g/dL (3.0-4.8); ALT/SGPT 27 U/L (7-56); AST/SGOT 44 U/L (14-36); BLOOD UREA NITROGEN 30 mg/dL (7-21); CALCIUM 9.3 mg/dL (8.4-10.5); GFR NON-AFRICAN AMERICAN > 60
[2018-08-12 03:29] LABS: VENOUS BLOOD GAS BASE EXCESS 1.9 mmol/L (0.0-2.0); VENOUS BLOOD GAS PO2 49 mm/Hg (30-55); VENOUS BLOOD PH 7.26 (7.32-7.43)
[2018-08-12 03:33] LABS: B-TYPE NATRIURETIC PEPTIDE 12000 pg/mL (0-450); TROPONIN I 0.14 ng/mL
[2018-08-12 03:48] LABS: MEAN CELL VOLUME 84.9 fl (80.0-105.0)
[2018-08-12 03:50] LABS: ATYPICAL LYMPHOCYTE 2 % (0.0-0.0); BAND 5 % (0-2); LYMPHOCYTE 5 % (22.0-35.0); NEUTROPHIL 85 % (50.0-70.0)
[2018-08-12 03:51] LABS: ANISOCYTOSIS SLIGHT; MONOCYTE 1 % (1.0-6.0); MYELOCYTE 2 %; PLATELET ESTIMATE NORMAL (NORMAL)
[2018-08-12 03:52] LABS: POIKILOCYTOSIS SLIGHT
[2018-08-12 03:55] LABS: OVALOCYTES SLIGHT
[2018-08-12] MEDS ORDERED: Vancomycin 1gm in NS 250ml 1 GM/250 ML BAG IVPB STA (04:09)
--- NOTE | 2018-08-12 04:16 | CP.PCM.HP ---
<Jose Manuel Stovall - Last Filed: 08/12/18 05:34> History of Present Illness - History of Present Illness History of Present Illness: Jose Manuel Stovall, PGY-1 History and Physical for Hospitalist Service CC: Shortness of Breath HPI: 38 year old female with past medical history of HIV with CD4<20 on 03/11/18, EBV, CMV, HSV, COPD, asthma, heroin abuse, CHF with LVEF=35% on 04/11 presents after being diagnosed with mycobacterium by liver biopsy by Dr. Joseph. On her most recent visit, patient was diagnosed and treated for Pneumocystis pneumonia and congestive heart failure exacerbation. Today, she presents with chills, shortness of breath, wheezes, and dry cough. Patient reports weakness in bilateral lower extremities. She denies fever, chest pain, heart palpitations, left arm pain, jaw pain, diaphoresis, abdominal pain, nausea, vomiting, constipation, diarrhea, dysuria, and hematuria. Patient recently discharged from [facility] [place] 2 days prior for PNA. Recent PICC line removed on R arm a few days ago in [facility] [place]. Patient presents with as bag full of medications which patient states she takes, but many are in 2017. [id number] was negative except for what was listed above. PMH: as stated above PSH: right anterior neck surgery for abscess I and D Allergies: bactrim, levofloaxicin, penicillin, azithromycin, flexeril SHx: IVDA, former smoker of 1 ppd for 20 years. Denies alcohol use. Meds: See DEC PMD: Dr. Carter ID: Dr. Trevizo Pharmacy: [facility] Insurance: [facility] Medicaid Present on Admission - Present on Admission Any Indicators Present on Admission: No Review of Systems - Review of Systems Review of Systems: 12 point ROS completed and negative except as described in HPI. Past Patient History - Infectious Disease Hx of Infectious Diseases: None - Tetanus Immunizations Tetanus Immunization: Unknown - Past Social History Smoking Status: Former Smoker - CARDIAC Hx Cardiac Disorders: Yes Hx Congestive Heart Failure: Yes - PULMONARY Hx Chronic Obstructive Pulmonary Disease (COPD): Yes Hx Pneumonia: Yes (PCP pneumoaie) - NEUROLOGICAL Hx Migraine: Yes - HEENT Hx Macular Degeneration: Yes - RENAL Hx Chronic Kidney Disease: No - ENDOCRINE/METABOLIC Hx Endocrine Disorders: No - HEMATOLOGICAL/ONCOLOGICAL Hx AIDS: Yes Hx Blood Transfusions: Yes Hx Blood Transfusion Reaction: No Hx Hepatitis C: Yes - INTEGUMENTARY Hx Dermatological Problems: Yes - MUSCULOSKELETAL/RHEUMATOLOGICAL Hx Musculoskeletal Disorders: Yes Hx Back Pain: Yes Other/Comment: SCOLIOSIS - GASTROINTESTINAL Hx Gastrointestinal Disorders: Yes Hx Gastroesophageal Reflux: Yes - GENITOURINARY/GYNECOLOGICAL Hx Genitourinary Disorders: Yes Hx Urinary Tract Infection: Yes - PSYCHIATRIC Hx Psychophysiologic Disorder: Yes Hx Anxiety: Yes Hx Substance Use: No Other/Comment: hx ivdu/cocaine stopped 6 yrs ago on methadone program. - SURGICAL HISTORY Other/Comment: neck surgery - ANESTHESIA Hx Anesthesia: Yes Hx Anesthesia Reactions: No Hx Malignant Hyperthermia: No Meds Allergies/Adverse Reactions: Allergies Allergy/AdvReac Type Severity Reaction Status Date / Time levofloxacin [From Levaquin] Allergy RASH Verified 08/12/18 01:53 Penicillins Allergy RASH Verified 08/12/18 01:53 sulfamethoxazole Allergy ANGIOEDEMA Verified 08/12/18 01:53 [From Bactrim] trimethoprim [From Bactrim] Allergy ANGIOEDEMA Verified 08/12/18 01:53 azithromycin [From Zithromax] AdvReac RASH Verified 08/12/18 01:53 flexeril AdvReac RASH Uncoded 08/12/18 01:53 Physical Exam - Constitutional Appears: Toxic, In Acute Distress, Older Than Stated Age - Eye Exam Eye Exam: EOMI, Normal appearance - ENT Exam ENT Exam: Mucous Membranes Moist, Normal Exam - Neck Exam Neck exam: Positive for: Normal Inspection - Respiratory Exam Respiratory Exam: Accessory Muscle Use, Decreased Breath Sounds, Prolonged Expiratory Phase, Wheezes (bilaterally, L>R). absent: Respiratory Distress - Cardiovascular Exam Cardiovascular Exam: RRR, +S1, +S2 - GI/Abdominal Exam GI & Abdominal Exam: Hypoactive Bowel Sounds, Soft. absent: Distended, Guarding, Rebound, Tenderness - Extremities Exam Extremities exam: Positive for: calf tenderness, pedal edema (ankle edema 3+) - Back Exam Back exam: absent: CVA tenderness (L), CVA tenderness (R), paraspinal tenderness, vertebral tenderness - Neurological Exam Neurological exam: Alert, Oriented x3 - Skin Skin Exam: Dry, Intact, Normal Color, Warm Results - Vital Signs Recent Vital Signs: Last Vital Signs Temp 101.5 F H 08/12/18 02:25 Pulse 128 H 08/12/18 03:26 Resp 28 H 08/12/18 03:26 BP 118/68 08/12/18 03:26 Pulse Ox 92 L 08/12/18 03:26 - Labs Result Diagrams: 08/12/18 01:59 08/12/18 01:59 Labs: Laboratory Results - last 24 hr 08/12/18 08/12/18 08/12/18 01:59 01:59 02:34 WBC 15.1 H D RBC 3.44 L Hgb 9.0 L Hct 29.2 L MCV 84.9 D MCH 26.2 MCHC 30.8 L RDW 17.3 H Plt Count 132 MPV 10.8 Gran % 87.1 H Lymph % (Auto) 4.2 L Rankin % (Auto) 8.6 H Eos % (Auto) 0.0 L Baso % (Auto) 0.1 Gran # 13.15 H Lymph # (Auto) 0.6 L Rankin # (Auto) 1.3 H Eos # (Auto) 0.0 Baso # (Auto) 0.01 Neutrophils % (Manual) 85 H Band Neutrophils % 5 H Lymphocytes % (Manual) 5 L Atypical Lymphs % 2 H Monocytes % (Manual) 1 Myelocytes % 2 Platelet Evaluation Normal Poikilocytosis (manual Slight Anisocytosis (manual) Slight Ovalocytes Slight pO2 49 VBG pH 7.26 L VBG pCO2 69.0 H* VBG HCO3 31.0 H VBG Total CO2 33.1 H VBG O2 Sat (Calc) 82.2 H VBG Base Excess 1.9 VBG Potassium 4.4 Glucose 92 Lactate 0.8 FiO2 21.0 Sodium 139 140.0 Potassium 4.4 Chloride 106 111.0 H Carbon Dioxide 31 Anion Gap 7 L BUN 30 H Creatinine 0.6 L Est GFR ( Amer) > 60 Est GFR (Non-Af Amer) > 60 Random Glucose 95 Calcium 9.3 Magnesium 1.6 L Total Bilirubin 0.4 AST 44 H D ALT 27 Alkaline Phosphatase 52 Lactate Dehydrogenase 1438 H Total Creatine Kinase 30 L Troponin I 0.14 H* D NT-Pro-B Natriuret Pep 62311 H Total Protein 6.2 Albumin 2.8 L Globulin 3.3 Albumin/Globulin Ratio 0.9 L Venous Blood Potassium 4.4 Assessment & Plan - Assessment and Plan (Free Text) Assessment: Assessment: 38 year old female with past medical history of HIV with CD4 of 1 on 03/11/18, EBV, CMV, HSV, COPD, asthma, heroin abuse, CHF with LVEF=35% on 04/11 presents after being diagnosed with mycobacterium by liver biopsy by Dr. Joseph. Patient to receive 20 mg IV Lasix and 1 gm Vanco while in ED. Please obtain records from [facility] [place] from recent admission regarding antibiotics. Plan: SIRS 2/2 PNA vs CHF Lactate 0.8, febrile 101.5, tachycardia @ 149 bpm Leukocytosis 15.1 likely reactive, 5% bands. Recently discharged from [facility] [place] for PNA Unknown if on steroids or received while on previous admission will continue to monitor Panculture Merem and Doxy based on patient's allergy profile for HCAP and atypical coverage Elevated Troponin likely 2/2 to demand ischemia 2/2 SOB induced tachycardia -Last echo in 03/2018 showed LVEF: 35% - ASA 81 Lasix 20 IV daily - ProBNP [id number] -EKG: sinus tachycardia @149 bpm, no ST wave elevations, QTc: 516 -BUN/Cr: 30/0.6 -Troponin:0.14 -Continue coreg zestril 5 mg daily -Heart healthy diet -Cardiology, Dr. Veliz, consulted for recommendations. - trend trops COPD -extensive smoking history -O2 saturation: 95% on BiPAP currently -continue to moniter -consider ABG based on saturation Mycobacterium Avium Infection with HIV -Liver biopsy from 06/10 showed mycobacterium infection. -Patient's last CD4 count in 03/11/18 was <20. Last CD8 was 311. HIV viral load last in 06/2017 was [id number] copies. -Patient has history of positive EBV Ab, Hepatitis C, HSV, parvovirus B19, mycoplasma IgG -Chest X ray: pulmonary artery congestion, worsened LLQ infiltration as compared to previous. F/U official read -Vanc in ED -ID, Dr. Chou, consulted for recommendations. -f/u UDS Bilateral LE pain - currently on Megesterol, high risk of DVT - recommend to stop Megesterol due to hx of CHF - f/u duplex U/S History of heroin abuse -On methadone daily on previous visit - 100 mg on discharge - confirm with clinic in AM Normocytic anemia -Hgb: 9.0. Baseline is 9.3-10.1 -Likely due to anemia of chronic disease. -Continue to monitor. DVT prophylaxis: Lovenox 40 mg daily GI prophylaxis: Protonix 40 mg daily Patient seen, case reviewed and plan approved by Dr. Gustafson. Jose Manuel Stovall, PGY-1 <Chon Gustafson - Last Filed: 08/12/18 06:19> Results - Vital Signs Recent Vital Signs: Last Vital Signs Temp 98.6 F 08/12/18 05:22 Pulse 118 H 08/12/18 04:42 Resp 18 08/12/18 05:47 BP 122/96 H 08/12/18 04:42 Pulse Ox 96 08/12/18 04:42 - Labs Result Diagrams: 08/12/18 01:59 08/12/18 01:59 Labs: Laboratory Results - last 24 hr 08/12/18 08/12/18 08/12/18 01:59 01:59 02:34 WBC 15.1 H D RBC 3.44 L Hgb 9.0 L Hct 29.2 L MCV 84.9 D MCH 26.2 MCHC 30.8 L RDW 17.3 H Plt Count 132 MPV 10.8 Gran % 87.1 H Lymph % (Auto) 4.2 L Rankin % (Auto) 8.6 H Eos % (Auto) 0.0 L Baso % (Auto) 0.1 Gran # 13.15 H Lymph # (Auto) 0.6 L Rankin # (Auto) 1.3 H Eos # (Auto) 0.0 Baso # (Auto) 0.01 Neutrophils % (Manual) 85 H Band Neutrophils % 5 H Lymphocytes % (Manual) 5 L Atypical Lymphs % 2 H Monocytes % (Manual) 1 Myelocytes % 2 Platelet Evaluation Normal Poikilocytosis (manual Slight Anisocytosis (manual) Slight Ovalocytes Slight pO2 49 VBG pH 7.26 L VBG pCO2 69.0 H* VBG HCO3 31.0 H VBG Total CO2 33.1 H VBG O2 Sat (Calc) 82.2 H VBG Base Excess 1.9 VBG Potassium 4.4 Glucose 92 Lactate 0.8 FiO2 21.0 Sodium 139 140.0 Potassium 4.4 Chloride 106 111.0 H Carbon Dioxide 31 Anion Gap 7 L BUN 30 H Creatinine 0.6 L Est GFR ( Amer) > 60 Est GFR (Non-Af Amer) > 60 Random Glucose 95 Calcium 9.3 Magnesium 1.6 L Total Bilirubin 0.4 AST 44 H D ALT 27 Alkaline Phosphatase 52 Lactate Dehydrogenase 1438 H Total Creatine Kinase 30 L Troponin I 0.14 H* D NT-Pro-B Natriuret Pep 39506 H Total Protein 6.2 Albumin 2.8 L Globulin 3.3 Albumin/Globulin Ratio 0.9 L Venous Blood Potassium 4.4 Urine Color Urine Appearance Urine pH Ur Specific [place] Urine Protein Urine Glucose (UA) Urine Ketones Urine Blood Urine Nitrate Urine Bilirubin Urine Urobilinogen Ur Leukocyte Esterase Urine RBC Urine WBC Ur Epithelial Cells Amorphous Sediment Urine Bacteria Hyaline Casts Urine HCG, Qual Ur Phencyclidine Scrn 08/12/18 08/12/18 05:13 05:13 WBC RBC Hgb Hct MCV MCH MCHC RDW Plt Count MPV Gran % Lymph % (Auto) Rankin % (Auto) Eos % (Auto) Baso % (Auto) Gran # Lymph # (Auto) Rankin # (Auto) Eos # (Auto) Baso # (Auto) Neutrophils % (Manual) Band Neutrophils % Lymphocytes % (Manual) Atypical Lymphs % Monocytes % (Manual) Myelocytes % Platelet Evaluation Poikilocytosis (manual Anisocytosis (manual) Ovalocytes pO2 VBG pH VBG pCO2 VBG HCO3 VBG Total CO2 VBG O2 Sat (Calc) VBG Base Excess VBG Potassium Glucose Lactate FiO2 Sodium Potassium Chloride Carbon Dioxide Anion Gap BUN Creatinine Est GFR ( Amer) Est GFR (Non-Af Amer) Random Glucose Calcium Magnesium Total Bilirubin AST ALT Alkaline Phosphatase Lactate Dehydrogenase Total Creatine Kinase Troponin I NT-Pro-B Natriuret Pep Total Protein Albumin Globulin Albumin/Globulin Ratio Venous Blood Potassium Urine Color Yellow Urine Appearance Clear Urine pH 6.0 Ur Specific [place] 1.015 Urine Protein 100 H Urine Glucose (UA) Negative Urine Ketones Negative Urine Blood Trace-lysed H Urine Nitrate Negative Urine Bilirubin Negative Urine Urobilinogen 0.2 Ur Leukocyte Esterase Negative Urine RBC 0 - 2 Urine WBC 1 - 3 Ur Epithelial Cells 3 - 4 Amorphous Sediment Rare Urine Bacteria Occ Hyaline Casts 0 - 2 Urine HCG, Qual Negative Ur Phencyclidine Scrn Negative Attending/Attestation - Attestation I have personally seen and examined this patient.: Yes I have fully participated in the care of the patient.: Yes I have reviewed all pertinent clinical information: Yes
[2018-08-12] MEDS ORDERED: Aspirin 325 mg EC Tablets PO STA (05:36)
[2018-08-12] MEDS ORDERED: MethylPREDNISolone 40 mg Vial IVP SCH (05:45)
[2018-08-12 05:48] LABS: HCG,QUALITATIVE URINE NEGATIVE (NEGATIVE); URINE APPEARANCE CLEAR (CLEAR); URINE COLOR YELLOW (YELLOW)
[2018-08-12 05:49] LABS: URINE BILIRUBIN NEGATIVE (NEGATIVE); URINE BLOOD TRACE-LYSED (NEGATIVE); URINE GLUCOSE (UA) NEGATIVE (NEGATIVE); URINE LEUKOCYTE ESTERASE NEGATIVE Leu/uL (NEGATIVE); URINE PROTEIN 100 mg/dL (<30 mg/dL); URINE UROBILINOGEN 0.2 E.U./dL (<1 E.U./dL)
[2018-08-12 05:54] LABS: URINE AMORPHOUS SEDIMENT RARE; URINE BACTERIA OCC (NEG); URINE HYALINE CAST 0 - 2 /hpf; URINE RBC 0 - 2 /hpf (0-2)
[2018-08-12 06:07] LABS: PHENCYCLIDINE, UR NEGATIVE (NEGATIVE)
[2018-08-12] MEDS ORDERED: Magnesium Oxide 400 mg Tab UD PO STA (06:16)
[2018-08-12 06:22] LABS: BARBITURATES, UR NEGATIVE (NEGATIVE); BENZODIAZEPINES, UR NEGATIVE (NEGATIVE); OPIATES, UR NEGATIVE (NEGATIVE)
[2018-08-12] MEDS ORDERED: Aztreonam 1 Gm in NS 100mL 100 ML IVPB SCH (06:30)
[2018-08-12] MEDS: Arformoterol 15 mcg/2 ml Inh Sol IH SCH ×2 (08:08→19:48)
[2018-08-12] MEDS: Budesonide 0.5 mg/2 ml Inhal Susp UD IH SCH ×2 (08:09→19:49)
[2018-08-12] MEDS: Sodium Chloride 0.9% 1,000 ML IV SCH ×2 (08:10→21:59)
[2018-08-12] MEDS ORDERED: Sodium Chloride 0.9% 500 ML IV STA ×2 (09:33→11:05)
[2018-08-12] MEDS: Primaquine 26.3 mg Tab PO SCH (09:36)
[2018-08-12] MEDS: Enoxaparin 40 mg Syringe SC SCH ×2 (09:37→21:56)
[2018-08-12] MEDS: MethylPREDNISolone 40 mg Vial IVP SCH (09:38)
--- NOTE | 2018-08-12 09:46 | CARD ---
APPROVED REPORT Date of service: 08/12/2018 EKG Measurement Heart [id number] <Conclusion> Sinus tachycardia Nonspecific ST and T wave abnormality Abnormal ECG
[2018-08-12 09:47] LABS: BASO # 0.01 K/mm3 (0.0-2.0); BASO % 0.1 % (0.0-3.0); LYMPH # 0.2 (1.2-3.4); LYMPH % 1.4 % (22.0-35.0); MEAN CELL VOLUME 84.4 fl (80.0-105.0); MEAN CORPUSCULAR HEMOGLOBIN 25.9 pg (25.0-35.0); MEAN CORPUSCULAR HGB CONC 30.7 g/dl (31.0-37.0); MEAN PLATELET VOLUME 10.5 fl (7.0-11.0); PLATELET COUNT 102 10^3/uL (120.0-450.0); RBC 3.47 10^6/uL (3.5-6.1); RED CELL DISTRIBUTION WIDTH 17.8 % (11.5-14.5); WHITE BLOOD COUNT 14.1 10^3/ul (4.5-11.0)
[2018-08-12 09:56] LABS: ALB/GLOB RATIO 0.9 (1.1-1.8); ALBUMIN 2.9 g/dL (3.0-4.8); ALT/SGPT 25 U/L (7-56); AST/SGOT 39 U/L (14-36); BLOOD UREA NITROGEN 28 mg/dL (7-21); CALCIUM 9.3 mg/dL (8.4-10.5); GFR NON-AFRICAN AMERICAN > 60
[2018-08-12] MEDS ORDERED: MEROPENEM 500 MG in NS 500 MG/50 ML BAG IVPB SCH (10:00)
[2018-08-12] MEDS ORDERED: Enoxaparin 40 mg Syringe SC SCH (10:00)
--- NOTE | 2018-08-12 10:09 | RAD ---
Date of service: 08/12/2018 HISTORY: sob COMPARISON: 06/15/2018 FINDINGS: LUNGS: Bilateral lower lobe infiltrates. Nodular densities in the right upper lobe. Findings are most consistent with a multi focal pneumonia PLEURA: No significant pleural effusion identified, no pneumothorax apparent. CARDIOVASCULAR: No atherosclerotic calcification present Normal. OSSEOUS STRUCTURES: No significant abnormalities. VISUALIZED UPPER ABDOMEN: Normal. OTHER FINDINGS: None. IMPRESSION: Bilateral lower lobe infiltrates. Nodular densities in the right upper lobe. Findings are most consistent with a multi focal pneumonia
[2018-08-12 11:15] LABS: ARTERIAL BLOOD GAS HCO3 29.2 mmol/L (21-28); ARTERIAL BLOOD GAS HEMOGLOBIN 8.3 g/dL (11.7-17.4); ARTERIAL BLOOD GAS O2 CAPACITY 11.4 mL/dl (16-24); ARTERIAL BLOOD GAS O2 SAT 96.9 % (95-98); ARTERIAL BLOOD GAS PCO2 42 mm/Hg (35-45); ARTERIAL BLOOD GAS PH 7.45 (7.35-7.45); ARTERIAL BLOOD GAS TCO2 30.5 mmol.L (22-28)
--- NOTE | 2018-08-12 12:39 | CP.PCM.CON ---
History of Present Illness - History of Present Illness History of Present Illness: PULMONARY CONSULT HPI Patient is 38yo female with PMhx of HIV/AIDS, CD4<20 on 03/11/18, EBV, CMV, HSV, COPD, asthma, heroin abuse, CHF with LVEF=35%, presents with weakness, fatigue, and worsening SOB for last 4 days. Pt was just recently discharged from [facility], for PNA, 4 days ago. Pt reports she has gotten progressively worsening SOB since discharge, cough that is non productive, and associated malaise, fatigue. Pt denies fever, chills, chest pain, night sweats. Notes 20lbs unintentional weight loss over last 1 year. PMH: HIV/AIDS, CD4<20 on 03/11/18, EBV, CMV, HSV, COPD, asthma, heroin abuse, CHF with LVEF=35%, PSH: right anterior neck surgery for abscess I and D Allergies: bactrim, levofloaxicin, penicillin, azithromycin, flexeril SHx: IVDA, former smoker of 1 ppd for 20 years. Denies alcohol use. Meds: See MAR Review of Systems - Review of Systems Review of Systems: PER HPI Past Patient History - Infectious Disease Hx of Infectious Diseases: None - Tetanus Immunizations Tetanus Immunization: Unknown - Past Social History Smoking Status: Current Some Days Smoker - CARDIAC Hx Congestive Heart Failure: Yes Hx Hypertension: Yes Hx Peripheral Edema: Yes - PULMONARY Hx Asthma: Yes Hx Bronchitis: Yes Hx Chronic Obstructive Pulmonary Disease (COPD): Yes Hx Pneumonia: Yes - NEUROLOGICAL Hx Dizziness: Yes - HEENT Hx Macular Degeneration: Yes - RENAL Hx Chronic Kidney Disease: No - ENDOCRINE/METABOLIC Hx Endocrine Disorders: No - HEMATOLOGICAL/ONCOLOGICAL Hx Anemia: Yes Hx Hepatitis C: Yes Hx Human Immunodeficiency Virus (HIV): Yes - INTEGUMENTARY Hx Dermatological Problems: Yes - MUSCULOSKELETAL/RHEUMATOLOGICAL Hx Musculoskeletal Disorders: Yes (Scoliosis) Hx Arthritis: Yes Hx Back Pain: Yes Hx Falls: No - GASTROINTESTINAL Hx Gastroesophageal Reflux: Yes - GENITOURINARY/GYNECOLOGICAL Hx Urinary Tract Infection: Yes - PSYCHIATRIC Hx Anxiety: Yes Hx Post Traumatic Stress Disorder: Yes Hx Substance Use: No - SURGICAL HISTORY Other/Comment: neck surgery - ANESTHESIA Hx Anesthesia: Yes Hx Anesthesia Reactions: No Hx Malignant Hyperthermia: No Meds Allergies/Adverse Reactions: Allergies Allergy/AdvReac Type Severity Reaction Status Date / Time levofloxacin [From Levaquin] Allergy RASH Verified 10/19/18 01:53 Penicillins Allergy RASH Verified 08/12/18 01:53 sulfamethoxazole Allergy ANGIOEDEMA Verified 08/12/18 01:53 [From Bactrim] trimethoprim [From Bactrim] Allergy ANGIOEDEMA Verified 08/12/18 01:53 azithromycin [From Zithromax] AdvReac RASH Verified 08/12/18 01:53 flexeril AdvReac RASH Uncoded 08/12/18 01:53 - Medications Medications: Current Medications Acetaminophen (Tylenol 325mg Tab) 650 mg PO Q4H PRN PRN Reason: Fever >100.4 F Last Admin: 08/12/18 10:40 Dose: 650 mg Arformoterol Tartrate (Brovana) 15 mcg IH [id number] [facility] Last Admin: 08/12/18 08:08 Dose: Not Given Aspirin (Ecotrin) 81 mg PO DAILY [facility] Budesonide (Pulmicort Respules) 0.5 mg IH [id number] [facility] Last Admin: 08/12/18 08:09 Dose: Not Given Clonazepam (Klonopin) 0.5 mg PO TID [facility]; Protocol Last Admin: 08/12/18 12:14 Dose: 0.5 mg Enoxaparin Sodium (Lovenox) 40 mg SC Q12 [facility]; Protocol Last Admin: 08/12/18 09:37 Dose: 40 mg Furosemide (Lasix) 20 mg IVP DAILY [facility] Last Admin: 08/12/18 09:37 Dose: 20 mg Doxycycline Hyclate 100 mg/ (Sodium Chloride) 100 mls @ 100 mls/hr IVPB Q12 [facility]; Protocol Last Admin: 08/12/18 09:39 Dose: 100 mls/hr Sodium Chloride (Sodium Chloride 0.9%) 1,000 mls @ 75 mls/hr IV .[id number] [facility] Last Admin: 08/12/18 08:10 Dose: 75 mls/hr Clindamycin Phosphate 900 mg/ (Sodium Chloride) 106 mls @ 106 mls/hr IVPB Q8 [facility]; Protocol Stop: 08/21/18 14:01 Meropenem (Merrem Iv 1 Gm Premix) 1 gm in 50 mls @ 100 mls/hr IVPB Q8 [facility]; Protocol Stop: 08/21/18 14:01 Ipratropium [place] (Atrovent) 0.5 mg IH [id number] PRN PRN Reason: Shortness of Breath Levalbuterol HCl (Xopenex) 0.63 mg IH [id number] PRN PRN Reason: Shortness of Breath Methadone HCl (Methadone) 100 mg PO DAILY [facility] Last Admin: 08/12/18 09:11 Dose: Not Given Methylprednisolone (Solu-Medrol) 20 mg IVP DAILY [facility] Last Admin: 08/12/18 09:38 Dose: 20 mg Pantoprazole Sodium (Protonix Inj) 40 mg IVP DAILY [facility] Last Admin: 08/12/18 09:38 Dose: 40 mg Primaquine Phosphate (Primaquine) 26.3 mg PO DAILY [facility]; Protocol Stop: 08/21/18 10:01 Last Admin: 08/12/18 09:36 Dose: 26.3 mg Physical Exam - Constitutional Appears: Non-toxic, No Acute Distress, Cachectic, Chronically Ill - Head Exam Head Exam: NORMAL INSPECTION - Eye Exam Eye Exam: Normal appearance - ENT Exam ENT Exam: Mucous Membranes Moist - Neck Exam Neck exam: Positive for: Full Rom - Respiratory Exam Respiratory Exam: Decreased Breath Sounds, NORMAL BREATHING PATTERN - Cardiovascular Exam Cardiovascular Exam: REGULAR RHYTHM, +S1, +S2 - GI/Abdominal Exam GI & Abdominal Exam: Normal Bowel Sounds, Soft - Neurological Exam Neurological exam: Alert, Oriented x3 - Psychiatric Exam Psychiatric exam: Normal Mood - Skin Skin Exam: Normal Color, Warm Results - Vital Signs Recent Vital Signs: Last Vital Signs Temp 101.9 F H 08/12/18 10:40 Pulse 133 H 08/12/18 12:00 Resp 20 08/12/18 12:00 BP 100/62 08/12/18 12:00 Pulse Ox 94 L 08/12/18 10:17 - Labs Result Diagrams: 08/12/18 09:30 08/12/18 09:30 Labs: Laboratory Results - last 24 hr 08/12/18 08/12/18 08/12/18 01:59 01:59 02:34 WBC 15.1 H D RBC 3.44 L Hgb 9.0 L Hct 29.2 L MCV 84.9 D MCH 26.2 MCHC 30.8 L RDW 17.3 H Plt Count 132 MPV 10.8 Gran % 87.1 H Lymph % (Auto) 4.2 L [place] % (Auto) 8.6 H Eos % (Auto) 0.0 L Baso % (Auto) 0.1 Gran # 13.15 H Lymph # (Auto) 0.6 L [place] # (Auto) 1.3 H Eos # (Auto) 0.0 Baso # (Auto) 0.01 Neutrophils % (Manual) 85 H Band Neutrophils % 5 H Lymphocytes % (Manual) 5 L Atypical Lymphs % 2 H Monocytes % (Manual) 1 Myelocytes % 2 Platelet Evaluation Normal Poikilocytosis (manual Slight Anisocytosis (manual) Slight Ovalocytes Slight pCO2 pO2 49 HCO3 ABG pH ABG Total CO2 ABG O2 Saturation ABG O2 Content ABG Base Excess ABG Hemoglobin ABG Carboxyhemoglobin POC ABG HHb (Measured) ABG Methemoglobin ABG O2 Capacity VBG pH 7.26 L VBG pCO2 69.0 H* VBG HCO3 31.0 H VBG Total CO2 33.1 H VBG O2 Sat (Calc) 82.2 H VBG Base Excess 1.9 VBG Potassium 4.4 Hgb O2 Saturation Glucose 92 Lactate 0.8 FiO2 21.0 Sodium 139 140.0 Potassium 4.4 Chloride 106 111.0 H Carbon Dioxide 31 Anion Gap 7 L BUN 30 H Creatinine 0.6 L Est GFR ( Amer) > 60 Est GFR (Non-Af Amer) > 60 Random Glucose 95 Lactic Acid Calcium 9.3 Magnesium 1.6 L Total Bilirubin 0.4 AST 44 H D ALT 27 Alkaline Phosphatase 52 Lactate Dehydrogenase 1438 H Total Creatine Kinase 30 L Troponin I 0.14 H* D NT-Pro-B Natriuret Pep 76276 H Total Protein 6.2 Albumin 2.8 L Globulin 3.3 Albumin/Globulin Ratio 0.9 L Beta HCG, Quant Venous Blood Potassium 4.4 Urine Color Urine Appearance Urine pH Ur Specific [place] Urine Protein Urine Glucose (UA) Urine Ketones Urine Blood Urine Nitrate Urine Bilirubin Urine Urobilinogen Ur Leukocyte Esterase Urine RBC Urine WBC Ur Epithelial Cells Amorphous Sediment Urine Bacteria Hyaline Casts Urine HCG, Qual Urine Opiates Screen Urine Methadone Screen Ur Barbiturates Screen Ur Phencyclidine Scrn Ur Amphetamines Screen U Benzodiazepines Scrn U Oth Cocaine Metabols U Cannabinoids Screen 08/12/18 08/12/18 08/12/18 05:13 05:13 09:30 WBC RBC Hgb Hct MCV MCH MCHC RDW Plt Count MPV Gran % Lymph % (Auto) [place] % (Auto) Eos % (Auto) Baso % (Auto) Gran # Lymph # (Auto) [place] # (Auto) Eos # (Auto) Baso # (Auto) Neutrophils % (Manual) Band Neutrophils % Lymphocytes % (Manual) Atypical Lymphs % Monocytes % (Manual) Myelocytes % Platelet Evaluation Poikilocytosis (manual Anisocytosis (manual) Ovalocytes pCO2 pO2 HCO3 ABG pH ABG Total CO2 ABG O2 Saturation ABG O2 Content ABG Base Excess ABG Hemoglobin ABG Carboxyhemoglobin POC ABG HHb (Measured) ABG Methemoglobin ABG O2 Capacity VBG pH VBG pCO2 VBG HCO3 VBG Total CO2 VBG O2 Sat (Calc) VBG Base Excess VBG Potassium Hgb O2 Saturation Glucose Lactate FiO2 Sodium Potassium Chloride Carbon Dioxide Anion Gap BUN Creatinine Est GFR ( Amer) Est GFR (Non-Af Amer) Random Glucose Lactic Acid 1.4 Calcium Magnesium Total Bilirubin AST ALT Alkaline Phosphatase Lactate Dehydrogenase Total Creatine Kinase Troponin I NT-Pro-B Natriuret Pep Total Protein Albumin Globulin Albumin/Globulin Ratio Beta HCG, Quant Venous Blood Potassium Urine Color Yellow Urine Appearance Clear Urine pH 6.0 Ur Specific [place] 1.015 Urine Protein 100 H Urine Glucose (UA) Negative Urine Ketones Negative Urine Blood Trace-lysed H Urine Nitrate Negative Urine Bilirubin Negative Urine Urobilinogen 0.2 Ur Leukocyte Esterase Negative Urine RBC 0 - 2 Urine WBC 1 - 3 Ur Epithelial Cells 3 - 4 Amorphous Sediment Rare Urine Bacteria Occ Hyaline Casts 0 - 2 Urine HCG, Qual Negative Urine Opiates Screen Negative Urine Methadone Screen Positive H Ur Barbiturates Screen Negative Ur Phencyclidine Scrn Negative Ur Amphetamines Screen Negative U Benzodiazepines Scrn Negative U Oth Cocaine Metabols Negative U Cannabinoids Screen Negative 08/12/18 08/12/18 08/12/18 09:30 09:30 09:30 WBC 14.1 H RBC 3.47 L Hgb 9.0 L Hct 29.3 L MCV 84.4 MCH 25.9 MCHC 30.7 L RDW 17.8 H Plt Count 102 L MPV 10.5 Gran % Lymph % (Auto) 1.4 L [place] % (Auto) Eos % (Auto) 0.0 L Baso % (Auto) 0.1 Gran # Lymph # (Auto) 0.2 L [place] # (Auto) Eos # (Auto) 0.0 Baso # (Auto) 0.01 Neutrophils % (Manual) Band Neutrophils % Lymphocytes % (Manual) Atypical Lymphs % Monocytes % (Manual) Myelocytes % Platelet Evaluation Poikilocytosis (manual Anisocytosis (manual) Ovalocytes pCO2 pO2 HCO3 ABG pH ABG Total CO2 ABG O2 Saturation ABG O2 Content ABG Base Excess ABG Hemoglobin ABG Carboxyhemoglobin POC ABG HHb (Measured) ABG Methemoglobin ABG O2 Capacity VBG pH VBG pCO2 VBG HCO3 VBG Total CO2 VBG O2 Sat (Calc) VBG Base Excess VBG Potassium Hgb O2 Saturation Glucose Lactate FiO2 Sodium 140 Potassium 4.0 Chloride 106 Carbon Dioxide 29 Anion Gap 10 BUN 28 H Creatinine 0.7 Est GFR ( Amer) > 60 Est GFR (Non-Af Amer) > 60 Random Glucose 72 Lactic Acid Calcium 9.3 Magnesium Total Bilirubin 0.6 AST 39 H ALT 25 Alkaline Phosphatase 60 Lactate Dehydrogenase Total Creatine Kinase Troponin I 0.10 D NT-Pro-B Natriuret Pep Total Protein 6.2 Albumin 2.9 L Globulin 3.2 Albumin/Globulin Ratio 0.9 L Beta HCG, Quant < 2.39 Venous Blood Potassium Urine Color Urine Appearance Urine pH Ur Specific [place] Urine Protein Urine Glucose (UA) Urine Ketones Urine Blood Urine Nitrate Urine Bilirubin Urine Urobilinogen Ur Leukocyte Esterase Urine RBC Urine WBC Ur Epithelial Cells Amorphous Sediment Urine Bacteria Hyaline Casts Urine HCG, Qual Urine Opiates Screen Urine Methadone Screen Ur Barbiturates Screen Ur Phencyclidine Scrn Ur Amphetamines Screen U Benzodiazepines Scrn U Oth Cocaine Metabols U Cannabinoids Screen 08/12/18 11:12 WBC RBC Hgb Hct MCV MCH MCHC RDW Plt Count MPV Gran % Lymph % (Auto) [place] % (Auto) Eos % (Auto) Baso % (Auto) Gran # Lymph # (Auto) [place] # (Auto) Eos # (Auto) Baso # (Auto) Neutrophils % (Manual) Band Neutrophils % Lymphocytes % (Manual) Atypical Lymphs % Monocytes % (Manual) Myelocytes % Platelet Evaluation Poikilocytosis (manual Anisocytosis (manual) Ovalocytes pCO2 42 pO2 76.0 L HCO3 29.2 H ABG pH 7.45 ABG Total CO2 30.5 H ABG O2 Saturation 96.9 ABG O2 Content 11.0 L ABG Base Excess 4.8 H ABG Hemoglobin 8.3 L ABG Carboxyhemoglobin 1.5 POC ABG HHb (Measured) 3.0 ABG Methemoglobin 1.8 ABG O2 Capacity 11.4 L VBG pH VBG pCO2 VBG HCO3 VBG Total CO2 VBG O2 Sat (Calc) VBG Base Excess VBG Potassium Hgb O2 Saturation 93.7 L Glucose Lactate FiO2 50.0 Sodium Potassium Chloride Carbon Dioxide Anion Gap BUN Creatinine Est GFR ( Amer) Est GFR (Non-Af Amer) Random Glucose Lactic Acid Calcium Magnesium Total Bilirubin AST ALT Alkaline Phosphatase Lactate Dehydrogenase Total Creatine Kinase Troponin I NT-Pro-B Natriuret Pep Total Protein Albumin Globulin Albumin/Globulin Ratio Beta HCG, Quant Venous Blood Potassium Urine Color Urine Appearance Urine pH Ur Specific [place] Urine Protein Urine Glucose (UA) Urine Ketones Urine Blood Urine Nitrate Urine Bilirubin Urine Urobilinogen Ur Leukocyte Esterase Urine RBC Urine WBC Ur Epithelial Cells Amorphous Sediment Urine Bacteria Hyaline Casts Urine HCG, Qual Urine Opiates Screen Urine Methadone Screen Ur Barbiturates Screen Ur Phencyclidine Scrn Ur Amphetamines Screen U Benzodiazepines Scrn U Oth Cocaine Metabols U Cannabinoids Screen Assessment & Plan - Assessment and Plan (Free Text) Assessment: Patient is 38yo female with PMHx of HIV/AIDS, CD4<20 on 03/11/18, EBV, CMV, HSV, COPD, asthma, heroin abuse, CHF with LVEF=35%, a/w multifocal PNA Multifocal PNA HIV/AIDS SOB CHF, EF 35% COPD Hx Smoking - currently afebrile, HD stable, comfortable in NAD, on 4L NC, sat 92% - labs, imaging, chart reviewed - CXR with bilateral lower lobe consolidations Recommend: - cont with supp o2 as needed, goal sat 90%, duonebs PRN, IS - abx as per ID, would cover for HCAP, MRSA - consider convering for PCP, although less likely - check Urine Legionella, Strep, serum Procal - Rule out FLU - CT chest without contrast - GI ppx - DVT ppx - Pulmonary will continue to follow
--- NOTE | 2018-08-12 13:59 | CP.PCM.PN ---
Subjective - Date & Time of Evaluation Date of Evaluation: 08/12/18 Time of Evaluation: 13:55 - Subjective Subjective: PGY-1 Medicine Progress Note for Dr. Bhatti's service Patient seen and examined at bedside. Patient had increased difficulty of breathing in morning with elevated heart rate. Patient was given bipap which improved breathing status. Patient was given 2x bolus of 500ml NS. Patient had a temperature of 101.9 rectally. Patient admits to fevers, chills, weakness. Patient denies chest pain, n/v, constipation or diarrhea, dysuria. Objective - Vital Signs/Intake and Output Vital Signs (last 24 hours): Temp Pulse Resp BP Pulse Ox 101.9 F H 133 H 20 100/62 94 L 08/12/18 10:40 08/12/18 12:00 08/12/18 12:00 08/12/18 12:00 08/12/18 10:17 Intake and Output: 08/12/18 08/12/18 06:59 18:59 Intake Total 500 Output Total 800 Balance -300 - Medications Medications: Current Medications Acetaminophen (Tylenol 325mg Tab) 650 mg PO Q4H PRN PRN Reason: Fever >100.4 F Last Admin: 08/12/18 10:40 Dose: 650 mg Arformoterol Tartrate (Brovana) 15 mcg IH [id number] [facility] Last Admin: 08/12/18 08:08 Dose: Not Given Aspirin (Ecotrin) 81 mg PO DAILY [facility] Budesonide (Pulmicort Respules) 0.5 mg IH [id number] [facility] Last Admin: 08/12/18 08:09 Dose: Not Given Clonazepam (Klonopin) 0.5 mg PO TID [facility]; Protocol Last Admin: 08/12/18 12:14 Dose: 0.5 mg Enoxaparin Sodium (Lovenox) 40 mg SC Q12 [facility]; Protocol Last Admin: 08/12/18 09:37 Dose: 40 mg Furosemide (Lasix) 20 mg IVP DAILY [facility] Last Admin: 08/12/18 09:37 Dose: 20 mg Doxycycline Hyclate 100 mg/ (Sodium Chloride) 100 mls @ 100 mls/hr IVPB Q12 [facility]; Protocol Last Admin: 08/12/18 09:39 Dose: 100 mls/hr Sodium Chloride (Sodium Chloride 0.9%) 1,000 mls @ 75 mls/hr IV .[id number] [facility] Last Admin: 08/12/18 08:10 Dose: 75 mls/hr Clindamycin Phosphate 900 mg/ (Sodium Chloride) 106 mls @ 106 mls/hr IVPB Q8 [facility]; Protocol Stop: 08/21/18 14:01 Last Admin: 08/12/18 13:00 Dose: 106 mls/hr Meropenem (Merrem Iv 1 Gm Premix) 1 gm in 50 mls @ 100 mls/hr IVPB Q8 [facility]; Protocol Stop: 08/21/18 14:01 Ipratropium [place] (Atrovent) 0.5 mg IH [id number] PRN PRN Reason: Shortness of Breath Levalbuterol HCl (Xopenex) 0.63 mg IH [id number] PRN PRN Reason: Shortness of Breath Methadone HCl (Methadone) 100 mg PO DAILY [facility] Last Admin: 08/12/18 09:11 Dose: Not Given Methylprednisolone (Solu-Medrol) 20 mg IVP DAILY [facility] Last Admin: 08/12/18 09:38 Dose: 20 mg Pantoprazole Sodium (Protonix Inj) 40 mg IVP DAILY [facility] Last Admin: 08/12/18 09:38 Dose: 40 mg Primaquine Phosphate (Primaquine) 26.3 mg PO DAILY [facility]; Protocol Stop: 08/21/18 10:01 Last Admin: 08/12/18 09:36 Dose: 26.3 mg - Labs Labs: 08/12/18 09:30 08/12/18 09:30 - Constitutional Appears: Non-toxic, No Acute Distress - Head Exam Head Exam: NORMAL INSPECTION, NORMOCEPHALIC - Eye Exam Eye Exam: EOMI, Normal appearance. absent: Nystagmus, Scleral icterus - ENT Exam ENT Exam: Mucous Membranes Dry - Respiratory Exam Respiratory Exam: Rhonchi, Wheezes, Respiratory Distress. absent: Accessory Muscle Use, Clear to Ausculation Bilateral, Rales, NORMAL BREATHING PATTERN - Cardiovascular Exam Cardiovascular Exam: Tachycardia, REGULAR RHYTHM, +S1 - GI/Abdominal Exam GI & Abdominal Exam: Soft, Normal Bowel Sounds. absent: Distended, Firm, Guarding, Rigid, Tenderness - Extremities Exam Extremities Exam: Normal Inspection, Pedal Edema. absent: Calf Tenderness - Neurological Exam Neurological Exam: Alert, Awake, Oriented x3 - Psychiatric Exam Psychiatric exam: Normal Affect, Normal Mood - Skin Skin Exam: Dry Assessment and Plan - Assessment and Plan (Free Text) Assessment: 38 year old female with past medical history of HIV with CD4<20 on 03/11/18, EBV, CMV, HSV, COPD, asthma, heroin abuse, CHF with LVEF=35% on 04/11 presents for increased sob and weakness s/p discharge from [facility]. 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 Joseph. Patient put on isolation precautions. Patient required bipap for respiratory difficulty and pulmonology consult was placed.
--- NOTE | 2018-08-12 14:05 | CON ---
DATE OF CONSULTATION: 08/12/2018 HISTORY OF PRESENT ILLNESS: This is a 38-year-old female with end-stage AIDS, chronic obstructive lung disease, PCP, history of AFB and liver biopsy, history of asthma, intravenous drug abuse, congestive heart failure with low ejection fraction of 35%, and history of hepatitis C. He was admitted now with shortness of breath, wheezing and cough that is dry. She has had fevers and no chills, no headaches, no blurred vision, no chest pain. REVIEW OF SYSTEMS: A 12-point review of systems performed. PAST MEDICAL HISTORY: Significant for end-stage AIDS, T-cells of less than 20, history of PCP/PJP, positive AFB on the liver biopsy, chronic obstructive lung disease, asthma, intravenous drug abuse, congestive heart failure, hepatitis C. PAST SURGICAL HISTORY: Significant for right neck abscess drainage. ALLERGIES: THE PATIENT IS ALLERGIC TO PENICILLIN, LEVAQUIN, SULFA, TRIMETHOPRIM, AZITHROMYCIN, AND FLEXERIL. PHYSICAL EXAMINATION: The patient is in bed with a temperature of 97, T-max of 101.5, pulse of 112, respiratory rate of 28, blood pressure is 106/70. Examination of HEENT is unremarkable. Neck is supple. Lungs have decreased breath sounds. Heart sounds are normal S1 and S2. Abdominal examination is soft, nontender. LABORATORY EXAMINATION: Reveals the patient has a white count of 15,000, hemoglobin of 9, platelets of 132. Chemistries reveal BMP is high, troponin is elevated, AST is elevated, and LDH is elevated. Urinalysis is noted. Methadone screen is positive. Chest x-ray report is not available and review of the x-ray reveals infiltrates. 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 We will start the patient on clindamycin, primaquine, meropenem, and place the patient on airborne precautions as per cytomegalovirus-polymerase chain reaction crypt antigen, Fungitell, and the patient is on doxycycline. We will also ask for a urine for Legionella antigen and sputum culture and sputum for acid-fast bacilli smears and cultures and procalcitonin and we will make further recommendations upon availability of initial results. Cheikh Chou MD
[2018-08-12] MEDS: Meropenem IV 1 gm in NS 1 GM/50 ML BAG IVPB SCH ×2 (14:30→21:55)
--- NOTE | 2018-08-12 17:00 | CT ---
Date of service: 2018-08-12 15:30:18 CT chest without IV contrast Indication: pneumonia, SOB Technique: Contiguous axial images were obtained through the chest without intravenous contrast enhancement. Sagittal and coronal reconstructions were generated and reviewed. This CT exam was performed using 1 or more of the following dose reduction techniques: Automated exposure control, adjustment of the MAA and/or kV according to patient size, and/or use of iterative reconstruction technique. Radiation dose (DLP): 165.75 MGy-cm. Comparison: Chest x-ray performed 08/12/18 Findings: Visualized portions of the inferior thyroid gland appear unremarkable. Upper mediastinal adenopathy, nonspecific. The noncontrast mediastinal and hilar vascular structures appear grossly unremarkable. The heart appears within normal limits of size. Small pericardial effusion. Prevascular and mediastinal adenopathy, nonspecific. Calcified right hilar and mediastinal lymph nodes. No atherosclerotic calcifications of the thoracic aorta present. Please note lack of IV contrast limits evaluation for adenopathy, in particular hilar adenopathy. Innumerable nodular opacities bilaterally throughout all lung asif. For example 2.5 cm at the right lung apex; 1.6 cm at the left lower lobe; and 1.8 cm in the right middle lobe, possibly with cavitation (series 3, image 83). Bilateral [id number]-right dependent consolidations. Small bilateral pleural effusions. No pneumothorax. Limited visualization of the noncontrast upper abdomen; limited visualization of the noncontrast upper abdomen appears grossly unremarkable. Mild degenerative changes of the spine. Impression: Innumerable nodular opacities throughout bilateral lung asif as delineated above including 1 nodule with probable cavitation. Considerations include malignant neoplasm versus infection (such as tuberculosis or fungal infection), or inflammatory nodules. Bilateral [id number]-right dependent consolidations and small bilateral pleural effusions. Calcified right hilar and mediastinal lymph nodes. Findings discussed with the patient's RN Karon on 08/12/18 at 4:53 p.m.
--- NOTE | 2018-08-12 19:48 | CON ---
DATE OF CONSULTATION: 08/12/2018 The patient is in Room 268, Bed 1. REASON FOR CONSULTATION: Shortness of breath, troponin elevated, sinus tachycardia, history of cardiomyopathy, and HIV. HISTORY OF PRESENT ILLNESS: This is a 38-year-old female who is a poor compliance patient, known case of HIV with CD4 less than 20 on 03/11/2018, EBV, CMV, HSV, COPD, asthma, heroin abuse. 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 The patient presented to the emergency room with chills, shortness of breath, wheezing and dry cough. The patient also feels weakness in bilateral legs. The patient had an echocardiogram done on 04/14/2018, which showed LV ejection fraction 35%, mild tricuspid regurg, RVSP 40 mmHg. The patient's previous troponin on 04/13/2018 was 0.23 and 0.22. Again, on 06/02/2018, troponin was 0.54 and on 06/03/2018 it was 0.26, so the patient has a chronic elevation of troponin. 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 PAST SURGICAL HISTORY: Right anterior neck surgery for abscess, incision and drainage . PERSONAL HISTORY: Former smoker, one pack a day for 20 years. Denies alcohol abuse, but the patient has a history of heroin abuse. MEDICATIONS: Please refer to MAR. ALLERGIES: THE PATIENT ALLERGIC TO BACTRIM, LEVOFLOXACIN, PENICILLIN, AZITHROMYCIN, FLEXERIL. REVIEW OF SYSTEMS: All the systems reviewed, positives mentioned in the history, others were negative. PHYSICAL EXAMINATION: VITAL SIGNS: Blood pressure 136/93, respirations 18, pulse 76, temperature 98.8. Earlier heart rate was 130, the patient's earlier temperature was 101.9. Now temperature is about 99. Head is normocephalic. Eyes, pupils normal. Conjunctivae pale. NECK: JVP low. Carotids equal. Thorax AP diameter normal. LUNGS: The patient has scattered wheezing. CARDIOVASCULAR: S1, S2. ABDOMEN: Soft, nontender. No organomegaly. EXTREMITIES: No clubbing, no cyanosis. LABORATORY DATA: WBC 14.1, hemoglobin 9.0, hematocrit 29.3, platelets 102. Sodium 140, potassium 4.0, BUN 28, creatinine 0.7. AST 39, ALT 25, alkaline phosphatase 60. First troponin 0.14, second troponin 0.10, third troponin 0.06. Previous cardio workup on 04/14/2018, the patient's echocardiogram shows reduced LV ejection fraction of 35%, mild tricuspid regurg, RVSP 40 mmHg, suggestive of very mild elevation of pulmonary hypertension. Chest x-ray bilateral lower lobe infiltrate nodular densities in the right upper lobe, findings suggestive of multifocal pneumonia. EKG showed multifocal tachycardia, nonspecific ST-T changes. CT scan of the chest showed innumerable nodular opacities throughout the bilateral lung asif, one nodule with probable cavitation. This cavitation may represent the neoplasm versus infection such as tuberculosis or fungal infection or inflammatory nodules. The patient has bilateral, left greater than right, dependence consolidations and a very small bilateral pleural effusion. DIAGNOSES: Shortness of breath; bilateral pneumonia; sepsis; sinus tachycardia, representation of underlying pulmonary status; troponin elevated, nonspecific because the patient had previously troponin elevated as mentioned before, on 04/13/2018 the patient had troponins of 0.23 and 0.22, on 06/02/2018 it was 0.54 and on 06/03/2018 it was 0.26; cardiomyopathy with LV ejection fraction of 35%; HIV, poor compliance patient; anemia; COPD; asthma; heroin abuse; history of EBV, CMV, HSV, HIV with CD4 less than 20 on 03/11/2018; Mycobacterium positive on liver biopsy; sinus tachycardia, related to underlying pulmonary status with pneumonia and infection and asthma and COPD. Troponin elevation is false elevation. The patient is getting ipratropium and nebulizer therapy, clindamycin 900 mg IV every 8 hours, doxycycline 100 mg IV every 12 hours, aspirin 81 mg daily, Klonopin 0.5 mg t.i.d., furosemide 20 IV daily, Lovenox 40 mg subcu every 12 hours, meropenem 1 g IV every 8 hours, methadone 100 mg daily, primaquine 26.3 mg p.o. daily, Protonix 40 IV daily, IV fluids 75 mL/hr, methylprednisolone 20 mg IV daily, Xopenex and nebulizer therapy. We will add metoprolol 25 mg b.i.d. to therapy to help the sinus tachycardia. The patient admitted with bilateral pneumonia. We will follow with you. Cara Umaña MD [facility] # [id number]
--- NOTE | 2018-08-13 07:01 | CP.PCM.PN ---
Addendum entered and electronically signed by Suleman Murillo DO 08/13/18 11:43: Pedal Edema noted on physical exam in extremities- Fluids were DC'ed Original Note: <Suleman Murillo - Last Filed: 08/13/18 10:53> Subjective - Date & Time of Evaluation Date of Evaluation: 08/13/18 Time of Evaluation: 07:45 - Subjective Subjective: PGY-1 Medicine Progress Note for Dr. Bhatti's service Patient seen and examined at bedside. Patient reports improved breathing. Patie nt offers no acute complaints. Patient denies fevers, chills, chest pain, sob, n/v, constipation or diarrhea, dysuria. Objective - Vital Signs/Intake and Output Vital Signs (last 24 hours): Temp Pulse Resp BP Pulse Ox 97.9 F 88 18 94/62 L 99 08/13/18 06:00 08/13/18 06:00 08/13/18 06:00 08/13/18 06:00 08/13/18 06:00 Intake and Output: 08/13/18 08/13/18 06:59 18:59 Intake Total 3095 Balance 3095 - Medications Medications: Current Medications Acetaminophen (Tylenol 325mg Tab) 650 mg PO Q4H PRN PRN Reason: Fever >100.4 F Last Admin: 08/12/18 10:40 Dose: 650 mg Arformoterol Tartrate (Brovana) 15 mcg IH [id number] [facility] Last Admin: 08/12/18 19:48 Dose: Not Given Aspirin (Ecotrin) 81 mg PO DAILY [facility] Budesonide (Pulmicort Respules) 0.5 mg IH [id number] [facility] Last Admin: 08/12/18 19:49 Dose: Not Given Clonazepam (Klonopin) 0.5 mg PO TID [facility]; Protocol Last Admin: 08/12/18 17:36 Dose: 0.5 mg Enoxaparin Sodium (Lovenox) 40 mg SC Q12 [facility]; Protocol Last Admin: 08/12/18 21:56 Dose: 40 mg Furosemide (Lasix) 20 mg IVP DAILY [facility] Last Admin: 08/12/18 09:37 Dose: 20 mg Doxycycline Hyclate 100 mg/ (Sodium Chloride) 100 mls @ 100 mls/hr IVPB Q12 [facility]; Protocol Last Admin: 08/12/18 21:53 Dose: 100 mls/hr Sodium Chloride (Sodium Chloride 0.9%) 1,000 mls @ 75 mls/hr IV .[id number] [facility] Last Admin: 08/12/18 21:59 Dose: 75 mls/hr Clindamycin Phosphate 900 mg/ (Sodium Chloride) 106 mls @ 106 mls/hr IVPB Q8 [facility]; Protocol Stop: 08/21/18 14:01 Last Admin: 08/12/18 21:54 Dose: 106 mls/hr Meropenem (Merrem Iv 1 Gm Premix) 1 gm in 50 mls @ 100 mls/hr IVPB Q8 [facility]; Protocol Stop: 08/21/18 14:01 Last Admin: 08/12/18 21:55 Dose: 100 mls/hr Ipratropium [place] (Atrovent) 0.5 mg IH [id number] PRN PRN Reason: Shortness of Breath Levalbuterol HCl (Xopenex) 0.63 mg IH [id number] PRN PRN Reason: Shortness of Breath Methadone HCl (Methadone) 100 mg PO DAILY [facility] Last Admin: 08/12/18 09:11 Dose: Not Given Methylprednisolone (Solu-Medrol) 20 mg IVP DAILY [facility] Last Admin: 08/12/18 09:38 Dose: 20 mg Metoprolol Tartrate (Lopressor) 12.5 mg PO Q12 [facility] Last Admin: 08/12/18 21:56 Dose: 12.5 mg Pantoprazole Sodium (Protonix Inj) 40 mg IVP DAILY [facility] Last Admin: 08/12/18 09:38 Dose: 40 mg Primaquine Phosphate (Primaquine) 26.3 mg PO DAILY [facility]; Protocol Stop: 08/21/18 10:01 Last Admin: 08/12/18 09:36 Dose: 26.3 mg - Labs Labs: 08/12/18 09:30 08/12/18 09:30 - Constitutional Appears: Non-toxic, No Acute Distress - Head Exam Head Exam: NORMAL INSPECTION, NORMOCEPHALIC - Eye Exam Eye Exam: EOMI, Normal appearance. absent: Nystagmus, Scleral icterus - ENT Exam ENT Exam: Mucous Membranes Moist - Respiratory Exam Respiratory Exam: Rhonchi, NORMAL BREATHING PATTERN. absent: Rales, Wheezes, Respiratory Distress - Cardiovascular Exam Cardiovascular Exam: REGULAR RHYTHM, +S1, +S2. absent: Bradycardia, Tachycardia - GI/Abdominal Exam GI & Abdominal Exam: Soft, Normal Bowel Sounds. absent: Distended, Firm, Guarding, Tenderness - Neurological Exam Neurological Exam: Alert, Awake, Oriented x3 - Psychiatric Exam Psychiatric exam: Normal Affect, Normal Mood - Skin Skin Exam: Intact, Normal Color. absent: Pallor, Rash Assessment and Plan - Assessment and Plan (Free Text) Assessment: 38 year old female with past medical history of HIV with CD4 of 1 on 03/11/18, EBV, CMV, HSV, COPD, asthma, heroin abuse, CHF with LVEF=35% on 04/11 presents after being diagnosed with mycobacterium by liver biopsy by Dr. Joseph. Concern for TB due to prior biospy. Chest CT ordered showed nodules concerning for TB vs malignancy. Improved breathing s/p bipap; currently on 4L of [place] Plan: Pneumonia ID consulted - Dr. Chou- recommendations as below Pulm consulted- Dr. Haddad- recommendations as below 08-12 Cxray- bilateral lower lobe infiltrates; nodular densities in the right upper lobe; findings are most consistent with a multi focal pneumonia 08-[address]- Innumerable nodular opacities throughout bilateral lung asif as delineated above including 1 nodule with probable cavitations. Malignant neoplasm vs Infection (TB or fungal infection) vs inflammatory nodules; Bilateral R>L consolidations and small bilateral pleural effusions; calcified right hilar and mediastinal lymph nodes Afebrile; no leukocytosis noted Sputum cx pendings; Urine pna studies pending Induction of sputum planned with Resp therapist Doxycycline IVPB q12 [facility] Meropenem IVPB q8 [facility] Clindamycin IVPB q8 [facility] Primaquine 26.3mg po daily Hx of Mcycobacterium Liver biopsy by Dr. Joseph Sputum culture pending Hx of CHF Cardio consulted- Dr. Umaña- recommendations as below Lopressor 12.5mg po q12 [facility] Lasix 20mg IVP daily Aspirin 81mg po daily Hx of COPD Brovana 15mcg [id number] [facility] Pulmicort 0.5mg [id number] [facility] Atrovent 0.5mg q6h resp prn Xopenex 0.63 mg IH q6h resp Solumedrol 20mg IVP daily [facility] ABG was within normal limits Hx of Heroin abuse Methadone 100mg po daily benjamin Hx of anxiety Klonopin 0.5mg po tid [facility] Hx of chronic back pain Tramadol 50mg po q8h prn Tylenol 650mg po q4h prn PPx GI ppx- Protonix 40mg po q12 D[facility] ppx- Lovenox 40mg sc q12 <MikieJuancho bowienakul - Last Filed: 08/13/18 15:20> Objective - Vital Signs/Intake and Output Vital Signs (last 24 hours): Temp Pulse Resp BP Pulse Ox 97.9 F 119 H 18 123/85 99 08/13/18 06:00 08/13/18 10:00 08/13/18 06:00 08/13/18 09:26 08/13/18 06:00 Intake and Output: 08/13/18 08/13/18 06:59 18:59 Intake Total 3395 Balance 3395 - Medications Medications: Current Medications Acetaminophen (Tylenol 325mg Tab) 650 mg PO Q4H PRN PRN Reason: Fever >100.4 F Last Admin: 08/12/18 10:40 Dose: 650 mg Arformoterol Tartrate (Brovana) 15 mcg IH [id number] [facility] Last Admin: 08/13/18 07:26 Dose: 15 mcg Aspirin (Ecotrin) 81 mg PO DAILY [facility] Last Admin: 08/13/18 09:26 Dose: 81 mg Budesonide (Pulmicort Respules) 0.5 mg IH [id number] [facility] Last Admin: 08/13/18 07:26 Dose: 0.5 mg Clonazepam (Klonopin) 0.5 mg PO TID [facility]; Protocol Last Admin: 08/13/18 13:36 Dose: 0.5 mg Enoxaparin Sodium (Lovenox) 40 mg SC Q12 [facility]; Protocol Last Admin: 08/13/18 09:29 Dose: 40 mg Furosemide (Lasix) 20 mg IVP DAILY [facility] Last Admin: 08/13/18 09:26 Dose: 20 mg Doxycycline Hyclate 100 mg/ (Sodium Chloride) 100 mls @ 100 mls/hr IVPB Q12 [facility]; Protocol Last Admin: 08/13/18 09:33 Dose: 100 mls/hr Clindamycin Phosphate 900 mg/ (Sodium Chloride) 106 mls @ 106 mls/hr IVPB Q8 [facility]; Protocol Stop: 08/21/18 14:01 Last Admin: 08/13/18 13:37 Dose: 106 mls/hr Meropenem (Merrem Iv 1 Gm Premix) 1 gm in 50 mls @ 100 mls/hr IVPB Q8 [facility]; Protocol Stop: 08/21/18 14:01 Last Admin: 08/13/18 13:36 Dose: 100 mls/hr Ipratropium [place] (Atrovent) 0.5 mg IH [id number] PRN PRN Reason: Shortness of Breath Last Admin: 08/13/18 14:05 Dose: 0.5 mg Levalbuterol HCl (Xopenex) 0.63 mg IH [id number] PRN PRN Reason: Shortness of Breath Methadone HCl (Methadone) 100 mg PO DAILY [facility] Last Admin: 08/13/18 09:29 Dose: 100 mg Methylprednisolone (Solu-Medrol) 20 mg IVP DAILY [facility] Last Admin: 08/13/18 09:25 Dose: 20 mg Metoprolol Tartrate (Lopressor) 12.5 mg PO Q12 [facility] Last Admin: 08/13/18 09:26 Dose: 12.5 mg Pantoprazole Sodium (Protonix Inj) 40 mg IVP DAILY [facility] Last Admin: 08/13/18 09:30 Dose: 40 mg Primaquine Phosphate (Primaquine) 26.3 mg PO DAILY [facility]; Protocol Stop: 08/21/18 10:01 Last Admin: 08/13/18 09:26 Dose: 26.3 mg Tramadol HCl (Ultram) 50 mg PO Q8H PRN PRN Reason: Pain, moderate (4-7) Last Admin: 08/13/18 10:30 Dose: 50 mg - Labs Labs: 08/13/18 07:00 08/13/18 07:00 Attending/Attestation - Attestation I have personally seen and examined this patient.: Yes I have fully participated in the care of the patient.: Yes I have reviewed all pertinent clinical information, including history, physical exam and plan: Yes Notes (Text): 08/13/18 15:20 Medical record note made by the resident after discussion with my direction and input after the patient was personally seen and examined by me. I have reviewed the chart and agree that the record accurately reflects by personal performance of the history, physical exam, data review, and medical decision-making, in the course for the patient. I have also personally directed the plan of care. 38yo female with PMhx of HIV/AIDS, CD4<20 on 03/11/18, EBV, CMV, HSV, COPD, asthma, heroin abuse, CHF with LVEF=35%, presents with weakness, fatigue, and worsening SOB for last 4 days. Pt was [place] [facility] [place] 4 days ago.ct chest showed Innumerable nodular opacities throughout bilateral lung asif as delineated above including 1 nodule with probable cavitations. Malignant neoplasm vs Infection (TB or fungal infection) vs inflammatory nodules; Bilateral R>L consolidations and small bilateral pleural effusions; calcified right hilar and mediastinal lymph nodes.Patient is on Resp Isolation to rule out TB, on IV antibiotics as per ID.Tachycardia and hypoxia is improving.
[2018-08-13] MEDS: Ipratropium 0.02% Inhal Soln (0.5 mg/2.5 ml) UD IH PRN ×2 (07:26→14:05)
[2018-08-13] MEDS: Arformoterol 15 mcg/2 ml Inh Sol IH SCH ×2 (07:26→19:52)
[2018-08-13] MEDS: Budesonide 0.5 mg/2 ml Inhal Susp UD IH SCH ×2 (07:26→19:52)
[2018-08-13] MEDS: Meropenem IV 1 gm in NS 1 GM/50 ML BAG IVPB SCH ×3 (07:46→22:03)
[2018-08-13 07:51] LABS: EOS % 0.5 % (1.5-5.0); GRAN # 5.04 (1.4-6.5); GRAN % 88.3 % (50.0-68.0); HEMOGLOBIN 7.7 g/dL (12.0-16.0); LYMPH # 0.2 (1.2-3.4); MEAN CELL VOLUME 84.6 fl (80.0-105.0); MEAN CORPUSCULAR HEMOGLOBIN 25.8 pg (25.0-35.0); MEAN CORPUSCULAR HGB CONC 30.4 g/dl (31.0-37.0); MEAN PLATELET VOLUME 10.4 fl (7.0-11.0); MONO # 0.4 (0.1-0.6); MONO % 7.2 % (1.0-6.0); RBC 2.99 10^6/uL (3.5-6.1); RED CELL DISTRIBUTION WIDTH 17.7 % (11.5-14.5); WHITE BLOOD COUNT 5.7 10^3/ul (4.5-11.0)
[2018-08-13 07:55] LABS: ALB/GLOB RATIO 0.9 (1.1-1.8); ALBUMIN 2.3 g/dL (3.0-4.8); ALT/SGPT 26 U/L (7-56); AST/SGOT 24 U/L (14-36); BLOOD UREA NITROGEN 35 mg/dL (7-21); CALCIUM 8.2 mg/dL (8.4-10.5); GFR NON-AFRICAN AMERICAN > 60
[2018-08-13] MEDS: MethylPREDNISolone 40 mg Vial IVP SCH (09:25)
[2018-08-13] MEDS: Primaquine 26.3 mg Tab PO SCH (09:26)
[2018-08-13] MEDS: Enoxaparin 40 mg Syringe SC SCH ×2 (09:29→21:54)
--- NOTE | 2018-08-13 10:02 | CP.PCM.PN ---
Subjective - Date & Time of Evaluation Date of Evaluation: 08/13/18 Time of Evaluation: 06:35 - Subjective Subjective: Awake, alert, watching TV,no distress Reason for consultation and follow up: Cardiac evaluation of shortness of breath, history of cardiomyopathy,HIV, elevated troponin Seen and examined by me and Dr. Umaña Objective - Vital Signs/Intake and Output Vital Signs (last 24 hours): Temp Pulse Resp BP Pulse Ox 97.9 F 88 18 94/62 L 99 08/13/18 06:00 08/13/18 06:00 08/13/18 06:00 08/13/18 06:00 08/13/18 06:00 Intake and Output: 08/13/18 08/13/18 06:59 18:59 Intake Total 3395 Balance 3395 - Medications Medications: Current Medications Acetaminophen (Tylenol 325mg Tab) 650 mg PO Q4H PRN PRN Reason: Fever >100.4 F Last Admin: 08/12/18 10:40 Dose: 650 mg Arformoterol Tartrate (Brovana) 15 mcg IH [id number] [facility] Last Admin: 08/13/18 07:26 Dose: 15 mcg Aspirin (Ecotrin) 81 mg PO DAILY [facility] Budesonide (Pulmicort Respules) 0.5 mg IH [id number] [facility] Last Admin: 08/13/18 07:26 Dose: 0.5 mg Clonazepam (Klonopin) 0.5 mg PO TID [facility]; Protocol Last Admin: 08/12/18 17:36 Dose: 0.5 mg Enoxaparin Sodium (Lovenox) 40 mg SC Q12 [facility]; Protocol Last Admin: 08/12/18 21:56 Dose: 40 mg Furosemide (Lasix) 20 mg IVP DAILY [facility] Last Admin: 08/12/18 09:37 Dose: 20 mg Doxycycline Hyclate 100 mg/ (Sodium Chloride) 100 mls @ 100 mls/hr IVPB Q12 [facility]; Protocol Last Admin: 08/12/18 21:53 Dose: 100 mls/hr Sodium Chloride (Sodium Chloride 0.9%) 1,000 mls @ 75 mls/hr IV .[id number] [facility] Last Admin: 08/12/18 21:59 Dose: 75 mls/hr Clindamycin Phosphate 900 mg/ (Sodium Chloride) 106 mls @ 106 mls/hr IVPB Q8 [facility]; Protocol Stop: 08/21/18 14:01 Last Admin: 08/13/18 07:46 Dose: 106 mls/hr Meropenem (Merrem Iv 1 Gm Premix) 1 gm in 50 mls @ 100 mls/hr IVPB Q8 [facility]; Protocol Stop: 08/21/18 14:01 Last Admin: 08/13/18 07:46 Dose: 100 mls/hr Ipratropium [place] (Atrovent) 0.5 mg IH [id number] PRN PRN Reason: Shortness of Breath Last Admin: 08/13/18 07:26 Dose: 0.5 mg Levalbuterol HCl (Xopenex) 0.63 mg IH [id number] PRN PRN Reason: Shortness of Breath Methadone HCl (Methadone) 100 mg PO DAILY [facility] Last Admin: 08/12/18 09:11 Dose: Not Given Methylprednisolone (Solu-Medrol) 20 mg IVP DAILY [facility] Last Admin: 08/12/18 09:38 Dose: 20 mg Metoprolol Tartrate (Lopressor) 12.5 mg PO Q12 [facility] Last Admin: 08/12/18 21:56 Dose: 12.5 mg Pantoprazole Sodium (Protonix Inj) 40 mg IVP DAILY [facility] Last Admin: 08/12/18 09:38 Dose: 40 mg Primaquine Phosphate (Primaquine) 26.3 mg PO DAILY [facility]; Protocol Stop: 08/21/18 10:01 Last Admin: 08/12/18 09:36 Dose: 26.3 mg - Labs Labs: 08/13/18 07:00 08/13/18 07:00 - Constitutional Appears: Non-toxic, No Acute Distress - Head Exam Head Exam: NORMAL INSPECTION, NORMOCEPHALIC - ENT Exam ENT Exam: Mucous Membranes Dry - Respiratory Exam Respiratory Exam: Decreased Breath Sounds, NORMAL BREATHING PATTERN - Cardiovascular Exam Cardiovascular Exam: REGULAR RHYTHM, +S1, +S2 Additional comments: NSR telemetry - GI/Abdominal Exam GI & Abdominal Exam: Soft, Normal Bowel Sounds - Extremities Exam Additional comments: 2+ edema - Neurological Exam Neurological Exam: Alert, Awake, Oriented x3 - Psychiatric Exam Psychiatric exam: Normal Affect, Normal Mood - Skin Skin Exam: Dry, Normal Color, Warm Assessment and Plan - Assessment and Plan (Free Text) Assessment: A 38 year old female known to service who came in to the ER due to shortness of breath and chills. She was just recently hospitalized [place] [facility] [place] for the same symptoms stabilized and discharged, then after few days symptoms reoccurred. 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 Shortness of breath due to possible p neumonia, ID on consult, started on antibiotics. False positive elevated troponin due to underlying infection. Plan: Mild shortness of breath, denies chest pain, on nasal cannula On airborne isolation, Positive for AFB and mycobacterium in liver Heart rate NSR on telemetry Blood pressure controlled ID on consult Continue antibiotics as ordered Continue current treatment Continue medications Chart reviewed Will follow up Plan and treatment discussed with Dr. Umaña
--- NOTE | 2018-08-13 16:57 | CARD ---
APPROVED REPORT Date of service: 08/13/2018 EXAM: Two-dimensional and M-mode echocardiogram with Doppler and color Doppler. INDICATION Septic emboli 2D DIMENSIONS Left Atrium (2D)2.7 (1.6-4.0cm)IVSd0.9 (0.7-1.1cm) Aortic Root (2D)2.8 (2.0-3.7cm)LVDd4.6 (3.9-5.9cm) PWd1.1 (0.7-1.1cm)LVDs3.6 (2.5-4.0cm) FS (%) 22.5 %LVEF (%)45.4 (>50%) M-Mode DIMENSIONS Aortic Cusp Exc.1.90 (1.5-2.0cm) Pulmonary Valve PV Peak [id number]/sPV Peak Grad.6mmHg Tricuspid Valve TR Peak [id number] [id number] Peak Gr.53mmHg [id number] LEFT VENTRICLE The left ventricle is normal size. There is normal left ventricular wall thickness. The systolic function is mildly impaired. There is global hypokinesis of the left ventricle. RIGHT VENTRICLE The right ventricle is normal size. There is normal right ventricular wall thickness. The right ventricular systolic function is normal. ATRIA The left atrium size is normal. The right atrium size is normal. AORTIC VALVE The aortic valve is not well visualized and is probably bicuspid. No aortic regurgitation is present. There is no aortic valvular stenosis. MITRAL VALVE The mitral valve is moderately thickened. Mitral regurgitation is trace. There is no mitral valve stenosis. TRICUSPID VALVE There is mild tricuspid regurgitation. There is moderate pulmonary hypertension. PULMONIC VALVE The pulmonary valve is normal in structure. There is no pulmonic valvular regurgitation. <Conclusion> The left ventricle is normal size. There is normal left ventricular wall thickness. The systolic function is mildly impaired. There is global hypokinesis of the left ventricle. The aortic valve is not well visualized and is probably bicuspid. The mitral valve is moderately thickened. There is mild tricuspid regurgitation. There is moderate pulmonary hypertension. No vegitation seen, however, if endocarditis is a concern , consider [facility]
--- NOTE | 2018-08-13 21:48 | PN ---
DATE: 08/13/2018 SUBJECTIVE: This is a 38-year-old lady with HIV and prior admission for some respiratory tract infection, questionable PCP who has a history of noncompliance with her HAART medication, who presented this time with significant shortness of breath, fever, and nodular opacities as well as areas of consolidation bilaterally on her chest imaging. The patient reports that her cough is somewhat better but she is still coughing with some pleuritic chest pain and producing some whitish phlegm of a mild amount. PHYSICAL EXAMINATION: VITAL SIGNS: Temperature 97.9, blood pressure 123/85, respiratory rate 18, oxygen saturation 99% on nasal cannula, heart rate 119. HEENT: Head and neck atraumatic. LUNGS: Few crackles bilaterally. HEART: Regular rate and rhythm. S1 and S2 normal. ABDOMEN: Soft, nontender, nondistended. MUSCULOSKELETAL: No C/C/E. NEUROLOGIC: The patient moves all extremities spontaneously. SKIN: Moist. PSYCHIATRIC: The patient is alert, awake, and oriented x3, not in respiratory or otherwise distress. LABORATORY DATA: WBC 5.7, hemoglobin 7.7, platelet count 95. Sodium 139, potassium 4.3, chloride 108, carbon dioxide 27, BUN 35, creatinine 0.8, glucose 73, lactic acid 1.4. AST 24, ALT 26, total bilirubin 0.3, albumin 2.3, LDH 1438 (the patient is on primaquine/clindamycin and low-dose steroids for presumed PCP pneumonia empirically). CT chest showed bilateral nodular opacities with some consolidation bibasilar with air bronchograms. The nodules without any upper or lower lobe predominance. Lung nodule in the right upper lobe anterior segment appears to be cavitating. Some bronchiectasis present. ASSESSMENT AND PLAN: This is a 38-year-old lady who presented with respiratory complaints including cough, shortness of breath, and some sputum production in the setting of a nodular opacities, consolidation/air bronchograms without any particular lobe predominance. At present time, the patient has been treated empirically for hospital-acquired pneumonia (as the patient was discharged 2 days ago from [facility]) in the setting of human immunodeficiency virus infection with questionable compliance with HAART medication and unknown CD-4 count and viral load. Possibility of Pneumocystis pneumonia is covered by ID service as well, even though radiologically it's not appear to be a primary suspect in patient's clinical deterioration. The patient is on isolation and sputum collection for AFB is in progress. Will order sputum MTB PCR. The patient is on airborne isolation. Possibility of invasive fungal infection is there, however, less likely than typical pathogens or mycobacterial infection (no neutropenia, no chronic steroid tx). 1, 3 D beta Glucan, galactomannan antigen, cryptococcal antigens are also pending. While endemic fungi (histo, blasto, coccidio) may look like it radiographically in immunocompromised pt, but patient has not been travelling outside [place]. At present time, she is on primaquine, clindamycin, doxycycline, meropenem and received one dose of vancomycin yesterday. The patient is on ICS/LABA/small systemic steroid dose (discussed small and relatively short steroid use in this patient with Dr. Chou--who suggested/agreed to continue it for now out of concern for potential PCP) as well. Whether or not continue with/initiate HAART medication at present time will be deferred to ID service and may also depend on preliminary diagnostic results of her sputum as well as blood and urine culture analysis (HAART is recommended to start within 2 wks of anti-mtb tx in CD-4 count less then 50). Nocardiosis is also on differential dx, but unfortunately patient is allergic to Bactrim, thus diagnostic workup has to be completed before deciding next step. TTE did not show any vegetation upon prelim review. I will touch base with cardiology service to confirm that and to weigh need/risks/benefits/diagnostic yield of LOUISA if blood culture remains negative. Possibility of noninfectious etiology for her pulmonary nodules is also there (e.g. necrotizing granulomatosis, RA); however, before embarking on that diagnostics/therapeutic path, infectious etiology has to be ruled out with high degree of certainty (treatment of autoimmune disorders that may present like pulmonary nodules, would involve immunosuppressive Rx, which would require ruling out infectious etiology anyway). We will continue to target euvolemia, euglycemia, normothermia, and oxygen saturation more than 90%. We will continue with DVT, GI prophylaxis. Meanwhile, we will also order echocardiogram, ProBNP, and troponin level. Addendum: Liver biopsy showed AFB few months ago, but no culture showed any growth (discussed with Dr. Chou). Will wait for sputum for culture, GS and 2-3 AFB sputum's smear/culture as well as mtb PCR. If not diagnostic, though, will have to decide as to the the best/safest way to get sample for culture and may be tissue (BM biopsy vs bronch). ccm time 40 min Simeon Sheridan MD KATHERINE
[2018-08-14] MEDS: Meropenem IV 1 gm in NS 1 GM/50 ML BAG IVPB SCH ×3 (06:34→21:28)
[2018-08-14] MEDS: Budesonide 0.5 mg/2 ml Inhal Susp UD IH SCH ×2 (07:26→20:00)
[2018-08-14] MEDS: Arformoterol 15 mcg/2 ml Inh Sol IH SCH ×2 (07:26→20:00)
[2018-08-14] MEDS: Levalbuterol 0.63 MG/3 ML Inhal Soln UD IH PRN ×2 (07:26→20:00)
[2018-08-14] MEDS: Ipratropium 0.02% Inhal Soln (0.5 mg/2.5 ml) UD IH PRN (07:26)
[2018-08-14 07:49] LABS: BASO # 0.01 K/mm3 (0.0-2.0); BASO % 0.2 % (0.0-3.0); EOS % 0.3 % (1.5-5.0); GRAN # 5.55 (1.4-6.5); GRAN % 85.1 % (50.0-68.0); HEMOGLOBIN 7.6 g/dL (12.0-16.0); LYMPH # 0.5 (1.2-3.4); LYMPH % 8.3 % (22.0-35.0); MEAN CELL VOLUME 86.1 fl (80.0-105.0); MEAN CORPUSCULAR HEMOGLOBIN 25.7 pg (25.0-35.0); MEAN CORPUSCULAR HGB CONC 29.8 g/dl (31.0-37.0); MEAN PLATELET VOLUME 10.2 fl (7.0-11.0); MONO # 0.4 (0.1-0.6); MONO % 6.1 % (1.0-6.0); RBC 2.96 10^6/uL (3.5-6.1); RED CELL DISTRIBUTION WIDTH 17.4 % (11.5-14.5); WHITE BLOOD COUNT 6.5 10^3/ul (4.5-11.0)
--- NOTE | 2018-08-14 07:49 | CP.PCM.PN ---
Subjective - Date & Time of Evaluation Date of Evaluation: 08/14/18 Time of Evaluation: 06:40 - Subjective Subjective: No distress,awake, alert, watching TV,complaining of back pain Reason for consultation and follow up: Cardiac evaluation of shortness of breath, history of cardiomyopathy,HIV, elevated troponin Seen and examined by me and Dr. Umaña Objective - Vital Signs/Intake and Output Vital Signs (last 24 hours): Temp Pulse Resp BP Pulse Ox 97.8 F 92 H 20 118/68 98 08/14/18 06:00 08/14/18 06:00 08/14/18 06:00 08/14/18 06:00 08/14/18 06:00 Intake and Output: 08/14/18 08/14/18 06:59 18:59 Intake Total 960 Output Total 400 Balance 560 - Medications Medications: Current Medications Acetaminophen (Tylenol 325mg Tab) 650 mg PO Q4H PRN PRN Reason: Fever >100.4 F Last Admin: 08/12/18 10:40 Dose: 650 mg Arformoterol Tartrate (Brovana) 15 mcg IH [id number] [facility] Last Admin: 08/14/18 07:26 Dose: 15 mcg Aspirin (Ecotrin) 81 mg PO DAILY [facility] Last Admin: 08/13/18 09:26 Dose: 81 mg Budesonide (Pulmicort Respules) 0.5 mg IH [id number] [facility] Last Admin: 08/14/18 07:26 Dose: 0.5 mg Clonazepam (Klonopin) 0.5 mg PO TID [facility]; Protocol Last Admin: 08/13/18 18:02 Dose: 0.5 mg Enoxaparin Sodium (Lovenox) 40 mg SC Q12 [facility]; Protocol Last Admin: 08/13/18 21:54 Dose: 40 mg Furosemide (Lasix) 20 mg IVP DAILY [facility] Last Admin: 08/13/18 09:26 Dose: 20 mg Doxycycline Hyclate 100 mg/ (Sodium Chloride) 100 mls @ 100 mls/hr IVPB Q12 [facility]; Protocol Last Admin: 08/13/18 21:54 Dose: 100 mls/hr Clindamycin Phosphate 900 mg/ (Sodium Chloride) 106 mls @ 106 mls/hr IVPB Q8 [facility]; Protocol Stop: 08/21/18 14:01 Last Admin: 08/14/18 06:35 Dose: 106 mls/hr Meropenem (Merrem Iv 1 Gm Premix) 1 gm in 50 mls @ 100 mls/hr IVPB Q8 [facility]; Protocol Stop: 08/21/18 14:01 Last Admin: 08/14/18 06:34 Dose: 100 mls/hr Ipratropium [place] (Atrovent) 0.5 mg IH [id number] PRN PRN Reason: Shortness of Breath Last Admin: 08/14/18 07:26 Dose: 0.5 mg Levalbuterol HCl (Xopenex) 0.63 mg IH [id number] PRN PRN Reason: Shortness of Breath Last Admin: 08/14/18 07:26 Dose: 0.63 mg Methadone HCl (Methadone) 100 mg PO DAILY [facility] Last Admin: 08/13/18 09:29 Dose: 100 mg Methylprednisolone (Solu-Medrol) 20 mg IVP DAILY [facility] Last Admin: 08/13/18 09:25 Dose: 20 mg Metoprolol Tartrate (Lopressor) 12.5 mg PO Q12 [facility] Last Admin: 08/13/18 21:54 Dose: 12.5 mg Pantoprazole Sodium (Protonix Inj) 40 mg IVP DAILY [facility] Last Admin: 08/13/18 09:30 Dose: 40 mg Primaquine Phosphate (Primaquine) 26.3 mg PO DAILY [facility]; Protocol Stop: 08/21/18 10:01 Last Admin: 08/13/18 09:26 Dose: 26.3 mg Tramadol HCl (Ultram) 50 mg PO Q8H PRN PRN Reason: Pain, moderate (4-7) Last Admin: 08/14/18 06:33 Dose: 50 mg - Labs Labs: 08/13/18 07:00 08/13/18 07:00 - Constitutional Appears: Non-toxic, No Acute Distress - Head Exam Head Exam: NORMAL INSPECTION, NORMOCEPHALIC - Eye Exam Eye Exam: Normal appearance Pupil Exam: NORMAL ACCOMODATION - ENT Exam ENT Exam: Mucous Membranes Moist, Normal Exam - Cardiovascular Exam Cardiovascular Exam: REGULAR RHYTHM, +S1, +S2 Additional comments: Telemetry NSR 70-80's - GI/Abdominal Exam GI & Abdominal Exam: Soft, Normal Bowel Sounds - Neurological Exam Neurological Exam: Alert, Awake, Oriented x3 - Psychiatric Exam Psychiatric exam: Normal Affect, Normal Mood - Skin Skin Exam: Dry, Normal Color, Warm Assessment and Plan - Assessment and Plan (Free Text) Assessment: A 38 year old female known to service who came in to the ER due to shortness of breath and chills. She was just recently hospitalized at [facility] for 2 weeks for the same symptoms stabilized and discharged, then after few days symptoms reoccurred. 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 Shortness of breath due to possible pneumonia, ID on consult, started on antibiotics. False positive elevated troponin due to underlying infection.On airborne isolation for AFB. Cardiac status stable.Echo done yesterday, Plan: Echo done- Normal size LV, LVEF 45% Systolic function mildly impaired Global hypokinesis of the LV Mitral valve vmoderately thickened Mild tricuspid regurgitation moderate pulmonary hypertension No vegetation seen No distress, watching TV, Chronic back pain Denies chest pain, on nasal cannula On airborne isolation, Positive for AFB and mycobacterium in liver Heart rate controlled Blood pressure controlled ID on consult Continue antibiotics as ordered Continue current treatment Continue medications Chart reviewed Will follow up Plan and treatment discussed with Dr. Umaña
[2018-08-14 08:11] LABS: ALB/GLOB RATIO 0.8 (1.1-1.8); ALBUMIN 2.4 g/dL (3.0-4.8); ALT/SGPT 17 U/L (7-56); AST/SGOT 21 U/L (14-36); BLOOD UREA NITROGEN 34 mg/dL (7-21); CALCIUM 8.6 mg/dL (8.4-10.5); GFR NON-AFRICAN AMERICAN > 60
[2018-08-14] MEDS: MethylPREDNISolone 40 mg Vial IVP SCH (09:26)
[2018-08-14] MEDS: Primaquine 26.3 mg Tab PO SCH (09:32)
[2018-08-14] MEDS: Enoxaparin 40 mg Syringe SC SCH ×2 (09:35→21:24)
--- NOTE | 2018-08-14 10:32 | CP.PCM.PN ---
<Suleman Murillo - Last Filed: 08/14/18 10:28> Subjective - Date & Time of Evaluation Date of Evaluation: 08/14/18 Time of Evaluation: 09:15 - Subjective Subjective: PGY-1 Medicine Progress Note for Dr. Bhatti's service Patient seen and examined at bedside. Patient reports back pain, chronic in nature. Patient denies fevers, chills, productive cough, sob, cp, n/v, constipation or diarrhea, dysuria. Objective - Vital Signs/Intake and Output Vital Signs (last 24 hours): Temp Pulse Resp BP Pulse Ox 97.8 F 109 H 20 121/86 98 08/14/18 06:00 08/14/18 09:34 08/14/18 06:00 08/14/18 09:34 08/14/18 06:00 Intake and Output: 08/14/18 08/14/18 06:59 18:59 Intake Total 960 Output Total 400 Balance 560 - Medications Medications: Current Medications Acetaminophen (Tylenol 325mg Tab) 650 mg PO Q4H PRN PRN Reason: Fever >100.4 F Last Admin: 08/12/18 10:40 Dose: 650 mg Arformoterol Tartrate (Brovana) 15 mcg IH [id number] [facility] Last Admin: 08/14/18 07:26 Dose: 15 mcg Aspirin (Ecotrin) 81 mg PO DAILY [facility] Last Admin: 08/14/18 09:32 Dose: 81 mg Budesonide (Pulmicort Respules) 0.5 mg IH [id number] [facility] Last Admin: 08/14/18 07:26 Dose: 0.5 mg Clonazepam (Klonopin) 0.5 mg PO TID [facility]; Protocol Last Admin: 08/14/18 09:37 Dose: 0.5 mg Doxycycline Hyclate (Doryx) 100 mg PO Q12 [facility]; Protocol Stop: 08/21/18 10:01 Last Admin: 08/14/18 09:32 Dose: 100 mg Enoxaparin Sodium (Lovenox) 40 mg SC Q12 [facility]; Protocol Last Admin: 08/14/18 09:35 Dose: 40 mg Furosemide (Lasix) 20 mg IVP DAILY [facility] Last Admin: 08/14/18 09:32 Dose: 20 mg Furosemide (Lasix) 20 mg IVP ONCE ONE Stop: 08/14/18 13:01 Clindamycin Phosphate 900 mg/ (Sodium Chloride) 106 mls @ 106 mls/hr IVPB Q8 [facility]; Protocol Stop: 08/21/18 14:01 Last Admin: 08/14/18 06:35 Dose: 106 mls/hr Meropenem (Merrem Iv 1 Gm Premix) 1 gm in 50 mls @ 100 mls/hr IVPB Q8 [facility]; Protocol Stop: 08/21/18 14:01 Last Admin: 08/14/18 06:34 Dose: 100 mls/hr Ipratropium [place] (Atrovent) 0.5 mg IH [id number] PRN PRN Reason: Shortness of Breath Last Admin: 08/14/18 07:26 Dose: 0.5 mg Levalbuterol HCl (Xopenex) 0.63 mg IH [id number] PRN PRN Reason: Shortness of Breath Last Admin: 08/14/18 07:26 Dose: 0.63 mg Methadone HCl (Methadone) 100 mg PO DAILY [facility] Last Admin: 08/14/18 09:33 Dose: 100 mg Methylprednisolone (Solu-Medrol) 20 mg IVP DAILY [facility] Last Admin: 08/14/18 09:26 Dose: 20 mg Metoprolol Tartrate (Lopressor) 12.5 mg PO Q12 [facility] Last Admin: 08/14/18 09:34 Dose: 12.5 mg Pantoprazole Sodium (Protonix Inj) 40 mg IVP DAILY [facility] Last Admin: 08/14/18 09:34 Dose: 40 mg Primaquine Phosphate (Primaquine) 26.3 mg PO DAILY [facility]; Protocol Stop: 08/21/18 10:01 Last Admin: 08/14/18 09:32 Dose: 26.3 mg Tramadol HCl (Ultram) 50 mg PO Q8H PRN PRN Reason: Pain, moderate (4-7) Last Admin: 08/14/18 06:33 Dose: 50 mg - Labs Labs: 08/14/18 07:00 08/14/18 07:25 - Constitutional Appears: Non-toxic, No Acute Distress - Head Exam Head Exam: NORMAL INSPECTION, NORMOCEPHALIC - Eye Exam Eye Exam: EOMI, Normal appearance. absent: Nystagmus, Scleral icterus - ENT Exam ENT Exam: Mucous Membranes Moist - Respiratory Exam Respiratory Exam: Clear to Ausculation Bilateral, NORMAL BREATHING PATTERN. absent: Rhonchi, Wheezes, Respiratory Distress - Cardiovascular Exam Cardiovascular Exam: REGULAR RHYTHM, +S1, +S2 - GI/Abdominal Exam GI & Abdominal Exam: Soft, Normal Bowel Sounds. absent: Distended, Firm, Guarding, Rigid, Tenderness - Extremities Exam Extremities Exam: Pedal Edema. absent: Calf Tenderness, Normal Inspection - Neurological Exam Neurological Exam: Alert, Awake, Oriented x3 - Psychiatric Exam Psychiatric exam: Anxious - Skin Skin Exam: Intact, Normal Color Assessment and Plan - Assessment and Plan (Free Text) Assessment: 38 year old female with past medical history of HIV with CD4 of 1 on 03/11/18, EBV, CMV, HSV, COPD, asthma, heroin abuse, CHF with LVEF=35% on 04/11 presents after being diagnosed with mycobacterium by liver biopsy by Dr. Joseph. Concern for TB due to prior biospy. Chest CT ordered showed nodules concerning for TB vs malignancy. Improved breathing s/p bipap; currently on 4L of [place] Repeat Echo shows 45.4%; moderate pulm HTN and mild TR. Plan: Pneumonia ID consulted - Dr. Chou- recommendations as below Pulm consulted- Dr. Haddad- recommendations as below 08-12 Cxray- bilateral lower lobe infiltrates; nodular densities in the right upper lobe; findings are most consistent with a multi focal pneumonia - Chest Ct- Innumerable nodular opacities throughout bilateral lung asif as delineated above including 1 nodule with probable cavitations. Malignant neoplasm vs Infection (TB or fungal infection) vs inflammatory nodules; Bilateral R>L consolidations and small bilateral pleural effusions; calcified right hilar and mediastinal lymph nodes Afebrile; no leukocytosis noted Sputum cx pendings; Urine pna studies pending Induction of sputum planned with Resp therapist Doxycycline IVPB q12 [facility] Meropenem IVPB q8 benjamin Clindamycin IVPB q8 benjamin Primaquine 26.3mg po daily Urine Cx positive for gram positive cocci Asymptomatic Doxycycline IVPB q12 benjamin Meropenem IVPB q8 benjamin Clindamycin IVPB q8 benjamin Primaquine 26.3mg po daily Hx of Mcycobacterium Liver biopsy by Dr. Joseph Sputum culture pending Hx of CHF Cardio consulted- Dr. Umaña- recommendations as below Echo shows 45.4%; mild TR; moderate pHTN Lopressor 12.5mg po q12 benjamin Lasix 20mg IVP daily Aspirin 81mg po daily 1x dose Lasix 20mg IVP daily Hx of COPD Brovana 15mcg [id number] benjamin Pulmicort 0.5mg [id number] benjamin Atrovent 0.5mg q6h resp prn Xopenex 0.63 mg IH q6h resp Solumedrol 20mg IVP daily benjamin ABG was within normal limits Hx of Heroin abuse Methadone 100mg po daily benjamin Hx of anxiety Klonopin 0.5mg po tid benjamin Hx of chronic back pain Tramadol 50mg po q8h prn Tylenol 650mg po q4h prn PPx GI ppx- Protonix 40mg po q12 DVT ppx- Lovenox 40mg sc q12 Medical Management discussed with Dr. Davy Murillo PGY-1 <Cara Bhatti - Last Filed: 08/14/18 14:40> Objective - Vital Signs/Intake and Output Vital Signs (last 24 hours): Temp Pulse Resp BP Pulse Ox 99.1 F 117 H 19 114/76 98 08/14/18 12:00 08/14/18 12:00 08/14/18 12:00 08/14/18 13:13 08/14/18 06:00 Intake and Output: 08/14/18 08/14/18 06:59 18:59 Intake Total 960 Output Total 400 Balance 560 - Medications Medications: Current Medications Acetaminophen (Tylenol 325mg Tab) 650 mg PO Q4H PRN PRN Reason: Fever >100.4 F Last Admin: 08/12/18 10:40 Dose: 650 mg Arformoterol Tartrate (Brovana) 15 mcg IH [id number] [facility] Last Admin: 08/14/18 07:26 Dose: 15 mcg Aspirin (Ecotrin) 81 mg PO DAILY [facility] Last Admin: 08/14/18 09:32 Dose: 81 mg Budesonide (Pulmicort Respules) 0.5 mg IH [id number] [facility] Last Admin: 08/14/18 07:26 Dose: 0.5 mg Clonazepam (Klonopin) 0.5 mg PO TID [facility]; Protocol Last Admin: 08/14/18 13:11 Dose: 0.5 mg Doxycycline Hyclate (Doryx) 100 mg PO Q12 [facility]; Protocol Stop: 08/21/18 10:01 Last Admin: 08/14/18 09:32 Dose: 100 mg Enoxaparin Sodium (Lovenox) 40 mg SC Q12 [facility]; Protocol Last Admin: 08/14/18 09:35 Dose: 40 mg Furosemide (Lasix) 20 mg IVP DAILY [facility] Last Admin: 08/14/18 09:32 Dose: 20 mg Clindamycin Phosphate 900 mg/ (Sodium Chloride) 106 mls @ 106 mls/hr IVPB Q8 [facility]; Protocol Stop: 08/21/18 14:01 Last Admin: 08/14/18 13:12 Dose: 106 mls/hr Meropenem (Merrem Iv 1 Gm Premix) 1 gm in 50 mls @ 100 mls/hr IVPB Q8 [facility]; Protocol Stop: 08/21/18 14:01 Last Admin: 08/14/18 13:11 Dose: 100 mls/hr Ipratropium [place] (Atrovent) 0.5 mg IH [id number] PRN PRN Reason: Shortness of Breath Last Admin: 08/14/18 07:26 Dose: 0.5 mg Levalbuterol HCl (Xopenex) 0.63 mg IH [id number] PRN PRN Reason: Shortness of Breath Last Admin: 08/14/18 07:26 Dose: 0.63 mg Methadone HCl (Methadone) 100 mg PO DAILY [facility] Last Admin: 08/14/18 09:33 Dose: 100 mg Methylprednisolone (Solu-Medrol) 20 mg IVP DAILY [facility] Last Admin: 08/14/18 09:26 Dose: 20 mg Metoprolol Tartrate (Lopressor) 12.5 mg PO Q12 [facility] Last Admin: 08/14/18 09:34 Dose: 12.5 mg Pantoprazole Sodium (Protonix Inj) 40 mg IVP DAILY [facility] Last Admin: 08/14/18 09:34 Dose: 40 mg Primaquine Phosphate (Primaquine) 26.3 mg PO DAILY [facility]; Protocol Stop: 08/21/18 10:01 Last Admin: 08/14/18 09:32 Dose: 26.3 mg Tramadol HCl (Ultram) 50 mg PO Q8H PRN PRN Reason: Pain, moderate (4-7) Last Admin: 08/14/18 06:33 Dose: 50 mg - Labs Labs: 08/14/18 07:00 08/14/18 07:25 Attending/Attestation - Attestation I have personally seen and examined this patient.: Yes I have fully participated in the care of the patient.: Yes I have reviewed all pertinent clinical information, including history, physical exam and plan: Yes Notes (Text): 08/14/18 14:38 Medical record note made by the resident after discussion with my direction and input after the patient was personally seen and examined by me. I have reviewed the chart and agree that the record accurately reflects by personal performance of the history, physical exam, data review, and medical decision-making, in the course for the patient. I have also personally directed the plan of care. 38yo female with PMH of HIV/AIDS, CD4<20 on 03/11/18, EBV, CMV, HSV, COPD, asthma, heroin abuse, CHF with LVEF=35%, presents with weakness, fatigue, and worsening SOB for last 4 days. Pt was just recently discharged from [facility], for PNA, and systolic heart failure. .CT chest showed Innumerable nodular opacities throughout bilateral lung asif as delineated above including 1 nodule with probable cavitation. Malignant neoplasm vs Infection (TB or fungal infection) vs inflammatory nodules; Bilateral R>L consolidations and small bilateral pleural effusions; calcified right hilar and mediastinal lymph nodes. Patient is on Resp Isolation to rule out TB, on IV antibiotics for possible PJP Pneumonia as per ID. Tachycardia and hypoxia is improving. Prognosis is guarded
--- NOTE | 2018-08-14 17:04 | PN ---
DATE: 08/14/2018 SUBJECTIVE: The patient is in bed, in no acute distress, nontoxic. PHYSICAL EXAMINATION: VITAL SIGNS: Temperature is 97, blood pressure is 118/60, respiratory rate of 18. HEENT: Unremarkable. NECK: Supple. LUNGS: Have decreased breath sounds. HEART: Normal S1, S2. ABDOMINAL: Soft, nontender. LABORATORY EXAMINATION: Reveals a white count of 6.5, hemoglobin of 7, platelets of 106. Chemistries reveals a BUN of 34, creatinine of 0.7. Toxicology is noted. Microbiology reveals the urine culture is gram-positive cocci and the blood cultures are negative. Sputum cultures are pending. The patient's echo reveals no vegetations. Ejection fraction of 45%. The patient had a CAT scan of the chest, which is reviewed with number of nodular opacities. Review of orders reveals a CMV, PCR, Cryptococcus, Aspergillus, Mycobacterium PCR pending. The patient thus far has had negative blood cultures. The sputum cultures are pending. There is Gram-positive cocci in the urine. The patient is on clindamycin, doxycycline IV, which I will change to p.o. The patient is also on primaquine and meropenem in face of multiple allergies including quinolones, penicillin, sulfa, Bactrim, Zithromax and limited options for empiric ARCELIA therapy. The patient did have a positive AFB on the liver biopsy, but no cultures were available. All cultures thus far from previous admissions are negative for AFB cultures. On 06/20/2018, the sputum AFB culture is negative and on 08/02/2018, another sputum culture for AFB is negative. On 06/20/2018, another sputum culture AFB is negative. On 06/18/2018, another sputum culture is negative. On 06/07/2018, another AFB culture is negative. The source of that is written as other that is from 07/20/2018. A final report on 06/07/2018 was the time of collection. The AFB smear was from 06/09/2018, that was a CAT scan directed biopsy of the liver which showed AFB as positive by Dr. Andrea Pierre and that was collected on 06/09/2018. Unfortunately, I do not have a microbiology from the liver biopsy from 06/09/2018. ASSESSMENT AND PLAN: A 38-year-old who has persistently been noncompliant with all her medications, all her care because of multiple discussions with her about the importance of followup who has end-stage acquired immune deficiency syndrome, chronic obstructive lung disease, Pneumocystis carinii pneumonia, positive AFB on the liver biopsy, intravenous drug abuser, congestive heart failure with low ejection fracture, history of hepatitis C, now is admitted with low T-cells and sepsis with healthcare-associated pneumonia, Pneumocystis carinii pneumonia, must rule out underlying tuberculosis, Mycobacterium avium complex versus Mycobacterium tuberculosis, other opportunistic infections. Prognosis is quite poor. Case discussed with Dr. Sheridan at length yesterday and etiology of those pulmonary numerous nodules is not clear. We will continue the present course and follow with you. Cheikh Chou MD
--- NOTE | 2018-08-14 21:21 | PN ---
DATE: 08/14/2018 SUBJECTIVE: The patient is seen and examined at bedside. She is doing subjectively better. She reports the cough is less, the sputum production is less. Also, pain is much better controlled. PHYSICAL EXAMINATION: VITAL SIGNS: Heart rate 117, temperature 99.1, blood pressure 114/76, respiratory rate 19. HEENT: Head and neck atraumatic. LUNGS: Clear to auscultation bilaterally. HEART: Regular rate and rhythm. S1 and S2 normal. ABDOMEN: Soft, nontender, nondistended. MUSCULOSKELETAL: Trace bilateral pedal and ankle edema. NEUROLOGIC: The patient moves all extremities spontaneously. SKIN: Moist. PSYCHIATRIC: The patient is alert, awake, oriented, more comfortable today. LABORATORY DATA: WBC 6.5, hemoglobin 7.6, platelet count 106. Sodium 141, potassium 4.2, chloride 109, carbon dioxide 31, BUN 34, creatinine 0.7, glucose 85. AST 21, ALT 17, total bilirubin 0.2. MEDICATIONS: Tylenol p.r.n., Brovana, aspirin, Pulmicort, clindamycin, Klonopin, Doryx, Lovenox 40 mg subcu every 12 hours, Lasix 20 mg IV daily, Atrovent p.r.n., Xopenex p.r.n., meropenem, methadone, Solu-Medrol 20 mg IV daily, Protonix, metoprolol, primaquine, and tramadol p.r.n. ASSESSMENT AND PLAN: This is a 38-year-old lady who presented with nodular opacities and bilateral consolidation in the setting of fever, leukocytosis, and cough with sputum production. At present time, she has been treated for healthcare/hospital associated pneumonia with empiric coverage for potential pneumocystis pneumonia by ID service. The patient appears to be doing subjectively better. However, rapid progression of nodular opacities compared with CAT scan done approximately 3 months ago is a bit concerning. The patient is currently on airborne isolation and sputum has been sent for AFB analysis and MTB PCR. We will try to obtain sample for microbiology analysis and potentially tissue for pathology analysis will be considered if standard septic workup returns negative. We will continue target euvolemia, euglycemia, normothermia, and oxygen saturation more than 90%. We will continue with DVT, GI prophylaxis. Simeon Sheridan MD Mark # [id number] KATHERINE
[2018-08-15] MEDS: Meropenem IV 1 gm in NS 1 GM/50 ML BAG IVPB SCH ×3 (05:18→22:58)
[2018-08-15] MEDS: Pantoprazole 40 mg EC Tab PO SCH (05:19)
[2018-08-15 06:37] LABS: BASO # 0.01 K/mm3 (0.0-2.0); BASO % 0.1 % (0.0-3.0); EOS % 0.1 % (1.5-5.0); GRAN # 5.59 (1.4-6.5); GRAN % 83.3 % (50.0-68.0); HEMOGLOBIN 8.1 g/dL (12.0-16.0); LYMPH # 0.7 (1.2-3.4); LYMPH % 10.4 % (22.0-35.0); MEAN CELL VOLUME 85.9 fl (80.0-105.0); MEAN CORPUSCULAR HGB CONC 30.2 g/dl (31.0-37.0); MEAN PLATELET VOLUME 10.6 fl (7.0-11.0); MONO # 0.4 (0.1-0.6); MONO % 6.1 % (1.0-6.0); RBC 3.12 10^6/uL (3.5-6.1); RED CELL DISTRIBUTION WIDTH 17.2 % (11.5-14.5); WHITE BLOOD COUNT 6.7 10^3/ul (4.5-11.0)
[2018-08-15 06:57] LABS: ALB/GLOB RATIO 0.9 (1.1-1.8); ALBUMIN 2.5 g/dL (3.0-4.8); ALT/SGPT 25 U/L (7-56); AST/SGOT 25 U/L (14-36); BLOOD UREA NITROGEN 30 mg/dL (7-21); CALCIUM 8.7 mg/dL (8.4-10.5); GFR NON-AFRICAN AMERICAN > 60
--- NOTE | 2018-08-15 08:00 | CP.PCM.PN ---
Subjective - Date & Time of Evaluation Date of Evaluation: 08/15/18 Time of Evaluation: 08:00 - Subjective Subjective: PGY-1 Medicine Progress Note for Dr. Cox Patient seen and examined at bedside this AM, in no acute distress. No acute overnight events reported. Patient continued to endorse back pain, chronic in nature. Patient also endorses productive cough with intermittent sputum production. Of note, she states sputum was brown this morning for the first time; typically it is clear. No fevers/chills, chest pain, palpitations, sob, n/v/d/c, dysuria, or changes in stool. Objective - Vital Signs/Intake and Output Vital Signs (last 24 hours): Temp Pulse Resp BP Pulse Ox 97.9 F 103 H 20 117/79 92 L 08/15/18 06:00 08/15/18 06:00 08/15/18 06:00 08/15/18 06:00 08/15/18 06:00 Intake and Output: 08/15/18 08/15/18 06:59 18:59 Intake Total 660 540 Output Total 1150 Balance -490 540 - Medications Medications: Current Medications Acetaminophen (Tylenol 325mg Tab) 650 mg PO Q4H PRN PRN Reason: Fever >100.4 F Last Admin: 08/15/18 07:38 Dose: 650 mg Arformoterol Tartrate (Brovana) 15 mcg IH [id number] [facility] Last Admin: 08/14/18 20:00 Dose: 15 mcg Aspirin (Ecotrin) 81 mg PO DAILY [facility] Last Admin: 08/14/18 09:32 Dose: 81 mg Budesonide (Pulmicort Respules) 0.5 mg IH [id number] [facility] Last Admin: 08/14/18 20:00 Dose: 0.5 mg Clonazepam (Klonopin) 0.5 mg PO TID [facility]; Protocol Last Admin: 08/14/18 17:33 Dose: 0.5 mg Doxycycline Hyclate (Doryx) 100 mg PO Q12 [facility]; Protocol Stop: 08/21/18 10:01 Last Admin: 08/14/18 21:28 Dose: 100 mg Enoxaparin Sodium (Lovenox) 40 mg SC Q12 [facility]; Protocol Last Admin: 08/14/18 21:24 Dose: 40 mg Furosemide (Lasix) 20 mg IVP DAILY [facility] Last Admin: 08/14/18 09:32 Dose: 20 mg Clindamycin Phosphate 900 mg/ (Sodium Chloride) 106 mls @ 106 mls/hr IVPB Q8 [facility]; Protocol Stop: 08/21/18 14:01 Last Admin: 08/15/18 05:19 Dose: 106 mls/hr Meropenem (Merrem Iv 1 Gm Premix) 1 gm in 50 mls @ 100 mls/hr IVPB Q8 [facility]; Protocol Stop: 08/21/18 14:01 Last Admin: 08/15/18 05:18 Dose: 100 mls/hr Ipratropium [place] (Atrovent) 0.5 mg IH [id number] PRN PRN Reason: Shortness of Breath Last Admin: 08/14/18 07:26 Dose: 0.5 mg Levalbuterol HCl (Xopenex) 0.63 mg IH [id number] PRN PRN Reason: Shortness of Breath Last Admin: 08/14/18 20:00 Dose: 0.63 mg Methadone HCl (Methadone) 100 mg PO DAILY [facility] Last Admin: 08/14/18 09:33 Dose: 100 mg Methylprednisolone (Solu-Medrol) 20 mg IVP DAILY [facility] Last Admin: 08/14/18 09:26 Dose: 20 mg Metoprolol Tartrate (Lopressor) 12.5 mg PO Q12 [facility] Last Admin: 08/14/18 21:25 Dose: 12.5 mg Pantoprazole Sodium (Protonix Ec Tab) 40 mg PO 0600 [facility] Last Admin: 08/15/18 05:19 Dose: 40 mg Primaquine Phosphate (Primaquine) 26.3 mg PO DAILY [facility]; Protocol Stop: 08/21/18 10:01 Last Admin: 08/14/18 09:32 Dose: 26.3 mg Tramadol HCl (Ultram) 50 mg PO Q8H PRN PRN Reason: Pain, moderate (4-7) Last Admin: 08/15/18 05:42 Dose: 50 mg - Labs Labs: 08/15/18 05:50 08/15/18 05:50 - Constitutional Appears: Non-toxic, No Acute Distress - Head Exam Head Exam: ATRAUMATIC, NORMAL INSPECTION, NORMOCEPHALIC - Eye Exam Eye Exam: EOMI, Normal appearance Pupil Exam: NORMAL ACCOMODATION - ENT Exam ENT Exam: Mucous Membranes Moist, Normal Exam - Neck Exam Neck Exam: Full ROM, Normal Inspection - Respiratory Exam Respiratory Exam: Clear to Ausculation Bilateral, NORMAL BREATHING PATTERN. absent: Chest Wall Tenderness, Rales, Rhonchi, Wheezes, Respiratory Distress, Stridor - Cardiovascular Exam Cardiovascular Exam: REGULAR RHYTHM, +S1, +S2 - GI/Abdominal Exam GI & Abdominal Exam: Soft, Normal Bowel Sounds. absent: Distended, Firm, Guarding, Rigid, Tenderness, Mass, Rebound - Extremities Exam Extremities Exam: Normal Capillary Refill, Normal Inspection. 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 Joseph. Concern for TB due to prior biospy. Chest CT demonstrates multiple cavitary nodules throughout b/l lung asif. Malignant neoplasm vs infection (TB or fungal infection) vs inflammatory nodules; Bilateral R>L consolidations and small bilateral pleural effusions; calcified right hilar and mediastinal lymph nodes. Plan: Multifocal pneumonia, r/o pulmonary TB vs other opportunistic infection --patient is afebrile, no leukocytosis noted --Cryptococcus Ag screen negative --legionella negative --f/u AFB sputum and culture --ID recs (Dr. Chou) appreciated -etiology of pulmonary nodules not clear at this time -must rule out underlying TB, MAC-complex vs mycobacterium TB, other opportunistic infection -continue current course of treatment as outlined below --Pulm recs (Dr. Haddad) appreciated -CXR (08/12): with b/l lower lobe consolidations -CT chest w/o contrast (08/12): innumerable nodular opacities throughout bilateral lung asif as delineated above including 1 nodule with probable cavitations. Malignant neoplasm vs Infection (TB or fungal infection) vs inflammatory nodules; Bilateral R>L consolidations and small bilateral pleural effusions; calcified right hilar and mediastinal lymph nodes -c/w supp O2 as needed, goal sat 90%, duonebs PRN, IS -ABx as per ID, covering for HCAP, MRSA -consider covering for PCP, although less likely --Medications -Doxycycline IVPB q12 [facility] -Meropenem IVPB q8 [facility] -Clindamycin IVPB q8 benjamin -Primaquine 26.3mg PO daily Urine Cx positive for gram positive cocci --Asymptomatic --Medications -Doxycycline IVPB q12 [facility] -Meropenem IVPB q8 [facility] -Clindamycin IVPB q8 benjamin -Primaquine 26.3mg po daily Hx Positive AFB on Liver Bx (Dr. Joseph) --Liver biopsy by Dr. Joseph --f/u AFB sputum and culture Hx of CHF --Cardio recs (Dr. Umaña) appreciated -ECHO: 45.4%; mild TR; moderate pHTN --Medications -Lopressor 12.5mg po q12 benjamin -Lasix 20mg IVP daily -Aspirin 81mg po daily -1x dose Lasix 20mg IVP daily Hx of COPD --ABG wnl --Medications -Brovana 15mcg [id number] benjamin -Pulmicort 0.5mg [id number] benjamin -Atrovent 0.5mg q6h resp prn -Xopenex 0.63 mg IH q6h resp -Solumedrol 20mg IVP daily benjamin Hx of Heroin abuse --Methadone 100mg po daily benjamin Hx of anxiety --Klonopin 0.5mg po tid benjamin Hx of chronic back pain --Tramadol 50mg po q8h prn --Tylenol 650mg po q4h prn PPx, Diet, Disposition --GI ppx: Protonix 40mg po q12 --DVT ppx: Lovenox 40mg sc q12 --Diet: HHD --Disposition: pt is on resp isolation to r/o TB, on IV abx for possible PCP PNA per ID Case discussed with Dr. Brooke Altamirano DO, PGY-1
[2018-08-15] MEDS: Arformoterol 15 mcg/2 ml Inh Sol IH SCH ×2 (08:07→19:49)
[2018-08-15] MEDS: Budesonide 0.5 mg/2 ml Inhal Susp UD IH SCH ×2 (08:07→19:49)
--- NOTE | 2018-08-15 08:38 | PN ---
DATE: 08/13/2018 SUBJECTIVE: The patient is in bed in no acute distress, nontoxic. OBJECTIVE: VITAL SIGNS: Temperature is 98, T-max is 101.9 which is improved, blood pressure is 94/60, respiratory rate of 18, heart rate of 99. HEENT: Unremarkable. NECK: Supple. LUNGS: Have decreased breath sounds. HEART: Normal S1, S2. ABDOMEN: Soft, nontender. LABORATORY EXAMINATION: Reveals a white count of 5.7, hemoglobin of 7.7, platelets of 95. Chemistries reveals a BUN of 35, creatinine of 0.8, procalcitonin 0.63. Urinalysis is noted. Microbiology reveals the urine cultures are gram-positive cocci, 50,000 colonies to 100,000 colonies. Blood cultures are negative. Review of orders reveals the patient to have CMV, PCR, Cryptococcus, Aspergillus, Fungitell is pending. Urine for Legionella has not been collected yet. The patient is on meropenem, doxycycline. The patient has received vancomycin, now on clindamycin and primaquine. The patient also had a CAT scan of the chest. A new number of nodular opacity, one nodule with probable cavitation, bilateral left greater than the right dependent consolidations and small bilateral pleural effusions calcified right knee hilar and mediastinal nodes. ASSESSMENT AND PLAN: A 38-year-old with end-stage acquired immunodeficiency syndrome, chronic obstructive lung disease, asthma, intravenous drug abuser, congestive heart failure, hepatitis C, liver biopsy positive for acid-fast bacilli smears, low ejection fraction of 35%, #1 is sepsis with healthcare-associated pneumonia with possible Pneumocystis carinii pneumonia or Pneumocystis jiroveci pneumonia, and the patient with end-stage acquired immunodeficiency syndrome. Workup in process. Continue present course. Cheikh Chou MD
--- NOTE | 2018-08-15 09:35 | PROCN ---
DATE: 08/13/2018 LOCATION: The patient is in room 268, bed 1. SUBJECTIVE: The patient is known case of HIV, cardiomyopathy, EBV, CMV, COPD, asthma, PCP, mycobacterium positive on liver biopsy. Admitted with pneumonia, shortness of breath, also having sinus tachycardia. Troponin was slightly elevated. The patient on the previous admission also had troponins slightly elevated, so it probably falls positive or may be related to her underlying cardiomyopathy. The patient is still complaining shortness of breath. Her heart rate has slowed down. I started metoprolol yesterday. Heart rate is slowed down now compared to before. Blood pressure 123/85, respirations 18, pulse 119, temperature 97.9. We will continue present antibiotic therapy and the medication along with metoprolol I added and we will monitor the patient with you. Cara Umaña MD
[2018-08-15] MEDS: Enoxaparin 40 mg Syringe SC SCH ×2 (09:36→21:54)
[2018-08-15] MEDS: MethylPREDNISolone 40 mg Vial IVP SCH (09:38)
[2018-08-15] MEDS: Primaquine 26.3 mg Tab PO SCH (09:38)
--- NOTE | 2018-08-15 09:52 | PN ---
DATE: 08/14/2018 This is an addendum to the progress note dictated by Missy Prescott. LOCATION: The patient is in room 268, bed 1. SUBJECTIVE: The patient was admitted with shortness of breath. Found to have pneumonia. The patient also had tachycardia related to underlying pulmonary status with pneumonia and sepsis. The patient also has history of cardiomyopathy, HIV, EBV, CMV, COPD, asthma, PCP, liver biopsy in 03/2018 showed mycobacterium. Echo was done yesterday. It showed LV ejection fraction of 45%. Mildly impaired LV systolic function. Mild tricuspid regurg. Moderate pulmonary hypertension with RVSP 56 mmHg. The patient's sinus tachycardia has improved with metoprolol 12.5 mg every 12 hours. The patient is getting furosemide 20 IV daily, aspirin 81 daily, doxycycline hyclate 100 mg p.o. every 12 hours, hand nebulizer therapy, meropenem 1 g IV every 8 hours, methadone 100 mg daily, primaquine 26.3 mg p.o. daily, Protonix 40 daily, methylprednisolone 20 mg IV daily. The patient's troponin was slightly elevated, but the patient has history of troponin elevation in the past also, so probably it is related to cardiomyopathy or it is nonspecific. I will continue present . Cara Umaña MD
--- NOTE | 2018-08-15 19:17 | PN ---
DATE: 08/15/2018 SUBJECTIVE: The patient is in bed, in no acute distress, nontoxic. PHYSICAL EXAMINATION: VITAL SIGNS: Temperature is 98, blood pressure is 92/50, respiratory rate of 18, heart rate of 80. HEENT: Unremarkable. NECK: Supple. LUNGS: Have decreased breath sounds. HEART: Normal S1, S2. ABDOMINAL: Soft. LABORATORY EXAMINATION: Reveals a white count of 6.7, hemoglobin of 8, platelets of 106. Chemistries were noted. Urinalysis is noted. Toxicology is reviewed. Microbiology reveals sputum culture has no organism seen, mold isolated, for identification. Urine culture is noted. Blood cultures are no growth. Review of the laboratories are noted. ASSESSMENT AND PLAN: A 38-year-old female with end-stage acquired immune deficiency syndrome, has had multiple episodes of Pneumocystis carinii pneumonia, low T-cells, noncompliance with any medications, intravenous drug abuser, now has mold in the sputum, concern about Aspergillus. We will add voriconazole. Pending identification and sensitivity of the mold in the sputum. Acid-fast bacilli workup is in progress. Pneumocystis carinii pneumonia workup is in progress. Patient is currently on clindamycin, doxycycline, meropenem, primaquine, Solu-Medrol, now we will add voriconazole and we will follow closely with you. Cheikh Chou MD
[2018-08-16] MEDS: Pantoprazole 40 mg EC Tab PO SCH (05:11)
[2018-08-16] MEDS: Meropenem IV 1 gm in NS 1 GM/50 ML BAG IVPB SCH ×3 (05:11→21:57)
--- NOTE | 2018-08-16 06:16 | PN ---
DATE: 08/15/2018 REASON FOR THE CONSULTATION AND FOLLOWUP: Shortness of breath, pneumonia, rule out TB, HIV, possible AIDS. SUBJECTIVE: Denies any chest pain, shortness of breath or any palpitation. Complaining of back pain and pain in her lung. Lying flat on the bed. OBJECTIVE: GENERAL: Not in apparent distress. VITAL SIGNS: Temperature afebrile, heart rate 90, blood pressure 117/79. HEENT: PERRLA. Extraocular muscles intact. NECK: Supple. No carotid bruit. No thyromegaly. CHEST: Clear to auscultation. HEART: S1 and S2 regular. ABDOMEN: Soft. EXTREMITIES: Clubbing and cyanosis negative. LABORATORY DATA: Blood workup as follows; WBC of 6.7, hemoglobin 8.1, hematocrit 26.8, platelet count 106. Chemistry shows sodium 130, potassium 4.5, chloride 100, carbon dioxide 35, anion gap , BUN , creatinine 0.6, total protein 5.3, albumin 2.5, albumin and globulin ratio 0.9. IMPRESSION: Anemia, aegoeoxy-md-gzaplh protein calorie malnutrition, which was present on admission, it was moderate; human immunodeficiency virus positive, acquired immune deficiency syndrome' cardiomyopathy possibly related to human immunodeficiency virus related disease. Yesterday, the patient had an echocardiography done, read by Dr. Dodson that revealed ejection fraction mildly impaired, calculated ejection fraction 45%, global hypokinesis. No vegetation noted. Mild tricuspid regurgitation. Blood culture negative. A 38-year-old female with past medical history significant for human immunodeficiency virus, acquired immune deficiency syndrome, cardiomyopathy, human immunodeficiency virus related Rbian Coker virus, Cytomegalovirus, chronic obstructive pulmonary disease, asthma, Pneumocystis carinii pneumonia, Mycobacterium positive and liver biopsy. Admitted with pneumonia, shortness of breath. The patient is on isolation for possible TB. Recent echo shows ejection fraction of 45%. No obvious vegetation noted. RECOMMENDATION: Aggressively treat medically for HIV-related disease. CVS status is stable. We will discontinue telemetry. No further cardiac workup is planned or warranted. Increase nutritional support. Thank you, Dr. Bhatti for providing us the opportunity in taking care of the patient, Veronica Gaspar. Cara Veliz MD [facility] # [id number]
[2018-08-16 07:13] LABS: BASO # 0.01 K/mm3 (0.0-2.0); BASO % 0.1 % (0.0-3.0); EOS # 0.1 (0.0-0.7); EOS % 0.7 % (1.5-5.0); GRAN # 5.8 (1.4-6.5); GRAN % 83.2 % (50.0-68.0); HEMOGLOBIN 7.2 g/dL (12.0-16.0); LYMPH # 0.6 (1.2-3.4); LYMPH % 8.5 % (22.0-35.0); MEAN CELL VOLUME 85.5 fl (80.0-105.0); MEAN CORPUSCULAR HEMOGLOBIN 26.1 pg (25.0-35.0); MEAN CORPUSCULAR HGB CONC 30.5 g/dl (31.0-37.0); MEAN PLATELET VOLUME 10.2 fl (7.0-11.0); MONO # 0.5 (0.1-0.6); MONO % 7.5 % (1.0-6.0); RBC 2.76 10^6/uL (3.5-6.1); RED CELL DISTRIBUTION WIDTH 16.9 % (11.5-14.5)
[2018-08-16 07:50] LABS: ALB/GLOB RATIO 0.8 (1.1-1.8); ALBUMIN 2.4 g/dL (3.0-4.8); ALT/SGPT 19 U/L (7-56); AST/SGOT 32 U/L (14-36); BLOOD UREA NITROGEN 30 mg/dL (7-21); CALCIUM 8.8 mg/dL (8.4-10.5); GFR NON-AFRICAN AMERICAN > 60
[2018-08-16] MEDS: Arformoterol 15 mcg/2 ml Inh Sol IH SCH ×2 (08:01→20:40)
[2018-08-16] MEDS: Budesonide 0.5 mg/2 ml Inhal Susp UD IH SCH ×2 (08:01→20:40)
--- NOTE | 2018-08-16 08:01 | CP.PCM.PN ---
Subjective - Date & Time of Evaluation Date of Evaluation: 08/16/18 Time of Evaluation: 06:45 - Subjective Subjective: Awake, alert, watching TV, feels okay Reason for consultation and follow up: Cardiac evaluation of shortness of breath, history of cardiomyopathy,HIV, elevated troponin Seen and examined by me and Dr. Veliz Objective - Vital Signs/Intake and Output Vital Signs (last 24 hours): Temp Pulse Resp BP Pulse Ox 98.6 F 70 20 119/79 98 08/16/18 06:00 08/16/18 06:00 08/16/18 06:00 08/16/18 06:00 08/16/18 06:00 Intake and Output: 08/16/18 08/16/18 06:59 18:59 Intake Total 512 240 Output Total 1500 Balance 512 -1260 - Medications Medications: Current Medications Acetaminophen (Tylenol 325mg Tab) 650 mg PO Q4H PRN PRN Reason: Fever >100.4 F Last Admin: 08/15/18 07:38 Dose: 650 mg Arformoterol Tartrate (Brovana) 15 mcg IH [id number] [facility] Last Admin: 08/15/18 19:49 Dose: 15 mcg Aspirin (Ecotrin) 81 mg PO DAILY [facility] Last Admin: 08/15/18 09:35 Dose: 81 mg Budesonide (Pulmicort Respules) 0.5 mg IH [id number] [facility] Last Admin: 08/15/18 19:49 Dose: 0.5 mg Clonazepam (Klonopin) 0.5 mg PO TID [facility]; Protocol Last Admin: 08/15/18 17:55 Dose: Not Given Doxycycline Hyclate (Doryx) 100 mg PO Q12 [facility]; Protocol Stop: 08/21/18 10:01 Last Admin: 08/15/18 21:55 Dose: 100 mg Enoxaparin Sodium (Lovenox) 40 mg SC Q12 [facility]; Protocol Last Admin: 08/15/18 21:54 Dose: 40 mg Furosemide (Lasix) 20 mg IVP DAILY [facility] Last Admin: 08/15/18 09:35 Dose: 20 mg Clindamycin Phosphate 900 mg/ (Sodium Chloride) 106 mls @ 106 mls/hr IVPB Q8 [facility]; Protocol Stop: 08/21/18 14:01 Last Admin: 08/16/18 05:11 Dose: 106 mls/hr Meropenem (Merrem Iv 1 Gm Premix) 1 gm in 50 mls @ 100 mls/hr IVPB Q8 [facility]; Protocol Stop: 08/21/18 14:01 Last Admin: 08/16/18 05:11 Dose: 100 mls/hr Voriconazole 200 mg/ Sodium (Chloride) 100 mls @ 50 mls/hr IVPB Q12 [facility]; Protocol Stop: 08/24/18 13:15 Last Admin: 08/15/18 21:53 Dose: 50 mls/hr Ipratropium [place] (Atrovent) 0.5 mg IH [id number] PRN PRN Reason: Shortness of Breath Last Admin: 08/14/18 07:26 Dose: 0.5 mg Levalbuterol HCl (Xopenex) 0.63 mg IH [id number] PRN PRN Reason: Shortness of Breath Last Admin: 08/14/18 20:00 Dose: 0.63 mg Methadone HCl (Methadone) 100 mg PO DAILY [facility] Last Admin: 08/15/18 09:37 Dose: 100 mg Methylprednisolone (Solu-Medrol) 20 mg IVP DAILY [facility] Last Admin: 08/15/18 09:38 Dose: 20 mg Metoprolol Tartrate (Lopressor) 12.5 mg PO Q12 [facility] Last Admin: 08/15/18 21:55 Dose: 12.5 mg Pantoprazole Sodium (Protonix Ec Tab) 40 mg PO 0600 [facility] Last Admin: 08/16/18 05:11 Dose: 40 mg Primaquine Phosphate (Primaquine) 26.3 mg PO DAILY [facility]; Protocol Stop: 08/21/18 10:01 Last Admin: 08/15/18 09:38 Dose: 26.3 mg Tramadol HCl (Ultram) 50 mg PO Q8H PRN PRN Reason: Pain, moderate (4-7) Last Admin: 08/15/18 22:59 Dose: 50 mg - Labs Labs: 08/16/18 06:30 08/16/18 06:30 - Constitutional Appears: Non-toxic, No Acute Distress - Head Exam Head Exam: NORMAL INSPECTION, NORMOCEPHALIC - Eye Exam Eye Exam: Normal appearance Pupil Exam: NORMAL ACCOMODATION - ENT Exam ENT Exam: Mucous Membranes Dry - Respiratory Exam Respiratory Exam: Decreased Breath Sounds, Clear to Ausculation Bilateral, NORMAL BREATHING PATTERN - Cardiovascular Exam Cardiovascular Exam: +S1, +S2 - GI/Abdominal Exam GI & Abdominal Exam: Soft, Normal Bowel Sounds - Extremities Exam Extremities Exam: Full ROM Additional comments: 1-2+ edema - Neurological Exam Neurological Exam: Alert, Awake, Oriented x3 - Psychiatric Exam Psychiatric exam: Normal Affect, Normal Mood - Skin Skin Exam: Dry, Normal Color, Warm Assessment and Plan - Assessment and Plan (Free Text) Assessment: A 38 year old female known to service who came in to the ER due to shortness of breath and chills. She was just recently hospitalized at [facility] for 2 weeks for the same symptoms stabilized and discharged, then after few days symptoms reoccurred. 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 Shortness of breath due to possible pneumonia, ID on consult, started on antibiotics. False positive elevated troponin due to underlying infection.On airborne isolation for AFB. Cardiac status stable.Echo done- Normal size LV, LVEF 45%, Systolic function mildly impaired, Global hypokinesis of the LV, Mitral valve moderately thickened, Mild tricuspid regurgitation,moderate pulmonary hypertension, No vegetation seen. Plan: Feels okay, no distress, watching TV Denies chest pain, on nasal cannula On airborne isolation, Positive for AFB and mycobacterium in liver Cardiac status stable Heart rate controlled Blood pressure controlled ID on consult Continue antibiotics as ordered Continue current treatment Continue medications Nutritional support Chart reviewed Will follow up Plan and treatment discussed with Dr. Veliz
[2018-08-16] MEDS: Primaquine 26.3 mg Tab PO SCH (09:34)
[2018-08-16] MEDS: Enoxaparin 40 mg Syringe SC SCH ×2 (09:35→21:55)
[2018-08-16] MEDS: MethylPREDNISolone 40 mg Vial IVP SCH (09:35)
--- NOTE | 2018-08-16 12:04 | PN ---
DATE: 08/16/2018 SUBJECTIVE: The patient is in bed, in no acute distress, nontoxic. PHYSICAL EXAMINATION: VITAL SIGNS: On exam, temperature is 98, blood pressure is 119/70, respiratory rate of 20. HEENT: Examination of HEENT is unremarkable. NECK: Supple. LUNGS: Have decreased breath sounds. HEART: Normal S1, S2. ABDOMEN: Soft. LABORATORY DATA: Laboratory examination reveals a white count is 7, hemoglobin of 7 and platelets of 100. Chemistries reveals the patient's LFTs are normal, BUN of 30, creatinine 0.6. Urinalysis is noted and serology is noted. Microbiology reveals mold in the sputum culture. The blood cultures have no growth. No identification at this time of this mold. ASSESSMENT AND PLAN: A 38-year-old female who has end-stage acquired immunodeficiency syndrome and multiple episodes of Pneumocystis carinii pneumonia, noncompliant to her human immunodeficiency virus medications and intravenous drug abuse and now admitted with sepsis with pneumonia, Pneumocystis carinii versus the mold as Aspergillus. Currently on clindamycin, primaquine, Solu-Medrol, doxycycline and voriconazole. Overall prognosis is quite poor for this patient who is being very noncompliant to medical treatment. Cheikh Chou MD
--- NOTE | 2018-08-16 12:55 | CP.PCM.PN ---
<Jose Altamirano - Last Filed: 08/16/18 17:40> Subjective - Date & Time of Evaluation Date of Evaluation: 08/16/18 Time of Evaluation: 08:00 - Subjective Subjective: PGY-1 Medicine Progress Note for Dr. Cortés Patient seen and examined at bedside, in no acute distress. No acute events reported overnight. Patient states cough is still present with intermittent production of white phlegm. No fevers/chills, chest pain, palpitations, sob, n/v/d/c, dysuria, or changes in stool. Objective - Vital Signs/Intake and Output Vital Signs (last 24 hours): Temp Pulse Resp BP Pulse Ox 98.6 F 111 H 20 107/68 98 08/16/18 06:00 08/16/18 09:33 08/16/18 06:00 08/16/18 09:41 08/16/18 06:00 Intake and Output: 08/16/18 08/16/18 06:59 18:59 Intake Total 512 240 Output Total 1500 Balance 512 -1260 - Medications Medications: Current Medications Acetaminophen (Tylenol 325mg Tab) 650 mg PO Q4H PRN PRN Reason: Fever >100.4 F Last Admin: 08/15/18 07:38 Dose: 650 mg Arformoterol Tartrate (Brovana) 15 mcg IH [id number] [facility] Last Admin: 08/16/18 08:01 Dose: 15 mcg Aspirin (Ecotrin) 81 mg PO DAILY [facility] Last Admin: 08/16/18 09:35 Dose: 81 mg Budesonide (Pulmicort Respules) 0.5 mg IH [id number] [facility] Last Admin: 08/16/18 08:01 Dose: 0.5 mg Clonazepam (Klonopin) 0.5 mg PO TID [facility]; Protocol Last Admin: 08/16/18 09:33 Dose: 0.5 mg Doxycycline Hyclate (Doryx) 100 mg PO Q12 [facility]; Protocol Stop: 08/21/18 10:01 Last Admin: 08/16/18 09:35 Dose: 100 mg Enoxaparin Sodium (Lovenox) 40 mg SC Q12 [facility]; Protocol Last Admin: 08/16/18 09:35 Dose: 40 mg Furosemide (Lasix) 20 mg IVP DAILY [facility] Last Admin: 08/16/18 09:41 Dose: 20 mg Clindamycin Phosphate 900 mg/ (Sodium Chloride) 106 mls @ 106 mls/hr IVPB Q8 [facility]; Protocol Stop: 08/21/18 14:01 Last Admin: 08/16/18 05:11 Dose: 106 mls/hr Meropenem (Merrem Iv 1 Gm Premix) 1 gm in 50 mls @ 100 mls/hr IVPB Q8 [facility]; Protocol Stop: 08/21/18 14:01 Last Admin: 08/16/18 05:11 Dose: 100 mls/hr Voriconazole 200 mg/ Sodium (Chloride) 100 mls @ 50 mls/hr IVPB Q12 [facility]; Protocol Stop: 08/24/18 13:15 Last Admin: 08/16/18 09:40 Dose: 50 mls/hr Ipratropium [place] (Atrovent) 0.5 mg IH [id number] PRN PRN Reason: Shortness of Breath Last Admin: 08/14/18 07:26 Dose: 0.5 mg Levalbuterol HCl (Xopenex) 0.63 mg IH [id number] PRN PRN Reason: Shortness of Breath Last Admin: 08/14/18 20:00 Dose: 0.63 mg Methadone HCl (Methadone) 100 mg PO DAILY [facility] Last Admin: 08/16/18 09:36 Dose: 100 mg Methylprednisolone (Solu-Medrol) 20 mg IVP DAILY [facility] Last Admin: 08/16/18 09:35 Dose: 20 mg Metoprolol Tartrate (Lopressor) 12.5 mg PO Q12 [facility] Last Admin: 08/16/18 09:33 Dose: 12.5 mg Pantoprazole Sodium (Protonix Ec Tab) 40 mg PO 0600 [facility] Last Admin: 08/16/18 05:11 Dose: 40 mg Primaquine Phosphate (Primaquine) 26.3 mg PO DAILY [facility]; Protocol Stop: 08/21/18 10:01 Last Admin: 08/16/18 09:34 Dose: 26.3 mg Tramadol HCl (Ultram) 50 mg PO Q8H PRN PRN Reason: Pain, moderate (4-7) Last Admin: 08/16/18 09:34 Dose: 50 mg - Labs Labs: 08/16/18 06:30 08/16/18 06:30 - Constitutional Appears: Non-toxic, No Acute Distress - Head Exam Head Exam: ATRAUMATIC, NORMAL INSPECTION, NORMOCEPHALIC - Eye Exam Eye Exam: EOMI, Normal appearance Pupil Exam: NORMAL ACCOMODATION - ENT Exam ENT Exam: Mucous Membranes Moist, Normal Exam - Neck Exam Neck Exam: Full ROM, Normal Inspection - Respiratory Exam Respiratory Exam: Clear to Ausculation Bilateral, NORMAL BREATHING PATTERN. absent: Accessory Muscle Use, Rales, Wheezes, Stridor - Cardiovascular Exam Cardiovascular Exam: REGULAR RHYTHM, +S1, +S2 - GI/Abdominal Exam GI & Abdominal Exam: Soft, Normal Bowel Sounds. absent: Distended, Firm, Guarding, Rigid, Tenderness, Organomegaly - Extremities Exam Extremities Exam: Full ROM, Normal Capillary Refill, Normal Inspection. absent: Calf Tenderness, Tenderness - Back Exam Back Exam: NORMAL INSPECTION - Neurological Exam Neurological Exam: Alert, Awake, Oriented x3 - Psychiatric Exam Psychiatric exam: Normal Affect, Normal Mood - Skin Skin Exam: Dry, Intact, Normal Color, Warm Assessment and Plan - Assessment and Plan (Free Text) Assessment: 38 yo F with PMHx of HIV with CD4 <20 (03/11/18), EBV, CMV, HSV, COPD, asthma, heroin abuse, CHF with LVEF 35% (04/11) presents after being diagnosed w ith mycobacterium by liver biopsy by Dr. Joseph. Concern for TB due to prior biospy. Chest CT demonstrates multiple cavitary nodules throughout b/l lung asif. Malignant neoplasm vs infection (TB or fungal infection) vs inflammatory nodules; Bilateral R>L consolidations and small bilateral pleural effusions; calcified right hilar and mediastinal lymph nodes. Plan: Multifocal pneumonia, r/o pulmonary TB vs other opportunistic infection --patient is afebrile, no leukocytosis noted --Cryptococcus Ag screen negative --legionella negative --AFB x1 negative, f/u AFB 2 and 3 --ID recs (Dr. Chou) appreciated -sputum cx positive for mold -voriconazole added to current med regimen --Pulm recs (Dr. Haddad) appreciated -CXR (08/12): with b/l lower lobe consolidations -CT chest w/o contrast (08/12): innumerable nodular opacities throughout bilateral lung asif as delineated above including 1 nodule with probable cavitations. Malignant neoplasm vs Infection (TB or fungal infection) vs inflammatory nodules; Bilateral R>L consolidations and small bilateral pleural effusions; calcified right hilar and mediastinal lymph nodes -c/w supp O2 as needed, goal sat 90%, duonebs PRN, IS -ABx as per ID, covering for HCAP, MRSA -consider covering for PCP, although less likely --Medications -Doxycycline IVPB q12 [facility] -Meropenem IVPB q8 [facility] -Clindamycin IVPB q8 [facility] -Primaquine 26.3mg PO daily Urine Cx positive for gram positive cocci --Asymptomatic --Medications -Doxycycline IVPB q12 [facility] -Meropenem IVPB q8 [facility] -Clindamycin IVPB q8 [facility] -Primaquine 26.3mg po daily -Voriconazole 200 mg IVPB q12 Hx Positive AFB on Liver Bx (Dr. Joseph) --Liver biopsy by Dr. Joseph --AFB x1 negative, f/u AFB 2 and 3 Hx of CHF --Cardio recs (Dr. Umaña) appreciated -ECHO: 45.4%; mild TR; moderate pHTN --Medications -Lopressor 12.5mg po q12 [facility] -Lasix 20mg IVP daily -Aspirin 81mg po daily -1x dose Lasix 20mg IVP daily Hx of COPD --ABG wnl --Medications -Brovana 15mcg [id number] [facility] -Pulmicort 0.5mg [id number] [facility] -Atrovent 0.5mg q6h resp prn -Xopenex 0.63 mg IH q6h resp -Solumedrol 20mg IVP daily [facility] Hx of Heroin abuse --Methadone 100mg po daily [facility] Hx of anxiety --Klonopin 0.5mg po tid benjamin Hx of chronic back pain --Tramadol 50mg po q8h prn --Tylenol 650mg po q4h prn PPx, Diet, Disposition --GI ppx: Protonix 40mg po q12 --DVT ppx: Lovenox 40mg sc q12 --Diet: HHD --Disposition: pt is on airborne isolation to r/o TB, on IV abx for possible PCP PNA per ID; Obtain chart from last [facility] visit to evaluate extent of workup. Case discussed with Dr. Brooke Altamirano DO, PGY-1 <Yoel Cortés - Last Filed: 08/16/18 18:08> Objective - Vital Signs/Intake and Output Vital Signs (last 24 hours): Temp Pulse Resp BP Pulse Ox 99.3 F 78 19 100/65 98 08/16/18 12:00 08/16/18 12:00 08/16/18 12:00 08/16/18 12:00 08/16/18 06:00 Intake and Output: 08/16/18 08/16/18 06:59 18:59 Intake Total 512 240 Output Total 1500 Balance 512 -1260 - Medications Medications: Current Medications Acetaminophen (Tylenol 325mg Tab) 650 mg PO Q4H PRN PRN Reason: Fever >100.4 F Last Admin: 08/15/18 07:38 Dose: 650 mg Arformoterol Tartrate (Brovana) 15 mcg IH [id number] [facility] Last Admin: 08/16/18 08:01 Dose: 15 mcg Aspirin (Ecotrin) 81 mg PO DAILY [facility] Last Admin: 08/16/18 09:35 Dose: 81 mg Budesonide (Pulmicort Respules) 0.5 mg IH [id number] [facility] Last Admin: 08/16/18 08:01 Dose: 0.5 mg Clonazepam (Klonopin) 0.5 mg PO TID [facility]; Protocol Last Admin: 08/16/18 18:01 Dose: Not Given Doxycycline Hyclate (Doryx) 100 mg PO Q12 [facility]; Protocol Stop: 08/21/18 10:01 Last Admin: 08/16/18 09:35 Dose: 100 mg Enoxaparin Sodium (Lovenox) 40 mg SC Q12 [facility]; Protocol Last Admin: 08/16/18 09:35 Dose: 40 mg Furosemide (Lasix) 20 mg IVP DAILY [facility] Last Admin: 08/16/18 09:41 Dose: 20 mg Clindamycin Phosphate 900 mg/ (Sodium Chloride) 106 mls @ 106 mls/hr IVPB Q8 [facility]; Protocol Stop: 08/21/18 14:01 Last Admin: 08/16/18 15:06 Dose: 106 mls/hr Meropenem (Merrem Iv 1 Gm Premix) 1 gm in 50 mls @ 100 mls/hr IVPB Q8 [facility]; Protocol Stop: 08/21/18 14:01 Last Admin: 08/16/18 13:45 Dose: 100 mls/hr Voriconazole 200 mg/ Sodium (Chloride) 100 mls @ 50 mls/hr IVPB Q12 [facility]; Protocol Stop: 08/24/18 13:15 Last Admin: 08/16/18 09:40 Dose: 50 mls/hr Ipratropium [place] (Atrovent) 0.5 mg IH [id number] PRN PRN Reason: Shortness of Breath Last Admin: 08/14/18 07:26 Dose: 0.5 mg Levalbuterol HCl (Xopenex) 0.63 mg IH [id number] PRN PRN Reason: Shortness of Breath Last Admin: 08/14/18 20:00 Dose: 0.63 mg Methadone HCl (Methadone) 100 mg PO DAILY [facility] Last Admin: 08/16/18 09:36 Dose: 100 mg Methylprednisolone (Solu-Medrol) 20 mg IVP DAILY [facility] Last Admin: 08/16/18 09:35 Dose: 20 mg Metoprolol Tartrate (Lopressor) 12.5 mg PO Q12 [facility] Last Admin: 08/16/18 09:33 Dose: 12.5 mg Pantoprazole Sodium (Protonix Ec Tab) 40 mg PO 0600 [facility] Last Admin: 08/16/18 05:11 Dose: 40 mg Primaquine Phosphate (Primaquine) 26.3 mg PO DAILY [facility]; Protocol Stop: 08/21/18 10:01 Last Admin: 08/16/18 09:34 Dose: 26.3 mg Tramadol HCl (Ultram) 50 mg PO Q8H PRN PRN Reason: Pain, moderate (4-7) Last Admin: 08/16/18 09:34 Dose: 50 mg - Labs Labs: 08/16/18 06:30 08/16/18 06:30 Attending/Attestation - Attestation I have personally seen and examined this patient.: Yes I have fully participated in the care of the patient.: Yes I have reviewed all pertinent clinical information, including history, physical exam and plan: Yes Notes (Text): 08/16/18 18:02 38 year old female with past medical history of HIV/AIDs, COPD, asthma, heroin abuse, CHF who was recently discharged from [facility] presented with shortness of breath. CT chest showed nodular opacities throughout bilateral lung asif including one nodule with probable cavitation, bilateral R>L consolidations and small bilateral pleural effusions. Patient is on airborne isolation; pending AFBs to rule out TB. Continue with antibiotics as per ID. Pulmonary is also following; plan for possible bronch on . Counselled on medication compliance. Overall prognosis is poor secondary to noncompliance. Yoel Cortés MD Hospitalist.
--- NOTE | 2018-08-16 14:54 | CP.PCM.PN ---
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 Denies fever, chills, chest pain, sob. Objective - Vital Signs/Intake and Output Vital Signs (last 24 hours): Temp Pulse Resp BP Pulse Ox 99.3 F 78 19 100/65 98 08/16/18 12:00 08/16/18 12:00 08/16/18 12:00 08/16/18 12:00 08/16/18 06:00 Intake and Output: 08/16/18 08/16/18 06:59 18:59 Intake Total 512 240 Output Total 1500 Balance 512 -1260 - Medications Medications: Current Medications Acetaminophen (Tylenol 325mg Tab) 650 mg PO Q4H PRN PRN Reason: Fever >100.4 F Last Admin: 08/15/18 07:38 Dose: 650 mg Arformoterol Tartrate (Brovana) 15 mcg IH [id number] [facility] Last Admin: 08/16/18 08:01 Dose: 15 mcg Aspirin (Ecotrin) 81 mg PO DAILY [facility] Last Admin: 08/16/18 09:35 Dose: 81 mg Budesonide (Pulmicort Respules) 0.5 mg IH [id number] [facility] Last Admin: 08/16/18 08:01 Dose: 0.5 mg Clonazepam (Klonopin) 0.5 mg PO TID [facility]; Protocol Last Admin: 08/16/18 13:45 Dose: 0.5 mg Doxycycline Hyclate (Doryx) 100 mg PO Q12 [facility]; Protocol Stop: 08/21/18 10:01 Last Admin: 08/16/18 09:35 Dose: 100 mg Enoxaparin Sodium (Lovenox) 40 mg SC Q12 [facility]; Protocol Last Admin: 08/16/18 09:35 Dose: 40 mg Furosemide (Lasix) 20 mg IVP DAILY [facility] Last Admin: 08/16/18 09:41 Dose: 20 mg Clindamycin Phosphate 900 mg/ (Sodium Chloride) 106 mls @ 106 mls/hr IVPB Q8 [facility]; Protocol Stop: 08/21/18 14:01 Last Admin: 08/16/18 05:11 Dose: 106 mls/hr Meropenem (Merrem Iv 1 Gm Premix) 1 gm in 50 mls @ 100 mls/hr IVPB Q8 [facility]; Protocol Stop: 08/21/18 14:01 Last Admin: 08/16/18 13:45 Dose: 100 mls/hr Voriconazole 200 mg/ Sodium (Chloride) 100 mls @ 50 mls/hr IVPB Q12 [facility]; Protocol Stop: 08/24/18 13:15 Last Admin: 08/16/18 09:40 Dose: 50 mls/hr Ipratropium [place] (Atrovent) 0.5 mg IH [id number] PRN PRN Reason: Shortness of Breath Last Admin: 08/14/18 07:26 Dose: 0.5 mg Levalbuterol HCl (Xopenex) 0.63 mg IH [id number] PRN PRN Reason: Shortness of Breath Last Admin: 08/14/18 20:00 Dose: 0.63 mg Methadone HCl (Methadone) 100 mg PO DAILY [facility] Last Admin: 08/16/18 09:36 Dose: 100 mg Methylprednisolone (Solu-Medrol) 20 mg IVP DAILY [facility] Last Admin: 08/16/18 09:35 Dose: 20 mg Metoprolol Tartrate (Lopressor) 12.5 mg PO Q12 [facility] Last Admin: 08/16/18 09:33 Dose: 12.5 mg Pantoprazole Sodium (Protonix Ec Tab) 40 mg PO 0600 [facility] Last Admin: 08/16/18 05:11 Dose: 40 mg Primaquine Phosphate (Primaquine) 26.3 mg PO DAILY [facility]; Protocol Stop: 08/21/18 10:01 Last Admin: 08/16/18 09:34 Dose: 26.3 mg Tramadol HCl (Ultram) 50 mg PO Q8H PRN PRN Reason: Pain, moderate (4-7) Last Admin: 08/16/18 09:34 Dose: 50 mg - Labs Labs: 08/16/18 06:30 08/16/18 06:30 - Constitutional Appears: Non-toxic, No Acute Distress, Cachectic, Chronically Ill - Head Exam Head Exam: NORMAL INSPECTION - Eye Exam Eye Exam: Normal appearance - ENT Exam ENT Exam: Mucous Membranes Moist - Respiratory Exam Respiratory Exam: Decreased Breath Sounds, NORMAL BREATHING PATTERN - Cardiovascular Exam Cardiovascular Exam: REGULAR RHYTHM, +S1, +S2 - GI/Abdominal Exam GI & Abdominal Exam: Soft, Normal Bowel Sounds - Extremities Exam Extremities Exam: Normal Inspection Assessment and Plan - Assessment and Plan (Free Text) Assessment: Patient is 38yo female with PMHx of HIV/AIDS, CD4<20 on 03/11/18, EBV, CMV, HSV, COPD, asthma, heroin abuse, CHF with LVEF=35%, a/w multifocal PNA Multifocal PNA HIV/AIDS SOB CHF, EF 35% COPD Hx Smoking - currently afebrile, HD stable, comfortable in NAD, on 4L NC, sat 94% - labs, imaging, chart reviewed - CXR with bilateral lower lobe consolidations - CT chest with new nodular opacities, diffuse, unclear etiology - on broad spectrum abx, for HCAP, PCP and Asp spp. Recommend: - cont with supp o2 as needed, goal sat 90%, duonebs PRN, IS - abx as per ID, cover for mold Asp spp - consider discontinuing steroids, as PCP is less likely, although cannot be completely ruled out. - Bronchoscopy , NPO after MN Wed - GI ppx - DVT ppx - Pulmonary will continue to follow
--- NOTE | 2018-08-16 15:42 | PN ---
DATE: 08/16/2018 This note is an addition to dictated by our nurse practitioner, Missy Prescott. SUBJECTIVE: The patient lying comfortable, complained of back pain. History of cardiomyopathy, HIV, possibly AIDS, AIDS related pulmonary disease. Liver biopsy is positive for mycobacterium. The patient is currently on isolation, borderline positive troponin secondary to false elevated. LV function is 45%, mildly impaired, mild tricuspid regurgitation with no vegetation noted. RECOMMENDATIONS: Continue isolation as per Pulmonary. CVS status is stable. We will sign off and glad to follow up p.r.n. Treat his HIV related, AIDS related disease. Thank you, Dr. Cortés, for providing us the opportunity in taking care of Veronica Ruiz. Cara Veliz MD
[2018-08-17] MEDS ORDERED: Oxycodone/Acetaminophen 5/325 mg Tab PO STA (02:42)
[2018-08-17] MEDS: Pantoprazole 40 mg EC Tab PO SCH (05:22)
[2018-08-17] MEDS: Meropenem IV 1 gm in NS 1 GM/50 ML BAG IVPB SCH ×3 (05:22→21:39)
[2018-08-17] MEDS: Budesonide 0.5 mg/2 ml Inhal Susp UD IH SCH ×2 (07:30→21:29)
[2018-08-17] MEDS: Arformoterol 15 mcg/2 ml Inh Sol IH SCH ×2 (07:30→21:29)
[2018-08-17 07:31] LABS: EOS % 0.3 % (1.5-5.0); GRAN # 4.91 (1.4-6.5); GRAN % 78.6 % (50.0-68.0); HEMOGLOBIN 7.5 g/dL (12.0-16.0); LYMPH # 0.8 (1.2-3.4); MEAN CORPUSCULAR HEMOGLOBIN 26.2 pg (25.0-35.0); MEAN CORPUSCULAR HGB CONC 30.9 g/dl (31.0-37.0); MEAN PLATELET VOLUME 11.3 fl (7.0-11.0); MONO # 0.6 (0.1-0.6); MONO % 9.1 % (1.0-6.0); RBC 2.86 10^6/uL (3.5-6.1); RED CELL DISTRIBUTION WIDTH 16.8 % (11.5-14.5); WHITE BLOOD COUNT 6.3 10^3/ul (4.5-11.0)
[2018-08-17 07:53] LABS: ALB/GLOB RATIO 0.9 (1.1-1.8); ALBUMIN 2.7 g/dL (3.0-4.8); ALT/SGPT 19 U/L (7-56); AST/SGOT 29 U/L (14-36); BLOOD UREA NITROGEN 38 mg/dL (7-21); CALCIUM 9.2 mg/dL (8.4-10.5); GFR NON-AFRICAN AMERICAN > 60
[2018-08-17] MEDS: Enoxaparin 40 mg Syringe SC SCH (09:23)
[2018-08-17] MEDS: Primaquine 26.3 mg Tab PO SCH (09:24)
[2018-08-17] MEDS: MethylPREDNISolone 40 mg Vial IVP SCH (09:25)
--- NOTE | 2018-08-17 11:20 | CP.PCM.PN ---
Subjective - Date & Time of Evaluation Date of Evaluation: 08/17/18 Time of Evaluation: 11:18 - Subjective Subjective: Pt seen and examined at bedside. Pt reports to be feeling a little better but still had YODER. Denies fever, chills, chest pain. Objective - Vital Signs/Intake and Output Vital Signs (last 24 hours): Temp Pulse Resp BP Pulse Ox 98.1 F 100 H 20 109/71 94 L 08/16/18 22:14 08/17/18 09:22 08/16/18 22:14 08/17/18 09:22 08/16/18 22:14 - Medications Medications: Current Medications Acetaminophen (Tylenol 325mg Tab) 650 mg PO Q4H PRN PRN Reason: Fever >100.4 F Last Admin: 08/15/18 07:38 Dose: 650 mg Arformoterol Tartrate (Brovana) 15 mcg IH [id number] [facility] Last Admin: 08/16/18 20:40 Dose: 15 mcg Aspirin (Ecotrin) 81 mg PO DAILY [facility] Last Admin: 08/17/18 09:21 Dose: 81 mg Budesonide (Pulmicort Respules) 0.5 mg IH [id number] [facility] Last Admin: 08/16/18 20:40 Dose: 0.5 mg Clonazepam (Klonopin) 0.5 mg PO TID [facility]; Protocol Last Admin: 08/17/18 09:21 Dose: 0.5 mg Doxycycline Hyclate (Doryx) 100 mg PO Q12 [facility]; Protocol Stop: 08/21/18 10:01 Last Admin: 08/17/18 09:21 Dose: 100 mg Enoxaparin Sodium (Lovenox) 40 mg SC Q12 [facility]; Protocol Last Admin: 08/17/18 09:23 Dose: 40 mg Furosemide (Lasix) 20 mg IVP DAILY [facility] Last Admin: 08/17/18 09:21 Dose: 20 mg Clindamycin Phosphate 900 mg/ (Sodium Chloride) 106 mls @ 106 mls/hr IVPB Q8 [facility]; Protocol Stop: 08/21/18 14:01 Last Admin: 08/17/18 05:22 Dose: 106 mls/hr Meropenem (Merrem Iv 1 Gm Premix) 1 gm in 50 mls @ 100 mls/hr IVPB Q8 [facility]; P rotocol Stop: 08/21/18 14:01 Last Admin: 08/17/18 05:22 Dose: 100 mls/hr Voriconazole 200 mg/ Sodium (Chloride) 100 mls @ 50 mls/hr IVPB Q12 [facility]; Protocol Stop: 08/24/18 13:15 Last Admin: 08/17/18 09:41 Dose: 50 mls/hr Ipratropium [place] (Atrovent) 0.5 mg IH [id number] PRN PRN Reason: Shortness of Breath Last Admin: 08/14/18 07:26 Dose: 0.5 mg Levalbuterol HCl (Xopenex) 0.63 mg IH [id number] PRN PRN Reason: Shortness of Breath Last Admin: 08/14/18 20:00 Dose: 0.63 mg Methadone HCl (Methadone) 100 mg PO DAILY [facility] Last Admin: 08/17/18 09:23 Dose: 100 mg Methylprednisolone (Solu-Medrol) 20 mg IVP DAILY [facility] Last Admin: 08/17/18 09:25 Dose: 20 mg Metoprolol Tartrate (Lopressor) 12.5 mg PO Q12 [facility] Last Admin: 08/17/18 09:22 Dose: 12.5 mg Pantoprazole Sodium (Protonix Ec Tab) 40 mg PO 0600 [facility] Last Admin: 08/17/18 05:22 Dose: 40 mg Primaquine Phosphate (Primaquine) 26.3 mg PO DAILY [facility]; Protocol Stop: 08/21/18 10:01 Last Admin: 08/17/18 09:24 Dose: 26.3 mg Tramadol HCl (Ultram) 50 mg PO Q8H PRN PRN Reason: Pain, moderate (4-7) Last Admin: 08/16/18 21:57 Dose: 50 mg - Labs Labs: 08/17/18 07:00 08/17/18 07:00 - Constitutional Appears: Non-toxic, No Acute Distress, Cachectic, Chronically Ill - Head Exam Head Exam: NORMAL INSPECTION - Eye Exam Eye Exam: Normal appearance - ENT Exam ENT Exam: Mucous Membranes Moist - Respiratory Exam Respiratory Exam: Rhonchi, NORMAL BREATHING PATTERN - Cardiovascular Exam Cardiovascular Exam: REGULAR RHYTHM, +S1, +S2 - GI/Abdominal Exam GI & Abdominal Exam: Soft, Normal Bowel Sounds - Extremities Exam Extremities Exam: Normal Inspection - Neurological Exam Neurological Exam: Alert, Awake, Oriented x3 Assessment and Plan - Assessment and Plan (Free Text) Assessment: Patient is 38yo female with PMHx of HIV/AIDS, CD4<20 on 03/11/18, EBV, CMV, HSV, COPD, asthma, heroin abuse, CHF with LVEF=35%, a/w multifocal PNA Multifocal PNA HIV/AIDS SOB CHF, EF 35% COPD Hx Smoking - currently afebrile, HD stable, comfortable in NAD, on room air - labs, imaging, chart reviewed - CXR with bilateral lower lobe consolidations - CT chest with new nodular opacities, diffuse, unclear etiology - on broad spectrum abx, for HCAP, PCP and Asp spp. Recommend: - cont with supp o2 as needed, goal sat 90%, duonebs PRN, IS - abx as per ID, cover for mold Asp spp - Bronchoscopy tomorrow at 11am, NPO after MN - GI ppx - DVT ppx - Pulmonary will continue to follow
--- NOTE | 2018-08-17 13:54 | PN ---
DATE: 08/17/2018 SUBJECTIVE: The patient seen in 578. She is doing better today. She is less short of breath. No fevers or chills. PHYSICAL EXAMINATION: VITAL SIGNS: Temperature is 99, blood pressure is 104/70, respiratory rate 20, and heart rate of 89. HEENT: Unremarkable. NECK: Supple. LUNGS: Have decreased breath sounds. HEART: Normal S1 and S2. ABDOMEN: Soft and nontender. LABORATORY DATA: Reveals a white count of 6.3, hemoglobin of 7, and platelets of 129. Chemistries reveal a BUN of 38 and creatinine of 0.7. Urinalysis is noted and the patient's beta-1, 3D Glucan interpretation is positive for greater than 500 and Aspergillus antigen is also detected with an aspergillus index value of 0.99. The serum streptococcal antigen negative. Urobilinogen antigen is also negative and review of orders revealed the patient to be on clindamycin, which requires renewal, I will do so and the patient is also on meropenem, which I will also renew. The patient is on Solu-Medrol, on voriconazole, Primaquine, and doxycycline. 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 I spoke to ____ the pulmonary and critical care ammonium nitrate neutralizer of and bronchoscopy. We will continue with present course. We will ask the outpatient form if they can start her on human immunodeficiency virus medications, Biktarvy one pill a day and we will discuss with Pharmacy regarding starting Biktarvy if her insurance is agreeable. Cheikh Chou MD
--- NOTE | 2018-08-17 13:55 | CP.PCM.PN ---
<Jose Altamirano - Last Filed: 08/17/18 15:54> Subjective - Date & Time of Evaluation Date of Evaluation: 08/17/18 Time of Evaluation: 08:00 - Subjective Subjective: PGY-1 Medicine Progress Note for Dr. Cortés Patient seen and examined at bedside, in no acute distress. No acute overnight events reported. Overall reports feeling a little better with continued intermittent cough and shortness of breath. No fevers/chills, chest pain, palpitations, sob, n/v/d/c, dysuria, or changes in stool. Bronchoscopy scheduled tomorrow at 11 AM, per pulmonology. Objective - Vital Signs/Intake and Output Vital Signs (last 24 hours): Temp Pulse Resp BP Pulse Ox 98.1 F 100 H 20 109/71 94 L 08/16/18 22:14 08/17/18 09:22 08/16/18 22:14 08/17/18 09:22 08/16/18 22:14 - Medications Medications: Current Medications Acetaminophen (Tylenol 325mg Tab) 650 mg PO Q4H PRN PRN Reason: Fever >100.4 F Last Admin: 08/15/18 07:38 Dose: 650 mg Arformoterol Tartrate (Brovana) 15 mcg [facility] [id number] [facility] Last Admin: 08/17/18 07:30 Dose: Not Given Aspirin (Ecotrin) 81 mg PO DAILY [facility] Last Admin: 08/17/18 09:21 Dose: 81 mg Budesonide (Pulmicort Respules) 0.5 mg IH [id number] [facility] Last Admin: 08/17/18 07:30 Dose: Not Given Clonazepam (Klonopin) 0.5 mg PO TID [facility]; Protocol Last Admin: 08/17/18 09:21 Dose: 0.5 mg Doxycycline Hyclate (Doryx) 100 mg PO Q12 [facility]; Protocol Stop: 08/21/18 10:01 Last Admin: 08/17/18 09:21 Dose: 100 mg Enoxaparin Sodium (Lovenox) 40 mg SC DAILY [facility]; Protocol Furosemide (Lasix) 20 mg IVP DAILY [facility] Last Admin: 08/17/18 09:21 Dose: 20 mg Clindamycin Phosphate 900 mg/ (Sodium Chloride) 106 mls @ 106 mls/hr IVPB Q8 [facility]; Protocol Stop: 08/21/18 14:01 Last Admin: 08/17/18 05:22 Dose: 106 mls/hr Meropenem (Merrem Iv 1 Gm Premix) 1 gm in 50 mls @ 100 mls/hr IVPB Q8 [facility]; Protocol Stop: 08/21/18 14:01 Last Admin: 08/17/18 05:22 Dose: 100 mls/hr Voriconazole 200 mg/ Sodium (Chloride) 100 mls @ 50 mls/hr IVPB Q12 [facility]; Protocol Stop: 08/24/18 13:15 Last Admin: 08/17/18 09:41 Dose: 50 mls/hr Ipratropium Anthony (Atrovent) 0.5 mg IH [id number] PRN PRN Reason: Shortness of Breath Last Admin: 08/14/18 07:26 Dose: 0.5 mg Levalbuterol HCl (Xopenex) 0.63 mg IH [id number] PRN PRN Reason: Shortness of Breath Last Admin: 08/14/18 20:00 Dose: 0.63 mg Methadone HCl (Methadone) 100 mg PO DAILY [facility] Last Admin: 08/17/18 09:23 Dose: 100 mg Methylprednisolone (Solu-Medrol) 20 mg IVP DAILY [facility] Last Admin: 08/17/18 09:25 Dose: 20 mg Metoprolol Tartrate (Lopressor) 12.5 mg PO Q12 [facility] Last Admin: 08/17/18 09:22 Dose: 12.5 mg Pantoprazole Sodium (Protonix Ec Tab) 40 mg PO 0600 [facility] Last Admin: 08/17/18 05:22 Dose: 40 mg Primaquine Phosphate (Primaquine) 26.3 mg PO DAILY [facility]; Protocol Stop: 08/21/18 10:01 Last Admin: 08/17/18 09:24 Dose: 26.3 mg Tramadol HCl (Ultram) 50 mg PO Q8H PRN PRN Reason: Pain, moderate (4-7) Last Admin: 08/16/18 21:57 Dose: 50 mg - Labs Labs: 08/17/18 07:00 08/17/18 07:00 - Constitutional Appears: Non-toxic, No Acute Distress, Cachectic, Chronically Ill - Head Exam Head Exam: ATRAUMATIC, NORMAL INSPECTION, NORMOCEPHALIC - Eye Exam Eye Exam: EOMI, Normal appearance Pupil Exam: NORMAL ACCOMODATION - ENT Exam ENT Exam: Mucous Membranes Moist, Normal Exam - Neck Exam Neck Exam: Full ROM, Normal Inspection - Respiratory Exam Respiratory Exam: Rhonchi, NORMAL BREATHING PATTERN. absent: Accessory Muscle Use, Rales, Wheezes - Cardiovascular Exam Cardiovascular Exam: REGULAR RHYTHM, +S1, +S2 - GI/Abdominal Exam GI & Abdominal Exam: Soft, Normal Bowel Sounds. 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 Recently discharged from [facility] for similar symptoms and treated for PNA. Chest CT shows multiple nodules throughout b/l lung asif with one possible cavitary lesion. Malignant neoplasm vs infection (TB or fungal infection) vs inflammatory nodules; Bilateral R>L consolidations and small bilateral pleural effusions; calcified right hilar and mediastinal lymph nodes. Pt is on airborne isolation pending AFBs to rule out TB. On broad spectrum antibiotics and antifungal. Pt may need bronch per pulmonology. Overall prognosis poor secondary to noncompliance. Plan: Multifocal pneumonia, r/o pulmonary TB vs other opportunistic infection --patient is afebrile, no leukocytosis noted --Cryptococcus Ag screen negative --legionella negative --AFB x1 negative, f/u AFB 2 and 3 --serum Aspergillus and B-(1,3)-D-glucan positive positive, patient currently covered for aspergillus and PCP --ID recs (Dr. Chou) appreciated -sputum cx positive for mold -voriconazole added to current med regimen --Pulm recs (Dr. Haddad) appreciated -CXR (08/12): with b/l lower lobe consolidations -CT chest w/o contrast (08/12): innumerable nodular opacities throughout bilateral lung asif as delineated above including 1 nodule with probable cavitations. Malignant neoplasm vs Infection (TB or fungal infection) vs inflammatory nodules; Bilateral R>L consolidations and small bilateral pleural effusions; calcified right hilar and mediastinal lymph nodes -c/w supp O2 as needed, goal sat 90%, duonebs PRN, IS -ABx as per ID, covering for HCAP, MRSA -*Bronchoscopy scheduled tomorrow at 11am, pt to be NPO after midnight tonight --Medications -Doxycycline IVPB q12 benjamin -Meropenem IVPB q8 benjamin -Clindamycin IVPB q8 benjamin -Primaquine 26.3mg PO daily -Voriconazole 200 mg IVPB q12 Urine Cx positive for gram positive cocci --Asymptomatic --broad spectrum abx coverage as above Hx Positive AFB on Liver Bx --AFB x1 negative, f/u AFB 2 and 3 Hx of CHF --Cardio recs (Dr. Umaña) appreciated -ECHO: 45.4%; mild TR; moderate pHTN --Medications -Lopressor 12.5mg po q12 benjamin -Lasix 20mg IVP daily -Aspirin 81mg po daily -1x dose Lasix 20mg IVP daily Hx of COPD --ABG wnl --Medications -Brovana 15mcg [id number] benjamin -Pulmicort 0.5mg [id number] benjamin -Atrovent 0.5mg q6h resp prn -Xopenex 0.63 mg IH q6h resp -Solumedrol 20mg IVP daily benjamin Hx of Heroin abuse --Methadone 100mg po daily benjamin Hx of anxiety --Klonopin 0.5mg po tid benjamin Hx of chronic back pain --Tramadol 50mg po q8h prn --Tylenol 650mg po q4h prn PPx, Diet, Disposition --GI ppx: Protonix 40mg PO daily --DVT ppx: Lovenox 40mg SC Daily --Diet: HHD --Disposition: pt is on airborne isolation to r/o TB, on IV abx for possible PCP PNA per ID; Patient scheduled for bronchoscopy tomorrow @ 11AM, per Pulm recs. Pt to be NPO after midnight. Case discussed with Dr. Moo Altamirano DO, PGY-1 <Yoel Cortés - Last Filed: 08/18/18 07:54> Objective - Vital Signs/Intake and Output Vital Signs (last 24 hours): Temp Pulse Resp BP Pulse Ox 98.1 F 91 H 20 106/71 94 L 08/17/18 22:00 08/17/18 22:00 08/17/18 22:00 08/17/18 22:00 08/17/18 22:00 - Medications Medications: Current Medications Acetaminophen (Tylenol 325mg Tab) 650 mg PO Q4H PRN PRN Reason: Fever >100.4 F Last Admin: 08/15/18 07:38 Dose: 650 mg Arformoterol Tartrate (Brovana) 15 mcg IH [id number] [facility] Last Admin: 08/17/18 21:29 Dose: Not Given Aspirin (Ecotrin) 81 mg PO DAILY [facility] Last Admin: 08/17/18 09:21 Dose: 81 mg Budesonide (Pulmicort Respules) 0.5 mg IH [id number] [facility] Last Admin: 08/17/18 21:29 Dose: Not Given Clonazepam (Klonopin) 0.5 mg PO TID [facility]; Protocol Last Admin: 08/17/18 18:05 Dose: 0.5 mg Doxycycline Hyclate (Doryx) 100 mg PO Q12 [facility]; Protocol Stop: 08/21/18 10:01 Last Admin: 08/17/18 21:41 Dose: 100 mg Enoxaparin Sodium (Lovenox) 40 mg SC DAILY [facility]; Protocol Furosemide (Lasix) 20 mg IVP DAILY [facility] Last Admin: 08/17/18 09:21 Dose: 20 mg Clindamycin Phosphate 900 mg/ (Sodium Chloride) 106 mls @ 106 mls/hr IVPB Q8 [facility]; Protocol Stop: 08/21/18 14:01 Last Admin: 08/18/18 05:20 Dose: 106 mls/hr Meropenem (Merrem Iv 1 Gm Premix) 1 gm in 50 mls @ 100 mls/hr IVPB Q8 [facility]; Protocol Stop: 08/21/18 14:01 Last Admin: 08/18/18 05:22 Dose: 100 mls/hr Voriconazole 200 mg/ Sodium (Chloride) 100 mls @ 50 mls/hr IVPB Q12 [facility]; Protocol Stop: 08/24/18 13:15 Last Admin: 08/17/18 21:44 Dose: 50 mls/hr Ipratropium Anthony (Atrovent) 0.5 mg IH [id number] PRN PRN Reason: Shortness of Breath Last Admin: 08/14/18 07:26 Dose: 0.5 mg Levalbuterol HCl (Xopenex) 0.63 mg IH [id number] PRN PRN Reason: Shortness of Breath Last Admin: 08/14/18 20:00 Dose: 0.63 mg Methadone HCl (Methadone) 100 mg PO DAILY [facility] Last Admin: 08/17/18 09:23 Dose: 100 mg Methylprednisolone (Solu-Medrol) 20 mg IVP DAILY [facility] Last Admin: 08/17/18 09:25 Dose: 20 mg Metoprolol Tartrate (Lopressor) 12.5 mg PO Q12 [facility] Last Admin: 08/17/18 21:39 Dose: 12.5 mg Pantoprazole Sodium (Protonix Ec Tab) 40 mg PO 0600 [facility] Last Admin: 08/18/18 05:19 Dose: 40 mg Primaquine Phosphate (Primaquine) 26.3 mg PO DAILY [facility]; Protocol Stop: 08/21/18 10:01 Last Admin: 08/17/18 09:24 Dose: 26.3 mg Tramadol HCl (Ultram) 50 mg PO Q8H PRN PRN Reason: Pain, moderate (4-7) Last Admin: 08/18/18 02:13 Dose: 50 mg - Labs Labs: 08/18/18 07:30 08/17/18 07:00 Attending/Attestation - Attestation I have personally seen and examined this patient.: Yes I have fully participated in the care of the patient.: Yes I have reviewed all pertinent clinical information, including history, physical exam and plan: Yes Notes (Text): 08/17/18 38 year old female with past medical history of HIV/AIDs, COPD, asthma, heroin abuse, CHF who was recently discharged from [facility] presented with shortness of breath. CT chest showed nodular opacities throughout bilateral lung asif including one nodule with probable cavitation, bilateral R>L consolidations and small bilateral pleural effusions. Patient is on airborne isolation; pending AFBs to rule out TB. First AFB was negative and second/third one is pending. Continue with antibiotics as per ID. Pulmonary is also following; plan for possible bronch tomorrow. Counselled on medication compliance. Overall prognosis is poor secondary to non compliance. Yoel Cortés MD Hospitalist.
[2018-08-18] MEDS ORDERED: Oxycodone/Acetaminophen 5/325 mg Tab PO STA (04:10)
[2018-08-18] MEDS: Pantoprazole 40 mg EC Tab PO SCH (05:19)
[2018-08-18] MEDS: Meropenem IV 1 gm in NS 1 GM/50 ML BAG IVPB SCH ×3 (05:22→22:07)
[2018-08-18 07:46] LABS: BASO # 0.01 K/mm3 (0.0-2.0); BASO % 0.1 % (0.0-3.0); EOS # 0.1 (0.0-0.7); GRAN # 5.56 (1.4-6.5); GRAN % 80.5 % (50.0-68.0); HEMOGLOBIN 7.5 g/dL (12.0-16.0); LYMPH # 0.7 (1.2-3.4); LYMPH % 9.4 % (22.0-35.0); MEAN CELL VOLUME 84.3 fl (80.0-105.0); MEAN CORPUSCULAR HEMOGLOBIN 26.2 pg (25.0-35.0); MEAN CORPUSCULAR HGB CONC 31.1 g/dl (31.0-37.0); MEAN PLATELET VOLUME 10.3 fl (7.0-11.0); MONO # 0.6 (0.1-0.6); RBC 2.86 10^6/uL (3.5-6.1); RED CELL DISTRIBUTION WIDTH 16.9 % (11.5-14.5); WHITE BLOOD COUNT 6.9 10^3/ul (4.5-11.0)
[2018-08-18 07:55] LABS: ALB/GLOB RATIO 0.9 (1.1-1.8); ALBUMIN 2.7 g/dL (3.0-4.8); ALT/SGPT 21 U/L (7-56); AST/SGOT 32 U/L (14-36); BLOOD UREA NITROGEN 40 mg/dL (7-21); GFR NON-AFRICAN AMERICAN > 60
[2018-08-18] MEDS: Arformoterol 15 mcg/2 ml Inh Sol IH SCH ×2 (08:35→20:19)
[2018-08-18] MEDS: Budesonide 0.5 mg/2 ml Inhal Susp UD IH SCH ×2 (08:35→20:19)
[2018-08-18] MEDS ORDERED: Lidocaine 4% 50 mL Topical Sol (OR USE) ONE (09:25)
[2018-08-18] MEDS ORDERED: Lidocaine 2% Jelly (30 ml) ONE (09:26)
[2018-08-18] MEDS: MethylPREDNISolone 40 mg Vial IVP SCH (09:41)
[2018-08-18] MEDS: Enoxaparin 40 mg Syringe SC SCH (10:00)
[2018-08-18] MEDS ORDERED: Propofol 10 mg/ml Inj (20 ML) ONE (10:58)
[2018-08-18] MEDS ORDERED: Etomidate 20 mg/10ml Inj IV ONE (10:59)
[2018-08-18] MEDS ORDERED: Midazolam 2 MG/2 ML VIAL ONE ×2 (10:59→11:15)
[2018-08-18] MEDS ORDERED: Succinylcholine 200 mg/10 ml Inj IV ONE (10:59)
[2018-08-18] MEDS ORDERED: Sodium Chloride 0.9% 1,000 ML IV SCH (12:00)
--- NOTE | 2018-08-18 12:35 | CP.PCM.PN ---
Subjective - Date & Time of Evaluation Date of Evaluation: 08/18/18 Time of Evaluation: 12:33 - Subjective Subjective: Pt seen and examined, at bedside, reports SOB, cough is improved. Bronchoscopy today had to be aborted due to equipment malfunction. Objective - Vital Signs/Intake and Output Vital Signs (last 24 hours): Temp Pulse Resp BP Pulse Ox 98 F 101 H 18 120/80 94 L 08/18/18 12:10 08/18/18 12:10 08/18/18 12:10 08/18/18 12:10 08/18/18 12:10 - Medications Medications: Current Medications Acetaminophen (Tylenol 325mg Tab) 650 mg PO Q4H PRN PRN Reason: Fever >100.4 F Last Admin: 08/15/18 07:38 Dose: 650 mg Arformoterol Tartrate (Brovana) 15 mcg IH [id number] [facility] Last Admin: 08/18/18 08:35 Dose: 15 mcg Aspirin (Ecotrin) 81 mg PO DAILY [facility] Last Admin: 08/17/18 09:21 Dose: 81 mg Budesonide (Pulmicort Respules) 0.5 mg IH [id number] [facility] Last Admin: 08/18/18 08:35 Dose: 0.5 mg Clonazepam (Klonopin) 0.5 mg PO TID [facility]; Protocol Last Admin: 08/17/18 18:05 Dose: 0.5 mg Doxycycline Hyclate (Doryx) 100 mg PO Q12 [facility]; Protocol Stop: 08/21/18 10:01 Last Admin: 08/17/18 21:41 Dose: 100 mg Enoxaparin Sodium (Lovenox) 40 mg SC DAILY [facility]; Protocol Furosemide (Lasix) 20 mg IVP DAILY [facility] Last Admin: 08/17/18 09:21 Dose: 20 mg Clindamycin Phosphate 900 mg/ (Sodium Chloride) 106 mls @ 106 mls/hr IVPB Q8 [facility]; Protocol Stop: 08/21/18 14:01 Last Admin: 08/18/18 05:20 Dose: 106 mls/hr Meropenem (Merrem Iv 1 Gm Premix) 1 gm in 50 mls @ 100 mls/hr IVPB Q8 [facility]; Protocol Stop: 08/21/18 14:01 Last Admin: 08/18/18 05:22 Dose: 100 mls/hr Voriconazole 200 mg/ Sodium (Chloride) 100 mls @ 50 mls/hr IVPB Q12 [facility]; Protocol Stop: 08/24/18 13:15 Last Admin: 08/18/18 09:37 Dose: 50 mls/hr Sodium Chloride (Sodium Chloride 0.9%) 1,000 mls @ 75 mls/hr IV .[id number] [facility] Stop: 08/18/18 14:01 Ipratropium [place] (Atrovent) 0.5 mg IH [id number] PRN PRN Reason: Shortness of Breath Last Admin: 08/14/18 07:26 Dose: 0.5 mg Levalbuterol HCl (Xopenex) 0.63 mg IH [id number] PRN PRN Reason: Shortness of Breath Last Admin: 08/14/18 20:00 Dose: 0.63 mg Methadone HCl (Methadone) 100 mg PO DAILY [facility] Last Admin: 08/18/18 09:43 Dose: 100 mg Methylprednisolone (Solu-Medrol) 20 mg IVP DAILY [facility] Last Admin: 08/18/18 09:41 Dose: 20 mg Metoprolol Tartrate (Lopressor) 12.5 mg PO Q12 [facility] Last Admin: 08/18/18 09:43 Dose: 12.5 mg Pantoprazole Sodium (Protonix Ec Tab) 40 mg PO 0600 [facility] Last Admin: 08/18/18 05:19 Dose: 40 mg Primaquine Phosphate (Primaquine) 26.3 mg PO DAILY [facility]; Protocol Stop: 08/21/18 10:01 Last Admin: 08/17/18 09:24 Dose: 26.3 mg Tramadol HCl (Ultram) 50 mg PO Q8H PRN PRN Reason: Pain, moderate (4-7) Last Admin: 08/18/18 09:42 Dose: 50 mg - Labs Labs: 08/18/18 07:30 08/18/18 07:30 - Constitutional Appears: Non-toxic, No Acute Distress, Cachectic, Chronically Ill - Head Exam Head Exam: NORMAL INSPECTION - Eye Exam Eye Exam: Normal appearance - ENT Exam ENT Exam: Mucous Membranes Moist - Neck Exam Neck Exam: Full ROM - Respiratory Exam Respiratory Exam: Rhonchi, NORMAL BREATHING PATTERN - Cardiovascular Exam Cardiovascular Exam: REGULAR RHYTHM, +S1, +S2 - GI/Abdominal Exam GI & Abdominal Exam: Soft, Normal Bowel Sounds - Back Exam Back Exam: NORMAL INSPECTION - Neurological Exam Neurological Exam: Alert, Awake, Oriented x3 Assessment and Plan - Assessment and Plan (Free Text) Assessment: Patient is 38yo female with PMHx of HIV/AIDS, CD4<20 on 03/11/18, EBV, CMV, HSV, COPD, asthma, heroin abuse, CHF with LVEF=35%, a/w multifocal PNA Multifocal PNA HIV/AIDS SOB CHF, EF 35% COPD Hx Smoking - currently afebrile, HD stable, comfortable in NAD, on room air - labs, imaging, chart reviewed - CXR with bilateral lower lobe consolidations - CT chest with new nodular opacities, diffuse, unclear etiology - on broad spectrum abx, for HCAP, PCP and Asp spp. and PCP - Bronchoscopy today had to be aborted and could not be completed for examination, and BAL due to equipment malfunction Recommend: - cont with supp o2 as needed, goal sat 90%, duonebs PRN, IS - abx as per ID, cover for mold Asp spp, PCP, HCAP - GI ppx - DVT ppx - Pulmonary will continue to follow
[2018-08-18] MEDS: Primaquine 26.3 mg Tab PO SCH (13:55)
--- NOTE | 2018-08-18 16:03 | CP.PCM.PN ---
<Jose Altamirano - Last Filed: 08/18/18 21:08> Subjective - Date & Time of Evaluation Date of Evaluation: 08/18/18 Time of Evaluation: 08:30 - Subjective Subjective: PGY-1 Medicine Progress Note for Dr. Cortés Patient seen and examined at bedside this AM. No acute overnight events reported. Patient continues to have shortness of breath, dry cough improving. No fevers/chills, chest pain, palpitations, sob, n/v/d/c, dysuria, or changes in stool. Bronchoscopy scheduled this AM. Objective - Vital Signs/Intake and Output Vital Signs (last 24 hours): Temp Pulse Resp BP Pulse Ox 98.6 F 113 H 18 96/65 L 96 08/18/18 14:00 08/18/18 14:00 08/18/18 14:00 08/18/18 14:00 08/18/18 12:25 - Medications Medications: Current Medications Acetaminophen (Tylenol 325mg Tab) 650 mg PO Q4H PRN PRN Reason: Fever >100.4 F Last Admin: 08/15/18 07:38 Dose: 650 mg Arformoterol Tartrate (Brovana) 15 mcg IH [id number] [facility] Last Admin: 08/18/18 08:35 Dose: 15 mcg Aspirin (Ecotrin) 81 mg PO DAILY [facility] Last Admin: 08/18/18 10:00 Dose: Not Given Budesonide (Pulmicort Respules) 0.5 mg IH [id number] [facility] Last Admin: 08/18/18 08:35 Dose: 0.5 mg Clonazepam (Klonopin) 0.5 mg PO TID [facility]; Protocol Last Admin: 08/18/18 13:55 Dose: 0.5 mg Doxycycline Hyclate (Doryx) 100 mg PO Q12 [facility]; Protocol Stop: 08/21/18 10:01 Last Admin: 08/18/18 13:55 Dose: 100 mg Enoxaparin Sodium (Lovenox) 40 mg SC DAILY [facility]; Protocol Last Admin: 08/18/18 10:00 Dose: Not Given Furosemide (Lasix) 20 mg IVP DAILY [facility] Last Admin: 08/17/18 09:21 Dose: 20 mg Clindamycin Phosphate 900 mg/ (Sodium Chloride) 106 mls @ 106 mls/hr IVPB Q8 [facility]; Protocol Stop: 08/21/18 14:01 Last Admin: 08/18/18 05:20 Dose: 106 mls/hr Meropenem (Merrem Iv 1 Gm Premix) 1 gm in 50 mls @ 100 mls/hr IVPB Q8 [facility]; Protocol Stop: 08/21/18 14:01 Last Admin: 08/18/18 05:22 Dose: 100 mls/hr Voriconazole 200 mg/ Sodium (Chloride) 100 mls @ 50 mls/hr IVPB Q12 [facility]; Protocol Stop: 08/24/18 13:15 Last Admin: 08/18/18 09:37 Dose: 50 mls/hr Ipratropium [place] (Atrovent) 0.5 mg IH [id number] PRN PRN Reason: Shortness of Breath Last Admin: 08/14/18 07:26 Dose: 0.5 mg Levalbuterol HCl (Xopenex) 0.63 mg IH [id number] PRN PRN Reason: Shortness of Breath Last Admin: 08/14/18 20:00 Dose: 0.63 mg Methadone HCl (Methadone) 100 mg PO DAILY [facility] Last Admin: 08/18/18 09:43 Dose: 100 mg Methylprednisolone (Solu-Medrol) 20 mg IVP DAILY [facility] Last Admin: 08/18/18 09:41 Dose: 20 mg Metoprolol Tartrate (Lopressor) 12.5 mg PO Q12 [facility] Last Admin: 08/18/18 09:43 Dose: 12.5 mg Pantoprazole Sodium (Protonix Ec Tab) 40 mg PO 0600 [facility] Last Admin: 08/18/18 05:19 Dose: 40 mg Primaquine Phosphate (Primaquine) 26.3 mg PO DAILY [facility]; Protocol Stop: 08/21/18 10:01 Last Admin: 08/18/18 13:55 Dose: 26.3 mg Tramadol HCl (Ultram) 50 mg PO Q8H PRN PRN Reason: Pain, moderate (4-7) Last Admin: 08/18/18 09:42 Dose: 50 mg - Labs Labs: 08/18/18 07:30 08/18/18 07:30 - Constitutional Appears: Non-toxic, No Acute Distress, Cachectic, Chronically Ill - Head Exam Head Exam: ATRAUMATIC, NORMAL INSPECTION, NORMOCEPHALIC - Eye Exam Eye Exam: EOMI, Normal appearance - ENT Exam ENT Exam: Mucous Membranes Moist, Normal Exam - Neck Exam Neck Exam: Full ROM, Normal Inspection - Respiratory Exam Respiratory Exam: Rhonchi, NORMAL BREATHING PATTERN - Cardiovascular Exam Cardiovascular Exam: REGULAR RHYTHM, +S1, +S2 - GI/Abdominal Exam GI & Abdominal Exam: Soft, Normal Bowel Sounds. absent: Distended, Firm, Guarding, Rigid, Tenderness, Organomegaly - Extremities Exam Extremities Exam: Full ROM, Normal Capillary Refill, Normal Inspection. 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 Recently discharged from [facility] for similar symptoms and treated for PNA. Chest CT shows multiple nodules throughout b/l lung asif with one possible cavitary les ion. Malignant neoplasm vs infection (TB or fungal infection) vs inflammatory nodules; Bilateral R>L consolidations and small bilateral pleural effusions; calcified right hilar and mediastinal lymph nodes. Pt is on airborne isolation pending AFBs to rule out TB. On broad spectrum antibiotics and antifungal. Overall prognosis poor secondary to noncompliance. Plan: Multifocal pneumonia, r/o pulmonary TB vs other opportunistic infection --patient is afebrile, no leukocytosis noted --Cryptococcus Ag screen negative --legionella negative --AFB x 3 negative --serum Aspergillus and B-(1,3)-D-glucan positive positive, patient currently covered for aspergillus and PCP --ID recs (Dr. Chou) appreciated -sputum cx positive for mold -voriconazole added to current med regimen --Pulm recs (Dr. Haddad) appreciated -CXR (08/12): with b/l lower lobe consolidations -CT chest w/o contrast (08/12): innumerable nodular opacities throughout bilateral lung asif as delineated above including 1 nodule with probable cavitations. Malignant neoplasm vs Infection (TB or fungal infection) vs inflammatory nodules; Bilateral R>L consolidations and small bilateral pleural effusions; calcified right hilar and mediastinal lymph nodes -c/w supp O2 as needed, goal sat 90%, duonebs PRN, IS -ABx as per ID, covering for HCAP, MRSA -*Bronchoscopy scheduled this AM aborted d/t equipment malfunction -abx as per ID, cover for mold Asp spp, PCP, HCAP -Pulmonary will continue to follow --Medications -Doxycycline IVPB q12 [facility] -Meropenem IVPB q8 [facility] -Clindamycin IVPB q8 [facility] -Primaquine 26.3mg PO daily -Voriconazole 200 mg IVPB q12 Urine Cx positive for gram positive cocci --Asymptomatic --broad spectrum abx coverage as above Hx Positive AFB on Liver Bx --AFB x3 negative Hx of CHF --Cardio recs (Dr. Umaña) appreciated -ECHO: 45.4%; mild TR; moderate pHTN --Medications -Lopressor 12.5mg po q12 [facility]jamin -Lasix 20mg IVP daily -Aspirin 81mg po daily -1x dose Lasix 20mg IVP daily Hx of COPD --ABG wnl --Medications -Brovana 15mcg [id number] [facility] -Pulmicort 0.5mg [id number] [facility] -Atrovent 0.5mg q6h resp prn -Xopenex 0.63 mg IH q6h resp -Solumedrol 20mg IVP daily benjamin Hx of Heroin abuse --Methadone 100mg po daily benjamin Hx of anxiety --Klonopin 0.5mg po tid benjamin Hx of chronic back pain --Tramadol 50mg po q8h prn --Tylenol 650mg po q4h prn PPx, Diet, Disposition --GI ppx: Protonix 40mg PO daily --DVT ppx: Lovenox 40mg SC Daily --Diet: HHD --Disposition: Bronchoscopy this AM aborted due to equipment malfunction, pulm to continue following. Abx coverage continued for mold Asp spp, PCP, HCAP. AFB x 3 negative to r/o TB. Case discussed with Dr. Moo Altamirano DO, PGY-1 <Yoel Cortés - Last Filed: 08/19/18 07:14> Objective - Vital Signs/Intake and Output Vital Signs (last 24 hours): Temp Pulse Resp BP Pulse Ox 97.7 F 99 H 20 99/65 L 94 L 08/18/18 23:22 08/18/18 23:22 08/18/18 23:22 08/18/18 23:22 08/18/18 23:22 - Medications Medications: Current Medications Acetaminophen (Tylenol 325mg Tab) 650 mg PO Q4H PRN PRN Reason: Fever >100.4 F Last Admin: 08/15/18 07:38 Dose: 650 mg Arformoterol Tartrate (Brovana) 15 mcg IH [id number] [facility] Last Admin: 08/18/18 20:19 Dose: 15 mcg Aspirin (Ecotrin) 81 mg PO DAILY [facility] Last Admin: 08/18/18 10:00 Dose: Not Given Budesonide (Pulmicort Respules) 0.5 mg IH [id number] [facility] Last Admin: 08/18/18 20:19 Dose: 0.5 mg Clonazepam (Klonopin) 0.5 mg PO TID [facility]; Protocol Last Admin: 08/18/18 17:32 Dose: 0.5 mg Doxycycline Hyclate (Doryx) 100 mg PO Q12 [facility]; Protocol Stop: 08/21/18 10:01 Last Admin: 08/18/18 22:07 Dose: 100 mg Enoxaparin Sodium (Lovenox) 40 mg SC DAILY [facility]; Protocol Last Admin: 08/18/18 10:00 Dose: Not Given Furosemide (Lasix) 20 mg IVP DAILY [facility] Last Admin: 08/18/18 16:59 Dose: 20 mg Clindamycin Phosphate 900 mg/ (Sodium Chloride) 106 mls @ 106 mls/hr IVPB Q8 [facility]; Protocol Stop: 08/21/18 14:01 Last Admin: 08/19/18 05:45 Dose: 106 mls/hr Meropenem (Merrem Iv 1 Gm Premix) 1 gm in 50 mls @ 100 mls/hr IVPB Q8 [facility]; Protocol Stop: 08/21/18 14:01 Last Admin: 08/19/18 05:45 Dose: 100 mls/hr Voriconazole 200 mg/ Sodium (Chloride) 100 mls @ 50 mls/hr IVPB Q12 [facility]; Protocol Stop: 08/24/18 13:15 Last Admin: 08/18/18 22:05 Dose: 50 mls/hr Ipratropium [place] (Atrovent) 0.5 mg IH [id number] PRN PRN Reason: Shortness of Breath Last Admin: 08/14/18 07:26 Dose: 0.5 mg Levalbuterol HCl (Xopenex) 0.63 mg IH [id number] PRN PRN Reason: Shortness of Breath Last Admin: 08/14/18 20:00 Dose: 0.63 mg Methadone HCl (Methadone) 100 mg PO DAILY [facility] Last Admin: 08/18/18 09:43 Dose: 100 mg Methylprednisolone (Solu-Medrol) 20 mg IVP DAILY [facility] Last Admin: 08/18/18 09:41 Dose: 20 mg Metoprolol Tartrate (Lopressor) 12.5 mg PO Q12 [facility] Last Admin: 08/18/18 22:07 Dose: 12.5 mg Pantoprazole Sodium (Protonix Ec Tab) 40 mg PO 0600 [facility] Last Admin: 08/19/18 05:45 Dose: 40 mg Primaquine Phosphate (Primaquine) 26.3 mg PO DAILY [facility]; Protocol Stop: 08/21/18 10:01 Last Admin: 08/18/18 13:55 Dose: 26.3 mg Tramadol HCl (Ultram) 50 mg PO Q8H PRN PRN Reason: Pain, moderate (4-7) Last Admin: 08/18/18 09:42 Dose: 50 mg - Labs Labs: 08/18/18 07:30 08/18/18 07:30 Attending/Attestation - Attestation I have personally seen and examined this patient.: Yes I have fully participated in the care of the patient.: Yes I have reviewed all pertinent clinical information, including history, physical exam and plan: Yes Notes (Text): 08/18/18 38 year old female with past medical history of HIV/AIDs, COPD, asthma, heroin abuse, CHF who was recently discharged from [facility] presented with shortness of breath. CT chest showed nodular opacities throughout bilateral lung asif including one nodule with probable cavitation, bilateral R>L consolidations and small bilateral pleural effusions. Patient is on airborne isolation; pending AFBs to rule out TB. Second AFB was negative and third one is pending. Continue with antibiotics as per ID. Pulmonary is also following; plan for bronch was aborted due to equipment malfunction. Counselled on medication compliance. Overall prognosis is poor secondary to noncompliance. Yoel Cortés MD Hospitalist.
--- NOTE | 2018-08-18 16:42 | PN ---
DATE: 08/18/2018 SUBJECTIVE: The patient is seen earlier today in 578, bed 1. She is doing better. No fevers and chills. Less short of breath. PHYSICAL EXAMINATION: VITAL SIGNS: Temperature is 98, blood pressure is 106/70, respiratory rate of 20, heart rate of 91. HEENT: Unremarkable. NECK: Supple. LUNGS: Have decreased breath sounds. HEART: Normal S1, S2. ABDOMINAL: Soft. LABORATORY EXAMINATION: Reveals the chemistries are noted. White count is 6.9. Chemistries reveals a BUN of 40, creatinine of 0.6. Urinalysis is noted. Serology is reviewed. Microbiology: Mycobacterium AFB, no AFB is seen. On the sputum, no other microbiology. No AFB is seen. Mold is seen on the sputum culture. 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 Admitted with sepsis with Pneumocystis carinii pneumonia, also known as Pneumocystis jirovecii pneumonia, now with Aspergillus. Negative AFB x2. May discontinue isolation. Patient is not clearly coughing. It is more shortness of breath and hypoxia. The patient is to start on Biktarvy today. We will use the pharmacy and start her on Biktarvy as outpatient medicine and Dr. Ruiz's note is reviewed for possible bronchoscopy. We will follow with you. Cheikh Chou MD
[2018-08-19] MEDS ORDERED: Oxycodone/Acetaminophen 5/325 mg Tab PO STA ×2 (02:58→20:59)
[2018-08-19] MEDS: Meropenem IV 1 gm in NS 1 GM/50 ML BAG IVPB SCH ×3 (05:45→21:16)
[2018-08-19] MEDS: Pantoprazole 40 mg EC Tab PO SCH (05:45)
[2018-08-19 07:34] LABS: BASO # 0.01 K/mm3 (0.0-2.0); BASO % 0.2 % (0.0-3.0); EOS # 0.1 (0.0-0.7); EOS % 1.5 % (1.5-5.0); GRAN # 3.59 (1.4-6.5); GRAN % 77.4 % (50.0-68.0); HEMOGLOBIN 7.2 g/dL (12.0-16.0); LYMPH # 0.7 (1.2-3.4); LYMPH % 14.2 % (22.0-35.0); MEAN CORPUSCULAR HEMOGLOBIN 26.3 pg (25.0-35.0); MEAN CORPUSCULAR HGB CONC 30.9 g/dl (31.0-37.0); MEAN PLATELET VOLUME 10.3 fl (7.0-11.0); MONO # 0.3 (0.1-0.6); MONO % 6.7 % (1.0-6.0); RBC 2.74 10^6/uL (3.5-6.1); RED CELL DISTRIBUTION WIDTH 17.1 % (11.5-14.5); WHITE BLOOD COUNT 4.6 10^3/uL (4.5-11.0)
[2018-08-19] MEDS: Arformoterol 15 mcg/2 ml Inh Sol IH SCH ×2 (07:47→20:48)
[2018-08-19] MEDS: Budesonide 0.5 mg/2 ml Inhal Susp UD IH SCH ×2 (07:47→20:48)
[2018-08-19 08:05] LABS: ALB/GLOB RATIO 0.8 (1.1-1.8); ALBUMIN 2.8 g/dL (3.0-4.8); ALT/SGPT 20 U/L (7-56); AST/SGOT 32 U/L (14-36); BLOOD UREA NITROGEN 39 mg/dL (7-21); CALCIUM 9.2 mg/dL (8.4-10.5); GFR NON-AFRICAN AMERICAN > 60
[2018-08-19] MEDS: Enoxaparin 40 mg Syringe SC SCH (09:55)
[2018-08-19] MEDS: MethylPREDNISolone 40 mg Vial IVP SCH (09:56)
[2018-08-19] MEDS: Primaquine 26.3 mg Tab PO SCH (09:56)
--- NOTE | 2018-08-19 12:58 | PN ---
DATE: 08/19/2018 SUBJECTIVE: Patient seen earlier this morning. She actually looks much improved this morning. No fevers and no chills. Still short of breath, but less. PHYSICAL EXAMINATION: VITAL SIGNS: Temperature is 98, blood pressure is 100/60, respiratory rate of 20, and heart rate of 99. HEENT: Unremarkable. NECK: Supple. LUNGS: Decreased breath sounds. HEART: Normal S1 and S2. ABDOMEN: Soft. LABORATORY EXAMINATION: Reveals a white count of 4.6, hemoglobin of 7, and platelets of 141. Chemistries reveal a BUN of 39, creatinine of 0.8. Procalcitonin is 0.63. Urinalysis is noted. Toxicology is noted. Serology reveals Aspergillus antigen is detected. Aspergillus index value is also positive. Urine for Legionella antigen is negative. Cryptococcus is negative. Beta-1, 3D Glucan is greater than 500, interpreted as positive. Microbiology is reviewed. ASSESSMENT AND PLAN: A 38-year-old female with end-stage acquired immune deficiency syndrome with multiple episodes of Pneumocystis carinii pneumonia, history of intravenous drug abuse, again admitted now with sepsis with Pneumocystis carinii pneumonia, also known as Pneumocystis jiroveci pneumonia, now with Aspergillus pneumonia, status post attempted bronchoscopy, but not able to do a bronchoscopy. Negative acid-fast bacilli x2. She did have a positive acid-fast bacilli smear on a liver biopsy, but no cultures done at that time and currently, patient will be started on Biktarvy. We will continue the clindamycin and primaquine. We will discontinue the doxycycline. Continue with the voriconazole and meropenem for now, today is day #7 of meropenem, will be discontinuing that in the next few days. We will continue with the Solu-Medrol. No isolation necessary along with negative acid-fast bacilli. We will continue present management and we will follow with you. Cheikh Chou MD
[2018-08-19] MEDS: Levalbuterol 0.63 MG/3 ML Inhal Soln UD IH PRN (13:29)
--- NOTE | 2018-08-19 18:10 | CP.PCM.PN ---
<Jose Altamirano - Last Filed: 08/19/18 18:34> Subjective - Date & Time of Evaluation Date of Evaluation: 08/19/18 Time of Evaluation: 09:15 - Subjective Subjective: PGY-1 Medicine Progress Note for Dr. Cortés Patient seen and examined at bedside this AM. No acute overnight events reported. Patient off respiratory precautions. SOB improving, some coarse breath sounds still present. Intermittent cough improving. No fevers/chills, chest pain, palpitations, sob, n/v/d/c, dysuria, or changes in stool. Objective - Vital Signs/Intake and Output Vital Signs (last 24 hours): Temp Pulse Resp BP Pulse Ox 98.5 F 96 H 20 101/65 97 08/19/18 14:00 08/19/18 14:00 08/19/18 14:00 08/19/18 14:00 08/19/18 14:00 - Medications Medications: Current Medications Acetaminophen (Tylenol 325mg Tab) 650 mg PO Q4H PRN PRN Reason: Fever >100.4 F Last Admin: 08/15/18 07:38 Dose: 650 mg Arformoterol Tartrate (Brovana) 15 mcg IH [id number] [facility] Last Admin: 08/19/18 07:47 Dose: 15 mcg Aspirin (Ecotrin) 81 mg PO DAILY [facility] Last Admin: 08/19/18 09:53 Dose: 81 mg Budesonide (Pulmicort Respules) 0.5 mg IH [id number] [facility] Last Admin: 08/19/18 07:47 Dose: 0.5 mg Clonazepam (Klonopin) 0.5 mg PO TID [facility]; Protocol Last Admin: 08/19/18 17:20 Dose: 0.5 mg Enoxaparin Sodium (Lovenox) 40 mg SC DAILY [facility]; Protocol Last Admin: 08/19/18 09:55 Dose: 40 mg Furosemide (Lasix) 20 mg IVP DAILY [facility] Last Admin: 08/19/18 09:54 Dose: 20 mg Clindamycin Phosphate 900 mg/ (Sodium Chloride) 106 mls @ 106 mls/hr IVPB Q8 [facility]; Protocol Stop: 08/21/18 14:01 Last Admin: 08/19/18 13:22 Dose: 106 mls/hr Meropenem (Merrem Iv 1 Gm Premix) 1 gm in 50 mls @ 100 mls/hr IVPB Q8 [facility]; Protocol Stop: 08/21/18 14:01 Last Admin: 08/19/18 13:26 Dose: 100 mls/hr Voriconazole 200 mg/ Sodium (Chloride) 100 mls @ 50 mls/hr IVPB Q12 [facility]; Protocol Stop: 08/24/18 13:15 Last Admin: 08/19/18 09:44 Dose: 50 mls/hr Ipratropium [place] (Atrovent) 0.5 mg IH [id number] PRN PRN Reason: Shortness of Breath Last Admin: 08/14/18 07:26 Dose: 0.5 mg Levalbuterol HCl (Xopenex) 0.63 mg IH [id number] PRN PRN Reason: Shortness of Breath Last Admin: 08/19/18 13:29 Dose: 0.63 mg Methadone HCl (Methadone) 100 mg PO DAILY [facility] Last Admin: 08/19/18 09:56 Dose: 100 mg Methylprednisolone (Solu-Medrol) 20 mg IVP DAILY [facility] Last Admin: 08/19/18 09:56 Dose: 20 mg Metoprolol Tartrate (Lopressor) 12.5 mg PO Q12 [facility] Last Admin: 08/19/18 09:54 Dose: 12.5 mg Pantoprazole Sodium (Protonix Ec Tab) 40 mg PO 0600 [facility] Last Admin: 08/19/18 05:45 Dose: 40 mg Primaquine Phosphate (Primaquine) 26.3 mg PO DAILY [facility]; Protocol Stop: 08/21/18 10:01 Last Admin: 08/19/18 09:56 Dose: 26.3 mg Tramadol HCl (Ultram) 50 mg PO Q8H PRN PRN Reason: Pain, moderate (4-7) Last Admin: 08/18/18 09:42 Dose: 50 mg - Labs Labs: 08/19/18 07:15 08/19/18 07:15 - Constitutional Appears: Non-toxic, No Acute Distress, Cachectic, Chronically Ill - Head Exam Head Exam: ATRAUMATIC, NORMAL INSPECTION, NORMOCEPHALIC - Eye Exam Eye Exam: EOMI, Normal appearance - ENT Exam ENT Exam: Mucous Membranes Moist, Normal Exam - Neck Exam Neck Exam: Full ROM, Normal Inspection - Respiratory Exam Respiratory Exam: Rhonchi (improving), NORMAL BREATHING PATTERN - Cardiovascular Exam Cardiovascular Exam: REGULAR RHYTHM, +S1, +S2 - GI/Abdominal Exam GI & Abdominal Exam: Soft, Normal Bowel Sounds. 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 [place] [facility] [place] and treated for PNA. Chest CT shows multiple nodules throughout b/l lung asif with one possible cavitary lesion. Malignant neoplasm vs infection (TB or fungal infection) vs inflammatory nodules; Bilateral R>L consolidations and small bilateral pleural effusions; calcified right hilar and mediastinal lymph nodes. Pt is on airborne isolation pending AFBs to rule out TB. On broad spectrum antibiotics and antifungal. Overall prognosis poor secondary to noncompliance. Plan: Multifocal pneumonia, r/o pulmonary TB vs other opportunistic infection --patient is afebrile, no leukocytosis noted --Cryptococcus Ag screen negative --legionella negative --AFB x 3 negative --serum Aspergillus and B-(1,3)-D-glucan positive positive, patient currently covered for aspergillus and PCP --ID recs (Dr. Chou) appreciated -patient will be started on Biktarvy -continue with clinda and primaquine, d/c doxycycline -continue with voriconazole and meropenem for now, today is day 7 of meropenem; to d/c tia in next few days -continue with solumedrol -no isolation necessary -ID to continue following --Pulm recs (Dr. Haddad) appreciated -CXR (08/12): with b/l lower lobe consolidations -CT chest w/o contrast (08/12): innumerable nodular opacities throughout bilateral lung asif as delineated above including 1 nodule with probable cavitations. Malignant neoplasm vs Infection (TB or fungal infection) vs inflammatory nodules; Bilateral R>L consolidations and small bilateral pleural effusions; calcified right hilar and mediastinal lymph nodes -c/w supp O2 as needed, goal sat 90%, duonebs PRN, IS -ABx as per ID, covering for HCAP, MRSA -*Bronchoscopy scheduled this AM aborted d/t equipment malfunction -abx as per ID, cover for mold Asp spp, PCP, HCAP -Pulmonary will continue to follow --Medications -Meropenem IVPB q8 benjamin -Clindamycin IVPB q8 benjamin -Primaquine 26.3mg PO daily -Voriconazole 200 mg IVPB q12 Urine Cx positive for gram positive cocci --Asymptomatic --broad spectrum abx coverage as above Hx Positive AFB on Liver Bx --AFB x3 negative Hx of CHF --Cardio recs (Dr. Umaña) appreciated -ECHO: 45.4%; mild TR; moderate pHTN --Medications -Lopressor 12.5mg po q12 benjamin -Lasix 20mg IVP daily -Aspirin 81mg po daily -1x dose Lasix 20mg IVP daily Hx of COPD --ABG wnl --Medications -Brovana 15mcg [id number] benjamin -Pulmicort 0.5mg [id number] benjamin -Atrovent 0.5mg q6h resp prn -Xopenex 0.63 mg IH q6h resp -Solumedrol 20mg IVP daily benjamin Hx of Heroin abuse --Methadone 100mg po daily benjamin Hx of anxiety --Klonopin 0.5mg po tid benjamin Hx of chronic back pain --Tramadol 50mg po q8h prn --Tylenol 650mg po q4h prn PPx, Diet, Disposition --GI ppx: Protonix 40mg PO daily --DVT ppx: Lovenox 40mg SC Daily --Diet: HHD --Disposition: Abx coverage continued for mold Asp spp, PCP, HCAP. AFB x 3 negative, off respiratory precautions. Continue to monitor. Case discussed with Dr. Moo Altamirano DO, PGY-1 <Yoel Cortés - Last Filed: 08/20/18 08:23> Objective - Vital Signs/Intake and Output Vital Signs (last 24 hours): Temp Pulse Resp BP Pulse Ox 98.2 F 96 H 18 103/66 95 08/19/18 22:28 08/19/18 22:28 08/19/18 22:28 08/19/18 22:28 08/19/18 22:28 - Medications Medications: Current Medications Acetaminophen (Tylenol 325mg Tab) 650 mg PO Q4H PRN PRN Reason: Fever >100.4 F Last Admin: 08/15/18 07:38 Dose: 650 mg Arformoterol Tartrate (Brovana) 15 mcg IH [id number] [facility] Last Admin: 08/20/18 07:05 Dose: 15 mcg Aspirin (Ecotrin) 81 mg PO DAILY [facility] Last Admin: 08/19/18 09:53 Dose: 81 mg Budesonide (Pulmicort Respules) 0.5 mg IH [id number] [facility] Last Admin: 08/20/18 07:05 Dose: 0.5 mg Clonazepam (Klonopin) 0.5 mg PO TID [facility]; Protocol Last Admin: 08/19/18 17:20 Dose: 0.5 mg Enoxaparin Sodium (Lovenox) 40 mg SC DAILY [facility]; Protocol Last Admin: 08/19/18 09:55 Dose: 40 mg Furosemide (Lasix) 20 mg IVP DAILY [facility] Last Admin: 08/19/18 09:54 Dose: 20 mg Clindamycin Phosphate 900 mg/ (Sodium Chloride) 106 mls @ 106 mls/hr IVPB Q8 [facility]; Protocol Stop: 08/21/18 14:01 Last Admin: 08/20/18 06:07 Dose: 106 mls/hr Meropenem (Merrem Iv 1 Gm Premix) 1 gm in 50 mls @ 100 mls/hr IVPB Q8 [facility]; Protocol Stop: 08/21/18 14:01 Last Admin: 08/20/18 07:55 Dose: 100 mls/hr Voriconazole 200 mg/ Sodium (Chloride) 100 mls @ 50 mls/hr IVPB Q12 [facility]; Protocol Stop: 08/24/18 13:15 Last Admin: 08/20/18 01:08 Dose: 50 mls/hr Ipratropium [place] (Atrovent) 0.5 mg IH [id number] PRN PRN Reason: Shortness of Breath Last Admin: 08/14/18 07:26 Dose: 0.5 mg Levalbuterol HCl (Xopenex) 0.63 mg IH [id number] PRN PRN Reason: Shortness of Breath Last Admin: 08/19/18 13:29 Dose: 0.63 mg Methadone HCl (Methadone) 100 mg PO DAILY [facility] Last Admin: 08/19/18 09:56 Dose: 100 mg Methylprednisolone (Solu-Medrol) 20 mg IVP DAILY [facility] Last Admin: 08/19/18 09:56 Dose: 20 mg Metoprolol Tartrate (Lopressor) 12.5 mg PO Q12 [facility] Last Admin: 08/19/18 21:14 Dose: 12.5 mg Pantoprazole Sodium (Protonix Ec Tab) 40 mg PO 0600 [facility] Last Admin: 08/20/18 06:07 Dose: 40 mg Primaquine Phosphate (Primaquine) 26.3 mg PO DAILY [facility]; Protocol Stop: 08/21/18 10:01 Last Admin: 08/19/18 09:56 Dose: 26.3 mg Tramadol HCl (Ultram) 50 mg PO Q8H PRN PRN Reason: Pain, moderate (4-7) Last Admin: 08/18/18 09:42 Dose: 50 mg - Labs Labs: 08/19/18 07:15 08/19/18 07:15 Attending/Attestation - Attestation I have personally seen and examined this patient.: Yes I have fully participated in the care of the patient.: Yes I have reviewed all pertinent clinical information, including history, physical exam and plan: Yes Notes (Text): 08/19/18 38 year old female with past medical history of HIV/AIDs, COPD, asthma, heroin abuse, CHF who was recently [place] [facility] presented with shortness of breath. CT chest showed nodular opacities throughout bilateral lung asif including one nodule with probable cavitation, bilateral R>L consolidations and small bilateral pleural effusions. AFB x 3 have been negative. Continue with antibiotics as per ID. Pulmonary is also following; plan for bronch was aborted yesterday due to equipment malfunction. Counselled on medication compliance. Overall prognosis is poor secondary to noncompliance. Yoel Cortés MD Hospitalist.
[2018-08-20] MEDS ORDERED: Oxycodone/Acetaminophen 5/325 mg Tab PO STA (04:32)
[2018-08-20] MEDS: Pantoprazole 40 mg EC Tab PO SCH (06:07)
[2018-08-20] MEDS: Budesonide 0.5 mg/2 ml Inhal Susp UD IH SCH ×2 (07:05→21:05)
[2018-08-20] MEDS: Arformoterol 15 mcg/2 ml Inh Sol IH SCH ×2 (07:05→21:05)
[2018-08-20] MEDS: Meropenem IV 1 gm in NS 1 GM/50 ML BAG IVPB SCH ×3 (07:55→21:38)
[2018-08-20] MEDS: Enoxaparin 40 mg Syringe SC SCH (09:23)
[2018-08-20] MEDS: MethylPREDNISolone 40 mg Vial IVP SCH (09:30)
[2018-08-20] MEDS: Primaquine 26.3 mg Tab PO SCH (09:30)
[2018-08-20 10:33] LABS: BASO # 0.01 K/mm3 (0.0-2.0); BASO % 0.1 % (0.0-3.0); EOS # 0.1 (0.0-0.7); EOS % 1.1 % (1.5-5.0); GRAN # 6.74 (1.4-6.5); GRAN % 81.2 % (50.0-68.0); HEMOGLOBIN 8.1 g/dL (12.0-16.0); LYMPH # 0.9 (1.2-3.4); MEAN CELL VOLUME 85.3 fl (80.0-105.0); MEAN CORPUSCULAR HEMOGLOBIN 26.4 pg (25.0-35.0); MEAN CORPUSCULAR HGB CONC 30.9 g/dl (31.0-37.0); MONO # 0.6 (0.1-0.6); MONO % 6.6 % (1.0-6.0); RBC 3.07 10^6/uL (3.5-6.1); RED CELL DISTRIBUTION WIDTH 17.3 % (11.5-14.5); WHITE BLOOD COUNT 8.3 10^3/uL (4.5-11.0)
[2018-08-20 10:59] LABS: ALB/GLOB RATIO 0.9 (1.1-1.8); ALT/SGPT 20 U/L (7-56); AST/SGOT 32 U/L (14-36); BLOOD UREA NITROGEN 34 mg/dL (7-21); CALCIUM 9.5 mg/dL (8.4-10.5); GFR NON-AFRICAN AMERICAN > 60
--- NOTE | 2018-08-20 12:57 | CP.PCM.PN ---
<Osvaldo Herrmann - Last Filed: 08/20/18 13:19> Subjective - Date & Time of Evaluation Date of Evaluation: 08/20/18 Time of Evaluation: 06:00 - Subjective Subjective: Pt seen and examined this morning at bedside. Pt reports "lung pain". Denies nausea, vomiting Objective - Vital Signs/Intake and Output Vital Signs (last 24 hours): Temp Pulse Resp BP Pulse Ox 98.0 F 98 H 18 110/74 95 08/20/18 06:00 08/20/18 06:00 08/20/18 06:00 08/20/18 09:24 08/20/18 11:57 - Medications Medications: Current Medications Acetaminophen (Tylenol 325mg Tab) 650 mg PO Q4H PRN PRN Reason: Fever >100.4 F Last Admin: 08/15/18 07:38 Dose: 650 mg Arformoterol Tartrate (Brovana) 15 mcg IH [id number] [facility] Last Admin: 08/20/18 07:05 Dose: 15 mcg Aspirin (Ecotrin) 81 mg PO DAILY [facility] Last Admin: 08/20/18 09:22 Dose: 81 mg Budesonide (Pulmicort Respules) 0.5 mg IH [id number] [facility] Last Admin: 08/20/18 07:05 Dose: 0.5 mg Clonazepam (Klonopin) 0.5 mg PO TID [facility]; Protocol Last Admin: 08/20/18 09:22 Dose: 0.5 mg Enoxaparin Sodium (Lovenox) 40 mg SC DAILY [facility]; Protocol Last Admin: 08/20/18 09:23 Dose: 40 mg Furosemide (Lasix) 20 mg IVP DAILY [facility] Last Admin: 08/20/18 09:24 Dose: 20 mg Clindamycin Phosphate 900 mg/ (Sodium Chloride) 106 mls @ 106 mls/hr IVPB Q8 [facility]; Protocol Stop: 08/21/18 14:01 Last Admin: 08/20/18 06:07 Dose: 106 mls/hr Meropenem (Merrem Iv 1 Gm Premix) 1 gm in 50 mls @ 100 mls/hr IVPB Q8 [facility]; Protocol Stop: 08/21/18 14:01 Last Admin: 08/20/18 07:55 Dose: 100 mls/hr Voriconazole 200 mg/ Sodium (Chloride) 100 mls @ 50 mls/hr IVPB Q12 [facility]; Protocol Stop: 08/24/18 13:15 Last Admin: 08/20/18 09:35 Dose: 50 mls/hr Ipratropium [place] (Atrovent) 0.5 mg IH [id number] PRN PRN Reason: Shortness of Breath Last Admin: 08/14/18 07:26 Dose: 0.5 mg Levalbuterol HCl (Xopenex) 0.63 mg IH [id number] PRN PRN Reason: Shortness of Breath Last Admin: 08/19/18 13:29 Dose: 0.63 mg Methadone HCl (Methadone) 100 mg PO DAILY [facility] Last Admin: 08/20/18 09:28 Dose: 100 mg Methylprednisolone (Solu-Medrol) 20 mg IVP DAILY [facility] Last Admin: 08/20/18 09:30 Dose: 20 mg Metoprolol Tartrate (Lopressor) 12.5 mg PO Q12 [facility] Last Admin: 08/20/18 09:23 Dose: 12.5 mg Pantoprazole Sodium (Protonix Ec Tab) 40 mg PO 0600 [facility] Last Admin: 08/20/18 06:07 Dose: 40 mg Primaquine Phosphate (Primaquine) 26.3 mg PO DAILY [facility]; Protocol Stop: 08/21/18 10:01 Last Admin: 08/20/18 09:30 Dose: 26.3 mg Tramadol HCl (Ultram) 50 mg PO Q8H PRN PRN Reason: Pain, moderate (4-7) Last Admin: 08/20/18 10:24 Dose: 50 mg - Labs Labs: 08/20/18 10:20 08/20/18 10:20 - Constitutional Appears: Non-toxic, No Acute Distress - Head Exam Head Exam: ATRAUMATIC, NORMAL INSPECTION, NORMOCEPHALIC - Eye Exam Eye Exam: EOMI - ENT Exam ENT Exam: Mucous Membranes Moist - Neck Exam Neck Exam: Full ROM - Respiratory Exam Respiratory Exam: Clear to Ausculation Bilateral, NORMAL BREATHING PATTERN. absent: Wheezes, Respiratory Distress, Stridor - Cardiovascular Exam Cardiovascular Exam: RRR, +S1, +S2 - GI/Abdominal Exam GI & Abdominal Exam: Soft, Normal Bowel Sounds. absent: Tenderness - Extremities Exam Extremities Exam: Full ROM. 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 Recently discharged from [facility] for similar symptoms and treated for PNA. Chest CT shows multiple nodules throughout b/l lung asif with one possible cavitary lesion. Malignant neoplasm vs infection (TB or fungal infection) vs inflammatory nodules; Bilateral R>L consolidations and small bilateral pleural effusions; calcified right hilar and mediastinal lymph nodes. Pt is on airborne isolation pending AFBs to rule out TB. On broad spectrum antibiotics and antifungal. Overall prognosis poor secondary to noncompliance. Plan: Multifocal pneumonia, r/o pulmonary TB vs other opportunistic infection - patient is afebrile, no leukocytosis noted - Cryptococcus Ag screen negative - legionella negative - AFB x 3 negative - serum Aspergillus and B-(1,3)-D-glucan positive positive, patient currently covered for aspergillus and PCP - ID recs (Dr. Chou) appreciated - continue with clinda and primaquine, d/c doxycycline - continue with voriconazole and meropenem for now, today is day 7 of meropenem; to d/c tia in next few days - continue with solumedrol - Pulm recs (Dr. Haddad) appreciated - CXR (08/12): with b/l lower lobe consolidations - CT chest w/o contrast (08/12): innumerable nodular opacities throughout bilateral lung asif as delineated above including 1 nodule with probable cavitations. Malignant neoplasm vs Infection (TB or fungal infection) vs inflammatory nodules; Bilateral R>L consolidations and small bilateral pleural effusions; calcified right hilar and mediastinal lymph nodes - c/w supp O2 as needed, goal sat 90%, duonebs PRN, IS - ABx as per ID, covering for HCAP, MRSA - abx as per ID, cover for mold Asp spp, PCP, HCAP - Pulmonary will continue to follow - Meropenem IVPB q8 benjamin - Clindamycin IVPB q8 benjamin - Primaquine 26.3mg PO daily - Voriconazole 200 mg IVPB q12 Urine Cx positive for gram positive cocci - Asymptomatic - broad spectrum abx coverage as above Hx Positive AFB on Liver Bx -AFB x3 negative Hx of CHF - Cardio recs (Dr. Umaña) appreciated - ECHO: 45.4%; mild TR; moderate pHTN - Medications - Lopressor 12.5mg po q12 benjamin - Lasix 20mg IVP daily - Aspirin 81mg po daily - 1x dose Lasix 20mg IVP daily Hx of COPD - ABG wnl - Medications - Brovana 15mcg [id number] benjamin - Pulmicort 0.5mg [id number] benjamin - Atrovent 0.5mg q6h resp prn - Xopenex 0.63 mg IH q6h resp - Solumedrol 20mg IVP daily benjamin Hx of Heroin abuse - Methadone 100mg po daily benjamin Hx of anxiety - Klonopin 0.5mg po tid benjamin Hx of chronic back pain - Tramadol 50mg po q8h prn - Tylenol 650mg po q4h prn PPx, Diet, Disposition - GI ppx: Protonix 40mg PO daily - DVT ppx: Lovenox 40mg SC Daily - Diet: HHD - Disposition: Abx coverage continued for mold Asp spp, PCP, HCAP. AFB x 3 negative, off respiratory precautions. Continue to monitor. Pt seen, examined, assessment, plan discussed with Dr Moo Herrmann PGY1 <Yoel Cortés - Last Filed: 08/20/18 18:54> Objective - Vital Signs/Intake and Output Vital Signs (last 24 hours): Temp Pulse Resp BP Pulse Ox 98.7 F 117 H 16 117/62 95 08/20/18 14:00 08/20/18 14:00 08/20/18 14:00 08/20/18 14:00 08/20/18 14:00 - Medications Medications: Current Medications Acetaminophen (Tylenol 325mg Tab) 650 mg PO Q4H PRN PRN Reason: Fever >100.4 F Last Admin: 08/15/18 07:38 Dose: 650 mg Arformoterol Tartrate (Brovana) 15 mcg IH [id number] [facility] Last Admin: 08/20/18 07:05 Dose: 15 mcg Aspirin (Ecotrin) 81 mg PO DAILY [facility] Last Admin: 08/20/18 09:22 Dose: 81 mg Budesonide (Pulmicort Respules) 0.5 mg IH [id number] [facility] Last Admin: 08/20/18 07:05 Dose: 0.5 mg Clonazepam (Klonopin) 0.5 mg PO TID [facility]; Protocol Last Admin: 08/20/18 17:26 Dose: 0.5 mg Enoxaparin Sodium (Lovenox) 40 mg SC DAILY [facility]; Protocol Last Admin: 08/20/18 09:23 Dose: 40 mg Furosemide (Lasix) 20 mg IVP DAILY [facility] Last Admin: 08/20/18 09:24 Dose: 20 mg Clindamycin Phosphate 900 mg/ (Sodium Chloride) 106 mls @ 106 mls/hr IVPB Q8 [facility]; Protocol Stop: 08/21/18 14:01 Last Admin: 08/20/18 13:35 Dose: 106 mls/hr Meropenem (Merrem Iv 1 Gm Premix) 1 gm in 50 mls @ 100 mls/hr IVPB Q8 [facility]; Protocol Stop: 08/21/18 14:01 Last Admin: 08/20/18 13:35 Dose: 100 mls/hr Voriconazole 200 mg/ Sodium (Chloride) 100 mls @ 50 mls/hr IVPB Q12 [facility]; Protocol Stop: 08/24/18 13:15 Last Admin: 08/20/18 09:35 Dose: 50 mls/hr Ipratropium [place] (Atrovent) 0.5 mg IH [id number] PRN PRN Reason: Shortness of Breath Last Admin: 08/14/18 07:26 Dose: 0.5 mg Levalbuterol HCl (Xopenex) 0.63 mg IH [id number] PRN PRN Reason: Shortness of Breath Last Admin: 08/19/18 13:29 Dose: 0.63 mg Methadone HCl (Methadone) 100 mg PO DAILY [facility] Last Admin: 08/20/18 09:28 Dose: 100 mg Methylprednisolone (Solu-Medrol) 20 mg IVP DAILY [facility] Last Admin: 08/20/18 09:30 Dose: 20 mg Metoprolol Tartrate (Lopressor) 12.5 mg PO Q12 [facility] Last Admin: 08/20/18 09:23 Dose: 12.5 mg Pantoprazole Sodium (Protonix Ec Tab) 40 mg PO 0600 [facility] Last Admin: 08/20/18 06:07 Dose: 40 mg Primaquine Phosphate (Primaquine) 26.3 mg PO DAILY [facility]; Protocol Stop: 08/21/18 10:01 Last Admin: 08/20/18 09:30 Dose: 26.3 mg Tramadol HCl (Ultram) 50 mg PO Q8H PRN PRN Reason: Pain, moderate (4-7) Last Admin: 08/20/18 10:24 Dose: 50 mg - Labs Labs: 08/20/18 10:20 08/20/18 10:20 Attending/Attestation - Attestation I have personally seen and examined this patient.: Yes I have fully participated in the care of the patient.: Yes I have reviewed all pertinent clinical information, including history, physical exam and plan: Yes Notes (Text): 08/20/18 18:53 38 year old female with past medical history of HIV/AIDs, COPD, asthma, heroin abuse, CHF who was recently discharged from [facility] presented with shortness of breath. CT chest showed nodular opacities throughout bilateral lung asif including one nodule with probable cavitation, bilateral R>L consolidations and small bilateral pleural effusions. AFB x 3 have been negative. Patient is on iv antibiotics. ID and pulmonary are following. Unable to perform bronch few days prior due to equipment malfunction. Patient was counselled on medication compliance. Overall prognosis is poor secondary to noncompliance. Yoel Cortés MD Hospitalist.
--- NOTE | 2018-08-20 14:31 | PN ---
DATE: 08/20/2018 SUBJECTIVE: Patient is in bed, in no acute distress. PHYSICAL EXAMINATION: VITAL SIGNS: Temperature is 98, blood pressure is 110/70, respiratory rate of 18. HEENT: Unremarkable. NECK: Supple. LUNGS: Have decreased breath sounds. HEART: Normal S1, S2. ABDOMINAL: Soft. LABORATORY EXAMINATION: Reveals a white count of 8.3, hemoglobin of 8, platelets of 183. Coagulation is noted. BUN of 34, creatinine of 0.7. Urinalysis is noted. Serology reveals antigen Aspergillus is positive. Aspergillus index value is positive along with an elevated and positive 1, 3D Glucan test. 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 Overall prognosis is quite poor. The patient is to start on her human immunodeficiency virus medications on home as home therapy since these medications are not available in the hospital. Cheikh Chou MD
[2018-08-21] MEDS: Meropenem IV 1 gm in NS 1 GM/50 ML BAG IVPB SCH (05:43)
[2018-08-21] MEDS: Pantoprazole 40 mg EC Tab PO SCH (05:44)
[2018-08-21 07:51] LABS: BASO # 0.01 K/mm3 (0.0-2.0); BASO % 0.2 % (0.0-3.0); EOS # 0.1 (0.0-0.7); EOS % 1.6 % (1.5-5.0); GRAN # 4.15 (1.4-6.5); GRAN % 75.6 % (50.0-68.0); HEMOGLOBIN 7.5 g/dL (12.0-16.0); LYMPH # 0.8 (1.2-3.4); LYMPH % 14.8 % (22.0-35.0); MEAN CELL VOLUME 86.9 fl (80.0-105.0); MEAN CORPUSCULAR HEMOGLOBIN 25.9 pg (25.0-35.0); MEAN CORPUSCULAR HGB CONC 29.8 g/dl (31.0-37.0); MONO # 0.4 (0.1-0.6); MONO % 7.8 % (1.0-6.0); RBC 2.9 10^6/uL (3.5-6.1); RED CELL DISTRIBUTION WIDTH 17.8 % (11.5-14.5); WHITE BLOOD COUNT 5.5 10^3/uL (4.5-11.0)
[2018-08-21 08:32] LABS: ALB/GLOB RATIO 0.8 (1.1-1.8); ALT/SGPT 20 U/L (7-56); AST/SGOT 31 U/L (14-36); BLOOD UREA NITROGEN 44 mg/dL (7-21); GFR NON-AFRICAN AMERICAN > 60
[2018-08-21] MEDS: Arformoterol 15 mcg/2 ml Inh Sol IH SCH ×2 (08:49→21:28)
[2018-08-21] MEDS: Budesonide 0.5 mg/2 ml Inhal Susp UD IH SCH ×2 (08:49→21:29)
[2018-08-21] MEDS: MethylPREDNISolone 40 mg Vial IVP SCH (10:00)
[2018-08-21] MEDS: Primaquine 26.3 mg Tab PO SCH ×2 (10:00→19:24)
[2018-08-21] MEDS: Enoxaparin 40 mg Syringe SC SCH (10:05)
--- NOTE | 2018-08-21 15:55 | PN ---
DATE: 08/21/2018 SUBJECTIVE: Patient is in bed, in no acute distress, nontoxic. PHYSICAL EXAMINATION: VITAL SIGNS: Temperature is 98, blood pressure is 101/50, respiratory rate of 18, heart rate of 88. HEENT: Unremarkable. NECK: Supple. LUNGS: Have decreased breath sounds. ABDOMINAL: Soft, nontender. LABORATORY EXAMINATION: Reveals a white count of 5.5, hemoglobin of 7, platelets of 198. Chemistries are noted and reviewed. Urinalysis is noted. Toxicology is noted. Serology is reviewed and microbiology is noted. Identification of the mold is still pending. PLAN: Review of orders reveals patient is on clindamycin which requires renewal, 900 mg IV every 8 hours. Patient's meropenem will be discontinued. Patient is also on voriconazole and patient is on primaquine or should be on primaquine which was discontinued by her pharmacy. We will restart her primaquine at 26.3 mg p.o. daily. It is unclear if the patient received her dose today. Overall prognosis is quite poor. Discussed with Dr. Cortés about getting the patient HIV medication. Patient is supposed to start her HIV medication, Biktarvy. Cheikh Chou MD
[2018-08-21] MEDS: Ipratropium 0.02% Inhal Soln (0.5 mg/2.5 ml) UD IH PRN (21:29)
--- NOTE | 2018-08-21 21:34 | CP.PCM.PN ---
<Osvaldo Herrmann - Last Filed: 08/21/18 21:39> Subjective - Date & Time of Evaluation Date of Evaluation: 08/21/18 Time of Evaluation: 06:00 - Subjective Subjective: Pt seen and examined this morning. Pt reports "lung pain" has been improving Objective - Vital Signs/Intake and Output Vital Signs (last 24 hours): Temp Pulse Resp BP Pulse Ox 98.1 F 91 H 20 110/71 96 08/21/18 14:00 08/21/18 21:18 08/21/18 14:00 08/21/18 21:18 08/21/18 14:00 - Medications Medications: Current Medications Acetaminophen (Tylenol 325mg Tab) 650 mg PO Q4H PRN PRN Reason: Fever >100.4 F Last Admin: 08/21/18 02:32 Dose: 650 mg Arformoterol Tartrate (Brovana) 15 mcg IH [id number] [facility] Last Admin: 08/21/18 21:28 Dose: 15 mcg Aspirin (Ecotrin) 81 mg PO DAILY [facility] Last Admin: 08/21/18 10:05 Dose: 81 mg Budesonide (Pulmicort Respules) 0.5 mg IH [id number] [facility] Last Admin: 08/21/18 21:29 Dose: 0.5 mg Clonazepam (Klonopin) 0.5 mg PO TID [facility]JAMIN; Protocol Last Admin: 08/21/18 19:24 Dose: 0.5 mg Enoxaparin Sodium (Lovenox) 40 mg SC DAILY [facility]; Protocol Last Admin: 08/21/18 10:05 Dose: 40 mg Furosemide (Lasix) 20 mg IVP DAILY [facility] Last Admin: 08/21/18 11:40 Dose: Not Given Voriconazole 200 mg/ Sodium (Chloride) 100 mls @ 50 mls/hr IVPB Q12 [facility]; Protocol Stop: 08/24/18 13:15 Last Admin: 08/21/18 10:00 Dose: 50 mls/hr Clindamycin Phosphate 900 mg/ (Sodium Chloride) 106 mls @ 106 mls/hr IVPB Q8 S ; Protocol Stop: 09/11/18 14:01 Last Admin: 08/21/18 21:15 Dose: 106 mls/hr Ipratropium [place] (Atrovent) 0.5 mg IH [id number] PRN PRN Reason: Shortness of Breath Last Admin: 08/21/18 21:29 Dose: 0.5 mg Levalbuterol HCl (Xopenex) 0.63 mg IH [id number] PRN PRN Reason: Shortness of Breath Last Admin: 08/19/18 13:29 Dose: 0.63 mg Methadone HCl (Methadone) 100 mg PO DAILY [facility] Methylprednisolone (Solu-Medrol) 20 mg IVP DAILY [facility] Last Admin: 08/21/18 10:00 Dose: 20 mg Metoprolol Tartrate (Lopressor) 12.5 mg PO Q12 [facility] Last Admin: 08/21/18 21:18 Dose: 12.5 mg Pantoprazole Sodium (Protonix Ec Tab) 40 mg PO 0600 [facility] Last Admin: 08/21/18 05:44 Dose: 40 mg Primaquine Phosphate (Primaquine) 26.3 mg PO DAILY [facility]; Protocol Stop: 09/11/18 12:00 Last Admin: 08/21/18 19:24 Dose: 26.3 mg Tramadol HCl (Ultram) 50 mg PO Q8H PRN PRN Reason: Pain, moderate (4-7) Last Admin: 08/21/18 19:22 Dose: 50 mg - Labs Labs: 08/21/18 07:15 08/21/18 07:00 - Constitutional Appears: Non-toxic, No Acute Distress - Head Exam Head Exam: ATRAUMATIC, NORMAL INSPECTION, NORMOCEPHALIC - Eye Exam Eye Exam: EOMI - ENT Exam ENT Exam: Mucous Membranes Moist - Neck Exam Neck Exam: Normal Inspection - Respiratory Exam Respiratory Exam: Clear to Ausculation Bilateral, NORMAL BREATHING PATTERN - Cardiovascular Exam Cardiovascular Exam: RRR, +S1, +S2. absent: Diastolic murmur, Murmur - GI/Abdominal Exam GI & Abdominal Exam: Soft, Normal Bowel Sounds - Extremities Exam Extremities Exam: Full ROM. absent: Pedal Edema - Back Exam Back Exam: Full ROM - Neurological Exam Neurological Exam: Alert, Awake, Oriented x3 - Psychiatric Exam Psychiatric exam: Normal Affect - Skin Skin Exam: Dry, Intact, Warm Assessment and Plan - Assessment and Plan (Free Text) Assessment: 38 yo F with PMHx of HIV/AIDs with CD4 <20 (03/11/18), PCP, EBV, CMV, HSV, COPD, asthma, heroin abuse, CHF with LVEF 45% (10/18), mycobacterium confirmed by liver biopsy, presenting with SOB/chills/wheezing/dry cough. Recently discharged from [facility] [place] for similar symptoms and treated for PNA. Chest CT shows multiple nodules throughout b/l lung asif with one possible cavitary lesion. Malignant neoplasm vs infection (TB or fungal infection) vs inflammatory nodules; Bilateral R>L consolidations and small bilateral pleural effusions; calcified right hilar and mediastinal lymph nodes. Pt is on airborne isolation pending AFBs to rule out TB. On broad spectrum antibiotics and antifungal. Overall prognosis poor secondary to noncompliance. Plan: Multifocal pneumonia 2/2 opportunistic infection - patient is afebrile, no leukocytosis - CT chest w/o contrast (08/12): innumerable nodular opacities throughout bilateral lung asif as delineated above including 1 nodule with probable cavi tations. - - -- Bilateral R>L consolidations and small bilateral pleural effusions; calcified right hilar and mediastinal lymph nodes - serum Aspergillus and B-(1,3)-D-glucan positive positive, patient currently covered for aspergillus and PCP - ID (Dr. Chou) following - continue with clinda 900 mg IV q8, primaquine 26.3 mg PO daily, voriconazole 200 mg IVP q12 - d/cd doxycycline, pt received for 6 days - d/cd merepenem pt received for 8 days - continue with solumedrol - Pulm (Dr. Haddad) following - c/w supp O2 as needed, goal sat 90%, duonebs PRN HIV/AIDS - pt with opportunistic infectious pneumonia - pt to start Biktarvy, per ID - ID following Urine Cx positive for gram positive cocci - Asymptomatic - broad spectrum abx coverage as above Hx Positive AFB on Liver Bx - LFTs wnl - AFB x3 negative Hx of CHF - ECHO: 45.4%; mild TR; moderate pHTN - continue Lopressor 12.5mg po q12 benjamin - continue Lasix 20mg IVP daily - continue Aspirin 81mg po daily - Cardio (Dr. Umaña); cardiovascular disease stable, signed off - heart healthy diet Hx of COPD - ABG wnl - continue Brovana 15mcg [id number] benjamin - continue Pulmicort 0.5mg [id number] benjamin - continue Solumedrol 20mg IVP daily benjamin - continue Atrovent 0.5mg q6h resp prn - continue Xopenex 0.63 mg IH q6h resp prn Hx of Heroin abuse - Methadone 100mg po daily benjamin Hx of anxiety - Klonopin 0.5mg po tid benjamin Hx of chronic back pain - Tramadol 50mg po q8h prn - Tylenol 650mg po q4h prn Ppx - GI ppx: Protonix 40mg PO daily - DVT ppx: Lovenox 40mg SC Daily Disposition - Abx coverage continued for Aspergillus, PCP, HCAP. PICC in place. AFB x 3 negative, off respiratory precautions. Pt to start Biktarvy HIV medication. Prognosis poor secondary to noncompliance Pt seen, examined, assessment and plan discussed with Dr Moo Herrmann PGY1 <Yoel Cortés - Last Filed: 08/22/18 11:28> Objective - Vital Signs/Intake and Output Vital Signs (last 24 hours): Temp Pulse Resp BP Pulse Ox 97.6 F 98 H 18 100/72 95 08/22/18 08:28 08/22/18 08:28 08/22/18 08:28 08/22/18 09:29 08/22/18 08:28 Intake and Output: 08/22/18 08/22/18 06:59 18:59 Intake Total 1080 Balance 1080 - Medications Medications: Current Medications Acetaminophen (Tylenol 325mg Tab) 650 mg PO Q4H PRN PRN Reason: Fever >100.4 F Last Admin: 08/21/18 23:02 Dose: 650 mg Arformoterol Tartrate (Brovana) 15 mcg IH [id number] [facility] Last Admin: 08/22/18 07:43 Dose: 15 mcg Aspirin (Ecotrin) 81 mg PO DAILY [facility] Last Admin: 08/22/18 09:30 Dose: 81 mg Budesonide (Pulmicort Respules) 0.5 mg IH [id number] [facility] Last Admin: 08/22/18 07:43 Dose: 0.5 mg Clonazepam (Klonopin) 0.5 mg PO TID [facility]IN; Protocol Last Admin: 08/22/18 09:31 Dose: 0.5 mg Enoxaparin Sodium (Lovenox) 40 mg SC DAILY [facility]; Protocol Last Admin: 08/22/18 09:29 Dose: 40 mg Furosemide (Lasix) 20 mg IVP DAILY [facility] Last Admin: 08/22/18 09:29 Dose: 20 mg Voriconazole 200 mg/ Sodium (Chloride) 100 mls @ 50 mls/hr IVPB Q12 [facility]; Protocol Stop: 08/24/18 13:15 Last Admin: 08/21/18 22:55 Dose: 50 mls/hr Clindamycin Phosphate 900 mg/ (Sodium Chloride) 106 mls @ 106 mls/hr IVPB Q8 [facility]IN; Protocol Stop: 09/11/18 14:01 Last Admin: 08/22/18 05:40 Dose: 106 mls/hr Ipratropium [place] (Atrovent) 0.5 mg IH [id number] PRN PRN Reason: Shortness of Breath Last Admin: 08/21/18 21:29 Dose: 0.5 mg Levalbuterol HCl (Xopenex) 0.63 mg IH [id number] PRN PRN Reason: Shortness of Breath Last Admin: 08/19/18 13:29 Dose: 0.63 mg Methadone HCl (Methadone) 100 mg PO DAILY [facility] Last Admin: 08/22/18 09:25 Dose: 100 mg Methylprednisolone (Solu-Medrol) 20 mg IVP DAILY [facility] Last Admin: 08/22/18 09:26 Dose: 20 mg Metoprolol Tartrate (Lopressor) 12.5 mg PO Q12 [facility] Last Admin: 08/22/18 09:28 Dose: 12.5 mg Pantoprazole Sodium (Protonix Ec Tab) 40 mg PO 0600 [facility] Last Admin: 08/22/18 05:40 Dose: 40 mg Primaquine Phosphate (Primaquine) 26.3 mg PO DAILY [facility]; Protocol Stop: 09/11/18 12:00 Last Admin: 08/22/18 09:29 Dose: 26.3 mg Tramadol HCl (Ultram) 50 mg PO Q8H PRN PRN Reason: Pain, moderate (4-7) Last Admin: 08/22/18 09:27 Dose: 50 mg - Labs Labs: 08/22/18 07:20 08/22/18 07:20 Attending/Attestation - Attestation I have personally seen and examined this patient.: Yes I have fully participated in the care of the patient.: Yes I have reviewed all pertinent clinical information, including history, physical exam and plan: Yes
[2018-08-22] MEDS: Pantoprazole 40 mg EC Tab PO SCH (05:40)
[2018-08-22 07:39] LABS: BASO # 0.02 K/mm3 (0.0-2.0); BASO % 0.3 % (0.0-3.0); EOS % 0.3 % (1.5-5.0); GRAN # 6.02 (1.4-6.5); GRAN % 79.8 % (50.0-68.0); HEMOGLOBIN 7.1 g/dL (12.0-16.0); LYMPH # 0.9 (1.2-3.4); LYMPH % 12.3 % (22.0-35.0); MEAN CELL VOLUME 87.6 fl (80.0-105.0); MEAN CORPUSCULAR HEMOGLOBIN 25.8 pg (25.0-35.0); MEAN CORPUSCULAR HGB CONC 29.5 g/dl (31.0-37.0); MEAN PLATELET VOLUME 9.8 fl (7.0-11.0); MONO # 0.6 (0.1-0.6); MONO % 7.3 % (1.0-6.0); RBC 2.75 10^6/uL (3.5-6.1); WHITE BLOOD COUNT 7.5 10^3/uL (4.5-11.0)
[2018-08-22] MEDS: Arformoterol 15 mcg/2 ml Inh Sol IH SCH ×2 (07:43→21:25)
[2018-08-22] MEDS: Budesonide 0.5 mg/2 ml Inhal Susp UD IH SCH ×2 (07:43→21:25)
[2018-08-22 08:39] LABS: ALB/GLOB RATIO 0.8 (1.1-1.8); ALBUMIN 3.1 g/dL (3.0-4.8); ALT/SGPT 15 U/L (7-56); AST/SGOT 44 U/L (14-36); BLOOD UREA NITROGEN 45 mg/dL (7-21); CALCIUM 9.3 mg/dL (8.4-10.5); GFR NON-AFRICAN AMERICAN > 60
[2018-08-22] MEDS: MethylPREDNISolone 40 mg Vial IVP SCH (09:26)
[2018-08-22] MEDS: Primaquine 26.3 mg Tab PO SCH (09:29)
[2018-08-22] MEDS: Enoxaparin 40 mg Syringe SC SCH (09:29)
--- NOTE | 2018-08-22 15:54 | PN ---
DATE: 08/22/2018 SUBJECTIVE: The patient is seen in bed earlier this morning, in no acute distress. Appears to be comfortable. PHYSICAL EXAMINATION: VITAL SIGNS: Temperature is 98, blood pressure is 101/70, respiratory rate 16. HEENT: Unremarkable. NECK: Supple. LUNGS: Have decreased breath sounds. HEART: Normal S1 and S2. ABDOMEN : Soft and nontender. LABORATORY DATA: Reviewed. The patient's white count is 7.5. Chemistries are noted. Serology is noted. 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 No cultures were sent of the liver and thus far there is no acid-fast bacillus in the lungs. Currently on clindamycin, primaquine, voriconazole, and the patient appears to be improving and the patient is on Solu-Medrol. The meropenem is discontinued. Cheikh Chou MD
--- NOTE | 2018-08-22 15:58 | CP.PCM.PN ---
<Jose Altamirano - Last Filed: 08/22/18 16:04> Subjective - Date & Time of Evaluation Date of Evaluation: 08/22/18 Time of Evaluation: 09:00 - Subjective Subjective: PGY-1 Medicine Progress Note for Dr. Bhatti Patient seen and examined sitting at bedside this AM, in no acute distress. No acute events reported overnight. Shortness of breath, cough improving. No fevers/chills, chest pain, palpitations, sob, n/v/d/c, dysuria, or changes in stool. Objective - Vital Signs/Intake and Output Vital Signs (last 24 hours): Temp Pulse Resp BP Pulse Ox 97.6 F 98 H 18 100/72 95 08/22/18 08:28 08/22/18 08:28 08/22/18 08:28 08/22/18 09:29 08/22/18 08:28 Intake and Output: 08/22/18 08/22/18 06:59 18:59 Intake Total 1080 Balance 1080 - Medications Medications: Current Medications Acetaminophen (Tylenol 325mg Tab) 650 mg PO Q4H PRN PRN Reason: Fever >100.4 F Last Admin: 08/21/18 23:02 Dose: 650 mg Arformoterol Tartrate (Brovana) 15 mcg IH [id number] [facility] Last Admin: 08/22/18 07:43 Dose: 15 mcg Aspirin (Ecotrin) 81 mg PO DAILY [facility] Last Admin: 08/22/18 09:30 Dose: 81 mg Budesonide (Pulmicort Respules) 0.5 mg IH [id number] [facility]IN Last Admin: 08/22/18 07:43 Dose: 0.5 mg Clonazepam (Klonopin) 0.5 mg PO TID [facility]; Protocol Last Admin: 08/22/18 15:42 Dose: 0.5 mg Enoxaparin Sodium (Lovenox) 40 mg SC DAILY [facility]; Protocol Last Admin: 08/22/18 09:29 Dose: 40 mg Furosemide (Lasix) 20 mg IVP DAILY [facility] Last Admin: 08/22/18 09:29 Dose: 20 mg Voriconazole 200 mg/ Sodium (Chloride) 100 mls @ 50 mls/hr IVPB Q12 [facility]; Protocol Stop: 08/24/18 13:15 Last Admin: 08/22/18 15:38 Dose: 50 mls/hr Clindamycin Phosphate 900 mg/ (Sodium Chloride) 106 mls @ 106 mls/hr IVPB Q8 [facility]IN; Protocol Stop: 09/11/18 14:01 Last Admin: 08/22/18 15:33 Dose: 106 mls/hr Ipratropium [place] (Atrovent) 0.5 mg IH [id number] PRN PRN Reason: Shortness of Breath Last Admin: 08/21/18 21:29 Dose: 0.5 mg Levalbuterol HCl (Xopenex) 0.63 mg IH [id number] PRN PRN Reason: Shortness of Breath Last Admin: 08/19/18 13:29 Dose: 0.63 mg Methadone HCl (Methadone) 100 mg PO DAILY [facility] Last Admin: 08/22/18 09:25 Dose: 100 mg Methylprednisolone (Solu-Medrol) 20 mg IVP DAILY [facility] Last Admin: 08/22/18 09:26 Dose: 20 mg Metoprolol Tartrate (Lopressor) 12.5 mg PO Q12 [facility] Last Admin: 08/22/18 09:28 Dose: 12.5 mg Pantoprazole Sodium (Protonix Ec Tab) 40 mg PO 0600 [facility] Last Admin: 08/22/18 05:40 Dose: 40 mg Primaquine Phosphate (Primaquine) 26.3 mg PO DAILY [facility]; Protocol Stop: 09/11/18 12:00 Last Admin: 08/22/18 09:29 Dose: 26.3 mg Tramadol HCl (Ultram) 50 mg PO Q8H PRN PRN Reason: Pain, moderate (4-7) Last Admin: 08/22/18 09:27 Dose: 50 mg - Labs Labs: 08/22/18 07:20 08/22/18 07:20 - Constitutional Appears: Non-toxic, No Acute Distress, Chronically Ill - Head Exam Head Exam: ATRAUMATIC, NORMAL INSPECTION, NORMOCEPHALIC - Eye Exam Eye Exam: EOMI, Normal appearance, PERRL Pupil Exam: NORMAL ACCOMODATION - ENT Exam ENT Exam: Mucous Membranes Moist, Normal Exam - Neck Exam Neck Exam: Full ROM, Normal Inspection, Tenderness - Respiratory Exam Respiratory Exam: Clear to Ausculation Bilateral, NORMAL BREATHING PATTERN. absent: Rales, Wheezes, Respiratory Distress, Stridor - Cardiovascular Exam Cardiovascular Exam: REGULAR RHYTHM, +S1, +S2 - GI/Abdominal Exam GI & Abdominal Exam: Soft, Normal Bowel Sounds. 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 Recently discharged from [facility] [place] for similar symptoms and treated for PNA. Chest CT shows multiple nodules throughout b/l lung asif with one possible cavitary lesion. Malignant neoplasm vs infection (TB or fungal infection) vs inflammatory nodules; Bilateral R>L consolidations and small bilateral pleural effusions; calcified right hilar and mediastinal lymph nodes. Pt is on airborne isolation pending AFBs to rule out TB. On broad spectrum antibiotics and antifungal. Over all prognosis poor secondary to noncompliance. Plan: Multifocal pneumonia 2/2 opportunistic infection --patient is afebrile, no leukocytosis noted --Cryptococcus Ag screen negative --legionella negative --AFB x 3 negative --serum Aspergillus and B-(1,3)-D-glucan positive positive, patient currently covered for aspergillus and PCP --ID recs (Dr. Chou) appreciated - d/cd doxycycline, pt received for 6 days - d/cd merepenem pt received for 8 days - continue with clinda 900 mg IV q8, primaquine 26.3 mg PO daily, voriconazole 200 mg IVP q12 - continue with solumedrol --Pulm recs (Dr. Haddad) appreciated -CXR (08/12): with b/l lower lobe consolidations -CT chest w/o contrast (08/12): innumerable nodular opacities throughout bilateral lung asif as delineated above including 1 nodule with probable cavitations. Malignant neoplasm vs Infection (TB or fungal infection) vs inflammatory nodules; Bilateral R>L consolidations and small bilateral pleural effusions; calcified right hilar and mediastinal lymph nodes -c/w supp O2 as needed, goal sat 90%, duonebs PRN, IS -ABx as per ID, covering for HCAP, MRSA --Medications -Clindamycin IVPB q8 benjamin -Primaquine 26.3mg PO daily -Voriconazole 200 mg IVPB q12 HIV/AIDS - pt with opportunistic infectious pneumonia - pt to start Biktarvy, per ID -reached out to pharmacy, not currently covered -to f/u with ID for further recs re: change in meds Urine Cx positive for gram positive cocci - Asymptomatic - broad spectrum abx coverage as above Hx Positive AFB on Liver Bx - LFTs wnl - AFB x3 negative Hx of CHF - ECHO: 45.4%; mild TR; moderate pHTN - continue Lopressor 12.5mg po q12 benjamin - continue Lasix 20mg IVP daily - continue Aspirin 81mg po daily - Cardio (Dr. Umaña); cardiovascular disease stable, signed off - heart healthy diet Hx of COPD - ABG wnl - continue Brovana 15mcg [id number] benjamin - continue Pulmicort 0.5mg [id number] benjamin - continue Solumedrol 20mg IVP daily benjamin - continue Atrovent 0.5mg q6h resp prn - continue Xopenex 0.63 mg IH q6h resp prn Hx of Heroin abuse - Methadone 100mg po daily benjamin Hx of anxiety - Klonopin 0.5mg po tid benjamin Hx of chronic back pain - Tramadol 50mg po q8h prn - Tylenol 650mg po q4h prn Ppx, Diet, Disposition - GI ppx: Protonix 40mg PO daily - DVT ppx: Lovenox 40mg SC Daily - Dispo: Abx coverage continued for Aspergillus, PCP, HCAP. PICC in place. AFB x 3 negative, off respiratory precautions. Pt to start Biktarvy HIV medication, per ID recs. No longer covered by insurance however. To f/u with ID about possible changes in meds. Case discussed with Dr. Davy Altamirano DO, PGY-1 <Cara Bhatti - Last Filed: 08/24/18 08:03> Objective - Vital Signs/Intake and Output Vital Signs (last 24 hours): Temp Pulse Resp BP Pulse Ox 98.2 F 91 H 18 115/78 93 L 08/23/18 14:00 08/23/18 14:00 08/23/18 14:00 08/23/18 14:00 08/23/18 14:00 - Labs Labs: 08/23/18 10:30 08/23/18 10:30 Attending/Attestation - Attestation I have personally seen and examined this patient.: Yes I have fully participated in the care of the patient.: Yes I have reviewed all pertinent clinical information, including history, physical exam and plan: Yes Notes (Text): 08/24/18 07:58 Patient was seen and examined with medical office assistant instructor. 38 year old female with past medical history of HIV/AIDs, COPD, asthma, heroin abuse, CHF who was recently discharged from [facility] [place] presented with acute on chronic Hypoxic Resp Failure. CT chest showed nodular opacities throughout bilateral lung asif including one nodule with probable cavitation, bilateral R>L consolidations and small bilateral pleural effusions. AFB x 3 were negative and Respiratory isolation has been discontinued. serum Aspergillus and B-(1,3)-D-glucan positive positive, patient currently covered for aspergillus and PJP Pneumonia (clinda 900 mg IV q8, primaquine 26.3 mg PO daily, voriconazole 200 mg IVP q12)as per ID. Patient is afebrile, hypoxia is improved, she is ambulatory and is feeling at her base line. Patient was counselled on medication compliance. Overall prognosis is poor secondary to noncompliance. 08/24/18 08:00 08/24/18 08:02
[2018-08-23] MEDS: Pantoprazole 40 mg EC Tab PO SCH (06:17)
[2018-08-23] MEDS: Arformoterol 15 mcg/2 ml Inh Sol IH SCH (07:29)
[2018-08-23] MEDS: Budesonide 0.5 mg/2 ml Inhal Susp UD IH SCH (07:29)
[2018-08-23 08:15] VITALS: RESP 18
[2018-08-23] MEDS: Enoxaparin 40 mg Syringe SC SCH (09:59)
[2018-08-23] MEDS: Primaquine 26.3 mg Tab PO SCH (10:00)
[2018-08-23] MEDS: MethylPREDNISolone 40 mg Vial IVP SCH (10:01)
[2018-08-23 10:40] LABS: BASO # 0.03 K/mm3 (0.0-2.0); BASO % 0.3 % (0.0-3.0); EOS # 0.1 (0.0-0.7); EOS % 1.2 % (1.5-5.0); GRAN # 7.14 (1.4-6.5); GRAN % 78.3 % (50.0-68.0); HEMOGLOBIN 7.4 g/dL (12.0-16.0); LYMPH # 1.1 (1.2-3.4); LYMPH % 11.6 % (22.0-35.0); MEAN CELL VOLUME 89.3 fl (80.0-105.0); MEAN CORPUSCULAR HEMOGLOBIN 26.3 pg (25.0-35.0); MEAN CORPUSCULAR HGB CONC 29.5 g/dl (31.0-37.0); MEAN PLATELET VOLUME 9.7 fl (7.0-11.0); MONO # 0.8 (0.1-0.6); MONO % 8.6 % (1.0-6.0); RBC 2.81 10^6/uL (3.5-6.1); RED CELL DISTRIBUTION WIDTH 18.2 % (11.5-14.5); WHITE BLOOD COUNT 9.1 10^3/uL (4.5-11.0)
[2018-08-23 11:27] LABS: ALB/GLOB RATIO 0.9 (1.1-1.8); ALBUMIN 3.2 g/dL (3.0-4.8); ALT/SGPT 22 U/L (7-56); AST/SGOT 40 U/L (14-36); BLOOD UREA NITROGEN 41 mg/dL (7-21); CALCIUM 9.6 mg/dL (8.4-10.5); GFR NON-AFRICAN AMERICAN > 60
--- NOTE | 2018-08-23 16:22 | PN ---
DATE: 08/23/2018 SUBJECTIVE: The patient is in bed, in no acute distress. PHYSICAL EXAMINATION: VITAL SIGNS: On exam, temperature is 98, blood pressure is 110/70, respiratory rate of 18. HEENT: Examination of HEENT is unremarkable. NECK: Supple. LUNGS: Have decreased breath sounds. HEART: Normal S1, S2. ABDOMEN: Soft. LABORATORY DATA: Laboratory examination reveals a white count of 9.1, hemoglobin 7, platelets of 273. Chemistries reveals a BUN of 41, creatinine of 0.8. Urinalysis is noted and serology is noted. ASSESSMENT AND PLAN: A 38-year-old female with end-stage acquired immune deficiency syndrome, multiple episodes of Pneumocystis carinii pneumonia, history of intravenous drug abuse and history of sepsis, who was admitted on this admission with sepsis with Pneumocystis carinii pneumonia, also known as Pneumocystis Jiroveci pneumonia and Aspergillus pneumonia. 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 Unfortunately, no liver biopsy cultures were done at that time. Currently, on clindamycin, primaquine and voriconazole. May discontinue the clindamycin and primaquine and use Mepron 750 p.o. b.i.d., would complete at least 21 days and then after that continue the Mepron for Pneumocystis carinii pneumonia prophylaxis. The patient should be on human immunodeficiency virus medications, which are in the process of getting and getting the patient to follow up. The patient is also on voriconazole. Waiting for the identification of the mold in the sputum, most likely Aspergillus. Overall, the patient's prognosis quite poor. She has been notoriously noncompliant with her medication over the years. We will follow with you. Cheikh Chou MD
[2018-08-23] MEDS ORDERED: Atovaquone 750 mg/5 ml Susp UD PO SCH (18:00)
[2018-08-23 18:16] VITALS: BP 115/78; PULSE 91; TEMP 98.2; O2SAT 93
--- NOTE | 2018-08-23 20:58 | CP.PCM.DIS ---
<Jose Altamirano - Last Filed: 08/24/18 02:44> Provider - Provider Date of Admission: 08/12/18 04:10 Attending physician: Cara Bhatti MD Primary care physician: Macario Carter MD Time Spent in preparation of Discharge (in minutes): 40 Hospital Course - Lab Results Lab Results: Micro Results 08/14/18 10:00 Other: Please Indicate Mycobacterial Culture - Preliminary 08/17/18 09:50 Other: Please Indicate Mycobacterial Culture - Preliminary 08/16/18 04:45 Other: Please Indicate Mycobacterial Culture - Preliminary 08/12/18 02:30 Blood-Venous Blood Culture - Final NO GROWTH AFTER 5 DAYS 08/12/18 02:30 Blood-Venous Gram Stain - Final TEST NOT PERFORMED 08/12/18 01:59 Blood-Venous Blood Culture - Final NO GROWTH AFTER 5 DAYS 08/12/18 01:59 Blood-Venous Gram Stain - Final TEST NOT PERFORMED 08/13/18 14:30 Sputum Gram Stain - Final 08/13/18 14:30 Sputum Sputum Culture - Preliminary 08/12/18 05:13 Urine,Catheterized Urine Culture - Final Enterococcus Faecium Enterococcus Faecalis Most Recent Lab Values WBC 9.1 10^3/uL (4.5-11.0) 08/23/18 10:30 RBC 2.81 10^6/uL (3.5-6.1) L 08/23/18 10:30 Hgb 7.4 g/dL (12.0-16.0) L 08/23/18 10:30 Hct 25.1 % (36.0-48.0) L 08/23/18 10:30 MCV 89.3 fl (80.0-105.0) 08/23/18 10:30 MCH 26.3 pg (25.0-35.0) 08/23/18 10:30 MCHC 29.5 g/dl (31.0-37.0) L 08/23/18 10:30 RDW 18.2 % (11.5-14.5) H 08/23/18 10:30 Plt Count 273 10^3/uL (120.0-450.0) 08/23/18 10:30 MPV 9.7 fl (7.0-11.0) 08/23/18 10:30 Gran % 78.3 % (50.0-68.0) H 08/23/18 10:30 Lymph % (Auto) 11.6 % (22.0-35.0) L 08/23/18 10:30 [place] % (Auto) 8.6 % (1.0-6.0) H 08/23/18 10:30 Eos % (Auto) 1.2 % (1.5-5.0) L 08/23/18 10:30 Baso % (Auto) 0.3 % (0.0-3.0) 08/23/18 10:30 Gran # 7.14 (1.4-6.5) H 08/23/18 10:30 Lymph # (Auto) 1.1 (1.2-3.4) L 08/23/18 10:30 [place] # (Auto) 0.8 (0.1-0.6) H 08/23/18 10:30 Eos # (Auto) 0.1 (0.0-0.7) 08/23/18 10:30 Baso # (Auto) 0.03 K/mm3 (0.0-2.0) 08/23/18 10:30 Neutrophils % (Manual) 85 % (50.0-70.0) H 08/12/18 01:59 Band Neutrophils % 5 % (0-2) H 08/12/18 01:59 Lymphocytes % (Manual) 5 % (22.0-35.0) L 08/12/18 01:59 Atypical Lymphs % 2 % (0.0-0.0) H 08/12/18 01:59 Monocytes % (Manual) 1 % (1.0-6.0) 08/12/18 01:59 Myelocytes % 2 % 08/12/18 01:59 Platelet Evaluation Normal (NORMAL) 08/12/18 01:59 Poikilocytosis (manual Slight 08/12/18 01:59 Anisocytosis (manual) Slight 08/12/18 01:59 Ovalocytes Slight 08/12/18 01:59 pCO2 42 mm/Hg (35-45) 08/12/18 11:12 pO2 76.0 mm/Hg (80-100) L 08/12/18 11:12 HCO3 29.2 mmol/L (21-28) H 08/12/18 11:12 ABG pH 7.45 (7.35-7.45) 08/12/18 11:12 ABG Total CO2 30.5 mmol.L (22-28) H 08/12/18 11:12 ABG O2 Saturation 96.9 % (95-98) 08/12/18 11:12 ABG O2 Content 11.0 ML/dl (15-23) L 08/12/18 11:12 ABG Base Excess 4.8 mmol/L (-2.0-3.0) H 08/12/18 11:12 ABG Hemoglobin 8.3 g/dL (11.7-17.4) L 08/12/18 11:12 ABG Carboxyhemoglobin 1.5 % (0.5-1.5) 08/12/18 11:12 POC ABG HHb (Measured) 3.0 % (0-5) 08/12/18 11:12 ABG Methemoglobin 1.8 % (0.0-3.0) 08/12/18 11:12 ABG O2 Capacity 11.4 mL/dl (16-24) L 08/12/18 11:12 VBG pH 7.26 (7.32-7.43) L 08/12/18 02:34 VBG pCO2 69.0 (40-60) H* 08/12/18 02:34 VBG HCO3 31.0 mmol/l (21-28) H 08/12/18 02:34 VBG Total CO2 33.1 mmol.L (22-28) H 08/12/18 02:34 VBG O2 Sat (Calc) 82.2 % (40-65) H 08/12/18 02:34 VBG Base Excess 1.9 mmol/L (0.0-2.0) 08/12/18 02:34 VBG Potassium 4.4 mmol/L (3.6-5.2) 08/12/18 02:34 Hgb O2 Saturation 93.7 % (95.0-98.0) L 08/12/18 11:12 Sodium 140.0 mmol/L (132-148) 08/12/18 02:34 Chloride 111.0 mmol/L (98-107) H 08/12/18 02:34 Glucose 92 mg/dl (65-105) 08/12/18 02:34 Lactate 0.8 mmol/L (0.7-2.1) 08/12/18 02:34 FiO2 50.0 % 08/12/18 11:12 Sodium 139 mmol/L (132-148) 08/23/18 10:30 Potassium 4.9 mmol/L (3.6-5.0) 08/23/18 10:30 Chloride 101 mmol/L (98-107) 08/23/18 10:30 Carbon Dioxide 31 mmol/L (21-33) 08/23/18 10:30 Anion Gap 12 (10-20) 08/23/18 10:30 BUN 41 mg/dL (7-21) H 08/23/18 10:30 Creatinine 0.8 mg/dl (0.7-1.2) 08/23/18 10:30 Est GFR ( Amer) > 60 08/23/18 10:30 Est GFR (Non-Af Amer) > 60 08/23/18 10:30 Random Glucose 98 mg/dL (70-110) 08/23/18 10:30 Lactic Acid 1.4 mmol/L (0.7-2.1) 08/12/18 09:30 Calcium 9.6 mg/dL (8.4-10.5) 08/23/18 10:30 Phosphorus 3.6 mg/dL (2.5-4.5) 08/23/18 10:30 Magnesium 2.1 mg/dL (1.7-2.2) 08/23/18 10:30 Total Bilirubin 0.3 mg/dL (0.2-1.3) 08/23/18 10:30 AST 40 U/L (14-36) H 08/23/18 10:30 ALT 22 U/L (7-56) 08/23/18 10:30 Alkaline Phosphatase 57 U/L (38-126) 08/23/18 10:30 Lactate Dehydrogenase 1438 U/L (333-699) H 08/12/18 01:59 Total Creatine Kinase 30 U/L (35-230) L 08/12/18 01:59 Troponin I 0.06 ng/mL D 08/12/18 16:11 NT-Pro-B Natriuret Pep 10710 pg/mL (0-450) H 08/12/18 01:59 Total Protein 6.8 g/dL (5.8-8.3) 08/23/18 10:30 Albumin 3.2 g/dL (3.0-4.8) 08/23/18 10:30 Globulin 3.6 gm/dL 08/23/18 10:30 Albumin/Globulin Ratio 0.9 (1.1-1.8) L 08/23/18 10:30 Procalcitonin 0.63 NG/ML (0.19-0.49) H 08/12/18 09:30 TSH 3rd Generation 0.82 mIU/mL (0.46-4.68) 08/13/18 07:00 Beta HCG, Quant < 2.39 mIU/mL (0-6.15) 08/12/18 09:30 Venous Blood Potassium 4.4 mmol/L (3.6-5.2) 08/12/18 02:34 Urine Color Yellow (YELLOW) 08/12/18 05:13 Urine Appearance Clear (CLEAR) 08/12/18 05:13 Urine pH 6.0 (4.7-8.0) 08/12/18 05:13 Ur Specific [place] 1.015 (1.005-1.035) 08/12/18 05:13 Urine Protein 100 mg/dL (<30 mg/dL) H 08/12/18 05:13 Urine Glucose (UA) Negative mg/dL (NEGATIVE) 08/12/18 05:13 Urine Ketones Negative mg/dL (NEGATIVE) 08/12/18 05:13 Urine Blood Trace-lysed (NEGATIVE) H 08/12/18 05:13 Urine Nitrate Negative (NEGATIVE) 08/12/18 05:13 Urine Bilirubin Negative (NEGATIVE) 08/12/18 05:13 Urine Urobilinogen 0.2 E.U./dL (<1 E.U./dL) 08/12/18 05:13 Ur Leukocyte Esterase Negative Juliano/uL (NEGATIVE) 08/12/18 05:13 Urine RBC 0 - 2 /hpf (0-2) 08/12/18 05:13 Urine WBC 1 - 3 /hpf (0-6) 08/12/18 05:13 Ur Epithelial Cells 3 - 4 /hpf (0-5) 08/12/18 05:13 Amorphous Sediment Rare 08/12/18 05:13 Urine Bacteria Occ (NEG) 08/12/18 05:13 Hyaline Casts 0 - 2 /hpf 08/12/18 05:13 Urine HCG, Qual Negative (NEGATIVE) 08/12/18 05:13 Urine Opiates Screen Negative (NEGATIVE) 08/12/18 05:13 Urine Methadone Screen Positive (NEGATIVE) H 08/12/18 05:13 Ur Barbiturates Screen Negative (NEGATIVE) 08/12/18 05:13 Ur Phencyclidine Scrn Negative (NEGATIVE) 08/12/18 05:13 Ur Amphetamines Screen Negative (NEGATIVE) 08/12/18 05:13 U Benzodiazepines Scrn Negative (NEGATIVE) 08/12/18 05:13 U Oth Cocaine Metabols Negative (NEGATIVE) 08/12/18 05:13 U Cannabinoids Screen Negative (NEGATIVE) 08/12/18 05:13 Cryptococcus Ag Screen Not detected (Not Detected) 08/12/18 09:30 Ur L.pneumophila Ag Negative (NEGATIVE) 08/14/18 17:45 Aspergillus Antigen Detected (Not Detected) H 08/13/18 12:00 Aspergillus Index Value 0.99 (<0.50) H 08/13/18 12:00 Beta-(1,3)-D-Glucan >500 pg/mL (<60) H 08/12/18 09:30 B-(1,3)-D-Glucan Intrp Positive H 08/12/18 09:30 - Hospital Course Hospital Course: Pt is a 38 year old female with past medical history of HIV/AIDs with CD4 <20 (03/11/18), PCP, EBV, CMV, HSV, COPD, asthma, heroin abuse, CHF with LVEF 35% (04/11), 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 Pt also reported weakness and fatigue. Pt was discharged 2 days prior from [facility] for similar symptoms and treated for PNA. Pt has a history of medication noncompliance and many of the prescriptions she brought with her on admission were . On admission, patient met sepsis criteria and was started on IV fluids, panculture was sent and patient was started on broad spectrum antibiotics to cover for HCAP, MRSA and PCP. CT chest showed innumerable nodules throughout b/l lung asif with one possible cavitary lesion concerning for malignancy vs TB vs fungal vs inflammatory nodules and calcified right hilar and mediastinal lymph nodes. Infectious disease and pulmonology was consulted. Patient was put on airborne isolation to rule out TB. Three sputum cultures were negative for AFB and patient was subsequently taken off isolation. Blood cultures and sputum cultures were negative. Urine cultures were positive for Enterococcus. Serum B-D glucan and serum aspergillum was positive and IV voriconazole was added to patients antibiotic regimen. Pt underwent bronchoscopy, however procedure was aborted due to equipment malfunction. Patients symptoms continued to improve on Doxycycline, Meropenem, Clindamycin, Primaquine, and Vorionazole. She completed her full course of doxycycline and meropenem and will be discharged on oral clindamycin, primaquine, and voriconazole. Infectious disease also recommended patient start Biktarvy for her HIV. Pt was seen by cardiology for her CHF. Echo on this admission showed EF 45.4%, mild TR moderate pulmonary HTN. Patient received Lopressor 12.5mg po q12, Lasix 20mg IVP daily, and Aspirin 81mg po daily. Pulmonology also optimized patients medications for her COPD. She was on supplemental oxygen, Brovana, Pulmicort, Xopenex, Atrovent prn, duonebs prn, and solumedrol prn. Patients symptoms continued to improve. She was counselled extensively on medication/follow up compliance and she voiced understanding. She is clinically stable for discharge , per Dr. Bhatti and Infectious disease, Dr. Chou. She will need to complete her course of oral antibiotics/antifungals and follow up with her primary care provider for continued care and medication management. Patient is instructed to take all home medications as currently prescribed, with scripts provided as needed. She was instructed to return to the ED if symptoms worsen. The above is a summary of hospital course. For full detail, please refer to patient's EMR. - Date & Time of H&P Date of H&P: 08/23/18 Time of H&P: 20:58 Discharge Exam - Head Exam Head Exam: ATRAUMATIC, NORMAL INSPECTION, NORMOCEPHALIC - Eye Exam Eye Exam: EOMI, Normal appearance, PERRL Pupil Exam: NORMAL ACCOMODATION - ENT Exam ENT Exam: Mucous Membranes Moist, Normal Exam - Neck Exam Neck exam: Full Rom, Normal Inspection - Respiratory Exam Respiratory Exam: Clear to PA & Lateral, NORMAL BREATHING PATTERN, UNREMARKABLE - Cardiovascular Exam Cardiovascular Exam: REGULAR RHYTHM, +S1, +S2 - GI/Abdominal Exam GI & Abdominal Exam: Normal Bowel Sounds, Unremarkable - Extremities Exam Extremities exam: normal capillary refill, normal inspection, pedal pulses present - Back Exam Back exam: NORMAL INSPECTION - Neurological Exam Neurological exam: Alert, Normal Gait, Oriented x3 - Psychiatric Exam Psychiatric exam: Anxious, Normal Affect - Skin Skin Exam: Dry, Intact, Normal Color, Warm Discharge Plan - Discharge Medications Prescriptions: Albuterol Sulfate [Ventolin Hfa] 1 puff IH DAILY PRN #1 ml PRN Reason: Shortness Of Breath RX: Aspirin [Ecotrin] 81 mg PO DAILY #30 tabec RX: Atovaquone [Mepron] 750 mg PO BID #42 packet Bictegrav/Emtricit/Tenofov Ala [Biktarvy 50-200-25 mg Tablet] 1 each PO DAILY #30 tablet RX: Budesonide [Pulmicort Respules] 0.5 mg IH [id number] #1 neb RX: Furosemide [Lasix] 20 mg PO BID #60 tab Methylprednisolone [Medrol Dose Pack (21 tabs)] 4 mg PO DAILY #21 mg RX: Metoprolol Tartrate [Lopressor] 12.5 mg PO Q12 #60 tab RX: Pantoprazole [Protonix EC Tab] 40 mg PO 0600 #30 ect - Follow Up Plan Condition: FAIR Disposition: HOME/ ROUTINE Instructions: Pneumonia in Adults, Hepatitis C, Heart Healthy Diet, MRSA (DC), HIV/AIDS (DC), Vaccines for People With HIV Additional Instructions: Patient is medically stable for discharge, as per Dr. Bhatti. Patient is instructed to continue taking medications as currently prescribed. 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 Per pharmacy, Biktarvy will be available for pickup tomorrow. Patient has been instructed to return to [facility] pharmacy tomorrow to machine operator picker her HARRT medication (Biktarvy). Pharmacy has also been notified and has been given patient's contact information. Please follow up with your primary care provider (Dr. Carter) within 1 week of discharge for further care. Patient states she has an appointment tomorrow at [facility] for [facility]. She is instructed to follow up with them upon discharge for continued care and management of her chronic health issues. If symptoms worsen, please return to the ED. Referrals: Macario Carter MD [Primary Care Provider] - <Cara Bhatti - Last Filed: 08/24/18 08:08> Provider - Provider Date of Admission: 08/12/18 04:10 Attending physician: Cara Bhatti MD Primary care physician: Macario Carter MD Hospital Course - Lab Results Lab Results: Micro Results 08/14/18 10:00 Other: Please Indicate Mycobacterial Culture - Preliminary 08/17/18 09:50 Other: Please Indicate Mycobacterial Culture - Preliminary 08/16/18 04:45 Other: Please Indicate Mycobacterial Culture - Preliminary 08/12/18 02:30 Blood-Venous Blood Culture - Final NO GROWTH AFTER 5 DAYS 08/12/18 02:30 Blood-Venous Gram Stain - Final TEST NOT PERFORMED 08/12/18 01:59 Blood-Venous Blood Culture - Final NO GROWTH AFTER 5 DAYS 08/12/18 01:59 Blood-Venous Gram Stain - Final TEST NOT PERFORMED 08/13/18 14:30 Sputum Gram Stain - Final 08/13/18 14:30 Sputum Sputum Culture - Preliminary 08/12/18 05:13 Urine,Catheterized Urine Culture - Final Enterococcus Faecium Enterococcus Faecalis Most Recent Lab Values WBC 9.1 10^3/uL (4.5-11.0) 08/23/18 10:30 RBC 2.81 10^6/uL (3.5-6.1) L 08/23/18 10:30 Hgb 7.4 g/dL (12.0-16.0) L 08/23/18 10:30 Hct 25.1 % (36.0-48.0) L 08/23/18 10:30 MCV 89.3 fl (80.0-105.0) 08/23/18 10:30 MCH 26.3 pg (25.0-35.0) 08/23/18 10:30 MCHC 29.5 g/dl (31.0-37.0) L 08/23/18 10:30 RDW 18.2 % (11.5-14.5) H 08/23/18 10:30 Plt Count 273 10^3/uL (120.0-450.0) 08/23/18 10:30 MPV 9.7 fl (7.0-11.0) 08/23/18 10:30 Gran % 78.3 % (50.0-68.0) H 08/23/18 10:30 Lymph % (Auto) 11.6 % (22.0-35.0) L 08/23/18 10:30 [place] % (Auto) 8.6 % (1.0-6.0) H 08/23/18 10:30 Eos % (Auto) 1.2 % (1.5-5.0) L 08/23/18 10:30 Baso % (Auto) 0.3 % (0.0-3.0) 08/23/18 10:30 Gran # 7.14 (1.4-6.5) H 08/23/18 10:30 Lymph # (Auto) 1.1 (1.2-3.4) L 08/23/18 10:30 [place] # (Auto) 0.8 (0.1-0.6) H 08/23/18 10:30 Eos # (Auto) 0.1 (0.0-0.7) 08/23/18 10:30 Baso # (Auto) 0.03 K/mm3 (0.0-2.0) 08/23/18 10:30 Neutrophils % (Manual) 85 % (50.0-70.0) H 08/12/18 01:59 Band Neutrophils % 5 % (0-2) H 08/12/18 01:59 Lymphocytes % (Manual) 5 % (22.0-35.0) L 08/12/18 01:59 Atypical Lymphs % 2 % (0.0-0.0) H 08/12/18 01:59 Monocytes % (Manual) 1 % (1.0-6.0) 08/12/18 01:59 Myelocytes % 2 % 08/12/18 01:59 Platelet Evaluation Normal (NORMAL) 08/12/18 01:59 Poikilocytosis (manual Slight 08/12/18 01:59 Anisocytosis (manual) Slight 08/12/18 01:59 Ovalocytes Slight 08/12/18 01:59 pCO2 42 mm/Hg (35-45) 08/12/18 11:12 pO2 76.0 mm/Hg (80-100) L 08/12/18 11:12 HCO3 29.2 mmol/L (21-28) H 08/12/18 11:12 ABG pH 7.45 (7.35-7.45) 08/12/18 11:12 ABG Total CO2 30.5 mmol.L (22-28) H 08/12/18 11:12 ABG O2 Saturation 96.9 % (95-98) 08/12/18 11:12 ABG O2 Content 11.0 ML/dl (15-23) L 08/12/18 11:12 ABG Base Excess 4.8 mmol/L (-2.0-3.0) H 08/12/18 11:12 ABG Hemoglobin 8.3 g/dL (11.7-17.4) L 08/12/18 11:12 ABG Carboxyhemoglobin 1.5 % (0.5-1.5) 08/12/18 11:12 POC ABG HHb (Measured) 3.0 % (0-5) 08/12/18 11:12 ABG Methemoglobin 1.8 % (0.0-3.0) 08/12/18 11:12 ABG O2 Capacity 11.4 mL/dl (16-24) L 08/12/18 11:12 VBG pH 7.26 (7.32-7.43) L 08/12/18 02:34 VBG pCO2 69.0 (40-60) H* 08/12/18 02:34 VBG HCO3 31.0 mmol/l (21-28) H 08/12/18 02:34 VBG Total CO2 33.1 mmol.L (22-28) H 08/12/18 02:34 VBG O2 Sat (Calc) 82.2 % (40-65) H 08/12/18 02:34 VBG Base Excess 1.9 mmol/L (0.0-2.0) 08/12/18 02:34 VBG Potassium 4.4 mmol/L (3.6-5.2) 08/12/18 02:34 Hgb O2 Saturation 93.7 % (95.0-98.0) L 08/12/18 11:12 Sodium 140.0 mmol/L (132-148) 08/12/18 02:34 Chloride 111.0 mmol/L (98-107) H 08/12/18 02:34 Glucose 92 mg/dl (65-105) 08/12/18 02:34 Lactate 0.8 mmol/L (0.7-2.1) 08/12/18 02:34 FiO2 50.0 % 08/12/18 11:12 Sodium 139 mmol/L (132-148) 08/23/18 10:30 Potassium 4.9 mmol/L (3.6-5.0) 08/23/18 10:30 Chloride 101 mmol/L (98-107) 08/23/18 10:30 Carbon Dioxide 31 mmol/L (21-33) 08/23/18 10:30 Anion Gap 12 (10-20) 08/23/18 10:30 BUN 41 mg/dL (7-21) H 08/23/18 10:30 Creatinine 0.8 mg/dl (0.7-1.2) 08/23/18 10:30 Est GFR ( Amer) > 60 08/23/18 10:30 Est GFR (Non-Af Amer) > 60 08/23/18 10:30 Random Glucose 98 mg/dL (70-110) 08/23/18 10:30 Lactic Acid 1.4 mmol/L (0.7-2.1) 08/12/18 09:30 Calcium 9.6 mg/dL (8.4-10.5) 08/23/18 10:30 Phosphorus 3.6 mg/dL (2.5-4.5) 08/23/18 10:30 Magnesium 2.1 mg/dL (1.7-2.2) 08/23/18 10:30 Total Bilirubin 0.3 mg/dL (0.2-1.3) 08/23/18 10:30 AST 40 U/L (14-36) H 08/23/18 10:30 ALT 22 U/L (7-56) 08/23/18 10:30 Alkaline Phosphatase 57 U/L (38-126) 08/23/18 10:30 Lactate Dehydrogenase 1438 U/L (333-699) H 08/12/18 01:59 Total Creatine Kinase 30 U/L (35-230) L 08/12/18 01:59 Troponin I 0.06 ng/mL D 08/12/18 16:11 NT-Pro-B Natriuret Pep 62324 pg/mL (0-450) H 08/12/18 01:59 Total Protein 6.8 g/dL (5.8-8.3) 08/23/18 10:30 Albumin 3.2 g/dL (3.0-4.8) 08/23/18 10:30 Globulin 3.6 gm/dL 08/23/18 10:30 Albumin/Globulin Ratio 0.9 (1.1-1.8) L 08/23/18 10:30 Procalcitonin 0.63 NG/ML (0.19-0.49) H 08/12/18 09:30 TSH 3rd Generation 0.82 mIU/mL (0.46-4.68) 08/13/18 07:00 Beta HCG, Quant < 2.39 mIU/mL (0-6.15) 08/12/18 09:30 Venous Blood Potassium 4.4 mmol/L (3.6-5.2) 08/12/18 02:34 Urine Color Yellow (YELLOW) 08/12/18 05:13 Urine Appearance Clear (CLEAR) 08/12/18 05:13 Urine pH 6.0 (4.7-8.0) 08/12/18 05:13 Ur Specific [place] 1.015 (1.005-1.035) 08/12/18 05:13 Urine Protein 100 mg/dL (<30 mg/dL) H 08/12/18 05:13 Urine Glucose (UA) Negative mg/dL (NEGATIVE) 08/12/18 05:13 Urine Ketones Negative mg/dL (NEGATIVE) 08/12/18 05:13 Urine Blood Trace-lysed (NEGATIVE) H 08/12/18 05:13 Urine Nitrate Negative (NEGATIVE) 08/12/18 05:13 Urine Bilirubin Negative (NEGATIVE) 08/12/18 05:13 Urine Urobilinogen 0.2 E.U./dL (<1 E.U./dL) 08/12/18 05:13 Ur Leukocyte Esterase Negative Juliano/uL (NEGATIVE) 08/12/18 05:13 Urine RBC 0 - 2 /hpf (0-2) 08/12/18 05:13 Urine WBC 1 - 3 /hpf (0-6) 08/12/18 05:13 Ur Epithelial Cells 3 - 4 /hpf (0-5) 08/12/18 05:13 Amorphous Sediment Rare 08/12/18 05:13 Urine Bacteria Occ (NEG) 08/12/18 05:13 Hyaline Casts 0 - 2 /hpf 08/12/18 05:13 Urine HCG, Qual Negative (NEGATIVE) 08/12/18 05:13 Urine Opiates Screen Negative (NEGATIVE) 08/12/18 05:13 Urine Methadone Screen Positive (NEGATIVE) H 08/12/18 05:13 Ur Barbiturates Screen Negative (NEGATIVE) 08/12/18 05:13 Ur Phencyclidine Scrn Negative (NEGATIVE) 08/12/18 05:13 Ur Amphetamines Screen Negative (NEGATIVE) 08/12/18 05:13 U Benzodiazepines Scrn Negative (NEGATIVE) 08/12/18 05:13 U Oth Cocaine Metabols Negative (NEGATIVE) 08/12/18 05:13 U Cannabinoids Screen Negative (NEGATIVE) 08/12/18 05:13 Cryptococcus Ag Screen Not detected (Not Detected) 08/12/18 09:30 Ur L.pneumophila Ag Negative (NEGATIVE) 08/14/18 17:45 Aspergillus Antigen Detected (Not Detected) H 08/13/18 12:00 Aspergillus Index Value 0.99 (<0.50) H 08/13/18 12:00 Beta-(1,3)-D-Glucan >500 pg/mL (<60) H 08/12/18 09:30 B-(1,3)-D-Glucan Intrp Positive H 08/12/18 09:30 Attending/Attestation - Attestation I have personally seen and examined this patient.: Yes I have fully participated in the care of the patient.: Yes I have reviewed all pertinent clinical information, including history, physical exam and plan: Yes Notes (Text): 08/24/18 08:04 Medical record note made by the resident after discussion with my direction and input after the patient was personally seen and examined by me. I have reviewed the chart and agree that the record accurately reflects by personal performance of the history, physical exam, data review, and medical decision-making, in the course for the patient. I have also personally directed the plan of care 38 year old female with past medical history of HIV/AIDs, COPD, asthma, heroin abuse, CHF who was recently discharged from [facility] presented with acute on chronic Hypoxic Resp Failure. CT chest showed nodular opacities throughout bilateral lung asif including one nodule with probable cavitation, bilateral R>L consolidations and small bilateral pleural effusions. AFB x 3 were negative and Respiratory isolation was discontinued. serum Aspergillus and B-(1,3)-D-glucan positive positive, Patient was treated PJP Pneumonia,aspergillus and fungal infection during hospitalization. Her CHF medications were adjusted. Patient is afebrile, hypoxia is improved, she is ambulatory and is feeling at her base line.She does not want to stay in the hospital and has refused to go to [facility].She is alert, awake and oriented .The issue was discussed with her in detail.Patient will be discharged on oral clindamycin, primaquine, and voriconazole and Biktarvy for her HIV. Patient was counselled on medication compliance. Overall prognosis is poor secondary to noncompliance. 08/24/18 08:07
== END 2018-08-23 18:45 | disposition home or self-care (01) | DRG 706 ==
LOC: ED 01:33 → ERH 04:10 → 2RNO 05:26 → 5RSO 08-16 21:17
PROVIDERS: ADMIT Internal Medicine; ATTEND Internal Medicine
DX: A41.9 Sepsis, unspecified organism (principal); B20 Human immunodeficiency virus [HIV] disease; B59 Pneumocystosis; I42.9 Cardiomyopathy, unspecified; J96.21 Acute and chronic respiratory failure with hypoxia; I50.20 Unspecified systolic (congestive) heart failure; B44.9 Aspergillosis, unspecified; E44.0 Moderate protein-calorie malnutrition; F11.20 Opioid dependence, uncomplicated; A31.0 Pulmonary mycobacterial infection; I11.0 Hypertensive heart disease with heart failure; I07.1 Rheumatic tricuspid insufficiency; B19.20 Unspecified viral hepatitis C without hepatic coma; J44.9 Chronic obstructive pulmonary disease, unspecified; H35.30 Unspecified macular degeneration; I27.20 Pulmonary hypertension, unspecified; K21.9 Gastro-esophageal reflux disease without esophagitis; M41.9 Scoliosis, unspecified; D64.9 Anemia, unspecified; F43.10 Post-traumatic stress disorder, unspecified; F41.9 Anxiety disorder, unspecified; Z68.1 Body mass index [BMI] 19.9 or less, adult; Z91.14 Patient's other noncompliance with medication regimen; Z87.891 Personal history of nicotine dependence; Z88.0 Allergy status to penicillin

== ENCOUNTER 2018-10-10 13:43 | Inpatient (IN) | payer OTHER ==
[2018-10-10 14:14] VITALS: BMI 17.8
--- NOTE | 2018-10-10 14:48 | ED PDOC ---
Arrival/HPI - General Chief Complaint: Shortness Of Breath Time Seen by Provider: 10/10/18 14:02 Historian: Patient - History of Present Illness Narrative History of Present Illness (Text): 10/10/18 14:45 A 38 year old female, whose past medical history includes HIV, EBV, CMV, HSV, COPD, asthma, heroin abuse, CHF with LVEF=35% on 04/11, presents to the emergency department with a complaint of shortness of breath. Patient notes that her symptoms have worsened over the past 2 weeks. She also complains of cough and fever. She states that she takes Bactrim every day. When asked, patient does not recall her last viral load, but states that she has a normal CD4 count. She also notes that she is on 5L of O2 at home for her COPD/ASTHMA. The patient denies chills, headache, neck stiffness, leg swelling, dizziness, chest pain, dyspnea on exertion, abdominal pain, nausea, vomiting, diarrhea, back pain, neck pain, urinary/bowel changes, or any other complaint. PMD: Dr. Carter Time/Duration: Other (2 weeks) Symptom Onset: Gradual Symptom Course: Worsening Activities at Onset: Rest, Light Context: Home Past Medical History - Provider Review Nursing Documentation Reviewed: Yes - Infectious Disease Hx of Infectious Diseases: None - Tetanus Immunization Tetanus Immunization: Unknown - Cardiac Hx Pacemaker: No - Pulmonary Hx Chronic Obstructive Pulmonary Disease (COPD): Yes (O2 dependent) Hx Pneumonia: Yes (PCP pneumoaie) - Neurological Hx Migraine: Yes - HEENT Hx Macular Degeneration: Yes - Renal Hx Renal Disorder: No - Endocrine/Metabolic Hx Endocrine Disorders: No - Hematological/Oncological Hx Cancer: No - Integumentary Hx Dermatological Disorder: Yes - Musculoskeletal/Rheumatological Hx Musculoskeletal Disorders: Yes Hx Back Pain: Yes Other/Comment: SCOLIOSIS - Gastrointestinal Hx Gastrointestinal Disorders: Yes Hx Gastroesophageal Reflux: Yes - Genitourinary/Gynecological Hx Genitourinary Disorders: Yes Hx Urinary Tract Infection: Yes - Psychiatric Hx Psychophysiologic Disorder: Yes Hx Anxiety: Yes Hx Substance Use: No Other/Comment: hx ivdu/cocaine stopped 6 yrs ago on methadone program. - Past Surgical History Past Surgical History: No Previous - Surgical History Hx Mastectomy: No - Anesthesia Hx Anesthesia Reactions: No Hx Malignant Hyperthermia: No - Suicidal Assessment Feels Threatened In Home Enviroment: No Family/Social History - Physician Review Nursing Documentation Reviewed: Yes Family/Social History: No Known Family HX Smoking Status: Former Smoker Hx Alcohol Use: No Hx Substance Use: No Substance used: heroine, cocaine Hx Substance Use Treatment: No Allergies/Home Meds Allergies/Adverse Reactions: Allergies levofloxacin [From Levaquin] Allergy (Verified 08/12/18 01:53) RASH Penicillins Allergy (Verified 08/12/18 01:53) RASH sulfamethoxazole [From Bactrim] Allergy (Verified 08/12/18 01:53) ANGIOEDEMA trimethoprim [From Bactrim] Allergy (Verified 08/12/18 01:53) ANGIOEDEMA azithromycin [From Zithromax] Adverse Reaction (Verified 08/12/18 01:53) RASH flexeril Adverse Reaction (Uncoded 08/12/18 01:53) RASH Home Medications: Home Meds Medication Instructions Recorded Confirmed RX: Ascorbic Acid [Vitamin C] 500 mg PO DAILY 08/12/18 08/12/18 RX: Folic Acid 1 mg PO DAILY 08/12/18 08/12/18 RX: Ledipasvir/Sofosbuvir [Harvoni 1 tab PO DAILY 08/12/18 08/12/18 90-400 mg Tablet] RX: Megestrol [Megace] 40 mg PO Q6 08/12/18 08/12/18 RX: Methadone 100 mg PO DAILY 08/12/18 08/12/18 RX: Mirtazapine [Remeron] 30 mg PO DAILY 08/12/18 08/12/18 RX: Ritonavir [Norvir] 100 mg PO DAILY 08/12/18 08/12/18 Review of Systems - Physician Review All systems were reviewed & negative as marked: Yes - Review of Systems Constitutional: Fevers. absent: Fatigue, Weight Change Eyes: absent: Vision Changes ENT: absent: Hearing Changes Respiratory: SOB, Cough Cardiovascular: absent: Chest Pain, YODER Gastrointestinal: absent: Abdominal Pain, Stool Changes, Diarrhea, Nausea, Vomiting Genitourinary Female: absent: Dysuria, Frequency, Urine Output Changes Musculoskeletal: absent: Back Pain, Neck Pain Skin: absent: Rash, Pruritis Neurological: absent: Headache, Dizziness Physical Exam Vital Signs Reviewed: Yes Vital Signs Temp Pulse Resp BP Pulse Ox 10/10/18 13:45 98.0 F 114 H 22 102/82 100 Temperature: Afebrile Blood Pressure: Normal Pulse: Tachycardic Respiratory Rate: Normal Appearance: Positive for: Well-Appearing, Non-Toxic, Comfortable Pain Distress: None Mental Status: Positive for: Alert and Oriented X 3 - Systems Exam Head: Present: Atraumatic, Normocephalic Pupils: Present: PERRL. No: Sluggish Extroacular Muscles: Present: EOMI. No: Gaze Palsy Conjunctiva: Present: Normal. No: Injected Ears: Present: Normal, NORMAL TM Mouth: Present: Moist Mucous Membranes Pharnyx: Present: Normal. No: ERYTHEMA, EXUDATE, TONSILS ENLARGED, Peritonsilar Swelling, Uvular Deviation, Muffled/Hoarse Voice, Strider Nose (Internal): Present: Normal Inspection. No: Boggy, Rhinorrhea, Septal Hematoma, Epistaxis Neck: Present: Normal Range of Motion. No: Meningeal Signs, MIDLINE TENDERNESS, Paraspinal Tenderness Respiratory/Chest: Present: Good Air Exchange, Wheezes (wheezes bilaterally at the bases), Rhonchi (rhonchi right lung ). No: Respiratory Distress, Accessory Muscle Use, Decreased Breath Sounds Cardiovascular: Present: Regular Rate and Rhythm, Normal S1, S2. No: Murmurs Abdomen: No: Tenderness, Distention, Peritoneal Signs Back: Present: Normal Inspection Upper Extremity: Present: Normal Inspection. No: Cyanosis, Edema Lower Extremity: Present: Normal Inspection. No: Edema Neurological: Present: GCS=15, CN II-XII Intact, Speech Normal Skin: Present: Warm, Dry, Normal Color. No: Rashes Psychiatric: Present: Alert, Oriented x 3, Normal Insight, Normal Concentration Medical Decision Making ED Course and Treatment: Impression: A 38 year old female presents to the emergency department with a complaint of shortness of breath. On exam, well appearing, without change in phonation per pt. Newly compliant w/ HAART medication, on Bactrim PPX for PCP however. Notes recent stays inpatient have not improved her cough, congestion. Likely PNA vs viral infection. Plan: -- EKG -- Chest X-ray -- Labs -- Blood Culture -- Reassess and disposition Prior Visits: Notes and results from previous visits were reviewed. Progress Notes: 10/10/18 17:39 [facility] PNA XR per my read No batwing on XR. Pt is already on Bactrim for ppx, took it today. 10/10/18 17:48 appreciate consult w/ Dr. Murillo: to admit to his service: ABG ordered, to rx w/ abx. Pt allergic to zosyn. allergic to floriq. Azactam chosen. pt in NAD. 10/10/18 18:57 ABG resulted: A-a gradient non >35. Pa02 > 70 10/10/18 21:23 BNP elevated, Lasix Ordered. Pt in NAD, upgraded to tele given BNP - Lab Interpretations I have reviewed the lab results: Yes - RAD Interpretation Narrative RAD Interpretations (Text): EKG: Ordered, reviewed, and independently interpreted the EKG. Rate : 112 BPM Rhythm : Sinus Tachycardia Interpretation : No STEMI Radiology Orders: 10/10/18 14:23 CHEST TWO VIEWS (PA/LAT) [RAD] Stat - EKG Interpretation Interpreted by ED Physician: Yes Type: 12 lead EKG - Scribe Statement The provider has reviewed the documentation as recorded by the Scribe Nita Fam Provider Scribe Attestation: All medical record entries made by the Scribe were at my direction and personally dictated by me. I have reviewed the chart and agree that the record accurately reflects my personal performance of the history, physical exam, medical decision making, and the department course for this patient. I have also personally directed, reviewed, and agree with the discharge instructions and disposition. Disposition/Present on Arrival - Present on Arrival Any Indicators Present on Arrival: No History of DVT/PE: No History of Uncontrolled Diabetes: No Urinary Catheter: No History of Decub. Ulcer: No History Surgical Site Infection Following: None - Disposition Have Diagnosis and Disposition been Completed?: Yes Diagnosis: Pneumonia Disposition Time: 17:50 Patient Problems: Current Active Problems Problem Status Onset Pneumonia Acute Condition: GOOD
[2018-10-10 17:09] LABS: BASO # 0.01 K/mm3 (0.0-2.0); BASO % 0.1 % (0.0-3.0); EOS # 0.6 (0.0-0.7); GRAN # 6.53 (1.4-6.5); GRAN % 68.1 % (50.0-68.0); HEMOGLOBIN 9.6 g/dL (12.0-16.0); LYMPH # 1.8 (1.2-3.4); LYMPH % 18.4 % (22.0-35.0); MEAN CELL VOLUME 83.3 fl (80.0-105.0); MEAN CORPUSCULAR HEMOGLOBIN 25.5 pg (25.0-35.0); MEAN CORPUSCULAR HGB CONC 30.6 g/dl (31.0-37.0); MEAN PLATELET VOLUME 9.5 fl (7.0-11.0); MONO # 0.7 (0.1-0.6); MONO % 7.4 % (1.0-6.0); RBC 3.77 10^6/uL (3.5-6.1); RED CELL DISTRIBUTION WIDTH 16.7 % (11.5-14.5); WHITE BLOOD COUNT 9.6 10^3/uL (4.5-11.0)
[2018-10-10 17:14] LABS: ALB/GLOB RATIO 0.7 (1.1-1.8); ALBUMIN 3.6 g/dL (3.0-4.8); BLOOD UREA NITROGEN 19 mg/dL (7-21); CALCIUM 9.2 mg/dL (8.4-10.5); GFR NON-AFRICAN AMERICAN > 60
[2018-10-10 17:19] LABS: ALT/SGPT 12 U/L (7-56); AST/SGOT 43 U/L (14-36)
[2018-10-10] MEDS ORDERED: Aztreonam 1 Gm in NS 100mL 100 ML IVPB STA (17:45)
[2018-10-10] MEDS ORDERED: Vancomycin 1gm in NS 250ml 1 GM/250 ML BAG IVPB STA (17:45)
[2018-10-10 17:58] LABS: TROPONIN I 0.12 ng/mL
[2018-10-10 18:10] LABS: B-TYPE NATRIURETIC PEPTIDE 10300 pg/mL (0-450)
[2018-10-10 18:51] LABS: ARTERIAL BLOOD GAS HCO3 27.2 mmol/L (21-28); ARTERIAL BLOOD GAS PCO2 47 mm/Hg (35-45); ARTERIAL BLOOD GAS PH 7.37 (7.35-7.45); ARTERIAL BLOOD GAS TCO2 28.6 mmol.L (22-28)
[2018-10-11] MEDS: MethylPREDNISolone 40 mg Vial IV SCH ×3 (01:56→22:18)
[2018-10-11] MEDS: Pantoprazole 40 mg EC Tab PO SCH (05:43)
[2018-10-11] MEDS: Albuterol-Ipratrop 3 mg / 0.5 (3 ml) UD IH SCH ×4 (08:04→19:34)
[2018-10-11] MEDS: Arformoterol 15 mcg/2 ml Inh Sol IH SCH ×2 (08:04→19:34)
[2018-10-11] MEDS: Budesonide 0.5 mg/2 ml Inhal Susp UD IH SCH ×2 (08:04→19:34)
--- NOTE | 2018-10-11 08:23 | RAD ---
Date of service: 10/10/2018 HISTORY: sob COMPARISON: 08/12/2018 TECHNIQUE: Chest PA and lateral FINDINGS: LUNGS: No active pulmonary disease. PLEURA: No significant pleural effusion identified. No pneumothorax apparent. CARDIOVASCULAR: No aortic atherosclerotic calcification present. Moderate cardiomegaly no pulmonary vascular congestion. OSSEOUS STRUCTURES: No significant abnormalities. VISUALIZED UPPER ABDOMEN: Normal. OTHER FINDINGS: None. IMPRESSION: No active disease.
[2018-10-11] MEDS: Enoxaparin 40 mg Syringe SC SCH (09:50)
[2018-10-11] MEDS ORDERED: Albuterol 0.042% Inhal Sol (1.25 mg/3 mL) UD IH PRN (10:00)
--- NOTE | 2018-10-11 11:13 | CARD ---
APPROVED REPORT Date of service: 10/10/2018 EKG Measurement Heart [id number] <Conclusion> Sinus tachycardia RSR' or QR pattern in V1 suggests right ventricular conduction delay Nonspecific T wave abnormality Prolonged QTc No change
[2018-10-11] MEDS ORDERED: SYMTUZA PO SCH (12:30)
--- NOTE | 2018-10-11 13:18 | CP.PCM.CON ---
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 Patient states she has increased cough and mucous production during this time. She states it happened when the weather became colder. Patient admits to being compliant with medications. She states she takes Bactrim and Benadryl for PCP prophylaxis. Denies chest pain, nausea, vomiting, diarrhea, fever, chills, body aches, myalgias. PMH: as stated above Surgical Hx: right neck abscess Allergies: bactrim, levofloaxicin, penicillin, azithromycin, flexeril Social Hx: IVDA with heroin, former smoker of 1 ppd for 20 years. Denies alcohol use. Medications: Reviewed, as per MAR Review of Systems - Review of Systems Review of Systems: 12 point ROS as per HPI, otherwise negative Past Patient History - Infectious Disease Hx of Infectious Diseases: None - Tetanus Immunizations Tetanus Immunization: Unknown - Past Social History Smoking Status: Light Smoker < 10 Cigarettes Daily - CARDIAC Hx Cardiac Disorders: Yes Hx Angina: No Hx Cardia Arrhythmia: No Hx Circulatory Problems: No Hx Congestive Heart Failure: Yes Hx Heart Murmur: No Hx Heart Transplant: No Hx Hypercholesterolemia: No Hx Hypertension: Yes Hx Internal Defibrillator: No Hx Mitral Valve Prolapse: No Hx Pacemaker: No Hx Peripheral Edema: No Hx Peripheral Vascular Disease: No - PULMONARY Hx Respiratory Disorders: Yes Hx Asthma: Yes Hx Bronchitis: Yes Hx Chronic Obstructive Pulmonary Disease (COPD): Yes Hx Emphysema: No Hx Pneumonia: Yes Hx Respiratory Aspiration: No Hx Respiratory Tract Infection: No Hx Sleep Apnea: No Hx Tuberculosis: No - NEUROLOGICAL Hx Neurological Disorder: Yes Hx Alzheimer's Disease: No HX Cerebrovascular Accident: No Hx Dementia: No Hx Dizziness: Yes Hx Meningitis: No Hx Migraine: Yes Hx Parkinson's Disease: No Hx Seizures: No Hx Transient Ischemic Attacks (TIA): No - HEENT Hx HEENT Problems: No Hx Blind: No Hx Cataracts: No Hx Deafness: No Hx Difficulty Chewing: No Hx Epistaxis: No Hx Glaucoma: No Hx Macular Degeneration: No - RENAL Hx Chronic Kidney Disease: No Hx Dialysis: No Hx Kidney Stones: No Hx Neurogenic Bladder: No Hx Pyelonephritis: No Hx Renal (Kidney) Cancer: No Hx Renal Failure: No - ENDOCRINE/METABOLIC Hx Endocrine Disorders: No Hx Adrenal Cancer: No Hx Diabetes Insipidus: No Hx Diabetes Mellitus Type 1: No Hx Diabetes Mellitus Type 2: No Hx Hyperthyroidism: No Hx Hypothyroidism: No Hx Systemic Lupus Erythematosus: No - HEMATOLOGICAL/ONCOLOGICAL Hx Blood Disorders: Yes Hx AIDS: Yes Hx Anemia: No Hx Cancer: No Hx Chemotherapy: No Hx Cirrhosis: No Hx Hemophilia: No Hx Hepatitis A: No Hx Hepatitis B: No Hx Hepatitis C: Yes Hx Human Immunodeficiency Virus (HIV): Yes Hx Metastesis: No Hx Shingles: No Hx Sickle Cell Disease: No Hx Unexplained Bleeding: No - INTEGUMENTARY Hx Dermatological Problems: No Hx Basil Cell: No Hx Eczema: No Hx Melanoma: No Hx Psoriasis: No Hx Squamous Cell: No - MUSCULOSKELETAL/RHEUMATOLOGICAL Hx Musculoskeletal Disorders: Yes Hx Arthritis: Yes Hx Back Pain: Yes Hx Degenerative Joint Disease: No Hx Falls: No Hx Fractures: No Hx Gout: No Hx Herniated Disk: No Hx Myasthenia Gravis: No Hx Osteoarthritis: No Hx Osteomyelitis: No Hx Osteoporosis: No Hx Rhabdomyolysis: No Hx Spinal Stenosis: No Hx Unsteady Gait: Yes - GASTROINTESTINAL Hx Gastrointestinal Disorders: Yes Hx Colostomy: No Hx Crohn's Disease: No Hx Diverticulitis: No Hx Gall Bladder Disease: No Hx Gastroesophageal Reflux: Yes Hx Ileostomy: No Hx Liver Failure: No Hx Pancreatitis: No HX Swallowing Problems: No Hx Ulcer: No - GENITOURINARY/GYNECOLOGICAL Hx Genitourinary Disorders: Yes Hx Hematuria: No Hx Incontinence: Yes Hx Sexually Transmitted Disorders: No Hx Urinary Tract Infection: Yes - PSYCHIATRIC Hx Psychophysiologic Disorder: Yes Hx Anxiety: Yes Hx Bipolar Disorder: No Hx Depression: No Hx Emotional Abuse: No Hx Hallucinations: No Hx Panic Symptoms: No Hx Paranoia: No Hx Post Traumatic Stress Disorder: No Hx Psychosis: No Hx Physical Abuse: No Hx Schizophrenia: No Hx Sexual Abuse: No Hx Substance Use: Yes - SURGICAL HISTORY Hx Surgeries: Yes Hx Amputation: No Hx Appendectomy: No Hx Cardiac Catheterization: No Hx Cholecystectomy: No Hx Coronary Stent: No Hx Gastric Bypass Surgery: No Hx Hysterectomy: No Hx Joint Replacement: No Hx Kidney Transplant: No Hx Liver Transplant: No Hx Mastectomy: No Hx Musculoskeletal Surgery: No Hx Open Heart Surgery: No Hx Orthopedic Surgery: No Hx Splenectomy: No Hx Valve Replacement: No - ANESTHESIA Hx Anesthesia Reactions: No Hx Malignant Hyperthermia: No Meds Allergies/Adverse Reactions: Allergies Allergy/AdvReac Type Severity Reaction Status Date / Time levofloxacin [From Levaquin] Allergy RASH Verified 08/12/18 01:53 Penicillins Allergy RASH Verified 08/12/18 01:53 sulfamethoxazole Allergy ANGIOEDEMA Verified 08/12/18 01:53 [From Bactrim] trimethoprim [From Bactrim] Allergy ANGIOEDEMA Verified 08/12/18 01:53 azithromycin [From Zithromax] AdvReac RASH Verified 08/12/18 01:53 flexeril AdvReac RASH Uncoded 08/12/18 01:53 - Medications Medications: Current Medications Albuterol Sulfate (Albuterol 0.042% Inhal Donna (1.25mg/3ml) Ud) 1.25 mg IH DAILY PRN PRN Reason: Shortness of Breath Albuterol/Ipratropium (Duoneb 3 Mg/0.5 Mg (3 Ml) Ud) 3 ml IH QIDRESP [facility] Last Admin: 10/11/18 11:03 Dose: Not Given Arformoterol Tartrate (Brovana) 15 mcg IH [id number] [facility] Last Admin: 10/11/18 08:04 Dose: Not Given Ascorbic Acid (Vitamin C 500 Mg Tab) 500 mg PO DAILY [facility] Last Admin: 10/11/18 09:49 Dose: 500 mg Aspirin (Ecotrin) 81 mg PO DAILY [facility] Last Admin: 10/11/18 09:48 Dose: 81 mg Atovaquone (Mepron) 1,500 mg PO DAILY [facility]; Protocol Budesonide (Pulmicort Respules) 0.5 mg IH [id number] [facility] Last Admin: 10/11/18 08:04 Dose: Not Given Clonazepam (Klonopin) 0.5 mg PO TID PRN; Protocol PRN Reason: Anxiety Last Admin: 10/11/18 11:05 Dose: 0.5 mg Enoxaparin Sodium (Lovenox) 40 mg SC DAILY [facility]; Protocol Stop: 10/16/18 23:59 Last Admin: 10/11/18 09:50 Dose: 40 mg Folic Acid (Folic Acid) 1 mg PO DAILY [facility] Last Admin: 10/11/18 09:48 Dose: 1 mg Furosemide (Lasix) 20 mg PO BID [facility] Last Admin: 10/11/18 09:48 Dose: 20 mg Home Med (Home Med) 1 unit PO DAILY [facility] Doxycycline Hyclate 100 mg/ (Sodium Chloride) 100 mls @ 100 mls/hr IVPB Q12 [facility]; Protocol Lisinopril (Zestril) 5 mg PO DAILY [facility] Last Admin: 10/11/18 09:48 Dose: 5 mg Methadone HCl (Methadone) 100 mg PO DAILY [facility] Last Admin: 10/11/18 09:47 Dose: 100 mg Methylprednisolone (Solu-Medrol) 40 mg IV Q12 [facility] Last Admin: 10/11/18 09:49 Dose: 40 mg Metoprolol Tartrate (Lopressor) 12.5 mg PO Q12 [facility] Last Admin: 10/11/18 09:48 Dose: 12.5 mg Mirtazapine (Remeron) 30 mg PO DAILY [facility] Last Admin: 10/11/18 09:49 Dose: 30 mg Pantoprazole Sodium (Protonix Ec Tab) 40 mg PO 0600 [facility] Last Admin: 10/11/18 05:43 Dose: 40 mg Physical Exam - Constitutional Appears: Non-toxic, No Acute Distress - Head Exam Head Exam: ATRAUMATIC, NORMAL INSPECTION, NORMOCEPHALIC - Respiratory Exam Respiratory Exam: Decreased Breath Sounds (b/l), NORMAL BREATHING PATTERN. absent: Rales, Rhonchi, Wheezes - Cardiovascular Exam Cardiovascular Exam: RRR, +S1, +S2 - GI/Abdominal Exam GI & Abdominal Exam: Normal Bowel Sounds, Soft. absent: Tenderness - Extremities Exam Extremities exam: Positive for: normal inspection. Negative for: calf tenderness, pedal edema - Neurological Exam Neurological exam: Alert, CN II-XII Intact, Oriented x3 - Psychiatric Exam Psychiatric exam: Normal Affect, Normal Mood - Skin Skin Exam: Dry, Intact, Warm Results - Vital Signs Recent Vital Signs: Last Vital Signs Temp 97.8 F 10/11/18 12:00 Pulse 100 H 10/11/18 12:00 Resp 19 10/11/18 12:00 BP 86/64 L 10/11/18 12:00 Pulse Ox 95 10/11/18 06:00 - Labs Result Diagrams: 10/10/18 16:59 10/10/18 16:59 Labs: Laboratory Results - last 24 hr 10/10/18 10/10/18 10/10/18 16:59 16:59 18:49 WBC 9.6 RBC 3.77 Hgb 9.6 L D Hct 31.4 L MCV 83.3 D MCH 25.5 MCHC 30.6 L RDW 16.7 H Plt Count 239 MPV 9.5 Gran % 68.1 H Lymph % (Auto) 18.4 L Love % (Auto) 7.4 H Eos % (Auto) 6.0 H Baso % (Auto) 0.1 Gran # 6.53 H Lymph # (Auto) 1.8 Love # (Auto) 0.7 H Eos # (Auto) 0.6 Baso # (Auto) 0.01 pCO2 47 H pO2 78.0 L HCO3 27.2 ABG pH 7.37 ABG Total CO2 28.6 H ABG O2 Saturation 97.0 ABG Base Excess 1.3 ABG Potassium 4.2 Glucose 93 Lactate 0.6 L FiO2 36.0 Sodium 138 137.0 Potassium 5.1 H Chloride 104 106.0 Carbon Dioxide 26 Anion Gap 12 BUN 19 Creatinine 0.8 Est GFR ( Amer) > 60 Est GFR (Non-Af Amer) > 60 Random Glucose 93 Calcium 9.2 Magnesium 1.8 Total Bilirubin 0.4 AST 43 H ALT 12 Alkaline Phosphatase 73 Troponin I 0.12 D NT-Pro-B Natriuret Pep 95594 H Total Protein 8.8 H Albumin 3.6 Globulin 5.2 Albumin/Globulin Ratio 0.7 L Arterial Blood Potassium 4.2 Influenza Typ A,B (EIA) 10/10/18 19:23 WBC RBC Hgb Hct MCV MCH MCHC RDW Plt Count MPV Gran % Lymph % (Auto) Love % (Auto) Eos % (Auto) Baso % (Auto) Gran # Lymph # (Auto) Love # (Auto) Eos # (Auto) Baso # (Auto) pCO2 pO2 HCO3 ABG pH ABG Total CO2 ABG O2 Saturation ABG Base Excess ABG Potassium Glucose Lactate FiO2 Sodium Potassium Chloride Carbon Dioxide Anion Gap BUN Creatinine Est GFR ( Amer) Est GFR (Non-Af Amer) Random Glucose Calcium Magnesium Total Bilirubin AST ALT Alkaline Phosphatase Troponin I NT-Pro-B Natriuret Pep Total Protein Albumin Globulin Albumin/Globulin Ratio Arterial Blood Potassium Influenza Typ A,B (EIA) Negative for flu a/b Assessment & Plan - Assessment and Plan (Free Text) Plan: COPD exacerbation AIDS, CD4 < 20 Pulmonary nodules, hx of aspergillosis Mycobacterium positive Liver biopsy Systolic CHF Plan Patient will be continued on Doxycycline for COPD exacerbation. Patient will need CD4 count and viral load to evaluate AIDS status. Patient will be continued on her home medication, Symtuza. She will also need to be placed on Mepron for PCP prophylaxis as she is allergic to Bactrim. She will need a CT chest to evaluate pulmonary nodules and history of aspergillosis. We will obtain a galactomannan. We will continue to monitor closely. Jacques, PGY-3 <Manpreet Granado - Last Filed: 10/11/18 16:10> Meds - Medications Medications: Current Medications Albuterol Sulfate (Albuterol 0.042% Inhal Donna (1.25mg/3ml) Ud) 1.25 mg IH DAILY PRN PRN Reason: Shortness of Breath Albuterol/Ipratropium (Duoneb 3 Mg/0.5 Mg (3 Ml) Ud) 3 ml IH QIDRESP [facility] Last Admin: 10/11/18 11:03 Dose: Not Given Arformoterol Tartrate (Brovana) 15 mcg IH [id number] [facility] Last Admin: 10/11/18 08:04 Dose: Not Given Ascorbic Acid (Vitamin C 500 Mg Tab) 500 mg PO DAILY [facility] Last Admin: 10/11/18 09:49 Dose: 500 mg Aspirin (Ecotrin) 81 mg PO DAILY [facility] Last Admin: 10/11/18 09:48 Dose: 81 mg Atovaquone (Mepron) 1,500 mg PO DAILY [facility]; Protocol Last Admin: 10/11/18 15:57 Dose: 1,500 mg Budesonide (Pulmicort Respules) 0.5 mg IH [id number] [facility] Last Admin: 10/11/18 08:04 Dose: Not Given Clonazepam (Klonopin) 0.5 mg PO TID PRN; Protocol PRN Reason: Anxiety Last Admin: 10/11/18 11:05 Dose: 0.5 mg Enoxaparin Sodium (Lovenox) 40 mg SC DAILY [facility]; Protocol Stop: 10/16/18 23:59 Last Admin: 10/11/18 09:50 Dose: 40 mg Folic Acid (Folic Acid) 1 mg PO DAILY [facility] Last Admin: 10/11/18 09:48 Dose: 1 mg Furosemide (Lasix) 20 mg PO BID [facility] Last Admin: 10/11/18 09:48 Dose: 20 mg Home Med (Home Med) 1 unit PO DAILY [facility] Doxycycline Hyclate 100 mg/ (Sodium Chloride) 100 mls @ 100 mls/hr IVPB Q12 [facility]; Protocol Last Admin: 10/11/18 15:00 Dose: 100 mls/hr Lisinopril (Zestril) 5 mg PO DAILY [facility] Last Admin: 10/11/18 09:48 Dose: 5 mg Methadone HCl (Methadone) 100 mg PO DAILY [facility] Last Admin: 10/11/18 09:47 Dose: 100 mg Methylprednisolone (Solu-Medrol) 40 mg IV Q12 [facility] Last Admin: 10/11/18 09:49 Dose: 40 mg Metoprolol Tartrate (Lopressor) 12.5 mg PO Q12 [facility] Last Admin: 10/11/18 09:48 Dose: 12.5 mg Mirtazapine (Remeron) 30 mg PO DAILY [facility] Last Admin: 10/11/18 09:49 Dose: 30 mg Pantoprazole Sodium (Protonix Ec Tab) 40 mg PO 0600 [facility] Last Admin: 10/11/18 05:43 Dose: 40 mg Results - Vital Signs Recent Vital Signs: Last Vital Signs Temp 97.8 F 10/11/18 12:00 Pulse 100 H 10/11/18 12:00 Resp 19 10/11/18 12:00 BP 86/64 L 10/11/18 12:00 Pulse Ox 95 10/11/18 06:00 - Labs Result Diagrams: 10/10/18 16:59 10/10/18 16:59 Labs: Laboratory Results - last 24 hr 10/10/18 10/10/18 10/10/18 16:59 16:59 18:49 WBC 9.6 RBC 3.77 Hgb 9.6 L D Hct 31.4 L MCV 83.3 D MCH 25.5 MCHC 30.6 L RDW 16.7 H Plt Count 239 MPV 9.5 Gran % 68.1 H Lymph % (Auto) 18.4 L Love % (Auto) 7.4 H Eos % (Auto) 6.0 H Baso % (Auto) 0.1 Gran # 6.53 H Lymph # (Auto) 1.8 Love # (Auto) 0.7 H Eos # (Auto) 0.6 Baso # (Auto) 0.01 pCO2 47 H pO2 78.0 L HCO3 27.2 ABG pH 7.37 ABG Total CO2 28.6 H ABG O2 Saturation 97.0 ABG Base Excess 1.3 ABG Potassium 4.2 Glucose 93 Lactate 0.6 L FiO2 36.0 Sodium 138 137.0 Potassium 5.1 H Chloride 104 106.0 Carbon Dioxide 26 Anion Gap 12 BUN 19 Creatinine 0.8 Est GFR ( Amer) > 60 Est GFR (Non-Af Amer) > 60 Random Glucose 93 Calcium 9.2 Magnesium 1.8 Total Bilirubin 0.4 AST 43 H ALT 12 Alkaline Phosphatase 73 Troponin I 0.12 D NT-Pro-B Natriuret Pep 04329 H Total Protein 8.8 H Albumin 3.6 Globulin 5.2 Albumin/Globulin Ratio 0.7 L Arterial Blood Potassium 4.2 Influenza Typ A,B (EIA) 10/10/18 19:23 WBC RBC Hgb Hct MCV MCH MCHC RDW Plt Count MPV Gran % Lymph % (Auto) Love % (Auto) Eos % (Auto) Baso % (Auto) Gran # Lymph # (Auto) Love # (Auto) Eos # (Auto) Baso # (Auto) pCO2 pO2 HCO3 ABG pH ABG Total CO2 ABG O2 Saturation ABG Base Excess ABG Potassium Glucose Lactate FiO2 Sodium Potassium Chloride Carbon Dioxide Anion Gap BUN Creatinine Est GFR ( Amer) Est GFR (Non-Af Amer) Random Glucose Calcium Magnesium Total Bilirubin AST ALT Alkaline Phosphatase Troponin I NT-Pro-B Natriuret Pep Total Protein Albumin Globulin Albumin/Globulin Ratio Arterial Blood Potassium Influenza Typ A,B (EIA) Negative for flu a/b Assessment & Plan - Assessment and Plan (Free Text) Plan: Infectious diseases Attending Physician Attestation Patient seen and examined, discussed with medical malpractice paralegal. I have reviewed the patient's history of present illness, past medical, social, personal and family histories, pertinent physical exam findings, course so far in this hospital admission, pertinent laboratory and imaging results. I agree with the above findings, assessment and plan. In addition, will continue cART (patient's own supply of Symtuza) for HIV/AIDS. Patient with probable acute COPD exacerbation - continue Doxycycline. Will need to get CT chest since she had pulmonary nodules in 2017. Will need to get CD4 count and virus load. Unable to use Zithromax for ARCELIA prophylaxis since she is allergic to PCN. Will get Galactomannan levels in the blood. Will use Mepron for PJP prophylaxis.
--- NOTE | 2018-10-11 13:43 | CON ---
PULMONARY CONSULTATION NOTE DATE: 10/11/2018 REFERRING PHYSICIAN: Macario Carter MD REASON FOR CONSULT: Shortness of breath and chronic lung disease. HISTORY OF PRESENT ILLNESS: This is a 38-year-old female well known to us from previous admissions. The patient does not followup in the office. The patient has a known history of substance abuse in the past, AIDS, chronic obstructive lung disease, active smoker, methadone dependant, history of hepatitis C, asthma, CHF with ejection fraction of 35% noted on March 2018. The patient has oxygen at home at 5 L. The patient presented to emergency room due to complains of shortness of breath which she states has been happening over the past two weeks. Today, the patient reports that she does have productive cough and does have shortness of breath, feeling slightly better. PAST MEDICAL HISTORY: As per history of present illness. SOCIAL HISTORY: Active smoker, denies EtOH abuse. History of heroin abuse. ALLERGIES: LEVAQUIN, PENICILLIN, BACTRIM, ZITHROMAX AND FLEXERIL. MEDICATIONS: Albuterol sulfate 1.25 mg inhalation daily p.r.n., DuoNeb 3 mL inhalation four times a day, Brovana 15 mcg inhalation every 12 hours, vitamin C 500 mg p.o. daily, aspirin 81 mg p.o. daily, Pulmicort 0.5 mg inhalation every 12 hours, Klonopin 0.5 mg three times a day p.r.n., Lovenox 40 mg subcutaneous daily, folic acid 1 mg p.o. daily, Lasix 20 mg p.o. twice a day, lisinopril 5 mg p.o. daily, methadone 100 mg p.o. daily, Solu-Medrol 40 mg every 12 hours, metoprolol tartrate 12.5 mg every 12 hours, Remeron 30 mg daily and Protonix 40 mg daily. REVIEW OF SYSTEMS: No headache, rhinitis, chest pain, abdominal pain, nausea, vomiting, diarrhea, leg pain or leg swelling reported. The patient does report shortness of breath. Does report productive cough. PHYSICAL EXAMINATION: VITAL SIGNS: Blood pressure 111/44, pulse 90, temperature 97.8, and oxygen saturation 95% on nasal cannula. HEENT: Moist mucous membranes. NECK: Supple. No JVD. LUNGS: Crackles to bilateral bases. CARDIOVASCULAR: S1 and S2 audible. ABDOMEN: Soft and nontender. No distention. No organomegaly. EXTREMITIES: No bilateral lower extremity edema. NEUROLOGIC: Awake, alert and verbal. Follows commands. LABORATORY DATA: Reviewed. WBC 9.6, RBC 3.77, hemoglobin 9.6, hematocrit 31.4 and platelets 239. PCO2 of 47, pO2 of 78, HCO3 of 27.2 and ABG pH 7.37. Sodium 138, potassium 5.1, chloride 104, carbon dioxide 26, anion gap 12, BUN 19, creatinine 0.9, GFR is greater than 60, random glucose 93, calcium 9.2, magnesium 1.8, total bilirubin 0.4, AST 43, ALT 12, alkaline phosphatase 73, troponin 0.12, proBNP 03085, total protein 8.8, albumin 3.6, globulin 5.2 and albumin-globulin ratio 0.7. Arterial blood potassium 4.2. Influenza type A and B negative. DIAGNOSTIC DATA: Chest x-ray shows no active disease. Electrocardiogram shows sinus tachycardia. IMPRESSION AND PLAN: Severe obstructive lung disease, history of acquired immune deficiency syndrome. The patient has history of Pneumocystis carinii pneumonia, methadone dependent, renal insufficiency, asthma, congestive heart failure. Continue diuretics, continue gastric prophylaxis and deep venous thrombosis prophylaxis. Recommend followup with Infectious disease. We will order psychiatry consultation. Patient requesting to speak to the psychiatrist. We will order labs in the morning. Continue inhaled bronchodilators, continue steroids, continue supplement oxygen, and diuretics. This patient was seen and examined with Dr. Barajas. Discussed assessment and plan as described above. Thank you for this consult and we will follow with you. Jose Johnson APN Cara Barajas MD KATHERINE
[2018-10-11] MEDS: Atovaquone 750 mg/5 ml Susp UD PO SCH (15:57)
--- NOTE | 2018-10-11 21:23 | CON ---
DATE: 10/11/2018 SERVICE: Cardiology. REASON FOR THE CONSULTATION: Cardiac evaluation for congestive heart failure, admitted with pneumonia, history of HIV and AIDS. BRIEF CLINICAL HISTORY: This is a 38-year-old female, very poor compliant patient, known history of HIV, AIDS, CD4 count 20, history of CMV, history of HSV, history of EBV, history of asthma, substance abuse, history of Mycobacterium in liver biopsy on , came in with complaint of shortness of breath, possible pneumonia. Cardiology consult was called for evaluation for congestive heart failure. The patient denies any chest pain, denies any palpitation, though complained of some shortness of breath. PAST MEDICAL HISTORY: Significant for HIV positive, AIDS, CD4 count 20, noncompliant, history of CMV positive, history of HSV, history of COPD, history of EBV, history of HIV, history of substance abuse, asthma, heroin abuse, and Mycobacterium positive on liver biopsy. PAST SURGICAL HISTORY: Significant for drainage of abscess on the right side of the neck, history of liver biopsy as mentioned. SOCIAL HISTORY: Former smoker, one pack for 20 years. Denies any history of alcohol abuse. History of heroin abuse in the past. ALLERGIES: BACTRIM, LEVAQUIN, PENICILLIN, AZITHROMYCIN, AND FLEXERIL. CURRENT MEDICATIONS AT HOME: The patient was taking clonazepam, Remeron, metoprolol, methadone, lisinopril 5 mg, folic acid, ascorbic acid, albuterol, Norvir, methylprednisolone, Megace, etc. PREVIOUS CARDIAC WORKUP: As follows; history of cardiomyopathy. Most recent echo on 04/14/2018 shows ejection fraction 35%, trace aortic regurgitation, trace mitral regurgitation, mild tricuspid regurgitation, and trace pericardial effusion. REVIEW OF SYSTEMS: As per HPI. PHYSICAL EXAMINATION: VITAL SIGNS: Height of the patient is 5 feet 7 inches, weight of the patient is 101 pounds, and body mass index 16 kg/m2. Rest of the vitals; temperature afebrile, heart rate 91, and blood pressure 109/54. HEENT: PERRLA. Extraocular muscles intact. NECK: Supple. No carotid bruit or thyromegaly. CHEST: Clear to auscultation. HEART: S1 and S2 regular. ABDOMEN: Soft. EXTREMITIES: Clubbing and cyanosis negative. LABORATORY DATA: Blood workup as follows: WBC is 9.6, hemoglobin 9.6, hematocrit 31.4, and platelet count 239. Sodium 130, potassium 5.1, chloride 104, carbon dioxide 26, anion gap of 12, BUN 19, and creatinine 0.8. BNP 10,030. Troponin 0.1. EKG showed normal sinus, suggestive of right ventricular conduction delay. IMPRESSION: A 38-year-old female with acquired immunodeficiency syndrome, human immunodeficiency virus, CD4 count 20 on 03/11/2018, Brian-Coker virus, cytomegalovirus, herpes simplex virus positive, chronic obstructive pulmonary disease positive, history of Mycobacterium in liver biopsy. Most recent echo on 04/14/2018, ejection fraction 35%, trace aortic regurgitation, trace tricuspid regurgitation, and mild mitral regurgitation. Borderline troponin positive, multiple admissions, no evidence of ischemia, probably secondary to human immunodeficiency virus related cardiomyopathy, admitted with pneumonia and chest x-ray with mild pulmonary congestion, but no definite congestive heart failure, could be secondary to fluid overload mostly secondary to underlying sepsis and human immunodeficiency virus related cardiomyopathy, but no evidence of a flash pulmonary edema, though the patient had elevated BNP. RECOMMENDATIONS: Since the patient has troponin positive and asymptomatic, we will treat medically. Continue anti-HIV medication. Continue baby aspirin. Continue Lasix 20 mg 3 times a day as blood pressure is tolerated. We will treat symptomatically. Continue DVT prophylaxis. We will follow with you. Thank you Dr. Carter for providing us the opportunity in taking care of the patient, Veronica Ruiz. Cara Veliz MD
[2018-10-12] MEDS: Pantoprazole 40 mg EC Tab PO SCH (06:12)
[2018-10-12] MEDS: Arformoterol 15 mcg/2 ml Inh Sol IH SCH ×2 (07:28→19:25)
[2018-10-12] MEDS: Albuterol-Ipratrop 3 mg / 0.5 (3 ml) UD IH SCH ×4 (07:28→19:26)
[2018-10-12] MEDS: Budesonide 0.5 mg/2 ml Inhal Susp UD IH SCH ×2 (07:28→19:26)
[2018-10-12] MEDS ORDERED: Iohexol 300 100 ML IJ ONE (07:54)
--- NOTE | 2018-10-12 09:57 | CT ---
Date of service: 10/12/2018 PROCEDURE: CT Chest without contrast HISTORY: pulmonary nodules COMPARISON: 08/12/2018 TECHNIQUE: Contiguous axial images were obtained through the chest without intravenous contrast enhancement. Sagittal and coronal reconstructions were performed. Radiation dose: Total exam DLP = 165.07 mGy-cm. This CT exam was performed using one or more of the following dose reduction techniques: Automated exposure control, adjustment of the mA and/or kV according to patient size, and/or use of iterative reconstruction technique. FINDINGS: LUNGS: Redemonstration of numerous bilateral pulmonary a regular nodules all of which predominantly have markedly decreased in size. Bibasilar traits also significantly decrease compared to the prior examination. Resolution of bilateral pleural effusions. MEDIASTINUM: Unremarkable thoracic aorta. No aneurysm. Normal sized heart. Small pericardial effusion. Calcified mediastinal lymphadenopathy. No aortic atherosclerotic calcification. PLEURA: No pleural fluid. No pneumothorax. BONES: No fracture. No destructive lesion. UPPER ABDOMEN: Grossly unremarkable. OTHER FINDINGS: None. IMPRESSION: Redemonstration of numerous bilateral pulmonary a regular nodules all of which predominantly have markedly decreased in size. Bibasilar traits also significantly decrease compared to the prior examination. Resolution of bilateral pleural effusions. Small pericardial effusion. Recommend follow-up.
[2018-10-12] MEDS: MethylPREDNISolone 40 mg Vial IV SCH ×2 (10:58→22:09)
[2018-10-12] MEDS: SYMTUZA PO SCH (10:59)
[2018-10-12] MEDS: Atovaquone 750 mg/5 ml Susp UD PO SCH (10:59)
[2018-10-12] MEDS: Enoxaparin 40 mg Syringe SC SCH (11:00)
--- NOTE | 2018-10-12 14:02 | PN ---
DATE: 10/12/2018 PULMONARY PROGRESS NOTE REFERRING PHYSICIAN: Macario Carter MD SUBJECTIVE: The patient is sitting up in bed. No acute distress noted. No overnight events reported. The patient reports just feeling weak, reports shortness of breath and cough continues. No headache, rhinitis, chest pain, abdomina pain, nausea, vomiting, diarrhea, leg pain and leg swelling reported. OBJECTIVE: GENERAL: No acute distress. VITAL SIGNS: Blood pressure 80/56, pulse 81, temperature 98.6 and oxygen saturation 95%. HEENT: Moist mucous membranes. NECK: Supple. No JVD. RESPIRATORY: Lungs, few rhonchi bilaterally. CARDIOVASCULAR: S1 and S2 audible. ABDOMEN: Soft and nontender. No distention. No organomegaly. EXTREMITIES: No bilateral lower extremity edema. NEUROLOGIC: Awake, alert, verbal. Follows simple commands. MEDICATIONS: Reviewed. Albuterol 1.25 mg inhalation daily p.r.n., DuoNeb 3 mL inhalation four times a day, Brovana 15 mcg every 12 hours, vitamin C 500 mg daily, aspirin 81 mg daily, Mepron 1500 mg daily, Pulmicort 0.5 mg inhalation every 12 hours, Klonopin 0.5 mg p.o. three times a day p.r.n., doxycycline 100 mg every 12 hours, Lovenox 40 mg daily, folic acid 1 mg daily, Lasix 40 mg twice a day, lisinopril 5 mg daily, methadone 100 mg daily, Solu-Medrol 40 mg every 12 hours, metoprolol tartrate 12.5 mg every 12 hours, Remeron 30 mg daily, and Protonix 40 mg daily. LABORATORY DATA: Reviewed. No new labs. DIAGNOSTIC DATA: Chest CT shows free demonstration of numerous bilateral pulmonary irregular nodules, all of which predominately have markedly decreased in size, bibasilar also significantly decreased compared to the prior examination, resolution of bilateral pleural effusions, small pericardial effusion. IMPRESSION AND PLAN: Severe obstructive lung disease, history of acquired immune deficiency syndrome, history of pneumocystis carinii pneumonia, methadone dependent, renal insufficiency, asthma, congestive heart failure. From pulmonary point of view, decreasing pulmonary nodules may represent some sort of inflammatory disease or pneumonia resolving. The patient will need followup CT scan in three months to follow up on nodules and effusion. We will decrease the patient's Lasix from twice a day to daily. The patient noted with hypotension this morning. Continue followup with Infectious Disease. Continue gastric prophylaxis and deep venous thrombosis prophylaxis. Continue inhale bronchodilators, steroids, antibiotic therapy. This patient was seen and examined with Dr. Barajas. Discussed assessment and plan as described above. Thank you for this consult. We will follow with you. Jose Johnson APN Cara Barajas MD KATHERINE
--- NOTE | 2018-10-12 14:18 | PN ---
DATE: 10/12/2018 REASON FOR CONSULTATION: Followup, cardiac evaluation for congestive heart failure, admitted with pneumonia, history of HIV and AIDS. SUBJECTIVE: The patient denies any chest pain, shortness of breath, or any palpitation. She feels a lot better . PHYSICAL EXAMINATION: GENERAL: Not in apparent distress. VITAL SIGNS: Temperature 100.2, heart rate 99, blood pressure 82/56. HEENT: PERRLA. Extraocular muscles intact. NECK: Supple. No carotid bruit or thyromegaly. CHEST: Clear to auscultation. HEART: S1 and S2 regular. ABDOMEN: Soft. EXTREMITIES: Clubbing and cyanosis negative. LABORATORY DATA: WBC is 9.6, hemoglobin 9.6, hematocrit 31.4, and platelet count 239. Chemistry showed sodium of 130, potassium 5, chloride 104, carbon dioxide 24, anion gap of 12, BUN 19, and creatinine 0.9, BNP 58241. 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 RECOMMENDATION: Continue aggressive treatment for COPD. Continue baby aspirin. Continue Lasix at 20 mg p.o. as blood pressure is tolerated, continue low dose beta-nicolle. Continue DVT prophylaxis. Overall, the patient's critical long-term prognosis is guarded. We will put lisinopril on hold because of the low blood pressure. Discontinue telemetry. Thank you Dr. Carter for providing us the opportunity in taking care of the patient, Veronica Ruiz. Cara Veliz MD
--- NOTE | 2018-10-12 14:37 | CP.PCM.PN ---
<Gatito Hanna - Last Filed: 10/12/18 14:32> Subjective - Date & Time of Evaluation Date of Evaluation: 10/12/18 Time of Evaluation: 09:00 - Subjective Subjective: ID progress note Patient states she has had improvement in her breathing status. Patient denies chest pain, nausea, vomiting, diarrhea, fever, chills. Objective - Vital Signs/Intake and Output Vital Signs (last 24 hours): Temp Pulse Resp BP Pulse Ox 97.1 F L 76 19 81/54 L 95 10/12/18 12:00 10/12/18 12:00 10/12/18 12:00 10/12/18 12:00 10/12/18 06:00 Intake and Output: 10/12/18 10/12/18 06:59 18:59 Intake Total 340 Output Total 0 Balance 340 - Medications Medications: Current Medications Albuterol Sulfate (Albuterol 0.042% Inhal Donna (1.25mg/3ml) Ud) 1.25 mg IH DAILY PRN PRN Reason: Shortness of Breath Albuterol/Ipratropium (Duoneb 3 Mg/0.5 Mg (3 Ml) Ud) 3 ml IH QIDRESP [facility] Last Admin: 10/12/18 11:10 Dose: Not Given Arformoterol Tartrate (Brovana) 15 mcg IH [id number] [facility] Last Admin: 10/12/18 07:28 Dose: Not Given Ascorbic Acid (Vitamin C 500 Mg Tab) 500 mg PO DAILY [facility] Last Admin: 10/12/18 10:58 Dose: 500 mg Aspirin (Ecotrin) 81 mg PO DAILY [facility] Last Admin: 10/12/18 10:59 Dose: 81 mg Budesonide (Pulmicort Respules) 0.5 mg IH [id number] [facility] Last Admin: 10/12/18 07:28 Dose: Not Given Clonazepam (Klonopin) 0.5 mg PO TID PRN; Protocol PRN Reason: Anxiety Last Admin: 10/11/18 22:24 Dose: 0.5 mg Enoxaparin Sodium (Lovenox) 40 mg SC DAILY [facility]; Protocol Stop: 10/16/18 23:59 Last Admin: 10/12/18 11:00 Dose: 40 mg Folic Acid (Folic Acid) 1 mg PO DAILY [facility] Last Admin: 10/12/18 10:58 Dose: 1 mg Furosemide (Lasix) 20 mg PO DAILY [facility] Home Med (Home Med) 1 unit PO DAILY [facility] Last Admin: 10/12/18 10:59 Dose: 1 unit Doxycycline Hyclate 100 mg/ (Sodium Chloride) 100 mls @ 100 mls/hr IVPB Q12 [facility]; Protocol Last Admin: 10/12/18 11:00 Dose: 100 mls/hr Lisinopril (Zestril) 5 mg PO DAILY [facility] Last Admin: 10/12/18 11:15 Dose: Not Given Methadone HCl (Methadone) 100 mg PO DAILY [facility] Last Admin: 10/12/18 11:15 Dose: Not Given Methylprednisolone (Solu-Medrol) 40 mg IV Q12 [facility] Last Admin: 10/12/18 10:58 Dose: 40 mg Metoprolol Tartrate (Lopressor) 12.5 mg PO Q12 [facility] Last Admin: 10/12/18 11:14 Dose: Not Given Mirtazapine (Remeron) 30 mg PO DAILY [facility] Last Admin: 10/12/18 10:58 Dose: 30 mg Pantoprazole Sodium (Protonix Ec Tab) 40 mg PO 0600 [facility] Last Admin: 10/12/18 06:12 Dose: 40 mg - Labs Labs: 10/10/18 16:59 10/10/18 16:59 - Constitutional Appears: Non-toxic, No Acute Distress - Head Exam Head Exam: ATRAUMATIC, NORMAL INSPECTION, NORMOCEPHALIC - Cardiovascular Exam Cardiovascular Exam: RRR, +S1, +S2 - GI/Abdominal Exam GI & Abdominal Exam: Soft, Normal Bowel Sounds. absent: Tenderness - Extremities Exam Extremities Exam: Normal Inspection. absent: Pedal Edema - Neurological Exam Neurological Exam: Alert, Awake, Oriented x3 - Psychiatric Exam Psychiatric exam: Normal Affect, Normal Mood - Skin Skin Exam: Intact, Normal Color, Warm Assessment and Plan - Assessment and Plan (Free Text) Plan: COPD exacerbation AIDS, CD4 < 20 Pulmonary nodules, hx of aspergillosis Mycobacterium positive Liver biopsy Systolic CHF Plan Continue Doxycycline Continue Mepron and Symtuza CT chest demonstrates pulmonary nodules, decreased in size Consider needle biopsy to evaluate etiology CD4 count and viral load pending Galacomannan pending Will also obtain Fungitell, Histoplasma antigen, and Crypto serum antigen Jacques, PGY-3 <Manpreet Granado S - Last Filed: 10/12/18 16:34> Objective - Vital Signs/Intake and Output Vital Signs (last 24 hours): Temp Pulse Resp BP Pulse Ox 97.1 F L 76 19 81/54 L 95 10/12/18 12:00 10/12/18 12:00 10/12/18 12:00 10/12/18 12:00 10/12/18 06:00 Intake and Output: 10/12/18 10/12/18 06:59 18:59 Intake Total 340 Output Total 0 Balance 340 - Medications Medications: Current Medications Albuterol Sulfate (Albuterol 0.042% Inhal Donna (1.25mg/3ml) Ud) 1.25 mg IH DAILY PRN PRN Reason: Shortness of Breath Albuterol/Ipratropium (Duoneb 3 Mg/0.5 Mg (3 Ml) Ud) 3 ml IH QIDRESP [facility] Last Admin: 10/12/18 11:10 Dose: Not Given Arformoterol Tartrate (Brovana) 15 mcg IH [id number] [facility] Last Admin: 10/12/18 07:28 Dose: Not Given Ascorbic Acid (Vitamin C 500 Mg Tab) 500 mg PO DAILY [facility] Last Admin: 10/12/18 10:58 Dose: 500 mg Aspirin (Ecotrin) 81 mg PO DAILY [facility] Last Admin: 10/12/18 10:59 Dose: 81 mg Budesonide (Pulmicort Respules) 0.5 mg IH [id number] [facility] Last Admin: 10/12/18 07:28 Dose: Not Given Clonazepam (Klonopin) 0.5 mg PO TID PRN; Protocol PRN Reason: Anxiety Last Admin: 10/11/18 22:24 Dose: 0.5 mg Enoxaparin Sodium (Lovenox) 40 mg SC DAILY [facility]; Protocol Stop: 10/16/18 23:59 Last Admin: 10/12/18 11:00 Dose: 40 mg Folic Acid (Folic Acid) 1 mg PO DAILY [facility] Last Admin: 10/12/18 10:58 Dose: 1 mg Furosemide (Lasix) 20 mg PO DAILY [facility] Home Med (Home Med) 1 unit PO DAILY [facility] Last Admin: 10/12/18 10:59 Dose: 1 unit Doxycycline Hyclate 100 mg/ (Sodium Chloride) 100 mls @ 100 mls/hr IVPB Q12 [facility]; Protocol Last Admin: 10/12/18 11:00 Dose: 100 mls/hr Lisinopril (Zestril) 5 mg PO DAILY [facility] Last Admin: 10/12/18 11:15 Dose: Not Given Methadone HCl (Methadone) 100 mg PO DAILY [facility] Last Admin: 10/12/18 11:15 Dose: Not Given Methylprednisolone (Solu-Medrol) 40 mg IV Q12 [facility] Last Admin: 10/12/18 10:58 Dose: 40 mg Metoprolol Tartrate (Lopressor) 12.5 mg PO Q12 [facility] Last Admin: 10/12/18 11:14 Dose: Not Given Mirtazapine (Remeron) 30 mg PO HS [facility] Pantoprazole Sodium (Protonix Ec Tab) 40 mg PO 0600 [facility] Last Admin: 10/12/18 06:12 Dose: 40 mg - Labs Labs: 10/10/18 16:59 10/10/18 16:59 Assessment and Plan - Assessment and Plan (Free Text) Plan: Infectious diseases Attending Physician Attestation Patient seen and examined, discussed with medical safety director. I have reviewed the patient's history of present illness, past medical, social, personal and family histories, pertinent physical exam findings, course so far in this hospital admission, pertinent laboratory and imaging results. I agree with the above findings, assessment and plan. In addition, reviewed CT chest - pulmonary nodules are still present but diminished in size. Will get serum Crypt Ag, Galactommanan and Fungitell and will discuss with Pulmonary. Continue Doxycycline for acute on chronic bronchitis. Continue PJP prophylaxis and cART for HIV/AIDS.
[2018-10-12 18:57] LABS: % CD4 (T HELPER CELL) 2 Percent (30-61); % CD8 (SUPPRESSOR T CELL) 79 Percent (12-42); ABSOLUTE CD4 CELLS <20 Cells/mcL (490-1740); ABSOLUTE CD8 CELLS 500 Cells/mcL (180-1170); ABSOLUTE LYMPHOCYTES 633 Cells/mcL (850-3900); HELPER/SUPPRESSOR RATIO 0.02 Ratio (0.86-5.00)
[2018-10-12] MEDS: Sodium Chloride 0.9% 1,000 ML IV SCH (20:17)
[2018-10-12] MEDS ORDERED: Sodium Chloride 0.9% 500 ML IV STA ×2 (20:25→21:54)
--- NOTE | 2018-10-12 20:30 | CON ---
DATE OF CONSULTATION: 10/12/2018 HISTORY OF PRESENT ILLNESS: Shortly, the patient is a 38-year-old female with multiple medical issues, HIV, COPD, asthma, heroin abuse, CHF with ejection fraction of 35. The patient was admitted on the medical side for evaluation of shortness of breath. Psych consult was called for evaluation of anxiety and depression. This investment underwriter is very familiar with this patient from the previous admission on the medical side. The patient reported that she [facility]. The patient reported that at present moment she is very depressed. She is on Remeron as well as on Klonopin. The patient reported that she fills her medication in [facility]. Medical student help appreciated. The patient was on Klonopin 0.5 mg three times a day. The patient filled that medication on 09/25/2018. Prescriber is Dr. Carter. Going back to the patient's presentation, the patient reported that she feels depressed and hopeless. The patient reported that she has poor appetite and sleep. Denied hearing voices, denied seeing things. The patient has tendency of refusing breathing treatment, but other than that the patient is calm and cooperative. The patient also reported that [facility] and she is on 100 mg of methadone daily, which was confirmed and resumed. VITAL SIGNS: Reviewed. MEDICATIONS: Reviewed. Methadone was resumed. Remeron will be given 30 mg at the nighttime as well as the patient is on Klonopin 0.5 mg three times a day. LABS: Reviewed. Most recent was from today. MENTAL STATUS EXAMINATION: The patient presented to be alert and oriented. Mood described as depressed and anxious. Affect was tearful and mood congruent. Thought process seems to be coherent and goal directed. Thought content, the patient denied visual, auditory or tactile hallucinations. Denied paranoid ideation. The patient does not present to be psychotic, but depressed. Insight and judgment seem to be limited. Impulses are well controlled. IMPRESSION AND PLAN: Rule out major depressive disorder, rule out mood disorder due to general medical condition. Klonopin was resumed. Remeron will switch at the nighttime. Methadone was resumed. We will follow up and advise accordingly. Continue current management and continue current care. Celia Cho MD [facility] # [id number] [facility]
[2018-10-13 04:46] LABS: ALB/GLOB RATIO 0.6 (1.1-1.8); ALBUMIN 2.6 g/dL (3.0-4.8); CALCIUM 7.6 mg/dL (8.4-10.5)
[2018-10-13] MEDS: Pantoprazole 40 mg EC Tab PO SCH (05:09)
--- NOTE | 2018-10-13 06:41 | CP.PCM.CON ---
<Balbir Medina - Last Filed: 10/13/18 06:05> History of Present Illness - History of Present Illness History of Present Illness: Balbir Medina Internal Medicine Resident- Consult Note on Behalf of Critical Care Team Subjective: CC: Hypotension HPI: Patient is a 38 year old female with past medical history of HIV with CD4<20 on 03/11/18, EBV, CMV, HSV, COPD, asthma, heroin abuse, systolic CHF who was admitted to the hospital for evaluation and treatment of shortness of breath. Critical care team was consulted for management for of consistently low blood pressures. Patient seen and examined at bedside. Patient admits to baseline back pain. Offers no new complaints at this time. Denies fever, chills, chest pain, SOB, palpitations, abdominal pain, nausea, vomiting, diarrhea, constipation, and urinary symptoms. 12 point ROS negative except as indicated in HPI Past Medical History: HIV with CD4<20 on 03/11/18, EBV, CMV, HSV, COPD, asthma, heroin abuse, systolic CHF Past Surgical History: right anterior neck surgery for abscess I and D Allergies: bactrim, levofloaxicin, penicillin, azithromycin, flexeril Social History: IVDA, former smoker of 1 ppd for 20 years. Denies alcohol use. Medications: please See DEC PMD: Dr. Carter ID: Dr. Trevizo [facility]: [facility] Insurance: [facility] Medicaid Physical Examination: - Constitutional Appears: cachectic, chronically ill - Head Exam Head Exam: ATRAUMATIC, NORMAL INSPECTION, NORMOCEPHALIC - Eye Exam Eye Exam: EOMI, Normal appearance, PERRL - ENT Exam ENT Exam: Mucous Membranes Dry, Normal Exam - Neck Exam Neck exam: Positive for: Normal Inspection - Respiratory Exam Respiratory Exam: Clear to auscultation bilateral, normal breathing pattern, no respiratory distress, no accessory muscle use, decreased Breath Sounds - Cardiovascular Exam Cardiovascular Exam: REGULAR RHYTHM, +S1, +S2. absent: Gallop, JVD, Rubs - GI/Abdominal Exam GI & Abdominal Exam: Normal Bowel Sounds, Soft. absent: Tenderness - Back Exam Back exam: NORMAL INSPECTION - Neurological Exam Neurological exam: AAOx 3, patient is responds to verbal stimuli, follows commands, moves extremities past midline, CN II- XII intact bilaterally, muscle strength is 5/5 bilateral upper and lower extremities, sensation is intact to touch throughout, no dysmetria - Psychiatric Exam Psychiatric exam: Normal Affect, Normal Mood - Skin Skin Exam: Dry, Intact, Normal Color, War Assessment and Plan: Patient is a 38 year old female with past medical history of HIV with CD4<20 on 03/11/18, EBV, CMV, HSV, COPD, asthma, heroin abuse, CHF with LVEF=35% who was admitted to the hospital for evaluation and treatment of shortness of breath. Critical care team was consulted for management for of consistently low blood pressures. Neuro - AAO x 3 - GCS [id number] Cardiovascular: Systolic CHF, Hypotensive - 08/05/2018 Echocardiogram LVEF 45%, global hypokinesis, no vegitation, moderate pulmonary hypertension - hold lasix, lisinopril, and lopressor - avoid opiates and benzodiazepines- methadone as per primary - IVF NS @ 500 NS x 2 & IVF NS @ 75 cc/hr- blood pressure responded to 90s/70s on multiple reads- does not require pressor support at this time Resp: COPD - continue brovana, pulmicort, duonebs, and solumedrol - continue albuterol prn - supp O2 prn - maintain SaO2 >92% GI GI ppx: - protonix 40mg PO daily Renal Electrolyte Abnormalities - monitor lytes via CMP - replete as needed ID HIV/AIDs - management as per ID- Continue Doxycycline, Mepron and Symtuza Heme DVT Ppx - continue lovenox 40mg SC Patient case discussed with and plan approved by attending physician, Dr. Gustafson Past Patient History - Infectious Disease Hx of Infectious Diseases: None - Tetanus Immunizations Tetanus Immunization: Unknown - Past Social History Smoking Status: Light Smoker < 10 Cigarettes Daily - CARDIAC Hx Pacemaker: No - PULMONARY Hx Respiratory Disorders: Yes Hx Asthma: Yes Hx Bronchitis: Yes Hx Chronic Obstructive Pulmonary Disease (COPD): Yes Hx Emphysema: No Hx Pneumonia: Yes Hx Respiratory Aspiration: No Hx Respiratory Tract Infection: No Hx Sleep Apnea: No Hx Tuberculosis: No - NEUROLOGICAL Hx Neurological Disorder: Yes Hx Alzheimer's Disease: No HX Cerebrovascular Accident: No Hx Dementia: No Hx Dizziness: Yes Hx Meningitis: No Hx Migraine: Yes Hx Parkinson's Disease: No Hx Seizures: No Hx Transient Ischemic Attacks (TIA): No - HEENT Hx HEENT Problems: No Hx Blind: No Hx Cataracts: No Hx Deafness: No Hx Difficulty Chewing: No Hx Epistaxis: No Hx Glaucoma: No Hx Macular Degeneration: No - RENAL Hx Chronic Kidney Disease: No Hx Dialysis: No Hx Kidney Stones: No Hx Neurogenic Bladder: No Hx Pyelonephritis: No Hx Renal (Kidney) Cancer: No Hx Renal Failure: No - ENDOCRINE/METABOLIC Hx Endocrine Disorders: No Hx Adrenal Cancer: No Hx Diabetes Insipidus: No Hx Diabetes Mellitus Type 1: No Hx Diabetes Mellitus Type 2: No Hx Hyperthyroidism: No Hx Hypothyroidism: No Hx Systemic Lupus Erythematosus: No - HEMATOLOGICAL/ONCOLOGICAL Hx Cancer: No - INTEGUMENTARY Hx Dermatological Problems: No Hx Basil Cell: No Hx Eczema: No Hx Melanoma: No Hx Psoriasis: No Hx Squamous Cell: No - MUSCULOSKELETAL/RHEUMATOLOGICAL Hx Musculoskeletal Disorders: Yes Hx Arthritis: Yes Hx Back Pain: Yes Hx Degenerative Joint Disease: No Hx Falls: No Hx Fractures: No Hx Gout: No Hx Herniated Disk: No Hx Myasthenia Gravis: No Hx Osteoarthritis: No Hx Osteomyelitis: No Hx Osteoporosis: No Hx Rhabdomyolysis: No Hx Spinal Stenosis: No Hx Unsteady Gait: Yes - GASTROINTESTINAL Hx Gastrointestinal Disorders: Yes Hx Colostomy: No Hx Crohn's Disease: No Hx Diverticulitis: No Hx Gall Bladder Disease: No Hx Gastroesophageal Reflux: Yes Hx Ileostomy: No Hx Liver Failure: No Hx Pancreatitis: No HX Swallowing Problems: No Hx Ulcer: No - GENITOURINARY/GYNECOLOGICAL Hx Genitourinary Disorders: Yes Hx Hematuria: No Hx Incontinence: Yes Hx Sexually Transmitted Disorders: No Hx Urinary Tract Infection: Yes - PSYCHIATRIC Hx Psychophysiologic Disorder: Yes Hx Anxiety: Yes Hx Bipolar Disorder: No Hx Depression: No Hx Emotional Abuse: No Hx Hallucinations: No Hx Panic Symptoms: No Hx Paranoia: No Hx Post Traumatic Stress Disorder: No Hx Psychosis: No Hx Physical Abuse: No Hx Schizophrenia: No Hx Sexual Abuse: No Hx Substance Use: Yes - SURGICAL HISTORY Hx Mastectomy: No - ANESTHESIA Hx Anesthesia Reactions: No Hx Malignant Hyperthermia: No Meds Allergies/Adverse Reactions: Allergies Allergy/AdvReac Type Severity Reaction Status Date / Time levofloxacin [From Levaquin] Allergy RASH Verified 08/12/18 01:53 Penicillins Allergy RASH Verified 08/12/18 01:53 sulfamethoxazole Allergy ANGIOEDEMA Verified 08/12/18 01:53 [From Bactrim] trimethoprim [From Bactrim] Allergy ANGIOEDEMA Verified 08/12/18 01:53 azithromycin [From Zithromax] AdvReac RASH Verified 08/12/18 01:53 flexeril AdvReac RASH Uncoded 08/12/18 01:53 - Medications Medications: Current Medications Albuterol Sulfate (Albuterol 0.042% Inhal Donna (1.25mg/3ml) Ud) 1.25 mg IH DAILY PRN PRN Reason: Shortness of Breath Albuterol/Ipratropium (Duoneb 3 Mg/0.5 Mg (3 Ml) Ud) 3 ml IH QIDRESP [facility] Last Admin: 10/12/18 19:26 Dose: Not Given Arformoterol Tartrate (Brovana) 15 mcg IH [id number] [facility] Last Admin: 10/12/18 19:25 Dose: Not Given Ascorbic Acid (Vitamin C 500 Mg Tab) 500 mg PO DAILY [facility] Last Admin: 10/12/18 10:58 Dose: 500 mg Aspirin (Ecotrin) 81 mg PO DAILY [facility] Last Admin: 10/12/18 10:59 Dose: 81 mg Budesonide (Pulmicort Respules) 0.5 mg IH [id number] [facility] Last Admin: 10/12/18 19:26 Dose: Not Given Clonazepam (Klonopin) 0.5 mg PO TID PRN; Protocol PRN Reason: Anxiety Last Admin: 10/13/18 05:09 Dose: 0.5 mg Enoxaparin Sodium (Lovenox) 40 mg SC DAILY [facility]; Protocol Stop: 10/16/18 23:59 Last Admin: 10/12/18 11:00 Dose: 40 mg Folic Acid (Folic Acid) 1 mg PO DAILY [facility] Last Admin: 10/12/18 10:58 Dose: 1 mg Furosemide (Lasix) 20 mg PO DAILY [facility] Home Med (Home Med) 1 unit PO DAILY [facility] Last Admin: 10/12/18 10:59 Dose: 1 unit Doxycycline Hyclate 100 mg/ (Sodium Chloride) 100 mls @ 100 mls/hr IVPB Q12 [facility]; Protocol Last Admin: 10/12/18 22:25 Dose: 100 mls/hr Sodium Chloride (Sodium Chloride 0.9%) 1,000 mls @ 75 mls/hr IV .[id number] [facility] Last Admin: 10/12/18 20:17 Dose: 75 mls/hr Lisinopril (Zestril) 5 mg PO DAILY [facility] Last Admin: 10/12/18 11:15 Dose: Not Given Methadone HCl (Methadone) 30 mg PO DAILY [facility] Last Admin: 10/13/18 04:26 Dose: 30 mg Methylprednisolone (Solu-Medrol) 40 mg IV Q12 [facility] Last Admin: 10/12/18 22:09 Dose: 40 mg Metoprolol Tartrate (Lopressor) 12.5 mg PO Q12 [facility] Last Admin: 10/12/18 11:14 Dose: Not Given Mirtazapine (Remeron) 30 mg PO HS [facility] Last Admin: 10/12/18 22:08 Dose: 30 mg Pantoprazole Sodium (Protonix Ec Tab) 40 mg PO 0600 [facility] Last Admin: 10/13/18 05:09 Dose: 40 mg Results - Vital Signs Recent Vital Signs: Last Vital Signs Temp 98.0 F 10/13/18 00:01 Pulse 71 10/13/18 02:00 Resp 20 10/13/18 00:01 BP 97/75 L 10/13/18 05:00 Pulse Ox 98 10/13/18 00:01 - Labs Result Diagrams: 10/10/18 16:59 10/13/18 04:15 Labs: Laboratory Results - last 24 hr 10/11/18 10/11/18 10/13/18 14:20 14:20 04:15 Sodium 134 Potassium 5.1 H Chloride 103 Carbon Dioxide 22 Anion Gap 15 BUN 76 H Creatinine 2.3 H Est GFR ( Amer) 29 Est GFR (Non-Af Amer) 24 Random Glucose 119 H Calcium 7.6 L Phosphorus 8.7 H Magnesium 1.8 Total Bilirubin 0.2 AST 66 H D ALT 43 Alkaline Phosphatase 93 Total Protein 6.7 Albumin 2.6 L Globulin 4.1 Albumin/Globulin Ratio 0.6 L Triglycerides 132 Cholesterol 67 L LDL Cholesterol Direct 40 HDL Cholesterol 13 L TSH 3rd Generation Absolute Lymphs (Flow) 633 L % CD4 Cells 2 L Absolute CD4 Count <20 L T-Help/Suppress Ratio 0.02 L % CD8 Cells 79 H Absolute CD8 Count 500 T-Lymph Analys Comment See note HIV-1 RNA Qnt (RT-PCR) 4.18 H 10/13/18 04:15 Sodium Potassium Chloride Carbon Dioxide Anion Gap BUN Creatinine Est GFR ( Amer) Est GFR (Non-Af Amer) Random Glucose Calcium Phosphorus Magnesium Total Bilirubin AST ALT Alkaline Phosphatase Total Protein Albumin Globulin Albumin/Globulin Ratio Triglycerides Cholesterol LDL Cholesterol Direct HDL Cholesterol TSH 3rd Generation 0.23 L Absolute Lymphs (Flow) % CD4 Cells Absolute CD4 Count T-Help/Suppress Ratio % CD8 Cells Absolute CD8 Count T-Lymph Analys Comment HIV-1 RNA Qnt (RT-PCR) <Chon Gustafson - Last Filed: 10/13/18 19:45> Meds - Medications Medications: Current Medications Albuterol Sulfate (Albuterol 0.042% Inhal Donna (1.25mg/3ml) Ud) 1.25 mg IH DAILY PRN PRN Reason: Shortness of Breath Albuterol/Ipratropium (Duoneb 3 Mg/0.5 Mg (3 Ml) Ud) 3 ml IH QIDRESP [facility] Last Admin: 10/13/18 17:01 Dose: Not Given Arformoterol Tartrate (Brovana) 15 mcg IH [id number] [facility] Last Admin: 10/13/18 08:07 Dose: Not Given Ascorbic Acid (Vitamin C 500 Mg Tab) 500 mg PO DAILY [facility] Last Admin: 10/13/18 09:29 Dose: 500 mg Aspirin (Ecotrin) 81 mg PO DAILY [facility] Last Admin: 10/13/18 09:30 Dose: 81 mg Atovaquone (Mepron) 1,500 mg PO DAILY [facility]; Protocol Last Admin: 10/13/18 16:13 Dose: 1,500 mg Budesonide (Pulmicort Respules) 0.5 mg IH [id number] [facility] Last Admin: 10/13/18 08:07 Dose: Not Given Clonazepam (Klonopin) 0.5 mg PO TID PRN; Protocol PRN Reason: Anxiety Last Admin: 10/13/18 11:41 Dose: 0.5 mg Enoxaparin Sodium (Lovenox) 30 mg SC DAILY [facility]; Protocol Stop: 10/16/18 23:59 Folic Acid (Folic Acid) 1 mg PO DAILY [facility] Last Admin: 10/13/18 09:30 Dose: 1 mg Furosemide (Lasix) 20 mg PO DAILY [facility] Home Med (Home Med) 1 unit PO DAILY [facility] Last Admin: 10/13/18 09:28 Dose: 1 unit Doxycycline Hyclate 100 mg/ (Sodium Chloride) 100 mls @ 100 mls/hr IVPB Q12 [facility]; Protocol Last Admin: 10/13/18 09:32 Dose: 100 mls/hr Sodium Chloride (Sodium Chloride 0.9%) 1,000 mls @ 75 mls/hr IV .[id number] [facility] Last Admin: 10/13/18 13:03 Dose: Not Given Sodium Chloride (Sodium Chloride 0.9%) 1,000 mls @ 50 mls/hr IV .Q20H [facility] Stop: 10/14/18 23:59 Last Admin: 10/13/18 13:05 Dose: 50 mls/hr Lidocaine (Lidoderm) 1 ea TD DAILY [facility] Last Admin: 10/13/18 11:41 Dose: 1 ea Lisinopril (Zestril) 5 mg PO DAILY [facility] Last Admin: 10/12/18 11:15 Dose: Not Given Methadone HCl (Methadone) 30 mg PO Q8 [facility] Last Admin: 10/13/18 16:13 Dose: 30 mg Methylprednisolone (Solu-Medrol) 20 mg IV Q12 [facility] Metoprolol Tartrate (Lopressor) 12.5 mg PO Q12 [facility] Last Admin: 10/12/18 11:14 Dose: Not Given Mirtazapine (Remeron) 45 mg PO HS [facility] Pantoprazole Sodium (Protonix Ec Tab) 40 mg PO 0600 [facility] Last Admin: 10/13/18 05:09 Dose: 40 mg Sevelamer HCl (Renagel) 1,600 mg PO TID [facility] Last Admin: 10/13/18 18:18 Dose: 1,600 mg Vitamin B Complex/Vit C/Folic Acid (Nephro-Delores) 1 tab PO 0800 [facility] Results - Vital Signs Recent Vital Signs: Last Vital Signs Temp 98.7 F 10/13/18 18:00 Pulse 89 10/13/18 18:00 Resp 19 10/13/18 18:00 BP 111/72 10/13/18 18:00 Pulse Ox 99 10/13/18 06:00 - Labs Result Diagrams: 10/10/18 16:59 10/13/18 04:15 Labs: Laboratory Results - last 24 hr 10/11/18 10/13/18 10/13/18 14:20 04:15 04:15 Sodium 134 Potassium 5.1 H Chloride 103 Carbon Dioxide 22 Anion Gap 15 BUN 76 H Creatinine 2.3 H Est GFR ( Amer) 29 Est GFR (Non-Af Amer) 24 Random Glucose 119 H Calcium 7.6 L Phosphorus 8.7 H Magnesium 1.8 Total Bilirubin 0.2 AST 66 H D ALT 43 Alkaline Phosphatase 93 Total Protein 6.7 Albumin 2.6 L Globulin 4.1 Albumin/Globulin Ratio 0.6 L Triglycerides 132 Cholesterol 67 L LDL Cholesterol Direct 40 HDL Cholesterol 13 L TSH 3rd Generation 0.23 L HIV-1 RNA Qnt (RT-PCR) 4.18 H Attending/Attestation - Attestation I have personally seen and examined this patient.: Yes I have fully participated in the care of the patient.: Yes I have reviewed all pertinent clinical information: Yes Notes (Text): 10/13/18 19:44 Looks dry. Added midodrine and held all anti HTN meds.
[2018-10-13] MEDS: Arformoterol 15 mcg/2 ml Inh Sol IH SCH ×2 (08:07→20:41)
[2018-10-13] MEDS: Albuterol-Ipratrop 3 mg / 0.5 (3 ml) UD IH SCH ×4 (08:07→20:41)
[2018-10-13] MEDS: Budesonide 0.5 mg/2 ml Inhal Susp UD IH SCH ×2 (08:07→20:42)
--- NOTE | 2018-10-13 08:59 | CP.PCM.PN ---
Subjective - Date & Time of Evaluation Date of Evaluation: 10/13/18 Time of Evaluation: 06:20 - Subjective Subjective: Awake, alert, no distress, complaining about methadone dose Reason for consultation and follow up: Cardiac evaluation of shortness of breath, history of HIV, EBV, CMV, HSV, COPD, asthma, heroin abuse, CHF Seen and examined by me and Dr. Veliz Objective - Vital Signs/Intake and Output Vital Signs (last 24 hours): Temp Pulse Resp BP Pulse Ox 97.5 F L 74 18 97/75 L 99 10/13/18 06:00 10/13/18 06:00 10/13/18 06:00 10/13/18 06:00 10/13/18 06:00 Intake and Output: 10/13/18 10/13/18 06:59 18:59 Intake Total 2105 Output Total 600 Balance 1505 - Medications Medications: Current Medications Albuterol Sulfate (Albuterol 0.042% Inhal Donna (1.25mg/3ml) Ud) 1.25 mg IH DAILY PRN PRN Reason: Shortness of Breath Albuterol/Ipratropium (Duoneb 3 Mg/0.5 Mg (3 Ml) Ud) 3 ml IH QIDRESP [facility] Last Admin: 10/13/18 08:07 Dose: Not Given Arformoterol Tartrate (Brovana) 15 mcg IH [id number] [facility] Last Admin: 10/13/18 08:07 Dose: Not Given Ascorbic Acid (Vitamin C 500 Mg Tab) 500 mg PO DAILY [facility] Last Admin: 10/12/18 10:58 Dose: 500 mg Aspirin (Ecotrin) 81 mg PO DAILY [facility] Last Admin: 10/12/18 10:59 Dose: 81 mg Budesonide (Pulmicort Respules) 0.5 mg IH [id number] [facility] Last Admin: 10/13/18 08:07 Dose: Not Given Clonazepam (Klonopin) 0.5 mg PO TID PRN; Protocol PRN Reason: Anxiety Last Admin: 10/13/18 05:09 Dose: 0.5 mg Enoxaparin Sodium (Lovenox) 40 mg SC DAILY [facility]; Protocol Stop: 10/16/18 23:59 Last Admin: 10/12/18 11:00 Dose: 40 mg Folic Acid (Folic Acid) 1 mg PO DAILY [facility] Last Admin: 10/12/18 10:58 Dose: 1 mg Furosemide (Lasix) 20 mg PO DAILY [facility] Home Med (Home Med) 1 unit PO DAILY [facility] Last Admin: 10/12/18 10:59 Dose: 1 unit Doxycycline Hyclate 100 mg/ (Sodium Chloride) 100 mls @ 100 mls/hr IVPB Q12 [facility]; Protocol Last Admin: 10/12/18 22:25 Dose: 100 mls/hr Sodium Chloride (Sodium Chloride 0.9%) 1,000 mls @ 75 mls/hr IV .[id number] [facility] Last Admin: 10/12/18 20:17 Dose: 75 mls/hr Lisinopril (Zestril) 5 mg PO DAILY [facility] Last Admin: 10/12/18 11:15 Dose: Not Given Methylprednisolone (Solu-Medrol) 40 mg IV Q12 [facility] Last Admin: 10/12/18 22:09 Dose: 40 mg Metoprolol Tartrate (Lopressor) 12.5 mg PO Q12 [facility] Last Admin: 10/12/18 11:14 Dose: Not Given Mirtazapine (Remeron) 30 mg PO HS [facility] Last Admin: 10/12/18 22:08 Dose: 30 mg Pantoprazole Sodium (Protonix Ec Tab) 40 mg PO 0600 [facility] Last Admin: 10/13/18 05:09 Dose: 40 mg - Labs Labs: 10/10/18 16:59 10/13/18 04:15 - Constitutional Appears: Non-toxic, No Acute Distress - Head Exam Head Exam: NORMAL INSPECTION, NORMOCEPHALIC - Eye Exam Eye Exam: Normal appearance Pupil Exam: NORMAL ACCOMODATION - ENT Exam ENT Exam: Mucous Membranes Moist, Normal Exam - Respiratory Exam Respiratory Exam: Decreased Breath Sounds, NORMAL BREATHING PATTERN - Cardiovascular Exam Cardiovascular Exam: +S1, +S2 - GI/Abdominal Exam GI & Abdominal Exam: Soft, Normal Bowel Sounds - Extremities Exam Extremities Exam: Full ROM, Normal Capillary Refill - Neurological Exam Neurological Exam: Alert, Awake, Oriented x3 - Psychiatric Exam Psychiatric exam: Normal Affect, Normal Mood - Skin Skin Exam: Dry, Normal Color, Warm Assessment and Plan - Assessment and Plan (Free Text) Assessment: A 38 year old female who came in to the ER due to shortness of breath. History of Human Immunodeficiency Virus, Brian-Coker Virus, , COPD, asthma, heroin abuse, CHF,cardiomyopathy with LVEF of 35%. on home oxygen, history of liver tuberculosis,history of pneomocystis carini pneumonia, methadone dependent. CT of chest showed redemonstration of numerous bilateral pulmonary regular nodules all predominantly decreased in size compared to previous CT. Resolution of bilateral pleural effusions. Pulmonary on consult. Plan: Denies shortness of breath Complaining about Methadone dose Heart rate controlled Blood pressure stable Lasix decreased dose On ASA 81 mg daily, lovenox 40 mg daily, Lasix 20 mg daily, Lisinopril 5 mg daily, Solumedrol 40 mg IV BID, Metoprolol 12.5 mg BID Continue current treatment Continue current medications Will follow up Plan and treatment discussed with Dr. Veliz
[2018-10-13] MEDS: SYMTUZA PO SCH (09:28)
[2018-10-13] MEDS: Enoxaparin 40 mg Syringe SC SCH (09:28)
[2018-10-13] MEDS: MethylPREDNISolone 40 mg Vial IV SCH (09:31)
[2018-10-13] MEDS: Lidocaine 5% Patch TD SCH (11:41)
--- NOTE | 2018-10-13 12:23 | PN ---
PULMONARY PROGRESS NOTE DATE: 10/13/2018 REFERRING PHYSICIAN: Macario Carter MD SUBJECTIVE: The patient is sitting up in bed. No overnight events reported. The patient does report concerns with current methadone dosage. The patient also reporting lower back pain for which she states sometimes she would use Lidoderm patch. No headache, rhinitis, cough, shortness of breath, chest pain, abdominal pain, nausea, vomiting, diarrhea, leg pain or leg swelling reported. OBJECTIVE: GENERAL: No acute distress. VITAL SIGNS: Blood pressure 97/75, pulse 74, temperature 97.5 and oxygen saturation 99% on nasal cannula. HEENT: Moist mucous membranes. NECK: Supple. No JVD. RESPIRATORY: Few rhonchi bilaterally. No audible wheeze, fair airflow. CARDIOVASCULAR: S1 and S2 audible. ABDOMEN: Soft and nontender. No distention. No organomegaly. EXTREMITIES: No bilateral lower extremity edema. NEUROLOGIC: Awake, alert and verbal. Follows commands. MEDICATIONS: Reviewed. Albuterol sulfate 1.25 mg inhalation daily p.r.n., DuoNeb 3 mL inhalation four times a day, Brovana 15 mcg every 12 hours, vitamin C 500 mg daily, aspirin 81 mg daily, Pulmicort 0.5 mg inhalation every 12 hours, Klonopin 0.5 mg three times a day p.r.n., doxycycline 100 mg every 12 hours, Lovenox 40 mg subcutaneously daily, folic acid 1 mg p.o. daily, Lasix 40 mg p.o. daily, lisinopril 5 mg p.o. daily, methadone 30 mg every 8 hours, Solu-Medrol 40 mg every 12 hours, metoprolol tartrate 12.5 mg every 12 hours, Remeron 30 mg at bedtime, Protonix 40 mg daily, sodium chloride 1000 mL at 75 mL per hour. LABORATORY DATA: Reviewed. Sodium 134, potassium 5.1, chloride 103, carbon dioxide 22, anion gap 15, BUN 76, creatinine 2.3, GFR 24, random glucose 119, calcium 7.6, phosphors 8.7, magnesium 1.8, total bilirubin 0.2, AST 66, ALT 43, alkaline phosphatase 93, total protein 6.7, albumin 2.6, globulin 4.1 and albumin-globulin ratio 0.6, triglycerides 132, cholesterol 67, LDL cholesterol direct 40, HDL cholesterol 13, TSH 0.23. IMPRESSION AND PLAN: Severe obstructive lung disease, history of acquired immune deficiency syndrome, history of pneumocystis carinii pneumonia, methadone dependent, renal insufficiency, asthma, congestive heart failure, pulmonary nodules. Pulmonary point of view, some improvement in pulmonary status, continue diuretics, continue inhaled bronchodilators, steroids, antibiotic therapy, continue gastric prophylaxis, deep venous thrombosis prophylaxis. Will decrease steroids and add lidoderm patch for back pain. Continue followup with Infectious Disease. The patient will need followup CT scan in 3 months to evaluate nodules and effusions. This patient was seen and examined with Dr. Barajas. Discussed assessment and plan as described above. Thank you for this consult. We will follow with you. Jose Johnson APN Cara Barajas MD [id number]
--- NOTE | 2018-10-13 12:48 | PN ---
DATE: 10/12/2018 PHYSICAL EXAMINATION: VITAL SIGNS: The patient has temperature of 100.2, heart rate 118, blood pressure 87/51, saturation 92%, and respiration 19. HEAD AND NECK: Normal. No JVD. CHEST: Bilateral rhonchi. CARDIAC: First second and second sound normal. ABDOMEN: Scaphoid, soft, nontender. EXTREMITIES: No edema. NEUROLOGIC: Normal. LABORATORY DATA: Laboratory studies on 10/12/2018, the patient has HIV serology 4.18 via PCR. IMPRESSION AND PLAN: 1. Advanced age. Continue intravenous antibiotic and inhaled bronchodilators. 2. Congestive heart failure, history of human immunodeficiency virus related cardiomyopathy. She is on Lopressor, Zestril, and Lasix has been on hold because of low blood pressure. She runs in the 75 to 85. We will also hold the methadone because of lower blood pressure. We will give intravenous fluids and will monitor her blood pressure conditions. 3. History of intravenous heroin use. We will give methadone 30 mg if pressure go up above 90 and we will try to give it three times a day depending on the blood pressure measurements and the patient's conditions. We will follow up with the Cardiology. The patient also has chronic anxiety, continue clonazepam 0.5 mg t.i.d. 4. Chronic obstructive pulmonary disease. Continue nebulizer treatment, intravenous steroids, intravenous doxycycline and we will follow up. The patient also had previously a CT of the chest done and which shows bilateral pulmonary irregular nodules, which predominantly have markedly decreased in size, and resolution of bilateral pleural effusion, small pericardial effusion. Recommend to follow up. Macario Carter MD
[2018-10-13] MEDS: Sodium Chloride 0.9% 1,000 ML IV SCH ×2 (13:03→13:05)
--- NOTE | 2018-10-13 13:25 | CP.PCM.CON ---
History of Present Illness - History of Present Illness History of Present Illness: Nephrology Consultation Note: Assessment: critical Acute Kidney Injury (N17.9) likely hemodynamic/ATN due to hypotension and impaired renal perfusion COPD exacerbation Hyperphosphatemia HIV/AIDS (CD 4 count <20) non compliant to meds, hx of PCP pneumonia, IVDA, chronic Hep C, COPD chronic sys CHF LVEF 45% Liver Biopsy + AFB Plan No acute need for renal replacement therapy at this time. maintain hemodynamics stable. avoid hypotension. Patient not on ACEI/ARB due to BERNICE Monitor Input/Output, daily weights and renal function with basic metabolic panel continue with IVF. ID, pulmonary following started phos binders check UA, urine Na/cr and renal sonogram Dose meds/antibiotics for reduced GFR. Avoid fleets enema/magnesium based laxatives. Avoid nephrotoxins/NSAIDs/ iodinated contrast (unless needed emergently) Glycemic control Further work up/management as per primary team pt was advised that she need to stay in hospital for further medical care and need close follow up on kidney function Thanks for allowing me to participate in care of your patient. Will follow patient with you. Please call if any Qs. had d/w team Dr Sesar Paez Office: [phone] CC: I need more methadone Reason for consult: BERNICE HPI: Pt is a 38 F with hx of HIV/AIDS (CD 4 count <20) non compliant to meds, hx of PCP pneumonia, IVDA, chronic Hep C, COPD, on methadone, CHF, presented with complaints of SOB, cough, also with BERNICE hence renal consulted No recent iodinated contrast exposure. Noted obvious episodes of low BP. pt upset about not getting enough methadone and that was her main/only concern. says will sign out from hospital soon ROS: SOB better. says making urine normally now, wasn't doing that earlier. feels anxious. denies CP. no nausea/vomitting. ROS all other negative except as mentioned in HPI Physical Examination: General Appearance: Comfortable, in no acute respiratory distress. thin built. appears chronically ill and debilitated Vitals reviewed and noted as below Head; Atraumatic, normocephalic ENT: normal mucosa EYES: Pupils are equal, round and reactive to light accommodation. Eye muscles and extraocular movement intact. Sclera is anicteric. Neck; supple no lymphadenopathy, no thyromegaly or bruit Lungs: Normal respiratory rate/effort. Breath sounds bilateral equal Heart: Normal rate. s1s2 normal. No rub or gallop. Extremities: no edema. No varicose veins Neurological: Patient is awake alert follow commands, no focal deficit Skin: Warm and dry. Normal turgor. No rash. Palpitation: Normal elasticity for age Abdomen: Abdomen is soft. Bowel sounds +. There is no abdominal tenderness, no guarding/rigidity no organomegaly. appears distended Psych: lack insight. anxious affect/mood MSK: no joint tenderness or swelling. Digits and nails normal, no deformity : kidney or bladder not palpable. Labs/imaging reviewed. Past medical history, past surgical history, family history, social history, allergy reviewed and noted as below Family hx: no hx of CKD. Rest non-contributory in past liver biopsy + AFB LVEF 45% Past Patient History - Infectious Disease Hx of Infectious Diseases: None - Tetanus Immunizations Tetanus Immunization: Unknown - Past Social History Smoking Status: Light Smoker < 10 Cigarettes Daily - CARDIAC Hx Pacemaker: No - PULMONARY Hx Respiratory Disorders: Yes Hx Asthma: Yes Hx Bronchitis: Yes Hx Chronic Obstructive Pulmonary Disease (COPD): Yes Hx Emphysema: No Hx Pneumonia: Yes Hx Respiratory Aspiration: No Hx Respiratory Tract Infection: No Hx Sleep Apnea: No Hx Tuberculosis: No - NEUROLOGICAL Hx Neurological Disorder: Yes Hx Alzheimer's Disease: No HX Cerebrovascular Accident: No Hx Dementia: No Hx Dizziness: Yes Hx Meningitis: No Hx Migraine: Yes Hx Parkinson's Disease: No Hx Seizures: No Hx Transient Ischemic Attacks (TIA): No - HEENT Hx HEENT Problems: No Hx Blind: No Hx Cataracts: No Hx Deafness: No Hx Difficulty Chewing: No Hx Epistaxis: No Hx Glaucoma: No Hx Macular Degeneration: No - RENAL Hx Chronic Kidney Disease: No Hx Dialysis: No Hx Kidney Stones: No Hx Neurogenic Bladder: No Hx Pyelonephritis: No Hx Renal (Kidney) Cancer: No Hx Renal Failure: No - ENDOCRINE/METABOLIC Hx Endocrine Disorders: No Hx Adrenal Cancer: No Hx Diabetes Insipidus: No Hx Diabetes Mellitus Type 1: No Hx Diabetes Mellitus Type 2: No Hx Hyperthyroidism: No Hx Hypothyroidism: No Hx Systemic Lupus Erythematosus: No - HEMATOLOGICAL/ONCOLOGICAL Hx Cancer: No - INTEGUMENTARY Hx Dermatological Problems: No Hx Basil Cell: No Hx Eczema: No Hx Melanoma: No Hx Psoriasis: No Hx Squamous Cell: No - MUSCULOSKELETAL/RHEUMATOLOGICAL Hx Musculoskeletal Disorders: Yes Hx Arthritis: Yes Hx Back Pain: Yes Hx Degenerative Joint Disease: No Hx Falls: No Hx Fractures: No Hx Gout: No Hx Herniated Disk: No Hx Myasthenia Gravis: No Hx Osteoarthritis: No Hx Osteomyelitis: No Hx Osteoporosis: No Hx Rhabdomyolysis: No Hx Spinal Stenosis: No Hx Unsteady Gait: Yes - GASTROINTESTINAL Hx Gastrointestinal Disorders: Yes Hx Colostomy: No Hx Crohn's Disease: No Hx Diverticulitis: No Hx Gall Bladder Disease: No Hx Gastroesophageal Reflux: Yes Hx Ileostomy: No Hx Liver Failure: No Hx Pancreatitis: No HX Swallowing Problems: No Hx Ulcer: No - GENITOURINARY/GYNECOLOGICAL Hx Genitourinary Disorders: Yes Hx Hematuria: No Hx Incontinence: Yes Hx Sexually Transmitted Disorders: No Hx Urinary Tract Infection: Yes - PSYCHIATRIC Hx Psychophysiologic Disorder: Yes Hx Anxiety: Yes Hx Bipolar Disorder: No Hx Depression: No Hx Emotional Abuse: No Hx Hallucinations: No Hx Panic Symptoms: No Hx Paranoia: No Hx Post Traumatic Stress Disorder: No Hx Psychosis: No Hx Physical Abuse: No Hx Schizophrenia: No Hx Sexual Abuse: No Hx Substance Use: Yes - SURGICAL HISTORY Hx Mastectomy: No - ANESTHESIA Hx Anesthesia Reactions: No Hx Malignant Hyperthermia: No Meds Allergies/Adverse Reactions: Allergies Allergy/AdvReac Type Severity Reaction Status Date / Time levofloxacin [From Levaquin] Allergy RASH Verified 08/12/18 01:53 Penicillins Allergy RASH Verified 08/12/18 01:53 sulfamethoxazole Allergy ANGIOEDEMA Verified 08/12/18 01:53 [From Bactrim] trimethoprim [From Bactrim] Allergy ANGIOEDEMA Verified 08/12/18 01:53 azithromycin [From Zithromax] AdvReac RASH Verified 08/12/18 01:53 flexeril AdvReac RASH Uncoded 08/12/18 01:53 - Medications Medications: Current Medications Albuterol Sulfate (Albuterol 0.042% Inhal Donna (1.25mg/3ml) Ud) 1.25 mg IH DAILY PRN PRN Reason: Shortness of Breath Albuterol/Ipratropium (Duoneb 3 Mg/0.5 Mg (3 Ml) Ud) 3 ml IH QIDRESP [facility] Last Admin: 10/13/18 08:07 Dose: Not Given Arformoterol Tartrate (Brovana) 15 mcg IH [id number] [facility] Last Admin: 10/13/18 08:07 Dose: Not Given Ascorbic Acid (Vitamin C 500 Mg Tab) 500 mg PO DAILY [facility] Last Admin: 10/13/18 09:29 Dose: 500 mg Aspirin (Ecotrin) 81 mg PO DAILY [facility] Last Admin: 10/13/18 09:30 Dose: 81 mg Budesonide (Pulmicort Respules) 0.5 mg IH [id number] [facility] Last Admin: 10/13/18 08:07 Dose: Not Given Clonazepam (Klonopin) 0.5 mg PO TID PRN; Protocol PRN Reason: Anxiety Last Admin: 10/13/18 11:41 Dose: 0.5 mg Enoxaparin Sodium (Lovenox) 30 mg SC DAILY [facility]; Protocol Stop: 10/16/18 23:59 Folic Acid (Folic Acid) 1 mg PO DAILY [facility] Last Admin: 10/13/18 09:30 Dose: 1 mg Furosemide (Lasix) 20 mg PO DAILY [facility] Home Med (Home Med) 1 unit PO DAILY [facility] Last Admin: 10/13/18 09:28 Dose: 1 unit Doxycycline Hyclate 100 mg/ (Sodium Chloride) 100 mls @ 100 mls/hr IVPB Q12 [facility]; Protocol Last Admin: 10/13/18 09:32 Dose: 100 mls/hr Sodium Chloride (Sodium Chloride 0.9%) 1,000 mls @ 75 mls/hr IV .[id number] [facility] Last Admin: 10/13/18 13:03 Dose: Not Given Sodium Chloride (Sodium Chloride 0.9%) 1,000 mls @ 50 mls/hr IV .Q20H [facility] Stop: 10/14/18 23:59 Lidocaine (Lidoderm) 1 ea TD DAILY [facility] Last Admin: 10/13/18 11:41 Dose: 1 ea Lisinopril (Zestril) 5 mg PO DAILY [facility] Last Admin: 10/12/18 11:15 Dose: Not Given Methadone HCl (Methadone) 30 mg PO Q8 [facility] Last Admin: 10/13/18 09:30 Dose: 30 mg Methylprednisolone (Solu-Medrol) 20 mg IV Q12 [facility] Metoprolol Tartrate (Lopressor) 12.5 mg PO Q12 [facility] Last Admin: 12/19/18 11:14 Dose: Not Given Mirtazapine (Remeron) 30 mg PO HS [facility] Last Admin: 10/12/18 22:08 Dose: 30 mg Pantoprazole Sodium (Protonix Ec Tab) 40 mg PO 0600 [facility] Last Admin: 10/13/18 05:09 Dose: 40 mg Sevelamer HCl (Renagel) 1,600 mg PO TID [facility] Vitamin B Complex/Vit C/Folic Acid (Nephro-Delores) 1 tab PO 0800 [facility] Results - Vital Signs Recent Vital Signs: Last Vital Signs Temp 97.1 F L 10/13/18 12:00 Pulse 87 10/13/18 12:00 Resp 19 10/13/18 12:00 BP 102/68 10/13/18 12:00 Pulse Ox 99 10/13/18 06:00 - Labs Result Diagrams: 10/10/18 16:59 10/13/18 04:15 Labs: Laboratory Results - last 24 hr 10/11/18 10/11/18 10/13/18 14:20 14:20 04:15 Sodium 134 Potassium 5.1 H Chloride 103 Carbon Dioxide 22 Anion Gap 15 BUN 76 H Creatinine 2.3 H Est GFR ( Amer) 29 Est GFR (Non-Af Amer) 24 Random Glucose 119 H Calcium 7.6 L Phosphorus 8.7 H Magnesium 1.8 Total Bilirubin 0.2 AST 66 H D ALT 43 Alkaline Phosphatase 93 Total Protein 6.7 Albumin 2.6 L Globulin 4.1 Albumin/Globulin Ratio 0.6 L Triglycerides 132 Cholesterol 67 L LDL Cholesterol Direct 40 HDL Cholesterol 13 L TSH 3rd Generation Absolute Lymphs (Flow) 633 L % CD4 Cells 2 L Absolute CD4 Count <20 L T-Help/Suppress Ratio 0.02 L % CD8 Cells 79 H Absolute CD8 Count 500 T-Lymph Analys Comment See note HIV-1 RNA Qnt (RT-PCR) 4.18 H 10/13/18 04:15 Sodium Potassium Chloride Carbon Dioxide Anion Gap BUN Creatinine Est GFR ( Amer) Est GFR (Non-Af Amer) Random Glucose Calcium Phosphorus Magnesium Total Bilirubin AST ALT Alkaline Phosphatase Total Protein Albumin Globulin Albumin/Globulin Ratio Triglycerides Cholesterol LDL Cholesterol Direct HDL Cholesterol TSH 3rd Generation 0.23 L Absolute Lymphs (Flow) % CD4 Cells Absolute CD4 Count T-Help/Suppress Ratio % CD8 Cells Absolute CD8 Count T-Lymph Analys Comment HIV-1 RNA Qnt (RT-PCR)
--- NOTE | 2018-10-13 13:45 | CP.PCM.PN ---
<Gatito Hanna - Last Filed: 10/13/18 13:58> Subjective - Date & Time of Evaluation Date of Evaluation: 10/13/18 Time of Evaluation: 09:30 - Subjective Subjective: ID progress note Patient with hypotension overnight, patient states that's her baseline. Admits to improvement in shortness of breath. Denies chest pain, nausea, vomiting, diarrhea, fever, chills. Objective - Vital Signs/Intake and Output Vital Signs (last 24 hours): Temp Pulse Resp BP Pulse Ox 97.1 F L 87 19 102/68 99 10/13/18 12:00 10/13/18 12:00 10/13/18 12:00 10/13/18 12:00 10/13/18 06:00 Intake and Output: 10/13/18 10/13/18 06:59 18:59 Intake Total 2105 Output Total 600 Balance 1505 - Medications Medications: Current Medications Albuterol Sulfate (Albuterol 0.042% Inhal Donna (1.25mg/3ml) Ud) 1.25 mg IH DAILY PRN PRN Reason: Shortness of Breath Albuterol/Ipratropium (Duoneb 3 Mg/0.5 Mg (3 Ml) Ud) 3 ml IH QIDRESP [facility] Last Admin: 10/13/18 13:34 Dose: Not Given Arformoterol Tartrate (Brovana) 15 mcg IH [id number] [facility] Last Admin: 10/13/18 08:07 Dose: Not Given Ascorbic Acid (Vitamin C 500 Mg Tab) 500 mg PO DAILY [facility] Last Admin: 10/13/18 09:29 Dose: 500 mg Aspirin (Ecotrin) 81 mg PO DAILY [facility] Last Admin: 10/13/18 09:30 Dose: 81 mg Budesonide (Pulmicort Respules) 0.5 mg IH [id number] [facility] Last Admin: 10/13/18 08:07 Dose: Not Given Clonazepam (Klonopin) 0.5 mg PO TID PRN; Protocol PRN Reason: Anxiety Last Admin: 10/13/18 11:41 Dose: 0.5 mg Enoxaparin Sodium (Lovenox) 30 mg SC DAILY [facility]; Protocol Stop: 10/16/18 23:59 Folic Acid (Folic Acid) 1 mg PO DAILY [facility] Last Admin: 10/13/18 09:30 Dose: 1 mg Furosemide (Lasix) 20 mg PO DAILY [facility] Home Med (Home Med) 1 unit PO DAILY [facility] Last Admin: 10/13/18 09:28 Dose: 1 unit Doxycycline Hyclate 100 mg/ (Sodium Chloride) 100 mls @ 100 mls/hr IVPB Q12 [facility]; Protocol Last Admin: 10/13/18 09:32 Dose: 100 mls/hr Sodium Chloride (Sodium Chloride 0.9%) 1,000 mls @ 75 mls/hr IV .[id number] [facility] Last Admin: 10/13/18 13:03 Dose: Not Given Sodium Chloride (Sodium Chloride 0.9%) 1,000 mls @ 50 mls/hr IV .Q20H [facility] Stop: 10/14/18 23:59 Lidocaine (Lidoderm) 1 ea TD DAILY [facility] Last Admin: 10/13/18 11:41 Dose: 1 ea Lisinopril (Zestril) 5 mg PO DAILY [facility] Last Admin: 10/12/18 11:15 Dose: Not Given Methadone HCl (Methadone) 30 mg PO Q8 [facility] Last Admin: 10/13/18 09:30 Dose: 30 mg Methylprednisolone (Solu-Medrol) 20 mg IV Q12 [facility] Metoprolol Tartrate (Lopressor) 12.5 mg PO Q12 [facility] Last Admin: 10/12/18 11:14 Dose: Not Given Mirtazapine (Remeron) 30 mg PO HS [facility] Last Admin: 10/12/18 22:08 Dose: 30 mg Pantoprazole Sodium (Protonix Ec Tab) 40 mg PO 0600 [facility] Last Admin: 10/13/18 05:09 Dose: 40 mg Sevelamer HCl (Renagel) 1,600 mg PO TID [facility] Vitamin B Complex/Vit C/Folic Acid (Nephro-Delores) 1 tab PO 0800 [facility] - Labs Labs: 10/10/18 16:59 10/13/18 04:15 - Constitutional Appears: Non-toxic, No Acute Distress - Head Exam Head Exam: ATRAUMATIC, NORMAL INSPECTION, NORMOCEPHALIC - ENT Exam ENT Exam: Mucous Membranes Moist - Respiratory Exam Respiratory Exam: Decreased Breath Sounds, NORMAL BREATHING PATTERN. absent: Rales, Rhonchi, Wheezes - Cardiovascular Exam Cardiovascular Exam: RRR, +S1, +S2 - GI/Abdominal Exam GI & Abdominal Exam: Soft, Normal Bowel Sounds. absent: Tenderness - Extremities Exam Extremities Exam: Normal Inspection. absent: Pedal Edema - Neurological Exam Neurological Exam: Alert, Awake - Psychiatric Exam Psychiatric exam: Normal Affect, Normal Mood - Skin Skin Exam: Intact, Normal Color, Warm Assessment and Plan - Assessment and Plan (Free Text) Plan: COPD exacerbation AIDS, CD4 < 20 Pulmonary nodules, hx of aspergillosis Mycobacterium positive Liver biopsy Systolic CHF Plan Continue Doxycycline Continue Mepron and Symtuza Will discuss with pulmonology about pulmonary nodules and further workup CD4 count <20, Viral load elevated Will obtain Fungitell, Histoplasma antigen, Galacomannan, and Crypto serum antigen Jacques, PGY-3 <Manpreet Granado - Last Filed: 10/13/18 22:29> Objective - Vital Signs/Intake and Output Vital Signs (last 24 hours): Temp Pulse Resp BP Pulse Ox 98.7 F 89 19 111/72 99 10/13/18 18:00 10/13/18 18:00 10/13/18 18:00 10/13/18 18:00 10/13/18 06:00 Intake and Output: 10/13/18 10/14/18 18:59 06:59 Intake Total 775 Balance 775 - Medications Medications: Current Medications Albuterol Sulfate (Albuterol 0.042% Inhal Donna (1.25mg/3ml) Ud) 1.25 mg IH DAILY PRN PRN Reason: Shortness of Breath Albuterol/Ipratropium (Duoneb 3 Mg/0.5 Mg (3 Ml) Ud) 3 ml IH QIDRESP [facility] Last Admin: 10/13/18 20:41 Dose: Not Given Arformoterol Tartrate (Brovana) 15 mcg IH [id number] [facility] Last Admin: 10/13/18 20:41 Dose: Not Given Ascorbic Acid (Vitamin C 500 Mg Tab) 500 mg PO DAILY [facility] Last Admin: 10/13/18 09:29 Dose: 500 mg Aspirin (Ecotrin) 81 mg PO DAILY [facility] Last Admin: 10/13/18 09:30 Dose: 81 mg Atovaquone (Mepron) 1,500 mg PO DAILY [facility]; Protocol Last Admin: 10/13/18 16:13 Dose: 1,500 mg Budesonide (Pulmicort Respules) 0.5 mg IH [id number] [facility] Last Admin: 10/13/18 20:42 Dose: Not Given Clonazepam (Klonopin) 0.5 mg PO TID PRN; Protocol PRN Reason: Anxiety Last Admin: 10/13/18 21:23 Dose: 0.5 mg Enoxaparin Sodium (Lovenox) 30 mg SC DAILY [facility]; Protocol Stop: 10/16/18 23:59 Folic Acid (Folic Acid) 1 mg PO DAILY [facility] Last Admin: 10/13/18 09:30 Dose: 1 mg Furosemide (Lasix) 20 mg PO DAILY [facility] Home Med (Home Med) 1 unit PO DAILY [facility] Last Admin: 10/13/18 09:28 Dose: 1 unit Doxycycline Hyclate 100 mg/ (Sodium Chloride) 100 mls @ 100 mls/hr IVPB Q12 [facility]; Protocol Last Admin: 10/13/18 21:24 Dose: 100 mls/hr Sodium Chloride (Sodium Chloride 0.9%) 1,000 mls @ 75 mls/hr IV .[id number] [facility] Last Admin: 10/13/18 13:03 Dose: Not Given Sodium Chloride (Sodium Chloride 0.9%) 1,000 mls @ 50 mls/hr IV .Q20H [facility] Stop: 10/14/18 23:59 Last Admin: 10/13/18 13:05 Dose: 50 mls/hr Lidocaine (Lidoderm) 1 ea TD DAILY [facility] Last Admin: 10/13/18 11:41 Dose: 1 ea Lisinopril (Zestril) 5 mg PO DAILY [facility] Last Admin: 10/12/18 11:15 Dose: Not Given Methadone HCl (Methadone) 30 mg PO Q8 [facility] Last Admin: 10/13/18 21:23 Dose: 30 mg Methylprednisolone (Solu-Medrol) 20 mg IV Q12 [facility] Metoprolol Tartrate (Lopressor) 12.5 mg PO Q12 [facility] Last Admin: 10/12/18 11:14 Dose: Not Given Mirtazapine (Remeron) 45 mg PO HS [facility] Last Admin: 10/13/18 21:24 Dose: 45 mg Pantoprazole Sodium (Protonix Ec Tab) 40 mg PO 0600 [facility] Last Admin: 10/13/18 05:09 Dose: 40 mg Sevelamer HCl (Renagel) 1,600 mg PO TID [facility] Last Admin: 10/13/18 18:18 Dose: 1,600 mg Vitamin B Complex/Vit C/Folic Acid (Nephro-Delores) 1 tab PO 0800 [facility] - Labs Labs: 10/10/18 16:59 10/13/18 04:15 Assessment and Plan - Assessment and Plan (Free Text) Plan: Infectious diseases Attending Physician Attestation Patient seen and examined, discussed with remote medical coder. I have reviewed the patient's history of present illness, past medical, social, personal and family histories, pertinent physical exam findings, course so far in this hospital admission, pertinent laboratory and imaging results. I agree with the above findings, assessment and plan. In addition, reviewed CT chest - pulmonary nodules are still present but diminished in size. Will get serum Crypt Ag, Gala ctommanan and Fungitell and will discuss with Pulmonary re: possible biopsy of pulmonary nodules. Continue Doxycycline for acute on chronic bronchitis. Continue PJP prophylaxis and cART for HIV/AIDS.
--- NOTE | 2018-10-13 14:06 | PN ---
DATE: 10/11/2018 SUBJECTIVE: A 38-year-old female. Patient in bed comfortable. Less short of breath. Feeling better. Afebrile. Has no any other complaints. She feels generally weak. PHYSICAL EXAMINATION: VITAL SIGNS: Temperature 97.8, heart rate 90, blood pressure 118/44, respirations 18, saturation 95% on nasal cannula. HEAD AND NECK: Normal. No JVD. No thyromegaly. CHEST: Clear. There is bilateral wheeze and crackles. ABDOMEN: Soft and nontender. CARDIAC: First sound and second sound normal. EXTREMITIES: No edema. NEUROLOGIC: Normal. LABORATORY DATA: White count 9.6, hemoglobin 9.6, hematocrit 31.4, platelets 239. Patient had the CD4 percent ____ absolute CD8 is 500 and absolute CD4 count less than 20. Chemistry: Sodium 138, potassium 4.1, chloride 104, bicarbonate 20, BUN 19, creatinine 2.8. Patient is on proBNP 10,300. IMPRESSION AND PLAN: 1. Acute respiratory distress, chronic obstructive pulmonary disease, possible pneumonia. We will get the ID consultation with Dr. Chou and see the patient in the pulmonary consult Dr. Barajas. Continue IV steroids, nebulizer treatment and continue IV antibiotics. 2. Human immunodeficiency virus. Patient has advanced age. CD4 count is low, less than 20. Advanced age. We will continue current therapy. She is off any antiretroviral ____. We will continue follow up with the specialist. 3. Cardiomyopathy, possible human immunodeficiency virus related. Continue current medications, which includes furosemide, but on hold 20 mg, Zestril 5 mg, which is on hold and we will continue followup, and metoprolol 12.5 b.i.d. We will follow up with Cardiology Dr. Veliz. 4. History of drug abuse. She is on Methadone. We will monitor blood pressure. Plan, continue current therapy. Macario Carter MD
--- NOTE | 2018-10-13 14:47 | PN ---
DATE: 10/13/2018 REASON FOR CONSULTATION: Cardiac evaluation, shortness of breath, history of HIV, EBV, CMV, HSV, COPD, asthma and heroin abuse. Possible HIV related to cardiomyopathy. The patient denies any chest pain, shortness of breath or any palpitation. Complained of pain, is not getting adequate pain medication. This note is in addition to dictated by nurse practitioner, Missy Prescott. LABORATORY DATA: Hemoglobin 9.6 absolute lymphocytes 633, CD4 count less than 20, CD4 percent is 2%. Sodium 134, potassium 5.1, chloride 103, carbon dioxide 22, anion gap of 15, BUN 76, and creatinine 2.3. IMPRESSION: A 38-year-old female with a past medical history of human immunodeficiency virus, acquired immunodeficiency syndrome, decreased CD4 count, history of Brian-Coker virus positive, cytomegalovirus, history of herpes simplex virus, chronic obstructive pulmonary disease, asthma, human immunodeficiency virus related cardiomyopathy, decreased left ventricular function. Because the patient admitted with shortness of breath, was given diuretics. BUN and creatinine elevated as well as creatinine went up. PLAN: We will hold Lasix for now. We will hold diuretics. We will start gentle hydration. Monitor closely. Also, avoid NSAID because of the renal insufficiency. Avoid any nephrotoxic medications, and we will start gentle hydration followup closely the renal function. Also, we will hold lisinopril, avoid nephrotoxic medication. We will start saline 25 mL an hour, monitor closely. Thank you Dr. Carter for providing us the opportunity in taking care of the patient. If he remains stable, consider discontinue telemetry. Repeat SMA 7 in the morning. Overall, the patient's condition is critical, long-term prognosis is guarded because of underlying comorbidity. Cara Veliz MD
--- NOTE | 2018-10-13 15:09 | US ---
Date of service: 10/13/2018 PROCEDURE: Ultrasound of the Kidneys HISTORY: [facility] COMPARISON: None available. TECHNIQUE: Sonogram of the kidneys. FINDINGS: RIGHT KIDNEY: Measures: cm. Normal in size, No stone, solid mass lesion or hydronephrosis visualized. LEFT KIDNEY: Measures: cm. Normal in size, No stone, solid mass lesion or hydronephrosis visualized. OTHER FINDINGS: None. IMPRESSION: Unremarkable renal sonogram.
[2018-10-13] MEDS: Atovaquone 750 mg/5 ml Susp UD PO SCH (16:13)
--- NOTE | 2018-10-13 21:06 | PN ---
DATE: 10/13/2018 FOLLOWUP NOTE SUBJECTIVE: In short, the patient is 38-year-old with multiple medical issues. The patient was admitted on the medical side for shortness of breath and pneumonia. The patient also has multiple medical issues including HIV. Psych consult was called for depression and anxiety. This marketing underwriter is adjusting medications for the patient today. Remeron will be increased to 45 mg at the nighttime. The patient reports that she feels depressed and hopeless. The patient reports that she has poor appetite and was not able to sleep. The patient adamantly denied thoughts of harming herself or others. Denied intent or plan. VITAL SIGNS: Stable, but temperature is 97.1 which is low, pulse is 87, blood pressure 102/68, respiration 19, oxygen saturation is 99. MEDICATIONS: Reviewed. Brovana, vitamin C, aspirin, Pulmicort, Klonopin 0.5 mg three times a day, Mepron, doxycycline, Lovenox, folic acid, Lasix, Lidoderm, and Zestril. The patient was on methadone 100 mg daily, but medical team divided this into 30 mg three times a day. The patient is on Solu-Medrol, Remeron, Protonix, Renagel, sodium chloride, and Nephro-Delores. LABORATORY DATA: Labs reviewed. Most recent was from 10/10/2018. Serology reviewed. MENTAL STATUS EXAMINATION: The patient appears to be alert, pleasant. Mood described as depressed. Affect was tearful, mood congruent. Thought process coherent and goal directed. Thought content, the patient denied visual, auditory, or tactile hallucinations. Denied paranoid ideation. The patient denied thoughts of harming herself or others. Denied intent or plan, but the patient reports she feels hopeless. IMPRESSION: Rule out major depressive disorder, rule out mood disorder due to general medical condition. PLAN: Remeron was increased. Klonopin will be continued. Methadone was redistributed 30 mg three times a day. We will find out if the patient requires to be on second antidepressant. We will follow up and advise accordingly. Thank you very much for letting me participate in care of your patient. Celia Cho MD [facility] # [id number]
[2018-10-14] MEDS: Sodium Chloride 0.9% 1,000 ML IV SCH ×2 (00:04→07:30)
[2018-10-14] MEDS: Pantoprazole 40 mg EC Tab PO SCH (06:31)
[2018-10-14] MEDS: Arformoterol 15 mcg/2 ml Inh Sol IH SCH ×2 (07:26→20:05)
[2018-10-14] MEDS: Albuterol-Ipratrop 3 mg / 0.5 (3 ml) UD IH SCH ×4 (07:26→20:05)
[2018-10-14] MEDS: Budesonide 0.5 mg/2 ml Inhal Susp UD IH SCH ×2 (07:26→20:05)
[2018-10-14 08:51] LABS: CALCIUM 8.2 mg/dL (8.4-10.5)
[2018-10-14] MEDS: Atovaquone 750 mg/5 ml Susp UD PO SCH (10:50)
[2018-10-14] MEDS: Lidocaine 5% Patch TD SCH (10:50)
[2018-10-14] MEDS: Enoxaparin 30 mg Syringe SC SCH (10:50)
[2018-10-14] MEDS: MethylPREDNISolone 40 mg Vial IV SCH ×2 (10:52→21:36)
[2018-10-14] MEDS: Multivitamin Vitamin B Complex (Nephro-Vite) Tab PO SCH (10:57)
[2018-10-14] MEDS: SYMTUZA PO SCH (10:57)
--- NOTE | 2018-10-14 11:04 | PN ---
DATE: 10/13/2018 SUBJECTIVE: The patient is comfortable. She complained about methadone, but she is better hemodynamically and breathing well. She says she feels better. PHYSICAL EXAMINATION: VITAL SIGNS: Temperature is 98.7, heart rate 89, blood pressure 111/72, and respirations 19. HEAD AND NECK: Normal. No JVD. No thyromegaly. CHEST: Bilateral wheeze, mild. CARDIAC: First second and second sound normal. ABDOMEN: Soft, obese, nontender. EXTREMITIES: No edema. NEUROLOGIC: Normal. LABORATORY DATA: Sodium 134, potassium 5.1, chloride 103, bicarb 22, BUN 76, and creatinine 2.3. Her blood sugar is 119 and her phosphorus 8.7. AST is 66, mildly elevated; ALT and alk phos is normal. IMPRESSION AND PLAN: 1. Community-acquired pneumonia. Continue doxycycline IV. Continue Mepron 1500 mg p.o. daily. 2. Chronic obstructive pulmonary disease exacerbations. Continue nebulizer treatment, IV Solu-Medrol. 3. History of congestive heart failure. The patient has hypotension, blood pressure was in the low below 80. He was given IV fluid. We will continue to monitor blood pressure. As per her transit planning manager, the patient also takes methadone reduced dose, divided 3 times a day and we will follow up on that. 4. Low CD4 count. Continue Remeron, Renagel, folic acid. Continue current treatment. Follow up clinically and we will go from there. 5. The patient has history of heroin use. She is on methadone, currently 30 mg three times a day. If blood pressure is stable, then we are going to switch it to 60 mg in the morning and 40 mg at 6 p.m. Continue current therapy. The patient is also getting gastrointestinal prophylaxis and deep venous thrombosis prophylaxis. Macario Carter MD
--- NOTE | 2018-10-14 11:58 | CP.PCM.PN ---
Subjective - Date & Time of Evaluation Date of Evaluation: 10/14/18 Time of Evaluation: 11:57 - Subjective Subjective: Nephrology Consultation Note: Assessment: stable Acute Kidney Injury (N17.9) likely hemodynamic/ATN due to hypotension and impaired renal perfusion COPD exacerbation Hyperphosphatemia HIV/AIDS (CD 4 count <20) non compliant to meds, hx of PCP pneumonia, IVDA, chronic Hep C, COPD chronic sys CHF LVEF 45% Liver Biopsy + AFB Plan No acute need for renal replacement therapy at this time. maintain hemodynamics stable. avoid hypotension. Patient not on ACEI/ARB due to BERNICE Monitor Input/Output, daily weights and renal function with basic metabolic panel continue with IVF at 50-60 ml/hr. ID, pulmonary following started phos binders 800 mg tid Dose meds/antibiotics for reduced GFR. Avoid fleets enema/magnesium based laxatives. Avoid nephrotoxins/NSAIDs/ iodinated contrast (unless needed emergently) Glycemic control Further work up/management as per primary team Thanks for allowing me to participate in care of your patient. Will follow patient with you. Please call if any Qs. had d/w team Dr Sesar Paez Office: [phone] CC: I need more methadone Reason for consult: BERNICE HPI: Pt is a 38 F with hx of HIV/AIDS (CD 4 count <20) non compliant to meds, hx of PCP pneumonia, IVDA, chronic Hep C, COPD, on methadone, CHF, presented with complaints of SOB, cough, also with BERNICE hence renal consulted No recent iodinated contrast exposure. Noted obvious episodes of low BP. pt upset about not getting enough methadone and that was her main/only concern. says will sign out from hospital soon ROS: SOB better. says making urine normally now, wasn't doing that earlier. feels anxious. denies CP. no nausea/vomitting. ROS all other negative except as mentioned in HPI Physical Examination: General Appearance: Comfortable, in no acute respiratory distress. thin built. appears chronically ill and debilitated Vitals reviewed and noted as below Head; Atraumatic, normocephalic ENT: normal mucosa EYES: Pupils are equal, round and reactive to light accommodation. Eye muscles and extraocular movement intact. Sclera is anicteric. Neck; supple no lymphadenopathy, no thyromegaly or bruit Lungs: Normal respiratory rate/effort. Breath sounds bilateral equal with few basal wheeze Heart: Normal rate. s1s2 normal. No rub or gallop. Extremities: no edema. No varicose veins Neurological: Patient is awake alert follow commands, no focal deficit Skin: Warm and dry. Normal turgor. No rash. Palpitation: Normal elasticity for age Abdomen: Abdomen is soft. Bowel sounds +. There is no abdominal tenderness, no guarding/rigidity no organomegaly. appears distended Psych: lack insight. anxious affect/mood MSK: no joint tenderness or swelling. Digits and nails normal, no deformity : kidney or bladder not palpable. Labs/imaging reviewed. Past medical history, past surgical history, family history, social history, allergy reviewed and noted as below Family hx: no hx of CKD. Rest non-contributory in past liver biopsy + AFB LVEF 45% Objective - Vital Signs/Intake and Output Vital Signs (last 24 hours): Temp Pulse Resp BP Pulse Ox 97.6 F 72 18 107/77 100 10/14/18 06:00 10/14/18 06:00 10/14/18 06:00 10/14/18 06:00 10/14/18 06:00 - Medications Medications: Current Medications Albuterol Sulfate (Albuterol 0.042% Inhal Donna (1.25mg/3ml) Ud) 1.25 mg IH DAILY PRN PRN Reason: Shortness of Breath Albuterol/Ipratropium (Duoneb 3 Mg/0.5 Mg (3 Ml) Ud) 3 ml IH QIDRESP [facility] Last Admin: 10/14/18 11:30 Dose: Not Given Arformoterol Tartrate (Brovana) 15 mcg IH [id number] [facility] Last Admin: 10/14/18 07:26 Dose: 15 mcg Ascorbic Acid (Vitamin C 500 Mg Tab) 500 mg PO DAILY [facility] Last Admin: 10/14/18 10:53 Dose: 500 mg Aspirin (Ecotrin) 81 mg PO DAILY [facility] Last Admin: 10/14/18 10:52 Dose: 81 mg Atovaquone (Mepron) 1,500 mg PO DAILY [facility]; Protocol Last Admin: 10/14/18 10:50 Dose: 1,500 mg Budesonide (Pulmicort Respules) 0.5 mg IH [id number] [facility] Last Admin: 10/14/18 07:26 Dose: 0.5 mg Clonazepam (Klonopin) 0.5 mg PO TID PRN; Protocol PRN Reason: Anxiety Last Admin: 10/14/18 06:31 Dose: 0.5 mg Enoxaparin Sodium (Lovenox) 30 mg SC DAILY [facility]; Protocol Stop: 10/16/18 23:59 Last Admin: 10/14/18 10:50 Dose: 30 mg Folic Acid (Folic Acid) 1 mg PO DAILY [facility] Last Admin: 10/14/18 10:53 Dose: 1 mg Furosemide (Lasix) 20 mg PO DAILY [facility] Home Med (Home Med) 1 unit PO DAILY [facility] Last Admin: 10/14/18 10:57 Dose: 1 unit Doxycycline Hyclate 100 mg/ (Sodium Chloride) 100 mls @ 100 mls/hr IVPB Q12 [facility]; Protocol Last Admin: 10/14/18 10:49 Dose: 100 mls/hr Sodium Chloride (Sodium Chloride 0.9%) 1,000 mls @ 50 mls/hr IV .Q20H [facility] Stop: 10/14/18 23:59 Last Admin: 10/14/18 07:30 Dose: 50 mls/hr Lidocaine (Lidoderm) 1 ea TD DAILY [facility] Last Admin: 10/14/18 10:50 Dose: 1 ea Lisinopril (Zestril) 5 mg PO DAILY [facility] Last Admin: 10/12/18 11:15 Dose: Not Given Methadone HCl (Methadone) 40 mg PO 1800 [facility] Methadone HCl (Methadone) 60 mg PO 0600 [facility] Methylprednisolone (Solu-Medrol) 20 mg IV Q12 [facility] Last Admin: 10/14/18 10:52 Dose: 20 mg Metoprolol Tartrate (Lopressor) 12.5 mg PO Q12 [facility] Last Admin: 10/12/18 11:14 Dose: Not Given Mirtazapine (Remeron) 45 mg PO HS [facility] Last Admin: 10/13/18 21:24 Dose: 45 mg Pantoprazole Sodium (Protonix Ec Tab) 40 mg PO 0600 [facility] Last Admin: 10/14/18 06:31 Dose: 40 mg Sevelamer HCl (Renagel) 800 mg PO TID [facility] Vitamin B Complex/Vit C/Folic Acid (Nephro-Delores) 1 tab PO 0800 [facility] Last Admin: 10/14/18 10:57 Dose: 1 tab - Labs Labs: 10/10/18 16:59 10/14/18 08:00
--- NOTE | 2018-10-14 12:19 | PN ---
PULMONARY PROGRESS NOTE DATE: 10/14/2018 REFERRING PHYSICIAN: Macario Carter MD SUBJECTIVE: The patient is sitting up her bedside. No acute distress. No overnight events reported. No headache, rhinitis, chest pain, abdominal pain, nausea, vomiting, diarrhea, leg pain or leg swelling reported. The patient does report improvement in shortness of breath and cough. OBJECTIVE: GENERAL: No acute distress. VITAL SIGNS: Blood pressure 107/77, pulse 72, temperature 97.6 and oxygen saturation 100%. HEENT: Moist mucous membranes. NECK: Supple. No JVD. RESPIRATORY: Positive rhonchi bilaterally. CARDIOVASCULAR: S1 and S2 audible. ABDOMEN: Soft and nontender. No distention. No organomegaly. EXTREMITIES: No bilateral lower extremity edema. NEUROLOGIC: Awake, alert and verbal. Follows commands. MEDICATIONS: Reviewed. Albuterol inhaler 1.25 mg p.r.n., DuoNeb 3 mL inhalation four times a day, Brovana 15 mcg inhalation every 12 hours, vitamin C 500 mg daily, aspirin 81 mg daily, Mepron 1500 mg daily, Pulmicort 0.5 mg every 12 hours, Klonopin 0.5 mg three times a day p.r.n., doxycycline 100 mg every 12 hours, Lovenox 30 mg subcutaneously daily, folic acid 1 mg p.o. daily, Lasix 40 mg p.o. daily, lidocaine patch topically to affected area, lisinopril 5 mg daily, methadone 40 mg in the evening and 60 mg in the morning, Solu-Medrol 20 mg every 12 hours, Lopressor 12.5 mg every 12 hours, Remeron 45 mg at bedtime, Protonix 40 mg daily, Renagel 100 mg three times a day, sodium chloride 1000 mL at 50 mL per hour, Nephro-Delores one tab daily. LABORATORY DATA: Reviewed. Sodium 130, potassium 4.1, chloride 105, carbon dioxide 24, anion gap 13, BUN 73, creatinine 1.5, GFR 39, random glucose 112, calcium 8.2, phosphors 4.2, magnesium 1.8. DIAGNOSTIC DATA: Renal ultrasound, unremarkable renal sonogram. IMPRESSION AND PLAN: Severe obstructive lung disease, history of acquired immune deficiency syndrome, history of pneumocystis carinii pneumonia, methadone dependent, renal insufficiency, asthma, congestive heart failure, pulmonary nodules. The patient has a history of aspergillosis. Pulmonary point of view, discussed with the patient in depth this morning pulmonary nodules. Discussed the potential for pulmonary nodules to be cancerous, discussed the patient options of biopsy or follow up with CT scan in three months. The patient reports that she would like to follow up with pulmonary nodules in 3 months with a followup CT scan of the chest understanding risk versus benefits. Continue diuretics, continue inhaled bronchodilators, steroids, antibiotic therapy, gastric prophylaxis, deep venous thrombosis prophylaxis. Continue followup with Infectious Disease. This patient was seen and examined with Dr. Barajas. Discussed assessment and plan as described above. We will follow with you. Jose Johnson APN Cara Barajas MD [facility]
--- NOTE | 2018-10-14 13:49 | CP.PCM.PN ---
<Gatito Hanna - Last Filed: 10/14/18 13:46> Subjective - Date & Time of Evaluation Date of Evaluation: 10/14/18 Time of Evaluation: 07:15 - Subjective Subjective: ID progress note Patient with improvement of shortness of breath. Patient is able to tolerate diet. Denies chest pain, nausea, vomiting, diarrhea, fever, chills. Objective - Vital Signs/Intake and Output Vital Signs (last 24 hours): Temp Pulse Resp BP Pulse Ox 97.6 F 72 18 107/77 100 10/14/18 06:00 10/14/18 06:00 10/14/18 06:00 10/14/18 06:00 10/14/18 06:00 - Medications Medications: Current Medications Albuterol Sulfate (Albuterol 0.042% Inhal Donna (1.25mg/3ml) Ud) 1.25 mg IH DAILY PRN PRN Reason: Shortness of Breath Albuterol/Ipratropium (Duoneb 3 Mg/0.5 Mg (3 Ml) Ud) 3 ml IH QIDRESP [facility] Last Admin: 10/14/18 11:30 Dose: Not Given Arformoterol Tartrate (Brovana) 15 mcg IH [id number] [facility] Last Admin: 10/14/18 07:26 Dose: 15 mcg Ascorbic Acid (Vitamin C 500 Mg Tab) 500 mg PO DAILY [facility] Last Admin: 10/14/18 10:53 Dose: 500 mg Aspirin (Ecotrin) 81 mg PO DAILY [facility] Last Admin: 10/14/18 10:52 Dose: 81 mg Atovaquone (Mepron) 1,500 mg PO DAILY [facility]; Protocol Last Admin: 10/14/18 10:50 Dose: 1,500 mg Budesonide (Pulmicort Respules) 0.5 mg IH [id number] [facility] Last Admin: 10/14/18 07:26 Dose: 0.5 mg Clonazepam (Klonopin) 0.5 mg PO TID PRN; Protocol PRN Reason: Anxiety Last Admin: 10/14/18 06:31 Dose: 0.5 mg Enoxaparin Sodium (Lovenox) 30 mg SC DAILY [facility]; Protocol Stop: 10/16/18 23:59 Last Admin: 10/14/18 10:50 Dose: 30 mg Folic Acid (Folic Acid) 1 mg PO DAILY [facility] Last Admin: 10/14/18 10:53 Dose: 1 mg Furosemide (Lasix) 20 mg PO DAILY [facility] Home Med (Home Med) 1 unit PO DAILY [facility] Last Admin: 10/14/18 10:57 Dose: 1 unit Sodium Chloride (Sodium Chloride 0.9%) 1,000 mls @ 50 mls/hr IV .Q20H [facility] Stop: 10/14/18 23:59 Last Admin: 10/14/18 07:30 Dose: 50 mls/hr Lidocaine (Lidoderm) 1 ea TD DAILY [facility] Last Admin: 10/14/18 10:50 Dose: 1 ea Lisinopril (Zestril) 5 mg PO DAILY [facility] Last Admin: 10/12/18 11:15 Dose: Not Given Methadone HCl (Methadone) 40 mg PO 1800 [facility] Methadone HCl (Methadone) 60 mg PO 0600 [facility] Methylprednisolone (Solu-Medrol) 20 mg IV Q12 [facility] Last Admin: 10/14/18 10:52 Dose: 20 mg Metoprolol Tartrate (Lopressor) 12.5 mg PO Q12 [facility] Last Admin: 10/12/18 11:14 Dose: Not Given Mirtazapine (Remeron) 45 mg PO HS [facility] Last Admin: 10/13/18 21:24 Dose: 45 mg Pantoprazole Sodium (Protonix Ec Tab) 40 mg PO 0600 [facility] Last Admin: 10/14/18 06:31 Dose: 40 mg Sevelamer HCl (Renagel) 800 mg PO TID [facility] Vitamin B Complex/Vit C/Folic Acid (Nephro-Delores) 1 tab PO 0800 [facility] Last Admin: 10/14/18 10:57 Dose: 1 tab - Labs Labs: 10/10/18 16:59 10/14/18 08:00 - Constitutional Appears: Non-toxic, No Acute Distress - Head Exam Head Exam: ATRAUMATIC, NORMAL INSPECTION, NORMOCEPHALIC - ENT Exam ENT Exam: Mucous Membranes Moist - Respiratory Exam Respiratory Exam: Decreased Breath Sounds, NORMAL BREATHING PATTERN. absent: Rales, Rhonchi, Wheezes - Cardiovascular Exam Cardiovascular Exam: RRR, +S1, +S2 - GI/Abdominal Exam GI & Abdominal Exam: Soft, Normal Bowel Sounds. absent: Tenderness - Extremities Exam Extremities Exam: Normal Inspection. absent: Pedal Edema - Neurological Exam Neurological Exam: Alert, Awake, Oriented x3 - Psychiatric Exam Psychiatric exam: Normal Affect, Normal Mood - Skin Skin Exam: Intact, Normal Color, Warm Assessment and Plan - Assessment and Plan (Free Text) Plan: COPD exacerbation AIDS, CD4 < 20 Pulmonary nodules, hx of aspergillosis Mycobacterium positive Liver biopsy Systolic CHF Plan Continue Doxycycline Continue Mepron and Symtuza Monitoring of pulmonary nodules with CT scan in 3 months Consider adrenal insufficiency workup due to persistent hypotension Continue IVF, monitor for fluid overload CD4 count <20, Viral load elevated Fungitell, Histoplasma antigen, Galacomannan, and Crypto serum antigen pending [facility], PGY[facility] <Manpreet Granado - Last Filed: 10/14/18 23:00> Objective - Vital Signs/Intake and Output Vital Signs (last 24 hours): Temp Pulse Resp BP Pulse Ox 97.6 F 72 18 107/77 100 10/14/18 06:00 10/14/18 06:00 10/14/18 06:00 10/14/18 06:00 10/14/18 06:00 - Medications Medications: Current Medications Albuterol Sulfate (Albuterol 0.042% Inhal Donna (1.25mg/3ml) Ud) 1.25 mg IH DAILY PRN PRN Reason: Shortness of Breath Albuterol/Ipratropium (Duoneb 3 Mg/0.5 Mg (3 Ml) Ud) 3 ml IH QIDRESP [facility] Last Admin: 10/14/18 20:05 Dose: 3 ml Arformoterol Tartrate (Brovana) 15 mcg IH [id number] [facility] Last Admin: 10/14/18 20:05 Dose: 15 mcg Ascorbic Acid (Vitamin C 500 Mg Tab) 500 mg PO DAILY [facility] Last Admin: 10/14/18 10:53 Dose: 500 mg Aspirin (Ecotrin) 81 mg PO DAILY [facility] Last Admin: 10/14/18 10:52 Dose: 81 mg Atovaquone (Mepron) 1,500 mg PO DAILY [facility]; Protocol Last Admin: 10/14/18 10:50 Dose: 1,500 mg Budesonide (Pulmicort Respules) 0.5 mg IH [id number] [facility] Last Admin: 10/14/18 20:05 Dose: 0.5 mg Clonazepam (Klonopin) 1 mg PO BID PRN; Protocol PRN Reason: Anxiety Enoxaparin Sodium (Lovenox) 30 mg SC DAILY [facility]; Protocol Stop: 10/16/18 23:59 Last Admin: 10/14/18 10:50 Dose: 30 mg Folic Acid (Folic Acid) 1 mg PO DAILY [facility] Last Admin: 10/14/18 10:53 Dose: 1 mg Home Med (Home Med) 1 unit PO DAILY [facility] Last Admin: 10/14/18 10:57 Dose: 1 unit Sodium Chloride (Sodium Chloride 0.9%) 1,000 mls @ 50 mls/hr IV .Q20H [facility] Stop: 10/14/18 23:59 Last Admin: 10/14/18 07:30 Dose: 50 mls/hr Lidocaine (Lidoderm) 1 ea TD DAILY [facility] Last Admin: 10/14/18 10:50 Dose: 1 ea Lisinopril (Zestril) 5 mg PO DAILY [facility] Last Admin: 10/12/18 11:15 Dose: Not Given Methadone HCl (Methadone) 40 mg PO 1800 [facility] Last Admin: 10/14/18 18:19 Dose: 40 mg Methadone HCl (Methadone) 60 mg PO 0600 [facility] Methylprednisolone (Solu-Medrol) 20 mg IV Q12 [facility] Last Admin: 10/14/18 21:36 Dose: 20 mg Metoprolol Tartrate (Lopressor) 12.5 mg PO Q12 [facility] Last Admin: 10/12/18 11:14 Dose: Not Given Mirtazapine (Remeron) 45 mg PO HS [facility] Last Admin: 10/14/18 21:34 Dose: 45 mg Pantoprazole Sodium (Protonix Ec Tab) 40 mg PO 0600 [facility] Last Admin: 10/14/18 06:31 Dose: 40 mg Sevelamer HCl (Renagel) 800 mg PO TID [facility] Last Admin: 10/14/18 18:19 Dose: 800 mg Vitamin B Complex/Vit C/Folic Acid (Nephro-Delores) 1 tab PO 0800 [facility] Last Admin: 10/14/18 10:57 Dose: 1 tab - Labs Labs: 10/10/18 16:59 10/14/18 08:00 Assessment and Plan - Assessment and Plan (Free Text) Plan: Infectious diseases Attending Physician Attestation Patient seen and examined, discussed with veterinary medical officer. I have reviewed the patient's history of present illness, past medical, social, personal and family histories, pertinent physical exam findings, course so far in this hospital admission, pertinent laboratory and imaging results. I agree with the above findings, assessment and plan. In addition, continue Doxycycline for acute COPD exacerbation. Follow up Galactomman, urine Histoplasma Ag, serum Crypt Ag for pulmonary nodules. The nodules have decreased in size compared to 07/2018, but etiology still not determined. This is a patient with AIDS, poorly compliant with current CD4 count <20, HIV VL high. She previously had mycobacteria found on liver biopsy, but current liver enzymes are normal. Also hesitant to treat for ARCELIA with drug-drug interactions, especially with her current cART. Overall prognosis is poor. Continue PJP prophylaxis. Suggest adrenal insufficiency work up for chronic low blood pressure.
--- NOTE | 2018-10-14 22:08 | PN ---
DATE: 10/14/2018 FOLLOWUP NOTE SUBJECTIVE: The patient was seen today. The patient presented with some improvement with her presentation. The patient put makeup on today. The patient still appears to be depressed and tearful. The patient reported that she did not sleep last night. The patient also complained of anxiety. This global technical writer educated the patient about plan. This global technical writer increased the dose of Remeron to 45 mg yesterday. The patient might benefit from increasing the dose of Klonopin to 1 mg twice a day from 0.5 mg three times a day. The patient agreed with that plan. The patient denied any psychotic symptoms. Denied hearing voices. Denied seeing things. Denied paranoid ideations. OBJECTIVE: Vital signs are stable. MEDICATIONS: Medications are reviewed. Brovana, vitamin C, aspirin, Mepron, Pulmicort, Klonopin 1 mg twice a day will be started, Lovenox, folic acid. Home medications: Lidoderm, Zestril, methadone 100 mg daily, Solu-Medrol, Lopressor, Remeron 45 mg at the nighttime, Protonix, Renagel, sodium chloride, Nephro-Delores. LABORATORY DATA: Labs reviewed. Most recent was from 10/10/2018. MENTAL STATUS EXAMINATION: The patient presented to be alert and oriented, pleasant, cooperative. Wears makeup on. Intermittent eye contact. Mood described as depressed. Affect was constricted. Thought process seemed to be coherent and goal directed. Thought content, the patient denied visual, auditory or tactile hallucinations, but reported to feel hopeless, helpless and worthless. The patient adamantly denied thoughts of harming herself or others. Denied intents or plan. Insight and judgment seems to be fair. Impulses are well controlled. IMPRESSION: Rule out major depressive disorder, rule out mood disorder due to general medical condition. PLAN: Klonopin was increased to 1 mg twice a day for anxiety and Remeron 45 mg at the nighttime for depression and insomnia. The patient is on methadone. Dr. Gutierrez will follow up on this patient and advise accordingly. The patient was offered admission to the psychiatric inpatient unit, but the patient declined that offer. We will follow up and advise. Thank you very much for letting me to participate in care of your patient. Celia Cho MD [facility] # [id number]
[2018-10-15] MEDS: Pantoprazole 40 mg EC Tab PO SCH (06:42)
[2018-10-15 08:09] VITALS: BP 113/80; PULSE 96; RESP 18; TEMP 99.2; O2SAT 97
[2018-10-15 09:24] LABS: ALB/GLOB RATIO 0.7 (1.1-1.8); CALCIUM 8.9 mg/dL (8.4-10.5)
[2018-10-15] MEDS ORDERED: Ergocalciferol 50,000 Intl Units Cap PO SCH (09:45)
[2018-10-15] MEDS: Lidocaine 5% Patch TD SCH (10:21)
[2018-10-15] MEDS: Enoxaparin 30 mg Syringe SC SCH ×2 (10:21→10:29)
[2018-10-15] MEDS: Multivitamin Vitamin B Complex (Nephro-Vite) Tab PO SCH (10:22)
[2018-10-15] MEDS: MethylPREDNISolone 40 mg Vial IV SCH (10:22)
[2018-10-15] MEDS: Albuterol-Ipratrop 3 mg / 0.5 (3 ml) UD IH SCH (10:30)
[2018-10-15] MEDS: Arformoterol 15 mcg/2 ml Inh Sol IH SCH (10:30)
--- NOTE | 2018-10-15 12:45 | CP.PCM.PN ---
Subjective - Date & Time of Evaluation Date of Evaluation: 10/15/18 Time of Evaluation: 12:45 - Subjective Subjective: Nephrology Consultation Note: Assessment: stable Acute Kidney Injury (N17.9) likely hemodynamic/ATN due to hypotension and impaired renal perfusion COPD exacerbation Hyperphosphatemia HIV/AIDS (CD 4 count <20) non compliant to meds, hx of PCP pneumonia, IVDA, chronic Hep C, COPD chronic sys CHF LVEF 45% Liver Biopsy + AFB Plan No acute need for renal replacement therapy at this time. maintain hemodynamics stable. avoid hypotension. Patient not on ACEI/ARB due to BERNICE Monitor Input/Output, daily weights and renal function with basic metabolic panel ID, pulmonary following started weekly vit D Dose meds/antibiotics for reduced GFR. Avoid fleets enema/magnesium based laxati ves. Avoid nephrotoxins/NSAIDs/ iodinated contrast (unless needed emergently) Glycemic control Further work up/management as per primary team Thanks for allowing me to participate in care of your patient. Will follow patient with you. Please call if any Qs. had d/w team Dr Sesar Paez Office: [phone] CC: I need more methadone Reason for consult: BERNICE HPI: Pt is a 38 F with hx of HIV/AIDS (CD 4 count <20) non compliant to meds, hx of PCP pneumonia, IVDA, chronic Hep C, COPD, on methadone, CHF, presented with complaints of SOB, cough, also with BERNICE hence renal consulted No recent iodinated contrast exposure. Noted obvious episodes of low BP. pt upset about not getting enough methadone and that was her main/only concern. says will sign out from hospital soon ROS: SOB better. says making urine normally now, wasn't doing that earlier. feels anxious. denies CP. no nausea/vomitting. ROS all other negative except as mentioned in HPI Physical Examination: General Appearance: Comfortable, in no acute respiratory distress. thin built. appears chronically ill and debilitated Vitals reviewed and noted as below Head; Atraumatic, normocephalic ENT: normal mucosa EYES: Pupils are equal, round and reactive to light accommodation. Eye muscles and extraocular movement intact. Sclera is anicteric. Neck; supple no lymphadenopathy, no thyromegaly or bruit Lungs: Normal respiratory rate/effort. Breath sounds bilateral equal with few basal wrackle Heart: Normal rate. s1s2 normal. No rub or gallop. Extremities: no edema. No varicose veins Neurological: Patient is awake alert follow commands, no focal deficit Skin: Warm and dry. Normal turgor. No rash. Palpitation: Normal elasticity for age Abdomen: Abdomen is soft. Bowel sounds +. There is no abdominal tenderness, no guarding/rigidity no organomegaly. appears distended Psych: lack insight. anxious affect/mood MSK: no joint tenderness or swelling. Digits and nails normal, no deformity : kidney or bladder not palpable. Labs/imaging reviewed. Past medical history, past surgical history, family history, social history, allergy reviewed and noted as below Family hx: no hx of CKD. Rest non-contributory in past liver biopsy + AFB LVEF 45% Objective - Vital Signs/Intake and Output Vital Signs (last 24 hours): Temp Pulse Resp BP Pulse Ox 99.2 F 96 H 18 113/80 97 10/15/18 06:00 10/15/18 06:00 10/15/18 06:00 10/15/18 06:00 10/15/18 06:00 - Medications Medications: Current Medications Albuterol Sulfate (Albuterol 0.042% Inhal Donna (1.25mg/3ml) Ud) 1.25 mg IH DAILY PRN PRN Reason: Shortness of Breath Albuterol/Ipratropium (Duoneb 3 Mg/0.5 Mg (3 Ml) Ud) 3 ml IH QIDRESP [facility] Last Admin: 10/15/18 10:30 Dose: Not Given Arformoterol Tartrate (Brovana) 15 mcg IH [id number] [facility] Last Admin: 10/15/18 10:30 Dose: Not Given Ascorbic Acid (Vitamin C 500 Mg Tab) 500 mg PO DAILY [facility] Last Admin: 10/15/18 10:23 Dose: 500 mg Aspirin (Ecotrin) 81 mg PO DAILY [facility] Last Admin: 10/15/18 10:20 Dose: 81 mg Budesonide (Pulmicort Respules) 0.5 mg IH [id number] [facility] Last Admin: 10/14/18 20:05 Dose: 0.5 mg Clonazepam (Klonopin) 1 mg PO BID PRN; Protocol PRN Reason: Anxiety Last Admin: 10/15/18 10:50 Dose: 1 mg Enoxaparin Sodium (Lovenox) 30 mg SC DAILY [facility]; Protocol Stop: 10/16/18 23:59 Last Admin: 10/15/18 10:29 Dose: Not Given Ergocalciferol (Drisdol 50,000 Intl Units Cap) 1 cap PO Q7D [facility] Last Admin: 10/15/18 10:20 Dose: 1 cap Folic Acid (Folic Acid) 1 mg PO DAILY [facility] Last Admin: 10/15/18 10:20 Dose: 1 mg Home Med (Home Med) 1 unit PO DAILY [facility] Last Admin: 10/14/18 10:57 Dose: 1 unit Lidocaine (Lidoderm) 1 ea TD DAILY [facility] Last Admin: 10/15/18 10:21 Dose: 1 ea Lisinopril (Zestril) 5 mg PO DAILY [facility] Last Admin: 10/12/18 11:15 Dose: Not Given Methadone HCl (Methadone) 40 mg PO 1800 [facility] Last Admin: 10/14/18 18:19 Dose: 40 mg Methadone HCl (Methadone) 60 mg PO 0600 [facility] Last Admin: 10/15/18 06:40 Dose: 60 mg Methylprednisolone (Solu-Medrol) 20 mg IV Q12 [facility] Last Admin: 10/15/18 10:22 Dose: 20 mg Metoprolol Tartrate (Lopressor) 12.5 mg PO Q12 [facility] Last Admin: 10/12/18 11:14 Dose: Not Given Mirtazapine (Remeron) 45 mg PO HS [facility] Last Admin: 10/14/18 21:34 Dose: 45 mg Pantoprazole Sodium (Protonix Ec Tab) 40 mg PO 0600 [facility] Last Admin: 10/15/18 06:42 Dose: 40 mg Sevelamer HCl (Renagel) 800 mg PO TID [facility] Last Admin: 10/15/18 10:22 Dose: 800 mg Vitamin B Complex/Vit C/Folic Acid (Nephro-Delores) 1 tab PO 0800 [facility] Last Admin: 10/15/18 10:22 Dose: 1 tab - Labs Labs: 10/10/18 16:59 10/15/18 06:00
--- NOTE | 2018-10-15 14:05 | CP.PCM.PN ---
Subjective - Date & Time of Evaluation Date of Evaluation: 10/15/18 Time of Evaluation: 14:03 - Subjective Subjective: Scripts for the following medications written as per Dr. Gutierrez: Remeron 45 mg PO QHS #14 Klonipin 1 mg PO BID PRN #28 Objective - Vital Signs/Intake and Output Vital Signs (last 24 hours): Temp Pulse Resp BP Pulse Ox 99.2 F 96 H 18 113/80 97 10/15/18 06:00 10/15/18 06:00 10/15/18 06:00 10/15/18 06:00 10/15/18 06:00 - Medications Medications: Current Medications Albuterol Sulfate (Albuterol 0.042% Inhal Donna (1.25mg/3ml) Ud) 1.25 mg IH DAILY PRN PRN Reason: Shortness of Breath Albuterol/Ipratropium (Duoneb 3 Mg/0.5 Mg (3 Ml) Ud) 3 ml IH QIDRESP [facility] Last Admin: 10/15/18 10:30 Dose: Not Given Arformoterol Tartrate (Brovana) 15 mcg IH [id number] [facility] Last Admin: 10/15/18 10:30 Dose: Not Given Ascorbic Acid (Vitamin C 500 Mg Tab) 500 mg PO DAILY [facility] Last Admin: 10/15/18 10:23 Dose: 500 mg Aspirin (Ecotrin) 81 mg PO DAILY [facility] Last Admin: 10/15/18 10:20 Dose: 81 mg Budesonide (Pulmicort Respules) 0.5 mg IH [id number] [facility] Last Admin: 10/14/18 20:05 Dose: 0.5 mg Clonazepam (Klonopin) 1 mg PO BID PRN; Protocol PRN Reason: Anxiety Last Admin: 10/15/18 10:50 Dose: 1 mg Enoxaparin Sodium (Lovenox) 30 mg SC DAILY [facility]; Protocol Stop: 10/16/18 23:59 Last Admin: 10/15/18 10:29 Dose: Not Given Ergocalciferol (Drisdol 50,000 Intl Units Cap) 1 cap PO Q7D [facility] Last Admin: 10/15/18 10:20 Dose: 1 cap Folic Acid (Folic Acid) 1 mg PO DAILY [facility] Last Admin: 10/15/18 10:20 Dose: 1 mg Home Med (Home Med) 1 unit PO DAILY [facility] Last Admin: 10/14/18 10:57 Dose: 1 unit Lidocaine (Lidoderm) 1 ea TD DAILY [facility] Last Admin: 10/15/18 10:21 Dose: 1 ea Lisinopril (Zestril) 5 mg PO DAILY [facility] Last Admin: 10/12/18 11:15 Dose: Not Given Methadone HCl (Methadone) 40 mg PO 1800 [facility] Last Admin: 10/14/18 18:19 Dose: 40 mg Methadone HCl (Methadone) 60 mg PO 0600 [facility] Last Admin: 10/15/18 06:40 Dose: 60 mg Methylprednisolone (Solu-Medrol) 20 mg IV Q12 [facility] Last Admin: 10/15/18 10:22 Dose: 20 mg Metoprolol Tartrate (Lopressor) 12.5 mg PO Q12 [facility] Last Admin: 10/12/18 11:14 Dose: Not Given Mirtazapine (Remeron) 45 mg PO HS [facility] Last Admin: 10/14/18 21:34 Dose: 45 mg Pantoprazole Sodium (Protonix Ec Tab) 40 mg PO 0600 [facility] Last Admin: 10/15/18 06:42 Dose: 40 mg Vitamin B Complex/Vit C/Folic Acid (Nephro-Delores) 1 tab PO 0800 [facility] Last Admin: 10/15/18 10:22 Dose: 1 tab - Labs Labs: 10/10/18 16:59 10/15/18 06:00
--- NOTE | 2018-10-15 15:04 | PN ---
DATE: 10/15/2018 SUBJECTIVE: The patient is in bed, in no acute distress, nontoxic. PHYSICAL EXAMINATION: VITAL SIGNS: Temperature is 99, blood pressure is 113/80, respiratory rate of 18, heart rate of 72. Examination of HEENT is unremarkable. NECK: Supple. LUNGS: Have decreased breath sounds. HEART: Normal S1, S2. ABDOMEN: Soft, nontender. LABORATORY EXAMINATION: Reveals a white count of 9.6, hemoglobin of 9, platelets of 239. BUN of 55, creatinine of 1.4. Urinalysis is noted. T-cell percentage is 2% with an absolute count less than 20. HIV PCR is 4.18. Blood cultures are negative. ASSESSMENT AND PLAN: A 38-year-old female with end-stage acquired immune deficiency syndrome, end-stage chronic obstructive pulmonary disease, pulmonary nodules, history of aspergillosis, liver biopsy positive for Mycobacterium with systolic congestive heart failure. The patient is currently on Symtuza, Mepron and doxycycline. The patient has been noncompliant with all of her medications in the past. Recommend the patient to be in a position where she is supervised. Cheikh Chou MD
--- NOTE | 2018-10-16 19:47 | PN ---
DATE: 10/16/2018 SUBJECTIVE: Veronica Ruiz is doing better. She seems better. Breathing better. No chest pain, no shortness of breath. She has ____ more morphine, for more methadone, otherwise she seems stable. PHYSICAL EXAMINATION: On 10/14/2018, VITAL SIGNS: Temperature 97.6, heart rate 72, blood pressure 107/77, respirations 18, and saturations 100%. HEAD AND NECK: Normal. No JVD. No thyromegaly. CHEST: Shows bilateral wheeze mild. CARDIAC: First sound and second sound normal. ABDOMEN: Soft, scaphoid. EXTREMITIES: No edema. NEUROLOGIC: Normal. LABORATORY STUDIES: She had sodium 138, potassium 4.1, chloride 105, bicarb 24, BUN 73, and creatinine 1.5. Blood sugar 112, and calcium 8.2. IMPRESSION AND PLAN: 1. Acute respiratory failure, is better now. Continue inhaled bronchodilator with steroids intravenous and intravenous antibiotics as per Infectious Disease consult. 2. Advanced acquired immune deficiency syndrome, human immunodeficiency virus. The patient has low CD4 20 or below. 3. Renal insufficiency, acute, improving. Monitor electrolytes. 4. Chronic heroin abuse, on methadone. We will give methadone 60 mg in the morning, 40 p.m. 5. Hypotension is better now. Continue current therapy. 6. Congestive heart failure, it is probably human immunodeficiency virus-related, nonischemic. Continue Lasix, continue lisinopril, and we will follow up clinically. Continue current therapy for now. Follow up with the other senior consultant. Macario Carter MD
--- NOTE | 2018-10-17 06:29 | DS ---
HISTORY OF PRESENT ILLNESS: Seen by ID Consult today; she is off antibiotics. She is feeling better. She has no complaints. She wants to go home; otherwise, she seems doing very well. PHYSICAL EXAMINATION: When discharged is as follows: VITAL SIGNS: Temperature is 98, heart rate 96, blood pressure 115/80, respirations HEAD AND NECK: Normal. No JVD. No thyromegaly. CHEST: Clear, mild rhonchi, otherwise negative. ABDOMEN: Soft and nontender. EXTREMITIES: No edema. NEUROLOGIC: Normal. LABORATORY DATA: The patient had laboratory studies; blood culture x2 is negative. She also had chest CT done when she came in and it shows the following; numerous bilateral pulmonary irregular nodules all of which predominantly had markedly decreased in size; resolution of bilateral effusion, small pericardial effusions. Also, the patient while in the hospital, she had been seen by Infectious Disease, Dr. Manpreet Granado; also pulmonary doctor, Dr. Barajas; and also kidney doctor, Dr. Sesar Paez; also seen by psychiatry Dr. Yang. The patient is stable. No new complaint. DISCHARGE DIAGNOSES: 1. Acute chronic obstructive pulmonary disease exacerbation, superimposed with possible pneumonia; she got better with IV antibiotics. She will be off antibiotic on discharge. Follow up in the [facility] as outpatient. 2. Congestive heart failure, nonischemic. 3. Chronic anxiety and panic attacks. 4. Advanced age. PLAN: 1. To continue current treatment, follow up clinically. 2. Heroin abuse disorder, continue methadone. The patient will be maintained on Klonopin, HIV medicine, Protonix, metoprolol 12.5 mg b.i.d., methadone 100, Megace, Zestril 5 mg, Harvoni, Lasix 20 b.i.d., folic acid 1 mg daily, Pulmicort twice a day, Mepron 750 b.i.d., aspirin 81, vitamin C 500 mg once a day, nebulizer treatment, Remeron 45 p.o. at bedtime. Continue current therapy and also Medrol Dosepak Macario Carter MD [facility] # [id number]
--- NOTE | 2018-10-17 08:55 | PN ---
DATE: 10/14/2018 REASON FOR CONSULTATION: Cardiac evaluation, shortness of breath, history of HIV, EBV, CMV, COPD, and HSV and AIDS admitted with shortness of breath and HIV-related cardiomyopathy. SUBJECTIVE: The patient denies any chest pain but complains of not getting adequate pain medication on methadone program.. PHYSICAL EXAMINATION: VITAL SIGNS: Temperature afebrile, heart rate 72, blood pressure 107/77. HEENT: PERRLA. Extraocular muscles are intact. NECK: Supple. No carotid or thyromegaly. CHEST: Clear to auscultation. HEART: S1 and S2, regular. ABDOMEN: Soft. EXTREMITIES: Clubbing and cyanosis negative. LABORATORY DATA: Blood workup as follows. WBC 9.6, hemoglobin 9.6, hematocrit 31.4, platelet count 239. Chemistry showed sodium 130, potassium 4.1, chloride 105, carbon dioxide of 24, anion gap of 13, BUN 73 and creatinine 1.5. IMPRESSION: A 38-year-old female with past medical history significant for human immunodeficiency virus, acquired immunodeficiency syndrome, low CD4 count, history of Brian-Coker virus, history of cytomegalovirus, history of herpes simplex virus, history of chronic obstructive pulmonary disease, asthma, renal insufficiency, status post acute kidney injury improving, human immunodeficiency virus-related cardiomyopathy. RECOMMENDATIONS: Avoid nephrotoxic medication, adequate analgesia. Diuretic was held because of acute kidney injury. Consider p.r.n. diuretics. Continue baby aspirin. Continue metoprolol 12.5 mg daily. Overall, the patient's critical long-term prognosis is extremely guarded because of underlying comorbidity. Renal function improved from creatinine 2.3 to 1.5 today, from yesterday's they went up to 2.3. We will discontinue IV fluid tonight after 8:00pm to prevent further going into CHF. Cara Veliz MD [facility]
== END 2018-10-15 14:41 | disposition home or self-care (01) | DRG 710 ==
LOC: ED 13:43 → ERH 17:46 → 2RNO 10-11 01:31 → 5RNO 10-13 23:55
PROVIDERS: ADMIT Internal Medicine; ATTEND Internal Medicine
PROC: 05H633Z Insertion of Infusion Device into Left Subclavian Vein, Percutaneous Approach (ICD-10-PCS; 2018-10-11)
PROC: 3E0F7GC Introduction of Other Therapeutic Substance into Respiratory Tract, Via Natural or Artificial Opening (ICD-10-PCS; principal; 2018-10-14)
DX: J18.9 Pneumonia, unspecified organism (principal); J96.00 Acute respiratory failure, unspecified whether with hypoxia or hypercapnia; B20 Human immunodeficiency virus [HIV] disease; I50.22 Chronic systolic (congestive) heart failure; N17.0 Acute kidney failure with tubular necrosis; J44.1 Chronic obstructive pulmonary disease with (acute) exacerbation; J44.0 Chronic obstructive pulmonary disease with (acute) lower respiratory infection; I43 Cardiomyopathy in diseases classified elsewhere; B18.2 Chronic viral hepatitis C; F11.10 Opioid abuse, uncomplicated; I27.20 Pulmonary hypertension, unspecified; I95.9 Hypotension, unspecified; M41.9 Scoliosis, unspecified; F41.0 Panic disorder [episodic paroxysmal anxiety]; E83.39 Other disorders of phosphorus metabolism; K21.9 Gastro-esophageal reflux disease without esophagitis; F17.210 Nicotine dependence, cigarettes, uncomplicated; Z99.81 Dependence on supplemental oxygen; Z91.19 Patient's noncompliance with other medical treatment and regimen; Z91.14 Patient's other noncompliance with medication regimen